=== PATIENT | female | born 1960 | race Caucasian/White ===

== ENCOUNTER 2017-01-16 02:31 | Inpatient (IN) | payer BC, OTHER ==
[~2017-01-16] VITALS: Ht 160 cm; Wt 76.7 kg
[2017-01-16] VITALS (9 sets, daily range): BP systolic 91–134; BP diastolic 61–79; PULSE 75–91; TEMP 36.7–37.1; O2SAT 92–97; BMI 29.7
[2017-01-16] MEDS ORDERED: LORAZEPAM 2 MG/ML 1 ML VIAL IV STA (02:43)
[2017-01-16] MEDS ORDERED: MoRPHine SULFATE 4 MG/ML 1 ML CARP\\VIAL IV ONE (03:30)
[2017-01-16 03:45] LABS: BASO % 0.3 %; BASO ABS # 0.04 K/uL (0-0.2); COMPLETE YES; EOS % 0.7 %; HEMATOCRIT 37.9 % (37-47); IG% 0.7 %; LYMPH % 26.4 %; MEAN CELL VOLUME 85.7 fL (80-100); MEAN CORPUSCULAR HGB CONC 33.8 g/dl (32-36); MEAN PLATELET VOLUME 10.8 fL (7.4-10.4); MONO % 11.4 %; NEUT % 60.5 %; PLATELET COUNT 232 K/uL (130-400); RED BLOOD COUNT 4.42 M/uL (4.2-5.4)
[2017-01-16 03:57] LABS: PROTHROMBIN TIME (PATIENT) 10.7 SECONDS (9.0-12.0)
[2017-01-16 04:03] LABS: BUN/CREATININE RATIO 15.4 (10-20); CALCIUM 8.5 mg/dl (8.5-10.1); CREATININE 1.25 mg/dl (0.60-1.20); POTASSIUM 3.5 mmol/L (3.5-5.1)
[2017-01-16 04:05] LABS: ALB/GLOB RATIO 1.1 (0.9-2)
[2017-01-16 04:13] LABS: BETA-HYDROXYBUTYRATE 1.36 mg/dL (0.2-2.81)
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
[2017-01-16] MEDS ORDERED: INSULIN GLARGINE SOLOSTAR 100 UNITS/ML 3 ML PEN SC STA (06:30)
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
[2017-01-16] MEDS ORDERED: SODIUM CHLORIDE 0.9% 1000ML 1,000 ML IV SCH ×2 (06:45→12:57)
[2017-01-16] MEDS ORDERED: CLOP1TAB15 PO (06:47)
[2017-01-16] MEDS ORDERED: PREG100C PO (06:48)
[2017-01-16] MEDS ORDERED: FURO-85 PO (06:48)
[2017-01-16] MEDS ORDERED: LISI40TA PO (06:48)
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
--- NOTE | 2017-01-16 06:49 | DIAGNOSTIC IMAGING REPORT ---
CHEST ONE VIEW PORTABLE CLINICAL HISTORY: Fall. Hypoxia trauma COMPARISON STUDY: No previous studies for comparison. FINDINGS: Prior median sternotomy. Mild cardiomegaly. Lungs are clear. Diaphragms smooth. IMPRESSION: Negative chest. The above report was generated using voice recognition software. It may contain grammatical, syntax or spelling errors. Electronically signed by: Bird Spence M.D. 01/16/2017 6:48 AM Dictated Date/Time: 01/16/2017 6:47 AM
[2017-01-16] MEDS ORDERED: METO50TA16 PO (06:50)
[2017-01-16] MEDS ORDERED: RANI300T2 PO (06:50)
[2017-01-16] MEDS ORDERED: PRLSR20 PO (06:50)
[2017-01-16] MEDS ORDERED: ZOLP10TA6 PO (06:51)
[2017-01-16] MEDS ORDERED: ATOR-26 PO (06:51)
[2017-01-16] MEDS ORDERED: SERT50TA PO (06:51)
[2017-01-16] MEDS ORDERED: LORA-741 PO (06:51)
[2017-01-16] MEDS ORDERED: MULT-1042 PO (06:51)
[2017-01-16] MEDS ORDERED: OXYC-106 PO (06:52)
[2017-01-16] MEDS ORDERED: VITATAB11 PO (06:52)
[2017-01-16] MEDS ORDERED: CYAN500T PO (06:52)
[2017-01-16] MEDS ORDERED: ASPI-435 PO (06:52)
[2017-01-16] MEDS ORDERED: NVLGI/PEN SQ (06:53)
--- NOTE | 2017-01-16 06:53 | DIAGNOSTIC IMAGING REPORT ---
R ANKLE MIN 3 VIEWS ROUTINE HISTORY: 56 years-old Female right ankle injury acute right ankle pain status post trauma COMPARISON: None available TECHNIQUE: 3 views of the right ankle FINDINGS: Bones appear mildly demineralized. There is moderate soft tissue swelling about the ankle with probable ankle joint effusion. Mildly comminuted fracture of the medial malleolus is noted with proximal medial tibial metaphysis displaced 6 mm medially. Fracture lines extend into the medial clear space. Acute comminuted angulated and mildly displaced fracture of the distal fibula is noted with fracture lines extending into the distal tibiofibular syndesmosis at the level of the talar dome. There is 3 mm lateral and 2 mm posterior displacement of the distal fracture fragment with 20 degrees apex medial and 20 degrees apex volar angulation. Posterior malleolar fracture is noted as well with mild displacement. Moderate spurring of the calcaneus. IMPRESSION: 1. Acute comminuted mildly displaced and angulated trimalleolar fracture as above with moderate soft tissue swelling. 2. Mildly demineralized appearance of the bones. The above report was generated using voice recognition software. It may contain grammatical, syntax or spelling errors. Electronically signed by: Rick Wu M.D. 01/16/2017 6:52 AM Dictated Date/Time: 01/16/2017 6:48 AM
[2017-01-16] MEDS ORDERED: INSULIN ASPART 100 UNITS/ML 3 ML PEN SC SCH ×2 (07:04→11:00)
[2017-01-16] MEDS ORDERED: GLUCOSE 10 TABS/TUBE PO PRN (07:15)
[2017-01-16] MEDS ORDERED: NITROGLYCERIN 0.4 MG SL PER TAB CHARGE SL PRN (07:15)
[2017-01-16] MEDS ORDERED: HYDROmorphone INJ 0.5 MG/0.5 ML SYR IV PRN ×2 (07:15→08:00)
[2017-01-16] MEDS ORDERED: GLUCOSE 40% GEL 15 GM TUBE PO PRN (07:15)
[2017-01-16] MEDS ORDERED: GLUCAGON FOR INJ 1 MG VIAL SQ PRN (07:15)
[2017-01-16] MEDS ORDERED: LORAZEPAM 2 MG/ML 1 ML VIAL IV PRN ×2 (07:15→08:00)
[2017-01-16] MEDS ORDERED: LEVALBUTEROL/IPRATROPIUM NEB INH PRN (07:15)
[2017-01-16] MEDS ORDERED: DEXTROSE 50% 50 ML SYR IV PRN (07:15)
[2017-01-16] MEDS ORDERED: OXYCODONE/ACETAMINOPHEN 5-325 TAB PO PRN ×2 (07:15→08:00)
[2017-01-16] MEDS ORDERED: PROCHLORPERAZINE INJ 5 MG in SYRINGE 4 ML IV PRN (07:15)
[2017-01-16] MEDS ORDERED: ACETAMINOPHEN 325 MG TAB PO PRN (07:15)
[2017-01-16] MEDS ORDERED: OPTIRAY 320 IV PRN (07:30)
[2017-01-16 07:32] LABS: ARTERIAL BLD GAS O2 SATURATION 92.3 % (90-95); ARTERIAL BLOOD GAS BASE EXCESS 3.2 mEq/L (-9-1.8); ARTERIAL BLOOD GAS HCO3 30 mmol/L (19-24); ARTERIAL BLOOD GAS PO2 77 mm/Hg (80-95); ARTERIAL BLOOD GAS pH 7.35 (7.35-7.45)
[2017-01-16 07:33] LABS: ALLEN TEST POS (POS); O2 ADMINISTRATION 2L
[2017-01-16] MEDS ORDERED: LEVALBUTEROL/IPRATROPIUM NEB INH STA (07:55)
[2017-01-16] MEDS ORDERED: LEVALBUTEROL 1.25MG/0.5ML NEB INH PRN (08:00)
[2017-01-16] MEDS ORDERED: IPRATROPIUM BROMIDE NEB SOLN 0.02% 2.5 ML VIAL INH PRN (08:00)
[2017-01-16 08:01] LABS: MAGNESIUM 1.9 mg/dl (1.8-2.4); THYROID STIMULATING HORMONE 1.48 uIu/ml (0.300-4.500)
[2017-01-16] MEDS ORDERED: LEVALBUTEROL 1.25MG/0.5ML NEB INH SCH (08:15)
[2017-01-16] MEDS ORDERED: IPRATROPIUM BROMIDE NEB SOLN 0.02% 2.5 ML VIAL INH SCH (08:15)
[2017-01-16] MEDS ORDERED: METOPROLOL TARTRATE 25 MG TAB PO SCH ×2 (09:00→21:00)
--- NOTE | 2017-01-16 09:29 | DIAGNOSTIC IMAGING REPORT ---
(CHEST FOR PE) ANGIO WITH CT DOSE: 298.08 mGy.cm HISTORY: Chest pain hypoxia TECHNIQUE: Multiaxial CT images of the chest were performed following the intravenous administration of contrast to evaluate the pulmonary arteries. Maximal intensity projection images were also obtained. A dose lowering technique was utilized adhering to the principles of ALARA. COMPARISON STUDY: None FINDINGS: Prior median sternotomy. Mild atherosclerotic change thoracic aorta. No evidence for aneurysm or dissection. Pulmonary arterial vasculature enhances appropriately. No significant filling defects. Mild bibasilar atelectatic and pleural reactive change. No well-defined focal infiltrate. IMPRESSION: 1. Study is negative for pulmonary embolus. 2. Mild bibasilar atelectatic and pleural reactive change. 3. No well-defined focal infiltrate. The above report was generated using voice recognition software. It may contain grammatical, syntax or spelling errors. Electronically signed by: Bird Spence M.D. 01/16/2017 9:28 AM Dictated Date/Time: 01/16/2017 9:24 AM
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
[2017-01-16] MEDS: NSS + 20MEQ KCL 1000ML 1,000 ML IV SCH (09:50)
[2017-01-16] MEDS: PANTOprazole SOD 40 MG TAB PO SCH (09:51)
[2017-01-16] MEDS: CEROVITE ADV FORMULA TAB PO SCH (09:51)
[2017-01-16] MEDS: ATORVASTATIN 40 MG TAB PO SCH (09:52)
[2017-01-16] MEDS: RANITIDINE HCL 150 MG TAB PO SCH (09:52)
[2017-01-16] MEDS ORDERED: INSULIN ASPART 100 UNITS/ML 3 ML PEN SC ONE (09:58)
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
[2017-01-16 10:52] LABS: URINE APPEARANCE CLEAR (CLEAR); URINE BILIRUBIN NEG (NEG); URINE COLOR YELLOW; URINE NITRITE NEG (NEG); URINE PH 5.5 (4.5-7.5); URINE SPECIFIC GRAVITY 1.039 (1.000-1.030); UROBILINOGEN NEG (NEG); ZZUR CULT IF INDIC CLEAN CATCH NO
[2017-01-16 11:01] LABS: MANUAL MICROSCOPIC REQUIRED? NO; REVIEW REQ? NO
[2017-01-16] MEDS ORDERED: PERFLUTREN LIPID MICROSPHERE (DEFINITY) IV ONE (11:08)
[2017-01-16 11:31] LABS: BENZODIAZEPINE, URINE NEG (NEG); COCAINE,URINE NEG (NEG); PHENCYCLIDINE, URINE NEG (NEG)
[2017-01-16 11:33] LABS: CKMB/CK RATIO 1.2 (0-3.0)
--- NOTE | 2017-01-16 12:12 | ECHOCARDIOGRAM REPORT ---
*NOTICE TO RECEIVING REPUBLICAN AGENCY This information is strictly Confidential and protected under [place] law. [place] law prohibits you from making any further disclosure of this information unless further disclosure is expressly permitted by the written consent of the person to whom it pertains or is authorized by law. A general authorization for the release of medical or other information is not sufficient for this purpose. Hospital accepts no responsibility if the information is made available to any other person, INCLUDING THE PATIENT. Interpretation Summary * Name: MARSHA WILDE Study Date: 01/16/2017 10:38 AM BP: 134/79 mmHg * Patient Location: C.2T\S\E217\S\1 HR: 79 * : 1960 (M/d/yyyy) Gender: Female Height: 63 in * Age: 56 yrs Ethnicity: CA Weight: 167 lb * Ordering Physician: Madison Borden * Referring Physician: Self, Referred * Performed By: Dorothea Mccarthy RCS * * Reason For Study: PRE-OP / ABNORMAL EKG / H/O CABG * BSA: 1.8 m2 * The study was technically adequate. * There is no comparison study available. * -- Conclusions -- * Left ventricular systolic function is normal. * Ejection Fraction = 55-60%. * Septal motion is consistent with post-operative state. * The base and mid posterior wall is hypokinetic. * There is mild mitral regurgitation. Procedure Details * A complete two-dimensional transthoracic echocardiogram was performed (2D, M-mode, Doppler and color flow Doppler). * A contrast injection of Definity was performed to improve assessment of LV function. * Contrast was injected into an intravenous site in the right arm. * One vial of Definity ultrasound contrast was diluted in normal saline to a total volume of 10 ml. A total of '2' ml of solution was administered during imaging. * Lot # [id number] of Definity utilized for procedure. * Expiration date 1 APR 03. * The attending nurse who injected the contrast agent was ECHO POND, RN. Left Ventricle * The left ventricle is normal in size. * There is moderate concentric left ventricular hypertrophy. * Left ventricular systolic function is normal. * Ejection Fraction = 55-60%. * Septal motion is consistent with post-operative state. * The base and mid posterior wall is hypokinetic. Right Ventricle * The right ventricle is normal size. * The right ventricular systolic function is normal as assessed by tricuspid annular plane systolic excursion (TAPSE) (normal >1.5 cm). Atria * The left atrium is mildly dilated. * Right atrial size is normal. * There is no evidence of atrial septal defect, but resolution does not allow assessment for a patent foramen ovale. Mitral Valve * The mitral valve is normal. * There is no mitral valve stenosis. * There is mild mitral regurgitation. Tricuspid Valve * The tricuspid valve is normal. * There is no tricuspid stenosis. * There is trace tricuspid regurgitation. Aortic Valve * The aortic valve is not well visualized. * Aortic stenosis is absent. * There is no significant aortic regurgitation. Pulmonic Valve * The pulmonary valve is not well seen, but the Doppler examination is normal without significant regurgitation or stenosis. Great Vessels * The aortic root is normal size. Pericardium/Pleural * There is no pericardial effusion. Great Vessels * Normal inferior vena cava diameter and respiratory variation suggests normal central venous pressure. Left Ventricular Diastolic Function * Diastolic dysfunction, Grade II (pseudonormalization pattern). MMode 2D Measurements and Calculations IVSd 1.4 cm IVSs 1.8 cm LVIDd 4.2 cm LVIDs 3.1 cm LVPWd 1.5 cm LVPWs 1.3 cm IVS/LVPW 0.91 FS 27.1 % EDV(Teich) 78.2 ml ESV(Teich) 36.6 ml EF(Teich) 53.3 % EDV(cubed) 73.7 ml ESV(cubed) 28.5 ml EF(cubed) 61.3 % % IVS thick 31.5 % % LVPW thick -11.47 % LV mass(C)d 230.5 grams LV mass(C)dI 128.7 grams/m\S\2 LV mass(C)s 171.9 grams LV mass(C)sI 96.0 grams/m\S\2 SV(Teich) 41.7 ml SI(Teich) 23.3 ml/m\S\2 SV(cubed) 45.2 ml SI(cubed) 25.2 ml/m\S\2 Ao root diam 2.5 cm Ao root area 5.0 cm\S\2 ACS 1.6 cm LA dimension 3.2 cm LA/Ao 1.3 LVOT diam 1.9 cm LVOT area 2.8 cm\S\2 LVAd ap4 33.8 cm\S\2 LVLd ap4 7.2 cm EDV(MOD-sp4) 126.8 ml EDV(sp4-el) 134.7 ml LVAs ap4 21.8 cm\S\2 LVLs ap4 6.5 cm ESV(MOD-sp4) 60.7 ml ESV(sp4-el) 62.3 ml EF(MOD-sp4) 52.2 % EF(sp4-el) 53.7 % LVAd ap2 36.2 cm\S\2 LVLd ap2 7.5 cm EDV(MOD-sp2) 142.1 ml EDV(sp2-el) 147.8 ml LVAs ap2 25.8 cm\S\2 LVLs ap2 7.1 cm ESV(MOD-sp2) 78.7 ml ESV(sp2-el) 80.1 ml EF(MOD-sp2) 44.6 % EF(sp2-el) 45.8 % LVLd %diff 4.4 % EDV(MOD-bp) 136.7 ml LVLs %diff 8.7 % ESV(MOD-bp) 72.3 ml EF(MOD-bp) 47.1 % SV(MOD-sp4) 66.2 ml SI(MOD-sp4) 36.9 ml/m\S\2 SV(MOD-sp2) 63.4 ml SI(MOD-sp2) 35.4 ml/m\S\2 SV(MOD-bp) 64.4 ml SI(MOD-bp) 35.9 ml/m\S\2 SV(sp4-el) 72.4 ml SI(sp4-el) 40.4 ml/m\S\2 SV(sp2-el) 67.7 ml SI(sp2-el) 37.8 ml/m\S\2 Doppler Measurements and Calculations MV E max radha 104.6 cm/sec MV A max radha 107.8 cm/sec MV E/A 0.97 MV P1/2t max radha 119.1 cm/sec MV P1/2t 63.3 msec MVA(P1/2t) 3.5 cm\S\2 MV dec slope 551.0 cm/sec\S\2 MV dec time 0.28 sec Ao V2 max 159.2 cm/sec Ao max PG 10.1 mmHg Ao max PG (full) 6.5 mmHg MATT(V,A) 1.7 cm\S\2 MATT(V,D) 1.7 cm\S\2 LV V1 max PG 3.6 mmHg LV V1 max 95.4 cm/sec MR max radha 454.2 cm/sec MR max PG 82.5 mmHg PA V2 max 93.2 cm/sec PA max PG 3.5 mmHg
[2017-01-16] MEDS: TRAMADOL HCL 50 MG TAB PO PRN (12:43)
[2017-01-16] MEDS ORDERED: ACETAMINOPHEN IV 1,000 MG in EMPTY BAG 0 ML IV STA (12:43)
[2017-01-16] MEDS ORDERED: DiphenhydrAMINE HCL 50 MG/ML VIAL IV PRN (13:00)
[2017-01-16] MEDS ORDERED: HYDROmorphone HCL 0.5MG/ML 50 ML CASSETTE IV PRN (13:00)
[2017-01-16] MEDS ORDERED: NALOXONE HCL 0.4 MG/1 ML VIAL/CARP IV PRN (13:00)
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
[2017-01-16] MEDS: INSULIN ASPART 100 UNITS/ML 3 ML PEN SC SCH ×2 (16:52→21:17)
--- NOTE | 2017-01-16 18:17 | Progress Note ---
Progress Note Date of Service Jan 16, 2017. Progress Note Patient was evaluated at [facility] initially for Acute comminuted mildly displaced and angulated trimalleolar fracture of right ankle Patient's orthopedic surgery with orthopedics Dr. Rogel needed to be re- scheduled for 01/17/17 because patient was very drowsy with pulmonary service evaluating the patient for hypoxia. In addition patient's troponin hortensia from 0.03 to 0.33. Discussed with cardiology service in regards for hypoxia, and gis analyst suggests that troponin likely due to hypoxia. Cardiac echo on 01/16/17 * Left ventricular systolic function is normal. * Ejection Fraction = 55-60%. * Septal motion is consistent with post-operative state. * The base and mid posterior wall is hypokinetic. * There is mild mitral regurgitation. Assessment & Plan 1. Preoperative cardiology evaluation and risk assessment prior to surgical fixation of right ankle. 2. History of CABG (details unknown) - presumably at [facility]. Unknown if she follows with cardiology routinely 3. Severe MR per echo 11/2016 4. Hypertension - controlled 5. History of acute hypoxia respiratory failure - hypoxic on admission. No signs of CHF exacerbation. 6. Abnormal EKG with inferior infarct and lateral T wave inversions - new compared to prior EKG from Oct 2016. Update echo. Trend troponin. She is unable to provide review of systems for concerns of chest pain. Subsequent third troponin downtrending to 0.248. Patient persistently has denied chest pain. When re-assessed this evening, patient's mental status improved despite being intermittently being on narcotic pain medication for ankle pain and mental status improved without use of BIPAP. Continues to deny chest pain Patient also reports that she was following at [facility] with a Dr. Christiano Simon (primary care doctor) and Dr. Sheth (cardiology) and was recently told that she should get cardiac cath. Patient denies known history of heart attack but was told of cardiac cath because of complaints of chest pain. Discussed this with cardiology tension machine operator Dr. Cota. As per Dr. Cota, keep patient NPO At this time it is unclear whether patient should proceed to ankle surgery by orthopedics tomorrow
[2017-01-16] MEDS: ACETAMINOPHEN IV 1,000 MG in EMPTY BAG 0 ML IV SCH (19:31)
[2017-01-16] MEDS ORDERED: NICOTINE 21 MG/24 HR TDSY TD ONE (22:18)
[2017-01-17] VITALS (8 sets, daily range): BP systolic 126–164; BP diastolic 80–86; PULSE 81–96; TEMP 36.8–37.2; O2SAT 96–98; BMI 29.1
[2017-01-17] MEDS: NSS + 20MEQ KCL 1000ML 1,000 ML IV SCH
[2017-01-17] MEDS ORDERED: NALOXONE HCL 0.4 MG/1 ML VIAL/CARP IV STA (00:19)
[2017-01-17] MEDS ORDERED: SODIUM CHLORIDE 0.9% 250ML 250 ML IV ONE ×2 (00:30→01:00)
[2017-01-17] MEDS: TRAMADOL HCL 50 MG TAB PO PRN ×4 (00:55→22:42)
--- NOTE | 2017-01-17 01:02 | Progress Note ---
Internal Med Progress Note Date of Service: Jan 17, 2017. Provider Documentation: Made aware by RN of px decreasing responsiveness, hypotension, oxygenation in early a.m. Patient improvement after Narcan administration as per RN. Appropriate to hold Dilaudid STRAP STITCHER pump for now. Vital Signs: Date Time Temp Pulse Resp B/P (MAP) Pulse Ox O2 Delivery O2 Flow Rate FiO2 01/17/17 08:00 36.8 88 16 152/84 (106) 98 Nasal Cannula 2.0 01/17/17 08:00 98 Nasal Cannula 2.0 01/17/17 04:16 36.9 92 22 126/80 (95) 98 Nasal Cannula 2.0 01/17/17 04:00 Nasal Cannula 2.0 01/17/17 01:30 87 24 136/80 (98) 96 Nasal Cannula 2.0 01/16/17 23:59 Nasal Cannula 2.0 01/16/17 23:58 36.9 83 16 91/61 (71) 97 BiPAP 40 01/16/17 22:32 88 92/64 (73) 94 BiPAP 40 01/16/17 21:45 85 94 40 01/16/17 20:00 Nasal Cannula 2.0 01/16/17 19:28 37.1 91 18 98/63 (75) 96 Nasal Cannula 2.0 01/16/17 16:15 36.7 85 20 110/71 (84) 92 BiPAP 01/16/17 16:00 Nasal Cannula 2.0 01/16/17 14:10 101/69 (80) 01/16/17 13:10 87 93 40 01/16/17 12:00 BiPAP 40 01/16/17 11:46 36.8 75 20 99/67 (78) 96 Lab Results: Results Past 24 Hours Test 01/16/17 10:25 01/16/17 10:40 01/16/17 11:07 01/16/17 16:06 Range/Units Urine Color YELLOW Urine Appearance CLEAR CLEAR Urine pH 5.5 4.5-7.5 Urine Specific Brandt 1.039 1.000-1.030 Urine Protein NEG NEG Urine Glucose (UA) TRACE NEG Urine Ketones NEG NEG Urine Occult Blood NEG NEG Urine Nitrite NEG NEG Urine Bilirubin NEG NEG Urine Urobilinogen NEG NEG Urine Leukocyte Esterase NEG NEG Urine Opiates Screen POS NEG Urine Methadone, Qualitative NEG NEG Urine Barbiturates NEG NEG Urine Phencyclidine (PCP) Level NEG NEG Ur Amphetamine/Methamphetamine NEG NEG MDMA (Ecstasy) Screen NEG NEG Urine Benzodiazepines Screen NEG NEG Urine Cocaine Metabolite NEG NEG Urine Marijuana (THC) NEG NEG Total Creatine Kinase 199 26-192 U/L Creatine Kinase MB 2.3 0.5-3.6 ng/ml Creatine Kinase MB Ratio 1.2 0-3.0 Troponin I 0.330 0-0.045 ng/ml Bedside Glucose 215 218 70-90 mg/dl Test 01/16/17 16:57 01/16/17 19:56 01/16/17 22:52 01/17/17 00:48 Range/Units Troponin I 0.248 0.182 0-0.045 ng/ml Bedside Glucose 265 70-90 mg/dl Arterial Blood pH 7.40 7.35-7.45 Arterial Blood Partial Pressure CO2 45 35-46 mmHg Arterial Blood Partial Pressure O2 63 80-95 mm/Hg Arterial Blood HCO3 27 19-24 mmol/L Arterial Blood Oxygen Saturation 90.3 90-95 % Arterial Blood Base Excess 2.1 -9-1.8 mEq/L Arterial Blood Gas Delivery ROOM AIR Christopher Test POS POS Lactic Acid Level 0.9 0.4-2.0 mmol/L Ammonia 27.0 11-32 umol/L Test 01/17/17 01:22 01/17/17 05:35 01/17/17 09:11 Range/Units Bedside Glucose 141 203 70-90 mg/dl
[2017-01-17] MEDS ORDERED: INSULIN ASPART 100 UNITS/ML 3 ML PEN SC ONE (01:03)
[2017-01-17] MEDS ORDERED: INSULIN GLARGINE SOLOSTAR 100 UNITS/ML 3 ML PEN SC ONE (01:04)
[2017-01-17 01:14] LABS: ARTERIAL BLD GAS O2 SATURATION 90.3 % (90-95); ARTERIAL BLOOD GAS BASE EXCESS 2.1 mEq/L (-9-1.8); ARTERIAL BLOOD GAS HCO3 27 mmol/L (19-24); ARTERIAL BLOOD GAS PO2 63 mm/Hg (80-95)
[2017-01-17 01:15] LABS: ALLEN TEST POS (POS); O2 ADMINISTRATION ROOM AIR
[2017-01-17] MEDS: LORAZEPAM 2 MG/ML 1 ML VIAL IV PRN ×3 (01:39→10:13)
[2017-01-17] MEDS: HYDROmorphone INJ 0.5 MG/0.5 ML SYR IV PRN ×3 (02:28→12:32)
[2017-01-17] MEDS: ACETAMINOPHEN IV 1,000 MG in EMPTY BAG 0 ML IV SCH (04:23)
[2017-01-17] MEDS: INSULIN ASPART 100 UNITS/ML 3 ML PEN SC SCH ×3 (05:38→18:00)
--- NOTE | 2017-01-17 07:16 | DIAGNOSTIC IMAGING REPORT ---
CHEST ONE VIEW PORTABLE CLINICAL HISTORY: Hypoxia. COMPARISON STUDY: Chest radiograph and chest CT January 16, 2017. FINDINGS: Note is made of median sternotomy wires and clips from bypass grafting. Cardiomediastinal silhouette is stable. There is no evidence of pulmonary edema. No pneumothorax or pleural effusion is present. Linear left basilar opacity favors atelectasis. There is no consolidation to suggest pneumonia. IMPRESSION: 1. Linear left lower lung opacity suggestive of atelectasis. 2. No consolidation to suggest pneumonia. No evidence of pulmonary edema. Electronically signed by: Grover Delacruz M.D. 01/17/2017 7:14 AM Dictated Date/Time: 01/17/2017 7:12 AM
--- NOTE | 2017-01-17 07:35 | PROGRESS NOTE ---
DATE: 01/17/2017 CHIEF COMPLAINT: Right unstable trimalleolar ankle fracture. PROGRESS: Rizwana was seen and examined at bedside today. She is very sedated. She keeps falling asleep during our conversation. She was not sure who I was and I kept repeating myself, but she kept forgetting. She does say that she has a lot of pain in her ankle and she was concerned she was not getting enough pain medications. Pulmonology, psychiatry and cardiology have all been consulted as well. PHYSICAL EXAMINATION OF RIGHT ANKLE: Her right ankle is elevated above the heart as it should be. The trauma splint in place. I am unable to get her to cooperate with a neurologic examination. IMPRESSION: Unstable right trimalleolar ankle fracture. PLAN: This is an unstable ankle fracture that will likely require surgical fixation with plate and screws. The case takes about an hour and can be done under a spinal anesthetic if needed. This is also not an emergent case. This can be fixed within the next 2 weeks with similar outcomes. However, she is already in the hospital, we would like to fix her while she is here to speed up her recovery. We are awaiting cardiology, pulmonary and medicine clearance before I can proceed. She is currently n.p.o. and on the schedule for later this afternoon. This is all pending medical clearance.
[2017-01-17] MEDS: ATORVASTATIN 40 MG TAB PO SCH (07:55)
[2017-01-17] MEDS: NICOTINE 21 MG/24 HR TDSY TD SCH (07:56)
[2017-01-17] MEDS: CEROVITE ADV FORMULA TAB PO SCH (07:56)
[2017-01-17] MEDS: RANITIDINE HCL 150 MG TAB PO SCH (07:56)
[2017-01-17] MEDS: PANTOprazole SOD 40 MG TAB PO SCH (07:56)
[2017-01-17] MEDS: INSULIN GLARGINE SOLOSTAR 100 UNITS/ML 3 ML PEN SC SCH ×2 (07:58→19:56)
[2017-01-17] MEDS ORDERED: INSULIN GLARGINE SOLOSTAR 100 UNITS/ML 3 ML PEN SC SCH (09:00)
[2017-01-17] MEDS ORDERED: METOPROLOL TARTRATE 25 MG TAB PO SCH ×2 (09:00→21:00)
[2017-01-17 09:29] LABS: BASO % 0.2 %; BASO ABS # 0.03 K/uL (0-0.2); COMPLETE YES; EOS % 0.5 %; HEMATOCRIT 34.6 % (37-47); IG% 0.6 %; LYMPH % 15.8 %; LYMPH ABS # 2.23 K/uL (1.2-3.4); MEAN CELL VOLUME 87.4 fL (80-100); MEAN CORPUSCULAR HEMOGLOBIN 28.5 pg (25-34); MEAN CORPUSCULAR HGB CONC 32.7 g/dl (32-36); MEAN PLATELET VOLUME 10.4 fL (7.4-10.4); MONO % 17.5 %; NEUT % 65.4 %; PLATELET COUNT 209 K/uL (130-400); RED BLOOD COUNT 3.96 M/uL (4.2-5.4); WHITE BLOOD COUNT 14.11 K/uL (4.8-10.8)
[2017-01-17] MEDS ORDERED: METOPROLOL TARTRATE 25 MG TAB PO ONE (10:00)
[2017-01-17 10:05] LABS: BUN/CREATININE RATIO 24.5 (10-20); CALCIUM 8.5 mg/dl (8.5-10.1); CREATININE 0.87 mg/dl (0.60-1.20)
[2017-01-17 10:10] LABS: ESTIMATED AVERAGE GLUCOSE 217 mg/dl; HA1C FLAG Normal (Normal)
--- NOTE | 2017-01-17 10:50 | CARDIOLOGY PROGRESS NOTE ---
DATE: 01/17/2017 SUBJECTIVE: The patient was seen and examined at the bedside. She is more alert today. She discussed her cardiac history with the hospitalist overnight. She was seen by Dr. Sheth in [place]. The patient was evaluated in his office with a stress test, which was found to be abnormal. The nuclear stress demonstrated posterior and lateral infarct with brandon-infarct ischemia. There was also a focal area of basal septal ischemia. The patient described atypical chest discomfort intermittently, not associated with exertion as well as chronic dyspnea on exertion. There was consideration for cardiac catheterization. Today, the patient reports significant right ankle discomfort. She denies chest pain or shortness of breath. When questioning her regarding her daily activities, she is able to climb stairs and perform her housework without restriction, shortness of breath, or chest discomfort (greater than 4 mets per history). Denies orthopnea, PND or lower extremity edema. Her cardiac enzymes have trended downward. Her resting 2D transthoracic echo demonstrates no new regional wall motion abnormalities, mitral regurgitation is mild. REVIEW OF SYSTEMS: The pertinent positives noted above. A 5-system review including cardiovascular, pulmonary, gastroenterologic, neurologic, and endocrinologic systems was otherwise negative. MEDICATIONS: Reviewed via EMR: Metoprolol reduced to 12.5 mg twice daily. LABORATORY DATA: Repeat troponin this morning was 0.182. White blood cell count is 14.11, hemoglobin is 11.3, and platelet count is 209. Telemetry demonstrates sinus rhythm without dysrhythmia. PHYSICAL EXAMINATION: VITAL SIGNS: Temperature is 36.2 degrees centigrade, pulse 88 beats per minute and regular, respiratory rate 16 breaths per minute, and blood pressure is currently 152/84. SaO2 is 98% on 2 liters. GENERAL: NAD. Right ankle discomfort noted. HEENT: Mucous membranes are moist. No scleral icterus. Conjunctivae pink. NECK: Supple without JVD or HJR. No carotid bruit. HEART: Regular with a normal S1 and S2. There is a 2/6 holosystolic murmur heard at the left ventricular apex. ABDOMEN: Soft and nontender. No rebound or guarding. EXTREMITIES: Warm and dry without clubbing, cyanosis, or edema. The right lower ankle is immobilized with Deonte bandage. LUNGS: Clear without rales, rhonchi or wheeze. NEUROLOGIC: Demonstrates no focal motor deficit. FINAL IMPRESSION: 1. A 56-year-old female with acute ankle fracture, considered high perioperative cardiac risk due to chronic underlying coronary artery disease and an abnormal nuclear stress testing demonstrating posterior lateral infarct with mild brandon-infarct ischemia as well as a focal point of basal septal ischemia. The patient's perioperative cardiovascular risk was discussed with her at the bedside. 2. Mild mitral regurgitation. 3. History of moderate right-sided carotid vascular disease. 4. Dyslipidemia. 5. History of prior posterior infarct with preserved left ventricular systolic function - the patient appears compensated and euvolemic. 6. History of prior coronary artery bypass grafting -- details unknown. 7. Acute hypoxic respiratory failure on admission secondary to narcotics. 8. Mildly elevated troponins secondary to suspected type 2 event (hypoxia). PLAN AND RECOMMENDATIONS: I had a long discussion with the patient at bedside. I have contacted her cook cold meat in [place] by phone and discussed the results of her recent cardiac testing as well as medications. It appears she was treated with dual antiplatelet therapy up until admission. Recommend aspirin be restarted at this time if bleeding risk is acceptable to the surgeon. Beta raymond will be increased to 25 mg twice daily as previously recommended. This medication should be continued uninterrupted perioperatively. The patient requires surgery for pain control and correction of acute fracture. She understands her elevated cardiovascular risks perioperatively. She states she is willing to proceed at this time. Other medications will be continued as previously ordered. Case discussed with anesthesia service. VERA
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
--- NOTE | 2017-01-17 12:50 | Pulmonology Progress Note ---
Pulmonary Progress Note Date of Service Jan 17, 2017. Attending Dr. Brewer Subjective Patient seen and examined this morning. Her main complaint is right lower extremity pain. She states that she has occasional cough with productive whitish phlegm. She denies any chest pain, shortness of breath or dyspnea on exertion. Overnight patient was on HEEL SHAVER pump but was noted to be oversedated with hypoventilation. She was placed on BiPAP and given Narcan. She is requesting to see daughter, who entered the room after examination. Objective Vital signs reviewed. MAXIMUM TEMPERATURE 37, blood pressure 126/80 to 152/84 , pulse 81-92, respiratory rate 16-24, pulse oximetry 96-98% on 2 L nasal cannula. Gen.: Awake alert oriented 3, appears to be in pain, holding onto her right leg and tearful. CVS: S1-S2, regular rate and rhythm Lungs: Clear to auscultation bilaterally Abdomen: Soft, nontender, nondistended bowel sounds positive Extremities: Right lower extremity in splint Labs reviewed Blood cell count 14 stable from yesterday. Hemoglobin 11. BUN 21, creatinine 0.87. Troponin trending down. It was 0.330, now 0.10 this morning. ABG this morning 7.4/45/63/27/90.3% on room air Blood cultures from 01/16/2017-pending Imaging reviewed Medications reviewed Assessment & Plan Tobacco use disorder Hypoxemic hypercapnic respiratory failure Right ankle fracture Mrs. Welch is a 56-year-old female with current tobacco use disorder who presented with right ankle pain status post fall. Found to have right ankle fracture. Also noted to be hypoxic after she received fentanyl en route to the hospital. Patient received Dilaudid more obtunded. This was later discontinued and she was placed on BiPAP. Patient is obviously in more pain today but more alert. Of note patient also had elevated troponins, likely secondary to hypoxemia. Patient likely has a component of obstructive sleep apnea exacerbated by anxiolytics and narcotic pain medications. Recommendations I will continue his supplemental oxygen to maintain a SaO2 above 92%. At this point, I would be judicious with narcotics and anxiolytics as this can precipitate and worsening ISAURA. Use pain medications when necessary. She should have a nocturnal oximetry done to evaluate for nocturnal desaturations. A formal polysomnography examination should be done as an outpatient. Encourage incentive spirometry postoperatively. She may benefit from BiPAP in the perioperative period. Optimization of cardiac meds for adequate BP control, per primary team and cardiology. I will signoff case today. Please contact if you've any further questions or concerns. Data Medications: Current Inpatient Medications Medications (Trade) Dose Ordered Sig/Moises Route Start Time Stop Time Status Last Admin Dose Admin Potassium Chloride/Sodium Chloride 1,000 ml @ 40 mls/hr Q24H IV 01/16/17 08:30 02/15/17 08:29 01/17/17 00:00 40 MLS/HR Nitroglycerin (Nitrostat Tab) 0.4 mg UD PRN SL 01/16/17 07:15 02/15/17 07:14 Glucose (Glucose 40% Gel) 15-30 GRAMS 15 GRAMS... UD PRN PO 01/16/17 07:15 02/15/17 07:14 Glucose (Glucose Chew Tab) 4-8 Tablets 4 Tabl... UD PRN PO 01/16/17 07:15 02/15/17 07:14 Dextrose (Dextrose 50% 50ML Syringe) 25-50ML OF 50% DW IV FOR... UD PRN IV 01/16/17 07:15 02/15/17 07:14 Glucagon (Glucagon Inj) 1 mg UD PRN SQ 01/16/17 07:15 02/15/17 07:14 Atorvastatin Calcium (Lipitor Tab) 80 mg DAILY PO 01/16/17 09:00 02/15/17 08:59 01/17/17 07:55 80 MG Multivitamins/ Minerals (Multivitamin W/ Minerals Tab) 1 tab DAILY PO 01/16/17 09:00 02/15/17 08:59 01/17/17 07:56 1 TAB Ranitidine HCl (zANTac TAB) 300 mg DAILY PO 01/16/17 09:00 02/15/17 08:59 01/17/17 07:56 300 MG Pantoprazole Sodium (Protonix Tab) 40 mg DAILY PO 01/16/17 09:00 02/15/17 08:59 01/17/17 07:56 40 MG Prochlorperazine Edisylate 5 mg/ Syringe 5 ml @ 5 mls/min Q6H PRN IV 01/16/17 07:15 02/15/17 07:14 Ioversol (Optiray 320) 125 ml UD PRN IV 01/16/17 07:30 01/20/17 07:29 Ipratropium Falls (Atrovent 0.02% 0.5MG/2.5ML Neb) 0.5 mg Q4H PRN INH 01/16/17 08:00 02/15/17 07:59 Levalbuterol (Xopenex 1.25MG/ 0.5ML Neb) 1.25 mg Q4H PRN INH 01/16/17 08:00 02/15/17 07:59 Hydromorphone HCl (Dilaudid Inj) 0.5 mg Q4H PRN IV 01/16/17 08:00 01/30/17 07:14 Future Hold 01/16/17 08:13 0.5 MG Naloxone HCl (Narcan Inj) 0.1 mg Q5M PRN IV 01/16/17 13:00 02/15/17 12:59 Hydromorphone HCl (Dilaudid Files Supervisor) 25 mg PRN PRN IV 01/16/17 13:00 01/30/17 12:59 Future Hold 01/16/17 15:18 25 MG Sodium Chloride 1,000 ml @ 15 mls/hr Q24H IV 01/16/17 12:57 02/15/17 12:56 Future Hold 01/16/17 12:57 15 MLS/HR Diphenhydramine HCl (Benadryl Inj) 12.5 mg Q6 PRN IV 01/16/17 13:00 02/15/17 12:59 Nicotine (Nicoderm Cq 21MG Patch) 1 patch QAM TD 01/17/17 09:00 02/16/17 08:59 01/17/17 07:56 1 PATCH Miscellaneous (Remove Nicoderm Patch) 1 ea HS N/A 01/17/17 21:00 02/16/17 20:59 Hydromorphone HCl (Dilaudid Inj) 0.5 mg Q4H PRN IV 01/17/17 01:00 01/31/17 00:59 01/17/17 12:32 0.5 MG Insulin Aspart (novoLOG ASPART) SLIDING SCALE If C... Q6 SC 01/17/17 06:00 02/16/17 05:59 01/17/17 05:38 1 UNITS Insulin Glargine (Lantus Solostar Pen) 10 units BID SC 01/17/17 09:00 02/16/17 08:59 01/17/17 07:58 10 UNITS Lorazepam (Ativan Inj) 0.25 mg Q4H PRN IV 01/17/17 01:30 18 07:14 01/17/17 10:13 0.25 MG Tramadol HCl (Ultram Tab) not relieved by tylenol @ Q4H PRN PO 01/17/17 05:15 02/15/17 08:14 01/17/17 09:22 50 MG Acetaminophen (Tylenol Tab) 650 mg Q6H PRN PO 01/17/17 05:15 02/16/17 05:14 Metoprolol Tartrate (Lopressor Tab) 25 mg BID PO 01/17/17 21:00 02/16/17 20:59 I & O: 24-Hour Column 01/18/17 07:59 Intake Total 0 ml Balance 0 ml Vital Signs: Date Time Temp Pulse Resp B/P (MAP) Pulse Ox O2 Delivery O2 Flow Rate FiO2 01/17/17 12:00 98 Nasal Cannula 2.0 01/17/17 12:00 81 01/17/17 10:52 37.0 89 20 147/83 (104) 97 Nasal Cannula 2.0 01/17/17 08:00 36.8 88 16 152/84 (106) 98 Nasal Cannula 2.0 01/17/17 08:00 98 Nasal Cannula 2.0 01/17/17 04:16 36.9 92 22 126/80 (95) 98 Nasal Cannula 2.0 01/17/17 04:00 Nasal Cannula 2.0 01/17/17 01:30 87 24 136/80 (98) 96 Nasal Cannula 2.0 01/16/17 23:59 Nasal Cannula 2.0 01/16/17 23:58 36.9 83 16 91/61 (71) 97 BiPAP 40 01/16/17 22:32 88 92/64 (73) 94 BiPAP 40 01/16/17 21:45 85 94 40 01/16/17 20:00 Nasal Cannula 2.0 01/16/17 19:28 37.1 91 18 98/63 (75) 96 Nasal Cannula 2.0 01/16/17 16:15 36.7 85 20 110/71 (84) 92 BiPAP 01/16/17 16:00 Nasal Cannula 2.0 01/16/17 14:10 101/69 (80) 01/16/17 13:10 87 93 40 Laboratory Results: Last 24 Hours Test 01/16/17 16:06 01/16/17 16:57 01/16/17 19:56 01/16/17 22:52 Bedside Glucose 218 mg/dl 265 mg/dl Troponin I 0.248 ng/ml 0.182 ng/ml Test 01/17/17 00:48 01/17/17 01:22 01/17/17 05:35 01/17/17 09:11 Arterial Blood pH 7.40 Arterial Blood Partial Pressure CO2 45 mmHg Arterial Blood Partial Pressure O2 63 mm/Hg Arterial Blood HCO3 27 mmol/L Arterial Blood Oxygen Saturation 90.3 % Arterial Blood Base Excess 2.1 mEq/L Arterial Blood Gas Delivery ROOM AIR Christopher Test POS Lactic Acid Level 0.9 mmol/L Ammonia 27.0 umol/L Bedside Glucose 141 mg/dl 203 mg/dl White Blood Count 14.11 K/uL Red Blood Count 3.96 M/uL Hemoglobin 11.3 g/dL Hematocrit 34.6 % Mean Corpuscular Volume 87.4 fL Mean Corpuscular Hemoglobin 28.5 pg Mean Corpuscular Hemoglobin Concent 32.7 g/dl Platelet Count 209 K/uL Mean Platelet Volume 10.4 fL Neutrophils (%) (Auto) 65.4 % Lymphocytes (%) (Auto) 15.8 % Monocytes (%) (Auto) 17.5 % Eosinophils (%) (Auto) 0.5 % Basophils (%) (Auto) 0.2 % Neutrophils # (Auto) 9.23 K/uL Lymphocytes # (Auto) 2.23 K/uL Monocytes # (Auto) 2.47 K/uL Eosinophils # (Auto) 0.07 K/uL Basophils # (Auto) 0.03 K/uL RDW Standard Deviation 42.0 fL RDW Coefficient of Variation 13.0 % Immature Granulocyte % (Auto) 0.6 % Immature Granulocyte # (Auto) 0.08 K/uL Sodium Level 138 mmol/L Potassium Level 4.0 mmol/L Chloride Level 104 mmol/L Carbon Dioxide Level 30 mmol/L Anion Gap 4.0 mmol/L Blood Urea Nitrogen 21 mg/dl Creatinine 0.87 mg/dl Est Creatinine Clear Calc Drug Dose 68.1 ml/min Estimated GFR () 85.1 Estimated GFR (Non- 73.4 BUN/Creatinine Ratio 24.5 Random Glucose 204 mg/dl Estimated Average Glucose 217 mg/dl Hemoglobin A1c 9.2 % Calcium Level 8.5 mg/dl Total Bilirubin 0.6 mg/dl Aspartate Amino Transf (AST/SGOT) 212 U/L Alanine Aminotransferase (ALT/SGPT) 213 U/L Alkaline Phosphatase 130 U/L Troponin I 0.100 ng/ml Total Protein 6.4 gm/dl Albumin 3.2 gm/dl Globulin 3.2 gm/dl Albumin/Globulin Ratio 1.0 Test 01/17/17 10:58 Bedside Glucose 203 mg/dl
--- NOTE | 2017-01-17 13:44 | PROGRESS NOTE ---
DATE: 01/17/2017 SUBJECTIVE: A 56-year-old white female admitted with a right trimalleolar ankle fracture subluxation. The patient has multiple comorbidities. She was initially seen by my partner Dr. Rogel and he is asking me to assume her operative care as he is unavailable today. She has got multiple comorbidities. She is a very poor historian. She cannot seem to really recall a history of ankle problems, but she does say she injured her ankle before and states that she broke it before but does not recall whether she had surgery. She has no other complaints other than ankle pain today. She seems pretty groggy and drowsy and seems to fall asleep in between questions. SHE ALSO HAS REPORTED A METAL ALLERGY. Upon asking her this, it is very difficult to get any consistent story from her. She does wear metal necklace without any problems. OBJECTIVE: VITAL SIGNS: Temperature 37.0. Vital signs stable. GENERAL: Reveals a middle-aged female who looks older than her stated age. She is lying in bed. She dozes off in between questions. LOWER EXTREMITY: Her right leg was elevated in a splint. There is some slight deformity. She can flex and extend her toes on command slightly. Sensory exam is grossly intact to light touch. She has got brisk refill. LABORATORY DATA: Hemoglobin 11.3. Hematocrit 34.6. White cell count 14.11. Electrolytes are pretty stable. ASSESSMENT: A 56-year-old white female with multiple comorbidities including poorly controlled diabetes and underlying psychiatric issues with a right displaced fracture subluxation/trimalleolar ankle fracture. It is unclear whether she has had a previous injury to this before. She also reports there is a question of a metal allergy, but does wear some jewelry. She is really very difficult to characterize this. PLAN: She has been admitted by the medicine service. I believe she has been medically optimized and if so, will proceed with surgical fixation as this is a very unstable fracture. It is in a subluxated position and we should not leave it there. We discussed treatment options and surgical fixation was discussed and she would like to proceed along that course. The risks and benefits including but not limited to DVT, PE, , infection, neurological injury, vascular injury, bleeding problem, pain, limited range of motion, stiffness, failure to was symptoms, nonunion, malunion, progressive ankle arthritis and even the loss of her leg due to her diabetes and poor response from surgical trauma in cases like this. She understands and desires to proceed. Informed consent was obtained. As far as her metal allergy, we will try and use titanium hardware as much as possible. We may need to use some stainless steel due to availability. VERA
[2017-01-17] MEDS ORDERED: PROPOFOL IV EMULSION 10 MG/ML 20 ML VIAL IV ONE (14:22)
[2017-01-17] MEDS ORDERED: ONDANSETRON INJ 2 MG/ML 2 ML VIAL ONE (14:22)
[2017-01-17] MEDS ORDERED: DEXAMETHASONE SOD INJ 4 MG/ML VIAL ONE (14:22)
[2017-01-17] MEDS ORDERED: LIDOCAINE HCL 2% 2 ML VIAL (20MG/ML) ONE (14:22)
[2017-01-17] MEDS ORDERED: MIDAZOLAM HCL 1 MG/ML 2ML VIAL ONE (14:22)
[2017-01-17] MEDS ORDERED: FENTANYL CITRATE INJ 50 MCG/1 ML 2 ML VIAL ONE ×2 (14:23→15:56)
[2017-01-17] MEDS ORDERED: ROPIVACAINE 0.5% 5 MG/ML 30 ML VIAL ONE (14:43)
[2017-01-17] MEDS ORDERED: BUPIVACAINE/EPINEPHRINE 0.5% MPF 1:200,000 30 ML VIAL ONE (14:46)
[2017-01-17] MEDS ORDERED: BACITRACIN 50000 UNIT VIAL ONE (14:46)
[2017-01-17] MEDS ORDERED: BUPIVACAINE 0.5 % 5 MG/1 ML PF 10ML VIAL ONE (14:50)
[2017-01-17] MEDS ORDERED: CEFAZOLIN SOD 2000MG/10 ML IV PUSH IV ONE (15:26)
[2017-01-17] MEDS ORDERED: NURSING VERBAL MED ORDER ONE (15:30)
--- NOTE | 2017-01-17 17:05 | DIAGNOSTIC IMAGING REPORT ---
R ANKLE MIN 3 VIEWS ROUTINE CLINICAL HISTORY: RT ORIF ANKLE FX fracture TECHNIQUE: Image intensifier COMPARISON STUDY: 01/16/2017 FINDINGS: Anatomic alignment trimalleolar fracture right ankle status post open reduction internal fixation IMPRESSION: Anatomic alignment trimalleolar fracture status post open reduction internal fixation The above report was generated using voice recognition software. It may contain grammatical, syntax or spelling errors. Electronically signed by: Bird Spence M.D. 01/17/2017 5:04 PM Dictated Date/Time: 01/17/2017 5:03 PM
--- NOTE | 2017-01-17 17:18 | [facility] Post Operative Brief Note ---
Immediate Operative Summary Operative Date Jan 17, 2017. Pre-Operative Diagnosis Right Bimalleolar Ankle Fracture Subluxation Post-Operative Diagnosis Same as Preoperative Procedure(s) Performed Right Open Reduction Internal Fixation Bimalleolar Ankle Fracture Surgeon Dr. Yo Home Health Aide Surgeon(s) Ceferino Chinchilla PA-C Estimated Blood Loss 20ML Findings Displaced ANkle Fracture Fluids (cc crystalloids) 1000 cc Specimens None, Per Surgeon Drains None Anesthesia General Complication(s) None Disposition Recovery Room / PACU
[2017-01-17] MEDS ORDERED: PROMETHAZINE HCL INJ 12.5 MG in SODIUM CHLORIDE 0.9% 50ML 50 ML IV PRN (17:30)
[2017-01-17] MEDS ORDERED: NALOXONE HCL 0.4 MG/1 ML VIAL/CARP IV PRN (17:30)
[2017-01-17] MEDS ORDERED: EpHEDrine SULFATE INJ 50 MG/ML AMP IV PRN (17:30)
[2017-01-17] MEDS ORDERED: ATROPINE SULFATE 0.1 MG/ML 5ML SYR IV PRN (17:30)
[2017-01-17] MEDS ORDERED: LABETALOL HCL IV 5 MG/ML 20ML IV PRN (17:30)
[2017-01-17] MEDS ORDERED: ONDANSETRON INJ 2 MG/ML 2 ML VIAL IV PRN (17:30)
--- NOTE | 2017-01-17 17:59 | Anesthesiology Progress Note ---
Anesthesia Post Op Note Date & Time Jan 17, 2017 at 17:59 Vital Signs Pain Intensity: 0 Vital Signs Past 12 Hours Date Time Temp Pulse Resp B/P (MAP) Pulse Ox O2 Delivery O2 Flow Rate FiO2 01/17/17 17:55 92 24 158/79 97 Nasal Cannula 2 01/17/17 17:45 95 24 165/82 100 Oxymask 10 01/17/17 17:35 97 24 159/77 100 Oxymask 10 01/17/17 17:28 36.3 100 20 180/76 99 Oxymask 10 01/17/17 12:00 98 Nasal Cannula 2.0 01/17/17 12:00 81 01/17/17 10:52 37.0 89 20 147/83 (104) 97 Nasal Cannula 2.0 01/17/17 08:00 36.8 88 16 152/84 (106) 98 Nasal Cannula 2.0 01/17/17 08:00 98 Nasal Cannula 2.0 Notes Mental Status: alert / awake / arousable, participated in evaluation Pt Amnestic to Procedure: Yes Nausea / Vomiting: adequately controlled Pain: adequately controlled Airway Patency, RR, SpO2: stable & adequate BP & HR: stable & adequate Hydration State: stable & adequate Anesthetic Complications: no major complications apparent
--- NOTE | 2017-01-17 21:46 | Progress Note ---
Progress Note Date of Service Jan 17, 2017. Progress Note Attempted to see patient earlier this evening and she was not available. Tried to assess again around 21:20 and she was sleeping soundly. Nursing reports that she is doing well postoperatively. Will re-assess in a.m. .
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
[2017-01-18] VITALS (14 sets, daily range): BP systolic 118–172; BP diastolic 71–92; PULSE 85–97; TEMP 36.2–37.9; O2SAT 91–99; Ht 160 cm; Wt 76.7 kg
[2017-01-18] MEDS: CEFAZOLIN IV 1,000 MG in SYRINGE 0 ML IV SCH ×2 (00:09→08:13)
[2017-01-18] MEDS: HYDROmorphone INJ 0.5 MG/0.5 ML SYR IV PRN ×5 (00:10→23:50)
[2017-01-18] MEDS: ACETAMINOPHEN 325 MG TAB PO PRN ×2 (03:46→08:12)
[2017-01-18] MEDS: TRAMADOL HCL 50 MG TAB PO PRN ×4 (04:42→21:17)
[2017-01-18] MEDS: INSULIN ASPART 100 UNITS/ML 3 ML PEN SC SCH ×4 (06:00→21:07)
[2017-01-18 06:31] LABS: HEMATOCRIT 30.5 % (37-47)
[2017-01-18 07:22] LABS: BUN/CREATININE RATIO 15.7 (10-20); CALCIUM 8.2 mg/dl (8.5-10.1); CREATININE 0.61 mg/dl (0.60-1.20); POTASSIUM 3.5 mmol/L (3.5-5.1)
[2017-01-18] MEDS: CEROVITE ADV FORMULA TAB PO SCH (08:07)
[2017-01-18] MEDS: RANITIDINE HCL 150 MG TAB PO SCH (08:07)
[2017-01-18] MEDS: PANTOprazole SOD 40 MG TAB PO SCH (08:07)
[2017-01-18] MEDS: NICOTINE 21 MG/24 HR TDSY TD SCH (08:08)
[2017-01-18] MEDS: ATORVASTATIN 40 MG TAB PO SCH (08:08)
[2017-01-18] MEDS: ASPIRIN 81 MG ECTAB PO SCH (08:08)
[2017-01-18] MEDS: CLOPIDOGREL BISULFATE 75 MG TAB PO SCH (08:08)
[2017-01-18] MEDS: NSS + 20MEQ KCL 1000ML 1,000 ML IV SCH (08:13)
[2017-01-18] MEDS: INSULIN GLARGINE SOLOSTAR 100 UNITS/ML 3 ML PEN SC SCH ×2 (08:16→21:08)
[2017-01-18] MEDS: METOPROLOL TARTRATE 50 MG TAB PO SCH ×2 (09:12→21:06)
[2017-01-18 09:28] LABS: COD UR NEGATIVE NG/ML (CUTOFF=50); HYDROCOD UR NEGATIVE NG/ML (CUTOFF=50); HYDROMOR UR 266 NG/ML (CUTOFF=50); MORPHINE UR NEGATIVE NG/ML (CUTOFF=50); NORHYDROCODONE CONF UR NEGATIVE NG/ML (CUTOFF=50); OXYMORPH UR 398 NG/ML (CUTOFF=50)
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
--- NOTE | 2017-01-18 13:34 | PROGRESS NOTE ---
DATE: 01/18/2017 SUBJECTIVE: A 56-year-old white female postop day #1 from ORIF of bimalleolar ankle fracture subluxation. She is doing okay. Having some ankle pain. No other complaints. OBJECTIVE: VITAL SIGNS: Temperature 37.6. Vital signs stable. GENERAL: Physical examination reveals a pleasant, middle-aged female. She is sitting up at her bedside chair. She is much more awake and alert than she was yesterday. EXTREMITIES: Examination of the right ankle reveals the splint to be in place. Her toes are pink with brisk refill. She can flex and extend her toes appropriately. She is neurologically intact. LABORATORY DATA: Hemoglobin 10.1 and hematocrit 30.5. Electrolytes are stable. ASSESSMENT: A 56-year-old white female with multiple medical comorbidities postop day #1 from ORIF of bimalleolar ankle fracture subluxation. Her ankle looks to be doing well. She has got multiple comorbidities and certainly high risk for problems, but everything looks to be going well at this point. PLAN: 1. DVT prophylaxis including thigh-high TEDs, SCDs, and back on Plavix. I recommend sticking with the Plavix and low dose aspirin. 2. PT/OT. She is strictly nonweightbearing for the next 2 weeks. We would like to just leave this bandage on until I see her back. 3. Ankle fracture management. She is nonweightbearing for 2 weeks. She is to just leave this bandage on and I will see her back in clinic in 2 weeks. She should have heel precautions to avoid pressure on the heel to prevent heel sores. 4. Medical management as per the medicine service. 5. Disposition: She is orthopedically stable and acceptable for discharge at any time. I need to see her back 2 weeks out from surgery. Any orthopedic questions can be directed to me at [phone]. [facility]
--- NOTE | 2017-01-18 14:15 | Anesthesiology Progress Note ---
Anesthesia Post Op Note Date & Time Jan 18, 2017 at 14:14 Vital Signs Vital Signs Past 12 Hours Date Time Temp Pulse Resp B/P (MAP) Pulse Ox O2 Delivery O2 Flow Rate FiO2 01/18/17 12:00 94 Room Air 01/18/17 11:35 37.6 92 18 143/71 (95) 91 2.0 01/18/17 08:00 94 Room Air 01/18/17 07:56 37.6 95 18 118/76 (90) 96 2.0 01/18/17 04:00 Nasal Cannula 2.0 01/18/17 03:47 37.9 92 18 156/82 (106) 96 Nasal Cannula 2.0 Notes Mental Status: alert / awake / arousable, participated in evaluation Pt Amnestic to Procedure: Yes Nausea / Vomiting: adequately controlled Pain: adequately controlled Airway Patency, RR, SpO2: stable & adequate BP & HR: stable & adequate Hydration State: stable & adequate Anesthetic Complications: no major complications apparent
--- NOTE | 2017-01-18 15:47 | Cardiology Follow-Up ---
Subjective General Date of Service: Jan 18, 2017. Pt evaluation today including: conversation w/ patient, physical exam, chart review, lab review, review of studies, conversation w/ office [facility] consultant History of Present Illness The patient is a 56 year old female seen in follow-up. Patient denies chest pain or shortness of breath. Ankle pain is controlled. No dysrhythmias on telemetry. Offers no complaints at this time. Allergies Coded Allergies: Aspirin (Verified Allergy, Unknown, UNKNOWN, 01/16/17) Oxycodone (Verified Allergy, Unknown, 0, 01/16/17) as per [facility]px records Social History Smoking Status: Current Every Day Smoker Hx Tobacco Use In Past Year?: Yes Hx Alcohol Use - Type And Amou: No Hx Substance Use - Type And Am: No Problem List Medical Problems: (1) Closed right ankle fracture Status: Acute (2) Hypoxia Status: Acute Review of Systems Respiratory: No cough, No sputum, No wheezing, No shortness of breath, No dyspnea on exertion, No dyspnea at rest Cardiac: No chest pain, No orthopnea, No PND, No edema, No palpitations Physical Exam Vital Signs Last Vital Signs Documentation Date Time Temp Pulse Resp B/P (MAP) Pulse Ox O2 Delivery O2 Flow Rate FiO2 01/18/17 12:00 94 Room Air 01/18/17 11:35 37.6 92 18 143/71 (95) 2.0 01/17/17 22:27 40 Physical Exam Constitutional: General Apperance: well-nourished Level of Distress: NAD Head: normocephalic, atraumatic ENMT: normal ENT inspection Neck: supple, trachea midline Lungs: Auscultation: breath sounds normal, no wheezing, no rales/crackles, no rhonchi Cardiovascular: Heart Auscultation: RRR, normal S1, normal S2, II/ WSM Abdomen: Bowel Sounds: normal Inspection & Palpation: soft, non-distended, no tenderness, guarding & rebound Musculoskeletal: normal Extremities: no cyanosis, no edema, no clubbing, no ulcers Neurologic: Gait & Station: pertinent finding (no focal motor deficit.) Cranial Nerves: grossly intact Assessment and Plan Assessment and Plan FINAL IMPRESSION: 1. POD #1 orthopedic ankle surgery 2. Chronic coronary artery disease with history of prior coronary artery bypass grafting and evidence of posterior infarction on resting 2-D transthoracic echo. -Mild troponin elevation during hospitalization likely secondary to acute hypoxemic respiratory failure on admission attributed to narcotic medication 3. History of moderate to severe mitral regurgitation as well as flash pulmonary edema. -Repeat echocardiogram demonstrates mild mitral regurgitation 4. Moderate asymptomatic right-sided carotid vascular disease. PLAN AND RECOMMENDATIONS: Patient appears compensated from a cardiovascular perspective. Continue current medications including aspirin, Plavix, beta raymond, and statin therapy as previously ordered. Monitor telemetry during hospitalization. No further testing at this time. Will continue to follow. Laboratory Results Last 24 Hours Test 01/17/17 17:37 01/17/17 19:53 01/18/17 00:05 01/18/17 06:00 Bedside Glucose 153 mg/dl 160 mg/dl 117 mg/dl 94 mg/dl Test 01/18/17 06:16 01/18/17 11:27 Hemoglobin 10.1 g/dL Hematocrit 30.5 % Sodium Level 137 mmol/L Potassium Level 3.5 mmol/L Chloride Level 104 mmol/L Carbon Dioxide Level 29 mmol/L Anion Gap 4.0 mmol/L Blood Urea Nitrogen 10 mg/dl Creatinine 0.61 mg/dl Est Creatinine Clear Calc Drug Dose 98.6 ml/min Estimated GFR () 115.8 Estimated GFR (Non- 99.9 BUN/Creatinine Ratio 15.7 Random Glucose 83 mg/dl Calcium Level 8.2 mg/dl Bedside Glucose 175 mg/dl
--- NOTE | 2017-01-18 15:58 | Progress Note ---
Medicine Progress Note Date & Time of Visit: Jan 18, 2017 at 15:50 . Subjective Doing well postoperatively. No chest pain. No cough or dyspnea. No nausea or vomiting. Postop pain fairly well-controlled. . Objective Last 8 Hrs Date Time Temp Pulse Resp B/P (MAP) Pulse Ox O2 Delivery O2 Flow Rate FiO2 01/18/17 15:56 37.8 92 20 155/78 (103) 91 Room Air 01/18/17 12:00 94 Room Air 01/18/17 11:35 37.6 92 18 143/71 (95) 91 2.0 01/18/17 08:00 94 Room Air Physical Exam: General-lying in bed, no distress Lungs- clear to auscultation Cardiovascular- RRR, no gallop appreciated; no JVD Abdomen- normal bowel sounds, soft, nontender Extremities- right lower extremity casted; capillary refill right toes less than 2 seconds; no pretibial edema or calf tenderness left lower extremity Neuro- warm and dry Neuro- alert . Laboratory Results: Last 24 Hours Test 01/17/17 17:37 01/17/17 19:53 01/18/17 00:05 01/18/17 06:00 Bedside Glucose 153 mg/dl 160 mg/dl 117 mg/dl 94 mg/dl Test 01/18/17 06:16 01/18/17 11:27 Hemoglobin 10.1 g/dL Hematocrit 30.5 % Sodium Level 137 mmol/L Potassium Level 3.5 mmol/L Chloride Level 104 mmol/L Carbon Dioxide Level 29 mmol/L Anion Gap 4.0 mmol/L Blood Urea Nitrogen 10 mg/dl Creatinine 0.61 mg/dl Est Creatinine Clear Calc Drug Dose 98.6 ml/min Estimated GFR () 115.8 Estimated GFR (Non- 99.9 BUN/Creatinine Ratio 15.7 Random Glucose 83 mg/dl Calcium Level 8.2 mg/dl Bedside Glucose 175 mg/dl Assessment & Plan BIMALLEOLAR FRACTURE RIGHT ANKLE ORIF performed by Dr. Yo on 01/17/17. POD # 1. Strictly nonweightbearing until reevaluated in Orthopedics Clinic. CORONARY ARTERY DISEASE Status post CABG. No anginal symptoms. Slightly elevated troponins may been secondary to hypoxia associated with administration of narcotics. Continue aspirin, clopidogrel, metoprolol, statin. CHRONIC LEFT VENTRICULAR DIASTOLIC HEART FAILURE Compensated. HYPERTENSION Continue metoprolol. DM TYPE 2 Not well-controlled. Hemoglobin A1c 9.2. Fasting blood sugar this morning = 94. Continue Lantus and NovoLog per protocol. PSYCHOSIS Continue psychotropic meds per Psychiatry. VTE PROPHYLAXIS Aspirin, clopidogrel, TEDS, SCDs per Orthopedic Surgery. DISPOSITION To be determined. May need skilled care or inpatient rehabilitation. May need inpatient psychiatric care. Primary care follow-up with Christiano Simon PA-C in [place]. Cardiology follow-up with Dr. Sheth in [place]. . Current Inpatient Medications: Current Inpatient Medications Medications (Trade) Dose Ordered Sig/Moises Route Start Time Stop Time Status Last Admin Dose Admin Potassium Chloride/Sodium Chloride 1,000 ml @ 40 mls/hr Q24H IV 01/16/17 08:30 02/15/17 08:29 01/18/17 08:13 40 MLS/HR Nitroglycerin (Nitrostat Tab) 0.4 mg UD PRN SL 01/16/17 07:15 02/15/17 07:14 Glucose (Glucose 40% Gel) 15-30 GRAMS 15 GRAMS... UD PRN PO 01/16/17 07:15 02/15/17 07:14 Glucose (Glucose Chew Tab) 4-8 Tablets 4 Tabl... UD PRN PO 01/16/17 07:15 02/15/17 07:14 Dextrose (Dextrose 50% 50ML Syringe) 25-50ML OF 50% DW IV FOR... UD PRN IV 01/16/17 07:15 02/15/17 07:14 Glucagon (Glucagon Inj) 1 mg UD PRN SQ 01/16/17 07:15 02/15/17 07:14 Atorvastatin Calcium (Lipitor Tab) 80 mg DAILY PO 01/16/17 09:00 02/15/17 08:59 01/18/17 08:08 80 MG Multivitamins/ Minerals (Multivitamin W/ Minerals Tab) 1 tab DAILY PO 01/16/17 09:00 02/15/17 08:59 01/18/17 08:07 1 TAB Ranitidine HCl (zANTac TAB) 300 mg DAILY PO 01/16/17 09:00 02/15/17 08:59 01/18/17 08:07 300 MG Pantoprazole Sodium (Protonix Tab) 40 mg DAILY PO 01/16/17 09:00 02/15/17 08:59 12/6/17 08:07 40 MG Prochlorperazine Edisylate 5 mg/ Syringe 5 ml @ 5 mls/min Q6H PRN IV 01/16/17 07:15 02/15/17 07:14 Ioversol (Optiray 320) 125 ml UD PRN IV 01/16/17 07:30 01/20/17 07:29 Ipratropium [place] (Atrovent 0.02% 0.5MG/2.5ML Neb) 0.5 mg Q4H PRN INH 01/16/17 08:00 02/15/17 07:59 Levalbuterol (Xopenex 1.25MG/ 0.5ML Neb) 1.25 mg Q4H PRN INH 01/16/17 08:00 02/15/17 07:59 Hydromorphone HCl (Dilaudid Inj) 0.5 mg Q4H PRN IV 01/16/17 08:00 01/30/17 07:14 Future Hold 01/16/17 08:13 0.5 MG Naloxone HCl (Narcan Inj) 0.1 mg Q5M PRN IV 01/16/17 13:00 02/15/17 12:59 Hydromorphone HCl (Dilaudid Topology Teacher) 25 mg PRN PRN IV 01/16/17 13:00 01/30/17 12:59 Future Hold 01/16/17 15:18 25 MG Sodium Chloride 1,000 ml @ 15 mls/hr Q24H IV 01/16/17 12:57 02/15/17 12:56 Future Hold 01/16/17 12:57 15 MLS/HR Diphenhydramine HCl (Benadryl Inj) 12.5 mg Q6 PRN IV 01/16/17 13:00 02/15/17 12:59 Nicotine (Nicoderm Cq 21MG Patch) 1 patch QAM TD 01/17/17 09:00 02/16/17 08:59 01/18/17 08:08 1 PATCH Miscellaneous (Remove Nicoderm Patch) 1 ea HS N/A 01/17/17 21:00 02/16/17 20:59 Hydromorphone HCl (Dilaudid Inj) 0.5 mg Q4H PRN IV 01/17/17 01:00 01/31/17 00:59 01/18/17 10:17 0.5 MG Insulin Aspart (novoLOG ASPART) SLIDING SCALE If C... Q6 SC 01/17/17 06:00 02/16/17 05:59 01/18/17 12:40 2 UNITS Insulin Glargine (Lantus Solostar Pen) 10 units BID SC 01/17/17 09:00 02/16/17 08:59 01/18/17 08:16 10 UNITS Lorazepam (Ativan Inj) 0.25 mg Q4H PRN IV 01/17/17 01:30 02/15/17 07:14 01/17/17 10:13 0.25 MG Tramadol HCl (Ultram Tab) not relieved by tylenol @ Q4H PRN PO 01/17/17 05:15 02/15/17 08:14 01/18/17 12:42 50 MG Acetaminophen (Tylenol Tab) 650 mg Q6H PRN PO 01/17/17 05:15 02/16/17 05:14 01/18/17 08:12 650 MG Aspirin (Ecotrin Tab) 81 mg DAILY PO 01/18/17 09:00 02/17/17 08:59 01/18/17 08:08 81 MG Clopidogrel Bisulfate (plAVix TAB) 75 mg DAILY PO 01/18/17 09:00 02/17/17 08:59 01/18/17 08:08 75 MG Metoprolol Tartrate (Lopressor Tab) 50 mg BID PO 01/18/17 09:00 02/17/17 08:59 01/18/17 09:12 50 MG
--- NOTE | 2017-01-18 21:57 | Discharge Instructions ---
Discharge Instructions Date of Service Jan 18, 2017. Admission Reason for Admission: Acute Hypoxemic Respiratory Failure Discharge Discharge Diagnosis / Problem: ORIF Right Ankle Fracture Discharge Goals Goal(s): Decrease discomfort, Improve function, Improve disease control, Therapeutic intervention Activity Recommendations Activity Limitations: per Instructions/Follow-up section (Non-weight bearing right leg) Weightbearing Status: Right non-weightbearing . Instructions / Follow-Up Instructions / Follow-Up Keep splint and dressing clean, dry, and in place until return to clinic appointment. Keep all pressure off heel. Schedule return to clinic appointment with Orthopedics 2-3 weeks from surgery date. Current Hospital Diet Patient's current hospital diet: AHA Diet (Heart Healthy), Diabetes Type 2 Diet Discharge Diet Recommended Diet: AHA Diet (Heart Healthy), Diabetes Type 2 Diet Procedures Procedures Performed: Right Open Reduction Internal Fixation Bimalleolar Ankle Fracture Pending Studies Studies pending at discharge: no Laboratory Results Hemoglobin A1c Test 01/17/17 09:11 Range/Units Estimated Average Glucose 217 mg/dl Hemoglobin A1c 9.2 H 4.5-5.6 % Medical Emergencies . Who to Call and When: Medical Emergencies: If at any time you feel your situation is an emergency, please call 911 immediately. . Non-Emergent Contact Non-Emergency issues call your: Surgeon . "Provider Documentation" section prepared by [facility]. . VTE Core Measure Inpt VTE Proph given/why not?: Other Anticoagulation, T.E.D. Stockings, SCD's
[2017-01-19] MEDS: TRAMADOL HCL 50 MG TAB PO PRN ×5 (02:11→23:49)
[2017-01-19] MEDS: HYDROmorphone INJ 0.5 MG/0.5 ML SYR IV PRN ×4 (03:59→20:34)
[2017-01-19] MEDS: ACETAMINOPHEN 325 MG TAB PO PRN ×2 (04:52→11:52)
[2017-01-19 07:04] VITALS: BP 149/73; PULSE 75; TEMP 36.6; O2SAT 96
[2017-01-19] MEDS: ATORVASTATIN 40 MG TAB PO SCH (07:56)
[2017-01-19] MEDS: ASPIRIN 81 MG ECTAB PO SCH (07:56)
[2017-01-19] MEDS: CEROVITE ADV FORMULA TAB PO SCH (07:56)
[2017-01-19] MEDS: PANTOprazole SOD 40 MG TAB PO SCH (07:56)
[2017-01-19] MEDS: CLOPIDOGREL BISULFATE 75 MG TAB PO SCH (07:56)
[2017-01-19] MEDS: METOPROLOL TARTRATE 50 MG TAB PO SCH ×2 (07:57→21:27)
[2017-01-19] MEDS: NICOTINE 21 MG/24 HR TDSY TD SCH (07:57)
[2017-01-19] MEDS: RANITIDINE HCL 150 MG TAB PO SCH (07:57)
[2017-01-19] MEDS: INSULIN ASPART 100 UNITS/ML 3 ML PEN SC SCH ×4 (08:00→21:31)
--- NOTE | 2017-01-19 08:17 | PROGRESS NOTE ---
DATE: 01/19/2017 DATE: 01/19/2017 SUBJECTIVE: A 56-year-old white female postop day 2 from ORIF of a right bimalleolar ankle fracture subluxation. She is doing okay. Still having some ankle pain which is not unexpected. No new complaints. OBJECTIVE: VITAL SIGNS: Temperature 36.6. Vital signs stable. GENERAL: Reveals a pleasant 56-year-old female. She seems much more awake, alert and oriented than she has prior to this. Examination of the right ankle reveals the splint to be in place. She can flex or extend her toes appropriately. She is neurologically intact. LABORATORY DATA: No new labs. ASSESSMENT: A 56-year-old white female with multiple comorbidities postop day 2 from ORIF of right bimalleolar ankle fracture subluxation. Some pain, but not unexpected. She seems to be more awake and alert than she has been prior to this. PLAN: 1. DVT prophylaxis including thigh high TEDs, SCDs, and back on her Plavix and her aspirin. 2. PT, OT. She is strict nonweightbearing for the next 2 weeks. 3. Medical management as per the medicine service. 4. Disposition. She is orthopedically acceptable for discharge at any time medically stable. I need to see her back 2-3 weeks from her surgery date. Any orthopedic questions can be directed to me at [phone].
[2017-01-19] MEDS: INSULIN GLARGINE SOLOSTAR 100 UNITS/ML 3 ML PEN SC SCH ×2 (10:13→21:30)
--- NOTE | 2017-01-19 10:21 | Cardiology Follow-Up ---
Subjective General Date of Service: Jan 19, 2017. Pt evaluation today including: conversation w/ patient, physical exam, chart review, lab review, review of studies, review of inpatient medication list History of Present Illness The patient is a 56 year old female seen in follow-up. Complains of right ankle pain. Denies chest pain or shortness of breath. Currently on one-to-one observation. Denies orthopnea, PND, or edema. No palpitations, lightheadedness, or dizziness. Offers no other complaints this time. Allergies Coded Allergies: Aspirin (Verified Allergy, Unknown, UNKNOWN, 01/16/17) Oxycodone (Verified Allergy, Unknown, 0, 01/16/17) as per [facility] records Social History Smoking Status: Current Every Day Smoker Hx Tobacco Use In Past Year?: Yes Hx Alcohol Use - Type And Amou: No Hx Substance Use - Type And Am: No Problem List Medical Problems: (1) Closed right ankle fracture Status: Acute (2) Hypoxia Status: Acute Review of Systems Respiratory: No cough, No sputum, No wheezing, No shortness of breath, No dyspnea on exertion, No dyspnea at rest, No hemoptysis Cardiac: No chest pain, No orthopnea, No PND, No edema, No claudication, No palpitations Physical Exam Vital Signs Last Vital Signs Documentation Date Time Temp Pulse Resp B/P (MAP) Pulse Ox O2 Delivery O2 Flow Rate FiO2 01/19/17 09:42 Room Air 01/19/17 07:04 36.6 75 16 149/73 (98) 96 2.0 01/18/17 22:33 40 Physical Exam Constitutional: General Apperance: well-nourished Level of Distress: NAD Head: normocephalic, atraumatic ENMT: normal ENT inspection Neck: supple, trachea midline Lungs: Auscultation: breath sounds normal, no wheezing, no rales/crackles, no rhonchi Cardiovascular: Heart Auscultation: RRR, normal S1, normal S2, II/ WSM Abdomen: Bowel Sounds: normal Inspection & Palpation: soft, non-distended, no tenderness, guarding & rebound Musculoskeletal: normal Extremities: no cyanosis, no edema, no clubbing, no ulcers Neurologic: Gait & Station: pertinent finding Cranial Nerves: grossly intact Assessment and Plan Assessment and Plan FINAL IMPRESSION: 1. POD #2 orthopedic ankle surgery -No cardiovascular complications 2. Chronic coronary artery disease with history of prior coronary artery bypass grafting and evidence of posterior infarction on resting 2-D transthoracic echo. -Mild troponin elevation during hospitalization likely secondary to acute hypoxemic respiratory failure on admission attributed to narcotic medication 3. History of moderate to severe mitral regurgitation as well as flash pulmonary edema. -Repeat echocardiogram demonstrates mild mitral regurgitation 4. Moderate asymptomatic right-sided carotid vascular disease. 5. HTN - uncontrolled PLAN AND RECOMMENDATIONS: Patient appears compensated from a cardiovascular perspective. Add losartan 25 mg daily. Repeat basic metabolic panel in the a.m. Continue other cardiovascular medications including aspirin, Plavix, beta raymond, and statin therapy as previously ordered. No further testing at this time. Recommend patient follow-up with her outpatient clinical faculty, Dr. Sheth in [place], within 2 weeks of discharge. I will sign off at this time. Please call with questions. Laboratory Results Last 24 Hours Test 01/18/17 11:27 01/18/17 16:28 01/18/17 20:35 Bedside Glucose 175 mg/dl 204 mg/dl 189 mg/dl
[2017-01-19] MEDS ORDERED: LOSARTAN POTASSIUM 25 MG TAB PO ONE (10:30)
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
[2017-01-19] MEDS: LORAZEPAM INJ 0.25 MG in SYRINGE 0.125 ML IV PRN ×2 (12:28→18:17)
[2017-01-19 14:58] VITALS: BP 127/64; PULSE 88; TEMP 36.5; O2SAT 90
--- NOTE | 2017-01-19 20:25 | Progress Note ---
Medicine Progress Note Date & Time of Visit: Jan 19, 2017 at 11:30 . Subjective Doing well postoperatively except for postop pain. No chest pain. No cough or dyspnea. No nausea or vomiting. No diarrhea or constipation. . Objective Last 8 Hrs Date Time Temp Pulse Resp B/P (MAP) Pulse Ox O2 Delivery O2 Flow Rate FiO2 01/19/17 16:39 Room Air 01/19/17 14:58 36.5 88 18 127/64 (85) 90 Room Air Physical Exam: General-no distress Lungs- clear to auscultation Cardiovascular- RRR, no gallop appreciated; no JVD Abdomen- normal bowel sounds, soft, nontender Extremities- right lower extremity casted; capillary refill right toes less than 2 seconds; no pretibial edema or calf tenderness left lower extremity Neuro- warm and dry Neuro- alert . Laboratory Results: Last 24 Hours Test 01/18/17 20:35 Bedside Glucose 189 mg/dl Assessment & Plan BIMALLEOLAR FRACTURE RIGHT ANKLE ORIF performed by Dr. Yo on 01/17/17. POD # 2. Strictly nonweightbearing until reevaluated in Orthopedics Clinic. CORONARY ARTERY DISEASE Status post CABG. No anginal symptoms. Slightly elevated troponins may been secondary to hypoxia associated with administration of narcotics. Continue aspirin, clopidogrel, metoprolol, statin. CHRONIC LEFT VENTRICULAR DIASTOLIC HEART FAILURE Compensated. HYPERTENSION Continue metoprolol. DM TYPE 2 Not well-controlled. Hemoglobin A1c 9.2. Fasting blood sugar this morning = 114. Continue Lantus and NovoLog per protocol. PSYCHOSIS Continue psychotropic meds per Psychiatry. VTE PROPHYLAXIS Aspirin, clopidogrel, TEDS, SCDs per Orthopedic Surgery. DISPOSITION Inpatient psychiatric care recommended. Primary care follow-up with Christiano Simon PA-C in [place]. Cardiology follow-up with Dr. Sheth in [place]. . Current Inpatient Medications: Current Inpatient Medications Medications (Trade) Dose Ordered Sig/Moises Route Start Time Stop Time Status Last Admin Dose Admin Nitroglycerin (Nitrostat Tab) 0.4 mg UD PRN SL 01/16/17 07:15 02/15/17 07:14 Glucose (Glucose 40% Gel) 15-30 GRAMS 15 GRAMS... UD PRN PO 01/16/17 07:15 02/15/17 07:14 Glucose (Glucose Chew Tab) 4-8 Tablets 4 Tabl... UD PRN PO 01/16/17 07:15 02/15/17 07:14 Dextrose (Dextrose 50% 50ML Syringe) 25-50ML OF 50% DW IV FOR... UD PRN IV 01/16/17 07:15 02/15/17 07:14 Glucagon (Glucagon Inj) 1 mg UD PRN SQ 01/16/17 07:15 02/15/17 07:14 Atorvastatin Calcium (Lipitor Tab) 80 mg DAILY PO 01/16/17 09:00 02/15/17 08:59 01/19/17 07:56 80 MG Multivitamins/ Minerals (Multivitamin W/ Minerals Tab) 1 tab DAILY PO 01/16/17 09:00 02/15/17 08:59 01/19/17 07:56 1 TAB Ranitidine HCl (zANTac TAB) 300 mg DAILY PO 01/16/17 09:00 02/15/17 08:59 01/19/17 07:57 300 MG Pantoprazole Sodium (Protonix Tab) 40 mg DAILY PO 01/16/17 09:00 02/15/17 08:59 01/19/17 07:56 40 MG Prochlorperazine Edisylate 5 mg/ Syringe 5 ml @ 5 mls/min Q6H PRN IV 01/16/17 07:15 02/15/17 07:14 Ioversol (Optiray 320) 125 ml UD PRN IV 01/16/17 07:30 01/20/17 07:29 Ipratropium [place] (Atrovent 0.02% 0.5MG/2.5ML Neb) 0.5 mg Q4H PRN INH 01/16/17 08:00 02/15/17 07:59 Levalbuterol (Xopenex 1.25MG/ 0.5ML Neb) 1.25 mg Q4H PRN INH 01/16/17 08:00 02/15/17 07:59 Hydromorphone HCl (Dilaudid Inj) 0.5 mg Q4H PRN IV 01/16/17 08:00 01/30/17 07:14 Future Hold 01/16/17 08:13 0.5 MG Naloxone HCl (Narcan Inj) 0.1 mg Q5M PRN IV 01/16/17 13:00 02/15/17 12:59 Hydromorphone HCl (Dilaudid [employer] Stocker) 25 mg PRN PRN IV 01/16/17 13:00 01/30/17 12:59 Future Hold 01/16/17 15:18 25 MG Sodium Chloride 1,000 ml @ 15 mls/hr Q24H IV 01/16/17 12:57 02/15/17 12:56 Future Hold 01/16/17 12:57 15 MLS/HR Diphenhydramine HCl (Benadryl Inj) 12.5 mg Q6 PRN IV 01/16/17 13:00 02/15/17 12:59 Nicotine (Nicoderm Cq 21MG Patch) 1 patch QAM TD 01/17/17 09:00 02/16/17 08:59 01/19/17 07:57 1 PATCH Miscellaneous (Remove Nicoderm Patch) 1 ea HS N/A 01/17/17 21:00 02/16/17 20:59 01/18/17 21:10 1 EA Hydromorphone HCl (Dilaudid Inj) 0.5 mg Q4H PRN IV 01/17/17 01:00 01/31/17 00:59 01/19/17 14:54 0.5 MG Insulin Glargine (Lantus Solostar Pen) 10 units BID SC 01/17/17 09:00 02/16/17 08:59 01/19/17 10:13 10 UNITS Lorazepam (Ativan Inj) 0.25 mg Q4H PRN IV 01/17/17 01:30 02/15/17 07:14 01/17/17 10:13 0.25 MG Tramadol HCl (Ultram Tab) not relieved by tylenol @ Q4H PRN PO 01/17/17 05:15 02/15/17 08:14 01/19/17 19:29 50 MG Acetaminophen (Tylenol Tab) 650 mg Q6H PRN PO 01/17/17 05:15 02/16/17 05:14 01/19/17 11:52 650 MG Aspirin (Ecotrin Tab) 81 mg DAILY PO 01/18/17 09:00 02/17/17 08:59 01/19/17 07:56 81 MG Clopidogrel Bisulfate (plAVix TAB) 75 mg DAILY PO 01/18/17 09:00 02/17/17 08:59 12/7/17 07:56 75 MG Metoprolol Tartrate (Lopressor Tab) 50 mg BID PO 01/18/17 09:00 02/17/17 08:59 01/19/17 07:57 50 MG Insulin Aspart (novoLOG ASPART) SLIDING SCALE If C... ACHS SC 01/18/17 21:00 02/17/17 20:59 01/19/17 19:31 2 UNITS Losartan Potassium (coZAAR TAB) 25 mg QAM PO 01/20/17 09:00 02/19/17 08:59 Lorazepam 0.25 mg/ Syringe 0.25 ml @ 1 mls/min Q4H PRN IV 01/19/17 12:00 02/18/17 11:59 01/19/17 18:17 1 MLS/MIN
[2017-01-19 21:26] VITALS: BP 152/78; PULSE 105
[2017-01-19 23:14] VITALS: BP 123/72; PULSE 93; TEMP 37.4; O2SAT 94
[2017-01-20 07:02] LABS: BASO % 0.1 %; BASO ABS # 0.02 K/uL (0-0.2); COMPLETE YES; EOS % 0.5 %; HEMATOCRIT 29.6 % (37-47); IG% 0.6 %; LYMPH % 18.8 %; LYMPH ABS # 2.82 K/uL (1.2-3.4); MEAN CELL VOLUME 86.3 fL (80-100); MEAN CORPUSCULAR HGB CONC 32.4 g/dl (32-36); MONO % 19.1 %; NEUT % 60.9 %; PLATELET COUNT 241 K/uL (130-400); RED BLOOD COUNT 3.43 M/uL (4.2-5.4); WHITE BLOOD COUNT 15.01 K/uL (4.8-10.8)
[2017-01-20] MEDS: TRAMADOL HCL 50 MG TAB PO PRN ×3 (07:06→17:32)
[2017-01-20 07:34] VITALS: BP 157/77; PULSE 85; TEMP 37.2; O2SAT 94
[2017-01-20] MEDS: ASPIRIN 81 MG ECTAB PO SCH (08:48)
[2017-01-20] MEDS: CLOPIDOGREL BISULFATE 75 MG TAB PO SCH (08:48)
[2017-01-20] MEDS: ATORVASTATIN 40 MG TAB PO SCH (08:48)
[2017-01-20] MEDS: PANTOprazole SOD 40 MG TAB PO SCH (08:49)
[2017-01-20] MEDS: METOPROLOL TARTRATE 50 MG TAB PO SCH (08:49)
[2017-01-20] MEDS: CEROVITE ADV FORMULA TAB PO SCH (08:49)
[2017-01-20] MEDS: RANITIDINE HCL 150 MG TAB PO SCH (08:49)
[2017-01-20] MEDS: NICOTINE 21 MG/24 HR TDSY TD SCH (08:50)
[2017-01-20] MEDS: INSULIN ASPART 100 UNITS/ML 3 ML PEN SC SCH ×3 (08:53→18:10)
[2017-01-20] MEDS: INSULIN GLARGINE SOLOSTAR 100 UNITS/ML 3 ML PEN SC SCH (08:54)
[2017-01-20] MEDS ORDERED: LOSARTAN POTASSIUM 25 MG TAB PO SCH (09:00)
--- NOTE | 2017-01-20 09:09 | PROGRESS NOTE ---
DATE: 01/20/2017 DATE: 01/20/2017 SUBJECTIVE: A 56-year-old white female postop day 3 from ORIF of bimalleolar ankle fracture subluxation. She continues to have significant ankle pain. No other complaints. OBJECTIVE: VITAL SIGNS: Temperature 37.2. Vital signs stable. PHYSICAL EXAMINATION: GENERAL: Reveals the patient is a pleasant 56-year-old female. She seems to be a much more awake, alert and responsive each day. EXTREMITIES: Examination of the right ankle reveals the splint to be in place. There is no drainage. She can flex and extend her toes appropriately. Sensation is intact. ASSESSMENT: A 56-year-old white female with multiple comorbidities including diabetes, postop day 2 from ORIF of bimalleolar ankle fracture subluxation. She is doing pretty well. PLAN: From the orthopedic standpoint we will just keep her nonweightbearing right leg for the next 2-3 weeks. We are going to leave the splint on. I need to see her back in my clinic in 2-3 weeks. Any orthopedic questions can be directed to me at [phone]. She is acceptable for discharge any time medically stable.
--- NOTE | 2017-01-20 11:56 | Psychiatric Progress Notes ---
Psychiatric Progress Note Date of Service Jan 20, 2017. Notes patient seen, MS assessed, daughter met with liaison to formalize her 302 petition, KRYSTIAN approved warrant and are reading rights. Patient focussed on going home, doesn't want inpatient MH care. doesn't make eye contact or want to discuss delusions. Patient shut down. 302 examining portion completed. Patient likely clearing a bit as meds held, will offer Risperdal M tab at hs once transferred to psych. Patient will require MNPR due to need for 02 on floor.
[2017-01-20] MEDS ORDERED: NITROGLYCERIN 0.4 MG SL PER TAB CHARGE SL STA (12:03)
[2017-01-20] MEDS ORDERED: LORAZEPAM 0.5 MG TAB PO ONE (12:15)
--- NOTE | 2017-01-20 13:10 | Progress Note ---
Medicine Progress Note Date & Time of Visit: Jan 20, 2017 at 13:05 . Subjective Mild chest pressure today after receiving the news that involuntary psych admission was necessary. No EKG changes. CP relieved by NTG + lorazepam. Postop pain less severe. . Objective Last 8 Hrs Date Time Temp Pulse Resp B/P (MAP) Pulse Ox O2 Delivery O2 Flow Rate FiO2 01/20/17 07:45 Room Air 01/20/17 07:34 37.2 85 16 157/77 (103) 94 Room Air Physical Exam: General-no distress Lungs- clear to auscultation Cardiovascular- RRR, no gallop; no JVD Abdomen- normal bowel sounds, soft, nontender Extremities- right lower extremity casted; capillary refill right toes less than 2 seconds; no pretibial edema or calf tenderness left lower extremity Neuro- warm and dry Neuro- alert . Laboratory Results: Last 24 Hours Test 01/19/17 17:00 01/19/17 20:46 01/20/17 06:23 01/20/17 08:03 Bedside Glucose 173 mg/dl 234 mg/dl 143 mg/dl White Blood Count 15.01 K/uL Red Blood Count 3.43 M/uL Hemoglobin 9.6 g/dL Hematocrit 29.6 % Mean Corpuscular Volume 86.3 fL Mean Corpuscular Hemoglobin 28.0 pg Mean Corpuscular Hemoglobin Concent 32.4 g/dl Platelet Count 241 K/uL Mean Platelet Volume 11.0 fL Neutrophils (%) (Auto) 60.9 % Lymphocytes (%) (Auto) 18.8 % Monocytes (%) (Auto) 19.1 % Eosinophils (%) (Auto) 0.5 % Basophils (%) (Auto) 0.1 % Neutrophils # (Auto) 9.15 K/uL Lymphocytes # (Auto) 2.82 K/uL Monocytes # (Auto) 2.86 K/uL Eosinophils # (Auto) 0.07 K/uL Basophils # (Auto) 0.02 K/uL RDW Standard Deviation 42.4 fL RDW Coefficient of Variation 13.3 % Immature Granulocyte % (Auto) 0.6 % Immature Granulocyte # (Auto) 0.09 K/uL Other Studies: EKG performed at 12:14 reviewed and demonstrated NSR at 75 / minute, old inferior infarct, slight ST elevation III, aVF, inverted T-waves aVL. No change compared to recent tracings. . Assessment & Plan BIMALLEOLAR FRACTURE RIGHT ANKLE ORIF performed by Dr. Yo on 01/17/17. POD # 3. Strictly nonweightbearing until reevaluated in Orthopedics Clinic. CORONARY ARTERY DISEASE Mild chest pressure this morning associated with emotional stress. No acute EKG changes. CP relieved by NTG and lorazepam. Slightly elevated troponins may been secondary to hypoxia associated with administration of narcotics. Continue aspirin, clopidogrel, metoprolol, statin. CHRONIC LEFT VENTRICULAR DIASTOLIC HEART FAILURE Compensated. HYPERTENSION Continue metoprolol. DM TYPE 2 Not well-controlled. Hemoglobin A1c 9.2. Fasting blood sugar this morning = 143. Continue Lantus and NovoLog per protocol. PSYCHOSIS Continue psychotropic meds per Psychiatry. VTE PROPHYLAXIS Aspirin, clopidogrel, TEDS, SCDs per Orthopedic Surgery. DISPOSITION Inpatient psychiatric care recommended with involuntary admission to [facility]. Primary care follow-up with Christiano Simon PA-C in [place]. Cardiology follow-up with Dr. Sheth in [place]. . Current Inpatient Medications: Current Inpatient Medications Medications (Trade) Dose Ordered Sig/Moises Route Start Time Stop Time Status Last Admin Dose Admin Nitroglycerin (Nitrostat Tab) 0.4 mg UD PRN SL 01/16/17 07:15 02/15/17 07:14 Glucose (Glucose 40% Gel) 15-30 GRAMS 15 GRAMS... UD PRN PO 01/16/17 07:15 02/15/17 07:14 Glucose (Glucose Chew Tab) 4-8 Tablets 4 Tabl... UD PRN PO 01/16/17 07:15 02/15/17 07:14 Dextrose (Dextrose 50% 50ML Syringe) 25-50ML OF 50% DW IV FOR... UD PRN IV 01/16/17 07:15 02/15/17 07:14 Glucagon (Glucagon Inj) 1 mg UD PRN SQ 01/16/17 07:15 02/15/17 07:14 Atorvastatin Calcium (Lipitor Tab) 80 mg DAILY PO 01/16/17 09:00 02/15/17 08:59 01/20/17 08:48 80 MG Multivitamins/ Minerals (Multivitamin W/ Minerals Tab) 1 tab DAILY PO 01/16/17 09:00 02/15/17 08:59 01/20/17 08:49 1 TAB Ranitidine HCl (zANTac TAB) 300 mg DAILY PO 01/16/17 09:00 02/15/17 08:59 01/20/17 08:49 300 MG Pantoprazole Sodium (Protonix Tab) 40 mg DAILY PO 01/16/17 09:00 02/15/17 08:59 01/20/17 08:49 40 MG Prochlorperazine Edisylate 5 mg/ Syringe 5 ml @ 5 mls/min Q6H PRN IV 01/16/17 07:15 02/15/17 07:14 Ipratropium [place] (Atrovent 0.02% 0.5MG/2.5ML Neb) 0.5 mg Q4H PRN INH 01/16/17 08:00 02/15/17 07:59 Levalbuterol (Xopenex 1.25MG/ 0.5ML Neb) 1.25 mg Q4H PRN INH 01/16/17 08:00 02/15/17 07:59 Hydromorphone HCl (Dilaudid Inj) 0.5 mg Q4H PRN IV 01/16/17 08:00 01/30/17 07:14 Future Hold 01/16/17 08:13 0.5 MG Naloxone HCl (Narcan Inj) 0.1 mg Q5M PRN IV 01/16/17 13:00 02/15/17 12:59 Hydromorphone HCl (Dilaudid [place]) 25 mg PRN PRN IV 01/16/17 13:00 01/30/17 12:59 Future Hold 01/16/17 15:18 25 MG Sodium Chloride 1,000 ml @ 15 mls/hr Q24H IV 01/16/17 12:57 02/15/17 12:56 Future Hold 01/16/17 12:57 15 MLS/HR Diphenhydramine HCl (Benadryl Inj) 12.5 mg Q6 PRN IV 01/16/17 13:00 02/15/17 12:59 Nicotine (Nicoderm Cq 21MG Patch) 1 patch QAM TD 01/17/17 09:00 02/16/17 08:59 01/20/17 08:50 1 PATCH Miscellaneous (Remove Nicoderm Patch) 1 ea HS N/A 01/17/17 21:00 02/16/17 20:59 01/19/17 21:27 1 EA Hydromorphone HCl (Dilaudid Inj) 0.5 mg Q4H PRN IV 01/17/17 01:00 01/31/17 00:59 01/19/17 20:34 0.5 MG Insulin Glargine (Lantus Solostar Pen) 10 units BID SC 01/17/17 09:00 02/16/17 08:59 01/20/17 08:54 10 UNITS Tramadol HCl (Ultram Tab) not relieved by tylenol @ Q4H PRN PO 01/17/17 05:15 02/15/17 08:14 01/20/17 11:07 50 MG Acetaminophen (Tylenol Tab) 650 mg Q6H PRN PO 01/17/17 05:15 02/16/17 05:14 01/19/17 11:52 650 MG Aspirin (Ecotrin Tab) 81 mg DAILY PO 01/18/17 09:00 02/17/17 08:59 01/20/17 08:48 81 MG Clopidogrel Bisulfate (plAVix TAB) 75 mg DAILY PO 01/18/17 09:00 02/17/17 08:59 01/20/17 08:48 75 MG Metoprolol Tartrate (Lopressor Tab) 50 mg BID PO 01/18/17 09:00 02/17/17 08:59 01/20/17 08:49 50 MG Insulin Aspart (novoLOG ASPART) SLIDING SCALE If C... ACHS SC 01/18/17 21:00 02/17/17 20:59 01/20/17 08:53 3 UNITS Losartan Potassium (coZAAR TAB) 25 mg QAM PO 01/20/17 09:00 02/19/17 08:59 01/20/17 08:49 25 MG
[2017-01-20] MEDS ORDERED: ULT50X PO (13:20)
[2017-01-20] MEDS ORDERED: CZR25 PO (13:20)
[2017-01-20] MEDS ORDERED: ACET-1257 PO (13:20)
[2017-01-20] MEDS ORDERED: NTRSLP4 SL (13:20)
[2017-01-20] MEDS ORDERED: NICO14DI31 TD (13:22)
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
[2017-01-20 14:25] VITALS: BP 157/77; PULSE 85; TEMP 37.2; O2SAT 94
[2017-01-20 16:27] VITALS: BP 163/83; PULSE 85; TEMP 36.9; O2SAT 94
[2017-01-20] MEDS ORDERED: SERT50TA PO (19:01)
[2017-01-20] MEDS ORDERED: INSDGI SC (19:01)
== END 2017-01-20 18:34 | DRG 492 ==
LOC: EDBD 02:31 → C.EDB 02:32 → C.2T 06:30 → ENRESERV 06:42 → CANRESERV 01-18 16:42 → ENRESERV 01-18 16:42 → C.MSN 01-18 17:45
PROVIDERS: ADMIT Internal Medicine; ATTEND Hospitalist
PROC: 0QSJ04Z Reposition Right Fibula with Internal Fixation Device, Open Approach (ICD-10-PCS; principal; 2017-01-17 09:00)
DX: S82.851A Displaced trimalleolar fracture of right lower leg, initial encounter for closed fracture (principal); J96.01 Acute respiratory failure with hypoxia; J96.02 Acute respiratory failure with hypercapnia; N17.9 Acute kidney failure, unspecified; I50.32 Chronic diastolic (congestive) heart failure; W03.XXXA Other fall on same level due to collision with another person, initial encounter; T40.4X5A Adverse effect of other synthetic narcotics, initial encounter; I11.0 Hypertensive heart disease with heart failure; G47.33 Obstructive sleep apnea (adult) (pediatric); F29 Unspecified psychosis not due to a substance or known physiological condition; F39 Unspecified mood [affective] disorder; F41.9 Anxiety disorder, unspecified; F22 Delusional disorders; R44.1 Visual hallucinations; G89.29 Other chronic pain; M54.9 Dorsalgia, unspecified; R07.81 Pleurodynia; I25.10 Atherosclerotic heart disease of native coronary artery without angina pectoris; I34.0 Nonrheumatic mitral (valve) insufficiency; E11.40 Type 2 diabetes mellitus with diabetic neuropathy, unspecified; E78.5 Hyperlipidemia, unspecified; K21.9 Gastro-esophageal reflux disease without esophagitis; F17.200 Nicotine dependence, unspecified, uncomplicated; Z91.14 Patient's other noncompliance with medication regimen; Z95.1 Presence of aortocoronary bypass graft; Z79.02 Long term (current) use of antithrombotics/antiplatelets; Z79.4 Long term (current) use of insulin; Z79.82 Long term (current) use of aspirin; Z79.891 Long term (current) use of opiate analgesic; Z79.899 Other long term (current) drug therapy

== ENCOUNTER 2017-01-20 18:28 | Inpatient (IN) | payer BC, OTHER ==
[~2017-01-20] VITALS: Ht 160 cm; Wt 76.7 kg
[~2017-01-20 18:28] MED LIST: ACET-1257 PO; ASPI-435 PO; ATOR-26 PO; CLOP1TAB15 PO; CYAN500T PO; CZR25 PO; FURO-85 PO; LISI40TA PO; LORA-741 PO; METO50TA16 PO; MULT-1042 PO; NICO14DI31 TD; NTRSLP4 SL; NVLGI/PEN SQ; OXYC-106 PO; PREG100C PO; PRLSR20 PO; RANI300T2 PO; SERT50TA PO; ULT50X PO; VITATAB11 PO; ZOLP10TA6 PO
[2017-01-20] MEDS ORDERED: NICOTINE POLACRILEX 2 MG GUM MT PRN (19:00)
[2017-01-20] MEDS ORDERED: BISMUTH SUBSALICYLATE PER ML OMNICELL CHARGE PO PRN (19:00)
[2017-01-20] MEDS ORDERED: MAGNESIUM HYDROXIDE SUSP 30 ML UDC PO PRN (19:00)
[2017-01-20] MEDS ORDERED: hydrOXYzine HCL 25 MG TAB PO PRN (19:00)
[2017-01-20] MEDS ORDERED: LORAZEPAM 0.5 MG TAB PO PRN (19:00)
[2017-01-20] MEDS ORDERED: SODIUM CHLORIDE 0.65% NA SOLN 45 ML (OCEAN) PRN (19:00)
[2017-01-20] MEDS ORDERED: ALUMINUM/MAGNESIUM SUSP 30 ML UDC PO PRN (19:00)
[2017-01-20] MEDS ORDERED: RISPERIDONE ODT 0.5MG PO PRN (19:00)
[2017-01-20] MEDS ORDERED: NITROGLYCERIN 0.4 MG SL PER TAB CHARGE SL PRN (19:00)
[2017-01-20] MEDS ORDERED: SERT50TA PO (19:01)
[2017-01-20] MEDS ORDERED: INSDGI SC (19:01)
[2017-01-20 19:12] VITALS: BP 163/83; PULSE 85; TEMP 36.9; BMI 30.0
--- NOTE | 2017-01-20 19:17 | Psych Management Progress Note ---
Psychiatry Miscellaneous Date of Service: Jan 20, 2017. Called back into the hospital to evaluate patient after she had been placed in a hold for 6 minutes from 1628 till 1634. Staff had been attempting to transfer patient from medical floor to behavioral health unit while patient became severely agitated and physically attempted to block herself from admission onto unit. Staff were able to calm patient and hold was released. I met with patient together with her daughter and son-in-law and patient continues to resist being on unit. Reviewed with her that she is on a 302 involuntary commitment.She requested to smoke and reviewed options with her and she agrees to nicoderm patch and nicotine gum.
[2017-01-20] MEDS ORDERED: PHARMACY GLYCEMIC MGMT CONSULT PRN (19:20)
[2017-01-20] MEDS: TRAMADOL HCL 50 MG TAB PO PRN (20:35)
[2017-01-20] MEDS: RISPERIDONE ODT 0.5MG PO SCH (21:21)
[2017-01-20] MEDS: METOPROLOL TARTRATE 50 MG TAB PO SCH (21:21)
[2017-01-20] MEDS: INSULIN GLARGINE SOLOSTAR 100 UNITS/ML 3 ML PEN SC SCH (21:26)
[2017-01-20] MEDS: INSULIN ASPART 100 UNITS/ML 3 ML PEN SQ SCH (21:27)
[2017-01-20] MEDS: NICOTINE POLACRILEX 2 MG GUM MT PRN (21:42)
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
[2017-01-20] MEDS ORDERED: PREGABALIN 100 MG CAP PO SCH (22:00)
[2017-01-20] MEDS: ACETAMINOPHEN 325 MG TAB PO PRN (22:07)
[2017-01-20] MEDS: hydrOXYzine HCL 25 MG TAB PO PRN (22:10)
[2017-01-20 23:01] VITALS: O2SAT 97
[2017-01-20] MEDS ORDERED: NURSING VERBAL MED ORDER ONE (23:15)
[2017-01-21] MEDS: IBUPROFEN 800 MG TAB PO PRN ×2 (00:09→16:56)
[2017-01-21 07:00] VITALS: BP_SYST 168; BP_SYST 173; BP_DIAS 83; BP_DIAS 87; PULSE 80; TEMP 36.5
[2017-01-21 07:04] LABS: BASO % 0.3 %; BASO ABS # 0.03 K/uL (0-0.2); COMPLETE YES; EOS % 0.9 %; HEMATOCRIT 31.8 % (37-47); IG% 0.3 %; LYMPH % 27.3 %; LYMPH ABS # 2.94 K/uL (1.2-3.4); MEAN CELL VOLUME 85.7 fL (80-100); MEAN CORPUSCULAR HEMOGLOBIN 28.3 pg (25-34); MEAN PLATELET VOLUME 10.7 fL (7.4-10.4); MONO % 15.2 %; PLATELET COUNT 292 K/uL (130-400); RED BLOOD COUNT 3.71 M/uL (4.2-5.4); WHITE BLOOD COUNT 10.78 K/uL (4.8-10.8)
[2017-01-21 07:11] VITALS: Ht 160 cm; Wt 76.7 kg
[2017-01-21 07:33] LABS: CHOLESTEROL/HDL RATIO 4.1
[2017-01-21] MEDS ORDERED: NICOTINE 21 MG/24 HR TDSY TD SCH (09:00)
[2017-01-21] MEDS ORDERED: NON-FORMULARY MEDICATION (Vitamins W/ Lipotropics (Lipoflavonoid) 1 TAB) PO SCH (09:00)
[2017-01-21] MEDS ORDERED: NICOTINE 14 MG/24 HR TDSY TD SCH (09:00)
[2017-01-21] MEDS: CLOPIDOGREL BISULFATE 75 MG TAB PO SCH (09:14)
[2017-01-21] MEDS: ASPIRIN 81 MG ECTAB PO SCH (09:14)
[2017-01-21] MEDS: ATORVASTATIN 40 MG TAB PO SCH (09:14)
[2017-01-21] MEDS: LOSARTAN POTASSIUM 25 MG TAB PO SCH (09:14)
[2017-01-21] MEDS: CEROVITE ADV FORMULA TAB PO SCH (09:14)
[2017-01-21] MEDS: FUROSEMIDE 20 MG TAB PO SCH (09:14)
[2017-01-21] MEDS: METOPROLOL TARTRATE 50 MG TAB PO SCH ×2 (09:14→21:39)
[2017-01-21] MEDS: CYANOCOBALAMIN 500 MCG TAB (VIT B-12) PO SCH (09:15)
[2017-01-21] MEDS: RANITIDINE HCL 150 MG TAB PO SCH (09:15)
[2017-01-21] MEDS: PANTOprazole SOD 40 MG TAB PO SCH (09:15)
[2017-01-21] MEDS: SERTRALINE HCL 50 MG TAB PO SCH (09:15)
[2017-01-21] MEDS: PREGABALIN 50 MG CAP PO SCH ×3 (09:16→21:49)
[2017-01-21] MEDS: INSULIN ASPART 100 UNITS/ML 3 ML PEN SQ SCH ×4 (09:52→21:41)
[2017-01-21] MEDS: INSULIN GLARGINE SOLOSTAR 100 UNITS/ML 3 ML PEN SC SCH ×2 (09:53→21:40)
[2017-01-21] MEDS: NICOTINE 21 MG/24 HR TDSY TD SCH (09:56)
[2017-01-21] MEDS: TRAMADOL HCL 50 MG TAB PO PRN (13:06)
--- NOTE | 2017-01-21 15:36 | Pharmacy Progress Note ---
Pharmacy Glycemic Short Note 2 Date of Service Jan 21, 2017. OUTPATIENT ANTIDIABETIC REGIMEN: * Lantus 10 units SQ BID + Novolog per sliding scale * A1c 9.2 % on 01/17/17 ASSESSMENT: * 56 yr old T2DM female admitted to mental health unit. * Patient received 35 units of insulin yesterday with BSGs ranging from 143 - 219 mg/dL * Basal insulin was increased on 01/20 pm * no changes will be made today * fasting decreased from 143 to 128 and I anticipate it will decrease further on 01/22) * Prandial were elevated on 01/20, therefore carb ration was tightened * no changes today PLAN FOR INPATIENT GLYCEMIC CONTROL: * Basal insulin * Lantus 12 units SQ BID * Bolus insulin * NovoLog per scale ACHS or Q6hrs while NPO * Goal Range: Low 110 mg/dL - High 140 mg/dL * Correction Factor: 25 mg/dL/unit * Nutritional / Prandial insulin per carb ratio of 1 unit per 8 grams CHO consumed Thank you.
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
[2017-01-21] MEDS: NICOTINE POLACRILEX 2 MG GUM MT PRN (20:31)
[2017-01-21] MEDS: RISPERIDONE ODT 0.5MG PO SCH (21:39)
[2017-01-21 22:21] VITALS: BP 144/81; PULSE 83
[2017-01-22 07:12] VITALS: BP_SYST 160; BP_SYST 172; BP_DIAS 84; BP_DIAS 85; PULSE 89; PULSE 90; TEMP 37.1
[2017-01-22] MEDS: LOSARTAN POTASSIUM 25 MG TAB PO SCH (08:47)
[2017-01-22] MEDS: METOPROLOL TARTRATE 50 MG TAB PO SCH ×2 (08:48→21:03)
[2017-01-22] MEDS: FUROSEMIDE 20 MG TAB PO SCH (08:48)
[2017-01-22] MEDS: ATORVASTATIN 40 MG TAB PO SCH (08:48)
[2017-01-22] MEDS: ASPIRIN 81 MG ECTAB PO SCH (08:48)
[2017-01-22] MEDS: CEROVITE ADV FORMULA TAB PO SCH (08:49)
[2017-01-22] MEDS: RANITIDINE HCL 150 MG TAB PO SCH (08:49)
[2017-01-22] MEDS: PANTOprazole SOD 40 MG TAB PO SCH (08:49)
[2017-01-22] MEDS: CYANOCOBALAMIN 500 MCG TAB (VIT B-12) PO SCH (08:49)
[2017-01-22] MEDS: SERTRALINE HCL 50 MG TAB PO SCH (08:49)
[2017-01-22] MEDS: PREGABALIN 50 MG CAP PO SCH ×3 (08:49→21:04)
[2017-01-22] MEDS: CLOPIDOGREL BISULFATE 75 MG TAB PO SCH (08:49)
[2017-01-22] MEDS: TRAMADOL HCL 50 MG TAB PO PRN (08:50)
[2017-01-22] MEDS: NICOTINE 21 MG/24 HR TDSY TD SCH (08:50)
[2017-01-22] MEDS: INSULIN ASPART 100 UNITS/ML 3 ML PEN SQ SCH ×4 (09:55→21:06)
[2017-01-22] MEDS: INSULIN GLARGINE SOLOSTAR 100 UNITS/ML 3 ML PEN SC SCH ×2 (09:56→21:05)
[2017-01-22 10:01] VITALS: BP 129/76; PULSE 82; TEMP 37.1
[2017-01-22 10:02] VITALS: O2SAT 96
[2017-01-22] MEDS: IBUPROFEN 800 MG TAB PO PRN (10:12)
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
[2017-01-22] MEDS: RISPERIDONE ODT 0.5MG PO SCH (21:04)
[2017-01-22] MEDS: hydrOXYzine HCL 25 MG TAB PO PRN (23:23)
[2017-01-23] MEDS: IBUPROFEN 800 MG TAB PO PRN ×2 (00:42→15:40)
[2017-01-23] MEDS: hydrOXYzine HCL 25 MG TAB PO PRN ×2 (01:16→22:34)
[2017-01-23] MEDS: TRAMADOL HCL 50 MG TAB PO PRN ×2 (03:03→16:42)
[2017-01-23 07:00] VITALS: BP_SYST 88; BP_SYST 96; BP_DIAS 60; BP_DIAS 65; PULSE 85; TEMP 37.2
[2017-01-23] MEDS: ASPIRIN 81 MG ECTAB PO SCH (10:01)
[2017-01-23] MEDS: LOSARTAN POTASSIUM 25 MG TAB PO SCH (10:01)
[2017-01-23] MEDS: ATORVASTATIN 40 MG TAB PO SCH (10:02)
[2017-01-23] MEDS: METOPROLOL TARTRATE 50 MG TAB PO SCH ×2 (10:03→21:04)
[2017-01-23] MEDS: FUROSEMIDE 20 MG TAB PO SCH (10:03)
[2017-01-23] MEDS: CLOPIDOGREL BISULFATE 75 MG TAB PO SCH (10:03)
[2017-01-23] MEDS: RANITIDINE HCL 150 MG TAB PO SCH (10:04)
[2017-01-23] MEDS: CYANOCOBALAMIN 500 MCG TAB (VIT B-12) PO SCH (10:04)
[2017-01-23] MEDS: PANTOprazole SOD 40 MG TAB PO SCH (10:04)
[2017-01-23] MEDS: CEROVITE ADV FORMULA TAB PO SCH (10:05)
[2017-01-23] MEDS: SERTRALINE HCL 50 MG TAB PO SCH (10:05)
[2017-01-23] MEDS: PREGABALIN 50 MG CAP PO SCH ×3 (10:08→21:04)
[2017-01-23] MEDS: INSULIN ASPART 100 UNITS/ML 3 ML PEN SQ SCH ×4 (10:09→21:08)
[2017-01-23] MEDS ORDERED: INSULIN GLARGINE SOLOSTAR 100 UNITS/ML 3 ML PEN SC SCH (10:15)
[2017-01-23] MEDS ORDERED: LORAZEPAM 0.5 MG TAB PO PRN (10:15)
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
[2017-01-23] MEDS: NICOTINE 21 MG/24 HR TDSY TD SCH (10:22)
[2017-01-23 11:38] VITALS: BP 132/82; PULSE 99
--- NOTE | 2017-01-23 14:35 | Pharmacy Progress Note ---
Pharmacy Glycemic Short Note 2 Date of Service Jan 23, 2017. OUTPATIENT ANTIDIABETIC REGIMEN: * Lantus 10 units SQ BID + Novolog per sliding scale * A1c 9.2 % on 01/17/17 ASSESSMENT: * Patient has been receiving ~ 45 units of insulin per day with adequate control * BSGs 01/22: 113, 191, 82, 200 * BSGs 01/23: 82, 108 * Basal insulin was increased on 01/20 pm * AM fasting BSG is slightly below goal range for inpatient targets. Will reduce basal insulin back to outpatient dosing. * Prandial were elevated on 01/20, therefore carb ration was tightened * no changes today PLAN FOR INPATIENT GLYCEMIC CONTROL: * Basal insulin * Lantus 8 units SQ x 1 dose this AM for "below goal" AM fasting BSG then, resume Lantus 10 units SQ BID * Bolus insulin * NovoLog per scale ACHS or Q6hrs while NPO * Goal Range: Low 110 mg/dL - High 140 mg/dL * Correction Factor: 25 mg/dL/unit * Nutritional / Prandial insulin per carb ratio of 1 unit per 7 grams CHO consumed Thank you.
[2017-01-23 15:05] VITALS: PULSE 87; O2SAT 93
[2017-01-23] MEDS: RISPERIDONE 1 MG TAB PO SCH (21:04)
[2017-01-23 21:05] VITALS: BP 142/82; PULSE 93
[2017-01-23] MEDS: INSULIN GLARGINE SOLOSTAR 100 UNITS/ML 3 ML PEN SC SCH (21:06)
[2017-01-23] MEDS: NYSTATIN POWDER 15GM BTL EXT PRN (21:17)
[2017-01-23] MEDS: ACETAMINOPHEN 325 MG TAB PO PRN (22:34)
[2017-01-24] MEDS: TRAMADOL HCL 50 MG TAB PO PRN ×2 (00:07→23:46)
[2017-01-24] MEDS: hydrOXYzine HCL 25 MG TAB PO PRN ×2 (00:08→23:46)
[2017-01-24] MEDS: IBUPROFEN 800 MG TAB PO PRN ×2 (01:20→16:05)
[2017-01-24 07:01] VITALS: BP_SYST 100; BP_SYST 101; BP_DIAS 61; BP_DIAS 62; PULSE 76; PULSE 77; TEMP 36.7
[2017-01-24 07:02] VITALS: O2SAT 91
[2017-01-24] MEDS: ASPIRIN 81 MG ECTAB PO SCH (09:19)
[2017-01-24] MEDS: FUROSEMIDE 20 MG TAB PO SCH (09:19)
[2017-01-24] MEDS: ATORVASTATIN 40 MG TAB PO SCH (09:19)
[2017-01-24] MEDS: LOSARTAN POTASSIUM 25 MG TAB PO SCH (09:19)
[2017-01-24] MEDS: CYANOCOBALAMIN 500 MCG TAB (VIT B-12) PO SCH (09:20)
[2017-01-24] MEDS: CEROVITE ADV FORMULA TAB PO SCH (09:20)
[2017-01-24] MEDS: RANITIDINE HCL 150 MG TAB PO SCH (09:20)
[2017-01-24] MEDS: PREGABALIN 50 MG CAP PO SCH ×3 (09:20→21:01)
[2017-01-24] MEDS: PANTOprazole SOD 40 MG TAB PO SCH (09:20)
[2017-01-24] MEDS: CLOPIDOGREL BISULFATE 75 MG TAB PO SCH (09:20)
[2017-01-24] MEDS: METOPROLOL TARTRATE 50 MG TAB PO SCH ×2 (09:20→21:02)
[2017-01-24] MEDS: SERTRALINE HCL 50 MG TAB PO SCH (09:21)
[2017-01-24] MEDS: NICOTINE 21 MG/24 HR TDSY TD SCH (09:22)
[2017-01-24 09:23] VITALS: BP 131/80; PULSE 84
[2017-01-24] MEDS: INSULIN ASPART 100 UNITS/ML 3 ML PEN SQ SCH ×4 (09:49→21:54)
[2017-01-24] MEDS: INSULIN GLARGINE SOLOSTAR 100 UNITS/ML 3 ML PEN SC SCH ×3 (09:50→22:00)
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
[2017-01-24] MEDS: NYSTATIN POWDER 15GM BTL EXT PRN (11:00)
[2017-01-24] MEDS: NICOTINE POLACRILEX 2 MG GUM MT PRN (18:40)
[2017-01-24] MEDS: RISPERIDONE 1 MG TAB PO SCH (21:01)
[2017-01-24 21:05] VITALS: BP 134/78; PULSE 80
[2017-01-24] MEDS: ACETAMINOPHEN 325 MG TAB PO PRN (21:18)
[2017-01-25 06:51] VITALS: BP_SYST 143; BP_SYST 145; BP_DIAS 76; BP_DIAS 77; PULSE 66; PULSE 79; TEMP 36.9
[2017-01-25 07:07] VITALS: O2SAT 93
[2017-01-25] MEDS: METOPROLOL TARTRATE 50 MG TAB PO SCH ×2 (08:07→21:26)
[2017-01-25] MEDS: FUROSEMIDE 20 MG TAB PO SCH (08:07)
[2017-01-25] MEDS: ASPIRIN 81 MG ECTAB PO SCH (08:07)
[2017-01-25] MEDS: LOSARTAN POTASSIUM 25 MG TAB PO SCH (08:07)
[2017-01-25] MEDS: ATORVASTATIN 40 MG TAB PO SCH (08:07)
[2017-01-25] MEDS: CEROVITE ADV FORMULA TAB PO SCH (08:08)
[2017-01-25] MEDS: PREGABALIN 50 MG CAP PO SCH ×3 (08:08→21:27)
[2017-01-25] MEDS: CLOPIDOGREL BISULFATE 75 MG TAB PO SCH (08:08)
[2017-01-25] MEDS: PANTOprazole SOD 40 MG TAB PO SCH (08:08)
[2017-01-25] MEDS: SERTRALINE HCL 50 MG TAB PO SCH (08:09)
[2017-01-25] MEDS: CYANOCOBALAMIN 500 MCG TAB (VIT B-12) PO SCH (08:09)
[2017-01-25] MEDS: RANITIDINE HCL 150 MG TAB PO SCH (08:09)
[2017-01-25] MEDS: NICOTINE 21 MG/24 HR TDSY TD SCH (08:14)
[2017-01-25] MEDS: INSULIN GLARGINE SOLOSTAR 100 UNITS/ML 3 ML PEN SC SCH ×2 (08:49→21:18)
[2017-01-25] MEDS: INSULIN ASPART 100 UNITS/ML 3 ML PEN SQ SCH ×4 (08:50→21:13)
[2017-01-25 09:17] LABS: BASO % 0.2 %; BASO ABS # 0.03 K/uL (0-0.2); COMPLETE YES; HEMATOCRIT 31.8 % (37-47); IG% 0.7 %; LYMPH % 19.3 %; LYMPH ABS # 2.34 K/uL (1.2-3.4); MEAN CELL VOLUME 86.9 fL (80-100); MEAN CORPUSCULAR HEMOGLOBIN 28.7 pg (25-34); MEAN PLATELET VOLUME 10.2 fL (7.4-10.4); MONO % 16.5 %; NEUT % 62.3 %; PLATELET COUNT 478 K/uL (130-400); RED BLOOD COUNT 3.66 M/uL (4.2-5.4); WHITE BLOOD COUNT 12.11 K/uL (4.8-10.8)
--- NOTE | 2017-01-25 10:17 | Pharmacy Progress Note ---
Pharmacy Glycemic Short Note 2 Date of Service Jan 25, 2017. OUTPATIENT ANTIDIABETIC REGIMEN: * Lantus 10 units SQ BID + Novolog ASSESSMENT: * Ms Welch is a 56 y/o F currently admitted to the unit. She has a PMH of CAD, CHF, and HTN. Yesterday, her blood sugars ranged from 87-135 mg/dL... she received Lantus 20 units plus 14 units of bolus insulin. Her regimen is slightly basal heavy currently. * Her fasting blood sugar this morning was 150 mg/dL which was against typical patterns for her (higher night blood sugar, lower morning blood sugar). She did refuse correctional insulin (2 units) yesterday. Reasonable to decrease Lantus by 10% to reach a more 50/50 goal ratio. Loosened carbohydrate ratio after lunch since lunch blood sugar trended downwards. PLAN FOR INPATIENT GLYCEMIC CONTROL: * Basal insulin * Lantus 9 units SQ BID * Bolus insulin * NovoLog per scale ACHS or Q6hrs while NPO * Goal Range: Low 110 mg/dL - High 140 mg/dL * Correction Factor: 25 mg/dL/unit * Nutritional / Prandial insulin per carb ratio of 1 unit per 8 grams CHO consumed PLAN FOR DISCHARGE: * According to Elements of Diabetes Care Scoring Scale, goal HbA1C is between 7.6-8.0%... currently her HbA1C is out of goal. Recommend titrating as an outpatient her Lantus and Novolog to goal regimen. She currently requires around 35 units so reasonable to continue that as an outpatient.
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
[2017-01-25] MEDS: IBUPROFEN 800 MG TAB PO PRN ×2 (12:40→22:51)
[2017-01-25] MEDS: NICOTINE POLACRILEX 2 MG GUM MT PRN (16:09)
--- NOTE | 2017-01-25 16:21 | Orthopedic Consultation ---
Orthopedic Consultation Date of Consultation: Jan 25, 2017. Attending Physician: Rosa Ortega M.D. Reason for Consultation: s/p ORIF right ankle fx History of Present Illness Rizwana is a 56 y/o F, 8 days s/p orif of right ankle fx. We were asked to see her regarding her ankle and splint. She states that it feels bloody inside her splint and that there are soft spots on the splint. Past Medical/Surgical History Medical Problems: (1) Closed right ankle fracture Status: Acute (2) Hypoxia Status: Acute Social History Smoking Status: Current Every Day Smoker Marital Status: Housing Status: lives with family Allergies Coded Allergies: Aspirin (Verified Allergy, Unknown, UNKNOWN, 01/16/17) Oxycodone (Verified Allergy, Unknown, 0, 01/16/17) as per [facility] outpx records Home Medications Scheduled Aspirin (Aspirin 81), 81 MG PO DAILY Atorvastatin (Lipitor), 80 MG PO DAILY Clopidogrel (Plavix), 75 MG PO DAILY Cyanocobalamin (Vitamin B-12), 500 MCG PO DAILY Furosemide (Lasix), 20 MG PO DAILY Insulin Aspart (Novolog Flexpen), UNITS SQ UD Insulin Glargine (Lantus), 10 UNITS SC BID Losartan Potassium (Losartan Potassium), 25 MG PO QAM Metoprolol Tartrate (Lopressor) (Lopressor), 50 MG PO BID Multiple Vitamins W/ Minerals (Multi Vitamin and Mineral), 1 TAB PO DAILY Nicotine (Nicoderm Cq 14MG Patch), 1 PATCH TD DAILY Omeprazole (Prilosec), 20 MG PO DAILY Pregabalin (Lyrica), 100 MG PO TID Ranitidine Hcl (Zantac), 300 MG PO DAILY Sertraline (Zoloft), 50 MG PO DAILY Vitamins W/ Lipotropics (Lipoflavonoid), 1 TAB PO DAILY Scheduled PRN Acetaminophen (Tylenol Extra Strength), 1,000 MG PO Q8 PRN for Pain Lorazepam (Ativan), 0.5 MG PO Q8 PRN for Anxiety Nitroglycerin (Nitrostat), 0.4 MG SL UD PRN for Chest Pain Tramadol HCl (Tramadol HCl), 50 MG PO Q6 PRN for severe pain Current Inpatient Medications Current Inpatient Medications Medications (Trade) Dose Ordered Sig/Moises Route Start Time Stop Time Status Last Admin Dose Admin Risperidone (Risperdal M Tab) 0.5 mg Q6 PRN PO 01/20/17 19:00 02/19/17 18:59 01/24/17 01:19 0.5 MG Acetaminophen (Tylenol Tab) 650 mg Q4H PRN PO 01/20/17 19:00 02/19/17 18:59 01/24/17 21:18 650 MG Bismuth Subsalicylate (Kaopectate Liqd) 15 ml PRN PRN PO 01/20/17 19:00 02/19/17 18:59 Al Hydroxide/Mg Hydroxide (Maalox Susp) 30 ml Q4H PRN PO 01/20/17 19:00 02/19/17 18:59 Magnesium Hydroxide (Milk Of Magnesia Susp) 30 ml DAILY PRN PO 01/20/17 19:00 02/19/17 18:59 Sodium Chloride ([place] Nasal [place]) PRN PRN NA 01/20/17 19:00 02/19/17 18:59 Hydroxyzine HCl (Vistaril Tab) 50 mg HSZ PRN PO 01/20/17 19:00 02/19/17 18:59 01/24/17 23:46 50 MG Hydroxyzine HCl (Vistaril Tab) 25 mg Q4H PRN PO 01/20/17 19:00 02/19/17 18:59 Miscellaneous (Remove Nicoderm Patch) 1 ea HS N/A 01/20/17 22:00 02/19/17 21:59 01/24/17 00:21 1 EA Aspirin (Ecotrin Tab) 81 mg DAILY PO 01/21/17 09:00 02/20/17 08:59 01/25/17 08:07 81 MG Atorvastatin Calcium (Lipitor Tab) 80 mg DAILY PO 01/21/17 09:00 02/20/17 08:59 01/25/17 08:07 80 MG Clopidogrel Bisulfate (plAVix TAB) 75 mg DAILY PO 01/21/17 09:00 02/20/17 08:59 01/25/17 08:08 75 MG Cyanocobalamin (Vitamin B-12 Tab) 500 mcg DAILY PO 01/21/17 09:00 02/20/17 08:59 01/25/17 08:09 500 MCG Furosemide (Lasix Tab) 20 mg DAILY PO 01/21/17 09:00 02/20/17 08:59 01/25/17 08:07 20 MG Insulin Aspart (novoLOG ASPART) SLIDING SCALE ACHS SQ 01/20/17 22:00 02/19/17 21:59 01/25/17 08:50 7 UNITS Losartan Potassium (coZAAR TAB) 25 mg QAM PO 01/21/17 09:00 02/20/17 08:59 01/25/17 08:07 25 MG Metoprolol Tartrate (Lopressor Tab) 50 mg BID PO 01/20/17 22:00 02/19/17 21:59 01/25/17 08:07 50 MG Multivitamins/ Minerals (Multivitamin W/ Minerals Tab) 1 tab DAILY PO 01/21/17 09:00 02/20/17 08:59 01/25/17 08:08 1 TAB Nitroglycerin (Nitrostat Tab) 0.4 mg UD PRN SL 01/20/17 19:00 02/19/17 18:59 Ranitidine HCl (zANTac TAB) 300 mg DAILY PO 01/21/17 09:00 02/20/17 08:59 01/25/17 08:09 300 MG Tramadol HCl (Ultram Tab) 50 mg Q6 PRN PO 01/20/17 19:00 02/19/17 18:59 01/24/17 23:46 50 MG Pantoprazole Sodium (Protonix Tab) 40 mg QAM PO 01/21/17 09:00 02/20/17 08:59 01/25/17 08:08 40 MG Miscellaneous Information (Consult Glycemic Management Pharmacy) 1 ea UD PRN N/A 01/20/17 19:20 02/19/17 19:19 Nicotine (Nicoderm Cq 21MG Patch) 1 patch QAM TD 01/21/17 09:00 02/20/17 08:59 01/25/17 08:14 1 PATCH Nicotine Polacrilex (Nicorette 2MG Gum) 1 piece Q2HWA PRN MT 01/20/17 19:30 02/19/17 19:29 01/25/17 16:09 1 PIECE Nystatin (Mycostatin Powder) 1 appln BID PRN EXT 01/20/17 19:45 1/7/18 19:44 01/24/17 11:00 1 APPLN Pregabalin (Lyrica Cap) 50 mg TID PO 01/21/17 09:00 02/20/17 08:59 01/25/17 14:14 50 MG Ibuprofen (Motrin Tab) 800 mg Q8H PRN PO 01/20/17 23:30 02/19/17 23:29 01/25/17 12:40 800 MG Risperidone (Risperdal Tab) 1 mg HS PO 01/23/17 22:00 02/22/17 21:59 01/24/17 21:01 1 MG Sertraline HCl (Zoloft Tab) 75 mg QAM PO 01/24/17 09:00 02/20/17 08:59 01/25/17 08:09 75 MG Lorazepam (Ativan Tab) 0.5 mg DAILY PRN PO 01/23/17 10:15 02/19/17 18:59 Insulin Glargine (Lantus Solostar Pen) 9 units BID SC 01/25/17 09:00 02/24/17 08:59 01/25/17 08:49 9 UNITS Physical Exam Date Time Temp Pulse Resp B/P (MAP) Pulse Ox O2 Delivery O2 Flow Rate FiO2 01/25/17 07:07 93 Room Air 01/25/17 06:51 36.9 66 16 145/77 79 143/76 01/24/17 21:05 80 134/78 She is alert, NAD. Splint is fitting appropriately. It is clean, dry, and intact. She is able to move her toes. Sensation is intact to touch. There is no blood on the splint and no signs of problems with the splint today. Laboratory Results Last 24 Hours Test 01/24/17 17:20 01/24/17 21:12 01/24/17 21:40 01/25/17 08:19 Bedside Glucose 87 mg/dl 123 mg/dl 150 mg/dl Stool Occult Blood NEGATIVE Test 01/25/17 08:53 01/25/17 12:30 White Blood Count 12.11 K/uL Red Blood Count 3.66 M/uL Hemoglobin 10.5 g/dL Hematocrit 31.8 % Mean Corpuscular Volume 86.9 fL Mean Corpuscular Hemoglobin 28.7 pg Mean Corpuscular Hemoglobin Concent 33.0 g/dl Platelet Count 478 K/uL Mean Platelet Volume 10.2 fL Neutrophils (%) (Auto) 62.3 % Lymphocytes (%) (Auto) 19.3 % Monocytes (%) (Auto) 16.5 % Eosinophils (%) (Auto) 1.0 % Basophils (%) (Auto) 0.2 % Neutrophils # (Auto) 7.54 K/uL Lymphocytes # (Auto) 2.34 K/uL Monocytes # (Auto) 2.00 K/uL Eosinophils # (Auto) 0.12 K/uL Basophils # (Auto) 0.03 K/uL RDW Standard Deviation 42.4 fL RDW Coefficient of Variation 13.3 % Immature Granulocyte % (Auto) 0.7 % Immature Granulocyte # (Auto) 0.08 K/uL Bedside Glucose 106 mg/dl Assessment & Plan POD #8 from ORIF right ankle fx Plan: She was seen and examined by Dr. Yo today. The splint is fitting appropriately and is dry at this time. We reassured that it really looks fine and that it would be good to leave the splint on. We'd prefer not to remove the post op dressing and splint yet at this time. We also reassured that softness of certain areas on the splint are okay and that is by design to allow for swelling. She should continue to elevate the RLE, keep pressure off the heel, continue NWB RLE. We should see her in approximately 1 more week for her post op visit.
[2017-01-25] MEDS: TRAMADOL HCL 50 MG TAB PO PRN (18:37)
[2017-01-25] MEDS: ACETAMINOPHEN 325 MG TAB PO PRN (19:43)
[2017-01-25] MEDS: RISPERIDONE 1 MG TAB PO SCH (21:28)
[2017-01-25 21:36] VITALS: BP 164/83; PULSE 88
[2017-01-25] MEDS: NYSTATIN POWDER 15GM BTL EXT PRN (23:15)
[2017-01-26] MEDS: hydrOXYzine HCL 25 MG TAB PO PRN ×2 (00:03→01:20)
[2017-01-26] MEDS: TRAMADOL HCL 50 MG TAB PO PRN ×3 (00:47→20:34)
[2017-01-26] MEDS: ACETAMINOPHEN 325 MG TAB PO PRN ×3 (01:22→21:58)
[2017-01-26] MEDS: INSULIN ASPART 100 UNITS/ML 3 ML PEN SQ SCH ×3 (08:00→21:56)
[2017-01-26 08:53] VITALS: BP 113/76; PULSE 89; TEMP 36.9
[2017-01-26] MEDS: ASPIRIN 81 MG ECTAB PO SCH (08:55)
[2017-01-26] MEDS: LOSARTAN POTASSIUM 25 MG TAB PO SCH (08:55)
[2017-01-26] MEDS: CEROVITE ADV FORMULA TAB PO SCH (08:56)
[2017-01-26] MEDS: CLOPIDOGREL BISULFATE 75 MG TAB PO SCH (08:56)
[2017-01-26] MEDS: PREGABALIN 50 MG CAP PO SCH ×3 (08:56→21:50)
[2017-01-26] MEDS: METOPROLOL TARTRATE 50 MG TAB PO SCH ×2 (08:56→21:50)
[2017-01-26] MEDS: ATORVASTATIN 40 MG TAB PO SCH (08:56)
[2017-01-26] MEDS: PANTOprazole SOD 40 MG TAB PO SCH (08:56)
[2017-01-26] MEDS: FUROSEMIDE 20 MG TAB PO SCH (08:56)
[2017-01-26] MEDS: RANITIDINE HCL 150 MG TAB PO SCH (08:57)
[2017-01-26] MEDS: CYANOCOBALAMIN 500 MCG TAB (VIT B-12) PO SCH (08:57)
[2017-01-26] MEDS: SERTRALINE HCL 50 MG TAB PO SCH (08:57)
[2017-01-26] MEDS: NICOTINE 21 MG/24 HR TDSY TD SCH (08:57)
[2017-01-26] MEDS: INSULIN GLARGINE SOLOSTAR 100 UNITS/ML 3 ML PEN SC SCH ×2 (09:13→21:52)
[2017-01-26] MEDS: IBUPROFEN 800 MG TAB PO PRN ×2 (09:58→19:23)
--- NOTE | 2017-01-26 10:23 | Pharmacy Progress Note ---
Pharmacy Glycemic Short Note 2 Date of Service Jan 26, 2017. OUTPATIENT ANTIDIABETIC REGIMEN: * Lantus 10 units twice daily + Novolog ASSESSMENT: * Ms Welch is a 56 y/o F admitted to the [facility]. She has been receiving around 35-40 units of insulin per day. Her basal rate is set a 18 units/day. Her fasting this morning is 106 mg/dL which is reasonable for her goal range. Continue current Lantus. * Her post-prandial blood sugars appear well controlled expect for her bedtime reading. These tend to be elevated... the next morning the patient's blood sugar is well controlled. Suspect that the dinner carbohydrate ratio is not tight enough to control blood sugar spikes at that time. Tighten the carbohydrate ratio just at dinner. PLAN FOR INPATIENT GLYCEMIC CONTROL: * Basal insulin * Lantus 9 units SQ BID * Bolus insulin * NovoLog per scale ACHS or Q6hrs while NPO * Goal Range: Low 110 mg/dL - High 140 mg/dL * Correction Factor: 25 mg/dL/unit * Nutritional / Prandial insulin per carb ratio of 1 unit per 8 grams CHO consumed except at dinner use carbohydrate ratio of 1:6 PLAN FOR DISCHARGE: * see note from 01-25-17
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
[2017-01-26] MEDS: NICOTINE POLACRILEX 2 MG GUM MT PRN (15:57)
[2017-01-26] MEDS ORDERED: INSULIN ASPART 100 UNITS/ML 3 ML PEN SQ SCH (17:15)
[2017-01-26 21:49] VITALS: BP 166/87; PULSE 79
[2017-01-26] MEDS: RISPERIDONE 1 MG TAB PO SCH (21:50)
[2017-01-27] MEDS: hydrOXYzine HCL 25 MG TAB PO PRN ×2 (00:07→01:27)
[2017-01-27] MEDS: NYSTATIN POWDER 15GM BTL EXT PRN (00:10)
[2017-01-27 07:49] VITALS: BP 144/78; PULSE 90; TEMP 36.5
[2017-01-27] MEDS: INSULIN ASPART 100 UNITS/ML 3 ML PEN SQ SCH (08:00)
[2017-01-27] MEDS: ATORVASTATIN 40 MG TAB PO SCH (08:02)
[2017-01-27] MEDS: ASPIRIN 81 MG ECTAB PO SCH (08:02)
[2017-01-27] MEDS: LOSARTAN POTASSIUM 25 MG TAB PO SCH (08:02)
[2017-01-27] MEDS: NICOTINE 21 MG/24 HR TDSY TD SCH (08:02)
[2017-01-27] MEDS: CLOPIDOGREL BISULFATE 75 MG TAB PO SCH (08:03)
[2017-01-27] MEDS: RANITIDINE HCL 150 MG TAB PO SCH (08:03)
[2017-01-27] MEDS: CYANOCOBALAMIN 500 MCG TAB (VIT B-12) PO SCH (08:03)
[2017-01-27] MEDS: METOPROLOL TARTRATE 50 MG TAB PO SCH (08:03)
[2017-01-27] MEDS: PANTOprazole SOD 40 MG TAB PO SCH (08:03)
[2017-01-27] MEDS: CEROVITE ADV FORMULA TAB PO SCH (08:03)
[2017-01-27] MEDS: SERTRALINE HCL 50 MG TAB PO SCH (08:03)
[2017-01-27] MEDS: FUROSEMIDE 20 MG TAB PO SCH (08:03)
[2017-01-27] MEDS: PREGABALIN 50 MG CAP PO SCH (08:07)
[2017-01-27] MEDS ORDERED: INSULIN GLARGINE SOLOSTAR 100 UNITS/ML 3 ML PEN SC SCH (09:00)
[2017-01-27] MEDS ORDERED: INSDGI SC (09:53)
[2017-01-27] MEDS ORDERED: RSP1 PO (09:53)
[2017-01-27] MEDS ORDERED: SERT50TA PO (09:53)
[2017-01-27] MEDS ORDERED: NYSP EXT (09:53)
[2017-01-27] MEDS ORDERED: LYR/50 PO (09:53)
[2017-01-27] MEDS ORDERED: DESTROY THIS MEDICATION ONE (11:00)
[2017-01-27] MEDS ORDERED: NCR2 MT (11:00)
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
== END 2017-01-27 11:47 | disposition home or self-care (01) | DRG 885 ==
LOC: C.MHU 18:28
PROVIDERS: ADMIT Psychiatry & Neurology Child & Adolescent Psychiatry; ATTEND Psychiatry & Neurology Psychiatry
DX: F29 Unspecified psychosis not due to a substance or known physiological condition (principal); J96.01 Acute respiratory failure with hypoxia; D64.9 Anemia, unspecified; S82.841A Displaced bimalleolar fracture of right lower leg, initial encounter for closed fracture; E11.9 Type 2 diabetes mellitus without complications; E78.5 Hyperlipidemia, unspecified; K21.9 Gastro-esophageal reflux disease without esophagitis; J44.9 Chronic obstructive pulmonary disease, unspecified; F17.200 Nicotine dependence, unspecified, uncomplicated; M54.9 Dorsalgia, unspecified; G89.29 Other chronic pain; Z79.4 Long term (current) use of insulin; Z79.82 Long term (current) use of aspirin; Z79.899 Other long term (current) drug therapy; Z81.8 Family history of other mental and behavioral disorders; Z88.6 Allergy status to analgesic agent; W19.XXXA Unspecified fall, initial encounter; Z98.890 Other specified postprocedural states

== ENCOUNTER 2021-03-16 13:26 | Inpatient (IN) ==
[2021-03-16] MEDS ORDERED: MoRPHine SULFATE 4 MG/ML 1 ML CARP\\VIAL IV STA (14:01)
[2021-03-16] MEDS ORDERED: SODIUM CHLORIDE 0.9% 1000ML 1,000 ML IV SCH (14:03)
[2021-03-16 14:28] LABS: Hemoglobin 7.9 g/dL (12.0-16.0); Mean Corpuscular Hgb Conc 29.3 g/dL (32-36); Mean Corpuscular Volume 88.8 fL (80-100); Mean Platelet Volume 11.2 fL (7.4-10.4); Platelet Count 288 K/uL (130-400); RDW Coefficient of Variation 15.9 % (11.5-14.5); RDW Standard Deviation 51.1 fL (36.4-46.3); Red Blood Count 3.04 M/uL (4.2-5.4); White Blood Count 17.32 K/uL (4.8-10.8)
--- NOTE | 2021-03-16 14:45 | Emergency Department Note ---
Impression & Plan Anemia, Fall, Bimalleolar fracture of left ankle, Weakness, Lisfranc fracture ED Provider Note CHIEF COMPLAINT: Fall HISTORY OF PRESENT ILLNESS: Rizwana Welch is a 60 year old female with history of CAD s/p bypass on bASA and Plavix, CHF, mitral valve regurgitation, DM2, HTN, DLD, GERD, neuropathy, among others listed below who presents to the Emergency Department via EMS for evaluation of pain to her left lower extremity which has been worsening since she suffered a fall about 10 hours prior to arrival. At the time of onset, the patient states that she was walking back from the bath room when her legs gave out on her and she fell onto the hard floor. She denies prodromal symptoms. She is unsure if she hit her head during the episode but denies losing consciousness. She had significant pain to her entire left lower extremity, especially over her foot and ankle and states that she was not able to get up secondary to her discomfort. She was eventually able to crawl back to the couch where she laid for the rest of the morning. Due to her ongoing pain and inability to get up this morning, EMS was called and brought her to the emergency department for further evaluation. Currently, she rates her discomfort as a 10/10 which worsens with attempts of movement. She has not a ttempted to take any medications for her discomfort. She does state that she has a headache but otherwise denies pain to her neck, chest, abdomen, right hip, back, BUE or RLE. No numbness/tingling above baseline history of neuropathy. The patient denies recent fever/chills, chest pain, shortness of breath, abdominal pain, nausea/vomiting, diarrhea or urinary symptoms. No hematochezia or melena. No other acute complaints. Of note, the patient states that she did take her morning pills but did not take any medications. She has also not had anything to eat or drink. REVIEW OF SYSTEMS: 10 systems were reviewed and were negative unless otherwise stated in HPI as above PHYSICAL EXAM: VITALS: Vitals are noted on the nurse's note and reviewed by myself. Vital signs stable. General: Resting in bed, appears ill, crying out in pain HEENT: Normocephalic, atraumatic, pupils 2mm and reactive to light with EOMI bilaterally, TMs clear without hemotympanum, mucous membranes dry, oropharynx c lear without lesions Neck: No mid-line cervical tenderness, ROM intact without pain Resp: Good inspiratory effort on room air, lung sounds clear bilaterally, no tenderness to palpation of the chest wall CV: Regular rate and rhythm, peripheral pulses palpated Back: No midline tenderness to the thoracic spine, no midline tenderness to the lumbar spine, no obvious step-offs or deformities Abd: Soft, non-distended, non-tender to palpation Rectal: Normal tone, stool in vault, no gross blood, guaiac test negative. MSK/Integumentary: With attention to the LLE, edema and ecchymosis over the left foot, ankle and distal tib/fib with tenderness to palpation. Also tender to palpation over the left knee, thigh and hip. ROM of the LLE limited secondary to pain. Able to move toes, sensation and d/p pulse intact. No tenderness to palpation over the BUE or RLE, moving these extremities without apparent pain or difficulty Integumentary: Overall pale in appearance, skin otherwise warm and dry Neuro: Awake, alert and oriented x 3, interacting and answering questions appropriately Differential diagnosis includes intracranial injury, cervical spine injury, intrathoracic injury, intraabdominal injury, GI bleed, infectious etiology, fracture, subluxation, dislocation, contusion, ligamentous injury, ne urovascular, compartment syndrome, rhabdomyolysis, as well as other pathologies were considered. EMERGENCY DEPARTMENT COURSE: Physical exam and history were performed. Nursing triage notes, EMR, and medication list were personally reviewed. Patient is a 60 year old female with history of CAD s/p bypass on bASA and Plavix, CHF, mitral valve regurgitation, DM2, HTN, DLD, GERD, neuropathy, among others listed below who presents to the Emergency Department via EMS for evaluation of pain to her left lower extremity which has been worsening since she suffered a fall about 10 hours prior to arrival. Additional history as described above. On exam, she was overall pale in appearance and looks generally unwell. She was crying out in pain. She was noted to have edema and ecchymosis over the left foot, ankle and distal tib-fib with tenderness to palpation. Also tender to palpation over the left knee, thigh and hip. Range of motion of the LLE limited secondary to pain. Able to move toes, sensation and DP pulse intact. No other outward signs of trauma and moving all other extremities without apparent pain or difficulty. She denied having pain to her head, neck, chest, abdomen or right hip. Her abdomen was soft, nondistended and nontender to palpation. On rectal exam, she did have normal tone, stool in vault, no gross blood. Guaiac test negative. The patient was offered pain medication. IV access was established and she was given morphine 4 mg. EKG was obtained and reviewed by myself. This did show normal sinus rhythm at 79 bpm with a left bundle branch block. No concern for acute ischemic change. When compared to study from 01/20/2017, left bundle branch block now present. Labs were obtained and reviewed by myself as below. Of note, she did have a leukocytosis with a WBC of 17.32. Concern for acute anemia with hemoglobin 7.9 which is down from 10.5 on previous labs in 2017. Coagulation studies WNL. Electrolytes WNL. Renal indices stable. LFTs nondiagnostic. Troponin not elevated at less than 0.03. Her blood glucose was noted to be elevated at 343 she had noted that she did not take any insulin this morning. She was given given 7 units of NovoLog for coverage. CT of the head and neck without contrast were obtained and reviewed by radiologist and myself as below. Images were negative for acute traumatic injuries. CT of the chest, abdomen and pelvis with contrast were also obtained. Images did show cardiomegaly with advanced coronary artery calcification, small right pleural effusion, mildly thickened and hyperemic gastric mucosa, right breast nodule, and enlarged mediastinal and hilar lymph nodes. Otherwise, negative for acute traumatic injuries. X-rays of the left lower extremity were obtained and reviewed by radiologist and myself as below. Images did show a left bimalleolar ankle fracture, oblique fracture at the base of the first metatarsal extending into the first tarsometatarsal joint and irregularity of the articulation between the base of the first and second metatarsals concerning for Lisfranc injury. Upon reevaluation, the patient was experiencing additional discomfort after returning back from the CAT scan/x-ray. She stated that morphine does not usually work for her. She was given Dilaudid 1 mg. I discussed the results of the above imaging with her and her daughter at bedside as well as my attending, Dr. Florez, who was involved throughout the patient's course of care. As she was found to be anemic and weak which led to a fall today, we feel that she would benefit from continued management in the hospital. Demetria Yo PA-C of the [facility] hospitalist group was contacted and agreed to evaluate the patient for further management. I did also contact Dr. Mcclain of orthopedics who advised placing the patient's ankle/foot in a splint. An Ortho-Glass splint was applied as follows: Splint placement: Splint: Left ankle posterior and stirrup Indication: Bimalleolar and lisfranc fractures Ortho-Glass splint was applied by the ED phlebotomy services technician under my supervision. Neurovascular status reassessed by myself status post splint placement and was intact. I updated the patient and her daughter about my discussions with the hospitalist and orthopedist they verbalized their understanding and agreement with the treatment plan as above. The chart was completed utilizing [employer] Speech Voice Recognition Software. Grammatical errors, random word insertions, pronoun errors, and incomplete sentences are an occasional consequence of this system due to software limitations, ambient noise, and hardware issues. Any formal questions or concerns about the content, text, or information contained within the body of this dictation should be directly addressed to the provider for clarification. Past Med/Surg History Medical History Anxiety Carpal tunnel syndrome, left Chronic congestive heart failure with left ventricular diastolic dysfunction Coronary artery disease Diabetes mellitus, type 2 Psychotic disorder Tobacco use disorder Ulnar neuropathy at elbow of left upper extremity Surgical History Status post cholecystectomy Status post coronary artery bypass grafting Status post hysterectomy Status post ORIF of fracture of ankle [id number] Family History Other Diabetes Heart disease Social History Smoking Status: Current every day smoker Tobacco Type: Cigarettes packs per day: 1; Years Smoked: 35; Hx Alcohol Use: No Hx Substance Use: No Feels Safe at Home: Yes Allergies Allergies Allergy/AdvReac Type Severity Reaction Status Date / Time latex Allergy Mild Rash Verified 03/16/21 17:36 aspirin Allergy Unknown UNKNOWN Verified 03/16/21 17:36 oxycodone AdvReac Intermediate HALLUCINATI Verified 03/16/21 17:36 ONS Home Meds Home Medications Medication Instructions Recorded Confirmed aspirin 81 mg tablet 81 mg PO DAILY 03/16/21 03/16/21 atorvastatin 80 mg tablet 80 mg PO HS 03/16/21 03/16/21 clopidogrel 75 mg tablet 75 mg PO DAILY 03/16/21 03/16/21 donepezil 5 mg tablet 5 mg PO HS 03/16/21 03/16/21 duloxetine 30 mg capsule,delayed 30 mg PO QA 03/16/21 03/16/21 release duloxetine 60 mg capsule,delayed 60 mg PO QA 03/16/21 03/16/21 release furosemide 20 mg tablet 60 mg PO DAILY 03/16/21 03/16/21 gabapentin 300 mg capsule See Rx Instructions .ROUTE .COMPLEX 03/16/21 03/16/21 insulin glargine 100 unit/mL (3 46 unit SUBCUT [facility] 03/16/21 03/16/21 mL) subcutaneous pen (Casual StepsYahir U-100 Insulin) lisinopril 10 mg tablet 10 mg PO DAILY 03/16/21 03/16/21 metoprolol succinate 50 mg 50 mg PO DAILY 03/16/21 03/16/21 tablet,extended release 24 hr omeprazole 20 mg capsule,delayed 20 mg PO DAILY 03/16/21 03/16/21 release quetiapine 200 mg tablet 200 mg PO HS 03/16/21 03/16/21 topiramate 50 mg tablet 50 mg PO BID 03/16/21 03/16/21 tramadol 50 mg tablet 50 mg PO Q6H PRN 03/16/21 03/16/21 Results & Data (ED) Vital Signs Vital Signs - 24 hr 03/16/21 13:18 03/16/21 13:23 03/16/21 15:42 Temperature 36.9 C 36.9 C Temperature Source Oral Oral Pulse Rate 80 84 Pulse Rate [Left Finger] 80 Pulse Rate from SpO2 Sensor 83 Pulse Rhythm Regular Pulse Rhythm [Left Finger] Regular Pulse Strength Normal Pulse Strength [Left Finger] Normal Respiratory Rate 20 20 14 Respiratory Effort / Characteristics Non-Labored Non-Labored Respiratory Depth Normal Normal Respiratory Pattern Regular Regular Blood Pressure 131/61 Blood Pressure [Right Arm] 131/61 Blood Pressure Mean 84 Blood Pressure Mean [Right Arm] 84 Blood Pressure Position Sitting Blood Pressure Position [Right Arm] Sitting Pulse Oximetry 90 90 95 Oxygen Delivery Method Room Air Room Air Nasal Cannula Oxygen Flow Rate 2 Sepsis Recent Fever Within 48 Hours No Sepsis New/Unexplained Change in Mental Status N/A Sepsis Action Taken by Nursing No Action Required 03/16/21 16:00 03/16/21 16:01 03/16/21 17:03 Temperature Temperature Source Pulse Rate 83 82 84 Pulse Rate [Left Finger] Pulse Rate from SpO2 Sensor 83 83 84 Pulse Rhythm Pulse Rhythm [Left Finger] Pulse Strength Pulse Strength [Left Finger] Respiratory Rate 21 11 L 9 L Respiratory Effort / Characteristics Respiratory Depth Respiratory Pattern Blood Pressure 152/80 H 122/60 Blood Pressure [Right Arm] Blood Pressure Mean 104 80 Blood Pressure Mean [Right Arm] Blood Pressure Position Blood Pressure Position [Right Arm] Pulse Oximetry 94 100 100 Oxygen Delivery Method Nasal Cannula Nasal Cannula Oxygen Flow Rate 2 2 Sepsis Recent Fever Within 48 Hours Sepsis New/Unexplained Change in Mental Status Sepsis Action Taken by Nursing 03/16/21 17:30 03/16/21 18:00 03/16/21 18:30 Temperature Temperature Source Pulse Rate 82 82 81 Pulse Rate [Left Finger] Pulse Rate from SpO2 Sensor 82 82 81 Pulse Rhythm Pulse Rhythm [Left Finger] Pulse Strength Pulse Strength [Left Finger] Respiratory Rate 14 20 Respiratory Effort / Characteristics Respiratory Depth Respiratory Pattern Blood Pressure 106/53 L 123/68 113/55 L Blood Pressure [Right Arm] Blood Pressure Mean 70 86 74 Blood Pressure Mean [Right Arm] Blood Pressure Position Blood Pressure Position [Right Arm] Pulse Oximetry 100 96 96 Oxygen Delivery Method Oxygen Flow Rate Sepsis Recent Fever Within 48 Hours Sepsis New/Unexplained Change in Mental Status Sepsis Action Taken by Nursing 03/16/21 19:00 Temperature Temperature Source Pulse Rate 79 Pulse Rate [Left Finger] Pulse Rate from SpO2 Sensor Pulse Rhythm Pulse Rhythm [Left Finger] Pulse Strength Pulse Strength [Left Finger] Respiratory Rate 18 Respiratory Effort / Characteristics Respiratory Depth Respiratory Pattern Blood Pressure 126/71 Blood Pressure [Right Arm] Blood Pressure Mean 89 Blood Pressure Mean [Right Arm] Blood Pressure Position Blood Pressure Position [Right Arm] Pulse Oximetry 98 Oxygen Delivery Method Nasal Cannula Oxygen Flow Rate 2 Sepsis Recent Fever Within 48 Hours Sepsis New/Unexplained Change in Mental Status Sepsis Action Taken by Nursing Laboratory Data Result diagrams: 03/16/21 14:15 03/16/21 14:15 Lab Results 03/16/21 03/16/2103/16/22 Range/Units 14:15 14:15 14:15 WBC 17.32 H (4.8-10.8) K/uL RBC 3.04 L (4.2-5.4) M/uL Hgb 7.9 L (12.0-16.0) g/dL Hct 27.0 L (37-47) % MCV 88.8 (80-100) fL MCH 26.0 (25-34) pg MCHC 29.3 L (32-36) g/dL RDW Std Deviation 51.1 H (36.4-46.3) fL RDW Coeff of Fabio 15.9 H (11.5-14.5) % Plt Count 288 (130-400) K/uL MPV 11.2 H (7.4-10.4) fL Neutrophils % (Manual) 76.1 % Lymphocytes % (Manual) 10.6 % Monocytes % (Manual) 10.6 % Eosinophils % (Manual) 2.7 % Neutrophils # (Manual) 13.18 H (1.4-6.5) K/uL Total Absolute Neuts 13.18 H (1.4-6.5) K/uL Lymphocytes # (Manual) 1.84 (1.2-3.4) K/uL Total Abs Lymphocytes 1.84 (1.2-3.4) K/uL Monocytes # (Manual) 1.84 H (0.11-0.59) K/uL Eosinophils # (Manual) 0.47 (0-0.5) K/uL Polychromasia 1+ Hypochromasia Present PT (9.0-12.0) Seconds INR (0.9-1.1) APTT (21.0-31.0) Seconds PTT Ratio Sodium 137 (136-145) mmol/L Potassium 3.9 (3.5-5.1) mmol/L Chloride 103 (98-107) mmol/L Carbon Dioxide 29 (21-32) mmol/L Anion Gap 5 (3-11) BUN 16 (6-23) mg/dl Creatinine 0.93 (0.6-1.2) mg/dl Est Cr Clr Drug Dosing 63.1 ml/min Est GFR ( Amer) 76.3 ml/min Est GFR (Non-Af Amer) 65.9 ml/min BUN/Creatinine Ratio 17.2 (10-20) Glucose 343 H* (70-99(Fasting)) mg/dl POC Glucose (70-99) mg/dl Lactate 1.8 (0.4-2.0) mmol/L Calcium 9.1 (8.5-10.1) mg/dl Total Bilirubin 0.5 (0.2-1.0) mg/dl AST 21 (13-39) U/L ALT 22 (7-52) U/L Alkaline Phosphatase 72 (34-104) U/L Total Creatine Kinase 53 (26-192) U/L Troponin I < 0.03 (0-0.04) ng/ml Total Protein 6.4 (6.0-8.3) gm/dl Albumin 3.6 (3.4-5.0) gm/dl Globulin 2.8 (2.5-4.0) gm/dl Albumin/Globulin Ratio 1.3 (0.9-2) SARS-CoV-2, RNA, NAAT (NEGATIVE) 03/16/21 03/16/21 03/16/21 Range/Units 14:15 16:10 19:17 WBC (4.8-10.8) K/uL RBC (4.2-5.4) M/uL Hgb (12.0-16.0) g/dL Hct (37-47) % MCV (80-100) fL MCH (25-34) pg MCHC (32-36) g/dL RDW Std Deviation (36.4-46.3) fL RDW Coeff of Fabio (11.5-14.5) % Plt Count (130-400) K/uL MPV (7.4-10.4) fL Neutrophils % (Manual) % Lymphocytes % (Manual) % Monocytes % (Manual) % Eosinophils % (Manual) % Neutrophils # (Manual) (1.4-6.5) K/uL Total Absolute Neuts (1.4-6.5) K/uL Lymphocytes # (Manual) (1.2-3.4) K/uL Total Abs Lymphocytes (1.2-3.4) K/uL Monocytes # (Manual) (0.11-0.59) K/uL Eosinophils # (Manual) (0-0.5) K/uL Polychromasia Hypochromasia PT 10.3 (9.0-12.0) Seconds INR 1.0 (0.9-1.1) APTT 24.6 (21.0-31.0) Seconds PTT Ratio 0.9 Sodium (136-145) mmol/L Potassium (3.5-5.1) mmol/L Chloride (98-107) mmol/L Carbon Dioxide (21-32) mmol/L Anion Gap (3-11) BUN (6-23) mg/dl Creatinine (0.6-1.2) mg/dl Est Cr Clr Drug Dosing ml/min Est GFR ( Amer) ml/min Est GFR (Non-Af Amer) ml/min BUN/Creatinine Ratio (10-20) Glucose (70-99(Fasting)) mg/dl POC Glucose 246 H (70-99) mg/dl Lactate (0.4-2.0) mmol/L Calcium (8.5-10.1) mg/dl Total Bilirubin (0.2-1.0) mg/dl AST (13-39) U/L ALT (7-52) U/L Alkaline Phosphatase (34-104) U/L Total Creatine Kinase (26-192) U/L Troponin I (0-0.04) ng/ml Total Protein (6.0-8.3) gm/dl Albumin (3.4-5.0) gm/dl Globulin (2.5-4.0) gm/dl Albumin/Globulin Ratio (0.9-2) SARS-CoV-2, RNA, NAAT NEGATIVE (NEGATIVE) Administered Medications Discontinued Medications Hydromorphone HCl (Hydromorphone Inj 1 Mg/Ml Syringe) 1 mg IV NOW STA Stop: 03/16/21 15:45 Last Admin: 03/16/21 16:11 Dose: 1 mg Documented by: [id number] Sodium Chloride (Nss 1000ml) 1,000 mls @ 999 mls/hr IV .Q1H1M SAMANTHA Stop: 03/16/21 15:03 Last Infusion: 03/16/21 15:40 Dose: 0 mls/hr Documented by: [id number] Admin: 03/16/21 14:20 Dose: 999 mls/hr Documented by: [id number] Insulin Aspart (Insulin Aspart Per Unit) 7 units SC NOW STA Stop: 03/16/21 16:22 Last Admin: 03/16/21 16:59 Dose: 7 units Documented by: [id number] Cosigned by: [id number] Ioversol (Optiray 320 100ml) 95 ml IV ONCE ONE Stop: 03/16/21 16:43 Last Admin: 03/16/21 16:42 Dose: 95 ml Documented by: [id number] Morphine Sulfate (Morphine Sulfate 4 Mg/Ml 1 Ml Carp\Vial) 4 mg IV NOW STA Stop: 03/16/21 14:02 Last Admin: 03/16/21 14:20 Dose: 4 mg Documented by: [id number] Imaging Data Radiologist's Impression: Cervical Spine CT 03/16/21 13:55 CT SCAN OF THE CERVICAL SPINE CLINICAL HISTORY: Fall. COMPARISON STUDY: No priors. TECHNIQUE: CT scan of the cervical spine is performed from the skull base to the upper thoracic spine. Images are reviewed in the axial, sagittal, and coronal planes. IV contrast was not administered for this examination. A dose lowering technique was utilized adhering to the principles of ALARA. CT DOSE: 1136.67 mGy.cm FINDINGS: Skeletal structures: The skeletal structures are osteopenic. There is no evidence of fracture or subluxation involving the cervical spine. Vertebral body height and alignment are maintained. There is straightening of the cervical lordosis. Small anterior osteophytes are seen throughout. The odontoid process and lateral masses are intact. The atlantoaxial articulation is preserved noting mild productive degenerative change. The spinous processes appear intact. Intervertebral discs: The disc spaces are maintained. Central canal: Posterior disc osteophyte complexes at C3-C4, C4-C5, and C5-C6 may contribute to multilevel acquired compromise of the central canal. Soft tissues: The prevertebral and paraspinous soft tissues are within normal limits. There is atherosclerotic calcification of the carotid bulbs. Calvarium: The visualized calvarium at the skull base appears intact. Brain parenchyma: Partially visualized brain parenchyma at the skull base is within normal limits. Sinuses and mastoids: The visualized paranasal sinuses are clear. The mastoid air cells are well pneumatized. Lung apices: Clear as visualized. IMPRESSION: 1. There is no evidence of fracture or subluxation involving the cervical spine. 2. Osteopenia and spondylotic change as above. ACT 112: Negative or not required by law. Electronically signed by: Geovani Dumont M.D. 03/16/2021 2:53 PM Femur X-Ray 03/16/21 13:55 XR hip LT 2V w pelvis, XR femur LT 2V routine CLINICAL HISTORY: Fall, pain. COMPARISON STUDY: No previous studies for comparison. TECHNIQUE: AP pelvis and 2 left hip views along with AP and lateral left femur views FINDINGS: Bones: There is no evidence for an acute fracture or dislocation. There is no lytic or blastic lesion. Joints: The joint spaces are maintained. The bones are in anatomic alignment. Soft tissues: There is no focal soft tissue abnormality. There is no radiopaque foreign body. IMPRESSION: No acute osseous pathology. ACT 112: Negative or not required by law. Electronically signed by: Juan Francisco Serrano M.D. 03/16/2021 3:23 PM Foot X-Ray 03/16/21 13:55 XR foot LT min 3V routine CLINICAL HISTORY: fall, ecchymosis/edema. COMPARISON STUDY: No previous studies for comparison. TECHNIQUE: 3 left foot views FINDINGS: Bones: As seen on tibia and fibula films, oblique fractures of distal tibia and fibula are present. Again, left ankle films are recommended for further evaluation. There is an oblique fracture through the base of the first metatarsal, laterally. It is minimally displaced. It extends into the first tarsometatarsal joint and there is irregularity of the articulation between the bases of the first and second metatarsals. The presence of the Lisfranc injury cannot be excluded. If indicated clinically, follow-up CT would be the study of choice for further evaluation. No other definite fractures are seen of the bones the foot. There is no lytic or blastic lesion. Joints: The remaining joint spaces are maintained. The bones are in anatomic alignment. Soft tissues: There is soft tissue swelling of the foot. There is no radiopaque foreign body. IMPRESSION: 1. There are again fractures of the distal tibia and fibula. Ankle radiographs are again recommended for further evaluation. 2. There is an oblique fracture present at the base of the first metatarsal, laterally extending into the first tarsometatarsal joint. 3. There is irregularity of the articulation between the bases of the first and second metatarsals as well. The presence of a Lisfranc injury cannot be excluded. If indicated clinically, follow-up CT would be the study of choice for further evaluation. 4. Soft tissue swelling. ACT 112: Negative or not required by law. Electronically signed by: Juan Francisco Serrano M.D. 03/16/2021 3:[address] 03/16/21 13:55 CT head/brain wo con CLINICAL HISTORY: fall, on plavix . Evaluate for bleed COMPARISON STUDY: 01/16/2017 CT DOSE: TECHNIQUE: Standard CT of the Brain was performed without IV contrast. A dose lowering technique was utilized adhering to the principles of ALARA. FINDINGS: Extraaxial space: There is no evidence for subdural hematoma. There are no extra-axial fluid collections. Ventricles and cisterns: The ventricles are normal in size and configuration. There is no evidence for midline shift or mass effect. Parenchyma: There is no subarachnoid or intraparenchymal hemorrhage. There is no evidence for an acute infarct or cerebral edema. There is homogeneous attenuation of the brain parenchyma. There are no gross mass lesions. Osseous structures: There is no evidence for an acute fracture. The visualized paranasal sinuses are clear. The mastoid air cells are clear bilaterally. Soft tissues: There is no evidence for focal soft tissue swelling. IMPRESSION: No acute intracerebral pathology. ACT 112: Negative or not required by law. Electronically signed by: Juan Francisco Serrano M.D. 03/16/2021 2:48 PM Hip/Pelvis X-Ray 03/16/21 13:55 XR hip LT 2V w pelvis, XR femur LT 2V routine CLINICAL HISTORY: Fall, pain. COMPARISON STUDY: No previous studies for comparison. TECHNIQUE: AP pelvis and 2 left hip views along with AP and lateral left femur views FINDINGS: Bones: There is no evidence for an acute fracture or dislocation. There is no lytic or blastic lesion. Joints: The joint spaces are maintained. The bones are in anatomic alignment. Soft tissues: There is no focal soft tissue abnormality. There is no radiopaque foreign body. IMPRESSION: No acute osseous pathology. ACT 112: Negative or not required by law. Electronically signed by: Juan Francisco Serrano M.D. 03/16/2021 3:23 PM Tibia/Fibula X-Ray 03/16/21 13:55 XR tibia fibula LT 2V CLINICAL HISTORY: fall, pain. COMPARISON STUDY: No previous studies for comparison. TECHNIQUE: AP and lateral left lower leg views FINDINGS: Bones: There is an oblique fracture present involving the distal fibula. There is also evidence for a vertically oriented fracture through the base of the medial malleolus of the tibia. Left ankle films would be the study of choice for further evaluation. The proximal tibia and fibula are intact. There is no lytic or blastic lesion. Joints: The joint spaces are maintained. The bones are in anatomic alignment. Soft tissues: Soft tissue swelling is present. There is no radiopaque foreign body. IMPRESSION: Fractures of the distal tibia and fibula. Ankle films would be the study of choice for further evaluation. ACT 112: Negative or not required by law. Electronically signed by: Juan Francisco Serrano M.D. 03/16/2021 3:25 PM Chest X-Ray 03/16/21 13:59 XR chest 1V portable CLINICAL HISTORY: fall. Pain. COMPARISON STUDY: 01/17/2017 TECHNIQUE: 1 view of the chest FINDINGS: Single frontal view of the chest demonstrates the heart to be enlarged status post previous cardiothoracic surgery. The lungs are clear of alveolar opacities. There is no evidence for pleural effusion. There is no evidence for vascular congestion. There is no acute osseous pathology. IMPRESSION: No acute cardiopulmonary disease. Cardiomegaly. ACT 112: Negative or not required by law. Electronically signed by: Juan Francisco Serrano M.D. 03/16/2021 3:33 PM Ankle X-Ray 03/16/21 15:30 XR ankle LT min 3V routine CLINICAL HISTORY: Left distal tibia and fibular fracture. COMPARISON STUDY: Left lower leg radiograph 03/16/2021. FINDINGS: There are plantar and posterior calcaneal spurs again noted. Soft tiss ue swelling within the left ankle. There is an oblique mildly displaced fracture within the distal left fibula. This demonstrate up to 5 mm of lateral displacement and 3 mm of posterior displacement. There is also a slightly distracted fracture within the medial malleolus. This demonstrate up to 2 mm of distraction. The ankle mortise appears otherwise intact. There is diffuse soft tissue swelling. Left foot fractures are better appreciated on the same day foot radiograph. IMPRESSION: 1. Mildly displaced bimalleolar left ankle fracture. 2. Left foot fractures are better appreciated on the same day foot radiograph and are consistent with a Lisfranc fracture/dislocation. ACT 112: Negative or not required by law. Electronically signed by: Fred Blanc M.D. 03/16/2021 4:29 PM Abdomen/Pelvis CT 03/16/21 16:01 CT SCAN OF THE CHEST, ABDOMEN, AND PELVIS WITH IV CONTRAST CLINICAL HISTORY: Fall. COMPARISON STUDY: Chest CT dated 01/16/2017. Chest x-ray dated 03/16/2021. TECHNIQUE: Following the IV administration of 95 of Optiray 320, CT scan of the chest, abdomen, and pelvis was performed from the thoracic inlet to the proximal femora. Images are reviewed in the axial, sagittal, and coronal planes. IV contrast was administered without complication. A dose lowering technique was utilized adhering to the principles of ALARA. The Examinations are significantly degraded by motion artifact. CT DOSE: 827.33 mGy.cm FINDINGS: CHEST: Thyroid: Imaged portions of the thyroid gland are normal in size and attenuation. Thoracic aorta: There is atherosclerotic calcification of the thoracic aorta, which is normal in caliber and demonstrates 4-vessel variant arch anatomy. No dissection is seen. Pulmonary vasculature: The pulmonary trunk is normal in caliber. There are no filling defects identified in the central pulmonary vessels to indicate pulmonary embolus. Note that this examination was not protocoled for evaluation of the pulmonary arteries. Heart: The patient is status post midline sternotomy. The heart is enlarged and without pericardial effusion. The coronary arteries are densely calcified. Lungs and pleural spaces: Evaluation of the lung parenchyma is significantly degraded by motion artifact. There is a small right pleural effusion with associated atelectasis. No lobar consolidation is identified. The trachea and central airways appear clear. No pneumothorax is seen. Intralobular septal thickening is suggested. Mediastinum: There are mildly enlarged mediastinal lymph nodes. A right paratracheal node measures 13 mm in short axis. Prevascular nodes measure up to 10 mm in short axis. Lorie: Enlarged hilar nodes measure up to 20 mm in short axis. Axillae: There is no axillary lymphadenopathy. Bony thorax: The skeletal structures are osteopenic. The bony thorax appears intact. No lytic or blastic lesions are identified. Soft tissues: Question a 9 mm enhancing nodule in the right breast, best seen on axial image #134. ABDOMEN AND PELVIS: Liver: The contrast-enhanced liver is normal in size, contour, and attenuation. There is mild intrahepatic biliary ductal dilatation. The hepatic veins and portal veins are patent. Gallbladder: Surgically absent noting clips in the gallbladder fossa. Spleen: Normal in size and attenuation. Pancreas: Unremarkable. Adrenal glands: Bilateral adrenal adenomas measure up to 1.8 cm and are unchanged. Kidneys: The contrast enhanced kidneys demonstrate cortical atrophy and are without hydronephrosis. The kidneys enhance symmetrically. Abdominal vasculature: The abdominal aorta is normal in course and caliber noting advanced atherosclerotic calcification. Bowel: The gastric mucosa appears mildly thickened and hyperemic. There is moderate colonic fecal retention. No bowel obstruction is identified. The appendix is diminutive and grossly unremarkable. Peritoneum/retroperitoneum: There is no intraperitoneal free air or abdominal ascites. There is a small fat-containing umbilical hernia. There is no retroperitoneal hemorrhage. Lymphadenopathy: None. Pelvic viscera: The bladder is normal as visualized. The uterus is surgically absent. No adnexal lesion is seen. Skeletal structures: The skeletal structures are osteopenic. The lumbosacral spine, bony pelvis, and proximal femora appear intact. There is mild lumbosacral spondylosis. Bilateral pars defects are noted at L5. No lytic or blastic lesions are seen. IMPRESSION: 1. Motion compromised examinations. 2. Cardiomegaly with advanced coronary artery calcification. Question mild intr alobular septal thickening. This could be seen with acute versus chronic congestive change and clinical correlation will be required. 3. Small right pleural effusion. 4. There is no lobar consolidation or pneumothorax. 5. There is no evidence of solid organ injury in the abdomen or pelvis. 6. The gastric mucosa appears mildly thickened and hyperemic. Correlate clinically for evidence of gastritis. 7. Question a 9 mm enhancing nodule in the right breast. This is not well assessed by CT and nonemergent follow-up with mammography is recommended. 8. There are enlarged mediastinal and hilar lymph nodes. These are nonspecific and may be reactive. Clinical correlation will be required. This can be followed by CT if clinically warranted. 9 Additional findings as above. ACT 112: Positive. There are findings on this exam that require communication between the performing entity and the patient following Patient Test Result Information Act ([place] Act 112) guidelines. Electronically signed by: Geovani Dumont M.D. 03/16/2021 5:[address] 03/16/21 16:01 CT SCAN OF THE CHEST, ABDOMEN, AND PELVIS WITH IV CONTRAST CLINICAL HISTORY: Fall. COMPARISON STUDY: Chest CT dated 01/16/2017. Chest x-ray dated 03/16/2021. TECHNIQUE: Following the IV administration of 95 of Optiray 320, CT scan of the chest, abdomen, and pelvis was performed from the thoracic inlet to the proximal femora. Images are reviewed in the axial, sagittal, and coronal planes. IV contrast was administered without complication. A dose lowering technique was utilized adhering to the principles of ALARA. The Examinations are significantly degraded by motion artifact. CT DOSE: 827.33 mGy.cm FINDINGS: CHEST: Thyroid: Imaged portions of the thyroid gland are normal in size and attenuation. Thoracic aorta: There is atherosclerotic calcification of the thoracic aorta, which is normal in caliber and demonstrates 4-vessel variant arch anatomy. No dissection is seen. Pulmonary vasculature: The pulmonary trunk is normal in caliber. There are no filling defects identified in the central pulmonary vessels to indicate pulmonary embolus. Note that this examination was not protocoled for evaluation of the pulmonary arteries. Heart: The patient is status post midline sternotomy. The heart is enlarged and without pericardial effusion. The coronary arteries are densely calcified. Lungs and pleural spaces: Evaluation of the lung parenchyma is significantly degraded by motion artifact. There is a small right pleural effusion with associated atelectasis. No lobar consolidation is identified. The trachea and central airways appear clear. No pneumothorax is seen. Intralobular septal thickening is suggested. Mediastinum: There are mildly enlarged mediastinal lymph nodes. A right paratracheal node measures 13 mm in short axis. Prevascular nodes measure up to 10 mm in short axis. Lorie: Enlarged hilar nodes measure up to 20 mm in short axis. Axillae: There is no axillary lymphadenopathy. Bony thorax: The skeletal structures are osteopenic. The bony thorax appears intact. No lytic or blastic lesions are identified. Soft tissues: Question a 9 mm enhancing nodule in the right breast, best seen on axial image #134. ABDOMEN AND PELVIS: Liver: The contrast-enhanced liver is normal in size, contour, and attenuation. There is mild intrahepatic biliary ductal dilatation. The hepatic veins and p ortal veins are patent. Gallbladder: Surgically absent noting clips in the gallbladder fossa. Spleen: Normal in size and attenuation. Pancreas: Unremarkable. Adrenal glands: Bilateral adrenal adenomas measure up to 1.8 cm and are unchanged. Kidneys: The contrast enhanced kidneys demonstrate cortical atrophy and are without hydronephrosis. The kidneys enhance symmetrically. Abdominal vasculature: The abdominal aorta is normal in course and caliber noting advanced atherosclerotic calcification. Bowel: The gastric mucosa appears mildly thickened and hyperemic. There is moderate colonic fecal retention. No bowel obstruction is identified. The appendix is diminutive and grossly unremarkable. Peritoneum/retroperitoneum: There is no intraperitoneal free air or abdominal ascites. There is a small fat-containing umbilical hernia. There is no retroperitoneal hemorrhage. Lymphadenopathy: None. Pelvic viscera: The bladder is normal as visualized. The uterus is surgically absent. No adnexal lesion is seen. Skeletal structures: The skeletal structures are osteopenic. The lumbosacral spine, bony pelvis, and proximal femora appear intact. There is mild lumbosacral spondylosis. Bilateral pars defects are noted at L5. No lytic or blastic lesions are seen. IMPRESSION: 1. Motion compromised examinations. 2. Cardiomegaly with advanced coronary artery calcification. Question mild intralobular septal thickening. This could be seen with acute versus chronic congestive change and clinical correlation will be required. 3. Small right pleural effusion. 4. There is no lobar consolidation or pneumothorax. 5. There is no evidence of solid organ injury in the abdomen or pelvis. 6. The gastric mucosa appears mildly thickened and hyperemic. Correlate clinically for evidence of gastritis. 7. Question a 9 mm enhancing nodule in the right breast. This is not well assessed by CT and nonemergent follow-up with mammography is recommended. 8. There are enlarged mediastinal and hilar lymph nodes. These are nonspecific and may be reactive. Clinical correlation will be required. This can be followed by CT if clinically warranted. 9 Additional findings as above. ACT 112: Positive. There are findings on this exam that require communication between the performing entity and the patient following Patient Test Result Information Act ([place] Act 112) guidelines. Electronically signed by: Geovani Dumont M.D. 03/16/2021 5:04 PM Discharge Plan Visit Data Chief Complaint: Fall Stated Complaint: ANKLE PAIN ED Provider: Geovani Florez ED Midlevel Provider: Argentina Murillo Discharge Problem: Anemia, Fall, Bimalleolar fracture of left ankle, Weakness, Lisfranc fracture Patient Disposition: Admitted As Inpatient Discharge Instructions Interventions: ED Discharge Assessment Last Done: 03/16/21 20:09
[2021-03-16 14:46] LABS: Partial Thromboplastin Ratio 0.9; Partial Thromboplastin Time 24.6 Seconds (21.0-31.0); Prothrombin Time 10.3 Seconds (9.0-12.0)
--- NOTE | 2021-03-16 14:49 | CT Scan Report ---
CT head/brain wo con CLINICAL HISTORY: fall, on plavix . Evaluate for bleed COMPARISON STUDY: 01/16/2017 CT DOSE: TECHNIQUE: Standard CT of the Brain was performed without IV contrast. A dose lowering technique was utilized adhering to the principles of ALARA. FINDINGS: Extraaxial space: There is no evidence for subdural hematoma. There are no extra-axial fluid collecti ons. Ventricles and cisterns: The ventricles are normal in size and configuration. There is no evidence f or midline shift or mass effect. Parenchyma: There is no subarachnoid or intraparenchymal hemorrhage. There is no evidence for an acu te infarct or cerebral edema. There is homogeneous attenuation of the brain parenchyma. There are no gross mass lesions. Osseous structures: There is no evidence for an acute fracture. The visualized paranasal sinuses are clear. The mastoid air cells are clear bilaterally. Soft tissues: There is no evidence for focal soft tissue swelling. IMPRESSION: No acute intracerebral pathology. ACT 112: Negative or not required by law. Electronically signed by: Juan Francisco Serrano M.D. 03/16/2021 2:48 PM
[2021-03-16 14:50] LABS: ALC (manual) 1.84 K/uL (1.2-3.4); ANC (manual) 13.18 K/uL (1.4-6.5); Eosinophils # (manual) 0.47 K/uL (0-0.5); Eosinophils % (manual) 2.7 %; Hypochromasia Present; Lymphocytes # (manual) 1.84 K/uL (1.2-3.4); Lymphocytes % (manual) 10.6 %; Monocytes # (manual) 1.84 K/uL (0.11-0.59); Monocytes % (manual) 10.6 %; Neutrophils # (manual) 13.18 K/uL (1.4-6.5); Neutrophils % (manual) 76.1 %; Polychromasia 1+
--- NOTE | 2021-03-16 14:55 | CT Scan Report ---
CT SCAN OF THE CERVICAL SPINE CLINICAL HISTORY: Fall. COMPARISON STUDY: No priors. TECHNIQUE: CT scan of the cervical spine is performed from the skull base to the upper thoracic spine . Images are reviewed in the axial, sagittal, and coronal planes. IV contrast was not administered fo r this examination. A dose lowering technique was utilized adhering to the principles of ALARA. CT DOSE: 1136.67 mGy.cm FINDINGS: Skeletal structures: The skeletal structures are osteopenic. There is no evidence of fracture or subl uxation involving the cervical spine. Vertebral body height and alignment are maintained. There is st raightening of the cervical lordosis. Small anterior osteophytes are seen throughout. The odontoid pr ocess and lateral masses are intact. The atlantoaxial articulation is preserved noting mild productiv e degenerative change. The spinous processes appear intact. Intervertebral discs: The disc spaces are maintained. Central canal: Posterior disc osteophyte complexes at C3-C4, C4-C5, and C5-C6 may contribute to multi level acquired compromise of the central canal. Soft tissues: The prevertebral and paraspinous soft tissues are within normal limits. There is athero sclerotic calcification of the carotid bulbs. Calvarium: The visualized calvarium at the skull base appears intact. Brain parenchyma: Partially visualized brain parenchyma at the skull base is within normal limits. Sinuses and mastoids: The visualized paranasal sinuses are clear. The mastoid air cells are well pneu matized. Lung apices: Clear as visualized. IMPRESSION: 1. There is no evidence of fracture or subluxation involving the cervical spine. 2. Osteopenia and spondylotic change as above. ACT 112: Negative or not required by law. Electronically signed by: Geovani Dumont M.D. 03/16/2021 2:53 PM
--- NOTE | 2021-03-16 15:24 | XRay Report ---
XR hip LT 2V w pelvis, XR femur LT 2V routine CLINICAL HISTORY: Fall, pain. COMPARISON STUDY: No previous studies for comparison. TECHNIQUE: AP pelvis and 2 left hip views along with AP and lateral left femur views FINDINGS: Bones: There is no evidence for an acute fracture or dislocation. There is no lytic or blastic lesion . Joints: The joint spaces are maintained. The bones are in anatomic alignment. Soft tissues: There is no focal soft tissue abnormality. There is no radiopaque foreign body. IMPRESSION: No acute osseous pathology. ACT 112: Negative or not required by law. Electronically signed by: Juan Francisco Serrano M.D. 03/16/2021 3:23 PM
--- NOTE | 2021-03-16 15:27 | XRay Report ---
XR tibia fibula LT 2V CLINICAL HISTORY: fall, pain. COMPARISON STUDY: No previous studies for comparison. TECHNIQUE: AP and lateral left lower leg views FINDINGS: Bones: There is an oblique fracture present involving the distal fibula. There is also evidence for a vertically oriented fracture through the base of the medial malleolus of the tibia. Left ankle films would be the study of choice for further evaluation. The proximal tibia and fibula are intact. There is no lytic or blastic lesion. Joints: The joint spaces are maintained. The bones are in anatomic alignment. Soft tissues: Soft tissue swelling is present. There is no radiopaque foreign body. IMPRESSION: Fractures of the distal tibia and fibula. Ankle films would be the study of choice for fu rther evaluation. ACT 112: Negative or not required by law. Electronically signed by: Juan Francisco Serrano M.D. 03/16/2021 3:25 PM
[2021-03-16 15:33] LABS: Alanine Aminotransferase 22 U/L (7-52); Albumin Globulin Ratio 1.3 (0.9-2); Albumin Level 3.6 gm/dl (3.4-5.0); Alkaline Phosphatase 72 U/L (34-104); Anion Gap 5 (3-11); Aspartate Aminotransferase 21 U/L (13-39); BUN Creatinine Ratio 17.2 (10-20); Bilirubin,Total 0.5 mg/dl (0.2-1.0); Blood Urea Nitrogen 16 mg/dl (6-23); Calcium 9.1 mg/dl (8.5-10.1); Carbon Dioxide 29 mmol/L (21-32); Chloride 103 mmol/L (98-107); Creatine Kinase 53 U/L (26-192); Creatinine Clr Calc Pharmacy 63.1 ml/min; Est GFR (African American) 76.3 ml/min; Est GFR (Non-African American) 65.9 ml/min; Globulin 2.8 gm/dl (2.5-4.0); Potassium 3.9 mmol/L (3.5-5.1); Sodium 137 mmol/L (136-145); Total Protein 6.4 gm/dl (6.0-8.3); Troponin I < 0.03 ng/ml (0-0.04)
--- NOTE | 2021-03-16 15:33 | XRay Report ---
XR foot LT min 3V routine CLINICAL HISTORY: fall, ecchymosis/edema. COMPARISON STUDY: No previous studies for comparison. TECHNIQUE: 3 left foot views FINDINGS: Bones: As seen on tibia and fibula films, oblique fractures of distal tibia and fibula are present. A gain, left ankle films are recommended for further evaluation. There is an oblique fracture through the base of the first metatarsal, laterally. It is minimally dis placed. It extends into the first tarsometatarsal joint and there is irregularity of the articulation between the bases of the first and second metatarsals. The presence of the Lisfranc injury cannot be excluded. If indicated clinically, follow-up CT would be the study of choice for further evaluation. No other definite fractures are seen of the bones the foot. There is no lytic or blastic lesion. Joints: The remaining joint spaces are maintained. The bones are in anatomic alignment. Soft tissues: There is soft tissue swelling of the foot. There is no radiopaque foreign body. IMPRESSION: 1. There are again fractures of the distal tibia and fibula. Ankle radiographs are again recommended for further evaluation. 2. There is an oblique fracture present at the base of the first metatarsal, laterally extending into the first tarsometatarsal joint. 3. There is irregularity of the articulation between the bases of the first and second metatarsals as well. The presence of a Lisfranc injury cannot be excluded. If indicated clinically, follow-up CT wo uld be the study of choice for further evaluation. 4. Soft tissue swelling. ACT 112: Negative or not required by law. Electronically signed by: Juan Francisco Serrano M.D. 03/16/2021 3:32 PM
--- NOTE | 2021-03-16 15:34 | XRay Report ---
XR chest 1V portable CLINICAL HISTORY: fall. Pain. COMPARISON STUDY: 01/17/2017 TECHNIQUE: 1 view of the chest FINDINGS: Single frontal view of the chest demonstrates the heart to be enlarged status post previous cardiotho racic surgery. The lungs are clear of alveolar opacities. There is no evidence for pleural effusion. There is no evidence for vascular congestion. There is no acute osseous pathology. IMPRESSION: No acute cardiopulmonary disease. Cardiomegaly. ACT 112: Negative or not required by law. Electronically signed by: Juan Francisco Serrano M.D. 03/16/2021 3:33 PM
[2021-03-16] MEDS ORDERED: HYDROmorphone INJ 1 MG/ML SYRINGE IV STA (15:44)
[2021-03-16] MEDS ORDERED: INSULIN ASPART PER UNIT SC STA (16:21)
--- NOTE | 2021-03-16 16:30 | XRay Report ---
XR ankle LT min 3V routine CLINICAL HISTORY: Left distal tibia and fibular fracture. COMPARISON STUDY: Left lower leg radiograph 03/16/2021. FINDINGS: There are plantar and posterior calcaneal spurs again noted. Soft tissue swelling within th e left ankle. There is an oblique mildly displaced fracture within the distal left fibula. This demon strate up to 5 mm of lateral displacement and 3 mm of posterior displacement. There is also a slightl y distracted fracture within the medial malleolus. This demonstrate up to 2 mm of distraction. The an kle mortise appears otherwise intact. There is diffuse soft tissue swelling. Left foot fractures are better appreciated on the same day foot radiograph. IMPRESSION: 1. Mildly displaced bimalleolar left ankle fracture. 2. Left foot fractures are better appreciated on the same day foot radiograph and are consistent with a Lisfranc fracture/dislocation. ACT 112: Negative or not required by law. Electronically signed by: Fred Blanc M.D. 03/16/2021 4:29 PM
[2021-03-16] MEDS ORDERED: OPTIRAY 320 100ml IV ONE (16:42)
--- NOTE | 2021-03-16 17:05 | CT Scan Report ---
CT SCAN OF THE CHEST, ABDOMEN, AND PELVIS WITH IV CONTRAST CLINICAL HISTORY: Fall. COMPARISON STUDY: Chest CT dated 01/16/2017. Chest x-ray dated 03/16/2021. TECHNIQUE: Following the IV administration of 95 of Optiray 320, CT scan of the chest, abdomen, and p leann was performed from the thoracic inlet to the proximal femora. Images are reviewed in the axial, sagittal, and coronal planes. IV contrast was administered without complication. A dose lowering te [place]nique was utilized adhering to the principles of ALARA. The Examinations are significantly degraded by motion artifact. CT DOSE: 827.33 mGy.cm FINDINGS: CHEST: Thyroid: Imaged portions of the thyroid gland are normal in size and attenuation. Thoracic aorta: There is atherosclerotic calcification of the thoracic aorta, which is normal in maria fernanda daniel and demonstrates 4-vessel variant arch anatomy. No dissection is seen. Pulmonary vasculature: The pulmonary trunk is normal in caliber. There are no filling defects identif ied in the central pulmonary vessels to indicate pulmonary embolus. Note that this examination was no t protocoled for evaluation of the pulmonary arteries. Heart: The patient is status post midline sternotomy. The heart is enlarged and without pericardial e ffusion. The coronary arteries are densely calcified. Lungs and pleural spaces: Evaluation of the lung parenchyma is significantly degraded by motion artif act. There is a small right pleural effusion with associated atelectasis. No lobar consolidation is i dentified. The trachea and central airways appear clear. No pneumothorax is seen. Intralobular septal thickening is suggested. Mediastinum: There are mildly enlarged mediastinal lymph nodes. A right paratracheal node measures 13 mm in short axis. Prevascular nodes measure up to 10 mm in short axis. Lorie: Enlarged hilar nodes measure up to 20 mm in short axis. Axillae: There is no axillary lymphadenopathy. Bony thorax: The skeletal structures are osteopenic. The bony thorax appears intact. No lytic or rosa tic lesions are identified. Soft tissues: Question a 9 mm enhancing nodule in the right breast, best seen on axial image #134. ABDOMEN AND PELVIS: Liver: The contrast-enhanced liver is normal in size, contour, and attenuation. There is mild intrahe patic biliary ductal dilatation. The hepatic veins and portal veins are patent. Gallbladder: Surgically absent noting clips in the gallbladder fossa. Spleen: Normal in size and attenuation. Pancreas: Unremarkable. Adrenal glands: Bilateral adrenal adenomas measure up to 1.8 cm and are unchanged. Kidneys: The contrast enhanced kidneys demonstrate cortical atrophy and are without hydronephrosis. T he kidneys enhance symmetrically. Abdominal vasculature: The abdominal aorta is normal in course and caliber noting advanced atheroscle rotic calcification. Bowel: The gastric mucosa appears mildly thickened and hyperemic. There is moderate colonic fecal ret ention. No bowel obstruction is identified. The appendix is diminutive and grossly unremarkable. Peritoneum/retroperitoneum: There is no intraperitoneal free air or abdominal ascites. There is a sma ll fat-containing umbilical hernia. There is no retroperitoneal hemorrhage. Lymphadenopathy: None. Pelvic viscera: The bladder is normal as visualized. The uterus is surgically absent. No adnexal lesi on is seen. Skeletal structures: The skeletal structures are osteopenic. The lumbosacral spine, bony pelvis, and proximal femora appear intact. There is mild lumbosacral spondylosis. Bilateral pars defects are note d at L5. No lytic or blastic lesions are seen. IMPRESSION: 1. Motion compromised examinations. 2. Cardiomegaly with advanced coronary artery calcification. Question mild intralobular septal thicke chi. This could be seen with acute versus chronic congestive change and clinical correlation will be required. 3. Small right pleural effusion. 4. There is no lobar consolidation or pneumothorax. 5. There is no evidence of solid organ injury in the abdomen or pelvis. 6. The gastric mucosa appears mildly thickened and hyperemic. Correlate clinically for evidence of ga stritis. 7. Question a 9 mm enhancing nodule in the right breast. This is not well assessed by CT and nonemerg ent follow-up with mammography is recommended. 8. There are enlarged mediastinal and hilar lymph nodes. These are nonspecific and may be reactive. C linical correlation will be required. This can be followed by CT if clinically warranted. 9 Additional findings as above. ACT 112: Positive. There are findings on this exam that require communication between the performing entity and the patient following Patient Test Result Information Act ([place] Act 112) guidelines. Electronically signed by: Geovani Dumont M.D. 03/16/2021 5:04 PM
[2021-03-16] MEDS ORDERED: PHARMACY GLYCEMIC MGMT CONSULT PRN (19:12)
[2021-03-16] MEDS ORDERED: GLUCAGON FOR INJ 1 MG VIAL SQ PRN (19:12)
[2021-03-16] MEDS ORDERED: CARBOHYDRATES FOR HYPOGLYCEMIA PO PRN (19:12)
[2021-03-16] MEDS ORDERED: DEXTROSE 50% 50 ML SYRINGE IV PRN (19:12)
[2021-03-16] MEDS ORDERED: GLUCOSE 10 TABS/TUBE PO PRN (19:12)
[2021-03-16] MEDS ORDERED: GLUCOSE 40% GEL 15 GM TUBE PO PRN (19:12)
--- NOTE | 2021-03-16 19:28 | History & Physical Report ---
Date of Service March 16, 2021 Assessment & Plan (1) Fall: (2) Bimalleolar fracture of left ankle: Plan: This is a 60-year-old female with PMH of type 2 diabetes with diabetic neuropathy, chronic diastolic heart failure, hypertension, CAD (with h/o CABG 10 years ago), tobacco use, history of mood disorder with psychosis and other medical problems listed below who presents after fall at home earlier today and was found to have left bimalleolar ankle fracture . L Ankle XR with mildly displaced bimalleolar left ankle fracture. Left foot fractures are better appreciated on the same day foot radiograph and are consistent with a Lisfranc fracture/dislocation ED discussed with Dr. Snow. LLE immobilized, neurovascular checks on LLE Q2H, pain control CXR without acute CP abnormality, ECG with NSR, LBBB, no acute ST changes NPO @ midnight (3) Diabetes mellitus, type 2: Plan: Initial BSG elevated at 343, received 7u SQ insulin in ED Basal/bolus insulin per protocol, is NPO due to lethargic state, will be NPO @ [place] Glycemic consult placed BSG AC HS (4) Anemia: Plan: Hgb 7.9 (recent baseline hgb unknown) No evidence of bleeding on imaging, rectal exam normal, hemodynamically stable No need to transfuse now, per Dr. Snow. Repeat CBC in AM (5) Leukocytosis: Plan: WBC of 17 - no clear source of infection on extensive imaging of chest, lungs, abd and pelvis. Covid screen negative, urine pending. Blood cultures ordered. CK normal Likely reactive component following fall Monitor with daily CBC (6) Coronary artery disease: Plan: H/o CABG 10 years ago No chest pain or acute ECG changes Continue aspirin, statin, Toprol Hold plavix in AM in case of procedure (7) Hypertension: Plan: Normotensive. Continue lisinopril, Toprol (8) Chronic congestive heart failure with left ventricular diastolic dysfunction: Plan: Appears euvolemic on exam. CXR with no acute cardiopulmonary disease Received 1L NSS in ED. Will hold on additional fluids for now Continue Toprol, hold lasix until surgical plans clear/volume status evaluated in AM (9) Psychotic disorder: Plan: Required admission to [facility] previously, ongoing issues with hallucinations per daughter Continue duloxetine, quetiapine HS (10) Anxiety: Plan: Continue duloxetine (11) Tobacco use disorder: Plan: Smoking cessation education ordered Offer nicotine patch once more alert DVT Ppx: SCD on RLE Code status: FULL PCP: MARY Simon Dispo: Admitted to [facility] tele Patient seen in collaboration with Dr. Kiser. Please see addendum. (12) Toxic encephalopathy: History of Present Illness Chief Complaint: Fall, left ankle pain Primary Care Provider: Christiano Simon PA-C This is a 60-year-old female with PMH of type 2 diabetes with diabetic neuropathy, chronic diastolic heart failure, hypertension, CAD (with h/o CABG 10 years ago), tobacco use, history of mood disorder with psychosis and other medical problems listed below who presents after fall at home earlier today. Patient has been living alone but roommate just moved in. Was walking from kitchen to the living room when her "legs collapsed from under her" and she fell onto her left side. Had significant ankle pain from that point forward. Was able to crawl over and rest on the sofa until daughter called EMS and patient brought to ED for further evaluation. History primarily obtained from chart and daughter at bedside due to patient's lethargic state after narcotic medication. Does have history of right bimalleolar ankle fracture after a fall requiring admission and operative repair by Dr. Srinath lomeli in 2017. Was then admitted to the behavioral unit for involuntary admission where she underwent multiple medication adjustments. Continues to struggle with intermittent hallucinations, per daughter. Has recently been fixated on the idea that she has scabies and bugs crawling on her. Was evaluated by dermatology recently and she does not have scabies. Unable to obtain ROS due to patient's lethargic state. Follows with Christiano Simon PA-C at [facility] in [place]. Allergies Allergy/AdvReac Type Severity Reaction Status Date / Time latex Allergy Mild Rash Verified 03/16/21 17:36 aspirin Allergy Unknown UNKNOWN Verified 03/16/21 17:36 oxycodone AdvReac Intermediate HALLUCINATI Verified 03/16/21 17:36 ONS Home Medications Medication Instructions Recorded Confirmed Type aspirin 81 mg tablet 81 mg PO DAILY 03/16/21 03/16/21 History atorvastatin 80 mg tablet 80 mg PO HS 03/16/21 03/16/21 History clopidogrel 75 mg tablet 75 mg PO DAILY 03/16/21 03/16/21 History donepezil 5 mg tablet 5 mg PO HS 03/16/21 03/16/21 History duloxetine 30 mg capsule,delayed 30 mg PO QAM 03/16/21 03/16/21 History release duloxetine 60 mg capsule,delayed 60 mg PO QAM 03/16/21 03/16/21 History release furosemide 20 mg tablet 60 mg PO DAILY 03/16/21 03/16/21 History gabapentin 300 mg capsule See Rx Instructions .ROUTE .COMPLEX 03/16/21 03/16/21 History insulin glargine 100 unit/mL (3 46 unit SUBCUT QAM 03/16/21 03/16/21 History mL) subcutaneous pen (Basaglar KwikPen U-100 Insulin) lisinopril 10 mg tablet 10 mg PO DAILY 03/16/21 03/16/21 History metoprolol succinate 50 mg 50 mg PO DAILY 03/16/21 03/16/21 History tablet,extended release 24 hr omeprazole 20 mg capsule,delayed 20 mg PO DAILY 03/16/21 03/16/21 History release quetiapine 200 mg tablet 200 mg PO HS 03/16/21 03/16/21 History topiramate 50 mg tablet 50 mg PO BID 03/16/21 03/16/21 History tramadol 50 mg tablet 50 mg PO Q6H PRN 03/16/21 03/16/21 History Past Med/Surg History Medical History Anxiety Carpal tunnel syndrome, left Chronic congestive heart failure with left ventricular diastolic dysfunction Coronary artery disease Diabetes mellitus, type 2 Psychotic disorder Tobacco use disorder Ulnar neuropathy at elbow of left upper extremity Surgical History Status post cholecystectomy Status post coronary artery bypass grafting Status post hysterectomy Status post ORIF of fracture of ankle R, 2017 Family History Other Diabetes Heart disease Social History Smoking Status: Current every day smoker Tobacco Type: Cigarettes packs per day: 1; Years Smoked: 35; Second Hand Exposure: Yes; Do You Dip or Chew Tobacco: No; Tobacco Cessation Education Requested by Patient: No Hx Alcohol Use: No Hx Substance Use: No Preferred Language: Sinhala Communication Ability: Effective Medical Investigator Required: No Beliefs That Will Affect Care: [employer] Current Living Situation: Alone Current Living Situation Comment: roommate just moved in recently Other Information That Helps Us Care for You: No Feels Safe at Home: Yes Safety Concerns: Feels Safe At This Time Assistive Devices: Oxygen - Continuous Review of Systems Review of Systems: Unobtainable due to reduced consciousness Physical Exam Physical Exam: General Appearance: WD/WN, vitals as above, NAD, lying in bed, lethargic but arousable Head: normocephalic, atraumatic Eyes: normal inspection, PERRL, conjunctivae normal, anicteric sclerae ENT: external ear and nose normal, oropharynx normal Neck: normal visual inspection, trachea midline, no thyromegaly Respiratory: normal respiratory effort, lungs clear to auscultation, no wheeze, rales, rhonchi. No accessory muscle use Cardiovascular: regular rate, rhythm, no murmur, normal peripheral pulses, no BLE edema. Vessels: no JVD Chest: normal inspection of chest Abdomen/GI: normal bowel sounds, soft, nontender, no hepatosplenomegaly Extremities/Musculoskeletal: LLE in immobilizer, NVI. No cyanosis or clubbing, extremities motor strength 5/5 Neurologic: PERRL, EOMI, able to follow basic commands on exam but limited due to lethargy. Moves all extremities Skin: no rashes, normal color, warm/dry Results & Data Results & Data ([facility]) Vital Signs (Past 12 Hours) Vital Signs Temp Pulse Pulse Resp BP BP Pulse Ox 03/16/21 18:30 81 113/55 L 96 03/16/21 18:00 82 20 123/68 96 03/16/21 17:30 82 14 106/53 L 100 03/16/21 17:03 84 9 L 122/60 100 03/16/21 16:01 82 11 L 152/80 H 100 03/16/21 16:00 83 21 94 03/16/21 15:42 84 14 95 03/16/21 13:23 36.9 C 80 20 131/61 90 03/16/21 13:18 36.9 C 80 20 131/61 90 Laboratory Results Short CBC 03/16/21 Range/Units 14:15 WBC 17.32 H (4.8-10.8) K/uL Hgb 7.9 L (12.0-16.0) g/dL Hct 27.0 L (37-47) % Plt Count 288 (130-400) K/uL BMP 03/16/21 14:15 Sodium 137 Potassium 3.9 Chloride 103 Carbon Dioxide 29 BUN 16 Creatinine 0.93 Glucose 343 H* Calcium 9.1 Cardiac Enzymes 03/16/21 Range/Units 14:15 Total Creatine Kinase 53 (26-192) U/L Troponin I < 0.03 (0-0.04) ng/ml Liver Function 03/16/21 Range/Units 14:15 Total Bilirubin 0.5 (0.2-1.0) mg/dl AST 21 (13-39) U/L ALT 22 (7-52) U/L Alkaline Phosphatase 72 (34-104) U/L Albumin 3.6 (3.4-5.0) gm/dl Diagnostic Findings Cervical Spine CT 03/16/21 13:55 CT SCAN OF THE CERVICAL SPINE CLINICAL HISTORY: Fall. COMPARISON STUDY: No priors. TECHNIQUE: CT scan of the cervical spine is performed from the skull base to the upper thoracic spine. Images are reviewed in the axial, sagittal, and coronal planes. IV contrast was not administered for this examination. A dose lowering technique was utilized adhering to the principles of ALARA. CT DOSE: 1136.67 mGy.cm FINDINGS: Skeletal structures: The skeletal structures are osteopenic. There is no evidence of fracture or subluxation involving the cervical spine. Vertebral body height and alignment are maintained. There is straightening of the cervical lordosis. Small anterior osteophytes are seen throughout. The odontoid process and lateral masses are intact. The atlantoaxial articulation is preserved noting mild productive degenerative change. The spinous processes appear intact. Intervertebral discs: The disc spaces are maintained. Central canal: Posterior disc osteophyte complexes at C3-C4, C4-C5, and C5-C6 may contribute to multilevel acquired compromise of the central canal. Soft tissues: The prevertebral and paraspinous soft tissues are within normal limits. There is atherosclerotic calcification of the carotid bulbs. Calvarium: The visualized calvarium at the skull base appears intact. Brain parenchyma: Partially visualized brain parenchyma at the skull base is within normal limits. Sinuses and mastoids: The visualized paranasal sinuses are clear. The mastoid air cells are well pneumatized. Lung apices: Clear as visualized. IMPRESSION: 1. There is no evidence of fracture or subluxation involving the cervical spine. 2. Osteopenia and spondylotic change as above. ACT 112: Negative or not required by law. Electronically signed by: Geovani Dumont M.D. 03/16/2021 2:53 PM Femur X-Ray 03/16/21 13:55 XR hip LT 2V w pelvis, XR femur LT 2V routine CLINICAL HISTORY: Fall, pain. COMPARISON STUDY: No previous studies for comparison. TECHNIQUE: AP pelvis and 2 left hip views along with AP and lateral left femur views FINDINGS: Bones: There is no evidence for an acute fracture or dislocation. There is no lytic or blastic lesion. Joints: The joint spaces are maintained. The bones are in anatomic alignment. Soft tissues: There is no focal soft tissue abnormality. There is no radiopaque foreign body. IMPRESSION: No acute osseous pathology. ACT 112: Negative or not required by law. Electronically signed by: Juan Francisco Serrano M.D. 03/16/2021 3:23 PM Foot X-Ray 03/16/21 13:55 XR foot LT min 3V routine CLINICAL HISTORY: fall, ecchymosis/edema. COMPARISON STUDY: No previous studies for comparison. TECHNIQUE: 3 left foot views FINDINGS: Bones: As seen on tibia and fibula films, oblique fractures of distal tibia and fibula are present. Again, left ankle films are recommended for further evaluation. There is an oblique fracture through the base of the first metatarsal, laterally. It is minimally displaced. It extends into the first tarsometatarsal joint and there is irregularity of the articulation between the bases of the first and second metatarsals. The presence of the Lisfranc injury cannot be excluded. If indicated clinically, follow-up CT would be the study of choice for further evaluation. No other definite fractures are seen of the bones the foot. There is no lytic or blastic lesion. Joints: The remaining joint spaces are maintained. The bones are in anatomic alignment. Soft tissues: There is soft tissue swelling of the foot. There is no radiopaque foreign body. IMPRESSION: 1. There are again fractures of the distal tibia and fibula. Ankle radiographs are again recommended for further evaluation. 2. There is an oblique fracture present at the base of the first metatarsal, laterally extending into the first tarsometatarsal joint. 3. There is irregularity of the articulation between the bases of the first and second metatarsals as well. The presence of a Lisfranc injury cannot be excluded. If indicated clinically, follow-up CT would be the study of choice for further evaluation. 4. Soft tissue swelling. ACT 112: Negative or not required by law. Electronically signed by: Juan Francisco Serrano M.D. 03/16/2021 3:[address] 03/16/21 13:55 CT head/brain wo con CLINICAL HISTORY: fall, on plavix . Evaluate for bleed COMPARISON STUDY: 01/16/2017 CT DOSE: TECHNIQUE: Standard CT of the Brain was performed without IV contrast. A dose lowering technique was utilized adhering to the principles of ALARA. FINDINGS: Extraaxial space: There is no evidence for subdural hematoma. There are no extra-axial fluid collections. Ventricles and cisterns: The ventricles are normal in size and configuration. There is no evidence for midline shift or mass effect. Parenchyma: There is no subarachnoid or intraparenchymal hemorrhage. There is no evidence for an acute infarct or cerebral edema. There is homogeneous attenuation of the brain parenchyma. There are no gross mass lesions. Osseous structures: There is no evidence for an acute fracture. The visualized paranasal sinuses are clear. The mastoid air cells are clear bilaterally. Soft tissues: There is no evidence for focal soft tissue swelling. IMPRESSION: No acute intracerebral pathology. ACT 112: Negative or not required by law. Electronically signed by: Juan Francisco Serrano M.D. 03/16/2021 2:48 PM Hip/Pelvis X-Ray 03/16/21 13:55 XR hip LT 2V w pelvis, XR femur LT 2V routine CLINICAL HISTORY: Fall, pain. COMPARISON STUDY: No previous studies for comparison. TECHNIQUE: AP pelvis and 2 left hip views along with AP and lateral left femur views FINDINGS: Bones: There is no evidence for an acute fracture or dislocation. There is no lytic or blastic lesion. Joints: The joint spaces are maintained. The bones are in anatomic alignment. Soft tissues: There is no focal soft tissue abnormality. There is no radiopaque foreign body. IMPRESSION: No acute osseous pathology. ACT 112: Negative or not required by law. Electronically signed by: Juan Francisco Serrano M.D. 03/16/2021 3:23 PM Tibia/Fibula X-Ray 03/16/21 13:55 XR tibia fibula LT 2V CLINICAL HISTORY: fall, pain. COMPARISON STUDY: No previous studies for comparison. TECHNIQUE: AP and lateral left lower leg views FINDINGS: Bones: There is an oblique fracture present involving the distal fibula. There is also evidence for a vertically oriented fracture through the base of the medial malleolus of the tibia. Left ankle films would be the study of choice for further evaluation. The proximal tibia and fibula are intact. There is no lytic or blastic lesion. Joints: The joint spaces are maintained. The bones are in anatomic alignment. Soft tissues: Soft tissue swelling is present. There is no radiopaque foreign body. IMPRESSION: Fractures of the distal tibia and fibula. Ankle films would be the study of choice for further evaluation. ACT 112: Negative or not required by law. Electronically signed by: Juan Francisco Serrano M.D. 03/16/2021 3:25 PM Chest X-Ray 03/16/21 13:59 XR chest 1V portable CLINICAL HISTORY: fall. Pain. COMPARISON STUDY: 01/17/2017 TECHNIQUE: 1 view of the chest FINDINGS: Single frontal view of the chest demonstrates the heart to be enlarged status post previous cardiothoracic surgery. The lungs are clear of alveolar opacities. There is no evidence for pleural effusion. There is no evidence for vascular congestion. There is no acute osseous pathology. IMPRESSION: No acute cardiopulmonary disease. Cardiomegaly. ACT 112: Negative or not required by law. Electronically signed by: Juan Francisco Serrano M.D. 03/16/2021 3:33 PM Ankle X-Ray 03/16/21 15:30 XR ankle LT min 3V routine CLINICAL HISTORY: Left distal tibia and fibular fracture. COMPARISON STUDY: Left lower leg radiograph 03/16/2021. FINDINGS: There are plantar and posterior calcaneal spurs again noted. Soft tissue swelling within the left ankle. There is an oblique mildly displaced fracture within the distal left fibula. This demonstrate up to 5 mm of lateral displacement and 3 mm of posterior displacement. There is also a slightly distracted fracture within the medial malleolus. This demonstrate up to 2 mm of distraction. The ankle mortise appears otherwise intact. There is diffuse soft tissue swelling. Left foot fractures are better appreciated on the same day foot radiograph. IMPRESSION: 1. Mildly displaced bimalleolar left ankle fracture. 2. Left foot fractures are better appreciated on the same day foot radiograph and are consistent with a Lisfranc fracture/dislocation. ACT 112: Negative or not required by law. Electronically signed by: Fred Blanc M.D. 03/16/2021 4:29 PM Abdomen/Pelvis CT 03/16/21 16:01 CT SCAN OF THE CHEST, ABDOMEN, AND PELVIS WITH IV CONTRAST CLINICAL HISTORY: Fall. COMPARISON STUDY: Chest CT dated 01/16/2017. Chest x-ray dated 03/16/2021. TECHNIQUE: Following the IV administration of 95 of Optiray 320, CT scan of the chest, abdomen, and pelvis was performed from the thoracic inlet to the proximal femora. Images are reviewed in the axial, sagittal, and coronal planes. IV contrast was administered without complication. A dose lowering technique was utilized adhering to the principles of ALARA. The Examinations are significantly degraded by motion artifact. CT DOSE: 827.33 mGy.cm FINDINGS: CHEST: Thyroid: Imaged portions of the thyroid gland are normal in size and attenuation. Thoracic aorta: There is atherosclerotic calcification of the thoracic aorta, which is normal in caliber and demonstrates 4-vessel variant arch anatomy. No dissection is seen. Pulmonary vasculature: The pulmonary trunk is normal in caliber. There are no filling defects identified in the central pulmonary vessels to indicate pulmonary embolus. Note that this examination was not protocoled for evaluation of the pulmonary arteries. Heart: The patient is status post midline sternotomy. The heart is enlarged and without pericardial effusion. The coronary arteries are densely calcified. Lungs and pleural spaces: Evaluation of the lung parenchyma is significantly degraded by motion artifact. There is a small right pleural effusion with associated atelectasis. No lobar consolidation is identified. The trachea and central airways appear clear. No pneumothorax is seen. Intralobular septal thickening is suggested. Mediastinum: There are mildly enlarged mediastinal lymph nodes. A right paratracheal node measures 13 mm in short axis. Prevascular nodes measure up to 10 mm in short axis. Lorie: Enlarged hilar nodes measure up to 20 mm in short axis. Axillae: There is no axillary lymphadenopathy. Bony thorax: The skeletal structures are osteopenic. The bony thorax appears intact. No lytic or blastic lesions are identified. Soft tissues: Question a 9 mm enhancing nodule in the right breast, best seen on axial image #134. ABDOMEN AND PELVIS: Liver: The contrast-enhanced liver is normal in size, contour, and attenuation. There is mild intrahepatic biliary ductal dilatation. The hepatic veins and portal veins are patent. Gallbladder: Surgically absent noting clips in the gallbladder fossa. Spleen: Normal in size and attenuation. Pancreas: Unremarkable. Adrenal glands: Bilateral adrenal adenomas measure up to 1.8 cm and are unchanged. Kidneys: The contrast enhanced kidneys demonstrate cortical atrophy and are without hydronephrosis. The kidneys enhance symmetrically. Abdominal vasculature: The abdominal aorta is normal in course and caliber noting advanced atherosclerotic calcification. Bowel: The gastric mucosa appears mildly thickened and hyperemic. There is moderate colonic fecal retention. No bowel obstruction is identified. The appendix is diminutive and grossly unremarkable. Peritoneum/retroperitoneum: There is no intraperitoneal free air or abdominal ascites. There is a small fat-containing umbilical hernia. There is no retroperitoneal hemorrhage. Lymphadenopathy: None. Pelvic viscera: The bladder is normal as visualized. The uterus is surgically absent. No adnexal lesion is seen. Skeletal structures: The skeletal structures are osteopenic. The lumbosacral spine, bony pelvis, and proximal femora appear intact. There is mild lumbosacral spondylosis. Bilateral pars defects are noted at L5. No lytic or blastic lesions are seen. IMPRESSION: 1. Motion compromised examinations. 2. Cardiomegaly with advanced coronary artery calcification. Question mild intralobular septal thickening. This could be seen with acute versus chronic congestive change and clinical correlation will be required. 3. Small right pleural effusion. 4. There is no lobar consolidation or pneumothorax. 5. There is no evidence of solid organ injury in the abdomen or pelvis. 6. The gastric mucosa appears mildly thickened and hyperemic. Correlate clinically for evidence of gastritis. 7. Question a 9 mm enhancing nodule in the right breast. This is not well assessed by CT and nonemergent follow-up with mammography is recommended. 8. There are enlarged mediastinal and hilar lymph nodes. These are nonspecific and may be reactive. Clinical correlation will be required. This can be followed by CT if clinically warranted. 9 Additional findings as above. ACT 112: Positive. There are findings on this exam that require communication between the performing entity and the patient following Patient Test Result Information Act ([place] Act 112) guidelines. Electronically signed by: Geovani Dumont M.D. 03/16/2021 5:[address] 03/16/21 16:01 CT SCAN OF THE CHEST, ABDOMEN, AND PELVIS WITH IV CONTRAST CLINICAL HISTORY: Fall. COMPARISON STUDY: Chest CT dated 01/16/2017. Chest x-ray dated 03/16/2021. TECHNIQUE: Following the IV administration of 95 of Optiray 320, CT scan of the chest, abdomen, and pelvis was performed from the thoracic inlet to the proximal femora. Images are reviewed in the axial, sagittal, and coronal planes. IV contrast was administered without complication. A dose lowering technique was utilized adhering to the principles of ALARA. The Examinations are significantly degraded by motion artifact. CT DOSE: 827.33 mGy.cm FINDINGS: CHEST: Thyroid: Imaged portions of the thyroid gland are normal in size and attenuation. Thoracic aorta: There is atherosclerotic calcification of the thoracic aorta, which is normal in caliber and demonstrates 4-vessel variant arch anatomy. No dissection is seen. Pulmonary vasculature: The pulmonary trunk is normal in caliber. There are no filling defects identified in the central pulmonary vessels to indicate pulmonary embolus. Note that this examination was not protocoled for evaluation of the pulmonary arteries. Heart: The patient is status post midline sternotomy. The heart is enlarged and without pericardial effusion. The coronary arteries are densely calcified. Lungs and pleural spaces: Evaluation of the lung parenchyma is significantly degraded by motion artifact. There is a small right pleural effusion with associated atelectasis. No lobar consolidation is identified. The trachea and central airways appear clear. No pneumothorax is seen. Intralobular septal thickening is suggested. Mediastinum: There are mildly enlarged mediastinal lymph nodes. A right paratracheal node measures 13 mm in short axis. Prevascular nodes measure up to 10 mm in short axis. Lorie: Enlarged hilar nodes measure up to 20 mm in short axis. Axillae: There is no axillary lymphadenopathy. Bony thorax: The skeletal structures are osteopenic. The bony thorax appears intact. No lytic or blastic lesions are identified. Soft tissues: Question a 9 mm enhancing nodule in the right breast, best seen on axial image #134. ABDOMEN AND PELVIS: Liver: The contrast-enhanced liver is normal in size, contour, and attenuation. There is mild intrahepatic biliary ductal dilatation. The hepatic veins and portal veins are patent. Gallbladder: Surgically absent noting clips in the gallbladder fossa. Spleen: Normal in size and attenuation. Pancreas: Unremarkable. Adrenal glands: Bilateral adrenal adenomas measure up to 1.8 cm and are unchanged. Kidneys: The contrast enhanced kidneys demonstrate cortical atrophy and are without hydronephrosis. The kidneys enhance symmetrically. Abdominal vasculature: The abdominal aorta is normal in course and caliber noting advanced atherosclerotic calcification. Bowel: The gastric mucosa appears mildly thickened and hyperemic. There is moderate colonic fecal retention. No bowel obstruction is identified. The appendix is diminutive and grossly unremarkable. Peritoneum/retroperitoneum: There is no intraperitoneal free air or abdominal ascites. There is a small fat-containing umbilical hernia. There is no retroperitoneal hemorrhage. Lymphadenopathy: None. Pelvic viscera: The bladder is normal as visualized. The uterus is surgically absent. No adnexal lesion is seen. Skeletal structures: The skeletal structures are osteopenic. The lumbosacral spine, bony pelvis, and proximal femora appear intact. There is mild lumbosacral spondylosis. Bilateral pars defects are noted at L5. No lytic or blastic lesions are seen. IMPRESSION: 1. Motion compromised examinations. 2. Cardiomegaly with advanced coronary artery calcification. Question mild intralobular septal thickening. This could be seen with acute versus chronic congestive change and clinical correlation will be required. 3. Small right pleural effusion. 4. There is no lobar consolidation or pneumothorax. 5. There is no evidence of solid organ injury in the abdomen or pelvis. 6. The gastric mucosa appears mildly thickened and hyperemic. Correlate clinically for evidence of gastritis. 7. Question a 9 mm enhancing nodule in the right breast. This is not well assessed by CT and nonemergent follow-up with mammography is recommended. 8. There are enlarged mediastinal and hilar lymph nodes. These are nonspecific and may be reactive. Clinical correlation will be required. This can be followed by CT if clinically warranted. 9 Additional findings as above. ACT 112: Positive. There are findings on this exam that require communication between the performing entity and the patient following Patient Test Result Information Act ([place] Act 112) guidelines. Electronically signed by: Geovani Dumont M.D. 03/16/2021 5:04 PM Code Status & VTE Plan VTE Prophylaxis Plan VTE Prophylaxis will be ordered: Yes Supervising Physician Co-Signing Physician Notes I have seen and examined the patient and have discussed the case with the provider above. I agree with the assessment and plan as stated. 60 yo F with a h/o mood disorder on seroquel which was recently increased a couple of weeks ago from 100mg to 200mg presents with a bimalleolar fracture on the left after a fall at home. She is currently encephalopathic after having pain medications in the ER and cannot give a history. Daughter is at the bedside, however, she cannot relay details of the incident because this was unwitnessed. Per record review she did the same thing to the R ankle s/p ORIF in 2017. Per daughter she had broken both ankles "three or four times." She has also had 302 petitions in past for her mood. The patient is in NAD and is arousable to voice but delirious. Cannot provide a reliable ROS, My physical exam is consistent with that above. Multiple imaging studies performed in the ER. Agree with plan above; ortho for definitive plan. Hold seroquel, topamax and tramadol until she is more alert and awake. Keep NPO until that time. Agree with scheduled Tylenol to keep the pain under control. Hold narcotics at this time. Rashel, DO
[2021-03-16] MEDS ORDERED: INSULIN ASPART PER UNIT SC SCH (21:00)
[2021-03-16] MEDS ORDERED: ONDANSETRON INJ 2 MG/ML 2 ML VIAL IV PRN (21:14)
[2021-03-16] MEDS ORDERED: POLYETHYLENE (MIRALAX) 17 GM PACK PO PRN (21:14)
[2021-03-16] MEDS: INSULIN GLARGINE SOLOSTAR 100 UNITS/ML 3 ML PEN SC SCH (21:30)
[2021-03-16] MEDS: ACETAMINOPHEN 500 MG TAB PO SCH (21:33)
[2021-03-16 21:59] LABS: Glucose 343 mg/dl (70-99(Fasting))
[2021-03-16] MEDS ORDERED: MoRPHine SULFATE 4 MG/ML 1 ML CARP\\VIAL ONE (23:50)
[2021-03-17] MEDS: traMADol HCL 50 MG TABLET PO PRN ×3 (01:01→12:08)
[2021-03-17] MEDS: INSULIN ASPART PER UNIT SC SCH ×5 (01:40→20:39)
[2021-03-17 05:33] LABS: Appearance Urine Clear (Clear); Bilirubin Urine Negative (Negative); Blood Urine Negative (Negative); Color Urine Yellow; Glucose Urine UA Negative (Negative); Ketones Urine Negative (Negative); Leukocyte Esterase Urine Negative (Negative); Nitrite Urine Negative (Negative); Protein Urine Negative (Negative); Specific Gravity Urine > 1.045 (1.000-1.030); Urobilinogen Urine Negative (Negative); pH Urine 6.5 (4.5-7.5)
[2021-03-17] MEDS: ACETAMINOPHEN 500 MG TAB PO SCH ×3 (05:35→21:02)
[2021-03-17 07:19] LABS: BUN Creatinine Ratio 16.3 (10-20); Calcium 8.4 mg/dl (8.5-10.1); Creatinine Clr Calc Pharmacy 66.9 ml/min; Est GFR (African American) 83.9 ml/min; Est GFR (Non-African American) 72.4 ml/min; Potassium 3.8 mmol/L (3.5-5.1)
[2021-03-17 07:46] LABS: Hematocrit (blood only) 25.2 % (37-47); Hemoglobin 7.3 g/dL (12.0-16.0); Mean Corpuscular Hemoglobin 25.7 pg (25-34); Mean Corpuscular Volume 88.7 fL (80-100); Mean Platelet Volume 11.4 fL (7.4-10.4); Platelet Count 240 K/uL (130-400); RDW Coefficient of Variation 15.8 % (11.5-14.5); RDW Standard Deviation 51.3 fL (36.4-46.3); Red Blood Count 2.84 M/uL (4.2-5.4); White Blood Count 15.01 K/uL (4.8-10.8)
--- NOTE | 2021-03-17 07:57 | Anesthesiology Consultation ---
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 History Surgery Operation Date: 03/17/21 14:45 Proposed Procedures p Left Open Reduction Internal Fixation Ankle Bimalleolar Fracture - Casa Yo MD Height/Weight Height: 5 ft 3 in Weight: 77.7 kg Allergies Allergy/AdvReac Type Severity Reaction Status Date / Time latex Allergy Mild Rash Verified 03/16/21 17:36 aspirin Allergy Unknown UNKNOWN Verified 03/16/21 17:36 oxycodone AdvReac Intermediate HALLUCINATI Verified 03/16/21 17:36 ONS Medications Home Medications Medication Instructions Recorded Confirmed Last Taken aspirin 81 mg tablet 81 mg PO DAILY 03/16/21 03/16/21 Unknown atorvastatin 80 mg tablet 80 mg PO HS 03/16/21 03/16/21 Unknown clopidogrel 75 mg tablet 75 mg PO DAILY 03/16/21 03/16/21 Unknown donepezil 5 mg tablet 5 mg PO HS 03/16/21 03/16/21 Unknown duloxetine 30 mg capsule,delayed 30 mg PO [facility] 03/16/21 03/16/21 Unknown release duloxetine 60 mg capsule,delayed 60 mg PO QA 03/16/21 03/16/21 Unknown release furosemide 20 mg tablet 60 mg PO DAILY 03/16/21 03/16/21 Unknown gabapentin 300 mg capsule See Rx Instructions .ROUTE .COMPLEX 03/16/21 03/16/21 Unknown insulin glargine 100 unit/mL (3 46 unit SUBCUT [facility] 03/16/21 03/16/21 Unknown mL) subcutaneous pen (Marichuy Diaz U-100 Insulin) lisinopril 10 mg tablet 10 mg PO DAILY 03/16/21 03/16/21 Unknown metoprolol succinate 50 mg 50 mg PO DAILY 03/16/21 03/16/21 Unknown tablet,extended release 24 hr omeprazole 20 mg capsule,delayed 20 mg PO DAILY 03/16/21 03/16/21 Unknown release quetiapine 200 mg tablet 200 mg PO HS 03/16/21 03/16/21 Unknown topiramate 50 mg tablet 50 mg PO BID 03/16/21 03/16/21 Unknown tramadol 50 mg tablet 50 mg PO Q6H PRN 03/16/21 03/16/21 Unknown Active Medications Generic Name Dose Route Start Last Admin Trade Name Kelley PRN Reason Stop Dose Admin Acetaminophen 1,000 mg 03/16/21 22:00 03/17/21 05:35 Acetaminophen 500 Mg Tab PO 04/15/21 21:59 1,000 mg Q8H SAMANTHA Administration Insulin Aspart 0 units 03/17/21 01:30 03/17/21 05:54 Insulin Aspart Per Unit SC 04/16/21 01:29 Not Given Q6 SAMANTHA Insulin Glargine 14 units 03/16/21 21:00 03/16/21 21:30 Insulin Glargine Solostar 100 Units/Ml 3 Ml Pen SC 04/15/21 20:59 14 units BID SAMANTHA Administration Ondansetron HCl 4 mg 03/16/21 21:14 03/16/21 23:53 Ondansetron Inj 2 Mg/Ml 2 Ml Vial IV 04/15/21 21:13 4 mg Q6H PRN Administration Nausea Tramadol HCl 25 - 50 mg 03/16/21 23:39 03/17/21 05:35 Tramadol Hcl 50 Mg Tablet PO 04/15/21 23:38 50 mg Q4H PRN Administration Pain NPO Date Last Intake of Fluids: 03/17/21 Time Last Intake of Fluids: 06:00 Last Intake of Fluids Comment: sips w/ Tylenol routinely ordered Date Last Intake of Solids: 03/16/21 Time Last Intake of Solids: 16:30 Past Medical History Medical History Anxiety Carpal tunnel syndrome, left Chronic congestive heart failure with left ventricular diastolic dysfunction Coronary artery disease Diabetes mellitus, type 2 Psychotic disorder Tobacco use disorder Ulnar neuropathy at elbow of left upper extremity Past Family History Family History Other Diabetes Heart disease Past Surgical History Surgical History Status post cholecystectomy Status post coronary artery bypass grafting Status post hysterectomy Status post ORIF of fracture of ankle R, 2017 Social History Smoking Status: Current every day smoker tobacco type: cigarettes Do You Dip or Chew Tobacco: No Hx Alcohol Use: No Hx Substance Use: No substance use type: does not use Physical Exam Vital Signs Last Vital Signs Temp 98.2 F 03/17/21 03:15 Pulse 77 03/17/21 03:15 Resp 20 03/17/21 03:15 BP 112/71 03/17/21 03:15 Pulse Ox 99 03/17/21 03:15 Testing Laboratory Results 03/17/21 05:51 03/17/21 05:51 PT 10.3 Seconds (9.0-12.0) 03/16/21 14:15 INR 1.0 (0.9-1.1) 03/16/21 14:15 APTT 24.6 Seconds (21.0-31.0) 03/16/21 14:15 Urine Color Yellow 03/17/21 04:24 Urine Appearance Clear (Clear) 03/17/21 04:24 Urine pH 6.5 (4.5-7.5) 03/17/21 04:24 Ur Specific Pony > 1.045 (1.000-1.030) H 03/17/21 04:24 Urine Protein Negative (Negative) 03/17/21 04:24 Urine Glucose (UA) Negative (Negative) 03/17/21 04:24 Urine Ketones Negative (Negative) 03/17/21 04:24 Urine Nitrite Negative (Negative) 03/17/21 04:24 Ur Leukocyte Esterase Negative (Negative) 03/17/21 04:24 Blood Type A Positive 03/16/21 21:00 Antibody Screen NEGATIVE 03/16/21 21:00 03/17/21 03/17/21 03/16/21 05:52 01:31 20:16 POC Glucose 134 H 140 H 211 H Laboratory Tests 03/16/21 16:10 SARS-CoV-2, RNA, NAAT NEGATIVE Electrocardiogram Date: 03/16/21 Normal sinus rhythm, rate 79 bpm Left bundle branch block Abnormal ECG When compared with ECG of 20-JAN-2017 12:14, Left bundle branch block is now Present Chest X-Ray Date: 03/16/21 Findings: + NAD
[2021-03-17] MEDS: DULoxetine HCL 30 MG CAP PO SCH (08:31)
[2021-03-17] MEDS: MoRPHine SULFATE 4 MG/ML 1 ML CARP\\VIAL IV PRN (08:31)
[2021-03-17] MEDS: DULoxetine HCL 60 MG CAP PO SCH (08:31)
[2021-03-17] MEDS: METOPROLOL SUCC 50MG EXT REL TAB PO SCH (08:32)
[2021-03-17] MEDS: PANTOprazole 40 MG TAB PO SCH (08:32)
[2021-03-17] MEDS: ASPIRIN 81 MG ECTAB PO SCH (08:32)
[2021-03-17] MEDS: GABAPENTIN 300 MG CAP PO SCH (08:32)
[2021-03-17] MEDS ORDERED: FUROSEMIDE INJ 20 MG/2 ML VIAL IV ONE (09:06)
[2021-03-17] MEDS ORDERED: SODIUM CHLORIDE 0.9% 250 ML IV PRN (09:21)
--- NOTE | 2021-03-17 09:23 | Cardiology Consultation ---
Date of Consultation March 17, 2021 Assessment & Plan (1) Preop cardiovascular exam: (2) (HFpEF) heart failure with preserved ejection fraction: (3) Bimalleolar fracture of left ankle: (4) Fall: (5) Psychotic disorder: (6) Diabetes mellitus, type 2: (7) Tobacco use disorder: (8) Mitral regurgitation: (9) Coronary artery disease: coronary bypass surgery in 2014 with ALVARADO to LAD SVG to RCA SVG to obtuse marginal SVG to diagonal (10) Hypertension: (11) Carotid stenosis: (12) LBBB (left bundle branch block): The patient was unable to provide any history. I attempted to call her listed contact, a daughter, Perla Webb at the phone n denny provided in the chart. No answer and no voicemail available. Medically complex 60-year-old woman who is unknown to our practice, cardiac history obtained through review of outpatient cardiology note from [facility] from 2018, no further information available from a cardiac standpoint. She does have a history of coronary artery disease status post CABG, intermittent left bundle branch block, diastolic dysfunction with normal LV systolic function, moderate mitral regurgitation and carotid stenosis for which carotid endarterectomy was recommended 3 years ago but the patient declined Given the above history I would place the patient is a high risk for any adverse perioperative cardiovascular event with the risk being greater than 5%. No further cardiac testing intervention would further lower this risk at this time. Again, I attempted to contact her emergency contact but was unsuccessful so I have not been able to review this risk with her daughter Will attempt again. Recommend other providers also attempt to contact to discuss the above risk and review with her POA to determine whether or not this risk is acceptable for proceeding with surgery History of Present Illness Reason for Consultation: preop cardiovascular risk assessment Requesting Physician: Dr. Garcia Attending Physician: Barbara Garcia MD History of Present Illness The patient is a 60-year-old woman who presented to [facility] on 03/16/2021 with reports of a mechanical fall and subsequent left ankle pain. The patient is currently confused after receiving pain medications this morning and is not able to aid in her history. History obtained through review of medical records. The patient has never been seen by our cardiology practice but I was able to find a note from [facility] cardiology from 2018 providing her cardiac history. Currently the patient acknowledges that she is in pain at her left ankle but does not respond appropriately to any further questioning. Past Medical History: Diagnosis Date Anxiety Anxiety state Back, neck problems CAD (coronary artery disease) Depression Diabetes mellitus, type 2 (HCC) Headaches Heart disease Hypertension Kidney stones history of stones, on stuck at present time Psychosis (HCC) Sleep disorder Intermittent left bundle branch block Carotid stenosis patient declining carotid endarterectomy per past reports Variable mitral regurgitation Past Surgical History: Procedure Laterality Date CABG in 2013 with ALVARADO to LAD SVG to RCA SVG to obtuse marginal SVG to diagonal Quadruple bypass CARDIAC CATH showed severe 3 vessels Allergies Allergy/AdvReac Type Severity Reaction Status Date / Time latex Allergy Mild Rash Verified 03/16/21 17:36 aspirin Allergy Unknown UNKNOWN Verified 03/16/21 17:36 oxycodone AdvReac Intermediate HALLUCINATI Verified 03/16/21 17:36 ONS Home Medications Medication Instructions Recorded Confirmed Type aspirin 81 mg tablet 81 mg PO DAILY 03/16/21 03/16/21 History atorvastatin 80 mg tablet 80 mg PO HS 03/16/21 03/16/21 History clopidogrel 75 mg tablet 75 mg PO DAILY 03/16/21 03/16/21 History donepezil 5 mg tablet 5 mg PO HS 03/16/21 03/16/21 History duloxetine 30 mg capsule,delayed 30 mg PO [facility] 03/16/21 03/16/21 History release duloxetine 60 mg capsule,delayed 60 mg PO [facility] 03/16/21 03/16/21 History release furosemide 20 mg tablet 60 mg PO DAILY 03/16/21 03/16/21 History gabapentin 300 mg capsule See Rx Instructions .ROUTE .COMPLEX 03/16/21 03/16/21 History insulin glargine 100 unit/mL (3 46 unit SUBCUT [facility] 03/16/21 03/16/21 History mL) subcutaneous pen (Marichuy Diaz U-100 Insulin) lisinopril 10 mg tablet 10 mg PO DAILY 03/16/21 03/16/21 History metoprolol succinate 50 mg 50 mg PO DAILY 03/16/21 03/16/21 History tablet,extended release 24 hr omeprazole 20 mg capsule,delayed 20 mg PO DAILY 03/16/21 03/16/21 History release quetiapine 200 mg tablet 200 mg PO HS 03/16/21 03/16/21 History topiramate 50 mg tablet 50 mg PO BID 03/16/21 03/16/21 History tramadol 50 mg tablet 50 mg PO Q6H PRN 03/16/21 03/16/21 History Patient History Medical History Anxiety Carpal tunnel syndrome, left Chronic congestive heart failure with left ventricular diastolic dysfunction Coronary artery disease Diabetes mellitus, type 2 Psychotic disorder Tobacco use disorder Ulnar neuropathy at elbow of left upper extremity Surgical History Status post cholecystectomy Status post coronary artery bypass grafting Status post hysterectomy Status post ORIF of fracture of ankle R, 2017 Family History Other Diabetes Heart disease Social History Smoking Status: Current every day smoker Tobacco Type: Cigarettes packs per day: 1; Years Smoked: 35; Second Hand Exposure: Yes; Do You Dip or Chew Tobacco: No; Tobacco Cessation Education Requested by Patient: No Hx Alcohol Use: No Hx Substance Use: No Preferred Language: Maltese Communication Ability: Effective Dope And [employer] Worker Required: No Beliefs That Will Affect Care: Judaism Current Living Situation: Alone Current Living Situation Comment: roommate just moved in recently Other Information That Helps Us Care for You: No Feels Safe at Home: Yes Safety Concerns: Feels Safe At This Time Assistive Devices: Brace/Splint/Immobilizer Review of Systems Review of Systems: Unobtainable due to cognitive status Physical Exam Physical Exam: General: Awake, alert and oriented x 3. No acute distress. HEENT: Normocephalic, atraumatic. Pupils equal, round and reactive to light and accommodation. Extraocular muscles are intact. Anicteric sclera. Moist mucous membranes. Neck: No JVD. No bruit. Cardiovascular: Regular. Positive S-4. Normal S-1 and S-2. No S-3. 3/6 holosystolic ejection murmur, left sternal border, mid-clavicular line with radiation to the axilla. No rubs. Pulmonary: Clear to auscultation bilaterally. No rales, rhonchi, or wheezing. Abdomen: Bowel sounds x 4, soft. No rebound, guarding or tenderness. No organomegaly. Extremities: No clubbing, cyanosis or edema. +2 pedal pulses bilaterally. Skin: Warm and dry. Results & Data ([facility]) Vital Signs (Past 12 Hours) Vital Signs Temp Pulse Pulse Resp BP BP Pulse Ox 03/17/21 07:57 37.3 C 74 18 136/78 99 03/17/21 03:15 36.8 C 77 20 112/71 99 03/16/21 23:41 37.1 C 79 18 126/55 L 94 03/16/21 22:18 80 Diagnostic Findings Interpretation Summary. 11/14/16 There is no prior examination for comparison There is a small sized posterior wall motion abnormality with hypokinesis to akinesis of the segments.The qualitative LV ejection fraction is 55-59% (normal). Severe secondary mitral regurgitation is present related to the focal mid LV posterior wall akinesis with associated significant reduction in posterior MV leaflet motion. Currently at a systolic BP of 130 there is moderate secondary MR. The MR severity was very likely severe on presentation when she has severe HTN as secondary MR fluctuates significant depending on afterload. The left atrium is moderately enlarged (4248 ml/m^2). The left ventricular diastolic function is moderately abnormal (grade II). Normal IVC size and collapsability with inspiration indicates a normal right atrial pressure of 3 mmHg.
--- NOTE | 2021-03-17 09:40 | Hospitalist Progress Note ---
Date of Service March 17, 2021 Assessment & Plan Plan: 1. Left ankle fracture Surgical Management per Orthopedic Surgery, plan for OR later today Cardiology consulted for clearance, risk stratification and optimization 2. Acute on chronic diastolic CHF Appears mildly volume overloaded. CT chest with small right pleural effusion will give lasix 40mg IV once now will give another lasix 40mg IV in between packed RBC 3. Acute on chronic Anemia Most likely from acute blood loss with significant epistaxis recently (at least 5 times per day x 2 weeks) H&P noted, rectal exam in ER normal Hb 10 from 2011. Hb 7.9 on admission and 7.2 today. With her underlying Ca rdiac disease and plan for OR today, will order 2 units packed RBC 3. IDDM -agree with basal bolus regimen as currently ordered 4. CAD with prior CABG -hold plavix, continue metoprolol 50mg daily 5. Mood disorder continue Duloxetine, topiramate 50mg BID, reduce seroquel to 100mg QHS Admission and Anticipated Discharge Date Admission Date: March 16, 2021 Subjective Patient admitted yesterday for a fall after taking Seroquel Patient is a poor historian and unable to give much history other than "I took Seroquel" Spoke with her daughter, Perla, and it appears since she was started on Seroquel, she has been more unsteady on her feet. Perla also reports mom has been experiencing frequent nose bleeds "almost every time she wipes her nose" for at least the past 2 weeks Perla consented for mom to receive blood transfusion Review of Systems Review of Systems: Unable to obtain. Patient very poor historian Physical Exam Physical Exam: No acute distress. Pleasant and comfortable, poor historian Constitutional: Pale Respiratory: diminished at bases. Rales right lower base Cardiovascular: Regular rate and rhythm, no murmurs/rubs/gallops Gastrointestinal (Abdomen): soft, non tender, non distended Musculoskeletal: left ankle in splint. left toes are warm and perfused. right ankle with trace edema Neurologic: awake, knows she is in the hospital and it is 2021, follows commands slowly Psychiatric: flat affect, requires frequent questioning to answer simple questions Results & Data Results & Data ([facility]) Vital Signs (Past 12 Hours) Vital Signs Temp Pulse Pulse Resp BP BP Pulse Ox 03/17/21 07:57 37.3 C 74 18 136/78 99 03/17/21 03:15 36.8 C 77 20 112/71 99 03/16/21 23:41 37.1 C 79 18 126/55 L 94 03/16/21 22:18 80 Critical Care Time A total of 35 minutes critical care time was spent on patient encounter. 50% of time was spent on direct patient care. 50% of time was spent on coordination of care
[2021-03-17] MEDS ORDERED: FUROSEMIDE 40 MG/4 ML VIAL IV SCH (10:00)
--- NOTE | 2021-03-17 10:48 | Pharmacy Report ---
Pharmacy Glycemic Short Note 2 - Date of Service March 17, 2021 - Glycemic Short BSG Results (Last 24 hours): 03/16/21 03/16/21 03/16/21 14:15 19:17 20:16 Glucose 343 H* POC Glucose 246 H 211 H 03/17/21 03/17/21 03/17/21 01:31 05:51 05:52 Glucose 124 H POC Glucose 140 H 134 H OUTPATIENT ANTIDIABETIC REGIMEN: * Basaglar 46 units SC AM * Novolog SSI (prescription last filled 09/2020) * HbA1c pending ASSESSMENT: * 60 yo F admitted yesterday secondary to mechanical fall with ankle fracture. Pharmacy has been consulted to assist with inpatient glycemic management. Patient is NPO for the OR later this afternoon. * BSGs last evening were elevated at 246-211 mg/dL. Patient received 14 units of Lantus at bedtime and 10 units of Novolog between dinner and bedtime. * Fasting BSG was 134 mg/dL this AM. Given NPO status decided to hold Lantus this morning. Will monitor perioperative steroid use and give NPH if necessary. Will give Lantus postoperatively once a diet is order. * Update: Lantus 14 units given prior to OR given elevated BSG around noon. * Novolog was initiated based on weight stress of 2-3. Continue for now. Targeting goal range of 110 - 140 mg/dL to promote wound healing and prevent postoperative infections. PLAN FOR INPATIENT GLYCEMIC CONTROL: * Basal insulin * Lantus 14 units SC BID * Bolus insulin * NovoLog per scale ACHS or Q6hrs while NPO * Goal Range: Low 110 mg/dL - High 140 mg/dL * Correction Factor: 25 mg/dL/unit * Nutritional / Prandial insulin per carb ratio of 1 unit per 8 grams CHO consumed PLAN FOR DISCHARGE: * Called [facility] inpatient lab and HbA1c was unreadable. It will be a send out.
--- NOTE | 2021-03-17 11:13 | Electrocardiogram Report ---
Test Reason : Blood Pressure : / mmHG Vent. Rate : 079 BPM Atrial Rate : 079 BPM P-R Int : 150 ms QRS Dur : 148 ms QT Int : 444 ms P-R-T Axes : 052 -09 102 degrees QTc Int : 509 ms Normal sinus rhythm Left bundle branch block Abnormal ECG When compared with ECG of 20-JAN-2017 12:14, Left bundle branch block is now Present Confirmed by Macario Candelaria ([id number]) on 03/17/2021 11:13:02 AM Referred By: Confirmed By:Macario Candelaria
[2021-03-17] MEDS ORDERED: ROPIVACAINE 0.5% 5 MG/ML 30 ML VIAL ONE (12:06)
[2021-03-17] MEDS ORDERED: INSULIN GLARGINE SOLOSTAR 100 UNITS/ML 3 ML PEN SC STA (12:06)
--- NOTE | 2021-03-17 13:14 | Orthopedic Consultation ---
Date of Service March 17, 2021 Assessment & Plan (1) Bimalleolar fracture of left ankle: Operative treatment of the left ankle fracture is planned. To be discussed this with her power of circle shear operator/daughter. We will proceed with internal fixation. The risks and benefits were explained. She is significantly rest of her medical comorbidities and they are aware. (2) Lisfranc fracture: We will treat her Lisfranc injury conservatively. Is nondisplaced. She will be nonweightbearing for 6 weeks and probably weightbearing in a boot for 6 weeks. History of Present Illness Reason for Consultation: .Left ankle injury. Requesting Physician: . Attending Physician: Barbara Garcia MD . Patient is a 60-year-old female who sustained an injury to her left ankle last evening. She apparently was just walking in her house and her leg gave out. Winifred recinos was brought to emergency room had an extensive work-up which revealed a left ankle fracture as well as a foot fracture. We are consulted for evaluation. The patient's been admitted the hospital medically optimized. Allergies Allergy/AdvReac Type Severity Reaction Status Date / Time latex Allergy Mild Rash Verified 03/16/21 17:36 aspirin Allergy Unknown UNKNOWN Verified 03/16/21 17:36 oxycodone AdvReac Intermediate HALLUCINATI Verified 03/16/21 17:36 ONS Home Medications Medication Instructions Recorded Confirmed Type aspirin 81 mg tablet 81 mg PO DAILY 03/16/21 03/16/21 History atorvastatin 80 mg tablet 80 mg PO HS 03/16/21 03/16/21 History clopidogrel 75 mg tablet 75 mg PO DAILY 03/16/21 03/16/21 History donepezil 5 mg tablet 5 mg PO HS 03/16/21 03/16/21 History duloxetine 30 mg capsule,delayed 30 mg PO QAM 03/16/21 03/16/21 History release duloxetine 60 mg capsule,delayed 60 mg PO QAM 03/16/21 03/16/21 History release furosemide 20 mg tablet 60 mg PO DAILY 03/16/21 03/16/21 History gabapentin 300 mg capsule See Rx Instructions .ROUTE .COMPLEX 03/16/21 03/16/21 History insulin glargine 100 unit/mL (3 46 unit SUBCUT QAM 03/16/21 03/16/21 History mL) subcutaneous pen (Basaglar KwikPen U-100 Insulin) lisinopril 10 mg tablet 10 mg PO DAILY 03/16/21 03/16/21 History metoprolol succinate 50 mg 50 mg PO DAILY 03/16/21 03/16/21 History tablet,extended release 24 hr omeprazole 20 mg capsule,delayed 20 mg PO DAILY 03/16/21 03/16/21 History release quetiapine 200 mg tablet 200 mg PO HS 03/16/21 03/16/21 History topiramate 50 mg tablet 50 mg PO BID 03/16/21 03/16/21 History tramadol 50 mg tablet 50 mg PO Q6H PRN 03/16/21 03/16/21 History Past Med/Surg History Medical History Anxiety Carpal tunnel syndrome, left Chronic congestive heart failure with left ventricular diastolic dysfunction Coronary artery disease Diabetes mellitus, type 2 Psychotic disorder Tobacco use disorder Ulnar neuropathy at elbow of left upper extremity Surgical History Status post cholecystectomy Status post coronary artery bypass grafting Status post hysterectomy Status post ORIF of fracture of ankle R, 2017 Family History Other Diabetes Heart disease Social History Smoking Status: Current every day smoker Tobacco Type: Cigarettes packs per day: 1; Years Smoked: 35; Second Hand Exposure: Yes; Do You Dip or Chew Tobacco: No; Tobacco Cessation Education Requested by Patient: No Hx Alcohol Use: No Hx Substance Use: No Preferred Language: Mongolian Communication Ability: Effective Process Laboratory Specialist Required: No Beliefs That Will Affect Care: Episcopal Current Living Situation: Alone Current Living Situation Comment: roommate just moved in recently Other Information That Helps Us Care for You: No Feels Safe at Home: Yes Safety Concerns: Feels Safe At This Time Assistive Devices: Brace/Splint/Immobilizer Review of Systems All systems reviewed & are unremarkable except as noted in HPI & below. Physical Exam . Physical examination reveals a pleasant W female. She looks older than her stated age. She is lying on the bed. She is a bit confused. Examination of the left ankle reveals a splint to be in place. There is no gross abnormality. Her toes are pink. She does have spontaneously flex extend her toes and on command. Results & Data Results & Data Laboratory Results . Diagnostic Findings . X-rays of the left ankle reveal Biomet ankle fracture. She also has a fracture of the left foot involving the second and first metatarsals. No significant displacement. PG Care Time/CCT Total # of Minutes Spent Total Time Spent with Patient: Total time spent is greater than 50% in coordination of care (as documented) at patient's floor/unit and/or counseling patient: Coding Level of Care Code 61318 Inpt Consult Level 5 Diagnoses Bimalleolar fracture of left ankle S82.842A Lisfranc fracture
[2021-03-17] MEDS ORDERED: PROPOFOL IV EMULSION 10 MG/ML 20 ML VIAL IV ONE (13:17)
[2021-03-17] MEDS ORDERED: fentaNYL citrate 100 MCG/2 ML VIAL ONE (13:17)
[2021-03-17] MEDS ORDERED: DEXAMETHASONE SOD INJ 4 MG/ML VIAL ONE (13:17)
[2021-03-17] MEDS ORDERED: LIDOCAINE 2% 2 ML VIAL/AMP(20MG/ML) INFIL ONE (13:17)
[2021-03-17] MEDS ORDERED: ONDANSETRON INJ 2 MG/ML 2 ML VIAL ONE ×2 (13:17→14:30)
[2021-03-17] MEDS ORDERED: MIDAZOLAM HCL 1 MG/ML 2ML VIAL ONE (13:17)
[2021-03-17] MEDS ORDERED: EPINEPHrine INJ 1 MG/ML AMP ONE (13:23)
[2021-03-17] MEDS ORDERED: BUPIVACAINE 0.5 % 5 MG/1 ML MPF 30ML VIAL ONE (13:24)
[2021-03-17] MEDS ORDERED: ceFAZolin 1000MG 1,000 MG/7.5 ML SYR IV ONE (13:29)
[2021-03-17] MEDS ORDERED: FUROSEMIDE 40 MG/4 ML VIAL IV ONE ×2 (13:45→14:38)
[2021-03-17] MEDS ORDERED: PHENYLEPHRINE 100MCG/ML 5ML SYR ONE (14:31)
[2021-03-17 14:50] LABS: Estimated Average Glucose 192 mg/dl; Hemoglobin A1C 8.3 % (4.5-5.6)
--- NOTE | 2021-03-17 15:40 | Fluoroscopy Report ---
FL ankle LT min 3V RTN CLINICAL HISTORY: LT ORIF COMPARISON STUDY: 03/16/2021 FLUOROSCOPY TIME: 23 seconds. FLUOROSCOPIC IMAGES: 4 FINDINGS: Plate and screw fixation is seen transfixing fractures of the distal tibia and fibula. IMPRESSION: Status post internal fixation of the left ankle. ACT 112: Negative or not required by law. Electronically signed by: Juan Francisco Serrano M.D. 03/17/2021 3:38 PM
--- NOTE | 2021-03-17 15:59 | Anesthesiology Progress Note ---
Date of Service March 17, 2021 Anesthesia Post Procedure Vital Signs Vital Signs: Temp Pulse Pulse Pulse Resp BP BP 03/17/21 15:50 36.4 C L 78 20 152/75 H 03/17/21 15:40 78 16 117/82 03/17/21 15:30 79 18 148/75 H 03/17/21 15:20 36.1 C L 79 14 155/74 H 03/17/21 12:52 37.1 C 78 20 119/67 03/17/21 12:50 37.1 C 79 18 119/67 03/17/21 12:20 37.1 C 79 18 119/67 03/17/21 12:10 37.0 C 80 18 134/63 03/17/21 11:55 37.4 C 75 18 130/77 03/17/21 11:34 36.8 C 78 18 125/54 L 03/17/21 11:21 37.2 C 79 16 112/71 03/17/21 09:32 74 03/17/21 07:57 37.3 C 74 18 03/17/21 03:15 36.8 C 77 20 112/71 03/16/21 23:41 37.1 C 79 18 03/16/21 22:18 80 03/16/21 20:16 81 03/16/21 20:15 36.8 C 79 18 03/16/21 20:00 79 18 100/68 03/16/21 19:30 78 18 125/64 03/16/21 19:00 79 18 126/71 03/16/21 18:30 81 113/55 L 03/16/21 18:00 82 20 123/68 03/16/21 17:30 82 14 106/53 L 03/16/21 17:03 84 9 L 122/60 03/16/21 16:01 82 11 L 152/80 H 03/16/21 16:00 83 21 BP Pulse Ox 03/17/21 15:50 98 03/17/21 15:40 98 03/17/21 15:30 99 03/17/21 15:20 100 03/17/21 12:52 91 03/17/21 12:50 100 03/17/21 12:20 100 03/17/21 12:10 96 03/17/21 11:55 95 03/17/21 11:34 97 03/17/21 11:21 85 L 03/17/21 09:32 03/17/21 07:57 136/78 99 03/17/21 03:15 99 03/16/21 23:41 126/55 L 94 03/16/21 22:18 03/16/21 20:16 03/16/21 20:15 100/68 97 03/16/21 20:00 97 03/16/21 19:30 98 03/16/21 19:00 98 03/16/21 18:30 96 03/16/21 18:00 96 03/16/21 17:30 100 03/16/21 17:03 100 03/16/21 16:01 100 03/16/21 16:00 94 Pain Intensity Left Lower Leg: Pain Intensity: 10 Transfer of Care Handoff Completed per policy Notes Mental Status: alert / awake / arousable Patient Amnestic to Procedure: Yes Nausea / Vomiting: adequately controlled Pain: adequately controlled Airway Patency, RR, SpO2: stable & adequate BP & HR: stable & adequate Hydration State: stable & adequate Anesthetic Complications: no major complications apparent
[2021-03-17] MEDS ORDERED: bisacodyL 10 MG SUPP PR PRN (16:25)
[2021-03-17] MEDS ORDERED: NALOXONE HCL 0.4 MG/1 ML VIAL/CARP IV PRN (16:25)
[2021-03-17] MEDS ORDERED: METOCLOPRAMIDE HCL INJ 5 MG/ML 2 ML VIAL IV PRN (16:25)
[2021-03-17] MEDS ORDERED: SODIUM CHLORIDE 0.9% 1000ML 1,000 ML IV SCH (16:25)
[2021-03-17] MEDS ORDERED: ALUMINUM/MAGNESIUM SUSP 30 ML UDC PO PRN (16:25)
[2021-03-17] MEDS ORDERED: ONDANSETRON INJ 2 MG/ML 2 ML VIAL IV PRN (16:25)
--- NOTE | 2021-03-17 18:12 | Operative Report ---
Post Operative Report Pre & Post Diagnosis Operation Date: 03/17/21 14:45 Pre-Op Diagnosis: Bimalleolar fracture of left ankle Post-Op Diagnosis: Bimalleolar fracture of left ankle I identified the patient and participated in the time-out.: Yes Procedure Operation Date: 03/17/21 14:45 Actual Procedures p Left Open Reduction Internal Fixation Ankle Bimalleolar Fracture(Left) - Casa Yo MD Surgeon Casa Yo MD Box Feeder 8 MARY Chinchilla Estimated Blood Loss 20 Findings Consistent with Post-Op Diagnosis Findings revealed left bimalleolar ankle fracture. Her bone was fairly osteopenic. Specimens None Anesthesia Type General Complications none Disposition Accompanied Patient To Recovery: No Indications Patient is a 60-year-old female with multiple medical comorbidities sustained a fall yesterday. She was at home when she sustained this fall. She was brought to emergency room where x-rays were ankle fracture. She also has a list franc/foot fracture. She was admitted by the hospitalist service. She had extensive work-up. She was medically optimized by the medicine people as well as her lab tech. She is indicated for surgical repair of her ankle. The decision was made to treat her a foot injury conservatively. Description of Procedure Operative implants consist of: 1. Medial sided implants consisted of a 5 hole one third semitubular plate with two 3.5 cortical screws, one 4.0 partially-threaded cancellous screw, and one fully threaded cancellous screw. 2. Lateral side implants consisted of an 8 hole one third semitubular plate, 3.5 fully threaded cortical screws x3, 4.0 fully threaded cancellous screw x2, 1 partially-threaded 4.0 cancellous screw. The patient was taken to the operating, identified, placed on the operating table supine position protectors were properly padded. IV antibiotics tried by anesthesia team. A general anesthetic was implemented. A left thigh turn was then placed. The left lower extremity splint was removed. The left lower extremity was then scrubbed with Hibiclens, prepped with ChloraPrep and draped in usual sterile fashion. The left leg was elevated exsanguinated with use of an Esmarch in terms playset 300 mmHg. At 10 she was first drawn on the medial side. A curvilinear incision was made over the medial side of the ankle over the medial malleolus. Sharp dissection was carried out directly down through the soft tissues to the fracture site. The fracture was visualized. I anatomically reduced this and held it with 2 K wires. This was verified fluoroscopically. I then contoured a 5 hole one third semitubular plate to the medial side of the ankle to serve in an antiglide fashion. Was then fixed with a single partially-threaded cancellous screw just above the joint line and then 2 additional 3.5 fully threaded cortical screws. Described anatomic fixation. Attention turned to the lateral malleolus. Direct lateral approach to the fibula was then performed through longitudinal incision over the posterior lateral border the fibula. Sharp dissection was carried through the subcutaneous tissue directly down the fibula. The fibula was reduced and held anatomically. Placed a single 4.0 partially-threaded cancellous screw across the fracture site from anterior to posterior. I was able to line up the lateral cortex and the anterior posterior cortex very nicely but there still seem to be a little bit gap medially which I did not feel like I could make any better. I then contoured an 8 hole one third semitubular plate to the lateral aspect of fibula. It was fixed proximally with three 3.5 fully threaded cortical screws and distally with 2 full the threaded 4.0 cancellous screws. X-rays brought in. All hardware was appropriately positioned. I stressed the ankle and there was no gapping in the clear space or the syndesmosis. I then irrigated the wound and injected locally with 30 cc of half percent Marcaine with epinephrine. The tourniquet was then let down for turn time 53 minutes. Hemostasis assured use electrocautery. The periosteum of both incisions were then closed with 2-0 Vicryl suture in a [id number] fashion. The subcutaneous tissues of both wounds were closed with 2-0 Vicryl suture in buried knot fashion skin was then closed with 3-0 nylon suture in simple fashion. Leg was then cleaned and dried and sterile dressing was Xeroform, 4 x 4's, sterile cast padding, and a well-padded posterior and stirrup type splint were applied. The patient then brought out of general incision transferred to the recovery room in stable condition. The patient tolerated procedure well and no complications. Ze Chinchilla, my physician photographer's assistant, was present for the entire procedure. His assistance was required for proper patient positioning, prepping and draping, surgical exposure, retraction, perform the technical details the operation, placement of hardware, closure of the wound, placement of sterile bandage and sp lint. I attest to the content of the Intraoperative Record and any orders documented therein. Any exceptions are noted below.
[2021-03-17] MEDS: DOCUSATE SODIUM 100 MG CAP PO SCH (19:31)
[2021-03-17] MEDS: GABAPENTIN 600 MG TAB PO SCH (19:31)
[2021-03-17] MEDS: SENNA 8.6 MG TAB PO SCH (19:32)
[2021-03-17] MEDS: DONEPEZIL HCL 5 MG TAB PO SCH (19:32)
[2021-03-17] MEDS: QUEtiapine FUMARATE 100 MG TABLET PO SCH (19:32)
[2021-03-17] MEDS: TOPIRAMATE 50 MG TAB PO SCH (19:32)
[2021-03-17] MEDS: ATORVASTATIN 40 MG TAB PO SCH (19:32)
[2021-03-17] MEDS: INSULIN GLARGINE SOLOSTAR 100 UNITS/ML 3 ML PEN SC SCH (20:38)
[2021-03-17] MEDS: ceFAZolin 1000MG 1,000 MG/7.5 ML SYR IV SCH (21:01)
[2021-03-18] MEDS: traMADol HCL 50 MG TABLET PO PRN ×3 (00:30→20:35)
[2021-03-18] MEDS: ceFAZolin 1000MG 1,000 MG/7.5 ML SYR IV SCH (05:09)
[2021-03-18] MEDS: ACETAMINOPHEN 500 MG TAB PO SCH ×3 (05:10→22:24)
[2021-03-18 07:09] LABS: Hematocrit (blood only) 32.4 % (37-47); Hemoglobin 10.2 g/dL (12.0-16.0); Mean Corpuscular Hemoglobin 27.4 pg (25-34); Mean Corpuscular Hgb Conc 31.5 g/dL (32-36); Mean Corpuscular Volume 87.1 fL (80-100); Mean Platelet Volume 11.3 fL (7.4-10.4); Platelet Count 217 K/uL (130-400); RDW Coefficient of Variation 15.3 % (11.5-14.5); RDW Standard Deviation 48.6 fL (36.4-46.3); Red Blood Count 3.72 M/uL (4.2-5.4); White Blood Count 23.37 K/uL (4.8-10.8)
[2021-03-18 07:45] LABS: BUN Creatinine Ratio 16.7 (10-20); Calcium 8.2 mg/dl (8.5-10.1); Creatinine Clr Calc Pharmacy 64.5 ml/min; Est GFR (African American) 79.4 ml/min; Est GFR (Non-African American) 68.5 ml/min; Magnesium 1.6 mg/dl (1.7-2.4); Potassium 3.3 mmol/L (3.5-5.1)
[2021-03-18] MEDS ORDERED: FUROSEMIDE 40 MG/4 ML VIAL IV ONE (08:45)
[2021-03-18] MEDS ORDERED: FUROSEMIDE 20 MG TAB PO SCH (09:00)
[2021-03-18] MEDS: TOPIRAMATE 50 MG TAB PO SCH ×2 (09:05→20:08)
[2021-03-18] MEDS: GABAPENTIN 300 MG CAP PO SCH (09:05)
[2021-03-18] MEDS: DULoxetine HCL 30 MG CAP PO SCH (09:05)
[2021-03-18] MEDS: PANTOprazole 40 MG TAB PO SCH (09:05)
[2021-03-18] MEDS: MULTIVITAMIN TAB PO SCH (09:05)
[2021-03-18] MEDS: DULoxetine HCL 60 MG CAP PO SCH (09:05)
[2021-03-18] MEDS: ASPIRIN 81 MG ECTAB PO SCH (09:05)
[2021-03-18] MEDS: DOCUSATE SODIUM 100 MG CAP PO SCH ×2 (09:06→20:15)
[2021-03-18] MEDS: INSULIN ASPART PER UNIT SC SCH ×4 (09:06→20:03)
[2021-03-18] MEDS: INSULIN GLARGINE SOLOSTAR 100 UNITS/ML 3 ML PEN SC SCH (09:06)
[2021-03-18] MEDS: lisinopril 10 MG TAB PO SCH (09:13)
[2021-03-18] MEDS: METOPROLOL SUCC 50MG EXT REL TAB PO SCH (09:13)
[2021-03-18] MEDS: MoRPHine SULFATE 4 MG/ML 1 ML CARP\\VIAL IV PRN (10:58)
--- NOTE | 2021-03-18 12:18 | Hospitalist Progress Note ---
Date of Service March 18, 2021 Assessment & Plan Plan: 1. Left ankle fracture Management per Ortho. S/p ORIF yesterday Cardiology consulted for clearance, risk stratification and optimization. Appreciate input 2. Acute on chronic diastolic CHF -s/p total 60mg IV lasix yesterday -will give another 40mg IV lasix today and resume lasix 60mg PO tomorrow -still appears mildly volume overloaded 3. Acute on chronic Anemia Most likely from acute blood loss with significant epistaxis recently (at least 5 times per day x 2 weeks) H&P noted, rectal exam in ER normal Hb 10 from 2011. Hb 7.9--> 7.2. Received 2 units packed RBC yesterday with appropriate response 4. Acute hypoxic respiratory failure -wean oxygen as tolerated -start saline nasal spray, petroleum jelly into nares to help with comfort and prevent epistaxis 5. IDDM -agree with basal bolus regimen as currently ordered 6. CAD with prior CABG -hold plavix, continue metoprolol 50mg daily 7. Mood disorder continue Duloxetine, topiramate 50mg BID, seroquel reduced to 100mg QHS 8. DVT ppx -with no evidence of bleed. start SQ heparin 9. Disposition -Pending PT evaluation Admission and Anticipated Discharge Date Admission Date: March 16, 2021 Subjective Poor historian. Kept saying "something is in here" (pointing to her nasal canula). Went to OR yesterday, still requiring oxygen, reports pain in her left ankle Physical Exam Physical Exam: no acute distress, poor historian, sitting in bed with breakfast Neck: supple Respiratory: diminished with crackles at bases, poor respiratory effort, no wheezing Cardiovascular: regular rate and rhythm, no murmurs/rubs/gallops Gastrointestinal (Abdomen): soft, non tender, non distended Musculoskeletal: left ankle dressed--clean/dry/intact Right ankle with trace edema Psychiatric: anxious, speech is repetitive and tangential Results & Data Results & Data ([facility]) Vital Signs (Past 12 Hours) Vital Signs Temp Pulse Pulse Resp BP BP Pulse Ox 03/18/21 11:24 37.7 C H 89 20 135/79 92 03/18/21 08:00 37.8 C H 87 20 151/78 H 94 03/18/21 07:08 88 03/18/21 03:15 37.3 C 83 20 153/82 H 93
--- NOTE | 2021-03-18 12:23 | Pharmacy Report ---
Pharmacy Glycemic Short Note 2 - Date of Service March 18, 2021 - Glycemic Short BSG Results (Last 24 hours): 03/17/21 03/17/21 03/17/21 13:02 15:24 16:55 Glucose POC Glucose 197 H 142 H 179 H 03/17/21 03/18/21 03/18/21 20:07 06:37 07:56 Glucose 112 H POC Glucose 202 H 108 H 03/18/21 12:05 Glucose POC Glucose 181 H OUTPATIENT ANTIDIABETIC REGIMEN: * Basaglar 46 units SC AM * Novolog SSI (prescription last filled 09/2020) * HbA1c: 8.3% (03/17/21) ASSESSMENT: 03/18/21: * Ms Welch was hyperglycemic post-op yesterday. BSGs have been reasonable thus far today. * Lantus transitioned back to QAM dosing this morning, for ease of discharge planning. * Novolog parameters were tightened last evening and appear to be appropriate. No further changes at this time. 03/17 * 60 yo F admitted yesterday secondary to mechanical fall with ankle fracture. Pharmacy has been consulted to assist with inpatient glycemic management. Patient is NPO for the OR later this afternoon. * BSGs last evening were elevated at 246-211 mg/dL. Patient received 14 units of Lantus at bedtime and 10 units of Novolog between dinner and bedtime. * Fasting BSG was 134 mg/dL this AM. Given NPO status decided to hold Lantus this morning. Will monitor perioperative steroid use and give NPH if necessary. Will give Lantus postoperatively once a diet is order. * Update: Lantus 14 units given prior to OR given elevated BSG around noon. * Novolog was initiated based on weight stress of 2-3. Continue for now. Targeting goal range of 110 - 140 mg/dL to promote wound healing and prevent postoperative infections. PLAN FOR INPATIENT GLYCEMIC CONTROL: * Basal insulin * Lantus 30 units SC qAM * Bolus insulin * NovoLog per scale ACHS or Q6hrs while NPO * Goal Range: Low 110 mg/dL - High 140 mg/dL * Correction Factor: 20 mg/dL/unit * Nutritional / Prandial insulin per carb ratio of 1 unit per 6 grams CHO consumed PLAN FOR DISCHARGE: * A1c: 8.3% * This indicates suboptimal glycemic control in a 60yo patient. Goal A1c likely closer to 7.0%. * Suspect that pt may resume home regimen on discharge, as long as no contraindications are present. * Recommend prompt f/u with outpt provider after discharge to work toward optimizing A1c.
[2021-03-18] MEDS ORDERED: POTASSIUM CHLORIDE CRTAB 20 MEQ TABCR PO STA (12:58)
[2021-03-18] MEDS: HYDROmorphone INJ 0.5 MG/0.5 ML SYR IV PRN ×2 (13:32→19:15)
[2021-03-18] MEDS: MAGNESIUM SULFATE / D5W 1 GM/100 ML BAG IV SCH ×2 (13:33→15:38)
--- NOTE | 2021-03-18 14:21 | XRay Report ---
XR chest 2V PA/lateral HISTORY: Hypoxia, CHF. Evaluate for pneumonia COMPARISON: Chest 03/16/2021. FINDINGS: There are low lung volumes. No pneumothorax. The heart remains enlarged. There is mild cent ral pulmonary vascular congestion without overt edema. Suspect trace bilateral pleural effusions. Pos tsternotomy changes. IMPRESSION: Cardiomegaly, trace bilateral pleural effusions, and mild congestive change. This is similar to the p rior study. ACT 112: Negative or not required by law. Electronically signed by: Fred Blanc M.D. 03/18/2021 2:19 PM
--- NOTE | 2021-03-18 16:13 | Cardiology Progress Note ---
Date of Service March 18, 2021 Assessment & Plan (1) Preop cardiovascular exam: (2) (HFpEF) heart failure with preserved ejection fraction: (3) Bimalleolar fracture of left ankle: (4) Fall: (5) Psychotic disorder: (6) Diabetes mellitus, type 2: (7) Tobacco use disorder: (8) Mitral regurgitation: (9) Coronary artery disease: Plan: coronary bypass surgery in 2013 with ALVARADO to LAD SVG to RCA SVG to obtuse marginal SVG to diagonal (10) Hypertension: (11) Carotid stenosis: (12) LBBB (left bundle branch block): Plan: The patient was unable to provide any history. I attempted to call her listed contact, a daughter, Perla Webb at the phone number provided in the chart. No answer and no voicemail available. Medically complex 60-year-old woman who is unknown to our practice, cardiac history obtained through review of outpatient cardiology note from [facility] from 2019, no further information available from a cardiac standpoint. She does have a history of coronary artery disease status post CABG, intermittent left bundle branch block, diastolic dysfunction with normal LV systolic function, moderate mitral regurgitation and carotid stenosis for which carotid endarterectomy was recommended 3 years ago but the patient declined Patient underwent surgery without complication. We will obtain carotid Dopplers to follow history of carotid stenosis Blood pressure currently well controlled Continue current cardiac medications. Given complex peripheral vascular disease history recommend restarting Plavix once bleeding risk is acceptable postoperatively. Admission and Anticipated Discharge Date Admission Date: March 16, 2021 Subjective Patient seen and examined, chart reviewed. Patient remains significantly confused. Review of Systems Review of Systems: Unobtainable due to mental health condition Physical Exam Physical Exam: General: Awake, alert but confused. No acute distress. HEENT: Normocephalic, atraumatic. Pupils equal, round and reactive to light and accommodation. Extraocular muscles are intact. Anicteric sclera. Moist mucous membranes. Neck: No JVD. No bruit. Cardiovascular: Regular. Positive S-4. Normal S-1 and S-2. No S-3. 3/6 holosystolic ejection murmur, left sternal border, mid-clavicular line with radiation to the axilla. No rubs. Pulmonary: Clear to auscultation bilaterally. No rales, rhonchi, or wheezing. Abdomen: Bowel sounds x 4, soft. No rebound, guarding or tenderness. No organomegaly. Extremities: No clubbing, cyanosis or edema. +2 pedal pulses bilaterally. Skin: Warm and dry. Results & Data ([facility]) Vital Signs (Past 12 Hours) Vital Signs Temp Pulse Pulse Resp BP BP Pulse Ox 03/18/21 16:00 37.2 C 84 18 125/71 95 03/18/21 15:11 85 03/18/21 11:24 37.7 C H 89 20 135/79 92 03/18/21 08:00 37.8 C H 87 20 151/78 H 94 03/18/21 07:08 88
[2021-03-18] MEDS: GABAPENTIN 600 MG TAB PO SCH (20:05)
[2021-03-18] MEDS: ATORVASTATIN 40 MG TAB PO SCH (20:05)
[2021-03-18] MEDS: SENNA 8.6 MG TAB PO SCH (20:05)
[2021-03-18] MEDS: QUEtiapine FUMARATE 100 MG TABLET PO SCH (20:07)
[2021-03-18] MEDS: HEPARIN SOD 5,000 UNIT/0.5 ML VIAL SQ SCH (20:07)
[2021-03-18] MEDS: DONEPEZIL HCL 5 MG TAB PO SCH (20:08)
[2021-03-19] MEDS: ACETAMINOPHEN 500 MG TAB PO SCH ×3 (06:09→21:15)
[2021-03-19 06:32] LABS: Hematocrit (blood only) 31.4 % (37-47); Hemoglobin 9.8 g/dL (12.0-16.0); Mean Corpuscular Hemoglobin 27.7 pg (25-34); Mean Corpuscular Hgb Conc 31.2 g/dL (32-36); Mean Corpuscular Volume 88.7 fL (80-100); Mean Platelet Volume 11.2 fL (7.4-10.4); Platelet Count 199 K/uL (130-400); RDW Coefficient of Variation 15.7 % (11.5-14.5); RDW Standard Deviation 51.1 fL (36.4-46.3); Red Blood Count 3.54 M/uL (4.2-5.4); White Blood Count 20.88 K/uL (4.8-10.8)
[2021-03-19 06:57] LABS: BUN Creatinine Ratio 19.1 (10-20); Calcium 8.2 mg/dl (8.5-10.1); Creatinine Clr Calc Pharmacy 65.2 ml/min; Est GFR (African American) 80.5 ml/min; Est GFR (Non-African American) 69.5 ml/min; Magnesium 2.2 mg/dl (1.7-2.4); Potassium 3.7 mmol/L (3.5-5.1)
[2021-03-19] MEDS: METOPROLOL SUCC 50MG EXT REL TAB PO SCH (07:31)
[2021-03-19] MEDS: TOPIRAMATE 50 MG TAB PO SCH ×2 (07:31→21:16)
[2021-03-19] MEDS: MULTIVITAMIN TAB PO SCH (07:31)
[2021-03-19] MEDS: PANTOprazole 40 MG TAB PO SCH (07:31)
[2021-03-19] MEDS: DOCUSATE SODIUM 100 MG CAP PO SCH ×2 (07:31→21:19)
[2021-03-19] MEDS: POTASSIUM CHLORIDE CRTAB 20 MEQ TABCR PO SCH (07:31)
[2021-03-19] MEDS: ASPIRIN 81 MG ECTAB PO SCH (07:32)
[2021-03-19] MEDS: GABAPENTIN 300 MG CAP PO SCH (07:32)
[2021-03-19] MEDS: DULoxetine HCL 60 MG CAP PO SCH (07:32)
[2021-03-19] MEDS: HEPARIN SOD 5,000 UNIT/0.5 ML VIAL SQ SCH ×2 (07:32→21:20)
[2021-03-19] MEDS: lisinopril 10 MG TAB PO SCH (07:32)
[2021-03-19] MEDS: DULoxetine HCL 30 MG CAP PO SCH (07:32)
--- NOTE | 2021-03-19 07:50 | Ultrasound Report ---
ULTRASOUND OF THE CAROTID ARTERIES CLINICAL HISTORY: Carotid stenosis. COMPARISON STUDY: No priors. TECHNIQUE: Real-time, grayscale, and color Doppler sonography of the carotid arteries is performed. I mages are reviewed in the transverse and longitudinal planes. FINDINGS: Blood pressure in the right arm measures 130/75 and blood pressure in the left arm measures 135/80. The carotid arteries are patent bilaterally and demonstrate antegrade flow. There is mild to moderate echogenic shadowing atherosclerotic plaque seen in the carotid bulbs bilaterally. Normal doppler art erial waveforms are seen throughout. Velocity measurements are listed below. Common carotid peak systolic velocity (cm/sec): RIGHT: 80 LEFT: 61 ICA proximal peak systolic velocity (cm/sec): RIGHT: 143 LEFT: 88 ICA mid peak systolic velocity (cm/sec): RIGHT: 162 LEFT: 88 ICA distal peak systolic velocity (cm/sec): RIGHT: 77 LEFT: 97 ICA/CC peak systolic ratio: RIGHT: 2.0 LEFT: 1.6 Antegrade flow was shown in the vertebral arteries. The external carotid arteries are patent. IMPRESSION: 1. There is evidence of 50-69% stenosis of the proximal right internal carotid artery. 2. There is no sonographic evidence of hemodynamically significant stenosis in the left carotid arter ial system. 3. Antegrade flow is shown in the vertebral arteries. ACT 112: Negative or not required by law. Electronically signed by: Geovani Dumont M.D. 03/19/2021 7:49 AM
[2021-03-19] MEDS ORDERED: FUROSEMIDE 40 MG/4 ML VIAL IV SCH (09:00)
[2021-03-19] MEDS ORDERED: FUROSEMIDE 20 MG TAB PO SCH (09:00)
[2021-03-19] MEDS: INSULIN GLARGINE SOLOSTAR 100 UNITS/ML 3 ML PEN SC SCH (09:09)
[2021-03-19] MEDS: INSULIN ASPART PER UNIT SC SCH ×4 (09:10→21:15)
[2021-03-19] MEDS: traMADol HCL 50 MG TABLET PO PRN (10:41)
--- NOTE | 2021-03-19 11:18 | Cardiology Progress Note ---
Date of Service March 19, 2021 Assessment & Plan (1) Preop cardiovascular exam: (2) (HFpEF) heart failure with preserved ejection fraction: (3) Bimalleolar fracture of left ankle: (4) Fall: (5) Psychotic disorder: (6) Diabetes mellitus, type 2: (7) Tobacco use disorder: (8) Mitral regurgitation: (9) Coronary artery disease: Plan: coronary bypass surgery in 2013 with ALVARADO to LAD SVG to RCA SVG to obtuse marginal SVG to diagonal (10) Hypertension: (11) Carotid stenosis: (12) LBBB (left bundle branch block): Plan: The patient was unable to provide any history. I attempted to call her listed contact, a daughter, Perla Webb at the phone number provided in the chart. No answer and no voicemail available. Medically complex 60-year-old woman who is unknown to our practice, cardiac history obtained through review of outpatient cardiology note from [place] from 2019, no further information available from a cardiac standpoint. She does have a history of coronary artery disease status post CABG, intermittent left bundle branch block, diastolic dysfunction with normal LV systolic function, moderate mitral regurgitation and carotid stenosis for which carotid endarterectomy was recommended 3 years ago but the patient declined Patient underwent surgery without complication. Carotid Dopplers revealed 50 to 69% stenosis unilaterally, continue statin and aspirin Blood pressure currently well controlled Continue current cardiac medications. Given complex peripheral vascular disease history recommend restarting Plavix once bleeding risk is acceptable postoperatively. Admission and Anticipated Discharge Date Admission Date: March 16, 2021 Subjective Patient seen and examined, chart reviewed. Patient remains significantly confused. Physical Exam Physical Exam: General: Awake, alert but confused. No acute distress. HEENT: Normocephalic, atraumatic. Pupils equal, round and reactive to light and accommodation. Extraocular muscles are intact. Anicteric sclera. Moist mucous membranes. Neck: No JVD. No bruit. Cardiovascular: Regular. Positive S-4. Normal S-1 and S-2. No S-3. 3/6 holosystolic ejection murmur, left sternal border, mid-clavicular line with radiation to the axilla. No rubs. Pulmonary: Clear to auscultation bilaterally. No rales, rhonchi, or wheezing. Abdomen: Bowel sounds x 4, soft. No rebound, guarding or tenderness. No organomegaly. Extremities: No clubbing, cyanosis or edema. +2 pedal pulses bilaterally. Skin: Warm and dry. Results & Data ([facility]) Vital Signs (Past 12 Hours) Vital Signs Temp Pulse Pulse Resp BP Pulse Ox 03/19/21 11:05 37.1 C 82 20 99/64 L 90 03/19/21 08:15 37.2 C 78 20 109/73 90 03/19/21 00:19 82 03/18/21 23:24 37.3 C 71 20 112/73 93
--- NOTE | 2021-03-19 13:19 | Progress Notes ---
DATE OF SERVICE: 03/19/2021. SUBJECTIVE: A 60-year-old white female now postop day 2 from ORIF of a left bimalleolar ankle fractu re. She is doing okay. Having a moderate amount of ankle and leg pain. A little bit of buttock shay n as well. No other complaints. No chest pain or shortness of breath. OBJECTIVE: VITAL SIGNS: Temperature 37.1. Vital signs are stable. PHYSICAL EXAMINATION: GENERAL: Shows a pleasant middle-aged female. She is lying in bed. She looks reasonably comfortabl e. EXTREMITIES: Examination of the left leg reveals the splint to be in place. Dressing is clean, dry and intact. She can flex and extend her toes appropriately. She is neurologically intact. LABORATORY DATA: Hemoglobin 9.8. Hematocrit 31.4. Electrolytes are stable. ASSESSMENT AND PLAN: A 60-year-old female with multiple medical comorbidities, postoperative day 2 f rom open reduction and internal fixation of a left bimalleolar ankle fracture. She is doing okay. S he has got a lot of other medical issues that need to be managed. We need to make sure we keep all t he pressure off her heal to prevent heel ulcers. The splint just needs to be in place for 2 weeks an d I will see her back and take her stitches out. She is nonweightbearing on this leg for 6 weeks due to the Lisfranc injury. She is okay for discharge any time medically stable. Any orthopedic questi ons can be directed to me at [phone]. Once again, her status is nonweightbearing on this left leg for the next 6 weeks. Heel precautions a re important. Job ID: [id number]
--- NOTE | 2021-03-19 15:07 | Hospitalist Progress Note ---
Date of Service March 19, 2021 Assessment & Plan (1) Fall: (2) Bimalleolar fracture of left ankle: (3) Diabetes mellitus, type 2: (4) Anemia: (5) Leukocytosis: (6) Coronary artery disease: (7) Hypertension: (8) Chronic congestive heart failure with left ventricular diastolic dysfunction: (9) Psychotic disorder: (10) Anxiety: (11) Tobacco use disorder: (12) Toxic encephalopathy: Plan: 1. Left ankle fracture Management per Ortho. S/p ORIF 2/2 Cardiology consulted for clearance, risk stratification and optimization. Appreciate input 2. Acute on chronic diastolic CHF -continue 40mg IV lasix today and resume lasix 60mg PO tomorrow -appears euvolemic 3. Acute on chronic Anemia Most likely from acute blood loss with significant epistaxis recently (at least 5 times per day x 2 weeks) H&P noted, rectal exam in ER normal Hb 10 from 2011. Hb 7.9--> 7.2. Received 2 units packed RBC 2/2 with appropriate response -H/H remains stable 4. Acute hypoxic respiratory failure -wean oxygen as tolerated -continue saline nasal spray, petroleum jelly into nares to help with comfort and prevent epistaxis -ongoing hypoxia despite diuresis, likely atelectasis. Encourage OOB to chair, incentive spirometry 5. IDDM -agree with basal bolus regimen as currently ordered 6. CAD with prior CABG -continue metoprolol 50mg daily, aspirin, statin. Plavix was held on admission for surgery--> uncertain if she still needs to remain on DAPT--> will speak with daughter 7. Mood disorder continue Duloxetine, topiramate 50mg BID, seroquel reduced to 100mg QHS 8. DVT ppx -SQ heparin 9. Disposition -Evaluated by PT, recommending rehab Admission and Anticipated Discharge Date Admission Date: March 16, 2021 Subjective no events overnight. poor historian but does report that breathing feels improved Physical Exam Physical Exam: No acute distress. pleasant and comfortable. poor historian Neck: thick, supple Respiratory: diminished at bases, breathing comfortably on 2L NC, no wheezing/rhonchi Cardiovascular: regular rate and rhythm, no murmurs/rubs/gallops Gastrointestinal (Abdomen): soft, non tender Musculoskeletal: no edema Neurologic: awake, spontaneously moving extremities Psychiatric: affect normal, speech tangential, says same phrase repeatedly, poor historian Results & Data Results & Data ([facility]) Vital Signs (Past 12 Hours) Vital Signs Temp Pulse Resp BP Pulse Ox 03/19/21 11:05 37.1 C 82 20 99/64 L 90 03/19/21 08:15 37.2 C 78 20 109/73 90
[2021-03-19] MEDS: SENNA 8.6 MG TAB PO SCH (21:17)
[2021-03-19] MEDS: QUEtiapine FUMARATE 100 MG TABLET PO SCH (21:17)
[2021-03-19] MEDS: DONEPEZIL HCL 5 MG TAB PO SCH (21:18)
[2021-03-19] MEDS: GABAPENTIN 600 MG TAB PO SCH (21:18)
[2021-03-19] MEDS: ATORVASTATIN 40 MG TAB PO SCH (21:19)
[2021-03-20] MEDS: ACETAMINOPHEN 500 MG TAB PO SCH ×3 (06:08→21:45)
[2021-03-20] MEDS: DULoxetine HCL 30 MG CAP PO SCH (09:05)
[2021-03-20] MEDS: DULoxetine HCL 60 MG CAP PO SCH (09:05)
[2021-03-20] MEDS: DOCUSATE SODIUM 100 MG CAP PO SCH ×2 (09:05→20:37)
[2021-03-20] MEDS: ASPIRIN 81 MG ECTAB PO SCH (09:05)
[2021-03-20] MEDS: FUROSEMIDE 20 MG TAB PO SCH (09:08)
[2021-03-20] MEDS: GABAPENTIN 300 MG CAP PO SCH (09:09)
[2021-03-20] MEDS: HEPARIN SOD 5,000 UNIT/0.5 ML VIAL SQ SCH ×2 (09:10→20:42)
[2021-03-20] MEDS: INSULIN GLARGINE SOLOSTAR 100 UNITS/ML 3 ML PEN SC SCH (09:11)
[2021-03-20] MEDS: PANTOprazole 40 MG TAB PO SCH (09:12)
[2021-03-20] MEDS: lisinopril 10 MG TAB PO SCH (09:12)
[2021-03-20] MEDS: MULTIVITAMIN TAB PO SCH (09:12)
[2021-03-20] MEDS: POTASSIUM CHLORIDE CRTAB 20 MEQ TABCR PO SCH (09:12)
[2021-03-20] MEDS: METOPROLOL SUCC 50MG EXT REL TAB PO SCH (09:12)
[2021-03-20 09:13] LABS: Hemoglobin 10.1 g/dL (12.0-16.0); Mean Corpuscular Hemoglobin 27.5 pg (25-34); Mean Corpuscular Hgb Conc 30.6 g/dL (32-36); Mean Corpuscular Volume 89.9 fL (80-100); Mean Platelet Volume 11.4 fL (7.4-10.4); Platelet Count 251 K/uL (130-400); Red Blood Count 3.67 M/uL (4.2-5.4); White Blood Count 16.75 K/uL (4.8-10.8)
[2021-03-20] MEDS: INSULIN ASPART PER UNIT SC SCH ×4 (09:13→21:15)
[2021-03-20] MEDS: TOPIRAMATE 50 MG TAB PO SCH ×2 (09:13→20:41)
--- NOTE | 2021-03-20 09:20 | Hospitalist Progress Note ---
Date of Service March 20, 2021 Assessment & Plan (1) Fall: (2) Bimalleolar fracture of left ankle: (3) Diabetes mellitus, type 2: (4) Anemia: (5) Leukocytosis: (6) Coronary artery disease: (7) Hypertension: (8) Chronic congestive heart failure with left ventricular diastolic dysfunction: (9) Psychotic disorder: (10) Anxiety: (11) Tobacco use disorder: (12) Toxic encephalopathy: Plan: 1. Left ankle fracture Management per Ortho. S/p ORIF 2/ Cardiology consulted for clearance, risk stratification and optimization. Appreciate input continue with pain control: Scheduled tylenol 1000mg Q 8, Gabapentin. PRN: Tramadol, Morphine 4mg IV and Dilaudid 0.5mg IV. Pain well controlled currently 2. Acute on chronic diastolic CHF -s/p 40mg IV lasix today -resume lasix 60mg PO today -appears euvolemic 3. Acute on chronic Anemia Most likely from acute blood loss with significant epistaxis recently (at least 5 times per day x 2 weeks) H&P noted, rectal exam in ER normal Hb 10 from 2011. Hb 7.9--> 7.2. Received 2 units packed RBC 2/2 with appropriate response -H/H remains stable 4. Acute hypoxic respiratory failure -wean oxygen as tolerated -continue saline nasal spray, petroleum jelly into nares to help with comfort and prevent epistaxis -ongoing hypoxia despite diuresis, likely atelectasis. Encourage OOB to chair, incentive spirometry 5. Leukocytosis -Improved, not on antibiotics -Procalcitonin neg x 2, continue to monitor off antibiotics 6. IDDM -agree with basal bolus regimen as currently ordered 7. CAD with prior CABG -continue metoprolol 50mg daily, aspirin, statin. Plavix was held on admission for surgery--> uncertain if she still needs to remain on DAPT--> will speak with daughter 8. Mood disorder continue Duloxetine, topiramate 50mg BID, seroquel reduced to 100mg QHS 9. DVT ppx -SQ heparin 10. Disposition -Evaluated by PT, recommending rehab Admission and Anticipated Discharge Date Admission Date: March 16, 2021 Subjective I feel much better today than yesterday Left foot still sore but pain controlled with medications Ate most of breakfast Overnight mildly confused Remains afebrile Physical Exam Physical Exam: Sitting in bed, just finished breakfast, appears comfortable, answering questions more appropriately Respiratory: breathing comfortably, no wheezing/rhonchi/rales Cardiovascular: regular rate and rhythm, no murmurs/rubs/gallops Gastrointestinal (Abdomen): soft, non tender Musculoskeletal: Left foot in dressing, left toes are warm and perfused. Right leg with no edema Psychiatric: affect normal, appears less confused and less sedated, answering questions appropriately this morning Results & Data Results & Data ([facility]) Vital Signs (Past 12 Hours) Vital Signs Temp Pulse Pulse Resp BP BP Pulse Ox 03/20/21 08:08 36.6 C 78 18 103/65 95 03/20/21 07:50 83 03/20/21 04:00 36.9 C 89 18 120/76 92 03/20/21 03:12 100 H 03/19/21 23:04 37.4 C 100 H 20 126/78 92 Laboratory Results Short CBC 03/20/21 Range/Units 08:20 WBC 16.75 H (4.8-10.8) K/uL Hgb 10.1 L (12.0-16.0) g/dL Hct 33.0 L (37-47) % Plt Count 251 (130-400) K/uL BMP pending
--- NOTE | 2021-03-20 09:20 | Progress Notes ---
DATE OF SERVICE: 03/20/2021. SUBJECTIVE: A 60-year-old female with multiple medical comorbidities, now postop day 3 from ORIF of a left bimalleolar ankle fracture with underlying Lisfranc injury as well, treated conservatively. S he seems to be doing okay. Pain seems to be a little bit better today. She is describing just entir e left leg pain. PHYSICAL EXAMINATION: GENERAL: Shows a pleasant middle-aged female. She is sitting up and eating her breakfast this morni ng. EXTREMITIES: Examination of the left leg reveals the splint to be clean, dry and intact. Her leg is well aligned. She can dorsiflex and plantarflex her toes appropriately. She is neurologically inta ct. ASSESSMENT: A 60-year-old female with multiple medical comorbidities, now postop day 3 from ORIF of left bimalleolar ankle fracture, Lisfranc injury all related to a fall. Orthopedically, she appears pretty stable. She has got a lot of aches and pains, but no other underlying obvious problems. PLAN: At this point, she can progress with PT and OT. She is going to be strictly nonweightbearing on this left leg for 6 weeks due to the ankle fracture and this associated Lisfranc injury. I need t o see her back 2-3 weeks out from the surgery date for followup. She is orthopedically okay for disc harge any time medically stable. As far as anticoagulation, I will leave that up to the medicine ser vice. Any orthopedic questions can be directed to me at [phone]. Job ID: [id number]
[2021-03-20] MEDS: traMADol HCL 50 MG TABLET PO PRN ×3 (09:22→21:45)
[2021-03-20 09:54] LABS: BUN Creatinine Ratio 23.5 (10-20); Calcium 8.7 mg/dl (8.5-10.1); Creatinine Clr Calc Pharmacy 58.2 ml/min; Est GFR (African American) 71.7 ml/min; Est GFR (Non-African American) 61.8 ml/min; Magnesium 2.3 mg/dl (1.7-2.4); Potassium 3.6 mmol/L (3.5-5.1)
[2021-03-20] MEDS: HYDROmorphone INJ 0.5 MG/0.5 ML SYR IV PRN ×3 (15:12→23:50)
[2021-03-20] MEDS: ATORVASTATIN 40 MG TAB PO SCH (20:36)
[2021-03-20] MEDS: GABAPENTIN 600 MG TAB PO SCH (20:37)
[2021-03-20] MEDS: QUEtiapine FUMARATE 100 MG TABLET PO SCH (20:41)
[2021-03-20] MEDS: SENNA 8.6 MG TAB PO SCH (20:41)
[2021-03-20] MEDS: DONEPEZIL HCL 5 MG TAB PO SCH (20:41)
[2021-03-21] MEDS: MoRPHine SULFATE 4 MG/ML 1 ML CARP\\VIAL IV PRN (01:27)
[2021-03-21] MEDS: ACETAMINOPHEN 500 MG TAB PO SCH ×3 (05:39→21:15)
[2021-03-21] MEDS: FUROSEMIDE 20 MG TAB PO SCH (07:48)
[2021-03-21] MEDS: MAGNESIUM OXIDE 400 MG TAB PO SCH (07:49)
[2021-03-21] MEDS: POTASSIUM CHLORIDE CRTAB 20 MEQ TABCR PO SCH (07:49)
[2021-03-21] MEDS: TOPIRAMATE 50 MG TAB PO SCH ×2 (07:49→20:16)
[2021-03-21] MEDS: DOCUSATE SODIUM 100 MG CAP PO SCH ×2 (07:49→20:14)
[2021-03-21] MEDS: HEPARIN SOD 5,000 UNIT/0.5 ML VIAL SQ SCH ×3 (07:49→21:15)
[2021-03-21] MEDS: DULoxetine HCL 30 MG CAP PO SCH (07:50)
[2021-03-21] MEDS: METOPROLOL SUCC 50MG EXT REL TAB PO SCH (07:50)
[2021-03-21] MEDS: lisinopril 10 MG TAB PO SCH (07:50)
[2021-03-21] MEDS: GABAPENTIN 300 MG CAP PO SCH (07:50)
[2021-03-21] MEDS: MULTIVITAMIN TAB PO SCH (07:50)
[2021-03-21] MEDS: PANTOprazole 40 MG TAB PO SCH (07:50)
[2021-03-21] MEDS: DULoxetine HCL 60 MG CAP PO SCH (07:50)
[2021-03-21] MEDS: ASPIRIN 81 MG ECTAB PO SCH (07:51)
[2021-03-21] MEDS: INSULIN GLARGINE SOLOSTAR 100 UNITS/ML 3 ML PEN SC SCH (07:54)
[2021-03-21] MEDS: INSULIN ASPART PER UNIT SC SCH ×4 (07:58→21:09)
[2021-03-21] MEDS ORDERED: INSULIN GLARGINE SOLOSTAR 100 UNITS/ML 3 ML PEN SC SCH (09:00)
[2021-03-21] MEDS ORDERED: INSULIN GLARGINE SOLOSTAR 100 UNITS/ML 3 ML PEN SC ONE (09:00)
[2021-03-21] MEDS ORDERED: HYDROmorphone INJ 0.5 MG/0.5 ML SYR IV PRN (09:32)
[2021-03-21] MEDS ORDERED: oxyCODONE HCL IR 5 MG TAB (IMMEDIATE RELEASE) PO PRN (09:32)
--- NOTE | 2021-03-21 09:41 | Hospitalist Progress Note ---
Date of Service March 21, 2021 Assessment & Plan (1) Fall: (2) Bimalleolar fracture of left ankle: (3) Diabetes mellitus, type 2: (4) Anemia: (5) Leukocytosis: (6) Coronary artery disease: (7) Hypertension: (8) Chronic congestive heart failure with left ventricular diastolic dysfunction: (9) Psychotic disorder: (10) Anxiety: (11) Tobacco use disorder: (12) Toxic encephalopathy: Plan: 1. Left ankle fracture Management per Ortho. S/p ORIF 2/2 Cardiology consulted for clearance, risk stratification and optimization. Appreciate input Reports Inadequate pain control currently. Will continue scheduled tylenol 1000mg Q 8, increase Gabapentin to 800mg TID. PRN:discontinue tramadol, IV morphine. Start Oxycodone 5mg Q 4PRN for moderate pain, 10mg Q4PRN for severe pain. Keep dilaudid 0.5mg IV Q 8 PRN for pain not relieved with oxycodone 2. Acute on chronic diastolic CHF -Euvolemic -continue lasix 60mg PO 3. Acute on chronic Anemia Most likely from acute blood loss with significant epistaxis recently (at least 5 times per day x 2 weeks) H&P noted, rectal exam in ER normal Received 2 units packed RBC 2/2 with appropriate response -H/H remains stable 4. Acute hypoxic respiratory failure -continue saline nasal spray, petroleum jelly into nares to help with comfort and prevent epistaxis -ongoing hypoxia despite diuresis, likely atelectasis. Encourage OOB to chair, incentive spirometry. Patient is 98% on 3L NC--> She does not appear to need oxygen any longer. Nursing instructed to wean oxygen. Incentive spirometry 5. Leukocytosis -Improved, not on antibiotics -Procalcitonin neg x 2, continue to monitor off antibiotics 6. IDDM -agree with basal bolus regimen as currently ordered 7. CAD with prior CABG -continue metoprolol 50mg daily, aspirin, statin. Plavix was held on admission for surgery--> uncertain if she still needs to remain on DAPT--> will speak with daughter 8. Mood disorder continue Duloxetine, topiramate 50mg BID, seroquel reduced to 100mg QHS 9. DVT ppx -SQ heparin 10. Disposition -Evaluated by PT, recommending rehab Admission and Anticipated Discharge Date Admission Date: March 16, 2021 Subjective Tolerating diet. Reports stools are hard. Reports uncontrolled pain- 10/10 left leg currently Physical Exam Physical Exam: Appears comfortable. Eating breakfast. Respiratory: Clear bilaterally no wheezing/rhonchi/rales Cardiovascular: Tachycardic but regular, no murmurs/rubs/gallops Gastrointestinal (Abdomen): soft, non tender Musculoskeletal: No edema. Left ankle dressing is clean/dry/intact, left toes are warm and perfused Neurologic: awake, spontaneously moving extremities Psychiatric: affect normal Results & Data Results & Data ([facility]) Vital Signs (Past 12 Hours) Vital Signs Temp Pulse Pulse Resp BP BP Pulse Ox 03/21/21 07:15 37.0 C 100 H 134/84 98 03/21/21 03:02 36.7 C 93 H 18 146/83 H 97 03/20/21 23:14 101 H 03/20/21 22:34 36.7 C 104 H 20 153/78 H 99
--- NOTE | 2021-03-21 10:16 | Cardiology Progress Note ---
Date of Service March 21, 2021 Assessment & Plan (1) Preop cardiovascular exam: (2) (HFpEF) heart failure with preserved ejection fraction: (3) Bimalleolar fracture of left ankle: (4) Fall: (5) Psychotic disorder: (6) Diabetes mellitus, type 2: (7) Tobacco use disorder: (8) Mitral regurgitation: (9) Coronary artery disease: Plan: coronary bypass surgery in 2013 with ALVARADO to LAD SVG to RCA SVG to obtuse marginal SVG to diagonal (10) Hypertension: (11) Carotid stenosis: (12) LBBB (left bundle branch block): Plan: The patient did well through surgery. She is hemodynamically stable. I believe she can be discharged home per the orthopedic and medicine services. The patient can follow-up with cardiology in [place]. Admission and Anticipated Discharge Date Admission Date: March 16, 2021 Subjective The patient did well with her surgery. She has no complaints today. Review of Systems Review of Systems: Review of Systems: See HPI for pertinent positives. All other 10 point review of systems are negative. Physical Exam Physical Exam: General: no acute distress and stated age Head: normocephalic, no masses, lesions, tenderness or abnormalities Eyes: conjunctiva are pink and non-injected, sclera clear Neck: supple, no adenopathy, no bruits, normal jugular venous pulse, no hepatojugular reflux Chest: normal shape and normal respiratory effort Lungs: clear to auscultation and percussion Cardiac Exam: - regular rate & rhythm, no murmurs gallops or rubs - normal S1, normal S2 Pulses: 2(+) throughout Abdomen: abdomen soft, non-tender, no abnormal masses and no hepatosplenomegaly Musculoskeletal: no gait disturbance, no joint inflammation, no deforming arthritis Extremities: no edema and no cyanosis Neuro: grossly normal exam Results & Data ([facility]) Vital Signs (Past 12 Hours) Vital Signs Temp Pulse Pulse Resp BP BP Pulse Ox 03/21/21 07:15 37.0 C 100 H 134/84 98 03/21/21 03:02 36.7 C 93 H 18 146/83 H 97 03/20/21 23:14 101 H 03/20/21 22:34 36.7 C 104 H 20 153/78 H 99 Laboratory Results Laboratory Results - last 24 hr 03/20/21 03/20/21 03/20/21 11:25 16:28 19:56 POC Glucose 227 H 182 H 117 H 03/21/21 07:39 POC Glucose 181 H Medications Administered Current Inpatient Medications Acetaminophen (Acetaminophen 500 Mg Tab) 1,000 mg PO Q8H SAMANTHA Stop: 04/15/21 21:59 Last Admin: 03/21/21 05:39 Dose: 1,000 mg Documented by: Al Hydrox/Mg Hydrox/Simethicone (Aluminum/Magnesium Susp 30 Ml Udc) 15 ml PO Q4H PRN PRN Reason: Heartburn Stop: 04/16/21 16:24 Aspirin (Aspirin 81 Mg Ectab) 81 mg PO DAILY SAMANTHA Stop: 04/16/21 08:59 Last Admin: 03/21/21 07:51 Dose: 81 mg Documented by: Atorvastatin Calcium (Atorvastatin 40 Mg Tab) 80 mg PO HS SAMANTHA Stop: 04/16/21 20:59 Last Admin: 03/20/21 20:36 Dose: 80 mg Documented by: Bisacodyl (Bisacodyl 10 Mg Supp) 10 mg MI DAILY PRN PRN Reason: Constipation Stop: 04/16/21 16:24 Dextrose (Dextrose 50% 50 Ml Syringe) 25 - 50 ml IV UD PRN; Protocol PRN Reason: Hypoglycemia Protocol Stop: 04/15/21 19:11 Docusate Sodium (Docusate Sodium 100 Mg Cap) 100 mg PO BID SAMANTHA Stop: 04/16/21 20:59 Last Admin: 03/21/21 07:49 Dose: 100 mg Documented by: Donepezil HCl (Donepezil Hcl 5 Mg Tab) 5 mg PO HS SAMANTHA Stop: 04/16/21 20:59 Last Admin: 03/20/21 20:41 Dose: 5 mg Documented by: Duloxetine HCl (Duloxetine Hcl 30 Mg Cap) 30 mg PO QAM SAMANTHA Stop: 04/16/21 08:59 Last Admin: 03/21/21 07:50 Dose: 30 mg Documented by: Duloxetine HCl (Duloxetine Hcl 60 Mg Cap) 60 mg PO QAM SAMANTHA Stop: 04/16/21 08:59 Last Admin: 03/21/21 07:50 Dose: 60 mg Documented by: Furosemide (Furosemide 20 Mg Tab) 60 mg PO QAM SAMANTHA Stop: 04/19/21 08:59 Last Admin: 03/21/21 07:48 Dose: 60 mg Documented by: Gabapentin (Gabapentin 600 Mg Tab) 600 mg PO TID [facility] Stop: 04/20/21 13:59 Glucagon (Glucagon For Inj 1 Mg Vial) 1 mg SQ UD PRN; Protocol PRN Reason: Hypoglycemia Protocol Stop: 04/15/21 19:11 Glucose (Glucose 10 Tabs/Tube) 4 - 8 tabs PO UD PRN; Protocol PRN Reason: Hypoglycemia Protocol Stop: 04/15/21 19:11 Glucose (Glucose 40% Gel 15 Gm Tube) 15 - 30 gm PO UD PRN; Protocol PRN Reason: Hypoglycemia Protocol Stop: 04/15/21 19:11 Heparin Sodium (Porcine) (Heparin Sod 5,000 Unit/0.5 Ml Vial) 5,000 units SQ Q8 [facility] Stop: 04/20/21 13:59 Hydromorphone HCl (Hydromorphone Inj 0.5 Mg/0.5 Ml Syr) 0.5 mg IV Q8 PRN PRN Reason: Pain or Pre PT Stop: 03/31/21 16:24 Insulin Aspart (Insulin Aspart Per Unit) 0 units SC [facility]; Protocol Stop: 04/16/21 20:59 Last Admin: 03/21/21 07:58 Dose: 12 units Documented by: Lisinopril (Lisinopril 10 Mg Tab) 10 mg PO DAILY [facility] Stop: 04/17/21 08:59 Last Admin: 03/21/21 07:50 Dose: 10 mg Documented by: Magnesium Hydroxide (Magnesium Hydroxide Susp 30 Ml Udc) 30 ml PO Q6H PRN PRN Reason: Constipation Stop: 04/16/21 16:24 Magnesium Oxide (Magnesium Oxide 400 Mg Tab) 400 mg PO QAM [facility] Stop: 04/20/21 08:59 Last Admin: 03/21/21 07:49 Dose: 400 mg Documented by: Metoclopramide HCl (Metoclopramide Hcl Inj 5 Mg/Ml 2 Ml Vial) 10 mg IV Q6H PRN PRN Reason: Nausea And Vomiting Stop: 04/16/21 16:24 Metoprolol Succinate (Metoprolol Succ 50mg Ext Rel Tab) 50 mg PO DAILY [facility] Stop: 04/16/21 08:59 Last Admin: 03/21/21 07:50 Dose: 50 mg Documented by: Miscellaneous (Carbohydrates For Hypoglycemia ) 15 - 30 gm PO UD PRN PRN Reason: Hypoglycemia Protocol Stop: 04/15/21 19:11 Miscellaneous Information (Pharmacy Glycemic Mgmt Consult) 1 ea N/A UD PRN; Protocol PRN Reason: Consult Stop: 04/15/21 19:11 Multivitamins (Multivitamin Tab) 1 tab PO QAM [facility] Stop: 04/17/21 08:59 Last Admin: 03/21/21 07:50 Dose: 1 tab Documented by: Naloxone HCl (Naloxone Hcl 0.4 Mg/1 Ml Vial/Carp) 0.1 mg IV Q5M PRN PRN Reason: Oversedation/Resp Depression Stop: 04/16/21 16:24 Ondansetron HCl (Ondansetron Inj 2 Mg/Ml 2 Ml Vial) 4 mg IV Q6H PRN PRN Reason: Nausea And Vomiting Stop: 04/16/21 16:24 Oxycodone HCl (Oxycodone Hcl Ir 5 Mg Tab (Immediate Release)) 5 mg PO Q4 PRN PRN Reason: Moderate Pain Stop: 04/04/21 09:31 Oxycodone HCl (Oxycodone Hcl Ir 5 Mg Tab (Immediate Release)) 10 mg PO Q4 PRN PRN Reason: Severe Pain Stop: 04/04/21 09:31 Pantoprazole Sodium (Pantoprazole 40 Mg Tab) 40 mg PO DAILY [facility]; Protocol Stop: 04/16/21 08:59 Last Admin: 03/21/21 07:50 Dose: 40 mg Documented by: Polyethylene Glycol (Polyethylene (Miralax) 17 Gm Pack) 17 gm PO DAILY [facility] Stop: 04/21/21 08:59 Potassium Chloride (Potassium Chloride Crtab 20 Meq Tabcr) 40 meq PO QAM [facility] Stop: 04/18/21 08:59 Last Admin: 03/21/21 07:49 Dose: 40 meq Documented by: Quetiapine Fumarate (Quetiapine Fumarate 100 Mg Tablet) 100 mg PO HS [facility] Stop: 04/16/21 20:59 Last Admin: 03/20/21 20:41 Dose: 100 mg Documented by: Sennosides (Senna 8.6 Mg Tab) 17.2 mg PO HS [facility] Stop: 04/16/21 20:59 Last Admin: 03/20/21 20:41 Dose: 17.2 mg Documented by: Topiramate (Topiramate 50 Mg Tab) 50 mg PO BID [facility] Stop: 04/16/21 20:59 Last Admin: 03/21/21 07:49 Dose: 50 mg Documented by:
--- NOTE | 2021-03-21 10:35 | Progress Notes ---
DATE OF SERVICE: 03/21/2021. SUBJECTIVE: A 60-year-old female now postoperative day 4 from ORIF of left bimalleolar ankle fractur e with underlying Lisfranc injury. She continues to have some moderate amount of ankle and foot pain . Pain seems to be a little bit better today. Still having just kind of diffuse leg pain. No other complaints. OBJECTIVE: VITAL SIGNS: Temperature 37.0. Vital signs are stable. EXTREMITIES: Examination of the left leg reveals the splint to be in place. She can flex and extend her toes appropriately. Some moderate swelling. She is neurologically intact. ASSESSMENT: A 60-year-old female with multiple medical comorbidities, now postop day 4 from ORIF of left bimalleolar ankle fracture with underlying Lisfranc injury. She seems to be doing okay. Pain s eems to be a little bit better. PLAN: At this point, she is strictly nonweightbearing for 6 weeks on this left leg. We will leave t he dressing in place for 2 weeks. I need to see her back two to three weeks out from surgery date. She is orthopedically okay for discharge. Any orthopedic questions can be directed to me at [phone]. Job ID: [id number]
[2021-03-21] MEDS: MAGNESIUM HYDROXIDE SUSP 30 ML UDC PO PRN (10:58)
[2021-03-21] MEDS: GABAPENTIN 600 MG TAB PO SCH ×2 (12:09→20:15)
--- NOTE | 2021-03-21 13:17 | Pharmacy Report ---
Pharmacy Glycemic Short Note 2 - Date of Service March 21, 2021 - Glycemic Short BSG Results (Last 24 hours): 03/20/21 03/20/21 03/21/21 16:28 19:56 07:39 POC Glucose 182 H 117 H 181 H 03/21/21 11:25 POC Glucose 138 H OUTPATIENT ANTIDIABETIC REGIMEN: * Basaglar 46 units SC AM * Novolog SSI (prescription last filled 09/2020) * HbA1c: 8.3% (03/17/21) ASSESSMENT: 03/21 * BSGs yesterday of 136, 227, 182, and 117 mg/dL, fasting BSG of 181 mg/dL this morning * Received 62 units of insulin (35 units of Lantus and 27 units of prandial/correctional bolus) * Will increase Lantus this morning and continue tightened Novolog parameters from yesterday 03/18 * Ms Welch was hyperglycemic post-op yesterday. BSGs have been reasonable thus far today. * Lantus transitioned back to QAM dosing this morning, for ease of discharge planning. * Novolog parameters were tightened last evening and appear to be appropriate. No further changes at this time. 03/17 * 60 yo F admitted yesterday secondary to mechanical fall with ankle fracture. Pharmacy has been consulted to assist with inpatient glycemic management. Patient is NPO for the OR later this afternoon. * BSGs last evening were elevated at 246-211 mg/dL. Patient received 14 units of Lantus at bedtime and 10 units of Novolog between dinner and bedtime. * Fasting BSG was 134 mg/dL this AM. Given NPO status decided to hold Lantus this morning. Will monitor perioperative steroid use and give NPH if necessary. Will give Lantus postoperatively once a diet is order. * Update: Lantus 14 units given prior to OR given elevated BSG around noon. * Novolog was initiated based on weight stress of 2-3. Continue for now. Targeting goal range of 110 - 140 mg/dL to promote wound healing and prevent postoperative infections. PLAN FOR INPATIENT GLYCEMIC CONTROL: * Basal insulin * Lantus 40 units SC daily * Bolus insulin * NovoLog per scale ACHS or Q6hrs while NPO * Goal Range: Low 110 mg/dL - High 140 mg/dL * Correction Factor: 20 mg/dL/unit * Nutritional / Prandial insulin per carb ratio of 1 unit per 5 grams CHO consumed PLAN FOR DISCHARGE: * A1c: 8.3% * This indicates suboptimal glycemic control in a 60yo patient. Goal A1c likely closer to 7.0%. * Suspect that pt may resume home regimen on discharge, as long as no contraindications are present. * Recommend prompt f/u with outpt provider after discharge to work toward optimizing A1c.
[2021-03-21] MEDS: ATORVASTATIN 40 MG TAB PO SCH (20:14)
[2021-03-21] MEDS: DONEPEZIL HCL 5 MG TAB PO SCH (20:15)
[2021-03-21] MEDS: QUEtiapine FUMARATE 100 MG TABLET PO SCH (20:16)
[2021-03-21] MEDS: SENNA 8.6 MG TAB PO SCH (20:16)
[2021-03-21] MEDS: oxyCODONE HCL IR 5 MG TAB (IMMEDIATE RELEASE) PO PRN (20:23)
[2021-03-22] MEDS: oxyCODONE HCL IR 5 MG TAB (IMMEDIATE RELEASE) PO PRN ×5 (01:01→19:12)
[2021-03-22] MEDS: ACETAMINOPHEN 500 MG TAB PO SCH ×3 (05:14→22:04)
[2021-03-22] MEDS: HEPARIN SOD 5,000 UNIT/0.5 ML VIAL SQ SCH ×3 (05:15→22:04)
[2021-03-22 07:39] LABS: Hematocrit (blood only) 30.6 % (37-47); Hemoglobin 9.5 g/dL (12.0-16.0); Mean Corpuscular Hemoglobin 27.6 pg (25-34); Mean Platelet Volume 10.6 fL (7.4-10.4); Platelet Count 298 K/uL (130-400); RDW Coefficient of Variation 16.2 % (11.5-14.5); RDW Standard Deviation 52.4 fL (36.4-46.3); Red Blood Count 3.44 M/uL (4.2-5.4); White Blood Count 10.94 K/uL (4.8-10.8)
[2021-03-22 08:04] LABS: ALC (manual) 1.91 K/uL (1.2-3.4); ANC (manual) 6.73 K/uL (1.4-6.5); Eosinophils # (manual) 0.38 K/uL (0-0.5); Eosinophils % (manual) 3.5 %; Lymphocytes # (manual) 1.91 K/uL (1.2-3.4); Lymphocytes % (manual) 17.5 %; Monocytes # (manual) 1.91 K/uL (0.11-0.59); Monocytes % (manual) 17.5 %; Neutrophils # (manual) 6.73 K/uL (1.4-6.5); Neutrophils % (manual) 61.5 %; Rouleaux 1+
[2021-03-22 08:05] LABS: BUN Creatinine Ratio 23.2 (10-20); Calcium 8.9 mg/dl (8.5-10.1); Creatinine Clr Calc Pharmacy 69.5 ml/min; Est GFR (African American) 88.9 ml/min; Est GFR (Non-African American) 76.7 ml/min; Magnesium 1.9 mg/dl (1.7-2.4); Potassium 3.7 mmol/L (3.5-5.1)
[2021-03-22] MEDS: POLYETHYLENE (MIRALAX) 17 GM PACK PO SCH (09:02)
[2021-03-22] MEDS: INSULIN GLARGINE SOLOSTAR 100 UNITS/ML 3 ML PEN SC SCH (09:03)
[2021-03-22] MEDS: INSULIN ASPART PER UNIT SC SCH ×4 (09:04→22:03)
[2021-03-22] MEDS: DULoxetine HCL 60 MG CAP PO SCH (09:05)
[2021-03-22] MEDS: DULoxetine HCL 30 MG CAP PO SCH (09:05)
[2021-03-22] MEDS: FUROSEMIDE 20 MG TAB PO SCH (09:05)
[2021-03-22] MEDS: MULTIVITAMIN TAB PO SCH (09:05)
[2021-03-22] MEDS: ASPIRIN 81 MG ECTAB PO SCH (09:05)
[2021-03-22] MEDS: PANTOprazole 40 MG TAB PO SCH (09:06)
[2021-03-22] MEDS: lisinopril 10 MG TAB PO SCH (09:06)
[2021-03-22] MEDS: METOPROLOL SUCC 50MG EXT REL TAB PO SCH (09:06)
[2021-03-22] MEDS: TOPIRAMATE 50 MG TAB PO SCH ×2 (09:06→20:23)
[2021-03-22] MEDS: POTASSIUM CHLORIDE CRTAB 20 MEQ TABCR PO SCH (09:06)
[2021-03-22] MEDS: GABAPENTIN 600 MG TAB PO SCH ×3 (09:06→20:22)
[2021-03-22] MEDS: MAGNESIUM OXIDE 400 MG TAB PO SCH (09:07)
[2021-03-22] MEDS: DOCUSATE SODIUM 100 MG CAP PO SCH ×2 (09:07→20:26)
--- NOTE | 2021-03-22 10:04 | Cardiology Progress Note ---
Date of Service March 22, 2021 Assessment & Plan (1) Preop cardiovascular exam: (2) (HFpEF) heart failure with preserved ejection fraction: (3) Bimalleolar fracture of left ankle: (4) Fall: (5) Psychotic disorder: (6) Diabetes mellitus, type 2: (7) Tobacco use disorder: (8) Mitral regurgitation: (9) Coronary artery disease: (10) Hypertension: (11) Carotid stenosis: (12) LBBB (left bundle branch block): Plan: The patient from a cardiac standpoint is stable. I think she can be discharged per the hospitalist service. 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 Cardiology signed off the case. Admission and Anticipated Discharge Date Admission Date: March 16, 2021 Subjective The patient just got some pain meds and is resting comfortably. Review of Systems Review of Systems: Review of Systems: See HPI for pertinent positives. All other 10 point review of systems are negative. Physical Exam Physical Exam: General: no acute distress and stated age Head: normocephalic, no masses, lesions, tenderness or abnormalities Eyes: conjunctiva are pink and non-injected, sclera clear Neck: supple, no adenopathy, no bruits, normal jugular venous pulse, no hepatojugular reflux Chest: normal shape and normal respiratory effort Lungs: clear to auscultation and percussion Cardiac Exam: - regular rate & rhythm, no murmurs gallops or rubs - normal S1, normal S2 Pulses: 2(+) throughout Abdomen: abdomen soft, non-tender, no abnormal masses and no hepatosplenomegaly Musculoskeletal: no gait disturbance, no joint inflammation, no deforming arthritis Extremities: Left ankle is in a cast. Neuro: grossly normal exam Results & Data ([facility]) Vital Signs (Past 12 Hours) Vital Signs Temp Pulse Pulse Resp BP Pulse Ox Pulse Ox 03/22/21 08:26 36.5 C 75 12 128/74 90 03/22/21 05:48 96 03/21/21 22:19 37.2 C 106 H 18 153/82 H 96 Laboratory Results Laboratory Results - last 24 hr 03/21/21 03/21/21 03/21/21 11:25 16:51 20:32 WBC RBC Hgb Hct MCV MCH MCHC RDW Std Deviation RDW Coeff of Fabio Plt Count MPV Neutrophils % (Manual) Lymphocytes % (Manual) Monocytes % (Manual) Eosinophils % (Manual) Neutrophils # (Manual) Total Absolute Neuts Lymphocytes # (Manual) Total Abs Lymphocytes Monocytes # (Manual) Eosinophils # (Manual) Rouleaux Sodium Potassium Chloride Carbon Dioxide Anion Gap BUN Creatinine Est Cr Clr Drug Dosing Est GFR ( Amer) Est GFR (Non-Af Amer) BUN/Creatinine Ratio Glucose POC Glucose 138 H 91 128 H Calcium Magnesium 03/22/21 03/22/21 03/22/21 06:53 06:53 07:58 WBC 10.94 H RBC 3.44 L Hgb 9.5 L Hct 30.6 L MCV 89.0 MCH 27.6 MCHC 31.0 L RDW Std Deviation 52.4 H RDW Coeff of Fabio 16.2 H Plt Count 298 MPV 10.6 H Neutrophils % (Manual) 61.5 Lymphocytes % (Manual) 17.5 Monocytes % (Manual) 17.5 Eosinophils % (Manual) 3.5 Neutrophils # (Manual) 6.73 H Total Absolute Neuts 6.73 H Lymphocytes # (Manual) 1.91 Total Abs Lymphocytes 1.91 Monocytes # (Manual) 1.91 H Eosinophils # (Manual) 0.38 Rouleaux 1+ Sodium 140 Potassium 3.7 Chloride 107 Carbon Dioxide 25 Anion Gap 8 BUN 19 Creatinine 0.82 Est Cr Clr Drug Dosing 69.5 Est GFR ( Amer) 88.9 Est GFR (Non-Af Amer) 76.7 BUN/Creatinine Ratio 23.2 H Glucose 105 H POC Glucose 115 H Calcium 8.9 Magnesium 1.9 Medications Administered Current Inpatient Medications Acetaminophen (Acetaminophen 500 Mg Tab) 1,000 mg PO Q8H SAMANTHA Stop: 04/15/21 21:59 Last Admin: 03/22/21 05:14 Dose: 1,000 mg Documented by: Al Hydrox/Mg Hydrox/Simethicone (Aluminum/Magnesium Susp 30 Ml Udc) 15 ml PO Q4H PRN PRN Reason: Heartburn Stop: 04/16/21 16:24 Aspirin (Aspirin 81 Mg Ectab) 81 mg PO DAILY SAMANTHA Stop: 04/16/21 08:59 Last Admin: 03/22/21 09:05 Dose: 81 mg Documented by: Atorvastatin Calcium (Atorvastatin 40 Mg Tab) 80 mg PO HS [facility] Stop: 04/16/21 20:59 Last Admin: 03/21/21 20:14 Dose: 80 mg Documented by: Bisacodyl (Bisacodyl 10 Mg Supp) 10 mg [place] DAILY PRN PRN Reason: Constipation Stop: 04/16/21 16:24 Dextrose (Dextrose 50% 50 Ml Syringe) 25 - 50 ml IV UD PRN; Protocol PRN Reason: Hypoglycemia Protocol Stop: 04/15/21 19:11 Docusate Sodium (Docusate Sodium 100 Mg Cap) 100 mg PO BID [facility]ANTHA Stop: 04/16/21 20:59 Last Admin: 03/22/21 09:07 Dose: 100 mg Documented by: Donepezil HCl (Donepezil Hcl 5 Mg Tab) 5 mg PO HS [facility] Stop: 04/16/21 20:59 Last Admin: 03/21/21 20:15 Dose: 5 mg Documented by: Duloxetine HCl (Duloxetine Hcl 30 Mg Cap) 30 mg PO QAM [facility] Stop: 04/16/21 08:59 Last Admin: 03/22/21 09:05 Dose: 30 mg Documented by: Duloxetine HCl (Duloxetine Hcl 60 Mg Cap) 60 mg PO QAM [facility] Stop: 04/16/21 08:59 Last Admin: 03/22/21 09:05 Dose: 60 mg Documented by: Furosemide (Furosemide 20 Mg Tab) 60 mg PO QAM [facility] Stop: 04/19/21 08:59 Last Admin: 03/22/21 09:05 Dose: 60 mg Documented by: Gabapentin (Gabapentin 600 Mg Tab) 600 mg PO TID [facility] Stop: 04/20/21 13:59 Last Admin: 03/22/21 09:06 Dose: 600 mg Documented by: Glucagon (Glucagon For Inj 1 Mg Vial) 1 mg SQ UD PRN; Protocol PRN Reason: Hypoglycemia Protocol Stop: 04/15/21 19:11 Glucose (Glucose 10 Tabs/Tube) 4 - 8 tabs PO UD PRN; Protocol PRN Reason: Hypoglycemia Protocol Stop: 04/15/21 19:11 Glucose (Glucose 40% Gel 15 Gm Tube) 15 - 30 gm PO UD PRN; Protocol PRN Reason: Hypoglycemia Protocol Stop: 04/15/21 19:11 Heparin Sodium (Porcine) (Heparin Sod 5,000 Unit/0.5 Ml Vial) 5,000 units SQ Q8 [facility] Stop: 04/20/21 13:59 Last Admin: 03/22/21 05:15 Dose: 5,000 units Documented by: Hydromorphone HCl (Hydromorphone Inj 0.5 Mg/0.5 Ml Syr) 0.5 mg IV Q8 PRN PRN Reason: Pain or Pre PT Stop: 03/31/21 16:24 Insulin Aspart (Insulin Aspart Per Unit) 0 units SC ACHS [facility]; Protocol Stop: 04/16/21 20:59 Last Admin: 03/22/21 09:04 Dose: 13 units Documented by: Insulin Glargine (Insulin Glargine Solostar 100 Units/Ml 3 Ml Pen) 35 units SC [facility]; Protocol Stop: 04/21/21 08:59 Last Admin: 03/22/21 09:03 Dose: 35 units Documented by: Lisinopril (Lisinopril 10 Mg Tab) 10 mg PO DAILY [facility] Stop: 04/17/21 08:59 Last Admin: 03/22/21 09:06 Dose: 10 mg Documented by: Magnesium Hydroxide (Magnesium Hydroxide Susp 30 Ml Udc) 30 ml PO Q6H PRN PRN Reason: Constipation Stop: 04/16/21 16:24 Last Admin: 03/21/21 10:58 Dose: 30 ml Documented by: Magnesium Oxide (Magnesium Oxide 400 Mg Tab) 400 mg PO [facility] Stop: 04/20/21 08:59 Last Admin: 03/22/21 09:07 Dose: 400 mg Documented by: Metoclopramide HCl (Metoclopramide Hcl Inj 5 Mg/Ml 2 Ml Vial) 10 mg IV Q6H PRN PRN Reason: Nausea And Vomiting Stop: 04/16/21 16:24 Metoprolol Succinate (Metoprolol Succ 50mg Ext Rel Tab) 50 mg PO DAILY [facility] Stop: 04/16/21 08:59 Last Admin: 03/22/21 09:06 Dose: 50 mg Documented by: Miscellaneous (Carbohydrates For Hypoglycemia ) 15 - 30 gm PO UD PRN PRN Reason: Hypoglycemia Protocol Stop: 04/15/21 19:11 Miscellaneous Information (Pharmacy Glycemic Mgmt Consult) 1 ea N/A UD PRN; Protocol PRN Reason: Consult Stop: 04/15/21 19:11 Multivitamins (Multivitamin Tab) 1 tab PO [facility] Stop: 04/17/21 08:59 Last Admin: 03/22/21 09:05 Dose: 1 tab Documented by: Naloxone HCl (Naloxone Hcl 0.4 Mg/1 Ml Vial/Carp) 0.1 mg IV Q5M PRN PRN Reason: Oversedation/Resp Depression Stop: 04/16/21 16:24 Ondansetron HCl (Ondansetron Inj 2 Mg/Ml 2 Ml Vial) 4 mg IV Q6H PRN PRN Reason: Nausea And Vomiting Stop: 04/16/21 16:24 Oxycodone HCl (Oxycodone Hcl Ir 5 Mg Tab (Immediate Release)) 5 mg PO Q4 PRN PRN Reason: Moderate Pain Stop: 04/04/21 09:31 Last Admin: 03/21/21 10:42 Dose: 5 mg Documented by: Oxycodone HCl (Oxycodone Hcl Ir 5 Mg Tab (Immediate Release)) 10 mg PO Q4 PRN PRN Reason: Severe Pain Stop: 04/04/21 09:31 Last Admin: 03/22/21 09:12 Dose: 10 mg Documented by: Pantoprazole Sodium (Pantoprazole 40 Mg Tab) 40 mg PO DAILY [facility]; Protocol Stop: 04/16/21 08:59 Last Admin: 03/22/21 09:06 Dose: 40 mg Documented by: Polyethylene Glycol (Polyethylene (Miralax) 17 Gm Pack) 17 gm PO DAILY [facility] Stop: 04/21/21 08:59 Last Admin: 03/22/21 09:02 Dose: 17 gm Documented by: Potassium Chloride (Potassium Chloride Crtab 20 Meq Tabcr) 40 meq PO QAM [facility] Stop: 04/18/21 08:59 Last Admin: 03/22/21 09:06 Dose: 40 meq Documented by: Quetiapine Fumarate (Quetiapine Fumarate 100 Mg Tablet) 100 mg PO [facility] Stop: 04/16/21 20:59 Last Admin: 03/21/21 20:16 Dose: 100 mg Documented by: Sennosides (Senna 8.6 Mg Tab) 17.2 mg PO [facility] Stop: 04/16/21 20:59 Last Admin: 03/21/21 20:16 Dose: 17.2 mg Documented by: Topiramate (Topiramate 50 Mg Tab) 50 mg PO BID [facility] Stop: 04/16/21 20:59 Last Admin: 03/22/21 09:06 Dose: 50 mg Documented by:
--- NOTE | 2021-03-22 17:02 | Hospitalist Progress Note ---
Date of Service March 22, 2021 Assessment & Plan (1) Fall: (2) Bimalleolar fracture of left ankle: (3) Diabetes mellitus, type 2: (4) Anemia: (5) Leukocytosis: (6) Coronary artery disease: (7) Hypertension: (8) Chronic congestive heart failure with left ventricular diastolic dysfunction: (9) Psychotic disorder: (10) Anxiety: (11) Tobacco use disorder: (12) Toxic encephalopathy: Plan: 1. Left ankle fracture Management per Ortho. S/p ORIF 2/2 Cardiology consulted for clearance, risk stratification and optimization. Appreciate input Unreliable historian in terms of pain. To avoid oversedation, will discontinue IV dilaudid and reduce oxycodone frequency. Will continue scheduled tylenol 1000mg Q 8, Gabapentin to 800mg TID. PRN: Oxycodone 5mg - 10mg Change to Q 6PRN for mod-severe pain. Discontinue Dilaudid. 2. Acute on chronic diastolic CHF -Euvolemic -continue lasix 60mg PO 3. Acute on chronic Anemia Most likely from acute blood loss with significant epistaxis recently (at least 5 times per day x 2 weeks) H&P noted, rectal exam in ER normal Received 2 units packed RBC 2/2 with appropriate response -H/H remains stable 4. Acute hypoxic respiratory failure -continue saline nasal spray, petroleum jelly into nares to help with comfort and prevent epistaxis -ongoing hypoxia despite diuresis, likely atelectasis. Encourage OOB to chair, incentive spirometry. Patient is 98% on 3L NC--> She does not appear to need oxygen any longer. Nursing instructed to wean oxygen. Incentive spirometry 5. Leukocytosis -Improved, not on antibiotics -Procalcitonin neg x 2, continue to monitor off antibiotics 6. IDDM -agree with basal bolus regimen as currently ordered 7. CAD with prior CABG -continue metoprolol 50mg daily, aspirin, statin. Plavix was held on admission for surgery--> uncertain if she still needs to remain on DAPT--> will speak with daughter 8. Mood disorder continue Duloxetine, topiramate 50mg BID, seroquel reduced to 100mg QHS 9. DVT ppx -SQ heparin 10. Disposition -Evaluated by PT, recommending rehab Patient is medically stable for discharge to SNF/Rehab. Pending placement Admission and Anticipated Discharge Date Admission Date: March 16, 2021 Subjective Patient continues to complain of 10/10 pain (despite appearing drowsy and very comfortable). She has been receiving oxycodone Q 4 hours due to complaint of pain and has subsequently become drowsy and falling asleep during meals, etc Physical Exam Physical Exam: Poor historian, appears comfortable, does not appear in pain (despite complaint of 10/10 pain) Respiratory: breathing comfortably on room air, no wheezing/rhonchi/rales Cardiovascular: regular rate and rhythm, no murmurs/rubs/gallops Gastrointestinal (Abdomen): soft, non tender Musculoskeletal: no edema, left foot dressing is clean/dry/intact Neurologic: drowsy but arousable, spontaneously moving extremities Psychiatric: affect normal Results & Data Results & Data ([facility]) Vital Signs (Past 12 Hours) Vital Signs Temp Pulse Pulse Resp BP BP Pulse Ox 03/22/21 13:57 36.6 C 109 H 16 122/68 90 03/22/21 08:26 36.5 C 75 12 128/74 90 03/22/21 05:48 Pulse Ox 03/22/21 13:57 03/22/21 08:26 03/22/21 05:48 96 Laboratory Results Short CBC 03/22/21 Range/Units 06:53 WBC 10.94 H (4.8-10.8) K/uL Hgb 9.5 L (12.0-16.0) g/dL Hct 30.6 L (37-47) % Plt Count 298 (130-400) K/uL BMP 03/22/21 06:53 Sodium 140 Potassium 3.7 Chloride 107 Carbon Dioxide 25 BUN 19 Creatinine 0.82 Glucose 105 H Calcium 8.9 Medications Administered Current Inpatient Medications Acetaminophen (Acetaminophen 500 Mg Tab) 1,000 mg PO Q8H [facility] Stop: 04/15/21 21:59 Last Admin: 03/22/21 13:00 Dose: 1,000 mg Documented by: Al Hydrox/Mg Hydrox/Simethicone (Aluminum/Magnesium Susp 30 Ml Udc) 15 ml PO Q4H PRN PRN Reason: Heartburn Stop: 04/16/21 16:24 Aspirin (Aspirin 81 Mg Ectab) 81 mg PO DAILY [facility] Stop: 04/16/21 08:59 Last Admin: 03/22/21 09:05 Dose: 81 mg Documented by: Atorvastatin Calcium (Atorvastatin 40 Mg Tab) 80 mg PO HS [facility] Stop: 04/16/21 20:59 Last Admin: 03/21/21 20:14 Dose: 80 mg Documented by: Bisacodyl (Bisacodyl 10 Mg Supp) 10 mg [place] DAILY PRN PRN Reason: Constipation Stop: 04/16/21 16:24 Dextrose (Dextrose 50% 50 Ml Syringe) 25 - 50 ml IV UD PRN; Protocol PRN Reason: Hypoglycemia Protocol Stop: 04/15/21 19:11 Docusate Sodium (Docusate Sodium 100 Mg Cap) 100 mg PO BID [facility] Stop: 04/16/21 20:59 Last Admin: 03/22/21 09:07 Dose: 100 mg Documented by: Donepezil HCl (Donepezil Hcl 5 Mg Tab) 5 mg PO [facility] Stop: 04/16/21 20:59 Last Admin: 03/21/21 20:15 Dose: 5 mg Documented by: Duloxetine HCl (Duloxetine Hcl 30 Mg Cap) 30 mg PO QAM [facility] Stop: 04/16/21 08:59 Last Admin: 03/22/21 09:05 Dose: 30 mg Documented by: Duloxetine HCl (Duloxetine Hcl 60 Mg Cap) 60 mg PO QAM [facility] Stop: 04/16/21 08:59 Last Admin: 03/22/21 09:05 Dose: 60 mg Documented by: Furosemide (Furosemide 20 Mg Tab) 60 mg PO QAM [facility] Stop: 04/19/21 08:59 Last Admin: 03/22/21 09:05 Dose: 60 mg Documented by: Gabapentin (Gabapentin 600 Mg Tab) 600 mg PO TID [facility] Stop: 04/20/21 13:59 Last Admin: 03/22/21 13:00 Dose: 600 mg Documented by: Glucagon (Glucagon For Inj 1 Mg Vial) 1 mg SQ UD PRN; Protocol PRN Reason: Hypoglycemia Protocol Stop: 04/15/21 19:11 Glucose (Glucose 10 Tabs/Tube) 4 - 8 tabs PO UD PRN; Protocol PRN Reason: Hypoglycemia Protocol Stop: 04/15/21 19:11 Glucose (Glucose 40% Gel 15 Gm Tube) 15 - 30 gm PO UD PRN; Protocol PRN Reason: Hypoglycemia Protocol Stop: 04/15/21 19:11 Heparin Sodium (Porcine) (Heparin Sod 5,000 Unit/0.5 Ml Vial) 5,000 units SQ Q8 [facility] Stop: 04/20/21 13:59 Last Admin: 03/22/21 13:01 Dose: 5,000 units Documented by: Hydromorphone HCl (Hydromorphone Inj 0.5 Mg/0.5 Ml Syr) 0.5 mg IV Q8 PRN PRN Reason: Pain or Pre PT Stop: 03/31/21 16:24 Insulin Aspart (Insulin Aspart Per Unit) 0 units SC [facility]; Protocol Stop: 04/16/21 20:59 Last Admin: 03/22/21 12:43 Dose: 7 units Documented by: Insulin Glargine (Insulin Glargine Solostar 100 Units/Ml 3 Ml Pen) 35 units SC [facility]; Protocol Stop: 04/21/21 08:59 Last Admin: 03/22/21 09:03 Dose: 35 units Documented by: Lisinopril (Lisinopril 10 Mg Tab) 10 mg PO DAILY [facility] Stop: 04/17/21 08:59 Last Admin: 03/22/21 09:06 Dose: 10 mg Documented by: Magnesium Hydroxide (Magnesium Hydroxide Susp 30 Ml Udc) 30 ml PO Q6H PRN PRN Reason: Constipation Stop: 04/16/21 16:24 Last Admin: 03/21/21 10:58 Dose: 30 ml Documented by: Magnesium Oxide (Magnesium Oxide 400 Mg Tab) 400 mg PO [facility] Stop: 04/20/21 08:59 Last Admin: 03/22/21 09:07 Dose: 400 mg Documented by: Metoclopramide HCl (Metoclopramide Hcl Inj 5 Mg/Ml 2 Ml Vial) 10 mg IV Q6H PRN PRN Reason: Nausea And Vomiting Stop: 04/16/21 16:24 Metoprolol Succinate (Metoprolol Succ 50mg Ext Rel Tab) 50 mg PO DAILY [facility] Stop: 04/16/21 08:59 Last Admin: 03/22/21 09:06 Dose: 50 mg Documented by: Miscellaneous (Carbohydrates For Hypoglycemia ) 15 - 30 gm PO UD PRN PRN Reason: Hypoglycemia Protocol Stop: 04/15/21 19:11 Miscellaneous Information (Pharmacy Glycemic Mgmt Consult) 1 ea N/A UD PRN; Protocol PRN Reason: Consult Stop: 04/15/21 19:11 Multivitamins (Multivitamin Tab) 1 tab PO [facility] Stop: 04/17/21 08:59 Last Admin: 03/22/21 09:05 Dose: 1 tab Documented by: Naloxone HCl (Naloxone Hcl 0.4 Mg/1 Ml Vial/Carp) 0.1 mg IV Q5M PRN PRN Reason: Oversedation/Resp Depression Stop: 04/16/21 16:24 Ondansetron HCl (Ondansetron Inj 2 Mg/Ml 2 Ml Vial) 4 mg IV Q6H PRN PRN Reason: Nausea And Vomiting Stop: 04/16/21 16:24 Oxycodone HCl (Oxycodone Hcl Ir 5 Mg Tab (Immediate Release)) 5 mg PO Q4 PRN PRN Reason: Moderate Pain Stop: 04/04/21 09:31 Last Admin: 03/21/21 10:42 Dose: 5 mg Documented by: Oxycodone HCl (Oxycodone Hcl Ir 5 Mg Tab (Immediate Release)) 10 mg PO Q4 PRN PRN Reason: Severe Pain Stop: 04/04/21 09:31 Last Admin: 03/22/21 13:08 Dose: 10 mg Documented by: Pantoprazole Sodium (Pantoprazole 40 Mg Tab) 40 mg PO DAILY [facility]; Protocol Stop: 04/16/21 08:59 Last Admin: 03/22/21 09:06 Dose: 40 mg Documented by: Polyethylene Glycol (Polyethylene (Miralax) 17 Gm Pack) 17 gm PO DAILY [facility] Stop: 04/21/21 08:59 Last Admin: 03/22/21 09:02 Dose: 17 gm Documented by: Potassium Chloride (Potassium Chloride Crtab 20 Meq Tabcr) 40 meq PO QAM [facility] Stop: 04/18/21 08:59 Last Admin: 03/22/21 09:06 Dose: 40 meq Documented by: Quetiapine Fumarate (Quetiapine Fumarate 100 Mg Tablet) 100 mg PO [facility] Stop: 04/16/21 20:59 Last Admin: 03/21/21 20:16 Dose: 100 mg Documented by: Sennosides (Senna 8.6 Mg Tab) 17.2 mg PO HS [facility] Stop: 04/16/21 20:59 Last Admin: 03/21/21 20:16 Dose: 17.2 mg Documented by: Topiramate (Topiramate 50 Mg Tab) 50 mg PO BID [facility] Stop: 04/16/21 20:59 Last Admin: 03/22/21 09:06 Dose: 50 mg Documented by:
[2021-03-22] MEDS ORDERED: oxyCODONE HCL IR 5 MG TAB (IMMEDIATE RELEASE) PO PRN (17:08)
[2021-03-22] MEDS: ATORVASTATIN 40 MG TAB PO SCH (20:21)
[2021-03-22] MEDS: DONEPEZIL HCL 5 MG TAB PO SCH (20:22)
[2021-03-22] MEDS: SENNA 8.6 MG TAB PO SCH (20:23)
[2021-03-22] MEDS: QUEtiapine FUMARATE 100 MG TABLET PO SCH (20:23)
[2021-03-22] MEDS: MAGNESIUM HYDROXIDE SUSP 30 ML UDC PO PRN (20:26)
[2021-03-23] MEDS: oxyCODONE HCL IR 5 MG TAB (IMMEDIATE RELEASE) PO PRN ×4 (01:22→23:10)
[2021-03-23] MEDS: HEPARIN SOD 5,000 UNIT/0.5 ML VIAL SQ SCH ×3 (05:57→20:30)
[2021-03-23] MEDS: ACETAMINOPHEN 500 MG TAB PO SCH ×3 (05:57→20:33)
[2021-03-23] MEDS: POLYETHYLENE (MIRALAX) 17 GM PACK PO SCH (08:34)
[2021-03-23] MEDS: TOPIRAMATE 50 MG TAB PO SCH ×2 (08:35→20:27)
[2021-03-23] MEDS: GABAPENTIN 600 MG TAB PO SCH ×3 (08:35→20:27)
[2021-03-23] MEDS: MULTIVITAMIN TAB PO SCH (08:35)
[2021-03-23] MEDS: PANTOprazole 40 MG TAB PO SCH (08:35)
[2021-03-23] MEDS: METOPROLOL SUCC 50MG EXT REL TAB PO SCH (08:36)
[2021-03-23] MEDS: lisinopril 10 MG TAB PO SCH (08:36)
[2021-03-23] MEDS: FUROSEMIDE 20 MG TAB PO SCH (08:36)
[2021-03-23] MEDS: ASPIRIN 81 MG ECTAB PO SCH (08:36)
[2021-03-23] MEDS: DULoxetine HCL 30 MG CAP PO SCH (08:36)
[2021-03-23] MEDS: DULoxetine HCL 60 MG CAP PO SCH (08:37)
[2021-03-23] MEDS: MAGNESIUM OXIDE 400 MG TAB PO SCH (08:37)
[2021-03-23] MEDS: POTASSIUM CHLORIDE CRTAB 20 MEQ TABCR PO SCH (08:44)
[2021-03-23] MEDS: DOCUSATE SODIUM 100 MG CAP PO SCH ×2 (08:44→20:36)
[2021-03-23] MEDS: INSULIN ASPART PER UNIT SC SCH ×4 (08:45→22:49)
[2021-03-23] MEDS: INSULIN GLARGINE SOLOSTAR 100 UNITS/ML 3 ML PEN SC SCH (08:45)
--- NOTE | 2021-03-23 17:37 | Hospitalist Progress Note ---
Date of Service March 23, 2021 Assessment & Plan (1) Fall: (2) Bimalleolar fracture of left ankle: (3) Diabetes mellitus, type 2: (4) Anemia: (5) Leukocytosis: (6) Coronary artery disease: (7) Hypertension: (8) Chronic congestive heart failure with left ventricular diastolic dysfunction: (9) Psychotic disorder: (10) Anxiety: (11) Tobacco use disorder: (12) Toxic encephalopathy: Plan: 1. Left ankle fracture Management per Ortho. S/p ORIF 2/2 Cardiology consulted for clearance, risk stratification and optimization. Appreciate input Unreliable historian in terms of pain. To avoid oversedation, IV dilaudid discontinued and oxycodone frequency reduced yesterday. I spoke with patient's daughter, she does have a history of pain medication abuse/overuse. Will continue scheduled tylenol 1000mg Q 8, Gabapentin to 800mg TID. PRN: Oxycodone 5mg - 10mg Q 6PRN for mod-severe pain. Will ask for Ortho re-evaluation tomorrow given her reported uncontrolled pain 2. Acute on chronic diastolic CHF -Euvolemic -continue lasix 60mg PO 3. Acute on chronic Anemia Most likely from acute blood loss with significant epistaxis recently (at least 5 times per day x 2 weeks) H&P noted, rectal exam in ER normal Received 2 units packed RBC 2/2 with appropriate response -H/H remains stable 4. Acute hypoxic respiratory failure -continue saline nasal spray, petroleum jelly into nares to help with comfort and prevent epistaxis - Encourage OOB to chair, incentive spirometry. Patient is 98% on 3L NC--> Now 92% on RA 5. Leukocytosis -Improved, not on antibiotics -Procalcitonin neg x 2, continue to monitor off antibiotics -repeat CBC, procalcitonin tomorrow 6. IDDM -agree with basal bolus regimen as currently ordered 7. CAD with prior CABG -continue metoprolol 50mg daily, aspirin, statin. Plavix was held on admission for surgery--> uncertain if she still needs to remain on DAPT-->Spoke with Perla Webb (patient's daughter), patient has not had any cardiac stents within past 1 year. While she is in the hospital and on SQ heparin, will continue to hold plavix. At discharge, she can be discharged back on aspirin and plavix and she will need to follow up with her OP street cleaner to discuss whether plavix should be discontinued. 8. Mood disorder continue Duloxetine, topiramate 50mg BID, seroquel reduced to 100mg QHS due to oversedation. Patient's mood is well controlled currently 9. DVT ppx -SQ heparin 10. Disposition -Evaluated by PT, recommending rehab Patient is medically stable for discharge to SNF/Rehab. Pending placement Care plan was discussed with daughter, Perla Webb, all questions were answered Admission and Anticipated Discharge Date Admission Date: March 16, 2021 Subjective Patient yesterday was very drowsy with her medications so IV dilaudid was discontinued and oxycodone frequency reduced to Q6 PRN currently patient complaining of 20/10 pain especially at the top of her left foot "It feels like my skin is peeling off!" Physical Exam Physical Exam: sitting in chair, awake, appears comfortable Respiratory: breathing comfortably on room air Cardiovascular: regular rate and rhythm Musculoskeletal: no edema noted, left foot in dressing--clean/dry/intact Neurologic: awake, alert, spontaneously moving extremities Psychiatric: affect normal, speech linear, non pressured Results & Data Results & Data ([facility]) Vital Signs (Past 12 Hours) Vital Signs Temp Pulse Resp BP Pulse Ox 03/23/21 15:24 36.8 C 88 18 134/85 92 03/23/21 07:46 36.7 C 110 H 16 125/75 97 Medications Administered Current Inpatient Medications Acetaminophen (Acetaminophen 500 Mg Tab) 1,000 mg PO Q8H SAMANTHA Stop: 04/15/21 21:59 Last Admin: 03/23/21 13:05 Dose: 1,000 mg Documented by: Al Hydrox/Mg Hydrox/Simethicone (Aluminum/Magnesium Susp 30 Ml Udc) 15 ml PO Q4H PRN PRN Reason: Heartburn Stop: 04/16/21 16:24 Aspirin (Aspirin 81 Mg Ectab) 81 mg PO DAILY SAMANTHA Stop: 04/16/21 08:59 Last Admin: 03/23/21 08:36 Dose: 81 mg Documented by: Atorvastatin Calcium (Atorvastatin 40 Mg Tab) 80 mg PO HS SAMANTHA Stop: 04/16/21 20:59 Last Admin: 03/22/21 20:21 Dose: 80 mg Documented by: Bisacodyl (Bisacodyl 10 Mg Supp) 10 mg [place] DAILY PRN PRN Reason: Constipation Stop: 04/16/21 16:24 Dextrose (Dextrose 50% 50 Ml Syringe) 25 - 50 ml IV UD PRN; Protocol PRN Reason: Hypoglycemia Protocol Stop: 04/15/21 19:11 Docusate Sodium (Docusate Sodium 100 Mg Cap) 100 mg PO BID [facility] Stop: 04/16/21 20:59 Last Admin: 03/23/21 08:44 Dose: 100 mg Documented by: Donepezil HCl (Donepezil Hcl 5 Mg Tab) 5 mg PO HS [facility] Stop: 04/16/21 20:59 Last Admin: 03/22/21 20:22 Dose: 5 mg Documented by: Duloxetine HCl (Duloxetine Hcl 30 Mg Cap) [facility] Stop: 04/16/21 08:59 Last Admin: 03/23/21 08:36 Dose: 30 mg Documented by: Duloxetine HCl (Duloxetine Hcl 60 Mg Cap) 60 mg PO [facility] Stop: 04/16/21 08:59 Last Admin: 03/23/21 08:37 Dose: 60 mg Documented by: Furosemide (Furosemide 20 Mg Tab) 60 mg PO [facility] Stop: 04/19/21 08:59 Last Admin: 03/23/21 08:36 Dose: 60 mg Documented by: Gabapentin (Gabapentin 600 Mg Tab) 600 mg PO TID [facility] Stop: 04/20/21 13:59 Last Admin: 03/23/21 13:02 Dose: 600 mg Documented by: Glucagon (Glucagon For Inj 1 Mg Vial) 1 mg SQ UD PRN; Protocol PRN Reason: Hypoglycemia Protocol Stop: 04/15/21 19:11 Glucose (Glucose 10 Tabs/Tube) 4 - 8 tabs PO UD PRN; Protocol PRN Reason: Hypoglycemia Protocol Stop: 04/15/21 19:11 Glucose (Glucose 40% Gel 15 Gm Tube) 15 - 30 gm PO UD PRN; Protocol PRN Reason: Hypoglycemia Protocol Stop: 04/15/21 19:11 Heparin Sodium (Porcine) (Heparin Sod 5,000 Unit/0.5 Ml Vial) 5,000 units SQ Q8 [facility] Stop: 04/20/21 13:59 Last Admin: 03/23/21 13:02 Dose: 5,000 units Documented by: Insulin Aspart (Insulin Aspart Per Unit) 0 units [facility]; Protocol Stop: 04/16/21 20:59 Last Admin: 03/23/21 13:02 Dose: 7 units Documented by: Insulin Glargine (Insulin Glargine Solostar 100 Units/Ml 3 Ml Pen) [facility]; Protocol Stop: 04/21/21 08:59 Last Admin: 03/23/21 08:45 Dose: 35 units Documented by: Lisinopril (Lisinopril 10 Mg Tab) 10 mg PO DAILY [facility] Stop: 04/17/21 08:59 Last Admin: 03/23/21 08:36 Dose: 10 mg Documented by: Magnesium Hydroxide (Magnesium Hydroxide Susp 30 Ml Udc) 30 ml PO Q6H PRN PRN Reason: Constipation Stop: 04/16/21 16:24 Last Admin: 03/22/21 20:26 Dose: 30 ml Documented by: Magnesium Oxide (Magnesium Oxide 400 Mg Tab) 400 mg PO [facility] Stop: 04/20/21 08:59 Last Admin: 03/23/21 08:37 Dose: 400 mg Documented by: Metoclopramide HCl (Metoclopramide Hcl Inj 5 Mg/Ml 2 Ml Vial) 10 mg IV Q6H PRN PRN Reason: Nausea And Vomiting Stop: 04/16/21 16:24 Metoprolol Succinate (Metoprolol Succ 50mg Ext Rel Tab) 50 mg PO DAILY [facility] Stop: 04/16/21 08:59 Last Admin: 03/23/21 08:36 Dose: 50 mg Documented by: Miscellaneous (Carbohydrates For Hypoglycemia ) 15 - 30 gm PO UD PRN PRN Reason: Hypoglycemia Protocol Stop: 04/15/21 19:11 Miscellaneous Information (Pharmacy Glycemic Mgmt Consult) 1 ea N/A UD PRN; Protocol PRN Reason: Consult Stop: 04/15/21 19:11 Multivitamins (Multivitamin Tab) 1 tab PO [facility] Stop: 04/17/21 08:59 Last Admin: 03/23/21 08:35 Dose: 1 tab Documented by: Naloxone HCl (Naloxone Hcl 0.4 Mg/1 Ml Vial/Carp) 0.1 mg IV Q5M PRN PRN Reason: Oversedation/Resp Depression Stop: 04/16/21 16:24 Ondansetron HCl (Ondansetron Inj 2 Mg/Ml 2 Ml Vial) 4 mg IV Q6H PRN PRN Reason: Nausea And Vomiting Stop: 04/16/21 16:24 Oxycodone HCl (Oxycodone Hcl Ir 5 Mg Tab (Immediate Release)) 5 mg PO Q6 PRN PRN Reason: Moderate Pain Stop: 04/04/21 09:31 Oxycodone HCl (Oxycodone Hcl Ir 5 Mg Tab (Immediate Release)) 10 mg PO Q6 PRN PRN Reason: Severe Pain Stop: 04/04/21 09:31 Last Admin: 03/23/21 15:34 Dose: 10 mg Documented by: Pantoprazole Sodium (Pantoprazole 40 Mg Tab) 40 mg PO DAILY [facility]; Protocol Stop: 04/16/21 08:59 Last Admin: 03/23/21 08:35 Dose: 40 mg Documented by: Polyethylene Glycol (Polyethylene (Miralax) 17 Gm Pack) 17 gm PO DAILY [facility] Stop: 04/21/21 08:59 Last Admin: 03/23/21 08:34 Dose: 17 gm Documented by: Potassium Chloride (Potassium Chloride Crtab 20 Meq Tabcr) 40 meq [facility] Stop: 04/18/21 08:59 Last Admin: 03/23/21 08:44 Dose: 40 meq Documented by: Quetiapine Fumarate (Quetiapine Fumarate 100 Mg Tablet) 100 mg PO [facility] Stop: 04/16/21 20:59 Last Admin: 03/22/21 20:23 Dose: 100 mg Documented by: Sennosides (Senna 8.6 Mg Tab) 17.2 mg PO [facility] Stop: 04/16/21 20:59 Last Admin: 03/22/21 20:23 Dose: 17.2 mg Documented by: Topiramate (Topiramate 50 Mg Tab) 50 mg PO BID [facility] Stop: 04/16/21 20:59 Last Admin: 03/23/21 08:35 Dose: 50 mg Documented by:
[2021-03-23] MEDS: SENNA 8.6 MG TAB PO SCH (20:25)
[2021-03-23] MEDS: ATORVASTATIN 40 MG TAB PO SCH (20:26)
[2021-03-23] MEDS: DONEPEZIL HCL 5 MG TAB PO SCH (20:27)
[2021-03-23] MEDS: QUEtiapine FUMARATE 100 MG TABLET PO SCH (20:27)
[2021-03-24] MEDS: ACETAMINOPHEN 500 MG TAB PO SCH ×3 (06:01→21:23)
[2021-03-24] MEDS: HEPARIN SOD 5,000 UNIT/0.5 ML VIAL SQ SCH ×3 (06:01→21:18)
[2021-03-24 06:17] LABS: Basophils # (auto) 0.03 K/uL (0-0.2); Basophils % (auto) 0.3 %; Eosinophils # (auto) 0.12 K/uL (0-0.5); Eosinophils % (auto) 1.1 %; Hematocrit (blood only) 32.3 % (37-47); Hemoglobin 9.8 g/dL (12.0-16.0); Immature Granulocytes # (auto) 0.28 K/uL (0.00-0.02); Immature Granulocytes % (auto) 2.5 %; Lymphocytes # (auto) 2.14 K/uL (1.2-3.4); Lymphocytes % (auto) 19.1 %; Mean Corpuscular Hgb Conc 30.3 g/dL (32-36); Mean Platelet Volume 10.2 fL (7.4-10.4); Monocytes # (auto) 2.19 K/uL (0.11-0.59); Monocytes % (auto) 19.6 %; Neutrophils # (auto) 6.42 K/uL (1.4-6.5); Neutrophils % (auto) 57.4 %; Platelet Count 339 K/uL (130-400); RDW Coefficient of Variation 16.5 % (11.5-14.5); RDW Standard Deviation 54.4 fL (36.4-46.3); Red Blood Count 3.63 M/uL (4.2-5.4); White Blood Count 11.18 K/uL (4.8-10.8)
[2021-03-24] MEDS: oxyCODONE HCL IR 5 MG TAB (IMMEDIATE RELEASE) PO PRN ×3 (06:19→20:24)
[2021-03-24 06:48] LABS: BUN Creatinine Ratio 21.3 (10-20); Creatinine Clr Calc Pharmacy 60.7 ml/min; Est GFR (African American) 75.4 ml/min; Potassium 4.6 mmol/L (3.5-5.1)
[2021-03-24] MEDS: GABAPENTIN 600 MG TAB PO SCH ×3 (08:30→21:19)
[2021-03-24] MEDS: METOPROLOL SUCC 50MG EXT REL TAB PO SCH (08:30)
[2021-03-24] MEDS: MAGNESIUM OXIDE 400 MG TAB PO SCH (08:30)
[2021-03-24] MEDS: lisinopril 10 MG TAB PO SCH (08:30)
[2021-03-24] MEDS: ASPIRIN 81 MG ECTAB PO SCH (08:30)
[2021-03-24] MEDS: MULTIVITAMIN TAB PO SCH (08:30)
[2021-03-24] MEDS: PANTOprazole 40 MG TAB PO SCH (08:30)
[2021-03-24] MEDS: TOPIRAMATE 50 MG TAB PO SCH ×2 (08:30→21:17)
[2021-03-24] MEDS: FUROSEMIDE 20 MG TAB PO SCH (08:30)
[2021-03-24] MEDS: DULoxetine HCL 30 MG CAP PO SCH (08:30)
[2021-03-24] MEDS: POLYETHYLENE (MIRALAX) 17 GM PACK PO SCH (08:33)
[2021-03-24] MEDS: DOCUSATE SODIUM 100 MG CAP PO SCH ×2 (08:33→21:23)
[2021-03-24] MEDS: POTASSIUM CHLORIDE CRTAB 20 MEQ TABCR PO SCH (08:33)
[2021-03-24] MEDS ORDERED: INSULIN GLARGINE SOLOSTAR 100 UNITS/ML 3 ML PEN SC SCH (09:00)
[2021-03-24] MEDS: INSULIN ASPART PER UNIT SC SCH ×4 (09:38→21:18)
[2021-03-24] MEDS: DULoxetine HCL 60 MG CAP PO SCH (09:38)
[2021-03-24] MEDS: INSULIN GLARGINE SOLOSTAR 100 UNITS/ML 3 ML PEN SC SCH (09:41)
--- NOTE | 2021-03-24 11:13 | Hospitalist Progress Note ---
Date of Service March 24, 2021 Assessment & Plan (1) Fall: (2) Bimalleolar fracture of left ankle: (3) Diabetes mellitus, type 2: (4) Anemia: (5) Leukocytosis: (6) Coronary artery disease: (7) Hypertension: (8) Chronic congestive heart failure with left ventricular diastolic dysfunction: (9) Psychotic disorder: (10) Anxiety: (11) Tobacco use disorder: (12) Toxic encephalopathy: Plan: 1. Left ankle fracture Management per Ortho. S/p ORIF 2/2 Cardiology consulted for clearance, risk stratification and optimization. Appreciate input Unreliable historian in terms of pain. To avoid oversedation, IV dilaudid discontinued and oxycodone frequency reduced. Dr Garcia spoke with patient's daughter, she does have a history of pain medication abuse/overuse. Will continue scheduled tylenol 1000mg Q 8, Gabapentin to 800mg TID. PRN: Oxycodone 5mg - 10mg Q 6PRN for mod-severe pain. Ortho re-evaluation today given her reported uncontrolled pain 2. Acute on chronic diastolic CHF -Euvolemic -continue lasix 60mg PO 3. Acute on chronic Anemia Most likely from acute blood loss with significant epistaxis recently (at least 5 times per day x 2 weeks) H&P noted, rectal exam in ER normal Received 2 units packed RBC 2/2 with appropriate response -H/H remains stable 4. Acute hypoxic respiratory failure -continue saline nasal spray, petroleum jelly into nares to help with comfort and prevent epistaxis - Encourage OOB to chair, incentive spirometry. Patient is 98% on 3L NC--> Now 92% on RA 5. Leukocytosis -Improved, not on antibiotics -Procalcitonin neg x 2, continue to monitor off antibiotics -repeat CBC, procalcitonin tomorrow 6. IDDM -agree with basal bolus regimen as currently ordered 7. CAD with prior CABG -continue metoprolol 50mg daily, aspirin, statin. Plavix was held on admission for surgery--> uncertain if she still needs to remain on DAPT-->Spoke with Perla Webb (patient's daughter), patient has not had any cardiac stents within past 1 year. While she is in the hospital and on SQ heparin, will continue to hold plavix. At discharge, she can be discharged back on aspirin and plavix and she will need to follow up with her OP rn training to discuss whether plavix should be discontinued. 8. Mood disorder continue Duloxetine, topiramate 50mg BID, seroquel reduced to 100mg QHS due to oversedation. Patient's mood is well controlled currently 9. DVT ppx -SQ heparin 10. Disposition -Evaluated by PT, recommending rehab Labs Checked Patient is medically stable for discharge to SNF/Rehab. Pending placement ROS-No Headache, No Visual Changes, No Nausea, No Vomiting, No Fever, No Chills, No Neck Pain or Stiffness, No Chest Pain, No Palpitations, No SOB, No COLLINS, No Cough, No Sputum, No Wheezing, No Abdominal Pain, No Diarrhea, No Hematemesis, No Hemoptysis, No Unexpected Weight Loss, No Flank pain, No Melena, No Hematochezia, No Frequency, No Urgency, No Burning, No Hematuria, No Rashes, No Diaphoresis. Appetite is Normal, c/o leg pain Physical Exam Gen-AAO x 3, NAD, Afebrile Head-NCAT, EOMI, PERRLA, Anicteric Sclera, No Posterior Pharyngeal Erythema Neck-Supple, No JVD, No Thyromegaly, No Masses, No LAD, No Bruits Lungs-Clear to Auscultation Bilaterally, No Rales, No Rhonchi, No Wheezing, No Crepitus Chest-No S4, +S1, +S2, No S3, No Murmurs, No Rubs, No Gallops, No Ectopy Abdomen-Soft, Bowel Sounds Present, Non Tender, Non Distended, No Hepatomegaly, No Splenomegaly, No Palpable Masses, No Rebound, No Rigidity, No Guarding Musculoskeletal-Full Range of Motion Bilaterally, No CVAT Extremities-No Cyanosis, No Clubbing, No Edema, LLE casted Nuero-Cranial Nerves II-XII grossly intact, Motor WNL, DTRs WNL, Strength WNL, Non Focal Psych-Normal Mood Admission and Anticipated Discharge Date Admission Date: March 16, 2021 Subjective Patient seen today in her room she was sitting up in bed with her legs dangling over the side. She had a minor episode of nosebleed this morning. Denies any headache fevers or chills Results & Data Results & Data ([facility]) Vital Signs (Past 12 Hours) Vital Signs Temp Pulse Resp BP Pulse Ox 02/09/22 07:57 37 C 95 H 16 125/78 91
--- NOTE | 2021-03-24 13:50 | Pharmacy Report ---
Pharmacy Glycemic Short Note 2 - Date of Service March 24, 2021 - Glycemic Short BSG Results (Last 24 hours): 03/23/21 03/23/21 03/24/21 17:18 20:59 05:58 Glucose 71 POC Glucose 82 106 H 03/24/21 03/24/21 03/24/21 08:15 08:36 11:58 Glucose POC Glucose 69 L* 79 133 H OUTPATIENT ANTIDIABETIC REGIMEN: * Basaglar 46 units SC AM * Novolog SSI (prescription last filled 09/2020) * HbA1c: 8.3% (03/17/21) ASSESSMENT: 03/24/21: * Ms Welch has been requiring ~60 units of insulin per day for the past several days. * Fasting BSG trending down (was 69 mg/dL this morning). Lantus dose reduced this morning. * Novolog parameters appear to be appropriate at this time. 03/21 * BSGs yesterday of 136, 227, 182, and 117 mg/dL, fasting BSG of 181 mg/dL this morning * Received 62 units of insulin (35 units of Lantus and 27 units of prandial/correctional bolus) * Will increase Lantus this morning and continue tightened Novolog parameters from yesterday 03/18 * Ms Welch was hyperglycemic post-op yesterday. BSGs have been reasonable thus far today. * Lantus transitioned back to QAM dosing this morning, for ease of discharge planning. * Novolog parameters were tightened last evening and appear to be appropriate. No further changes at this time. 03/17 * 60 yo F admitted yesterday secondary to mechanical fall with ankle fracture. Pharmacy has been consulted to assist with inpatient glycemic management. Patient is NPO for the OR later this afternoon. * BSGs last evening were elevated at 246-211 mg/dL. Patient received 14 units of Lantus at bedtime and 10 units of Novolog between dinner and bedtime. * Fasting BSG was 134 mg/dL this AM. Given NPO status decided to hold Lantus this morning. Will monitor perioperative steroid use and give NPH if necessary. Will give Lantus postoperatively once a diet is order. * Update: Lantus 14 units given prior to OR given elevated BSG around noon. * Novolog was initiated based on weight stress of 2-3. Continue for now. Targeting goal range of 110 - 140 mg/dL to promote wound healing and prevent postoperative infections. PLAN FOR INPATIENT GLYCEMIC CONTROL: * Basal insulin * Lantus 25 units SC daily * Bolus insulin * NovoLog per scale ACHS or Q6hrs while NPO * Goal Range: Low 110 mg/dL - High 140 mg/dL * Correction Factor: 20 mg/dL/unit * Nutritional / Prandial insulin per carb ratio of 1 unit per 7 grams CHO consumed PLAN FOR DISCHARGE: * A1c: 8.3% * This indicates suboptimal glycemic control in a 60yo patient. Goal A1c likely closer to 7.0%. * Suspect that pt may resume home regimen on discharge, as long as no contraindications are present. * Recommend prompt f/u with outpt provider after discharge to work toward optimi zing A1c.
[2021-03-24] MEDS: QUEtiapine FUMARATE 100 MG TABLET PO SCH (21:17)
[2021-03-24] MEDS: SENNA 8.6 MG TAB PO SCH (21:17)
[2021-03-24] MEDS: ATORVASTATIN 40 MG TAB PO SCH (21:18)
[2021-03-24] MEDS: DONEPEZIL HCL 5 MG TAB PO SCH (21:18)
[2021-03-24] MEDS ORDERED: KETOROLAC TROMETHAMINE 15 MG/ML VIAL IV ONE (22:06)
--- NOTE | 2021-03-24 22:36 | Progress Notes ---
DATE OF SERVICE: 03/24/2021. SUBJECTIVE: A 60-year-old female now 1 week out from ORIF of her left bimalleolar ankle fracture and conservative care of a Lisfranc injury. She has been complaining of a lot of leg pain. She describ es hip pain and left mid jones pain. She has got a splint in place. No other complaints really, she says she just hurts all over. OBJECTIVE: VITAL SIGNS: Temperature is 36.8. Vital signs are stable. PHYSICAL EXAMINATION: EXTREMITIES: Physical examination of the left leg with the splint removed reveals both incisions to be well approximated. Minimal drainage laterally and no drainage medially. Ankle is well aligned. There is some moderate bruising. No signs of problems. She has got moderate mid foot swelling as we ll. ASSESSMENT: A 60-year-old female with multiple medical comorbidities, now 1 week out from open reduc tion and internal fixation of a left bimalleolar ankle fracture and conservative care for a Lisfranc injury. She is complaining of a lot of jones pain and we removed the splint and everything looks okay . PLAN: We are going to leave the splint off for now and get her a high tide walking boot. She is goi ng to be strictly nonweightbearing for 6 weeks. I once again need to see her back somewhere between 2 and 3 weeks out from her surgery date. Any orthopedic questions can be directed to me at . Job ID: [id number]
[2021-03-25] MEDS: HEPARIN SOD 5,000 UNIT/0.5 ML VIAL SQ SCH ×3 (05:47→21:55)
[2021-03-25] MEDS: ACETAMINOPHEN 500 MG TAB PO SCH ×3 (05:47→21:55)
[2021-03-25] MEDS: METOPROLOL SUCC 50MG EXT REL TAB PO SCH (07:35)
[2021-03-25] MEDS: TOPIRAMATE 50 MG TAB PO SCH ×2 (07:35→20:17)
[2021-03-25] MEDS: FUROSEMIDE 20 MG TAB PO SCH (07:35)
[2021-03-25] MEDS: MAGNESIUM OXIDE 400 MG TAB PO SCH (07:35)
[2021-03-25] MEDS: GABAPENTIN 600 MG TAB PO SCH ×3 (07:36→20:15)
[2021-03-25] MEDS: oxyCODONE HCL IR 5 MG TAB (IMMEDIATE RELEASE) PO PRN ×3 (07:36→20:14)
[2021-03-25] MEDS: ASPIRIN 81 MG ECTAB PO SCH (07:36)
[2021-03-25] MEDS: DULoxetine HCL 60 MG CAP PO SCH (07:36)
[2021-03-25] MEDS: POTASSIUM CHLORIDE CRTAB 20 MEQ TABCR PO SCH (07:36)
[2021-03-25] MEDS: MULTIVITAMIN TAB PO SCH (07:36)
[2021-03-25] MEDS: DOCUSATE SODIUM 100 MG CAP PO SCH ×2 (07:36→20:14)
[2021-03-25] MEDS: PANTOprazole 40 MG TAB PO SCH (07:36)
[2021-03-25] MEDS: DULoxetine HCL 30 MG CAP PO SCH (07:36)
[2021-03-25] MEDS: lisinopril 10 MG TAB PO SCH (07:36)
[2021-03-25] MEDS: POLYETHYLENE (MIRALAX) 17 GM PACK PO SCH (07:37)
[2021-03-25] MEDS: INSULIN GLARGINE SOLOSTAR 100 UNITS/ML 3 ML PEN SC SCH (09:21)
[2021-03-25] MEDS: INSULIN ASPART PER UNIT SC SCH ×4 (09:21→21:09)
--- NOTE | 2021-03-25 11:35 | Hospitalist Progress Note ---
Date of Service March 25, 2021 Assessment & Plan (1) Fall: (2) Bimalleolar fracture of left ankle: (3) Diabetes mellitus, type 2: (4) Anemia: (5) Leukocytosis: (6) Coronary artery disease: (7) Hypertension: (8) Chronic congestive heart failure with left ventricular diastolic dysfunction: (9) Psychotic disorder: (10) Anxiety: (11) Tobacco use disorder: (12) Toxic encephalopathy: Plan: 1. Left ankle fracture Management per Ortho. S/p ORIF 2/2 Cardiology consulted for clearance, risk stratification and optimization. Appreciate input Unreliable historian in terms of pain. To avoid oversedation, IV dilaudid discontinued and oxycodone frequency reduced. Dr Garcia spoke with patient's daughter, she does have a history of pain medication abuse/overuse. Will continue scheduled tylenol 1000mg Q 8, Gabapentin to 800mg TID. PRN: Oxycodone 5mg - 10mg Q 6PRN for mod-severe pain. Ortho re-evaluation removed splint/Cast, NWB 6 weeks 2. Acute on chronic diastolic CHF -Euvolemic -continue lasix 60mg PO 3. Acute on chronic Anemia Most likely from acute blood loss with significant epistaxis recently (at least 5 times per day x 2 weeks) H&P noted, rectal exam in ER normal Received 2 units packed RBC 2/2 with appropriate response -H/H remains stable 4. Acute hypoxic respiratory failure -continue saline nasal spray, petroleum jelly into nares to help with comfort and prevent epistaxis - Encourage OOB to chair, incentive spirometry. Patient is 98% on 3L NC--> Now 92% on RA 5. Leukocytosis -Improved, not on antibiotics -Procalcitonin neg x 2, continue to monitor off antibiotics -repeat CBC, procalcitonin tomorrow 6. IDDM -agree with basal bolus regimen as currently ordered 7. CAD with prior CABG -continue metoprolol 50mg daily, aspirin, statin. Plavix was held on admission for surgery--> uncertain if she still needs to remain on DAPT-->Spoke with Perla Webb (patient's daughter), patient has not had any cardiac stents within past 1 year. While she is in the hospital and on SQ heparin, will continue to hold plavix. At discharge, she can be discharged back on aspirin and plavix and she will need to follow up with her OP supervisor leaf [employer] to discuss whether plavix should be discontinued. 8. Mood disorder continue Duloxetine, topiramate 50mg BID, seroquel reduced to 100mg QHS due to oversedation. Patient's mood is well controlled currently 9. DVT ppx -SQ heparin 10. Disposition -Evaluated by PT, recommending rehab Labs Checked Patient is medically stable for discharge to SNF/Rehab. Pending placement ROS-No Headache, No Visual Changes, No Nausea, No Vomiting, No Fever, No Chills, No Neck Pain or Stiffness, No Chest Pain, No Palpitations, No SOB, No COLLINS, No Cough, No Sputum, No Wheezing, No Abdominal Pain, No Diarrhea, No Hematemesis, No Hemoptysis, No Unexpected Weight Loss, No Flank pain, No Melena, No Hematochezia, No Frequency, No Urgency, No Burning, No Hematuria, No Rashes, No Diaphoresis. Appetite is Normal, Less leg pain Physical Exam Gen-AAO x 3, NAD, Afebrile Head-NCAT, EOMI, PERRLA, Anicteric Sclera, No Posterior Pharyngeal Erythema Neck-Supple, No JVD, No Thyromegaly, No Masses, No LAD, No Bruits Lungs-Clear to Auscultation Bilaterally, No Rales, No Rhonchi, No Wheezing, No Crepitus Chest-No S4, +S1, +S2, No S3, No Murmurs, No Rubs, No Gallops, No Ectopy Abdomen-Soft, Bowel Sounds Present, Non Tender, Non Distended, No Hepatomegaly, No Splenomegaly, No Palpable Masses, No Rebound, No Rigidity, No Guarding Musculoskeletal-Full Range of Motion Bilaterally, No CVAT Extremities-No Cyanosis, No Clubbing, No Edema, LLE casted Nuero-Cranial Nerves II-XII grossly intact, Motor WNL, DTRs WNL, Strength WNL, Non Focal Psych-Normal Mood Admission and Anticipated Discharge Date Admission Date: March 16, 2021 Subjective Patient seen today in her room she was sitting up in a chair eating breakfast. Denies any headache fevers or chills, Cast/splint off, walking boot soon, NWB 6 weeks Results & Data Results & Data ([facility]) Vital Signs (Past 12 Hours) Vital Signs Temp Pulse Resp BP Pulse Ox 02/10/22 07:39 36.4 C L 95 H 18 123/81 91
[2021-03-25] MEDS: SENNA 8.6 MG TAB PO SCH (20:15)
[2021-03-25] MEDS: QUEtiapine FUMARATE 100 MG TABLET PO SCH (20:16)
[2021-03-25] MEDS: ATORVASTATIN 40 MG TAB PO SCH (20:16)
[2021-03-25] MEDS: DONEPEZIL HCL 5 MG TAB PO SCH (20:16)
[2021-03-26] MEDS: oxyCODONE HCL IR 5 MG TAB (IMMEDIATE RELEASE) PO PRN ×4 (02:16→20:36)
[2021-03-26] MEDS: HEPARIN SOD 5,000 UNIT/0.5 ML VIAL SQ SCH ×3 (05:54→22:05)
[2021-03-26] MEDS: ACETAMINOPHEN 500 MG TAB PO SCH ×3 (05:54→22:04)
--- NOTE | 2021-03-26 08:04 | Progress Notes ---
DATE OF SERVICE: 03/26/2021. SUBJECTIVE: A 60-year-old white female, now 9 days out from ORIF of left bimalleolar ankle fracture along with conservative care of her Lisfranc injury. No new complaints. She is resting comfortably this morning. OBJECTIVE: VITAL SIGNS: Temperature 37.1. Vital signs are stable. PHYSICAL EXAMINATION: EXTREMITIES: Physical examination of the left leg reveals the dressing to be clean, dry and intact. Foot swelling seems to be a little bit better. No obvious pain. She is neurologically stable. ASSESSMENT: A 60-year-old female 9 days out from open reduction and internal fixation of a left bima lleolar ankle fracture with an underlying Lisfranc injury. Her foot and leg seemed to be a little bi t better after the splint has been removed. PLAN: From the orthopedic standpoint, we can leave this bandage in place. I need to see her back 2- 3 weeks out from surgery date. She should have a high-tide walking boot to wear whenever walking. S he should be nonweightbearing for now on the left leg for a total of 6 weeks. She is okay for discha rge any time medically stable. Any orthopedic questions can be directed to me at [phone]. Job ID: [id number]
[2021-03-26] MEDS: INSULIN GLARGINE SOLOSTAR 100 UNITS/ML 3 ML PEN SC SCH ×2 (08:20→08:44)
[2021-03-26] MEDS: MULTIVITAMIN TAB PO SCH (08:21)
[2021-03-26] MEDS: METOPROLOL SUCC 50MG EXT REL TAB PO SCH (08:21)
[2021-03-26] MEDS: DULoxetine HCL 60 MG CAP PO SCH (08:21)
[2021-03-26] MEDS: lisinopril 10 MG TAB PO SCH (08:21)
[2021-03-26] MEDS: ASPIRIN 81 MG ECTAB PO SCH (08:21)
[2021-03-26] MEDS: MAGNESIUM OXIDE 400 MG TAB PO SCH (08:21)
[2021-03-26] MEDS: GABAPENTIN 600 MG TAB PO SCH ×3 (08:21→20:36)
[2021-03-26] MEDS: FUROSEMIDE 20 MG TAB PO SCH (08:21)
[2021-03-26] MEDS: DULoxetine HCL 30 MG CAP PO SCH (08:21)
[2021-03-26] MEDS: PANTOprazole 40 MG TAB PO SCH (08:22)
[2021-03-26] MEDS: TOPIRAMATE 50 MG TAB PO SCH ×2 (08:22→20:36)
[2021-03-26] MEDS: INSULIN ASPART PER UNIT SC SCH ×4 (08:29→22:05)
[2021-03-26] MEDS: POLYETHYLENE (MIRALAX) 17 GM PACK PO SCH (08:30)
[2021-03-26] MEDS: DOCUSATE SODIUM 100 MG CAP PO SCH ×2 (08:30→20:39)
[2021-03-26] MEDS: POTASSIUM CHLORIDE CRTAB 20 MEQ TABCR PO SCH (08:30)
[2021-03-26] MEDS ORDERED: INSULIN GLARGINE SOLOSTAR 100 UNITS/ML 3 ML PEN SC ONE (12:30)
--- NOTE | 2021-03-26 14:49 | Hospitalist Progress Note ---
Date of Service March 26, 2021 Assessment & Plan (1) Fall: (2) Bimalleolar fracture of left ankle: (3) Diabetes mellitus, type 2: (4) Anemia: (5) Leukocytosis: (6) Coronary artery disease: (7) Hypertension: (8) Chronic congestive heart failure with left ventricular diastolic dysfunction: (9) Psychotic disorder: (10) Anxiety: (11) Tobacco use disorder: (12) Toxic encephalopathy: Plan: 1. Left ankle fracture Management per Ortho. S/p ORIF 2/2 Cardiology consulted for clearance, risk stratification and optimization. Appreciate input Unreliable historian in terms of pain. To avoid oversedation, IV dilaudid discontinued and oxycodone frequency reduced. Dr Garcia spoke with patient's daughter, she does have a history of pain medication abuse/overuse. Will continue scheduled tylenol 1000mg Q 8, Gabapentin to 800mg TID. PRN: Oxycodone 5mg - 10mg Q 6PRN for mod-severe pain. Ortho re-evaluation removed splint/Cast, NWB 6 weeks 2. Acute on chronic diastolic CHF -Euvolemic -continue lasix 60mg PO 3. Acute on chronic Anemia Most likely from acute blood loss with significant epistaxis recently (at least 5 times per day x 2 weeks) H&P noted, rectal exam in ER normal Received 2 units packed RBC 2/2 with appropriate response -H/H remains stable 4. Acute hypoxic respiratory failure -continue saline nasal spray, petroleum jelly into nares to help with comfort and prevent epistaxis - Encourage OOB to chair, incentive spirometry. Patient is 98% on 3L NC--> Now 92% on RA 5. Leukocytosis -Improved, not on antibiotics -Procalcitonin neg x 2, continue to monitor off antibiotics -repeat CBC, procalcitonin tomorrow 6. IDDM -agree with basal bolus regimen as currently ordered 7. CAD with prior CABG -continue metoprolol 50mg daily, aspirin, statin. Plavix was held on admission for surgery--> uncertain if she still needs to remain on DAPT-->Spoke with Perla Webb (patient's daughter), patient has not had any cardiac stents within past 1 year. While she is in the hospital and on SQ heparin, will continue to hold plavix. At discharge, she can be discharged back on aspirin and plavix and she will need to follow up with her OP statement services representative to discuss whether plavix should be discontinued. 8. Mood disorder continue Duloxetine, topiramate 50mg BID, seroquel reduced to 100mg QHS due to oversedation. Patient's mood is well controlled currently 9. DVT ppx -SQ heparin 10. Disposition -Evaluated by PT, recommending rehab Labs Checked Patient is medically stable for discharge to SNF/Rehab. Pending placement ROS-No Headache, No Visual Changes, No Nausea, No Vomiting, No Fever, No Chills, No Neck Pain or Stiffness, No Chest Pain, No Palpitations, No SOB, No COLLINS, No Cough, No Sputum, No Wheezing, No Abdominal Pain, No Diarrhea, No Hematemesis, No Hemoptysis, No Unexpected Weight Loss, No Flank pain, No Melena, No Hematochezia, No Frequency, No Urgency, No Burning, No Hematuria, No Rashes, No Diaphoresis. Appetite is Normal, Less leg pain Physical Exam Gen-AAO x 3, NAD, Afebrile Head-NCAT, EOMI, PERRLA, Anicteric Sclera, No Posterior Pharyngeal Erythema Neck-Supple, No JVD, No Thyromegaly, No Masses, No LAD, No Bruits Lungs-Clear to Auscultation Bilaterally, No Rales, No Rhonchi, No Wheezing, No Crepitus Chest-No S4, +S1, +S2, No S3, No Murmurs, No Rubs, No Gallops, No Ectopy Abdomen-Soft, Bowel Sounds Present, Non Tender, Non Distended, No Hepatomegaly, No Splenomegaly, No Palpable Masses, No Rebound, No Rigidity, No Guarding Musculoskeletal-Full Range of Motion Bilaterally, No CVAT Extremities-No Cyanosis, No Clubbing, No Edema, LLE casted Nuero-Cranial Nerves II-XII grossly intact, Motor WNL, DTRs WNL, Strength WNL, Non Focal Psych-Normal Mood Admission and Anticipated Discharge Date Admission Date: March 16, 2021 Subjective Patient seen today in her room she was sitting up in a chair eating breakfast. Denies any headache fevers or chills, Cast/splint off, walking boot soon, NWB 6 weeks Results & Data Results & Data ([facility]) Vital Signs (Past 12 Hours) Vital Signs Temp Pulse Resp BP Pulse Ox 02/11/22 08:34 36.8 C 98 H 17 118/77 96
[2021-03-26] MEDS: DONEPEZIL HCL 5 MG TAB PO SCH (20:34)
[2021-03-26] MEDS: QUEtiapine FUMARATE 100 MG TABLET PO SCH (20:34)
[2021-03-26] MEDS: SENNA 8.6 MG TAB PO SCH (20:34)
[2021-03-26] MEDS: ATORVASTATIN 40 MG TAB PO SCH (20:35)
[2021-03-27] MEDS: ACETAMINOPHEN 500 MG TAB PO SCH ×3 (06:16→21:23)
[2021-03-27] MEDS: HEPARIN SOD 5,000 UNIT/0.5 ML VIAL SQ SCH ×3 (06:18→21:26)
[2021-03-27] MEDS: INSULIN GLARGINE SOLOSTAR 100 UNITS/ML 3 ML PEN SC SCH (09:26)
[2021-03-27] MEDS: INSULIN ASPART PER UNIT SC SCH ×4 (09:31→22:19)
[2021-03-27] MEDS: TOPIRAMATE 50 MG TAB PO SCH ×2 (09:33→21:25)
[2021-03-27] MEDS: GABAPENTIN 600 MG TAB PO SCH ×3 (09:33→21:26)
[2021-03-27] MEDS: PANTOprazole 40 MG TAB PO SCH (09:34)
[2021-03-27] MEDS: MAGNESIUM OXIDE 400 MG TAB PO SCH (09:34)
[2021-03-27] MEDS: lisinopril 10 MG TAB PO SCH (09:35)
[2021-03-27] MEDS: DULoxetine HCL 30 MG CAP PO SCH (09:35)
[2021-03-27] MEDS: ASPIRIN 81 MG ECTAB PO SCH (09:35)
[2021-03-27] MEDS: DULoxetine HCL 60 MG CAP PO SCH (09:35)
[2021-03-27] MEDS: METOPROLOL SUCC 50MG EXT REL TAB PO SCH (09:36)
[2021-03-27] MEDS: MULTIVITAMIN TAB PO SCH (09:36)
[2021-03-27] MEDS: FUROSEMIDE 20 MG TAB PO SCH (09:37)
[2021-03-27] MEDS: POTASSIUM CHLORIDE CRTAB 20 MEQ TABCR PO SCH (09:42)
[2021-03-27] MEDS: POLYETHYLENE (MIRALAX) 17 GM PACK PO SCH (09:42)
[2021-03-27] MEDS: DOCUSATE SODIUM 100 MG CAP PO SCH ×2 (09:42→21:23)
[2021-03-27] MEDS: oxyCODONE HCL IR 5 MG TAB (IMMEDIATE RELEASE) PO PRN ×4 (09:55→23:09)
--- NOTE | 2021-03-27 11:28 | Hospitalist Progress Note ---
Date of Service March 27, 2021 Assessment & Plan (1) Fall: (2) Bimalleolar fracture of left ankle: (3) Diabetes mellitus, type 2: (4) Anemia: (5) Leukocytosis: (6) Coronary artery disease: (7) Hypertension: (8) Chronic congestive heart failure with left ventricular diastolic dysfunction: (9) Psychotic disorder: (10) Anxiety: (11) Tobacco use disorder: (12) Toxic encephalopathy: Plan: 1. Left ankle fracture Management per Ortho. s/p ORIF Cardiology consulted for clearance, risk stratification and optimization. Appreciate input Unreliable historian in terms of pain. To avoid oversedation, IV dilaudid discontinued and oxycodone frequency reduced. Dr Garcia spoke with patient's daughter, she does have a history of pain medication abuse/overuse. Will continue scheduled tylenol 1000mg Q 8, Gabapentin to 800mg TID. PRN: Oxycodone 5mg - 10mg Q 6PRN for mod-severe pain. Ortho re-evaluation removed splint/Cast, NWB 6 weeks 2. Acute on chronic diastolic CHF -Euvolemic -continue lasix 60mg PO 3. Acute on chronic Anemia Most likely from acute blood loss with significant epistaxis recently (at least 5 times per day x 2 weeks) H&P noted, rectal exam in ER normal Received 2 units packed RBC 2/2 with appropriate response -H/H remains stable 4. Acute hypoxic respiratory failure -continue saline nasal spray, petroleum jelly into nares to help with comfort and prevent epistaxis - Encourage OOB to chair, incentive spirometry. Patient is 98% on 3L NC--> Now 92% on RA 5. Leukocytosis -Improved, not on antibiotics -Procalcitonin neg x 2, continue to monitor off antibiotics -repeat CBC, procalcitonin tomorrow 6. IDDM -agree with basal bolus regimen as currently ordered 7. CAD with prior CABG -continue metoprolol 50mg daily, aspirin, statin. Plavix was held on admission for surgery--> uncertain if she still needs to remain on DAPT-->Spoke with Perla Webb (patient's daughter), patient has not had any cardiac stents within past 1 year. While she is in the hospital and on SQ heparin, will continue to hold plavix. At discharge, she can be discharged back on aspirin and plavix and she will need to follow up with her OP motor racer to discuss whether plavix should be discontinued. 8. Mood disorder continue Duloxetine, topiramate 50mg BID, seroquel reduced to 100mg QHS due to oversedation. Patient's mood is well controlled currently 9. DVT ppx -SQ heparin 10. Disposition -Evaluated by PT, recommending rehab Labs Checked Patient is medically stable for discharge to SNF/Rehab. Pending placement ROS-No Headache, No Visual Changes, No Nausea, No Vomiting, No Fever, No Chills, No Neck Pain or Stiffness, No Chest Pain, No Palpitations, No SOB, No COLLINS, No Cough, No Sputum, No Wheezing, No Abdominal Pain, No Diarrhea, No Hematemesis, No Hemoptysis, No Unexpected Weight Loss, No Flank pain, No Melena, No Hematochezia, No Frequency, No Urgency, No Burning, No Hematuria, No Rashes, No Diaphoresis. Appetite is Normal, +leg pain Physical Exam Gen-AAO x 3, NAD, Afebrile Head-NCAT, EOMI, PERRLA, Anicteric Sclera, No Posterior Pharyngeal Erythema Neck-Supple, No JVD, No Thyromegaly, No Masses, No LAD, No Bruits Lungs-Clear to Auscultation Bilaterally, No Rales, No Rhonchi, No Wheezing, No Crepitus Chest-No S4, +S1, +S2, No S3, No Murmurs, No Rubs, No Gallops, No Ectopy Abdomen-Soft, Bowel Sounds Present, Non Tender, Non Distended, No Hepatomegaly, No Splenomegaly, No Palpable Masses, No Rebound, No Rigidity, No Guarding Musculoskeletal-Full Range of Motion Bilaterally, No CVAT Extremities-No Cyanosis, No Clubbing, No Edema, LLE casted Nuero-Cranial Nerves II-XII grossly intact, Motor WNL, DTRs WNL, Strength WNL, Non Focal Psych-Normal Mood Admission and Anticipated Discharge Date Admission Date: March 16, 2021 Subjective Patient seen today in her room she was lying down in her bed with her head at the foost of the bed. Denies any headache fevers or chills, Cast/splint off, c/o LLE pain, NWB 6 weeks Results & Data Results & Data ([facility]) Vital Signs (Past 12 Hours) Vital Signs Temp Pulse Resp BP Pulse Ox 03/27/21 08:00 36.7 C 88 18 123/64 94
[2021-03-27] MEDS ORDERED: INSULIN GLARGINE SOLOSTAR 100 UNITS/ML 3 ML PEN SC ONE (12:30)
[2021-03-27] MEDS ORDERED: oxyCODONE HCL IR 5 MG TAB (IMMEDIATE RELEASE) PO STA (21:16)
[2021-03-27] MEDS: QUEtiapine FUMARATE 100 MG TABLET PO SCH (21:24)
[2021-03-27] MEDS: SENNA 8.6 MG TAB PO SCH (21:25)
[2021-03-27] MEDS: DONEPEZIL HCL 5 MG TAB PO SCH (21:26)
[2021-03-27] MEDS: ATORVASTATIN 40 MG TAB PO SCH (21:26)
[2021-03-28] MEDS: INSULIN ASPART PER UNIT SC SCH ×6 (01:34→21:15)
[2021-03-28] MEDS: ACETAMINOPHEN 500 MG TAB PO SCH ×3 (05:11→20:49)
[2021-03-28] MEDS: HEPARIN SOD 5,000 UNIT/0.5 ML VIAL SQ SCH ×3 (05:12→21:01)
[2021-03-28] MEDS: POLYETHYLENE (MIRALAX) 17 GM PACK PO SCH (08:46)
[2021-03-28] MEDS: oxyCODONE HCL IR 5 MG TAB (IMMEDIATE RELEASE) PO PRN ×3 (08:47→23:04)
[2021-03-28] MEDS: DOCUSATE SODIUM 100 MG CAP PO SCH ×2 (08:47→20:59)
[2021-03-28] MEDS: POTASSIUM CHLORIDE CRTAB 20 MEQ TABCR PO SCH (08:47)
[2021-03-28] MEDS: PANTOprazole 40 MG TAB PO SCH (08:50)
[2021-03-28] MEDS: GABAPENTIN 600 MG TAB PO SCH ×3 (08:50→21:01)
[2021-03-28] MEDS: lisinopril 10 MG TAB PO SCH (08:51)
[2021-03-28] MEDS: DULoxetine HCL 30 MG CAP PO SCH (08:51)
[2021-03-28] MEDS: METOPROLOL SUCC 50MG EXT REL TAB PO SCH (08:51)
[2021-03-28] MEDS: TOPIRAMATE 50 MG TAB PO SCH ×2 (08:51→21:00)
[2021-03-28] MEDS: MAGNESIUM OXIDE 400 MG TAB PO SCH (08:52)
[2021-03-28] MEDS: ASPIRIN 81 MG ECTAB PO SCH (08:52)
[2021-03-28] MEDS: FUROSEMIDE 20 MG TAB PO SCH (08:52)
[2021-03-28] MEDS: DULoxetine HCL 60 MG CAP PO SCH (08:52)
[2021-03-28] MEDS: MULTIVITAMIN TAB PO SCH (08:52)
[2021-03-28] MEDS ORDERED: INSULIN GLARGINE SOLOSTAR 100 UNITS/ML 3 ML PEN SC SCH (09:00)
--- NOTE | 2021-03-28 11:23 | Pharmacy Report ---
Pharmacy Glycemic Short Note 2 - Date of Service March 28, 2021 - Glycemic Short BSG Results (Last 24 hours): 03/27/21 03/27/21 03/27/21 12:11 12:13 13:52 POC Glucose 407 H* 382 H* 373 H* 03/27/21 03/27/21 03/28/21 17:37 20:35 01:21 POC Glucose 174 H 124 H 173 H 03/28/21 03/28/21 05:05 08:09 POC Glucose 154 H 192 H OUTPATIENT ANTIDIABETIC REGIMEN: * Basaglar 46 units SC AM * Novolog SSI (prescription last filled 09/2020) * HbA1c: 8.3% (03/17/21) ASSESSMENT: 03/28/21 * Patient's BSGs yesterday were [id number] and overnight were 173-154 mg/dL. Fasting today is 192 mg/dL. * Patient received 76 units of insulin yesterday (35 units of basal and 41 units of bolus). Patient received an extra 3 units of bolus overnight. * Start with Lantus 38 units today (total from yesterday plus 3 extra overnight). * Continue bolus as BSGs trended well yesterday. 03/24/21: * Ms Welch has been requiring ~60 units of insulin per day for the past several days. * Fasting BSG trending down (was 69 mg/dL this morning). Lantus dose reduced this morning. * Novolog parameters appear to be appropriate at this time. 03/21 * BSGs yesterday of 136, 227, 182, and 117 mg/dL, fasting BSG of 181 mg/dL this morning * Received 62 units of insulin (35 units of Lantus and 27 units of prandial/correctional bolus) * Will increase Lantus this morning and continue tightened Novolog parameters from yesterday 03/18 * Ms Welch was hyperglycemic post-op yesterday. BSGs have been reasonable thus far today. * Lantus transitioned back to QAM dosing this morning, for ease of discharge planning. * Novolog parameters were tightened last evening and appear to be appropriate. No further changes at this time. 03/17 * 60 yo F admitted yesterday secondary to mechanical fall with ankle fracture. Pharmacy has been consulted to assist with inpatient glycemic management. Patient is NPO for the OR later this afternoon. * BSGs last evening were elevated at 246-211 mg/dL. Patient received 14 units of Lantus at bedtime and 10 units of Novolog between dinner and bedtime. * Fasting BSG was 134 mg/dL this AM. Given NPO status decided to hold Lantus this morning. Will monitor perioperative steroid use and give NPH if necessary. Will give Lantus postoperatively once a diet is order. * Update: Lantus 14 units given prior to OR given elevated BSG around noon. * Novolog was initiated based on weight stress of 2-3. Continue for now. Targeting goal range of 110 - 140 mg/dL to promote wound healing and prevent postoperative infections. PLAN FOR INPATIENT GLYCEMIC CONTROL: * Basal insulin * Lantus 38 units SC daily * Bolus insulin * NovoLog per scale ACHS or Q6hrs while NPO * Goal Range: Low 110 mg/dL - High 140 mg/dL * Correction Factor: 25 mg/dL/unit * Nutritional / Prandial insulin per carb ratio of 1 unit per 7 grams CHO consumed PLAN FOR DISCHARGE: * A1c: 8.3% * This indicates suboptimal glycemic control in a 60yo patient. Goal A1c likely closer to 7.0%. * Suspect that pt may resume home regimen on discharge, as long as no contraindications are present. * Recommend prompt f/u with outpt provider after discharge to work toward optimizing A1c.
--- NOTE | 2021-03-28 11:31 | Hospitalist Progress Note ---
Date of Service March 28, 2021 Assessment & Plan (1) Fall: (2) Bimalleolar fracture of left ankle: (3) Diabetes mellitus, type 2: (4) Anemia: (5) Leukocytosis: (6) Coronary artery disease: (7) Hypertension: (8) Chronic congestive heart failure with left ventricular diastolic dysfunction: (9) Psychotic disorder: (10) Anxiety: (11) Tobacco use disorder: (12) Toxic encephalopathy: Plan: 1. Left ankle fracture Management per Ortho. s/p ORIF Cardiology consulted for clearance, risk stratification and optimization. Appreciate input Unreliable historian in terms of pain. To avoid oversedation, IV dilaudid discontinued and oxycodone frequency reduced. Dr Garcia spoke with patient's daughter, she does have a history of pain medication abuse/overuse. Will continue scheduled tylenol 1000mg Q 8, Gabapentin to 800mg TID. PRN: Oxycodone 5mg - 10mg Q 6PRN for mod-severe pain. Ortho re-evaluation removed splint/Cast, NWB 6 weeks 2. Acute on chronic diastolic CHF -Euvolemic -continue lasix 60mg PO 3. Acute on chronic Anemia Most likely from acute blood loss with significant epistaxis recently (at least 5 times per day x 2 weeks) H&P noted, rectal exam in ER normal Received 2 units packed RBC 2/2 with appropriate response -H/H remains stable 4. Acute hypoxic respiratory failure -continue saline nasal spray, petroleum jelly into nares to help with comfort and prevent epistaxis - Encourage OOB to chair, incentive spirometry. Patient is 98% on 3L NC--> Now 92% on RA 5. Leukocytosis -Improved, not on antibiotics -Procalcitonin neg x 2, continue to monitor off antibiotics -repeat CBC, procalcitonin tomorrow 6. IDDM -agree with basal bolus regimen as currently ordered 7. CAD with prior CABG -continue metoprolol 50mg daily, aspirin, statin. Plavix was held on admission for surgery--> uncertain if she still needs to remain on DAPT-->Spoke with Perla Webb (patient's daughter), patient has not had any cardiac stents within past 1 year. While she is in the hospital and on SQ heparin, will continue to hold plavix. At discharge, she can be discharged back on aspirin and plavix and she will need to follow up with her OP airline operations agent to discuss whether plavix should be discontinued. 8. Mood disorder continue Duloxetine, topiramate 50mg BID, seroquel reduced to 100mg QHS due to oversedation. Patient's mood is well controlled currently 9. DVT ppx -SQ heparin 10. Disposition -Evaluated by PT, recommending rehab Labs Checked Patient is medically stable for discharge to SNF/Rehab. Pending placement ROS-No Headache, No Visual Changes, No Nausea, No Vomiting, No Fever, No Chills, No Neck Pain or Stiffness, No Chest Pain, No Palpitations, No SOB, No COLLINS, No Cough, No Sputum, No Wheezing, No Abdominal Pain, No Diarrhea, No Hematemesis, No Hemoptysis, No Unexpected Weight Loss, No Flank pain, No Melena, No Hematochezia, No Frequency, No Urgency, No Burning, No Hematuria, No Rashes, No Diaphoresis. Appetite is Normal, +leg pain Physical Exam Gen-AAO x 3, NAD, Afebrile Head-NCAT, EOMI, PERRLA, Anicteric Sclera, No Posterior Pharyngeal Erythema Neck-Supple, No JVD, No Thyromegaly, No Masses, No LAD, No Bruits Lungs-Clear to Auscultation Bilaterally, No Rales, No Rhonchi, No Wheezing, No Crepitus Chest-No S4, +S1, +S2, No S3, No Murmurs, No Rubs, No Gallops, No Ectopy Abdomen-Soft, Bowel Sounds Present, Non Tender, Non Distended, No Hepatomegaly, No Splenomegaly, No Palpable Masses, No Rebound, No Rigidity, No Guarding Musculoskeletal-Full Range of Motion Bilaterally, No CVAT Extremities-No Cyanosis, No Clubbing, No Edema, LLE casted Nuero-Cranial Nerves II-XII grossly intact, Motor WNL, DTRs WNL, Strength WNL, Non Focal Psych-Normal Mood Admission and Anticipated Discharge Date Admission Date: March 16, 2021 Subjective Patient seen today in her room. Denies any headache fevers or chills, Cast/splint off, c/o LLE pain, NWB 6 weeks Results & Data Results & Data ([facility]) Vital Signs (Past 12 Hours) Vital Signs Temp Pulse Resp BP Pulse Ox 03/28/21 07:30 36.8 C 79 18 144/79 H 97
[2021-03-28] MEDS: SENNA 8.6 MG TAB PO SCH (20:59)
[2021-03-28] MEDS: ATORVASTATIN 40 MG TAB PO SCH (21:00)
[2021-03-28] MEDS: QUEtiapine FUMARATE 100 MG TABLET PO SCH (21:00)
[2021-03-28] MEDS: DONEPEZIL HCL 5 MG TAB PO SCH (21:00)
[2021-03-29] MEDS: ACETAMINOPHEN 500 MG TAB PO SCH ×2 (05:08→14:17)
[2021-03-29] MEDS: HEPARIN SOD 5,000 UNIT/0.5 ML VIAL SQ SCH ×2 (05:08→14:18)
[2021-03-29] MEDS ORDERED: INSULIN GLARGINE SOLOSTAR 100 UNITS/ML 3 ML PEN SC SCH (09:00)
[2021-03-29] MEDS: oxyCODONE HCL IR 5 MG TAB (IMMEDIATE RELEASE) PO PRN ×2 (09:30→16:11)
[2021-03-29] MEDS: MULTIVITAMIN TAB PO SCH (09:32)
[2021-03-29] MEDS: MAGNESIUM OXIDE 400 MG TAB PO SCH (09:32)
[2021-03-29] MEDS: METOPROLOL SUCC 50MG EXT REL TAB PO SCH (09:32)
[2021-03-29] MEDS: ASPIRIN 81 MG ECTAB PO SCH (09:33)
[2021-03-29] MEDS: DULoxetine HCL 30 MG CAP PO SCH (09:33)
[2021-03-29] MEDS: lisinopril 10 MG TAB PO SCH (09:33)
[2021-03-29] MEDS: DULoxetine HCL 60 MG CAP PO SCH (09:33)
[2021-03-29] MEDS: PANTOprazole 40 MG TAB PO SCH (09:33)
[2021-03-29] MEDS: GABAPENTIN 600 MG TAB PO SCH ×2 (09:33→14:17)
[2021-03-29] MEDS: FUROSEMIDE 20 MG TAB PO SCH (09:33)
[2021-03-29] MEDS: DOCUSATE SODIUM 100 MG CAP PO SCH (09:36)
[2021-03-29] MEDS: TOPIRAMATE 50 MG TAB PO SCH (09:36)
[2021-03-29] MEDS: POLYETHYLENE (MIRALAX) 17 GM PACK PO SCH (09:36)
[2021-03-29] MEDS: INSULIN ASPART PER UNIT SC SCH ×2 (09:39→12:48)
[2021-03-29] MEDS: POTASSIUM CHLORIDE CRTAB 20 MEQ TABCR PO SCH (09:41)
--- NOTE | 2021-03-29 12:28 | Discharge Summary ---
Date of Service March 29, 2021 Admission HPI Per Admitting Provider This is a 60-year-old female with PMH of type 2 diabetes with diabetic neuropathy, chronic diastolic heart failure, hypertension, CAD (with h/o CABG 10 years ago), tobacco use, history of mood disorder with psychosis and other medical problems listed below who presents after fall at home earlier today. Patient has been living alone but roommate just moved in. Was walking from kitchen to the living room when her "legs collapsed from under her" and she fell onto her left side. Had significant ankle pain from that point forward. Was able to crawl over and rest on the sofa until daughter called EMS and patient brought to ED for further evaluation. History primarily obtained from chart and daughter at bedside due to patient's lethargic state after narcotic medication. Does have history of right bimalleolar ankle fracture after a fall requiring admission and operative repair by Dr. Srinath lomeli in 2017. Was then admitted to the behavioral unit for involuntary admission where she underwent multiple med ication adjustments. Continues to struggle with intermittent hallucinations, per daughter. Has recently been fixated on the idea that she has scabies and bugs crawling on her. Was evaluated by dermatology recently and she does not have scabies. Unable to obtain ROS due to patient's lethargic state. Follows with Christiano Simon PA-C at [facility] in [place]. Admission Exam Per Admitting Provider General Appearance:WD/WN, vitals as above, NAD, lying in bed, lethargic but arousable Head: normocephalic, atraumatic Eyes:normal inspection, PERRL, conjunctivae normal, anicteric sclerae ENT: external ear and nose normal, oropharynx normal Neck: normal visual inspection, trachea midline, no thyromegaly Respiratory:normal respiratory effort, lungs clear to auscultation, no wheeze, rales, rhonchi. No accessory muscle use Cardiovascular: regular rate, rhythm, no murmur, normal peripheral pulses, no BLE edema. Vessels: no JVD Chest: normal inspection of chest Abdomen/GI: normal bowel sounds, soft, nontender, no hepatosplenomegaly Extremities/Musculoskeletal:LLE in immobilizer, NVI. No cyanosis or clubbing, extremities motor strength 5/5 Neurologic: PERRL, EOMI, able to follow basic commands on exam but limited due to lethargy. Moves all extremities Skin: no rashes, normal color, warm/dry Principal Diagnosis (1) Fall: (2) Bimalleolar fracture of left ankle: (3) Diabetes mellitus, type 2: (4) Anemia: (5) Leukocytosis: (6) Coronary artery disease: (7) Hypertension: (8) Chronic congestive heart failure with left ventricular diastolic dysfunction: (9) Psychotic disorder: (10) Anxiety: (11) Tobacco use disorder: (12) Toxic encephalopathy: Discharge Exam See below Discharge Data Allergies Allergy/AdvReac Type Severity Reaction Status Date / Time latex Allergy Mild Rash Verified 03/16/21 17:36 aspirin Allergy Unknown UNKNOWN Verified 03/16/21 17:36 oxycodone AdvReac Intermediate HALLUCINATI Verified 03/16/21 17:36 ONS Consultations 03/16/21 17:39 ED Decision to Admit Stat 03/16/21 19:11 Consult Orthopedic Surgery Routine 03/17/21 09:06 Consult Cardiology Routine Procedures Performed Operation Date: 03/17/21 14:45 Actual Procedures p Left Open Reduction Internal Fixation Ankle Bimalleolar Fracture(Left) - Casa Yo MD Current Diagnoses Anemia, unspecified (03/16/21) Elevated white blood cell count, unspecified (03/16/21) Type 2 diabetes mellitus without complications (03/16/21) Nicotine dependence, unspecified, uncomplicated (03/16/21) Unspecified psychosis not due to a substance or known physiological condition (03/16/21) Anxiety disorder, unspecified (03/16/21) Unspecified toxic encephalopathy (03/16/21) Essential (primary) hypertension (03/16/21) Atherosclerotic heart disease of [place] coronary artery without angina pectoris (03/16/21) Nonrheumatic mitral (valve) insufficiency (03/16/21) Left bundle-branch block, unspecified (03/16/21) Unspecified diastolic (congestive) heart failure (03/16/21) Chronic diastolic (congestive) heart failure (03/16/21) Occlusion and stenosis of unspecified carotid artery (03/16/21) Displaced bimalleolar fracture of left lower leg, initial encounter for closed fracture (03/16/21) Unspecified fall, initial encounter (03/16/21) Encounter for preprocedural cardiovascular examination (03/16/21) Encounter for other preprocedural examination (03/16/21) Allergies latex Allergy (Mild, Verified 03/16/21 17:36) Rash aspirin Allergy (Unknown, Verified 03/16/21 17:36) UNKNOWN oxycodone Adverse Reaction (Intermediate, Verified 03/16/21 17:36) HALLUCINATIONS Height/Weight/Isolation Height 5 ft 3 in Weight 76.2 kg Ordered Studies 03/16/21 13:55 CT cervical spine wo con Stat CT head/brain wo con Stat 03/16/21 16:01 CT abd pelvis IV con only Stat CT chest diagnostic w con Stat 03/17/21 12:30 FL ankle LT min 3V RTN Routine 03/17/21 12:59 US - OR guided needle placemen Routine 03/18/21 16:11 US carotid doppler BI Routine Hospital Course (1) Fall: (2) Bimalleolar fracture of left ankle: (3) Diabetes mellitus, type 2: (4) Anemia: (5) Leukocytosis: (6) Coronary artery disease: (7) Hypertension: (8) Chronic congestive heart failure with left ventricular diastolic dysfunction: (9) Psychotic disorder: (10) Anxiety: (11) Tobacco use disorder: (12) Toxic encephalopathy: 1. Left ankle fracture Management per Ortho. s/p ORIF Cardiology consulted for clearance, risk stratification and optimization. Appreciate input Unreliable historian in terms of pain. To avoid oversedation, IV dilaudid discontinued and oxycodone frequency reduced. Dr Garcia spoke with patient's daughter, she does have a history of pain medication abuse/overuse. Will continue scheduled tylenol 1000mg Q 8, Gabapentin to 800mg TID. PRN: Oxycodone 5mg - 10mg Q 6PRN for mod-severe pain. Ortho re-evaluation removed splint/Cast, NWB 6 weeks 2. Acute on chronic diastolic CHF -Euvolemic -continue lasix 60mg PO 3. Acute on chronic Anemia Most likely from acute blood loss with significant epistaxis recently (at least 5 times per day x 2 weeks) H&P noted, rectal exam in ER normal Received 2 units packed RBC 2/2 with appropriate response -H/H remains stable 4. Acute hypoxic respiratory failure -continue saline nasal spray, petroleum jelly into nares to help with comfort and prevent epistaxis - Encourage OOB to chair, incentive spirometry. Patient is 98% on 3L NC--> Now 92% on RA 5. Leukocytosis -Improved, not on antibiotics -Procalcitonin neg x 2, continue to monitor off antibiotics -repeat CBC, procalcitonin tomorrow 6. IDDM -agree with basal bolus regimen as currently ordered 7. CAD with prior CABG -continue metoprolol 50mg daily, aspirin, statin. Plavix was held on admission for surgery--> uncertain if she still needs to remain on DAPT-->Spoke with Perla Webb (patient's daughter), patient has not had any cardiac stents within past 1 year. While she is in the hospital and on SQ heparin, will continu e to hold plavix. At discharge, she can be discharged back on aspirin and plavix and she will need to follow up with her OP card player to discuss whether plavix should be discontinued. 8. Mood disorder continue Duloxetine, topiramate 50mg BID, seroquel reduced to 100mg QHS due to oversedation. Patient's mood is well controlled currently 9. DVT ppx -SQ heparin 10. Disposition -Evaluated by PT, recommending rehab Patient is medically stable for discharge to Home c HHC/HPT/HOT ROS-No Headache, No Visual Changes, No Nausea, No Vomiting, No Fever, No Chills, No Neck Pain or Stiffness, No Chest Pain, No Palpitations, No SOB, No COLLINS, No Cough, No Sputum, No Wheezing, No Abdominal Pain, No Diarrhea, No Hematemesis, No Hemoptysis, No Unexpected Weight Loss, No Flank pain, No Melena, No Hematochezia, No Frequency, No Urgency, No Burning, No Hematuria, No Rashes, No Diaphoresis. Appetite is Normal, +leg pain Physical Exam Gen-AAO x 3, NAD, Afebrile Head-NCAT, EOMI, PERRLA, Anicteric Sclera, No Posterior Pharyngeal Erythema Neck-Supple, No JVD, No Thyromegaly, No Masses, No LAD, No Bruits Lungs-Clear to Auscultation Bilaterally, No Rales, No Rhonchi, No Wheezing, No Crepitus Chest-No S4, +S1, +S2, No S3, No Murmurs, No Rubs, No Gallops, No Ectopy Abdomen-Soft, Bowel Sounds Present, Non Tender, Non Distended, No Hepatomegaly, No Splenomegaly, No Palpable Masses, No Rebound, No Rigidity, No Guarding Musculoskeletal-Full Range of Motion Bilaterally, No CVAT Extremities-No Cyanosis, No Clubbing, No Edema, LLE casted Nuero-Cranial Nerves II-XII grossly intact, Motor WNL, DTRs WNL, Strength WNL, Non Focal Psych-Normal Mood Total Time Total Time Spent Total Time Spent (In Minutes): 45 mins Total Time Includes: Examination of the Patient, Discharge Planning, Medication Reconciliation and Communication With Other Providers Discharge Plan Discharge Items Patient Disposition: Home - Home Health Services Reason For Visit: FALL, L ANKLE FRACTURE, HYPERGLYCEMIA, Discharge Diagnosis: ORIF Left Ankle Fracture Left Lis Franc Fracture - foot Condition on Discharge: Good Health Concerns: Non weight Bearing Left Leg for 6 weeks Activity: Per Instructions section Lifting: None Bathing: No limitations Bathing Comment: Keep Left Leg dry Exercise/Sports: None Driving/Machine Use: None Weightbearing: Left non-weightbearing Weightbearing Comment: Non Weightbearing left foot/leg for 6 weeks Non-emergency contact: Primary Care Provider and Specialist Call non-emergency contact if: you have any medication questions Follow-up/Referrals: Christiano Simon PA-C [Primary Care Provider] - 04/01/21 10:00 am Casa Yo MD [Physician] - (2-3 wewks from surgery date.) Diet: Carb Consistent or DM2 and Heart Healthy Addtl Attending Provider Instructions: Keep dressing and splint clean, dry, and in place until return to clinic appointment Non-weightbearing on leftl leg for 6 weeks DC with Home Manish, Home PT/OT eval and Treat Pending Studies at Discharge: No Stand-Alone Forms: My [facility] [employer], Opioid Pain Management, Smoking Cessation Medications and DC Order Prescriptions: New acetaminophen [Tylenol Extra Strength] 500 mg Tablet 500 mg PO Q4 Qty: 100 RF: 0 oxycodone 5 mg Tablet 5 mg PO QID PRN (Reason: pain) Qty: 60 RF: 0 bisacodyl 10 mg Suppository 10 mg PA DAILY PRN (Reason: constipation) Qty: 50 RF: 0 polyethylene glycol 3350 [Miralax] 17 gram Powder In Packet 17 g PO DAILY Qty: 30 RF: 0 potassium chloride 20 mEq Tablet,Er Particles/Crystals 40 meq PO QAM Qty: 30 RF: 0 magnesium oxide 400 mg (241.3 mg magnesium) Tablet 400 mg PO QAM Qty: 30 RF: 0 magnesium hydroxide [Milk of Magnesia] 400 mg/5 mL Suspension 30 ml PO Q6H PRN (Reason: stomach upset) Qty: 300 RF: 0 docusate sodium 100 mg Capsule 100 mg PO BID PRN (Reason: Constipation) Qty: 60 RF: 0 sennosides [Senokot] 8.6 mg Tablet 17.2 mg PO HS Qty: 60 RF: 0 multivitamin with folic acid [Daily-Hardik (with folic acid)] 400 mcg Tablet 1 tab PO QAM Qty: 30 RF: 0 Continued atorvastatin 80 mg tablet 80 mg PO HS RF: 0 donepezil 5 mg tablet 5 mg PO HS RF: 0 metoprolol succinate 50 mg tablet extended release 24 hr 50 mg PO DAILY RF: 0 quetiapine 200 mg tablet 200 mg PO HS RF: 0 clopidogrel 75 mg tablet 75 mg PO DAILY RF: 0 lisinopril 10 mg tablet 10 mg PO DAILY RF: 0 gabapentin 300 mg capsule See Rx Instructions .ROUTE .COMPLEX RF: 0 omeprazole 20 mg capsule,delayed release(DR/EC) 20 mg PO DAILY RF: 0 furosemide 20 mg tablet 60 mg PO DAILY RF: 0 topiramate 50 mg tablet 50 mg PO BID RF: 0 duloxetine 30 mg capsule,delayed release(DR/EC) 30 mg PO QAM RF: 0 duloxetine 60 mg capsule,delayed release(DR/EC) 60 mg PO QAM RF: 0 Basaglar KwikPen U-100 Insulin 100 unit/mL (3 mL) insulin pen 46 unit SUBCUT QAM RF: 0 aspirin 81 mg Tablet 81 mg PO DAILY RF: 0 Discontinued tramadol 50 mg tablet 50 mg PO Q6H PRN (Reason: Pain) RF: 0 Discharge Orders: Discharge Order (Routine); Ordered 03/29/21 Ordered By: Keon Aragon/Other Patient Handouts: High Blood Sugar (Hyperglycemia), Managing Type 2 Diabetes, Special Foot Care for Diabetes Admission Data Admit Date/Time: 03/16/21 19:19 Attending Provider: Keon Thomson Admit Provider: Marci Kiser Primary Care Provider: Christiano Simon Other Providers: Marci Kiser ; Ananda Snow ; Gómez Nichole ; Casa Fuller ; Zafar Cota ; Tyree Combs ; Frantz Villasenor ; Bird Guzman ; Madison Borden ; Meagan Carrasquillo ; Mary Ellen Ortiz ; Isma Santos ; Barbara Garcia ; [facility] ; [facility]
== END 2021-03-29 16:54 | disposition home health service (06) | DRG 492 ==
LOC: ED 13:26 → SUATTDRO 19:19 → 2N 19:19 → 3W 03-21 16:04

== ENCOUNTER 2021-05-14 17:58 | Inpatient (IN) ==
--- NOTE | 2021-05-14 18:15 | Emergency Department Note ---
History of Present Illness General Chief complaint: Altered Mental Status Time Seen by Provider: 05/14/21 18:04 Source: EMS and RN notes reviewed History of Present Illness Provider complaint: Altered mental status Onset (ago): unknown Associated symptoms: + confusion; no chest pain, no cough, no fever/chills, no headaches, no nausea/vomiting or no shortness of breath 60-year-old female with history of diabetes and psychotic disorder presents emergency department for altered mental status. EMS reports that the patient was altered today and her home health aide that she is more confused than normal so called EMS. EMS reports when they arrived the blood sugar was critical high. Patient's oxygen saturation was 90% on room air. Patient is stating that she fell 2 days ago. Home Medications Medication Instructions Recorded Confirmed Type aspirin 81 mg tablet 81 mg PO DAILY 03/16/21 05/13/21 History atorvastatin 80 mg tablet 80 mg PO HS 03/16/21 05/13/21 History clopidogrel 75 mg tablet 75 mg PO DAILY 03/16/21 05/13/21 History donepezil 5 mg tablet 5 mg PO HS 03/16/21 05/13/21 History duloxetine 30 mg capsule,delayed 30 mg PO QAM 03/16/21 05/13/21 History release duloxetine 60 mg capsule,delayed 60 mg PO QAM 03/16/21 05/13/21 History release furosemide 20 mg tablet 60 mg PO DAILY 03/16/21 05/13/21 History gabapentin 300 mg capsule See Rx Instructions .ROUTE .COMPLEX 03/16/21 05/13/21 History insulin glargine 100 unit/mL (3 46 unit SUBCUT QAM 03/16/21 05/13/21 History mL) subcutaneous pen (Karsonaglmarta Diaz U-100 Insulin) lisinopril 10 mg tablet 10 mg PO DAILY 03/16/21 05/13/21 History metoprolol succinate 50 mg 50 mg PO DAILY 03/16/21 05/13/21 History tablet,extended release 24 hr omeprazole 20 mg capsule,delayed 20 mg PO DAILY 03/16/21 05/13/21 History release quetiapine 200 mg tablet 200 mg PO HS 03/16/21 05/13/21 History topiramate 50 mg tablet 50 mg PO BID 03/16/21 05/13/21 History acetaminophen 500 mg tablet 500 mg PO Q4 #100 tab 03/29/21 05/13/21 Rx (Tylenol Extra Strength) bisacodyl 10 mg rectal suppository 10 mg RI DAILY PRN #50 ea 03/29/21 05/13/21 Rx docusate sodium 100 mg capsule 100 mg PO BID PRN #60 cap 03/29/21 05/13/21 Rx magnesium hydroxide 400 mg/5 mL 30 ml PO Q6H PRN #300 ml 03/29/21 05/13/21 Rx oral suspension (Milk of Magnesia) magnesium oxide 400 mg (241.3 mg 400 mg PO QAM #30 tab 03/29/21 05/13/21 Rx magnesium) tablet multivitamin with folic acid 400 1 tab PO QAM #30 tab 03/29/21 05/13/21 Rx mcg tablet (Daily-Hardik (with folic acid)) oxycodone 5 mg tablet 5 mg PO QID PRN #60 tab 03/29/21 05/13/21 Rx polyethylene glycol 3350 17 gram 17 g PO DAILY #30 ea 03/29/21 05/13/21 Rx oral powder packet (Miralax) potassium chloride 20 mEq 40 meq PO QAM #30 tab 03/29/21 05/13/21 Rx tablet,extended release(part/cryst) sennosides 8.6 mg tablet (Senokot) 17.2 mg PO HS #60 tab 03/29/21 05/13/21 Rx cephalexin 500 mg capsule 500 mg PO Q6 30 Days #120 cap 05/13/21 05/13/21 Rx Allergies Allergy/AdvReac Type Severity Reaction Status Date / Time latex Allergy Mild Rash Verified 03/16/21 17:36 aspirin Allergy Unknown UNKNOWN Verified 03/16/21 17:36 oxycodone AdvReac Intermediate HALLUCINATI Verified 03/16/21 17:36 ONS Past Med/Surg History Medical History Anxiety Carpal tunnel syndrome, left Chronic congestive heart failure with left ventricular diastolic dysfunction Coronary artery disease Diabetes mellitus, type 2 Psychotic disorder Tobacco use disorder Ulnar neuropathy at elbow of left upper extremity Surgical History Status post cholecystectomy Status post coronary artery bypass grafting Status post hysterectomy Status post ORIF of fracture of ankle R, 2017 Family History Other Diabetes Heart disease Social History Smoking Status: Current every day smoker Tobacco Type: Cigarettes packs per day: 1; Years Smoked: 35; Second Hand Exposure: Yes; Hx Alcohol Use: No Hx Substance Use: No Preferred Language: Estonian Communication Ability: Effective Buggy Loader Required: No Beliefs That Will Affect Care: Yarsanism marital status: Current Living Situation: Alone Current Living Situation Comment: roommate just moved in recently Feels Safe at Home: Yes Assistive Devices: Brace/Splint/Immobilizer Review of Systems A total of 10 systems reviewed and were otherwise negative Physical Exam Vital Signs Vital Signs - 24 hr 05/14/21 18:07 05/14/21 18:09 05/14/21 18:26 Temperature 37.1 C Temperature Source Oral Pulse Rate 85 86 Pulse Rate from SpO2 Sensor Pulse Rhythm Regular Pulse Strength Normal Respiratory Rate 18 23 Respiratory Effort / Characteristics Non-Labored Spontaneous Respiratory Depth Normal Respiratory Pattern Regular Blood Pressure 131/68 Blood Pressure Mean 89 Blood Pressure Position Lying Pulse Oximetry 92 94 Oxygen Delivery Method Room Air Room Air Sepsis Recent Fever Within 48 Hours No Sepsis New/Unexplained Change in Mental Status N/A Sepsis Action Taken by Nursing No Action Required 05/14/21 18:30 05/14/21 19:00 05/14/21 19:30 Temperature Temperature Source Pulse Rate 88 92 H Pulse Rate from SpO2 Sensor 92 H Pulse Rhythm Pulse Strength Respiratory Rate 29 H 23 Respiratory Effort / Characteristics Respiratory Depth Respiratory Pattern Blood Pressure Blood Pressure Mean Blood Pressure Position Pulse Oximetry 88 L Oxygen Delivery Method Sepsis Recent Fever Within 48 Hours Sepsis New/Unexplained Change in Mental Status Sepsis Action Taken by Nursing 05/14/21 19:33 Temperature Temperature Source Pulse Rate 90 Pulse Rate from SpO2 Sensor 90 Pulse Rhythm Pulse Strength Respiratory Rate 32 H Respiratory Effort / Characteristics Respiratory Depth Respiratory Pattern Blood Pressure 147/76 H Blood Pressure Mean 99 Blood Pressure Position Pulse Oximetry 91 Oxygen Delivery Method Sepsis Recent Fever Within 48 Hours Sepsis New/Unexplained Change in Mental Status Sepsis Action Taken by Nursing Physical Exam GENERAL: Disheveled. HENT: Exam performed. -Head: Normocephalic and atraumatic. -Right Ear: External ear normal. No mastoid tenderness. -Left Ear: External ear normal. No mastoid tenderness. -Mouth/Throat: The oropharynx is clear and moist. No trismus in the jaw. No dental abscesses or uvula swelling. No oropharyngeal exudate or tonsillar abscesses. EYES: Conjunctivae and EOM are normal. Pupils are equal, round, and reactive to light. Right eye exhibits no discharge. Left eye exhibits no discharge. No scleral icterus. NECK: Normal range of motion. Neck supple. No JVD present. No spinous process tenderness present. No carotid bruit present. No rigidity. No tracheal deviation and normal range of motion present. No Brudzinski's sign and no Kernig's sign noted. CV: Normal rate, regular rhythm, normal heart sounds and intact distal pulses. There is no peripheral edema. Palpable radial pulses bue. PULM/CHEST: Rhonchi bilaterally ABD: The abdomen is soft. Bowel sounds are normal. She has no distension. No mass is present. There is no tenderness. There is no rebound, no guarding, no Grewal's sign and no tenderness at McBurney's point. Rovsig negative MUSC/SKEL: Brace on the left ankle. LYMPH: No cervical adenopathy. NEURO: She is alert and oriented to person, place, not to time. She has normal strength. No cranial nerve deficit or sensory deficit. Course Course 1803: The patient was evaluated in room A11. A complete history and physical exam was performed Cardiac monitoring: An order was placed for continuous cardiac monitoring. The monitor shows a rate of 80 with sinus rhythm 1817: EMR reviewed. Patient had an echo done on March 17, 2021 and showed an ejection fraction of 65%. 2038: Vital signs stable. Labs show white blood cell count of 24.7. Hemoglobin 7.7. Patient's hemoglobin usually runs around 10. Rectal exam was performed with female nursing auto carrier driver Karina at bedside. Hemoccult negative. Blood gas appears to be venous. Sodium 128. Potassium 2.7. Potassium will be replaced in the emergency department. Patient's glucose 544. No anion gap elevation or osmolar gap. Troponin 0 0.06. Urinalysis negative. Chest x-ray and pelvis x- ray negative. CT of the head within normal limits. Patient will be admitted to the [facility] team. Empiric antibiotics given. Discussed case with Dr. Gudino. We will hold off on insulin drip at this point as patient does not have HHS or DKA. Administered Medications Sodium Chloride (Nss 1000ml) 1,000 mls @ 125 mls/hr IV .Q8H SAMANTHA Stop: 06/13/21 18:29 Last Admin: 05/14/21 18:35 Dose: 125 mls/hr Documented by: [id number] Vancomycin HCl 1,500 mg/ (Sodium Chloride) 530 mls @ 200 mls/hr IV NOW ONE Stop: 05/14/21 22:35 Last Admin: 05/14/21 20:43 Dose: 200 mls/hr Documented by: [id number] Discontinued Medications Cefepime HCl (Maxipime) 2,000 mg in 20 mls @ 5 mls/min IV NOW STA; Protocol Stop: 05/14/21 20:00 Last Admin: 05/14/21 20:19 Dose: 5 mls/min Documented by: [id number] Medical Decision Making Laboratory Data Result diagrams: 05/14/21 18:10 05/14/21 18:10 Lab Results 05/14/21 05/14/21 05/14/21 Range/Units 18:10 18:10 18:10 WBC 24.76 H (4.8-10.8) K/uL RBC 3.01 L (4.2-5.4) M/uL Hgb 7.7 L (12.0-16.0) g/dL Hct 25.8 L (37-47) % MCV 85.7 (80-100) fL MCH 25.6 (25-34) pg MCHC 29.8 L (32-36) g/dL RDW Std Deviation 59.8 H (36.4-46.3) fL RDW Coeff of Fabio 19.4 H (11.5-14.5) % Plt Count 304 (130-400) K/uL MPV 10.6 H (7.4-10.4) fL Immature Gran % (Auto) 1.2 % Neut % (Auto) 85.2 % Lymph % (Auto) 6.9 % Sampson % (Auto) 6.6 % Eos % (Auto) 0.0 % Baso % (Auto) 0.1 % Neut # (Auto) 21.09 H (1.4-6.5) K/uL Lymph # (Auto) 1.70 (1.2-3.4) K/uL Sampson # (Auto) 1.64 H (0.11-0.59) K/uL Eos # (Auto) 0.01 (0-0.5) K/uL Baso # (Auto) 0.03 (0-0.2) K/uL Immature Gran # (Auto) 0.29 H (0.00-0.02) K/uL Absolute Nucleated RBC 0.07 H (0-0) K/uL Nucleated RBC % (auto) 0.3 % Hypochromasia Present Anisocytosis Present PT 12.9 H (9.0-12.0) Seconds INR 1.2 H (0.9-1.1) APTT 33.0 H (21.0-31.0) Seconds PTT Ratio 1.2 ABG pH (7.35-7.45) ABG pCO2 (35-46) mmHg ABG pO2 (80-95) mmHg ABG HCO3 (19-24) mmol/L ABG O2 Saturation (90-95) % ABG Base Excess (-9-1.8) mEq/L Christopher Test (Pos) Barometric Pressure mm/Hg Oxygen Given Sodium 128 L (136-145) mmol/L Potassium 2.7 L (3.5-5.1) mmol/L Chloride 96 L (98-107) mmol/L Carbon Dioxide 25 (21-32) mmol/L Anion Gap 7 (3-11) BUN 14 (6-23) mg/dl Creatinine 0.99 (0.6-1.2) mg/dl Est Cr Clr Drug Dosing 59.8 ml/min Est GFR ( Amer) 70.8 ml/min Est GFR (Non-Af Amer) 61.1 ml/min BUN/Creatinine Ratio 14.1 (10-20) Glucose 544 H* (70-99(Fasting)) mg/dl POC Glucose (70-99) mg/dl Osmolality (280-300) mOsm/kg Lactate (0.4-2.0) mmol/L Calcium 7.6 L (8.5-10.1) mg/dl Magnesium 1.7 (1.7-2.4) mg/dl Total Bilirubin 0.8 (0.2-1.0) mg/dl Direct Bilirubin 0.2 (0-0.2) mg/dl AST 44 H (13-39) U/L ALT 41 (7-52) U/L Alkaline Phosphatase 112 H (34-104) U/L Ammonia (18-72) umol/L Troponin I 0.06 H* (0-0.04) ng/ml Total Protein 6.5 (6.0-8.3) gm/dl Albumin 2.7 L (3.4-5.0) gm/dl Lipase 10 L (11-82) U/L Urine Color Urine Appearance (Clear) Urine pH (4.5-7.5) Ur Specific [place] (1.000-1.030) Urine Protein (Negative) Urine Glucose (UA) (Negative) Urine Ketones (Negative) Urine Blood (Negative) Urine Nitrite (Negative) Urine Bilirubin (Negative) Urine Urobilinogen (Negative) Ur Leukocyte Esterase (Negative) Urine WBC (Auto) (0-5) /hpf Urine RBC (Auto) (0-4) /hpf U Hyaline Cast (Auto) (0-5) /lpf U Epithel Cells (Auto) (0-5) /lpf Urine Bacteria (Auto) (Negative) Salicylates (3.0-30) mg/dl Acetaminophen (10-30) ug/ml Influ A Molecular Assay (Negative) Influ B Molecular Assay (Negative) SARS-CoV-2, RNA, NAAT (NEGATIVE) 05/14/21 05/14/21 05/14/21 Range/Units 18:10 18:10 18:14 WBC (4.8-10.8) K/uL RBC (4.2-5.4) M/uL Hgb (12.0-16.0) g/dL Hct (37-47) % MCV (80-100) fL MCH (25-34) pg MCHC (32-36) g/dL RDW Std Deviation (36.4-46.3) fL RDW Coeff of Fabio (11.5-14.5) % Plt Count (130-400) K/uL MPV (7.4-10.4) fL Immature Gran % (Auto) % Neut % (Auto) % Lymph % (Auto) % Sampson % (Auto) % Eos % (Auto) % Baso % (Auto) % Neut # (Auto) (1.4-6.5) K/uL Lymph # (Auto) (1.2-3.4) K/uL Sampson # (Auto) (0.11-0.59) K/uL Eos # (Auto) (0-0.5) K/uL Baso # (Auto) (0-0.2) K/uL Immature Gran # (Auto) (0.00-0.02) K/uL Absolute Nucleated RBC (0-0) K/uL Nucleated RBC % (auto) % Hypochromasia Anisocytosis PT (9.0-12.0) Seconds INR (0.9-1.1) APTT (21.0-31.0) Seconds PTT Ratio ABG pH (7.35-7.45) ABG pCO2 (35-46) mmHg ABG pO2 (80-95) mmHg ABG HCO3 (19-24) mmol/L ABG O2 Saturation (90-95) % ABG Base Excess (-9-1.8) mEq/L Christopher Test (Pos) Barometric Pressure mm/Hg Oxygen Given Sodium (136-145) mmol/L Potassium (3.5-5.1) mmol/L Chloride (98-107) mmol/L Carbon Dioxide (21-32) mmol/L Anion Gap (3-11) BUN (6-23) mg/dl Creatinine (0.6-1.2) mg/dl Est Cr Clr Drug Dosing ml/min Est GFR ( Amer) ml/min Est GFR (Non-Af Amer) ml/min BUN/Creatinine Ratio (10-20) Glucose (70-99(Fasting)) mg/dl POC Glucose 598 H* (70-99) mg/dl Osmolality 295 (280-300) mOsm/kg Lactate (0.4-2.0) mmol/L Calcium (8.5-10.1) mg/dl Magnesium (1.7-2.4) mg/dl Total Bilirubin (0.2-1.0) mg/dl Direct Bilirubin (0-0.2) mg/dl AST (13-39) U/L ALT (7-52) U/L Alkaline Phosphatase (34-104) U/L Ammonia (18-72) umol/L Troponin I (0-0.04) ng/ml Total Protein (6.0-8.3) gm/dl Albumin (3.4-5.0) gm/dl Lipase (11-82) U/L Urine Color Urine Appearance (Clear) Urine pH (4.5-7.5) Ur Specific [place] (1.000-1.030) Urine Protein (Negative) Urine Glucose (UA) (Negative) Urine Ketones (Negative) Urine Blood (Negative) Urine Nitrite (Negative) Urine Bilirubin (Negative) Urine Urobilinogen (Negative) Ur Leukocyte Esterase (Negative) Urine WBC (Auto) (0-5) /hpf Urine RBC (Auto) (0-4) /hpf U Hyaline Cast (Auto) (0-5) /lpf U Epithel Cells (Auto) (0-5) /lpf Urine Bacteria (Auto) (Negative) Salicylates < 3.0 L (3.0-30) mg/dl Acetaminophen < 3 L (10-30) ug/ml Influ A Molecular Assay (Negative) Influ B Molecular Assay (Negative) SARS-CoV-2, RNA, NAAT (NEGATIVE) 05/14/21 05/14/21 05/14/21 Range/Units 18:28 18:28 18:31 WBC (4.8-10.8) K/uL RBC (4.2-5.4) M/uL Hgb (12.0-16.0) g/dL Hct (37-47) % MCV (80-100) fL MCH (25-34) pg MCHC (32-36) g/dL RDW Std Deviation (36.4-46.3) fL RDW Coeff of Fabio (11.5-14.5) % Plt Count (130-400) K/uL MPV (7.4-10.4) fL Immature Gran % (Auto) % Neut % (Auto) % Lymph % (Auto) % Sampson % (Auto) % Eos % (Auto) % Baso % (Auto) % Neut # (Auto) (1.4-6.5) K/uL Lymph # (Auto) (1.2-3.4) K/uL Sampson # (Auto) (0.11-0.59) K/uL Eos # (Auto) (0-0.5) K/uL Baso # (Auto) (0-0.2) K/uL Immature Gran # (Auto) (0.00-0.02) K/uL Absolute Nucleated RBC (0-0) K/uL Nucleated RBC % (auto) % Hypochromasia Anisocytosis PT (9.0-12.0) Seconds INR (0.9-1.1) APTT (21.0-31.0) Seconds PTT Ratio ABG pH 7.48 H (7.35-7.45) ABG pCO2 32 L (35-46) mmHg ABG pO2 59 L (80-95) mmHg ABG HCO3 23 (19-24) mmol/L ABG O2 Saturation 89.9 L (90-95) % ABG Base Excess 0.1 (-9-1.8) mEq/L Christopher Test Pos (Pos) Barometric Pressure 728.9 mm/Hg Oxygen Given ROOM AIR Sodium (136-145) mmol/L Potassium (3.5-5.1) mmol/L Chloride (98-107) mmol/L Carbon Dioxide (21-32) mmol/L Anion Gap (3-11) BUN (6-23) mg/dl Creatinine (0.6-1.2) mg/dl Est Cr Clr Drug Dosing ml/min Est GFR ( Amer) ml/min Est GFR (Non-Af Amer) ml/min BUN/Creatinine Ratio (10-20) Glucose (70-99(Fasting)) mg/dl POC Glucose (70-99) mg/dl Osmolality (280-300) mOsm/kg Lactate 1.2 (0.4-2.0) mmol/L Calcium (8.5-10.1) mg/dl Magnesium (1.7-2.4) mg/dl Total Bilirubin (0.2-1.0) mg/dl Direct Bilirubin (0-0.2) mg/dl AST (13-39) U/L ALT (7-52) U/L Alkaline Phosphatase (34-104) U/L Ammonia 45.0 (18-72) umol/L Troponin I (0-0.04) ng/ml Total Protein (6.0-8.3) gm/dl Albumin (3.4-5.0) gm/dl Lipase (11-82) U/L Urine Color Urine Appearance (Clear) Urine pH (4.5-7.5) Ur Specific [place] (1.000-1.030) Urine Protein (Negative) Urine Glucose (UA) (Negative) Urine Ketones (Negative) Urine Blood (Negative) Urine Nitrite (Negative) Urine Bilirubin (Negative) Urine Urobilinogen (Negative) Ur Leukocyte Esterase (Negative) Urine WBC (Auto) (0-5) /hpf Urine RBC (Auto) (0-4) /hpf U Hyaline Cast (Auto) (0-5) /lpf U Epithel Cells (Auto) (0-5) /lpf Urine Bacteria (Auto) (Negative) Salicylates (3.0-30) mg/dl Acetaminophen (10-30) ug/ml Influ A Molecular Assay (Negative) Influ B Molecular Assay (Negative) SARS-CoV-2, RNA, NAAT (NEGATIVE) 05/14/21 05/14/21 05/14/21 Range/Units 18:39 18:39 19:33 WBC (4.8-10.8) K/uL RBC (4.2-5.4) M/uL Hgb (12.0-16.0) g/dL Hct (37-47) % MCV (80-100) fL MCH (25-34) pg MCHC (32-36) g/dL RDW Std Deviation (36.4-46.3) fL RDW Coeff of Fabio (11.5-14.5) % Plt Count (130-400) K/uL MPV (7.4-10.4) fL Immature Gran % (Auto) % Neut % (Auto) % Lymph % (Auto) % Sampson % (Auto) % Eos % (Auto) % Baso % (Auto) % Neut # (Auto) (1.4-6.5) K/uL Lymph # (Auto) (1.2-3.4) K/uL Sampson # (Auto) (0.11-0.59) K/uL Eos # (Auto) (0-0.5) K/uL Baso # (Auto) (0-0.2) K/uL Immature Gran # (Auto) (0.00-0.02) K/uL Absolute Nucleated RBC (0-0) K/uL Nucleated RBC % (auto) % Hypochromasia Anisocytosis PT (9.0-12.0) Seconds INR (0.9-1.1) APTT (21.0-31.0) Seconds PTT Ratio ABG pH (7.35-7.45) ABG pCO2 (35-46) mmHg ABG pO2 (80-95) mmHg ABG HCO3 (19-24) mmol/L ABG O2 Saturation (90-95) % ABG Base Excess (-9-1.8) mEq/L Christopher Test (Pos) Barometric Pressure mm/Hg Oxygen Given Sodium (136-145) mmol/L Potassium (3.5-5.1) mmol/L Chloride (98-107) mmol/L Carbon Dioxide (21-32) mmol/L Anion Gap (3-11) BUN (6-23) mg/dl Creatinine (0.6-1.2) mg/dl Est Cr Clr Drug Dosing ml/min Est GFR ( Amer) ml/min Est GFR (Non-Af Amer) ml/min BUN/Creatinine Ratio (10-20) Glucose (70-99(Fasting)) mg/dl POC Glucose (70-99) mg/dl Osmolality (280-300) mOsm/kg Lactate (0.4-2.0) mmol/L Calcium (8.5-10.1) mg/dl Magnesium (1.7-2.4) mg/dl Total Bilirubin (0.2-1.0) mg/dl Direct Bilirubin (0-0.2) mg/dl AST (13-39) U/L ALT (7-52) U/L Alkaline Phosphatase (34-104) U/L Ammonia (18-72) umol/L Troponin I (0-0.04) ng/ml Total Protein (6.0-8.3) gm/dl Albumin (3.4-5.0) gm/dl Lipase (11-82) U/L Urine Color Yellow Urine Appearance Clear (Clear) Urine pH 5.0 (4.5-7.5) Ur Specific [place] 1.022 (1.000-1.030) Urine Protein Negative (Negative) Urine Glucose (UA) 3+ H (Negative) Urine Ketones Negative (Negative) Urine Blood 2+ H (Negative) Urine Nitrite Negative (Negative) Urine Bilirubin Negative (Negative) Urine Urobilinogen Negative (Negative) Ur Leukocyte Esterase Negative (Negative) Urine WBC (Auto) 1-5 (0-5) /hpf Urine RBC (Auto) 5-10 H (0-4) /hpf U Hyaline Cast (Auto) 1-5 (0-5) /lpf U Epithel Cells (Auto) >30 H (0-5) /lpf Urine Bacteria (Auto) Negative (Negative) Salicylates (3.0-30) mg/dl Acetaminophen (10-30) ug/ml Influ A Molecular Assay Negative (Negative) Influ B Molecular Assay Negative (Negative) SARS-CoV-2, RNA, NAAT NEGATIVE (NEGATIVE) Imaging Data Radiologist's Impression: Head CT 05/14/21 18:12 CT OF THE HEAD WITHOUT CONTRAST CLINICAL HISTORY: Altered mental status. COMPARISON STUDY: Head CT March 16, 2021. CT DOSE: 3438.74 mGy.cm TECHNIQUE: Helical axial images of the head were obtained without IV contrast. Automated exposure control was utilized for the study. A dose lowering technique was utilized adhering to the principles of ALARA. FINDINGS: This study is mildly compromised by motion artifact. No acute intracranial hemorrhage, midline shift or mass effect is present. The ventricular system is unremarkable. The basal cisterns are patent. No extra- axial collections are present. There are no findings to suggest acute dural sinus thrombosis or acute territorial infarct. No significant calvarial ab normalities are present. Visualized portions of the sinuses and mastoid air cells are clear. IMPRESSION: No acute intracranial findings. Exam mildly compromised by motion artifact. ACT 112: Negative or not required by law. Electronically signed by: Grover Delacruz M.D. 05/14/2021 7:20 PM Chest X-Ray 05/14/21 18:13 XR chest 1V portable CLINICAL HISTORY: Shortness of breath. Fall. COMPARISON STUDY: Chest CT March 16, 2021. Chest radiograph March 18, 2021. FINDINGS: No pneumothorax or pleural effusion is present. Median sternotomy wires are present as well as mediastinal surgical clips. Cardiomegaly is unchanged. There is no evidence for pulmonary edema. IMPRESSION: No acute cardiopulmonary findings. ACT 112: Negative or not required by law. Electronically signed by: Grover Delacruz M.D. 05/14/2021 6:28 PM Pelvis X-Ray 05/14/21 18:13 XR pelvis 1-2V routine CLINICAL HISTORY: fall COMPARISON: Pelvis radiograph and CT of the abdomen and pelvis March 16, 2021. FINDINGS: Pelvic calcifications likely reflect phleboliths and vascular calcifications. Sacroiliac joints and symphysis pubis are intact. No acute fracture within the pelvis or hips is identified. Degenerative changes of the symphysis pubis are noted. IMPRESSION: No acute fracture within the pelvis or hips. ACT 112: Negative or not required by law. Electronically signed by: Grover Delacruz M.D. 05/14/2021 6:27 PM ECG Data Additional Comments: Sinus rhythm with a rate of 87. RI 140 QRS 160 QTC 543. Left bundle branch block present. sgarbosa negative. No significant change from the EKG done in March 2021. [facility] Narrative 180: The patient was evaluated in room A11. A complete history and physical exam was performed Cardiac monitoring: An order was placed for continuous cardiac monitoring. The monitor shows a rate of 80 with sinus rhythm 1817: EMR reviewed. Patient had an echo done on March 17, 2021 and showed an ejection fraction of 65%. 2038: Vital signs stable. Labs show white blood cell count of 24.7. Hemoglobin 7.7. Patient's hemoglobin usually runs around 10. Rectal exam was performed with female nursing auto carrier driver Karina at bedside. Hemoccult negative. Blood gas appears to be venous. Sodium 128. Potassium 2.7. Potassium will be replaced in the emergency department. Patient's glucose 544. No anion gap elevation or osmolar gap. Troponin 0 0.06. Urinalysis negative. Chest x-ray and pelvis x- ray negative. CT of the head within normal limits. [facility] Empiric antibiotics given. Discussed case with Dr. Gudino. We will hold off on insulin drip at this point as patient does not have HHS or DKA. Impression & Plan Hyperglycemia due to diabetes mellitus, Altered mental status, Hypokalemia, Elevated troponin, Leukocytosis Discharge Plan Visit Data Chief Complaint: Altered Mental Status ED Provider: Papito Conner Discharge Problem: Hyperglycemia due to diabetes mellitus, Altered mental status, Hypokalemia, Elevated troponin, Leukocytosis Patient Disposition: Admitted As Inpatient Forms Stand Alone Forms: My [facility] Prescriptions Prescriptions: No Action cephalexin 500 mg capsule 500 mg PO Q6 30 Days Qty: 120 RF: 1 atorvastatin 80 mg tablet 80 mg PO HS RF: 0 donepezil 5 mg tablet 5 mg PO HS RF: 0 metoprolol succinate 50 mg tablet extended release 24 hr 50 mg PO DAILY RF: 0 quetiapine 200 mg tablet 200 mg PO HS RF: 0 clopidogrel 75 mg tablet 75 mg PO DAILY RF: 0 lisinopril 10 mg tablet 10 mg PO DAILY RF: 0 gabapentin 300 mg capsule See Rx Instructions .ROUTE .COMPLEX RF: 0 omeprazole 20 mg capsule,delayed release(DR/EC) 20 mg PO DAILY RF: 0 furosemide 20 mg tablet 60 mg PO DAILY RF: 0 topiramate 50 mg tablet 50 mg PO BID RF: 0 duloxetine 30 mg capsule,delayed release(DR/EC) 30 mg PO QAM RF: 0 duloxetine 60 mg capsule,delayed release(DR/EC) 60 mg PO QAM RF: 0 Basaglar KwikPen U-100 Insulin 100 unit/mL (3 mL) insulin pen 46 unit SUBCUT QAM RF: 0 aspirin 81 mg Tablet 81 mg PO DAILY RF: 0 acetaminophen [Tylenol Extra Strength] 500 mg Tablet 500 mg PO Q4 Qty: 100 RF: 0 oxycodone 5 mg Tablet 5 mg PO QID PRN (Reason: pain) Qty: 60 RF: 0 bisacodyl 10 mg Suppository 10 mg RI DAILY PRN (Reason: constipation) Qty: 50 RF: 0 polyethylene glycol 3350 [Miralax] 17 gram Powder In Packet 17 g PO DAILY Qty: 30 RF: 0 potassium chloride 20 mEq Tablet,Er Particles/Crystals 40 meq PO QAM Qty: 30 RF: 0 magnesium oxide 400 mg (241.3 mg magnesium) Tablet 400 mg PO QAM Qty: 30 RF: 0 magnesium hydroxide [Milk of Magnesia] 400 mg/5 mL Suspension 30 ml PO Q6H PRN (Reason: stomach upset) Qty: 300 RF: 0 docusate sodium 100 mg Capsule 100 mg PO BID PRN (Reason: Constipation) Qty: 60 RF: 0 sennosides [Senokot] 8.6 mg Tablet 17.2 mg PO HS Qty: 60 RF: 0 multivitamin with folic acid [Daily-Hardik (with folic acid)] 400 mcg Tablet 1 tab PO QAM Qty: 30 RF: 0 Referrals Referrals: Christiano Simon PA-C [Primary Care Provider] -
[2021-05-14 18:21] LABS: Hematocrit (blood only) 25.8 % (37-47); Hemoglobin 7.7 g/dL (12.0-16.0); Mean Corpuscular Hemoglobin 25.6 pg (25-34); Mean Corpuscular Hgb Conc 29.8 g/dL (32-36); Mean Corpuscular Volume 85.7 fL (80-100); Mean Platelet Volume 10.6 fL (7.4-10.4); Nucleated RBC # (auto) 0.07 K/uL (0-0); Nucleated RBC % (auto) 0.3 %; Platelet Count 304 K/uL (130-400); RDW Coefficient of Variation 19.4 % (11.5-14.5); RDW Standard Deviation 59.8 fL (36.4-46.3); Red Blood Count 3.01 M/uL (4.2-5.4); White Blood Count 24.76 K/uL (4.8-10.8)
--- NOTE | 2021-05-14 18:29 | XRay Report ---
XR pelvis 1-2V routine CLINICAL HISTORY: fall COMPARISON: Pelvis radiograph and CT of the abdomen and pelvis March 16, 2021. FINDINGS: Pelvic calcifications likely reflect phleboliths and vascular calcifications. Sacroiliac j oints and symphysis pubis are intact. No acute fracture within the pelvis or hips is identified. Dege nerative changes of the symphysis pubis are noted. IMPRESSION: No acute fracture within the pelvis or hips. ACT 112: Negative or not required by law. Electronically signed by: Grover Delacruz M.D. 05/14/2021 6:27 PM
[2021-05-14] MEDS ORDERED: SODIUM CHLORIDE 0.9% 1000ML 1,000 ML IV SCH (18:30)
--- NOTE | 2021-05-14 18:30 | XRay Report ---
XR chest 1V portable CLINICAL HISTORY: Shortness of breath. Fall. COMPARISON STUDY: Chest CT March 16, 2021. Chest radiograph March 18, 2021. FINDINGS: No pneumothorax or pleural effusion is present. Median sternotomy wires are present as well as mediastinal surgical clips. Cardiomegaly is unchanged. There is no evidence for pulmonary edema. IMPRESSION: No acute cardiopulmonary findings. ACT 112: Negative or not required by law. Electronically signed by: Grover Delacruz M.D. 05/14/2021 6:28 PM
[2021-05-14 18:33] LABS: INR 1.2 (0.9-1.1); Partial Thromboplastin Ratio 1.2; Prothrombin Time 12.9 Seconds (9.0-12.0)
[2021-05-14 18:44] LABS: Acetaminophen < 3 ug/ml (10-30); Salicylate < 3.0 mg/dl (3.0-30)
[2021-05-14 18:50] LABS: Anisocytosis Present; Basophils # (auto) 0.03 K/uL (0-0.2); Basophils % (auto) 0.1 %; Eosinophils # (auto) 0.01 K/uL (0-0.5); Hypochromasia Present; Immature Granulocytes # (auto) 0.29 K/uL (0.00-0.02); Immature Granulocytes % (auto) 1.2 %; Lymphocytes % (auto) 6.9 %; Monocytes # (auto) 1.64 K/uL (0.11-0.59); Monocytes % (auto) 6.6 %; Neutrophils # (auto) 21.09 K/uL (1.4-6.5); Neutrophils % (auto) 85.2 %
[2021-05-14 18:50] LABS: Allen Test Pos (Pos); Base Excess ABG 0.1 mEq/L (-9-1.8); HCO3 ABG 23 mmol/L (19-24); Oxygen Saturation ABG 89.9 % (90-95); PCO2 ABG 32 mmHg (35-46); PO2 ABG 59 mmHg (80-95); pH ABG 7.48 (7.35-7.45)
[2021-05-14 18:52] LABS: Albumin Level 2.7 gm/dl (3.4-5.0); BUN Creatinine Ratio 14.1 (10-20); Bilirubin Direct 0.2 mg/dl (0-0.2); Bilirubin,Total 0.8 mg/dl (0.2-1.0); Calcium 7.6 mg/dl (8.5-10.1); Creatinine Clr Calc Pharmacy 59.8 ml/min; Est GFR (African American) 70.8 ml/min; Est GFR (Non-African American) 61.1 ml/min; Magnesium 1.7 mg/dl (1.7-2.4); Potassium 2.7 mmol/L (3.5-5.1); Total Protein 6.5 gm/dl (6.0-8.3)
[2021-05-14 18:53] LABS: Troponin I 0.06 ng/ml (0-0.04)
[2021-05-14 19:14] LABS: Influenza A virus by PCR Negative (Negative); Influenza B virus by PCR Negative (Negative)
--- NOTE | 2021-05-14 19:22 | CT Scan Report ---
CT OF THE HEAD WITHOUT CONTRAST CLINICAL HISTORY: Altered mental status. COMPARISON STUDY: Head CT March 16, 2021. CT DOSE: 3438.74 mGy.cm TECHNIQUE: Helical axial images of the head were obtained without IV contrast. Automated exposure con trol was utilized for the study. A dose lowering technique was utilized adhering to the principles o f ALARA. FINDINGS: This study is mildly compromised by motion artifact. No acute intracranial hemorrhage, midl ine shift or mass effect is present. The ventricular system is unremarkable. The basal cisterns are p atent. No extra-axial collections are present. There are no findings to suggest acute dural sinus thr ombosis or acute territorial infarct. No significant calvarial abnormalities are present. Visualized portions of the sinuses and mastoid air cells are clear. IMPRESSION: No acute intracranial findings. Exam mildly compromised by motion artifact. ACT 112: Negative or not required by law. Electronically signed by: Grover Delacruz M.D. 05/14/2021 7:20 PM
[2021-05-14 19:52] LABS: Appearance Urine Clear (Clear); Bacteria Urine Automated Negative (Negative); Bilirubin Urine Negative (Negative); Blood Urine 2+ (Negative); Color Urine Yellow; Epithelial Cell Urine Auto >30 /lpf (0-5); Glucose Urine UA 3+ (Negative); Ketones Urine Negative (Negative); Leukocyte Esterase Urine Negative (Negative); Nitrite Urine Negative (Negative); Protein Urine Negative (Negative); Specific Gravity Urine 1.022 (1.000-1.030); Urobilinogen Urine Negative (Negative)
[2021-05-14] MEDS ORDERED: VANCOMYCIN HCL 1,500 MG in SODIUM CHLORIDE 0.9% 500 ML IV ONE (19:57)
[2021-05-14] MEDS ORDERED: CEFEPIME 2,000 MG/20 ML VIAL IV STA (19:57)
[2021-05-14] MEDS ORDERED: VANCOMYCIN CONSULT ACTIVE PRN (19:57)
[2021-05-14] MEDS ORDERED: POTASSIUM CHLORIDE 10 MEQ TABCR PO STA (20:43)
[2021-05-14] MEDS: POTASSIUM CHLORIDE / WTR 10 MEQ/100 ML PLCT IV SCH ×2 (21:02→22:37)
[2021-05-14] MEDS ORDERED: MoRPHine SULFATE 2 MG/ML CARP ONE (21:26)
[2021-05-14] MEDS ORDERED: NovoLIN-R INSULIN PER UNIT CHARGE IV STA (21:46)
[2021-05-14] MEDS ORDERED: bisacodyL 10 MG SUPP PR PRN (23:08)
[2021-05-14] MEDS ORDERED: NITROGLYCERIN SL 0.4 MG/TAB TAB SL PRN (23:08)
[2021-05-14] MEDS ORDERED: PIPERACILL/TAZOBAC CONSULT ACTIVE PRN (23:08)
[2021-05-14] MEDS ORDERED: INSULIN GLARGINE SOLOSTAR 100 UNITS/ML 3 ML PEN SC SCH (23:08)
[2021-05-14] MEDS ORDERED: traMADol HCL 50 MG TABLET PO PRN (23:08)
[2021-05-14] MEDS ORDERED: PIPERACILLIN/TAZOBACTAM 4.5 GM in DEXTROSE 5% 100 ML IV SCH (23:08)
[2021-05-14] MEDS ORDERED: ACETAMINOPHEN 325 MG TAB PO PRN (23:08)
[2021-05-14] MEDS ORDERED: PHARMACY GLYCEMIC MGMT CONSULT PRN (23:08)
[2021-05-14] MEDS ORDERED: POLYETHYLENE (MIRALAX) 17 GM PACK PO PRN (23:08)
[2021-05-14] MEDS ORDERED: INSULIN ASPART PER UNIT SC STA (23:33)
[2021-05-15] MEDS ORDERED: PIPERACILLIN/TAZOBACTAM 4.5 GM in DEXTROSE 5% 100 ML IV ONE
[2021-05-15] MEDS ORDERED: NITROGLYCERIN SL 0.4 MG/TAB TAB SL PRN (00:07)
[2021-05-15] MEDS ORDERED: DOCUSATE SODIUM 100 MG CAP PO PRN (00:07)
[2021-05-15] MEDS ORDERED: SENNA 8.6 MG TAB PO PRN (00:07)
[2021-05-15] MEDS ORDERED: METOPROLOL TARTRATE 1 MG/ML VIAL IV PRN (00:09)
[2021-05-15] MEDS ORDERED: POTASSIUM CHLORIDE 20 MEQ/15 ML UDC PO STA (00:13)
[2021-05-15] MEDS ORDERED: NSS + 20MEQ KCL 20 MEQ/1,000 ML BAG IV SCH (01:00)
[2021-05-15] MEDS: POTASSIUM CHLORIDE / WTR 10 MEQ/100 ML PLCT IV SCH ×2 (01:18→02:27)
[2021-05-15] MEDS: INSULIN ASPART PER UNIT SC SCH ×2 (02:50→08:15)
--- NOTE | 2021-05-15 03:01 | Pharmacy Report ---
Pharmacy Abx Initial Consult - Date of Service May 15, 2021 - Pharmacy Dosing Scope Date of Consult: 05/14/21 Consultation requested by: Dr. Gudino Pharmacy is consulted to initiate Vancomycin/Zosyn IV dosing therapy, order appropriate labs and adjust drug dose/frequency. - Subjective The patient is a 60 year old F admitted on 05/14/21 21:46. - Objective Height: 5 ft 6 in Weight: 70.1 kg Vital Signs (Past 12hrs): Vital Signs Temp Pulse Pulse Resp BP BP Pulse Ox 05/14/21 23:09 39.2 C H 100 H 20 142/79 H 98 05/14/21 23:00 100 H 05/14/21 21:30 101 H 38 H 128/66 92 05/14/21 21:01 97 H 34 H 155/78 H 100 05/14/21 21:00 96 H 38 H 99 05/14/21 20:53 95 H 40 H 159/85 H 95 05/14/21 20:30 93 H 31 H 144/95 H 96 05/14/21 20:00 92 H 29 H 157/85 H 91 05/14/21 19:33 90 32 H 147/76 H 91 05/14/21 19:30 92 H 23 05/14/21 19:00 88 L 05/14/21 18:30 88 29 H 05/14/21 18:26 94 05/14/21 18:09 86 23 05/14/21 18:07 37.1 C 85 18 131/68 92 Lab Results (24hrs): Laboratory Tests (24 Hours) 05/14/21 05/14/21 18:10 18:10 WBC 24.76 H Neut # (Auto) 21.09 H Creatinine 0.99 Est Cr Clr Drug Dosing 59.8 Micro Results: 05/14/21 18:41 Aerobic Blood Culture - Pending Blood Anaerobic Blood Culture - Pending 05/14/21 18:31 Aerobic Blood Culture - Pending Blood Anaerobic Blood Culture - Pending - Assessment & Plan Assessment 60 year old F admitted with sepsis due to infected hardware in her ankle. Plan Vancomycin IV * Loading dose: 1500 mg (21 mg/kg) * Maintenance dose: 750 mg IV (11 mg/kg) every 12 hours * AUC/ELI is the preferred PK/PD target for vancomycin * AUC guided dosing is effective and associated with decreased risk of nephrotoxicity compared to traditional trough targets * This dose is predicted to achieve target AUC/ELI of 400-600 mg/L.hr and may be associated with a 14 % risk of nephrotoxicity * Will check a level in a few days if Vancomycin is continued. Piperacillin/tazobactam * 4.5 g bolus administered over 30 minutes, then 3.375 g IV extended infusion every 8 hours for CrCl greater than 20 mL/min. Pharmacy will continue to follow and will adjust dose/frequency as necessary. Thank you.
--- NOTE | 2021-05-15 03:05 | History and Physical Report ---
DATE OF ADMISSION: 05/14/2021. CHIEF COMPLAINT: Altered mental status. HISTORY OF PRESENT ILLNESS: A 60-year-old female with past medical history significant for diabetes, diabetic neuropathy, CAD status post CABG, history of hypertension, history of non-rheumatic mitral regurgitation, history of community-acquired pneumonia, history of GERD, history of back pain, history of paranoid, anxiety, tobacco abuse disorder, who was brought in because of altered mental status. As per daughter, the patient was okay on Saturdays and Monday she was getting a little more drowsy, sleeping a lot. Seemed somewhat confused. It got progressively worse through the week, not eating or drinking much. The patient had a fall and left ankle fracture in March and is status post open reduction and internal fixation. She saw orthopedics yesterday, they thought she had an infection, and was started on Keflex. As she was not getting better and health aide thought she was more more confused than normal, EMS was called .Sugars were running high and she was saturating okay at 90%. Seems she also fell 2 days ago. The patient is oriented to name and place. She is very drowsy, opens eyes on calling, but not answering many questions. Denies any pain currently. Her daughter says that her left ankle is infected and when her left ankle wrap is removed, we can see the hardware exposed and erythematous and some drainage fseen possible sepsis. Could not get any history from the patient currently. ALLERGIES: LATEX, ASPIRIN, OXYCODONE. PAST MEDICAL HISTORY: As mentioned above. PAST SURGICAL HISTORY: CABG, hysterectomy, cholecystectomy, left ankle open reduction and internal fixation. MEDICATIONS: The patient seems to be on Tylenol 500 mg p.o. 4 hours p.r.n., aspirin 81 mg p.o. daily, atorvastatin 80 mg p.o. at bedtime, bisacodyl 10 mg p.o. daily p.r.n., Keflex 500 mg p.o. q. 6 hours, Plavix 75 mg p.o. daily, Colace 100 mg p.o. b.i.d. p.r.n., donepezil 5 mg p.o. at bedtime, duloxetine 90 mg p.o. daily, Lasix 60 mg p.o. daily, gabapentin 600 mg p.o. at bedtime and 300 mg p.o. a.m., insulin glargine 46 units subcutaneous a.m., NovoLog subcutaneous t.i.d., lisinopril 10 mg p.o. daily, magnesium oxide 400 mg daily, metoprolol succinate 100 mg in the a.m. and 50 mg in the p.m., multivitamins 1 tablet daily, omeprazole 20 mg p.o. daily, MiraLax 17 g daily, topiramate 250 mg p.o. b.i.d., tramadol 50 mg p.o. q. 6 hours p.r.n. FAMILY HISTORY: Significant for father has diabetes, hyperlipidemia, stroke; mother has diabetes, hyperlipidemia; brother has stroke; maternal grandmother has diabetes, hyperlipidemia; paternal grandfather has hyperlipidemia; paternal grandmother has hyperlipidemia. SOCIAL HISTORY: Quit smoking in 2017, smoked 1 pack a day for 30 years. Alcohol, rarely. No drug use. REVIEW OF SYSTEMS: Unobtainable at this time as the patient is confused. PHYSICAL EXAMINATION: GENERAL: The patient is drowsy, but arousable, alert to name and place. VITAL SIGNS: T-max 39.2, pulse 100, respiratory rate 20, blood pressure 142/79, oxygen 98% on room air. HEENT: Pupils equal, round and reactive to light. Oral mucosa dry. NECK: No JVD, no neck mass. CARDIOVASCULAR: S1 and S2 heard. Tachycardia. No murmurs. RESPIRATORY SYSTEM: Normal AP diameter. No accessory muscle use. No wheezing, no crackles. ABDOMEN: Soft, bowel sounds present, nontender, no distention. CENTRAL NERVOUS SYSTEM: Somewhat drowsy, but oriented to name and place. Sometimes obeys simple commands. Could not get much for [employer] exam. The patient is somewhat lethargic. EXTREMITIES: Left ankle recent open reduction and internal fixation site is open with exposed hardware, some mild drainage seen and there are surrounding erythematous changes. LABORATORY DATA: WBC 24, hemoglobin 7.7, hematocrit 25.8, platelets 304. PT 12.9, INR 1.2, APTT 33. ABG, pH of 7.4, pCO2 of 32, pO2 of 59, bicarbonate 23. Sodium 128, potassium 2.7, chloride 96, bicarbonate 25, BUN 14, creatinine 0.9, serum glucose 544. Urine osmolarity 295, lactate 1.2, calcium 7.6, magnesium 1.7, total bilirubin 0.8, direct bilirubin 0.2, AST 44, ALT 41, alkaline phosphatase 112. Ammonia 45. Troponin I of 0.06, lipase 10. Urinalysis, +3 glucose, +2 blood. Salicylate less than 3, acetaminophen less than 3. Influenza A and B negative. COVID rapid test negative. IMAGING DATA: Pelvic x-ray, no acute fracture Chest x-ray, no acute cardiopulmonary findings. CT of the head, no acute findings. EKG: Normal sinus rhythm, possible left atrial enlargement at a rate of 87. Left bundle branch block. Left axis deviation. ASSESSMENT AND PLAN: This is a 60-year-old female who presents with altered mental status. 1. Altered mental status: Possibly from sepsis, possibly from the left ankle surgical site infection, hardware is exposed. Empirically started on Zosyn and vancomycin. Follow the cultures. Orthopedics consulted in a.m. Will keep her n.p.o. Meets criteria for sepsis with temperature spike, elevated white count, altered mental status, and possible infection of left ankle. We will also order left ankle CT scan. Will closely monitor in the tele floor. 2. Diabetes, hyperglycemia: Not in diabetic ketoacidosis. Will give one dose of IV insulin. The pateint is currently n.p.o. Will place on Lantus 12 units b.i.d. and insulin sliding scale. glycemic pharmacy consult. Closely monitor blood sugars. 3. Hypokalemia: Will replace.Also ordered kcl supplement in maintenance fluids. Follow repeat labs for over correction. 4. Hyponatremia, possibly from elevated sugars: Will follow the repeat labs. 5. Mild elevation of troponin: Mostly demand ischemia. Follow serial enzymes and echocardiogram. 6. History of anemia: The patient seems to be having chronic anemia. Her hemoglobin is 7.4, possibly from ongoing infection. Will follow the labs. Hemoccult is negative in the ER, we will check the stool samples. Will monitor. 7. History of coronary artery disease, status post coronary artery bypass grafting and continue her aspirin, statin and Plavix. She is on metoprolol succinate 50 mg in p.m. and 100 mg in a.m. But seems in recent admission, she was only taking 50 mg daily, need to verify the metoprolol dose. Will continue with metoprolol 50 mg at bedtime currently withholding parameters as the patient is in sepsis. 8. History of mood disorder: Continue duloxetine and topiramate. Question of being on Seroquel, need to verify. 9. Chronic diastolic chf. Holding lasix. On iv fluids. Monitor for volume overload. 10. Deep venous thrombosis prophylaxis: On Lovenox. DISPOSITION: Closely monitor in the tele floor. Level 1 full code. PT/OT prior to discharge. Social service to help with discharge planning. Job ID: [id number] [employer]
[2021-05-15] MEDS ORDERED: ACETAMINOPHEN 1000 MG/100 ML IV IV PRN (04:53)
[2021-05-15 05:06] LABS: Hematocrit (blood only) 27.8 % (37-47); Hemoglobin 8.3 g/dL (12.0-16.0); Mean Corpuscular Hemoglobin 25.8 pg (25-34); Mean Corpuscular Hgb Conc 29.9 g/dL (32-36); Mean Corpuscular Volume 86.3 fL (80-100); Mean Platelet Volume 10.7 fL (7.4-10.4); Nucleated RBC # (auto) 0.17 K/uL (0-0); Nucleated RBC % (auto) 0.7 %; Platelet Count 303 K/uL (130-400); RDW Coefficient of Variation 19.5 % (11.5-14.5); RDW Standard Deviation 61.4 fL (36.4-46.3); Red Blood Count 3.22 M/uL (4.2-5.4); White Blood Count 23.85 K/uL (4.8-10.8)
[2021-05-15 05:21] LABS: Base Excess ABG -3.6 mEq/L (-9-1.8); HCO3 ABG 19 mmol/L (19-24); Oxygen Saturation ABG 91.5 % (90-95); PCO2 ABG 28 mmHg (35-46); PO2 ABG 64 mmHg (80-95); pH ABG 7.45 (7.35-7.45)
[2021-05-15 05:27] LABS: Allen Test Pos (Pos)
[2021-05-15 05:35] LABS: ALC (manual) 1.03 K/uL (1.2-3.4); ANC (manual) 22.18 K/uL (1.4-6.5); Basophils # (manual) 0.21 K/uL (0-0.2); Basophils % (manual) 0.9 %; Eosinophils # (manual) 0.21 K/uL (0-0.5); Eosinophils % (manual) 0.9 %; Lymphocytes # (manual) 1.03 K/uL (1.2-3.4); Lymphocytes % (manual) 4.3 %; Monocytes # (manual) 0.21 K/uL (0.11-0.59); Monocytes % (manual) 0.9 %; Neutrophils # (manual) 22.18 K/uL (1.4-6.5); Polychromasia 1+; Toxic Vacuolation 1+
[2021-05-15 05:39] LABS: BUN Creatinine Ratio 14.9 (10-20); Calcium 7.8 mg/dl (8.5-10.1); Creatinine Clr Calc Pharmacy 58.1 ml/min; Est GFR (African American) 75.4 ml/min; Magnesium 1.7 mg/dl (1.7-2.4); Potassium 4.1 mmol/L (3.5-5.1); Troponin I 0.09 ng/ml (0-0.04)
[2021-05-15] MEDS ORDERED: SODIUM BICARBONATE 8.4% INJ 50 MEQ/50 ML VIAL IV STA (05:46)
[2021-05-15] MEDS ORDERED: MoRPHine SULFATE 2 MG/ML CARP IV STA (05:59)
[2021-05-15 06:45] LABS: Estimated Average Glucose 249 mg/dl; Hemoglobin A1C 10.3 % (4.5-5.6)
[2021-05-15] MEDS: PIPERACILLIN/TAZOBACTAM 3.375 GM in DEXTROSE 5% 100 ML IV SCH ×3 (06:51→23:04)
[2021-05-15] MEDS ORDERED: RAPID SEQUENCE INDUCTION BAG ONE (07:54)
[2021-05-15] MEDS ORDERED: PROPOFOL IV EMULSION 10 MG/ML 100 ML VIAL IV ONE (07:55)
[2021-05-15] MEDS: VANCOMYCIN HCL 750 MG in SODIUM CHLORIDE 0.9% 250 ML IV SCH ×2 (08:08→20:05)
[2021-05-15] MEDS ORDERED: STAT IV Infusion **Titration per Protocol STA (08:20)
[2021-05-15] MEDS: PROPOFOL BOLUS FROM BAG IV PRN (08:26)
[2021-05-15] MEDS: propofoL 1,000 MG/100 ML VIAL IV SCH ×2 (08:26→19:23)
--- NOTE | 2021-05-15 08:27 | Hospitalist Progress Note ---
Date of Service May 15, 2021 Assessment & Plan Admission and Anticipated Discharge Date Admission Date: May 14, 2021 Subjective During night patient became more lethargic and tachyapneic. Also spiking temp.Re peated labs. seems hyperventilating as per abg and labs. Lactic acid came back at 3.4 which was normal yesterday evening. oxygen requirements went up. Patient has hx of diastolic chf and getting fluids for sepsis. Ordered cxr. Her change in condition most likely from severe sepsis from left ankle wound with exposed hardware.May consider LP and further imaging studies.Notified Critical care and transferring to ICU. Notified daughter about change in patient's condition. Notified orthopedics and ortho going to see patient and thinks she may need amputation if she needs surgery. Notified Am doc . Results & Data Results & Data ([facility]) Vital Signs (Past 12 Hours) Vital Signs Temp Pulse Pulse Resp BP BP Pulse Ox 05/15/21 06:45 38.3 C H 130 H 40 H 160/88 H 92 05/15/21 03:55 38.3 C H 106 H 24 141/66 H 93 05/14/21 23:09 39.2 C H 100 H 20 142/79 H 98 05/14/21 23:00 100 H 05/14/21 21:30 101 H 38 H 128/66 92 05/14/21 21:01 97 H 34 H 155/78 H 100 05/14/21 21:00 96 H 38 H 99 05/14/21 20:53 95 H 40 H 159/85 H 95 05/14/21 20:30 93 H 31 H 144/95 H 96
[2021-05-15] MEDS ORDERED: LACTATED RINGER'S 1,000 ML IV ONE ×2 (08:29→09:05)
--- NOTE | 2021-05-15 08:29 | XRay Report ---
XR chest 1V portable HISTORY: 60 years-old Female congestion acute shortness of breath with congestion COMPARISON: Chest radiograph 05/14/2021 TECHNIQUE: Semierect AP view of the chest FINDINGS: Endotracheal tube overlies the midline, 1.8 cm superior to the ava. Left subclavian central venous catheter distal tip projects of the right atrium. Enteric tube distal tip projects over the mid stom ach. Cholecystectomy. No pneumothorax or large pleural effusion. Pulmonary vascular congestion with m ild interstitial coarsening. The bones appear grossly intact. IMPRESSION: 1. Lines and tubes as above. 2. Cardiomegaly with suggestion of mild pulmonary edema. 3. No pneumothorax. ACT 112: Negative or not required by law. The above report was generated using voice recognition software. It may contain grammatical, syntax o r spelling errors. Electronically signed by: Alexi Wu M.D. 05/15/2021 8:28 AM
[2021-05-15] MEDS ORDERED: PHENYLEPHRINE HCL 20 MG in DEXTROSE 5% 500 ML IV SCH (08:30)
--- NOTE | 2021-05-15 08:39 | Procedure Note ---
Procedure Note Date of Service May 15, 2021 Note INTUBATION PROCEDURE NOTE: Provider: Loy Bauer MD A time-out was completed verifying correct patient, procedure, site, positioning. Patient was evaluated and required intubation for hypoxemic respiratory failure, altered mental status, and severe septic shock Sedative agent used: Etomidate Versed and propofol Paralysis agent used: None Emergent consent was implied given patients rapidly declining clinical status and need for airway protection. The patient was prepared in the appropriate fashion. Sedation was achieved utilizing Versed, etomidate, and propofol. The patient was easily ventilated using [id number] to achieve adequate oxygenation. A 7.5 endotracheal tube was placed under video laryngoscopy to 24cm at the lip. The stylette was removed and balloon was inflated with 10mL of air. Appropriate Colorimetric change was appreciated. Bilateral breath sounds were heard without air sounds in the abdomen. Post Intubation Chest X-ray confirms placement without pneumothorax. Patient tolerated the procedure well and there were no immediate complications. Coding CPT Codes Resuscitation - Resuscitation: 24795 Endotracheal Intubation, emergency ([id number]) [facility] [place] Codes (Charges) Resuscitation Resuscitation: 23144 Endotracheal Intubation, emergency
--- NOTE | 2021-05-15 08:41 | Procedure Note ---
Procedure Note Date of Service May 15, 2021 Note CENTRAL LINE PROCEDURE NOTE: Procedure: Central Line Placement Provider: Loy Bauer MD Indication: Central Drug Administration, Poor Venous Access, Multiple Lab Draws Necessary, etc. Anesthesia: 5ml Lidocaine 1% Site: Left subclavian Procedure was emergent. Patient unable to provide verbal or written consent. No family immediately available A time-out was completed verifying correct patient, procedure, site, positioning, and implants(s) or special equipment if applicable. Patients left clavicular area was cleansed and draped in the typical sterile fashion using Chloraprep. T landmarks were identified. The superficial tissue was anesthetized using 5mL of 1% lidocaine without epinephrine. After adequate anesthetization was achieved, the left subclavian vein was cannulated using an introducer needle on a syringe. Good venous blood return was maintained prior to removal of syringe from introducer needle. Using Seldinger Technique, a guide wire was advanced through the introducer needle without resistance. The in troducer needle was removed . A small incision was made in penetrating fashion at the guide wire insertion site utilizing an 11 blade scalpel. The dilator was advanced to the vessel without resistance. The dilator was exchanged for the triple lumen catheter which was advanced into the vessel without resistance. The guide wire was removed intact from the catheter without issue. Claves were placed on each catheter tip with confirmation of good blood flow from each lumen. Each port was easily flushed with sterile saline. The catheter was placed at the hub and sutured in place. BioPatch was applied to the catheter and a sterile Tegaderm dressing was applied over the catheter with careful attention to sterility. Patient tolerated procedure well. No immediate complications were met. Post procedure x-ray was completed, placement was appropriate and no pneumothorax was noted. EBL 5 ml Coding CPT Codes Tubes, Drains, and Vasc Access - Tubes, Drains, and Vasc Access: [id number] Place catheter in vein superior or inferior vena cava ([id number]) [facility] [place] Procedure Codes (Charges) Tubes, Drains, and Vasc Access Procedure 1: Tubes, Drains, and Vasc Access: [id number] Place catheter in vein superior or inferior vena cava
--- NOTE | 2021-05-15 08:42 | Procedure Note ---
Procedure Note Date of Service May 15, 2021 Note ARTERIAL LINE PROCEDURE NOTE: Procedure: Arterial Line Placement Provider: Loy Bauer MD Indication: Monitoring on Pressors Anesthesia: None Procedure was emergent. Patient unable to provide verbal or written consent. No family immediately available A time-out was completed verifying correct patient, procedure, site, positioning, and implant(s) or special equipment if applicable. Allens test was performed to ensure adequate perfusion. Patients leftwrist was prepped and draped in the usual sterile fashion. A 20g Arrow arterial line was introduced into the left radialartery. Catheter was threaded, and the needle was removed with appropriate blood return. Good waveform was observed. The patient tolerated the procedure well. Blood Loss: Minimal Complications: None Coding CPT Codes Tubes, Drains, and Vasc Access - Tubes, Drains, and Vasc Access: [id number] Insertion Catheter, Artery ([id number]) [facility] [place] (Charges) Tubes, Drains, and Vasc Access Procedure 1: Tubes, Drains, and Vasc Access: [id number] Insertion Catheter, Artery
[2021-05-15] MEDS ORDERED: ICU PROTOCOL FOR HYPERGLYCEMIA PRN (08:44)
--- NOTE | 2021-05-15 08:45 | Critical Care Consultation ---
Date of Consultation May 15, 2021 Assessment & Plan (1) Severe sepsis with septic shock: (2) Poorly controlled diabetes mellitus: (3) Osteomyelitis: (4) Lactic acidosis: (5) Anemia: (6) Hyponatremia: Impression: 60-year-old female with poorly controlled diabetes (hemoglobin A1c above 10) admitted with osteomyelitis and infected hardware of the ankle and severe sepsis with septic shock resulting encephalopathy. Recommendations: 1. Neurologic: Patient's altered mental status is likely result of metabolic disarray and underlying sepsis. She is now intubated. We will continue sedation with propofol and use fentanyl as needed for analgesia. 2. Cardiovascular: Severe sepsis with septic shock: I think the patient is likely under volume resuscitated. Additional crystalloid will be administered. Will trend the patient's lactate, urine output, and blood pressure parameters. Given her tachycardia, will use [place]-Synephrine for blood pressure support. An echocardiogram has been ordered by the primary admitting service. I do not see much utility in continuing to trend cardiac enzymes at this point time as this does not appear to be an acute coronary syndrome. Check random cortisol 3. Pulmonary: Respiratory alkalosis secondary to sepsis. Continue mechanical ventilation. Her follow-up blood gas appears better. Continue to adjust ventilator to optimize acid-base status. 4. 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 Discussed with orthopedics. Plan to proceed with below the knee amputation once the patient is optimized to undergo anesthesia. Will need to get source control as soon as possible. If the patient's clinical condition worsens and were unable to improve her sepsis, may need orthopedics to intervene sooner. Anticipate we should be able to go to the OR within the next 24 hours. Currently on Zosyn and vancomycin which should be adequate. Pharmacy to dose. Await blood cultures 5. GI: N.p.o. for now. Prophylaxis will be initiated. 6. Renal: Hyponatremia likely secondary to hypovolemia. We will continue to follow with correction of volume status. ICU electrolyte replacement protocol. At risk for development of renal insufficiency. 7. Heme-onc: Mild anemia. Suspect related to chronic disease. No evidence of acute blood loss. No indication for transfusion currently. Continue to follow. DVT prophylaxis. 8. Endocrine: Poorly controlled diabetes. Think it is highly likely the patient will need to go on an insulin drip but will defer to pharmacy. Wound healing is likely impaired by the patient's poor glycemic control. Patient is severely critically ill at this point time with significant probabil ity of clinical deterioration and . A total of 78 minutes in critical care time was spent in evaluation management and stabilization of this patient including discussion with consultants. This time is exclusive of procedures. History of Present Illness Attending Physician: Vivian Faulkner MD History of Present Illness Asked by hospitalist to evaluate this patient with altered mental status and septic shock presumably from infected left ankle hardware. History is obtained from review electronic medical record and discussion with the hospitalist. Patient is obtunded and unable to provide any history. Patient is a 60-year-old female who was admitted early this morning. The patient has a history of poorly controlled diabetes as well as coronary disease and mitral regurgitation. She had a fall with associated ankle fracture in March and underwent open reduction internal fixation. She been placed on antibiotics in the form of Keflex in the outpatient setting due to concern about potential foot infection. She became increasingly lethargic at home and was brought to the emergency room. She was found to have sepsis and placed on antibiotics and admitted to the floor. Her mental continued to deteriorate on the floor. She developed a lactic acidosis as well as tachypnea and had a respiratory alkalosis on blood gas. She was transferred to the ICU. I assessed the patient on arrival to the ICU. She was obtunded. She had a fever up to 40 C. Decision was made to proceed immediately with intubation and resuscitation. Central lines and arterial line were placed. Additional IV fluids were administered and she was initiated on phenylephrine for vasopressor support. I discussed with orthopedics at bedside. Plan is to proceed with below the knee amputation once she is medically stable. Allergies Allergy/AdvReac Type Severity Reaction Status Date / Time latex Allergy Mild Rash Verified 05/14/21 21:26 aspirin Allergy Unknown UNKNOWN Verified 05/14/21 21:26 oxycodone AdvReac Intermediate HALLUCINATI Verified 05/14/21 21:26 ONS Home Medications Medication Instructions Recorded Confirmed Type atorvastatin 80 mg tablet 80 mg PO HS 03/16/21 05/14/21 History clopidogrel 75 mg tablet 75 mg PO DAILY 03/16/21 05/14/21 History donepezil 5 mg tablet 5 mg PO HS 03/16/21 05/14/21 History duloxetine 30 mg capsule,delayed 30 mg PO QAM 03/16/21 05/14/21 History release duloxetine 60 mg capsule,delayed 60 mg PO QAM 03/16/21 05/14/21 History release furosemide 20 mg tablet 60 mg PO DAILY 03/16/21 05/14/21 History lisinopril 10 mg tablet 10 mg PO DAILY 03/16/21 05/14/21 History metoprolol succinate 50 mg 100 mg PO QAM 03/16/21 05/14/21 History tablet,extended release 24 hr topiramate 50 mg tablet 50 mg PO BID 03/16/21 05/14/21 History acetaminophen 500 mg tablet 500 mg PO Q4 #100 tab 03/29/21 05/14/21 Rx (Tylenol Extra Strength) bisacodyl 10 mg rectal suppository 10 mg WI DAILY PRN #50 ea 03/29/21 05/14/21 Rx docusate sodium 100 mg capsule 100 mg PO BID PRN #60 cap 03/29/21 05/14/21 Rx magnesium hydroxide 400 mg/5 mL 30 ml PO Q6H PRN #300 ml 03/29/21 05/14/21 Rx oral suspension (Milk of Magnesia) magnesium oxide 400 mg (241.3 mg 400 mg PO QAM #30 tab 03/29/21 05/14/21 Rx magnesium) tablet multivitamin with folic acid 400 1 tab PO QAM #30 tab 03/29/21 05/14/21 Rx mcg tablet (Daily-Hardik (with folic acid)) cephalexin 500 mg capsule 500 mg PO Q6 30 Days #120 cap 05/13/21 05/14/21 Rx aspirin 81 mg tablet,delayed 81 mg PO DAILY 05/14/21 05/14/21 History release gabapentin 300 mg capsule 300 mg PO QAM 05/14/21 05/14/21 History gabapentin 300 mg capsule 600 mg PO HS 05/14/21 05/14/21 History insulin aspart U-100 100 unit/mL 0 unit SUBCUT TID 05/14/21 05/14/21 History (3 mL) subcutaneous pen (Novolog Flexpen U-100 Insulin aspart) insulin glargine 100 unit/mL (3 46 unit SUBCUT QAM 05/14/21 05/14/21 History mL) subcutaneous pen (Basaglar KwikPen U-100 Insulin) metoprolol succinate 50 mg 50 mg PO QPM 05/14/21 05/14/21 History tablet,extended release 24 hr nitroglycerin 0.4 mg sublingual 0.4 mg SUBLINGUAL .PRN/UD PRN 05/14/21 05/14/21 History tablet omeprazole 20 mg capsule,delayed 20 mg PO DAILY 05/14/21 05/14/21 History release polyethylene glycol 3350 17 gram 17 g PO DAILY 05/14/21 05/14/21 History oral powder packet (Miralax) sennosides 8.6 mg tablet (Senokot) 17.2 mg PO HS PRN 05/14/21 05/14/21 History tramadol 50 mg tablet 50 mg PO Q6H PRN 05/14/21 05/14/21 History Patient History Medical History Anxiety Carpal tunnel syndrome, left Chronic congestive heart failure with left ventricular diastolic dysfunction Coronary artery disease Diabetes mellitus, type 2 Psychotic disorder Tobacco use disorder Ulnar neuropathy at elbow of left upper extremity Surgical History Status post cholecystectomy Status post coronary artery bypass grafting Status post hysterectomy Status post ORIF of fracture of ankle R, 2017 Family History Other Diabetes Heart disease Social History Smoking Status: Former smoker Tobacco Type: Cigarettes packs per day: 1; Years Smoked: 35; Smoking End Date: 04/06; Second Hand Exposure: Yes; Hx Alcohol Use: No Hx Substance Use: No Preferred Language: Pakistani Communication Ability: Effective Ice Rink Attendant Required: No Beliefs That Will Affect Care: Adventism marital status: Current Living Situation: Alone Other Information That Helps Us Care for You: No Feels Safe at Home: Yes Safety Concerns: Feels Safe At This Time Assistive Devices: Brace/Splint/Immobilizer and Walker Review of Systems Review of Systems: Unobtainable due to reduced consciousness Physical Exam Constitutional: + in distress, + diaphoretic and + lethargic Neck: trachea midline, no thyromegaly Respiratory: normal respiratory effort, lungs clear to auscultation Cardiovascular: RRR, no murmur, no edema Gastrointestinal (Abdomen): normal bowel sounds, soft, nontender, no hepatosplenomegaly Musculoskeletal: The right ankle hardware is visible. The right foot is erythematous and swollen. Skin: no rashes, warm and dry Neurologic: Obtunded Lymphatic: no cervical lymphadenopathy Results & Data Results & Data ([facility] [place]) Vital Signs (Past 12 Hours) Vital Signs Temp Pulse Pulse Resp BP BP Pulse Ox 05/15/21 06:45 38.3 C H 130 H 40 H 160/88 H 92 05/15/21 03:55 38.3 C H 106 H 24 141/66 H 93 05/14/21 23:09 39.2 C H 100 H 20 142/79 H 98 05/14/21 23:00 100 H 05/14/21 21:30 101 H 38 H 128/66 92 05/14/21 21:01 97 H 34 H 155/78 H 100 05/14/21 21:00 96 H 38 H 99 05/14/21 20:53 95 H 40 H 159/85 H 95 Critical Care Results & Data Vital Signs (Past 12 Hours) Vital Signs Temp Pulse Pulse Resp BP BP Pulse Ox 05/15/21 06:45 38.3 C H 130 H 40 H 160/88 H 92 05/15/21 03:55 38.3 C H 106 H 24 141/66 H 93 05/14/21 23:09 39.2 C H 100 H 20 142/79 H 98 05/14/21 23:00 100 H 05/14/21 21:30 101 H 38 H 128/66 92 05/14/21 21:01 97 H 34 H 155/78 H 100 05/14/21 21:00 96 H 38 H 99 05/14/21 20:53 95 H 40 H 159/85 H 95 Lab & Micro Results (Past 24 Hours) RBC 3.22 M/uL (4.2-5.4) L 05/15/21 WBC 23.85 K/uL (4.8-10.8) H 05/15/21 Hgb 8.3 g/dL (12.0-16.0) L 05/15/21 Hct 27.8 % (37-47) L 05/15/21 MCV 86.3 fL (80-100) 05/15/21 MCH 25.8 pg (25-34) 05/15/21 MCHC 29.9 g/dL (32-36) L 05/15/21 RDW Standard Deviation 61.4 fL (36.4-46.3) H 05/15/21 RDW Coefficient of Variation 19.5 % (11.5-14.5) H 05/15/21 Plt Count 303 K/uL (130-400) 05/15/21 MPV 10.7 fL (7.4-10.4) H 05/15/21 Nucleated Red Blood Cells % (auto) 0.7 % 05/15/21 Nucleated RBC Absolute Count (auto) 0.17 K/uL (0-0) H 05/15/21 Neutrophils (%) (Auto) 85.2 % 05/14/21 Lymphocytes (%) (Auto) 6.9 % 05/14/21 Monocytes # (Auto) 1.64 K/uL (0.11-0.59) H 05/14/21 Eosinophils # (Auto) 0.01 K/uL (0-0.5) 05/14/21 Immature Granulocyte % (Auto) 1.2 % 05/14/21 Neutrophils # (Auto) 21.09 K/uL (1.4-6.5) H 05/14/21 Lymphocytes # (Auto) 1.70 K/uL (1.2-3.4) 05/14/21 Monocytes # (Auto) 1.64 K/uL (0.11-0.59) H 05/14/21 Eosinophils # (Auto) 0.01 K/uL (0-0.5) 05/14/21 Basophils # (Auto) 0.03 K/uL (0-0.2) 05/14/21 Immature Granulocyte # (Auto) 0.29 K/uL (0.00-0.02) H 05/14/21 ANC 22.18 K/uL (1.4-6.5) H 05/15/21 ALC 1.03 K/uL (1.2-3.4) L 05/15/21 Neutrophils % (Manual) 93.0 % 05/15/21 Lymphocytes % (Manual) 4.3 % 05/15/21 Monocytes % (Manual) 0.9 % 05/15/21 Eosinophils % (Manual) 0.9 % 05/15/21 Basophils % (Manual) 0.9 % 05/15/21 Neutrophils # (Manual) 22.18 K/uL (1.4-6.5) H 05/15/21 Lymphocytes # (Manual) 1.03 K/uL (1.2-3.4) L 05/15/21 Monocytes # (Manual) 0.21 K/uL (0.11-0.59) 05/15/21 Eosinophils # (Manual) 0.21 K/uL (0-0.5) 05/15/21 Basophils # (Manual) 0.21 K/uL (0-0.2) H 05/15/21 Polychromasia 1+ 05/15/21 Hypochromasia Present 05/14/21 Anisocytosis Present 05/14/21 Toxic Vacuolation 1+ 05/15/21 Na 131 mmol/L (136-145) L 05/15/21 K 4.1 mmol/L (3.5-5.1) 05/15/21 Cl 104 mmol/L (98-107) 05/15/21 CO2 18 mmol/L (21-32) L 05/15/21 Anion Gap 9 (3-11) 05/15/21 BUN 14 mg/dl (6-23) 05/15/21 Creatinine 0.94 mg/dl (0.6-1.2) 05/15/21 Estimated GFR ( Amer) 75.4 ml/min 05/15/21 Estimated GFR (Non-Af Amer) 65.0 ml/min 05/15/21 BUN/Creatinine Ratio 14.9 (10-20) 05/15/21 Glu 280 mg/dl (70-99(Fasting)) H 05/15/21 Ca 7.8 mg/dl (8.5-10.1) L 05/15/21 Total Bilirubin 0.8 mg/dl (0.2-1.0) 05/14/21 Direct Bilirubin 0.2 mg/dl (0-0.2) 05/14/21 AST 44 U/L (13-39) H 05/14/21 ALT 41 U/L (7-52) 05/14/21 Alkaline Phosphatase 112 U/L (34-104) H 05/14/21 TP 6.5 gm/dl (6.0-8.3) 05/14/21 Albumin 2.7 gm/dl (3.4-5.0) L 05/14/21 Mg 1.7 mg/dl (1.7-2.4) 05/15/21 04:55 05/15/21 Calcium Level 7.8 mg/dl (8.5-10.1) L 05/15/21 04:55 05/15/21 Prothromb Time International Ratio 1.2 (0.9-1.1) H 05/14/21 18:10 05/14/21 Blood Gas Barometric Pressure 734.4 mm/Hg 05/15/21 04:55 05/15/21 Arterial Blood pH 7.45 (7.35-7.45) 05/15/21 04:55 05/15/21 Arterial Blood Partial Pressure CO2 28 mmHg (35-46) L 05/15/21 04:55 05/15/21 Arterial Blood Partial Pressure O2 64 mmHg (80-95) L 05/15/21 04:55 05/15/21 Arterial Blood HCO3 19 mmol/L (19-24) 05/15/21 04:55 05/15/21 Arterial Blood Base Excess -3.6 mEq/L (-9-1.8) 05/15/21 04:55 05/15/21 Arterial Blood Oxygen Saturation 91.5 % (90-95) 05/15/21 04:55 05/15/21 Blood Gas Oxygen Given 3L 05/15/21 04:55 05/15/21 Christopher Test Pos (Pos) 05/15/21 04:55 05/15/21 Blood Gas Barometric Pressure 734.4 mm/Hg 05/15/21 04:55 05/15/21 Diagnostic Findings (Past 24 Hours) Head CT 05/14/21 18:12 CT OF THE HEAD WITHOUT CONTRAST CLINICAL HISTORY: Altered mental status. COMPARISON STUDY: Head CT March 16, 2021. CT DOSE: 3438.74 mGy.cm TECHNIQUE: Helical axial images of the head were obtained without IV contrast. Automated exposure control was utilized for the study. A dose lowering technique was utilized adhering to the principles of ALARA. FINDINGS: This study is mildly compromised by motion artifact. No acute intracr anial hemorrhage, midline shift or mass effect is present. The ventricular system is unremarkable. The basal cisterns are patent. No extra-axial collections are present. There are no findings to suggest acute dural sinus thrombosis or acute territorial infarct. No significant calvarial abnormalities are present. Visualized portions of the sinuses and mastoid air cells are clear. IMPRESSION: No acute intracranial findings. Exam mildly compromised by motion artifact. ACT 112: Negative or not required by law. Electronically signed by: Grover Delacruz M.D. 05/14/2021 7:20 PM Chest X-Ray 05/14/21 18:13 XR chest 1V portable CLINICAL HISTORY: Shortness of breath. Fall. COMPARISON STUDY: Chest CT March 16, 2021. Chest radiograph March 18, 2021. FINDINGS: No pneumothorax or pleural effusion is present. Median sternotomy wires are present as well as mediastinal surgical clips. Cardiomegaly is unchanged. There is no evidence for pulmonary edema. IMPRESSION: No acute cardiopulmonary findings. ACT 112: Negative or not required by law. Electronically signed by: Grover Delacruz M.D. 05/14/2021 6:28 PM Pelvis X-Ray 05/14/21 18:13 XR pelvis 1-2V routine CLINICAL HISTORY: fall COMPARISON: Pelvis radiograph and CT of the abdomen and pelvis March 16, 2021. FINDINGS: Pelvic calcifications likely reflect phleboliths and vascular calcifications. Sacroiliac joints and symphysis pubis are intact. No acute fracture within the pelvis or hips is identified. Degenerative changes of the symphysis pubis are noted. IMPRESSION: No acute fracture within the pelvis or hips. ACT 112: Negative or not required by law. Electronically signed by: Grover Delacruz M.D. 05/14/2021 6:27 PM Chest X-Ray 05/15/21 07:23 XR chest 1V portable HISTORY: 60 years-old Female congestion acute shortness of breath with congestion COMPARISON: Chest radiograph 05/14/2021 TECHNIQUE: Semierect AP view of the chest FINDINGS: Endotracheal tube overlies the midline, 1.8 cm superior to the ava. Left subclavian central venous catheter distal tip projects of the right atrium. Enteric tube distal tip projects over the mid stomach. Cholecystectomy. No pneumothorax or large pleural effusion. Pulmonary vascular congestion with mild interstitial coarsening. The bones appear grossly intact. IMPRESSION: 1. Lines and tubes as above. 2. Cardiomegaly with suggestion of mild pulmonary edema. 3. No pneumothorax. ACT 112: Negative or not required by law. The above report was generated using voice recognition software. It may contain grammatical, syntax or spelling errors. Electronically signed by: Alexi Wu M.D. 05/15/2021 8:28 AM I & O Totals 24 Hours 05/14/21 05/15/21 05/16/21 06:59 06:59 06:59 Intake Total 2049 855.52 / 855.52 Balance 2049 855.52 / 855.52 Cumulative 05/14/21 17:44 thru 05/15/21 08:35 Intake Total 2905.52 Balance 2905.52 RT Ventilator Mngmt (Last Documented) Ventilator Ordered Settings Respiratory Rate 40 05/15/21 06:45 Ventilator - PT Measurements Respiratory Rate 40 Coding Level of Care Code Critical Care 1st 30-74 mins Diagnoses Severe sepsis with septic shock A41.9; R65.21 Poorly controlled diabetes mellitus E11.65 Osteomyelitis M86.9 Lactic acidosis E87.2 Anemia D64.9 Hyponatremia E87.1 Time Spent (min) 78 Comment [id number] and [id number]
[2021-05-15] MEDS ORDERED: CALCIUM CHLORIDE 10% 1,000 MG in DEXTROSE 5% 50 ML IV ONE (09:00)
[2021-05-15] MEDS ORDERED: CLOPIDOGREL BISULFATE 75 MG TAB PO SCH (09:00)
[2021-05-15] MEDS ORDERED: ASPIRIN 81 MG ECTAB PO SCH (09:00)
[2021-05-15] MEDS ORDERED: INSULIN GLARGINE SOLOSTAR 100 UNITS/ML 3 ML PEN SC ONE (09:00)
[2021-05-15] MEDS ORDERED: GABAPENTIN 300 MG CAP PO SCH ×2 (09:00→21:00)
[2021-05-15] MEDS ORDERED: MULTIVITAMIN TAB PO SCH (09:00)
[2021-05-15] MEDS ORDERED: PANTOprazole 40 MG TAB PO SCH (09:00)
[2021-05-15] MEDS ORDERED: MAGNESIUM OXIDE 400 MG TAB PO SCH (09:00)
[2021-05-15] MEDS ORDERED: DULoxetine HCL 30 MG CAP PO SCH (09:00)
[2021-05-15] MEDS ORDERED: DULoxetine HCL 60 MG CAP PO SCH (09:00)
[2021-05-15] MEDS ORDERED: ENOXAPARIN INJ 40 MG/0.4 ML SYR SQ SCH (09:00)
[2021-05-15] MEDS: NORMOSOL-R 1,000 ML IV SCH ×2 (09:14→17:02)
--- NOTE | 2021-05-15 09:15 | Orthopedic Consultation ---
Date of Service May 15, 2021 Assessment & Plan (1) Bone infection of left ankle: Patient has an obvious wound dehiscence and left ankle infectionstatus post ORIF. She got exposed hardware. Unfortunate with her met multiple medical comorbidities there is no way she is can heal this as short of amputation. Is very possible and likely that this ankle infection could be the source of sepsis. Does not look real bad in her ankle but obviously she appears septic. Treatment in my opinion is below-knee amputation. I think short of this is unlikely to heal her problem. Even below-knee amputation and may not heal. I discussed this with her daughter who is her power of collections attorney and she would like to I discussed this with her sister. They can get back to me. In the meantime we will continue antibiotics as per the ICU and medical staff. Routine wound care. Were hoping to do this tomorrow. (2) Bimalleolar fracture of left ankle: (3) Lisfranc fracture: History of Present Illness Reason for Consultation: . Left ankle wound and infection Requesting Physician: . Attending Physician: Vivian Faulkner MD . Patient is a 60-year-old female with multiple medical comorbidities who is now 2 months out from ORIF of her left bimalleolar ankle fracture and conservative care of her Lisfranc injury. I just seen her in clinic just couple days ago. Had a 2-week visit that things are looking reasonably well. Has had several falls since then and is had some opening of the wounds on both sides. We saw her in clinic couple days ago and she had some wound dehiscence but nothing too bad. A little bit of drainage but no real major cellulitis but we put her on some Keflex. Over the past day or 2 she is become more confused brought to emergency room by her daughter. She has been admitted now intubated. We are consulted for her left ankle wound and problem. Allergies Allergy/AdvReac Type Severity Reaction Status Date / Time latex Allergy Mild Rash Verified 05/14/21 21:26 aspirin Allergy Unknown UNKNOWN Verified 05/14/21 21:26 oxycodone AdvReac Intermediate HALLUCINATI Verified 05/14/21 21:26 ONS Home Medications Medication Instructions Recorded Confirmed Type atorvastatin 80 mg tablet 80 mg PO HS 03/16/21 05/14/21 History clopidogrel 75 mg tablet 75 mg PO DAILY 03/16/21 05/14/21 History donepezil 5 mg tablet 5 mg PO HS 03/16/21 05/14/21 History duloxetine 30 mg capsule,delayed 30 mg PO QAM 03/16/21 05/14/21 History release duloxetine 60 mg capsule,delayed 60 mg PO QAM 03/16/21 05/14/21 History release furosemide 20 mg tablet 60 mg PO DAILY 03/16/21 05/14/21 History lisinopril 10 mg tablet 10 mg PO DAILY 03/16/21 05/14/21 History metoprolol succinate 50 mg 100 mg PO QAM 03/16/21 05/14/21 History tablet,extended release 24 hr topiramate 50 mg tablet 50 mg PO BID 03/16/21 05/14/21 History acetaminophen 500 mg tablet 500 mg PO Q4 #100 tab 03/29/21 05/14/21 Rx (Tylenol Extra Strength) bisacodyl 10 mg rectal suppository 10 mg SD DAILY PRN #50 ea 03/29/21 05/14/21 Rx docusate sodium 100 mg capsule 100 mg PO BID PRN #60 cap 03/29/21 05/14/21 Rx magnesium hydroxide 400 mg/5 mL 30 ml PO Q6H PRN #300 ml 03/29/21 05/14/21 Rx oral suspension (Milk of Magnesia) magnesium oxide 400 mg (241.3 mg 400 mg PO QAM #30 tab 03/29/21 05/14/21 Rx magnesium) tablet multivitamin with folic acid 400 1 tab PO QAM #30 tab 03/29/21 05/14/21 Rx mcg tablet (Daily-Hardik (with folic acid)) cephalexin 500 mg capsule 500 mg PO Q6 30 Days #120 cap 05/13/21 05/14/21 Rx aspirin 81 mg tablet,delayed 81 mg PO DAILY 05/14/21 05/14/21 History release gabapentin 300 mg capsule 300 mg PO QAM 05/14/21 05/14/21 History gabapentin 300 mg capsule 600 mg PO HS 05/14/21 05/14/21 History insulin aspart U-100 100 unit/mL 0 unit SUBCUT TID 05/14/21 05/14/21 History (3 mL) subcutaneous pen (Novolog Flexpen U-100 Insulin aspart) insulin glargine 100 unit/mL (3 46 unit SUBCUT QAM 05/14/21 05/14/21 History mL) subcutaneous pen (Basaglar KwikPen U-100 Insulin) metoprolol succinate 50 mg 50 mg PO QPM 05/14/21 05/14/21 History tablet,extended release 24 hr nitroglycerin 0.4 mg sublingual 0.4 mg SUBLINGUAL .PRN/UD PRN 05/14/21 05/14/21 History tablet omeprazole 20 mg capsule,delayed 20 mg PO DAILY 05/14/21 05/14/21 History release polyethylene glycol 3350 17 gram 17 g PO DAILY 05/14/21 05/14/21 History oral powder packet (Miralax) sennosides 8.6 mg tablet (Senokot) 17.2 mg PO HS PRN 05/14/21 05/14/21 History tramadol 50 mg tablet 50 mg PO Q6H PRN 05/14/21 05/14/21 History Past Med/Surg History Medical History (Updated 05/15/21 @ 09:13 by Casa Yo MD) Anxiety Bone infection of left ankle Carpal tunnel syndrome, left Chronic congestive heart failure with left ventricular diastolic dysfunction Coronary artery disease Diabetes mellitus, type 2 Psychotic disorder Tobacco use disorder Ulnar neuropathy at elbow of left upper extremity Surgical History Status post cholecystectomy Status post coronary artery bypass grafting Status post hysterectomy Status post ORIF of fracture of ankle R, 2017 Family History Other Diabetes Heart disease Social History Smoking Status: Former smoker Tobacco Type: Cigarettes packs per day: 1; Years Smoked: 35; Smoking End Date: 04/06; Second Hand Exposure: Yes; Hx Alcohol Use: No Hx Substance Use: No Preferred Language: Citizen Of [place] Communication Ability: Effective Web Methods Developer Required: No Beliefs That Will Affect Care: Muslim marital status: Current Living Situation: Alone Other Information That Helps Us Care for You: No Feels Safe at Home: Yes Safety Concerns: Feels Safe At This Time Assistive Devices: Brace/Splint/Immobilizer and Walker Review of Systems All systems reviewed & are unremarkable except as noted in HPI & below. Physical Exam . Physical examination of left ankle reveals some fairly mild swelling. She does have wound dehiscence on both sides of the ankle with hardware exposed on the medial side. There are some small amounts of purulence. Fairly minimal cellulitis. Some slight drainage. She is intubated and cannot really follow commands to assess motor function. Some moderate midfoot swelling. Results & Data Results & Data Laboratory Results . Diagnostic Findings . PG Care Time/CCT Total # of Minutes Spent Total Time Spent with Patient: Total time spent is greater than 50% in coordination of care (as documented) at patient's floor/unit and/or counseling patient: Coding Level of Care Code 51892 Inpt Consult Level 5 Diagnoses Bone infection of left ankle M86.9 Bimalleolar fracture of left ankle S82.842A Lisfranc fracture
[2021-05-15 09:17] LABS: iSTAT Arterial Blood Gas HCO3 15 meg/L (19-24); iSTAT Arterial Blood Gas pCO2 27 mmHg (35-46); iSTAT Arterial Blood Gas pH 7.35 (7.35-7.45); iSTAT Arterial Blood Gas pO2 133 mmHg (80-95); iSTAT Carbon Dioxide 16 mmol/L (24-31); iSTAT FiO2 60 %; iSTAT Site Art Line
[2021-05-15] MEDS ORDERED: Nursing to Pharmacy Communication SCH (09:30)
[2021-05-15] MEDS ORDERED: ACETAMINOPHEN SUSP 325 MG/10.15 ML UDC OG PRN (09:34)
[2021-05-15] MEDS ORDERED: DOCUSATE SODIUM SYRUP 100 MG/10 ML UDC PO PRN (09:36)
[2021-05-15] MEDS ORDERED: SENNOSIDES 8.8 MG/5 ML UDC PO PRN (09:42)
[2021-05-15] MEDS ORDERED: DOCUSATE SODIUM SYRUP 100 MG/10 ML UDC NG PRN (09:45)
[2021-05-15] MEDS ORDERED: POLYETHYLENE (MIRALAX) 17 GM PACK NG PRN (09:45)
--- NOTE | 2021-05-15 09:58 | Electrocardiogram Report ---
Test Reason : Blood Pressure : / mmHG Vent. Rate : 087 BPM Atrial Rate : 087 BPM P-R Int : 140 ms QRS Dur : 160 ms QT Int : 452 ms P-R-T Axes : 056 -51 062 degrees QTc Int : 543 ms Normal sinus rhythm Possible Left atrial enlargement Left axis deviation Left bundle branch block Abnormal ECG When compared with ECG of 16-MAR-2021 14:14, QRS axis Shifted left Confirmed by Abraham De Leon ([id number]) on 05/15/2021 9:57:51 AM Referred By: REFERRED SELF Confirmed By:Abraham De Leon
[2021-05-15] MEDS ORDERED: ASPIRIN 81 MG CHEW NG ONE (10:00)
[2021-05-15] MEDS ORDERED: TOPIRAMATE 50 MG TAB PO ONE (10:00)
[2021-05-15] MEDS ORDERED: LANSOPRAZOLE 30 MG SOLTAB NG ONE (10:00)
[2021-05-15] MEDS ORDERED: MULTI VIT W/MINERALS LIQUID 15 ML UDP NG ONE (10:00)
[2021-05-15] MEDS ORDERED: MAGNESIUM OXIDE 400 MG TAB NG ONE (10:00)
[2021-05-15] MEDS: TOPIRAMATE 50 MG TAB PO SCH ×2 (10:08→20:09)
[2021-05-15 11:24] LABS: BUN Creatinine Ratio 14.8 (10-20); Calcium 8.1 mg/dl (8.5-10.1); Creatinine Clr Calc Pharmacy 50.6 ml/min; Est GFR (African American) 63.7 ml/min; Potassium 4.2 mmol/L (3.5-5.1)
[2021-05-15 11:29] LABS: Troponin I 0.1 ng/ml (0-0.04)
[2021-05-15 11:31] LABS: Phosphorus 1.2 mg/dl (2.5-4.9)
[2021-05-15] MEDS ORDERED: INSULIN ASPART PER UNIT SC SCH (12:00)
[2021-05-15] MEDS: ICU ELECTROLYTE REPLACEMENT PROTOCOL SCH ×2 (12:05→17:02)
[2021-05-15] MEDS ORDERED: SODIUM PHOSPHATE 3 MMOL/1 ML INFUSION IV STA (12:06)
[2021-05-15] MEDS ORDERED: SODIUM PHOSPHATE 30 MMOL in SODIUM CHLORIDE 0.9% 500 ML IV ONE (12:30)
[2021-05-15] MEDS ORDERED: INSULIN REGULAR 250 UNITS in SODIUM CHLORIDE 0.9% 247.5 ML IV SCH (12:45)
[2021-05-15] MEDS ORDERED: NovoLIN-R BOLUS FROM BAG IV ONE (12:45)
[2021-05-15] MEDS: MAGNESIUM SULFATE / D5W 1 GM/100 ML BAG IV SCH ×4 (12:55→19:22)
[2021-05-15] MEDS: HEPARIN SOD 5,000 UNIT/0.5 ML VIAL SQ SCH ×2 (12:58→20:07)
--- NOTE | 2021-05-15 13:18 | Pharmacy Report ---
Pharmacy Glycemic Short Note 2 - Date of Service May 15, 2021 - Glycemic Short BSG Results (Last 24 hours): 05/14/21 05/14/21 05/14/21 18:10 18:14 21:58 Glucose 544 H* POC Glucose 598 H* 514 H* 05/14/21 05/15/21 05/15/21 22:42 02:34 04:32 Glucose POC Glucose 493 H* 373 H* 333 H* 05/15/21 05/15/21 05/15/21 04:55 06:21 09:03 Glucose 280 H POC Glucose 263 H 298 H 05/15/21 10:47 Glucose 234 H POC Glucose OUTPATIENT ANTIDIABETIC REGIMEN: * Basaglar 46 units SQ qAM * Novolog sliding scale * HbA1C = 10.3% (05/15/21) ASSESSMENT: * Ms Welch is a 60 y/o F with a PMH of T2DM on insulin who presents with infection and MRSA bacteremia. Patient was intubated this morning. Currently not on pressors. * Initially, patient's BSGs on admission were [phone] mg/dL. Patient received 7 units of IV insulin @2209 and 12 units of Lantus @ 0041. * BSGs remained elevated through the night. BSG at 0200 was 373 mg/dL and patient received additional 10 units of Novolog. * BSG in the morning was 263 mg/dL. This was corrected with Novolog and 15 units of Lantus. Lantus initially given prior to intubation. Patient typically requires around 30-40 units of Lantus per day per previous hospitalization. * After patient was intubated, BSGs remained greater than 200 mg/dL despite correctional insulin. * Initiated insulin infusion at 0.1 units/kg/hr and will follow. PLAN FOR INPATIENT GLYCEMIC CONTROL: * Insulin infusion per calculator
--- NOTE | 2021-05-15 16:23 | Hospitalist Progress Note ---
Date of Service May 15, 2021 Assessment & Plan (1) Severe sepsis: Plan: Secondary to infected wound/osteomyelitis of the left ankle Gram-positive bacteremia Her blood pressure dropped while in the hospital and almost in septic shock She was transferred to ICU and was intubated Has been on intravenous Zosyn and vancomycin Blood culture is growing gram-positive cocci in clusters in 2 x 2 bottles Will need ID consultation and will continue current antibiotics Await sensitivity (2) Bone infection of left ankle: Plan: History of bimalleolar fracture of the ankle in March, Status post repair with hardware placement Has infection in the open wound and likely has osteomyelitis which is the source of sepsis Appreciate Ortho input and recommendation for possible below-knee amputation planned for tomorrow, on 05/16/2021 (3) Bimalleolar fracture of left ankle: Plan: As above (4) (HFpEF) heart failure with preserved ejection fraction: Plan: History of CHF as above Limiting use of IV fluid for sepsis (5) Diabetes mellitus, type 2: Plan: Diabetes seems to be uncontrolled Diabetic neuropathy Hemoglobin A1c noted to be high at 10.3 Glycemic pharmacist has been consulted Has been on intravenous insulin (6) Electrolyte imbalance: Plan: Has significant electrolyte imbalance including Hypophosphatemia and hyponatremia We will replace and monitor Mild anemia Likely secondary to sepsis We will monitor. CAD status post CABG Mild elevation of troponin Likely secondary to sepsis and a stress induced Doubt any ACS Plan: DVT prophylaxis Subcu heparin CODE STATUS Full Discussed with the daughter and granddaughter Admission and Anticipated Discharge Date Admission Date: May 14, 2021 Subjective 05/15/2021 The patient was seen and examined in ICU in presence of the daughter She remains intubated and stable Has not been requiring any pressor resents to maintain blood pressure Review of Systems Review of Systems: Unobtainable due to endotracheal tube Physical Exam Physical Exam: Remains sedated and intubated Constitutional: well developed, well nourished, + ill appearing and average body habitus Eyes: Closed ENMT: external ear and nose normal, oropharynx normal Neck: trachea midline, no thyromegaly Respiratory: Diminished breath sounds at the dependent area Cardiovascular: Rate/Rhythm: regular rate and regular rhythm; not tachycardic Heart Sounds: normal S1 and normal S2; no murmur Extremities: no edema Gastrointestinal (Abdomen): Inspection/Auscultation: normal bowel sounds; abdomen not distended Percussion/Palpation: abdomen soft; abdomen nontender Musculoskeletal: Ankle: + ankle abnormal to inspection (Left ankle is bandaged) Neurologic: Sedated and intubated Results & Data Results & Data ([facility]) Vital Signs (Past 12 Hours) Vital Signs Temp Pulse Pulse Resp BP BP Pulse Ox 05/15/21 13:00 37.2 C 77 21 120/66 100 05/15/21 12:52 37.3 C 78 20 114/64 100 05/15/21 12:22 37.4 C 05/15/21 12:00 37.5 C 81 21 100 05/15/21 11:32 83 20 100 05/15/21 11:00 37.9 C H 84 22 99 05/15/21 10:00 38.5 C H 94 H 27 H 97 05/15/21 09:32 20 05/15/21 09:25 96 H 30 H 100 05/15/21 09:00 39.3 C H 93 H 26 H 100 05/15/21 08:45 122 H 05/15/21 08:22 40.6 C H 89 35 H 109/94 79 L 05/15/21 08:20 40.7 C H 101 H 28 H 93/44 L 89 L 05/15/21 08:19 40.7 C H 103 H 21 98/48 L 95 05/15/21 08:16 40.7 C H 106 H 30 H 99/55 L 97 05/15/21 08:14 40.8 C H 107 H 29 H 100/49 L 05/15/21 08:12 40.8 C H 106 H 25 H 104/60 96 05/15/21 08:10 40.8 C H 106 H 26 H 115/48 L 99 05/15/21 08:08 40.8 C H 107 H 31 H 110/58 L 95 05/15/21 08:06 40.8 C H 109 H 30 H 114/69 99 05/15/21 08:05 40.8 C H 108 H 31 H 106/54 L 99 05/15/21 08:03 40.8 C H 98 05/15/21 08:00 40.9 C H 105/67 100 05/15/21 07:46 112 H 39 H 147/96 H 100 05/15/21 06:45 38.3 C H 130 H 40 H 160/88 H 92 05/15/21 03:55 38.3 C H 106 H 24 141/66 H 93 Laboratory Results Short CBC 05/14/21 05/15/21 Range/Units 18:10 04:55 WBC 24.76 H 23.85 H (4.8-10.8) K/uL Hgb 7.7 L 8.3 L (12.0-16.0) g/dL Hct 25.8 L 27.8 L (37-47) % Plt Count 304 303 (130-400) K/uL BMP 05/14/21 05/15/21 05/15/21 18:10 04:55 10:47 Sodium 128 L 131 L 133 L Potassium 2.7 L 4.1 D 4.2 Chloride 96 L 104 109 H Carbon Dioxide 25 18 L 20 L BUN 14 14 16 Creatinine 0.99 0.94 1.08 Glucose 544 H* 280 H 234 H Calcium 7.6 L 7.8 L 8.1 L Cardiac Enzymes 05/14/21 05/15/21 05/15/21 Range/Units 18:10 04:55 10:47 Troponin I 0.06 H* 0.09 H* 0.10 H* (0-0.04) ng/ml Liver Function 05/14/21 Range/Units 18:10 Total Bilirubin 0.8 (0.2-1.0) mg/dl Direct Bilirubin 0.2 (0-0.2) mg/dl AST 44 H (13-39) U/L ALT 41 (7-52) U/L Alkaline Phosphatase 112 H (34-104) U/L Albumin 2.7 L (3.4-5.0) gm/dl Urine 05/14/21 Range/Units 19:33 Urine Color Yellow Urine Appearance Clear (Clear) Urine pH 5.0 (4.5-7.5) Ur Specific [place] 1.022 (1.000-1.030) Urine Protein Negative (Negative) Urine Glucose (UA) 3+ H (Negative) Medications Administered Current Inpatient Medications Acetaminophen (Acetaminophen Susp 325 Mg/10.15 Ml Udc) 650 mg OG Q4H PRN PRN Reason: Pain or Fever Stop: 06/14/21 09:33 Aspirin (Aspirin 81 Mg Chew) 81 mg NG DAILY SAMANTHA Stop: 06/15/21 08:59 Atorvastatin Calcium (Atorvastatin 40 Mg Tab) 80 mg NG HS SAMANTHA Stop: 06/14/21 20:59 Bisacodyl (Bisacodyl 10 Mg Supp) [address] DAILY PRN PRN Reason: constipation Stop: 06/13/21 23:07 Docusate Sodium (Docusate Sodium Syrup 100 Mg/10 Ml Udc) 100 mg NG BID PRN PRN Reason: Constipation Stop: 06/14/21 09:35 Donepezil HCl (Donepezil Hcl 5 Mg Tab) 5 mg PO HS SAMANTHA Stop: 06/14/21 20:59 Fentanyl Citrate (Fentanyl Citrate 100 Mcg/2 Ml Vial) 50 mcg IV Q2H PRN PRN Reason: Moderate Pain (4,5,6) on NRS Stop: 05/29/21 08:43 Gabapentin (Gabapentin 250 Mg/5 Ml 470 Ml Btl) 300 mg NG QAM SAMANTHA Stop: 06/15/21 08:59 Gabapentin (Gabapentin 250 Mg/5 Ml 470 Ml Btl) 600 mg NG HS [facility] Stop: 06/14/21 20:59 Heparin Sodium (Porcine) (Heparin Sod 5,000 Unit/0.5 Ml Vial) 5,000 units SQ Q8 SAMANTHA Stop: 06/14/21 13:59 Last Admin: 05/15/21 12:58 Dose: 5,000 units Documented by: Piperacillin Sod/Tazobactam (Sod 3.375 gm/ Dextrose) 115 mls @ 28.75 mls/hr IV Q8H [facility]; Protocol Stop: 05/22/21 05:59 Last Admin: 05/15/21 15:32 Dose: 28.8 mls/hr Documented by: Vancomycin HCl 750 mg/ Sodium (Chloride) 265 mls @ 200 mls/hr IV Q12H SAMANTHA Stop: 05/22/21 07:59 Last Infusion: 05/15/21 09:47 Dose: Infused Documented by: Propofol (Diprivan) 1,000 mg in 100 mls @ 6.309 mls/hr IV .[id number] [facility]; Protocol Stop: 05/18/21 08:29 Last Titration: 05/15/21 09:40 Dose: 15 mcg/kg/min, 6.3 mls/hr Documented by: Phenylephrine HCl 20 mg/ (Dextrose) 502 mls @ 0 mls/hr IV .Q0M [facility]; Protocol Stop: 06/14/21 08:29 Last Titration: 05/15/21 08:35 Dose: 0 mcg/kg/min, 0 mls/hr Documented by: Parenteral Electrolytes (Plasma-Lyte A) 1,000 mls @ 150 mls/hr IV .Q6H40M [facility] Stop: 06/14/21 08:44 Last Admin: 05/15/21 09:14 Dose: 150 mls/hr Documented by: Magnesium Sulfate/Dextrose (Magnesium Sulfate / D5w) 1 gm in 100 mls @ 50 mls/hr IV Q2H [facility] Stop: 05/15/21 20:14 Last Admin: 05/15/21 14:42 Dose: 50 mls/hr Documented by: Sodium Phosphate 30 mmol/ (Sodium Chloride) 510 mls @ 88 mls/hr IV ONE ONE Stop: 05/15/21 18:17 Last Admin: 05/15/21 12:43 Dose: 88 mls/hr Documented by: Insulin Human Regular 250 (units/ Sodium Chloride) 250 mls @ 3.2 mls/hr IV .Q24H [facility]; Protocol Stop: 06/14/21 12:44 Last Titration: 05/15/21 15:24 Dose: 3.2 units/hr, 3.2 mls/hr Documented by: Insulin Aspart (Insulin Aspart 100 Units/Ml 3 Ml Pen) 0 units SC ACHS [facility] Stop: 06/14/21 16:29 Lansoprazole (Lansoprazole 30 Mg Soltab) 30 mg NG DAILY [facility] Stop: 06/15/21 08:59 Magnesium Oxide (Magnesium Oxide 400 Mg Tab) 400 mg NG QAM [facility] Stop: 06/14/21 08:59 Miscellaneous (Icu Electrolyte Replacement Protocol) 1 ea N/A BID@06,18 [facility]; Protocol Stop: 05/22/21 17:59 Last Admin: 05/15/21 12:05 Dose: 1 ea Documented by: Miscellaneous (Icu Protocol For Hyperglycemia) 1 ea N/A PRN PRN; Protocol PRN Reason: Hyperglycemia Protocol Stop: 05/17/21 08:43 Miscellaneous Information (Vancomycin Consult Active) 1 ea N/A UD PRN PRN Reason: Consult Stop: 06/13/21 19:56 Miscellaneous Information (Piperacill/Tazobac Consult Active) 1 ea N/A UD PRN PRN Reason: Consult Stop: 06/13/21 23:07 Miscellaneous Information (Pharmacy Glycemic Mgmt Consult) 1 ea N/A UD PRN PRN Reason: Consult Stop: 06/13/21 23:07 Multivitamins/Minerals (Multi Vit W/Minerals Liquid 15 Ml Udp) 15 ml NG QAM SAMANTHA Stop: 06/15/21 08:59 Polyethylene Glycol (Polyethylene (Miralax) 17 Gm Pack) 17 gm NG DAILY PRN PRN Reason: Constipation Stop: 06/13/21 23:07 Propofol (Propofol Bolus From Bag) 20 mg IV Q5M PRN PRN Reason: Sedation Stop: 05/18/21 08:19 Last Admin: 05/15/21 08:26 Dose: 20 mg Documented by: Sennosides (Sennosides 8.8 Mg/5 Ml Udc) 17.2 mg PO HS PRN PRN Reason: Constipation Stop: 06/14/21 09:41 Topiramate (Topiramate 50 Mg Tab) 50 mg PO BID SAMANTHA Stop: 06/14/21 08:59 Last Admin: 05/15/21 10:08 Dose: Not Given Documented by:
[2021-05-15] MEDS: INSULIN ASPART 100 UNITS/ML 3 ML PEN SC SCH ×2 (16:54→20:08)
[2021-05-15] MEDS: GABAPENTIN 250 MG/5 ML 470 ML BTL NG SCH (20:08)
[2021-05-15] MEDS: ATORVASTATIN 40 MG TAB NG SCH (20:08)
[2021-05-15] MEDS: DONEPEZIL HCL 5 MG TAB PO SCH (20:08)
[2021-05-15] MEDS ORDERED: ETOMIDATE 2 MG/ML 20 ML VIAL IV ONE (20:25)
[2021-05-15] MEDS ORDERED: MIDAZOLAM HCL 5 MG/ML 1 ML VIAL IV ONE (20:25)
[2021-05-15] MEDS ORDERED: METOPROLOL SUCC 50MG EXT REL TAB PO SCH (21:00)
[2021-05-15] MEDS ORDERED: ATORVASTATIN 40 MG TAB PO SCH (21:00)
[2021-05-16] MEDS: NORMOSOL-R 1,000 ML IV SCH ×3 (01:04→17:53)
[2021-05-16] MEDS: INSULIN ASPART PER UNIT SC SCH ×6 (04:27→23:57)
[2021-05-16 05:04] LABS: Base Excess ABG 0.3 mEq/L (-9-1.8); HCO3 ABG 24 mmol/L (19-24); Oxygen Saturation ABG 95.5 % (90-95); PCO2 ABG 34 mmHg (35-46); PO2 ABG 78 mmHg (80-95); pH ABG 7.47 (7.35-7.45)
[2021-05-16 05:17] LABS: Hematocrit (blood only) 21.9 % (37-47); Hemoglobin 6.7 g/dL (12.0-16.0); Mean Corpuscular Hemoglobin 25.7 pg (25-34); Mean Corpuscular Hgb Conc 30.6 g/dL (32-36); Mean Corpuscular Volume 83.9 fL (80-100); Mean Platelet Volume 10.9 fL (7.4-10.4); Nucleated RBC # (auto) 0.07 K/uL (0-0); Nucleated RBC % (auto) 0.3 %; Platelet Count 213 K/uL (130-400); RDW Coefficient of Variation 19.7 % (11.5-14.5); RDW Standard Deviation 59.9 fL (36.4-46.3); Red Blood Count 2.61 M/uL (4.2-5.4)
[2021-05-16 05:17] LABS: Allen Test POS (Pos)
[2021-05-16 05:19] LABS: Eosinophils # (manual) 0.34 K/uL (0-0.5); Eosinophils % (manual) 1.7 %; Hypochromasia Present; Lymphocytes % (manual) 3.5 %; Monocytes # (manual) 0.86 K/uL (0.11-0.59); Monocytes % (manual) 4.3 %; Neutrophils % (manual) 90.5 %; Polychromasia 1+
[2021-05-16] MEDS: PIPERACILLIN/TAZOBACTAM 3.375 GM in DEXTROSE 5% 100 ML IV SCH ×3 (05:22→21:46)
[2021-05-16 05:43] LABS: Albumin Globulin Ratio 0.7 (0.9-2); Albumin Level 2.1 gm/dl (3.4-5.0); BUN Creatinine Ratio 15.7 (10-20); Bilirubin Direct 0.6 mg/dl (0-0.2); Bilirubin,Total 1.1 mg/dl (0.2-1.0); Calcium 7.2 mg/dl (8.5-10.1); Creatinine Clr Calc Pharmacy 63.3 ml/min; Est GFR (African American) 87.6 ml/min; Est GFR (Non-African American) 75.6 ml/min; Globulin 3.2 gm/dl (2.5-4.0); Magnesium 2.6 mg/dl (1.7-2.4); Phosphorus 2.7 mg/dl (2.5-4.9); Potassium 3.1 mmol/L (3.5-5.1); Total Protein 5.3 gm/dl (6.0-8.3)
[2021-05-16] MEDS: ICU ELECTROLYTE REPLACEMENT PROTOCOL SCH ×2 (06:02→17:27)
[2021-05-16] MEDS: HEPARIN SOD 5,000 UNIT/0.5 ML VIAL SQ SCH (06:11)
[2021-05-16] MEDS: POTASSIUM CHLORIDE / WTR 20 MEQ/100 ML PLCT IV SCH ×4 (06:20→14:34)
--- NOTE | 2021-05-16 06:41 | Anesthesiology Consultation ---
Date of Service May 16, 2021 Assessment & Plan Chart Review Chart Review: Patient NOT seen in Pre Admission Testing ASA ASA4 Proposed Anesthesia Anesthesia Type: General History Surgery Operation Date: 05/16/21 07:30 Proposed Procedures p Left Below Knee Amputation(Left) - [facility] MD Height/Weight Height: 5 ft 6 in Weight: 57.1 kg Allergies Allergy/AdvReac Type Severity Reaction Status Date / Time latex Allergy Mild Rash Verified 05/14/21 21:26 aspirin Allergy Unknown UNKNOWN Verified 05/14/21 21:26 oxycodone AdvReac Intermediate HALLUCINATI Verified 05/14/21 21:26 ONS Medications Home Medications Medication Instructions Recorded Confirmed Last Taken atorvastatin 80 mg tablet 80 mg PO HS 03/16/21 05/14/21 Unknown clopidogrel 75 mg tablet 75 mg PO DAILY 03/16/21 05/14/21 Unknown donepezil 5 mg tablet 5 mg PO HS 03/16/21 05/14/21 Unknown duloxetine 30 mg capsule,delayed 30 mg PO QAM 03/16/21 05/14/21 Unknown release duloxetine 60 mg capsule,delayed 60 mg PO QAM 03/16/21 05/14/21 Unknown release furosemide 20 mg tablet 60 mg PO DAILY 03/16/21 05/14/21 Unknown lisinopril 10 mg tablet 10 mg PO DAILY 03/16/21 05/14/21 Unknown metoprolol succinate 50 mg 100 mg PO QAM 03/16/21 05/14/21 Unknown tablet,extended release 24 hr topiramate 50 mg tablet 50 mg PO BID 03/16/21 05/14/21 Unknown acetaminophen 500 mg tablet 500 mg PO Q4 #100 tab 03/29/21 05/14/21 Unknown (Tylenol Extra Strength) bisacodyl 10 mg rectal suppository 10 mg TN DAILY PRN #50 ea 03/29/21 05/14/21 Unknown docusate sodium 100 mg capsule 100 mg PO BID PRN #60 cap 03/29/21 05/14/21 Unknown magnesium hydroxide 400 mg/5 mL 30 ml PO Q6H PRN #300 ml 03/29/21 05/14/21 Unknown oral suspension (Milk of Magnesia) magnesium oxide 400 mg (241.3 mg 400 mg PO QAM #30 tab 03/29/21 05/14/21 Unknown magnesium) tablet multivitamin with folic acid 400 1 tab PO QAM #30 tab 03/29/21 05/14/21 Unknown mcg tablet (Daily-Hardik (with folic acid)) cephalexin 500 mg capsule 500 mg PO Q6 30 Days #120 cap 05/13/21 05/14/21 Unknown aspirin 81 mg tablet,delayed 81 mg PO DAILY 05/14/21 05/14/21 Unknown release gabapentin 300 mg capsule 300 mg PO QAM 05/14/21 05/14/21 Unknown gabapentin 300 mg capsule 600 mg PO HS 05/14/21 05/14/21 Unknown insulin aspart U-100 100 unit/mL 0 unit SUBCUT TID 05/14/21 05/14/21 Unknown (3 mL) subcutaneous pen (Novolog Flexpen U-100 Insulin aspart) insulin glargine 100 unit/mL (3 46 unit SUBCUT QAM 05/14/21 05/14/21 Unknown mL) subcutaneous pen (Basaglar KwikPen U-100 Insulin) metoprolol succinate 50 mg 50 mg PO QPM 05/14/21 05/14/21 Unknown tablet,extended release 24 hr nitroglycerin 0.4 mg sublingual 0.4 mg SUBLINGUAL .PRN/UD PRN 05/14/21 05/14/21 Unknown tablet omeprazole 20 mg capsule,delayed 20 mg PO DAILY 05/14/21 05/14/21 Unknown release polyethylene glycol 3350 17 gram 17 g PO DAILY 05/14/21 05/14/21 Unknown oral powder packet (Miralax) sennosides 8.6 mg tablet (Senokot) 17.2 mg PO HS PRN 05/14/21 05/14/21 Unknown tramadol 50 mg tablet 50 mg PO Q6H PRN 05/14/21 05/14/21 Unknown Active Medications Generic Name Dose Route Start Last Admin Trade Name Freq PRN Reason Stop Dose Admin Atorvastatin Calcium 80 mg 05/15/21 21:00 05/15/21 20:08 Atorvastatin 40 Mg Tab NG 06/14/21 20:59 80 mg HS SAMANTHA Administration Donepezil HCl 5 mg 05/15/21 21:00 05/15/21 20:08 Donepezil Hcl 5 Mg Tab PO 06/14/21 20:59 5 mg HS SAMANTHA Administration Gabapentin 600 mg 05/15/21 21:00 05/15/21 20:08 Gabapentin 250 Mg/5 Ml 470 Ml Btl NG 06/14/21 20:59 600 mg HS SAMANTHA Administration Heparin Sodium (Porcine) 5,000 units 05/15/21 14:00 05/16/21 06:11 Heparin Sod 5,000 Unit/0.5 Ml Vial SQ 06/14/21 13:59 5,000 units Q8 SAMANTHA Administration Piperacillin Sod/Tazobactam 115 mls @ 28.75 mls/hr 05/15/21 06:00 05/16/21 05:22 Sod 3.375 gm/ Dextrose IV 05/22/21 05:59 28.8 mls/hr Q8H SAMANTHA Administration Protocol Vancomycin HCl 750 mg/ Sodium 265 mls @ 200 mls/hr 05/15/21 08:00 05/15/21 21:30 Chloride IV 05/22/21 07:59 Infused Q12H SAMANTHA Infusion Propofol 1,000 mg in 100 mls @ 6.309 mls/hr 05/15/21 08:30 05/15/21 19:23 Diprivan IV 05/18/21 08:29 15 mcg/kg/min .[id number] SAMANTHA 6.3 mls/hr Administration Protocol 15 MCG/KG/MIN Phenylephrine HCl 20 mg/ 502 mls @ 0 mls/hr 05/15/21 08:30 05/15/21 08:35 Dextrose IV 06/14/21 08:29 0 mcg/kg/min .Q0M SAMANTHA 0 mls/hr Titration Protocol 0 MCG/KG/MIN Parenteral Electrolytes 1,000 mls @ 100 mls/hr 05/15/21 08:45 05/16/21 05:27 Plasma-Lyte A IV 06/14/21 08:44 100 mls/hr .Q10H SAMANTHA Infusion Insulin Human Regular 250 250 mls @ 0 mls/hr 05/15/21 12:45 05/15/21 19:48 units/ Sodium Chloride IV 06/14/21 12:44 0 units/hr .Q0M SAMANTHA 0 mls/hr Titration Protocol 0 UNITS/HR Potassium Chloride 20 meq in 100 mls @ 50 mls/hr 05/16/21 06:30 05/16/21 06:20 K Jerry / Wtr IV 05/16/21 14:29 50 mls/hr Q2H SAMANTHA Administration Insulin Aspart 0 units 05/16/21 04:00 05/16/21 04:27 Insulin Aspart Per Unit SC 06/15/21 03:59 Not Given Q4 SAMANTHA Miscellaneous 1 ea 05/15/21 18:00 05/16/21 06:02 Icu Electrolyte Replacement Protocol N/A 05/22/21 17:59 1 ea BID@06,18 SAMANTHA Administration Protocol Propofol 20 mg 05/15/21 08:20 05/15/21 08:26 Propofol Bolus From Bag IV 05/18/21 08:19 20 mg Q5M PRN Administration Sedation Topiramate 50 mg 05/15/21 09:00 05/15/21 20:09 Topiramate 50 Mg Tab PO 06/14/21 08:59 50 mg BID SAMANTHA Administration Past Medical History Medical History Anxiety Bone infection of left ankle Carpal tunnel syndrome, left Chronic congestive heart failure with left ventricular diastolic dysfunction Coronary artery disease Diabetes mellitus, type 2 Psychotic disorder Tobacco use disorder Ulnar neuropathy at elbow of left upper extremity Exercise / Class Metabolic Activity IV < 2 Limit ADL/Bedbound Past Family History Family History Other Diabetes Heart disease Past Surgical History Surgical History Status post cholecystectomy Status post coronary artery bypass grafting Status post hysterectomy Status post ORIF of fracture of ankle R, 2016 Past Anesthesia History No Hx of Anesthesia Complications and No Family Hx of Anesthesia Complications History of PONV No Hx of PONV and No Hx of Motion Sickness Social History Smoking Status: Former smoker tobacco type: cigarettes Smoking End Date: 04/06 Hx Alcohol Use: No Hx Substance Use: No substance use type: does not use Physical Exam Vital Signs Last Vital Signs Temp 36.6 C 05/16/21 04:01 Pulse 69 05/16/21 04:01 Resp 20 05/16/21 04:01 BP 135/87 05/16/21 04:01 Pulse Ox 98 05/16/21 04:01 Testing Laboratory Results 05/16/21 04:14 05/16/21 04:14 PT 12.9 Seconds (9.0-12.0) H 05/14/21 18:10 INR 1.2 (0.9-1.1) H 05/14/21 18:10 APTT 33.0 Seconds (21.0-31.0) H 05/14/21 18:10 Hemoglobin A1c 10.3 % (4.5-5.6) H 05/15/21 04:55 Urine Color Yellow 05/14/21 19:33 Urine Appearance Clear (Clear) 05/14/21 19:33 Urine pH 5.0 (4.5-7.5) 05/14/21 19:33 Ur Specific [place] 1.022 (1.000-1.030) 05/14/21 19:33 Urine Protein Negative (Negative) 05/14/21 19:33 Urine Glucose (UA) 3+ (Negative) H 05/14/21 19:33 Urine Ketones Negative (Negative) 05/14/21 19:33 Urine Nitrite Negative (Negative) 05/14/21 19:33 Ur Leukocyte Esterase Negative (Negative) 05/14/21 19:33 Urine WBC (Auto) 1-5 /hpf (0-5) 05/14/21 19:33 Urine RBC (Auto) 5-10 /hpf (0-4) H 05/14/21 19:33 U Hyaline Cast (Auto) 1-5 /lpf (0-5) 05/14/21 19:33 U Epithel Cells (Auto) >30 /lpf (0-5) H 05/14/21 19:33 Urine Bacteria (Auto) Negative (Negative) 05/14/21 19:33 Blood Type A Positive 05/15/21 10:47 Antibody Screen NEGATIVE 05/15/21 10:47 05/14/21 18:31 Aerobic Blood Culture - Preliminary Blood Gram positive cocci clusters Anaerobic Blood Culture - Final 05/14/21 18:41 Aerobic Blood Culture - Preliminary Blood Gram positive cocci clusters Anaerobic Blood Culture - Preliminary Gram positive cocci clusters 05/16/21 05/16/21 05/16/21 05:40 04:19 01:32 POC Glucose 102 H 134 H 108 H 05/15/21 05/15/21 05/15/21 23:32 21:50 20:39 POC Glucose 126 H 117 H 106 H 05/15/21 05/15/21 19:40 18:35 POC Glucose 109 H 127 H Electrocardiogram Date: 05/15/21 Findings: + LBBB and + ST @ (at 119) Chest X-Ray Date: 05/15/21 Findings: + pulmonary vascular congestion (w/ mild interstitial coarsening) and + other (ETT in place;Left subclavian CV cath w/distal tip in RA) Echocardiogram Date: 03/17/21 EF: 60% LV Function: normal RWMA: + none Other Findings: + LVH (Moderate) and + diastolic dysfunction (grade 2) Valvular Disease: + MR (moderate ) Reduced RV function Abnormal septal WM Pulm. HTN RVSP 40-50Torr
[2021-05-16] MEDS ORDERED: SODIUM CHLORIDE 0.9% 250 ML IV PRN (07:00)
[2021-05-16] MEDS ORDERED: VANCOMYCIN TROUGH ONE (07:30)
[2021-05-16 07:35] LABS: Hematocrit (blood only) 21.6 % (37-47); Hemoglobin 6.7 g/dL (12.0-16.0)
--- NOTE | 2021-05-16 07:47 | History & Physical Bridge Note ---
Date of Service May 16, 2021 History & Physical Bridge Note I have examined the patient, reviewed the History & Physical and in the interval since the performance of the History & Physical I have noted the following changes of clinical significance: no changes noted
[2021-05-16] MEDS: PROPOFOL BOLUS FROM BAG IV PRN (08:20)
[2021-05-16] MEDS: VANCOMYCIN HCL 750 MG in SODIUM CHLORIDE 0.9% 250 ML IV SCH ×2 (08:29→19:45)
[2021-05-16] MEDS: ASPIRIN 81 MG CHEW NG SCH (08:31)
[2021-05-16] MEDS: GABAPENTIN 250 MG/5 ML 470 ML BTL NG SCH ×2 (08:32→20:12)
[2021-05-16] MEDS: LANSOPRAZOLE 30 MG SOLTAB NG SCH (08:33)
[2021-05-16] MEDS: TOPIRAMATE 50 MG TAB PO SCH ×2 (08:34→20:10)
[2021-05-16] MEDS: MULTI VIT W/MINERALS LIQUID 15 ML UDP NG SCH (08:34)
[2021-05-16] MEDS ORDERED: MULTIVITAMINS W/MINERALS LIQUID PO SCH (09:00)
[2021-05-16] MEDS ORDERED: MAGNESIUM OXIDE 400 MG TAB NG SCH (09:00)
[2021-05-16] MEDS ORDERED: GABAPENTIN 250 MG/5 ML 470 ML BTL PO SCH (09:00)
[2021-05-16] MEDS ORDERED: ASPIRIN 81 MG CHEW PO SCH (09:00)
--- NOTE | 2021-05-16 09:00 | Pharmacy Report ---
Pharmacy Glycemic Short Note 2 - Date of Service May 16, 2021 - Glycemic Short BSG Results (Last 24 hours): 05/15/21 05/15/21 05/15/21 09:03 10:47 14:10 Glucose 234 H POC Glucose 298 H 191 H 05/15/21 05/15/21 05/15/21 15:20 16:29 17:31 Glucose POC Glucose 158 H 141 H 122 H 05/15/21 05/15/21 05/15/21 18:35 19:40 20:39 Glucose POC Glucose 127 H 109 H 106 H 05/15/21 05/15/21 05/16/21 21:50 23:32 01:32 Glucose POC Glucose 117 H 126 H 108 H 05/16/21 05/16/21 05/16/21 04:14 04:19 05:40 Glucose 119 H POC Glucose 134 H 102 H 05/16/21 07:08 Glucose POC Glucose 109 H OUTPATIENT ANTIDIABETIC REGIMEN: * Basaglar 46 units SQ qAM * Novolog sliding scale * HbA1C = 10.3% (05/15/21) ASSESSMENT: 05/16/21 * Patient was initiated on insulin infusion yesterday around noon due to two consecutive BSGs > 200 mg/dL. Insulin infusion was discontinued yesterday evening due to BSGs < 140 mg/dL. * q4 checks started after this and overnight BSGs remained < 140 mg/dL. * Will currently continue with q4 checks of BSGs with weight-based stress of 3 CF. * Patient remains NPO and intubated (sedated with propofol). * Reorder Lantus when BSGs trend above 160 mg/dL. Plan for 10 units. BACKGROUND * Ms Welch is a 60 y/o F with a PMH of T2DM on insulin who presents with infection and MRSA bacteremia. Patient was intubated this morning. Currently not on pressors. * Initially, patient's BSGs on admission were [phone] mg/dL. Patient received 7 units of IV insulin @2209 and 12 units of Lantus @ 0041. * BSGs remained elevated through the night. BSG at 0200 was 373 mg/dL and patient received additional 10 units of Novolog. * BSG in the morning was 263 mg/dL. This was corrected with Novolog and 15 units of Lantus. Lantus initially given prior to intubation. Patient typically requires around 30-40 units of Lantus per day per previous hospitalization. * After patient was intubated, BSGs remained greater than 200 mg/dL despite correctional insulin. * Initiated insulin infusion at 0.1 units/kg/hr and will follow. PLAN FOR INPATIENT GLYCEMIC CONTROL: * Hold outpatient oral diabetes medications * Basal insulin * HOLD UNTIL BSG > 160 MG/DL * Bolus insulin * NovoLog per scale AC * Goal Range: Low 110 mg/dL - High 140 mg/dL * Correction Factor: 20 mg/dL/unit * Nutritional / Prandial insulin per carb ratio of 1 unit per -- grams CHO consumed
--- NOTE | 2021-05-16 09:01 | Progress Notes ---
DATE OF SERVICE: 05/16/2021. SUBJECTIVE: A 60-year-old female with multiple medical comorbidities, 2 months out from ORIF of a le ft ankle fracture with a wound breakdown, dehiscence, infection and now sepsis. She was recently adm itted to the hospital. She is scheduled to go to the OR this morning for amputation. She is intubat ed. OBJECTIVE: VITAL SIGNS: Temperature is 37.0. Vital signs are stable. Respiratory rate is down to 21. GENERAL: Intubated middle-aged female. She is lying in bed. No apparent distress. EXTREMITIES: Examination of the left leg reveals the medial and lateral wounds. There is obvious br eakdown. Minimal purulence. No real cellulitis. LABORATORY DATA: Hemoglobin 6.7. Hematocrit 21.6. Electrolytes have been stable. ASSESSMENT: A 60-year-old female with multiple medical comorbidities, 2 months out from ankle fractu re ORIF with multiple falls afterwards with wound dehiscence and now sepsis. PLAN: We discussed treatment options with the family members this morning and yesterday. With these nonhealing wounds, open wounds, obvious infection, source of sepsis, I believe below-knee amputation is the most appropriate treatment. These wounds are never going to heal in this patient and its dilip rce of sepsis. Her hemoglobin was low this morning. We are going to give her some blood and then he r to the operating room and do a below-knee amputation. The risks and benefits of this procedure wer e explained to the daughters and they both understand and informed consent was obtained. She is vikram g to start getting the blood and we will take her to the operating room once this is underway. Her s ituation is extremely guarded at this point. The multiple medical comorbidities and I think this is her best chance for survival. Continue antibiotics. Job ID: [id number]
[2021-05-16] MEDS: propofoL 1,000 MG/100 ML VIAL IV SCH ×2 (09:36→22:40)
--- NOTE | 2021-05-16 09:50 | Electrocardiogram Report ---
Test Reason : Blood Pressure : / mmHG Vent. Rate : 119 BPM Atrial Rate : 119 BPM P-R Int : 130 ms QRS Dur : 138 ms QT Int : 354 ms P-R-T Axes : 069 -01 092 degrees QTc Int : 497 ms Poor data quality, interpretation may be adversely affected Sinus tachycardia Left bundle branch block Abnormal ECG When compared with ECG of 14-MAY-2021 18:44, QRS duration has decreased Leftward axis is no longer Present Confirmed by Abraham De Leon ([id number]) on 05/16/2021 9:50:31 AM Referred By: REFERRED SELF Confirmed By:Abraham De Leon
--- NOTE | 2021-05-16 10:12 | Critical Care Progress Note ---
Date of Service May 16, 2021 Assessment & Plan (1) Severe sepsis with septic shock: (2) Poorly controlled diabetes mellitus: (3) Osteomyelitis: (4) Lactic acidosis: (5) Anemia: (6) Hyponatremia: Plan: Impression: 60-year-old female with poorly controlled diabetes (hemoglobin A1c above 10) admitted with osteomyelitis and infected hardware of the ankle and severe sepsis with septic shock resulting encephalopathy. 24-hour events: Patient was transferred to the ICU. She was intubated on arrival and central lines were placed. She was aggressively fluid resuscitated. Ortho consultation was completed. The plan to take her to the OR today for amputation. She is remained on antibiotics. Blood cultures were positive. Cortisol was appropriate. She has not required pressor agents. Recommendations: 1. Neurologic: Continue sedation with propofol and fentanyl for analgesia. Anticipate continued sedation as the patient recovers from general surgery with possible extubation in the next 24 hours holding her gabapentin, donepezil, and duloxetine for now as well as her Topamax and tramadol, but will need to restart at some point 2. Cardiovascular: Severe sepsis with septic shock: Adequately volume resuscitated now. Lactate back to normal. Cortisol appropriately elevated. Echo pending. She is now trending towards hypertension. Restart her metoprolol at half dose and lisinopril at half dose. After surgery will need to restart her Plavix. 3. Pulmonary: Oxygenating ventilating better. Mild respiratory alkalosis today. Will decrease respiratory rate on the ventilator. 4. 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 Blood cultures positive for staph species, pending MRSA analysis. Continue vancomycin and Rocephin. To the OR today for amputation. We will check surveillance cultures when she returns from the OR. Follow-up on echocardiogram. May need JUAN DAVID if persistently bacteremic. ID consultation if persistently bacteremic. Fever curve and white blood cell count improving 5. GI: N.p.o. for now. Prophylaxis will be initiated. If not extubated in the next 24 hours may consider initiation of enteric feeding. Mild elevation in transaminases. Continue to trend. May be secondary to sepsis. 6. Renal: Hyponatremia likely secondary to hypovolemia, now resolved. Hypokalemia on replacement. Replace calcium as well. ICU electrolyte re placement protocol. Acid-base status acceptable. 7. Heme-onc: Progressive anemia. Suspect related to chronic disease. No evidence of acute blood loss. Currently being transfused prior to going to the OR. We will continue to monitor counts. White blood cell count better today 8. Endocrine: Poorly controlled diabetes. Glycemic control per pharmacy Patient is severely critically ill at this point time with significant probability of clinical deterioration and . A total of 45 minutes in critical care time was spent in evaluation management and stabilization of this patient including discussion with consultants. This time is exclusive of procedures. Admission and Anticipated Discharge Date Admission Date: May 14, 2021 Subjective Patient seen and examined. Discussed with critical care SONJA overnight. She is intubated and sedated Review of Systems Review of Systems: Unobtainable due to endotracheal tube Physical Exam Constitutional: Intubated and sedated on the ventilator Neck: trachea midline, no thyromegaly Respiratory: normal respiratory effort, lungs clear to auscultation Cardiovascular: RRR, no murmur, no edema Gastrointestinal (Abdomen): normal bowel sounds, soft, nontender, no hepatosplenomegaly Musculoskeletal: Lower extremity wound is dressed Skin: no rashes, warm and dry Lymphatic: no cervical lymphadenopathy Results & Data Results & Data ([facility]) Vital Signs (Past 12 Hours) Vital Signs Temp Pulse Resp BP Pulse Ox 05/16/21 09:11 37.3 C 86 24 168/103 H 99 05/16/21 09:10 37.3 C 85 24 145/75 H 99 05/16/21 08:56 37.3 C 87 24 170/70 H 100 05/16/21 08:41 37.3 C 84 24 167/66 H 99 05/16/21 08:40 37.3 C 83 24 161/66 H 99 05/16/21 08:35 37.3 C 86 24 175/69 H 99 05/16/21 08:12 37.3 C 85 24 166/67 H 99 05/16/21 07:57 37.3 C 85 24 167/65 H 99 05/16/21 07:51 37.3 C 83 24 164/61 H 100 05/16/21 07:37 37.3 C 83 22 155/59 H 98 05/16/21 06:30 37.0 C 81 21 99 05/16/21 06:01 36.9 C 78 22 150/79 H 100 05/16/21 06:00 36.9 C 76 24 99 05/16/21 05:30 36.8 C 77 24 97 05/16/21 05:01 36.7 C 76 29 H 137/74 97 05/16/21 05:00 36.7 C 74 18 96 05/16/21 04:30 36.6 C 74 17 99 05/16/21 04:01 36.6 C 69 20 135/87 98 05/16/21 04:00 36.6 C 68 18 135/87 98 05/16/21 03:30 36.5 C 69 18 98 05/16/21 03:15 68 20 98 05/16/21 03:00 36.4 C L 67 18 140/87 100 05/16/21 02:30 36.4 C L 70 20 100 05/16/21 02:00 36.4 C L 75 20 129/77 96 05/16/21 01:30 36.4 C L 73 20 99 05/16/21 01:00 36.3 C L 66 20 136/78 100 05/16/21 00:30 36.3 C L 67 20 100 05/16/21 00:00 36.2 C L 68 20 135/73 100 05/15/21 23:30 36.2 C L 64 20 100 05/15/21 23:00 36.2 C L 68 20 128/67 100 05/15/21 22:50 67 21 99 05/15/21 22:32 68 05/15/21 22:30 36.2 C L 68 21 100 Critical Care Results & Data Vital Signs (Past 12 Hours) Vital Signs Temp Pulse Resp BP Pulse Ox 05/16/21 09:50 37.4 C 90 24 168/84 H 99 05/16/21 09:11 37.3 C 86 24 168/103 H 99 05/16/21 09:10 37.3 C 85 24 145/75 H 99 05/16/21 08:56 37.3 C 87 24 170/70 H 100 05/16/21 08:41 37.3 C 84 24 167/66 H 99 05/16/21 08:40 37.3 C 83 24 161/66 H 99 05/16/21 08:35 37.3 C 86 24 175/69 H 99 05/16/21 08:12 37.3 C 85 24 166/67 H 99 05/16/21 07:57 37.3 C 85 24 167/65 H 99 05/16/21 07:51 37.3 C 83 24 164/61 H 100 05/16/21 07:37 37.3 C 83 22 155/59 H 98 05/16/21 06:30 37.0 C 81 21 99 05/16/21 06:01 36.9 C 78 22 150/79 H 100 05/16/21 06:00 36.9 C 76 24 99 05/16/21 05:30 36.8 C 77 24 97 05/16/21 05:01 36.7 C 76 29 H 137/74 97 05/16/21 05:00 36.7 C 74 18 96 05/16/21 04:30 36.6 C 74 17 99 05/16/21 04:01 36.6 C 69 20 135/87 98 05/16/21 04:00 36.6 C 68 18 135/87 98 05/16/21 03:30 36.5 C 69 18 98 05/16/21 03:15 68 20 98 05/16/21 03:00 36.4 C L 67 18 140/87 100 05/16/21 02:30 36.4 C L 70 20 100 05/16/21 02:00 36.4 C L 75 20 129/77 96 05/16/21 01:30 36.4 C L 73 20 99 05/16/21 01:00 36.3 C L 66 20 136/78 100 05/16/21 00:30 36.3 C L 67 20 100 05/16/21 00:00 36.2 C L 68 20 135/73 100 05/15/21 23:30 36.2 C L 64 20 100 05/15/21 23:00 36.2 C L 68 20 128/67 100 05/15/21 22:50 67 21 99 05/15/21 22:32 68 05/15/21 22:30 36.2 C L 68 21 100 Lab & Micro Results (Past 24 Hours) RBC 2.61 M/uL (4.2-5.4) L 05/16/21 WBC 20.00 K/uL (4.8-10.8) H 05/16/21 Hgb 6.7 g/dL (12.0-16.0) L* 05/16/21 Hct 21.6 % (37-47) L 05/16/21 MCV 83.9 fL (80-100) 05/16/21 MCH 25.7 pg (25-34) 05/16/21 MCHC 30.6 g/dL (32-36) L 05/16/21 RDW Standard Deviation 59.9 fL (36.4-46.3) H 05/16/21 RDW Coefficient of Variation 19.7 % (11.5-14.5) H 05/16/21 Plt Count 213 K/uL (130-400) 05/16/21 MPV 10.9 fL (7.4-10.4) H 05/16/21 Nucleated Red Blood Cells % (auto) 0.3 % 05/16/21 Nucleated RBC Absolute Count (auto) 0.07 K/uL (0-0) H 05/16/21 ANC 18.10 K/uL (1.4-6.5) H 05/16/21 ALC 0.70 K/uL (1.2-3.4) L 05/16/21 Neutrophils % (Manual) 90.5 % 05/16/21 Lymphocytes % (Manual) 3.5 % 05/16/21 Monocytes % (Manual) 4.3 % 05/16/21 Eosinophils % (Manual) 1.7 % 05/16/21 Neutrophils # (Manual) 18.10 K/uL (1.4-6.5) H 05/16/21 Lymphocytes # (Manual) 0.70 K/uL (1.2-3.4) L 05/16/21 Monocytes # (Manual) 0.86 K/uL (0.11-0.59) H 05/16/21 Eosinophils # (Manual) 0.34 K/uL (0-0.5) 05/16/21 Polychromasia 1+ 05/16/21 Hypochromasia Present 05/16/21 Na 140 mmol/L (136-145) 05/16/21 K 3.1 mmol/L (3.5-5.1) L 05/16/21 Cl 111 mmol/L (98-107) H 05/16/21 CO2 21 mmol/L (21-32) 05/16/21 Anion Gap 8 (3-11) 05/16/21 BUN 13 mg/dl (6-23) 05/16/21 Creatinine 0.83 mg/dl (0.6-1.2) 05/16/21 Estimated GFR ( Amer) 87.6 ml/min 05/16/21 Estimated GFR (Non-Af Amer) 75.6 ml/min 05/16/21 BUN/Creatinine Ratio 15.7 (10-20) 05/16/21 Glu 119 mg/dl (70-99(Fasting)) H 05/16/21 Ca 7.2 mg/dl (8.5-10.1) L 05/16/21 Phosphorus Level 2.7 mg/dl (2.5-4.9) 05/16/21 Total Bilirubin 1.1 mg/dl (0.2-1.0) H 05/16/21 Direct Bilirubin 0.6 mg/dl (0-0.2) H 05/16/21 AST 104 U/L (13-39) H 05/16/21 ALT 59 U/L (7-52) H 05/16/21 Alkaline Phosphatase 103 U/L (34-104) 05/16/21 TP 5.3 gm/dl (6.0-8.3) L 05/16/21 Albumin 2.1 gm/dl (3.4-5.0) L 05/16/21 Globulin 3.2 gm/dl (2.5-4.0) 05/16/21 Albumin/Globulin Ratio 0.7 (0.9-2) L 05/16/21 Mg 2.6 mg/dl (1.7-2.4) H 05/16/21 04:14 05/16/21 Calcium Level 7.2 mg/dl (8.5-10.1) L 05/16/21 04:14 05/16/21 Blood Gas Barometric Pressure 725.9 mm/Hg 05/16/21 04:18 05/16/21 Arterial Blood pH 7.47 (7.35-7.45) H 05/16/21 04:18 05/16/21 Arterial Blood Partial Pressure CO2 34 mmHg (35-46) L 05/16/21 04:18 05/16/21 Arterial Blood Partial Pressure O2 78 mmHg (80-95) L 05/16/21 04:18 05/16/21 Arterial Blood HCO3 24 mmol/L (19-24) 05/16/21 04:18 05/16/21 Arterial Blood Base Excess 0.3 mEq/L (-9-1.8) 05/16/21 04:18 05/16/21 Arterial Blood Oxygen Saturation 95.5 % (90-95) H 05/16/21 04:18 05/16/21 Blood Gas Oxygen Given 6 L 05/16/21 04:18 05/16/21 Christopher Test POS (Pos) 05/16/21 04:18 05/16/21 Blood Gas Barometric Pressure 725.9 mm/Hg 05/16/21 04:18 05/16/21 Microbiology 05/14/21 18:41 Aerobic Blood Culture - Preliminary Blood Staphylococcus species Anaerobic Blood Culture - Preliminary Staphylococcus species 05/14/21 18:31 Aerobic Blood Culture - Preliminary Blood Staphylococcus species Anaerobic Blood Culture - Final I & O Totals 24 Hours 05/15/21 05/16/21 05/17/21 06:59 06:59 06:59 Intake Total 2049 7587.355 / 7587.355 894.401 / 894.401 Output Total 2198 / 2198 275 / 275 Balance 2049 5389.355 / 5389.355 619.401 / 619.401 Cumulative 05/14/21 17:44 thru 05/16/21 09:55 Intake Total 27889.756 Output Total 2473 Balance 8058.756 RT Ventilator Mngmt (Last Documented) Ventilator Ordered Settings Ventilator Support Mode Assist Control 05/16/21 05:56 Respiratory Rate 24 05/16/21 09:50 Ventilator Tidal Volume 350 05/16/21 05:56 Setting Minute Ventilation 7.4 05/16/21 03:15 Positive End Expiratory 5 05/16/21 05:56 Pressure Fraction of Inspired Oxygen 40 05/16/21 05:56 Machine Comment CHANGES PER DR ZAPATA 05/15/21 09:32 Ventilator - PT Measurements Respiratory Rate 24 Exhaled Tidal Volume 350 Minute Ventilation 7.4 Peak Inspiratory Airway 19 Pressure Mean Airway Pressure 24 Plateau Pressure 16 Respiratory Cycle Inspiratory: 1:3 Expiratory Ratio Inspiratory Phase Time 0.75 End-Tidal CO2 25 Static Lung Compliance 31.82 Dynamic Lung Compliance 25.00 Normal Static Lung Compliance 46.00 Patient Measurements Comment Pt ETT found at 24cm at the lip. Tube repositioned back to 22cm at the lip where ETT was at beginning of shift. Pt pulling set volumes, not peak pressuring, and has bilateral breath sounds. Coding Level of Care Code Critical Care 1st 30-74 mins Diagnoses Severe sepsis with septic shock A41.9; R65.21 Poorly controlled diabetes mellitus E11.65 Osteomyelitis M86.9 Lactic acidosis E87.2 Anemia D64.9 Hyponatremia E87.1 Time Spent (min) 45
[2021-05-16] MEDS ORDERED: BUPIVACAINE 0.5 % 5 MG/1 ML MPF 30ML VIAL ONE (10:22)
[2021-05-16] MEDS ORDERED: EPINEPHrine INJ 1 MG/ML AMP ONE (10:22)
[2021-05-16] MEDS ORDERED: PROPOFOL IV EMULSION 10 MG/ML 20 ML VIAL IV ONE (10:24)
[2021-05-16] MEDS ORDERED: MIDAZOLAM HCL 1 MG/ML 2ML VIAL ONE (10:24)
[2021-05-16] MEDS ORDERED: fentaNYL citrate 100 MCG/2 ML VIAL ONE ×2 (10:24→11:10)
--- NOTE | 2021-05-16 11:06 | Pharmacy Report ---
Pharmacy Vanc AUC Short Note - Date of Service May 16, 2021 - Assessment & Plan Assessment 60 year old F receiving IV vancomycin for treatment of MRSA bacteremia. Pertinent microbiologic data includes: nasal swab and blood cultures are positive for MRSA; blood culture PCR is positive for MRSA. Day # 3 of antimicrobial therapy. Plan Vancomycin * Trough is 17.8 mcg/mL * This trough is predicated to result in a AUC of approximately 546 mg/L.hr * AUC/ELI is the preferred PK/PD target for vancomycin * AUC guided dosing is effective and associated with decreased risk of nephrotoxicity compared to traditional trough targets * Continue dose of 750 mg IV every 12 hours * Trough would be obtained prior to the 4th dose at steady state or sooner if renal function changes significantly Pharmacy will continue to follow and will adjust dose/frequency as necessary. Thank you.
[2021-05-16] MEDS ORDERED: HYDROmorphone INJ 2 MG/ML SYR/VIAL ONE (11:29)
[2021-05-16 11:42] LABS: BUN Creatinine Ratio 14.5 (10-20); Creatinine Clr Calc Pharmacy 69.2 ml/min; Est GFR (African American) 97.4 ml/min; Est GFR (Non-African American) 84.1 ml/min; Potassium 3.9 mmol/L (3.5-5.1)
[2021-05-16] MEDS ORDERED: LABETALOL HCL IV 5 MG/ML 20ML IV ONE (11:44)
[2021-05-16] MEDS ORDERED: ESMOLOL HCL INJ 10 MG/ML 10ML VIAL IV ONE (11:45)
[2021-05-16] MEDS ORDERED: ONDANSETRON INJ 2 MG/ML 2 ML VIAL IV PRN ×2 (12:28→13:33)
[2021-05-16] MEDS ORDERED: PROMETHAZINE HCL 12.5 MG in SODIUM CHLORIDE 0.9% 50 ML IV PRN (12:28)
[2021-05-16] MEDS ORDERED: fentaNYL citrate 100 MCG/2 ML VIAL IV PRN (12:28)
[2021-05-16] MEDS ORDERED: LABETALOL HCL IV 5 MG/ML 20ML IV PRN (12:28)
[2021-05-16] MEDS ORDERED: ATROPINE SULFATE 0.1 MG/ML 10ML SYR IV PRN (12:28)
[2021-05-16] MEDS ORDERED: ePHEDrine sulfate 50 MG/ML AMP IV PRN (12:28)
[2021-05-16] MEDS ORDERED: FLUMAZENIL 0.1 MG/1 ML 10 ML VIAL IV PRN (12:28)
[2021-05-16] MEDS ORDERED: NALOXONE HCL 0.4 MG/1 ML VIAL/CARP IV PRN ×2 (12:28→13:33)
--- NOTE | 2021-05-16 12:31 | Operative Report ---
PG Post Operative Report Pre & Post Diagnosis Operation Date: 05/16/21 07:30 Pre-Op Diagnosis: Left Ankle infection with Osteomyelitis, Sepsis Post-Op Diagnosis: Left Ankle infection with Osteomyelitis, Sepsis I identified the patient and participated in the time-out.: Yes Procedure Operation Date: 05/16/21 07:30 Actual Procedures p Left Below Knee Amputation(Left) - Casa Yo MD Surgeon Casa Yo MD Physician Assistant Primary Care None Estimated Blood Loss 100 Findings Consistent with Post-Op Diagnosis Fluids 500 cc Specimens Left leg sent for pathology Anesthesia Type General Complications none Disposition Accompanied Patient To Recovery: No Indications Patient is a 60-year-old female with multiple medical comorbidities who sustained a left ankle fracture along with Lisfranc injury 2 months ago. She was treated with ORIF. She did pretty well initially but over the past several weeks has had multiple falls. She was recently seen in the clinic and diagnosed with wound dehiscence and apparent infection. Not a lot of cellulitis mostly just wound dehiscence. She was placed on antibiotics and over the next 48 hours deteriorated significantly. She admitted the hospital with sepsis. The patient has significant wound dehiscence with exposed hardware. She was indicated for below-knee amputation to control her sepsis as well as to get her wound to heal up. I did not take there is any chance of her healing this wound without aggressive surgical management. Description of Procedure The patient was taken to the operating, identified and placed on the operating table supine position. All contractors were properly padded. She was already intubated from the ICU. A left thigh turn was then placed. The left leg was then scrubbed with Hibiclens and prepped with ChloraPrep and draped in usual sterile fashion. The left leg was elevated but not exsanguinated. The tourniquet was placed at 300 mmHg. A modified fishmouth type incision was made about the 12 cm distal to the knee joint. Anterior and posterior flaps were created which were full- thickness down to the fascia. The anterior fascia was elevated off the tibia for about a 5 cm. The anterior compartment musculature was then transected and allowed to retract. The anterior tibial artery and deep peroneal nerve were identified. The artery and vein were suture-ligated and then the nerve was cut and allowed to retract. The superficial peroneal was identified, traction was applied, it was cut sharply and allowed to retract. I then made the saw cut on the tibia and then a saw cut on the fibula about a centimeter and a half proximal to the tibial cut. I did double the anterior aspect of the tibia. The posterior musculature was then divided and allowed to retract. The posterior tibial artery and vein were identified, suture ligated and allowed to retract. The tibial nerve was identified, sharply cut and allowed to retract as well. The superficial posterior compartment was kept intact and cut and the leg was removed. I then tailored the posterior muscles to allow for closure. I irrigated the wound extensively. Injected with 30 cc of half percent Marcaine with epinephrine. The tourniquet was then let down for final turn time 26 minutes. Hemostasis assured use electrocautery. The deep fascia posterior was closed to the anterior compartment fascia with 0 Vicryl suture in a [id number] fashion. The skin was then closed with 3-0 nylon suture in a simple fashion. Leg was then cleaned and dried a sterile dressing with Xeroform , 4 x 4's, ABD pad, Kerlix wrap, Deonte bandage were applied. The patient was then transferred to the recovery room/ICU in a similar guarded status. Patient tolerated procedure well and there were no complications. I attest to the content of the Intraoperative Record and any orders documented therein. Any exceptions are noted below.
--- NOTE | 2021-05-16 12:46 | Hospitalist Progress Note ---
Date of Service May 16, 2021 Assessment & Plan (1) Severe sepsis: Plan: Secondary to infected wound/osteomyelitis of the left ankle Gram-positive bacteremia Her blood pressure dropped while in the hospital and almost in septic shock She was transferred to ICU and was intubated Has been on intravenous Zosyn and vancomycin Blood culture is growing gram-positive cocci in clusters in 2 x 2 bottles Will need ID consultation and will continue current antibiotics Await sensitivity Severe anemia Secondary to sepsis Hemoglobin dropped to 6.7 Received 2 units of blood transfusion We will monitor CBC and hemoglobin (2) Bone infection of left ankle: Plan: History of bimalleolar fracture of the ankle in March, Status post repair with hardware placement Has infection in the open wound and likely has osteomyelitis which is the source of sepsis Appreciate Ortho input and recommendation for possible below-knee amputation planned for tomorrow, on 05/16/2021 Status post left below-knee amputation-management will be as per Ortho (3) Bimalleolar fracture of left ankle: Plan: As above (4) (HFpEF) heart failure with preserved ejection fraction: Plan: History of CHF as above Limiting use of IV fluid for sepsis (5) Diabetes mellitus, type 2: Plan: Diabetes seems to be uncontrolled Diabetic neuropathy Hemoglobin A1c noted to be high at 10.3 Glycemic pharmacist has been consulted Has been on intravenous insulin (6) Electrolyte imbalance: Plan: Has significant electrolyte imbalance including Hypophosphatemia and hyponatremia We will replace and monitor-seems stable Mild anemia Likely secondary to sepsis We will monitor. CAD status post CABG Mild elevation of troponin Likely secondary to sepsis and a stress induced Doubt any ACS Plan: DVT prophylaxis Subcu heparin CODE STATUS Full Discussed with the daughter and granddaughter Admission and Anticipated Discharge Date Admission Date: May 14, 2021 Subjective 05/15/2021 The patient was seen and examined in ICU in presence of the daughter She remains intubated and stable Has not been requiring any pressor resents to maintain blood pressure 05/16/2021 The patient was seen and examined in ICU in presence of the daughter She remains intubated and sedated She will have a left below-knee amputation today Review of Systems Review of Systems: Unobtainable due to endotracheal tube Physical Exam Physical Exam: Remains sedated and intubated Constitutional: well developed, well nourished, + ill appearing and average body habitus ENMT: external ear and nose normal, oropharynx normal Neck: trachea midline, no thyromegaly Respiratory: Remains intubated and sedated Cardiovascular: Rate/Rhythm: regular rate and regular rhythm; not tachycardic Heart Sounds: normal S1 and normal S2; no murmur Extremities: no edema Gastrointestinal (Abdomen): Inspection/Auscultation: normal bowel sounds; abdomen not distended Percussion/Palpation: abdomen soft; abdomen nontender Musculoskeletal: Ankle: + ankle abnormal to inspection (Left ankle is bandaged) Neurologic: Sedated Results & Data Results & Data ([facility]) Vital Signs (Past 12 Hours) Vital Signs Temp Pulse Resp BP Pulse Ox 05/16/21 10:15 37.5 C 88 19 98 05/16/21 10:10 37.5 C 88 25 H 165/96 H 98 05/16/21 10:00 37.4 C 91 H 21 187/104 H 99 05/16/21 09:50 37.4 C 90 24 168/84 H 99 05/16/21 09:45 37.4 C 90 21 99 05/16/21 09:30 37.3 C 84 24 99 05/16/21 09:25 37.3 C 85 24 168/103 H 99 05/16/21 09:15 37.3 C 88 25 H 99 05/16/21 09:11 37.3 C 86 24 168/103 H 99 05/16/21 09:10 37.3 C 85 24 145/75 H 99 05/16/21 09:00 37.3 C 86 24 169/116 H 99 05/16/21 08:56 37.3 C 87 24 170/70 H 100 05/16/21 08:45 37.3 C 84 22 99 05/16/21 08:41 37.3 C 84 24 167/66 H 99 05/16/21 08:40 37.3 C 83 24 161/66 H 99 05/16/21 08:35 37.3 C 86 24 175/69 H 99 05/16/21 08:30 37.3 C 87 21 98 05/16/21 08:15 37.3 C 85 25 H 99 05/16/21 08:12 37.3 C 85 24 166/67 H 99 05/16/21 08:00 37.3 C 83 21 176/96 H 100 05/16/21 07:57 37.3 C 85 24 167/65 H 99 05/16/21 07:51 37.3 C 83 24 164/61 H 100 05/16/21 07:45 37.3 C 82 22 99 05/16/21 07:37 37.3 C 83 22 155/59 H 98 05/16/21 07:30 37.2 C 81 21 100 05/16/21 07:26 80 20 100 05/16/21 07:15 37.2 C 79 24 98 05/16/21 07:00 37.1 C 80 21 148/87 H 100 05/16/21 06:45 37.1 C 79 22 99 05/16/21 06:30 37.0 C 81 21 99 05/16/21 06:01 36.9 C 78 22 150/79 H 100 05/16/21 06:00 36.9 C 76 24 99 05/16/21 05:30 36.8 C 77 24 97 05/16/21 05:01 36.7 C 76 29 H 137/74 97 05/16/21 05:00 36.7 C 74 18 96 05/16/21 04:30 36.6 C 74 17 99 05/16/21 04:01 36.6 C 69 20 135/87 98 05/16/21 04:00 36.6 C 68 18 135/87 98 05/16/21 03:30 36.5 C 69 18 98 05/16/21 03:15 68 20 98 05/16/21 03:00 36.4 C L 67 18 140/87 100 05/16/21 02:30 36.4 C L 70 20 100 05/16/21 02:00 36.4 C L 75 20 129/77 96 05/16/21 01:30 36.4 C L 73 20 99 05/16/21 01:00 36.3 C L 66 20 136/78 100 Laboratory Results Short CBC 05/16/21 05/16/21 Range/Units 04:14 07:17 WBC 20.00 H (4.8-10.8) K/uL Hgb 6.7 L* 6.7 L* (12.0-16.0) g/dL Hct 21.9 L 21.6 L (37-47) % Plt Count 213 (130-400) K/uL BMP 05/16/21 05/16/21 04:14 10:55 Sodium 140 138 Potassium 3.1 L D 3.9 D Chloride 111 H 109 H Carbon Dioxide 21 21 BUN 13 11 Creatinine 0.83 0.76 Glucose 119 H 147 H Calcium 7.2 L 7.0 L Liver Function 05/16/21 Range/Units 04:14 Total Bilirubin 1.1 H (0.2-1.0) mg/dl Direct Bilirubin 0.6 H (0-0.2) mg/dl AST 104 H (13-39) U/L ALT 59 H (7-52) U/L Alkaline Phosphatase 103 (34-104) U/L Albumin 2.1 L (3.4-5.0) gm/dl Medications Administered Current Inpatient Medications Acetaminophen (Acetaminophen Susp 325 Mg/10.15 Ml Udc) 650 mg OG Q4H PRN PRN Reason: Pain or Fever Stop: 06/14/21 09:33 Aspirin (Aspirin 81 Mg Chew) 81 mg NG DAILY SAMANTHA Stop: 06/15/21 08:59 Last Admin: 05/16/21 08:31 Dose: 81 mg Documented by: Atorvastatin Calcium (Atorvastatin 40 Mg Tab) 80 mg NG HS SAMANTHA Stop: 06/14/21 20:59 Last Admin: 05/15/21 20:08 Dose: 80 mg Documented by: Atropine Sulfate (Atropine Sulfate 0.1 Mg/Ml 10ml Syr) 0.5 mg IV Q1M PRN PRN Reason: PACU Use-HR<40 &/or Bradycardi Stop: 05/16/21 20:28 Bisacodyl (Bisacodyl 10 Mg Supp) 10 mg ND DAILY PRN PRN Reason: constipation Stop: 06/13/21 23:07 Docusate Sodium (Docusate Sodium Syrup 100 Mg/10 Ml Udc) 100 mg NG BID PRN PRN Reason: Constipation Stop: 06/14/21 09:35 Donepezil HCl (Donepezil Hcl 5 Mg Tab) 5 mg PO HS SAMANTHA Stop: 06/14/21 20:59 Last Admin: 05/15/21 20:08 Dose: 5 mg Documented by: Ephedrine Sulfate (Ephedrine Sulfate 50 Mg/Ml Amp) 5 mg IV Q5M PRN PRN Reason: PACU Use Only-SBP<90 mmHg Stop: 05/16/21 20:28 Fentanyl Citrate (Fentanyl Citrate 100 Mcg/2 Ml Vial) 50 mcg IV Q2H PRN PRN Reason: Moderate Pain (4,5,6) on NRS Stop: 05/29/21 08:43 Fentanyl Citrate (Fentanyl Citrate 100 Mcg/2 Ml Vial) 25 mcg IV Q5M PRN PRN Reason: PACU Use Only-Pain Stop: 05/16/21 20:29 Flumazenil (Flumazenil 0.1 Mg/1 Ml 10 Ml Vial) 0.2 mg IV Q2M PRN PRN Reason: PACU Use Only-Benzo Reversal Stop: 05/16/21 20:29 Gabapentin (Gabapentin 250 Mg/5 Ml 470 Ml Btl) 300 mg NG QAM SAMANTHA Stop: 06/15/21 08:59 Last Admin: 05/16/21 08:32 Dose: 300 mg Documented by: Gabapentin (Gabapentin 250 Mg/5 Ml 470 Ml Btl) 600 mg NG HS SAMANTHA Stop: 06/14/21 20:59 Last Admin: 05/15/21 20:08 Dose: 600 mg Documented by: Heparin Sodium (Porcine) (Heparin Sod 5,000 Unit/0.5 Ml Vial) 5,000 units SQ Q8 SAMANTHA Stop: 06/14/21 13:59 Last Admin: 05/16/21 06:11 Dose: 5,000 units Documented by: Piperacillin Sod/Tazobactam (Sod 3.375 gm/ Dextrose) 115 mls @ 28.75 mls/hr IV Q8H SAMANTHA; Protocol Stop: 05/22/21 05:59 Last Infusion: 05/16/21 09:20 Dose: Infused Documented by: Propofol (Diprivan) 1,000 mg in 100 mls @ 0 mls/hr IV .Q0M SAMANTHA; Protocol Stop: 05/18/21 08:29 Last Titration: 05/16/21 10:25 Dose: 0 mcg/kg/min, 0 mls/hr Documented by: Phenylephrine HCl 20 mg/ (Dextrose) 502 mls @ 0 mls/hr IV .Q0M SAMANTHA; Protocol Stop: 06/14/21 08:29 Last Titration: 05/15/21 08:35 Dose: 0 mcg/kg/min, 0 mls/hr Documented by: Parenteral Electrolytes (Plasma-Lyte A) 1,000 mls @ 100 mls/hr IV .Q10H SAMANTHA Stop: 06/14/21 08:44 Last Infusion: 05/16/21 10:25 Dose: 0 mls/hr Documented by: Potassium Chloride (K Jerry / Wtr) 20 meq in 100 mls @ 50 mls/hr IV Q2H [facility] Stop: 05/16/21 14:29 Last Infusion: 05/16/21 10:25 Dose: 0 mls/hr Documented by: Sodium Chloride (Nss) 250 mls @ 15 mls/hr IV .[id number] PRN PRN Reason: For Transfusion Stop: 05/16/21 17:01 Vancomycin HCl 750 mg/ Sodium (Chloride) 265 mls @ 200 mls/hr IV Q12H [facility] Stop: 05/30/21 07:49 Last Infusion: 05/16/21 09:50 Dose: Infused Documented by: Promethazine HCl 12.5 mg/ (Sodium Chloride) 50.5 mls @ 204 mls/hr IV ONCE PRN PRN Reason: PACU Use Only-Nausea/Vomiting Stop: 05/16/21 20:29 Insulin Aspart (Insulin Aspart Per Unit) 0 units SC Q4 [facility] Stop: 06/15/21 03:59 Last Admin: 05/16/21 07:40 Dose: Not Given Documented by: Insulin Glargine (Insulin Glargine Solostar 100 Units/Ml 3 Ml Pen) 0 units SC [facility]; Protocol Stop: 06/15/21 20:59 Labetalol HCl (Labetalol Hcl Iv 5 Mg/Ml 20ml) 5 mg IV Q5M PRN PRN Reason: PACU Use-SBP>160 or DBP>100 Stop: 05/16/21 20:29 Lansoprazole (Lansoprazole 30 Mg Soltab) 30 mg NG DAILY [facility] Stop: 06/15/21 08:59 Last Admin: 05/16/21 08:33 Dose: 30 mg Documented by: Lisinopril (Lisinopril 5 Mg Tab) 5 mg PO QAM [facility] Stop: 06/15/21 10:29 Magnesium Oxide (Magnesium Oxide 400 Mg Tab) 400 mg NG QAM [facility] Stop: 06/14/21 08:59 Last Admin: 05/16/21 08:33 Dose: 400 mg Documented by: Metoprolol Tartrate (Metoprolol Tartrate 25 Mg Tab) 12.5 mg PO Q8H [facility] Stop: 06/15/21 10:29 Miscellaneous (Icu Electrolyte Replacement Protocol) 1 ea N/A BID@06,18 SAMANTHA; Protocol Stop: 05/22/21 17:59 Last Admin: 05/16/21 06:02 Dose: 1 ea Documented by: Miscellaneous (Icu Protocol For Hyperglycemia) 1 ea N/A PRN PRN; Protocol PRN Reason: Hyperglycemia Protocol Stop: 05/17/21 08:43 Miscellaneous Information (Vancomycin Consult Active) 1 ea N/A UD PRN PRN Reason: Consult Stop: 06/13/21 19:56 Miscellaneous Information (Piperacill/Tazobac Consult Active) 1 ea N/A UD PRN PRN Reason: Consult Stop: 06/13/21 23:07 Miscellaneous Information (Pharmacy Glycemic Mgmt Consult) 1 ea N/A UD PRN PRN Reason: Consult Stop: 06/13/21 23:07 Multivitamins/Minerals (Multi Vit W/Minerals Liquid 15 Ml Udp) 15 ml NG QAM [facility] Stop: 06/15/21 08:59 Last Admin: 05/16/21 08:34 Dose: 15 ml Documented by: Naloxone HCl (Naloxone Hcl 0.4 Mg/1 Ml Vial/Carp) 0.2 mg IV Q2M PRN PRN Reason: PACU Use Only-Opiate Reversal Stop: 05/16/21 20:29 Ondansetron HCl (Ondansetron Inj 2 Mg/Ml 2 Ml Vial) 4 mg IV ONCE PRN PRN Reason: PACU Use Only-Nausea/Vomiting Stop: 05/16/21 20:29 Polyethylene Glycol (Polyethylene (Miralax) 17 Gm Pack) 17 gm NG DAILY PRN PRN Reason: Constipation Stop: 06/13/21 23:07 Propofol (Propofol Bolus From Bag) 20 mg IV Q5M PRN PRN Reason: Sedation Stop: 05/18/21 08:19 Last Admin: 05/16/21 08:20 Dose: 20 mg Documented by: Sennosides (Sennosides 8.8 Mg/5 Ml Udc) 17.2 mg PO HS PRN PRN Reason: Constipation Stop: 06/14/21 09:41 Topiramate (Topiramate 50 Mg Tab) 50 mg PO BID [facility] Stop: 06/14/21 08:59 Last Admin: 04/03/22 08:34 Dose: 50 mg Documented by:
[2021-05-16 12:53] LABS: Hemoglobin 9.8 g/dL (12.0-16.0)
[2021-05-16] MEDS: lisinopril 5 MG TAB PO SCH (12:57)
[2021-05-16] MEDS: METOPROLOL TARTRATE 25 MG TAB PO SCH ×2 (12:57→18:35)
[2021-05-16] MEDS ORDERED: MAGNESIUM HYDROXIDE SUSP 30 ML UDC PO PRN ×2 (13:33)
[2021-05-16] MEDS ORDERED: METOCLOPRAMIDE HCL INJ 5 MG/ML 2 ML VIAL IV PRN (13:33)
[2021-05-16] MEDS ORDERED: HYDROmorphone INJ 0.5 MG/0.5 ML SYR IV PRN (13:33)
[2021-05-16] MEDS ORDERED: bisacodyL 10 MG SUPP PR PRN (13:33)
--- NOTE | 2021-05-16 13:46 | Anesthesiology Progress Note ---
Date of Service May 16, 2021 Anesthesia Post Procedure Vital Signs Vital Signs: Temp Pulse Pulse Resp BP BP BP 05/16/21 13:30 36.8 C 91 H 21 145/72 H 05/16/21 13:20 36.8 C 91 H 20 130/71 05/16/21 13:15 36.8 C 92 H 20 05/16/21 13:10 36.9 C 94 H 20 134/67 05/16/21 13:00 36.9 C 94 H 17 128/87 05/16/21 12:53 0 L 05/16/21 12:40 37 C 97 H 20 155/52 H 138/71 05/16/21 12:30 37 C 95 H 12 136/47 L 117/63 05/16/21 10:15 37.5 C 88 19 05/16/21 10:10 37.5 C 88 25 H 165/96 H 05/16/21 10:00 37.4 C 91 H 21 187/104 H 05/16/21 09:50 37.4 C 90 24 168/84 H 05/16/21 09:45 37.4 C 90 21 05/16/21 09:30 37.3 C 84 24 05/16/21 09:25 37.3 C 85 24 168/103 H 05/16/21 09:15 37.3 C 88 25 H 05/16/21 09:11 37.3 C 86 24 168/103 H 05/16/21 09:10 37.3 C 85 24 145/75 H 05/16/21 09:00 37.3 C 86 24 169/116 H 05/16/21 08:56 37.3 C 87 24 170/70 H 05/16/21 08:45 37.3 C 84 22 05/16/21 08:41 37.3 C 84 24 167/66 H 05/16/21 08:40 37.3 C 83 24 161/66 H 05/16/21 08:35 37.3 C 86 24 175/69 H 05/16/21 08:30 37.3 C 87 21 05/16/21 08:15 37.3 C 85 25 H 05/16/21 08:12 37.3 C 85 24 166/67 H 05/16/21 08:00 37.3 C 83 21 176/96 H 05/16/21 07:57 37.3 C 85 24 167/65 H 05/16/21 07:51 37.3 C 83 24 164/61 H 05/16/21 07:45 37.3 C 82 22 05/16/21 07:37 37.3 C 83 22 155/59 H 05/16/21 07:30 37.2 C 81 21 05/16/21 07:26 80 20 05/16/21 07:15 37.2 C 79 24 05/16/21 07:00 37.1 C 80 21 148/87 H 05/16/21 06:45 37.1 C 79 22 05/16/21 06:30 37.0 C 81 21 05/16/21 06:01 36.9 C 78 22 150/79 H 05/16/21 06:00 36.9 C 76 24 05/16/21 05:30 36.8 C 77 24 05/16/21 05:01 36.7 C 76 29 H 137/74 05/16/21 05:00 36.7 C 74 18 05/16/21 04:30 36.6 C 74 17 05/16/21 04:01 36.6 C 69 20 135/87 05/16/21 04:00 36.6 C 68 18 135/87 05/16/21 03:30 36.5 C 69 18 05/16/21 03:15 68 20 05/16/21 03:00 36.4 C L 67 18 140/87 05/16/21 02:30 36.4 C L 70 20 05/16/21 02:00 36.4 C L 75 20 129/77 05/16/21 01:30 36.4 C L 73 20 05/16/21 01:00 36.3 C L 66 20 136/78 05/16/21 00:30 36.3 C L 67 20 05/16/21 00:00 36.2 C L 68 20 135/73 05/15/21 23:30 36.2 C L 64 20 05/15/21 23:00 36.2 C L 68 20 128/67 05/15/21 22:50 67 21 05/15/21 22:32 68 05/15/21 22:30 36.2 C L 68 21 05/15/21 22:00 36.2 C L 68 17 117/68 05/15/21 21:30 36.2 C L 67 21 05/15/21 21:01 36.2 C L 73 22 120/67 05/15/21 21:00 36.2 C L 72 22 05/15/21 20:30 36.1 C L 70 20 05/15/21 20:00 36.1 C L 67 20 133/71 05/15/21 19:30 36.1 C L 68 20 05/15/21 19:17 68 22 05/15/21 19:00 36.2 C L 68 17 05/15/21 18:30 36.3 C L 70 20 05/15/21 18:00 36.3 C L 67 27 H 05/15/21 17:00 36.4 C L 68 20 113/61 05/15/21 16:00 36.6 C 72 20 113/62 05/15/21 15:19 77 20 05/15/21 15:00 36.8 C 74 20 111/63 05/15/21 14:00 37.0 C 76 20 111/61 Pulse Ox 05/16/21 13:30 95 05/16/21 13:20 95 05/16/21 13:15 95 05/16/21 13:10 95 05/16/21 13:00 93 05/16/21 12:53 93 05/16/21 12:40 93 05/16/21 12:30 93 05/16/21 10:15 98 05/16/21 10:10 98 05/16/21 10:00 99 05/16/21 09:50 99 05/16/21 09:45 99 05/16/21 09:30 99 05/16/21 09:25 99 05/16/21 09:15 99 05/16/21 09:11 99 05/16/21 09:10 99 05/16/21 09:00 99 05/16/21 08:56 100 05/16/21 08:45 99 05/16/21 08:41 99 05/16/21 08:40 99 05/16/21 08:35 99 05/16/21 08:30 98 05/16/21 08:15 99 05/16/21 08:12 99 05/16/21 08:00 100 05/16/21 07:57 99 05/16/21 07:51 100 05/16/21 07:45 99 05/16/21 07:37 98 05/16/21 07:30 100 05/16/21 07:26 100 05/16/21 07:15 98 05/16/21 07:00 100 05/16/21 06:45 99 05/16/21 06:30 99 05/16/21 06:01 100 05/16/21 06:00 99 05/16/21 05:30 97 05/16/21 05:01 97 05/16/21 05:00 96 05/16/21 04:30 99 05/16/21 04:01 98 05/16/21 04:00 98 05/16/21 03:30 98 05/16/21 03:15 98 05/16/21 03:00 100 05/16/21 02:30 100 05/16/21 02:00 96 05/16/21 01:30 99 05/16/21 01:00 100 05/16/21 00:30 100 05/16/21 00:00 100 05/15/21 23:30 100 05/15/21 23:00 100 05/15/21 22:50 99 05/15/21 22:32 05/15/21 22:30 100 05/15/21 22:00 100 05/15/21 21:30 100 05/15/21 21:01 98 05/15/21 21:00 100 05/15/21 20:30 100 05/15/21 20:00 100 05/15/21 19:30 100 05/15/21 19:17 99 05/15/21 19:00 98 05/15/21 18:30 92 05/15/21 18:00 100 05/15/21 17:00 100 05/15/21 16:00 100 05/15/21 15:19 99 05/15/21 15:00 100 05/15/21 14:00 100 Transfer of Care Handoff Completed per policy Notes Mental Status: see notes below Patient Amnestic to Procedure: Yes Nausea / Vomiting: adequately controlled Pain: adequately controlled Airway Patency, RR, SpO2: stable & adequate BP & HR: stable & adequate Hydration State: stable & adequate Anesthetic Complications: no major complications apparent Notes: patient was brought to ICU from OR intubated being manually ventilated w/ 1.0 FIO2 and monitors on. Pt was attached to mechanical ventilator w/ settings as per ICU physician. Report was given.Pt remains in critical but stable condition at this time.
[2021-05-16] MEDS ORDERED: INSULIN ASPART U SQ SCH (14:00)
[2021-05-16] MEDS ORDERED: INSULIN SQ SCH (14:00)
[2021-05-16] MEDS ORDERED: INSULIN GLARGINE SOLOSTAR 100 UNITS/ML 3 ML PEN SQ ONE (14:00)
[2021-05-16] MEDS: ACETAMINOPHEN 500 MG TAB PO SCH ×2 (16:16→20:10)
[2021-05-16] MEDS: DONEPEZIL HCL 5 MG TAB PO SCH (20:10)
[2021-05-16] MEDS: DOCUSATE SODIUM SYRUP 100 MG/10 ML UDC GT SCH (20:10)
[2021-05-16] MEDS: ATORVASTATIN 40 MG TAB NG SCH (20:11)
[2021-05-16 20:59] LABS: Hematocrit (blood only) 28.9 % (37-47); Hemoglobin 9.4 g/dL (12.0-16.0)
[2021-05-16] MEDS ORDERED: INSULIN GLARGINE SOLOSTAR 100 UNITS/ML 3 ML PEN SC SCH (21:00)
[2021-05-16] MEDS ORDERED: DOCUSATE SODIUM 100 MG CAP PO SCH (21:00)
[2021-05-16] MEDS ORDERED: SENNA 8.6 MG TAB PO SCH (21:00)
[2021-05-16 21:17] LABS: BUN Creatinine Ratio 12.8 (10-20); Calcium 6.9 mg/dl (8.5-10.1); Creatinine Clr Calc Pharmacy 67.4 ml/min; Est GFR (African American) 94.4 ml/min; Est GFR (Non-African American) 81.5 ml/min; Magnesium 2.4 mg/dl (1.7-2.4); Phosphorus 2.4 mg/dl (2.5-4.9); Potassium 3.7 mmol/L (3.5-5.1)
[2021-05-16] MEDS ORDERED: POTASSIUM PHOS 3 MMOL/1 ML INFUSION IV STA (21:29)
[2021-05-16] MEDS ORDERED: POTASSIUM PHOSPHATE 15 MMOL in DEXTROSE 5% 250 ML IV ONE (22:00)
[2021-05-17] MEDS: fentaNYL citrate 100 MCG/2 ML VIAL IV PRN ×4 (00:32→08:19)
[2021-05-17] MEDS: ACETAMINOPHEN 500 MG TAB PO SCH ×6 (00:42→21:15)
[2021-05-17] MEDS: PROPOFOL BOLUS FROM BAG IV PRN ×6 (01:57→06:41)
[2021-05-17] MEDS: METOPROLOL TARTRATE 25 MG TAB PO SCH ×2 (03:11→11:44)
[2021-05-17] MEDS: NORMOSOL-R 1,000 ML IV SCH ×3 (03:12→23:15)
[2021-05-17] MEDS: INSULIN ASPART PER UNIT SC SCH ×5 (04:10→20:14)
[2021-05-17] MEDS: propofoL 1,000 MG/100 ML VIAL IV SCH ×2 (04:10→06:20)
[2021-05-17 05:21] LABS: Hematocrit (blood only) 29.9 % (37-47); Hemoglobin 9.7 g/dL (12.0-16.0); Mean Corpuscular Hemoglobin 27.3 pg (25-34); Mean Corpuscular Hgb Conc 32.4 g/dL (32-36); Mean Corpuscular Volume 84.2 fL (80-100); Mean Platelet Volume 10.7 fL (7.4-10.4); Platelet Count 224 K/uL (130-400); RDW Coefficient of Variation 18.5 % (11.5-14.5); RDW Standard Deviation 56.4 fL (36.4-46.3); Red Blood Count 3.55 M/uL (4.2-5.4); White Blood Count 18.49 K/uL (4.8-10.8)
[2021-05-17 05:28] LABS: Base Excess ABG -0.4 mEq/L (-9-1.8); HCO3 ABG 23 mmol/L (19-24); Oxygen Saturation ABG 94.4 % (90-95); PCO2 ABG 32 mmHg (35-46); PO2 ABG 68 mmHg (80-95); pH ABG 7.46 (7.35-7.45)
[2021-05-17] MEDS: PIPERACILLIN/TAZOBACTAM 3.375 GM in DEXTROSE 5% 100 ML IV SCH ×3 (05:30→22:19)
[2021-05-17 05:34] LABS: Allen Test Pos (Pos)
[2021-05-17 05:36] LABS: ALC (manual) 0.98 K/uL (1.2-3.4); ANC (manual) 15.72 K/uL (1.4-6.5); Basophils # (manual) 0.17 K/uL (0-0.2); Basophils % (manual) 0.9 %; Eosinophils # (manual) 0.17 K/uL (0-0.5); Eosinophils % (manual) 0.9 %; Lymphocytes # (manual) 0.98 K/uL (1.2-3.4); Lymphocytes % (manual) 5.3 %; Monocytes # (manual) 1.29 K/uL (0.11-0.59); Myelocytes # (manual) 0.17 K/uL (0-0); Myelocytes % (manual) 0.9 %; Neutrophils # (manual) 15.72 K/uL (1.4-6.5); Polychromasia 1+; Toxic Vacuolation Occasional
[2021-05-17 05:45] LABS: Albumin Globulin Ratio 0.6 (0.9-2); Albumin Level 2.2 gm/dl (3.4-5.0); BUN Creatinine Ratio 12.9 (10-20); Bilirubin,Total 1.7 mg/dl (0.2-1.0); Creatinine Clr Calc Pharmacy 75.1 ml/min; Est GFR (African American) 107.6 ml/min; Est GFR (Non-African American) 92.9 ml/min; Globulin 3.7 gm/dl (2.5-4.0); Magnesium 2.4 mg/dl (1.7-2.4); Phosphorus 2.5 mg/dl (2.5-4.9); Total Protein 5.9 gm/dl (6.0-8.3)
[2021-05-17] MEDS: ICU ELECTROLYTE REPLACEMENT PROTOCOL SCH ×2 (05:52→18:21)
[2021-05-17] MEDS ORDERED: SODIUM PHOSPHATE 3 MMOL/1 ML INFUSION IV STA (05:54)
[2021-05-17] MEDS ORDERED: SODIUM PHOSPHATE 15 MMOL in SODIUM CHLORIDE 0.9% 250 ML IV ONE (06:30)
[2021-05-17] MEDS: VANCOMYCIN HCL 750 MG in SODIUM CHLORIDE 0.9% 250 ML IV SCH ×2 (07:51→19:38)
[2021-05-17] MEDS: GABAPENTIN 250 MG/5 ML 470 ML BTL NG SCH ×2 (07:53→21:11)
[2021-05-17] MEDS: DOCUSATE SODIUM SYRUP 100 MG/10 ML UDC GT SCH ×2 (07:54→21:11)
[2021-05-17] MEDS: TOPIRAMATE 50 MG TAB PO SCH ×2 (07:54→21:12)
[2021-05-17] MEDS: FUROSEMIDE 20 MG TAB PO SCH (07:54)
[2021-05-17] MEDS: ASPIRIN 81 MG CHEW NG SCH (07:55)
[2021-05-17] MEDS: LANSOPRAZOLE 30 MG SOLTAB NG SCH (07:56)
[2021-05-17] MEDS: lisinopril 5 MG TAB PO SCH (07:56)
[2021-05-17] MEDS: MULTI VIT W/MINERALS LIQUID 15 ML UDP NG SCH (07:56)
[2021-05-17] MEDS: POLYETHYLENE (MIRALAX) 17 GM PACK GT SCH (07:57)
[2021-05-17] MEDS ORDERED: INSULIN GLARGINE SOLOSTAR 100 UNITS/ML 3 ML PEN SQ SCH ×2 (09:00→21:00)
[2021-05-17] MEDS ORDERED: POLYETHYLENE (MIRALAX) 17 GM PACK PO SCH (09:00)
[2021-05-17] MEDS ORDERED: METOPROLOL SUCC 50MG EXT REL TAB PO SCH (09:00)
[2021-05-17] MEDS ORDERED: lisinopril 10 MG TAB PO SCH (09:00)
[2021-05-17] MEDS ORDERED: MULTIVITAMIN TAB PO SCH (09:00)
[2021-05-17] MEDS ORDERED: INSULIN GLARGINE SOLOSTAR 100 UNITS/ML 3 ML PEN SQ ONE (09:00)
--- NOTE | 2021-05-17 09:08 | Progress Notes ---
DATE OF SERVICE: 05/17/2021. SUBJECTIVE: A 60-year-old female with multiple medical comorbidities, now postoperative day 1 from a left below-knee amputation for a left ankle wound, infection, osteomyelitis. She continues to be on the ventilator. She looks to be resting pretty comfortably. OBJECTIVE: VITAL SIGNS: Temperature is 37.2. Vital signs fairly stable. A little hypertensive and borderline tachycardic. GENERAL: Sedated middle-aged female. She is intubated. EXTREMITIES: Examination of the left leg reveals the dressing to be clean, dry and intact. LABORATORY DATA: Hemoglobin is 9.7. Hematocrit is 29.9. White cell count 18.49. Electrolytes are stable. ASSESSMENT: A 60-year-old female with multiple medical comorbidities, now postoperative day 1 from a left below-knee amputation for chronic foot and ankle infection and wound breakdown after a previous ORIF. She was admitted with sepsis. Currently, medically appears fairly stable. Still intubated. PLAN: 1. DVT prophylaxis including thigh-high TEDs, SCDs, and she can resume her Plavix and her baby aspir in 24 hours postop. 2. PT/OT. Deferred for now while intubated. She will likely require PT and OT once extubated. 3. IV antibiotics. I would recommend 24 hours of IV antibiotics post-amputation. Other than that, she will require antibiotics as per sepsis protocol and management. Does not need further antibiotic s for her left leg. 4. Routine wound care. 5. Medical management per the medicine service. Job ID: [id number]
--- NOTE | 2021-05-17 09:28 | Critical Care Progress Note ---
Date of Service May 17, 2021 Assessment & Plan (1) Severe sepsis with septic shock: (2) Poorly controlled diabetes mellitus: (3) Osteomyelitis: (4) Lactic acidosis: (5) Anemia: (6) Hyponatremia: Plan: Impression: 60-year-old female with poorly controlled diabetes (hemoglobin A1c above 10) admitted with osteomyelitis and infected hardware of the ankle and severe sepsis with septic shock resulting encephalopathy. 24-hour events: Extubated this morning Recommendations: 1. Neurologic: Discontinue sedation with propofol. Transition to dilaudid/oxycodonel for analgesia. Holding her gabapentin, donepezil, and duloxetine for now as well as her Topamax and tramadol secondary to not passing bedside swallow 2. Cardiovascular: Severe sepsis with septic shock: Lactate. Cortisol appropriately elevated. Echo pending. - Restart her metoprolol at home dose and lisinopril at home dose. Restart her Plavix. 3. Pulmonary: Liberated from ventilator this morning 4. 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 Blood cultures positive for staph species, pending MRSA analysis. Continue vancomycin and Rocephin. To the OR today for amputation. We will check surveillance cultures when she returns from the OR. Follow-up on echocardiogram. May need JUAN DAVID if persistently bacteremic. ID consultation if persistently bacteremic. - Repeat culture tomoorw AM, - Zosyn today, likely d/c tomorrow 5. GI: N.p.o. for now. Prophylaxis will be initiated. Mild elevation in transaminases. Continue to trend. May be secondary to sepsis. 6. Renal: Hyponatremia likely secondary to hypovolemia, now resolved. Hypokalemia on replacement. Replace calcium as well. ICU electrolyte replacement protocol. Acid-base status acceptable. 7. Heme-onc: Progressive anemia. Suspect related to chronic disease. No evidence of acute blood loss. S/P 2U PRBC We will continue to monitor counts. 8. Endocrine: Poorly controlled diabetes. Glycemic control per pharmacy Patient was discussed on multi-disciplinary rounds Patient is severely critically ill at this point time with significant probability of clinical deterioration and . A total of 50 minutes in critical care time was spent in evaluation management and stabilization of this patient including discussion with consultants. This time is exclusive of procedures. Admission and Anticipated Discharge Date Admission Date: May 14, 2021 Results & Data Results & Data ([facility]) Vital Signs (Past 12 Hours) Vital Signs Temp Pulse Pulse Resp BP BP Pulse Ox 05/17/21 07:31 37.2 C 102 H 28 H 176/102 H 96 05/17/21 07:24 98 H 26 H 96 05/17/21 07:20 101 H 26 H 96 05/17/21 06:00 37.2 C 93 H 19 154/84 H 97 05/17/21 05:50 18 05/17/21 05:00 37.0 C 95 H 19 163/101 H 94 05/17/21 04:00 37.0 C 90 21 162/93 H 95 05/17/21 03:22 37.0 C 92 H 17 177/99 H 96 05/17/21 03:16 92 H 21 97 05/17/21 03:00 37.0 C 95 H 24 96 05/17/21 02:00 37.0 C 90 22 167/106 H 97 05/17/21 01:01 37.0 C 88 24 148/106 H 97 05/17/21 01:00 37.0 C 89 20 96 05/17/21 00:00 37.1 C 91 H 23 165/91 H 96 05/16/21 23:21 87 05/16/21 23:00 37.0 C 87 20 98 05/16/21 22:00 37.0 C 83 20 152/99 H 99 Coding Level of Care Code Critical Care 1st 30-74 mins Diagnoses Severe sepsis with septic shock A41.9; R65.21 Poorly controlled diabetes mellitus E11.65 Osteomyelitis M86.9 Lactic acidosis E87.2 Anemia D64.9 Hyponatremia E87.1
--- NOTE | 2021-05-17 09:43 | XRay Report ---
XR chest 1V portable CLINICAL HISTORY: Dyspnea TECHNIQUE: Single frontal radiograph of the chest was obtained. Comparison: Comparison is made to chest one view 05/15/2021 FINDINGS: Lines and tubes are stable. The cardiomediastinal silhouette is obscured. Multifocal airspace opaciti es are seen. No pneumothorax is seen, pleural effusions cannot be excluded. IMPRESSION: Interval stability of lines and tubes. Multifocal airspace opacities may represent atelectasis, pneum onia, and/or aspiration. Small bilateral pleural effusions are likely. ACT 112: Negative or not required by law. Electronically signed by: Johny Ferrer M.D. 05/17/2021 9:42 AM
[2021-05-17] MEDS ORDERED: HYDROmorphone INJ 0.5 MG/0.5 ML SYR IV PRN (09:53)
[2021-05-17] MEDS: HYDROmorphone INJ 1 MG/ML SYRINGE IV PRN ×4 (10:26→19:13)
[2021-05-17] MEDS: METOPROLOL SUCC 50MG EXT REL TAB PO SCH ×2 (11:43→21:11)
--- NOTE | 2021-05-17 13:06 | Pharmacy Report ---
Pharmacy Glycemic Short Note 2 - Date of Service May 17, 2021 - Glycemic Short BSG Results (Last 24 hours): 05/16/21 05/16/21 05/16/21 16:18 19:37 20:36 Glucose 118 H POC Glucose 166 H 135 H 05/16/21 05/17/21 05/17/21 23:50 04:04 05:05 Glucose 115 H POC Glucose 148 H 126 H 05/17/21 05/17/21 05/17/21 07:11 11:14 12:02 Glucose POC Glucose 137 H 150 H 149 H OUTPATIENT ANTIDIABETIC REGIMEN: * Basaglar 46 units SQ qAM * Novolog sliding scale * HbA1C = 10.3% (05/15/21) ASSESSMENT: 05/17 * BSGs well controlled over last 24 hrs * Patient was extubated thus AM, however will likely remain NPO today. No need for pressor support. * Fasting BSGs in 120-150's with 10 units basal on board from yesterday, and only requiring occasional correctional insulin for BSGs > 140 * Will continue similar basal insulin dose for now. Once diet is advanced, basal needs may increase (outpt basal insulin dose much greater than what is currently ordered) * Will continue with Novolog Q 4 hrs using "severe" stress doses (pt has demonstrated need for high rapid acting insulin doses on prior admissions) 05/16 * Patient was initiated on insulin infusion yesterday around noon due to two consecutive BSGs > 200 mg/dL. Insulin infusion was discontinued yesterday evening due to BSGs < 140 mg/dL. * q4 checks started after this and overnight BSGs remained < 140 mg/dL. * Will currently continue with q4 checks of BSGs with weight-based stress of 3 CF. * Patient remains NPO and intubated (sedated with propofol). * Reorder Lantus when BSGs trend above 160 mg/dL. Plan for 10 units. PLAN FOR INPATIENT GLYCEMIC CONTROL: * Hold outpatient oral diabetes medications * Basal insulin * Lantus 10 units Q AM, will give additional 5 units thus PM if BSG > 160 * Bolus insulin * NovoLog per scale AC * Goal Range: Low 110 mg/dL - High 140 mg/dL * Correction Factor: 20 mg/dL/unit * Nutritional / Prandial insulin per carb ratio of 1 unit per 8 grams CHO c onsumed
[2021-05-17] MEDS ORDERED: METOPROLOL TARTRATE 1 MG/ML VIAL IV STA ×2 (14:17→20:42)
[2021-05-17] MEDS ORDERED: METOPROLOL TARTRATE 1 MG/ML VIAL IV ONE (14:20)
--- NOTE | 2021-05-17 20:09 | Hospitalist Progress Note ---
Date of Service May 17, 2021 Assessment & Plan (1) Severe sepsis: Plan: Secondary to infected wound/osteomyelitis of the left ankle Gram-positive bacteremia Her blood pressure dropped while in the hospital and almost in septic shock She was transferred to ICU and was intubated Has been on intravenous Zosyn and vancomycin Blood culture is growing gram-positive cocci in clusters in 2 x 2 bottles Currently on IV Zosyn and Vanco ID consulted- pending Severe anemia Secondary to sepsis Hemoglobin dropped to 6.7 Received 2 units of blood transfusion Hgb 9.7 today Continue monitor CBC (2) Bone infection of left ankle: Plan: History of bimalleolar fracture of the ankle in March, Status post repair with hardware placement Has infection in the open wound and likely has osteomyelitis which is the source of sepsis S/P Left Below Knee Amputation(Left) performed by Dr Yo No Post op complication Continue monitor H/H (3) Bimalleolar fracture of left ankle: Plan: As above (4) (HFpEF) heart failure with preserved ejection fraction: Plan: History of CHF as above Limiting use of IV fluid for sepsis (5) Diabetes mellitus, type 2: Plan: Diabetes seems to be uncontrolled Diabetic neuropathy Hemoglobin A1c noted to be high at 10.3 Glycemic pharmacist has been consulted Has been on intravenous insulin (6) Electrolyte imbalance: Plan: Has significant electrolyte imbalance including Stable CAD status post CABG Mild elevation of troponin Likely secondary to sepsis and a stress induced Doubt any ACS Plan: DVT prophylaxis Subcu heparin CODE STATUS Full Admission and Anticipated Discharge Date Admission Date: May 14, 2021 Subjective Pt was seen and examined for follow up of sepsis Lying in bed in distress and weak Pt was extubated this morning Review of Systems Review of Systems: All systems reviewed & are unremarkable except as noted in Subjective Physical Exam Physical Exam: General- No acute distress Head- atraumatic Eyes- PERRL, EOMI, ENT- oropharynx clear Neck- supple, no JVD Lungs- +Coarse BS Heart- regular rhythm; no murmur Abdomen- normal bowel sounds, soft, nontender Extremities- no calf tenderness Neuro- alert, oriented x 3; PERRL, EOMI; no facial palsy; no dysarthria Skin- warm & dry Results & Data Results & Data ([facility]) Vital Signs (Past 12 Hours) Vital Signs Temp Pulse Resp BP Pulse Ox 05/17/21 18:00 37.7 C H 116 H 27 H 180/127 H 97 05/17/21 17:00 37.8 C H 115 H 38 H 200/111 H 98 05/17/21 16:00 37.8 C H 110 H 31 H 193/104 H 98 05/17/21 15:00 37.6 C H 108 H 18 165/108 H 97 05/17/21 14:20 120 H 05/17/21 14:02 37.5 C 122 H 17 210/118 H 97 05/17/21 14:00 37.5 C 121 H 12 202/136 H 97 05/17/21 13:00 37.4 C 122 H 28 H 151/109 H 96 05/17/21 12:00 37.2 C 120 H 20 154/100 H 98 05/17/21 11:00 37.4 C 116 H 20 143/105 H 97 05/17/21 10:00 37.3 C 106 H 16 180/105 H 90 05/17/21 09:00 37.3 C 107 H 14 166/104 H 90
[2021-05-17] MEDS: ACETAMINOPHEN 1,000 MG/100 ML VIAL IV PRN (20:56)
[2021-05-17] MEDS: ATORVASTATIN 40 MG TAB NG SCH (21:11)
[2021-05-17] MEDS: DONEPEZIL HCL 5 MG TAB PO SCH (21:11)
[2021-05-18] MEDS: INSULIN ASPART PER UNIT SC SCH ×6 (00:02→21:24)
[2021-05-18] MEDS: HYDROmorphone INJ 1 MG/ML SYRINGE IV PRN ×2 (04:16→08:19)
[2021-05-18] MEDS: ACETAMINOPHEN 1,000 MG/100 ML VIAL IV PRN ×2 (05:00→19:37)
[2021-05-18 06:03] LABS: Hematocrit (blood only) 30.8 % (37-47); Hemoglobin 9.4 g/dL (12.0-16.0); Mean Corpuscular Hemoglobin 26.9 pg (25-34); Mean Corpuscular Hgb Conc 30.5 g/dL (32-36); Mean Corpuscular Volume 88.3 fL (80-100); Mean Platelet Volume 10.4 fL (7.4-10.4); Nucleated RBC # (auto) 0.02 K/uL (0-0); Nucleated RBC % (auto) 0.1 %; Platelet Count 252 K/uL (130-400); RDW Coefficient of Variation 18.9 % (11.5-14.5); RDW Standard Deviation 60.5 fL (36.4-46.3); Red Blood Count 3.49 M/uL (4.2-5.4); White Blood Count 18.24 K/uL (4.8-10.8)
[2021-05-18] MEDS: PIPERACILLIN/TAZOBACTAM 3.375 GM in DEXTROSE 5% 100 ML IV SCH (06:20)
[2021-05-18 06:25] LABS: ALC (manual) 1.59 K/uL (1.2-3.4); ANC (manual) 15.05 K/uL (1.4-6.5); Eosinophils # (manual) 0.16 K/uL (0-0.5); Eosinophils % (manual) 0.9 %; Hypochromasia Present; Lymphocytes # (manual) 1.59 K/uL (1.2-3.4); Lymphocytes % (manual) 8.7 %; Monocytes # (manual) 1.28 K/uL (0.11-0.59); Myelocytes # (manual) 0.16 K/uL (0-0); Myelocytes % (manual) 0.9 %; Neutrophils # (manual) 15.05 K/uL (1.4-6.5); Neutrophils % (manual) 82.5 %; Polychromasia 1+
[2021-05-18 06:33] LABS: Bilirubin,Total 3.8 mg/dl (0.2-1.0)
[2021-05-18 06:34] LABS: Albumin Level 2.3 gm/dl (3.4-5.0); BUN Creatinine Ratio 10.4 (10-20); Bilirubin Direct 2.9 mg/dl (0-0.2); Calcium 6.9 mg/dl (8.5-10.1); Creatinine Clr Calc Pharmacy 78.6 ml/min; Est GFR (African American) 109.2 ml/min; Est GFR (Non-African American) 94.2 ml/min; Magnesium 2.1 mg/dl (1.7-2.4); Phosphorus 2.3 mg/dl (2.5-4.9); Potassium 3.8 mmol/L (3.5-5.1)
[2021-05-18] MEDS: ICU ELECTROLYTE REPLACEMENT PROTOCOL SCH ×2 (06:40→17:13)
[2021-05-18] MEDS ORDERED: SODIUM PHOSPHATE 3 MMOL/1 ML INFUSION IV STA (06:41)
[2021-05-18] MEDS ORDERED: SODIUM PHOSPHATE 15 MMOL in SODIUM CHLORIDE 0.9% 250 ML IV ONE (07:00)
[2021-05-18] MEDS: POTASSIUM CHLORIDE / WTR 20 MEQ/100 ML PLCT IV SCH ×2 (07:15→08:20)
[2021-05-18] MEDS ORDERED: VANCOMYCIN TROUGH ONE (07:30)
[2021-05-18] MEDS: VANCOMYCIN HCL 750 MG in SODIUM CHLORIDE 0.9% 250 ML IV SCH ×2 (08:23→21:15)
[2021-05-18] MEDS ORDERED: INSULIN GLARGINE SOLOSTAR 100 UNITS/ML 3 ML PEN SQ SCH (09:00)
[2021-05-18] MEDS: NORMOSOL-R 1,000 ML IV SCH (09:25)
--- NOTE | 2021-05-18 09:34 | Critical Care Progress Note ---
Date of Service May 18, 2021 Assessment & Plan (1) Severe sepsis with septic shock: (2) Poorly controlled diabetes mellitus: (3) Osteomyelitis: (4) Lactic acidosis: (5) Anemia: (6) Hyponatremia: Plan: Impression: 60-year-old female with poorly controlled diabetes (hemoglobin A1c above 10) admitted with osteomyelitis and infected hardware of the ankle and severe sepsis with septic shock resulting encephalopathy. 24-hour events: Extubated this morning Recommendations: 1. Neurologic: Acute encephalopathy: Improving Transition to oxycodone for analgesia. Resume her gabapentin, donepezil, and duloxetine, Topamax and tramadol. 2. Cardiovascular: Severe sepsis with septic shock: Lactate normal Cortisol appropriately elevated. Echo reviewed - Restart her metoprolol at home dose and lisinopril at home dose. Restart her Plavix. 3. Pulmonary: Liberated from ventilator > 24 hours ago 4. 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 Blood cultures positive for MRSA. Continue vancomycin. - Reviewed ID recommendations - Zosyn discontinued 5. GI: Full liquids, advance diet as tolerated. Prophylaxis will be initiated. Mild elevation in transaminases likely related to recent sepsis. 6. Renal: Hyponatremia resolved. Hypokalemia on replacement. Replace calcium as well. ICU electrolyte replacement protocol. Acid-base status acceptable. 7. Heme-onc: Progressive anemia. Suspect related to chronic disease. No evidence of acute blood loss. S/P 2U PRBC prior to OR 8. Endocrine: Poorly controlled diabetes. Glycemic control per pharmacy Patient was discussed on multi-disciplinary rounds Patient is stable for downgrade from ICU. Admission and Anticipated Discharge Date Admission Date: May 14, 2021 Subjective Improved mental status, would like to try breakfast this morning Physical Exam Physical Exam: General: Alert. nontoxic. Skin: Warm, dry, Head: Atraumatic Ears, nose, mouth and throat: airway patent Cardiovascular: Normal peripheral perfusion, tachycardia Respiratory: no respiratory distress Gastrointestinal: Non distended Musculoskeletal: No shadowing on left lower BKA dressing Results & Data Results & Data ([facility]) Vital Signs (Past 12 Hours) Vital Signs Temp Pulse Resp BP Pulse Ox 05/18/21 05:17 149/93 H 05/18/21 05:00 37.3 C 112 H 14 143/99 H 90 05/18/21 04:37 159/98 H 05/18/21 04:01 163/104 H 05/18/21 04:00 37.2 C 106 H 14 98 05/18/21 03:00 37.2 C 103 H 12 155/109 H 98 05/18/21 02:28 37.2 C 103 H 14 150/89 H 98 05/18/21 02:15 37.3 C 104 H 15 150/89 H 97 05/18/21 02:00 37.3 C 108 H 14 168/103 H 93 05/18/21 01:00 37.3 C 108 H 12 151/99 H 98 05/18/21 00:00 37.3 C 105 H 12 157/93 H 98 05/17/21 23:45 37.3 C 107 H 14 144/93 H 97 05/17/21 23:00 37.4 C 105 H 12 166/98 H 98 05/17/21 22:00 37.6 C H 104 H 12 169/100 H 97 Critical Care Results & Data Vital Signs (Past 12 Hours) Vital Signs Temp Pulse Resp BP Pulse Ox 05/18/21 05:17 149/93 H 05/18/21 05:00 37.3 C 112 H 14 143/99 H 90 05/18/21 04:37 159/98 H 05/18/21 04:01 163/104 H 05/18/21 04:00 37.2 C 106 H 14 98 05/18/21 03:00 37.2 C 103 H 12 155/109 H 98 05/18/21 02:28 37.2 C 103 H 14 150/89 H 98 05/18/21 02:15 37.3 C 104 H 15 150/89 H 97 05/18/21 02:00 37.3 C 108 H 14 168/103 H 93 05/18/21 01:00 37.3 C 108 H 12 151/99 H 98 05/18/21 00:00 37.3 C 105 H 12 157/93 H 98 05/17/21 23:45 37.3 C 107 H 14 144/93 H 97 05/17/21 23:00 37.4 C 105 H 12 166/98 H 98 05/17/21 22:00 37.6 C H 104 H 12 169/100 H 97 Lab & Micro Results (Past 24 Hours) RBC 3.49 M/uL (4.2-5.4) L 05/18/21 WBC 18.24 K/uL (4.8-10.8) H 05/18/21 Hgb 9.4 g/dL (12.0-16.0) L 05/18/21 Hct 30.8 % (37-47) L 05/18/21 MCV 88.3 fL (80-100) 05/18/21 MCH 26.9 pg (25-34) 05/18/21 MCHC 30.5 g/dL (32-36) L 05/18/21 RDW Standard Deviation 60.5 fL (36.4-46.3) H 05/18/21 RDW Coefficient of Variation 18.9 % (11.5-14.5) H 05/18/21 Plt Count 252 K/uL (130-400) 05/18/21 MPV 10.4 fL (7.4-10.4) 05/18/21 Nucleated Red Blood Cells % (auto) 0.1 % 05/18/21 Nucleated RBC Absolute Count (auto) 0.02 K/uL (0-0) H 05/18/21 ANC 15.05 K/uL (1.4-6.5) H 05/18/21 ALC 1.59 K/uL (1.2-3.4) 05/18/21 Neutrophils % (Manual) 82.5 % 05/18/21 Lymphocytes % (Manual) 8.7 % 05/18/21 Monocytes % (Manual) 7.0 % 05/18/21 Eosinophils % (Manual) 0.9 % 05/18/21 Myelocytes % (Manual) 0.9 % 05/18/21 Neutrophils # (Manual) 15.05 K/uL (1.4-6.5) H 05/18/21 Lymphocytes # (Manual) 1.59 K/uL (1.2-3.4) 05/18/21 Monocytes # (Manual) 1.28 K/uL (0.11-0.59) H 05/18/21 Eosinophils # (Manual) 0.16 K/uL (0-0.5) 05/18/21 Myelocytes # (Manual) 0.16 K/uL (0-0) H 05/18/21 Polychromasia 1+ 05/18/21 Hypochromasia Present 05/18/21 Na 138 mmol/L (136-145) 05/18/21 K 3.8 mmol/L (3.5-5.1) 05/18/21 Cl 108 mmol/L (98-107) H 05/18/21 CO2 24 mmol/L (21-32) 05/18/21 Anion Gap 6 (3-11) 05/18/21 BUN 7 mg/dl (6-23) 05/18/21 Creatinine 0.67 mg/dl (0.6-1.2) 05/18/21 Estimated GFR ( Amer) 109.2 ml/min 05/18/21 Estimated GFR (Non-Af Amer) 94.2 ml/min 05/18/21 BUN/Creatinine Ratio 10.4 (10-20) 05/18/21 Glu 71 mg/dl (70-99(Fasting)) 05/18/21 Ca 6.9 mg/dl (8.5-10.1) L 05/18/21 Phosphorus Level 2.3 mg/dl (2.5-4.9) L 05/18/21 Total Bilirubin 3.8 mg/dl (0.2-1.0) H 05/18/21 Direct Bilirubin 2.9 mg/dl (0-0.2) H 05/18/21 AST 52 U/L (13-39) H 05/18/21 ALT 46 U/L (7-52) 05/18/21 Alkaline Phosphatase 219 U/L (34-104) H 05/18/21 TP 6.0 gm/dl (6.0-8.3) 05/18/21 Albumin 2.3 gm/dl (3.4-5.0) L 05/18/21 Mg 2.1 mg/dl (1.7-2.4) 05/18/21 05:13 05/18/21 Calcium Level 6.9 mg/dl (8.5-10.1) L 05/18/21 05:13 05/18/21 Microbiology 05/14/21 18:41 Aerobic Blood Culture - Final Blood Staph aureus MRSA Anaerobic Blood Culture - Final Staph aureus MRSA 05/14/21 18:31 Aerobic Blood Culture - Preliminary Blood Staph aureus MRSA Anaerobic Blood Culture - Final Diagnostic Findings (Past 24 Hours) Chest X-Ray 05/17/21 07:00 XR chest 1V portable CLINICAL HISTORY: Dyspnea TECHNIQUE: Single frontal radiograph of the chest was obtained. Comparison: Comparison is made to chest one view 05/15/2021 FINDINGS: Lines and tubes are stable. The cardiomediastinal silhouette is obscured. Multifocal airspace opacities are seen. No pneumothorax is seen, pleural effusions cannot be excluded. IMPRESSION: Interval stability of lines and tubes. Multifocal airspace opacities may represent atelectasis, pneumonia, and/or aspiration. Small bilateral pleural effusions are likely. ACT 112: Negative or not required by law. Electronically signed by: Johny Ferrer M.D. 05/17/2021 9:42 AM I & O Totals 24 Hours 05/17/21 05/18/21 05/19/21 06:59 06:59 06:59 Intake Total 4786.733 / 4786.733 3352.213 / 3352.213 1054.167 / 1054.167 Output Total 3350 / 3350 2770 / 2770 Balance 1436.733 / 1436.733 582.213 / 683.659 1592.167 / 1054.167 Cumulative 05/14/21 17:44 thru 05/18/21 09:15 Intake Total 53763.468 Output Total 8318 Balance 29097.468 RT Ventilator Mngmt (Last Documented) Ventilator Ordered Settings Ventilator Support Mode CPAP 05/17/21 07:24 Respiratory Rate 14 05/18/21 05:00 Ventilator Tidal Volume 350 05/17/21 07:20 Setting Minute Ventilation 8.7 05/17/21 07:24 Ventilator Positive Pressure 10 05/17/21 07:24 Support Setting Positive End Expiratory 5 05/17/21 07:24 Pressure Fraction of Inspired Oxygen 40 05/17/21 08:00 Machine Comment weaned to 35% 05/17/21 07:20 Ventilator - PT Measurements Respiratory Rate 14 Exhaled Tidal Volume 380 Minute Ventilation 8.7 Peak Inspiratory Airway 16 Pressure Mean Airway Pressure 24 Plateau Pressure 15 Respiratory Cycle Inspiratory: 1:2 Expiratory Ratio Inspiratory Phase Time 0.65 End-Tidal CO2 24 Static Lung Compliance 35.00 Dynamic Lung Compliance 34.55 Normal Static Lung Compliance 48.00 Patient Measurements Comment changes post ABG. SRaimundo KOWALSKI approved Coding Level of Care Code 61488 Subseq [facility] 3 Diagnoses Severe sepsis with septic shock A41.9; R65.21 Poorly controlled diabetes mellitus E11.65 Osteomyelitis M86.9 Lactic acidosis E87.2 Anemia D64.9 Hyponatremia E87.1
[2021-05-18] MEDS ORDERED: KETAMINE HCL 10 MG in SODIUM CHLORIDE 0.9% 50 ML IV ONE (10:15)
[2021-05-18] MEDS ORDERED: POLYETHYLENE (MIRALAX) 17 GM PACK PO PRN (10:30)
[2021-05-18] MEDS: ASPIRIN 81 MG CHEW NG SCH (10:31)
[2021-05-18] MEDS: MULTI VIT W/MINERALS LIQUID 15 ML UDP NG SCH (10:31)
[2021-05-18] MEDS: GABAPENTIN 250 MG/5 ML 470 ML BTL NG SCH (10:31)
[2021-05-18] MEDS: LANSOPRAZOLE 30 MG SOLTAB NG SCH (10:31)
[2021-05-18] MEDS: DOCUSATE SODIUM SYRUP 100 MG/10 ML UDC GT SCH (10:31)
[2021-05-18] MEDS: POLYETHYLENE (MIRALAX) 17 GM PACK GT SCH (10:32)
--- NOTE | 2021-05-18 11:08 | Pharmacy Report ---
Pharmacy Glycemic Short Note 2 - Date of Service May 18, 2021 - Glycemic Short BSG Results (Last 24 hours): 05/17/21 05/17/21 05/17/21 11:14 12:02 15:50 Glucose POC Glucose 150 H 149 H 125 H 05/17/21 05/17/21 05/18/21 19:35 23:55 04:12 Glucose POC Glucose 111 H 90 89 05/18/21 05/18/21 05:13 07:34 Glucose 71 POC Glucose 77 OUTPATIENT ANTIDIABETIC REGIMEN: * Basaglar 46 units SQ qAM * Novolog sliding scale * HbA1C = 10.3% (05/15/21) ASSESSMENT: 05/18 * BSGs well controlled over last 24 hrs * Fasting BSG in 70s this AM w/ 10 units basal on board. Will hold basal dose this AM. Diet is being advanced from NPO to full liquids today. Will add scaled dose of basal for this evening should pt tolerate diet and BSGs begin to climb. * Continue Novolog doses as ordered and follow post-prandial trends today 05/17 * BSGs well controlled over last 24 hrs * Patient was extubated thus AM, however will likely remain NPO today. No need for pressor support. * Fasting BSGs in 120-150's with 10 units basal on board from yesterday, and only requiring occasional correctional insulin for BSGs > 140 * Will continue similar basal insulin dose for now. Once diet is advanced, basa l needs may increase (outpt basal insulin dose much greater than what is currently ordered) * Will continue with Novolog Q 4 hrs using "severe" stress doses (pt has demonstrated need for high rapid acting insulin doses on prior admissions) 05/16 * Patient was initiated on insulin infusion yesterday around noon due to two consecutive BSGs > 200 mg/dL. Insulin infusion was discontinued yesterday evening due to BSGs < 140 mg/dL. * q4 checks started after this and overnight BSGs remained < 140 mg/dL. * Will currently continue with q4 checks of BSGs with weight-based stress of 3 CF. * Patient remains NPO and intubated (sedated with propofol). * Reorder Lantus when BSGs trend above 160 mg/dL. Plan for 10 units. PLAN FOR INPATIENT GLYCEMIC CONTROL: * Hold outpatient oral diabetes medications * Basal insulin * Lantus 0 units this AM, will give 5 units this PM is BSG > 160 * Bolus insulin * NovoLog per scale ACHS and at 0200 * Goal Range: Low 110 mg/dL - High 140 mg/dL * Correction Factor: 20 mg/dL/unit * Nutritional / Prandial insulin per carb ratio of 1 unit per 8 grams CHO consumed
[2021-05-18] MEDS: ENOXAPARIN INJ 40 MG/0.4 ML SYR SQ SCH (12:26)
[2021-05-18] MEDS: METOPROLOL SUCC 50MG EXT REL TAB PO SCH ×2 (13:25→21:50)
[2021-05-18] MEDS: lisinopril 5 MG TAB PO SCH (13:27)
[2021-05-18] MEDS: FUROSEMIDE 20 MG TAB PO SCH (13:27)
[2021-05-18] MEDS: TOPIRAMATE 50 MG TAB PO SCH ×2 (13:28→21:48)
--- NOTE | 2021-05-18 14:16 | Pharmacy Report ---
Pharmacy Vanc AUC Short Note - Date of Service May 18, 2021 - Assessment & Plan Assessment * 60 year old F receiving VANCOMYCIN for treatment of MRSA bacteremia in the setting of sepsis secondary to L ankle osteomyelitis, ortho hardware. Patient is s/p L BKA performed 05/16. * Today is Day # 5 vancomycin therapy * Pertinent microbiologic data includes: BLCXs 2 of 2 growing MRSA from 05/14. No growth yet noted in BLCXs drawn 05/18. * ID has been consulted, recommended continue vancomycin IV for now. Suggested JUAN DAVID to r/o endocarditis. Human Resources Services Specialist recommended 2wks vancomycin from 1st set of neg blcx's if no vegetations on JUAN DAVID. However 4-6wk of therapy was recommended if vegetations present. * Renal fxn stable Plan Vancomycin * AUC/ELI is the preferred PK/PD target for vancomycin * AUC guided dosing is effective and associated with decreased risk of nephrotoxicity compared to traditional trough targets * Trough level of 16.7 mcg/mL is predicted to achieve target AUC/ELI of 400-600 mg/L.hr and may be associated with a 10 % risk of nephrotoxicity * Continue dose of 750 mg IV every 12 hours * Will repeat level in 2-3 days if therapy to continue. Pharmacy will continue to follow and will adjust dose/frequency as necessary. Thank you.
[2021-05-18] MEDS ORDERED: METOPROLOL TARTRATE 1 MG/ML VIAL IV STA (14:24)
[2021-05-18] MEDS: oxyCODONE HCL IR 5 MG TAB (IMMEDIATE RELEASE) PO PRN ×2 (14:36→22:11)
--- NOTE | 2021-05-18 16:00 | Hospitalist Progress Note ---
Date of Service May 18, 2021 Assessment & Plan (1) Severe sepsis: Plan: Secondary to infected wound/osteomyelitis of the left ankle Gram-positive bacteremia- MRSA Her blood pressure dropped while in the hospital and almost in septic shock She was transferred to ICU and was intubated Has been on intravenous Zosyn and vancomycin Blood culture is growing gram-positive cocci in clusters in 2 x 2 bottles- MRSAA ID on board Recommended JUAN DAVID to r/o any vegetation If JUAN DAVID normal, she will need 2 weeks of IV abx; but if positive, she will need 4-6 weeks pf IV Vanco Repeat blood cx pending Will place a Picc line once repeat cx showed no growth cardiology consult to eval for JUAN DAVID to r/o vegetation Continue monitor Severe anemia Secondary to sepsis Hemoglobin dropped to 6.7 Received 2 units of blood transfusion during hospital course Hgb 9.4 today Continue monitor CBC (2) Bone infection of left ankle: Plan: History of bimalleolar fracture of the ankle in March, Status post repair with hardware placement Has infection in the open wound and likely has osteomyelitis which is the source of sepsis S/P Left Below Knee Amputation(Left) performed by Dr Yo on 05/16/21 No Post op complication Continue PT/OT (3) Bimalleolar fracture of left ankle: Plan: As above (4) (HFpEF) heart failure with preserved ejection fraction: Plan: History of CHF as above Limiting use of IV fluid for sepsis PO lasix resumed (5) Diabetes mellitus, type 2: Plan: Diabetes seems to be uncontrolled Diabetic neuropathy Hemoglobin A1c noted to be high at 10.3 on 05/15/21 Pharmacy on board for glycemic management Continue Insulin Glargine and novolog sliding scale (6) Electrolyte imbalance: Plan: Has significant electrolyte imbalance including Stable CAD status post CABG Mild elevation of troponin Likely secondary to sepsis and a stress induced Doubt any ACS Plan: DVT prophylaxis on Lovenox subq CODE STATUS Full Admission and Anticipated Discharge Date Admission Date: May 14, 2021 Subjective Pt was seen and examined for for left postop BKA Lying in bed with no acute distress Pt was having phantom pain in her left lower extremity When patient realized that she had a BKA, she screamed and started to cried She is more awake and mental status improved Denies any chest pain, palpitation, dizziness and fever Review of Systems Review of Systems: All systems reviewed & are unremarkable except as noted in Subjective Physical Exam Physical Exam: General- No acute distress Head- atraumatic Eyes- PERRL, EOMI, ENT- oropharynx clear Neck- supple, no JVD Lungs- +Coarse BS Heart- regular rhythm; no murmur Abdomen- normal bowel sounds, soft, nontender Extremities- no calf tenderness, LBKA Neuro- alert, oriented x 3; PERRL, EOMI; no facial palsy; no dysarthria Skin- warm & dry Results & Data Results & Data ([facility]) Vital Signs (Past 12 Hours) Vital Signs Temp Pulse Resp BP Pulse Ox 05/18/21 14:36 110 H 05/18/21 12:00 37.3 C 120 H 13 163/100 H 97 05/18/21 11:00 37.1 C 116 H 11 L 168/95 H 96 05/18/21 10:00 37.0 C 105 H 21 161/93 H 97 05/18/21 09:00 37.1 C 113 H 15 146/89 H 96 05/18/21 08:00 37.3 C 120 H 30 H 161/101 H 96 05/18/21 07:00 37.2 C 114 H 17 156/98 H 97 05/18/21 05:17 149/93 H 05/18/21 05:00 37.3 C 112 H 14 143/99 H 90 05/18/21 04:37 159/98 H 05/18/21 04:01 163/104 H 05/18/21 04:00 37.2 C 106 H 14 98
[2021-05-18] MEDS ORDERED: ALTEPLASE, RECOMBINANT 1 MG/ML 2ML VIAL INSTIL ONE (16:30)
--- NOTE | 2021-05-18 16:37 | Cardiology Consultation ---
Date of Consultation May 18, 2021 Assessment & Plan (1) Severe sepsis: (2) Osteomyelitis: (3) Leukocytosis: (4) Coronary artery disease: (5) Hypertension: Patient is a 60-year-old female currently recovering from acute septic shock secondary to osteomyelitis. JUAN DAVID recommended as part of ongoing management of antibiotic therapy by infectious disease Currently hemodynamically fragile and on antibiotic therapy. Echocardiogram without gross vegetation on 05/16/2021 Once heart rate and blood pressure and clinical status stabilized will refer for transesophageal echocardiogram. We will keep n.p.o. after midnight tonight in case of prompt response to oral medical therapies today Emergent procedure not indicated History of Present Illness Reason for Consultation: Evaluate for transesophageal echocardiogram Requesting Physician: Dr Herrera Attending Physician: Ezekiel Herrera MD History of Present Illness Patient is a 61-year-old female admitted with septic shock and wound dehiscence of surgical site of recent ankle fracture repair. Blood cultures growing MRSA. Patient underwent BKA and is currently recovering from surgical procedure in the intensive care unit. Underlying medical issues include 1. Coronary artery disease status post coronary bypass grafting for multivessel disease disease 2013, with left internal mammary artery graft to LAD, saphenous vein graft to the RCA, saphenous vein graft obtuse marginal, saphenous vein graft to diagonal 2. Hypertension with diastolic heart failure 3. Intermittent left bundle branch block 4. Atherosclerotic carotid artery disease 5. Diabetes mellitus type 2 poorly controlled 6. Chronic tobacco use 7. Psycho affective disorder Patient referred to consider transesophageal echocardiogram to aid in management of antibiotic therapy Patient today answering questions but just now beginning oral medications and becoming cognizant of recent events. Heart rate and blood pressure elevated Currently afebrile Denies any dysphagia issues no recent bleeding difficulties Allergies Allergy/AdvReac Type Severity Reaction Status Date / Time latex Allergy Mild Rash Verified 05/14/21 21:26 aspirin Allergy Unknown UNKNOWN Verified 05/14/21 21:26 oxycodone AdvReac Intermediate HALLUCINATI Verified 05/14/21 21:26 ONS Home Medications Medication Instructions Recorded Confirmed Type atorvastatin 80 mg tablet 80 mg PO HS 03/16/21 05/14/21 History clopidogrel 75 mg tablet 75 mg PO DAILY 03/16/21 05/14/21 History donepezil 5 mg tablet 5 mg PO HS 03/16/21 05/14/21 History duloxetine 30 mg capsule,delayed 30 mg PO QAM 03/16/21 05/14/21 History release duloxetine 60 mg capsule,delayed 60 mg PO QAM 03/16/21 05/14/21 History release furosemide 20 mg tablet 60 mg PO DAILY 03/16/21 05/14/21 History lisinopril 10 mg tablet 10 mg PO DAILY 03/16/21 05/14/21 History metoprolol succinate 50 mg 100 mg PO QAM 03/16/21 05/14/21 History tablet,extended release 24 hr topiramate 50 mg tablet 50 mg PO BID 03/16/21 05/14/21 History acetaminophen 500 mg tablet 500 mg PO Q4 #100 tab 03/29/21 05/14/21 Rx (Tylenol Extra Strength) bisacodyl 10 mg rectal suppository 10 mg TN DAILY PRN #50 ea 03/29/21 05/14/21 Rx docusate sodium 100 mg capsule 100 mg PO BID PRN #60 cap 03/29/21 05/14/21 Rx magnesium hydroxide 400 mg/5 mL 30 ml PO Q6H PRN #300 ml 03/29/21 05/14/21 Rx oral suspension (Milk of Magnesia) magnesium oxide 400 mg (241.3 mg 400 mg PO QAM #30 tab 03/29/21 05/14/21 Rx magnesium) tablet multivitamin with folic acid 400 1 tab PO QAM #30 tab 03/29/21 05/14/21 Rx mcg tablet (Daily-Hardik (with folic acid)) cephalexin 500 mg capsule 500 mg PO Q6 30 Days #120 cap 05/13/21 05/14/21 Rx aspirin 81 mg tablet,delayed 81 mg PO DAILY 05/14/21 05/14/21 History release gabapentin 300 mg capsule 300 mg PO QAM 05/14/21 05/14/21 History gabapentin 300 mg capsule 600 mg PO HS 05/14/21 05/14/21 History insulin aspart U-100 100 unit/mL 0 unit SUBCUT TID 05/14/21 05/14/21 History (3 mL) subcutaneous pen (Novolog Flexpen U-100 Insulin aspart) insulin glargine 100 unit/mL (3 46 unit SUBCUT QAM 05/14/21 05/14/21 History mL) subcutaneous pen (Basaglar KwikPen U-100 Insulin) metoprolol succinate 50 mg 50 mg PO QPM 05/14/21 05/14/21 History tablet,extended release 24 hr nitroglycerin 0.4 mg sublingual 0.4 mg SUBLINGUAL .PRN/UD PRN 05/14/21 05/14/21 History tablet omeprazole 20 mg capsule,delayed 20 mg PO DAILY 05/14/21 05/14/21 History release polyethylene glycol 3350 17 gram 17 g PO DAILY 05/14/21 05/14/21 History oral powder packet (Miralax) sennosides 8.6 mg tablet (Senokot) 17.2 mg PO HS PRN 05/14/21 05/14/21 History tramadol 50 mg tablet 50 mg PO Q6H PRN 05/14/21 05/14/21 History Patient History Medical History Anxiety Bone infection of left ankle Carpal tunnel syndrome, left Chronic congestive heart failure with left ventricular diastolic dysfunction Coronary artery disease Diabetes mellitus, type 2 Psychotic disorder Tobacco use disorder Ulnar neuropathy at elbow of left upper extremity Surgical History Status post cholecystectomy Status post coronary artery bypass grafting Status post hysterectomy Status post ORIF of fracture of ankle R, 2017 Family History Other Diabetes Heart disease Social History Smoking Status: Former smoker Tobacco Type: Cigarettes packs per day: 1; Years Smoked: 35; Smoking End Date: 04/06; Second Hand Exposure: Yes; Hx Alcohol Use: No Hx Substance Use: No Preferred Language: Kinyarwanda Communication Ability: Unable Drafter Commercial Required: No Beliefs That Will Affect Care: Religion marital status: Current Living Situation: Alone Other Information That Helps Us Care for You: No Feels Safe at Home: Yes Safety Concerns: Feels Safe At This Time Assistive Devices: Denture - Upper and Oxygen - Continuous Review of Systems Review of Systems: All systems reviewed & are unremarkable except as noted in HPI & below Physical Exam Constitutional: + ill appearing Eyes: PERRL, conjunctivae normal, anicteric sclerae ENMT: external ear and nose normal, oropharynx normal Neck: trachea midline, no thyromegaly Respiratory: Auscultation: + diminished lung sounds Cardiovascular: Rate/Rhythm: regular rhythm and + tachycardic Gastrointestinal (Abdomen): normal bowel sounds, soft, nontender, no hepatosplenomegaly Results & Data ([facility]) Vital Signs (Past 12 Hours) Vital Signs Temp Pulse Resp BP Pulse Ox 05/18/21 14:36 110 H 05/18/21 12:00 37.3 C 120 H 13 163/100 H 97 05/18/21 11:00 37.1 C 116 H 11 L 168/95 H 96 05/18/21 10:00 37.0 C 105 H 21 161/93 H 97 05/18/21 09:00 37.1 C 113 H 15 146/89 H 96 05/18/21 08:00 37.3 C 120 H 30 H 161/101 H 96 05/18/21 07:00 37.2 C 114 H 17 156/98 H 97 05/18/21 05:17 149/93 H 05/18/21 05:00 37.3 C 112 H 14 143/99 H 90 05/18/21 04:37 159/98 H Laboratory Results Laboratory Results - last 24 hr 05/15/21 05/17/21 05/17/21 10:47 19:35 23:55 WBC RBC Hgb Hct MCV MCH MCHC RDW Std Deviation RDW Coeff of Fabio Plt Count MPV Absolute Nucleated RBC Nucleated RBC % (auto) Neutrophils % (Manual) Lymphocytes % (Manual) Monocytes % (Manual) Eosinophils % (Manual) Myelocytes % (Man) Neutrophils # (Manual) Total Absolute Neuts Lymphocytes # (Manual) Total Abs Lymphocytes Monocytes # (Manual) Eosinophils # (Manual) Myelocytes # (Manual) Polychromasia Hypochromasia Sodium Potassium Chloride Carbon Dioxide Anion Gap BUN Creatinine Est Cr Clr Drug Dosing Est GFR ( Amer) Est GFR (Non-Af Amer) BUN/Creatinine Ratio Glucose POC Glucose 111 H 90 Calcium Phosphorus Magnesium Total Bilirubin Direct Bilirubin AST ALT Alkaline Phosphatase Total Protein Albumin Vancomycin Trough Crossmatch See Detail 05/18/21 05/18/21 05/18/21 04:12 05:13 05:13 WBC 18.24 H RBC 3.49 L Hgb 9.4 L Hct 30.8 L MCV 88.3 MCH 26.9 MCHC 30.5 L RDW Std Deviation 60.5 H RDW Coeff of Fabio 18.9 H Plt Count 252 MPV 10.4 Absolute Nucleated RBC 0.02 H Nucleated RBC % (auto) 0.1 Neutrophils % (Manual) 82.5 Lymphocytes % (Manual) 8.7 Monocytes % (Manual) 7.0 Eosinophils % (Manual) 0.9 Myelocytes % (Man) 0.9 Neutrophils # (Manual) 15.05 H Total Absolute Neuts 15.05 H Lymphocytes # (Manual) 1.59 Total Abs Lymphocytes 1.59 Monocytes # (Manual) 1.28 H Eosinophils # (Manual) 0.16 Myelocytes # (Manual) 0.16 H Polychromasia 1+ Hypochromasia Present Sodium 138 Potassium 3.8 Chloride 108 H Carbon Dioxide 24 Anion Gap 6 BUN 7 Creatinine 0.67 Est Cr Clr Drug Dosing 78.6 Est GFR ( Amer) 109.2 Est GFR (Non-Af Amer) 94.2 BUN/Creatinine Ratio 10.4 Glucose 71 POC Glucose 89 Calcium 6.9 L Phosphorus 2.3 L Magnesium 2.1 Total Bilirubin 3.8 H D Direct Bilirubin 2.9 H AST 52 H ALT 46 Alkaline Phosphatase 219 H Total Protein 6.0 Albumin 2.3 L Vancomycin Trough Crossmatch 05/18/21 05/18/21 05/18/21 07:25 07:34 11:45 WBC RBC Hgb Hct MCV MCH MCHC RDW Std Deviation RDW Coeff of Fabio Plt Count MPV Absolute Nucleated RBC Nucleated RBC % (auto) Neutrophils % (Manual) Lymphocytes % (Manual) Monocytes % (Manual) Eosinophils % (Manual) Myelocytes % (Man) Neutrophils # (Manual) Total Absolute Neuts Lymphocytes # (Manual) Total Abs Lymphocytes Monocytes # (Manual) Eosinophils # (Manual) Myelocytes # (Manual) Polychromasia Hypochromasia Sodium Potassium Chloride Carbon Dioxide Anion Gap BUN Creatinine Est Cr Clr Drug Dosing Est GFR ( Amer) Est GFR (Non-Af Amer) BUN/Creatinine Ratio Glucose POC Glucose 77 86 Calcium Phosphorus Magnesium Total Bilirubin Direct Bilirubin AST ALT Alkaline Phosphatase Total Protein Albumin Vancomycin Trough 16.7 Crossmatch 05/18/21 16:46 WBC RBC Hgb Hct MCV MCH MCHC RDW Std Deviation RDW Coeff of Fabio Plt Count MPV Absolute Nucleated RBC Nucleated RBC % (auto) Neutrophils % (Manual) Lymphocytes % (Manual) Monocytes % (Manual) Eosinophils % (Manual) Myelocytes % (Man) Neutrophils # (Manual) Total Absolute Neuts Lymphocytes # (Manual) Total Abs Lymphocytes Monocytes # (Manual) Eosinophils # (Manual) Myelocytes # (Manual) Polychromasia Hypochromasia Sodium Potassium Chloride Carbon Dioxide Anion Gap BUN Creatinine Est Cr Clr Drug Dosing Est GFR ( Amer) Est GFR (Non-Af Amer) BUN/Creatinine Ratio Glucose POC Glucose Pending Calcium Phosphorus Magnesium Total Bilirubin Direct Bilirubin AST ALT Alkaline Phosphatase Total Protein Albumin Vancomycin Trough Crossmatch Diagnostic Findings Echocardiogram 05/16/2021, technically limited Left ventricle is mildly dilated left ventricular systolic function is mildly reduced EF 40-45% There is moderate to severe mitral insufficiency and trace tricuspid insufficiency (1) Leukocytosis Leukocytosis type: unspecified Qualified Code(s): D72.829 - Elevated white blood cell count, unspecified
[2021-05-18] MEDS: INSULIN GLARGINE SOLOSTAR 100 UNITS/ML 3 ML PEN SQ SCH (21:25)
[2021-05-18] MEDS: GABAPENTIN 600 MG TAB PO SCH (21:48)
[2021-05-18] MEDS: ATORVASTATIN 40 MG TAB PO SCH (21:48)
[2021-05-18] MEDS: DOCUSATE SODIUM 100 MG CAP PO SCH (21:49)
[2021-05-18] MEDS: DONEPEZIL HCL 5 MG TAB PO SCH (22:20)
[2021-05-19] MEDS ORDERED: INSULIN ASPART PER UNIT SC ONE (02:00)
[2021-05-19] MEDS: oxyCODONE HCL IR 5 MG TAB (IMMEDIATE RELEASE) PO PRN ×2 (03:43→13:58)
[2021-05-19 05:08] LABS: Hematocrit (blood only) 27.9 % (37-47); Hemoglobin 8.9 g/dL (12.0-16.0); Mean Corpuscular Hemoglobin 27.9 pg (25-34); Mean Corpuscular Hgb Conc 31.9 g/dL (32-36); Mean Corpuscular Volume 87.5 fL (80-100); Mean Platelet Volume 9.8 fL (7.4-10.4); Platelet Count 276 K/uL (130-400); RDW Coefficient of Variation 18.9 % (11.5-14.5); RDW Standard Deviation 60.2 fL (36.4-46.3); Red Blood Count 3.19 M/uL (4.2-5.4); White Blood Count 16.62 K/uL (4.8-10.8)
[2021-05-19 05:40] LABS: BUN Creatinine Ratio 12.3 (10-20); Calcium 7.4 mg/dl (8.5-10.1); Est GFR (African American) 110.3 ml/min; Est GFR (Non-African American) 95.2 ml/min; Magnesium 1.9 mg/dl (1.7-2.4); Phosphorus 2.3 mg/dl (2.5-4.9); Potassium 4.1 mmol/L (3.5-5.1)
[2021-05-19] MEDS: ICU ELECTROLYTE REPLACEMENT PROTOCOL SCH (05:44)
[2021-05-19] MEDS ORDERED: SODIUM PHOSPHATE 3 MMOL/1 ML INFUSION IV STA (05:46)
[2021-05-19] MEDS ORDERED: INSULIN ASPART PER UNIT SC SCH (06:00)
[2021-05-19] MEDS ORDERED: SODIUM PHOSPHATE 15 MMOL in SODIUM CHLORIDE 0.9% 250 ML IV ONE (06:15)
[2021-05-19] MEDS ORDERED: ASPIRIN 81 MG CHEW PO SCH (09:00)
[2021-05-19] MEDS: ACETAMINOPHEN 1,000 MG/100 ML VIAL IV PRN (09:18)
[2021-05-19] MEDS: VANCOMYCIN HCL 750 MG in SODIUM CHLORIDE 0.9% 250 ML IV SCH ×2 (09:20→20:02)
[2021-05-19] MEDS: MAGNESIUM SULFATE / D5W 1 GM/100 ML BAG IV SCH ×2 (09:21→10:45)
[2021-05-19] MEDS: ENOXAPARIN INJ 40 MG/0.4 ML SYR SQ SCH ×2 (09:27→09:57)
[2021-05-19] MEDS: CLOPIDOGREL BISULFATE 75 MG TAB PO SCH (09:28)
[2021-05-19] MEDS: DOCUSATE SODIUM 100 MG CAP PO SCH ×2 (09:29→20:04)
[2021-05-19] MEDS: LANSOPRAZOLE 30 MG SOLTAB PO SCH ×2 (09:29→09:58)
[2021-05-19] MEDS: DULoxetine HCL 30 MG CAP PO SCH (09:29)
[2021-05-19] MEDS: MAGNESIUM OXIDE 400 MG TAB PO SCH (09:29)
[2021-05-19] MEDS: GABAPENTIN 300 MG CAP PO SCH (09:30)
[2021-05-19] MEDS: METOPROLOL SUCC 50MG EXT REL TAB PO SCH ×2 (09:32→20:07)
[2021-05-19] MEDS: MULTIVITAMIN TAB PO SCH (09:32)
[2021-05-19] MEDS: POLYETHYLENE (MIRALAX) 17 GM PACK PO SCH (09:38)
--- NOTE | 2021-05-19 10:10 | Cardiology Progress Note ---
Date of Service May 19, 2021 Assessment & Plan (1) Severe sepsis: (2) Osteomyelitis: (3) Leukocytosis: (4) Coronary artery disease: (5) Hypertension: Plan: Patient is a 60-year-old female currently recovering from acute septic shock secondary to osteomyelitis. JUAN DAVID recommended as part of ongoing management of antibiotic therapy by infectious disease Repeat transthoracic echocardiogram today reveals: A 1.3 x 0.6 cm lesion present on the atrial asperct of the anterior mitral valve leaflet. 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 Moderate mitral regurgitation with a posteriorly directed jet. Recommend 6 weeks of abx as per ID. No further need for JUAN DAVID now that lesion has been visualized. Admission and Anticipated Discharge Date Admission Date: May 14, 2021 Subjective Pt seen and examined, chart reviewed and case discussed with ICU team. States that she's in a lot of LE pain today. Denies cp, sob, palpitations. tele reviewed: sinus rhythm/tachycardia without arrhythmia Review of Systems Review of Systems: All systems reviewed & are unremarkable except as noted in HPI & below Physical Exam Physical Exam: General: Awake, alert and oriented x 3. No acute distress. HEENT: Normocephalic, atraumatic. Pupils equal, round and reactive to light and accommodation. Extraocular muscles are intact. Anicteric sclera. Moist mucous membranes. Neck: No JVD. No bruit. Cardiovascular: Regular. Positive S-4. Normal S-1 and S-2. No S-3. 3/6 mid to late systolic ejection murmur, greatest at the right sternal border, second intercostal space with radiation to the bilateral carotids. No rubs. Pulmonary: Clear to auscultation bilaterally. No rales, rhonchi, or wheezing. Abdomen: Bowel sounds x 4, soft. No rebound, guarding or tenderness. No organomegaly. Extremities: L BKA bandaged Skin: Warm and dry. Results & Data ([facility]) Vital Signs (Past 12 Hours) Vital Signs Temp Pulse Resp BP Pulse Ox 05/19/21 08:00 37.7 C H 89 18 98 05/19/21 07:00 37.7 C H 88 19 97 05/19/21 06:00 37.6 C H 90 16 159/93 H 98 05/19/21 05:00 37.7 C H 90 19 159/86 H 97 05/19/21 04:00 37.8 C H 94 H 18 164/100 H 97 05/19/21 03:39 37.8 C H 94 H 18 167/95 H 97 05/19/21 03:00 37.7 C H 95 H 15 97 05/19/21 02:05 37.7 C H 92 H 19 176/92 H 97 05/19/21 02:00 37.7 C H 92 H 15 96 05/19/21 01:00 37.8 C H 94 H 19 166/91 H 98 05/19/21 00:02 37.9 C H 102 H 12 158/115 H 98 05/19/21 00:00 37.9 C H 104 H 24 168/121 H 99 05/18/21 23:23 38.0 C H 101 H 20 161/98 H 98 05/18/21 23:00 38.1 C H 101 H 16 94 (1) Leukocytosis Leukocytosis type: unspecified Qualified Code(s): D72.829 - Elevated white blood cell count, unspecified
--- NOTE | 2021-05-19 10:20 | Progress Notes ---
DATE OF SERVICE: 05/19/2021. SUBJECTIVE: A 60-year-old female with multiple medical comorbidities, now 3 days out from the left l eg below-knee amputation for infection, status post ankle fracture. She is coming along quite well f rom a medical standpoint. She is extubated and looks pretty comfortable from that standpoint. She do es report quite a bit of leg pain. No other real complaints. OBJECTIVE: VITAL SIGNS: Temperature 37.7. Vital signs are stable. GENERAL: Shows a pleasant, elderly female. She is lying in bed. She is complaining of leg pain. EXTREMITIES: Examination of the left leg reveals the dressing to be clean, dry and intact. There is no drainage. LABORATORY DATA: Hemoglobin 8.9. Hematocrit 27.9. White cell count improved at 16.62. Electrolyte s are stable. ASSESSMENT: A 60-year-old white female with multiple medical comorbidities, admitted with sepsis wit hin an infected left leg, now 3 days out from below-knee amputation. She has made significant improv ements. She is off the ventilator and looks to be breathing comfortably. She is having some left le g pain, which is not too unexpected. Dressing is clean, dry and in place. PLAN: From the orthopedic standpoint, we are going to leave this bandage on for 2 weeks and let the wound heal. We will likely take this off in 2-3 weeks unless it gets soiled. We will begin PT and O T just for mobilization purposes. Elevate her leg as much as possible. The pain control as per the primary care service. She is back on her Plavix. I need to see her back somewhere between 2 and 3 w eeks out from surgery date. Any orthopedic questions can be directed to me at [phone]. There i s really not much to do from her leg standpoint, just leave the bandage on. If it becomes soiled, pl ease let me know and we will manage that. Job ID: [id number]
[2021-05-19] MEDS: FUROSEMIDE 20 MG TAB PO SCH (10:30)
[2021-05-19] MEDS: TOPIRAMATE 50 MG TAB PO SCH ×2 (10:30→20:10)
[2021-05-19] MEDS: lisinopril 5 MG TAB PO SCH (10:31)
--- NOTE | 2021-05-19 11:01 | Hospitalist Progress Note ---
Date of Service May 19, 2021 Assessment & Plan (1) Severe sepsis: Plan: Secondary to infected wound/osteomyelitis of the left ankle Gram-positive bacteremia- MRSA Her blood pressure dropped while in the hospital and almost in septic shock She was transferred to ICU and was intubated Has been on intravenous Zosyn and vancomycin Blood culture is growing gram-positive cocci in clusters in 2 x 2 bottles- MRSA WBC trending down ID on board Recommended JUAN DAVID to r/o any vegetation If JUAN DAVID normal, she will need 2 weeks of IV abx; but if positive, she will need 4-6 weeks pf IV Vanco Repeat blood cx no growth Case discussed with cardiology about JUAN DAVID Repeat echo this morning showed 1.3 x 0.6 cm lesion present on the atrial aspect of the anterior mitral valve leaflet. 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 Patient will need 6 weeks course of IV antibiotic as per ID Will place a Picc line once repeat cx showed no growth Continue monitor Severe anemia Secondary to sepsis Hemoglobin dropped to 6.7 Received 2 units of blood transfusion during hospital course Hgb 8.9 today Continue monitor CBC (2) Bone infection of left ankle: Plan: History of bimalleolar fracture of the ankle in March, Status post repair with hardware placement Has infection in the open wound and likely has osteomyelitis which is the source of sepsis S/P Left Below Knee Amputation(Left) performed by Dr Yo on 05/16/21 No Post op complication Continue PT/OT (3) Bimalleolar fracture of left ankle: Plan: As above (4) (HFpEF) heart failure with preserved ejection fraction: Plan: History of CHF as above Limiting use of IV fluid for sepsis PO lasix resumed (5) Diabetes mellitus, type 2: Plan: Diabetes seems to be uncontrolled Diabetic neuropathy Hemoglobin A1c noted to be high at 10.3 on 05/15/21 Pharmacy on board for glycemic management Continue Insulin Glargine and novolog sliding scale (6) Electrolyte imbalance: Plan: Has significant electrolyte imbalance including Electrolytes replaced CAD status post CABG Mild elevation of troponin Likely secondary to sepsis and a stress induced Doubt any ACS Stable Plan: DVT prophylaxis on Lovenox subq CODE STATUS Full Admission and Anticipated Discharge Date Admission Date: May 14, 2021 Subjective Pt was seen and examined for postop follow up and bacteremia Lying in bed with no acute distress Pt is more awake and smiling today Nurse said that she is having alot of pain from the L lower extremity Nurse said that last night after getting the Oxycodone, she seems to be confused denies any chest pain, palpitation, dizziness and fever Review of Systems Review of Systems: All systems reviewed & are unremarkable except as noted in Subjective Physical Exam Physical Exam: General- No acute distress Head- atraumatic Eyes- PERRL, EOMI, ENT- oropharynx clear Neck- supple, no JVD Lungs- +Coarse BS Heart- regular rhythm; no murmur Abdomen- normal bowel sounds, soft, nontender Extremities- no calf tenderness, LBKA Neuro- alert, oriented x 3; PERRL, EOMI; no facial palsy; no dysarthria Skin- warm & dry Results & Data Results & Data ([facility]) Vital Signs (Past 12 Hours) Vital Signs Temp Pulse Resp BP Pulse Ox 05/19/21 08:00 37.7 C H 89 18 98 05/19/21 07:00 37.7 C H 88 19 97 05/19/21 06:00 37.6 C H 90 16 159/93 H 98 05/19/21 05:00 37.7 C H 90 19 159/86 H 97 05/19/21 04:00 37.8 C H 94 H 18 164/100 H 97 05/19/21 03:39 37.8 C H 94 H 18 167/95 H 97 05/19/21 03:00 37.7 C H 95 H 15 97 05/19/21 02:05 37.7 C H 92 H 19 176/92 H 97 05/19/21 02:00 37.7 C H 92 H 15 96 05/19/21 01:00 37.8 C H 94 H 19 166/91 H 98 05/19/21 00:02 37.9 C H 102 H 12 158/115 H 98 05/19/21 00:00 37.9 C H 104 H 24 168/121 H 99 05/18/21 23:23 38.0 C H 101 H 20 161/98 H 98
[2021-05-19] MEDS ORDERED: INSULIN GLARGINE SOLOSTAR 100 UNITS/ML 3 ML PEN SQ SCH (11:30)
--- NOTE | 2021-05-19 11:57 | Pharmacy Report ---
Pharmacy Glycemic Short Note 2 - Date of Service May 19, 2021 - Glycemic Short BSG Results (Last 24 hours): 05/18/21 05/18/21 05/18/21 16:46 16:52 21:21 Glucose POC Glucose 181 H 174 H 174 H 05/19/21 05/19/21 05/19/21 01:29 04:54 06:14 Glucose 131 H POC Glucose 182 H 130 H 05/19/21 08:33 Glucose POC Glucose 127 H OUTPATIENT ANTIDIABETIC REGIMEN: * Basaglar 46 units SQ qAM * Novolog sliding scale * HbA1C = 10.3% (05/15/21) ASSESSMENT: 05/19 * BSGs well controlled over last 24 hrs * BSGs did trend up following resumption of diet yesterday. Likely due in part to holding basal insulin dose in the AM for BSGs in the 70s. * Patient was initially NPO this AM for JUAN DAVID but this has been cancelled and diet ordered to resume w/ lunch. Will give Lantus at that time. * Fasting BSG 130 this AM with 5 units basal on board and following receipt of 5 units correctional insulin from HS and 0200 BSG checks. 05/18 * BSGs well controlled over last 24 hrs * Fasting BSG in 70s this AM w/ 10 units basal on board. Will hold basal dose this AM. Diet is being advanced from NPO to full liquids today. Will add scaled dose of basal for this evening should pt tolerate diet and BSGs begin to climb. * Continue Novolog doses as ordered and follow post-prandial trends today 05/17 * BSGs well controlled over last 24 hrs * Patient was extubated thus AM, however will likely remain NPO today. No need for pressor support. * Fasting BSGs in 120-150's with 10 units basal on board from yesterday, and only requiring occasional correctional insulin for BSGs > 140 * Will continue similar basal insulin dose for now. Once diet is advanced, basal needs may increase (outpt basal insulin dose much greater than what is currently ordered) * Will continue with Novolog Q 4 hrs using "severe" stress doses (pt has demonstrated need for high rapid acting insulin doses on prior admissions) 05/16 * Patient was initiated on insulin infusion yesterday around noon due to two consecutive BSGs > 200 mg/dL. Insulin infusion was discontinued yesterday evening due to BSGs < 140 mg/dL. * q4 checks started after this and overnight BSGs remained < 140 mg/dL. * Will currently continue with q4 checks of BSGs with weight-based stress of 3 CF. * Patient remains NPO and intubated (sedated with propofol). * Reorder Lantus when BSGs trend above 160 mg/dL. Plan for 10 units. PLAN FOR INPATIENT GLYCEMIC CONTROL: * Hold outpatient oral diabetes medications * Basal insulin * Lantus 10 units this AM, will give 5 units this PM is BSG > 160 * Bolus insulin * NovoLog per scale ACHS * Goal Range: Low 110 mg/dL - High 140 mg/dL * Correction Factor: 20 mg/dL/unit * Nutritional / Prandial insulin per carb ratio of 1 unit per 8 grams CHO consumed
[2021-05-19] MEDS: traMADol HCL 50 MG TABLET PO PRN ×2 (12:19→20:02)
[2021-05-19] MEDS: INSULIN ASPART PER UNIT SC SCH ×3 (12:40→20:07)
[2021-05-19] MEDS ORDERED: lisinopril 5 MG TAB PO ONE (17:32)
[2021-05-19] MEDS: ATORVASTATIN 40 MG TAB PO SCH (20:03)
[2021-05-19] MEDS: GABAPENTIN 600 MG TAB PO SCH (20:05)
[2021-05-19] MEDS: DONEPEZIL HCL 5 MG TAB PO SCH (20:05)
[2021-05-19] MEDS: INSULIN GLARGINE SOLOSTAR 100 UNITS/ML 3 ML PEN SQ SCH (20:08)
[2021-05-19] MEDS: ACETAMINOPHEN 500 MG TAB PO PRN (21:48)
[2021-05-20] MEDS ORDERED: Nursing to Pharmacy Communication SCH (02:15)
[2021-05-20] MEDS: traMADol HCL 50 MG TABLET PO PRN ×3 (04:05→17:36)
[2021-05-20 06:39] LABS: BUN Creatinine Ratio 11.6 (10-20); Calcium 7.9 mg/dl (8.5-10.1); Creatinine Clr Calc Pharmacy 76.3 ml/min; Est GFR (African American) 108.1 ml/min; Est GFR (Non-African American) 93.3 ml/min; Magnesium 2.3 mg/dl (1.7-2.4); Potassium 3.7 mmol/L (3.5-5.1)
[2021-05-20] MEDS: INSULIN ASPART PER UNIT SC SCH ×4 (08:09→21:58)
[2021-05-20] MEDS: ASPIRIN 81 MG ECTAB PO SCH (08:21)
[2021-05-20] MEDS: TOPIRAMATE 50 MG TAB PO SCH ×2 (08:22→22:34)
[2021-05-20] MEDS: MULTIVITAMIN TAB PO SCH (08:22)
[2021-05-20] MEDS: DOCUSATE SODIUM 100 MG CAP PO SCH ×2 (08:22→22:36)
[2021-05-20] MEDS: FUROSEMIDE 20 MG TAB PO SCH (08:22)
[2021-05-20] MEDS: ENOXAPARIN INJ 40 MG/0.4 ML SYR SQ SCH (08:23)
[2021-05-20] MEDS: METOPROLOL SUCC 50MG EXT REL TAB PO SCH ×2 (08:23→22:32)
[2021-05-20] MEDS: MAGNESIUM OXIDE 400 MG TAB PO SCH (08:23)
[2021-05-20] MEDS: LANSOPRAZOLE 30 MG SOLTAB PO SCH (08:23)
[2021-05-20] MEDS: DULoxetine HCL 30 MG CAP PO SCH (08:23)
[2021-05-20] MEDS: CLOPIDOGREL BISULFATE 75 MG TAB PO SCH (08:23)
[2021-05-20] MEDS: GABAPENTIN 300 MG CAP PO SCH (08:24)
[2021-05-20] MEDS: lisinopril 10 MG TAB PO SCH (08:24)
[2021-05-20] MEDS: VANCOMYCIN HCL 750 MG in SODIUM CHLORIDE 0.9% 250 ML IV SCH ×2 (08:26→21:11)
[2021-05-20] MEDS: oxyCODONE HCL IR 5 MG TAB (IMMEDIATE RELEASE) PO PRN ×3 (08:34→21:59)
[2021-05-20] MEDS: POLYETHYLENE (MIRALAX) 17 GM PACK PO SCH (08:35)
--- NOTE | 2021-05-20 20:22 | Hospitalist Progress Note ---
Date of Service May 20, 2021 Assessment & Plan (1) Severe sepsis: Plan: Secondary to infected wound/osteomyelitis of the left ankle Gram-positive bacteremia- MRSA Her blood pressure dropped while in the hospital and almost in septic shock She was transferred to ICU and was intubated Has been on intravenous Zosyn and vancomycin Blood culture is growing gram-positive cocci in clusters in 2 x 2 bottles- MRSA WBC continue trending down ID on board Recommended JUAN DAVID to r/o any vegetation If JUAN DAVID normal, she will need 2 weeks of IV abx; but if positive, she will need 4-6 weeks pf IV Vanco Repeat blood cx no growth Case discussed with cardiology about JUAN DAVID Repeat echo this morning showed 1.3 x 0.6 cm lesion present on the atrial aspect of the anterior mitral valve leaflet. 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 Patient will need 6 weeks course of IV antibiotic as per ID Will place a Picc line once repeat cx showed no growth Continue monitor Severe anemia Secondary to sepsis Hemoglobin dropped to 6.7 Received 2 units of blood transfusion during hospital course Hgb 9.4 today Continue monitor CBC (2) Bone infection of left ankle: Plan: History of bimalleolar fracture of the ankle in March, Status post repair with hardware placement Has infection in the open wound and likely has osteomyelitis which is the source of sepsis S/P Left Below Knee Amputation(Left) performed by Dr Yo on 05/16/21 No Post op complication Continue PT/OT (3) Bimalleolar fracture of left ankle: Plan: As above (4) (HFpEF) heart failure with preserved ejection fraction: Plan: History of CHF as above Limiting use of IV fluid for sepsis PO lasix resumed (5) Diabetes mellitus, type 2: Plan: Diabetes seems to be uncontrolled Diabetic neuropathy Hemoglobin A1c noted to be high at 10.3 on 05/15/21 Pharmacy on board for glycemic management Continue Insulin Glargine and novolog sliding scale (6) Electrolyte imbalance: Plan: Has significant electrolyte imbalance including Electrolytes replaced CAD status post CABG Mild elevation of troponin Likely secondary to sepsis and a stress induced Doubt any ACS Stable Plan: DVT prophylaxis on Lovenox subq CODE STATUS Full Admission and Anticipated Discharge Date Admission Date: May 14, 2021 Subjective Pt was seen and examined for postop follow up and bacteremia Lying in bed with no acute distress She was smilling today denies any chest pain, palpitation, dizziness and fever Review of Systems Review of Systems: All systems reviewed & are unremarkable except as noted in Subjective Physical Exam Physical Exam: General- No acute distress Head- atraumatic Eyes- PERRL, EOMI, ENT- oropharynx clear Neck- supple, no JVD Lungs- +Coarse BS Heart- regular rhythm; no murmur Abdomen- normal bowel sounds, soft, nontender Extremities- no calf tenderness, LBKA Neuro- alert, oriented x 3; PERRL, EOMI; no facial palsy; no dysarthria Skin- warm & dry Results & Data Results & Data ([facility]) Vital Signs (Past 12 Hours) Vital Signs Temp Pulse Pulse Resp BP Pulse Ox 05/20/21 15:38 89 05/20/21 15:37 36.7 C 87 19 168/91 H 98 05/20/21 11:00 36.6 C 82 16 170/91 H 97
[2021-05-20] MEDS ORDERED: NITROGLYCERIN SL 0.4 MG/TAB TAB SL STA (21:09)
[2021-05-20] MEDS: ATORVASTATIN 40 MG TAB PO SCH (21:23)
[2021-05-20 21:48] LABS: Partial Thromboplastin Ratio 1.1; Partial Thromboplastin Time 30.8 Seconds (21.0-31.0)
[2021-05-20] MEDS: INSULIN GLARGINE SOLOSTAR 100 UNITS/ML 3 ML PEN SQ SCH (21:59)
[2021-05-20] MEDS: GABAPENTIN 600 MG TAB PO SCH (22:33)
[2021-05-20] MEDS: DONEPEZIL HCL 5 MG TAB PO SCH (22:34)
[2021-05-20 22:38] LABS: Basophils # (auto) 0.04 K/uL (0-0.2); Basophils % (auto) 0.3 %; Eosinophils # (auto) 0.08 K/uL (0-0.5); Eosinophils % (auto) 0.5 %; Hematocrit (blood only) 30.9 % (37-47); Hemoglobin 9.4 g/dL (12.0-16.0); Immature Granulocytes # (auto) 0.23 K/uL (0.00-0.02); Immature Granulocytes % (auto) 1.5 %; Lymphocytes # (auto) 2.22 K/uL (1.2-3.4); Lymphocytes % (auto) 14.1 %; Mean Corpuscular Hemoglobin 27.6 pg (25-34); Mean Corpuscular Hgb Conc 30.4 g/dL (32-36); Mean Corpuscular Volume 90.9 fL (80-100); Mean Platelet Volume 9.7 fL (7.4-10.4); Monocytes # (auto) 1.81 K/uL (0.11-0.59); Monocytes % (auto) 11.5 %; Neutrophils # (auto) 11.31 K/uL (1.4-6.5); Neutrophils % (auto) 72.1 %; Platelet Count 418 K/uL (130-400); RDW Coefficient of Variation 19.9 % (11.5-14.5); RDW Standard Deviation 64.5 fL (36.4-46.3); White Blood Count 15.69 K/uL (4.8-10.8)
[2021-05-21] MEDS: traMADol HCL 50 MG TABLET PO PRN ×3 (01:10→17:07)
[2021-05-21] MEDS: oxyCODONE HCL IR 5 MG TAB (IMMEDIATE RELEASE) PO PRN ×5 (02:53→22:35)
[2021-05-21 06:51] LABS: Hematocrit (blood only) 29.9 % (37-47); Hemoglobin 9.1 g/dL (12.0-16.0); Mean Corpuscular Hemoglobin 27.6 pg (25-34); Mean Corpuscular Hgb Conc 30.4 g/dL (32-36); Mean Corpuscular Volume 90.6 fL (80-100); Platelet Count 481 K/uL (130-400); RDW Standard Deviation 65.1 fL (36.4-46.3); White Blood Count 14.02 K/uL (4.8-10.8)
[2021-05-21 06:59] LABS: Partial Thromboplastin Ratio 1.2; Partial Thromboplastin Time 33.1 Seconds (21.0-31.0)
[2021-05-21 07:18] LABS: ALC (manual) 2.93 K/uL (1.2-3.4); ANC (manual) 10.23 K/uL (1.4-6.5); Anisocytosis Present; Lymphocytes # (manual) 2.93 K/uL (1.2-3.4); Lymphocytes % (manual) 20.9 %; Monocytes # (manual) 0.86 K/uL (0.11-0.59); Monocytes % (manual) 6.1 %; Neutrophils # (manual) 10.23 K/uL (1.4-6.5); Polychromasia 1+
[2021-05-21 07:19] LABS: BUN Creatinine Ratio 15.4 (10-20); Calcium 8.3 mg/dl (8.5-10.1); Est GFR (African American) 110.3 ml/min; Est GFR (Non-African American) 95.2 ml/min; Phosphorus 4.2 mg/dl (2.5-4.9); Potassium 3.6 mmol/L (3.5-5.1)
[2021-05-21] MEDS ORDERED: VANCOMYCIN TROUGH ONE (07:30)
[2021-05-21 08:03] LABS: Troponin I 0.07 ng/ml (0-0.04)
[2021-05-21] MEDS: MAGNESIUM OXIDE 400 MG TAB PO SCH (08:10)
[2021-05-21] MEDS: lisinopril 10 MG TAB PO SCH (08:10)
[2021-05-21] MEDS: ASPIRIN 81 MG ECTAB PO SCH (08:10)
[2021-05-21] MEDS: METOPROLOL SUCC 50MG EXT REL TAB PO SCH ×2 (08:11→21:41)
[2021-05-21] MEDS: MULTIVITAMIN TAB PO SCH (08:11)
[2021-05-21] MEDS: GABAPENTIN 300 MG CAP PO SCH (08:11)
[2021-05-21] MEDS: CLOPIDOGREL BISULFATE 75 MG TAB PO SCH (08:11)
[2021-05-21] MEDS: FUROSEMIDE 20 MG TAB PO SCH (08:11)
[2021-05-21] MEDS: TOPIRAMATE 50 MG TAB PO SCH ×2 (08:11→21:42)
[2021-05-21] MEDS: DULoxetine HCL 30 MG CAP PO SCH (08:11)
[2021-05-21] MEDS: LANSOPRAZOLE 30 MG SOLTAB PO SCH (08:12)
[2021-05-21] MEDS: ENOXAPARIN INJ 40 MG/0.4 ML SYR SQ SCH (08:12)
[2021-05-21] MEDS: INSULIN GLARGINE SOLOSTAR 100 UNITS/ML 3 ML PEN SQ SCH (08:12)
[2021-05-21] MEDS: INSULIN ASPART PER UNIT SC SCH ×4 (08:13→21:38)
[2021-05-21] MEDS: POLYETHYLENE (MIRALAX) 17 GM PACK PO SCH (08:16)
[2021-05-21] MEDS: DOCUSATE SODIUM 100 MG CAP PO SCH ×2 (08:16→21:42)
--- NOTE | 2021-05-21 08:45 | Progress Notes ---
DATE OF SERVICE: 05/21/2021. SUBJECTIVE: A 60-year-old female now postop day 5 from a left below-knee amputation for chronic leg infection and wound dehiscence. She is doing much better. She is extubated, awake, alert, and orien reena. She has got some moderate leg pain and that is about it. OBJECTIVE: VITAL SIGNS: Temperature 36.8. Vital signs are stable. GENERAL: Shows a pleasant middle-aged female. She is sitting up in bed and looks quite comfortable. EXTREMITIES: Examination of the left leg reveals the dressing to be clean, dry and intact. LABORATORY DATA: Hemoglobin 9.1. Hematocrit 29.9. ASSESSMENT: A 60-year-old white female, now 5 days out from a left below-knee amputation for a progr essive infected left leg and likely source of sepsis. She is doing much better. PLAN: From the orthopedic standpoint, we are going to leave this bandage on for 2 weeks. Antibiotic management as per ID. She does not need further antibiotics for her left leg wound. I need to see her back two to three weeks out from surgery date. Any orthopedic questions can be directed to me at [phone]. Job ID: [id number]
[2021-05-21] MEDS: VANCOMYCIN HCL 750 MG in SODIUM CHLORIDE 0.9% 250 ML IV SCH ×2 (09:00→20:32)
[2021-05-21] MEDS ORDERED: INSULIN GLARGINE SOLOSTAR 100 UNITS/ML 3 ML PEN SQ SCH (09:00)
--- NOTE | 2021-05-21 09:31 | Pharmacy Report ---
Pharmacy Vanc AUC Short Note - Date of Service May 21, 2021 - Assessment & Plan Assessment 60 year old F receiving VANCOMYCIN for treatment of MRSA bacteremia in the setting of sepsis secondary to L ankle osteomyelitis, ortho hardware. Patient is s/p L BKA performed 05/16. Echo with mitral valvue endocarditis, planning for 6 weeks of IV therapy. Blood cultures negative 05/17 Day # 8 of antimicrobial therapy. Plan Vancomycin * AUC/ELI is the preferred PK/PD target for vancomycin * AUC guided dosing is effective and associated with decreased risk of nephrotoxicity compared to traditional trough targets * Trough level came back at ~18.8 mcg/ml - this vancomycin dosing is predicted to achieve a target AUC/ELI of 400-600 mg/L.hr and may be associated with a 11 % risk of nephrotoxicity * Plan to continue current vancomycin regimen. Would recommend checking trough every 4-5 days if renal function is stable. Would recommend targeting trough ~16-20 mcg/ml outpatient as this correlates to AUC/ELI of 400-600 Pharmacy will continue to follow and will adjust dose/frequency as necessary. Thank you.
--- NOTE | 2021-05-21 20:23 | Hospitalist Progress Note ---
Date of Service May 21, 2021 Assessment & Plan (1) Severe sepsis: Plan: Secondary to infected wound/osteomyelitis of the left ankle Gram-positive bacteremia- MRSA Her blood pressure dropped while in the hospital and almost in septic shock She was transferred to ICU and was intubated Has been on intravenous Zosyn and vancomycin Blood culture is growing gram-positive cocci in clusters in 2 x 2 bottles- MRSA WBC continue trending down ID on board Recommended JUAN DAVID to r/o any vegetation If JUAN DAVID normal, she will need 2 weeks of IV abx; but if positive, she will need 6 weeks pf IV Vanco Repeat blood cx no growth Case discussed with cardiology about JUAN DAVID Repeat echo this morning showed 1.3 x 0.6 cm lesion present on the atrial aspect of the anterior mitral valve leaflet. 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 Case discussed with ID Dr. Cardona that recommended 6 weeks course of IV Vancomycin as per ID Will place a Picc line once repeat cx showed no growth Continue monitor Severe anemia Secondary to sepsis Hemoglobin dropped to 6.7 Received 2 units of blood transfusion during hospital course Hgb 9.1 today Continue monitor CBC (2) Bone infection of left ankle: Plan: History of bimalleolar fracture of the ankle in March, Status post repair with hardware placement Has infection in the open wound and likely has osteomyelitis which is the source of sepsis S/P Left Below Knee Amputation(Left) performed by Dr Yo on 05/16/21 Ortho recommended to leave this bandage on for 2 weeks. No Post op complication Continue PT/OT Follow up with ortho in 2-3 weeks from the day of surgery Fall precaution (3) Bimalleolar fracture of left ankle: Plan: As above (4) (HFpEF) heart failure with preserved ejection fraction: Plan: History of CHF as above Limiting use of IV fluid for sepsis PO lasix resumed (5) Diabetes mellitus, type 2: Plan: Diabetes seems to be uncontrolled Diabetic neuropathy Hemoglobin A1c noted to be high at 10.3 on 05/15/21 Pharmacy on board for glycemic management Continue Insulin Glargine and novolog sliding scale (6) Electrolyte imbalance: Plan: Has significant electrolyte imbalance including Electrolytes replaced CAD status post CABG Mild elevation of troponin Likely secondary to sepsis and a stress induced Doubt any ACS Stable Plan: DVT prophylaxis on Lovenox subq CODE STATUS Full Admission and Anticipated Discharge Date Admission Date: May 14, 2021 Subjective Pt was seen and examined for postop follow up and bacteremia Lying in bed with no acute distress She said that she participated in therapy today denies any chest pain, palpitation, dizziness and fever Review of Systems Review of Systems: All systems reviewed & are unremarkable except as noted in Subjective Physical Exam Physical Exam: General- No acute distress Head- atraumatic Eyes- PERRL, EOMI, ENT- oropharynx clear Neck- supple, no JVD Lungs- +diminished BS Heart- regular rhythm; no murmur Abdomen- normal bowel sounds, soft, nontender Extremities- no calf tenderness, LBKA Neuro- alert, oriented x 3; PERRL, EOMI; no facial palsy; no dysarthria Skin- warm & dry Results & Data Results & Data ([facility]) Vital Signs (Past 12 Hours) Vital Signs Temp Pulse Pulse Resp BP BP Pulse Ox 05/21/21 19:00 36.6 C 83 18 163/91 H 98 05/21/21 16:10 77 05/21/21 15:31 36.4 C L 80 20 151/84 H 97 05/21/21 10:55 36.8 C 90 20 148/77 H 95 05/21/21 09:06 83
[2021-05-21] MEDS: INSULIN GLARGINE SOLOSTAR 100 UNITS/ML 3 ML PEN SC SCH (21:37)
[2021-05-21] MEDS: ATORVASTATIN 40 MG TAB PO SCH (21:41)
[2021-05-21] MEDS: DONEPEZIL HCL 5 MG TAB PO SCH (21:41)
[2021-05-21] MEDS: GABAPENTIN 600 MG TAB PO SCH (21:42)
[2021-05-22] MEDS: oxyCODONE HCL IR 5 MG TAB (IMMEDIATE RELEASE) PO PRN ×5 (02:29→18:42)
[2021-05-22] MEDS: lisinopril 20 MG TAB PO SCH (03:42)
[2021-05-22 03:55] LABS: Hematocrit (blood only) 30.3 % (37-47); Hemoglobin 9.2 g/dL (12.0-16.0); Mean Corpuscular Hemoglobin 27.8 pg (25-34); Mean Corpuscular Hgb Conc 30.4 g/dL (32-36); Mean Corpuscular Volume 91.5 fL (80-100); Mean Platelet Volume 9.9 fL (7.4-10.4); Platelet Count 480 K/uL (130-400); RDW Coefficient of Variation 19.8 % (11.5-14.5); RDW Standard Deviation 65.3 fL (36.4-46.3); Red Blood Count 3.31 M/uL (4.2-5.4)
[2021-05-22 04:06] LABS: Partial Thromboplastin Ratio 1.1; Partial Thromboplastin Time 31.5 Seconds (21.0-31.0)
[2021-05-22 04:17] LABS: Calcium 8.6 mg/dl (8.5-10.1); Creatinine Clr Calc Pharmacy 76.3 ml/min; Est GFR (African American) 108.1 ml/min; Est GFR (Non-African American) 93.3 ml/min; Magnesium 1.8 mg/dl (1.7-2.4); Phosphorus 4.4 mg/dl (2.5-4.9); Potassium 3.9 mmol/L (3.5-5.1); Troponin I 0.03 ng/ml (0-0.04)
[2021-05-22 04:38] LABS: Anisocytosis Present; Basophils # (auto) 0.02 K/uL (0-0.2); Basophils % (auto) 0.2 %; Eosinophils # (auto) 0.17 K/uL (0-0.5); Eosinophils % (auto) 1.4 %; Hypochromasia Present; Immature Granulocytes # (auto) 0.17 K/uL (0.00-0.02); Immature Granulocytes % (auto) 1.4 %; Lymphocytes # (auto) 1.81 K/uL (1.2-3.4); Lymphocytes % (auto) 15.3 %; Monocytes # (auto) 1.87 K/uL (0.11-0.59); Monocytes % (auto) 15.8 %; Neutrophils # (auto) 7.76 K/uL (1.4-6.5); Neutrophils % (auto) 65.9 %; Rouleaux 1+; Stomatocytes 1+
[2021-05-22] MEDS: FUROSEMIDE 20 MG TAB PO SCH (08:02)
[2021-05-22] MEDS: CLOPIDOGREL BISULFATE 75 MG TAB PO SCH (08:02)
[2021-05-22] MEDS: TOPIRAMATE 50 MG TAB PO SCH ×2 (08:03→21:15)
[2021-05-22] MEDS: GABAPENTIN 300 MG CAP PO SCH (08:03)
[2021-05-22] MEDS: ASPIRIN 81 MG ECTAB PO SCH (08:03)
[2021-05-22] MEDS: MAGNESIUM OXIDE 400 MG TAB PO SCH (08:03)
[2021-05-22] MEDS: DULoxetine HCL 30 MG CAP PO SCH (08:03)
[2021-05-22] MEDS: MULTIVITAMIN TAB PO SCH (08:03)
[2021-05-22] MEDS: METOPROLOL SUCC 50MG EXT REL TAB PO SCH ×2 (08:03→21:14)
[2021-05-22] MEDS: ENOXAPARIN INJ 40 MG/0.4 ML SYR SQ SCH (08:04)
[2021-05-22] MEDS: LANSOPRAZOLE 30 MG SOLTAB PO SCH (08:07)
[2021-05-22] MEDS: POLYETHYLENE (MIRALAX) 17 GM PACK PO SCH (08:07)
[2021-05-22] MEDS: DOCUSATE SODIUM 100 MG CAP PO SCH ×2 (08:07→21:18)
[2021-05-22 08:14] LABS: BUN Creatinine Ratio 11.8 (10-20); Calcium 8.3 mg/dl (8.5-10.1); Creatinine Clr Calc Pharmacy 78.7 ml/min; Est GFR (African American) 108.7 ml/min; Est GFR (Non-African American) 93.7 ml/min; Magnesium 1.8 mg/dl (1.7-2.4); Phosphorus 4.3 mg/dl (2.5-4.9); Potassium 4.2 mmol/L (3.5-5.1)
[2021-05-22] MEDS ORDERED: MoRPHine SULFATE 2 MG/ML CARP IV STA (08:20)
[2021-05-22] MEDS: INSULIN ASPART PER UNIT SC SCH ×4 (08:32→21:05)
[2021-05-22] MEDS: VANCOMYCIN HCL 750 MG in SODIUM CHLORIDE 0.9% 250 ML IV SCH ×2 (09:02→21:08)
[2021-05-22] MEDS: INSULIN GLARGINE SOLOSTAR 100 UNITS/ML 3 ML PEN SQ SCH (09:16)
--- NOTE | 2021-05-22 12:27 | Electrocardiogram Report ---
Test Reason : Blood Pressure : / mmHG Vent. Rate : 092 BPM Atrial Rate : 092 BPM P-R Int : 146 ms QRS Dur : 150 ms QT Int : 428 ms P-R-T Axes : 052 004 070 degrees QTc Int : 529 ms Normal sinus rhythm Left bundle branch block Abnormal ECG When compared with ECG of 15-MAY-2021 06:04, No significant change was found Confirmed by Tacho Cervantes ([id number]) on 05/22/2021 12:27:22 PM Referred By: REFERRED SELF Confirmed By:Tacho Cervantes
[2021-05-22] MEDS: traMADol HCL 50 MG TABLET PO PRN (12:38)
[2021-05-22] MEDS ORDERED: MoRPHine SULFATE 2 MG/ML CARP IV PRN (17:40)
[2021-05-22] MEDS: INSULIN GLARGINE SOLOSTAR 100 UNITS/ML 3 ML PEN SC SCH (21:05)
[2021-05-22] MEDS: DONEPEZIL HCL 5 MG TAB PO SCH (21:13)
[2021-05-22] MEDS: ATORVASTATIN 40 MG TAB PO SCH (21:13)
[2021-05-22] MEDS: GABAPENTIN 600 MG TAB PO SCH (21:15)
--- NOTE | 2021-05-22 23:57 | Hospitalist Progress Note ---
Date of Service May 22, 2021 Assessment & Plan (1) Severe sepsis: Plan: Secondary to infected wound/osteomyelitis of the left ankle Gram-positive bacteremia- MRSA Her blood pressure dropped while in the hospital and almost in septic shock She was transferred to ICU and was intubated Has been on intravenous Zosyn and vancomycin Blood culture is growing gram-positive cocci in clusters in 2 x 2 bottles- MRSA WBC continue trending down 11.8K ID on board Recommended JUAN DAVID to r/o any vegetation If JUAN DAVID normal, she will need 2 weeks of IV abx; but if positive, she will need 6 weeks pf IV Vanco Repeat blood cx no growth Case discussed with cardiology about JUAN DAVID Repeat echo this morning showed 1.3 x 0.6 cm lesion present on the atrial aspect of the anterior mitral valve leaflet. 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 Case discussed with ID Dr. Cardona that recommended 6 weeks course of IV Vancomycin as per ID Will place a Picc line once repeat cx showed no growth tomorrow Continue monitor Severe anemia Secondary to sepsis Hemoglobin dropped to 6.7 Received 2 units of blood transfusion during hospital course Hgb 9.2 today Continue monitor CBC (2) Bone infection of left ankle: Plan: History of bimalleolar fracture of the ankle in March, Status post repair with hardware placement Has infection in the open wound and likely has osteomyelitis which is the source of sepsis S/P Left Below Knee Amputation(Left) performed by Dr Yo on 05/16/21 Ortho recommended to leave this bandage on for 2 weeks. No Post op complication Continue PT/OT Follow up with ortho in 2-3 weeks from the day of surgery Fall precaution (3) Bimalleolar fracture of left ankle: Plan: As above (4) (HFpEF) heart failure with preserved ejection fraction: Plan: History of CHF as above Limiting use of IV fluid for sepsis PO lasix resumed (5) Diabetes mellitus, type 2: Plan: Diabetes seems to be uncontrolled Diabetic neuropathy Hemoglobin A1c noted to be high at 10.3 on 05/15/21 Pharmacy on board for glycemic management Continue Insulin Glargine and novolog sliding scale (6) Electrolyte imbalance: Plan: Has significant electrolyte imbalance including Electrolytes replaced CAD status post CABG Mild elevation of troponin Likely secondary to sepsis and a stress induced Doubt any ACS Stable Plan: DVT prophylaxis on Lovenox subq CODE STATUS Full Admission and Anticipated Discharge Date Admission Date: May 14, 2021 Subjective Pt was seen and examined for postop follow up and bacteremia Sitting at the edge bed with no acute distress eating dinner denies any chest pain, palpitation, dizziness and fever Review of Systems Review of Systems: All systems reviewed & are unremarkable except as noted in Subjective Physical Exam Physical Exam: General- No acute distress Head- atraumatic Eyes- PERRL, EOMI, ENT- oropharynx clear Neck- supple, no JVD Lungs- +diminished BS Heart- regular rhythm; no murmur Abdomen- normal bowel sounds, soft, nontender Extremities- no calf tenderness, LBKA Neuro- alert, oriented x 3; PERRL, EOMI; no facial palsy; no dysarthria Skin- warm & dry Results & Data Results & Data ([facility]) Vital Signs (Past 12 Hours) Vital Signs Temp Pulse Resp BP BP Pulse Ox 05/22/21 23:30 36.6 C 81 16 145/82 H 97 05/22/21 19:48 36.7 C 87 20 151/81 H 92 05/22/21 15:09 37.1 C 88 19 164/79 H 95
[2021-05-23] MEDS: traMADol HCL 50 MG TABLET PO PRN ×4 (03:32→23:54)
[2021-05-23] MEDS: oxyCODONE HCL IR 5 MG TAB (IMMEDIATE RELEASE) PO PRN ×4 (05:12→20:57)
[2021-05-23] MEDS: METOPROLOL SUCC 50MG EXT REL TAB PO SCH ×2 (08:11→20:58)
[2021-05-23] MEDS: VANCOMYCIN HCL 750 MG in SODIUM CHLORIDE 0.9% 250 ML IV SCH ×2 (08:11→20:57)
[2021-05-23] MEDS: lisinopril 20 MG TAB PO SCH (08:11)
[2021-05-23] MEDS: DULoxetine HCL 30 MG CAP PO SCH (08:11)
[2021-05-23] MEDS: CLOPIDOGREL BISULFATE 75 MG TAB PO SCH (08:11)
[2021-05-23] MEDS: ENOXAPARIN INJ 40 MG/0.4 ML SYR SQ SCH (08:12)
[2021-05-23] MEDS: MAGNESIUM OXIDE 400 MG TAB PO SCH (08:12)
[2021-05-23] MEDS: FUROSEMIDE 20 MG TAB PO SCH (08:12)
[2021-05-23] MEDS: TOPIRAMATE 50 MG TAB PO SCH ×2 (08:12→20:59)
[2021-05-23] MEDS: ASPIRIN 81 MG ECTAB PO SCH (08:12)
[2021-05-23] MEDS: MULTIVITAMIN TAB PO SCH (08:12)
[2021-05-23] MEDS: GABAPENTIN 300 MG CAP PO SCH (08:12)
[2021-05-23] MEDS: INSULIN GLARGINE SOLOSTAR 100 UNITS/ML 3 ML PEN SQ SCH (08:13)
[2021-05-23] MEDS: INSULIN GLARGINE SOLOSTAR 100 UNITS/ML 3 ML PEN SC SCH (08:13)
[2021-05-23] MEDS: INSULIN ASPART PER UNIT SC SCH ×4 (08:14→22:00)
[2021-05-23] MEDS: DOCUSATE SODIUM 100 MG CAP PO SCH ×2 (09:52→21:05)
[2021-05-23] MEDS: LANSOPRAZOLE 30 MG SOLTAB PO SCH (09:52)
[2021-05-23] MEDS: POLYETHYLENE (MIRALAX) 17 GM PACK PO SCH (09:53)
--- NOTE | 2021-05-23 10:35 | Electrocardiogram Report ---
Test Reason : Blood Pressure : / mmHG Vent. Rate : 082 BPM Atrial Rate : 082 BPM P-R Int : 140 ms QRS Dur : 148 ms QT Int : 442 ms P-R-T Axes : 048 007 096 degrees QTc Int : 516 ms Normal sinus rhythm Left bundle branch block Abnormal ECG When compared with ECG of 20-MAY-2021 20:58, No significant change was found Confirmed by Tacho Cervantes ([id number]) on 05/23/2021 10:34:40 AM Referred By: REFERRED SELF Confirmed By:Tacho Cervantes
[2021-05-23] MEDS: ATORVASTATIN 40 MG TAB PO SCH (20:58)
[2021-05-23] MEDS: DONEPEZIL HCL 5 MG TAB PO SCH (20:58)
[2021-05-23] MEDS: GABAPENTIN 600 MG TAB PO SCH (20:59)
--- NOTE | 2021-05-23 21:45 | Hospitalist Progress Note ---
Date of Service May 23, 2021 Assessment & Plan (1) Severe sepsis: Plan: Secondary to infected wound/osteomyelitis of the left ankle Gram-positive bacteremia- MRSA Her blood pressure dropped while in the hospital and almost in septic shock She was transferred to ICU and was intubated Has been on intravenous Zosyn and vancomycin Blood culture is growing gram-positive cocci in clusters in 2 x 2 bottles- MRSA WBC continue trending down 11.8K ID on board Recommended JUAN DAVID to r/o any vegetation If JUAN DAVID normal, she will need 2 weeks of IV abx; but if positive, she will need 6 weeks pf IV Vanco Repeat blood cx no growth Case discussed with cardiology about JUAN DAVID Repeat echo this morning showed 1.3 x 0.6 cm lesion present on the atrial aspect of the anterior mitral valve leaflet. 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 Case discussed with ID Dr. Cardona that recommended 6 weeks course of IV Vancomycin as per ID Will place a Picc line tomorrow for outpatient abx infusion Continue monitor Severe anemia Secondary to sepsis Hemoglobin dropped to 6.7 Received 2 units of blood transfusion during hospital course Hgb 9.2 Continue monitor CBC (2) Bone infection of left ankle: Plan: History of bimalleolar fracture of the ankle in March, Status post repair with hardware placement Has infection in the open wound and likely has osteomyelitis which is the source of sepsis S/P Left Below Knee Amputation(Left) performed by Dr Yo on 05/16/21 Ortho recommended to leave this bandage on for 2 weeks. No Post op complication Continue PT/OT Follow up with ortho in 2-3 weeks from the day of surgery Fall precaution (3) Bimalleolar fracture of left ankle: Plan: As above (4) (HFpEF) heart failure with preserved ejection fraction: Plan: History of CHF as above Continue require oxygen supplement Will get a CXR in am Continue PO lasix (5) Diabetes mellitus, type 2: Plan: Diabetes seems to be uncontrolled Diabetic neuropathy Hemoglobin A1c noted to be high at 10.3 on 05/15/21 Pharmacy on board for glycemic management Continue Insulin Glargine and novolog sliding scale (6) Electrolyte imbalance: Plan: Has significant electrolyte imbalance including Stable CAD status post CABG Mild elevation of troponin Likely secondary to sepsis and a stress induced Doubt any ACS Stable Plan: DVT prophylaxis on Lovenox subq CODE STATUS Full Admission and Anticipated Discharge Date Admission Date: May 14, 2021 Subjective Pt was seen and examined for postop follow up and bacteremia Lying in bed with with no acute distress watching TV with family at bedside denies any chest pain, palpitation, dizziness and fever Review of Systems Review of Systems: All systems reviewed & are unremarkable except as noted in Subjective Physical Exam Physical Exam: General- No acute distress Head- atraumatic Eyes- PERRL, EOMI, ENT- oropharynx clear Neck- supple, no JVD Lungs- +diminished BS Heart- regular rhythm; no murmur Abdomen- normal bowel sounds, soft, nontender Extremities- no calf tenderness, LBKA Neuro- alert, oriented x 3; PERRL, EOMI; no facial palsy; no dysarthria Skin- warm & dry Results & Data Results & Data ([facility]) Vital Signs (Past 12 Hours) Vital Signs Temp Pulse Pulse Resp BP Pulse Ox 05/23/21 19:50 36.8 C 89 18 146/67 H 99 05/23/21 15:14 37.1 C 88 19 163/85 H 95 05/23/21 14:52 81 05/23/21 11:09 36.8 C 85 19 164/84 H 95
[2021-05-24] MEDS: oxyCODONE HCL IR 5 MG TAB (IMMEDIATE RELEASE) PO PRN ×5 (02:36→20:00)
[2021-05-24] MEDS: MULTIVITAMIN TAB PO SCH (07:21)
[2021-05-24] MEDS: DULoxetine HCL 30 MG CAP PO SCH (07:21)
[2021-05-24] MEDS: lisinopril 20 MG TAB PO SCH (07:21)
[2021-05-24] MEDS: TOPIRAMATE 50 MG TAB PO SCH ×2 (07:21→20:07)
[2021-05-24] MEDS: CLOPIDOGREL BISULFATE 75 MG TAB PO SCH (07:21)
[2021-05-24] MEDS: MAGNESIUM OXIDE 400 MG TAB PO SCH (07:21)
[2021-05-24] MEDS: GABAPENTIN 300 MG CAP PO SCH (07:22)
[2021-05-24] MEDS: ENOXAPARIN INJ 40 MG/0.4 ML SYR SQ SCH (07:22)
[2021-05-24] MEDS: METOPROLOL SUCC 50MG EXT REL TAB PO SCH ×2 (07:22→20:06)
[2021-05-24] MEDS: FUROSEMIDE 20 MG TAB PO SCH (07:22)
[2021-05-24] MEDS: ASPIRIN 81 MG ECTAB PO SCH (07:22)
[2021-05-24] MEDS: DOCUSATE SODIUM 100 MG CAP PO SCH ×2 (07:23→20:04)
[2021-05-24] MEDS: LANSOPRAZOLE 30 MG SOLTAB PO SCH (07:24)
[2021-05-24] MEDS: POLYETHYLENE (MIRALAX) 17 GM PACK PO SCH (07:28)
[2021-05-24] MEDS: VANCOMYCIN HCL 750 MG in SODIUM CHLORIDE 0.9% 250 ML IV SCH ×2 (07:32→20:02)
--- NOTE | 2021-05-24 07:47 | XRay Report ---
XR chest 1V portable CLINICAL HISTORY: Follow-up airspace opacities and pleural effusion. COMPARISON STUDY: 05/17/2021 TECHNIQUE: 1 view of the chest FINDINGS: Single frontal view of the chest demonstrates the heart to again be enlarged status post previous car diothoracic surgery. Compared to previous examination, there is again haziness at both lung bases william racteristic of pleural fluid layering posteriorly. The lungs are otherwise clear of alveolar opacitie s. There is no evidence for vascular congestion. There is no acute osseous pathology. IMPRESSION: 1. Compared to previous examination, there are small to moderate size residual bilateral pleural effu sions. 2. No confluent alveolar opacities. ACT 112: Negative or not required by law. Electronically signed by: Juan Francisco Serrano M.D. 05/24/2021 7:45 AM
[2021-05-24] MEDS: INSULIN ASPART PER UNIT SC SCH ×4 (08:59→20:38)
[2021-05-24] MEDS ORDERED: INSULIN GLARGINE SOLOSTAR 100 UNITS/ML 3 ML PEN SQ SCH (09:00)
--- NOTE | 2021-05-24 12:24 | Pharmacy Report ---
Pharmacy Glycemic Short Note 2 - Date of Service May 24, 2021 - Glycemic Short BSG Results (Last 24 hours): 05/23/21 05/23/21 05/24/21 16:13 21:00 08:09 POC Glucose 172 H 203 H 165 H 05/24/21 12:02 POC Glucose 158 H OUTPATIENT ANTIDIABETIC REGIMEN: * Basaglar 46 units SQ qAM * Novolog sliding scale * HbA1C = 10.3% (05/15/21) ASSESSMENT: 05/24/21 * BSGs yesterday were [phone] mg/dL. * Patient received 28 units of insulin (8 units of basal and 20 units of bolus). * Patient did not receive scheduled Lantus yesterday due to charting error. * Increase Lantus to 10 units daily. * Continue Novolog / * BSGs well controlled over last 24 hrs * BSGs did trend up following resumption of diet yesterday. Likely due in part to holding basal insulin dose in the AM for BSGs in the 70s. * Patient was initially NPO this AM for JUAN DAVID but this has been cancelled and diet ordered to resume w/ lunch. Will give Lantus at that time. * Fasting BSG 130 this AM with 5 units basal on board and following receipt of 5 units correctional insulin from HS and 0200 BSG checks. 05/18 * BSGs well controlled over last 24 hrs * Fasting BSG in 70s this AM w/ 10 units basal on board. Will hold basal dose this AM. Diet is being advanced from NPO to full liquids today. Will add scaled dose of basal for this evening should pt tolerate diet and BSGs begin to climb. * Continue Novolog doses as ordered and follow post-prandial trends today 05/17 * BSGs well controlled over last 24 hrs * Patient was extubated thus AM, however will likely remain NPO today. No need for pressor support. * Fasting BSGs in 120-150's with 10 units basal on board from yesterday, and only requiring occasional correctional insulin for BSGs > 140 * Will continue similar basal insulin dose for now. Once diet is advanced, basal needs may increase (outpt basal insulin dose much greater than what is currently ordered) * Will continue with Novolog Q 4 hrs using "severe" stress doses (pt has demonstrated need for high rapid acting insulin doses on prior admissions) 4/3 * Patient was initiated on insulin infusion yesterday around noon due to two consecutive BSGs > 200 mg/dL. Insulin infusion was discontinued yesterday evening due to BSGs < 140 mg/dL. * q4 checks started after this and overnight BSGs remained < 140 mg/dL. * Will currently continue with q4 checks of BSGs with weight-based stress of 3 CF. * Patient remains NPO and intubated (sedated with propofol). * Reorder Lantus when BSGs trend above 160 mg/dL. Plan for 10 units. PLAN FOR INPATIENT GLYCEMIC CONTROL: * Hold outpatient oral diabetes medications * Basal insulin * Lantus 10 units SQ qAM * Bolus insulin * NovoLog per scale ACHS * Goal Range: Low 110 mg/dL - High 140 mg/dL * Correction Factor: 20 mg/dL/unit * Nutritional / Prandial insulin per carb ratio of 1 unit per 9 grams CHO consumed
[2021-05-24] MEDS: DONEPEZIL HCL 5 MG TAB PO SCH (20:06)
[2021-05-24] MEDS: GABAPENTIN 600 MG TAB PO SCH (20:06)
[2021-05-24] MEDS: ATORVASTATIN 40 MG TAB PO SCH (20:06)
[2021-05-24] MEDS: traMADol HCL 50 MG TABLET PO PRN (21:09)
[2021-05-24] MEDS: MELATONIN 3 MG TAB PO PRN (21:33)
--- NOTE | 2021-05-24 21:49 | Hospitalist Progress Note ---
Date of Service May 24, 2021 Assessment & Plan (1) Severe sepsis: Plan: Secondary to infected wound/osteomyelitis of the left ankle Gram-positive bacteremia- MRSA Her blood pressure dropped while in the hospital and almost in septic shock She was transferred to ICU and was intubated Has been on intravenous Zosyn and vancomycin Blood culture is growing gram-positive cocci in clusters in 2 x 2 bottles- MRSA WBC continue trending down 11.8K ID on board Recommended JUAN DAVID to r/o any vegetation If JUAN DAVID normal, she will need 2 weeks of IV abx; but if positive, she will need 6 weeks pf IV Vanco Repeat blood cx no growth Case discussed with cardiology about JUAN DAVID Repeat echo this morning showed 1.3 x 0.6 cm lesion present on the atrial aspect of the anterior mitral valve leaflet. 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 Case discussed with ID Dr. Cardona that recommended 6 weeks course of IV Vancomycin as per ID Will place a Picc line for outpatient abx infusion today Continue monitor Acute infective endocarditis Echo this morning showed 1.3 x 0.6 cm lesion present on the atrial aspect of the anterior mitral valve leaflet. ID recommended to complete 6 weeks course of IV Vanco Severe anemia Secondary to sepsis Hemoglobin dropped to 6.7 Received 2 units of blood transfusion during hospital course Hgb 9.2 Continue monitor CBC (2) Bone infection of left ankle: Plan: History of bimalleolar fracture of the ankle in March, Status post repair with hardware placement Has infection in the open wound and likely has osteomyelitis which is the source of sepsis S/P Left Below Knee Amputation(Left) performed by Dr Yo on 05/16/21 Ortho recommended to leave this bandage on for 2 weeks. No Post op complication Continue PT/OT Follow up with ortho in 2-3 weeks from the day of surgery Fall precaution (3) Bimalleolar fracture of left ankle: Plan: As above (4) (HFpEF) heart failure with preserved ejection fraction: Plan: History of CHF as above Continue require oxygen supplement Will get a CXR in am Continue PO lasix (5) Diabetes mellitus, type 2: Plan: Diabetes seems to be uncontrolled Diabetic neuropathy Hemoglobin A1c noted to be high at 10.3 on 05/15/21 Pharmacy on board for glycemic management Continue Insulin Glargine and novolog sliding scale (6) Electrolyte imbalance: Plan: Has significant electrolyte imbalance including Stable CAD status post CABG Mild elevation of troponin Likely secondary to sepsis and a stress induced Doubt any ACS Stable Plan: DVT prophylaxis on Lovenox subq CODE STATUS Full Admission and Anticipated Discharge Date Admission Date: May 14, 2021 Subjective Pt was seen and examined for postop follow up and bacteremia Sitting on the wheelchair with no acute distress watching TV denies any chest pain, palpitation, dizziness and fever Review of Systems Review of Systems: All systems reviewed & are unremarkable except as noted in Subjective Physical Exam Physical Exam: General- No acute distress Head- atraumatic Eyes- PERRL, EOMI, ENT- oropharynx clear Neck- supple, no JVD Lungs- +diminished BS Heart- regular rhythm; no murmur Abdomen- normal bowel sounds, soft, nontender Extremities- no calf tenderness, LBKA Neuro- alert, oriented x 3; PERRL, EOMI; no facial palsy; no dysarthria Skin- warm & dry Results & Data Results & Data ([facility]) Vital Signs (Past 12 Hours) Vital Signs Temp Pulse Resp BP Pulse Ox 05/24/21 14:52 36.6 C 76 16 154/76 H 96
[2021-05-24] MEDS ORDERED: oxyCODONE HCL IR 5 MG TAB (IMMEDIATE RELEASE) PO STA (23:00)
[2021-05-25] MEDS: oxyCODONE HCL IR 5 MG TAB (IMMEDIATE RELEASE) PO PRN ×4 (00:01→18:30)
[2021-05-25] MEDS ORDERED: VANCOMYCIN TROUGH ONE (07:30)
--- NOTE | 2021-05-25 09:11 | Pharmacy Report ---
Pharmacy Abx Dose Short Note - Date of Service May 25, 2021 - Assessment & Plan Assessment 60 year old F receiving vancomycin for treatment of MRSA bacteremia Day # of antimicrobial therapy. Plan Vancomycin * Trough level of 16 mcg/mL is therapeutic. * Continue dose of 750 mg IV every 12 hours * Goal trough level for bacteremia : 15 to 20 mcg/mL * Trough to be ordered based upon clinical picture Pharmacy will continue to follow and will adjust dose/frequency as necessary. Thank you.
[2021-05-25] MEDS: INSULIN GLARGINE SOLOSTAR 100 UNITS/ML 3 ML PEN SQ SCH (09:18)
[2021-05-25] MEDS: INSULIN ASPART PER UNIT SC SCH ×4 (09:19→20:54)
[2021-05-25] MEDS: VANCOMYCIN HCL 750 MG in SODIUM CHLORIDE 0.9% 250 ML IV SCH ×2 (09:26→20:43)
[2021-05-25] MEDS: MULTIVITAMIN TAB PO SCH (09:32)
[2021-05-25] MEDS: METOPROLOL SUCC 50MG EXT REL TAB PO SCH ×2 (09:32→20:55)
[2021-05-25] MEDS: lisinopril 20 MG TAB PO SCH (09:32)
[2021-05-25] MEDS: MAGNESIUM OXIDE 400 MG TAB PO SCH (09:32)
[2021-05-25] MEDS: LANSOPRAZOLE 30 MG SOLTAB PO SCH (09:33)
[2021-05-25] MEDS: GABAPENTIN 300 MG CAP PO SCH (09:34)
[2021-05-25] MEDS: DULoxetine HCL 30 MG CAP PO SCH (09:34)
[2021-05-25] MEDS: FUROSEMIDE 20 MG TAB PO SCH (09:34)
[2021-05-25] MEDS: ASPIRIN 81 MG ECTAB PO SCH (09:35)
[2021-05-25] MEDS: TOPIRAMATE 50 MG TAB PO SCH ×2 (09:35→20:55)
[2021-05-25] MEDS: POLYETHYLENE (MIRALAX) 17 GM PACK PO SCH (09:35)
[2021-05-25] MEDS: DOCUSATE SODIUM 100 MG CAP PO SCH ×2 (09:35→20:59)
[2021-05-25] MEDS: ENOXAPARIN INJ 40 MG/0.4 ML SYR SQ SCH (09:36)
[2021-05-25 10:11] LABS: Creatinine Clr Calc Pharmacy 95.6 ml/min; Est GFR (Non-African American) 96.6 ml/min
[2021-05-25] MEDS: CLOPIDOGREL BISULFATE 75 MG TAB PO SCH (10:28)
--- NOTE | 2021-05-25 11:52 | Progress Notes ---
DATE OF SERVICE: 05/25/2021. SUBJECTIVE: A 60-year-old female, now 9 days out from a left below-knee amputation for a chronic inf ected wound, status post ankle ORIF. She is doing much better. She clinically looks to be back to b aseline. She continues to complain of some pain, but looks pretty comfortable. OBJECTIVE: VITAL SIGNS: Temperature 36.8. Vital signs are stable. GENERAL: Shows a pleasant 60-year-old female. She is sitting up in bed and looks pretty comfortable . EXTREMITIES: Examination of the left leg reveals the dressing to be clean, dry and intact. No drain age. ASSESSMENT: A 60-year-old female with multiple medical comorbidities, now 9 days out from a left bel ow-knee amputation for a chronically infected dehisced ankle wound after ORIF. She is doing much bet ter. She was septic and it does appear she has had some degree of endocarditis and on 6 weeks of IV antibiotics. PLAN: From the orthopedic standpoint, we are going to leave this bandage on for somewhere between 2 and 3 weeks out from surgery and then remove it and hopefully remove her mauro. Remainder of her m anagement as per the medicine service. She is apparently on 6 weeks of vancomycin. She does not nee d to be on any antibiotics for her left leg BKA. She can mobilize as tolerated. We are just going t o leave this dressing on. Any orthopedic questions can be directed to me at [phone]. Job ID: [id number]
[2021-05-25] MEDS: ACETAMINOPHEN 500 MG TAB PO PRN (14:02)
--- NOTE | 2021-05-25 17:17 | Hospitalist Progress Note ---
Date of Service May 25, 2021 Assessment & Plan (1) Severe sepsis: Plan: Secondary to infected wound/osteomyelitis of the left ankle Gram-positive bacteremia- MRSA Her blood pressure dropped while in the hospital and almost in septic shock She was transferred to ICU and was intubated Has been on intravenous Zosyn and vancomycin Blood culture is growing gram-positive cocci in clusters in 2 x 2 bottles- MRSA WBC continue trending down 11.8K ID on board Recommended JUAN DAVID to r/o any vegetation If JUAN DAVID normal, she will need 2 weeks of IV abx; but if positive, she will need 6 weeks pf IV Vanco Repeat blood cx no growth Case discussed with cardiology about JUNA DAVID Repeat echo this morning showed 1.3 x 0.6 cm lesion present on the atrial aspect of the anterior mitral valve leaflet. 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 Case discussed with ID Dr. Cardona that recommended 6 weeks course of IV Vancomycin as per ID Picc line placed for outpatient abx infusion Continue monitor Acute infective endocarditis Echo this morning showed 1.3 x 0.6 cm lesion present on the atrial aspect of the anterior mitral valve leaflet. ID recommended to complete 6 weeks course of IV Vanco Severe anemia Secondary to sepsis Hemoglobin dropped to 6.7 Received 2 units of blood transfusion during hospital course Hgb 9.2 Continue monitor CBC (2) Bone infection of left ankle: Plan: History of bimalleolar fracture of the ankle in March, Status post repair with hardware placement Has infection in the open wound and likely has osteomyelitis which is the source of sepsis S/P Left Below Knee Amputation(Left) performed by Dr Yo on 05/16/21 Ortho recommended to leave this bandage on for 2 weeks. No Post op complication Continue PT/OT Follow up with ortho in 2-3 weeks from the day of surgery Fall precaution (3) Bimalleolar fracture of left ankle: Plan: As above (4) (HFpEF) heart failure with preserved ejection fraction: Plan: History of CHF as above Continue require oxygen supplement CXR showed small to moderate size residual bilateral pleural effusions. Continue PO lasix Will consider to give additional lasix 40mg x1 tonight (5) Diabetes mellitus, type 2: Plan: Diabetes seems to be uncontrolled Diabetic neuropathy Hemoglobin A1c noted to be high at 10.3 on 05/15/21 Pharmacy on board for glycemic management Continue Insulin Glargine and novolog sliding scale (6) Electrolyte imbalance: Plan: Has significant electrolyte imbalance including Stable CAD status post CABG Mild elevation of troponin Likely secondary to sepsis and a stress induced Doubt any ACS Stable Plan: DVT prophylaxis on Lovenox subq CODE STATUS Full Admission and Anticipated Discharge Date Admission Date: May 14, 2021 Subjective Pt was seen and examined for postop follow up and bacteremia Lying in bed with no acute distress watching TV denies any chest pain, palpitation, dizziness and fever Review of Systems Review of Systems: All systems reviewed & are unremarkable except as noted in Subjective Physical Exam Physical Exam: General- No acute distress Head- atraumatic Eyes- PERRL, EOMI, ENT- oropharynx clear Neck- supple, no JVD Lungs- +diminished BS Heart- regular rhythm; no murmur Abdomen- normal bowel sounds, soft, nontender Extremities- no calf tenderness, LBKA Neuro- alert, oriented x 3; PERRL, EOMI; no facial palsy; no dysarthria Skin- warm & dry Results & Data Results & Data ([facility]) Vital Signs (Past 12 Hours) Vital Signs Temp Pulse Resp BP Pulse Ox 05/25/21 16:13 82 20 142/85 H 100 05/25/21 15:45 37.3 C 81 18 144/80 H 99 05/25/21 07:42 36.8 C 75 16 168/85 H 97
[2021-05-25] MEDS ORDERED: LEVALBUTEROL HCL 1.25 MG/3 ML NEB NEB STA (19:37)
[2021-05-25] MEDS ORDERED: FUROSEMIDE 40 MG/4 ML VIAL IV ONE (20:18)
--- NOTE | 2021-05-25 20:21 | XRay Report ---
XR chest 1V portable CLINICAL HISTORY: sob TECHNIQUE: Single frontal radiograph of the chest was obtained. Comparison: Comparison is made to chest radiograph 05/24/2021 FINDINGS: Median sternotomy wires are unchanged. Interval placement of a right PICC. The tip terminates to the left of the aorta. The cardiomediastinal silhouette is obscured. Bilateral lower lung predominant air space opacities are seen. Prominence and cephalization of the vasculature are seen along with Jil B lines. Small bilateral pleural effusions are seen. IMPRESSION: 1. Moderate pulmonary edema. Bilateral small airspace opacities are seen which may represent atelect asis, pneumonia, and/or aspiration, increased from prior exam. Bilateral pleural effusions are seen. 2. Interval placement of a right PICC. The tip terminates in the left of the aorta, this may represe nt a left-sided SVC. Two-view chest radiograph or cross-sectional imaging can be performed for evalua tion. ACT 112: Negative or not required by law. Electronically signed by: Johny Ferrer M.D. 05/25/2021 8:19 PM
[2021-05-25] MEDS: GABAPENTIN 600 MG TAB PO SCH (20:55)
[2021-05-25] MEDS: ATORVASTATIN 40 MG TAB PO SCH (20:55)
[2021-05-25] MEDS: DONEPEZIL HCL 5 MG TAB PO SCH (20:56)
[2021-05-26] MEDS: oxyCODONE HCL IR 5 MG TAB (IMMEDIATE RELEASE) PO PRN ×4 (00:20→22:41)
[2021-05-26] MEDS: ACETAMINOPHEN 500 MG TAB PO PRN ×2 (05:15→14:44)
[2021-05-26 06:06] LABS: Hematocrit (blood only) 26.1 % (37-47); Hemoglobin 7.8 g/dL (12.0-16.0); Mean Corpuscular Hemoglobin 27.9 pg (25-34); Mean Corpuscular Hgb Conc 29.9 g/dL (32-36); Mean Corpuscular Volume 93.2 fL (80-100); Mean Platelet Volume 9.5 fL (7.4-10.4); Platelet Count 388 K/uL (130-400); RDW Coefficient of Variation 20.6 % (11.5-14.5); RDW Standard Deviation 70.2 fL (36.4-46.3); White Blood Count 10.12 K/uL (4.8-10.8)
[2021-05-26 06:23] LABS: BUN Creatinine Ratio 14.3 (10-20); Calcium 8.7 mg/dl (8.5-10.1); Est GFR (African American) 111.4 ml/min; Est GFR (Non-African American) 96.1 ml/min; Magnesium 1.7 mg/dl (1.7-2.4); Phosphorus 3.9 mg/dl (2.5-4.9); Potassium 3.6 mmol/L (3.5-5.1)
[2021-05-26 06:44] LABS: ALC (manual) 1.86 K/uL (1.2-3.4); ANC (manual) 7.81 K/uL (1.4-6.5); Anisocytosis Present; Basophils # (manual) 0.09 K/uL (0-0.2); Basophils % (manual) 0.9 %; Lymphocytes # (manual) 1.86 K/uL (1.2-3.4); Lymphocytes % (manual) 18.4 %; Monocytes # (manual) 0.35 K/uL (0.11-0.59); Monocytes % (manual) 3.5 %; Neutrophils # (manual) 7.81 K/uL (1.4-6.5); Neutrophils % (manual) 77.2 %
[2021-05-26] MEDS: VANCOMYCIN HCL 750 MG in SODIUM CHLORIDE 0.9% 250 ML IV SCH ×2 (07:51→20:23)
[2021-05-26] MEDS: INSULIN ASPART PER UNIT SC SCH ×4 (08:59→20:32)
[2021-05-26] MEDS: INSULIN GLARGINE SOLOSTAR 100 UNITS/ML 3 ML PEN SQ SCH (09:01)
[2021-05-26] MEDS: CLOPIDOGREL BISULFATE 75 MG TAB PO SCH (09:05)
[2021-05-26] MEDS: ASPIRIN 81 MG ECTAB PO SCH (09:05)
[2021-05-26] MEDS: DULoxetine HCL 30 MG CAP PO SCH (09:06)
[2021-05-26] MEDS: FUROSEMIDE 20 MG TAB PO SCH (09:07)
[2021-05-26] MEDS: GABAPENTIN 300 MG CAP PO SCH (09:08)
[2021-05-26] MEDS: lisinopril 20 MG TAB PO SCH (09:08)
[2021-05-26] MEDS: LANSOPRAZOLE 30 MG SOLTAB PO SCH (09:09)
[2021-05-26] MEDS: MAGNESIUM OXIDE 400 MG TAB PO SCH (09:09)
[2021-05-26] MEDS: MULTIVITAMIN TAB PO SCH (09:10)
[2021-05-26] MEDS: METOPROLOL SUCC 50MG EXT REL TAB PO SCH ×2 (09:10→20:26)
[2021-05-26] MEDS: ENOXAPARIN INJ 40 MG/0.4 ML SYR SQ SCH (09:11)
[2021-05-26] MEDS: TOPIRAMATE 50 MG TAB PO SCH ×2 (09:11→20:25)
[2021-05-26] MEDS: POLYETHYLENE (MIRALAX) 17 GM PACK PO SCH (09:11)
[2021-05-26] MEDS: DOCUSATE SODIUM 100 MG CAP PO SCH ×2 (09:11→20:33)
--- NOTE | 2021-05-26 12:01 | Hospitalist Progress Note ---
Date of Service May 26, 2021 Assessment & Plan (1) MRSA bacteremia: (2) Infective endocarditis: Plan: Blood clx 05/14 with MRSA in 2/2 bottles, Repeat Blood clx 05/17 negative. On Vanc for 6 weeks per ID due to infective endocarditis as seen in TTE- 1.3 x 0.6 cm lesion present on the atrial aspect of the anterior mitral valve leaflet consistent with mitral valve endocarditis PICC line placed (3) Severe sepsis: Plan: Secondary to infected wound/osteomyelitis of the left ankle with MRSA bacteremia Sepsis resolved. Plan as above (4) Bone infection of left ankle: Plan: History of bimalleolar fracture of the ankle in March, Status post repair with hardware placement Has infection in the open wound and likely has osteomyelitis which is the source of sepsis S/P Left Below Knee Amputation(Left) performed by Dr Yo on 05/16/21 Ortho recommended to leave this bandage on for 2 weeks. No Post op complication Continue PT/OT Follow up with ortho in 2-3 weeks from the day of surgery Fall precaution (5) Bimalleolar fracture of left ankle: Plan: As above (6) (HFpEF) heart failure with preserved ejection fraction: Plan: Exam with crackles, CXR with pulmonary vasc congestion, on NC Received home dose of lasix this morning Will give a dose of IV lasix later this afternoon Continue daily weight, I and Os, reassess tomorrow (7) Diabetes mellitus, type 2: Plan: Uncontrolled DM, A1c 10.3 and with diabetic neuropathy Pharmacy on board for glycemic management Continue Insulin Glargine and novolog sliding scale (8) Anemia: Plan: likely secondary to sepsis and some blood loss with surgery Hemoglobin dropped to 6.7 and s/p 2 units of blood transfusion during hospital course Currently Hb 7.8. No active bleed, Recheck in am (9) Essential hypertension: Plan: on lisinopril, toprol, lasix Plan: DVT prophylaxis on Lovenox subq CODE STATUS Full Dispo- Anticipate will be medically stable for discharge tomorrow. Needs IV vanc at discharge for 5 weeks, needs rehab. CM following Admission and Anticipated Discharge Date Admission Date: May 14, 2021 Subjective Patient was seen and examined at bedside. States she feels she is not ready to go to the rehab because of breathing and weakness. She states pain is controlled with po oxycodone. Breathing is better this morning. Appetite is okay. No chest pain, fever or chills. No nausea or vomiting. Physical Exam Physical Exam: General:Sitting comfortably in bed, not in distress, on room air HEENT: EOMI, NETTE, MMM Chest: Fair breath sounds with bibasilar crackles CVS: Regular rate and rhythm, normal heart sounds, no murmur Abdomen: Soft, non tender, not distended, normal bowel sounds Neuro: Awake, alert, oriented, conversing well, non focal Extremities: No cyanosis, clubbing or edema. Left BKA covered with dressing Results & Data Results & Data ([facility]) Vital Signs (Past 12 Hours) Vital Signs Temp Pulse Resp BP Pulse Ox 05/26/21 09:04 77 156/78 H 05/26/21 07:11 36.8 C 74 16 152/83 H 98 Laboratory Results Short CBC 05/26/21 Range/Units 05:45 WBC 10.12 (4.8-10.8) K/uL Hgb 7.8 L (12.0-16.0) g/dL Hct 26.1 L (37-47) % Plt Count 388 (130-400) K/uL BMP 05/26/21 05:45 Sodium 138 Potassium 3.6 Chloride 104 Carbon Dioxide 30 BUN 9 Creatinine 0.63 Glucose 131 H Calcium 8.7
[2021-05-26] MEDS: POTASSIUM CHLORIDE CRTAB 20 MEQ TABCR PO SCH (13:22)
--- NOTE | 2021-05-26 13:43 | Pharmacy Report ---
Pharmacy Glycemic Short Note 2 - Date of Service May 26, 2021 - Glycemic Short BSG Results (Last 24 hours): 05/25/21 05/25/21 05/26/21 17:06 20:45 05:45 Glucose 131 H POC Glucose 187 H 194 H 05/26/21 05/26/21 08:09 11:58 Glucose POC Glucose 181 H 203 H OUTPATIENT ANTIDIABETIC REGIMEN: * Basaglar 46 units SQ qAM * Novolog sliding scale * HbA1C = 10.3% (05/15/21) ASSESSMENT: 05/26/21 * BSGs yesterday were 844-132-232-194 mg/dL. Fasting today was 181 mg/dL. * Patient received 30 units of insulin yesterday (12 units of Lantus and 18 units of bolus). * Continue to titrate Lantus by 10% increments for BSG > 160 mg/dL * Continue Novolog as BSGs stable 05/24/21 * BSGs yesterday were [phone] mg/dL. * Patient received 28 units of insulin (8 units of basal and 20 units of bolus). * Patient did not receive scheduled Lantus yesterday due to charting error. * Increase Lantus to 10 units daily. * Continue Novolog 05/19 * BSGs well controlled over last 24 hrs * BSGs did trend up following resumption of diet yesterday. Likely due in part to holding basal insulin dose in the AM for BSGs in the 70s. * Patient was initially NPO this AM for JUAN DAVID but this has been cancelled and diet ordered to resume w/ lunch. Will give Lantus at that time. * Fasting BSG 130 this AM with 5 units basal on board and following receipt of 5 units correctional insulin from HS and 0200 BSG checks. PLAN FOR INPATIENT GLYCEMIC CONTROL: * Hold outpatient oral diabetes medications * Basal insulin * Lantus 12 units SQ qAM (14 units if BSG > 160 mg/dL) * Bolus insulin * NovoLog per scale ACHS * Goal Range: Low 110 mg/dL - High 140 mg/dL * Correction Factor: 20 mg/dL/unit * Nutritional / Prandial insulin per carb ratio of 1 unit per 9 grams CHO consumed
[2021-05-26] MEDS: LEVALBUTEROL HCL 1.25 MG/3 ML NEB NEB PRN (13:45)
[2021-05-26] MEDS ORDERED: FUROSEMIDE 40 MG/4 ML VIAL IV ONE (16:00)
[2021-05-26] MEDS: ATORVASTATIN 40 MG TAB PO SCH (20:25)
[2021-05-26] MEDS: DONEPEZIL HCL 5 MG TAB PO SCH (20:25)
[2021-05-26] MEDS: GABAPENTIN 600 MG TAB PO SCH (20:25)
[2021-05-26] MEDS: MELATONIN 3 MG TAB PO PRN (23:28)
[2021-05-27] MEDS: ACETAMINOPHEN 500 MG TAB PO PRN (02:11)
[2021-05-27 06:04] LABS: Hematocrit (blood only) 26.7 % (37-47)
[2021-05-27 06:26] LABS: BUN Creatinine Ratio 17.7 (10-20); Calcium 8.8 mg/dl (8.5-10.1); Creatinine Clr Calc Pharmacy 95.6 ml/min; Est GFR (Non-African American) 96.6 ml/min; Magnesium 1.8 mg/dl (1.7-2.4); Phosphorus 4.2 mg/dl (2.5-4.9); Potassium 3.9 mmol/L (3.5-5.1)
[2021-05-27 06:29] LABS: Troponin I High Sensitivity 15.4 pg/ml (0-14)
--- NOTE | 2021-05-27 06:35 | Electrocardiogram Report ---
Test Reason : Blood Pressure : / mmHG Vent. Rate : 079 BPM Atrial Rate : 079 BPM P-R Int : 146 ms QRS Dur : 112 ms QT Int : 400 ms P-R-T Axes : 049 016 080 degrees QTc Int : 458 ms Normal sinus rhythm Minimal voltage criteria for LVH, may be normal variant Poor R wave progression, consider anterior [place] vs. lead placement vs. LVH Nonspecific T wave abnormality Abnormal ECG When compared with ECG of 22-MAY-2021 03:01, Left bundle branch block is no longer Present Confirmed by Jayme Joyner ([id number]) on 05/27/2021 6:35:28 AM Referred By: REFERRED SELF Confirmed By:Jayme Joyner
[2021-05-27] MEDS: VANCOMYCIN HCL 750 MG in SODIUM CHLORIDE 0.9% 250 ML IV SCH ×2 (08:35→19:40)
[2021-05-27] MEDS: INSULIN GLARGINE SOLOSTAR 100 UNITS/ML 3 ML PEN SQ SCH (09:21)
[2021-05-27] MEDS: INSULIN ASPART PER UNIT SC SCH ×4 (09:21→21:35)
[2021-05-27] MEDS: TOPIRAMATE 50 MG TAB PO SCH ×2 (09:26→21:26)
[2021-05-27] MEDS: ASPIRIN 81 MG ECTAB PO SCH (09:27)
[2021-05-27] MEDS: lisinopril 20 MG TAB PO SCH (09:27)
[2021-05-27] MEDS: DULoxetine HCL 30 MG CAP PO SCH (09:27)
[2021-05-27] MEDS: MULTIVITAMIN TAB PO SCH (09:27)
[2021-05-27] MEDS: LANSOPRAZOLE 30 MG SOLTAB PO SCH (09:28)
[2021-05-27] MEDS: POLYETHYLENE (MIRALAX) 17 GM PACK PO SCH (09:29)
[2021-05-27] MEDS: CLOPIDOGREL BISULFATE 75 MG TAB PO SCH (09:29)
[2021-05-27] MEDS: GABAPENTIN 300 MG CAP PO SCH (09:30)
[2021-05-27] MEDS: DOCUSATE SODIUM 100 MG CAP PO SCH ×2 (09:30→21:27)
[2021-05-27] MEDS: METOPROLOL SUCC 50MG EXT REL TAB PO SCH ×2 (09:31→21:27)
[2021-05-27] MEDS: MAGNESIUM OXIDE 400 MG TAB PO SCH (09:31)
[2021-05-27] MEDS: POTASSIUM CHLORIDE CRTAB 20 MEQ TABCR PO SCH (10:09)
[2021-05-27] MEDS: FUROSEMIDE 40 MG/4 ML VIAL IV SCH ×2 (10:12→17:12)
[2021-05-27] MEDS: oxyCODONE HCL IR 5 MG TAB (IMMEDIATE RELEASE) PO PRN ×2 (13:29→19:39)
--- NOTE | 2021-05-27 14:12 | Pharmacy Report ---
Pharmacy Glycemic Short Note 2 - Date of Service May 27, 2021 - Glycemic Short BSG Results (Last 24 hours): 05/26/21 05/26/21 05/27/21 16:55 20:22 05:47 Glucose 144 H POC Glucose 228 H 241 H 05/27/21 05/27/21 08:14 12:11 Glucose POC Glucose 193 H 262 H OUTPATIENT ANTIDIABETIC REGIMEN: * Basaglar 46 units SQ qAM * Novolog sliding scale * HbA1C = 10.3% (05/15/21) ASSESSMENT: 05/27/21 * BSGs yesterday were [phone] mg/dL and fasting today is 193 mg/dL. * Per nursing report, patient snacks. * Patient received 44 units of insulin yesterday (12 units of basal and 32 units of bolus insulin). * Continue with titration of basal as glucose in PRP is still slightly elevated at 144 mg/dL. * Tighten Novolog CR slightly. 05/26/21 * BSGs yesterday were [phone] mg/dL. Fasting today was 181 mg/dL. * Patient received 30 units of insulin yesterday (12 units of Lantus and 18 units of bolus). * Continue to titrate Lantus by 10% increments for BSG > 160 mg/dL * Continue Novolog as BSGs stable 05/24/21 * BSGs yesterday were [phone] mg/dL. * Patient received 28 units of insulin (8 units of basal and 20 units of bolus). * Patient did not receive scheduled Lantus yesterday due to charting error. * Increase Lantus to 10 units daily. * Continue Novolog 05/19 * BSGs well controlled over last 24 hrs * BSGs did trend up following resumption of diet yesterday. Likely due in part to holding basal insulin dose in the AM for BSGs in the 70s. * Patient was initially NPO this AM for JUAN DAVID but this has been cancelled and diet ordered to resume w/ lunch. Will give Lantus at that time. * Fasting BSG 130 this AM with 5 units basal on board and following receipt of 5 units correctional insulin from HS and 0200 BSG checks. PLAN FOR INPATIENT GLYCEMIC CONTROL: * Hold outpatient oral diabetes medications * Basal insulin * Lantus 14 units SQ qAM (16 units if BSG > 160 mg/dL) * Bolus insulin * NovoLog per scale ACHS * Goal Range: Low 110 mg/dL - High 140 mg/dL * Correction Factor: 20 mg/dL/unit * Nutritional / Prandial insulin per carb ratio of 1 unit per 8 grams CHO consumed
--- NOTE | 2021-05-27 14:17 | Hospitalist Progress Note ---
Date of Service May 27, 2021 Assessment & Plan (1) MRSA bacteremia: (2) Infective endocarditis: Plan: Blood clx 05/14 with MRSA in 2/2 bottles, Repeat Blood clx 05/17 negative. Discussed with ID today and reviewed last cardiology note- Continue Vanc D1 from negative blood culture 05/17 for infective endocarditis as seen in TTE- 1.3 x 0.6 cm lesion present on the atrial aspect of the anterior mitral valve leaflet consistent with mitral valve endocarditis. Per ID and cardio, reasonable to complete the antibiotic course and repeat echo at the completion for evaluation. We don't have cardiothoracic surgery in house and no need as such at this point per my discussion. Monitor for embolic complications Weekly labs PICC line placed (3) Severe sepsis: Plan: Secondary to infected wound/osteomyelitis of the left ankle with MRSA bacteremia Sepsis resolved. Plan as above (4) Bone infection of left ankle: Plan: History of bimalleolar fracture of the ankle in March, Status post repair with hardware placement Has infection in the open wound and likely has osteomyelitis which is the source of sepsis S/P Left Below Knee Amputation(Left) performed by Dr Yo on 05/16/21 Ortho recommended to leave this bandage on for 2 weeks. No Post op complication Continue PT/OT Follow up with ortho in 2-3 weeks from the day of surgery Fall precaution (5) Bimalleolar fracture of left ankle: Plan: As above (6) (HFpEF) heart failure with preserved ejection fraction: Plan: Exam improved but still with crackles, CXR with pulmonary vasc congestion, on NC Will continue IV lasix for today and reassess tomorrow Continue daily weight, I and Os (7) Diabetes mellitus, type 2: Plan: Uncontrolled DM, A1c 10.3 and with diabetic neuropathy Pharmacy on board for glycemic management Continue Insulin Glargine and novolog sliding scale (8) Anemia: Plan: likely secondary to sepsis and some blood loss with surgery Hemoglobin dropped to 6.7 and s/p 2 units of blood transfusion during hospital course Currently Hb 8. No active bleed, Recheck in am (9) Essential hypertension: Plan: on lisinopril, toprol, lasix Plan: DVT prophylaxis on Lovenox subq Dispo- Anticipate will be medically stable in 1-2 days. Needs IV vanc at discharge for D1, needs rehab. CM following Admission and Anticipated Discharge Date Admission Date: May 14, 2021 Subjective Patient was seen and examined at bedside. No new issues. Breathing is slightly better. Diuresing well. Pain is controlled. No other issues. Physical Exam Physical Exam: General: Lying comfortably in bed, not in distress, on room air HEENT: EOMI, NETTE, MMM Chest: Fair breath sounds with bibasilar crackles CVS: Regular rate and rhythm, normal heart sounds, no murmur Abdomen: Soft, non tender, not distended, normal bowel sounds Neuro: Awake, alert, oriented, conversing well, non focal Extremities: No cyanosis, clubbing or edema. Left BKA covered with dressing Results & Data Results & Data ([facility]) Vital Signs (Past 12 Hours) Vital Signs Temp Pulse Resp BP Pulse Ox 05/27/21 09:26 78 130/75 05/27/21 07:22 36.8 C 79 18 171/92 H 93 Laboratory Results Short CBC 05/27/21 Range/Units 05:47 Hgb 8.0 L (12.0-16.0) g/dL Hct 26.7 L (37-47) % BMP 05/27/21 05:47 Sodium 138 Potassium 3.9 Chloride 105 Carbon Dioxide 29 BUN 11 Creatinine 0.62 Glucose 144 H Calcium 8.8 Medications Administered Current Inpatient Medications Acetaminophen (Acetaminophen 500 Mg Tab) 1,000 mg PO Q8H PRN PRN Reason: mild pain (1,2,3) or Fever Stop: 06/18/21 10:04 Last Admin: 05/27/21 02:11 Dose: 1,000 mg Documented by: Aspirin (Aspirin 81 Mg Ectab) 81 mg PO DAILY [facility]ANTHA Stop: 06/19/21 08:59 Last Admin: 05/27/21 09:27 Dose: 81 mg Documented by: Atorvastatin Calcium (Atorvastatin 40 Mg Tab) 80 mg PO HS SAMANTHA Stop: 06/14/21 20:59 Last Admin: 05/26/21 20:25 Dose: 80 mg Documented by: Clopidogrel Bisulfate (Clopidogrel Bisulfate 75 Mg Tab) 75 mg PO QAM [facility]ANTHA Stop: 06/18/21 08:59 Last Admin: 05/27/21 09:29 Dose: 75 mg Documented by: Docusate Sodium (Docusate Sodium 100 Mg Cap) 100 mg PO BID [facility]ANTHA Stop: 06/17/21 20:59 Last Admin: 05/27/21 09:30 Dose: Not Given Documented by: Donepezil HCl (Donepezil Hcl 5 Mg Tab) 5 mg PO HS [facility] Stop: 06/14/21 20:59 Last Admin: 05/26/21 20:25 Dose: 5 mg Documented by: Duloxetine HCl (Duloxetine Hcl 30 Mg Cap) 90 mg PO QAM [facility] Stop: 06/18/21 08:59 Last Admin: 05/27/21 09:27 Dose: 90 mg Documented by: Enoxaparin Sodium (Enoxaparin Inj 40 Mg/0.4 Ml Syr) [facility] Stop: 06/17/21 11:59 Last Admin: 05/26/21 09:11 Dose: 40 mg Documented by: Furosemide (Furosemide 20 Mg Tab) 60 mg PO DAILY [facility] Stop: 06/16/21 08:59 Last Admin: 05/26/21 09:07 Dose: 60 mg Documented by: Furosemide (Furosemide 40 Mg/4 Ml Vial) 60 mg IV BID17 [facility] Stop: 06/26/21 08:59 Last Admin: 05/27/21 10:12 Dose: 60 mg Documented by: Gabapentin (Gabapentin 300 Mg Cap) 300 mg [facility] Stop: 06/18/21 08:59 Last Admin: 05/27/21 09:30 Dose: 300 mg Documented by: Gabapentin (Gabapentin 600 Mg Tab) 600 mg PO HS [facility] Stop: 06/17/21 20:59 Last Admin: 05/26/21 20:25 Dose: 600 mg Documented by: Heparin Sodium (Beef Lung) (Heparin 10 Unit/Ml 5 Ml Flush) 5 ml FLUSH PRN PRN PRN Reason: Flush Stop: 06/23/21 16:58 Last Admin: 05/27/21 10:13 Dose: 5 ml Documented by: Vancomycin HCl 750 mg/ Sodium (Chloride) 265 mls @ 200 mls/hr IV Q12H [facility] Stop: 06/25/21 07:49 Last Infusion: 05/27/21 10:11 Dose: Infused Documented by: Insulin Aspart (Insulin Aspart Per Unit) 0 units SC ACHS [facility] Stop: 06/18/21 11:59 Last Admin: 05/27/21 13:04 Dose: 11 units Documented by: Insulin Glargine (Insulin Glargine Solostar 100 Units/Ml 3 Ml Pen) 0 units SQ [facility]; Protocol Stop: 06/26/21 08:59 Last Admin: 05/27/21 09:21 Dose: 14 units Documented by: Lansoprazole (Lansoprazole 30 Mg Soltab) 30 mg PO DAILY [facility] Stop: 06/15/21 08:59 Last Admin: 05/27/21 09:28 Dose: 30 mg Documented by: Levalbuterol HCl (Levalbuterol Hcl 1.25 Mg/3 Ml Neb) 1.25 mg NEB Q4H PRN; Protocol PRN Reason: Shortness Of Breath Or Wheezing Stop: 06/24/21 20:29 Last Admin: 05/26/21 13:45 Dose: 1.25 mg Documented by: Lisinopril (Lisinopril 20 Mg Tab) 20 mg PO [facility] Stop: 06/21/21 03:14 Last Admin: 05/27/21 09:27 Dose: 20 mg Documented by: Magnesium Oxide (Magnesium Oxide 400 Mg Tab) 400 mg PO [facility] Stop: 06/18/21 08:59 Last Admin: 05/27/21 09:31 Dose: 400 mg Documented by: Melatonin (Melatonin 3 Mg Tab) 3 mg PO HS PRN PRN Reason: Sleep Stop: 06/23/21 21:18 Last Admin: 05/26/21 23:28 Dose: 3 mg Documented by: Metoclopramide HCl (Metoclopramide Hcl Inj 5 Mg/Ml 2 Ml Vial) 10 mg IV Q6H PRN PRN Reason: Nausea And Vomiting Stop: 06/15/21 13:32 Metoprolol Succinate (Metoprolol Succ 50mg Ext Rel Tab) 100 mg PO [facility] Stop: 06/16/21 10:59 Last Admin: 05/27/21 09:31 Dose: 100 mg Documented by: Metoprolol Succinate (Metoprolol Succ 50mg Ext Rel Tab) 50 mg PO [facility] Stop: 06/16/21 20:59 Last Admin: 05/26/21 20:26 Dose: 50 mg Documented by: Miscellaneous Information (Vancomycin Consult Active) 1 ea N/A UD PRN PRN Reason: Consult Stop: 06/13/21 19:56 Miscellaneous Information (Pharmacy Glycemic Mgmt Consult) 1 ea N/A UD PRN PRN Reason: Consult Stop: 06/13/21 23:07 Multivitamins (Multivitamin Tab) 1 tab PO QAM [facility] Stop: 06/18/21 08:59 Last Admin: 05/27/21 09:27 Dose: 1 tab Documented by: Naloxone HCl (Naloxone Hcl 0.4 Mg/1 Ml Vial/Carp) 0.1 mg IV Q5M PRN PRN Reason: Oversedation/Resp Depression Stop: 06/15/21 13:32 Ondansetron HCl (Ondansetron Inj 2 Mg/Ml 2 Ml Vial) 4 mg IV Q6H PRN PRN Reason: Nausea And Vomiting Stop: 06/15/21 13:32 Oxycodone HCl (Oxycodone Hcl Ir 5 Mg Tab (Immediate Release)) 5 - 10 mg PO QID PRN PRN Reason: Pain Stop: 06/07/21 22:59 Last Admin: 05/27/21 13:29 Dose: 10 mg Documented by: Polyethylene Glycol (Polyethylene (Miralax) 17 Gm Pack) 17 gm PO DAILY [facility] Stop: 06/16/21 08:59 Last Admin: 05/27/21 09:29 Dose: Not Given Documented by: Potassium Chloride (Potassium Chloride Crtab 20 Meq Tabcr) 40 meq PO DAILY [facility] Stop: 06/25/21 12:29 Last Admin: 05/27/21 10:09 Dose: 40 meq Documented by: Sennosides (Sennosides 8.8 Mg/5 Ml Udc) 17.2 mg PO HS PRN PRN Reason: Constipation Stop: 06/14/21 09:41 Topiramate (Topiramate 50 Mg Tab) 50 mg PO BID [facility] Stop: 06/14/21 08:59 Last Admin: 05/27/21 09:26 Dose: 50 mg Documented by:
[2021-05-27] MEDS: MELATONIN 3 MG TAB PO SCH (21:19)
[2021-05-27] MEDS: DONEPEZIL HCL 5 MG TAB PO SCH (21:26)
[2021-05-27] MEDS: ATORVASTATIN 40 MG TAB PO SCH (21:26)
[2021-05-27] MEDS: GABAPENTIN 600 MG TAB PO SCH (21:27)
[2021-05-27] MEDS ORDERED: HYDROmorphone INJ 0.5 MG/0.5 ML SYR IV STA (23:02)
[2021-05-28] MEDS: oxyCODONE HCL IR 5 MG TAB (IMMEDIATE RELEASE) PO PRN ×4 (03:29→22:34)
[2021-05-28] MEDS: VANCOMYCIN HCL 750 MG in SODIUM CHLORIDE 0.9% 250 ML IV SCH ×2 (07:45→20:53)
[2021-05-28] MEDS: ASPIRIN 81 MG ECTAB PO SCH (09:17)
[2021-05-28] MEDS: DULoxetine HCL 30 MG CAP PO SCH (09:17)
[2021-05-28] MEDS: TOPIRAMATE 50 MG TAB PO SCH ×2 (09:17→20:58)
[2021-05-28] MEDS: lisinopril 20 MG TAB PO SCH (09:18)
[2021-05-28] MEDS: MULTIVITAMIN TAB PO SCH (09:18)
[2021-05-28] MEDS: MAGNESIUM OXIDE 400 MG TAB PO SCH (09:18)
[2021-05-28] MEDS: CLOPIDOGREL BISULFATE 75 MG TAB PO SCH (09:19)
[2021-05-28] MEDS: GABAPENTIN 300 MG CAP PO SCH (09:19)
[2021-05-28] MEDS: METOPROLOL SUCC 50MG EXT REL TAB PO SCH ×2 (09:19→20:58)
[2021-05-28] MEDS: FUROSEMIDE 40 MG/4 ML VIAL IV SCH ×2 (09:20→16:21)
[2021-05-28] MEDS: ENOXAPARIN INJ 40 MG/0.4 ML SYR SQ SCH (09:22)
[2021-05-28] MEDS: INSULIN GLARGINE SOLOSTAR 100 UNITS/ML 3 ML PEN SQ SCH (09:23)
[2021-05-28] MEDS: DOCUSATE SODIUM 100 MG CAP PO SCH ×2 (09:24→20:59)
[2021-05-28] MEDS: LANSOPRAZOLE 30 MG SOLTAB PO SCH (09:24)
[2021-05-28] MEDS: POLYETHYLENE (MIRALAX) 17 GM PACK PO SCH (09:24)
[2021-05-28] MEDS: INSULIN ASPART PER UNIT SC SCH ×4 (09:29→20:57)
[2021-05-28] MEDS: POTASSIUM CHLORIDE CRTAB 20 MEQ TABCR PO SCH (09:31)
[2021-05-28 11:29] LABS: Hematocrit (blood only) 26.1 % (37-47); Hemoglobin 7.8 g/dL (12.0-16.0)
[2021-05-28 11:56] LABS: BUN Creatinine Ratio 20.3 (10-20); Calcium 8.8 mg/dl (8.5-10.1); Creatinine Clr Calc Pharmacy 79.1 ml/min; Est GFR (African American) 108.1 ml/min; Est GFR (Non-African American) 93.3 ml/min; Potassium 3.6 mmol/L (3.5-5.1)
[2021-05-28] MEDS ORDERED: INSULIN GLARGINE SOLOSTAR 100 UNITS/ML 3 ML PEN SQ ONE (12:15)
--- NOTE | 2021-05-28 12:23 | Hospitalist Progress Note ---
Date of Service May 28, 2021 Assessment & Plan (1) MRSA bacteremia: (2) Infective endocarditis: Plan: Blood clx 05/14 with MRSA in 2/2 bottles, Repeat Blood clx 05/17 negative. Discussed with ID today and reviewed last cardiology note- Continue Vanc D1 from negative blood culture 05/17 for infective endocarditis as seen in TTE- 1.3 x 0.6 cm lesion present on the atrial aspect of the anterior mitral valve leaflet consistent with mitral valve endocarditis. Per ID and cardio, reasonable to complete the antibiotic course and repeat echo at the completion for evaluation. We don't have cardiothoracic surgery in house and no need as such at this point per my discussion. Monitor for embolic complications Weekly labs PICC line placed (3) Severe sepsis: Plan: Secondary to infected wound/osteomyelitis of the left ankle with MRSA bacteremia Sepsis resolved. Plan as above (4) Bone infection of left ankle: Plan: History of bimalleolar fracture of the ankle in March, Status post repair with hardware placement Has infection in the open wound and likely has osteomyelitis which is the source of sepsis S/P Left Below Knee Amputation(Left) performed by Dr Yo on 05/16/21 Ortho recommended to leave this bandage on for 2 weeks. No Post op complication Continue PT/OT Follow up with ortho in 2-3 weeks from the day of surgery Fall precaution (5) Bimalleolar fracture of left ankle: Plan: As above (6) (HFpEF) heart failure with preserved ejection fraction: Plan: Exam improved but still with crackles, CXR with pulmonary vasc congestion, on NC Will continue IV lasix and reassess daily clinically and labwise Continue daily weight, I and Os (7) Diabetes mellitus, type 2: Plan: Uncontrolled DM, A1c 10.3 and with diabetic neuropathy Pharmacy on board for glycemic management Continue Insulin Glargine and novolog sliding scale (8) Anemia: Plan: likely secondary to sepsis and some blood loss with surgery Hemoglobin dropped to 6.7 and s/p 2 units of blood transfusion during hospital course Currently Hb 8. No active bleed, Recheck intermittently (9) Essential hypertension: Plan: on lisinopril, toprol, lasix Plan: DVT prophylaxis on Lovenox subq Dispo- Patient needs rehab and will have a bed available on Monday per CM. Needs IV vanc at discharge for D1 Admission and Anticipated Discharge Date Admission Date: May 14, 2021 Subjective Patient was seen and examined at bedside. No acute overnight events. Continues with pain at the BKA site- phantom pain but already on neurontin. Feels tired. Sleep still an issue. Denies any chest pain, shortness of breath, nausea, vomiting. Discussed that she will have a bed at the rehab for Monday. Physical Exam Physical Exam: General: Sitting comfortably in bed, not in distress, on room air HEENT: EOMI, NETTE, MMM Chest: Fair breath sounds with bibasilar crackles CVS: Regular rate and rhythm, normal heart sounds, no murmur Abdomen: Soft, non tender, not distended, normal bowel sounds Neuro: Awake, alert, oriented, conversing well, non focal Extremities: No cyanosis, clubbing or edema. Left BKA covered with dressing Results & Data Results & Data ([facility]) Vital Signs (Past 12 Hours) Vital Signs Temp Pulse Resp BP Pulse Ox 05/28/21 08:28 36.8 C 75 16 131/72 94 Laboratory Results Short CBC 05/14/21 05/15/21 05/15/21 Range/Units 18:10 04:55 10:47 Hgb (12.0-16.0) g/dL Hct (37-47) % Carbon Dioxide 25 18 L 20 L (21-32) mmol/L 05/16/21 05/16/21 05/16/21 Range/Units 04:14 10:55 20:36 Hgb (12.0-16.0) g/dL Hct (37-47) % Carbon Dioxide 21 21 21 (21-32) mmol/L 05/17/21 05/18/21 05/19/21 Range/Units 05:05 05:13 04:54 Hgb (12.0-16.0) g/dL Hct (37-47) % Carbon Dioxide 21 24 23 (21-32) mmol/L 05/20/21 05/21/21 05/22/21 Range/Units 05:31 05:37 03:32 Hgb (12.0-16.0) g/dL Hct (37-47) % Carbon Dioxide 25 24 25 (21-32) mmol/L 05/22/21 05/26/21 05/27/21 Range/Units 07:16 05:45 05:47 Hgb (12.0-16.0) g/dL Hct (37-47) % Carbon Dioxide 25 30 29 (21-32) mmol/L 05/28/21 05/28/21 Range/Units 11:07 11:07 Hgb 7.8 L (12.0-16.0) g/dL Hct 26.1 L (37-47) % Carbon Dioxide 31 (21-32) mmol/L [facility] 05/28/21 11:07 Sodium 135 L Potassium 3.6 Chloride 99 Carbon Dioxide 31 BUN 14 Creatinine 0.69 Glucose 229 H Calcium 8.8 Medications Administered Current Inpatient Medications Acetaminophen (Acetaminophen 500 Mg Tab) 1,000 mg PO Q8H PRN PRN Reason: mild pain (1,2,3) or Fever Stop: 06/18/21 10:04 Last Admin: 05/27/21 02:11 Dose: 1,000 mg Documented by: Aspirin (Aspirin 81 Mg Ectab) 81 mg PO DAILY [facility] Stop: 06/19/21 08:59 Last Admin: 05/28/21 09:17 Dose: 81 mg Documented by: Atorvastatin Calcium (Atorvastatin 40 Mg Tab) 80 mg PO [facility] Stop: 06/14/21 20:59 Last Admin: 05/27/21 21:26 Dose: 80 mg Documented by: Clopidogrel Bisulfate (Clopidogrel Bisulfate 75 Mg Tab) [facility] Stop: 06/18/21 08:59 Last Admin: 05/28/21 09:19 Dose: 75 mg Documented by: Docusate Sodium (Docusate Sodium 100 Mg Cap) 100 mg PO BID [facility] Stop: 06/17/21 20:59 Last Admin: 05/28/21 09:24 Dose: Not Given Documented by: Donepezil HCl (Donepezil Hcl 5 Mg Tab) 5 mg PO [facility] Stop: 06/14/21 20:59 Last Admin: 05/27/21 21:26 Dose: 5 mg Documented by: Duloxetine HCl (Duloxetine Hcl 30 Mg Cap) 90 [facility] Stop: 06/18/21 08:59 Last Admin: 05/28/21 09:17 Dose: 90 mg Documented by: Enoxaparin Sodium (Enoxaparin Inj 40 Mg/0.4 Ml Syr) 40 mg SQ QAM [facility] Stop: 06/17/21 11:59 Last Admin: 05/28/21 09:22 Dose: 40 mg Documented by: Furosemide (Furosemide 20 Mg Tab) 60 mg PO DAILY [facility] Stop: 06/16/21 08:59 Last Admin: 05/26/21 09:07 Dose: 60 mg Documented by: Furosemide (Furosemide 40 Mg/4 Ml Vial) 60 mg IV BID17 [facility] Stop: 06/26/21 08:59 Last Admin: 05/28/21 09:20 Dose: 60 mg Documented by: Gabapentin (Gabapentin 300 Mg Cap) 300 mg PO QAM [facility] Stop: 06/18/21 08:59 Last Admin: 05/28/21 09:19 Dose: 300 mg Documented by: Gabapentin (Gabapentin 600 Mg Tab) 600 mg PO HS [facility] Stop: 06/17/21 20:59 Last Admin: 05/27/21 21:27 Dose: 600 mg Documented by: Heparin Sodium (Beef Lung) (Heparin 10 Unit/Ml 5 Ml Flush) 5 ml FLUSH PRN PRN PRN Reason: Flush Stop: 06/23/21 16:58 Last Admin: 05/27/21 23:11 Dose: 5 ml Documented by: Vancomycin HCl 750 mg/ Sodium (Chloride) 265 mls @ 200 mls/hr IV Q12H [facility] Stop: 06/25/21 07:49 Last Infusion: 05/28/21 09:15 Dose: Infused Documented by: Insulin Aspart (Insulin Aspart Per Unit) 0 units SC ACHS [facility] Stop: 06/18/21 11:59 Last Admin: 05/28/21 09:29 Dose: 6 units Documented by: Insulin Glargine (Insulin Glargine Solostar 100 Units/Ml 3 Ml Pen) [facility]; Protocol Stop: 06/26/21 08:59 Last Admin: 05/28/21 09:23 Dose: 16 units Documented by: Lansoprazole (Lansoprazole 30 Mg Soltab) 30 mg PO DAILY [facility] Stop: 06/15/21 08:59 Last Admin: 05/28/21 09:24 Dose: 30 mg Documented by: Levalbuterol HCl (Levalbuterol Hcl 1.25 Mg/3 Ml Neb) 1.25 mg NEB Q4H PRN; Protocol PRN Reason: Shortness Of Breath Or Wheezing Stop: 06/24/21 20:29 Last Admin: 05/26/21 13:45 Dose: 1.25 mg Documented by: Lisinopril (Lisinopril 20 Mg Tab) 20 mg PO [facility] Stop: 06/21/21 03:14 Last Admin: 05/28/21 09:18 Dose: 20 mg Documented by: Magnesium Oxide (Magnesium Oxide 400 Mg Tab) 400 mg PO [facility] Stop: 06/18/21 08:59 Last Admin: 05/28/21 09:18 Dose: 400 mg Documented by: Melatonin (Melatonin 3 Mg Tab) 6 mg PO [facility] Stop: 06/26/21 20:59 Last Admin: 05/27/21 21:19 Dose: 6 mg Documented by: Metoclopramide HCl (Metoclopramide Hcl Inj 5 Mg/Ml 2 Ml Vial) 10 mg IV Q6H PRN PRN Reason: Nausea And Vomiting Stop: 06/15/21 13:32 Metoprolol Succinate (Metoprolol Succ 50mg Ext Rel Tab) 100 mg PO [facility] Stop: 06/16/21 10:59 Last Admin: 05/28/21 09:19 Dose: 100 mg Documented by: Metoprolol Succinate (Metoprolol Succ 50mg Ext Rel Tab) 50 mg PO [facility] Stop: 06/16/21 20:59 Last Admin: 05/27/21 21:27 Dose: 50 mg Documented by: Miscellaneous Information (Vancomycin Consult Active) 1 ea N/A UD PRN PRN Reason: Consult Stop: 06/13/21 19:56 Miscellaneous Information (Pharmacy Glycemic Mgmt Consult) 1 ea N/A UD PRN PRN Reason: Consult Stop: 06/13/21 23:07 Multivitamins (Multivitamin Tab) 1 tab PO [facility] Stop: 06/18/21 08:59 Last Admin: 05/28/21 09:18 Dose: 1 tab Documented by: Naloxone HCl (Naloxone Hcl 0.4 Mg/1 Ml Vial/Carp) 0.1 mg IV Q5M PRN PRN Reason: Oversedation/Resp Depression Stop: 06/15/21 13:32 Ondansetron HCl (Ondansetron Inj 2 Mg/Ml 2 Ml Vial) 4 mg IV Q6H PRN PRN Reason: Nausea And Vomiting Stop: 06/15/21 13:32 Oxycodone HCl (Oxycodone Hcl Ir 5 Mg Tab (Immediate Release)) 5 - 10 mg PO QID PRN PRN Reason: Pain Stop: 06/07/21 22:59 Last Admin: 05/28/21 10:27 Dose: 10 mg Documented by: Polyethylene Glycol (Polyethylene (Miralax) 17 Gm Pack) 17 gm PO DAILY [facility] Stop: 06/16/21 08:59 Last Admin: 05/28/21 09:24 Dose: Not Given Documented by: Potassium Chloride (Potassium Chloride Crtab 20 Meq Tabcr) 40 meq PO DAILY [facility] Stop: 06/25/21 12:29 Last Admin: 05/28/21 09:31 Dose: 40 meq Documented by: Sennosides (Sennosides 8.8 Mg/5 Ml Udc) 17.2 mg PO HS PRN PRN Reason: Constipation Stop: 06/14/21 09:41 Topiramate (Topiramate 50 Mg Tab) 50 mg PO BID [facility] Stop: 06/14/21 08:59 Last Admin: 05/28/21 09:17 Dose: 50 mg Documented by:
--- NOTE | 2021-05-28 14:13 | Pharmacy Report ---
Pharmacy Glycemic Short Note 2 - Date of Service May 28, 2021 - Glycemic Short BSG Results (Last 24 hours): 05/27/21 05/27/21 05/28/21 17:21 20:39 08:02 Glucose POC Glucose 142 H 173 H 246 H 05/28/21 05/28/21 11:07 11:51 Glucose 229 H POC Glucose 241 H OUTPATIENT ANTIDIABETIC REGIMEN: * Basaglar 46 units SQ qAM * Novolog sliding scale * HbA1C = 10.3% (05/15/21) ASSESSMENT: 05/28/21: * Rizwana received 40 units of insulin yesterday with majority of BSGs above goal: 193, 262, 142, 173 mg/dL * Fasting BSG of 246 mg/dL is above goal. Insulin regimen is bolus heavy - will continue to titrate basal insulin. * Tighten CF and CR - no improvement in BSG from AM to lunch despite patient not eating carbohydrates. 05/27/21 * BSGs yesterday were [phone] mg/dL and fasting today is 193 mg/dL. * Per nursing report, patient snacks. * Patient received 44 units of insulin yesterday (12 units of basal and 32 units of bolus insulin). * Continue with titration of basal as glucose in PRP is still slightly elevated at 144 mg/dL. * Tighten Novolog CR slightly. 05/26/21 * BSGs yesterday were [phone] mg/dL. Fasting today was 181 mg/dL. * Patient received 30 units of insulin yesterday (12 units of Lantus and 18 units of bolus). * Continue to titrate Lantus by 10% increments for BSG > 160 mg/dL * Continue Novolog as BSGs stable 05/24/21 * BSGs yesterday were [phone] mg/dL. * Patient received 28 units of insulin (8 units of basal and 20 units of bolus). * Patient did not receive scheduled Lantus yesterday due to charting error. * Increase Lantus to 10 units daily. * Continue Novolog 05/19 * BSGs well controlled over last 24 hrs * BSGs did trend up following resumption of diet yesterday. Likely due in part to holding basal insulin dose in the AM for BSGs in the 70s. * Patient was initially NPO this AM for JUAN DAVID but this has been cancelled and diet ordered to resume w/ lunch. Will give Lantus at that time. * Fasting BSG 130 this AM with 5 units basal on board and following receipt of 5 units correctional insulin from HS and 0200 BSG checks. PLAN FOR INPATIENT GLYCEMIC CONTROL: * Hold outpatient oral diabetes medications * Basal insulin * Lantus 14 -16 units SQ qAM (16 units if BSG > 160 mg/dL) * Additional 5 units given with lunch * Bolus insulin * NovoLog per scale ACHS * Goal Range: Low 110 mg/dL - High 140 mg/dL * Correction Factor: 15 mg/dL/unit * Nutritional / Prandial insulin per carb ratio of 1 unit per 7 grams CHO consumed
--- NOTE | 2021-05-28 19:24 | XRay Report ---
XR foot RT min 3V routine HISTORY: 60 years-old Female right ankle and foot pain with erythema acute pain and swelling of the right foot and ankle COMPARISON: None TECHNIQUE: 3 views of the right foot FINDINGS: ORIF hardware of the distal tibia and fibula. The mineralized appearance the bones. Spurring of the c alcaneus. Mild to moderate multifocal osteoarthritis. Limited AP view secondary to positioning. No ac benjamin fracture, dislocation, osseous erosion or opaque foreign body. Diffuse soft tissue swelling, nota irena within the dorsal forefoot. IMPRESSION: Soft tissue swelling without acute fracture or dislocation. ACT 112: Negative or not required by law. The above report was generated using voice recognition software. It may contain grammatical, syntax o r spelling errors. Electronically signed by: Alexi Wu M.D. 05/28/2021 7:23 PM
[2021-05-28] MEDS: DONEPEZIL HCL 5 MG TAB PO SCH (20:55)
[2021-05-28] MEDS: ATORVASTATIN 40 MG TAB PO SCH (20:55)
[2021-05-28] MEDS: GABAPENTIN 600 MG TAB PO SCH (20:56)
[2021-05-28] MEDS: MELATONIN 3 MG TAB PO SCH (20:57)
[2021-05-28] MEDS: DICLOFENAC SOD 1% GEL 100 GM TUBE EXT SCH (21:04)
[2021-05-28] MEDS: ACETAMINOPHEN 500 MG TAB PO PRN (21:04)
[2021-05-29] MEDS: ACETAMINOPHEN 500 MG TAB PO PRN ×2 (04:35→20:40)
[2021-05-29] MEDS: oxyCODONE HCL IR 5 MG TAB (IMMEDIATE RELEASE) PO PRN ×2 (04:35→17:54)
[2021-05-29 06:42] LABS: BUN Creatinine Ratio 22.1 (10-20); C Reactive Protein 2.75 mg/dl (0-0.5); Calcium 8.9 mg/dl (8.5-10.1); Creatinine Clr Calc Pharmacy 70.9 ml/min; Est GFR (African American) 95.9 ml/min; Est GFR (Non-African American) 82.8 ml/min; Potassium 3.6 mmol/L (3.5-5.1); Uric Acid 4.1 mg/dl (2.6-7.2)
[2021-05-29] MEDS: VANCOMYCIN HCL 750 MG in SODIUM CHLORIDE 0.9% 250 ML IV SCH ×2 (07:40→20:37)
[2021-05-29] MEDS: TOPIRAMATE 50 MG TAB PO SCH ×2 (07:44→20:50)
[2021-05-29] MEDS: MAGNESIUM OXIDE 400 MG TAB PO SCH (07:44)
[2021-05-29] MEDS: CLOPIDOGREL BISULFATE 75 MG TAB PO SCH (07:45)
[2021-05-29] MEDS: DULoxetine HCL 30 MG CAP PO SCH (07:45)
[2021-05-29] MEDS: MULTIVITAMIN TAB PO SCH (07:45)
[2021-05-29] MEDS: LANSOPRAZOLE 30 MG SOLTAB PO SCH (07:45)
[2021-05-29] MEDS: ASPIRIN 81 MG ECTAB PO SCH (07:46)
[2021-05-29] MEDS: DICLOFENAC SOD 1% GEL 100 GM TUBE EXT SCH ×3 (07:47→20:50)
[2021-05-29] MEDS: ENOXAPARIN INJ 40 MG/0.4 ML SYR SQ SCH (07:49)
[2021-05-29] MEDS: FUROSEMIDE 40 MG/4 ML VIAL IV SCH ×2 (07:51→17:47)
[2021-05-29] MEDS: lisinopril 20 MG TAB PO SCH (07:52)
[2021-05-29] MEDS: METOPROLOL SUCC 50MG EXT REL TAB PO SCH ×2 (07:52→20:52)
[2021-05-29] MEDS: POLYETHYLENE (MIRALAX) 17 GM PACK PO SCH (07:52)
[2021-05-29] MEDS: DOCUSATE SODIUM 100 MG CAP PO SCH ×2 (07:52→20:49)
[2021-05-29] MEDS ORDERED: INSULIN GLARGINE SOLOSTAR 100 UNITS/ML 3 ML PEN SQ SCH (09:00)
[2021-05-29] MEDS: POTASSIUM CHLORIDE CRTAB 20 MEQ TABCR PO SCH (09:20)
[2021-05-29] MEDS: GABAPENTIN 300 MG CAP PO SCH (09:20)
[2021-05-29] MEDS: INSULIN GLARGINE SOLOSTAR 100 UNITS/ML 3 ML PEN SQ SCH (09:20)
--- NOTE | 2021-05-29 09:28 | Progress Notes ---
DATE OF SERVICE: 05/29/2021. SUBJECTIVE: A 60-year-old female, now 13 days out from a left below-knee amputation for infection of her ankle. She seems to be doing much better. Still complaining of some pain. No other real compl aints. OBJECTIVE: VITAL SIGNS: Temperature 36.8. Vital signs are stable. EXTREMITIES: Physical examination of left leg reveals the dressing to be clean, dry and intact. No significant drainage. LABORATORY DATA: No new labs. ASSESSMENT: A 60-year-old female, 13 days out from a left below-knee amputation for a chronic ankle infection with sepsis. Sepsis seems to be resolved. PLAN: We are going to continue just routine wound care of the left leg. I will remove this dressing likely in the next couple of days before she is discharged. She apparently need 6 weeks of IV antib iotics for her sepsis and apparent endocarditis. No need for further antibiotics from her wound on h er leg from our standpoint. Just routine wound care. Any orthopedic questions can be directed to me at [phone]. Job ID: [id number]
[2021-05-29] MEDS: INSULIN ASPART PER UNIT SC SCH ×4 (09:30→21:00)
[2021-05-29] MEDS ORDERED: INSULIN GLARGINE SOLOSTAR 100 UNITS/ML 3 ML PEN SQ ONE (13:00)
--- NOTE | 2021-05-29 13:06 | Pharmacy Report ---
Pharmacy Glycemic Short Note 2 - Date of Service May 29, 2021 - Glycemic Short BSG Results (Last 24 hours): 05/28/21 05/28/21 05/29/21 16:56 20:28 05:19 Glucose 202 H POC Glucose 185 H 146 H 05/29/21 05/29/21 08:23 12:21 Glucose POC Glucose 256 H 285 H OUTPATIENT ANTIDIABETIC REGIMEN: * Basaglar 46 units SQ qAM * Novolog sliding scale * HbA1C = 10.3% (05/15/21) ASSESSMENT: 05/29/21: * BSGs remain elevated, ranging 146-246 mg/dL yesterday * Received 52 units of insulin yesterday (21 units of basal and 31 units of prandial/correctional bolus) * Fasting BSG of 256 mg/dL this morning * Based on prior admission data, patient has had increased insulin requirements at times * Will increase basal and tighten carb ratio today 05/28/21: * Rizwana received 40 units of insulin yesterday with majority of BSGs above goal: 193, 262, 142, 173 mg/dL * Fasting BSG of 246 mg/dL is above goal. Insulin regimen is bolus heavy - will continue to titrate basal insulin. * Tighten CF and CR - no improvement in BSG from AM to lunch despite patient not eating carbohydrates. 05/27/21 * BSGs yesterday were [phone] mg/dL and fasting today is 193 mg/dL. * Per nursing report, patient snacks. * Patient received 44 units of insulin yesterday (12 units of basal and 32 units of bolus insulin). * Continue with titration of basal as glucose in PRP is still slightly elevated at 144 mg/dL. * Tighten Novolog CR slightly. 05/19 * BSGs well controlled over last 24 hrs * BSGs did trend up following resumption of diet yesterday. Likely due in part to holding basal insulin dose in the AM for BSGs in the 70s. * Patient was initially NPO this AM for JUAN DAVID but this has been cancelled and diet ordered to resume w/ lunch. Will give Lantus at that time. * Fasting BSG 130 this AM with 5 units basal on board and following receipt of 5 units correctional insulin from HS and 0200 BSG checks. PLAN FOR INPATIENT GLYCEMIC CONTROL: * Hold outpatient oral diabetes medications * Basal insulin * Lantus 25 units SC x 1 this morning, additional 5 units of Lantus given with lunch * Bolus insulin * NovoLog per scale ACHS * Goal Range: Low 110 mg/dL - High 140 mg/dL * Correction Factor: 20 mg/dL/unit * Nutritional / Prandial insulin per carb ratio of 1 unit per 6 grams CHO consumed
--- NOTE | 2021-05-29 17:06 | Hospitalist Progress Note ---
Date of Service May 29, 2021 Assessment & Plan (1) MRSA bacteremia: (2) Infective endocarditis: Plan: Blood clx 05/14 with MRSA in 2/2 bottles, Repeat Blood clx 05/17 negative. Seen by ID and cardiology Continue Vanc for 6 weeks from negative blood culture 05/17 for infective endocarditis as seen in TTE- 1.3 x 0.6 cm lesion present on the atrial aspect of the anterior mitral valve leaflet consistent with mitral valve endocarditis along with moderate MR Plan to repeat echo at the completion for evaluation. Monitor for embolic complications Weekly labs while on antibiotics PICC line placed (3) Severe sepsis: Plan: Secondary to infected wound/osteomyelitis of the left ankle with MRSA bacteremia Sepsis resolved. Plan as above (4) Bone infection of left ankle: Plan: History of bimalleolar fracture of the ankle in March, Status post repair with hardware placement Has infection in the open wound and likely has osteomyelitis which is the source of sepsis S/P Left BKA performed by Dr Yo on 05/16/21 Seen by ortho- dressing removal prior to discharge, only local wound care (5) Bimalleolar fracture of left ankle: Plan: As above (6) (HFpEF) heart failure with preserved ejection fraction: Plan: Exam improved but still with crackles, CXR with pulmonary vasc congestion, on NC Will continue IV lasix and reassess daily clinically and labwise Continue daily weight, I and Os (7) Diabetes mellitus, type 2: Plan: Uncontrolled DM, A1c 10.3 and with diabetic neuropathy Pharmacy on board for glycemic management Continue Insulin Glargine and novolog sliding scale (8) Anemia: Plan: likely secondary to sepsis and some blood loss with surgery Hemoglobin dropped to 6.7 and s/p 2 units of blood transfusion during hospital course Currently Hb 8. No active bleed, Recheck intermittently (9) Essential hypertension: Plan: on lisinopril, toprol, lasix Plan: DVT prophylaxis on Lovenox subq Dispo- Patient needs rehab and will have a bed available on Monday per CM. Needs IV vanc at discharge for Admission and Anticipated Discharge Date Admission Date: May 14, 2021 Subjective Seen and examined at bedside. Sleeping. Denies any new issues. No fever, chills, nausea, vomiting. Physical Exam Physical Exam: General: Sleeping in bed, not in distress, on NC HEENT: EOMI, NETTE, MMM Chest: Fair breath sounds bilaterally CVS: Regular rate and rhythm, normal heart sounds, no murmur Abdomen: Soft, non tender, not distended, normal bowel sounds Neuro: Awake, alert, oriented, conversing well, non focal Extremities: No cyanosis, clubbing. Rt pedal edema, erythema of toes improved. Left BKA covered with dressing Results & Data Results & Data ([facility]) Vital Signs (Past 12 Hours) Vital Signs Temp Pulse Resp BP Pulse Ox 05/29/21 07:54 36.8 C 81 16 150/70 H 91 Laboratory Results BMP 05/29/21 05:19 Sodium 138 Potassium 3.6 Chloride 102 Carbon Dioxide 30 BUN 17 Creatinine 0.77 Glucose 202 H Calcium 8.9 Medications Administered Current Inpatient Medications Acetaminophen (Acetaminophen 500 Mg Tab) 1,000 mg PO Q8H PRN PRN Reason: mild pain (1,2,3) or Fever Stop: 06/18/21 10:04 Last Admin: 05/29/21 04:35 Dose: 1,000 mg Documented by: Aspirin (Aspirin 81 Mg Ectab) 81 mg PO DAILY SAMANTHA Stop: 06/19/21 08:59 Last Admin: 05/29/21 07:46 Dose: 81 mg Documented by: Atorvastatin Calcium (Atorvastatin 40 Mg Tab) 80 mg PO HS SAMANTHA Stop: 06/14/21 20:59 Last Admin: 05/28/21 20:55 Dose: 80 mg Documented by: Clopidogrel Bisulfate (Clopidogrel Bisulfate 75 Mg Tab) 75 mg PO QAM SAMANTHA Stop: 06/18/21 08:59 Last Admin: 05/29/21 07:45 Dose: 75 mg Documented by: Diclofenac Sodium (Diclofenac Sod 1% Gel 100 Gm Tube) 2 gm EXT TID SAMANTHA Stop: 06/27/21 20:59 Last Admin: 05/29/21 14:16 Dose: 2 gm Documented by: Docusate Sodium (Docusate Sodium 100 Mg Cap) 100 mg PO BID SAMANTHA Stop: 06/17/21 20:59 Last Admin: 05/29/21 07:52 Dose: Not Given Documented by: Donepezil HCl (Donepezil Hcl 5 Mg Tab) 5 mg PO HS SAMANTHA Stop: 06/14/21 20:59 Last Admin: 05/28/21 20:55 Dose: 5 mg Documented by: Duloxetine HCl (Duloxetine Hcl 30 Mg Cap) 90 mg PO QAM [facility] Stop: 06/18/21 08:59 Last Admin: 05/29/21 07:45 Dose: 90 mg Documented by: Enoxaparin Sodium (Enoxaparin Inj 40 Mg/0.4 Ml Syr) 40 mg SQ QAM [facility] Stop: 06/17/21 11:59 Last Admin: 05/29/21 07:49 Dose: 40 mg Documented by: Furosemide (Furosemide 20 Mg Tab) 60 mg PO DAILY SAMANTHA Stop: 06/16/21 08:59 Last Admin: 05/26/21 09:07 Dose: 60 mg Documented by: Furosemide (Furosemide 40 Mg/4 Ml Vial) 60 mg IV BID17 SAMANTHA Stop: 06/26/21 08:59 Last Admin: 05/29/21 07:51 Dose: 60 mg Documented by: Gabapentin (Gabapentin 600 Mg Tab) 600 mg PO HS [facility] Stop: 06/17/21 20:59 Last Admin: 05/28/21 20:56 Dose: 600 mg Documented by: Gabapentin (Gabapentin 300 Mg Cap) 600 mg PO QAM SAMANTHA Stop: 06/28/21 08:59 Last Admin: 05/29/21 09:20 Dose: 600 mg Documented by: Heparin Sodium (Beef Lung) (Heparin 10 Unit/Ml 5 Ml Flush) 5 ml FLUSH PRN PRN PRN Reason: Flush Stop: 06/23/21 16:58 Last Admin: 05/29/21 09:20 Dose: 5 ml Documented by: Vancomycin HCl 750 mg/ Sodium (Chloride) 265 mls @ 200 mls/hr IV Q12H SAMANTHA Stop: 06/25/21 07:49 Last Infusion: 05/29/21 09:30 Dose: Infused Documented by: Insulin Aspart (Insulin Aspart Per Unit) 0 units SC ACHS [facility] Stop: 06/18/21 11:59 Last Admin: 05/29/21 14:15 Dose: 17 units Documented by: Insulin Aspart (Insulin Aspart Per Unit) 0 units SC 0200 [facility] Stop: 05/30/21 02:01 Lansoprazole (Lansoprazole 30 Mg Soltab) 30 mg PO DAILY [facility] Stop: 06/15/21 08:59 Last Admin: 05/29/21 07:45 Dose: 30 mg Documented by: Levalbuterol HCl (Levalbuterol Hcl 1.25 Mg/3 Ml Neb) 1.25 mg NEB Q4H PRN; Protocol PRN Reason: Shortness Of Breath Or Wheezing Stop: 06/24/21 20:29 Last Admin: 05/26/21 13:45 Dose: 1.25 mg Documented by: Lisinopril (Lisinopril 20 Mg Tab) 20 mg PO [facility] Stop: 06/21/21 03:14 Last Admin: 05/29/21 07:52 Dose: 20 mg Documented by: Magnesium Oxide (Magnesium Oxide 400 Mg Tab) 400 mg PO [facility] Stop: 06/18/21 08:59 Last Admin: 05/29/21 07:44 Dose: 400 mg Documented by: Melatonin (Melatonin 3 Mg Tab) 6 mg PO [facility] Stop: 06/26/21 20:59 Last Admin: 05/28/21 20:57 Dose: 6 mg Documented by: Metoclopramide HCl (Metoclopramide Hcl Inj 5 Mg/Ml 2 Ml Vial) 10 mg IV Q6H PRN PRN Reason: Nausea And Vomiting Stop: 06/15/21 13:32 Metoprolol Succinate (Metoprolol Succ 50mg Ext Rel Tab) 100 mg PO [facility] Stop: 06/16/21 10:59 Last Admin: 05/29/21 07:52 Dose: 100 mg Documented by: Metoprolol Succinate (Metoprolol Succ 50mg Ext Rel Tab) 50 mg PO [facility] Stop: 06/16/21 20:59 Last Admin: 05/28/21 20:58 Dose: 50 mg Documented by: Miscellaneous Information (Vancomycin Consult Active) 1 ea N/A UD PRN PRN Reason: Consult Stop: 06/13/21 19:56 Miscellaneous Information (Pharmacy Glycemic Mgmt Consult) 1 ea N/A UD PRN PRN Reason: Consult Stop: 06/13/21 23:07 Multivitamins (Multivitamin Tab) 1 tab PO [facility] Stop: 06/18/21 08:59 Last Admin: 05/29/21 07:45 Dose: 1 tab Documented by: Naloxone HCl (Naloxone Hcl 0.4 Mg/1 Ml Vial/Carp) 0.1 mg IV Q5M PRN PRN Reason: Oversedation/Resp Depression Stop: 06/15/21 13:32 Ondansetron HCl (Ondansetron Inj 2 Mg/Ml 2 Ml Vial) 4 mg IV Q6H PRN PRN Reason: Nausea And Vomiting Stop: 06/15/21 13:32 Oxycodone HCl (Oxycodone Hcl Ir 5 Mg Tab (Immediate Release)) 5 - 10 mg PO QID PRN PRN Reason: Pain Stop: 06/07/21 22:59 Last Admin: 05/29/21 04:35 Dose: 10 mg Documented by: Polyethylene Glycol (Polyethylene (Miralax) 17 Gm Pack) 17 gm PO DAILY SAMANTHA Stop: 06/16/21 08:59 Last Admin: 05/29/21 07:52 Dose: Not Given Documented by: Potassium Chloride (Potassium Chloride Crtab 20 Meq Tabcr) 40 meq PO DAILY SAMANTHA Stop: 06/25/21 12:29 Last Admin: 05/29/21 09:20 Dose: 40 meq Documented by: Sennosides (Sennosides 8.8 Mg/5 Ml Udc) 17.2 mg PO HS PRN PRN Reason: Constipation Stop: 06/14/21 09:41 Topiramate (Topiramate 50 Mg Tab) 50 mg PO BID SAMANTHA Stop: 06/14/21 08:59 Last Admin: 05/29/21 07:44 Dose: 50 mg Documented by:
[2021-05-29] MEDS: DONEPEZIL HCL 5 MG TAB PO SCH (20:49)
[2021-05-29] MEDS: ATORVASTATIN 40 MG TAB PO SCH (20:49)
[2021-05-29] MEDS: MELATONIN 3 MG TAB PO SCH (20:49)
[2021-05-29] MEDS: GABAPENTIN 600 MG TAB PO SCH (20:50)
[2021-05-30] MEDS ORDERED: INSULIN ASPART PER UNIT SC SCH (02:00)
--- NOTE | 2021-05-30 06:33 | XRay Report ---
XR chest 1V portable CLINICAL HISTORY: sob. COMPARISON STUDY: 05/25/2021 TECHNIQUE: 1 view of the chest FINDINGS: Single frontal view of the chest demonstrates the heart size to be enlarged status post previous card iothoracic surgery. Mild prominence of the interstitial markings again seen bilaterally with no alveo lar opacities identified. PICC line remains in place. There is no evidence for pleural effusion. Ther e is no evidence for vascular congestion. There is no acute osseous pathology. IMPRESSION: 1. Mild persistent prominence of the interstitial markings with no focal alveolar opacities. ACT 112: Negative or not required by law. Electronically signed by: Juan Francisco Serrano M.D. 05/30/2021 6:31 AM
[2021-05-30] MEDS ORDERED: VANCOMYCIN TROUGH ONE (07:30)
--- NOTE | 2021-05-30 07:34 | Electrocardiogram Report ---
Test Reason : Blood Pressure : / mmHG Vent. Rate : 076 BPM Atrial Rate : 076 BPM P-R Int : 144 ms QRS Dur : 142 ms QT Int : 460 ms P-R-T Axes : 063 060 096 degrees QTc Int : 517 ms Normal sinus rhythm Left bundle branch block Abnormal ECG When compared with ECG of 26-MAY-2021 13:32, Left bundle branch block is now Present Borderline criteria for Anterior infarct are no longer Present Confirmed by Allen Dey [id number]) on 05/30/2021 7:33:54 AM Referred By: REFERRED SELF Confirmed By:Paolo Dey
[2021-05-30] MEDS: POLYETHYLENE (MIRALAX) 17 GM PACK PO SCH (07:54)
[2021-05-30 08:16] LABS: Troponin I High Sensitivity 13.5 pg/ml (0-14)
[2021-05-30 08:26] LABS: BUN Creatinine Ratio 28.8 (10-20); C Reactive Protein 2.1 mg/dl (0-0.5); Creatinine Clr Calc Pharmacy 92.6 ml/min; Est GFR (African American) 113.9 ml/min; Est GFR (Non-African American) 98.2 ml/min; Magnesium 1.9 mg/dl (1.7-2.4)
[2021-05-30] MEDS: FUROSEMIDE 40 MG/4 ML VIAL IV SCH ×2 (08:51→17:41)
[2021-05-30] MEDS ORDERED: INSULIN GLARGINE SOLOSTAR 100 UNITS/ML 3 ML PEN SQ SCH (09:00)
[2021-05-30] MEDS: LEVALBUTEROL HCL 1.25 MG/3 ML NEB NEB PRN ×2 (09:02→15:18)
--- NOTE | 2021-05-30 09:04 | Pharmacy Report ---
Pharmacy Vanc AUC Short Note - Date of Service May 30, 2021 - Assessment & Plan Assessment 60 year old F receiving IV Vancomycin for treatment of MRSA bacteremia. Day # of antimicrobial therapy. Plan Vancomycin * AUC/ELI is the preferred PK/PD target for vancomycin * AUC guided dosing is effective and associated with decreased risk of nephrotoxicity compared to traditional trough targets * Trough level of 19 mcg/mL is predicted to achieve target AUC/ELI of 400-600 mg/L.hr and may be associated with a 9 % risk of nephrotoxicity * Continue dose of 750 mg IV every 12 hours; patient has been on this regimen for >2 weeks. * Consider rechecking trough in 5-7 days; renal function appears stable Pharmacy will continue to follow and will adjust dose/frequency as necessary. Thank you.
[2021-05-30 09:06] LABS: Hematocrit (blood only) 27.8 % (37-47); Hemoglobin 8.2 g/dL (12.0-16.0); Mean Corpuscular Hemoglobin 28.3 pg (25-34); Mean Corpuscular Hgb Conc 29.5 g/dL (32-36); Mean Corpuscular Volume 95.9 fL (80-100); Mean Platelet Volume 10.1 fL (7.4-10.4); Platelet Count 400 K/uL (130-400); RDW Coefficient of Variation 21.8 % (11.5-14.5); RDW Standard Deviation 74.8 fL (36.4-46.3)
[2021-05-30] MEDS: VANCOMYCIN HCL 750 MG in SODIUM CHLORIDE 0.9% 250 ML IV SCH ×2 (09:17→20:55)
[2021-05-30] MEDS: LANSOPRAZOLE 30 MG SOLTAB PO SCH (09:21)
[2021-05-30] MEDS: MAGNESIUM OXIDE 400 MG TAB PO SCH (09:21)
[2021-05-30] MEDS: ASPIRIN 81 MG ECTAB PO SCH (09:21)
[2021-05-30] MEDS: ENOXAPARIN INJ 40 MG/0.4 ML SYR SQ SCH (09:21)
[2021-05-30] MEDS: DULoxetine HCL 30 MG CAP PO SCH (09:22)
[2021-05-30] MEDS: MULTIVITAMIN TAB PO SCH (09:22)
[2021-05-30] MEDS: METOPROLOL SUCC 50MG EXT REL TAB PO SCH ×2 (09:22→21:30)
[2021-05-30] MEDS: GABAPENTIN 300 MG CAP PO SCH (09:22)
[2021-05-30] MEDS: TOPIRAMATE 50 MG TAB PO SCH ×2 (09:22→21:15)
[2021-05-30] MEDS: DICLOFENAC SOD 1% GEL 100 GM TUBE EXT SCH ×3 (09:22→21:13)
[2021-05-30] MEDS: CLOPIDOGREL BISULFATE 75 MG TAB PO SCH (09:22)
[2021-05-30] MEDS: lisinopril 20 MG TAB PO SCH (09:22)
[2021-05-30] MEDS: DOCUSATE SODIUM 100 MG CAP PO SCH ×2 (09:23→21:30)
[2021-05-30] MEDS: INSULIN ASPART PER UNIT SC SCH ×4 (09:32→21:30)
[2021-05-30] MEDS: POTASSIUM CHLORIDE CRTAB 20 MEQ TABCR PO SCH (09:47)
--- NOTE | 2021-05-30 11:13 | Progress Notes ---
DATE OF SERVICE: 05/30/2021. SUBJECTIVE: A 60-year-old female now 2 weeks out from right below-knee amputation for chronic ankle infection. She is doing reasonably well. Having some pain, but none out of the ordinary. No other complaints. OBJECTIVE: VITAL SIGNS: Temperature 36.6. Vital signs are stable. GENERAL: Shows a pleasant middle-aged female. She is sitting up in bed, eating breakfast. She look s pretty comfortable. EXTREMITIES: Examination of the left leg with the dressing removed reveals the wound to be well appr oximated. Some mild swelling. No drainage. No signs of cellulitis or infection. LABORATORY DATA: Hemoglobin 8.2. Hematocrit 27.8. Electrolytes are stable. ASSESSMENT: A 60-year-old female now 2 weeks out from a left below-knee amputation for chronic ankle infection with underlying sepsis, endocarditis. Her leg is doing well. Wound looks to be healing. There are no signs of infection. PLAN: Routine wound care of the left leg. We will do dressing changes daily. Does not need much mo re than that at this point, need to just have the swelling go down. We will remove the stitches prob ably in about a week. I do not need to see her for about a week. Any orthopedic questions can be di rected to me at [phone]. Job ID: [id number]
--- NOTE | 2021-05-30 14:19 | Pharmacy Report ---
Pharmacy Glycemic Short Note 2 - Date of Service May 30, 2021 - Glycemic Short BSG Results (Last 24 hours): 05/29/21 05/29/21 05/30/21 17:22 20:36 01:53 Glucose POC Glucose 175 H 139 H 104 H 05/30/21 05/30/21 05/30/21 07:32 08:12 12:10 Glucose 153 H POC Glucose 173 H 290 H OUTPATIENT ANTIDIABETIC REGIMEN: * Basaglar 46 units SQ qAM * Novolog sliding scale * HbA1C = 10.3% (05/15/21) ASSESSMENT: 05/30/21: * Patient received total of 69 units of insulin yesterday, of which 30 units were basal * BSGs trending down throughout the day yesterday and overnight, but back up to 173 mg/dL this AM, plan to continue with Lantus 30 units today as we have been rapidly titrating up basal insulin and BSG is trending down since yesterday AM 05/29/21: * BSGs remain elevated, ranging 146-246 mg/dL yesterday * Received 52 units of insulin yesterday (21 units of basal and 31 units of prandial/correctional bolus) * Fasting BSG of 256 mg/dL this morning * Based on prior admission data, patient has had increased insulin requirements at times * Will increase basal and tighten carb ratio today 05/28/21: * Rizwana received 40 units of insulin yesterday with majority of BSGs above goal: 193, 262, 142, 173 mg/dL * Fasting BSG of 246 mg/dL is above goal. Insulin regimen is bolus heavy - will continue to titrate basal insulin. * Tighten CF and CR - no improvement in BSG from AM to lunch despite patient not eating carbohydrates. 05/27/21 * BSGs yesterday were [phone] mg/dL and fasting today is 193 mg/dL. * Per nursing report, patient snacks. * Patient received 44 units of insulin yesterday (12 units of basal and 32 units of bolus insulin). * Continue with titration of basal as glucose in PRP is still slightly elevated at 144 mg/dL. * Tighten Novolog CR slightly. 05/19 * BSGs well controlled over last 24 hrs * BSGs did trend up following resumption of diet yesterday. Likely due in part to holding basal insulin dose in the AM for BSGs in the 70s. * Patient was initially NPO this AM for JUAN DAVID but this has been cancelled and diet ordered to resume w/ lunch. Will give Lantus at that time. * Fasting BSG 130 this AM with 5 units basal on board and following receipt of 5 units correctional insulin from HS and 0200 BSG checks. PLAN FOR INPATIENT GLYCEMIC CONTROL: * Hold outpatient oral diabetes medications * Basal insulin * Lantus 30 units Qam * Bolus insulin * NovoLog per scale ACHS * Goal Range: Low 110 mg/dL - High 140 mg/dL * Correction Factor: 20 mg/dL/unit * Nutritional / Prandial insulin per carb ratio of 1 unit per 6 grams CHO c onsumed
--- NOTE | 2021-05-30 14:52 | Hospitalist Progress Note ---
Date of Service May 30, 2021 Assessment & Plan (1) MRSA bacteremia: (2) Infective endocarditis: Plan: Blood clx 05/14 with MRSA in 2/2 bottles, Repeat Blood clx 05/17 negative. Seen by ID and cardiology Continue Vanc for 6 weeks from negative blood culture 05/17 for infective endocarditis as seen in TTE- 1.3 x 0.6 cm lesion present on the atrial aspect of the anterior mitral valve leaflet consistent with mitral valve endocarditis along with moderate MR Plan to repeat echo at the completion for evaluation. Monitor for embolic complications- currently none. Inflammatory markers stable to improving. Weekly labs while on antibiotics PICC line placed (3) Severe sepsis: Plan: Secondary to infected wound/osteomyelitis of the left ankle with MRSA bacteremia Sepsis resolved. Plan as above (4) Bone infection of left ankle: Plan: History of bimalleolar fracture of the ankle in March, Status post repair with hardware placement Has infection in the open wound and likely has osteomyelitis which is the source of sepsis S/P Left BKA performed by Dr Yo on 05/16/21 Seen by ortho- dressing removal prior to discharge, only local wound care (5) Bimalleolar fracture of left ankle: Plan: As above (6) (HFpEF) heart failure with preserved ejection fraction: Plan: Exam improved but still with crackles, CXR with pulmonary vasc congestion, on NC Will continue IV lasix and reassess daily clinically and labwise Continue daily weight, I and Os (7) Diabetes mellitus, type 2: Plan: Uncontrolled DM, A1c 10.3 and with diabetic neuropathy Pharmacy on board for glycemic management Continue Insulin Glargine and novolog sliding scale (8) Anemia: Plan: likely secondary to sepsis and some blood loss with surgery Hemoglobin dropped to 6.7 and s/p 2 units of blood transfusion during hospital course Currently Hb 8. No active bleed, Recheck intermittently (9) Essential hypertension: Plan: on lisinopril, toprol, lasix Plan: DVT prophylaxis on Lovenox subq Dispo- Patient needs rehab and will have a bed available on Monday per CM. Needs IV vanc at discharge for D1 Admission and Anticipated Discharge Date Admission Date: May 14, 2021 Subjective No new issues. Had some chest tightness this morning which resolved with nebs. Now none. No fever, chills, chest pain. Physical Exam Physical Exam: General: Sitting in wheelchair, not in distress, on NC HEENT: EOMI, NETTE, MMM Chest: Fair breath sounds bilaterally with basilar rales CVS: Regular rate and rhythm, normal heart sounds, no murmur Abdomen: Soft, non tender, not distended, normal bowel sounds Neuro: Awake, alert, oriented, conversing well, non focal Extremities: No cyanosis, clubbing. Rt pedal edema and erythema of toes seems dependent. Left BKA covered with dressing Results & Data Results & Data ([facility]) Vital Signs (Past 12 Hours) Vital Signs Temp Pulse Resp BP Pulse Ox 05/30/21 09:20 129/79 05/30/21 09:02 76 18 93 05/30/21 07:50 36.6 C 84 16 161/84 H 94 Laboratory Results Short CBC 05/30/21 Range/Units 08:05 WBC 9.70 (4.8-10.8) K/uL Hgb 8.2 L (12.0-16.0) g/dL Hct 27.8 L (37-47) % Plt Count 400 (130-400) K/uL BMP 05/30/21 07:32 Sodium 140 Potassium 4.0 Chloride 105 Carbon Dioxide 30 BUN 17 Creatinine 0.59 L Glucose 153 H Calcium 9.0 Medications Administered Current Inpatient Medications Acetaminophen (Acetaminophen 500 Mg Tab) 1,000 mg PO Q8H PRN PRN Reason: mild pain (1,2,3) or Fever Stop: 06/18/21 10:04 Last Admin: 05/29/21 20:40 Dose: 1,000 mg Documented by: Aspirin (Aspirin 81 Mg Ectab) 81 mg PO DAILY [facility] Stop: 06/19/21 08:59 Last Admin: 05/30/21 09:21 Dose: 81 mg Documented by: Atorvastatin Calcium (Atorvastatin 40 Mg Tab) 80 mg PO HS [facility] Stop: 06/14/21 20:59 Last Admin: 05/29/21 20:49 Dose: 80 mg Documented by: Clopidogrel Bisulfate (Clopidogrel Bisulfate 75 Mg Tab) 75 mg PO QAM [facility] Stop: 06/18/21 08:59 Last Admin: 05/30/21 09:22 Dose: 75 mg Documented by: Diclofenac Sodium (Diclofenac Sod 1% Gel 100 Gm Tube) 2 gm EXT TID [facility] Stop: 06/27/21 20:59 Last Admin: 05/30/21 13:35 Dose: 2 gm Documented by: Docusate Sodium (Docusate Sodium 100 Mg Cap) 100 mg PO BID [facility] Stop: 06/17/21 20:59 Last Admin: 05/30/21 09:23 Dose: Not Given Documented by: Donepezil HCl (Donepezil Hcl 5 Mg Tab) 5 mg PO HS [facility] Stop: 06/14/21 20:59 Last Admin: 05/29/21 20:49 Dose: 5 mg Documented by: Duloxetine HCl (Duloxetine Hcl 30 Mg Cap) 90 mg PO QAM [facility] Stop: 06/18/21 08:59 Last Admin: 05/30/21 09:22 Dose: 90 mg Documented by: Enoxaparin Sodium (Enoxaparin Inj 40 Mg/0.4 Ml Syr) [facility] [place]: 06/17/21 11:59 Last Admin: 05/30/21 09:21 Dose: 40 mg Documented by: Furosemide (Furosemide 20 Mg Tab) 60 mg PO DAILY [facility] Stop: 06/16/21 08:59 Last Admin: 05/26/21 09:07 Dose: 60 mg Documented by: Furosemide (Furosemide 40 Mg/4 Ml Vial) 60 mg IV BID17 [facility] Stop: 06/26/21 08:59 Last Admin: 05/30/21 08:51 Dose: 60 mg Documented by: Gabapentin (Gabapentin 600 Mg Tab) 600 mg PO HS [facility] Stop: 06/17/21 20:59 Last Admin: 05/29/21 20:50 Dose: 600 mg Documented by: Gabapentin (Gabapentin 300 Mg Cap) 600 mg PO QAM [facility] Stop: 06/28/21 08:59 Last Admin: 05/30/21 09:22 Dose: 600 mg Documented by: Heparin Sodium (Beef Lung) (Heparin 10 Unit/Ml 5 Ml Flush) 5 ml FLUSH PRN PRN PRN Reason: Flush Stop: 06/23/21 16:58 Last Admin: 05/29/21 22:16 Dose: 5 ml Documented by: Vancomycin HCl 750 mg/ Sodium (Chloride) 265 mls @ 200 mls/hr IV Q12H [facility] Stop: 06/25/21 07:49 Last Infusion: 05/30/21 10:37 Dose: Infused Documented by: Insulin Aspart (Insulin Aspart Per Unit) 0 units SC ACHS [facility] Stop: 06/18/21 11:59 Last Admin: 05/30/21 13:28 Dose: 13 units Documented by: Insulin Glargine (Insulin Glargine Solostar 100 Units/Ml 3 Ml Pen) 30 units SQ [facility]; Protocol Stop: 06/29/21 08:59 Last Admin: 05/30/21 09:32 Dose: 30 units Documented by: Lansoprazole (Lansoprazole 30 Mg Soltab) 30 mg PO DAILY [facility] Stop: 06/15/21 08:59 Last Admin: 05/30/21 09:21 Dose: 30 mg Documented by: Levalbuterol HCl (Levalbuterol Hcl 1.25 Mg/3 Ml Neb) 1.25 mg NEB Q4H PRN; Protocol PRN Reason: Shortness Of Breath Or Wheezing Stop: 06/24/21 20:29 Last Admin: 05/30/21 09:02 Dose: 1.25 mg Documented by: Lisinopril (Lisinopril 20 Mg Tab) 20 mg PO [facility] Stop: 06/21/21 03:14 Last Admin: 05/30/21 09:22 Dose: 20 mg Documented by: Magnesium Oxide (Magnesium Oxide 400 Mg Tab) 400 mg PO [facility] Stop: 06/18/21 08:59 Last Admin: 05/30/21 09:21 Dose: 400 mg Documented by: Melatonin (Melatonin 3 Mg Tab) 6 mg PO [facility] Stop: 06/26/21 20:59 Last Admin: 05/29/21 20:49 Dose: 6 mg Documented by: Metoclopramide HCl (Metoclopramide Hcl Inj 5 Mg/Ml 2 Ml Vial) 10 mg IV Q6H PRN PRN Reason: Nausea And Vomiting Stop: 06/15/21 13:32 Metoprolol Succinate (Metoprolol Succ 50mg Ext Rel Tab) 100 mg PO [facility] Stop: 06/16/21 10:59 Last Admin: 05/30/21 09:22 Dose: 100 mg Documented by: Metoprolol Succinate (Metoprolol Succ 50mg Ext Rel Tab) 50 mg PO [facility] Stop: 06/16/21 20:59 Last Admin: 05/29/21 20:52 Dose: 50 mg Documented by: Miscellaneous Information (Vancomycin Consult Active) 1 ea N/A UD PRN PRN Reason: Consult Stop: 06/13/21 19:56 Miscellaneous Information (Pharmacy Glycemic Mgmt Consult) 1 ea N/A UD PRN PRN Reason: Consult Stop: 06/13/21 23:07 Multivitamins (Multivitamin Tab) 1 tab PO QAM [facility] Stop: 06/18/21 08:59 Last Admin: 05/30/21 09:22 Dose: 1 tab Documented by: Naloxone HCl (Naloxone Hcl 0.4 Mg/1 Ml Vial/Carp) 0.1 mg IV Q5M PRN PRN Reason: Oversedation/Resp Depression Stop: 06/15/21 13:32 Ondansetron HCl (Ondansetron Inj 2 Mg/Ml 2 Ml Vial) 4 mg IV Q6H PRN PRN Reason: Nausea And Vomiting Stop: 06/15/21 13:32 Oxycodone HCl (Oxycodone Hcl Ir 5 Mg Tab (Immediate Release)) 5 - 10 mg PO QID PRN PRN Reason: Pain Stop: 06/07/21 22:59 Last Admin: 05/29/21 17:54 Dose: 10 mg Documented by: Polyethylene Glycol (Polyethylene (Miralax) 17 Gm Pack) 17 gm PO DAILY [facility] Stop: 06/16/21 08:59 Last Admin: 05/30/21 07:54 Dose: Not Given Documented by: Potassium Chloride (Potassium Chloride Crtab 20 Meq Tabcr) 40 meq PO DAILY [facility] Stop: 06/25/21 12:29 Last Admin: 05/30/21 09:47 Dose: 40 meq Documented by: Sennosides (Sennosides 8.8 Mg/5 Ml Udc) 17.2 mg PO HS PRN PRN Reason: Constipation Stop: 06/14/21 09:41 Topiramate (Topiramate 50 Mg Tab) 50 mg PO BID [facility] Stop: 06/14/21 08:59 Last Admin: 05/30/21 09:22 Dose: 50 mg Documented by:
[2021-05-30] MEDS: oxyCODONE HCL IR 5 MG TAB (IMMEDIATE RELEASE) PO PRN ×2 (14:57→21:08)
[2021-05-30] MEDS: ATORVASTATIN 40 MG TAB PO SCH (21:12)
[2021-05-30] MEDS: DONEPEZIL HCL 5 MG TAB PO SCH (21:14)
[2021-05-30] MEDS: GABAPENTIN 600 MG TAB PO SCH (21:14)
[2021-05-30] MEDS: MELATONIN 3 MG TAB PO SCH (21:15)
[2021-05-31] MEDS: oxyCODONE HCL IR 5 MG TAB (IMMEDIATE RELEASE) PO PRN ×3 (02:09→18:13)
[2021-05-31] MEDS: VANCOMYCIN HCL 750 MG in SODIUM CHLORIDE 0.9% 250 ML IV SCH ×2 (08:00→19:50)
[2021-05-31] MEDS: CLOPIDOGREL BISULFATE 75 MG TAB PO SCH (08:01)
[2021-05-31] MEDS: FUROSEMIDE 40 MG/4 ML VIAL IV SCH (08:03)
[2021-05-31] MEDS: DULoxetine HCL 30 MG CAP PO SCH (08:04)
[2021-05-31] MEDS: ASPIRIN 81 MG ECTAB PO SCH (08:04)
[2021-05-31] MEDS: lisinopril 20 MG TAB PO SCH (08:04)
[2021-05-31] MEDS: METOPROLOL SUCC 50MG EXT REL TAB PO SCH ×2 (08:04→20:11)
[2021-05-31] MEDS: MULTIVITAMIN TAB PO SCH (08:05)
[2021-05-31] MEDS: GABAPENTIN 300 MG CAP PO SCH (08:05)
[2021-05-31] MEDS: TOPIRAMATE 50 MG TAB PO SCH ×2 (08:05→20:11)
[2021-05-31] MEDS: MAGNESIUM OXIDE 400 MG TAB PO SCH (08:05)
[2021-05-31] MEDS: ENOXAPARIN INJ 40 MG/0.4 ML SYR SQ SCH (08:06)
[2021-05-31] MEDS: DICLOFENAC SOD 1% GEL 100 GM TUBE EXT SCH ×3 (08:06→20:12)
[2021-05-31] MEDS: DOCUSATE SODIUM 100 MG CAP PO SCH ×2 (08:06→20:10)
[2021-05-31] MEDS: LANSOPRAZOLE 30 MG SOLTAB PO SCH (08:08)
[2021-05-31] MEDS: POLYETHYLENE (MIRALAX) 17 GM PACK PO SCH (08:08)
[2021-05-31] MEDS: FUROSEMIDE 20 MG TAB PO SCH (08:24)
[2021-05-31] MEDS ORDERED: INSULIN GLARGINE SOLOSTAR 100 UNITS/ML 3 ML PEN SQ SCH (09:00)
[2021-05-31] MEDS: POTASSIUM CHLORIDE CRTAB 20 MEQ TABCR PO SCH (09:06)
[2021-05-31] MEDS: INSULIN ASPART PER UNIT SC SCH ×4 (09:07→21:10)
--- NOTE | 2021-05-31 11:05 | Hospitalist Progress Note ---
Date of Service May 31, 2021 Assessment & Plan (1) MRSA bacteremia: (2) Infective endocarditis: Plan: Blood clx 05/14 with MRSA in 2/2 bottles, Repeat Blood clx 05/17 negative. Seen by ID and cardiology Continue Vanc for 6 weeks from negative blood culture 05/17 for infective endocarditis as seen in TTE- 1.3 x 0.6 cm lesion present on the atrial aspect of the anterior mitral valve leaflet consistent with mitral valve endocarditis along with moderate MR Plan to repeat echo at the completion for evaluation. Monitor for embolic complications- currently none. Inflammatory markers stable to improving. Weekly labs while on antibiotics PICC line placed (3) Severe sepsis: Plan: Secondary to infected wound/osteomyelitis of the left ankle with MRSA bacteremia Sepsis resolved. Plan as above (4) Bone infection of left ankle: Plan: History of bimalleolar fracture of the ankle in March, Status post repair with hardware placement Has infection in the open wound and likely has osteomyelitis which is the source of sepsis S/P Left BKA performed by Dr Yo on 05/16/21 Seen by ortho- dressing removed, only local wound care. (5) Bimalleolar fracture of left ankle: Plan: As above (6) (HFpEF) heart failure with preserved ejection fraction: Plan: looks euvolemic at this point. Will change iv to po lasix 60 mg daily. Will wean down oxygen as SpO2 is 100% on 2 L NC. Recommended diligent IS use. (7) Diabetes mellitus, type 2: Plan: Uncontrolled DM, A1c 10.3 and with diabetic neuropathy Pharmacy on board for glycemic management Continue Insulin Glargine and novolog sliding scale (8) Anemia: Plan: likely secondary to sepsis and some blood loss with surgery Hemoglobin dropped to 6.7 and s/p 2 units of blood transfusion during hospital course Currently Hb 8. No active bleed, Recheck intermittently (9) Essential hypertension: Plan: on lisinopril, toprol, lasix Plan: DVT prophylaxis on sc Lovenox Dispo- Patient needs rehab and will have a bed available on Monday per CM. Needs IV vanc at discharge for D1 Admission and Anticipated Discharge Date Admission Date: May 14, 2021 Subjective Feels fine. No new issues. Pain is controlled at this point. She has not been diligent with her incentive spirometer. No chest pain, shortness of breath, fever or chills. Regular bowel movement. Physical Exam Physical Exam: General: Sitting in bed, not in distress, on NC HEENT: EOMI, NETTE, MMM Chest: Fair breath sounds bilaterally CVS: Regular rate and rhythm, normal heart sounds, no murmur Abdomen: Soft, non tender, not distended, normal bowel sounds Neuro: Awake, alert, oriented, conversing well, non focal Extremities: No cyanosis, clubbing. Left BKA covered with dressing Results & Data Results & Data ([facility]) Vital Signs (Past 12 Hours) Vital Signs Temp Pulse Resp BP Pulse Ox 05/31/21 10:54 36.9 C 72 16 152/87 H 100 05/31/21 07:26 36.9 C 72 16 150/80 H 100 Medications Administered Current Inpatient Medications Acetaminophen (Acetaminophen 500 Mg Tab) 1,000 mg PO Q8H PRN PRN Reason: mild pain (1,2,3) or Fever Stop: 06/18/21 10:04 Last Admin: 05/29/21 20:40 Dose: 1,000 mg Documented by: Aspirin (Aspirin 81 Mg Ectab) 81 mg PO DAILY [facility] Stop: 06/19/21 08:59 Last Admin: 05/31/21 08:04 Dose: 81 mg Documented by: Atorvastatin Calcium (Atorvastatin 40 Mg Tab) 80 mg PO HS [facility] Stop: 06/14/21 20:59 Last Admin: 05/30/21 21:12 Dose: 80 mg Documented by: Clopidogrel Bisulfate (Clopidogrel Bisulfate 75 Mg Tab) 75 mg PO QAM [facility] Stop: 06/18/21 08:59 Last Admin: 05/31/21 08:01 Dose: 75 mg Documented by: Diclofenac Sodium (Diclofenac Sod 1% Gel 100 Gm Tube) 2 gm EXT TID [facility] Stop: 06/27/21 20:59 Last Admin: 05/31/21 08:06 Dose: 2 gm Documented by: Docusate Sodium (Docusate Sodium 100 Mg Cap) 100 mg PO BID [facility] Stop: 06/17/21 20:59 Last Admin: 05/31/21 08:06 Dose: Not Given Documented by: Donepezil HCl (Donepezil Hcl 5 Mg Tab) 5 mg PO HS [facility] Stop: 06/14/21 20:59 Last Admin: 05/30/21 21:14 Dose: 5 mg Documented by: Duloxetine HCl (Duloxetine Hcl 30 Mg Cap) 90 mg PO QAM [facility] Stop: 06/18/21 08:59 Last Admin: 05/31/21 08:04 Dose: 90 mg Documented by: Enoxaparin Sodium (Enoxaparin Inj 40 Mg/0.4 Ml Syr) 40 mg SQ QAM [facility] Stop: 06/17/21 11:59 Last Admin: 05/31/21 08:06 Dose: 40 mg Documented by: Furosemide (Furosemide 20 Mg Tab) 60 mg PO DAILY [facility] Stop: 06/16/21 08:59 Last Admin: 05/31/21 08:24 Dose: Not Given Documented by: Gabapentin (Gabapentin 600 Mg Tab) 600 mg PO HS [facility] Stop: 06/17/21 20:59 Last Admin: 05/30/21 21:14 Dose: 600 mg Documented by: Gabapentin (Gabapentin 300 Mg Cap) 600 mg PO QAM [facility] Stop: 06/28/21 08:59 Last Admin: 05/31/21 08:05 Dose: 600 mg Documented by: Heparin Sodium (Beef Lung) (Heparin 10 Unit/Ml 5 Ml Flush) 5 ml FLUSH PRN PRN PRN Reason: Flush Stop: 06/23/21 16:58 Last Admin: 05/31/21 10:53 Dose: 5 ml Documented by: Vancomycin HCl 750 mg/ Sodium (Chloride) 265 mls @ 200 mls/hr IV Q12H [facility] Stop: 06/25/21 07:49 Last Infusion: 05/31/21 09:58 Dose: Infused Documented by: Insulin Aspart (Insulin Aspart Per Unit) 0 units SC ACHS [facility] Stop: 06/18/21 11:59 Last Admin: 05/31/21 09:07 Dose: 10 units Documented by: Insulin Aspart (Insulin Aspart Per Unit) 0 units SC TODAY@0200 ONE Stop: 06/01/21 02:01 Insulin Glargine (Insulin Glargine Solostar 100 Units/Ml 3 Ml Pen) [address] [facility]; Protocol Stop: 06/30/21 08:59 Last Admin: 05/31/21 09:00 Dose: 35 units Documented by: Lansoprazole (Lansoprazole 30 Mg Soltab) 30 mg PO DAILY [facility] Stop: 06/15/21 08:59 Last Admin: 05/31/21 08:08 Dose: 30 mg Documented by: Levalbuterol HCl (Levalbuterol Hcl 1.25 Mg/3 Ml Neb) 1.25 mg NEB Q4H PRN; Protocol PRN Reason: Shortness Of Breath Or Wheezing Stop: 06/24/21 20:29 Last Admin: 05/30/21 15:18 Dose: 1.25 mg Documented by: Lisinopril (Lisinopril 20 Mg Tab) [address] [facility] Stop: 06/21/21 03:14 Last Admin: 05/31/21 08:04 Dose: 20 mg Documented by: Magnesium Oxide (Magnesium Oxide 400 Mg Tab) [address] [facility] Stop: 06/18/21 08:59 Last Admin: 05/31/21 08:05 Dose: 400 mg Documented by: Melatonin (Melatonin 3 Mg Tab) 6 mg PO [facility] Stop: 06/26/21 20:59 Last Admin: 05/30/21 21:15 Dose: 6 mg Documented by: Metoclopramide HCl (Metoclopramide Hcl Inj 5 Mg/Ml 2 Ml Vial) 10 mg IV Q6H PRN PRN Reason: Nausea And Vomiting Stop: 06/15/21 13:32 Metoprolol Succinate (Metoprolol Succ 50mg Ext Rel Tab) [address] [facility] Stop: 06/16/21 10:59 Last Admin: 05/31/21 08:04 Dose: 100 mg Documented by: Metoprolol Succinate (Metoprolol Succ 50mg Ext Rel Tab) 50 mg PO [facility] Stop: 06/16/21 20:59 Last Admin: 05/30/21 21:30 Dose: 50 mg Documented by: Miscellaneous Information (Vancomycin Consult Active) 1 ea N/A UD PRN PRN Reason: Consult Stop: 06/13/21 19:56 Miscellaneous Information (Pharmacy Glycemic Mgmt Consult) 1 ea N/A UD PRN PRN Reason: Consult Stop: 06/13/21 23:07 Multivitamins (Multivitamin Tab) [address] [facility] Stop: 06/18/21 08:59 Last Admin: 05/31/21 08:05 Dose: 1 tab Documented by: Naloxone HCl (Naloxone Hcl 0.4 Mg/1 Ml Vial/Carp) 0.1 mg IV Q5M PRN PRN Reason: Oversedation/Resp Depression Stop: 06/15/21 13:32 Ondansetron HCl (Ondansetron Inj 2 Mg/Ml 2 Ml Vial) 4 mg IV Q6H PRN PRN Reason: Nausea And Vomiting Stop: 06/15/21 13:32 Oxycodone HCl (Oxycodone Hcl Ir 5 Mg Tab (Immediate Release)) 5 - 10 mg PO QID PRN PRN Reason: Pain Stop: 06/07/21 22:59 Last Admin: 05/31/21 08:01 Dose: 10 mg Documented by: Polyethylene Glycol (Polyethylene (Miralax) 17 Gm Pack) 17 gm PO DAILY [facility] Stop: 06/16/21 08:59 Last Admin: 05/31/21 08:08 Dose: Not Given Documented by: Potassium Chloride (Potassium Chloride Crtab 20 Meq Tabcr) 40 meq PO DAILY [facility] Stop: 06/25/21 12:29 Last Admin: 05/31/21 09:06 Dose: 40 meq Documented by: Sennosides (Sennosides 8.8 Mg/5 Ml Udc) 17.2 mg PO HS PRN PRN Reason: Constipation Stop: 06/14/21 09:41 Topiramate (Topiramate 50 Mg Tab) 50 mg PO BID [facility] Stop: 06/14/21 08:59 Last Admin: 05/31/21 08:05 Dose: 50 mg Documented by:
--- NOTE | 2021-05-31 11:09 | Pharmacy Report ---
Pharmacy Glycemic Short Note 2 - Date of Service May 31, 2021 - Glycemic Short BSG Results (Last 24 hours): 05/30/21 05/30/21 05/30/21 12:10 17:12 20:39 POC Glucose 290 H 225 H 252 H 05/31/21 07:52 POC Glucose 239 H OUTPATIENT ANTIDIABETIC REGIMEN: * Basaglar 46 units SQ qAM * Novolog sliding scale * HbA1C = 10.3% (05/15/21) ASSESSMENT: 05/31/21: * Stressors stable * AM fasting BSG significantly elevated - will increase Lantus, but only slightly. Although AM fasting BSG's have been persistently elevated, overnight from 05/29 to 05/30, BSG was 104 mg/dL therefore pre-breakfast BSG's may not have been fasting (or patient may have overnight lows). Will also add on an overnight check tonight to assess * Post-prandial BSG's yesterday elevated. Will tighten CHO ratio back to previous. Consideration for tighter CHO ratio with breakfast only may be considered depending on breakfast to lunch trend in BSG. 05/30/21: * Patient received total of 69 units of insulin yesterday, of which 30 units were basal * BSGs trending down throughout the day yesterday and overnight, but back up to 173 mg/dL this AM, plan to continue with Lantus 30 units today as we have been rapidly titrating up basal insulin and BSG is trending down since yesterday AM 05/29/21: * BSGs remain elevated, ranging 146-246 mg/dL yesterday * Received 52 units of insulin yesterday (21 units of basal and 31 units of prandial/correctional bolus) * Fasting BSG of 256 mg/dL this morning * Based on prior admission data, patient has had increased insulin requirements at times * Will increase basal and tighten carb ratio today 05/28/21: * Rizwana received 40 units of insulin yesterday with majority of BSGs above goal: 193, 262, 142, 173 mg/dL * Fasting BSG of 246 mg/dL is above goal. Insulin regimen is bolus heavy - will continue to titrate basal insulin. * Tighten CF and CR - no improvement in BSG from AM to lunch despite patient not eating carbohydrates. 05/27/21 * BSGs yesterday were [phone] mg/dL and fasting today is 193 mg/dL. * Per nursing report, patient snacks. * Patient received 44 units of insulin yesterday (12 units of basal and 32 units of bolus insulin). * Continue with titration of basal as glucose in PRP is still slightly elevated at 144 mg/dL. * Tighten Novolog CR slightly. 05/19 * BSGs well controlled over last 24 hrs * BSGs did trend up following resumption of diet yesterday. Likely due in part to holding basal insulin dose in the AM for BSGs in the 70s. * Patient was initially NPO this AM for JUAN DAVID but this has been cancelled and diet ordered to resume w/ lunch. Will give Lantus at that time. * Fasting BSG 130 this AM with 5 units basal on board and following receipt of 5 units correctional insulin from HS and 0200 BSG checks. PLAN FOR INPATIENT GLYCEMIC CONTROL: * Hold outpatient oral diabetes medications * Basal insulin * Lantus 30 units Qam * Bolus insulin * NovoLog per scale ACHS * Goal Range: Low 110 mg/dL - High 140 mg/dL * Correction Factor: 20 mg/dL/unit * Nutritional / Prandial insulin per carb ratio of 1 unit per 6 grams CHO consumed
[2021-05-31] MEDS: ACETAMINOPHEN 500 MG TAB PO PRN ×2 (13:08→22:29)
[2021-05-31] MEDS ORDERED: ALTEPLASE, RECOMBINANT 1 MG/ML 2ML VIAL INSTIL ONE (15:00)
[2021-05-31] MEDS: GABAPENTIN 600 MG TAB PO SCH (20:10)
[2021-05-31] MEDS: DONEPEZIL HCL 5 MG TAB PO SCH (20:10)
[2021-05-31] MEDS: ATORVASTATIN 40 MG TAB PO SCH (20:11)
[2021-05-31] MEDS: MELATONIN 3 MG TAB PO SCH (20:11)
[2021-05-31] MEDS: LEVALBUTEROL HCL 1.25 MG/3 ML NEB NEB PRN (21:47)
[2021-06-01] MEDS: oxyCODONE HCL IR 5 MG TAB (IMMEDIATE RELEASE) PO PRN ×3 (00:03→12:21)
[2021-06-01] MEDS ORDERED: INSULIN ASPART PER UNIT SC ONE (02:00)
[2021-06-01] MEDS ORDERED: INSULIN ASPART PER UNIT SC SCH (06:30)
[2021-06-01 06:39] LABS: BUN Creatinine Ratio 25.3 (10-20); Calcium 8.6 mg/dl (8.5-10.1); Creatinine Clr Calc Pharmacy 72.8 ml/min; Est GFR (Non-African American) 85.4 ml/min; Magnesium 1.8 mg/dl (1.7-2.4); Potassium 3.9 mmol/L (3.5-5.1)
[2021-06-01] MEDS ORDERED: INSULIN GLARGINE SOLOSTAR 100 UNITS/ML 3 ML PEN SQ SCH (07:45)
[2021-06-01] MEDS: DICLOFENAC SOD 1% GEL 100 GM TUBE EXT SCH ×2 (08:22→15:28)
[2021-06-01] MEDS: VANCOMYCIN HCL 750 MG in SODIUM CHLORIDE 0.9% 250 ML IV SCH (08:22)
[2021-06-01] MEDS: ASPIRIN 81 MG ECTAB PO SCH (08:26)
[2021-06-01] MEDS: CLOPIDOGREL BISULFATE 75 MG TAB PO SCH (08:26)
[2021-06-01] MEDS: ENOXAPARIN INJ 40 MG/0.4 ML SYR SQ SCH (08:28)
[2021-06-01] MEDS: FUROSEMIDE 20 MG TAB PO SCH (08:29)
[2021-06-01] MEDS: GABAPENTIN 300 MG CAP PO SCH (08:29)
[2021-06-01] MEDS: LANSOPRAZOLE 30 MG SOLTAB PO SCH (08:30)
[2021-06-01] MEDS: lisinopril 20 MG TAB PO SCH (08:30)
[2021-06-01] MEDS: MAGNESIUM OXIDE 400 MG TAB PO SCH (08:31)
[2021-06-01] MEDS: METOPROLOL SUCC 50MG EXT REL TAB PO SCH (08:31)
[2021-06-01] MEDS: DULoxetine HCL 30 MG CAP PO SCH (08:32)
[2021-06-01] MEDS: MULTIVITAMIN TAB PO SCH (08:32)
[2021-06-01] MEDS: TOPIRAMATE 50 MG TAB PO SCH (08:33)
[2021-06-01] MEDS: DOCUSATE SODIUM 100 MG CAP PO SCH (08:43)
[2021-06-01] MEDS: POTASSIUM CHLORIDE CRTAB 20 MEQ TABCR PO SCH (08:43)
[2021-06-01] MEDS: POLYETHYLENE (MIRALAX) 17 GM PACK PO SCH (08:44)
[2021-06-01] MEDS: ACETAMINOPHEN 500 MG TAB PO PRN (09:51)
[2021-06-01] MEDS: INSULIN ASPART PER UNIT SC SCH ×2 (12:37→16:36)
--- NOTE | 2021-06-01 13:05 | Pharmacy Report ---
Pharmacy Glycemic Short Note 2 - Date of Service June 01, 2021 - Glycemic Short BSG Results (Last 24 hours): 05/31/21 05/31/21 06/01/21 16:52 20:41 02:02 Glucose POC Glucose 140 H 152 H 202 H 06/01/21 06/01/21 06/01/21 05:56 06:21 08:08 Glucose 217 H POC Glucose 224 H 221 H 06/01/21 06/01/21 12:08 12:09 Glucose POC Glucose 360 H* 357 H* OUTPATIENT ANTIDIABETIC REGIMEN: * Basaglar 46 units SQ qAM * Novolog sliding scale * HbA1C = 10.3% (05/15/21) ASSESSMENT: 06/01/21: * Fasting blood sugar elevated, increase basal to home dose * Blood sugar 360mg/dl at lunch d/t pt refusal of correctional insulin at 0630, no change at this time, educated patient that correctional insulin is not for CHO coverage and OK to take to correct high blood sugars when NPO 05/31/21: * Stressors stable * AM fasting BSG significantly elevated - will increase Lantus, but only slightly. Although AM fasting BSG's have been persistently elevated, overnight from 05/29 to 05/30, BSG was 104 mg/dL therefore pre-breakfast BSG's may not have been fasting (or patient may have overnight lows). Will also add on an overnight check tonight to assess * Post-prandial BSG's yesterday elevated. Will tighten CHO ratio back to previous. Consideration for tighter CHO ratio with breakfast only may be considered depending on breakfast to lunch trend in BSG. 05/30/21: * Patient received total of 69 units of insulin yesterday, of which 30 units were basal * BSGs trending down throughout the day yesterday and overnight, but back up to 173 mg/dL this AM, plan to continue with Lantus 30 units today as we have been rapidly titrating up basal insulin and BSG is trending down since yesterday AM 05/29/21: * BSGs remain elevated, ranging 146-246 mg/dL yesterday * Received 52 units of insulin yesterday (21 units of basal and 31 units of prandial/correctional bolus) * Fasting BSG of 256 mg/dL this morning * Based on prior admission data, patient has had increased insulin requirements at times * Will increase basal and tighten carb ratio today 05/28/21: * Rizwana received 40 units of insulin yesterday with majority of BSGs above goal: 193, 262, 142, 173 mg/dL * Fasting BSG of 246 mg/dL is above goal. Insulin regimen is bolus heavy - will continue to titrate basal insulin. * Tighten CF and CR - no improvement in BSG from AM to lunch despite patient not eating carbohydrates. 05/27/21 * BSGs yesterday were [phone] mg/dL and fasting today is 193 mg/dL. * Per nursing report, patient snacks. * Patient received 44 units of insulin yesterday (12 units of basal and 32 units of bolus insulin). * Continue with titration of basal as glucose in PRP is still slightly elevated at 144 mg/dL. * Tighten Novolog CR slightly. 05/19 * BSGs well controlled over last 24 hrs * BSGs did trend up following resumption of diet yesterday. Likely due in part to holding basal insulin dose in the AM for BSGs in the 70s. * Patient was initially NPO this AM for JUAN DAVID but this has been cancelled and diet ordered to resume w/ lunch. Will give Lantus at that time. * Fasting BSG 130 this AM with 5 units basal on board and following receipt of 5 units correctional insulin from HS and 0200 BSG checks. PLAN FOR INPATIENT GLYCEMIC CONTROL: * Basal insulin - increase * Lantus 46 units Qam * Bolus insulin * NovoLog per scale ACHS * Goal Range: Low 110 mg/dL - High 140 mg/dL * Correction Factor: 20 mg/dL/unit * Nutritional / Prandial insulin per carb ratio of 1 unit per 6 grams CHO consumed at all times, except 1 unit per 5 grams at breakfast
--- NOTE | 2021-06-01 15:47 | Discharge Summary ---
Date of Service June 01, 2021 Admission HPI Per Admitting Provider A 60-year-old female with past medical history significant for diabetes, diabetic neuropathy, CAD status post CABG, history of hypertension, history of non-rheumatic mitral regurgitation, history of community-acquired pneumonia, history of GERD, history of back pain, history of paranoid, anxiety, tobacco abuse disorder, who was brought in because of altered mental status. As per daughter, the patient was okay on Saturdays and Monday she was getting a little more drowsy, sleeping a lot. Seemed somewhat confused. It got progressively worse through the week, not eating or drinking much. The patient had a fall and left ankle fracture in March and is status post open reduction and internal fixation. She saw orthopedics yesterday, they thought she had an infection, and was started on Keflex. As she was not getting better and health aide thought she was more more confused than normal, EMS was called .Sugars were running high and she was saturating okay at 90%. Seems she also fell 2 days ago. The nancy ent is oriented to name and place. She is very drowsy, opens eyes on calling, but not answering many questions. Denies any pain currently. Her daughter says that her left ankle is infected and when her left ankle wrap is removed, we can see the hardware exposed and erythematous and some drainage fseen possible sepsis. Could not get any history from the patient currently. Admission Exam Per Admitting Provider GENERAL: The patient is drowsy, but arousable, alert to name and place. VITAL SIGNS: T-max 39.2, pulse 100, respiratory rate 20, blood pressure 142/79, oxygen 98% on room air. HEENT: Pupils equal, round and reactive to light. Oral mucosa dry. NECK: No JVD, no neck mass. CARDIOVASCULAR: S1 and S2 heard. Tachycardia. No murmurs. RESPIRATORY SYSTEM: Normal AP diameter. No accessory muscle use. No wheezing, no crackles. ABDOMEN: Soft, bowel sounds present, nontender, no distention. CENTRAL NERVOUS SYSTEM: Somewhat drowsy, but oriented to name and place. Sometimes obeys simple commands. 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 The patient is somewhat lethargic. EXTREMITIES: Left ankle recent open reduction and internal fixation site is open with exposed hardware, some mild drainage seen and there are surrounding erythematous changes. Principal Diagnosis Severe sepsis from left ankle OM with encephalopathy with MRSA bacteremia with mitral valve endocarditis, S/p left BKA Discharge Exam General: Sitting in bed, not in distress, on NC HEENT: EOMI, NETTE, MMM Chest: Fair breath sounds bilaterally CVS: Regular rate and rhythm, normal heart sounds, no murmur Abdomen: Soft, non tender, not distended, normal bowel sounds Neuro: Awake, alert, oriented, conversing well, non focal Extremities: No cyanosis, clubbing. Left BKA covered with dressing Discharge Data Allergies Allergy/AdvReac Type Severity Reaction Status Date / Time latex Allergy Mild Rash Verified 05/14/21 21:26 aspirin Allergy Unknown UNKNOWN Verified 05/14/21 21:26 Consultations 05/14/21 20:08 ED Decision to Admit Stat 05/15/21 07:58 Consult Licensed Nuclear Control Room Operator Routine 05/15/21 08:00 Consult Orthopedic Surgery Routine 05/17/21 09:36 Consult Infectious Diseases Routine 05/18/21 12:58 Consult Cardiology Routine Procedures Performed Operation Date: 05/16/21 07:30 Actual Procedures p Left Below Knee Amputation(Left) - Casa Yo MD Ordered Studies 05/14/21 18:12 CT head/brain wo con Stat Hospital Course (1) MRSA bacteremia: (2) Infective endocarditis: Blood clx 4/ with MRSA in 2/2 bottles, Repeat Blood clx / negative. Seen by ID and cardiology Continue Vanc for 6 weeks from negative blood culture 05/17 (estimated end date 06/28) for infective endocarditis as seen in TTE- 1.3 x 0.6 cm lesion present on the atrial aspect of the anterior mitral valve leaflet consistent with mitral valve endocarditis along with moderate MR Plan to repeat echo at the completion for evaluation. Monitor for embolic complications- currently none. Inflammatory markers stable to improving. Weekly labs while on antibiotics PICC line placed (3) Severe sepsis: Resolved. Sepsis was secondary to infected wound/osteomyelitis of the left ankle with MRSA bacteremia (4) Bone infection of left ankle: History of bimalleolar fracture of the ankle in March, Status post repair with hardware placement Has infection in the open wound and likely has osteomyelitis which is the source of sepsis S/P Left BKA performed by Dr Yo on 05/16/21 Seen by ortho- dressing removed, only local wound care. F/u in a week for stitch removal (5) Bimalleolar fracture of left ankle: As above (6) (HFpEF) heart failure with preserved ejection fraction: Euvolemic, on po lasix 60 mg daily Wean down oxygen tolerated at rehab. Recommended diligent IS use. (7) Diabetes mellitus, type 2: Uncontrolled DM, A1c 10.3 and with diabetic neuropathy Pharmacy on board for glycemic management in house Continue lantus novolog SSI- adjust as indicated at the rehab (8) Anemia: likely secondary to sepsis and some blood loss with surgery Hemoglobin dropped to 6.7 and s/p 2 units of blood transfusion during hospital course Currently Hb 8. No active bleed, Recheck intermittently (9) Essential hypertension: on lisinopril, toprol, lasix Total Time Total Time Spent Total Time Spent (In Minutes): 36 Discharge Plan Discharge Items Patient Disposition: Transfer Assisted Fac Reason For Visit: AMS Discharge Diagnosis: Severe sepsis due to left ankle infection/OM with MRSA bacteremia and infective endocarditis of mitral valve; s/p left BKA Activity: Per Instructions section Activity Comment: Mobilize as tolerated Non-emergency contact: Primary Care Provider Call non-emergency contact if: you have any medication questions, your symptoms worsen, you have a fever, your wound has increased redness, your wound has increased drainage and your wound pain has increased Follow-up/Referrals: Christiano Simon PA-C [Primary Care Provider] - Casa Yo MD [Physician] - (Orthopedic follow-up 3 weeks from surgery date.) Diet: Carb Consistent or DM2 Fluids: 2000ml (8 cups) Addtl Attending Provider Instructions: Leave dressing in place until return to Orthopedic Clinic follow-up Keep dressing clean, dry, an in place. See the orthopedic doctor within a week for stitches removal Continue the antibiotic course with IV vancomycin for at least 6 weeks (estimated end date 06/28/21)- Vancomycin dosing based on renal function and trough. You will need repeat echocardiogram around the completion of antibiotic to monitor endocarditis. Recommend weekly blood work (CBC, BMP, CRP, ESR) while on antibiotic. Recommend watching for embolic complications due to endocarditis as stated below. If worsening symptoms or the inflammatory markers (CRP/ESR) continue to trend up, please contact your family doctor or infectious disease. You can continue oxycodone 5 mg 1-2 tabs every 4-6 hours as needed for moderate to severe pain Recommend using incentive spirometer diligently so you can be weaned off your oxygen. Your rehab doctors will further manage your insulin as per the blood sugar readings. Pending Studies at Discharge: No Stand-Alone Forms: My [facility] Skilled Items Patient informed of condition?: Yes DNR: No Discharge Level of Care: Skilled Communicable Disease: No Discharge Prognosis: Stable Lines: PICC Urinary Catheter: No Medications and DC Order Prescriptions: New vancomycin 750 mg recon soln 750 mg IV Q12H 35 Days Qty: 1 RF: 0 Continued atorvastatin 80 mg tablet 80 mg PO HS RF: 0 donepezil 5 mg tablet 5 mg PO HS RF: 0 metoprolol succinate 50 mg tablet extended release 24 hr 100 mg PO QAM RF: 0 clopidogrel 75 mg tablet 75 mg PO DAILY RF: 0 lisinopril 10 mg tablet 10 mg PO DAILY RF: 0 furosemide 20 mg tablet 60 mg PO DAILY RF: 0 topiramate 50 mg tablet 50 mg PO BID RF: 0 duloxetine 30 mg capsule,delayed release(DR/EC) 30 mg PO QAM RF: 0 duloxetine 60 mg capsule,delayed release(DR/EC) 60 mg PO QAM RF: 0 acetaminophen [Tylenol Extra Strength] 500 mg Tablet 500 mg PO Q4 Qty: 100 RF: 0 bisacodyl 10 mg Suppository 10 mg [place] DAILY PRN (Reason: constipation) Qty: 50 RF: 0 magnesium oxide 400 mg (241.3 mg magnesium) Tablet 400 mg PO QAM Qty: 30 RF: 0 magnesium hydroxide [Milk of Magnesia] 400 mg/5 mL Suspension 30 ml PO Q6H PRN (Reason: stomach upset) Qty: 300 RF: 0 docusate sodium 100 mg Capsule 100 mg PO BID PRN (Reason: Constipation) Qty: 60 RF: 0 multivitamin with folic acid [Daily-Hardik (with folic acid)] 400 mcg Tablet 1 tab PO QAM Qty: 30 RF: 0 tramadol 50 mg tablet 50 mg PO Q6H PRN (Reason: Pain) RF: 0 aspirin [Aspir-Low] 81 mg Tablet,Delayed Release (Dr/Ec) 81 mg PO DAILY RF: 0 Basaglar KwikPen U-100 Insulin 100 unit/mL (3 mL) insulin pen 46 unit SUBCUT QAM RF: 0 gabapentin 300 mg capsule 300 mg PO QAM RF: 0 gabapentin 300 mg capsule 600 mg PO HS RF: 0 omeprazole 20 mg capsule,delayed release(DR/EC) 20 mg PO DAILY RF: 0 metoprolol succinate 50 mg tablet extended release 24 hr 50 mg PO QPM RF: 0 polyethylene glycol 3350 [Miralax] 17 gram powder in packet 17 g PO DAILY RF: 0 nitroglycerin 0.4 mg tablet, sublingual 0.4 mg sublingual .PRN/UD PRN (Reason: Chest Pain) RF: 0 insulin aspart U-100 [Novolog Flexpen U-100 Insulin] 100 unit/mL (3 mL) Insulin Pen 0 unit SUBCUT TID RF: 0 sennosides [Senokot] 8.6 mg tablet 17.2 mg PO HS PRN (Reason: Constipation) RF: 0 Discontinued cephalexin 500 mg capsule 500 mg PO Q6 30 Days Qty: 120 RF: 1 Discharge Orders: Discharge Order (Routine); Ordered 06/01/21 Ordered By: Nicanor Aragon/Other Patient Handouts: Infective Endocarditis Dc Admission Data Admit Date/Time: 05/14/21 21:46 Attending Provider: Nicanor Smith Admit Provider: Evaristo Gudino Primary Care Provider: Christiano Simon Other Providers: Vivian Faulkner ; Evaristo Gudino ; Loy Bauer ; Casa Yo ; Jose Benjamin ; Jessee Vera ; Denny Yo I. ; Jovi Renteria II ; Jessenia Rivers ; Bird Meek ; Gama Kirkpatrick ; Zafar Cota ; [facility]
== END 2021-06-01 17:33 | DRG 474 ==
LOC: ED 17:58 → SUATTDRO 21:46 → 2S 21:46 → 1E 05-15 07:38 → 2S 05-19 17:16 → 3E 05-24 00:57

== ENCOUNTER 2021-07-11 10:56 | Inpatient (IN) ==
--- NOTE | 2021-07-11 11:33 | Emergency Department Note ---
History of Present Illness General Chief complaint: Weakness Stated complaint: WEAKNESS Time Seen by Provider: 07/11/21 10:58 Source: RN notes reviewed Mode of arrival: EMS Limitations: altered mental status History of Present Illness Provider complaint: weakness, confusion, hallucinations This is a 60 yo female brought in by EMS due to concern for generalized weakness, confusion, and hallucinations. Patient states she started not feeling well a few days ago, and today began to notice hallucinations. Staff at the facility where she resides state today she was unable to transfer into wheelchair which is her baseline status and she seemed more confused. Patient states she also has been having hallucinations, where she is seeing her daughters in the room which she recognizes that they are not there. Patient with recent osteomyelitis and was getting IV vancomycin infusions however the stopped several weeks ago. Patient denies headaches, dizziness, fevers or chills. She states she has been having intermittent chest and abdominal pain, denies trouble breathing. She states she does not have any current pain and has not had any more recently. She denies vomiting or change in stools. Patient has had a prior left BKA. Patient denies any prior history of GI bleed or peptic ulcer disease. Patient does take aspirin and Plavix. Pt seen during a time of high acuity and national emergency pandemic while wearing PPE. Home Medications Medication Instructions Recorded Confirmed Type atorvastatin 80 mg tablet 80 mg PO HS 03/16/21 07/11/21 History clopidogrel 75 mg tablet 75 mg PO DAILY 03/16/21 07/11/21 History donepezil 5 mg tablet 5 mg PO HS 03/16/21 07/11/21 History duloxetine 30 mg capsule,delayed 30 mg PO [facility] 03/16/21 07/11/21 History release duloxetine 60 mg capsule,delayed 60 mg PO M 03/16/21 07/11/21 History release furosemide 20 mg tablet 60 mg PO DAILY 03/16/21 07/11/21 History lisinopril 10 mg tablet 10 mg PO DAILY 03/16/21 07/11/21 History metoprolol succinate 50 mg 100 mg PO QAM 03/16/21 07/11/21 History tablet,extended release 24 hr topiramate 50 mg tablet 50 mg PO BID 03/16/21 07/11/21 History acetaminophen 500 mg tablet 500 mg PO Q4 #100 tab 03/29/21 07/11/21 Rx (Tylenol Extra Strength) bisacodyl 10 mg rectal suppository 10 mg ME DAILY PRN #50 ea 03/29/21 07/11/21 Rx docusate sodium 100 mg capsule 100 mg PO BID PRN #60 cap 03/29/21 07/11/21 Rx magnesium hydroxide 400 mg/5 mL 30 ml PO Q6H PRN #300 ml 03/29/21 07/11/21 Rx oral suspension (Milk of Magnesia) magnesium oxide 400 mg (241.3 mg 400 mg PO QAM #30 tab 03/29/21 07/11/21 Rx magnesium) tablet multivitamin with folic acid 400 1 tab PO QAM #30 tab 03/29/21 07/11/21 Rx mcg tablet (Daily-Hardik (with folic acid)) aspirin 81 mg tablet,delayed 81 mg PO DAILY 05/14/21 07/11/21 History release gabapentin 300 mg capsule 300 mg PO QAM 05/14/21 07/11/21 History gabapentin 300 mg capsule 600 mg PO HS 05/14/21 07/11/21 History insulin aspart U-100 100 unit/mL 0 unit SUBCUT TID 05/14/21 07/11/21 History (3 mL) subcutaneous pen (Novolog Flexpen U-100 Insulin aspart) insulin glargine 100 unit/mL (3 46 unit SUBCUT QAM 05/14/21 07/11/21 History mL) subcutaneous pen (Basaglar KwikPen U-100 Insulin) metoprolol succinate 50 mg 50 mg PO QPM 05/14/21 07/11/21 History tablet,extended release 24 hr nitroglycerin 0.4 mg sublingual 0.4 mg SUBLINGUAL .PRN/UD PRN 05/14/21 07/11/21 History tablet omeprazole 20 mg capsule,delayed 20 mg PO DAILY 05/14/21 07/11/21 History release polyethylene glycol 3350 17 gram 17 g PO DAILY 05/14/21 07/11/21 History oral powder packet (Miralax) sennosides 8.6 mg tablet (Senokot) 17.2 mg PO HS PRN 05/14/21 07/11/21 History tramadol 50 mg tablet 50 mg PO Q6H PRN 05/14/21 07/11/21 History bumetanide 2 mg tablet 2 mg PO BID 07/01/21 07/11/21 History cyclobenzaprine 10 mg tablet 10 mg PO TID PRN 07/01/21 07/11/21 History fluticasone propionate 50 2 spray INTRANASAL DAILY 07/01/21 07/11/21 History mcg/actuation nasal spray,suspension folic acid 400 mcg tablet 0.4 mg PO DAILY 07/01/21 07/11/21 History pantoprazole 40 mg tablet,delayed 40 mg PO DAILY 07/01/21 07/11/21 History release (Protonix) vancomycin 750 mg intravenous 750 mg IV Q12 07/01/21 07/11/21 History solution Allergies Allergy/AdvReac Type Severity Reaction Status Date / Time latex Allergy Mild Rash Verified 07/11/21 13:17 aspirin Allergy Unknown UNKNOWN Verified 07/11/21 13:17 Past Med/Surg History Medical History Anxiety Bone infection of left ankle Carpal tunnel syndrome, left Chronic congestive heart failure with left ventricular diastolic dysfunction Coronary artery disease Diabetes mellitus, type 2 History of left below knee amputation Psychotic disorder Tobacco use disorder Ulnar neuropathy at elbow of left upper extremity Surgical History Status post cholecystectomy Status post coronary artery bypass grafting Status post hysterectomy Status post ORIF of fracture of ankle R, 2017 Family History Other Diabetes Heart disease Social History Smoking Status: Former smoker Tobacco Type: Cigarettes packs per day: 1; Years Smoked: 35; Second Hand Exposure: Yes; Hx Alcohol Use: No Hx Substance Use: No Preferred Language: Luxembourger Communication Ability: Effective [employer] Required: No Beliefs That Will Affect Care: Protestant marital status: Current Living Situation: [facility] Other Information That Helps Us Care for You: No Feels Safe at Home: Yes Safety Concerns: Feels Safe At This Time Assistive Devices: Wheelchair Review of Systems A total of 10 systems reviewed and were otherwise negative All systems reviewed & are unremarkable except as noted in HPI & below Physical Exam Vital Signs Vital Signs - 24 hr 07/11/21 11:07 07/11/21 11:25 07/11/21 11:52 Temperature 37.4 C Temperature Source Oral Pulse Rate 74 Pulse Rate [Apical] 76 Respiratory Rate 22 22 20 Respiratory Effort / Characteristics Non-Labored Non-Labored Non-Labored Respiratory Depth Normal Blood Pressure 127/63 Blood Pressure [Right Arm] 127/63 Blood Pressure Mean 84 Blood Pressure Mean [Right Arm] 84 Blood Pressure Position Lying Pulse Oximetry 100 100 99 Oxygen Delivery Method Nasal Cannula Nasal Cannula Nasal Cannula Oxygen Flow Rate 3 3 3 Sepsis Recent Fever Within 48 Hours No Sepsis New/Unexplained Change in Mental Status Yes Sepsis Action Taken by Nursing No Action Required Oxygen Flow Rate - Titration 3 07/11/21 12:37 Temperature Temperature Source Pulse Rate Pulse Rate [Apical] 76 Respiratory Rate 21 Respiratory Effort / Characteristics Respiratory Depth Blood Pressure Blood Pressure [Right Arm] 127/63 Blood Pressure Mean Blood Pressure Mean [Right Arm] 84 Blood Pressure Position Pulse Oximetry 100 Oxygen Delivery Method Nasal Cannula Oxygen Flow Rate 3 Sepsis Recent Fever Within 48 Hours Sepsis New/Unexplained Change in Mental Status Sepsis Action Taken by Nursing Oxygen Flow Rate - Titration GENERAL: alert, ill appearing, well nourished, no distress, non-toxic EYE EXAM: normal conjunctiva, PERRL and EOM's grossly intact OROPHARYNX: no exudate, no erythema, lips, buccal mucosa, and tongue normal and mucous membranes are moist NECK: supple, no nuchal rigidity, no adenopathy, non-tender LUNGS: Clear to auscultation. Normal chest wall mechanics, no w/r/r HEART: no murmurs, S1 normal and S2 normal ABDOMEN: abdomen soft, non-tender, normo-active bowel sounds, no masses, no natasha ound or guarding. BACK: Back is symmetrical on inspection and there is no deformity, no midline tenderness, no CVA tenderness. SKIN: no rashes and no bruising, pallor UPPER EXTREMITIES: upper extremities are grossly normal. FROM, nml pulses b/l. LOWER EXTREMITIES: No pitting edema. FROM, nml pulses b/l. NEURO EXAM: Normal sensorium, cranial nerves II-XII grossly intact, normal speech, no gross weakness of arms, no gross weakness of legs. Gross sensation intact. Course Course 1250: Discussed with daughter, Perla. She gives verbal permission for blood transfusion. Administered Medications Acetaminophen (Acetaminophen 325 Mg Tab) 650 mg PO Q4H PRN PRN Reason: Pain or Fever Stop: 08/10/21 14:17 Last Admin: 07/12/21 09:00 Dose: 650 mg Documented by: [id number] Acetaminophen (Acetaminophen 500 Mg Tab) 500 mg PO Q4H [facility] Stop: 08/10/21 17:31 Last Admin: 07/12/21 18:32 Dose: 500 mg Documented by: [id number] Admin: 07/12/21 15:14 Dose: 500 mg Documented by: [id number] Admin: 07/12/21 10:00 Dose: Not Given Documented by: [id number] Admin: 07/12/21 05:58 Dose: Not Given Documented by: [id number] Admin: 07/12/21 04:37 Dose: Not Given Documented by: [id number] Admin: 07/11/21 21:10 Dose: Not Given Documented by: [id number] Admin: 07/11/21 18:49 Dose: 500 mg Documented by: [id number] Atorvastatin Calcium (Atorvastatin 40 Mg Tab) 80 mg PO HS [facility]ANTHA Stop: 08/10/21 20:59 Last Admin: 07/11/21 21:09 Dose: Not Given Documented by: [id number] Cyclobenzaprine HCl (Cyclobenzaprine Hcl 10 Mg Tab) 10 mg PO TID PRN PRN Reason: back spasms Stop: 08/10/21 17:31 Last Admin: 07/12/21 09:00 Dose: 10 mg Documented by: [id number] Fluticasone Propionate (Fluticasone Propionate Na Spr 16 Gm Btl) 2 sprays NA DAILY [facility]ANTHA Stop: 08/11/21 08:59 Last Admin: 07/12/21 09:02 Dose: 2 sprays Documented by: [id number] Folic Acid (Folic Acid 400 Mcg Tab) 400 mcg PO DAILY [facility]AN[facility] Stop: 08/11/21 08:59 Last Admin: 07/12/21 09:01 Dose: 400 mcg Documented by: [id number] Sodium Chloride (Nss 1000ml) 1,000 mls @ 75 mls/hr IV .[id number] SAMANTHA Stop: 08/10/21 11:29 Last Admin: 07/12/21 15:13 Dose: Not Given Documented by: [id number] Infusion: 07/12/21 14:10 Dose: 0 mls/hr Documented by: [id number] Admin: 07/12/21 05:58 Dose: 125 mls/hr Documented by: [id number] Infusion: 07/12/21 05:58 Dose: 125 mls/hr Documented by: [id number] Admin: 07/11/21 23:52 Dose: 125 mls/hr Documented by: [id number] Infusion: 07/11/21 23:14 Dose: 0 mls/hr Documented by: [id number] Infusion: 07/11/21 19:33 Dose: 0 mls/hr Documented by: [id number] Admin: 07/11/21 12:15 Dose: 125 mls/hr Documented by: [id number] Pantoprazole Sodium 40 mg/ (Dextrose) 100 mls @ 20 mls/hr IV Q5H [facility] Stop: 08/11/21 11:14 Last Admin: 07/12/21 18:32 Dose: 8 mg/hr, 20 mls/hr Documented by: [id number] Insulin Aspart (Insulin Aspart Per Unit) 0 units SC Q6 [facility] Stop: 08/10/21 17:59 Last Admin: 07/12/21 17:21 Dose: 7 units Documented by: [id number] Cosigned by: [id number] Admin: 07/12/21 15:14 Dose: 5 units Documented by: [id number] Cosigned by: [id number] Admin: 07/12/21 07:15 Dose: Not Given Documented by: [id number] Admin: 07/11/21 23:52 Dose: Not Given Documented by: [id number] Cosigned by: [id number] Admin: 07/11/21 18:46 Dose: 1 units Documented by: [id number] Cosigned by: [id number] Insulin Glargine (Insulin Glargine Solostar 100 Units/Ml 3 Ml Pen) 4 units SC BID [facility] Stop: 08/10/21 20:59 Last Admin: 07/12/21 10:49 Dose: Not Given Documented by: [id number] Admin: 07/11/21 22:58 Dose: 4 units Documented by: [id number] Cosigned by: [id number] Magnesium Oxide (Magnesium Oxide 400 Mg Tab) 400 mg PO QAM [facility] Stop: 08/11/21 08:59 Last Admin: 07/12/21 09:02 Dose: 400 mg Documented by: [id number] Metoprolol Succinate (Metoprolol Succ 50mg Ext Rel Tab) 100 mg PO QAM [facility] Stop: 08/11/21 08:59 Last Admin: 07/12/21 09:02 Dose: 100 mg Documented by: [id number] Metoprolol Succinate (Metoprolol Succ 50mg Ext Rel Tab) 50 mg PO QPM [facility] Stop: 08/10/21 20:59 Last Admin: 07/11/21 21:10 Dose: Not Given Documented by: [id number] Multivitamins (Multivitamin Tab) 1 tab PO QAM [facility] Stop: 08/11/21 08:59 Last Admin: 07/12/21 09:01 Dose: 1 tab Documented by: [id number] Topiramate (Topiramate 50 Mg Tab) 50 mg PO BID [facility] Stop: 08/10/21 20:59 Last Admin: 07/12/21 09:01 Dose: 50 mg Documented by: [id number] Admin: 07/11/21 21:10 Dose: Not Given Documented by: [id number] Discontinued Medications Pantoprazole Sodium 80 mg/ (Dextrose) 100 mls @ 400 mls/hr IV NOW ONE Stop: 07/11/21 15:14 Last Infusion: 07/11/21 19:34 Dose: 0 mls/hr Documented by: [id number] Admin: 07/11/21 16:49 Dose: 400 mls/hr Documented by: [id number] Pantoprazole Sodium 40 mg/ (Syringe) 10 mls @ 5 mls/min IV BID [facility] Stop: 08/10/21 20:59 Last Admin: 07/12/21 11:19 Dose: Not Given Documented by: [id number] Admin: 07/11/21 23:07 Dose: 5 mls/min Documented by: [id number] Ondansetron HCl (Ondansetron Inj 2 Mg/Ml 2 Ml Vial) Confirm Administered Dose 4 mg .ROUTE .STK-MED ONE Stop: 07/11/21 18:56 Last Admin: 07/11/21 20:13 Dose: Not Given Documented by: [id number] Medical Decision Making Differential Diagnosis Differential diagnoses includes but is not limited to toxic, metabolic, infectious, traumatic, cardiac, neurologic, hematologic, psychiatric and inflammatory etiologies. Medical Records Attestation: I reviewed the patient's medical records. Home Medications Current Medication List: was personally reviewed by me Laboratory Data Attestation: I reviewed the patient's lab results. Result diagrams: 07/12/21 05:12 07/12/21 05:12 Lab Results 07/11/21 07/11/21 07/11/21 Range/Units 11:09 11:09 11:09 WBC 13.36 H (4.8-10.8) K/uL RBC 2.11 L (4.2-5.4) M/uL Hgb 5.9 L* (12.0-16.0) g/dL Hct 19.7 L* (37-47) % MCV 93.4 (80-100) fL MCH 28.0 (25-34) pg MCHC 29.9 L (32-36) g/dL RDW Std Deviation 56.4 H (36.4-46.3) fL RDW Coeff of Fabio 16.4 H (11.5-14.5) % Plt Count 291 (130-400) K/uL MPV 10.2 (7.4-10.4) fL Neutrophils % (Manual) 71.0 % Lymphocytes % (Manual) 17.0 % Monocytes % (Manual) 10.0 % Eosinophils % (Manual) 1.0 % Basophils % (Manual) 1.0 % Neutrophils # (Manual) 9.49 H (1.4-6.5) K/uL Total Absolute Neuts 9.49 H (1.4-6.5) K/uL Lymphocytes # (Manual) 2.27 (1.2-3.4) K/uL Total Abs Lymphocytes 2.27 (1.2-3.4) K/uL Monocytes # (Manual) 1.34 H (0.11-0.59) K/uL Eosinophils # (Manual) 0.13 (0-0.5) K/uL Basophils # (Manual) 0.13 (0-0.2) K/uL Hypochromasia Present PT (9.0-12.0) Seconds INR (0.9-1.1) Sodium (136-145) mmol/L Potassium (3.5-5.1) mmol/L Chloride (98-107) mmol/L Carbon Dioxide (21-32) mmol/L Anion Gap (3-11) BUN (6-23) mg/dl Creatinine (0.6-1.2) mg/dl Est Cr Clr Drug Dosing ml/min Est GFR ( Amer) ml/min Est GFR (Non-Af Amer) ml/min BUN/Creatinine Ratio (10-20) Glucose (70-99(Fasting)) mg/dl POC Glucose (70-99) mg/dl Lactate (0.4-2.0) mmol/L Calcium (8.5-10.1) mg/dl Magnesium (1.7-2.4) mg/dl Total Bilirubin (0.2-1.0) mg/dl AST (13-39) U/L ALT (7-52) U/L Alkaline Phosphatase (34-104) U/L Troponin I High Sens 65.7 H* (0-14) pg/ml Total Protein (6.0-8.3) gm/dl Albumin (3.4-5.0) gm/dl Globulin (2.5-4.0) gm/dl Albumin/Globulin Ratio (0.9-2) Procalcitonin (0-0.5) ng/ml Blood Type A Positive Antibody Screen NEGATIVE Crossmatch See Detail 07/11/21 07/11/21 07/11/21 Range/Units 11:09 11:09 11:09 WBC (4.8-10.8) K/uL RBC (4.2-5.4) M/uL Hgb (12.0-16.0) g/dL Hct (37-47) % MCV (80-100) fL MCH (25-34) pg MCHC (32-36) g/dL RDW Std Deviation (36.4-46.3) fL RDW Coeff of Fabio (11.5-14.5) % Plt Count (130-400) K/uL MPV (7.4-10.4) fL Neutrophils % (Manual) % Lymphocytes % (Manual) % Monocytes % (Manual) % Eosinophils % (Manual) % Basophils % (Manual) % Neutrophils # (Manual) (1.4-6.5) K/uL Total Absolute Neuts (1.4-6.5) K/uL Lymphocytes # (Manual) (1.2-3.4) K/uL Total Abs Lymphocytes (1.2-3.4) K/uL Monocytes # (Manual) (0.11-0.59) K/uL Eosinophils # (Manual) (0-0.5) K/uL Basophils # (Manual) (0-0.2) K/uL Hypochromasia PT 10.4 (9.0-12.0) Seconds INR 1.0 (0.9-1.1) Sodium 133 L (136-145) mmol/L Potassium 4.3 (3.5-5.1) mmol/L Chloride 87 L (98-107) mmol/L Carbon Dioxide 38 H (21-32) mmol/L Anion Gap 8 (3-11) BUN 73 H (6-23) mg/dl Creatinine 1.38 H (0.6-1.2) mg/dl Est Cr Clr Drug Dosing 39.1 ml/min Est GFR ( Amer) 47.4 ml/min Est GFR (Non-Af Amer) 40.9 ml/min BUN/Creatinine Ratio 52.9 H (10-20) Glucose 279 H (70-99(Fasting)) mg/dl POC Glucose (70-99) mg/dl Lactate (0.4-2.0) mmol/L Calcium 9.3 (8.5-10.1) mg/dl Magnesium 2.4 (1.7-2.4) mg/dl Total Bilirubin 0.5 (0.2-1.0) mg/dl AST 23 (13-39) U/L ALT 16 (7-52) U/L Alkaline Phosphatase 66 (34-104) U/L Troponin I High Sens (0-14) pg/ml Total Protein 7.2 (6.0-8.3) gm/dl Albumin 3.7 (3.4-5.0) gm/dl Globulin 3.5 (2.5-4.0) gm/dl Albumin/Globulin Ratio 1.1 (0.9-2) Procalcitonin < 0.05 (0-0.5) ng/ml Blood Type Antibody Screen Crossmatch 07/11/21 07/11/21 Range/Units 11:14 11:35 WBC (4.8-10.8) K/uL RBC (4.2-5.4) M/uL Hgb (12.0-16.0) g/dL Hct (37-47) % MCV (80-100) fL MCH (25-34) pg MCHC (32-36) g/dL RDW Std Deviation (36.4-46.3) fL RDW Coeff of Fabio (11.5-14.5) % Plt Count (130-400) K/uL MPV (7.4-10.4) fL Neutrophils % (Manual) % Lymphocytes % (Manual) % Monocytes % (Manual) % Eosinophils % (Manual) % Basophils % (Manual) % Neutrophils # (Manual) (1.4-6.5) K/uL Total Absolute Neuts (1.4-6.5) K/uL Lymphocytes # (Manual) (1.2-3.4) K/uL Total Abs Lymphocytes (1.2-3.4) K/uL Monocytes # (Manual) (0.11-0.59) K/uL Eosinophils # (Manual) (0-0.5) K/uL Basophils # (Manual) (0-0.2) K/uL Hypochromasia PT (9.0-12.0) Seconds INR (0.9-1.1) Sodium (136-145) mmol/L Potassium (3.5-5.1) mmol/L Chloride (98-107) mmol/L Carbon Dioxide (21-32) mmol/L Anion Gap (3-11) BUN (6-23) mg/dl Creatinine (0.6-1.2) mg/dl Est Cr Clr Drug Dosing ml/min Est GFR ( Amer) ml/min Est GFR (Non-Af Amer) ml/min BUN/Creatinine Ratio (10-20) Glucose (70-99(Fasting)) mg/dl POC Glucose 292 H (70-99) mg/dl Lactate 2.0 (0.4-2.0) mmol/L Calcium (8.5-10.1) mg/dl Magnesium (1.7-2.4) mg/dl Total Bilirubin (0.2-1.0) mg/dl AST (13-39) U/L ALT (7-52) U/L Alkaline Phosphatase (34-104) U/L Troponin I High Sens (0-14) pg/ml Total Protein (6.0-8.3) gm/dl Albumin (3.4-5.0) gm/dl Globulin (2.5-4.0) gm/dl Albumin/Globulin Ratio (0.9-2) Procalcitonin (0-0.5) ng/ml Blood Type Antibody Screen Crossmatch Imaging Data Radiologist's Impression: Chest X-Ray 07/11/21 11:21 SINGLE VIEW CHEST CLINICAL HISTORY: Sepsis. FINDINGS: An AP, portable, upright chest radiograph is compared to study dated 05/29/2021 correlation is made with chest CT dated 03/16/2021. The patient is status post midline sternotomy. The heart is enlarged noting atherosclerotic calcification of the thoracic aorta. The pulmonary vasculature is noncongested. Atelectasis is noted at the lung bases. The lungs and pleural spaces are otherwise clear. No pneumothorax is seen. The skeletal structures are osteopenic. The bony thorax is grossly intact. IMPRESSION: Cardiomegaly with no acute cardiopulmonary abnormality. ACT 112: Negative or not required by law. Electronically signed by: Geovani Dumont M.D. 07/11/2021 12:53 PM MDM Narrative An order was placed for continuous cardiac monitoring. The monitor shows a rate of _86_ with normal sinus__ rhythm. This is a 60-year-old female presents emergency department from a local facility due to concern for increased weakness, slight confusion which she states are hallucinations, and complicated past medical history. Patient was afebrile and hemodynamically stable. Patient with several recent blood transfusions due to issues with ongoing anemia. Patient found to have a hemoglobin of 5.9. Type and screen added. Verbal consent given by daughter for blood transfusion. 2 units were ordered. Patient denied any history of GI bleed. On prior admission, no obvious GI evaluation noted. BUN does appear slightly elevated. Hemoccult of stools was ordered. Patient was seen on day of high volume and acuity. Blood was started while patient was still in the emergency room. Case discussed with the hospitalist for additional evaluation and management. Patient had a soft nontender abdomen and denied any complaints of chest pain or abdominal pain here, I feel given patient's significant comorbidities and history as well as disproportionately elevated BUN, GI bleed is possible. Impression & Plan Generalized weakness, Anemia, Hyperglycemia, Elevated troponin Discharge Plan Visit Data Chief Complaint: Weakness Stated Complaint: WEAKNESS ED Provider: Elsa Vaughan Discharge Problem: Generalized weakness, Anemia, Hyperglycemia, Elevated troponin Patient Disposition: Admitted As Inpatient Discharge Instructions Interventions: ED Discharge Assessment Last Done: 07/11/21 19:10 Discharge Problem: Anemia Qualifiers: Anemia type: unspecified type Qualified Code(s): D64.9 - Anemia, unspecified
[2021-07-11 11:35] LABS: Prothrombin Time 10.4 Seconds (9.0-12.0)
[2021-07-11 11:39] LABS: Hematocrit (blood only) 19.7 % (37-47); Hemoglobin 5.9 g/dL (12.0-16.0); Mean Corpuscular Hgb Conc 29.9 g/dL (32-36); Mean Corpuscular Volume 93.4 fL (80-100); Mean Platelet Volume 10.2 fL (7.4-10.4); Platelet Count 291 K/uL (130-400); RDW Coefficient of Variation 16.4 % (11.5-14.5); RDW Standard Deviation 56.4 fL (36.4-46.3); Red Blood Count 2.11 M/uL (4.2-5.4); White Blood Count 13.36 K/uL (4.8-10.8)
[2021-07-11 11:42] LABS: Albumin Globulin Ratio 1.1 (0.9-2); Albumin Level 3.7 gm/dl (3.4-5.0); BUN Creatinine Ratio 52.9 (10-20); Bilirubin,Total 0.5 mg/dl (0.2-1.0); Calcium 9.3 mg/dl (8.5-10.1); Creatinine Clr Calc Pharmacy 39.1 ml/min; Est GFR (African American) 47.4 ml/min; Est GFR (Non-African American) 40.9 ml/min; Globulin 3.5 gm/dl (2.5-4.0); Magnesium 2.4 mg/dl (1.7-2.4); Potassium 4.3 mmol/L (3.5-5.1); Total Protein 7.2 gm/dl (6.0-8.3)
[2021-07-11] MEDS ORDERED: SODIUM CHLORIDE 0.9% 250 ML IV PRN (11:44)
[2021-07-11 11:56] LABS: Hypochromasia Present
[2021-07-11 12:07] LABS: ALC (manual) 2.27 K/uL (1.2-3.4); ANC (manual) 9.49 K/uL (1.4-6.5); Basophils # (manual) 0.13 K/uL (0-0.2); Eosinophils # (manual) 0.13 K/uL (0-0.5); Lymphocytes # (manual) 2.27 K/uL (1.2-3.4); Monocytes # (manual) 1.34 K/uL (0.11-0.59); Neutrophils # (manual) 9.49 K/uL (1.4-6.5)
[2021-07-11] MEDS: SODIUM CHLORIDE 0.9% 1000ML 1,000 ML IV SCH ×2 (12:15→23:52)
--- NOTE | 2021-07-11 12:55 | XRay Report ---
SINGLE VIEW CHEST CLINICAL HISTORY: Sepsis. FINDINGS: An AP, portable, upright chest radiograph is compared to study dated 05/29/2021 correlation is made with chest CT dated 03/16/2021. The patient is status post midline sternotomy. The heart is enl arged noting atherosclerotic calcification of the thoracic aorta. The pulmonary vasculature is noncon gested. Atelectasis is noted at the lung bases. The lungs and pleural spaces are otherwise clear. No pneumothorax is seen. The skeletal structures are osteopenic. The bony thorax is grossly intact. IMPRESSION: Cardiomegaly with no acute cardiopulmonary abnormality. ACT 112: Negative or not required by law. Electronically signed by: Geovani Dumont M.D. 07/11/2021 12:53 PM
[2021-07-11] MEDS ORDERED: ALUMINUM/MAGNESIUM SUSP 30 ML UDC PO PRN (14:18)
[2021-07-11] MEDS ORDERED: MAGNESIUM HYDROXIDE SUSP 30 ML UDC PO PRN (14:18)
[2021-07-11] MEDS ORDERED: NITROGLYCERIN SL 0.4 MG/TAB TAB SL PRN (14:18)
[2021-07-11] MEDS ORDERED: ACETAMINOPHEN 325 MG TAB PO PRN (14:18)
[2021-07-11] MEDS ORDERED: CARBOHYDRATES FOR HYPOGLYCEMIA PO PRN (14:32)
[2021-07-11] MEDS ORDERED: GLUCAGON FOR INJ 1 MG VIAL SQ PRN (14:32)
[2021-07-11] MEDS ORDERED: DEXTROSE 50% 50 ML SYRINGE IV PRN (14:32)
[2021-07-11] MEDS ORDERED: GLUCOSE 40% GEL 15 GM TUBE PO PRN (14:32)
[2021-07-11] MEDS ORDERED: GLUCOSE 10 TABS/TUBE PO PRN (14:32)
--- NOTE | 2021-07-11 14:32 | History & Physical Report ---
Date of Service July 11, 2021 Assessment & Plan (1) Anemia: Plan: #. Likely acute metabolic encephalopathy #. Acute on chronic anemia #. Likely UGI bleed #. Weakness Patient presents with worsening confusion since last 2 to 3 days [employer]. Pt from [facility] [[phone]]. Patient noted to have hallucination on the day of arrival and also in the ED at bedside exam. Baseline hemoglobin around 7.5-8 lately. Admitting hemoglobin of 5.9 with elevated BUN, concern of blood in stool/dark stool per patient. FOBT pending, transfuse to maintain hemoglobin around 7.5, blood transfusion ordered in the ED. PPI IV twice daily, GI consult, n.p.o. except meds. Monitor H&H every 8 hours and as needed. Hold all antiplatelets and NSAIDs for now. Encephalopathy likely secondary to uremia from likely GI bleed, hold all neuropsychotropic medications as able. Patient on tramadol and Tylenol [id number] for her LLE BKA stump pain management. We will continue with Tylenol for now. PT OT when able. #. Elevated troponin Admitting troponin was 65.7 with admitting EKG without acute ST or T changes. Patient with no chest pain, trend troponin, if uptrending consider cardiology consult. Consider echo if uptrending troponin. #. Leukocytosis Could be from dehydration, procalcitonin at admission negative, patient afebrile. Admitting CXR with no acute finding. Monitor off antibiotic. Await Blood culture #. Mild hyponatremia Admitting sodium of 133, compatible with her recent sodium level. Monitor BMP daily, expect to improve with improvement in her overall conditi on/diet. #. GUY BUN elevated to 73 out of proportion to creatinine elevation, likely secondary to upper GI bleed. Admitting creatinine of 1.38, per RN at [facility] her urine looks concentrated lately. Holding nephrotoxics Continue with IV fluids, patient to get blood transfusion, monitor BMP daily. Likely prerenal from dehydration. #. Other chronic medical conditions: Mitral valve infective endocarditis, CAD status post CABG, DM with PDN, GERD Aspirin and Plavix on hold due to GI bleed concern. Tramadol and other neuro psychotropic medications on hold due to acute metabolic encephalopathy. Can use lidocaine patch for pain management, continue with Tylenol. On Sliding scal insulin. Continue other home meds as and when appropriate. #. DVT prophylaxis: SCDs, concerns for GI bleeding. #. Full code History of Present Illness Chief Complaint: Weakness, altered mental status. Primary Care Provider: [facility] 60-year-old lady with PMH of infective endocarditis status post IV vancomycin [completed recently, 1 to 2 weeks ago], bimalleolar fracture of left ankle March 2021 status post hardware placement followed by left ankle OM s/p left BKA by Dr. Yo on 05/16/2021, HFpEF, DM with PDN, CAD status post CABG, HTN, nonrheumatic mitral regurgitation, CAP, GERD, panic disorder, anxiety, tobacco abuse disorder was brought to the ED 07/11 due to worsening weakness and worsening confusion. Of note, patient was recently treated for mitral valve infective endocarditis in May 2021 with IV vancomycin for total of 6 weeks which she completed 1 to 2 weeks ago per [facility]. Patient is coming from [facility]. Patient though oriented x4 is very drowsy and frequently drifts away from conversation and history/ROS did not seem very reliable. Hence history taken from the patient was confirmed with the nurse from [facility] who is taking care of the patient. For this, telephone conversation was held with the nurse from [facility]. Patient has insight that she was hallucinating and was more confused and hence she was brought to the ED. She denied any chest pain, she does complain of blood in the stool and black stool but could not give any further specifics on it. She denies any pain or burning with passing urine. Pt denies headache, fever, dizziness. She also complains of having low back pain. ROS were limited due to her drifting away from conversation very frequently and her being very drowsy. At bedside exam, patient was hallucinating [seeing people fighting in the bathroom]. Per [facility] nurse, patient had been tired and weak since last 2 to 3 days, over the midnight prior to arrival patient was found to be confused with tremor and patient was very weak/"groggy". At baseline patient typically is conversive, AOx4. In the morning, patient was very weak when trying to transfer to wheelchair, patient looked very dehydrated, also nurse commented that her urine looks very concentrated lately. Patient does take tramadol [id number] alternating with Tylenol for her LLE stump site pain. Patient also does have low back pain which is likely chronic per nurse. She denies any recent blood or dark stool but confirms that there was blood in the stool several weeks ago. Per her knowledge, patient does not do any smoking/alcohol/recreational drug. Patient full code per [facility] nurse. Allergies Allergy/AdvReac Type Severity Reaction Status Date / Time latex Allergy Mild Rash Verified 07/11/21 13:17 aspirin Allergy Unknown UNKNOWN Verified 07/11/21 13:17 Home Medications Medication Instructions Recorded Confirmed Type atorvastatin 80 mg tablet 80 mg PO HS 03/16/21 07/11/21 History clopidogrel 75 mg tablet 75 mg PO DAILY 03/16/21 07/11/21 History donepezil 5 mg tablet 5 mg PO HS 03/16/21 07/11/21 History duloxetine 30 mg capsule,delayed 30 mg PO QAM 03/16/21 07/11/21 History release duloxetine 60 mg capsule,delayed 60 mg PO QAM 03/16/21 07/11/21 History release furosemide 20 mg tablet 60 mg PO DAILY 03/16/21 07/11/21 History lisinopril 10 mg tablet 10 mg PO DAILY 03/16/21 07/11/21 History metoprolol succinate 50 mg 100 mg PO QAM 03/16/21 07/11/21 History tablet,extended release 24 hr topiramate 50 mg tablet 50 mg PO BID 03/16/21 07/11/21 History acetaminophen 500 mg tablet 500 mg PO Q4 #100 tab 03/29/21 07/11/21 Rx (Tylenol Extra Strength) bisacodyl 10 mg rectal suppository 10 mg LA DAILY PRN #50 ea 03/29/21 07/11/21 Rx docusate sodium 100 mg capsule 100 mg PO BID PRN #60 cap 03/29/21 07/11/21 Rx magnesium hydroxide 400 mg/5 mL 30 ml PO Q6H PRN #300 ml 03/29/21 07/11/21 Rx oral suspension (Milk of Magnesia) magnesium oxide 400 mg (241.3 mg 400 mg PO QAM #30 tab 03/29/21 07/11/21 Rx magnesium) tablet multivitamin with folic acid 400 1 tab PO QAM #30 tab 03/29/21 07/11/21 Rx mcg tablet (Daily-Hardik (with folic acid)) aspirin 81 mg tablet,delayed 81 mg PO DAILY 05/14/21 07/11/21 History release gabapentin 300 mg capsule 300 mg PO QAM 05/14/21 07/11/21 History gabapentin 300 mg capsule 600 mg PO HS 05/14/21 07/11/21 History insulin aspart U-100 100 unit/mL 0 unit SUBCUT TID 05/14/21 07/11/21 History (3 mL) subcutaneous pen (Novolog Flexpen U-100 Insulin aspart) insulin glargine 100 unit/mL (3 46 unit SUBCUT QAM 05/14/21 07/11/21 History mL) subcutaneous pen (Basaglar KwikPen U-100 Insulin) metoprolol succinate 50 mg 50 mg PO QPM 05/14/21 07/11/21 History tablet,extended release 24 hr nitroglycerin 0.4 mg sublingual 0.4 mg SUBLINGUAL .PRN/UD PRN 05/14/21 07/11/21 History tablet omeprazole 20 mg capsule,delayed 20 mg PO DAILY 05/14/21 07/11/21 History release polyethylene glycol 3350 17 gram 17 g PO DAILY 05/14/21 07/11/21 History oral powder packet (Miralax) sennosides 8.6 mg tablet (Senokot) 17.2 mg PO HS PRN 05/14/21 07/11/21 History tramadol 50 mg tablet 50 mg PO Q6H PRN 05/14/21 07/11/21 History bumetanide 2 mg tablet 2 mg PO BID 07/01/21 07/11/21 History cyclobenzaprine 10 mg tablet 10 mg PO TID PRN 07/01/21 07/11/21 History fluticasone propionate 50 2 spray INTRANASAL DAILY 07/01/21 07/11/21 History mcg/actuation nasal spray,suspension folic acid 400 mcg tablet 0.4 mg PO DAILY 07/01/21 07/11/21 History pantoprazole 40 mg tablet,delayed 40 mg PO DAILY 07/01/21 07/11/21 History release (Protonix) vancomycin 750 mg intravenous 750 mg IV Q12 07/01/21 07/11/21 History solution Past Med/Surg History Medical History Anxiety Bone infection of left ankle Carpal tunnel syndrome, left Chronic congestive heart failure with left ventricular diastolic dysfunction Coronary artery disease Diabetes mellitus, type 2 History of left below knee amputation Psychotic disorder Tobacco use disorder Ulnar neuropathy at elbow of left upper extremity Surgical History Status post cholecystectomy Status post coronary artery bypass grafting Status post hysterectomy Status post ORIF of fracture of ankle R, 2017 Family History Other Diabetes Heart disease Social History Smoking Status: Former smoker Tobacco Type: Cigarettes packs per day: 1; Years Smoked: 35; Second Hand Exposure: Yes; Hx Alcohol Use: No Hx Substance Use: No Preferred Language: Citizen Of [place] Communication Ability: Unable [employer] 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 Physical Exam Physical Exam: GENERAL: very drowsy, Oriented x4, unable to cooperate fully, looks very tired and ill appearing, frail. 3L NC O2. HEENT: + pallor, no icterus. Pupils equal, round and reactive to light. Oral mucosa dry. NECK: No JVD, no neck masses. HEART: S1 and S2 heard. Regular rate and rhythm. No murmur, no gallop. RESPIRATORY SYSTEM: Normal AP diameter. No accessory muscle use. No wheezing, no crackles. ABDOMEN: Soft, bowel sounds present, nontender, no distention. CENTRAL NERVOUS SYSTEM: No facial droop. Hallucination noted during bedside exam EXTREMITIES: RLE 1-2 + edema, LLE BKA noted with clean dressing over the stump w/o soakage. Results & Data Results & Data ([facility]) Vital Signs (Past 12 Hours) Vital Signs Temp Pulse Pulse Resp BP BP Pulse Ox 07/11/21 13:49 22 100 07/11/21 13:46 78 20 113/53 L 99 07/11/21 12:37 76 21 127/63 100 07/11/21 11:52 76 20 127/63 99 07/11/21 11:25 22 100 07/11/21 11:07 37.4 C 74 22 127/63 100
[2021-07-11] MEDS ORDERED: PANTOprazole 80 MG in DEXTROSE 5% 100 ML IV ONE (15:00)
[2021-07-11] MEDS ORDERED: bisacodyL 10 MG SUPP PR PRN (17:32)
[2021-07-11] MEDS ORDERED: DOCUSATE SODIUM 100 MG CAP PO PRN (17:32)
[2021-07-11] MEDS: INSULIN ASPART PER UNIT SC SCH ×2 (18:46→23:52)
[2021-07-11] MEDS: ACETAMINOPHEN 500 MG TAB PO SCH ×2 (18:49→21:10)
[2021-07-11] MEDS ORDERED: ONDANSETRON INJ 2 MG/ML 2 ML VIAL ONE (18:55)
[2021-07-11] MEDS: ATORVASTATIN 40 MG TAB PO SCH (21:09)
[2021-07-11] MEDS: METOPROLOL SUCC 50MG EXT REL TAB PO SCH (21:10)
[2021-07-11] MEDS: TOPIRAMATE 50 MG TAB PO SCH (21:10)
[2021-07-11] MEDS: INSULIN GLARGINE SOLOSTAR 100 UNITS/ML 3 ML PEN SC SCH (22:58)
[2021-07-11] MEDS: PANTOprazole 40 MG in SYRINGE 0 ML IV SCH (23:07)
[2021-07-11 23:33] LABS: Appearance Urine Clear (Clear); Bilirubin Urine Negative (Negative); Blood Urine Negative (Negative); Color Urine Yellow; Glucose Urine UA Negative (Negative); Ketones Urine Negative (Negative); Leukocyte Esterase Urine Negative (Negative); Nitrite Urine Negative (Negative); Protein Urine Negative (Negative); Specific Gravity Urine 1.013 (1.000-1.030); Urobilinogen Urine Negative (Negative); pH Urine 7.5 (4.5-7.5)
[2021-07-11 23:52] LABS: Hematocrit (blood only) 25.8 % (37-47); Hemoglobin 8.4 g/dL (12.0-16.0)
[2021-07-12] MEDS: ACETAMINOPHEN 500 MG TAB PO SCH ×6 (04:37→22:54)
[2021-07-12] MEDS: SODIUM CHLORIDE 0.9% 1000ML 1,000 ML IV SCH ×2 (05:58→15:13)
[2021-07-12 06:06] LABS: Hematocrit (blood only) 25.5 % (37-47); Hemoglobin 8.2 g/dL (12.0-16.0); Mean Corpuscular Hemoglobin 29.5 pg (25-34); Mean Corpuscular Hgb Conc 32.2 g/dL (32-36); Mean Corpuscular Volume 91.7 fL (80-100); Platelet Count 219 K/uL (130-400); RDW Coefficient of Variation 15.4 % (11.5-14.5); RDW Standard Deviation 51.7 fL (36.4-46.3); Red Blood Count 2.78 M/uL (4.2-5.4); White Blood Count 9.49 K/uL (4.8-10.8)
--- NOTE | 2021-07-12 06:29 | Electrocardiogram Report ---
Test Reason : Blood Pressure : / mmHG Vent. Rate : 077 BPM Atrial Rate : 077 BPM P-R Int : 160 ms QRS Dur : 156 ms QT Int : 460 ms P-R-T Axes : 050 -17 093 degrees QTc Int : 520 ms Normal sinus rhythm Left bundle branch block Abnormal ECG When compared with ECG of 29-MAY-2021 21:38, QRS axis Shifted left Confirmed by Zuhair Sanford ([id number]) on 07/12/2021 6:29:04 AM Referred By: [facility] Confirmed By:Zuhair Sanford
[2021-07-12 06:38] LABS: Albumin Level 3.2 gm/dl (3.4-5.0); Bilirubin,Total 1.6 mg/dl (0.2-1.0); Creatinine Clr Calc Pharmacy 52.7 ml/min; Est GFR (African American) 69.9 ml/min; Est GFR (Non-African American) 60.3 ml/min; Globulin 3.1 gm/dl (2.5-4.0); Magnesium 2.3 mg/dl (1.7-2.4); Phosphorus 3.7 mg/dl (2.5-4.9); Potassium 4.1 mmol/L (3.5-5.1); Total Protein 6.3 gm/dl (6.0-8.3)
--- NOTE | 2021-07-12 06:54 | Electrocardiogram Report ---
Test Reason : Blood Pressure : / mmHG Vent. Rate : 076 BPM Atrial Rate : 076 BPM P-R Int : 162 ms QRS Dur : 156 ms QT Int : 466 ms P-R-T Axes : 052 -10 090 degrees QTc Int : 524 ms Normal sinus rhythm Left bundle branch block Abnormal ECG When compared with ECG of 11-JUL-2021 11:03, No significant change was found Confirmed by Zuhair Sanford ([id number]) on 07/12/2021 6:54:10 AM Referred By: [facility] Confirmed By:Zuhair Sanford
[2021-07-12] MEDS: INSULIN ASPART PER UNIT SC SCH ×4 (07:15→20:49)
[2021-07-12 08:00] LABS: Estimated Average Glucose 111 mg/dl; Hemoglobin A1C 5.5 % (4.5-5.6)
[2021-07-12] MEDS: CYCLOBENZAPRINE HCL 10 MG TAB PO PRN (09:00)
[2021-07-12] MEDS: TOPIRAMATE 50 MG TAB PO SCH ×2 (09:01→20:39)
[2021-07-12] MEDS: MULTIVITAMIN TAB PO SCH (09:01)
[2021-07-12] MEDS: FOLIC ACID 400 MCG TAB PO SCH (09:01)
[2021-07-12] MEDS: FLUTICASONE PROPIONATE NA SPR 16 GM BTL SCH (09:02)
[2021-07-12] MEDS: MAGNESIUM OXIDE 400 MG TAB PO SCH (09:02)
[2021-07-12] MEDS: METOPROLOL SUCC 50MG EXT REL TAB PO SCH ×2 (09:02→20:39)
--- NOTE | 2021-07-12 10:10 | Gastrointestinal Consultation ---
Date of Consultation July 12, 2021 Assessment & Plan (1) Anemia: Patient with a new anemia, unclear if this represents gastrointestinal bleeding based on the history and available information. The patient did appear to have an appropriate bump in her hemoglobin and hematocrit after transfusion. We will therefore make arrangements for upper endoscopy as the first step in our evaluation this can be done tomorrow. As the patient does not have a known history of liver disease I wonder if her confusion may be related to one of her medications. Recommendations Protonix Drip EGD 07/13 Avoid NSAIDS / anticoagulation please Please call with any questions or concerns History of Present Illness Reason for Consultation: Anemai Requesting Physician: Dr. Mcmanus Attending Physician: Dayanna Mcmanus MD History of Present Illness Patient is somewhat of a poor historian, much of the history is obtained by reviewing the patient's recent medical history and chart. She is a 60-year-old female with a history of endocarditis recently completed intravenous vancomycin who is status post repair of a bimalleolar fracture of her left ankle in March. She has been at [facility] for convalescence and was referred to the hospital due to altered mental status. On a review of the chart it appears that the patient has been weak for several days prior to admission and hallucinating. The patient denies having hematochezia, hematemesis, bright red blood per rectum or dark sticky stool. There is no known history of liver disease or prior history of peptic ulcer disease. The patient denies any prior intra-abdominal surgeries. Allergies Allergy/AdvReac Type Severity Reaction Status Date / Time latex Allergy Mild Rash Verified 07/11/21 13:17 aspirin Allergy Unknown UNKNOWN Verified 07/11/21 13:17 Home Medications Medication Instructions Recorded Confirmed Type atorvastatin 80 mg tablet 80 mg PO HS 03/16/21 07/11/21 History clopidogrel 75 mg tablet 75 mg PO DAILY 03/16/21 07/11/21 History donepezil 5 mg tablet 5 mg PO HS 03/16/21 07/11/21 History duloxetine 30 mg capsule,delayed 30 mg PO QAM 03/16/21 07/11/21 History release duloxetine 60 mg capsule,delayed 60 mg PO QAM 03/16/21 07/11/21 History release furosemide 20 mg tablet 60 mg PO DAILY 03/16/21 07/11/21 History lisinopril 10 mg tablet 10 mg PO DAILY 03/16/21 07/11/21 History metoprolol succinate 50 mg 100 mg PO QAM 03/16/21 07/11/21 History tablet,extended release 24 hr topiramate 50 mg tablet 50 mg PO BID 03/16/21 07/11/21 History acetaminophen 500 mg tablet 500 mg PO Q4 #100 tab 03/29/21 07/11/21 Rx (Tylenol Extra Strength) bisacodyl 10 mg rectal suppository 10 mg PA DAILY PRN #50 ea 03/29/21 07/11/21 Rx docusate sodium 100 mg capsule 100 mg PO BID PRN #60 cap 03/29/21 07/11/21 Rx magnesium hydroxide 400 mg/5 mL 30 ml PO Q6H PRN #300 ml 03/29/21 07/11/21 Rx oral suspension (Milk of Magnesia) magnesium oxide 400 mg (241.3 mg 400 mg PO QAM #30 tab 03/29/21 07/11/21 Rx magnesium) tablet multivitamin with folic acid 400 1 tab PO QAM #30 tab 03/29/21 07/11/21 Rx mcg tablet (Daily-Hardik (with folic acid)) aspirin 81 mg tablet,delayed 81 mg PO DAILY 05/14/21 07/11/21 History release gabapentin 300 mg capsule 300 mg PO QAM 05/14/21 07/11/21 History gabapentin 300 mg capsule 600 mg PO HS 05/14/21 07/11/21 History insulin aspart U-100 100 unit/mL 0 unit SUBCUT TID 05/14/21 07/11/21 History (3 mL) subcutaneous pen (Novolog Flexpen U-100 Insulin aspart) insulin glargine 100 unit/mL (3 46 unit SUBCUT QAM 05/14/21 07/11/21 History mL) subcutaneous pen (Basaglar KwikPen U-100 Insulin) metoprolol succinate 50 mg 50 mg PO QPM 05/14/21 07/11/21 History tablet,extended release 24 hr nitroglycerin 0.4 mg sublingual 0.4 mg SUBLINGUAL .PRN/UD PRN 05/14/21 07/11/21 History tablet omeprazole 20 mg capsule,delayed 20 mg PO DAILY 05/14/21 07/11/21 History release polyethylene glycol 3350 17 gram 17 g PO DAILY 05/14/21 07/11/21 History oral powder packet (Miralax) sennosides 8.6 mg tablet (Senokot) 17.2 mg PO HS PRN 05/14/21 07/11/21 History tramadol 50 mg tablet 50 mg PO Q6H PRN 05/14/21 07/11/21 History bumetanide 2 mg tablet 2 mg PO BID 07/01/21 07/11/21 History cyclobenzaprine 10 mg tablet 10 mg PO TID PRN 07/01/21 07/11/21 History fluticasone propionate 50 2 spray INTRANASAL DAILY 07/01/21 07/11/21 History mcg/actuation nasal spray,suspension folic acid 400 mcg tablet 0.4 mg PO DAILY 07/01/21 07/11/21 History pantoprazole 40 mg tablet,delayed 40 mg PO DAILY 07/01/21 07/11/21 History release (Protonix) vancomycin 750 mg intravenous 750 mg IV Q12 07/01/21 07/11/21 History solution Patient History Medical History Anxiety Bone infection of left ankle Carpal tunnel syndrome, left Chronic congestive heart failure with left ventricular diastolic dysfunction Coronary artery disease Diabetes mellitus, type 2 History of left below knee amputation Psychotic disorder Tobacco use disorder Ulnar neuropathy at elbow of left upper extremity Surgical History Status post cholecystectomy Status post coronary artery bypass grafting Status post hysterectomy Status post ORIF of fracture of ankle R, 2017 Family History Other Diabetes Heart disease Social History Smoking Status: Former smoker Tobacco Type: Cigarettes packs per day: 1; Years Smoked: 35; Second Hand Exposure: Yes; Hx Alcohol Use: No Hx Substance Use: No Preferred Language: Bolivian Communication Ability: Unable Chemical Supervisor Required: No Beliefs That Will Affect Care: Holiness marital status: Current Living Situation: Long Term Other Information That Helps Us Care for You: No Feels Safe at Home: Yes Safety Concerns: Feels Safe At This Time Assistive Devices: Wheelchair Review of Systems Constitutional: no fever and no sweats Eyes: no diplopia Ear, Nose, Mouth, Throat: no ear trauma, no foul smell and no facial pain Respiratory: no cough, no change in sputum, no dyspnea and no hemoptysis Cardiovascular: no chest pain with activity Gastrointestinal: no abdominal pain, no bloating, no nausea, no vomiting and no hematemesis Genitourinary: no urinary frequency Musculoskeletal: + back pain and + radicular pain Integumentary: no rash Neurologic: + behavioral changes Psychiatric: + behavioral changes; no hopelessness Endocrine: no polydipsia Hematologic / Lymphatic: no easy bleeding and no coagulopathy Allergy / Immunological: no lip swelling Physical Exam Constitutional: well nourished; no acute distress Eyes: PERRL, conjunctivae normal, anicteric sclerae ENMT: Mallampati Class: II Neck: trachea midline, no thyromegaly Respiratory: Auscultation: no crackles, no rales and no wheezes Cardiovascular: Heart Sounds: + murmur Neurologic: no asterixis Results & Data ([facility]) Vital Signs (Past 12 Hours) Vital Signs Temp Pulse Pulse Resp BP BP Pulse Ox 07/12/21 03:35 36.9 C 78 16 128/73 94 07/11/21 22:42 36.7 C 81 16 115/72 98 Laboratory Results Laboratory Results - last 24 hr 07/11/21 07/11/21 07/11/21 11:09 11:09 11:09 WBC 13.36 H RBC 2.11 L Hgb 5.9 L* Hct 19.7 L* MCV 93.4 MCH 28.0 MCHC 29.9 L RDW Std Deviation 56.4 H RDW Coeff of Fabio 16.4 H Plt Count 291 MPV 10.2 Neutrophils % (Manual) 71.0 Lymphocytes % (Manual) 17.0 Monocytes % (Manual) 10.0 Eosinophils % (Manual) 1.0 Basophils % (Manual) 1.0 Neutrophils # (Manual) 9.49 H Total Absolute Neuts 9.49 H Lymphocytes # (Manual) 2.27 Total Abs Lymphocytes 2.27 Monocytes # (Manual) 1.34 H Eosinophils # (Manual) 0.13 Basophils # (Manual) 0.13 Hypochromasia Present PT INR Sodium Potassium Chloride Carbon Dioxide Anion Gap BUN Creatinine Est Cr Clr Drug Dosing Est GFR ( Amer) Est GFR (Non-Af Amer) BUN/Creatinine Ratio Glucose POC Glucose Estimat Average Glucose Hemoglobin A1c Lactate Calcium Phosphorus Magnesium Total Bilirubin AST ALT Alkaline Phosphatase Troponin I High Sens 65.7 H* Total Protein Albumin Globulin Albumin/Globulin Ratio Procalcitonin Urine Color Urine Appearance Urine pH Ur Specific [place] Urine Protein Urine Glucose (UA) Urine Ketones Urine Blood Urine Nitrite Urine Bilirubin Urine Urobilinogen Ur Leukocyte Esterase SARS-CoV-2, RNA, NAAT Blood Type A Positive Antibody Screen NEGATIVE Crossmatch See Detail 07/11/21 07/11/21 07/11/21 11:09 11:09 11:09 WBC RBC Hgb Hct MCV MCH MCHC RDW Std Deviation RDW Coeff of Fabio Plt Count MPV Neutrophils % (Manual) Lymphocytes % (Manual) Monocytes % (Manual) Eosinophils % (Manual) Basophils % (Manual) Neutrophils # (Manual) Total Absolute Neuts Lymphocytes # (Manual) Total Abs Lymphocytes Monocytes # (Manual) Eosinophils # (Manual) Basophils # (Manual) Hypochromasia PT 10.4 INR 1.0 Sodium 133 L Potassium 4.3 Chloride 87 L Carbon Dioxide 38 H Anion Gap 8 BUN 73 H Creatinine 1.38 H Est Cr Clr Drug Dosing 39.1 Est GFR ( Amer) 47.4 Est GFR (Non-Af Amer) 40.9 BUN/Creatinine Ratio 52.9 H Glucose 279 H POC Glucose Estimat Average Glucose Hemoglobin A1c Lactate Calcium 9.3 Phosphorus Magnesium 2.4 Total Bilirubin 0.5 AST 23 ALT 16 Alkaline Phosphatase 66 Troponin I High Sens Total Protein 7.2 Albumin 3.7 Globulin 3.5 Albumin/Globulin Ratio 1.1 Procalcitonin < 0.05 Urine Color Urine Appearance Urine pH Ur Specific [place] Urine Protein Urine Glucose (UA) Urine Ketones Urine Blood Urine Nitrite Urine Bilirubin Urine Urobilinogen Ur Leukocyte Esterase SARS-CoV-2, RNA, NAAT Blood Type Antibody Screen Crossmatch 07/11/21 07/11/21 07/11/21 11:14 11:35 15:25 WBC RBC Hgb Hct MCV MCH MCHC RDW Std Deviation RDW Coeff of Fabio Plt Count MPV Neutrophils % (Manual) Lymphocytes % (Manual) Monocytes % (Manual) Eosinophils % (Manual) Basophils % (Manual) Neutrophils # (Manual) Total Absolute Neuts Lymphocytes # (Manual) Total Abs Lymphocytes Monocytes # (Manual) Eosinophils # (Manual) Basophils # (Manual) Hypochromasia PT INR Sodium Potassium Chloride Carbon Dioxide Anion Gap BUN Creatinine Est Cr Clr Drug Dosing Est GFR ( Amer) Est GFR (Non-Af Amer) BUN/Creatinine Ratio Glucose POC Glucose 292 H Estimat Average Glucose Hemoglobin A1c Lactate 2.0 Calcium Phosphorus Magnesium Total Bilirubin AST ALT Alkaline Phosphatase Troponin I High Sens Total Protein Albumin Globulin Albumin/Globulin Ratio Procalcitonin Urine Color Urine Appearance Urine pH Ur Specific [place] Urine Protein Urine Glucose (UA) Urine Ketones Urine Blood Urine Nitrite Urine Bilirubin Urine Urobilinogen Ur Leukocyte Esterase SARS-CoV-2, RNA, NAAT NEGATIVE Blood Type Antibody Screen Crossmatch 07/11/21 07/11/21 07/11/21 16:39 17:56 18:25 WBC RBC Hgb Hct MCV MCH MCHC RDW Std Deviation RDW Coeff of Fabio Plt Count MPV Neutrophils % (Manual) Lymphocytes % (Manual) Monocytes % (Manual) Eosinophils % (Manual) Basophils % (Manual) Neutrophils # (Manual) Total Absolute Neuts Lymphocytes # (Manual) Total Abs Lymphocytes Monocytes # (Manual) Eosinophils # (Manual) Basophils # (Manual) Hypochromasia PT INR Sodium Potassium Chloride Carbon Dioxide Anion Gap BUN Creatinine Est Cr Clr Drug Dosing Est GFR ( Amer) Est GFR (Non-Af Amer) BUN/Creatinine Ratio Glucose POC Glucose 223 H 197 H Estimat Average Glucose Hemoglobin A1c Lactate Calcium Phosphorus Magnesium Total Bilirubin AST ALT Alkaline Phosphatase Troponin I High Sens 77.4 H* D Total Protein Albumin Globulin Albumin/Globulin Ratio Procalcitonin Urine Color Urine Appearance Urine pH Ur Specific [place] Urine Protein Urine Glucose (UA) Urine Ketones Urine Blood Urine Nitrite Urine Bilirubin Urine Urobilinogen Ur Leukocyte Esterase SARS-CoV-2, RNA, NAAT Blood Type Antibody Screen Crossmatch 07/11/21 07/11/21 07/11/21 20:53 22:57 23:43 WBC RBC Hgb Hct MCV MCH MCHC RDW Std Deviation RDW Coeff of Fabio Plt Count MPV Neutrophils % (Manual) Lymphocytes % (Manual) Monocytes % (Manual) Eosinophils % (Manual) Basophils % (Manual) Neutrophils # (Manual) Total Absolute Neuts Lymphocytes # (Manual) Total Abs Lymphocytes Monocytes # (Manual) Eosinophils # (Manual) Basophils # (Manual) Hypochromasia PT INR Sodium Potassium Chloride Carbon Dioxide Anion Gap BUN Creatinine Est Cr Clr Drug Dosing Est GFR ( Amer) Est GFR (Non-Af Amer) BUN/Creatinine Ratio Glucose POC Glucose 168 H Estimat Average Glucose Hemoglobin A1c Lactate Calcium Phosphorus Magnesium Total Bilirubin AST ALT Alkaline Phosphatase Troponin I High Sens 52.0 H* D Total Protein Albumin Globulin Albumin/Globulin Ratio Procalcitonin Urine Color Yellow Urine Appearance Clear Urine pH 7.5 Ur Specific [place] 1.013 Urine Protein Negative Urine Glucose (UA) Negative Urine Ketones Negative Urine Blood Negative Urine Nitrite Negative Urine Bilirubin Negative Urine Urobilinogen Negative Ur Leukocyte Esterase Negative SARS-CoV-2, RNA, NAAT Blood Type Antibody Screen Crossmatch 07/11/21 07/11/21 07/12/21 23:46 23:48 05:12 WBC RBC Hgb 8.4 L Hct 25.8 L MCV MCH MCHC RDW Std Deviation RDW Coeff of Fabio Plt Count MPV Neutrophils % (Manual) Lymphocytes % (Manual) Monocytes % (Manual) Eosinophils % (Manual) Basophils % (Manual) Neutrophils # (Manual) Total Absolute Neuts Lymphocytes # (Manual) Total Abs Lymphocytes Monocytes # (Manual) Eosinophils # (Manual) Basophils # (Manual) Hypochromasia PT INR Sodium Potassium Chloride Carbon Dioxide Anion Gap BUN Creatinine Est Cr Clr Drug Dosing Est GFR ( Amer) Est GFR (Non-Af Amer) BUN/Creatinine Ratio Glucose POC Glucose 88 Estimat Average Glucose 111 Hemoglobin A1c 5.5 Lactate Calcium Phosphorus Magnesium Total Bilirubin AST ALT Alkaline Phosphatase Troponin I High Sens Total Protein Albumin Globulin Albumin/Globulin Ratio Procalcitonin Urine Color Urine Appearance Urine pH Ur Specific [place] Urine Protein Urine Glucose (UA) Urine Ketones Urine Blood Urine Nitrite Urine Bilirubin Urine Urobilinogen Ur Leukocyte Esterase SARS-CoV-2, RNA, NAAT Blood Type Antibody Screen Crossmatch 07/12/21 07/12/21 07/12/21 05:12 05:12 05:12 WBC 9.49 RBC 2.78 L Hgb 8.2 L Hct 25.5 L MCV 91.7 MCH 29.5 MCHC 32.2 RDW Std Deviation 51.7 H RDW Coeff of Fabio 15.4 H Plt Count 219 MPV 10.0 Neutrophils % (Manual) Lymphocytes % (Manual) Monocytes % (Manual) Eosinophils % (Manual) Basophils % (Manual) Neutrophils # (Manual) Total Absolute Neuts Lymphocytes # (Manual) Total Abs Lymphocytes Monocytes # (Manual) Eosinophils # (Manual) Basophils # (Manual) Hypochromasia PT INR Sodium 138 Potassium 4.1 Chloride 98 Carbon Dioxide 36 H Anion Gap 4 BUN 53 H D Creatinine 1.00 D Est Cr Clr Drug Dosing 52.7 Est GFR ( Amer) 69.9 Est GFR (Non-Af Amer) 60.3 BUN/Creatinine Ratio 53.0 H Glucose 123 H POC Glucose Estimat Average Glucose Hemoglobin A1c Lactate Calcium 9.0 Phosphorus 3.7 Magnesium 2.3 Total Bilirubin 1.6 H D AST 22 ALT 12 Alkaline Phosphatase 62 Troponin I High Sens Total Protein 6.3 Albumin 3.2 L Globulin 3.1 Albumin/Globulin Ratio 1.0 Procalcitonin < 0.05 Urine Color Urine Appearance Urine pH Ur Specific [place] Urine Protein Urine Glucose (UA) Urine Ketones Urine Blood Urine Nitrite Urine Bilirubin Urine Urobilinogen Ur Leukocyte Esterase SARS-CoV-2, RNA, NAAT Blood Type Antibody Screen Crossmatch 07/12/21 05:16 WBC RBC Hgb Hct MCV MCH MCHC RDW Std Deviation RDW Coeff of Fabio Plt Count MPV Neutrophils % (Manual) Lymphocytes % (Manual) Monocytes % (Manual) Eosinophils % (Manual) Basophils % (Manual) Neutrophils # (Manual) Total Absolute Neuts Lymphocytes # (Manual) Total Abs Lymphocytes Monocytes # (Manual) Eosinophils # (Manual) Basophils # (Manual) Hypochromasia PT INR Sodium Potassium Chloride Carbon Dioxide Anion Gap BUN Creatinine Est Cr Clr Drug Dosing Est GFR ( Amer) Est GFR (Non-Af Amer) BUN/Creatinine Ratio Glucose POC Glucose 144 H Estimat Average Glucose Hemoglobin A1c Lactate Calcium Phosphorus Magnesium Total Bilirubin AST ALT Alkaline Phosphatase Troponin I High Sens Total Protein Albumin Globulin Albumin/Globulin Ratio Procalcitonin Urine Color Urine Appearance Urine pH Ur Specific [place] Urine Protein Urine Glucose (UA) Urine Ketones Urine Blood Urine Nitrite Urine Bilirubin Urine Urobilinogen Ur Leukocyte Esterase SARS-CoV-2, RNA, NAAT Blood Type Antibody Screen Crossmatch
[2021-07-12] MEDS: INSULIN GLARGINE SOLOSTAR 100 UNITS/ML 3 ML PEN SC SCH ×2 (10:49→20:48)
[2021-07-12] MEDS: PANTOprazole 40 MG in SYRINGE 0 ML IV SCH (11:19)
--- NOTE | 2021-07-12 16:24 | Hospitalist Progress Note ---
Date of Service July 12, 2021 Assessment & Plan (1) Anemia: Plan: #. Likely acute metabolic encephalopathy #. Acute on chronic anemia #. Likely UGI bleed #. Weakness Patient presents with worsening confusion since last 2 to 3 days [employer]. Pt from [facility] [[phone]]. Patient noted to have hallucination on the day of arrival and also in the ED at bedside exam. Baseline hemoglobin around 7.5-8 lately. Admitting hemoglobin of 5.9 with elevated BUN, concern of blood in stool/dark stool per patient. FOBT pending, transfuse to maintain hemoglobin around 7.5, s/p 2 U PRBC so far. d/w GI: PPI drip, upper scope saul. Monitor H&H every 8 hours and as needed. Clears, NPO midnight. Hold all antiplatelets and NSAIDs for now. Encephalopathy likely secondary to uremia from likely GI bleed vs polypharmacy, hold all neuropsychotropic medications as able. Patient on tramadol and Tylenol [id number] for her LLE BKA stump pain management. We will continue with Tylenol for now. Can use lidocaine patch if needed. PT OT when able. #. Elevated troponin Admitting troponin was 65.7 with admitting EKG without acute ST or T changes. Patient with no chest pain, flat trend of troponin Continue to monitor. #. Leukocytosis - Resolved Could be from dehydration, procalcitonin at admission and following day, patient afebrile. Admitting CXR with no acute finding. Monitor off antibiotic. Await Blood culture #. Mild hyponatremia - resolved Admitting sodium of 133, compatible with her recent sodium level. Monitor BMP daily, expect to improve with improvement in her overall condition/diet. #. GUY - resolved BUN elevated to 73 out of proportion to creatinine elevation, likely secondary to upper GI bleed. Likely prerenal from dehydration. Admitting creatinine of 1.38, which resolved following day. Holding nephrotoxics BUN remains elevated though trending down. #. Other chronic medical conditions: Mitral valve infective endocarditis, CAD status post CABG, DM with PDN, GERD Aspirin and Plavix on hold due to GI bleed concern. Tramadol and other neuro psychotropic medications on hold due to acute metabolic encephalopathy. Can use lidocaine patch for pain management, continue with Tylenol. On Sliding scale insulin. Continue other home meds as and when appropriate. #. DVT prophylaxis: SCDs, concerns for GI bleeding. #. Full code 07/11 and 07/12: Pt's dtr updated over the phone, answered all her questions. Admission and Anticipated Discharge Date Admission Date: July 11, 2021 Subjective Patient seen and examined at bedside as a follow-up of likely acute metabolic encephalopathy, acute on chronic anemia secondary to likely upper GI bleed and demand ischemia. Patient was lying in bed, on 3 L nasal cannula oxygen, NAD but was drowsy, better than yesterday but not oriented today. ROS n/a due to cognition status but denied any discomfort or pain. Per RN, patient ate clear diet well. Will discontinue IV fluid. N.p.o. midnight for scope tomorrow. Physical Exam Physical Exam: GENERAL: Drowsy, Oriented x 0, unable to cooperate fully, looks very tired and ill appearing, frail. 3L NC O2. HEENT: + pallor, no icterus. Pupils equal, round and reactive to light. Oral mucosa dry. NECK: No JVD, no neck masses. HEART: S1 and S2 heard. Regular rate and rhythm. No murmur, no gallop. RESPIRATORY SYSTEM: Normal AP diameter. No accessory muscle use. No wheezing, no crackles. ABDOMEN: Soft, bowel sounds present, nontender, no distention. CENTRAL NERVOUS SYSTEM: No facial droop. Hallucination noted during bedside exam EXTREMITIES: RLE 1 + edema, LLE BKA noted with clean dressing over the stump w/o soakage. Results & Data Results & Data ([facility]) Vital Signs (Past 12 Hours) Vital Signs Temp Pulse Pulse Resp BP Pulse Ox 07/12/21 12:13 36.6 C 73 16 136/78 98 07/12/21 12:00 36.8 C 71 16 98 07/12/21 08:00 79
[2021-07-12] MEDS: PANTOprazole 40 MG in DEXTROSE 5% 100 ML IV SCH ×2 (18:32→22:54)
[2021-07-12 19:26] LABS: Hematocrit (blood only) 26.4 % (37-47); Hemoglobin 8.3 g/dL (12.0-16.0)
[2021-07-12] MEDS: ATORVASTATIN 40 MG TAB PO SCH (20:39)
[2021-07-13] MEDS: CYCLOBENZAPRINE HCL 10 MG TAB PO PRN (00:29)
[2021-07-13 02:49] LABS: Hematocrit (blood only) 24.8 % (37-47); Hemoglobin 7.9 g/dL (12.0-16.0); Mean Corpuscular Hemoglobin 29.4 pg (25-34); Mean Corpuscular Hgb Conc 31.9 g/dL (32-36); Mean Corpuscular Volume 92.2 fL (80-100); Mean Platelet Volume 9.9 fL (7.4-10.4); Platelet Count 228 K/uL (130-400); RDW Coefficient of Variation 15.1 % (11.5-14.5); RDW Standard Deviation 51.2 fL (36.4-46.3); Red Blood Count 2.69 M/uL (4.2-5.4); White Blood Count 8.73 K/uL (4.8-10.8)
[2021-07-13 03:18] LABS: Albumin Level 3.2 gm/dl (3.4-5.0); BUN Creatinine Ratio 36.7 (10-20); Calcium 8.9 mg/dl (8.5-10.1); Creatinine Clr Calc Pharmacy 58.5 ml/min; Est GFR (African American) 79.4 ml/min; Est GFR (Non-African American) 68.5 ml/min; Globulin 3.2 gm/dl (2.5-4.0); Potassium 3.7 mmol/L (3.5-5.1); Total Protein 6.4 gm/dl (6.0-8.3)
[2021-07-13] MEDS: PANTOprazole 40 MG in DEXTROSE 5% 100 ML IV SCH ×4 (04:30→15:50)
[2021-07-13] MEDS: ACETAMINOPHEN 500 MG TAB PO SCH ×5 (05:45→17:53)
[2021-07-13] MEDS: SODIUM CHLORIDE 0.9% 1000ML 1,000 ML IV SCH (05:49)
[2021-07-13] MEDS: INSULIN ASPART PER UNIT SC SCH ×4 (05:53→20:50)
--- NOTE | 2021-07-13 07:57 | Anesthesiology Consultation ---
Date of Service July 13, 2021 Assessment & Plan (1) Encounter for pre-operative examination: Chart Review Chart Review: Acceptable Risk for Surgery, Patient NOT seen in Pre Admission Testing and data entry supervisor initiated Consults Requested none ASA ASA3 Proposed Anesthesia Anesthesia Type: MAC Risk / Benefits Reviewed With: PT / POA / Parent / Guardian, Accepts Plan and Informed Consent Obtained History Surgery Operation Date: 07/13/21 16:45 Proposed Procedures p Esophagogastroduodenoscopy Dr Marin - Wilian Marin MD Height/Weight Height: 5 ft 2 in Weight: 67.9 kg Allergies Allergy/AdvReac Type Severity Reaction Status Date / Time latex Allergy Mild Rash Verified 07/11/21 13:17 aspirin Allergy Unknown UNKNOWN Verified 07/11/21 13:17 Medications Home Medications Medication Instructions Recorded Confirmed Last Taken atorvastatin 80 mg tablet 80 mg PO HS 03/16/21 07/11/21 Unknown clopidogrel 75 mg tablet 75 mg PO DAILY 03/16/21 07/11/21 Unknown donepezil 5 mg tablet 5 mg PO HS 03/16/21 07/11/21 Unknown duloxetine 30 mg capsule,delayed 30 mg PO QAM 03/16/21 07/11/21 Unknown release duloxetine 60 mg capsule,delayed 60 mg PO QAM 03/16/21 07/11/21 Unknown release furosemide 20 mg tablet 60 mg PO DAILY 03/16/21 07/11/21 Unknown lisinopril 10 mg tablet 10 mg PO DAILY 03/16/21 07/11/21 Unknown metoprolol succinate 50 mg 100 mg PO QAM 03/16/21 07/11/21 Unknown tablet,extended release 24 hr topiramate 50 mg tablet 50 mg PO BID 03/16/21 07/11/21 Unknown acetaminophen 500 mg tablet 500 mg PO Q4 #100 tab 03/29/21 07/11/21 Unknown (Tylenol Extra Strength) bisacodyl 10 mg rectal suppository 10 mg LA DAILY PRN #50 ea 03/29/21 07/11/21 Unknown docusate sodium 100 mg capsule 100 mg PO BID PRN #60 cap 03/29/21 07/11/21 Unknown magnesium hydroxide 400 mg/5 mL 30 ml PO Q6H PRN #300 ml 03/29/21 07/11/21 Unknown oral suspension (Milk of Magnesia) magnesium oxide 400 mg (241.3 mg 400 mg PO QAM #30 tab 03/29/21 07/11/21 Unknown magnesium) tablet multivitamin with folic acid 400 1 tab PO QAM #30 tab 03/29/21 07/11/21 Unknown mcg tablet (Daily-Hardik (with folic acid)) aspirin 81 mg tablet,delayed 81 mg PO DAILY 05/14/21 07/11/21 Unknown release gabapentin 300 mg capsule 300 mg PO QAM 05/14/21 07/11/21 Unknown gabapentin 300 mg capsule 600 mg PO HS 05/14/21 07/11/21 Unknown insulin aspart U-100 100 unit/mL 0 unit SUBCUT TID 05/14/21 07/11/21 Unknown (3 mL) subcutaneous pen (Novolog Flexpen U-100 Insulin aspart) insulin glargine 100 unit/mL (3 46 unit SUBCUT QAM 05/14/21 07/11/21 Unknown mL) subcutaneous pen (Basaglar KwikPen U-100 Insulin) metoprolol succinate 50 mg 50 mg PO QPM 05/14/21 07/11/21 Unknown tablet,extended release 24 hr nitroglycerin 0.4 mg sublingual 0.4 mg SUBLINGUAL .PRN/UD PRN 05/14/21 07/11/21 Unknown tablet omeprazole 20 mg capsule,delayed 20 mg PO DAILY 05/14/21 07/11/21 Unknown release polyethylene glycol 3350 17 gram 17 g PO DAILY 05/14/21 07/11/21 Unknown oral powder packet (Miralax) sennosides 8.6 mg tablet (Senokot) 17.2 mg PO HS PRN 05/14/21 07/11/21 Unknown tramadol 50 mg tablet 50 mg PO Q6H PRN 05/14/21 07/11/21 Unknown bumetanide 2 mg tablet 2 mg PO BID 07/01/21 07/11/21 Unknown cyclobenzaprine 10 mg tablet 10 mg PO TID PRN 07/01/21 07/11/21 Unknown fluticasone propionate 50 2 spray INTRANASAL DAILY 07/01/21 07/11/21 Unknown mcg/actuation nasal spray,suspension folic acid 400 mcg tablet 0.4 mg PO DAILY 07/01/21 07/11/21 Unknown pantoprazole 40 mg tablet,delayed 40 mg PO DAILY 07/01/21 07/11/21 Unknown release (Protonix) vancomycin 750 mg intravenous 750 mg IV Q12 07/01/21 07/11/21 Unknown solution Active Medications Generic Name Dose Route Start Last Admin Trade Name Marcellq PRN Reason Stop Dose Admin Acetaminophen 650 mg 07/11/21 14:18 07/12/21 09:00 Acetaminophen 325 Mg Tab PO 08/10/21 14:17 650 mg Q4H PRN Administration Pain or Fever Acetaminophen 500 mg 07/11/21 18:00 07/13/21 05:49 Acetaminophen 500 Mg Tab PO 08/10/21 17:31 500 mg Q4H SAMANTHA Administration Atorvastatin Calcium 80 mg 07/11/21 21:00 07/12/21 20:39 Atorvastatin 40 Mg Tab PO 08/10/21 20:59 80 mg HS SAMANTHA Administration Cyclobenzaprine HCl 10 mg 07/11/21 17:32 07/13/21 00:29 Cyclobenzaprine Hcl 10 Mg Tab PO 08/10/21 17:31 10 mg TID PRN Administration back spasms Fluticasone Propionate 2 sprays 07/12/21 09:00 07/12/21 09:02 Fluticasone Propionate Na Spr 16 Gm Btl NA 08/11/21 08:59 2 sprays DAILY SAMANTHA Administration Folic Acid 400 mcg 07/12/21 09:00 07/12/21 09:01 Folic Acid 400 Mcg Tab PO 08/11/21 08:59 400 mcg DAILY SAMANTHA Administration Sodium Chloride 1,000 mls @ 75 mls/hr 07/11/21 11:30 07/13/21 05:49 Nss 1000ml IV 08/10/21 11:29 125 mls/hr .[id number] SAMANTHA Administration Pantoprazole Sodium 40 mg/ 100 mls @ 20 mls/hr 07/12/21 11:15 07/13/21 04:30 Dextrose IV 08/11/21 11:14 8 mg/hr Q5H SAMANTHA 20 mls/hr Administration 8 MG/HR Insulin Aspart 0 units 07/11/21 18:00 07/13/21 05:53 Insulin Aspart Per Unit SC 08/10/21 17:59 Not Given Q6 SAMANTHA Insulin Glargine 4 units 07/11/21 21:00 07/12/21 20:48 Insulin Glargine Solostar 100 Units/Ml 3 Ml Pen SC 08/10/21 20:59 4 units BID SAMANTHA Administration Magnesium Oxide 400 mg 07/12/21 09:00 07/12/21 09:02 Magnesium Oxide 400 Mg Tab PO 08/11/21 08:59 400 mg QAM SAMANTHA Administration Metoprolol Succinate 100 mg 07/12/21 09:00 07/12/21 09:02 Metoprolol Succ 50mg Ext Rel Tab PO 08/11/21 08:59 100 mg QAM SAMANTHA Administration Metoprolol Succinate 50 mg 07/11/21 21:00 07/12/21 20:39 Metoprolol Succ 50mg Ext Rel Tab PO 08/10/21 20:59 50 mg QPM SAMANTHA Administration Multivitamins 1 tab 07/12/21 09:00 07/12/21 09:01 Multivitamin Tab PO 08/11/21 08:59 1 tab QAM SAMANTHA Administration Topiramate 50 mg 07/11/21 21:00 07/12/21 20:39 Topiramate 50 Mg Tab PO 08/10/21 20:59 50 mg BID SAMANTHA Administration Past Medical History Medical History Anxiety Bone infection of left ankle Carpal tunnel syndrome, left Chronic congestive heart failure with left ventricular diastolic dysfunction Coronary artery disease Diabetes mellitus, type 2 Encounter for pre-operative examination History of left below knee amputation Psychotic disorder Tobacco use disorder Ulnar neuropathy at elbow of left upper extremity Past Family History Family History Other Diabetes Heart disease Past Surgical History Surgical History Status post cholecystectomy Status post coronary artery bypass grafting Status post hysterectomy Status post ORIF of fracture of ankle R, 2017 Social History Smoking Status: Former smoker tobacco type: cigarettes Hx Alcohol Use: No Hx Substance Use: No substance use type: does not use Physical Exam Vital Signs Last Vital Signs Temp 36.7 C 07/13/21 07:24 Pulse 72 07/13/21 07:24 Resp 18 07/13/21 07:24 BP 115/57 L 07/13/21 07:24 Pulse Ox 96 07/13/21 07:24 Testing Laboratory Results 07/13/21 02:39 07/13/21 02:39 PT 10.4 Seconds (9.0-12.0) 07/11/21 11:09 INR 1.0 (0.9-1.1) 07/11/21 11:09 Hemoglobin A1c 5.5 % (4.5-5.6) 07/12/21 05:12 Urine Color Yellow 07/11/21 22:57 Urine Appearance Clear (Clear) 07/11/21 22:57 Urine pH 7.5 (4.5-7.5) 07/11/21 22:57 Ur Specific [place] 1.013 (1.000-1.030) 07/11/21 22:57 Urine Protein Negative (Negative) 07/11/21 22:57 Urine Glucose (UA) Negative (Negative) 07/11/21 22: Urine Ketones Negative (Negative) 07/11/21 22:57 Urine Nitrite Negative (Negative) 07/11/21 22:57 Ur Leukocyte Esterase Negative (Negative) 07/11/21 22:57 Blood Type A Positive 07/11/21 11:09 Antibody Screen NEGATIVE 07/11/21 11:09 07/11/21 12:57 Aerobic Blood Culture - Preliminary Blood No growth in Aerobic bottle after 24 hours. Anaerobic Blood Culture - Preliminary No growth in Anaerobic bottle after 24 hours. 07/11/21 11:35 Aerobic Blood Culture - Preliminary Blood No growth in Aerobic bottle after 24 hours. Anaerobic Blood Culture - Preliminary No growth in Anaerobic bottle after 24 hours. 07/13/21 07/13/21 07/12/21 07:18 05:52 20:39 POC Glucose 157 H 138 H 246 H Electrocardiogram Date: 07/12/21 Normal sinus rhythm Left bundle branch block Abnormal ECG When compared with ECG of 11-JUL-2021 11:03, No significant change was found Confirmed by Zuhair Sanford ([id number]) on 07/12/2021 6:54:10 AM Chest X-Ray Date: 07/11/21 Findings: + cardiomegaly CLINICAL HISTORY: Sepsis. FINDINGS: An AP, portable, upright chest radiograph is compared to study dated 05/29/2021 correlation is made with chest CT dated 03/16/2021. The patient is status post midline sternotomy. The heart is enlarged noting atherosclerotic calcification of the thoracic aorta. The pulmonary vasculature is noncongested. Atelectasis is noted at the lung bases. The lungs and pleural spaces are otherwise clear. No pneumothorax is seen. The skeletal structures are osteopenic. The bony thorax is grossly intact. IMPRESSION: Cardiomegaly with no acute cardiopulmonary abnormality. Echocardiogram Date: 05/19/21 Valvular Disease: + MR (moderate) mitral valve endocarditis
--- NOTE | 2021-07-13 09:10 | Gastroenterology Progress Note ---
Date of Service July 13, 2021 Assessment & Plan (1) Anemia: Plan: Plan for EGD today Admission and Anticipated Discharge Date Admission Date: July 11, 2021 Subjective No signs of bleeding since adm, hallucinations have improved. Physical Exam Constitutional: WD/WN, vitals as above Cardiovascular: RRR, no murmur, no edema Gastrointestinal (Abdomen): normal bowel sounds, soft, nontender, no hepatosplenomegaly Results & Data ([facility]) Vital Signs (Past 12 Hours) Vital Signs Temp Pulse Pulse Resp BP Pulse Ox 07/13/21 08:54 36.9 C 76 18 147/83 H 100 07/13/21 07:24 36.7 C 72 18 115/57 L 96 07/13/21 03:10 36.6 C 67 18 100/59 L 94 07/13/21 00:00 79 07/12/21 23:16 36.8 C 67 18 114/68 94 (1) Anemia Anemia type: unspecified type Qualified Code(s): D64.9 - Anemia, unspecified
--- NOTE | 2021-07-13 09:21 | GI REPORT ---
Patient Name: Rizwana Welch Procedure Date: 07/13/2021 9:02 AM Date of : 1960 Admit Type: Inpatient Age: 60 Gender: Female Attending MD: Wilian Marin MD Procedure: Upper GI endoscopy Providers: Wilian Marin MD Referring MD: Praveen Washington Indications: Anemia Medicines: Monitored Anesthesia Care Complications: No immediate complications. Estimated blood loss: None. Estimated Blood Loss: Estimated blood loss: none. Procedure: Pre-Anesthesia Assessment: - Pre-Anesthesia Assessment: - Prior to the procedure, a History and Physical was performed, and patient medications, allergies and sensitivities were reviewed. The patient's tolerance of previous anesthesia was reviewed. Please see [employer] for complete details. - The risks and benefits of the procedure and the sedation options and risks were discussed with the patient. All questions were answered and informed consent was obtained. - Patient identification and proposed procedure were verified prior to the procedure by the physician and the nurse. The procedure was verified in the pre-procedure area in the procedure room. After obtaining informed consent, the endoscope was passed carefully and meticuously under direct vision and only advanced when the lumen was clearly identified, C02 insuflation was utilized throughout the entirity of the procedure. Throughout the procedure, the patient's blood pressure, pulse, and oxygen saturations were monitored continuously. After obtaining informed consent, the endoscope was passed under direct vision. Throughout the procedure, the patient's blood pressure, pulse, and oxygen saturations were monitored continuously. The Endoscope was introduced through the mouth, and advanced to the second part of duodenum. The upper GI endoscopy was accomplished without difficulty. The patient tolerated the procedure well. Findings: The examined esophagus was normal. The entire examined stomach was normal. The examined duodenum was normal. Biopsies for histology were taken with a cold forceps for evaluation of celiac disease. No signs of GI bleeding Impression: - Normal esophagus. - Normal stomach. - Normal examined duodenum. Biopsied. Recommendation: - [facility]. - Use Prilosec (omeprazole) 20 mg PO daily. - Recommend Outpatient Colonoscopy - Advance Diet without restrictions Wilian Marin MD 07/13/2021 9:21:19 AM This report has been signed electronically. Note Initiated On: 07/13/2021 9:02 AM Number of Addenda: 0 I attest to the content of the Intraoperative Record and orders documented therein, exceptions below {[id number]}
[2021-07-13] MEDS: INSULIN GLARGINE SOLOSTAR 100 UNITS/ML 3 ML PEN SC SCH ×2 (09:24→20:46)
[2021-07-13] MEDS: METOPROLOL SUCC 50MG EXT REL TAB PO SCH ×2 (10:01→20:46)
[2021-07-13] MEDS: TOPIRAMATE 50 MG TAB PO SCH ×2 (10:01→20:46)
[2021-07-13] MEDS: MAGNESIUM OXIDE 400 MG TAB PO SCH (10:01)
[2021-07-13] MEDS: MULTIVITAMIN TAB PO SCH (10:02)
[2021-07-13] MEDS: FLUTICASONE PROPIONATE NA SPR 16 GM BTL SCH (10:02)
[2021-07-13] MEDS: FOLIC ACID 400 MCG TAB PO SCH (10:02)
[2021-07-13] MEDS ORDERED: PROPOFOL IV EMULSION 10 MG/ML 20 ML VIAL IV ONE (10:05)
[2021-07-13] MEDS ORDERED: LIDOCAINE 2% 2 ML VIAL/AMP(20MG/ML) INFIL ONE (10:05)
--- NOTE | 2021-07-13 10:39 | Anesthesiology Progress Note ---
Date of Service July 13, 2021 Anesthesia Post Procedure Vital Signs Vital Signs: Temp Pulse Pulse Resp BP Pulse Ox 07/13/21 10:00 36.8 C 72 19 129/67 99 07/13/21 09:53 72 16 122/46 L 99 07/13/21 09:38 72 16 120/46 L 99 07/13/21 09:23 73 16 97/57 L 99 07/13/21 08:54 36.9 C 76 18 147/83 H 100 07/13/21 08:00 70 07/13/21 07:24 36.7 C 72 18 115/57 L 96 07/13/21 03:10 36.6 C 67 18 100/59 L 94 07/13/21 00:00 79 07/12/21 23:16 36.8 C 67 18 114/68 94 07/12/21 19:51 36.7 C 70 18 108/65 96 07/12/21 16:00 37.0 C 79 16 125/79 96 07/12/21 12:13 36.6 C 73 16 136/78 98 07/12/21 12:00 36.8 C 71 16 98 Pain Intensity Medial Chest: Pain Intensity: 0 Transfer of Care Handoff Completed per policy Notes Mental Status: alert / awake / arousable and participated in evaluation Patient Amnestic to Procedure: Yes Nausea / Vomiting: adequately controlled Pain: adequately controlled Airway Patency, RR, SpO2: stable & adequate BP & HR: stable & adequate Hydration State: stable & adequate Anesthetic Complications: no major complications apparent and Pt Satisfied with anesthetic care
[2021-07-13] MEDS ORDERED: Nursing to Pharmacy Communication SCH (10:45)
[2021-07-13 15:03] LABS: Hematocrit (blood only) 25.1 % (37-47); Hemoglobin 7.9 g/dL (12.0-16.0)
--- NOTE | 2021-07-13 15:40 | Hospitalist Progress Note ---
Date of Service July 13, 2021 Assessment & Plan (1) Anemia: Plan: #. Likely acute metabolic encephalopathy #. Acute on chronic anemia #. Likely UGI bleed #. Weakness Patient presents with worsening confusion since last 2 to 3 days [employer]. Pt from [facility] [phone]]. Patient noted to have hallucination on the day of arrival and also in the ED at bedside exam. Baseline hemoglobin around 7.5-8 lately. Admitting hemoglobin of 5.9 with elevated BUN, concern of blood in stool/dark stool per patient. FOBT pending, transfuse to maintain hemoglobin around 7.5, s/p 2 U PRBC so far. s/p EGD scope 07/13, Normal exam, duodenum biopsied. GI evaled, advance diet, prilosec 20 mg daily, OP colonoscopy. Monitor H&H every day and as needed. Will resume antiplatelets from saul. Change Iv PPI to PO PPI. Encephalopathy likely secondary to uremia from likely GI bleed vs polypharmacy, continue to hold all neuropsychotropic medications as able. Patient on tramadol and Tylenol [id number] for her LLE BKA stump pain management. We will continue with Tylenol for now. Can use lidocaine patch if needed. PT OT when able. #. Elevated troponin Admitting troponin was 65.7 with admitting EKG without acute ST or T changes. Patient with no chest pain, flat trend of troponin Continue to monitor. #. Leukocytosis - Resolved Could be from dehydration, procalcitonin at admission and following day, patient afebrile. Admitting CXR with no acute finding. Monitor off antibiotic. Await Blood culture #. Mild hyponatremia - resolved Admitting sodium of 133, compatible with her recent sodium level. Monitor BMP daily, expect to improve with improvement in her overall condition/diet. #. GUY - resolved BUN elevated to 73 out of proportion to creatinine elevation, likely secondary to upper GI bleed. Likely prerenal from dehydration. Admitting creatinine of 1.38, which resolved following day. Holding nephrotoxics BUN trending down nicely. #. Other chronic medical conditions: Mitral valve infective endocarditis, CAD status post CABG, DM with PDN, GERD Aspirin and Plavix on hold due to GI bleed concern. Tramadol and other neuro psychotropic medications on hold due to acute metabolic encephalopathy. Can use lidocaine patch for pain management, continue with Tylenol. On Sliding scale insulin. Continue other home meds as and when appropriate. #. DVT prophylaxis: SCDs, concerns for GI bleeding. #. Full code 07/11 and 07/12: Pt's dtr updated over the phone, answered all her questions. Dispo: PT/OT, CM to assist w/ DC plan. Likely DC in next 1-2 days. Admission and Anticipated Discharge Date Admission Date: July 11, 2021 Subjective Patient seen and examined at bedside as a follow-up of likely acute metabolic encephalopathy, acute on chronic anemia secondary to likely upper GI bleed and demand ischemia. Patient was sitting up in bed ready to eat lunch, on 1 L nasal cannula oxygen, NAD, AO x 3, confusion resolved, hallucinations resolved. still looks lethargic. Denies headache/dizziness/chest pain/palpitations/other ROS. Denies BM since adm, but today is the first day she will be eating some solid food items. S/P EGD scope 07/13, no lesions found. Physical Exam Physical Exam: GENERAL: Alert and oriented x 3, looks tired and ill appearing, frail. 1L NC O2. HEENT: + pallor, no icterus. Pupils equal, round and reactive to light. Oral mucosa moist. NECK: No JVD, no neck masses. HEART: S1 and S2 heard. Regular rate and rhythm. No murmur, no gallop. RESPIRATORY SYSTEM: Normal AP diameter. No accessory muscle use. No wheezing, no crackles. ABDOMEN: Soft, bowel sounds present, nontender, no distention. CENTRAL NERVOUS SYSTEM: No facial droop. Hallucination noted during bedside exam EXTREMITIES: RLE 1 + edema, LLE BKA noted with clean dressing over the stump w/o soakage. Results & Data Results & Data ([facility]) Vital Signs (Past 12 Hours) Vital Signs Temp Pulse Pulse Resp BP Pulse Ox Pulse Ox 07/13/21 14:54 85 07/13/21 14:00 95 07/13/21 11:00 98 07/13/21 10:00 36.8 C 72 19 129/67 99 07/13/21 09:53 72 16 122/46 L 99 07/13/21 09:38 72 16 120/46 L 99 07/13/21 09:23 73 16 97/57 L 99 07/13/21 08:54 36.9 C 76 18 147/83 H 100 07/13/21 08:00 70 07/13/21 07:24 36.7 C 72 18 115/57 L 96
[2021-07-13] MEDS ORDERED: INSULIN ASPART PER UNIT SC STA ×2 (16:27→18:15)
[2021-07-13] MEDS: ATORVASTATIN 40 MG TAB PO SCH (20:46)
[2021-07-14] MEDS: ACETAMINOPHEN 500 MG TAB PO SCH ×7 (00:45→21:26)
[2021-07-14 05:57] LABS: Hematocrit (blood only) 28.2 % (37-47); Hemoglobin 8.5 g/dL (12.0-16.0); Mean Corpuscular Hemoglobin 28.3 pg (25-34); Mean Corpuscular Hgb Conc 30.1 g/dL (32-36); Mean Platelet Volume 10.1 fL (7.4-10.4); Platelet Count 246 K/uL (130-400); RDW Coefficient of Variation 15.1 % (11.5-14.5); RDW Standard Deviation 51.5 fL (36.4-46.3); White Blood Count 7.65 K/uL (4.8-10.8)
[2021-07-14 06:22] LABS: Anion Gap 7 (3-11); BUN Creatinine Ratio 23.7 (10-20); Blood Urea Nitrogen 22 mg/dl (6-23); Calcium 9.1 mg/dl (8.5-10.1); Carbon Dioxide 24 mmol/L (21-32); Chloride 107 mmol/L (98-107); Creatinine Clr Calc Pharmacy 55.9 ml/min; Est GFR (African American) 75.8 ml/min; Est GFR (Non-African American) 65.4 ml/min; Glucose 161 mg/dl (70-99(Fasting)); Magnesium 1.9 mg/dl (1.7-2.4); Phosphorus 3.5 mg/dl (2.5-4.9); Sodium 138 mmol/L (136-145)
[2021-07-14] MEDS: MULTIVITAMIN TAB PO SCH (08:08)
[2021-07-14] MEDS: PANTOprazole 40 MG TAB PO SCH (08:08)
[2021-07-14] MEDS: METOPROLOL SUCC 50MG EXT REL TAB PO SCH ×2 (08:08→21:05)
[2021-07-14] MEDS: FOLIC ACID 400 MCG TAB PO SCH (08:09)
[2021-07-14] MEDS: TOPIRAMATE 50 MG TAB PO SCH ×2 (08:09→21:05)
[2021-07-14] MEDS: MAGNESIUM OXIDE 400 MG TAB PO SCH (08:09)
[2021-07-14] MEDS: FLUTICASONE PROPIONATE NA SPR 16 GM BTL SCH (08:10)
[2021-07-14] MEDS: INSULIN GLARGINE SOLOSTAR 100 UNITS/ML 3 ML PEN SC SCH ×2 (08:10→21:05)
[2021-07-14] MEDS: INSULIN ASPART PER UNIT SC SCH ×4 (08:13→21:04)
[2021-07-14] MEDS ORDERED: CLOPIDOGREL BISULFATE 75 MG TAB PO SCH (09:00)
[2021-07-14] MEDS ORDERED: ASPIRIN 81 MG ECTAB PO SCH (09:00)
--- NOTE | 2021-07-14 19:10 | Hospitalist Progress Note ---
Date of Service July 14, 2021 Assessment & Plan (1) Anemia: Plan: #. Likely acute metabolic encephalopathy - resolved #. Acute on chronic anemia #. Likely UGI bleed #. Weakness Patient presents with worsening confusion since last 2 to 3 days [employer]. Pt from [facility] [[phone]]. Patient noted to have hallucination on the day of arrival and also in the ED at bedside exam. Baseline hemoglobin around 7.5-8 lately. Admitting hemoglobin of 5.9 with elevated BUN, concern of blood in stool/dark stool per patient. FOBT pending, transfuse to maintain hemoglobin around 7.5, s/p 2 U PRBC so far. s/p EGD scope 07/13, Normal exam, duodenum biopsied. GI evaled, advance diet, prilosec 20 mg daily, OP colonoscopy. Monitor H&H every day and as needed. will hold antiplatelets for 5 days,pt made aware. On PO PPI. Encephalopathy likely secondary to uremia from likely GI bleed vs polypharmacy, continue to hold all neuropsychotropic medications as able. Patient on tramadol and Tylenol [id number] for her LLE BKA stump pain management. We will continue with Tylenol for now. Can use lidocaine patch if needed. PT OT when able. #. Elevated troponin Admitting troponin was 65.7 with admitting EKG without acute ST or T changes. Patient with no chest pain, flat trend of troponin Continue to monitor. #. Leukocytosis - Resolved Could be from dehydration, procalcitonin at admission and following day, patient afebrile. Admitting CXR with no acute finding. Monitor off antibiotic. Await Blood culture #. Mild hyponatremia - resolved Admitting sodium of 133, compatible with her recent sodium level. Monitor BMP daily, expect to improve with improvement in her overall condition/diet. #. GUY - resolved BUN elevated to 73 out of proportion to creatinine elevation, likely secondary to upper GI bleed. Likely prerenal from dehydration. Admitting creatinine of 1.38, which resolved following day. Holding nephrotoxics BUN resolved #. Other chronic medical conditions: Mitral valve infective endocarditis, CAD status post CABG, DM with PDN, GERD Aspirin and Plavix on hold due to GI bleed concern. Tramadol and other neuro psychotropic medications on hold due to acute metabolic encephalopathy. Can use lidocaine patch for pain management, continue with Tylenol. On Sliding scale insulin. Pt takes 46 units long acting insulin at home along w/ sliding scale. Continue other home meds as and when appropriate. #. DVT prophylaxis: SCDs, concerns for GI bleeding. #. Full code 07/11 and 07/12: Pt's dtr updated over the phone, answered all her questions. 07/13: Pt's dtr updated at bedside. Dispo: PT/OT, CM to assist w/ DC plan. stable for DC. GI f/u for colonosocopy. Admission and Anticipated Discharge Date Admission Date: July 11, 2021 Subjective Patient seen and examined at bedside as a follow-up of likely acute metabolic encephalopathy, acute on chronic anemia secondary to likely upper GI bleed and demand ischemia. Patient was lying in bed, on 1 L nasal cannula oxygen, NAD, AO x 3, confusion resolved, hallucinations resolved. Denies headache/dizziness/chest pain /palpitations/other ROS. Has multiple BM yesterday, fobt positive. S/P EGD scope 07/13, no lesions found. Physical Exam Physical Exam: GENERAL: Alert and oriented x 3, looks tired and ill appearing, frail. 1L NC O2. HEENT: + pallor, no icterus. Pupils equal, round and reactive to light. Oral mucosa moist. NECK: No JVD, no neck masses. HEART: S1 and S2 heard. Regular rate and rhythm. No murmur, no gallop. RESPIRATORY SYSTEM: Normal AP diameter. No accessory muscle use. No wheezing, no crackles. ABDOMEN: Soft, bowel sounds present, nontender, no distention. CENTRAL NERVOUS SYSTEM: No facial droop. Hallucination noted during bedside exam EXTREMITIES: RLE 1 + edema, LLE BKA noted with clean dressing over the stump w/o soakage. Results & Data Results & Data ([facility]) Vital Signs (Past 12 Hours) Vital Signs Temp Pulse Pulse Resp BP Pulse Ox Pulse Ox 07/14/21 18:00 36.8 C 72 17 113/68 94 07/14/21 15:44 86 07/14/21 14:00 93 07/14/21 11:00 92 07/14/21 10:42 36.8 C 82 18 148/71 H 92 07/14/21 07:08 79
[2021-07-14] MEDS: ATORVASTATIN 40 MG TAB PO SCH (21:26)
[2021-07-14] MEDS: MELATONIN 3 MG TAB PO PRN (23:17)
[2021-07-15] MEDS: ACETAMINOPHEN 500 MG TAB PO SCH ×6 (02:26→20:35)
[2021-07-15 05:57] LABS: Hematocrit (blood only) 28.1 % (37-47); Mean Corpuscular Volume 93.7 fL (80-100); Mean Platelet Volume 9.9 fL (7.4-10.4); Platelet Count 295 K/uL (130-400); RDW Standard Deviation 49.8 fL (36.4-46.3); White Blood Count 11.15 K/uL (4.8-10.8)
[2021-07-15 06:23] LABS: BUN Creatinine Ratio 17.3 (10-20); Calcium 9.2 mg/dl (8.5-10.1); Creatinine Clr Calc Pharmacy 64.2 ml/min; Est GFR (African American) 89.6 ml/min; Est GFR (Non-African American) 77.3 ml/min; Potassium 3.7 mmol/L (3.5-5.1)
[2021-07-15] MEDS: INSULIN ASPART PER UNIT SC SCH ×4 (08:00→20:25)
[2021-07-15] MEDS: METOPROLOL SUCC 50MG EXT REL TAB PO SCH ×2 (08:07→20:32)
[2021-07-15] MEDS: PANTOprazole 40 MG TAB PO SCH (08:07)
[2021-07-15] MEDS: MULTIVITAMIN TAB PO SCH (08:07)
[2021-07-15] MEDS: MAGNESIUM OXIDE 400 MG TAB PO SCH (08:07)
[2021-07-15] MEDS: TOPIRAMATE 50 MG TAB PO SCH ×2 (08:08→20:31)
[2021-07-15] MEDS: FOLIC ACID 400 MCG TAB PO SCH (08:08)
[2021-07-15] MEDS: FLUTICASONE PROPIONATE NA SPR 16 GM BTL SCH (08:09)
[2021-07-15] MEDS: INSULIN GLARGINE SOLOSTAR 100 UNITS/ML 3 ML PEN SC SCH ×2 (09:16→20:37)
--- NOTE | 2021-07-15 14:35 | Electrocardiogram Report ---
Test Reason : Blood Pressure : / mmHG Vent. Rate : 079 BPM Atrial Rate : 079 BPM P-R Int : 150 ms QRS Dur : 154 ms QT Int : 454 ms P-R-T Axes : 054 000 066 degrees QTc Int : 520 ms Normal sinus rhythm Left bundle branch block Abnormal ECG When compared with ECG of 12-JUL-2021 05:22, Nonspecific T wave abnormality no longer evident in Lateral leads Confirmed by Zuhair Sanford ([id number] on 07/15/2021 2:34:38 PM Referred By: [facility] Confirmed By:Zuhair Sanford
--- NOTE | 2021-07-15 18:36 | Hospitalist Progress Note ---
Date of Service July 15, 2021 Assessment & Plan (1) Anemia: Plan: #. Likely acute metabolic encephalopathy - resolved #. Acute on chronic anemia #. Likely UGI bleed #. 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 Pt from [facility] [[phone]]. Patient noted to have hallucination on the day of arrival and also in the ED at bedside exam. Baseline hemoglobin around 7.5-8 lately. Admitting hemoglobin of 5.9 with elevated BUN, concern of blood in stool/dark stool per patient. FOBT positive, transfuse to maintain hemoglobin around 7.5, s/p 2 U PRBC so far. s/p EGD scope 07/13, Normal exam, duodenum biopsied. GI evaled, advance diet, prilosec 20 mg daily, OP colonoscopy. Monitor H&H every day and as needed. will hold antiplatelets for 5 days,pt made aware. On PO PPI. Encephalopathy likely secondary to uremia from likely GI bleed vs polypharmacy, continue to hold all neuropsychotropic medications as able. Patient on tramadol and Tylenol [id number] for her LLE BKA stump pain management. We will continue with Tylenol for now. Can use lidocaine patch if needed. PT OT when able. #. Elevated troponin Admitting troponin was 65.7 with admitting EKG without acute ST or T changes. Patient with no chest pain, flat trend of troponin Continue to monitor. #. Leukocytosis - Resolved Could be from dehydration, procalcitonin at admission and following day, patient afebrile. Admitting CXR with no acute finding. Monitor off antibiotic. Await Blood culture #. Mild hyponatremia - resolved Admitting sodium of 133, compatible with her recent sodium level. Monitor BMP daily, expect to improve with improvement in her overall condition/diet. #. GUY - resolved BUN elevated to 73 out of proportion to creatinine elevation, likely secondary to upper GI bleed. Likely prerenal from dehydration. Admitting creatinine of 1.38, which resolved following day. Holding nephrotoxics BUN resolved #. Other chronic medical conditions: Mitral valve infective endocarditis, CAD status post CABG, DM with PDN, GERD Aspirin and Plavix on hold due to GI bleed concern. Tramadol and other neuro psychotropic medications on hold due to acute metabolic encephalopathy. Can use lidocaine patch for pain management, continue with Tylenol. On Sliding scale insulin. Pt takes 46 units long acting insulin at home along w/ sliding scale. Continue other home meds as and when appropriate. #. DVT prophylaxis: SCDs, concerns for GI bleeding. #. Full code 07/11 and 07/12: Pt's dtr updated over the phone, answered all her questions. 07/13: Pt's dtr updated at bedside. Dispo: PT/OT, CM to assist w/ DC plan. stable for DC. GI f/u for colonosocopy. Admission and Anticipated Discharge Date Admission Date: July 11, 2021 Subjective Patient seen and examined at bedside as a follow-up of likely acute metabolic encephalopathy, acute on chronic anemia secondary to likely upper GI bleed and demand ischemia. Patient was lying in bed, on 2 L nasal cannula oxygen, NAD, AO x 3, patient complained of transient chest pain in a.m., EKG and troponin ordered, reviewed, WNL. Denies headache/dizziness/further chest pain/palpitations/other ROS. Moving bowels okay. FOBT positive this admission, S/P EGD scope 07/13, no lesions found. Physical Exam Physical Exam: GENERAL: Alert and oriented x 3, looks tired and ill appearing, frail. 2L NC O2. HEENT: + pallor, no icterus. Pupils equal, round and reactive to light. Oral mucosa moist. NECK: No JVD, no neck masses. HEART: S1 and S2 heard. Regular rate and rhythm. No murmur, no gallop. RESPIRATORY SYSTEM: Normal AP diameter. No accessory muscle use. No wheezing, no crackles. ABDOMEN: Soft, bowel sounds present, nontender, no distention. CENTRAL NERVOUS SYSTEM: No facial droop. Hallucination noted during bedside exam EXTREMITIES: RLE no edema, LLE BKA noted with clean dressing over the stump w/o soakage. Results & Data Results & Data ([facility]) Vital Signs (Past 12 Hours) Vital Signs Temp Pulse Pulse Resp BP Pulse Ox 07/15/21 15:24 36.9 C 73 19 152/71 H 95 07/15/21 14:45 72 07/15/21 11:37 37.0 C 83 19 152/82 H 98 07/15/21 09:58 74 07/15/21 07:13 36.8 C 78 19 164/84 H 97
[2021-07-15] MEDS: ATORVASTATIN 40 MG TAB PO SCH (20:29)
[2021-07-16] MEDS: ACETAMINOPHEN 500 MG TAB PO SCH ×6 (02:01→21:03)
[2021-07-16 07:42] LABS: Hematocrit (blood only) 31.4 % (37-47); Hemoglobin 9.8 g/dL (12.0-16.0); Mean Corpuscular Hemoglobin 28.7 pg (25-34); Mean Corpuscular Hgb Conc 31.2 g/dL (32-36); Mean Corpuscular Volume 92.1 fL (80-100); Mean Platelet Volume 10.1 fL (7.4-10.4); Platelet Count 355 K/uL (130-400); RDW Coefficient of Variation 15.8 % (11.5-14.5); RDW Standard Deviation 50.7 fL (36.4-46.3); Red Blood Count 3.41 M/uL (4.2-5.4); White Blood Count 10.71 K/uL (4.8-10.8)
[2021-07-16] MEDS: METOPROLOL SUCC 50MG EXT REL TAB PO SCH ×2 (08:07→21:03)
[2021-07-16] MEDS: PANTOprazole 40 MG TAB PO SCH (08:07)
[2021-07-16] MEDS: MAGNESIUM OXIDE 400 MG TAB PO SCH (08:07)
[2021-07-16] MEDS: TOPIRAMATE 50 MG TAB PO SCH ×2 (08:07→21:02)
[2021-07-16] MEDS: FOLIC ACID 400 MCG TAB PO SCH (08:07)
[2021-07-16] MEDS: MULTIVITAMIN TAB PO SCH (08:08)
[2021-07-16] MEDS: FLUTICASONE PROPIONATE NA SPR 16 GM BTL SCH (08:11)
[2021-07-16] MEDS: INSULIN ASPART PER UNIT SC SCH ×4 (09:25→21:04)
[2021-07-16] MEDS: INSULIN GLARGINE SOLOSTAR 100 UNITS/ML 3 ML PEN SC SCH ×2 (09:26→21:03)
--- NOTE | 2021-07-16 16:18 | Hospitalist Progress Note ---
Date of Service July 16, 2021 Assessment & Plan (1) Anemia: Plan: #. Likely acute metabolic encephalopathy - resolved #. Acute on chronic anemia #. Likely UGI bleed #. 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 Pt from [facility] [[phone]]. Patient noted to have hallucination on the day of arrival and also in the ED at bedside exam. Baseline hemoglobin around 7.5-8 lately. Admitting hemoglobin of 5.9 with elevated BUN, concern of blood in stool/dark stool per patient. FOBT positive, transfuse to maintain hemoglobin around 7.5, s/p 2 U PRBC so far. s/p EGD scope 07/13, Normal exam, duodenum biopsied. GI evaled, advance diet, prilosec 20 mg daily, OP colonoscopy. Monitor H&H every day and as needed. will hold antiplatelets for 5 days,pt made aware. On PO PPI. Encephalopathy likely secondary to uremia from likely GI bleed vs polypharmacy, continue to hold all neuropsychotropic medications as able. Patient on tramadol and Tylenol [id number] for her LLE BKA stump pain management. We will continue with Tylenol for now. Can use lidocaine patch if needed. PT OT when able. #. Elevated troponin Admitting troponin was 65.7 with admitting EKG without acute ST or T changes. Patient with no chest pain, flat trend of troponin Continue to monitor. #. Leukocytosis - Resolved Could be from dehydration, procalcitonin at admission and following day, patient afebrile. LLE BKA stump without s/s of infection. Admitting CXR with no acute finding. Monitor off antibiotic. Await Blood culture #. Mild hyponatremia - resolved Admitting sodium of 133, compatible with her recent sodium level. Monitor BMP daily, expect to improve with improvement in her overall condition/diet. #. GUY - resolved BUN elevated to 73 out of proportion to creatinine elevation, likely secondary to upper GI bleed. Likely prerenal from dehydration. Admitting creatinine of 1.38, which resolved following day. Holding nephrotoxics BUN resolved #. Other chronic medical conditions: Mitral valve infective endocarditis, CAD status post CABG, DM with PDN, GERD Aspirin and Plavix on hold due to GI bleed concern. Tramadol and other neuro psychotropic medications on hold due to acute metabolic encephalopathy. Can use lidocaine patch for pain management, continue with Tylenol. On Sliding scale insulin. Pt takes 46 units long acting insulin at home along w/ sliding scale. Continue other home meds as and when appropriate. #. DVT prophylaxis: SCDs, concerns for GI bleeding. #. Full code 07/11 and 07/12: Pt's dtr updated over the phone, answered all her questions. 07/13: Pt's dtr updated at bedside. Dispo: PT/OT, CM to assist w/ DC plan. stable for DC. GI f/u for colonosocopy. Admission and Anticipated Discharge Date Admission Date: July 11, 2021 Subjective Patient seen and examined at bedside as a follow-up of likely acute metabolic encephalopathy, acute on chronic anemia secondary to likely upper GI bleed and demand ischemia. Patient was lying in bed, on RA, NAD, AO x 3, denies any chest pain or acute events overnight. Denies headache/dizziness/chest pain/palpitations/other ROS. Moving bowels okay. FOBT positive this admission, S/P EGD scope 07/13, no lesions found. Physical Exam Physical Exam: GENERAL: Alert and oriented x 3, looks tired and ill appearing, frail. On RA. HEENT: + pallor, no icterus. Pupils equal, round and reactive to light. Oral mucosa moist. NECK: No JVD, no neck masses. HEART: S1 and S2 heard. Regular rate and rhythm. No murmur, no gallop. RESPIRATORY SYSTEM: Normal AP diameter. No accessory muscle use. No wheezing, no crackles. ABDOMEN: Soft, bowel sounds present, nontender, no distention. CENTRAL NERVOUS SYSTEM: No facial droop. Hallucination noted during bedside exam EXTREMITIES: RLE no edema, LLE BKA noted with clean dressing over the stump w/o soakage. Results & Data Results & Data ([facility]) Vital Signs (Past 12 Hours) Vital Signs Temp Pulse Pulse Resp BP Pulse Ox 07/16/21 15:31 73 07/16/21 11:24 36.7 C 74 18 111/66 99 07/16/21 09:31 77 07/16/21 07:26 36.8 C 70 16 109/68 97
[2021-07-16] MEDS: ATORVASTATIN 40 MG TAB PO SCH (21:02)
[2021-07-16] MEDS: CYCLOBENZAPRINE HCL 10 MG TAB PO PRN (23:01)
[2021-07-17] MEDS: MELATONIN 3 MG TAB PO PRN ×2 (00:39→21:19)
[2021-07-17] MEDS: ACETAMINOPHEN 500 MG TAB PO SCH ×6 (02:16→21:18)
[2021-07-17 06:57] LABS: Hemoglobin 9.3 g/dL (12.0-16.0)
[2021-07-17] MEDS: INSULIN ASPART PER UNIT SC SCH ×4 (08:20→20:25)
[2021-07-17] MEDS: INSULIN GLARGINE SOLOSTAR 100 UNITS/ML 3 ML PEN SC SCH ×2 (08:31→20:27)
[2021-07-17] MEDS: FOLIC ACID 400 MCG TAB PO SCH (09:15)
[2021-07-17] MEDS: MULTIVITAMIN TAB PO SCH (09:15)
[2021-07-17] MEDS: PANTOprazole 40 MG TAB PO SCH (09:15)
[2021-07-17] MEDS: FLUTICASONE PROPIONATE NA SPR 16 GM BTL SCH (09:15)
[2021-07-17] MEDS: MAGNESIUM OXIDE 400 MG TAB PO SCH (09:16)
[2021-07-17] MEDS: TOPIRAMATE 50 MG TAB PO SCH ×2 (09:16→20:25)
[2021-07-17] MEDS: METOPROLOL SUCC 50MG EXT REL TAB PO SCH ×2 (09:18→20:25)
--- NOTE | 2021-07-17 12:23 | Hospitalist Progress Note ---
Date of Service July 17, 2021 Assessment & Plan (1) Anemia: Plan: #. Likely acute metabolic encephalopathy - resolved #. Acute on chronic blood loss anemia #. 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 Pt from [facility] [[phone]]. Patient noted to have hallucination on the day of arrival and also in the ED at bedside exam. Baseline hemoglobin around 7.5-8 lately. Admitting hemoglobin of 5.9 with elevated BUN, concern of blood in stool/dark stool per patient. FOBT positive, s/p 2 U PRBC with improvement in Hb Seen by GI - s/p EGD scope 07/13, Normal exam, duodenum biopsied- pathology negative for spure, parasites or dysplasia/malignancy - Recommended OP colonoscopy by GI - Hold antiplatelets for 5 days, pt aware. - Hb stable, continue PPI - Monitor H&H, transfuse as indicated Encephalopathy likely secondary to uremia from likely GI bleed vs polypharmacy, continue to hold all neuropsychotropic medications as able. Patient on tramadol and Tylenol [id number] for her LLE BKA stump pain management. We will continue with Tylenol for now. Can use lidocaine patch if needed. #. Elevated troponin- likely demand ischemia. Admitting troponin was 65.7 with admitting EKG without acute ST or T changes. - Patient with no chest pain, flat trend of troponin #. Leukocytosis - Resolved Could be from dehydration, procalcitonin at admission and following day, patient afebrile. LLE BKA stump without s/s of infection. Admitting CXR with no acute finding. Monitor off antibiotic. Await Blood culture #. Mild hyponatremia - resolved Admitting sodium of 133, compatible with her recent sodium level. Monitor BMP daily, expect to improve with improvement in her overall condition/diet. #. GUY - resolved BUN elevated to 73 out of proportion to creatinine elevation, likely secondary to upper GI bleed. Likely prerenal from dehydration. Admitting creatinine of 1.38, which resolved following day. Holding nephrotoxics BUN resolved #DM2 with hyperglycemia- Will adjust lantus and novolog for optimal blood sugar control. Home dose is 46 U lantus hs along with SSI #. Other chronic medical conditions: Mitral valve infective endocarditis, CAD status post CABG, GERD Aspirin and Plavix on hold due to GI bleed concern. Tramadol and other neuro psychotropic medications on hold due to acute metabolic encephalopathy. Can use lidocaine patch for pain management, continue with Tylenol. Continue other home meds as and when appropriate. DVT prophylaxis: SCDs. will start sc heparin if H&H remains stable Dispo: PT recommended SNF. Per CM note, insurance denied SNF authorization- will reach out to and get PTP if needed. GI f/u for colonosocopy. Admission and Anticipated Discharge Date Admission Date: July 11, 2021 Subjective She feels fine and ready to get discharged. She remembers me from her last admission. States her hallucinations have resolved. She has vacation planned with her family on 07/30 and hopes to get discharged from the rehab by 07/27 so she can go on vacation. Denies any chest pain, shortness of breath, nausea, vomiting. Physical Exam Physical Exam: General: Sitting comfortably in bed, not in distress, on NC HEENT: EOMI, NETTE, MMM Chest: Clear breath sounds bilaterally with basilar rales CVS: Regular rate and rhythm, normal heart sounds, no murmur Abdomen: Soft, non tender, not distended, normal bowel sounds Neuro: Awake, alert, oriented, conversing well, non focal Extremities: No cyanosis, clubbing. Left BKA covered Results & Data Results & Data ([facility]) Vital Signs (Past 12 Hours) Vital Signs Temp Pulse Pulse Resp BP Pulse Ox 07/17/21 12:13 36.8 C 81 20 153/75 H 97 07/17/21 09:18 37.0 C 76 18 140/65 98 07/17/21 07:16 80 Laboratory Results Short CBC 07/17/21 Range/Units 06:35 Hgb 9.3 L (12.0-16.0) g/dL Hct 29.0 L (37-47) % BMP 07/17/21 06:35 Potassium Cancelled Medications Administered Current Inpatient Medications Acetaminophen (Acetaminophen 325 Mg Tab) 650 mg PO Q4H PRN PRN Reason: Pain or Fever Stop: 08/10/21 14:17 Last Admin: 07/12/21 09:00 Dose: 650 mg Documented by: Acetaminophen (Acetaminophen 500 Mg Tab) 500 mg PO Q4H SAMANTHA Stop: 08/10/21 17:31 Last Admin: 07/17/21 09:14 Dose: 500 mg Documented by: Al Hydrox/Mg Hydrox/Simethicone (Aluminum/Magnesium Susp 30 Ml Udc) 15 ml PO Q4H PRN PRN Reason: Dyspepsia Stop: 08/10/21 14:17 Aspirin (Aspirin 81 Mg Ectab) 81 mg PO DAILY [facility] Stop: 08/13/21 08:59 Last Admin: 07/14/21 08:09 Dose: 81 mg Documented by: Atorvastatin Calcium (Atorvastatin 40 Mg Tab) 80 mg PO HS [facility] Stop: 08/10/21 20:59 Last Admin: 07/16/21 21:02 Dose: 80 mg Documented by: Bisacodyl (Bisacodyl 10 Mg Supp) 10 mg MO DAILY PRN PRN Reason: constipation Stop: 08/10/21 17:31 Clopidogrel Bisulfate (Clopidogrel Bisulfate 75 Mg Tab) 75 mg PO DAILY [facility] Stop: 08/13/21 08:59 Last Admin: 07/14/21 08:09 Dose: 75 mg Documented by: Cyclobenzaprine HCl (Cyclobenzaprine Hcl 10 Mg Tab) 10 mg PO TID PRN PRN Reason: back spasms Stop: 08/10/21 17:31 Last Admin: 07/16/21 23:01 Dose: 10 mg Documented by: Dextrose (Dextrose 50% 50 Ml Syringe) 25 - 50 ml IV UD PRN; Protocol PRN Reason: Hypoglycemia Protocol Stop: 08/10/21 14:31 Last Admin: 07/13/21 22:27 Dose: 25 ml Documented by: Docusate Sodium (Docusate Sodium 100 Mg Cap) 100 mg PO BID PRN PRN Reason: Constipation Stop: 08/10/21 17:31 Fluticasone Propionate (Fluticasone Propionate Na Spr 16 Gm Btl) 2 sprays NA DAILY SAMANTHA Stop: 08/11/21 08:59 Last Admin: 07/17/21 09:15 Dose: Not Given Documented by: Folic Acid (Folic Acid 400 Mcg Tab) 400 mcg PO DAILY SAMANTHA Stop: 08/11/21 08:59 Last Admin: 07/17/21 09:15 Dose: 400 mcg Documented by: Glucagon (Glucagon For Inj 1 Mg Vial) 1 mg SQ UD PRN; Protocol PRN Reason: Hypoglycemia Protocol Stop: 08/10/21 14:31 Glucose (Glucose 10 Tabs/Tube) 4 - 8 tabs PO UD PRN; Protocol PRN Reason: Hypoglycemia Protocol Stop: 08/10/21 14:31 Glucose (Glucose 40% Gel 15 Gm Tube) 15 - 30 gm PO UD PRN; Protocol PRN Reason: Hypoglycemia Protocol Stop: 08/10/21 14:31 Insulin Aspart (Insulin Aspart Per Unit) 0 units SC ACHS [facility] Stop: 08/12/21 11:29 Last Admin: 07/17/21 08:20 Dose: 9 units Documented by: Insulin Glargine (Insulin Glargine Solostar 100 Units/Ml 3 Ml Pen) 26 units SC BID [facility] Stop: 08/16/21 20:59 Magnesium Hydroxide (Magnesium Hydroxide Susp 30 Ml Udc) 30 ml PO Q12H PRN PRN Reason: Constipation Stop: 08/10/21 14:17 Magnesium Oxide (Magnesium Oxide 400 Mg Tab) [facility] [place] [facility] Stop: 08/11/21 08:59 Last Admin: 07/17/21 09:16 Dose: 400 mg Documented by: Melatonin (Melatonin 3 Mg Tab) 3 mg PO HS PRN PRN Reason: Sleep Stop: 08/13/21 23:01 Last Admin: 07/17/21 00:39 Dose: 3 mg Documented by: Metoprolol Succinate (Metoprolol Succ 50mg Ext Rel Tab) 100 mg PO QAM [facility] Stop: 08/11/21 08:59 Last Admin: 07/17/21 09:18 Dose: 100 mg Documented by: Metoprolol Succinate (Metoprolol Succ 50mg Ext Rel Tab) 50 mg PO QPM [facility] Stop: 08/10/21 20:59 Last Admin: 07/16/21 21:03 Dose: 50 mg Documented by: Miscellaneous (Carbohydrates For Hypoglycemia ) 15 - 30 gm PO UD PRN PRN Reason: Hypoglycemia Protocol Stop: 08/10/21 14:31 Multivitamins (Multivitamin Tab) [facility] [place] Stop: 08/11/21 08:59 Last Admin: 07/17/21 09:15 Dose: 1 tab Documented by: Nitroglycerin (Nitroglycerin Sl 0.4 Mg/Tab Tab) 0.4 mg SL UD PRN PRN Reason: Chest Pain Stop: 08/10/21 14:17 Pantoprazole Sodium (Pantoprazole 40 Mg Tab) [facility] [place] Stop: 08/13/21 08:59 Last Admin: 07/17/21 09:15 Dose: 40 mg Documented by: Topiramate (Topiramate 50 Mg Tab) 50 mg PO BID ASMANTHA Stop: 08/10/21 20:59 Last Admin: 07/17/21 09:16 Dose: 50 mg Documented by:
[2021-07-17] MEDS ORDERED: SIMETHICONE 80 MG CHEW PO ONE (16:19)
[2021-07-17] MEDS: ATORVASTATIN 40 MG TAB PO SCH (20:25)
[2021-07-17] MEDS: CYCLOBENZAPRINE HCL 10 MG TAB PO PRN (21:18)
[2021-07-18] MEDS: ACETAMINOPHEN 500 MG TAB PO SCH ×6 (01:07→22:27)
[2021-07-18 06:29] LABS: Hemoglobin 9.2 g/dL (12.0-16.0)
[2021-07-18 06:59] LABS: Calcium 9.3 mg/dl (8.5-10.1); Creatinine Clr Calc Pharmacy 63.1 ml/min; Est GFR (African American) 90.9 ml/min; Est GFR (Non-African American) 78.5 ml/min; Magnesium 1.8 mg/dl (1.7-2.4)
[2021-07-18] MEDS: INSULIN ASPART PER UNIT SC SCH ×4 (08:16→20:54)
[2021-07-18] MEDS: PANTOprazole 40 MG TAB PO SCH (09:09)
[2021-07-18] MEDS: TOPIRAMATE 50 MG TAB PO SCH ×2 (09:09→22:24)
[2021-07-18] MEDS: MULTIVITAMIN TAB PO SCH (09:09)
[2021-07-18] MEDS: FOLIC ACID 400 MCG TAB PO SCH (09:09)
[2021-07-18] MEDS: METOPROLOL SUCC 50MG EXT REL TAB PO SCH ×2 (09:09→22:25)
[2021-07-18] MEDS: MAGNESIUM OXIDE 400 MG TAB PO SCH (09:09)
[2021-07-18] MEDS: FLUTICASONE PROPIONATE NA SPR 16 GM BTL SCH (09:10)
[2021-07-18] MEDS: INSULIN GLARGINE SOLOSTAR 100 UNITS/ML 3 ML PEN SC SCH ×2 (09:23→20:54)
--- NOTE | 2021-07-18 15:51 | Hospitalist Progress Note ---
Date of Service July 18, 2021 Assessment & Plan (1) Anemia: Plan: #. Likely acute metabolic encephalopathy - resolved #. Acute on chronic blood loss anemia- s/p 2 U PRBC transfusion and Hb remains stable at >9 with no evidence of bleeding #. Weakness- PT recommends rehab Patient presented with worsening confusion since last 2 to 3 days [employer] DATA [employer]. Pt from [facility] [[phone]]. Patient noted to have hallucination on the day of arrival and also in the ED at bedside exam. Baseline hemoglobin around 7.5-8 lately but admitting hemoglobin of 5.9 with elevated BUN, concern of blood in stool/dark stool per patient. FOBT positive, s/p 2 U PRBC with improvement in Hb Seen by GI - s/p EGD scope 07/13, Normal exam, duodenum biopsied- pathology negative for spure, parasites or dysplasia/malignancy - Recommended OP colonoscopy by GI - Hold antiplatelets for 5 days, pt aware. Can resume at discharge. - Hb stable, continue PPI Encephalopathy likely secondary to uremia from likely GI bleed vs polypharmacy, continue to hold all neuropsychotropic medications as able. Patient on tramadol and Tylenol [id number] for her LLE BKA stump pain ma nagement. We will continue with Tylenol for now. Can use lidocaine patch if needed. #. Elevated troponin- likely demand ischemia. Admitting troponin was 65.7 with admitting EKG without acute ST or T changes. - Patient with no chest pain, flat trend of troponin #. Leukocytosis - Resolved Could be from dehydration, procalcitonin at admission and following day, patient afebrile. LLE BKA stump without s/s of infection. Admitting CXR with no acute finding. Monitor off antibiotic. Await Blood culture #. Mild hyponatremia - resolved Admitting sodium of 133, compatible with her recent sodium level. Monitor BMP daily, expect to improve with improvement in her overall condition/diet. #. GUY - resolved BUN elevated to 73 out of proportion to creatinine elevation, likely secondary to upper GI bleed. Likely prerenal from dehydration. Admitting creatinine of 1.38, which resolved following day. Holding nephrotoxics BUN resolved #DM2 with hyperglycemia- BG reasonable- continue current regimen of lantus and novolog for optimal blood sugar control- adjust as indicated. Home dose is 46 U lantus hs along with SSI #. Other chronic medical conditions: Mitral valve infective endocarditis, CAD status post CABG, GERD Aspirin and Plavix on hold due to GI bleed concern. Tramadol and other neuro psychotropic medications on hold due to acute metabolic encephalopathy. Can use lidocaine patch for pain management, continue with Tylenol. Continue other home meds as and when appropriate. DVT prophylaxis: SCDs. sc heparin Dispo: PT recommended SNF but declined by insurance- will try to do PTP tomorrow if needed. Admission and Anticipated Discharge Date Admission Date: July 11, 2021 Subjective She feels fine. Denies any new issues. Denies any chest pain or shortness of breath. Discussed about the insurance denial- states she can probably go home from here then. Physical Exam Physical Exam: General: Sitting comfortably in bed, not in distress, on NC HEENT: EOMI, NETTE, MMM Chest: Clear breath sounds bilaterally CVS: Regular rate and rhythm, normal heart sounds, no murmur Abdomen: Soft, non tender, not distended, normal bowel sounds Neuro: Awake, alert, oriented, conversing well, non focal Extremities: No cyanosis, clubbing. Left BKA covered Results & Data Results & Data ([facility]) Vital Signs (Past 12 Hours) Vital Signs Temp Pulse Pulse Resp BP Pulse Ox 07/18/21 10:20 75 07/18/21 08:00 36.5 C 76 18 158/67 H 97 Laboratory Results Short CBC 07/11/21 07/11/21 07/11/21 Range/Units 11:09 11:14 16:39 Hgb (12.0-16.0) g/dL Hct (37-47) % Glucose 279 H (70-99(Fasting)) mg/dl POC Glucose 292 H 223 H (70-99) mg/dl 07/11/21 07/11/21 07/11/21 Range/Units 18:25 20:53 23:46 Hgb (12.0-16.0) g/dL Hct (37-47) % Glucose (70-99(Fasting)) mg/dl POC Glucose 197 H 168 H 88 (70-99) mg/dl 07/12/21 07/12/21 07/12/21 Range/Units 05:12 05:16 12:34 Hgb (12.0-16.0) g/dL Hct (37-47) % Glucose 123 H (70-99(Fasting)) mg/dl POC Glucose 144 H 257 H (70-99) mg/dl 07/12/21 07/12/21 07/12/21 Range/Units 14:08 16:01 20:39 Hgb (12.0-16.0) g/dL Hct (37-47) % Glucose (70-99(Fasting)) mg/dl POC Glucose 277 H 229 H 246 H (70-99) mg/dl 07/13/21 07/13/21 07/13/21 Range/Units 02:39 05:52 07:18 Hgb (12.0-16.0) g/dL Hct (37-47) % Glucose 114 H (70-99(Fasting)) mg/dl POC Glucose 138 H 157 H (70-99) mg/dl 07/13/21 07/13/21 07/13/21 Range/Units 11:21 16:10 16:11 Hgb (12.0-16.0) g/dL Hct (37-47) % Glucose (70-99(Fasting)) mg/dl POC Glucose 222 H 351 H* 358 H* (70-99) mg/dl 07/13/21 07/13/21 07/13/21 Range/Units 18:09 19:35 22:21 Hgb (12.0-16.0) g/dL Hct (37-47) % Glucose (70-99(Fasting)) mg/dl POC Glucose 357 H* 242 H 62 L* (70-99) mg/dl 07/13/21 07/13/21 07/14/21 Range/Units 22:42 23:55 01:00 Hgb (12.0-16.0) g/dL Hct (37-47) % Glucose (70-99(Fasting)) mg/dl POC Glucose 211 H 117 H 97 (70-99) mg/dl 07/14/21 07/14/21 07/14/21 Range/Units 04:18 05:34 07:29 Hgb (12.0-16.0) g/dL Hct (37-47) % Glucose 161 H (70-99(Fasting)) mg/dl POC Glucose 158 H 198 H (70-99) mg/dl 07/14/21 07/14/21 07/14/21 Range/Units 11:26 16:30 20:19 Hgb (12.0-16.0) g/dL Hct (37-47) % Glucose (70-99(Fasting)) mg/dl POC Glucose 258 H 261 H 217 H (70-99) mg/dl 07/15/21 07/15/21 07/15/21 Range/Units 05:23 07:23 11:34 Hgb (12.0-16.0) g/dL Hct (37-47) % Glucose 167 H (70-99(Fasting)) mg/dl POC Glucose 210 H 376 H* (70-99) mg/dl 07/15/21 07/15/21 07/16/21 Range/Units 16:16 20:07 07:19 Hgb (12.0-16.0) g/dL Hct (37-47) % Glucose (70-99(Fasting)) mg/dl POC Glucose 164 H 136 H 171 H (70-99) mg/dl 07/16/21 07/16/21 07/16/21 Range/Units 11:19 11:20 16:28 Hgb (12.0-16.0) g/dL Hct (37-47) % Glucose (70-99(Fasting)) mg/dl POC Glucose 362 H* 324 H* 241 H (70-99) mg/dl 07/16/21 07/17/21 07/17/21 Range/Units 20:43 07:28 11:18 Hgb (12.0-16.0) g/dL Hct (37-47) % Glucose (70-99(Fasting)) mg/dl POC Glucose 224 H 229 H 373 H* (70-99) mg/dl 07/17/21 07/17/21 07/17/21 Range/Units 11:19 16:47 20:04 Hgb (12.0-16.0) g/dL Hct (37-47) % Glucose (70-99(Fasting)) mg/dl POC Glucose 389 H* 113 H 82 (70-99) mg/dl 07/18/21 07/18/21 07/18/21 Range/Units 06:16 06:16 07:33 Hgb 9.2 L (12.0-16.0) g/dL Hct 29.0 L (37-47) % Glucose 215 H (70-99(Fasting)) mg/dl POC Glucose 90 (70-99) mg/dl 07/18/21 Range/Units 11:41 Hgb (12.0-16.0) g/dL Hct (37-47) % Glucose (70-99(Fasting)) mg/dl POC Glucose 120 H (70-99) mg/dl BMP 07/18/21 06:16 Sodium 140 Potassium 4.0 Chloride 111 H Carbon Dioxide 21 BUN 16 Creatinine 0.80 Glucose 215 H Calcium 9.3 Medications Administered Current Inpatient Medications Acetaminophen (Acetaminophen 325 Mg Tab) 650 mg PO Q4H PRN PRN Reason: Pain or Fever Stop: 08/10/21 14:17 Last Admin: 07/12/21 09:00 Dose: 650 mg Documented by: Acetaminophen (Acetaminophen 500 Mg Tab) 500 mg PO Q4H SAMANTHA Stop: 08/10/21 17:31 Last Admin: 07/18/21 14:35 Dose: 500 mg Documented by: Al Hydrox/Mg Hydrox/Simethicone (Aluminum/Magnesium Susp 30 Ml Udc) 15 ml PO Q4H PRN PRN Reason: Dyspepsia Stop: 08/10/21 14:17 Aspirin (Aspirin 81 Mg Ectab) 81 mg PO DAILY [facility] Stop: 08/13/21 08:59 Last Admin: 07/14/21 08:09 Dose: 81 mg Documented by: Atorvastatin Calcium (Atorvastatin 40 Mg Tab) 80 mg PO HS [facility] Stop: 08/10/21 20:59 Last Admin: 07/17/21 20:25 Dose: 80 mg Documented by: Bisacodyl (Bisacodyl 10 Mg Supp) 10 mg MO DAILY PRN PRN Reason: constipation Stop: 08/10/21 17:31 Clopidogrel Bisulfate (Clopidogrel Bisulfate 75 Mg Tab) 75 mg PO DAILY [facility] Stop: 08/13/21 08:59 Last Admin: 07/14/21 08:09 Dose: 75 mg Documented by: Cyclobenzaprine HCl (Cyclobenzaprine Hcl 10 Mg Tab) 10 mg PO TID PRN PRN Reason: back spasms Stop: 08/10/21 17:31 Last Admin: 07/17/21 21:18 Dose: 10 mg Documented by: Dextrose (Dextrose 50% 50 Ml Syringe) 25 - 50 ml IV UD PRN; Protocol PRN Reason: Hypoglycemia Protocol Stop: 08/10/21 14:31 Last Admin: 07/13/21 22:27 Dose: 25 ml Documented by: Docusate Sodium (Docusate Sodium 100 Mg Cap) 100 mg PO BID PRN PRN Reason: Constipation Stop: 08/10/21 17:31 Fluticasone Propionate (Fluticasone Propionate Na Spr 16 Gm Btl) 2 sprays NA DAILY [facility] Stop: 08/11/21 08:59 Last Admin: 07/18/21 09:10 Dose: Not Given Documented by: Folic Acid (Folic Acid 400 Mcg Tab) 400 mcg PO DAILY SAMANTHA Stop: 08/11/21 08:59 Last Admin: 07/18/21 09:09 Dose: 400 mcg Documented by: Glucagon (Glucagon For Inj 1 Mg Vial) 1 mg SQ UD PRN; Protocol PRN Reason: Hypoglycemia Protocol Stop: 08/10/21 14:31 Glucose (Glucose 10 Tabs/Tube) 4 - 8 tabs PO UD PRN; Protocol PRN Reason: Hypoglycemia Protocol Stop: 08/10/21 14:31 Glucose (Glucose 40% Gel 15 Gm Tube) 15 - 30 gm PO UD PRN; Protocol PRN Reason: Hypoglycemia Protocol Stop: 08/10/21 14:31 Insulin Aspart (Insulin Aspart Per Unit) 0 units SC ACHS [facility] Stop: 08/12/21 11:29 Last Admin: 07/18/21 11:45 Dose: Not Given Documented by: Insulin Glargine (Insulin Glargine Solostar 100 Units/Ml 3 Ml Pen) 26 units SC BID SAMANTHA Stop: 08/16/21 20:59 Last Admin: 07/18/21 09:23 Dose: 26 units Documented by: Magnesium Hydroxide (Magnesium Hydroxide Susp 30 Ml Udc) 30 ml PO Q12H PRN PRN Reason: Constipation Stop: 08/10/21 14:17 Magnesium Oxide (Magnesium Oxide 400 Mg Tab) 400 mg PO QAM SAMANTHA Stop: 08/11/21 08:59 Last Admin: 07/18/21 09:09 Dose: 400 mg Documented by: Melatonin (Melatonin 3 Mg Tab) 3 mg PO HS PRN PRN Reason: Sleep Stop: 08/13/21 23:01 Last Admin: 07/17/21 21:19 Dose: 3 mg Documented by: Metoprolol Succinate (Metoprolol Succ 50mg Ext Rel Tab) 100 mg PO QAM [facility] Stop: 08/11/21 08:59 Last Admin: 07/18/21 09:09 Dose: 100 mg Documented by: Metoprolol Succinate (Metoprolol Succ 50mg Ext Rel Tab) 50 mg PO QPM [facility] Stop: 08/10/21 20:59 Last Admin: 07/17/21 20:25 Dose: 50 mg Documented by: Miscellaneous (Carbohydrates For Hypoglycemia ) 15 - 30 gm PO UD PRN PRN Reason: Hypoglycemia Protocol Stop: 08/10/21 14:31 Multivitamins (Multivitamin Tab) 1 tab PO QAM [facility] Stop: 08/11/21 08:59 Last Admin: 07/18/21 09:09 Dose: 1 tab Documented by: Nitroglycerin (Nitroglycerin Sl 0.4 Mg/Tab Tab) 0.4 mg SL UD PRN PRN Reason: Chest Pain Stop: 08/10/21 14:17 Pantoprazole Sodium (Pantoprazole 40 Mg Tab) 40 mg PO QAM [facility] Stop: 08/13/21 08:59 Last Admin: 07/18/21 09:09 Dose: 40 mg Documented by: Topiramate (Topiramate 50 Mg Tab) 50 mg PO BID [facility] Stop: 08/10/21 20:59 Last Admin: 07/18/21 09:09 Dose: 50 mg Documented by:
[2021-07-18] MEDS: HEPARIN SOD 5,000 UNIT/0.5 ML VIAL SQ SCH (20:57)
[2021-07-18] MEDS: ATORVASTATIN 40 MG TAB PO SCH (22:24)
[2021-07-19] MEDS: ACETAMINOPHEN 500 MG TAB PO SCH ×4 (03:00→13:48)
[2021-07-19 06:30] LABS: Hematocrit (blood only) 30.3 % (37-47); Hemoglobin 9.7 g/dL (12.0-16.0)
[2021-07-19] MEDS: FLUTICASONE PROPIONATE NA SPR 16 GM BTL SCH (08:36)
[2021-07-19] MEDS: FOLIC ACID 400 MCG TAB PO SCH (08:39)
[2021-07-19] MEDS: TOPIRAMATE 50 MG TAB PO SCH (08:39)
[2021-07-19] MEDS: INSULIN GLARGINE SOLOSTAR 100 UNITS/ML 3 ML PEN SC SCH (08:40)
[2021-07-19] MEDS: HEPARIN SOD 5,000 UNIT/0.5 ML VIAL SQ SCH (08:40)
[2021-07-19] MEDS: INSULIN ASPART PER UNIT SC SCH ×2 (08:46→12:39)
[2021-07-19] MEDS: MULTIVITAMIN TAB PO SCH (09:47)
[2021-07-19] MEDS: PANTOprazole 40 MG TAB PO SCH (09:48)
[2021-07-19] MEDS: METOPROLOL SUCC 50MG EXT REL TAB PO SCH (09:48)
[2021-07-19] MEDS: MAGNESIUM OXIDE 400 MG TAB PO SCH (09:48)
--- NOTE | 2021-07-19 14:36 | Discharge Summary ---
Date of Service July 19, 2021 Admission HPI Per Admitting Provider 60-year-old lady with PMH of infective endocarditis status post IV vancomycin [completed recently, 1 to 2 weeks ago], bimalleolar fracture of left ankle March 2021 status post hardware placement followed by left ankle OM s/p left BKA by Dr. Yo on 05/16/2021, HFpEF, DM with PDN, CAD status post CABG, HTN, nonrheumatic mitral regurgitation, CAP, GERD, panic disorder, anxiety, tobacco abuse disorder was brought to the ED 07/11 due to worsening weakness and worsening confusion. Of note, patient was recently treated for mitral valve infective endocarditis in May 2021 with IV vancomycin for total of 6 weeks which she completed 1 to 2 weeks ago per [facility]. Patient is coming from [facility]. Patient though oriented x4 is very drowsy and frequently drifts away from conversation and history/ROS did not seem very reliable. Hence history taken from the patient was confirmed with the nurse from [facility] who is taking care of the patient. For this, telephone conversation was held with the nurse from [facility]. Patient has insight that she was hallucinating and was more confused and hence she was brought to the ED. She denied any chest pain, she does complain of blood in the stool and black stool but could not give any further specifics on it. She denies any pain or burning with passing urine. Pt denies headache, fever, dizziness. She also complains of having low back pain. ROS were limited due to her drifting away from conversation very frequently and her being very drowsy. At bedside exam, patient was hallucinating [seeing people fighting in the bathroom]. Per [facility] nurse, patient had been tired and weak since last 2 to 3 days, over the midnight prior to arrival patient was found to be confused with tremor and patient was very weak/"groggy". At baseline patient typically is conversive, AOx4. In the morning, patient was very weak when trying to transfer to wheelchair, patient looked very dehydrated, also nurse commented that her urine looks very concentrated lately. Patient does take tramadol [id number] alternating with Tylenol for her LLE stump site pain. Patient also does have low back pain which is likely chronic per nurse. She denies any recent blood or dark stool but confirms that there was blood in the stool several weeks ago. Per her knowledge, patient does not do any smoking/alcohol/recreational drug. Patient full code per [facility] nurse. Admission Exam Per Admitting Provider GENERAL: very drowsy, Oriented x4, unable to cooperate fully, looks very tired and ill appearing, frail. 3L NC O2. HEENT: + pallor, no icterus. Pupils equal, round and reactive to light. Oral mucosa dry. NECK: No JVD, no neck masses. HEART: S1 and S2 heard. Regular rate and rhythm. No murmur, no gallop. RESPIRATORY SYSTEM: Normal AP diameter. No accessory muscle use. No wheezing, no crackles. ABDOMEN: Soft, bowel sounds present, nontender, no distention. CENTRAL NERVOUS SYSTEM: No facial droop. Hallucination noted during bedside exam EXTREMITIES: RLE 1-2 + edema, LLE BKA noted with clean dressing over the stump w/o soakage. Principal Diagnosis Confusion/hallucination, weakness, acute on chronic blood loss anemia Discharge Exam General: Sitting comfortably in bed, not in distress, on NC HEENT: EOMI, NETTE, MMM Chest: Clear breath sounds bilaterally CVS: Regular rate and rhythm, normal heart sounds, no murmur Abdomen: Soft, non tender, not distended, normal bowel sounds Neuro: Awake, alert, oriented, conversing well, non focal Extremities: No cyanosis, clubbing, no edema. Left BKA stump healed without any infection or drainage Discharge Data Allergies Allergy/AdvReac Type Severity Reaction Status Date / Time latex Allergy Mild Rash Verified 07/11/21 13:17 aspirin Allergy Unknown UNKNOWN Verified 07/11/21 13:17 Consultations 07/11/21 13:41 ED Decision to Admit Stat 07/11/21 14:17 Consult Gastroenterology Routine Procedures Performed Operation Date: 07/13/21 16:45 Actual Procedures p EGD Biopsy Cytology - Wilian Marin MD Ordered Studies Laboratory Results WBC 10.71 K/uL (4.8-10.8) 07/16/21 07:01 RBC 3.41 M/uL (4.2-5.4) L 07/16/21 07:01 Hgb 9.7 g/dL (12.0-16.0) L 07/19/21 05:40 Hct 30.3 % (37-47) L 07/19/21 05:40 MCV 92.1 fL (80-100) 07/16/21 07:01 MCH 28.7 pg (25-34) 07/16/21 07:01 MCHC 31.2 g/dL (32-36) L 07/16/21 07:01 RDW Std Deviation 50.7 fL (36.4-46.3) H 07/16/21 07:01 RDW Coeff of Fabio 15.8 % (11.5-14.5) H 07/16/21 07:01 Plt Count 355 K/uL (130-400) 07/16/21 07:01 MPV 10.1 fL (7.4-10.4) 07/16/21 07:01 Neutrophils % (Manual) 71.0 % 07/11/21 11:09 Lymphocytes % (Manual) 17.0 % 07/11/21 11:09 Monocytes % (Manual) 10.0 % 07/11/21 11:09 Eosinophils % (Manual) 1.0 % 07/11/21 11:09 Basophils % (Manual) 1.0 % 07/11/21 11:09 Neutrophils # (Manual) 9.49 K/uL (1.4-6.5) H 07/11/21 11:09 Total Absolute Neuts 9.49 K/uL (1.4-6.5) H 07/11/21 11:09 Lymphocytes # (Manual) 2.27 K/uL (1.2-3.4) 07/11/21 11:09 Total Abs Lymphocytes 2.27 K/uL (1.2-3.4) 07/11/21 11:09 Monocytes # (Manual) 1.34 K/uL (0.11-0.59) H 07/11/21 11:09 Eosinophils # (Manual) 0.13 K/uL (0-0.5) 07/11/21 11:09 Basophils # (Manual) 0.13 K/uL (0-0.2) 07/11/21 11:09 Hypochromasia Present 07/11/21 11:09 PT 10.4 Seconds (9.0-12.0) 07/11/21 11:09 INR 1.0 (0.9-1.1) 07/11/21 11:09 Sodium 140 mmol/L (136-145) 07/18/21 06:16 Potassium 4.0 mmol/L (3.5-5.1) 07/18/21 06:16 Chloride 111 mmol/L (98-107) H 07/18/21 06:16 Carbon Dioxide 21 mmol/L (21-32) 07/18/21 06:16 Anion Gap 8 (3-11) 07/18/21 06:16 BUN 16 mg/dl (6-23) 07/18/21 06:16 Creatinine 0.80 mg/dl (0.6-1.2) 07/18/21 06:16 Est Cr Clr Drug Dosing 63.1 ml/min 07/18/21 06:16 Est GFR ( Amer) 90.9 ml/min 07/18/21 06:16 Est GFR (Non-Af Amer) 78.5 ml/min 07/18/21 06:16 BUN/Creatinine Ratio 20.0 (10-20) 07/18/21 06:16 Glucose 215 mg/dl (70-99(Fasting)) H 07/18/21 06:16 POC Glucose 240 mg/dl (70-99) H 07/19/21 11:49 Estimat Average Glucose 111 mg/dl 07/12/21 05:12 Hemoglobin A1c 5.5 % (4.5-5.6) 07/12/21 05:12 Lactate 2.0 mmol/L (0.4-2.0) 07/11/21 11:35 Calcium 9.3 mg/dl (8.5-10.1) 07/18/21 06:16 Phosphorus 3.5 mg/dl (2.5-4.9) 07/14/21 05:34 Magnesium 1.8 mg/dl (1.7-2.4) 07/18/21 06:16 Total Bilirubin 1.0 mg/dl (0.2-1.0) D 07/13/21 02:39 AST 22 U/L (13-39) 07/13/21 02:39 ALT 13 U/L (7-52) 07/13/21 02:39 Alkaline Phosphatase 65 U/L (34-104) 07/13/21 02:39 Troponin I High Sens 13.7 pg/ml (0-14) D 07/15/21 08:26 Total Protein 6.4 gm/dl (6.0-8.3) 07/13/21 02:39 Albumin 3.2 gm/dl (3.4-5.0) L 07/13/21 02:39 Globulin 3.2 gm/dl (2.5-4.0) 07/13/21 02:39 Albumin/Globulin Ratio 1.0 (0.9-2) 07/13/21 02:39 Procalcitonin < 0.05 ng/ml (0-0.5) 07/12/21 05:12 Urine Color Yellow 07/11/21 22:57 Urine Appearance Clear (Clear) 07/11/21 22:57 Urine pH 7.5 (4.5-7.5) 07/11/21 22:57 Ur Specific [place] 1.013 (1.000-1.030) 07/11/21 22:57 Urine Protein Negative (Negative) 07/11/21 22:57 Urine Glucose (UA) Negative (Negative) 07/11/21 22:57 Urine Ketones Negative (Negative) 07/11/21 22:57 Urine Blood Negative (Negative) 07/11/21 22:57 Urine Nitrite Negative (Negative) 07/11/21 22:57 Urine Bilirubin Negative (Negative) 07/11/21 22:57 Urine Urobilinogen Negative (Negative) 07/11/21 22:57 Ur Leukocyte Esterase Negative (Negative) 07/11/21 22:57 Stool Occult Bld Scrn Positive (Negative) A 07/13/21 17:48 SARS-CoV-2, RNA, NAAT NEGATIVE (NEGATIVE) 07/19/21 12:35 Blood Type A Positive 07/11/21 11:09 Antibody Screen NEGATIVE 07/11/21 11:09 Crossmatch See Detail 07/11/21 11:09 Impressions Chest X-Ray 07/11/21 11:21 SINGLE VIEW CHEST CLINICAL HISTORY: Sepsis. FINDINGS: An AP, portable, upright chest radiograph is compared to study dated correlation is made with chest CT dated 03/16/2021. The patient is status post midline sternotomy. The heart is enlarged noting atherosclerotic calcification of the thoracic aorta. The pulmonary vasculature is noncongested. Atelectasis is noted at the lung bases. The lungs and pleural spaces are otherwise clear. No pneumothorax is seen. The skeletal structures are osteopenic. The bony thorax is grossly intact. IMPRESSION: Cardiomegaly with no acute cardiopulmonary abnormality. ACT 112: Negative or not required by law. Electronically signed by: Geovani Dumont M.D. 07/11/2021 12:53 PM Hospital Course (1) Anemia: # Suspected acute metabolic encephalopathy - resolved Patient presented with worsening confusion since last 2 to 3 days [employer]. Pt from [facility] [[phone]]. Patient noted to have hallucination on the day of arrival and also in the ED at bedside exam. Encephalopathy likely secondary to uremia from likely GI bleed vs polypharmacy, patient improved after holding all neuropsychotropic medications. Pain is controlled only with tylenol. So will discontinue tramadol, gabapentin. Can use tylenol, liodcaine patch, heat pad as needed for pain rather than narcotics. # Acute on chronic blood loss anemia - s/p 2 U PRBC transfusion and Hb remains stable at >9 with no evidence of bl eeding Baseline hemoglobin around 7.5-8 lately but admitting hemoglobin of 5.9 with elevated BUN, concern of blood in stool/dark stool per patient. FOBT positive, s/p 2 U PRBC with improvement in Hb and has remained stable since Seen by GI - s/p EGD scope 07/13, Normal exam, duodenum biopsied- pathology negative for sprue, parasites or dysplasia/malignancy - Recommended OP colonoscopy by GI- GI will schedule OP appointment- Patient aware - Antiplatelets were held for 5 days as recommended- can resume from tomorrow- recommended patient to follow up with cardio or PCP if one of the antiplatelet can be dropped off- patient aware - Continue PPI - Recommend repeat labs in 4-5 days #. Recent MRSA bacteremia with mitral valve infective endocarditis- s/p 6 weeks of iv vancomycin. Patient was seen by cardio as OP and planned for repeat echo on 07/27. Patient was informed. # DM2 with hyperglycemia- Continue lantus humalog- further management per rehab physician. Home dose is 46 U lantus hs along with SSI # Volume status- looks euvolemic, has not required any lasix since admission and continues to be euvolemic with no edema and stable respiratory status. Hence will make her lasix prn at this point. Can change to daily if starts to swell up or gets dyspneic. #. Elevated troponin- likely demand ischemia.EKG without acute ST or T changes. Patient with no chest pain, flat trend of high sensitivity troponin 65->77->52->13 #. Leukocytosis - likely reactive. Resolved. No evidence of infection. No antibiotics required. #. Mild hyponatremia - resolved, Na 140 #. GUY - resolved. Cr back to 0.8 from peak of 1.4 # H/o CAD status post CABG- recommend following up with cardio if one of the antiplatelet can be dropped off. continue beta raymond, statin #. Debility, s/p BKA- Patient presented from [facility] where she went after BKA for rehab. Seen by PT and recommended SNF but was declined by insurance. I had PTP today with the medical library assistant- denial was overturned and she was approved to go back to SNF for 7 days. Discharging back to [facility]. Total Time Total Time Spent Total Time Spent (In Minutes): 50 Discharge Plan Discharge Items Patient Disposition: Transfer [facility] Reason For Visit: WEAKNESS Discharge Diagnosis: weakness, confusion, acute on chronic anemia due to suspected GI bleed Activity: Resume your previous activity Non-emergency contact: Primary Care Provider Call non-emergency contact if: you have any medication questions, your symptoms worsen, your pain is not controlled and you have a fever Follow-up/Referrals: [facility] [Primary Care Provider] - Diet: Carb Consistent or DM2 Fluids: 1500ml (6 cups) Addtl Attending Provider Instructions: You can resume your aspirin and plavix from tomorrow. I would recommend following up with your heart doctor if you can come off of one of those medications. Watch out for any bleeding. Recommend repeat blood work (CBC, BMP) in a week Follow up with the GI doctors for outpatient colonoscopy to look for the source of bleeding Avoid pain medications like motrin, advil, naproxen, tramadol, percocet. You can take tylenol for pain. your echocardiogram is scheduled for 07/27/21 8:15 am Pending Studies at Discharge: No Stand-Alone Forms: [facility] Skilled Items Patient informed of condition?: Yes DNR: No Discharge Level of Care: Skilled Communicable Disease: No Discharge Prognosis: Stable Lines: None Urinary Catheter: No Medications and DC Order Prescriptions: New lidocaine [Lidoderm] 5 % adhesive patch,medicated 1 patch topical DAILY Qty: 30 RF: 0 Continued atorvastatin 80 mg tablet 80 mg PO HS RF: 0 donepezil 5 mg tablet 5 mg PO HS RF: 0 metoprolol succinate 50 mg tablet extended release 24 hr 100 mg PO QAM RF: 0 clopidogrel 75 mg tablet 75 mg PO DAILY RF: 0 lisinopril 10 mg tablet 10 mg PO DAILY RF: 0 topiramate 50 mg tablet 50 mg PO BID RF: 0 duloxetine 30 mg capsule,delayed release(DR/EC) 30 mg PO QAM RF: 0 duloxetine 60 mg capsule,delayed release(DR/EC) 60 mg PO QAM RF: 0 acetaminophen [Tylenol Extra Strength] 500 mg Tablet 500 mg PO Q4 Qty: 100 RF: 0 bisacodyl 10 mg Suppository 10 mg ND DAILY PRN (Reason: constipation) Qty: 50 RF: 0 magnesium oxide 400 mg (241.3 mg magnesium) Tablet 400 mg PO QAM Qty: 30 RF: 0 magnesium hydroxide [Milk of Magnesia] 400 mg/5 mL Suspension 30 ml PO Q6H PRN (Reason: stomach upset) Qty: 300 RF: 0 docusate sodium 100 mg Capsule 100 mg PO BID PRN (Reason: Constipation) Qty: 60 RF: 0 multivitamin with folic acid [Daily-Hardik (with folic acid)] 400 mcg Tablet 1 tab PO QAM Qty: 30 RF: 0 aspirin 81 mg Tablet,Delayed Release (Dr/Ec) 81 mg PO DAILY RF: 0 insulin glargine [Basaglar KwikPen U-100 Insulin] 100 unit/mL (3 mL) insulin pen 46 unit SUBCUT QAM RF: 0 omeprazole 20 mg capsule,delayed release(DR/EC) 20 mg PO DAILY RF: 0 metoprolol succinate 50 mg tablet extended release 24 hr 50 mg PO QPM RF: 0 polyethylene glycol 3350 [Miralax] 17 gram powder in packet 17 g PO DAILY RF: 0 nitroglycerin 0.4 mg tablet, sublingual 0.4 mg sublingual .PRN/UD PRN (Reason: Chest Pain) RF: 0 insulin aspart U-100 [Novolog Flexpen U-100 Insulin] 100 unit/mL (3 mL) Insulin Pen 0 unit SUBCUT TID RF: 0 sennosides [Senokot] 8.6 mg tablet 17.2 mg PO HS PRN (Reason: Constipation) RF: 0 cyclobenzaprine 10 mg Tablet 10 mg PO TID PRN (Reason: back spasms) RF: 0 folic acid 400 mcg Tablet 0.4 mg PO DAILY RF: 0 pantoprazole [Protonix] 40 mg Tablet,Delayed Release (Dr/Ec) 40 mg PO DAILY RF: 0 fluticasone propionate 50 mcg/actuation [place],Suspension 2 spray INTRANASAL DAILY RF: 0 Changed furosemide 20 mg tablet 60 mg PO DAILY PRN (Reason: prn) Qty: 0 RF: 0 Discontinued tramadol 50 mg tablet 50 mg PO Q6H PRN (Reason: Pain) RF: 0 gabapentin 300 mg capsule 300 mg PO QAM RF: 0 gabapentin 300 mg capsule 600 mg PO HS RF: 0 bumetanide [Bumex] 2 mg Tablet 2 mg PO BID RF: 0 vancomycin 750 mg Recon Soln 750 mg IV Q12 RF: 0 Discharge Orders: Discharge Order (Routine); Ordered 07/19/21 Ordered By: Nicanor Aragon/Other Patient Handouts: DVT Post Op Prevention, Preventing Deep Vein Thrombosis Admission Data Admit Date/Time: 07/11/21 14:18 Attending Provider: Nicanor Smith Admit Provider: Dayanna Mcmanus Primary Care Provider: Mike Washington Other Providers: Mike Washington ; Dayanna Mcmanus ; Justino Baca Other Interventions: Discharge Summary Assessment (RN) Last Done: 07/19/21 13:23
== END 2021-07-19 14:04 | DRG 377 ==
LOC: ED 10:56 → SUATTDRO 14:18 → EDINP 14:18 → 2S 19:01 → 3E 07-18 11:27

== ENCOUNTER 2021-07-28 12:25 | Inpatient (IN) ==
[2021-07-28 13:19] LABS: Hematocrit (blood only) 24.8 % (37-47); Hemoglobin 7.8 g/dL (12.0-16.0); Mean Corpuscular Hemoglobin 27.6 pg (25-34); Mean Corpuscular Hgb Conc 31.5 g/dL (32-36); Mean Corpuscular Volume 87.6 fL (80-100); Mean Platelet Volume 10.9 fL (7.4-10.4); Platelet Count 340 K/uL (130-400); RDW Coefficient of Variation 15.2 % (11.5-14.5); RDW Standard Deviation 49.4 fL (36.4-46.3); Red Blood Count 2.83 M/uL (4.2-5.4); White Blood Count 22.61 K/uL (4.8-10.8)
[2021-07-28 13:27] LABS: INR 1.1 (0.9-1.1); Partial Thromboplastin Ratio 1.1
[2021-07-28] MEDS ORDERED: SODIUM CHLORIDE 0.9% 1000ML 2,000 ML IV ONE (13:51)
[2021-07-28 13:52] LABS: Alanine Aminotransferase 21 U/L (7-52); Albumin Globulin Ratio 0.9 (0.9-2); Albumin Level 3.7 gm/dl (3.4-5.0); Alkaline Phosphatase 87 U/L (34-104); Anion Gap 8 (3-11); Aspartate Aminotransferase 28 U/L (13-39); BUN Creatinine Ratio 29.1 (10-20); Bilirubin,Total 0.9 mg/dl (0.2-1.0); Blood Urea Nitrogen 34 mg/dl (6-23); Calcium 9.2 mg/dl (8.5-10.1); Carbon Dioxide 25 mmol/L (21-32); Chloride 98 mmol/L (98-107); Est GFR (African American) 57.4 ml/min; Est GFR (Non-African American) 49.6 ml/min; Globulin 4.1 gm/dl (2.5-4.0); Glucose 145 mg/dl (70-99(Fasting)); Magnesium 1.9 mg/dl (1.7-2.4); Potassium 3.6 mmol/L (3.5-5.1); Sodium 131 mmol/L (136-145); Total Protein 7.8 gm/dl (6.0-8.3)
[2021-07-28 13:56] LABS: ALC (manual) 1.18 K/uL (1.2-3.4); ANC (manual) 20.46 K/uL (1.4-6.5); Lymphocytes # (manual) 1.18 K/uL (1.2-3.4); Lymphocytes % (manual) 5.2 %; Monocytes # (manual) 0.97 K/uL (0.11-0.59); Monocytes % (manual) 4.3 %; Neutrophils # (manual) 20.46 K/uL (1.4-6.5); Neutrophils % (manual) 90.5 %; Polychromasia 1+
--- NOTE | 2021-07-28 13:56 | Emergency Department Note ---
Impression & Plan Bacteremia, Chills, Leukocytosis, Anemia ED Provider Note NAME: MARSHA WILDE AGE: 61 SEX: F : 1960 ARRIVES VIA: Ambulance INFORMANT: Patient ED PROVIDER(S): Roni Hanks DO CHIEF COMPLAINT: chills and sweats +BC HPI: Patient is a 61-year-old female who presents to the ER referred in from [place] [facility]. She is a resident there currently. History of endocarditis. She has been feeling hot and cold for the past week. They obtained blood cultures and they are positive for gram-positive cocci. She denies any recorded fevers but admits to feeling hot and cold for the past 7 days. No headache or change in vision. No chest pain or shortness of breath. She had a previous amputation below the knee of the left lower extremity secondary to diabetes and ulcer per patient. Denies any belly pain but has had some nausea. No dysuria, urgency, or frequency. No other exacerbating or remitting factors. ROS: See above HPI for pertinent positives & negatives. A total of 10 systems reviewed and were otherwise negative. PAST MEDICAL HISTORY:See Below PAST SURGICAL HISTORY:See Below FAMILY HISTORY:See Below SOCIAL HISTORY:See Below HOME MEDICATIONS:See Below ALLERGIES:See Below VITALS:See Below PHYSICAL EXAMINATION: GENERAL: Sitting up in bed, alert, chronically ill-appearing, disheveled EYE EXAM: normal conjunctiva. PERRL and EOM's grossly intact. OROPHARYNX: no exudate, no erythema, lips, buccal mucosa, and tongue normal and mucous membranes are moist NECK: supple, no nuchal rigidity, no adenopathy, non-tender LUNGS: Clear to auscultation. Normal chest wall mechanics HEART: no murmurs, S1 normal and S2 normal ABDOMEN: abdomen soft, non-tender, normo-active bowel sounds, no masses, no rebound or guarding. UPPER EXTREMITIES: upper extremities are grossly normal. LOWER EXTREMITIES: Left lower extremity below-knee amputation. Small amount of dried blood over the right fifth, fourth and third toe NEURO EXAM: Normal sensorium, cranial nerves II-XII intact, normal speech, no gross weakness of arms, no gross weakness of legs. MEDICAL DECISION MAKING: Patient is a 61-year-old female who presents ER for above-stated complaint. IV was established blood was obtained. Labs show leukocytosis 22,000. Mild anemia at 7.8 which is fairly consistent with previous. INR was unremarkable. BMP with mild hyponatremia 131. LFTs bilirubin was unremarkable. Pro-Jesus was elevated at 1. COVID was negative. Lactate was normal. Additional blood cultures were obtained. She was given IV antibiotics/vancomycin. She is given 2 L normal saline. She is updated bedside. Discussed with hospitalist admitted for further work-up. Previous blood cultures were reviewed which were MRSA positive. Triage Nursing notes reviewed. Limited review of prior medical records performed Vital Signs: reviewed and remarkable for hypertensive Differential diagnosis: Differential diagnosis includes etiologies such as sepsis, UTI, pneumonia, metabolic, electrolyte abnormalities, cardiac sources, intracerebral event, toxicologic, neurological, as well as others were entertained. ER treatment provided: See below Diagnostics interpreted by me: ECG: Sinus rhythm rate 88 Left axis No PVCs Left bundle branch block QTc 522 Cardiac Monitoring: An order was placed for continuous cardiac monitoring. The monitor shows a rate of 82 with sinus rhythm. Laboratory studies: As stated above and show below. Imaging studies: Portable AP upright 1 view of the chest was unremarkable Consultation(s): Discussed with hospitalist for further evaluation Procedures: none Critical Care: None Past Med/Surg History Medical History (Updated 07/28/21 @ 18:23 by Roni Hanks DO) Anxiety Bone infection of left ankle Carpal tunnel syndrome, left Chronic congestive heart failure with left ventricular diastolic dysfunction Coronary artery disease Diabetes mellitus, type 2 Encounter for pre-operative examination History of left below knee amputation HTN (hypertension) Psychotic disorder Tobacco use disorder Ulnar neuropathy at elbow of left upper extremity Surgical History (Updated 07/28/21 @ 17:30 by Zafar Cota MD) Status post cholecystectomy Status post coronary artery bypass grafting Status post hysterectomy Status post ORIF of fracture of ankle R, 2017 Family History Other Diabetes Heart disease Social History Smoking Status: Former smoker Tobacco Type: Cigarettes packs per day: 1; Years Smoked: 35; Second Hand Exposure: No; Do You Dip or Chew Tobacco: No; Tobacco Cessation Education Requested by Patient: No Hx Alcohol Use: No Hx Substance Use: No Preferred Language: Swedish Communication Ability: Effective 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 Beliefs That Will Affect Care: None marital status: Current Living Situation: Rehab Other Information That Helps Us Care for You: No Feels Safe at Home: Yes Safety Concerns: Feels Safe At This Time Assistive Devices: Denture - Upper, Walker and Wheelchair Allergies Allergies Allergy/AdvReac Type Severity Reaction Status Date / Time latex Allergy Mild Rash Verified 07/11/21 13:17 aspirin Allergy Unknown UNKNOWN Verified 07/11/21 13:17 Home Meds Home Medications Medication Instructions Recorded Confirmed atorvastatin 80 mg tablet 80 mg PO HS 03/16/21 07/28/21 clopidogrel 75 mg tablet 75 mg PO DAILY 03/16/21 07/28/21 duloxetine 30 mg capsule,delayed 30 mg PO QAM 03/16/21 07/28/21 release duloxetine 60 mg capsule,delayed 60 mg PO QAM 03/16/21 07/28/21 release lisinopril 10 mg tablet 10 mg PO DAILY 03/16/21 07/28/21 metoprolol succinate 50 mg 100 mg PO QAM 03/16/21 07/28/21 tablet,extended release 24 hr topiramate 50 mg tablet 50 mg PO BID 03/16/21 07/28/21 aspirin 81 mg tablet,delayed 81 mg PO DAILY 05/14/21 07/28/21 release insulin aspart U-100 100 unit/mL 0 unit SUBCUT TID 05/14/21 07/28/21 (3 mL) subcutaneous pen (Novolog Flexpen U-100 Insulin aspart) insulin glargine 100 unit/mL (3 46 unit SUBCUT QAM 05/14/21 07/28/21 mL) subcutaneous pen (Basaglar KwikPen U-100 Insulin) metoprolol succinate 50 mg 50 mg PO QPM 05/14/21 07/28/21 tablet,extended release 24 hr nitroglycerin 0.4 mg sublingual 0.4 mg SUBLINGUAL .PRN/UD PRN 05/14/21 07/28/21 tablet polyethylene glycol 3350 17 gram 17 g PO DAILY 05/14/21 07/28/21 oral powder packet (Miralax) cyclobenzaprine 10 mg tablet 10 mg PO TID PRN 07/01/21 07/28/21 fluticasone propionate 50 2 spray INTRANASAL QAM 07/01/21 07/28/21 mcg/actuation nasal spray,suspension folic acid 400 mcg tablet 0.4 mg PO DAILY 07/01/21 07/28/21 pantoprazole 40 mg tablet,delayed 40 mg PO DAILY 07/01/21 07/28/21 release (Protonix) acetaminophen 325 mg tablet 650 mg PO QID PRN MDD 3g 07/28/21 07/28/21 levofloxacin 750 mg tablet 750 mg PO DAILY 07/28/21 07/28/21 magnesium hydroxide 400 mg/5 mL 30 ml PO DAILY PRN 07/28/21 07/28/21 oral suspension (Milk of Magnesia) promethazine 25 mg/mL injection 25 mg IM Q6H PRN 07/28/21 07/28/21 solution tramadol 50 mg tablet 50 mg PO Q6H PRN 07/28/21 07/28/21 Previous Rx's Medication Instructions Recorded magnesium oxide 400 mg (241.3 mg 400 mg PO QAM #30 tab 03/29/21 magnesium) tablet multivitamin with folic acid 400 1 tab PO QAM #30 tab 03/29/21 mcg tablet (Daily-Hardik (with folic acid)) lidocaine 5 % topical patch 1 patch TOPICAL DAILY #30 ea 07/19/21 (Lidoderm) Results & Data (ED) Vital Signs Vital Signs - 24 hr 07/28/21 12:28 07/28/21 14:01 Temperature 36.1 C L Temperature Source Temporal Artery Scan Pulse Rate 88 Pulse Rate [Finger] 91 H Respiratory Rate 19 14 Respiratory Effort / Characteristics Non-Labored Blood Pressure 143/83 H Blood Pressure [Left Arm] 183/92 H Blood Pressure Mean 103 Blood Pressure Mean [Left Arm] 122 Pulse Oximetry 92 100 Oxygen Delivery Method Nasal Cannula Room Air Oxygen Flow Rate 2 Sepsis Recent Fever Within 48 Hours No Sepsis New/Unexplained Change in Mental Status N/A Sepsis Action Taken by Nursing No Action Required Laboratory Data Result diagrams: 07/28/21 12:58 07/28/21 12:58 Lab Results 07/28/21 07/28/21 07/28/21 Range/Units 12:58 12:58 12:58 WBC 22.61 H (4.8-10.8) K/uL RBC 2.83 L (4.2-5.4) M/uL Hgb 7.8 L (12.0-16.0) g/dL Hct 24.8 L (37-47) % MCV 87.6 (80-100) fL MCH 27.6 (25-34) pg MCHC 31.5 L (32-36) g/dL RDW Std Deviation 49.4 H (36.4-46.3) fL RDW Coeff of Fabio 15.2 H (11.5-14.5) % Plt Count 340 (130-400) K/uL MPV 10.9 H (7.4-10.4) fL Neutrophils % (Manual) 90.5 % Lymphocytes % (Manual) 5.2 % Monocytes % (Manual) 4.3 % Neutrophils # (Manual) 20.46 H (1.4-6.5) K/uL Total Absolute Neuts 20.46 H (1.4-6.5) K/uL Lymphocytes # (Manual) 1.18 L (1.2-3.4) K/uL Total Abs Lymphocytes 1.18 L (1.2-3.4) K/uL Monocytes # (Manual) 0.97 H (0.11-0.59) K/uL Polychromasia 1+ PT 12.0 (9.0-12.0) Seconds INR 1.1 (0.9-1.1) APTT 31.0 (21.0-31.0) Seconds PTT Ratio 1.1 Sodium 131 L (136-145) mmol/L Potassium 3.6 (3.5-5.1) mmol/L Chloride 98 (98-107) mmol/L Carbon Dioxide 25 (21-32) mmol/L Anion Gap 8 (3-11) BUN 34 H (6-23) mg/dl Creatinine 1.17 (0.6-1.2) mg/dl Est Cr Clr Drug Dosing Not Reportable Est GFR ( Amer) 57.4 ml/min Est GFR (Non-Af Amer) 49.6 ml/min BUN/Creatinine Ratio 29.1 H (10-20) Glucose 145 H (70-99(Fasting)) mg/dl Calcium 9.2 (8.5-10.1) mg/dl Magnesium 1.9 (1.7-2.4) mg/dl Total Bilirubin 0.9 D (0.2-1.0) mg/dl AST 28 (13-39) U/L ALT 21 (7-52) U/L Alkaline Phosphatase 87 (34-104) U/L Total Protein 7.8 (6.0-8.3) gm/dl Albumin 3.7 (3.4-5.0) gm/dl Globulin 4.1 H (2.5-4.0) gm/dl Albumin/Globulin Ratio 0.9 (0.9-2) Procalcitonin (0-0.5) ng/ml 07/28/21 Range/Units 12:58 WBC (4.8-10.8) K/uL RBC (4.2-5.4) M/uL Hgb (12.0-16.0) g/dL Hct (37-47) % MCV (80-100) fL MCH (25-34) pg MCHC (32-36) g/dL RDW Std Deviation (36.4-46.3) fL RDW Coeff of Fabio (11.5-14.5) % Plt Count (130-400) K/uL MPV (7.4-10.4) fL Neutrophils % (Manual) % Lymphocytes % (Manual) % Monocytes % (Manual) % Neutrophils # (Manual) (1.4-6.5) K/uL Total Absolute Neuts (1.4-6.5) K/uL Lymphocytes # (Manual) (1.2-3.4) K/uL Total Abs Lymphocytes (1.2-3.4) K/uL Monocytes # (Manual) (0.11-0.59) K/uL Polychromasia PT (9.0-12.0) Seconds INR (0.9-1.1) APTT (21.0-31.0) Seconds PTT Ratio Sodium (136-145) mmol/L Potassium (3.5-5.1) mmol/L Chloride (98-107) mmol/L Carbon Dioxide (21-32) mmol/L Anion Gap (3-11) BUN (6-23) mg/dl Creatinine (0.6-1.2) mg/dl Est Cr Clr Drug Dosing Est GFR ( Amer) ml/min Est GFR (Non-Af Amer) ml/min BUN/Creatinine Ratio (10-20) Glucose (70-99(Fasting)) mg/dl Calcium (8.5-10.1) mg/dl Magnesium (1.7-2.4) mg/dl Total Bilirubin (0.2-1.0) mg/dl AST (13-39) U/L ALT (7-52) U/L Alkaline Phosphatase (34-104) U/L Total Protein (6.0-8.3) gm/dl Albumin (3.4-5.0) gm/dl Globulin (2.5-4.0) gm/dl Albumin/Globulin Ratio (0.9-2) Procalcitonin 1.08 H (0-0.5) ng/ml Administered Medications Discontinued Medications Sodium Chloride (Nss 1000ml) 2,000 mls @ 999 mls/hr IV .Q2H1M ONE Stop: 07/28/21 15:51 Last Infusion: 07/28/21 14:09 Dose: 0 mls/hr Documented by: [id number] Admin: 07/28/21 14:03 Dose: 999 mls/hr Documented by: [id number] Vancomycin HCl 1,500 mg/ (Sodium Chloride) 530 mls @ 200 mls/hr IV NOW STA Stop: 07/28/21 16:46 Last Admin: 07/28/21 15:22 Dose: 200 mls/hr Documented by: [id number] Ioversol (Optiray 320 100ml) 95 ml IV ONCE ONE Stop: 07/28/21 16:10 Last Admin: 07/28/21 16:10 Dose: 95 ml Documented by: [id number] Imaging Data Radiologist's Impression: Chest X-Ray 07/28/21 13:53 XR chest 1V portable CLINICAL HISTORY: sepsis COMPARISON STUDY: Chest radiograph July 11, 2021. FINDINGS: Lung volumes are normal. Lungs are clear. There is no pneumothorax or pleural effusion. Mild cardiomegaly is unchanged. There are mediastinal wires and mediastinal surgical clips. Mediastinal contours are normal. There is no evidence for pulmonary edema. IMPRESSION: No acute cardiopulmonary findings. Cardiomegaly. ACT 112: Negative or not required by law. Electronically signed by: Grover Delacruz M.D. 07/28/2021 2:20 PM Discharge Plan Visit Data Chief Complaint: Referred by Doctor Stated Complaint: GO TO TRIAGE ED Provider: Roni Hanks Discharge Problem: Bacteremia, Chills, Leukocytosis, Anemia Discharge Instructions Interventions: ED Discharge Assessment Last Done: 07/28/21 17:58 Discharge Problem: Leukocytosis Qualifiers: Leukocytosis type: unspecified Qualified Code(s): D72.829 - Elevated white blood cell count, unspecified Anemia Qualifiers: Anemia type: unspecified type Qualified Code(s): D64.9 - Anemia, unspecified
[2021-07-28] MEDS ORDERED: VANCOMYCIN HCL 1,500 MG in SODIUM CHLORIDE 0.9% 500 ML IV STA (14:08)
--- NOTE | 2021-07-28 14:15 | History & Physical Report ---
Date of Service July 28, 2021 Assessment & Plan (1) Bacteremia: (2) Endocarditis: Plan: History severe sepsis, MRSA bacteremia, osteomyelitis, endocarditis in 05/19/21. Echo 05/19/2021 with 1.3 x 0.6 cm mitral valve leaflet lesion. Was treated with vancomycin for 6 weeks. Negative blood cultures 07/11/21 3 days ago fever of 102.6F, chills, malaise, nausea. +leukocytosis. Gram positive cocci on blood cultures 07/27/21 Outpatient echo on 07/27/2021: EF: 45%, grade 1 diastolic dysfunction, increased focal thickness of the anterior mitral valve leaflet, moderate mitral regurgitation, pulmonary hypertension, mild left atrial enlargement In ER patient afebrile, vitals stable. WBC: 22, Lactate: 1.0. Procalcitonin: 1.08 Repeat blood cultures obtained in ER are pending In ER given 2L NSS ?Possible incomplete treatment of Endocarditis vs new infection UA pending CXR: no acute infiltrate Vancomycin ID consult Cardiology consult CBC, CMP in am (3) Back pain: Plan: c/o mid/low back pain increased from her baseline Obtain CT thoracic and lumbar spine to r/o discitis Lidocaine patch, heat to area Continue tramadol prn (4) Constipation: Plan: +constipation, lower abdominal discomfort suspect lower abdominal discomfort secondary to constipation. if no improvement with bowel regimen consider abdominal imaging (5) Hypoxia: Plan: 2L Oxygen dependent since hospitalization in 05/2021 Does not currently appear volume overloaded Continue supplemental oxygen (6) Diabetes mellitus, type 2: Plan: A1c: 5.5 on 07/12/21, 10.3 on 05/15/21 Continue basal bolus insulin (7) Anemia: Plan: Acute on chronic anemia Hgb: 7.8. Was 8.4 on 07/27/21 No active bleeding noted Monitor H&H (8) Chronic congestive heart failure with left ventricular diastolic dysfunction: Plan: echo on 07/27/2021: EF: 45%, grade 1 diastolic dysfunction, increased focal thickness of the anterior mitral valve leaflet, moderate mitral regurgitation, pulmonary hypertension, mild left atrial enlargement Appears on dry side currently Monitor I's &O's (9) Coronary artery disease: Plan: S/P CABG Continue aspirin, Plavix, metoprolol succinate (10) HTN (hypertension): Plan: Continue lisinopril, metoprolol succinate DVT Prophylaxis SCDs Full Code as per discussion with pt Pt was seen and care coordinated with Dr Smith. See addendum History of Present Illness Primary Care Provider: [facility] Patient is 61 y/o F with PMH DM II, CAD s/p CABG, HTN, h/o mitral regurgitation, GERD, anxiety, anemia presented to ER for positive blood cultures. 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 Was treated with vancomycin for 6 weeks. Hospitalization 07/11/2021-07/19 for encephalopathy, acute on chronic anemia likely secondary to UGI bleed and had negative blood cultures on 07/11/2021. At [facility] developed chills, fever 102.6F on 07/25/2021, nausea, malaise, decreased appetite. She had outpatient labs on 07/26/2021 with WBC of 14.6 trended up to 21.8 on 07/27/2021. Outpatient blood cultures from 07/27/2021 gram-positive cocci. Had echo on 07/27/2021: EF: 45%, grade 1 diastolic dysfunction, increased focal thickness of the anterior mitral valve leaflet, moderate mitral regurgitation, pulmonary hypertension, mild left atrial enlargement. Patient reports mid and lower back pain. Also complains of lower abdominal discomfort. She reports no BM for days. Feels a little dizzy with attempted ambulation. Has been requiring oxygen supplementation at 2L via nasal cannula since hospitalization in 05/2021. Reports SOB with exertion. Denies chest pain or cough. Feels throat is dry and sore. Denies vomiting, GILL, dizziness, syncope, vision changes, neck pain, orthopnea, palpitations, cough, choking, otalgia, rhinorrhea, paresthesias, extremity weakness, extremity edema, rashes, urinary symptoms. Allergies Allergy/AdvReac Type Severity Reaction Status Date / Time latex Allergy Mild Rash Verified 07/11/21 13:17 aspirin Allergy Unknown UNKNOWN Verified 07/11/21 13:17 Home Medications Medication Instructions Recorded Confirmed Type atorvastatin 80 mg tablet 80 mg PO HS 03/16/21 07/28/21 History clopidogrel 75 mg tablet 75 mg PO DAILY 03/16/21 07/28/21 History duloxetine 30 mg capsule,delayed 30 mg PO QAM 03/16/21 07/28/21 History release duloxetine 60 mg capsule,delayed 60 mg PO QAM 03/16/21 07/28/21 History release lisinopril 10 mg tablet 10 mg PO DAILY 03/16/21 07/28/21 History metoprolol succinate 50 mg 100 mg PO QAM 03/16/21 07/28/21 History tablet,extended release 24 hr topiramate 50 mg tablet 50 mg PO BID 03/16/21 07/28/21 History magnesium oxide 400 mg (241.3 mg 400 mg PO QAM #30 tab 03/29/21 07/28/21 Rx magnesium) tablet multivitamin with folic acid 400 1 tab PO QAM #30 tab 03/29/21 07/28/21 Rx mcg tablet (Daily-Hardik (with folic acid)) aspirin 81 mg tablet,delayed 81 mg PO DAILY 05/14/21 07/28/21 History release insulin aspart U-100 100 unit/mL 0 unit SUBCUT TID 05/14/21 07/28/21 History (3 mL) subcutaneous pen (Novolog Flexpen U-100 Insulin aspart) insulin glargine 100 unit/mL (3 46 unit SUBCUT QAM 05/14/21 07/28/21 History mL) subcutaneous pen (Basaglar KwikPen U-100 Insulin) metoprolol succinate 50 mg 50 mg PO QPM 05/14/21 07/28/21 History tablet,extended release 24 hr nitroglycerin 0.4 mg sublingual 0.4 mg SUBLINGUAL .PRN/UD PRN 05/14/21 07/28/21 History tablet polyethylene glycol 3350 17 gram 17 g PO DAILY 05/14/21 07/28/21 History oral powder packet (Miralax) cyclobenzaprine 10 mg tablet 10 mg PO TID PRN 07/01/21 07/28/21 History fluticasone propionate 50 2 spray INTRANASAL QAM 07/01/21 07/28/21 History mcg/actuation nasal spray,suspension folic acid 400 mcg tablet 0.4 mg PO DAILY 07/01/21 07/28/21 History pantoprazole 40 mg tablet,delayed 40 mg PO DAILY 07/01/21 07/28/21 History release (Protonix) lidocaine 5 % topical patch 1 patch TOPICAL DAILY #30 ea 07/19/21 07/28/21 Rx (Lidoderm) acetaminophen 325 mg tablet 650 mg PO QID PRN MDD 3g 07/28/21 07/28/21 History levofloxacin 750 mg tablet 750 mg PO DAILY 07/28/21 07/28/21 History magnesium hydroxide 400 mg/5 mL 30 ml PO DAILY PRN 07/28/21 07/28/21 History oral suspension (Milk of Magnesia) promethazine 25 mg/mL injection 25 mg IM Q6H PRN 07/28/21 07/28/21 History solution tramadol 50 mg tablet 50 mg PO Q6H PRN 07/28/21 07/28/21 History Past Med/Surg History Medical History Anxiety Bone infection of left ankle Carpal tunnel syndrome, left Chronic congestive heart failure with left ventricular diastolic dysfunction Coronary artery disease Diabetes mellitus, type 2 Encounter for pre-operative examination History of left below knee amputation HTN (hypertension) Psychotic disorder Tobacco use disorder Ulnar neuropathy at elbow of left upper extremity Surgical History Status post cholecystectomy Status post coronary artery bypass grafting Status post hysterectomy Status post ORIF of fracture of ankle R, 2017 Family History Other Diabetes Heart disease Social History Smoking Status: Former smoker Tobacco Type: Cigarettes packs per day: 1; Years Smoked: 35; Second Hand Exposure: No; Do You Dip or Chew Tobacco: No; Tobacco Cessation Education Requested by Patient: No Hx Alcohol Use: No Hx Substance Use: No Preferred Language: Romansh Communication Ability: Effective Nut Former Required: No Beliefs That Will Affect Care: None marital status: Current Living Situation: Rehab Other Information That Helps Us Care for You: No Feels Safe at Home: Yes Safety Concerns: Feels Safe At This Time Assistive Devices: Denture - Upper, Walker and Wheelchair Review of Systems Review of Systems: All systems reviewed & are unremarkable except as noted in HPI & below Physical Exam Physical Exam: General: appears fatigued, no acute distress, WDWN Head: normocephalic, atraumatic Eyes: PERRL, EOM's intact, conjunctiva non-injected, anicteric ENT: normal inspection external ears, nose, mucous membranes dry Neck: supple, trachea midline, non-tender Lungs: clear, no respiratory distress, no wheezing/rhonchi/rales CV: RRR, + murmur, no pretibial edema Abd: normal BS, soft, + mild tenderness to LLQ, RLQ without rebound or guarding Ext: no cyanosis, no erythema, +left BKA without erythema or tenderness Neuro: A&O x 3, no focal deficits noted, normal affect Skin: warm, dry Results & Data Results & Data ([facility]) Vital Signs (Past 12 Hours) Vital Signs Temp Pulse Pulse Resp BP BP Pulse Ox 07/28/21 14:01 91 H 14 183/92 H 100 07/28/21 12:28 36.1 C L 88 19 143/83 H 92 Laboratory Results Short CBC 07/28/21 Range/Units 12:58 WBC 22.61 H (4.8-10.8) K/uL Hgb 7.8 L (12.0-16.0) g/dL Hct 24.8 L (37-47) % Plt Count 340 (130-400) K/uL BMP 07/28/21 12:58 Sodium 131 L Potassium 3.6 Chloride 98 Carbon Dioxide 25 BUN 34 H Creatinine 1.17 Glucose 145 H Calcium 9.2 Liver Function 07/28/21 Range/Units 12:58 Total Bilirubin 0.9 D (0.2-1.0) mg/dl AST 28 (13-39) U/L ALT 21 (7-52) U/L Alkaline Phosphatase 87 (34-104) U/L Albumin 3.7 (3.4-5.0) gm/dl Diagnostic Findings Chest X-Ray 07/28/21 13:53 XR chest 1V portable CLINICAL HISTORY: sepsis COMPARISON STUDY: Chest radiograph July 11, 2021. FINDINGS: Lung volumes are normal. Lungs are clear. There is no pneumothorax or pleural effusion. Mild cardiomegaly is unchanged. There are mediastinal wires and mediastinal surgical clips. Mediastinal contours are normal. There is no evidence for pulmonary edema. IMPRESSION: No acute cardiopulmonary findings. Cardiomegaly. ACT 112: Negative or not required by law. Electronically signed by: Grover Delacruz M.D. 07/28/2021 2:20 PM Supervising Physician Co-Signing Physician Notes Patient was seen and examined independently at bedside. Chart reviewed. Case discussed with Claudia HERNANDEZ and agree with the documentation above. In summary, this is a 61 year old female with h/o recent admissions 05/14-06/01 (LLE OM s/p BKA 05/16/21, MRSA bacteremia and MV IE s/p 6 weeks of IV vancomycin completed 06/28), recently readmitted 07/11-07/19 for AMS (blood clx that admission was negative and she remained stable for the whole week without any fever or leucocytosis) and [facility] presented today with positive blood culture and concern for recurrent MV IE (echo 07/27 with increased focal thickness of anterior MV leaflet with mod MR). Patient was doing fine until 3 days back when she started having fever with N/V, decreased appetite and abdominal pain with constipation. Had labs drawn which showed worsening leucocytosis and blood cult ure yesterday was positive- hence sent to ED. In the ED she is afebrile, hemodynamically stable. Also complains of back pain which has not improved (states it is worse than her abdominal pain). She is asking for something to drink. Denies any chest pain, shortness of breath. Labs- WBC 22.6, Hb 7.8, Na 131, Cr 1.17, procal pending. CRP 15, ESR 54 from yesterday. Blood clx with GPC in clusters in 4/4 bottles from yesterday, blood clx from today pending. Given iv vancomycin in ED, which we will continue pending blood culture results. Given persistent back pain with bacteremia, will get CT thoracolumbar spine to r/o diskitis. Consult ID and cardiology. Treat constipation with laxative. Continue lantus, SSI for diabetes mellitus. Other chronic medical conditions stable. Rest as per the note above.
--- NOTE | 2021-07-28 14:22 | XRay Report ---
XR chest 1V portable CLINICAL HISTORY: sepsis COMPARISON STUDY: Chest radiograph July 11, 2021. FINDINGS: Lung volumes are normal. Lungs are clear. There is no pneumothorax or pleural effusion. Mil d cardiomegaly is unchanged. There are mediastinal wires and mediastinal surgical clips. Mediastinal contours are normal. There is no evidence for pulmonary edema. IMPRESSION: No acute cardiopulmonary findings. Cardiomegaly. ACT 112: Negative or not required by law. Electronically signed by: Grover Delacruz M.D. 07/28/2021 2:20 PM
--- NOTE | 2021-07-28 15:32 | Communication Note ---
Date of Service: July 28, 2021 Patient was seen and examined independently at bedside. Chart reviewed. Case discussed with Claudia HERNANDEZ and agree with the documentation above. In summary, toyin ortiz is a 61 year old female with h/o recent admissions 05/14-06/01 (LLE OM s/p BKA 05/16/21, MRSA bacteremia and MV IE s/p 6 weeks of IV vancomycin completed 06/28), recently readmitted 07/11-07/19 for AMS (blood clx that admission was negative and she remained stable for the whole week without any fever or leucocytosis) and [facility] back to [facility] presented today with positive blood culture and concern for recurrent MV IE (echo 07/27 with increased focal thickness of anterior MV leaflet with mod MR). Patient was doing fine until 3 days back when she started having fever with N/V, decreased appetite and abdominal pain with constipation. Had labs drawn which showed worsening leucocytosis and blood culture yesterday was positive- hence sent to ED. In the ED she is afebrile, hemodynamically stable. Also complains of back pain which has not improved (states it is worse than her abdominal pain). She is asking for something to drink. Denies any chest pain, shortness of breath. Labs- WBC 22.6, Hb 7.8, Na 131, Cr 1.17, procal pending. CRP 15, ESR 54 from yesterday. Blood clx with GPC in clusters in 4/4 bottles from yesterday, blood clx from today pending. Given iv vancomycin in ED, which we will continue pending blood culture results. Given persistent back pain with bacteremia, will get CT thoracolumbar spine to r/o diskitis. Consult ID and cardiology. Treat constipation with laxative. Continue lantus, SSI for diabetes mellitus. Other chronic medical conditions stable. Rest as per the note above.
[2021-07-28] MEDS ORDERED: OPTIRAY 320 100ml IV ONE (16:09)
--- NOTE | 2021-07-28 16:31 | CT Scan Report ---
CT SCAN OF THE LUMBAR SPINE WITH IV CONTRAST CLINICAL HISTORY: Infection. Clinical concern for discitis. COMPARISON STUDY: Abdominal CT dated 03/16/2021. TECHNIQUE: Following the IV administration of 95 cc of Optiray 320, CT scan of the lumbar spine is pe rformed from the lower thoracic spine to the sacrum. Images are reviewed in the axial, sagittal, and coronal planes. IV contrast was administered without complication. A dose lowering technique was util ized adhering to the principles of ALARA. FINDINGS: The skeletal structures are osteopenic. There is no evidence of fracture or malalignment in volving the lumbar spine. Vertebral body height and alignment are maintained. Small anterior and late ral marginal osteophytes are seen throughout. The transverse and spinous processes appear intact. No lytic or blastic lesion is seen. There are bilateral pars defects at L5. The disc spaces are preserve d. No endplate destruction or erosion is identified to suggest discitis/osteomyelitis as clinically q ueried. There is no CT evidence of large disc herniation or central canal stenosis. The visualized sa ulysses and bony pelvis appear intact. The paraspinous soft tissues are within normal limits. There is a dvanced atherosclerotic calcification and irregularity throughout the abdominal aorta. The abdominal aorta is normal in caliber and patent. There is a thick-walled and peripherally enhancing fluid colle ction centered around the aortic bifurcation seen on axial image #211. This measures 3.2 x 2.5 x 1.8 cm with surrounding inflammation. This approximates the anterior aspect of the L3-L4 disc. Prominent retroperitoneal lymph nodes are likely reactive. Bilateral adrenal nodules are unchanged from 2. There are trace pleural effusions. IMPRESSION: 1. There is a 3.2 x 2.5 x 1.8 cm low-attenuation fluid collection centered around the aortic bifurcat ion with surrounding inflammation. The appearance is typical for abscess. This is of indeterminant et iology, and new from 03/16/2021. 2. The abdominal aorta and iliac vessels are patent. Note that this may place the patient at risk for mycotic aneurysm. An aneurysm was not clearly seen at this time. 3. The fluid collection approximates the anterior aspect of the L3-L4 disc. There is no CT evidence o f discitis/osteomyelitis at this time. 4. No acute bony abnormality is seen involving the lumbar spine. 5. Trace pleural effusions. ACT 112: Negative or not required by law. Electronically signed by: Geovani Dumont M.D. 07/28/2021 4:30 PM
--- NOTE | 2021-07-28 16:38 | CT Scan Report ---
THORACIC SPINE CT WITH CONTRAST CLINICAL HISTORY: Bacteremia. r/o discitis. COMPARISON STUDY: Chest CT March 16, 2021. TECHNIQUE: Helical axial images of the thoracic spine were obtained following intravenous injection o f 95 cc of of Optiray 320 IV. Sagittal and coronal reconstructions were viewed. Automated exposure co ntrol was utilized for the study. A dose lowering technique was utilized adhering to the principles of ALARA. FINDINGS: Vertebral body heights within the thoracic spine are maintained. Disc spaces are preserved. There is no adjacent infiltration. Central canal and neural foramen are suboptimally assessed by CT but no definite abnormalities are identified. Although sensitivity is diminished given CT technique, there is no evidence for discitis/osteomyelitis within the thoracic spine. There are trace bilateral pleural effusions. Cardiomegaly is partially imaged. There are multiple mildly enlarged mediastinal l ymph nodes. These have slightly increased in size since CT of March 16, 2021. Interlobular septal t hickening is noted within the lungs. There are mild ground glass opacities. Lumbar spine CT will be r eported separately. Bilateral adrenal nodules are unchanged from earlier exams. These are benign give n stability. There is moderate plaque within the thoracic aorta. IMPRESSION: 1. No evidence for discitis/osteomyelitis within the thoracic spine although sensitivity diminished g iven CT technique. 2. Mild interstitial pulmonary edema with trace bilateral pleural effusions. 3. Mildly enlarged mediastinal lymph nodes, slightly increased in size since prior exam. These are pr obably reactive. ACT 112: Negative or not required by law. Electronically signed by: Grover Delacruz M.D. 07/28/2021 4:37 PM
--- NOTE | 2021-07-28 17:10 | Cardiology Consultation ---
Date of Consultation July 28, 2021 Assessment & Plan (1) Bacteremia: (2) Infective endocarditis: (3) HTN (hypertension): (4) LBBB (left bundle branch block): Patient is a 61-year-old female with complex history as outlined with recent treatment for mitral valve endocarditis, osteomyelitis with 6 weeks of IV antibiotics for MRSA bacteremia. Patient has had clinical decline in functional capacity for 7 to 10 days and repeat blood cultures now positive once again for gram-positive cocci. Exam reflects grade 3/6 murmur. Transthoracic echocardiogram yesterday without distinct vegetation or mass. EKG with left bundle branch block but consistent with prior studies Recommendations: Treat bacteremia as doing IV antibiotics initiated Patient will require transesophageal echocardiogram and have tentatively scheduled for morning of 07/29/2021 patient to be n.p.o. after midnight. Cardiology will follow History of Present Illness Reason for Consultation: Bacteremia, history of endocarditis Requesting Physician: Dr. Hanks Attending Physician: Dr. Kuo History of Present Illness Patient is a 61-year-old female with complex history which includes 1. Coronary artery disease status post coronary bypass grafting for multivessel disease disease 2013, with left internal mammary artery graft to LAD, saphenous vein graft to the RCA, saphenous vein graft obtuse marginal, saphenous vein graft to diagonal 2. Hypertension with diastolic heart failure 3. Intermittent left bundle branch block 4. Atherosclerotic carotid artery disease 5. Diabetes mellitus type 2 poorly controlled 6. Chronic tobacco use 7. Psycho affective disorder 8. Complex course following ankle fracture March 2021 requiring surgical repair, rehospitalization with sepsis, MRSA bacteremia, osteomyelitis and mitral valve endocarditis. Treated with left BKA, 6 weeks IV antibiotics with vancomycin Patient presents now noting recent hospitalization 1 week ago with generalized weakness and malaise now 3 presenting with confusion and encephalopathy, blood cultures testing positive for gram-positive cocci. Patient notes no distinct fevers or chills but feels cool. Denies headache or visual changes. Does complain of back discomfort. No bleeding difficulties melena medic easier. No dysuria hematuria. Left leg surgical wound has healed. Echocardiogram done outpatient yesterday demonstrates thickening of the anterior mitral valve leaflet though without visualized vegetation and moderate mitral insufficiency observed Allergies Allergy/AdvReac Type Severity Reaction Status Date / Time latex Allergy Mild Rash Verified 07/11/21 13:17 aspirin Allergy Unknown UNKNOWN Verified 07/11/21 13:17 Home Medications Medication Instructions Recorded Confirmed Type atorvastatin 80 mg tablet 80 mg PO HS 03/16/21 07/28/21 History clopidogrel 75 mg tablet 75 mg PO DAILY 03/16/21 07/28/21 History duloxetine 30 mg capsule,delayed 30 mg PO QAM 03/16/21 07/28/21 History release duloxetine 60 mg capsule,delayed 60 mg PO QAM 03/16/21 07/28/21 History release lisinopril 10 mg tablet 10 mg PO DAILY 03/16/21 07/28/21 History metoprolol succinate 50 mg 100 mg PO QAM 03/16/21 07/28/21 History tablet,extended release 24 hr topiramate 50 mg tablet 50 mg PO BID 03/16/21 07/28/21 History magnesium oxide 400 mg (241.3 mg 400 mg PO QAM #30 tab 03/29/21 07/28/21 Rx magnesium) tablet multivitamin with folic acid 400 1 tab PO QAM #30 tab 03/29/21 07/28/21 Rx mcg tablet (Daily-Hardik (with folic acid)) aspirin 81 mg tablet,delayed 81 mg PO DAILY 05/14/21 07/28/21 History release insulin aspart U-100 100 unit/mL 0 unit SUBCUT TID 05/14/21 07/28/21 History (3 mL) subcutaneous pen (Novolog Flexpen U-100 Insulin aspart) insulin glargine 100 unit/mL (3 46 unit SUBCUT QAM 05/14/21 07/28/21 History mL) subcutaneous pen (Basaglar KwikPen U-100 Insulin) metoprolol succinate 50 mg 50 mg PO QPM 05/14/21 07/28/21 History tablet,extended release 24 hr nitroglycerin 0.4 mg sublingual 0.4 mg SUBLINGUAL .PRN/UD PRN 05/14/21 07/28/21 History tablet polyethylene glycol 3350 17 gram 17 g PO DAILY 05/14/21 07/28/21 History oral powder packet (Miralax) cyclobenzaprine 10 mg tablet 10 mg PO TID PRN 07/01/21 07/28/21 History fluticasone propionate 50 2 spray INTRANASAL QAM 07/01/21 07/28/21 History mcg/actuation nasal spray,suspension folic acid 400 mcg tablet 0.4 mg PO DAILY 07/01/21 07/28/21 History pantoprazole 40 mg tablet,delayed 40 mg PO DAILY 07/01/21 07/28/21 History release (Protonix) lidocaine 5 % topical patch 1 patch TOPICAL DAILY #30 ea 07/19/21 07/28/21 Rx (Lidoderm) acetaminophen 325 mg tablet 650 mg PO QID PRN MDD 3g 07/28/21 07/28/21 History levofloxacin 750 mg tablet 750 mg PO DAILY 07/28/21 07/28/21 History magnesium hydroxide 400 mg/5 mL 30 ml PO DAILY PRN 07/28/21 07/28/21 History oral suspension (Milk of Magnesia) promethazine 25 mg/mL injection 25 mg IM Q6H PRN 07/28/21 07/28/21 History solution tramadol 50 mg tablet 50 mg PO Q6H PRN 07/28/21 07/28/21 History Patient History Medical History Anxiety Bone infection of left ankle Carpal tunnel syndrome, left Chronic congestive heart failure with left ventricular diastolic dysfunction Coronary artery disease Diabetes mellitus, type 2 Encounter for pre-operative examination History of left below knee amputation HTN (hypertension) Psychotic disorder Tobacco use disorder Ulnar neuropathy at elbow of left upper extremity Surgical History (Updated 07/28/21 @ 17:30 by Zafar Cota MD) Status post cholecystectomy Status post coronary artery bypass grafting Status post hysterectomy Status post ORIF of fracture of ankle R, 2017 Family History Other Diabetes Heart disease Social History Smoking Status: Former smoker Tobacco Type: Cigarettes packs per day: 1; Years Smoked: 35; Second Hand Exposure: Yes; Hx Alcohol Use: No Hx Substance Use: No Preferred Language: Guyanese Communication Ability: Effective 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: No Beliefs That Will Affect Care: Adventism marital status: Current Living Situation: Jail Feels Safe at Home: Yes Assistive Devices: Wheelchair Review of Systems Review of Systems: All systems reviewed & are unremarkable except as noted in HPI & below Physical Exam Constitutional: + ill appearing (Pale in complexion ) Eyes: PERRL, conjunctivae normal, anicteric sclerae ENMT: external ear and nose normal, oropharynx normal Neck: trachea midline, no thyromegaly Respiratory: Auscultation: lungs clear to auscultation bilaterally and + diminished lung sounds Cardiovascular: Rate/Rhythm: regular rate and regular rhythm Heart Sounds: + murmur (Grade 3/6 systolic murmur loudest anterior apex) Palpation: normal PMI Vessels: no JVD Extremities: no edema Gastrointestinal (Abdomen): Percussion/Palpation: + abdomen tender and abdomen soft Musculoskeletal: Left BKA surgical incision healed well no erythema or drainage Results & Data ([facility]) Vital Signs (Past 12 Hours) Vital Signs Temp Pulse Pulse Resp BP BP Pulse Ox 07/28/21 16:22 95 07/28/21 16:21 135/66 07/28/21 15:48 95 H 17 96 07/28/21 15:30 93 H 17 152/82 H 100 07/28/21 15:00 91 H 17 160/75 H 93 07/28/21 14:01 91 H 14 183/92 H 100 07/28/21 12:28 36.1 C L 88 19 143/83 H 92 Laboratory Results Laboratory Results - last 24 hr 07/28/21 07/28/21 07/28/21 12:58 12:58 12:58 WBC 22.61 H RBC 2.83 L Hgb 7.8 L Hct 24.8 L MCV 87.6 MCH 27.6 MCHC 31.5 L RDW Std Deviation 49.4 H RDW Coeff of Fabio 15.2 H Plt Count 340 MPV 10.9 H Neutrophils % (Manual) 90.5 Lymphocytes % (Manual) 5.2 Monocytes % (Manual) 4.3 Neutrophils # (Manual) 20.46 H Total Absolute Neuts 20.46 H Lymphocytes # (Manual) 1.18 L Total Abs Lymphocytes 1.18 L Monocytes # (Manual) 0.97 H Polychromasia 1+ PT 12.0 INR 1.1 APTT 31.0 PTT Ratio 1.1 Sodium 131 L Potassium 3.6 Chloride 98 Carbon Dioxide 25 Anion Gap 8 BUN 34 H Creatinine 1.17 Est Cr Clr Drug Dosing Not Reportable Est GFR ( Amer) 57.4 Est GFR (Non-Af Amer) 49.6 BUN/Creatinine Ratio 29.1 H Glucose 145 H Lactate Calcium 9.2 Magnesium 1.9 Total Bilirubin 0.9 D AST 28 ALT 21 Alkaline Phosphatase 87 Total Protein 7.8 Albumin 3.7 Globulin 4.1 H Albumin/Globulin Ratio 0.9 Procalcitonin SARS-CoV-2, RNA, NAAT 07/28/21 07/28/21 07/28/21 12:58 14:40 15:40 WBC RBC Hgb Hct MCV MCH MCHC RDW Std Deviation RDW Coeff of Fabio Plt Count MPV Neutrophils % (Manual) Lymphocytes % (Manual) Monocytes % (Manual) Neutrophils # (Manual) Total Absolute Neuts Lymphocytes # (Manual) Total Abs Lymphocytes Monocytes # (Manual) Polychromasia PT INR APTT PTT Ratio Sodium Potassium Chloride Carbon Dioxide Anion Gap BUN Creatinine Est Cr Clr Drug Dosing Est GFR ( Amer) Est GFR (Non-Af Amer) BUN/Creatinine Ratio Glucose Lactate 1.0 Calcium Magnesium Total Bilirubin AST ALT Alkaline Phosphatase Total Protein Albumin Globulin Albumin/Globulin Ratio Procalcitonin 1.08 H SARS-CoV-2, RNA, NAAT NEGATIVE Diagnostic Findings Echocardiogram 07/27/2021 Normal LV chamber size with mild concentric LVH. Mildly reduced LV systolic function. The septal motion is abnormal consistent with intrventricular conduction delay. Akinesis of the inferior lateral wall, otherwise, normal wall motion. Calculated LV ejection Fraction = 45% (bi-plane method of discs). Grade 1 diastolic dysfunction. Increased focal thickness of the anterior mitral valve leaflet. Moderate mitral regurgitation with a posteriorly directed jet. Unchanged in appearance compared to 2D echocardiogram from May 2021. Pulmonary hypertension is present. The PA systolic pressure is > 39 mmHG. Normal IVC size and collapsability with sniff indicates a normal right atrial pressure of 3 mmHg. The estimated pulmonary artery systolic pressure is 50mm Hg. Mild left atrial enlargement.
--- NOTE | 2021-07-28 17:41 | Electrocardiogram Report ---
Test Reason : Blood Pressure : / mmHG Vent. Rate : 088 BPM Atrial Rate : 088 BPM P-R Int : 136 ms QRS Dur : 148 ms QT Int : 432 ms P-R-T Axes : 064 009 102 degrees QTc Int : 522 ms Normal sinus rhythm Possible Left atrial enlargement Left bundle branch block Abnormal ECG When compared with ECG of 15-JUL-2021 09:16, T wave inversion now evident in Lateral leads Confirmed by Allen Dey ([id number]) on 07/28/2021 5:41:38 PM Referred By: Confirmed By:Paolo Dey
[2021-07-28] MEDS ORDERED: NITROGLYCERIN SL 0.4 MG/TAB TAB SL PRN (18:03)
[2021-07-28] MEDS ORDERED: GLUCAGON FOR INJ 1 MG VIAL SQ PRN (18:03)
[2021-07-28] MEDS ORDERED: ALUMINUM/MAGNESIUM SUSP 30 ML UDC PO PRN (18:03)
[2021-07-28] MEDS ORDERED: DEXTROSE 50% 50 ML SYRINGE IV PRN (18:03)
[2021-07-28] MEDS ORDERED: VANCOMYCIN CONSULT ACTIVE PRN ×2 (18:03)
[2021-07-28] MEDS ORDERED: MAGNESIUM HYDROXIDE SUSP 30 ML UDC PO PRN (18:03)
[2021-07-28] MEDS ORDERED: VANCOMYCIN HCL 1,000 MG in SODIUM CHLORIDE 0.9% 500 ML IV SCH (18:03)
[2021-07-28] MEDS ORDERED: GLUCOSE 10 TABS/TUBE PO PRN (18:03)
[2021-07-28] MEDS ORDERED: SODIUM CHLORIDE 0.9% 1000ML 1,000 ML IV SCH (18:03)
[2021-07-28] MEDS ORDERED: CARBOHYDRATES FOR HYPOGLYCEMIA PO PRN (18:03)
[2021-07-28] MEDS ORDERED: GLUCOSE 40% GEL 15 GM TUBE PO PRN (18:03)
[2021-07-28] MEDS: DOCUSATE SODIUM/SENNA 50/8.6MG TAB PO SCH (19:03)
[2021-07-28] MEDS: LIDOCAINE 5% 1 PATCH TD SCH (19:05)
--- NOTE | 2021-07-28 20:18 | Pharmacy Report ---
Pharmacy Vanc AUC Short Note - Date of Service July 28, 2021 - Assessment & Plan Assessment 61 year old with recent treatment for mitral valve endocarditis, osteomyelitis, MRSA bacteremia, had left BKA - treated with 6 weeks of IV vancomycin. Per notes, transthoracic echocardiogram yesterday without distinct vegetation or mass. Cardiology recommends transesophageal echocardiogram in the AM. 07/27 blood cultures with MRSA Plan Vancomycin * AUC/ELI is the preferred PK/PD target for vancomycin * AUC guided dosing is effective and associated with decreased risk of nephrotoxicity compared to traditional trough targets * Patient received loading dose of vancomycin 1500 mg x 1 (22 mg/kg/dose), will start vancomycin 1 gm iv q 18 hrs * This dosing is estimated to achieve a trough of ~18 mcg/ml and target AUC/ELI of ~550 mg/L.hr and may be associated with a 14% risk of nephrotoxicity * Will plan to monitor closely and follow levels as necessary Pharmacy will continue to follow and will adjust dose/frequency as necessary. Thank you.
[2021-07-28] MEDS: ONDANSETRON INJ 2 MG/ML 2 ML VIAL IV PRN (21:12)
[2021-07-28] MEDS: METOPROLOL SUCC 50MG EXT REL TAB PO SCH (21:30)
[2021-07-28] MEDS: TOPIRAMATE 50 MG TAB PO SCH (21:31)
[2021-07-28] MEDS: INSULIN ASPART PER UNIT SC SCH ×2 (21:31→21:35)
[2021-07-28] MEDS: ATORVASTATIN 40 MG TAB PO SCH (21:32)
[2021-07-28] MEDS: INSULIN GLARGINE SOLOSTAR 100 UNITS/ML 3 ML PEN SC SCH (21:36)
[2021-07-29] MEDS ORDERED: VANCOMYCIN HCL 1,000 MG in SODIUM CHLORIDE 0.9% 250 ML IV SCH
--- NOTE | 2021-07-29 00:14 | Anesthesiology Consultation ---
Date of Service July 29, 2021 Assessment & Plan (1) Encounter for pre-operative examination: Chart Review Chart Review: Acceptable Risk for Surgery and Patient NOT seen in Pre Admission Testing Consults Requested none History Height/Weight Height: 5 ft 2 in Weight: 67 kg Allergies Allergy/AdvReac Type Severity Reaction Status Date / Time latex Allergy Mild Rash Verified 07/11/21 13:17 aspirin Allergy Unknown UNKNOWN Verified 07/11/21 13:17 Medications Home Medications Medication Instructions Recorded Confirmed Last Taken atorvastatin 80 mg tablet 80 mg PO HS 03/16/21 07/28/21 Unknown clopidogrel 75 mg tablet 75 mg PO DAILY 03/16/21 07/28/21 07/28/21 08:30 duloxetine 30 mg capsule,delayed 30 mg PO QAM 03/16/21 07/28/21 07/28/21 08:30 release duloxetine 60 mg capsule,delayed 60 mg PO QAM 03/16/21 07/28/21 07/28/21 08:30 release lisinopril 10 mg tablet 10 mg PO DAILY 03/16/21 07/28/21 07/28/21 08:30 metoprolol succinate 50 mg 100 mg PO QAM 03/16/21 07/28/21 07/28/21 08:30 tablet,extended release 24 hr topiramate 50 mg tablet 50 mg PO BID 03/16/21 07/28/21 07/28/21 08:30 magnesium oxide 400 mg (241.3 mg 400 mg PO QAM #30 tab 03/29/21 07/28/21 07/28/21 08:30 magnesium) tablet multivitamin with folic acid 400 1 tab PO QAM #30 tab 03/29/21 07/28/21 Unknown mcg tablet (Daily-Hardik (with folic acid)) aspirin 81 mg tablet,delayed 81 mg PO DAILY 05/14/21 07/28/21 Unknown release insulin aspart U-100 100 unit/mL 0 unit SUBCUT TID 05/14/21 07/28/21 07/28/21 08:30 (3 mL) subcutaneous pen (Novolog Flexpen U-100 Insulin aspart) insulin glargine 100 unit/mL (3 46 unit SUBCUT QAM 05/14/21 07/28/21 07/28/21 08:30 mL) subcutaneous pen (Basaglar KwikPen U-100 Insulin) metoprolol succinate 50 mg 50 mg PO QPM 05/14/21 07/28/21 07/27/21 20:30 tablet,extended release 24 hr nitroglycerin 0.4 mg sublingual 0.4 mg SUBLINGUAL .PRN/UD PRN 05/14/21 07/28/21 Unknown tablet polyethylene glycol 3350 17 gram 17 g PO DAILY 05/14/21 07/28/21 Unknown oral powder packet (Miralax) cyclobenzaprine 10 mg tablet 10 mg PO TID PRN 07/01/21 07/28/21 07/28/21 01:35 fluticasone propionate 50 2 spray INTRANASAL QAM 07/01/21 07/28/21 Unknown mcg/actuation nasal spray,suspension folic acid 400 mcg tablet 0.4 mg PO DAILY 07/01/21 07/28/21 Unknown pantoprazole 40 mg tablet,delayed 40 mg PO DAILY 07/01/21 07/28/21 Unknown release (Protonix) lidocaine 5 % topical patch 1 patch TOPICAL DAILY #30 ea 07/19/21 07/28/21 08:30 (Lidoderm) acetaminophen 325 mg tablet 650 mg PO QID PRN MDD 3g 07/28/21 07/28/21 Unknown levofloxacin 750 mg tablet 750 mg PO DAILY 07/28/21 07/28/21 07/28/21 08:30 magnesium hydroxide 400 mg/5 mL 30 ml PO DAILY PRN 07/28/21 07/28/21 Unknown oral suspension (Milk of Magnesia) promethazine 25 mg/mL injection 25 mg IM Q6H PRN 07/28/21 07/28/21 Unknown solution tramadol 50 mg tablet 50 mg PO Q6H PRN 07/28/21 07/28/21 07/28/21 01:25 Active Medications Generic Name Dose Route Start Last Admin Trade Name Freq PRN Reason Stop Dose Admin Atorvastatin Calcium 80 mg 07/28/21 21:00 07/28/21 21:32 Atorvastatin 40 Mg Tab PO 08/27/21 20:59 80 mg HS SAMANTHA Administration Sodium Chloride 1,000 mls @ 80 mls/hr 07/28/21 18:03 07/28/21 19:07 Nss 1000ml IV 07/29/21 06:32 80 mls/hr .[id number] SAMANTHA Administration Vancomycin HCl 1,000 mg/ 270 mls @ 200 mls/hr 07/29/21 00:00 07/28/21 23:26 Sodium Chloride IV 08/12/21 00:00 200 mls/hr Q18H SAMANTHA Administration Insulin Aspart 0 units 07/28/21 18:03 07/28/21 21:35 Insulin Aspart Per Unit SC 08/27/21 18:02 Not Given ACHS SAMANTHA Insulin Glargine 0 - 22 units 07/28/21 21:00 07/28/21 21:36 Insulin Glargine Solostar 100 Units/Ml 3 Ml Pen SC 08/27/21 20:59 11 units BID SAMANTHA Administration Lidocaine 1 patch 07/28/21 18:03 07/28/21 19:05 Lidocaine 5% 1 Patch TD 08/27/21 18:02 1 patch QAM SAMANTHA Administration Metoprolol Succinate 50 mg 07/28/21 21:00 07/28/21 21:30 Metoprolol Succ 50mg Ext Rel Tab PO 08/27/21 20:59 50 mg QPM SAMANTHA Administration Miscellaneous 1 ea 07/28/21 23:00 07/28/21 23:15 Remove Lidoderm Patch N/A 08/27/21 22:59 1 ea DAILY@2100 SAMANTHA Administration Ondansetron HCl 4 mg 07/28/21 18:03 07/28/21 21:12 Ondansetron Inj 2 Mg/Ml 2 Ml Vial IV 08/27/21 18:02 4 mg Q6H PRN Administration Nausea Senna/Docusate Sodium 1 tab 07/28/21 18:03 07/28/21 19:03 Docusate Sodium/Senna 50/8.6mg Tab PO 08/27/21 18:02 1 tab QAM SAMANTHA Administration Topiramate 50 mg 07/28/21 21:00 07/28/21 21:31 Topiramate 50 Mg Tab PO 08/27/21 20:59 50 mg BID SAMANTHA Administration Past Medical History Medical History Anxiety Bone infection of left ankle Carpal tunnel syndrome, left Chronic congestive heart failure with left ventricular diastolic dysfunction Coronary artery disease Diabetes mellitus, type 2 Encounter for pre-operative examination History of left below knee amputation HTN (hypertension) Psychotic disorder Tobacco use disorder Ulnar neuropathy at elbow of left upper extremity Past Family History Family History Other Diabetes Heart disease Past Surgical History Surgical History Status post cholecystectomy Status post coronary artery bypass grafting Status post hysterectomy Status post ORIF of fracture of ankle R, 2017 Social History Smoking Status: Former smoker tobacco type: cigarettes Do You Dip or Chew Tobacco: No Hx Alcohol Use: No Hx Substance Use: No substance use type: does not use Physical Exam Vital Signs Last Vital Signs Temp 99.3 F 07/29/21 00:00 Pulse 104 H 07/29/21 00:00 Resp 18 07/29/21 00:00 BP 143/76 H 07/29/21 00:00 Pulse Ox 91 07/29/21 00:00 Testing Laboratory Results 07/28/21 12:58 07/28/21 12:58 PT 12.0 Seconds (9.0-12.0) 07/28/21 12:58 INR 1.1 (0.9-1.1) 07/28/21 12:58 APTT 31.0 Seconds (21.0-31.0) 07/28/21 12:58 07/28/21 07/28/21 21:10 18:35 POC Glucose 112 H 133 H Electrocardiogram Date: 07/28/21 Findings: + NSR @ and + LBBB Chest X-Ray Date: 07/28/21 Findings: + NAD
[2021-07-29] MEDS: ACETAMINOPHEN 325 MG TAB PO PRN ×2 (00:55→17:04)
[2021-07-29 05:07] LABS: Appearance Urine Clear (Clear); Bacteria Urine Automated Negative (Negative); Bilirubin Urine Negative (Negative); Blood Urine 2+ (Negative); Color Urine Yellow; Epithelial Cell Urine Auto >30 /lpf (0-5); Glucose Urine UA Negative (Negative); Ketones Urine Negative (Negative); Leukocyte Esterase Urine Negative (Negative); Nitrite Urine Negative (Negative); Protein Urine Negative (Negative); Specific Gravity Urine 1.028 (1.000-1.030); Urobilinogen Urine Negative (Negative); pH Urine 5.5 (4.5-7.5)
[2021-07-29 06:41] LABS: Albumin Globulin Ratio 0.9 (0.9-2); BUN Creatinine Ratio 28.8 (10-20); Calcium 7.9 mg/dl (8.5-10.1); Creatinine Clr Calc Pharmacy 70.5 ml/min; Est GFR (African American) 101.6 ml/min; Est GFR (Non-African American) 87.7 ml/min; Globulin 3.2 gm/dl (2.5-4.0); Total Protein 6.2 gm/dl (6.0-8.3)
[2021-07-29 06:45] LABS: Hematocrit (blood only) 20.9 % (37-47); Hemoglobin 6.5 g/dL (12.0-16.0); Mean Corpuscular Hemoglobin 27.9 pg (25-34); Mean Corpuscular Hgb Conc 31.1 g/dL (32-36); Mean Corpuscular Volume 89.7 fL (80-100); Mean Platelet Volume 10.6 fL (7.4-10.4); Platelet Count 291 K/uL (130-400); RDW Coefficient of Variation 15.4 % (11.5-14.5); RDW Standard Deviation 50.2 fL (36.4-46.3); Red Blood Count 2.33 M/uL (4.2-5.4); White Blood Count 17.33 K/uL (4.8-10.8)
[2021-07-29 06:47] LABS: ALC (manual) 1.06 K/uL (1.2-3.4); ANC (manual) 15.06 K/uL (1.4-6.5); Lymphocytes # (manual) 1.06 K/uL (1.2-3.4); Lymphocytes % (manual) 6.1 %; Monocytes # (manual) 1.21 K/uL (0.11-0.59); Neutrophils # (manual) 15.06 K/uL (1.4-6.5); Neutrophils % (manual) 86.9 %; Polychromasia 1+
[2021-07-29] MEDS ORDERED: POTASSIUM CHLORIDE CRTAB 20 MEQ TABCR PO STA (07:24)
[2021-07-29] MEDS ORDERED: SODIUM CHLORIDE 0.9% 250 ML IV PRN (07:25)
[2021-07-29] MEDS ORDERED: bisacodyL 10 MG SUPP PR ONE (08:40)
[2021-07-29] MEDS ORDERED: CLOPIDOGREL BISULFATE 75 MG TAB PO SCH (09:00)
[2021-07-29] MEDS ORDERED: ASPIRIN 81 MG ECTAB PO SCH (09:00)
--- NOTE | 2021-07-29 09:00 | Discharge Summary ---
Date of Service July 29, 2021 Admission HPI Per Admitting Provider Patient is 61 y/o F with PMH DM II, CAD s/p CABG, HTN, h/o mitral regurgitation, GERD, anxiety, anemia presented to ER for positive blood cultures. 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 Was treated with vancomycin for 6 weeks. Hospitalization 07/11/2021-07/19/2021 for encephalopathy, acute on chronic anemia likely secondary to UGI bleed and had negative blood cultures on 07/11/2021. At [facility] developed chills, fever 102.6F on 07/14, nausea, malaise, decreased appetite. She had outpatient labs on 07/26/2021 with WBC of 14.6 trended up to 21.8 on 07/27/2021. Outpatient blood cultures from 07/27/2021 gram-positive cocci. Had echo on 07/27/2021: EF: 45%, grade 1 diastolic dysfunction, increased focal thickness of the anterior mitral valve leaflet, moderate mitral regurgitation, pulmonary hypertension, mild left atrial enlargement. Patient reports mid and lower back pain. Also complains of lower abdominal discomfort. She reports no BM for days. Feels a little dizzy with attempted ambulation. Has been requiring oxygen supplementation at 2L via nasal cannula since hospitalization in 05/2021. Reports SOB with exertion. Denies chest pain or cough. Feels throat is dry and sore. Denies vomiting, GILL, dizziness, syncope, vision changes, neck pain, orthopnea, palpitations, cough, choking, otalgia, rhinorrhea, paresthesias, extremity weakness, extremity edema, rashes, urinary symptoms. Admission Exam Per Admitting Provider General: appears fatigued, no acute distress, WDWN Head: normocephalic, atraumatic Eyes: PERRL, EOM's intact, conjunctiva non-injected, anicteric ENT: normal inspection external ears, nose, mucous membranes dry Neck: supple, trachea midline, non-tender Lungs: clear, no respiratory distress, no wheezing/rhonchi/rales CV: RRR, + murmur, no pretibial edema Abd: normal BS, soft, + mild tenderness to LLQ, RLQ without rebound or guarding Ext: no cyanosis, no erythema, +left BKA without erythema or tenderness Neuro: A&O x 3, no focal deficits noted, normal affect Skin: warm, dry Principal Diagnosis GPC bacteremia with MV IE with aortic abscess, acute on chronic anemia Discharge Exam General: Lying comfortably in bed, not in acute distress, on NC HEENT: EOMI, NETTE, MMM Chest: Clear breath sounds anteriorly CVS: Regular rate and rhythm, normal heart sounds, no murmur Abdomen: Soft, mild tenderness in lower abdomen, not distended, normal bowel sounds Neuro: Awake, alert, oriented, conversing well, non focal Extremities: No cyanosis, clubbing, no edema. Left BKA stump healed without any infection or drainage Discharge Data Allergies Allergy/AdvReac Type Severity Reaction Status Date / Time latex Allergy Mild Rash Verified 07/11/21 13:17 aspirin Allergy Unknown UNKNOWN Verified 07/11/21 13:17 Consultations 07/28/21 14:13 ED Decision to Admit Stat 07/28/21 15:38 Consult Cardiology Routine 07/28/21 17:33 Consult Anesthesiology Routine 07/28/21 18:03 Consult Infectious Diseases Routine Ordered Studies 07/28/21 15:22 CT lumbar spine w con Routine CT thoracic spine w con Routine Laboratory Results WBC 17.33 K/uL (4.8-10.8) H 07/29/21 05:31 RBC 2.33 M/uL (4.2-5.4) L 07/29/21 05:31 Hgb 6.5 g/dL (12.0-16.0) L* 07/29/21 05:31 Hct 20.9 % (37-47) L* 07/29/21 05:31 MCV 89.7 fL (80-100) 07/29/21 05:31 MCH 27.9 pg (25-34) 07/29/21 05:31 MCHC 31.1 g/dL (32-36) L 07/29/21 05:31 RDW Std Deviation 50.2 fL (36.4-46.3) H 07/29/21 05:31 RDW Coeff of Fabio 15.4 % (11.5-14.5) H 07/29/21 05:31 Plt Count 291 K/uL (130-400) 07/29/21 05:31 MPV 10.6 fL (7.4-10.4) H 07/29/21 05:31 Neutrophils % (Manual) 86.9 % 07/29/21 05:31 Lymphocytes % (Manual) 6.1 % 07/29/21 05:31 Monocytes % (Manual) 7.0 % 07/29/21 05:31 Neutrophils # (Manual) 15.06 K/uL (1.4-6.5) H 07/29/21 05:31 Total Absolute Neuts 15.06 K/uL (1.4-6.5) H 07/29/21 05:31 Lymphocytes # (Manual) 1.06 K/uL (1.2-3.4) L 07/29/21 05:31 Total Abs Lymphocytes 1.06 K/uL (1.2-3.4) L 07/29/21 05:31 Monocytes # (Manual) 1.21 K/uL (0.11-0.59) H 07/29/21 05:31 Polychromasia 1+ 07/29/21 05:31 PT 12.0 Seconds (9.0-12.0) 07/28/21 12:58 INR 1.1 (0.9-1.1) 07/28/21 12:58 APTT 31.0 Seconds (21.0-31.0) 07/28/21 12:58 PTT Ratio 1.1 07/28/21 12:58 Sodium 134 mmol/L (136-145) L 07/29/21 05:31 Potassium 3.0 mmol/L (3.5-5.1) L 07/29/21 05:31 Chloride 106 mmol/L (98-107) 07/29/21 05:31 Carbon Dioxide 21 mmol/L (21-32) 07/29/21 05:31 Anion Gap 7 (3-11) 07/29/21 05:31 BUN 21 mg/dl (6-23) 07/29/21 05:31 Creatinine 0.73 mg/dl (0.6-1.2) D 07/29/21 05:31 Est Cr Clr Drug Dosing 70.5 ml/min 07/29/21 05:31 Est GFR ( Amer) 101.6 ml/min 07/29/21 05:31 Est GFR (Non-Af Amer) 87.7 ml/min 07/29/21 05:31 BUN/Creatinine Ratio 28.8 (10-20) H 07/29/21 05:31 Glucose 111 mg/dl (70-99(Fasting)) H 07/29/21 05:31 POC Glucose 155 mg/dl (70-99) H 07/29/21 04:06 Lactate 1.0 mmol/L (0.4-2.0) 07/28/21 14:40 Calcium 7.9 mg/dl (8.5-10.1) L 07/29/21 05:31 Magnesium 1.9 mg/dl (1.7-2.4) 07/28/21 12:58 Total Bilirubin 1.0 mg/dl (0.2-1.0) 07/29/21 05:31 AST 24 U/L (13-39) 07/29/21 05:31 ALT 18 U/L (7-52) 07/29/21 05:31 Alkaline Phosphatase 79 U/L (34-104) 07/29/21 05:31 Total Protein 6.2 gm/dl (6.0-8.3) D 07/29/21 05:31 Albumin 3.0 gm/dl (3.4-5.0) L 07/29/21 05:31 Globulin 3.2 gm/dl (2.5-4.0) 07/29/21 05:31 Albumin/Globulin Ratio 0.9 (0.9-2) 07/29/21 05:31 Procalcitonin 1.08 ng/ml (0-0.5) H 07/28/21 12:58 Urine Color Yellow 07/29/21 04:30 Urine Appearance Clear (Clear) 07/29/21 04:30 Urine pH 5.5 (4.5-7.5) 07/29/21 04:30 Ur Specific [place] 1.028 (1.000-1.030) 07/29/21 04:30 Urine Protein Negative (Negative) 07/29/21 04:30 Urine Glucose (UA) Negative (Negative) 07/29/21 04:30 Urine Ketones Negative (Negative) 07/29/21 04:30 Urine Blood 2+ (Negative) H 07/29/21 04:30 Urine Nitrite Negative (Negative) 07/29/21 04:30 Urine Bilirubin Negative (Negative) 07/29/21 04:30 Urine Urobilinogen Negative (Negative) 07/29/21 04:30 Ur Leukocyte Esterase Negative (Negative) 07/29/21 04:30 Urine WBC (Auto) 1-5 /hpf (0-5) 07/29/21 04:30 Urine RBC (Auto) 5-10 /hpf (0-4) H 07/29/21 04:30 U Hyaline Cast (Auto) 1-5 /lpf (0-5) 07/29/21 04:30 U Epithel Cells (Auto) >30 /lpf (0-5) H 07/29/21 04:30 Urine Bacteria (Auto) Negative (Negative) 07/29/21 04:30 SARS-CoV-2, RNA, NAAT NEGATIVE (NEGATIVE) 07/28/21 15:40 Blood Type A Positive 07/29/21 07:44 Antibody Screen NEGATIVE 07/29/21 07:44 Crossmatch See Detail 07/29/21 07:44 Impressions Chest X-Ray 07/28/21 13:53 XR chest 1V portable CLINICAL HISTORY: sepsis COMPARISON STUDY: Chest radiograph July 11, 2021. FINDINGS: Lung volumes are normal. Lungs are clear. There is no pneumothorax or pleural effusion. Mild cardiomegaly is unchanged. There are mediastinal wires and mediastinal surgical clips. Mediastinal contours are normal. There is no evidence for pulmonary edema. IMPRESSION: No acute cardiopulmonary findings. Cardiomegaly. ACT 112: Negative or not required by law. Electronically signed by: Grover Delacruz M.D. 07/28/2021 2:[address] 07/28/21 15:22 CT SCAN OF THE LUMBAR SPINE WITH IV CONTRAST CLINICAL HISTORY: Infection. Clinical concern for discitis. COMPARISON STUDY: Abdominal CT dated 03/16/2021. TECHNIQUE: Following the IV administration of 95 cc of Optiray 320, CT scan of the lumbar spine is performed from the lower thoracic spine to the sacrum. Images are reviewed in the axial, sagittal, and coronal planes. IV contrast was administered without complication. A dose lowering technique was utilized adhering to the principles of ALARA. FINDINGS: The skeletal structures are osteopenic. There is no evidence of fracture or malalignment involving the lumbar spine. Vertebral body height and alignment are maintained. Small anterior and lateral marginal osteophytes are seen throughout. The transverse and spinous processes appear intact. No lytic or blastic lesion is seen. There are bilateral pars defects at L5. The disc spaces are preserved. No endplate destruction or erosion is identified to suggest discitis/osteomyelitis as clinically queried. There is no CT evidence of large disc herniation or central canal stenosis. The visualized sacrum and bony pelvis appear intact. The paraspinous soft tissues are within normal limits. There is advanced atherosclerotic calcification and irregularity throughout the abdominal aorta. The abdominal aorta is normal in caliber and patent. There is a thick- walled and peripherally enhancing fluid collection centered around the aortic bifurcation seen on axial image #211. This measures 3.2 x 2.5 x 1.8 cm with surrounding inflammation. This approximates the anterior aspect of the L3-L4 disc. Prominent retroperitoneal lymph nodes are likely reactive. Bilateral adrenal nodules are unchanged from 03/16/2021. There are trace pleural effusions. IMPRESSION: 1. There is a 3.2 x 2.5 x 1.8 cm low-attenuation fluid collection centered around the aortic bifurcation with surrounding inflammation. The appearance is typical for abscess. This is of indeterminant etiology, and new from 03/16/2021. 2. The abdominal aorta and iliac vessels are patent. Note that this may place the patient at risk for mycotic aneurysm. An aneurysm was not clearly seen at this time. 3. The fluid collection approximates the anterior aspect of the L3-L4 disc. There is no CT evidence of discitis/osteomyelitis at this time. 4. No acute bony abnormality is seen involving the lumbar spine. 5. Trace pleural effusions. ACT 112: Negative or not required by law. Electronically signed by: Geovani Dumont M.D. 07/28/2021 4:[address] 07/28/21 15:[address] WITH CONTRAST CLINICAL HISTORY: Bacteremia. r/o discitis. COMPARISON STUDY: Chest CT March 16, 2021. TECHNIQUE: Helical axial images of the thoracic spine were obtained following intravenous injection of 95 cc of of Optiray 320 IV. Sagittal and coronal reconstructions were viewed. Automated exposure control was utilized for the luis dy. A dose lowering technique was utilized adhering to the principles of ALARA. FINDINGS: Vertebral body heights within the thoracic spine are maintained. Disc spaces are preserved. There is no adjacent infiltration. Central canal and neural foramen are suboptimally assessed by CT but no definite abnormalities are identified. Although sensitivity is diminished given CT technique, there is no evidence for discitis/osteomyelitis within the thoracic spine. There are trace bilateral pleural effusions. Cardiomegaly is partially imaged. There are multiple mildly enlarged mediastinal lymph nodes. These have slightly increased in size since CT of March 16, 2021. Interlobular septal thickening is noted within the lungs. There are mild ground glass opacities. Lumbar spine CT will be reported separately. Bilateral adrenal nodules are unchanged from earlier exams. These are benign given stability. There is moderate plaque within the thoracic aorta. IMPRESSION: 1. No evidence for discitis/osteomyelitis within the thoracic spine although sensitivity diminished given CT technique. 2. Mild interstitial pulmonary edema with trace bilateral pleural effusions. 3. Mildly enlarged mediastinal lymph nodes, slightly increased in size since prior exam. These are probably reactive. ACT 112: Negative or not required by law. Electronically signed by: Grover Delacruz M.D. 07/28/2021 4:37 PM Hospital Course (1) Bacteremia: (2) Abscess of aorta: (3) Endocarditis: History severe sepsis, MRSA bacteremia, osteomyelitis, endocarditis in 05/19/21. Echo 05/19/2021 with 1.3 x 0.6 cm mitral valve leaflet lesion. Was treated with vancomycin for 6 weeks. Negative blood cultures 07/11/21 3 days ago fever of 102.6F, chills, malaise, nausea. +leukocytosis. Gram positive cocci on blood cultures 07/27/21 Outpatient echo on 07/27/2021: EF: 45%, grade 1 diastolic dysfunction, increased focal thickness of the anterior mitral valve leaflet, moderate mitral regurgitation, pulmonary hypertension, mild left atrial enlargement In ER patient afebrile, vitals stable. WBC: 22, Lactate: 1.0. Procalcitonin: 1.08 Repeat blood cultures 07/28 with GPC in clusters, MRSA positive Repeat blood clx 07/29 pending Started on iv vancomycin given recent MRSA bacteremia CT thoracic/lumbar spine done to rule out diskitis showed aortic abscess as below 1. There is a 3.2 x 2.5 x 1.8 cm low-attenuation fluid collection centered around the aortic bifurcation with surrounding inflammation. The appearance is typical for abscess. This is of indeterminant etiology, and new from 03/16/2021. 2. The abdominal aorta and iliac vessels are patent. Note that this may place the patient at risk for mycotic aneurysm. An aneurysm was not clearly seen at this time. 3. The fluid collection approximates the anterior aspect of the L3-L4 disc. There is no CT evidence of discitis/osteomyelitis at this time. 4. No acute bony abnormality is seen involving the lumbar spine. 5. Trace pleural effusions. Spoke with IR Dr Barrios and Dr Daily vascular surgery from [facility]. IR recommended [address] scan (CT chest, CT abd/pelvis with and without contrast with arterial and venous phase) however unable to do at our facility. IR would be happy to see the patient once the [address] is done. Spoke with Dr Underwood from medicine service who accepted the patient for transfer and they will do do the scan over there and have IR see her. (4) Back pain: c/o mid/low back pain increased from her baseline CT with no diskitis Continue lidocaine patch, heat pad, tylenol prn but would avoid naroctics as much as possible given recent AMS suspected due to her psychotropics (5) Constipation: no BM yet, she states she will feel better if she has a BM. Will give a suppository. (6) Hypoxia: 2L Oxygen dependent since hospitalization in 05/2021 Will give a dose of lasix given her interstitial edema in imaging as well as her receiving IVF and PRBC transfusion. (7) Diabetes mellitus, type 2: A1c: 5.5 on 07/12/21, 10.3 on 05/15/21 Continue basal bolus insulin (8) Anemia: Acute on chronic anemia Hgb: 7.8->6.5. No active bleeding Recently had EGD and had 2 U PRBC during recent admission. will transfuse 1 U PRBC and hold DAPT for now- give iv lasix x1 with PRBC transfusion She is agreeable to transfusion- consent signed (9) Chronic congestive heart failure with left ventricular diastolic dysfunction: echo on 07/27/2021: EF: 45%, grade 1 diastolic dysfunction, increased focal thickness of the anterior mitral valve leaflet, moderate mitral regurgitation, pulmonary hypertension, mild left atrial enlargement Will give 1 dose of iv lasix today. Lasix prn depending on volume status (10) Coronary artery disease: S/P CABG Continue, metoprolol succinate. Holding DAPT with anemia. During recent admission, patient had EGD done and GI recommended holding DAPT for 5 days and was resumed on 07/20. Recommend follow up cardio to see if one of the DAPT can be dropped. (11) HTN (hypertension): Continue lisinopril, metoprolol succinate (12) Hypokalemia: Repleted. Current Inpatient Medications Acetaminophen (Acetaminophen 325 Mg Tab) 650 mg PO Q4H PRN PRN Reason: Pain or Fever Stop: 08/27/21 18:02 Last Admin: 07/29/21 00:55 Dose: 650 mg Documented by: Al Hydrox/Mg Hydrox/Simethicone (Aluminum/Magnesium Susp 30 Ml Udc) 15 ml PO Q4H PRN PRN Reason: Dyspepsia Stop: 08/27/21 18:02 Aspirin (Aspirin 81 Mg Ectab) 81 mg PO DAILY SAMANTHA Stop: 08/28/21 08:59 Atorvastatin Calcium (Atorvastatin 40 Mg Tab) 80 mg PO HS SAMANTHA Stop: 08/27/21 20:59 Last Admin: 07/28/21 21:32 Dose: 80 mg Documented by: Clopidogrel Bisulfate (Clopidogrel Bisulfate 75 Mg Tab) 75 mg PO DAILY SAMANTHA Stop: 08/28/21 08:59 Dextrose (Dextrose 50% 50 Ml Syringe) 25 - 50 ml IV UD PRN; Protocol PRN Reason: Hypoglycemia Protocol Stop: 08/27/21 18:02 Last Admin: 07/29/21 03:51 Dose: 25 ml Documented by: Duloxetine HCl (Duloxetine Hcl 30 Mg Cap) 30 mg PO QAM SAMANTHA Stop: 08/28/21 08:59 Duloxetine HCl (Duloxetine Hcl 60 Mg Cap) 60 mg PO QAM [facility] Stop: 08/28/21 08:59 Fluticasone Propionate (Fluticasone Propionate Na Spr 16 Gm Btl) 2 sprays IGOR QAM [facility] Stop: 08/28/21 08:59 Folic Acid (Folic Acid 400 Mcg Tab) 400 mcg PO DAILY SAMANTHA Stop: 08/28/21 08:59 Glucagon (Glucagon For Inj 1 Mg Vial) 1 mg SQ UD PRN; Protocol PRN Reason: Hypoglycemia Protocol Stop: 08/27/21 18:02 Glucose (Glucose 10 Tabs/Tube) 4 - 8 tabs PO UD PRN; Protocol PRN Reason: Hypoglycemia Protocol Stop: 08/27/21 18:02 Glucose (Glucose 40% Gel 15 Gm Tube) 15 - 30 gm PO UD PRN; Protocol PRN Reason: Hypoglycemia Protocol Stop: 08/27/21 18:02 Sodium Chloride (Nss) 250 mls @ 15 mls/hr IV .[id number] PRN PRN Reason: For Transfusion Stop: 07/29/21 17:25 Vancomycin HCl 1,000 mg/ (Sodium Chloride) 270 mls @ 200 mls/hr IV Q12H [facility]ANTHA Stop: 08/12/21 11:59 Insulin Aspart (Insulin Aspart Per Unit) 0 units SC ACHS [facility]ANTHA Stop: 08/27/21 18:02 Last Admin: 07/28/21 21:35 Dose: Not Given Documented by: Insulin Glargine (Insulin Glargine Solostar 100 Units/Ml 3 Ml Pen) 0 - 22 units SC BID SAMANTHA Stop: 08/27/21 20:59 Last Admin: 07/28/21 21:36 Dose: 11 units Documented by: Lidocaine (Lidocaine 5% 1 Patch) 1 patch TD QAM [facility] Stop: 08/27/21 18:02 Last Admin: 07/28/21 19:05 Dose: 1 patch Documented by: Lisinopril (Lisinopril 10 Mg Tab) 10 mg PO DAILY [facility] Stop: 08/28/21 08:59 Magnesium Hydroxide (Magnesium Hydroxide Susp 30 Ml Udc) 30 ml PO Q12H PRN PRN Reason: Constipation Stop: 08/27/21 18:02 Magnesium Oxide (Magnesium Oxide 400 Mg Tab) 400 mg PO QAM [facility] Stop: 08/28/21 08:59 Metoprolol Succinate (Metoprolol Succ 50mg Ext Rel Tab) 100 mg PO QAM [facility] Stop: 08/28/21 08:59 Metoprolol Succinate (Metoprolol Succ 50mg Ext Rel Tab) 50 mg PO QPM [facility] Stop: 08/27/21 20:59 Last Admin: 07/28/21 21:30 Dose: 50 mg Documented by: Miscellaneous (Remove Lidoderm Patch) 1 ea N/A DAILY@2100 [facility] Stop: 08/27/21 22:59 Last Admin: 07/28/21 23:15 Dose: 1 ea Documented by: Miscellaneous (Carbohydrates For Hypoglycemia ) 15 - 30 gm PO UD PRN PRN Reason: Hypoglycemia Protocol Stop: 08/27/21 18:02 Last Admin: 07/29/21 03:33 Dose: 15 gm Documented by: Miscellaneous Information (Vancomycin Consult Active) 1 ea N/A UD PRN PRN Reason: Consult Stop: 08/27/21 18:02 Multivitamins (Multivitamin Tab) 1 tab PO QAM [facility] Stop: 08/28/21 08:59 Nitroglycerin (Nitroglycerin Sl 0.4 Mg/Tab Tab) 0.4 mg SL UD PRN PRN Reason: Chest Pain Stop: 08/27/21 18:02 Ondansetron HCl (Ondansetron Inj 2 Mg/Ml 2 Ml Vial) 4 mg IV Q6H PRN PRN Reason: Nausea Stop: 08/27/21 18:02 Last Admin: 07/28/21 21:12 Dose: 4 mg Documented by: Pantoprazole Sodium (Pantoprazole 40 Mg Tab) 40 mg PO DAILY [facility] Stop: 08/28/21 08:59 Polyethylene Glycol (Polyethylene (Miralax) 17 Gm Pack) 17 gm PO DAILY [facility] Stop: 08/28/21 08:59 Senna/Docusate Sodium (Docusate Sodium/Senna 50/8.6mg Tab) 1 tab PO QAM [facility] Stop: 08/27/21 18:02 Last Admin: 07/28/21 19:03 Dose: 1 tab Documented by: Topiramate (Topiramate 50 Mg Tab) 50 mg PO BID [facility] Stop: 08/27/21 20:59 Last Admin: 07/28/21 21:31 Dose: 50 mg Documented by: Tramadol HCl (Tramadol Hcl 50 Mg Tablet) 50 mg PO Q6H PRN PRN Reason: Moderate Pain Stop: 08/27/21 18:02 Total Time Total Time Spent Total Time Spent (In Minutes): 50 Discharge Plan Discharge Items Patient Disposition: Transfer Acute [facility] Reason For Visit: BACTERIMIA Discharge Diagnosis: GPC bacteremia, MV IE, aortic abscess, acute on chronic anemia Activity: Per Instructions section Non-emergency contact: Primary Care Provider Call non-emergency contact if: you have any medication questions, your symptoms worsen, your pain is not controlled and you have a fever Follow-up/Referrals: [facility] [Primary Care Provider] - Diet: Heart Healthy Addtl Attending Provider Instructions: You are being transferred to [place] for further work up of your aortic abscess Continue iv vancomycin for the MRSA bacteremia. Recommend holding aspirin and plavix given the hemoglobin drop. Your medications here inhouse are as below and recommend continuing the same at the new hospital upon admission Current Inpatient Medications Acetaminophen (Acetaminophen 325 Mg Tab) 650 mg PO Q4H PRN PRN Reason: Pain or Fever Stop: 08/27/21 18:02 Last Admin: 07/29/21 00:55 Dose: 650 mg Documented by: Al Hydrox/Mg Hydrox/Simethicone (Aluminum/Magnesium Susp 30 Ml Udc) 15 ml PO Q4H PRN PRN Reason: Dyspepsia Stop: 08/27/21 18:02 Aspirin (Aspirin 81 Mg Ectab) 81 mg PO DAILY [facility]ANTHA Stop: 08/28/21 08:59 Atorvastatin Calcium (Atorvastatin 40 Mg Tab) 80 mg PO HS [facility] Stop: 08/27/21 20:59 Last Admin: 07/28/21 21:32 Dose: 80 mg Documented by: Clopidogrel Bisulfate (Clopidogrel Bisulfate 75 Mg Tab) 75 mg PO DAILY [facility] Stop: 08/28/21 08:59 Dextrose (Dextrose 50% 50 Ml Syringe) 25 - 50 ml IV UD PRN; Protocol PRN Reason: Hypoglycemia Protocol Stop: 08/27/21 18:02 Last Admin: 07/29/21 03:51 Dose: 25 ml Documented by: Duloxetine HCl (Duloxetine Hcl 30 Mg Cap) 30 mg PO QAM [facility] Stop: 08/28/21 08:59 Duloxetine HCl (Duloxetine Hcl 60 Mg Cap) 60 mg PO QAM [facility] Stop: 08/28/21 08:59 Fluticasone Propionate (Fluticasone Propionate Na Spr 16 Gm Btl) 2 sprays IGOR QAM [facility] Stop: 08/28/21 08:59 Folic Acid (Folic Acid 400 Mcg Tab) 400 mcg PO DAILY [facility] Stop: 08/28/21 08:59 Glucagon (Glucagon For Inj 1 Mg Vial) 1 mg SQ UD PRN; Protocol PRN Reason: Hypoglycemia Protocol Stop: 08/27/21 18:02 Glucose (Glucose 10 Tabs/Tube) 4 - 8 tabs PO UD PRN; Protocol PRN Reason: Hypoglycemia Protocol Stop: 08/27/21 18:02 Glucose (Glucose 40% Gel 15 Gm Tube) 15 - 30 gm PO UD PRN; Protocol PRN Reason: Hypoglycemia Protocol Stop: 08/27/21 18:02 Sodium Chloride (Nss) 250 mls @ 15 mls/hr IV .[id number] PRN PRN Reason: For Transfusion Stop: 07/29/21 17:25 Vancomycin HCl 1,000 mg/ (Sodium Chloride) 270 mls @ 200 mls/hr IV Q12H [facility] Stop: 08/12/21 11:59 Insulin Aspart (Insulin Aspart Per Unit) 0 units SC ACHS [facility] Stop: 08/27/21 18:02 Last Admin: 07/28/21 21:35 Dose: Not Given Documented by: Insulin Glargine (Insulin Glargine Solostar 100 Units/Ml 3 Ml Pen) 0 - 22 units SC BID [facility] Stop: 08/27/21 20:59 Last Admin: 07/28/21 21:36 Dose: 11 units Documented by: Lidocaine ([facility]oc[facility]% 1 Patch) [facility] [place] Stop: 08/27/21 18:02 Last Admin: 07/28/21 19:05 Dose: 1 patch Documented by: Lisinopril (Lisinopril 10 Mg Tab) 10 mg PO DAILY [facility] Stop: 08/28/21 08:59 Magnesium Hydroxide (Magnesium Hydroxide Susp 30 Ml Udc) 30 ml PO Q12H PRN PRN Reason: Constipation Stop: 08/27/21 18:02 Magnesium Oxide (Magnesium Oxide 400 Mg Tab) [facility] [place] Stop: 08/28/21 08:59 Metoprolol Succinate (Metoprolol Succ 50mg Ext Rel Tab) [facility] [place] Stop: 08/28/21 08:59 Metoprolol Succinate (Metoprolol Succ 50mg Ext Rel Tab) 50 mg PO QPM [facility] Stop: 08/27/21 20:59 Last Admin: 07/28/21 21:30 Dose: 50 mg Documented by: Miscellaneous (Remove Lidoderm Patch) 1 ea N/A DAILY@2100 [facility] Stop: 08/27/21 22:59 Last Admin: 07/28/21 23:15 Dose: 1 ea Documented by: Miscellaneous (Carbohydrates For Hypoglycemia ) 15 - 30 gm PO UD PRN PRN Reason: Hypoglycemia Protocol Stop: 08/27/21 18:02 Last Admin: 07/29/21 03:33 Dose: 15 gm Documented by: Miscellaneous Information (Vancomycin Consult Active) 1 ea N/A UD PRN PRN Reason: Consult Stop: 08/27/21 18:02 Multivitamins (Multivitamin Tab) [facility] [place] Stop: 08/28/21 08:59 Nitroglycerin (Nitroglycerin Sl 0.4 Mg/Tab Tab) 0.4 mg SL UD PRN PRN Reason: Chest Pain Stop: 08/27/21 18:02 Ondansetron HCl (Ondansetron Inj 2 Mg/Ml 2 Ml Vial) 4 mg IV Q6H PRN PRN Reason: Nausea Stop: 08/27/21 18:02 Last Admin: 07/28/21 21:12 Dose: 4 mg Documented by: Pantoprazole Sodium (Pantoprazole 40 Mg Tab) 40 mg PO DAILY [facility] Stop: 08/28/21 08:59 Polyethylene Glycol (Polyethylene (Miralax) 17 Gm Pack) 17 gm PO DAILY [facility] Stop: 08/28/21 08:59 Senna/Docusate Sodium (Docusate Sodium/Senna 50/8.6mg Tab) 1 tab PO QAM [facility] Stop: 08/27/21 18:02 Last Admin: 07/28/21 19:03 Dose: 1 tab Documented by: Topiramate (Topiramate 50 Mg Tab) 50 mg PO BID [facility] Stop: 08/27/21 20:59 Last Admin: 07/28/21 21:31 Dose: 50 mg Documented by: Tramadol HCl (Tramadol Hcl 50 Mg Tablet) 50 mg PO Q6H PRN PRN Reason: Moderate Pain Stop: 08/27/21 18:02 Pending Studies at Discharge: Yes Studies:: final blood culture results Stand-Alone Forms: On License Of [facility] Skilled Items Patient informed of condition?: Yes DNR: No Discharge Level of Care: Other Communicable Disease: No Discharge Prognosis: Stable Lines: Peripheral IV Urinary Catheter: No Medications and DC Order Prescriptions: Continued atorvastatin 80 mg tablet 80 mg PO HS RF: 0 metoprolol succinate 50 mg tablet extended release 24 hr 100 mg PO QAM RF: 0 clopidogrel 75 mg tablet 75 mg PO DAILY RF: 0 lisinopril 10 mg tablet 10 mg PO DAILY RF: 0 topiramate 50 mg tablet 50 mg PO BID RF: 0 duloxetine 30 mg capsule,delayed release(DR/EC) 30 mg PO QAM RF: 0 duloxetine 60 mg capsule,delayed release(DR/EC) 60 mg PO QAM RF: 0 magnesium oxide 400 mg (241.3 mg magnesium) Tablet 400 mg PO QAM Qty: 30 RF: 0 multivitamin with folic acid [Daily-Hardik (with folic acid)] 400 mcg Tablet 1 tab PO QAM Qty: 30 RF: 0 aspirin 81 mg Tablet,Delayed Release (Dr/Ec) 81 mg PO DAILY RF: 0 insulin glargine [Basaglar KwikPen U-100 Insulin] 100 unit/mL (3 mL) insulin pen 46 unit SUBCUT QAM RF: 0 metoprolol succinate 50 mg tablet extended release 24 hr 50 mg PO QPM RF: 0 polyethylene glycol 3350 [Miralax] 17 gram powder in packet 17 g PO DAILY RF: 0 nitroglycerin 0.4 mg tablet, sublingual 0.4 mg sublingual .PRN/UD PRN (Reason: Chest Pain) RF: 0 insulin aspart U-100 [Novolog Flexpen U-100 Insulin] 100 unit/mL (3 mL) Insulin Pen 0 unit SUBCUT TID RF: 0 magnesium hydroxide [Milk of Magnesia] 400 mg/5 mL suspension 30 ml PO DAILY PRN (Reason: Constipation) RF: 0 promethazine 25 mg/mL Solution 25 mg IM Q6H PRN (Reason: Nausea) RF: 0 tramadol 50 mg Tablet 50 mg PO Q6H PRN (Reason: Pain) RF: 0 acetaminophen 325 mg Tablet 650 mg PO QID MDD 3g PRN (Reason: Fever) RF: 0 cyclobenzaprine 10 mg Tablet 10 mg PO TID PRN (Reason: back spasms) RF: 0 folic acid 400 mcg Tablet 0.4 mg PO DAILY RF: 0 pantoprazole [Protonix] 40 mg Tablet,Delayed Release (Dr/Ec) 40 mg PO DAILY RF: 0 fluticasone propionate 50 mcg/actuation [place],Suspension 2 spray INTRANASAL QAM RF: 0 lidocaine [Lidoderm] 5 % adhesive patch,medicated 1 patch topical DAILY Qty: 30 RF: 0 Discontinued levofloxacin 750 mg Tablet 750 mg PO DAILY RF: 0 Discharge Orders: Discharge Order (Routine); Ordered 07/29/21 Ordered By: Nicanor Smith Admission Data Admit Date/Time: 07/28/21 14:35 Attending Provider: Nicanor Smith Admit Provider: Nicanor Smith Primary Care Provider: [place] Other Providers: Zafar Cota ; Nicanor Smith ; Marie Dudley ; Rosaline Ahn ; Amy High ; Kelly Anderson ; Haile Rodriguez ; Gabriel Ashraf ; Frantz Lund ; Fred Dominguez ; Mimi Dominguez ; Rolando Eubanks ; Татьяна Moore ; Arnoldo Castillo ; Keon Still ; Bhupinder Boyd ; Krzysztof Elizabeth ; Sandra Howard ; Bird Cam ; Anu Mace ; Kinga Cam ; Germán Salvador ; Mary Ellen Reina ; Sebastián Tena. ; Madison Yepez ; Felecia Celestin ; Mary Ellen Rodriguez. ; Gissel Clements ; Gómez Price ; Nicole Pabon ; Zoraida Pruett A ; Melanie Cavazos ; Renetta Brown ; Douglas Brown V ; Anthony Myles ; Rosaline Harper ; Arnold Echavarria ; Milagro Briggs ; Erma Rojas ; Douglas Piedra ; Minor Howard ; Johny Clements ; Prema Yancey ; Claribel Fox ; Douglas Vargas ; Melanie Goode ; Casa Jasmine ; Christiano Elizabeth ; Ana Chavez A. ; Mark Chapa ; Cristina Matthews ; Ricci Stearns ; Jaquan Wood ; Mark Ruvalcaba ; Haile Cosme Jr ; Rosetta Shaw ; Belem Knight. ; Marielle Padilla ; Gómez Pagan ; Kelly Leigh ; Fred Dinh. ; Malik Quinones I. ; Josseline Prakash S. ; Jose Benjamin ; Jessee Vera ; Denny Yo I. ; Jovi Renteria II ; TitaJessenia painting ; Bird Meek ; Gama Kirkpatrick
[2021-07-29] MEDS: lisinopril 10 MG TAB PO SCH (09:14)
[2021-07-29] MEDS: MAGNESIUM OXIDE 400 MG TAB PO SCH (09:14)
[2021-07-29] MEDS: MULTIVITAMIN TAB PO SCH (09:15)
[2021-07-29] MEDS: TOPIRAMATE 50 MG TAB PO SCH ×2 (09:15→19:41)
[2021-07-29] MEDS: POLYETHYLENE (MIRALAX) 17 GM PACK PO SCH (09:15)
[2021-07-29] MEDS: PANTOprazole 40 MG TAB PO SCH (09:15)
[2021-07-29] MEDS: DULoxetine HCL 30 MG CAP PO SCH (09:15)
[2021-07-29] MEDS: METOPROLOL SUCC 50MG EXT REL TAB PO SCH ×2 (09:16→19:42)
[2021-07-29] MEDS: LIDOCAINE 5% 1 PATCH TD SCH (09:16)
[2021-07-29] MEDS: FOLIC ACID 400 MCG TAB PO SCH (09:17)
[2021-07-29] MEDS: DULoxetine HCL 60 MG CAP PO SCH (09:17)
[2021-07-29] MEDS: FLUTICASONE PROPIONATE NA SPR 16 GM BTL NAE SCH (09:17)
[2021-07-29] MEDS: DOCUSATE SODIUM/SENNA 50/8.6MG TAB PO SCH (09:17)
[2021-07-29] MEDS ORDERED: FUROSEMIDE 40 MG/4 ML VIAL IV ONE (09:35)
[2021-07-29] MEDS: POTASSIUM CHLORIDE / WTR 10 MEQ/100 ML PLCT IV SCH ×2 (09:50→10:59)
[2021-07-29] MEDS: INSULIN ASPART PER UNIT SC SCH ×4 (09:55→19:45)
[2021-07-29] MEDS: INSULIN GLARGINE SOLOSTAR 100 UNITS/ML 3 ML PEN SC SCH ×2 (09:56→19:44)
[2021-07-29] MEDS: ONDANSETRON INJ 2 MG/ML 2 ML VIAL IV PRN (11:56)
[2021-07-29] MEDS: VANCOMYCIN HCL 1,000 MG in SODIUM CHLORIDE 0.9% 250 ML IV SCH (11:58)
[2021-07-29] MEDS: traMADol HCL 50 MG TABLET PO PRN (13:26)
[2021-07-29 14:17] LABS: Hematocrit (blood only) 26.6 % (37-47); Hemoglobin 8.7 g/dL (12.0-16.0)
[2021-07-29] MEDS ORDERED: PROMETHAZINE HCL 25 MG/20 ML UDP PO PRN (15:28)
--- NOTE | 2021-07-29 15:48 | Communication Note ---
Date of Service: July 29, 2021 Note procedure transesophageal echocardiogram was canceled by primary service this morning due to anticipated transfer to tertiary facility
[2021-07-29] MEDS: PROMETHAZINE HCL 25 MG TAB PO PRN ×2 (15:57→21:37)
[2021-07-29] MEDS: ATORVASTATIN 40 MG TAB PO SCH (19:42)
[2021-07-30] MEDS: VANCOMYCIN HCL 1,000 MG in SODIUM CHLORIDE 0.9% 250 ML IV SCH ×2 (00:10→11:48)
[2021-07-30] MEDS: traMADol HCL 50 MG TABLET PO PRN ×2 (00:12→10:12)
[2021-07-30] MEDS ORDERED: ZOLPIDEM TARTRATE 5 MG TAB PO STA (01:30)
[2021-07-30] MEDS: ACETAMINOPHEN 325 MG TAB PO PRN ×2 (01:43→12:31)
[2021-07-30 06:45] LABS: Creatinine Clr Calc Pharmacy 66.8 ml/min; Est GFR (African American) 95.2 ml/min; Est GFR (Non-African American) 82.2 ml/min
[2021-07-30] MEDS: LIDOCAINE 5% 1 PATCH TD SCH (08:59)
[2021-07-30] MEDS: POLYETHYLENE (MIRALAX) 17 GM PACK PO SCH (09:00)
[2021-07-30] MEDS: DULoxetine HCL 60 MG CAP PO SCH (09:10)
[2021-07-30] MEDS: DOCUSATE SODIUM/SENNA 50/8.6MG TAB PO SCH (09:10)
[2021-07-30] MEDS: MULTIVITAMIN TAB PO SCH (09:10)
[2021-07-30] MEDS: METOPROLOL SUCC 50MG EXT REL TAB PO SCH (09:10)
[2021-07-30] MEDS: DULoxetine HCL 30 MG CAP PO SCH (09:10)
[2021-07-30] MEDS: FOLIC ACID 400 MCG TAB PO SCH (09:10)
[2021-07-30] MEDS: PANTOprazole 40 MG TAB PO SCH (09:11)
[2021-07-30] MEDS: MAGNESIUM OXIDE 400 MG TAB PO SCH (09:11)
[2021-07-30] MEDS: lisinopril 10 MG TAB PO SCH (09:12)
[2021-07-30] MEDS: TOPIRAMATE 50 MG TAB PO SCH (09:12)
[2021-07-30] MEDS: FLUTICASONE PROPIONATE NA SPR 16 GM BTL NAE SCH (09:58)
[2021-07-30] MEDS: INSULIN GLARGINE SOLOSTAR 100 UNITS/ML 3 ML PEN SC SCH (10:07)
[2021-07-30] MEDS: INSULIN ASPART PER UNIT SC SCH ×2 (10:11→11:45)
[2021-07-30] MEDS: ONDANSETRON INJ 2 MG/ML 2 ML VIAL IV PRN (10:13)
[2021-07-30] MEDS ORDERED: VANCOMYCIN TROUGH ONE (11:30)
--- NOTE | 2021-07-30 12:42 | Pharmacy Report ---
Pharmacy Vanc AUC Short Note - Date of Service July 30, 2021 - Assessment & Plan Assessment 61 year old with recent treatment for mitral valve endocarditis, osteomyelitis, MRSA bacteremia, had left BKA - treated with 6 weeks of IV vancomycin. Now with aortic abscess requiring possible IR intervention. Patient pending transfer to [facility]. 07/27 blood cultures with MRSA, Repeat blood cultures (+) MRSA (07/28, 07/29). Renal function back to baseline. Day #3 of antimicrobial therapy. Plan Vancomycin * AUC/ELI is the preferred PK/PD target for vancomycin. AUC guided dosing is effective and associated with decreased risk of nephrotoxicity compared to traditional trough targets * Trough level today, 18.7mcg/mL (~11hr level), therapeutic. However, correlates with an AUC/ELI >600mg/L.hr and increased risk of toxicity upon further accumulation. * Change to 1500 mg IV every 24 hours tomorrow AM - regimen predicted to achieve a target AUC/ELI 400-600mg/L.hr. * Will order a repeat level ~48hr or sooner if clinically indicated. Pharmacy will continue to follow and will adjust dose/frequency as necessary. Thank you.
[2021-07-31] MEDS ORDERED: VANCOMYCIN HCL 1,500 MG in SODIUM CHLORIDE 0.9% 500 ML IV SCH (04:00)
== END 2021-07-30 13:56 | disposition short-term general hospital (02) | DRG 289 ==
LOC: ED 12:25 → 1E 14:35

== ENCOUNTER 2021-08-23 15:06 | Inpatient (IN) ==
[2021-08-23] MEDS ORDERED: SODIUM CHLORIDE 0.9% 250 ML IV PRN (15:36)
--- NOTE | 2021-08-23 16:03 | XRay Report ---
XR chest 1V portable HISTORY: Shortness of breath. COMPARISON: Chest 07/28/2021. FINDINGS: No pneumothorax. The cardiac silhouette is mildly enlarged. There are poststernotomy change s. There is perihilar interstitial/vascular thickening consistent with mild pulmonary edema. There ar e small bilateral pleural effusions. Hazy bibasilar densities represent atelectasis or pleural effusi ons. The right PICC terminates in the distal SVC. IMPRESSION: 1. Cardiomegaly with mild interstitial pulmonary edema and small bilateral pleural effusions. 2. The right PICC terminates in the distal SVC. ACT 112: Negative or not required by law. Electronically signed by: Fred Blanc M.D. 08/23/2021 4:01 PM
[2021-08-23 16:21] LABS: INR 1.2 (0.9-1.1); Partial Thromboplastin Ratio 1.1; Partial Thromboplastin Time 29.1 Seconds (21.0-31.0)
[2021-08-23 16:28] LABS: Hematocrit (blood only) 23.3 % (34.1-44.9); Hemoglobin 6.7 g/dl (12.0-16.0); Mean Corpuscular Hemoglobin 27.7 pg (25.0-34.0); Mean Corpuscular Hgb Conc 28.8 g/dL (32.0-36.0); Mean Corpuscular Volume 96.3 fL (80.0-100.0); Nucleated RBC # (auto) 0.09 K/uL (0-0); Platelet Count 331 K/uL (130-400); RDW Coefficient of Variation 17.2 % (11.5-14.5); RDW Standard Deviation 59.7 fL (36.4-46.3); Red Blood Count 2.42 M/uL (3.93-5.22); White Blood Count 9.15 K/ul (4.8-10.8)
--- NOTE | 2021-08-23 16:35 | Emergency Department Note ---
Impression & Plan Anemia, Hypoxia ED Provider Note NAME: MARSHA WILDE AGE: 61 SEX: F : 1960 ARRIVES VIA: Walk-In INFORMANT: [Patient] ED PROVIDER(S): [Geovani Florez MD] CHIEF COMPLAINT: Shortness of breath HISTORY OF PRESENT ILLNESS: The patient is a 61-year-old female presents the ER with some shortness of breath. She was told by her doctors office to report here for a blood transfusion. Her hemoglobin was 6.5. Her last transfusion was less than a month ago. The patient states that last evening, she awoke and was short of breath. Her O2 saturation was in the 60s to 70s. It improved with some deeper breathing. She developed some chest pressure that seem to dissipate after 2 sublingual nitroglycerin. The patient is currently on IV antibiotics. She is receiving antibiotics through a PICC line in the right arm. She has another month or so left. The patient states that they are not sure why she continues to need transfusions. They have never found a bleeding source in the GI tract. She currently denies any fever. She does not currently have any chest pain or shortness of breath although, she is now on 2 L of oxygen as per our nursing staff. The patient states that when she was in the hospital a month, she was requiring oxygen. When she was discharged though, she was not given oxygen to use at home. REVIEW OF SYSTEMS: See HPI for pertinent positives and negatives. A total of ten systems were reviewed and were otherwise negative. PMHx/PSHx: See Below SOCIAL HISTORY: See Below. PHYSICAL EXAM: GENERAL: Patient is in no acute distress. HEENT: No acute trauma, normocephalic atraumatic, mucous membranes moist, no nasal congestion, no scleral icterus. NECK: No stridor, no adenopathy, no meningismus, trachea is midline. LUNGS: Clear to auscultation bilaterally, no wheeze, no rhonchi, breath sounds equal. HEART: 2/6 systolic murmur, regular rate and rhythm. ABDOMEN: Soft, nontender, bowel sounds positive, no peritonitis. EXTREMITIES: No cyanosis or edema. There is a left below the knee amputation. PICC line in the right bicep. NEUROLOGIC: Oriented x 3, no acute motor or sensory deficits, no focal weakness. SKIN: No rash, no jaundice, no diaphoresis. Pale. DIFFERENTIAL DIAGNOSIS: Reactive airway disease, pneumonia, COVID-19, anemia, pneumothorax, COPD, CHF, infection, cardiac ischemia, pulmonary embolism, bronchitis, musculoskeletal, gastrointestinal, as well as other pathologies. EMERGENCY DEPARTMENT COURSE/PROCEDURES: ECG: Indication was shortness of breath and chest pressure. The ECG shows a normal sinus rhythm with a rate of 67. There is a left bundle branch block present. There is no ST elevation, no PVCs. The QTc is 524. Compared to an ECG from 28 July 2021, the rate has decreased. Continuous Cardiac Monitoring: An order was placed for continuous cardiac monitoring. The monitor shows a rate of 66 with normal sinus rhythm. Critical Care Note: I have personally spent 41 minutes of critical care time in the direct management of this patient. This includes bedside care, interpret ation of diagnostic studies, and testing, discussion with consultants, patient, and family members, and other required patient management activities. This 41 minutes is in excess of all separately billable procedures. MEDICAL DECISION MAKING: There is no leukocytosis. The patient is anemic with a hemoglobin of 6.7. There is a normal platelet count. INR slightly elevated at 1.2. No renal failure or significant electrolyte abnormality in need of emergent correction. Some very subtle liver enzyme elevations were seen. ECG shows a normal sinus rhythm, no obvious ischemia. Cardiac enzyme testing x1 is not consistent with acute cardiac injury. COVID test returned negative. Chest x-ray did not show pneumonia, some pulmonary congestion was seen. On exam, the patient appeared pale. She was hypoxic without O2 supplementation. The patient did consent to receiving blood. The consent for a blood transfusion was signed. 2 units of packed red blood cells were ordered to be transfused. Blood was to be started in the ED. Given the need for more than 1 unit of blood, given the hypoxia, I do think the patient requires a hospital stay. She has been through a lot lately and I do not think will do well if left to go home. I spoke with the patient and case management. The on-call hospitalist was consulted. Past Med/Surg History Medical History Abscess of aorta Anxiety Carotid stenosis according to records from 2019 CEA was recommended but patient declined. no objective quantification available Carpal tunnel syndrome, left Chronic congestive heart failure with left ventricular diastolic dysfunction Coronary artery disease Diabetes mellitus, type 2 Encounter for pre-operative examination Endocarditis History of left below knee amputation HTN (hypertension) LBBB (left bundle branch block) MRSA bacteremia Osteomyelitis Psychotic disorder Tobacco use disorder Ulnar neuropathy at elbow of left upper extremity Surgical History Status post cholecystectomy Status post coronary artery bypass grafting Status post hysterectomy Status post ORIF of fracture of ankle R, 2017 Family History Other Diabetes Heart disease Social History Smoking Status: Current every day smoker Tobacco Type: Cigarettes packs per day: 1; Years Smoked: 35; Cigarettes Per Day: 10; Second Hand Exposure: No; Tobacco Cessation Education Requested by Patient: No Hx Alcohol Use: No Hx Substance Use: No Preferred Language: Frisian Communication Ability: Effective Market Development Manager Required: No Beliefs That Will Affect Care: None marital status: Current Living Situation: Other Current Living Situation Comment: Friend Other Information That Helps Us Care for You: No Feels Safe at Home: Yes Safety Concerns: Feels Safe At This Time Assistive Devices: Denture - Upper and Glasses Allergies Allergies Allergy/AdvReac Type Severity Reaction Status Date / Time latex Allergy Intermediate Rash Verified 08/23/21 16:31 aspirin Allergy Unknown UNKNOWN Verified 08/23/21 16:31 Home Meds Home Medications Medication Instructions Recorded Confirmed atorvastatin 80 mg tablet 80 mg PO HS 03/16/21 08/23/21 clopidogrel 75 mg tablet 75 mg PO DAILY 03/16/21 08/23/21 duloxetine 30 mg capsule,delayed 30 mg PO QAM 03/16/21 08/23/21 release duloxetine 60 mg capsule,delayed 60 mg PO QAM 03/16/21 08/23/21 release lisinopril 10 mg tablet 10 mg PO DAILY 03/16/21 08/23/21 metoprolol succinate 50 mg See Rx Instructions .ROUTE .COMPLEX 03/16/21 08/23/21 tablet,extended release 24 hr topiramate 50 mg tablet 50 mg PO BID 03/16/21 08/23/21 aspirin 81 mg tablet,delayed 81 mg PO DAILY 05/14/21 08/23/21 release insulin aspart U-100 100 unit/mL 0 unit SUBCUT TID MDD 72 UNITS/DAY. 05/14/21 08/23/21 (3 mL) subcutaneous pen (Novolog Flexpen U-100 Insulin aspart) nitroglycerin 0.4 mg sublingual 0.4 mg SUBLINGUAL .PRN/UD PRN 05/14/21 08/23/21 tablet tramadol 50 mg tablet 50 mg PO Q6H PRN 07/28/21 08/23/21 acetaminophen 500 mg tablet 500 mg PO Q6H PRN 08/23/21 08/23/21 (Tylenol Extra Strength) conjugated estrogens 0.625 mg/gram 0.625 mg VAGINAL HS 08/23/21 08/23/21 vaginal cream daptomycin 500 mg intravenous 500 mg IV DAILY 08/23/21 08/23/21 solution donepezil 5 mg tablet 5 mg PO HS 08/23/21 08/23/21 furosemide 20 mg tablet (Lasix) 60 mg PO DAILY 08/23/21 08/23/21 gabapentin 300 mg capsule See Rx Instructions .ROUTE .COMPLEX 08/23/21 08/23/21 insulin glargine 100 unit/mL (3 35 unit SUBCUT QAM 08/23/21 08/23/21 mL) subcutaneous pen (Basaglar KwikPen U-100 Insulin) lorazepam 0.5 mg tablet 0.5 mg PO Q8H PRN MDD 3 TABS/DAILY 08/23/21 08/23/21 omeprazole 20 mg capsule,delayed 20 mg PO DAILY 08/23/21 08/23/21 release quetiapine 100 mg tablet (Seroquel) 100 mg PO HS 08/23/21 08/23/21 Previous Rx's Medication Instructions Recorded multivitamin with folic acid 400 1 tab PO QAM #30 tab 03/29/21 mcg tablet (Daily-Hardik (with folic acid)) Results & Data (ED) Vital Signs Vital Signs - 24 hr 08/23/21 15:09 08/23/21 15:13 08/23/21 15:30 Temperature 36.4 C L Temperature Source Temporal Artery Scan Pulse Rate 69 67 Pulse Rate [Right Finger] 67 Pulse Rhythm Regular Pulse Rhythm [Right Finger] Regular Pulse Strength [Right Finger] Normal Respiratory Rate 16 20 Respiratory Effort / Characteristics Non-Labored Spontaneous Non-Labored Respiratory Depth Normal Normal Respiratory Pattern Regular Blood Pressure 122/52 L Blood Pressure Mean 75 Blood Pressure Position Sitting Pulse Oximetry 94 90 85 L Oxygen Delivery Method Room Air Nasal Cannula Room Air Oxygen Flow Rate 3 Sepsis Recent Fever Within 48 Hours No Sepsis New/Unexplained Change in Mental Status No Sepsis Action Taken by Nursing No Action Required 08/23/21 15:36 08/23/21 15:43 08/23/21 15:49 Temperature Temperature Source Pulse Rate Pulse Rate [Right Finger] 66 Pulse Rhythm Pulse Rhythm [Right Finger] Regular Pulse Strength [Right Finger] Normal Respiratory Rate 21 21 Respiratory Effort / Characteristics Non-Labored Spontaneous Non-Labored Spontaneous Respiratory Depth Normal Respiratory Pattern Regular Blood Pressure Blood Pressure Mean Blood Pressure Position Pulse Oximetry 96 95 Oxygen Delivery Method Nasal Cannula Nasal Cannula Nasal Cannula Oxygen Flow Rate 3 3 3 Sepsis Recent Fever Within 48 Hours Sepsis New/Unexplained Change in Mental Status Sepsis Action Taken by [facility] Medications Current Medication List: was personally reviewed by me Laboratory Data Attestation: I reviewed the patient's lab results. Result diagrams: 08/23/21 15:31 08/23/21 15:31 Lab Results 08/23/21 08/23/21 08/23/21 Range/Units 15:31 15:31 15:31 WBC 9.15 (4.8-10.8) K/ul RBC 2.42 L (3.93-5.22) M/uL Hgb 6.7 L* (12.0-16.0) g/dl Hct 23.3 L (34.1-44.9) % MCV 96.3 (80.0-100.0) fL MCH 27.7 (25.0-34.0) pg MCHC 28.8 L (32.0-36.0) g/dL RDW Std Deviation 59.7 H (36.4-46.3) fL RDW Coeff of Fabio 17.2 H (11.5-14.5) % Plt Count 331 (130-400) K/uL MPV 11.0 (9.4-12.3) fL Immature Gran % (Auto) 1.5 % Neut % (Auto) 57.3 % Lymph % (Auto) 21.4 % [place] % (Auto) 17.6 % Eos % (Auto) 1.9 % Baso % (Auto) 0.3 % Neut # (Auto) 5.24 (1.4-6.5) K/uL Lymph # (Auto) 1.96 (1.2-3.4) K/uL [place] # (Auto) 1.61 H (0.24-0.82) K/uL Eos # (Auto) 0.17 (0-0.50) K/uL Baso # (Auto) 0.03 (0-0.2) K/uL Immature Gran # (Auto) 0.14 H (0.00-0.02) K/uL Absolute Nucleated RBC 0.09 H (0-0) K/uL Nucleated RBC % (auto) 1.0 % Polychromasia 1+ Hypochromasia Present PT 13.0 H (9.0-12.0) Seconds INR 1.2 H (0.9-1.1) APTT 29.1 (21.0-31.0) Seconds PTT Ratio 1.1 Sodium 136 (136-145) mmol/L Potassium 4.2 (3.5-5.1) mmol/L Chloride 104 (98-107) mmol/L Carbon Dioxide 23 (21-32) mmol/L Anion Gap 9 (3-11) BUN 28 H (6-23) mg/dl Creatinine 1.09 (0.6-1.2) mg/dl Est Cr Clr Drug Dosing 50.0 ml/min Est GFR ( Amer) 62.6 ml/min Est GFR (Non-Af Amer) 54.0 ml/min BUN/Creatinine Ratio 25.7 H (10-20) Glucose 215 H (70-99(Fasting)) mg/dl Calcium 8.7 (8.5-10.1) mg/dl Magnesium 1.9 (1.7-2.4) mg/dl Total Bilirubin 0.8 (0.2-1.0) mg/dl AST 50 H (13-39) U/L ALT 48 (7-52) U/L Alkaline Phosphatase 109 H (34-104) U/L Troponin I High Sens 12.3 (0-14) pg/ml Total Protein 7.5 (6.0-8.3) gm/dl Albumin 3.3 L (3.4-5.0) gm/dl Globulin 4.2 H (2.5-4.0) gm/dl Albumin/Globulin Ratio 0.8 L (0.9-2) SARS-CoV-2, RNA, NAAT (NEGATIVE) Blood Type Antibody Screen Crossmatch 08/23/21 08/23/21 Range/Units 15:31 16:01 WBC (4.8-10.8) K/ul RBC (3.93-5.22) M/uL Hgb (12.0-16.0) g/dl Hct (34.1-44.9) % MCV (80.0-100.0) fL MCH (25.0-34.0) pg MCHC (32.0-36.0) g/dL RDW Std Deviation (36.4-46.3) fL RDW Coeff of Fabio (11.5-14.5) % Plt Count (130-400) K/uL MPV (9.4-12.3) fL Immature Gran % (Auto) % Neut % (Auto) % Lymph % (Auto) % [place] % (Auto) % Eos % (Auto) % Baso % (Auto) % Neut # (Auto) (1.4-6.5) K/uL Lymph # (Auto) (1.2-3.4) K/uL [place] # (Auto) (0.24-0.82) K/uL Eos # (Auto) (0-0.50) K/uL Baso # (Auto) (0-0.2) K/uL Immature Gran # (Auto) (0.00-0.02) K/uL Absolute Nucleated RBC (0-0) K/uL Nucleated RBC % (auto) % Polychromasia Hypochromasia PT (9.0-12.0) Seconds INR (0.9-1.1) APTT (21.0-31.0) Seconds PTT Ratio Sodium (136-145) mmol/L Potassium (3.5-5.1) mmol/L Chloride (98-107) mmol/L Carbon Dioxide (21-32) mmol/L Anion Gap (3-11) BUN (6-23) mg/dl Creatinine (0.6-1.2) mg/dl Est Cr Clr Drug Dosing ml/min Est GFR ( Amer) ml/min Est GFR (Non-Af Amer) ml/min BUN/Creatinine Ratio (10-20) Glucose (70-99(Fasting)) mg/dl Calcium (8.5-10.1) mg/dl Magnesium (1.7-2.4) mg/dl Total Bilirubin (0.2-1.0) mg/dl AST (13-39) U/L ALT (7-52) U/L Alkaline Phosphatase (34-104) U/L Troponin I High Sens (0-14) pg/ml Total Protein (6.0-8.3) gm/dl Albumin (3.4-5.0) gm/dl Globulin (2.5-4.0) gm/dl Albumin/Globulin Ratio (0.9-2) SARS-CoV-2, RNA, NAAT NEGATIVE (NEGATIVE) Blood Type A Positive Antibody Screen NEGATIVE Crossmatch See Detail Administered Medications Discontinued Medications Furosemide (Furosemide Inj 20 Mg/2 Ml Vial) 20 mg IV ONE ONE Stop: 08/23/21 16:53 Last Admin: 08/23/21 17:07 Dose: 20 mg Documented by: [id number] Heparin Sodium (Beef Lung) (Heparin 10 Unit/Ml 5 Ml Flush) Confirm Administered Dose 5 ml FLUSH .STK-MED ONE Stop: 08/23/21 16:01 Last Admin: 08/23/21 16:02 Dose: 5 ml Documented by: [id number] Ioversol (Optiray 320 125ml) 120 ml IV ONCE ONE Stop: 08/23/21 17:50 Last Admin: 08/23/21 17:49 Dose: 120 ml Documented by: [id number] Imaging Data Radiologist's Impression: Chest X-Ray 08/23/21 15:13 XR chest 1V portable HISTORY: Shortness of breath. COMPARISON: Chest 07/28/2021. FINDINGS: No pneumothorax. The cardiac silhouette is mildly enlarged. There are poststernotomy changes. There is perihilar interstitial/vascular thickening consistent with mild pulmonary edema. There are small bilateral pleural effusions. Hazy bibasilar densities represent atelectasis or pleural effusions. The right PICC terminates in the distal SVC. IMPRESSION: 1. Cardiomegaly with mild interstitial pulmonary edema and small bilateral pleural effusions. 2. The right PICC terminates in the distal SVC. ACT 112: Negative or not required by law. Electronically signed by: Fred Blanc M.D. 08/23/2021 4:01 PM Discharge Plan Visit Data Chief Complaint: Shortness of Breath/Dyspnea Stated Complaint: HERE FOR BLOOD TRANFUSION,SOB ED Provider: Geovani Florez Discharge Problem: Anemia, Hypoxia Patient Disposition: Admitted As Inpatient Condition: Fair Discharge Instructions Interventions: ED Discharge Assessment Last Done: 08/23/21 17:26
[2021-08-23 16:40] LABS: Albumin Globulin Ratio 0.8 (0.9-2); Albumin Level 3.3 gm/dl (3.4-5.0); BUN Creatinine Ratio 25.7 (10-20); Bilirubin,Total 0.8 mg/dl (0.2-1.0); Calcium 8.7 mg/dl (8.5-10.1); Est GFR (African American) 62.6 ml/min; Globulin 4.2 gm/dl (2.5-4.0); Magnesium 1.9 mg/dl (1.7-2.4); Potassium 4.2 mmol/L (3.5-5.1); Total Protein 7.5 gm/dl (6.0-8.3)
[2021-08-23] MEDS ORDERED: FUROSEMIDE INJ 20 MG/2 ML VIAL IV ONE ×3 (16:52→22:08)
[2021-08-23 17:11] LABS: Basophils # (auto) 0.03 K/uL (0-0.2); Basophils % (auto) 0.3 %; Eosinophils # (auto) 0.17 K/uL (0-0.50); Eosinophils % (auto) 1.9 %; Hypochromasia Present; Immature Granulocytes # (auto) 0.14 K/uL (0.00-0.02); Immature Granulocytes % (auto) 1.5 %; Lymphocytes # (auto) 1.96 K/uL (1.2-3.4); Lymphocytes % (auto) 21.4 %; Monocytes # (auto) 1.61 K/uL (0.24-0.82); Monocytes % (auto) 17.6 %; Neutrophils # (auto) 5.24 K/uL (1.4-6.5); Neutrophils % (auto) 57.3 %; Polychromasia 1+
[2021-08-23 17:14] LABS: Troponin I High Sensitivity 12.3 pg/ml (0-14)
[2021-08-23] MEDS ORDERED: OPTIRAY 320 125ml IV ONE (17:49)
[2021-08-23] MEDS ORDERED: GLUCOSE 40% GEL 15 GM TUBE PO PRN (18:05)
[2021-08-23] MEDS ORDERED: LORazepam 0.5 MG TAB PO PRN (18:05)
[2021-08-23] MEDS ORDERED: GLUCOSE 10 TAB/TUBE PO PRN (18:05)
[2021-08-23] MEDS ORDERED: DEXTROSE 50% 50 ML SYRINGE IV PRN (18:05)
[2021-08-23] MEDS ORDERED: CARBOHYDRATES FOR HYPOGLYCEMIA PO PRN (18:05)
[2021-08-23] MEDS ORDERED: GLUCAGON FOR INJ 1 MG VIAL SQ PRN (18:05)
--- NOTE | 2021-08-23 18:10 | CT Scan Report ---
CT ANGIOGRAM OF THE CHEST CLINICAL HISTORY: Dyspnea. COMPARISON STUDY: Chest CT dated 03/16/2021. Chest x-ray dated 08/23/2021. TECHNIQUE: Following the IV administration of 100 and cc of Optiray 320, CT angiogram of the chest wa s performed from the upper abdomen to the thoracic inlet utilizing the pulmonary embolus protocol. Im ages are reviewed in the axial, sagittal, and coronal planes. 3-D MIPS images are created and assesse d. IV contrast was administered without complication. A dose lowering technique was utilized adherin g to the principles of ALARA. CT DOSE: 527.76 mGycm FINDINGS: Thyroid: Imaged portions of the thyroid gland are normal in size and attenuation. Thoracic aorta: There is atherosclerotic calcification of the thoracic aorta, which is normal in maria fernanda daniel and demonstrates 4-vessel variant arch anatomy. No dissection is seen. Pulmonary vasculature: The pulmonary trunk is normal in caliber. There are no filling defects identif ied in main, lobar, or segmental pulmonary branches to suggest pulmonary embolus. Heart: The patient is status post midline sternotomy. The heart is enlarged and without pericardial e ffusion. The coronary arteries are densely calcified. Reflux of contrast into the IVC and hepatic vei ns suggests cardiac dysfunction. Lungs and pleural spaces: Intralobular septal thickening is seen throughout both lungs with mild asso ciated groundglass change. There are small pleural effusions with dependent consolidation. The trache a and central airways are patent. Mediastinum: There is mediastinal lymphadenopathy. A right paratracheal node measures 17 mm in short axis. Prevascular nodes measure up to 14 mm in short axis. Lorie: There is bilateral hilar adenopathy. Hilar lymph nodes measure up to 18 mm in short axis. Axillae: There is no axillary lymphadenopathy. Upper abdomen: Bilateral adrenal nodules are unchanged. Partially visualized upper abdominal viscera is otherwise grossly unremarkable. Skeletal structures: The skeletal structures are osteopenic. No lytic or blastic bony lesions are see n. IMPRESSION: 1. There is no evidence of pulmonary embolus in the main, lobar, or segmental pulmonary arteries. 2. Cardiomegaly with evidence of congestive failure and pulmonary edema. 3. Small pleural effusions with dependent consolidation. 4. Mediastinal and hilar adenopathy is nonspecific and may be reactive. This has modestly increased a s compared to 03/16/2021. 5. Additional findings as above. ACT 112: Negative or not required by law. Electronically signed by: Geovani Dumont M.D. 08/23/2021 6:08 PM
--- NOTE | 2021-08-23 18:52 | History & Physical Report ---
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 Recent baseline Hgb ~ 8-9 Admitted in June 2021 for acute on chronic anemia due to suspected upper GI bleeding. EGD 07/13/2021 showed normal esophagus, normal stomach, normal duodenum. Outpatient colonoscopy was recommended however has not been completed at this time. Likely anemia of chronic disease due to recurrent endocarditis Update iron studies Transfuse 2 unit PRBC w/ Lasix in between units Recommend outpatient colonoscopy (2) Acute on chronic HFrEF (heart failure with reduced ejection fraction): Plan: EF 45% Hypoxic on presentation however suspect some component of chronicity due to suspected underlying COPD from ongoing tobacco use CTA chest shows bilateral pleural effusions and evidence of pulmonary edema IV Lasix in between PRBC units Hold home dose of p.o. Lasix while giving IV Lasix in between PRBC units Diurese with caution due to IV contrast received today (3) Hypoxia: Plan: Hypoxic on room air at 85%, currently requiring 3L O2 via NC Patient states that she has required oxygen since May 2019 hospitalization, when she was recently discharged from [facility] she was not sent home with oxygen CTA negative for pulmonary embolism, show BL pleural effusions and evidence of pulmonary edema Likely multifactorial due to acute on chronic systolic CHF and suspected underlying COPD due to ongoing tobacco abuse Continue oxygen to maintain sat > 90% Likely will need outpatient PFTs Two-step O2 eval prior to discharge (4) MRSA bacteremia: (5) Endocarditis: (6) Abscess of aorta: Plan: 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 Recently discharged from [facility] on IV daptomycin with stop date of 09/23/2021 Currently afebrile, no leukocytosis Last negative blood cultures on 08/03/2021 Needs to follow-up with vascular surgery with CT angiogram of the abdomen in 4 weeks (7) Coronary artery disease: Plan: Episode of chest pain overnight requiring 2 SL nitro Initial troponin negative, EKG shows an unchanged LBBB Chest pain likely due to anemia and hypoxia Continue to trend troponin Continue ASA, Plavix, beta-raymond Hold statin while on daptomycin (8) Diabetes mellitus, type 2: Plan: Hgb A1c 6.1 07/2021 Lantus and NovoLog per protocol while hospitalized (9) HTN (hypertension): Plan: BP controlled Hold lisinopril for today due to receiving IV contrast Continue metoprolol (10) DVT prophylaxis: Plan: SCDs due to anemia Admission and Anticipated Discharge Date Admission Date: August 23, 2021 History of Present Illness Chief Complaint: Referred by PCP for anemia Primary Care Provider: Christiano Simon PA-C 61-year-old medically complex female with PMH DM type II, CAD s/p CABG, HTN, chronic systolic CHF EF 45%, left BKA due to wound dehiscence and left ankle infection s/p previous ORIF due to fracture, 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 Noted patient has had several hospitalizations over the past several months. Recently discharged from [facility] on 08/12/2021 where she was admitted for recurrent MRSA bacteremia, periaortic abscess, suspected endocarditis. Patient previously on IV vancomycin for treatment of MRSA bacteremia however given recurrence, patient was placed on IV daptomycin. PICC [place] [facility] and patient is to continue IV daptomycin until 09/23/2021. Patient notes being on oxygen during her hospitalizations since May. When she was discharged [place] [facility], home oxygen was not arranged for her. Patient reports that overnight, she woke up out of sleep and felt suddenly short of breath and had a substernal chest pain. Patient rates the pain #8/10 and describes it as sharp. She reports both of her arms were aching as well. Patient reports taking 2 sublingual nitroglycerin with improvement in chest discomfort. She reports taking some slow deep breaths which help with her shortness of breath. Patient saw her PCP today and was sent for labs that showed Hgb 6.5. Patient was then referred to the ED for further evaluation. Patient denies fevers and chills. No lightheadedness, dizziness, diaphoresis, syncopal events. She denies abdominal pain, nausea, vomiting, diarrhea, bright red bleeding per rectum, dark tarry stools. No urinary symptoms. The ED, labs show Hgb 6.7. HR and BP stable. Patient was found to be 85% on room air and is currently saturating well on 3 L of oxygen via nasal cannula. Patient was typed and crossed for 2 unit PRBC. Allergies Allergy/AdvReac Type Severity Reaction Status Date / Time latex Allergy Intermediate Rash Verified 08/23/21 16:31 aspirin Allergy Unknown UNKNOWN Verified 08/23/21 16:31 Home Medications Medication Instructions Recorded Confirmed Type atorvastatin 80 mg tablet 80 mg PO HS 03/16/21 08/23/21 History clopidogrel 75 mg tablet 75 mg PO DAILY 03/16/21 08/23/21 History duloxetine 30 mg capsule,delayed 30 mg PO QAM 03/16/21 08/23/21 History release duloxetine 60 mg capsule,delayed 60 mg PO QAM 03/16/21 08/23/21 History release lisinopril 10 mg tablet 10 mg PO DAILY 03/16/21 08/23/21 History metoprolol succinate 50 mg See Rx Instructions .ROUTE .COMPLEX 03/16/21 08/23/21 History tablet,extended release 24 hr topiramate 50 mg tablet 50 mg PO BID 03/16/21 08/23/21 History multivitamin with folic acid 400 1 tab PO QAM #30 tab 03/29/21 08/23/21 Rx mcg tablet (Daily-Hardik (with folic acid)) aspirin 81 mg tablet,delayed 81 mg PO DAILY 05/14/21 08/23/21 History release insulin aspart U-100 100 unit/mL 0 unit SUBCUT TID MDD 72 UNITS/DAY. 05/14/21 08/23/21 History (3 mL) subcutaneous pen (Novolog Flexpen U-100 Insulin aspart) nitroglycerin 0.4 mg sublingual 0.4 mg SUBLINGUAL .PRN/UD PRN 05/14/21 08/23/21 History tablet tramadol 50 mg tablet 50 mg PO Q6H PRN 07/28/21 08/23/21 History acetaminophen 500 mg tablet 500 mg PO Q6H PRN 08/23/21 08/23/21 History (Tylenol Extra Strength) conjugated estrogens 0.625 mg/gram 0.625 mg VAGINAL HS 08/23/21 08/23/21 History vaginal cream daptomycin 500 mg intravenous 500 mg IV DAILY 08/23/21 08/23/21 History solution donepezil 5 mg tablet 5 mg PO HS 08/23/21 08/23/21 History furosemide 20 mg tablet (Lasix) 60 mg PO DAILY 08/23/21 08/23/21 History gabapentin 300 mg capsule See Rx Instructions .ROUTE .COMPLEX 08/23/21 08/23/21 History insulin glargine 100 unit/mL (3 35 unit SUBCUT QAM 08/23/21 08/23/21 History mL) subcutaneous pen (Basaglar KwikPen U-100 Insulin) lorazepam 0.5 mg tablet 0.5 mg PO Q8H PRN MDD 3 TABS/DAILY 08/23/21 08/23/21 History omeprazole 20 mg capsule,delayed 20 mg PO DAILY 08/23/21 08/23/21 History release quetiapine 100 mg tablet (Seroquel) 100 mg PO HS 08/23/21 08/23/21 History Past Med/Surg History Medical History (Updated 08/24/21 @ 14:59 by Vivian Faulkner MD) Abscess of aorta Anxiety Carotid stenosis according to records from 2019 CEA was recommended but patient declined. no objective quantification available Carpal tunnel syndrome, left Chronic congestive heart failure with left ventricular diastolic dysfunction Coronary artery disease Diabetes mellitus, type 2 Encounter for pre-operative examination HFrEF (heart failure with reduced ejection fraction) History of left below knee amputation HTN (hypertension) LBBB (left bundle branch block) MRSA bacteremia Osteomyelitis Psychotic disorder Tobacco use disorder Ulnar neuropathy at elbow of left upper extremity Surgical History Status post cholecystectomy Status post coronary artery bypass grafting Status post hysterectomy Status post ORIF of fracture of ankle R, 2017 Family History Other Diabetes Heart disease Social History Smoking Status: Current every day smoker Tobacco Type: Cigarettes packs per day: 1; Years Smoked: 35; Cigarettes Per Day: 10; Second Hand Exposure: No; Tobacco Cessation Education Requested by Patient: No Hx Alcohol Use: No Hx Substance Use: No Preferred Language: Swedish Communication Ability: Effective Copy Worker Required: No Beliefs That Will Affect Care: None marital status: Current Living Situation: Other Current Living Situation Comment: Friend Other Information That Helps Us Care for You: No Feels Safe at Home: Yes Safety Concerns: Feels Safe At This Time Assistive Devices: Cane, Walker and Wheelchair Review of Systems Review of Systems: ROS per HPI, all other systems reviewed and negative Physical Exam Constitutional: WD/WN, vitals as above Eyes: PERRL, conjunctivae normal, anicteric sclerae ENMT: external ear and nose normal, oropharynx normal Respiratory: normal respiratory effort; no respiratory distress Auscultation: + diminished lung sounds and + crackles (mid/lower BL) Cardiovascular: Rate/Rhythm: regular rate and regular rhythm Vessels: normal peripheral pulses Extremities: + edema (+1 edema RLE) Gastrointestinal (Abdomen): normal bowel sounds, soft, nontender, no hepatosplenomegaly Musculoskeletal: no cyanosis or clubbing, extremities motor strength 5/5 S/p left BKA Skin: no rashes, warm and dry Neurologic: PERRL, EOMI, accommodation nl, no face palsy, no dysarthria Psychiatric: A+Ox3, euthymic affect Results & Data Results & Data ([facility]) Vital Signs (Past 12 Hours) Vital Signs Temp Pulse Pulse Resp BP BP Pulse Ox 08/23/21 18:39 36.7 C 67 18 128/71 97 08/23/21 18:10 68 08/23/21 17:59 36.8 C 64 18 131/73 95 08/23/21 17:18 67 20 132/73 95 08/23/21 15:49 21 95 08/23/21 15:36 66 21 96 08/23/21 15:30 67 67 20 85 L 08/23/21 15:13 90 08/23/21 15:09 36.4 C L 69 16 122/52 L 94 Laboratory Results Short CBC 08/23/21 Range/Units 15:31 WBC 9.15 (4.8-10.8) K/ul Hgb 6.7 L* (12.0-16.0) g/dl Hct 23.3 L (34.1-44.9) % Plt Count 331 (130-400) K/uL BMP 08/23/21 15:31 Sodium 136 Potassium 4.2 Chloride 104 Carbon Dioxide 23 BUN 28 H Creatinine 1.09 Glucose 215 H Calcium 8.7 Liver Function 08/23/21 Range/Units 15:31 Total Bilirubin 0.8 (0.2-1.0) mg/dl AST 50 H (13-39) U/L ALT 48 (7-52) U/L Alkaline Phosphatase 109 H (34-104) U/L Albumin 3.3 L (3.4-5.0) gm/dl Diagnostic Findings Chest X-Ray 08/23/21 15:13 XR chest 1V portable HISTORY: Shortness of breath. COMPARISON: Chest 07/28/2021. FINDINGS: No pneumothorax. The cardiac silhouette is mildly enlarged. There are poststernotomy changes. There is perihilar interstitial/vascular thickening consistent with mild pulmonary edema. There are small bilateral pleural effusions. Hazy bibasilar densities represent atelectasis or pleural effusions. The right PICC terminates in the distal SVC. IMPRESSION: 1. Cardiomegaly with mild interstitial pulmonary edema and small bilateral pleural effusions. 2. The right PICC terminates in the distal SVC. ACT 112: Negative or not required by law. Electronically signed by: Fred Blanc M.D. 08/23/2021 4:01 PM Chest CTA 08/23/21 16:50 CT ANGIOGRAM OF THE CHEST CLINICAL HISTORY: Dyspnea. COMPARISON STUDY: Chest CT dated 03/16/2021. Chest x-ray dated 08/23/2021. TECHNIQUE: Following the IV administration of 100 and cc of Optiray 320, CT angiogram of the chest was performed from the upper abdomen to the thoracic inlet utilizing the pulmonary embolus protocol. Images are reviewed in the axial, sagittal, and coronal planes. 3-D MIPS images are created and assessed. IV contrast was administered without complication. A dose lowering technique was utilized adhering to the principles of ALARA. CT DOSE: 527.76 mGycm FINDINGS: Thyroid: Imaged portions of the thyroid gland are normal in size and attenuation. Thoracic aorta: There is atherosclerotic calcification of the thoracic aorta, which is normal in caliber and demonstrates 4-vessel variant arch anatomy. No dissection is seen. Pulmonary vasculature: The pulmonary trunk is normal in caliber. There are no filling defects identified in main, lobar, or segmental pulmonary branches to suggest pulmonary embolus. Heart: The patient is status post midline sternotomy. The heart is enlarged and without pericardial effusion. The coronary arteries are densely calcified. Reflux of contrast into the IVC and hepatic veins suggests cardiac dysfunction. Lungs and pleural spaces: Intralobular septal thickening is seen throughout both lungs with mild associated groundglass change. There are small pleural effusions with dependent consolidation. The trachea and central airways are patent. Mediastinum: There is mediastinal lymphadenopathy. A right paratracheal node measures 17 mm in short axis. Prevascular nodes measure up to 14 mm in short axis. Lorie: There is bilateral hilar adenopathy. Hilar lymph nodes measure up to 18 mm in short axis. Axillae: There is no axillary lymphadenopathy. Upper abdomen: Bilateral adrenal nodules are unchanged. Partially visualized upper abdominal viscera is otherwise grossly unremarkable. Skeletal structures: The skeletal structures are osteopenic. No lytic or blastic bony lesions are seen. IMPRESSION: 1. There is no evidence of pulmonary embolus in the main, lobar, or segmental pulmonary arteries. 2. Cardiomegaly with evidence of congestive failure and pulmonary edema. 3. Small pleural effusions with dependent consolidation. 4. Mediastinal and hilar adenopathy is nonspecific and may be reactive. This has modestly increased as compared to 03/16/2021. 5. Additional findings as above. ACT 112: Negative or not required by law. Electronically signed by: Geovani Dumont M.D. 08/23/2021 6:08 PM Code Status & VTE Plan Code Status Patient is a full code as per my discussion with her. Patient states that her daughter would be her decision-maker in the event she were to be unable to. VTE Prophylaxis Plan VTE Prophylaxis will be ordered: Yes Supervising Physician Co-Signing Physician Notes Pt was seen and examined. Agreed with Kinga JACKSON exam, assessment and plan. 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 Pt has been in the hospital and rehab since May. She was recently discharge home on 08/12. She said last night she woke up with SOB and substernal chest pain that radiating to both arm. She saw her PCP today that order lab. Outpatient lab showed Hgb 6.5. Pt was advised to come to the ED. In the ER Pt was desaturated with oxygen level 85% on room air. She was placed on 3L NC. Denies any lightheadedness, dizziness, diaphoresis, syncopal events. She denies abdominal pain, nausea, vomiting, diarrhea, bright red bleeding per rectum, dark tarry stools. Type and crossed for 2 units PRBC. Will get a CTA chest to r/o PE. Will monitor closely for volume overload and diuretic gently after the blood transfusion. Will continue IV abx with daptomycin foe the bacteremia/endocarditis. Will monitor H/H. Continue monitor closely. MD Javier (1) Anemia Anemia type: unspecified type Qualified Code(s): D64.9 - Anemia, unspecified
[2021-08-23] MEDS: METOPROLOL SUCC 50MG EXT REL TAB PO SCH (20:15)
[2021-08-23] MEDS: GABAPENTIN 600 MG TAB PO SCH (20:16)
[2021-08-23] MEDS: TOPIRAMATE 50 MG TAB PO SCH (20:16)
[2021-08-23] MEDS: QUEtiapine FUMARATE 100 MG TABLET PO SCH (20:16)
[2021-08-23] MEDS: DONEPEZIL HCL 5 MG TAB PO SCH (20:16)
[2021-08-23] MEDS ORDERED: ATORVASTATIN 40 MG TAB PO SCH (21:00)
[2021-08-23 21:15] LABS: Folate (Folic Acid) > 22.30 ng/ml (>5.38)
[2021-08-23 21:16] LABS: Vitamin B12 494 pg/ml (180-914)
[2021-08-23] MEDS: INSULIN ASPART PER UNIT SC SCH (21:34)
[2021-08-23 22:17] LABS: Reticulocyte % 7.5 % (0.5-2.0); Reticulocytes # 0.18 10^6/uL (0.02-0.10)
[2021-08-24] MEDS: traMADol HCL 50 MG TABLET PO PRN ×4 (01:24→22:30)
[2021-08-24 06:16] LABS: Hematocrit (blood only) 28.8 % (34.1-44.9); Hemoglobin 8.8 g/dl (12.0-16.0); Mean Corpuscular Hemoglobin 26.9 pg (25.0-34.0); Mean Corpuscular Hgb Conc 30.6 g/dL (32.0-36.0); Mean Corpuscular Volume 88.1 fL (80.0-100.0); Mean Platelet Volume 10.5 fL (9.4-12.3); Nucleated RBC # (auto) 0.06 K/uL (0-0); Nucleated RBC % (auto) 0.5 %; Platelet Count 285 K/uL (130-400); RDW Coefficient of Variation 19.1 % (11.5-14.5); RDW Standard Deviation 60.1 fL (36.4-46.3); Red Blood Count 3.27 M/uL (3.93-5.22); White Blood Count 11.66 K/ul (4.8-10.8)
[2021-08-24 06:27] LABS: BUN Creatinine Ratio 22.8 (10-20); Calcium 8.5 mg/dl (8.5-10.1); Creatinine Clr Calc Pharmacy 51.2 ml/min; Est GFR (African American) 68.6 ml/min; Est GFR (Non-African American) 59.2 ml/min; Potassium 3.7 mmol/L (3.5-5.1)
[2021-08-24] MEDS: GABAPENTIN 300 MG CAP PO SCH (08:50)
[2021-08-24] MEDS: DULoxetine HCL 30 MG CAP PO SCH (08:50)
[2021-08-24] MEDS: DULoxetine HCL 60 MG CAP PO SCH (08:50)
[2021-08-24] MEDS: TOPIRAMATE 50 MG TAB PO SCH ×2 (08:50→20:44)
[2021-08-24] MEDS: CLOPIDOGREL BISULFATE 75 MG TAB PO SCH (08:50)
[2021-08-24] MEDS: METOPROLOL SUCC 50MG EXT REL TAB PO SCH ×2 (08:50→20:44)
[2021-08-24] MEDS: PANTOprazole 40 MG TAB PO SCH (08:50)
[2021-08-24] MEDS: ASPIRIN 81 MG ECTAB PO SCH (08:50)
[2021-08-24] MEDS ORDERED: DAPTOmycin 500 MG VIAL IV SCH (09:00)
[2021-08-24] MEDS: INSULIN ASPART PER UNIT SC SCH ×4 (09:06→20:43)
[2021-08-24] MEDS: LANTUS PER UNIT CHARGE SQ SCH (09:08)
[2021-08-24] MEDS ORDERED: FUROSEMIDE 40 MG/4 ML VIAL IV ONE (10:30)
--- NOTE | 2021-08-24 12:01 | Electrocardiogram Report ---
Test Reason : Blood Pressure : / mmHG Vent. Rate : 067 BPM Atrial Rate : 067 BPM P-R Int : 146 ms QRS Dur : 146 ms QT Int : 496 ms P-R-T Axes : 049 007 080 degrees QTc Int : 524 ms Normal sinus rhythm Left bundle branch block Abnormal ECG When compared with ECG of 28-JUL-2021 12:51, T wave inversion no longer evident in Lateral leads Confirmed by Allen Dey ([id number]) on 08/24/2021 12:00:47 PM Referred By: ED Confirmed By:Paolo Dey
[2021-08-24] MEDS: ACETAMINOPHEN 325 MG TAB PO PRN ×2 (12:31→20:43)
--- NOTE | 2021-08-24 15:05 | Hospitalist Progress Note ---
Date of Service August 24, 2021 Assessment & Plan (1) Anemia: Plan: Seems to be anemia of subacute infection Patient presenting by referral of PCPs office for evaluation of anemia Hgb 6.7 today, no obvious signs of bleeding at this time, BP stable. Recent baseline Hgb ~ 8-9 Admitted in June 2021 for acute on chronic anemia due to suspected upper GI bleeding. EGD 07/13/2021 showed normal esophagus, normal stomach, normal duodenum. Outpatient colonoscopy was recommended however has not been completed at this time. Likely anemia of chronic disease due to recurrent endocarditis Update iron studies-iron level is minimally low Transfuse 2 unit PRBC w/ Lasix in between units Hemoglobin went up to 8.8 and the patient has been feeling a little better Will start iron tablet Monitor CBC (2) Subacute bacterial endocarditis (SBE): Plan: Recent past medical history: Initial diagnosis of MRSA bacteremia, osteomyelitis and endocarditis on 05/19/2021 and received I/V antibiotic until 06/28/2021 Readmission with aortic abscess and endocarditis on and was sent to [facility] [place] for further management She was discharged from [facility] on 12 August and was advised to continue IV daptomycin until 09/23/2021 Has subacute bacterial endocarditis Clinically stable and will continue intravenous antibiotic as planned (3) Abscess of aorta: Plan: 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 Recently discharged from [facility] on IV daptomycin with stop date of 09/23/2021 Currently afebrile, no leukocytosis Last negative blood cultures on 08/03/2021 Needs to follow-up with vascular surgery with CT angiogram of the abdomen in 4 weeks We will continue current intravenous antibiotic (4) Acute on chronic HFrEF (heart failure with reduced ejection fraction): Plan: EF 45% Hypoxic on presentation however suspect some component of chronicity due to suspected underlying COPD from ongoing tobacco use CTA chest shows bilateral pleural effusions and evidence of pulmonary edema IV Lasix in between PRBC units Hold home dose of p.o. Lasix while giving IV Lasix in between PRBC units Diurese with caution due to IV contrast received today Still requiring 4 L of nasal cannula oxygen and there is not much urine output Will give 40 of intravenous Lasix and will need to continue for next few days (5) Hypoxia: Plan: Hypoxic on room air at 85%, currently requiring 3L O2 via NC Patient states that she has required oxygen since May 2019 hospitalization, when she was recently discharged from [facility] she was not sent home with oxygen CTA negative for pulmonary embolism, show BL pleural effusions and evidence of pulmonary edema Likely multifactorial due to acute on chronic systolic CHF and suspected underlying COPD due to ongoing tobacco abuse Continue oxygen to maintain sat > 90% Lasix 40 mg IV x1 given today and will need to continue depending on PRP (6) MRSA bacteremia: Plan: Last negative blood cultures on 08/03/2021 Await repeat blood culture (7) Coronary artery disease: Plan: Episode of chest pain overnight requiring 2 SL nitro Initial troponin negative, EKG shows an unchanged LBBB Chest pain likely due to anemia and hypoxia Continue to trend troponin Continue ASA, Plavix, beta-raymond Hold statin while on daptomycin (8) Diabetes mellitus, type 2: Plan: Hgb A1c 6.1 07/2021 Lantus and NovoLog per protocol while hospitalized (9) HTN (hypertension): Plan: BP controlled Hold lisinopril for today due to receiving IV contrast Continue metoprolol (10) DVT prophylaxis: Plan: SCDs due to anemia CODE STATUS Full Admission and Anticipated Discharge Date Admission Date: August 23, 2021 Subjective 08/24/2021 The patient was seen and examined in telemetry unit She has been feeling much better since admission Remains generally weak but denies any chest pain, palpitation or increasing shortness of breath Review of Systems Review of Systems: All systems reviewed and are unremarkable except as noted below Respiratory: Minimal shortness of breath at rest Neurologic: Generally weak and lethargic Physical Exam Physical Exam: Lying in bed with minimal shortness of breath Constitutional: + ill appearing and average body habitus Eyes: PERRL, conjunctivae normal, anicteric sclerae ENMT: external ear and nose normal, oropharynx normal Neck: trachea midline, no thyromegaly Respiratory: + respiratory distress (Minimal distress at rest) Auscul tation: + diminished lung sounds and + crackles (Bibasilar crackles) Cardiovascular: Rate/Rhythm: regular rate and regular rhythm; not tachycardic Heart Sounds: normal S1, normal S2 and + murmur (2/6 ESM over precordium) Gastrointestinal (Abdomen): Inspection/Auscultation: normal bowel sounds; abdomen not distended Percussion/Palpation: abdomen soft; abdomen nontender Musculoskeletal: No acute arthritis in any joint Neurologic: Alert, awake and oriented x3. No focal sensory or no motor deficit appreciated Lymphatic: no cervical or axillary lymphadenopathy Results & Data Results & Data ([facility]) Vital Signs (Past 12 Hours) Vital Signs Temp Pulse Pulse Resp BP Pulse Ox 08/24/21 12:09 36.8 C 68 18 128/69 90 08/24/21 08:03 36.7 C 63 20 137/78 91 08/24/21 07:25 66 08/24/21 03:40 36.7 C 63 18 129/78 94 Laboratory Results Short CBC 08/23/21 08/24/21 Range/Units 15:31 05:31 WBC 9.15 11.66 H (4.8-10.8) K/ul Hgb 6.7 L* 8.8 L (12.0-16.0) g/dl Hct 23.3 L 28.8 L (34.1-44.9) % Plt Count 331 285 (130-400) K/uL BMP 08/23/21 08/24/21 15:31 05:31 Sodium 136 138 Potassium 4.2 3.7 Chloride 104 106 Carbon Dioxide 23 27 BUN 28 H 23 Creatinine 1.09 1.01 Glucose 215 H 102 H Calcium 8.7 8.5 Liver Function 08/23/21 Range/Units 15:31 Total Bilirubin 0.8 (0.2-1.0) mg/dl AST 50 H (13-39) U/L ALT 48 (7-52) U/L Alkaline Phosphatase 109 H (34-104) U/L Albumin 3.3 L (3.4-5.0) gm/dl Medications Administered Current Inpatient Medications Acetaminophen (Acetaminophen 325 Mg Tab) 650 mg PO Q4H PRN PRN Reason: Pain or Fever Stop: 09/22/21 18:04 Last Admin: 08/24/21 12:31 Dose: 650 mg Documented by: Aspirin (Aspirin 81 Mg Ectab) 81 mg PO DAILY SAMANTHA Stop: 09/23/21 08:59 Last Admin: 08/24/21 08:50 Dose: 81 mg Documented by: Atorvastatin Calcium (Atorvastatin 40 Mg Tab) 80 mg PO HS SAMANTHA Stop: 09/22/21 20:59 Clopidogrel Bisulfate (Clopidogrel Bisulfate 75 Mg Tab) 75 mg PO DAILY SAMANTHA Stop: 09/23/21 08:59 Last Admin: 08/24/21 08:50 Dose: 75 mg Documented by: Dextrose (Dextrose 50% 50 Ml Syringe) 25 - 50 ml IV UD PRN; Protocol PRN Reason: Hypoglycemia Protocol Stop: 09/22/21 18:04 Donepezil HCl (Donepezil Hcl 5 Mg Tab) 5 mg PO HS SAMANTHA Stop: 09/22/21 20:59 Last Admin: 08/23/21 20:16 Dose: 5 mg Documented by: Duloxetine HCl (Duloxetine Hcl 30 Mg Cap) 30 mg PO QAM SAMANTHA Stop: 09/23/21 08:59 Last Admin: 08/24/21 08:50 Dose: 30 mg Documented by: Duloxetine HCl (Duloxetine Hcl 60 Mg Cap) 60 mg PO QAM SAMANTHA Stop: 09/23/21 08:59 Last Admin: 08/24/21 08:50 Dose: 60 mg Documented by: Gabapentin (Gabapentin 300 Mg Cap) 300 mg PO QAM SAMANTHA Stop: 09/23/21 08:59 Last Admin: 08/24/21 08:50 Dose: 300 mg Documented by: Gabapentin (Gabapentin 600 Mg Tab) 600 mg PO QPM SAMANTHA Stop: 09/22/21 20:59 Last Admin: 08/23/21 20:16 Dose: 600 mg Documented by: Glucagon (Glucagon For Inj 1 Mg Vial) 1 mg SQ UD PRN; Protocol PRN Reason: Hypoglycemia Protocol Stop: 09/22/21 18:04 Glucose (Glucose 40% Gel 15 Gm Tube) 15 - 30 gm PO UD PRN; Protocol PRN Reason: Hypoglycemia Protocol Stop: 09/22/21 18:04 Glucose (Glucose 10 Tab/Tube) 4 - 8 tab PO UD PRN; Protocol PRN Reason: Hypoglycemia Treatment Stop: 09/22/21 18:04 Heparin Sodium (Beef Lung) (Heparin 10 Unit/Ml 5 Ml Flush) 5 ml FLUSH PRN PRN PRN Reason: Flush Stop: 09/23/21 00:43 Last Admin: 08/24/21 11:15 Dose: 5 ml Documented by: Daptomycin 500 mg/ Syringe 10 mls @ 5 mls/min IV DAILY@1500 SAMANTHA; Protocol Stop: 09/23/21 14:59 Insulin Aspart (Insulin Aspart Per Unit) 0 units SC ACHS SAMANTHA Stop: 09/22/21 20:59 Last Admin: 08/24/21 12:10 Dose: 4 units Documented by: Insulin Glargine (Lantus Per Unit Charge) 35 units SQ QAM SAMANTHA Stop: 09/23/21 08:59 Last Admin: 08/24/21 09:08 Dose: 35 units Documented by: Lorazepam (Lorazepam 0.5 Mg Tab) 0.5 mg PO Q8H PRN PRN Reason: Anxiety Stop: 09/22/21 18:04 Metoprolol Succinate (Metoprolol Succ 50mg Ext Rel Tab) 100 mg PO QAM [facility] Stop: 09/23/21 08:59 Last Admin: 08/24/21 08:50 Dose: 100 mg Documented by: Metoprolol Succinate (Metoprolol Succ 50mg Ext Rel Tab) 50 mg PO QPM [facility] Stop: 09/22/21 20:59 Last Admin: 08/23/21 20:15 Dose: 50 mg Documented by: Miscellaneous (Carbohydrates For Hypoglycemia ) 15 - 30 gm PO UD PRN PRN Reason: Hypoglycemia Protocol Stop: 09/22/21 18:04 Pantoprazole Sodium (Pantoprazole 40 Mg Tab) 40 mg PO DAILY [facility] Stop: 09/23/21 08:59 Last Admin: 08/24/21 08:50 Dose: 40 mg Documented by: Quetiapine Fumarate (Quetiapine Fumarate 100 Mg Tablet) 100 mg PO HS [facility] Stop: 09/22/21 20:59 Last Admin: 08/23/21 20:16 Dose: Not Given Documented by: Topiramate (Topiramate 50 Mg Tab) 50 mg PO BID SAMANTHA Stop: 09/22/21 20:59 Last Admin: 08/24/21 08:50 Dose: 50 mg Documented by: Tramadol HCl (Tramadol Hcl 50 Mg Tablet) 50 mg PO Q6H PRN PRN Reason: Pain Stop: 09/22/21 18:04 Last Admin: 08/24/21 09:11 Dose: 50 mg Documented by: (1) Anemia Anemia type: unspecified type Qualified Code(s): D64.9 - Anemia, unspecified
[2021-08-24] MEDS: DAPTOmycin 500 MG in SYRINGE 0 ML IV SCH (15:43)
[2021-08-24] MEDS: DONEPEZIL HCL 5 MG TAB PO SCH (20:44)
[2021-08-24] MEDS: QUEtiapine FUMARATE 100 MG TABLET PO SCH (20:44)
[2021-08-24] MEDS: GABAPENTIN 600 MG TAB PO SCH (20:46)
[2021-08-25 05:52] LABS: Basophils # (auto) 0.03 K/uL (0-0.2); Basophils % (auto) 0.4 %; Eosinophils # (auto) 0.26 K/uL (0-0.50); Eosinophils % (auto) 3.5 %; Hematocrit (blood only) 27.6 % (34.1-44.9); Hemoglobin 8.2 g/dl (12.0-16.0); Immature Granulocytes # (auto) 0.06 K/uL (0.00-0.02); Immature Granulocytes % (auto) 0.8 %; Lymphocytes # (auto) 1.58 K/uL (1.2-3.4); Lymphocytes % (auto) 21.5 %; Mean Corpuscular Hemoglobin 26.7 pg (25.0-34.0); Mean Corpuscular Hgb Conc 29.7 g/dL (32.0-36.0); Mean Corpuscular Volume 89.9 fL (80.0-100.0); Mean Platelet Volume 10.8 fL (9.4-12.3); Monocytes # (auto) 1.51 K/uL (0.24-0.82); Monocytes % (auto) 20.5 %; Neutrophils # (auto) 3.91 K/uL (1.4-6.5); Neutrophils % (auto) 53.3 %; Nucleated RBC # (auto) 0.02 K/uL (0-0); Nucleated RBC % (auto) 0.3 %; Platelet Count 244 K/uL (130-400); RDW Coefficient of Variation 19.3 % (11.5-14.5); Red Blood Count 3.07 M/uL (3.93-5.22); White Blood Count 7.35 K/ul (4.8-10.8)
[2021-08-25 06:24] LABS: BUN Creatinine Ratio 17.8 (10-20); Calcium 8.2 mg/dl (8.5-10.1); Creatinine Clr Calc Pharmacy 48.3 ml/min; Est GFR (Non-African American) 55.2 ml/min; Magnesium 1.8 mg/dl (1.7-2.4); Phosphorus 3.8 mg/dl (2.5-4.9); Potassium 3.3 mmol/L (3.5-5.1)
[2021-08-25] MEDS: traMADol HCL 50 MG TABLET PO PRN ×2 (07:27→17:56)
[2021-08-25] MEDS: TOPIRAMATE 50 MG TAB PO SCH ×2 (08:30→20:18)
[2021-08-25] MEDS: METOPROLOL SUCC 50MG EXT REL TAB PO SCH ×2 (08:30→20:19)
[2021-08-25] MEDS: PANTOprazole 40 MG TAB PO SCH (08:34)
[2021-08-25] MEDS: ASPIRIN 81 MG ECTAB PO SCH (08:34)
[2021-08-25] MEDS: GABAPENTIN 300 MG CAP PO SCH (08:34)
[2021-08-25] MEDS: DULoxetine HCL 60 MG CAP PO SCH (08:34)
[2021-08-25] MEDS: CLOPIDOGREL BISULFATE 75 MG TAB PO SCH (08:34)
[2021-08-25] MEDS: LANTUS PER UNIT CHARGE SQ SCH (08:34)
[2021-08-25] MEDS: DULoxetine HCL 30 MG CAP PO SCH (08:34)
[2021-08-25] MEDS: INSULIN ASPART PER UNIT SC SCH ×4 (08:35→20:14)
--- NOTE | 2021-08-25 11:26 | Electrocardiogram Report ---
Test Reason : Blood Pressure : / mmHG Vent. Rate : 059 BPM Atrial Rate : 059 BPM P-R Int : 144 ms QRS Dur : 150 ms QT Int : 518 ms P-R-T Axes : 041 007 012 degrees QTc Int : 512 ms Sinus bradycardia Left bundle branch block Abnormal ECG When compared with ECG of 23-AUG-2021 15:24, Nonspecific T wave abnormality now evident in Inferior leads Confirmed by Allen Dey ([id number]) on 08/25/2021 11:25:51 AM Referred By: REFERRED SELF Confirmed By:Paolo Dey
[2021-08-25] MEDS: DAPTOmycin 500 MG in SYRINGE 0 ML IV SCH (15:07)
[2021-08-25] MEDS ORDERED: POTASSIUM CHLORIDE CRTAB 20 MEQ TABCR PO STA (16:31)
[2021-08-25] MEDS ORDERED: MAGNESIUM SULFATE / D5W 1 GM/100 ML BAG IV ONE (16:31)
--- NOTE | 2021-08-25 16:34 | Hospitalist Progress Note ---
Date of Service August 25, 2021 Assessment & Plan (1) Anemia: Plan: Hgb 6.7 on admission. No active bleed. Baseline 8-9 Admitted in June 2021 for acute on chronic anemia due to suspected upper GI bleeding. EGD 07/13/2021 showed normal esophagus, normal stomach, normal duodenum. Outpatient colonoscopy was recommended however has not been completed at this time. Likely anemia of chronic disease due to recurrent endocarditis -s/p 2 unit PRBC with appropriate response -iron deficiency, start PO iron (2) Acute on chronic HFrEF (heart failure with reduced ejection fraction): Plan: EF 45%e CTA chest shows bilateral pleural effusions and evidence of pulmonary edema Still volume overloaded--start lasix 40mg IV BID (3) Hypoxia: Plan: Acute hypoxic respiratory failure -not on home oxygen -likely due to CHF and/or underlying COPD with her long smoking history -wean oxygen as tolerated, may need 2 step on day of discharge to determine if home oxygen is needed (4) MRSA bacteremia: (5) Endocarditis: (6) Abscess of aorta: Plan: 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 Recently discharged from [facility] on IV daptomycin with stop date of 09/23/2021 Needs to follow-up with vascular surgery with CT angiogram of the abdomen in 4 weeks (7) Coronary artery disease: Plan: Continue ASA, Plavix, beta-raymond Hold statin while on daptomycin (8) Diabetes mellitus, type 2: Plan: Hgb A1c 6.1 07/2021 Lantus and NovoLog per protocol while hospitalized (9) HTN (hypertension): Plan: BP controlled Hold lisinopril for now, BP normotensive Continue metoprolol (10) DVT prophylaxis: Plan: start SQ heparin, patient at increased risk for VTE with her bedbound status Plan Disposition -return home when oxygen weaned down/off Admission and Anticipated Discharge Date Admission Date: August 23, 2021 Subjective Patient feels well Overnight oxygen requirements increased, currently down to 5L NC. Patient reports smoking 10 cigarettes a day but is wiling to quite if she needs home oxygen Denies chest pain, shortness of breath Feels comfortable to return home when she is medically stable Physical Exam Physical Exam: appears chronically ill, no acute distress, older than stated age Respiratory: +crackles at bases, no wheezing/rhonchi/rales Cardiovascular: regular rate and rhythm, no murmurs/rubs/gallops Gastrointestinal (Abdomen): soft, non tender Musculoskeletal: trace pedal edema Neurologic: awake, alert, spontaneously moving extremities Results & Data Results & Data ([facility]) Vital Signs (Past 12 Hours) Vital Signs Temp Pulse Pulse Resp BP Pulse Ox O2 Del Method 08/25/21 15:54 36.9 C 65 19 122/68 93 Nasal Cannula 08/25/21 15:15 65 08/25/21 11:43 36.7 C 61 19 124/70 94 Nasal Cannula 08/25/21 09:30 Nasal Cannula 08/25/21 08:55 57 L 08/25/21 07:12 36.3 C L 57 L 19 110/70 98 Oxymask 08/25/21 05:23 36.6 C 57 L 15 104/66 98 O2 Flow Rate 08/25/21 15:54 5 08/25/21 15:15 08/25/21 11:43 6 08/25/21 09:30 6 08/25/21 08:55 08/25/21 07:12 12 08/25/21 05:23 Laboratory Results Short CBC 08/25/21 Range/Units 05:30 WBC 7.35 (4.8-10.8) K/ul Hgb 8.2 L (12.0-16.0) g/dl Hct 27.6 L (34.1-44.9) % Plt Count 244 (130-400) K/uL BMP 08/25/21 05:30 Sodium 138 Potassium 3.3 L Chloride 107 Carbon Dioxide 26 BUN 19 Creatinine 1.07 Glucose 132 H Calcium 8.2 L Medications Administered Current Inpatient Medications Acetaminophen (Acetaminophen 325 Mg Tab) 650 mg PO Q4H PRN PRN Reason: Pain or Fever Stop: 09/22/21 18:04 Last Admin: 08/24/21 20:43 Dose: 650 mg Aspirin (Aspirin 81 Mg Ectab) 81 mg PO DAILY SAMANTHA Stop: 09/23/21 08:59 Last Admin: 08/25/21 08:34 Dose: 81 mg Atorvastatin Calcium (Atorvastatin 40 Mg Tab) 80 mg PO HS SAMANTHA Stop: 09/22/21 20:59 Clopidogrel Bisulfate (Clopidogrel Bisulfate 75 Mg Tab) 75 mg PO DAILY SAMANTHA Stop: 09/23/21 08:59 Last Admin: 08/25/21 08:34 Dose: 75 mg Dextrose (Dextrose 50% 50 Ml Syringe) 25 - 50 ml IV UD PRN; Protocol PRN Reason: Hypoglycemia Protocol Stop: 09/22/21 18:04 Donepezil HCl (Donepezil Hcl 5 Mg Tab) 5 mg PO HS SAMANTHA Stop: 09/22/21 20:59 Last Admin: 08/24/21 20:44 Dose: 5 mg Duloxetine HCl (Duloxetine Hcl 30 Mg Cap) 30 mg PO QAM SAMANTHA Stop: 09/23/21 08:59 Last Admin: 08/25/21 08:34 Dose: 30 mg Duloxetine HCl (Duloxetine Hcl 60 Mg Cap) 60 mg PO QAM SAMANTHA Stop: 09/23/21 08:59 Last Admin: 08/25/21 08:34 Dose: 60 mg Ferrous Sulfate (Ferrous Sulfate 325 Mg Tab) 325 mg PO BIDM SAMANTHA Stop: 09/24/21 16:59 Furosemide (Furosemide 40 Mg/4 Ml Vial) 40 mg IV BID SAMANTHA Stop: 08/28/21 20:59 Gabapentin (Gabapentin 300 Mg Cap) 300 mg PO QAM SAMANTHA Stop: 09/23/21 08:59 Last Admin: 08/25/21 08:34 Dose: 300 mg Gabapentin (Gabapentin 600 Mg Tab) 600 mg PO QPM SAMANTHA Stop: 09/22/21 20:59 Last Admin: 08/24/21 20:46 Dose: 600 mg Glucagon (Glucagon For Inj 1 Mg Vial) 1 mg SQ UD PRN; Protocol PRN Reason: Hypoglycemia Protocol Stop: 09/22/21 18:04 Glucose (Glucose 40% Gel 15 Gm Tube) 15 - 30 gm PO UD PRN; Protocol PRN Reason: Hypoglycemia Protocol Stop: 09/22/21 18:04 Glucose (Glucose 10 Tab/Tube) 4 - 8 tab PO UD PRN; Protocol PRN Reason: Hypoglycemia Treatment Stop: 09/22/21 18:04 Heparin Sodium (Beef Lung) (Heparin 10 Unit/Ml 5 Ml Flush) 5 ml FLUSH PRN PRN PRN Reason: Flush Stop: 09/23/21 00:43 Last Admin: 08/25/21 15:07 Dose: 5 ml Daptomycin 500 mg/ Syringe 10 mls @ 5 mls/min IV DAILY@1500 SAMANTHA; Protocol Stop: 09/23/21 14:59 Last Admin: 08/25/21 15:07 Dose: 5 mls/min Magnesium Sulfate/Dextrose (Magnesium Sulfate / D5w) 1 gm in 100 mls @ 50 mls/hr IV ONE ONE Stop: 08/25/21 18:30 Insulin Aspart (Insulin Aspart Per Unit) 0 units SC ACHS SAMANTHA Stop: 09/22/21 20:59 Last Admin: 08/25/21 12:23 Dose: 8 units Insulin Glargine (Lantus Per Unit Charge) 35 units SQ QAM SAMANTHA Stop: 09/23/21 08:59 Last Admin: 08/25/21 08:34 Dose: 35 units Lorazepam (Lorazepam 0.5 Mg Tab) 0.5 mg PO Q8H PRN PRN Reason: Anxiety Stop: 09/22/21 18:04 Magnesium Oxide (Magnesium Oxide 400 Mg Tab) 400 mg PO BID SAMANTHA Stop: 08/29/21 08:59 Metoprolol Succinate (Metoprolol Succ 50mg Ext Rel Tab) 100 mg PO QAM SAMANTHA Stop: 09/23/21 08:59 Last Admin: 08/25/21 08:30 Dose: 100 mg Metoprolol Succinate (Metoprolol Succ 50mg Ext Rel Tab) 50 mg PO QPM SAMANTHA Stop: 09/22/21 20:59 Last Admin: 08/24/21 20:44 Dose: 50 mg Miscellaneous (Carbohydrates For Hypoglycemia ) 15 - 30 gm PO UD PRN PRN Reason: Hypoglycemia Protocol Stop: 09/22/21 18:04 Pantoprazole Sodium (Pantoprazole 40 Mg Tab) 40 mg PO DAILY SAMANTHA Stop: 09/23/21 08:59 Last Admin: 08/25/21 08:34 Dose: 40 mg Potassium Chloride (Potassium Chloride Crtab 20 Meq Tabcr) 40 meq PO NOW STA Stop: 08/25/21 16:32 Potassium Chloride (Potassium Chloride Crtab 20 Meq Tabcr) 40 meq PO BID SAMANTHA Stop: 08/29/21 08:59 Potassium Chloride (Potassium Chloride Crtab 20 Meq Tabcr) 40 meq PO ONCE ONE Stop: 08/25/21 21:01 Quetiapine Fumarate (Quetiapine Fumarate 100 Mg Tablet) 100 mg PO HS SAMANTHA Stop: 09/22/21 20:59 Last Admin: 08/24/21 20:44 Dose: 100 mg Topiramate (Topiramate 50 Mg Tab) 50 mg PO BID SAMANTHA Stop: 09/22/21 20:59 Last Admin: 08/25/21 08:30 Dose: 50 mg Tramadol HCl (Tramadol Hcl 50 Mg Tablet) 50 mg PO Q6H PRN PRN Reason: Pain Stop: 09/22/21 18:04 Last Admin: 08/25/21 07:27 Dose: 50 mg (1) Anemia Anemia type: unspecified type Qualified Code(s): D64.9 - Anemia, unspecified
[2021-08-25] MEDS: FERROUS SULFATE 325 MG TAB PO SCH (17:34)
[2021-08-25] MEDS: FUROSEMIDE 40 MG/4 ML VIAL IV SCH (20:15)
[2021-08-25] MEDS: HEPARIN SOD 5,000 UNIT/0.5 ML VIAL SQ SCH (20:16)
[2021-08-25] MEDS: QUEtiapine FUMARATE 100 MG TABLET PO SCH (20:18)
[2021-08-25] MEDS: DONEPEZIL HCL 5 MG TAB PO SCH (20:18)
[2021-08-25] MEDS: GABAPENTIN 600 MG TAB PO SCH (20:19)
[2021-08-25] MEDS ORDERED: POTASSIUM CHLORIDE CRTAB 20 MEQ TABCR PO ONE (21:00)
[2021-08-26] MEDS: traMADol HCL 50 MG TABLET PO PRN (04:40)
[2021-08-26] MEDS: HEPARIN SOD 5,000 UNIT/0.5 ML VIAL SQ SCH ×3 (05:38→19:28)
[2021-08-26 06:12] LABS: Hematocrit (blood only) 29.1 % (34.1-44.9); Hemoglobin 8.6 g/dl (12.0-16.0); Mean Corpuscular Hemoglobin 27.1 pg (25.0-34.0); Mean Corpuscular Hgb Conc 29.6 g/dL (32.0-36.0); Mean Corpuscular Volume 91.8 fL (80.0-100.0); Mean Platelet Volume 10.7 fL (9.4-12.3); Platelet Count 279 K/uL (130-400); RDW Coefficient of Variation 18.9 % (11.5-14.5); RDW Standard Deviation 61.5 fL (36.4-46.3); Red Blood Count 3.17 M/uL (3.93-5.22); White Blood Count 9.38 K/ul (4.8-10.8)
[2021-08-26 06:40] LABS: Calcium 8.7 mg/dl (8.5-10.1); Creatinine Clr Calc Pharmacy 49.3 ml/min; Est GFR (African American) 65.5 ml/min; Est GFR (Non-African American) 56.5 ml/min; Magnesium 2.2 mg/dl (1.7-2.4); Potassium 4.5 mmol/L (3.5-5.1)
[2021-08-26] MEDS: METOPROLOL SUCC 50MG EXT REL TAB PO SCH ×2 (08:23→19:30)
[2021-08-26] MEDS: DULoxetine HCL 60 MG CAP PO SCH (08:23)
[2021-08-26] MEDS: PANTOprazole 40 MG TAB PO SCH (08:23)
[2021-08-26] MEDS: TOPIRAMATE 50 MG TAB PO SCH ×2 (08:23→19:31)
[2021-08-26] MEDS: ASPIRIN 81 MG ECTAB PO SCH (08:23)
[2021-08-26] MEDS: DULoxetine HCL 30 MG CAP PO SCH (08:23)
[2021-08-26] MEDS: MAGNESIUM OXIDE 400 MG TAB PO SCH ×2 (08:23→19:30)
[2021-08-26] MEDS: CLOPIDOGREL BISULFATE 75 MG TAB PO SCH (08:23)
[2021-08-26] MEDS: GABAPENTIN 300 MG CAP PO SCH (08:23)
[2021-08-26] MEDS: INSULIN ASPART PER UNIT SC SCH ×4 (08:27→19:27)
[2021-08-26] MEDS: FERROUS SULFATE 325 MG TAB PO SCH ×2 (08:29→17:39)
[2021-08-26] MEDS: FUROSEMIDE 40 MG/4 ML VIAL IV SCH ×2 (08:29→19:31)
[2021-08-26] MEDS: POTASSIUM CHLORIDE CRTAB 20 MEQ TABCR PO SCH (08:42)
[2021-08-26] MEDS: LANTUS PER UNIT CHARGE SQ SCH (08:42)
[2021-08-26] MEDS ORDERED: POTASSIUM CHLORIDE CRTAB 20 MEQ TABCR PO SCH (09:00)
--- NOTE | 2021-08-26 12:33 | Hospitalist Progress Note ---
Date of Service August 26, 2021 Assessment & Plan (1) Anemia: Plan: Hgb 6.7 on admission. No active bleed. Baseline 8-9 Admitted in June 2021 for acute on chronic anemia due to suspected upper GI bleeding. EGD 07/13/2021 showed normal esophagus, normal stomach, normal duodenum. Outpatient colonoscopy was recommended however has not been completed at this time. Likely anemia of chronic disease due to recurrent endocarditis -s/p 2 unit PRBC with appropriate response -iron deficiency, start PO iron (2) Acute on chronic HFrEF (heart failure with reduced ejection fraction): Plan: EF 45%e CTA chest shows bilateral pleural effusions and evidence of pulmonary edema Still volume overloaded--start lasix 40mg IV BID 08/25 (3) Hypoxia: Plan: Acute hypoxic respiratory failure -not on home oxygen -likely due to CHF and/or underlying COPD with her long smoking history -wean oxygen as tolerated, may need 2 step on day of discharge to determine if home oxygen is needed (4) MRSA bacteremia: (5) Endocarditis: (6) Abscess of aorta: Plan: 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 Recently discharged from [facility] on IV daptomycin with stop date of 09/23/2021 Needs to follow-up with vascular surgery with CT angiogram of the abdomen in 4 weeks (7) Coronary artery disease: Plan: Continue ASA, Plavix, beta-raymond Hold statin while on daptomycin (8) Diabetes mellitus, type 2: Plan: Hgb A1c 6.1 07/2021 Lantus and NovoLog per protocol while hospitalized (9) HTN (hypertension): Plan: BP controlled Hold lisinopril for now, BP normotensive Continue metoprolol (10) DVT prophylaxis: Plan: SQ heparin Plan Disposition -return home when oxygen weaned down/off Admission and Anticipated Discharge Date Admission Date: August 23, 2021 Subjective Feels well Oxygen weaned down to 4L NC Physical Exam Physical Exam: Pleasant, comfortable, no acute distress Respiratory: +crackles at bases, no wheezing/rhonchi/rales Cardiovascular: regular rate and rhythm, no murmurs/rubs/gallops Gastrointestinal (Abdomen): soft, non tender, non distended Musculoskeletal: left AKA, no lower extremity edema Neurologic: awake, alert, spontaneously moving extremities Results & Data Results & Data ([facility]) Vital Signs (Past 12 Hours) Vital Signs Temp Pulse Resp BP Pulse Ox O2 Del Method O2 Flow Rate 08/26/21 11:47 36.4 C L 64 115/61 90 Nasal Cannula 4 08/26/21 08:00 Nasal Cannula 4 08/26/21 08:07 36.6 C 64 20 105/60 94 Nasal Cannula 4 08/26/21 02:44 36.7 C 60 18 118/72 93 Nasal Cannula 5 Laboratory Results Short CBC 08/26/21 Range/Units 05:48 WBC 9.38 (4.8-10.8) K/ul Hgb 8.6 L (12.0-16.0) g/dl Hct 29.1 L (34.1-44.9) % Plt Count 279 (130-400) K/uL BMP 08/26/21 05:48 Sodium 137 Potassium 4.5 D Chloride 107 Carbon Dioxide 26 BUN 22 Creatinine 1.05 Glucose 110 H Calcium 8.7 Medications Administered Current Inpatient Medications Acetaminophen (Acetaminophen 325 Mg Tab) 650 mg PO Q4H PRN PRN Reason: Pain or Fever Stop: 09/22/21 18:04 Last Admin: 08/24/21 20:43 Dose: 650 mg Aspirin (Aspirin 81 Mg Ectab) 81 mg PO DAILY SAMANTHA Stop: 09/23/21 08:59 Last Admin: 08/26/21 08:23 Dose: 81 mg Atorvastatin Calcium (Atorvastatin 40 Mg Tab) 80 mg PO HS SAMANTHA Stop: 09/22/21 20:59 Clopidogrel Bisulfate (Clopidogrel Bisulfate 75 Mg Tab) 75 mg PO DAILY SAMANTHA Stop: 09/23/21 08:59 Last Admin: 08/26/21 08:23 Dose: 75 mg Dextrose (Dextrose 50% 50 Ml Syringe) 25 - 50 ml IV UD PRN; Protocol PRN Reason: Hypoglycemia Protocol Stop: 09/22/21 18:04 Donepezil HCl (Donepezil Hcl 5 Mg Tab) 5 mg PO HS SAMANTHA Stop: 09/22/21 20:59 Last Admin: 08/25/21 20:18 Dose: 5 mg Duloxetine HCl (Duloxetine Hcl 30 Mg Cap) 30 mg PO QAM SAMANTHA Stop: 09/23/21 08:59 Last Admin: 08/26/21 08:23 Dose: 30 mg Duloxetine HCl (Duloxetine Hcl 60 Mg Cap) 60 mg PO QAM SAMANTHA Stop: 09/23/21 08:59 Last Admin: 08/26/21 08:23 Dose: 60 mg Ferrous Sulfate (Ferrous Sulfate 325 Mg Tab) 325 mg PO BIDM [facility] Stop: 09/24/21 16:59 Last Admin: 08/26/21 08:29 Dose: 325 mg Furosemide (Furosemide 40 Mg/4 Ml Vial) 40 mg IV BID SAMANTHA Stop: 08/28/21 20:59 Last Admin: 08/26/21 08:29 Dose: 40 mg Gabapentin (Gabapentin 300 Mg Cap) 300 mg PO QAM SAMANTHA Stop: 09/23/21 08:59 Last Admin: 08/26/21 08:23 Dose: 300 mg Gabapentin (Gabapentin 600 Mg Tab) 600 mg PO QPM SAMANTHA Stop: 09/22/21 20:59 Last Admin: 08/25/21 20:19 Dose: 600 mg Glucagon (Glucagon For Inj 1 Mg Vial) 1 mg SQ UD PRN; Protocol PRN Reason: Hypoglycemia Protocol Stop: 09/22/21 18:04 Glucose (Glucose 40% Gel 15 Gm Tube) 15 - 30 gm PO UD PRN; Protocol PRN Reason: Hypoglycemia Protocol Stop: 09/22/21 18:04 Glucose (Glucose 10 Tab/Tube) 4 - 8 tab PO UD PRN; Protocol PRN Reason: Hypoglycemia Treatment Stop: 09/22/21 18:04 Heparin Sodium (Beef Lung) (Heparin 10 Unit/Ml 5 Ml Flush) 5 ml FLUSH PRN PRN PRN Reason: Flush Stop: 09/23/21 00:43 Last Admin: 08/25/21 15:07 Dose: 5 ml Heparin Sodium (Porcine) (Heparin Sod 5,000 Unit/0.5 Ml Vial) 5,000 units SQ Q8 SAMANTHA Stop: 09/24/21 21:59 Last Admin: 08/26/21 05:38 Dose: 5,000 units Daptomycin 500 mg/ Syringe 10 mls @ 5 mls/min IV DAILY@1500 SAMANTHA; Protocol Stop: 09/23/21 14:59 Last Admin: 08/25/21 15:07 Dose: 5 mls/min Insulin Aspart (Insulin Aspart Per Unit) 0 units SC ACHS [facility] Stop: 09/22/21 20:59 Last Admin: 08/26/21 12:14 Dose: 6 units Insulin Glargine (Lantus Per Unit Charge) 35 units SQ QAM SAMANTHA Stop: 09/23/21 08:59 Last Admin: 08/26/21 08:42 Dose: 35 units Lorazepam (Lorazepam 0.5 Mg Tab) 0.5 mg PO Q8H PRN PRN Reason: Anxiety Stop: 09/22/21 18:04 Magnesium Oxide (Magnesium Oxide 400 Mg Tab) 400 mg PO BID SAMANTHA Stop: 08/29/21 08:59 Last Admin: 08/26/21 08:23 Dose: 400 mg Metoprolol Succinate (Metoprolol Succ 50mg Ext Rel Tab) 100 mg PO QAM SAMANTHA Stop: 09/23/21 08:59 Last Admin: 08/26/21 08:23 Dose: 100 mg Metoprolol Succinate (Metoprolol Succ 50mg Ext Rel Tab) 50 mg PO QPM SAMANTHA Stop: 09/22/21 20:59 Last Admin: 08/25/21 20:19 Dose: 50 mg Miscellaneous (Carbohydrates For Hypoglycemia ) 15 - 30 gm PO UD PRN PRN Reason: Hypoglycemia Protocol Stop: 09/22/21 18:04 Pantoprazole Sodium (Pantoprazole 40 Mg Tab) 40 mg PO DAILY SAMANTHA Stop: 09/23/21 08:59 Last Admin: 08/26/21 08:23 Dose: 40 mg Potassium Chloride (Potassium Chloride Crtab 20 Meq Tabcr) 40 meq PO DAILY SAMANTHA Stop: 08/29/21 08:59 Last Admin: 08/26/21 08:42 Dose: 40 meq Quetiapine Fumarate (Quetiapine Fumarate 100 Mg Tablet) 100 mg PO HS SAMANTHA Stop: 09/22/21 20:59 Last Admin: 08/25/21 20:18 Dose: 100 mg Topiramate (Topiramate 50 Mg Tab) 50 mg PO BID SAMANTHA Stop: 09/22/21 20:59 Last Admin: 08/26/21 08:23 Dose: 50 mg Tramadol HCl (Tramadol Hcl 50 Mg Tablet) 50 mg PO Q6H PRN PRN Reason: Pain Stop: 09/22/21 18:04 Last Admin: 08/26/21 04:40 Dose: 50 mg (1) Anemia Anemia type: unspecified type Qualified Code(s): D64.9 - Anemia, unspecified
[2021-08-26] MEDS: DAPTOmycin 500 MG in SYRINGE 0 ML IV SCH (14:47)
[2021-08-26] MEDS: QUEtiapine FUMARATE 100 MG TABLET PO SCH (19:30)
[2021-08-26] MEDS: GABAPENTIN 600 MG TAB PO SCH (19:30)
[2021-08-26] MEDS: DONEPEZIL HCL 5 MG TAB PO SCH (19:31)
[2021-08-27] MEDS: traMADol HCL 50 MG TABLET PO PRN (02:57)
[2021-08-27] MEDS: HEPARIN SOD 5,000 UNIT/0.5 ML VIAL SQ SCH ×2 (05:49→13:26)
[2021-08-27 06:46] LABS: Calcium 8.7 mg/dl (8.5-10.1); Creatinine Clr Calc Pharmacy 43.3 ml/min; Est GFR (African American) 56.3 ml/min; Est GFR (Non-African American) 48.5 ml/min; Magnesium 2.1 mg/dl (1.7-2.4); Potassium 4.1 mmol/L (3.5-5.1)
[2021-08-27] MEDS: MAGNESIUM OXIDE 400 MG TAB PO SCH (08:19)
[2021-08-27] MEDS: DULoxetine HCL 60 MG CAP PO SCH (08:19)
[2021-08-27] MEDS: CLOPIDOGREL BISULFATE 75 MG TAB PO SCH (08:19)
[2021-08-27] MEDS: TOPIRAMATE 50 MG TAB PO SCH (08:19)
[2021-08-27] MEDS: FUROSEMIDE 40 MG/4 ML VIAL IV SCH (08:19)
[2021-08-27] MEDS: ASPIRIN 81 MG ECTAB PO SCH (08:19)
[2021-08-27] MEDS: FERROUS SULFATE 325 MG TAB PO SCH ×2 (08:19→17:01)
[2021-08-27] MEDS: PANTOprazole 40 MG TAB PO SCH (08:19)
[2021-08-27] MEDS: DULoxetine HCL 30 MG CAP PO SCH (08:20)
[2021-08-27] MEDS: METOPROLOL SUCC 50MG EXT REL TAB PO SCH (08:20)
[2021-08-27] MEDS: GABAPENTIN 300 MG CAP PO SCH (08:20)
[2021-08-27] MEDS: INSULIN ASPART PER UNIT SC SCH ×3 (08:21→17:01)
[2021-08-27] MEDS: POTASSIUM CHLORIDE CRTAB 20 MEQ TABCR PO SCH (08:25)
[2021-08-27] MEDS: LANTUS PER UNIT CHARGE SQ SCH (08:25)
--- NOTE | 2021-08-27 10:25 | XRay Report ---
XR chest 1V portable CLINICAL HISTORY: follow up pleural effusion, CHF TECHNIQUE: Single frontal radiograph of the chest was obtained. Comparison: Comparison is made to chest radiograph 08/23/2021 FINDINGS: Median sternotomy wires are unchanged. Right PICC is unchanged in position. Cardiomegaly is noted. Th e lungs are clear. Small bilateral pleural effusions are seen. IMPRESSION: Stable small bilateral pleural effusion. ACT 112: Negative or not required by law. Electronically signed by: Johny Ferrer M.D. 08/27/2021 10:24 AM
--- NOTE | 2021-08-27 14:06 | Discharge Summary ---
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 Noted patient has had several hospitalizations over the past several months. Recently discharged from [facility] on 08/12/2021 where she was admitted for recurrent MRSA bacteremia, periaortic abscess, suspected endocarditis. Patient previously on IV vancomycin for treatment of MRSA bacteremia however given recurrence, patient was placed on IV daptomycin. PICC line was placed at [facility] and patient is to continue IV daptomycin until 09/23/2021. Patient notes being on oxygen during her hospitalizations since May. When she was discharged from [facility], home oxygen was not arranged for her. Patient reports that overnight, she woke up out of sleep and felt suddenly short of breath and had a substernal chest pain. Patient rates the pain #8/10 and describes it as sharp. She reports both of her arms were aching as well. Patient reports taking 2 sublingual nitroglycerin with improvement in chest discomfort. She reports taking some slow deep breaths which help with her shortness of breath. Patient saw her PCP today and was sent for labs that showed Hgb 6.5. Patient was then referred to the ED for further evaluation. Patient denies fevers and chills. No lightheadedness, dizziness, diaphoresis, syncopal events. She denies abdominal pain, nausea, vomiting, diarrhea, bright red bleeding per rectum, dark tarry stools. No urinary symptoms. The ED, labs show Hgb 6.7. HR and BP stable. Patient was found to be 85% on room air and is currently saturating well on 3 L of oxygen via nasal cannula. Patient was typed and crossed for 2 unit PRBC. Principal Diagnosis Acute on chronic anemia Acute hypoxic respiratory failure Acute on chronic systolic CHF Discharge Exam Patient felt well. Denies chest pain, shortness of breath. Looking forward to going home. On exam, appears in no acute distress. CV- regular rate and rhythm, no murmurs/rubs/gallops. Pulm- breathing comfortably on nasal canula, no wheezing/rhonchi, diminished at bases. No leg swelling Discharge Data Allergies Allergy/AdvReac Type Severity Reaction Status Date / Time latex Allergy Intermediate Rash Verified 08/23/21 16:31 aspirin Allergy Unknown UNKNOWN Verified 08/23/21 16:31 Consultations 08/23/21 15:51 ED Decision to Admit Stat Ordered Studies 08/23/21 16:50 CT angio chest PE protocol Routine Hospital Course (1) Anemia: (2) Acute on chronic HFrEF (heart failure with reduced ejection fraction): (3) Hypoxia: (4) MRSA bacteremia: (5) Endocarditis: (6) Abscess of aorta: (7) Coronary artery disease: (8) Diabetes mellitus, type 2: (9) HTN (hypertension): (10) DVT prophylaxis: SQ heparin Plan Ms Rizwana Welch is a 61 year old female with history of chronic systolic CHF (EF 40-45%), chronic anemia (baseline Hb 8-9), current smoker who was recently discharged from [facility] for MRSA endocarditis and periaortic abscess who is currently on IV daptomycin until 09/23/2021. She was sent to [facility] ER 08/23 for outpatient labwork which revealed worsening anemia. Upon arrival, hemoglobin was 6.7 for which she received 2 units packed RBC with appropriate response. She did not have evidence of bleed and her worsening anemia is likely due to her active infection and recent hospitalization. She was noted to have iron deficiency and started on oral supplement. She should follow up with her PCP to evaluate for chronic anemia (colonoscopy) if not already done. Upon arrival, she was noted to be hypoxic with O2 sat 85% on RA. CXR shows bilateral pleural effusion and increased interstitial edema suggestive of CHF. While here, she required up to 12L oxymask. She received parenteral diuresis and was weaned down to 2L NC at time of discharge. Prior to discharge, she had a 2 step and qualifies for 2L NC. Patient has a long history of smoking and likely has underlying COPD. She has reduced her smoking significantly in recent years and is ready to quite smoking altogether. She was warned about the danger of smoking or having open flame near her oxygen and she expresses understanding and plans to quit smoking after discharge. She was discharged home in stable condition, resumed on her home medications. Home health was also resumed to continue her Daptomycin infusions. Home Health Attestation I certify that this patient is under my care and that I, or a physicians hotel assistant manager working with me, had a face to-face encounter that meets the home health [id number] encounter requirements with this patient. The encounter with the patient was in whole, or in part, for the following medical condition, which is the primary reason for home health care (list medical condition): I certify that, based on my findings, the following services are medically necessary home health services: My clinical findings support the need for the above services because: Further, I certify that my clinical findings support that this patient is homebound (i.e. absences from home require considerable and taxing effort and are for medical reasons or mandaeism services or infrequently or of short duration when for other reasons) because: Certification for Home Health Services: Based on the above findings, I certify that this patient is confined to the home and needs intermittent residential care, physical therapy and/or speech therapy or continues to need occupational therapy. The patient is under my care, and I have initiated the establishment of the plan of care. This patient will be followed by a physician who will periodically review the plan of care. Total Time Total Time Spent Total Time Spent (In Minutes): 45 Discharge Plan Discharge Items Patient Disposition: Home - Home Health Services Reason For Visit: ANEMIA, HYPOXIA Discharge Diagnosis: Acute on chronic anemia Acute hypoxic respiratory failure Acute on chronic systolic CHF Condition on Discharge: Fair Activity: Resume your previous activity Non-emergency contact: Primary Care Provider and [employer] Call non-emergency contact if: you have any medication questions Follow-up/Referrals: Christiano Simon PA-C [Primary Care Provider] - 09/02/21 11:30 am Diet: Heart Healthy Fluids: 1800ml (7 cups) Addtl Attending Provider Instructions: You were admitted for anemia. You received 2 units of blood here. Your anemia is likely related to your current infection. You did not have evidence of bleed While here, you were noted to require oxygen and imaging of your lungs shows congestive heart failure (fluid) for which you received lasix intravenous. At the time of discharge, you will continue lasix 60mg daily. You were also set up for home oxygen. It is important you do not smoke with oxygen and you avoid open flames near your oxygen since this may cause fire and/or explosion Please follow up with your PCP and [employer] within 1-2 weeks. Pending Studies at Discharge: No Stand-Alone Forms: My [facility], Smoking Cessation Medications and DC Order Prescriptions: New ferrous sulfate 325 mg (65 mg iron) Tablet,Delayed Release (Dr/Ec) 325 mg PO BIDM 30 Days Qty: 60 0RF Continued atorvastatin 80 mg tablet 80 mg PO HS metoprolol succinate 50 mg tablet extended release 24 hr See Rx Instructions .ROUTE .COMPLEX Rx Instructions: 50 mg orally; TAKES 100 MG QAM, THEN 50 MG QPM. clopidogrel 75 mg tablet 75 mg PO DAILY lisinopril 10 mg tablet 10 mg PO DAILY topiramate 50 mg tablet 50 mg PO BID duloxetine 30 mg capsule,delayed release(DR/EC) 30 mg PO QAM Rx Instructions: TOTAL DOSE 90 MG--TAKE WITH 60 MG CAP. duloxetine 60 mg capsule,delayed release(DR/EC) 60 mg PO QAM Rx Instructions: TOTAL DOSE 90 MG--TAKE WITH 30 MG CAP. multivitamin with folic acid [Daily-Hardik (with folic acid)] 400 mcg Tablet 1 tab PO QAM Qty: 30 0RF aspirin 81 mg Tablet,Delayed Release (Dr/Ec) 81 mg PO DAILY nitroglycerin 0.4 mg tablet, sublingual 0.4 mg sublingual .PRN/UD PRN (Reason: Chest Pain) Rx Instructions: NEEDED FOR CHEST PAIN : ONE TABLET UNDER THE TONGUE EVERY 5 MINUTES UP TO THREE DOSES. insulin aspart U-100 [Novolog Flexpen U-100 Insulin] 100 unit/mL (3 mL) Insulin Pen 0 unit SUBCUT TID MDD 72 UNITS/DAY. Rx Instructions: PER SLIDING SCALE tramadol 50 mg Tablet 50 mg PO Q6H PRN (Reason: Pain) donepezil 5 mg tablet 5 mg PO HS quetiapine [Seroquel] 100 mg Tablet 100 mg PO HS acetaminophen [Tylenol Extra Strength] 500 mg Tablet 500 mg PO Q6H PRN (Reason: Pain) lorazepam 0.5 mg Tablet 0.5 mg PO Q8H MDD 3 TABS/DAILY PRN (Reason: Anxiety) conjugated estrogens 0.625 mg/gram Cream 0.625 mg VAGINAL HS gabapentin 300 mg capsule See Rx Instructions .ROUTE .COMPLEX Rx Instructions: 300 mg; TAKES 300 MG QAM, THEN 600 MG QHS. omeprazole 20 mg Capsule,Delayed Release(Dr/Ec) 20 mg PO DAILY furosemide [Lasix] 20 mg Tablet 60 mg PO DAILY daptomycin 500 mg Recon Soln 500 mg IV DAILY insulin glargine [Basaglar KwikPen U-100 Insulin] 100 unit/mL (3 mL) Insulin Pen 35 unit SUBCUT QAM Discharge Orders: Discharge Order (Routine); Ordered 08/27/21 Ordered By: Barbara Aragon/Other Patient Handouts: Staying Smoke-Free, Heart Failure Dc Admission Data Admit Date/Time: 08/23/21 16:23 Attending Provider: Barbara Garcia Admit Provider: Ezekiel Herrera Primary Care Provider: Christiano Simon Other Providers: Ezekiel Herrera ; Vivian Faulkner ; Heladio,Home Health Other Interventions: Discharge Summary Assessment (RN) Last Done: 08/27/21 14:44
[2021-08-27] MEDS: DAPTOmycin 500 MG in SYRINGE 0 ML IV SCH (14:59)
== END 2021-08-27 17:59 | disposition home health service (06) | DRG 871 ==
LOC: ED 15:06 → 2S 16:23 → SUATTDRO 16:23 → 2S 17:26
DX: Z86.14 Personal history of Methicillin resistant Staphylococcus aureus infection; Z86.19 Personal history of other infectious and parasitic diseases; J96.01 Acute respiratory failure with hypoxia; I50.23 Acute on chronic systolic (congestive) heart failure; Z91.040 Latex allergy status; I25.10 Atherosclerotic heart disease of native coronary artery without angina pectoris; Z95.1 Presence of aortocoronary bypass graft; I33.0 Acute and subacute infective endocarditis; F17.210 Nicotine dependence, cigarettes, uncomplicated; J44.9 Chronic obstructive pulmonary disease, unspecified; Z79.890 Hormone replacement therapy; E11.9 Type 2 diabetes mellitus without complications; A41.02 Sepsis due to Methicillin resistant Staphylococcus aureus; Z89.512 Acquired absence of left leg below knee; Z79.02 Long term (current) use of antithrombotics/antiplatelets; Z79.2 Long term (current) use of antibiotics; R07.2 Precordial pain; D63.8 Anemia in other chronic diseases classified elsewhere; Z79.4 Long term (current) use of insulin; I77.89 Other specified disorders of arteries and arterioles; Z79.899 Other long term (current) drug therapy; Z86.79 Personal history of other diseases of the circulatory system; Z88.6 Allergy status to analgesic agent; E61.1 Iron deficiency; Z79.82 Long term (current) use of aspirin; I11.0 Hypertensive heart disease with heart failure

== ENCOUNTER 2022-08-02 10:15 | Inpatient (IN) ==
[2022-08-02] MEDS ORDERED: ONDANSETRON INJ 2 MG/ML 2 ML VIAL ONE (10:29)
[2022-08-02] MEDS ORDERED: SODIUM CHLORIDE 0.9% 1000ML 2,000 ML IV ONE (10:39)
[2022-08-02] MEDS ORDERED: cefTRIAXone SODIUM 2,000 MG/70 ML BAG IV STA (10:46)
--- NOTE | 2022-08-02 11:02 | XRay Report ---
SINGLE VIEW CHEST CLINICAL HISTORY: Sepsis. FINDINGS: An AP, portable, upright chest radiograph is compared to study dated 08/27/2021 and correlat ed with chest CT dated 08/23/2021. The patient is status post midline sternotomy. The heart is enlarge d noting atherosclerotic calcification of the thoracic aorta. The pulmonary vasculature is noncongest ed. Chronic interstitial thickening is similar to previous. There is mild bibasilar scarring/atelecta sis. No airspace consolidation or large pleural effusion is identified. No pneumothorax is seen. The skeletal structures are osteopenic. The bony thorax is grossly intact. Cholecystectomy clips are seen in the right upper quadrant. IMPRESSION: Cardiomegaly with no active disease in the chest. ACT 112: Negative or not required by law. Electronically signed by: Geovani Dumont M.D. 08/02/2022 11:00 AM
--- NOTE | 2022-08-02 11:04 | Emergency Department Note ---
Impression & Plan SIRS (systemic inflammatory response syndrome), Cough, Leukocytosis, Hypokalemia, Elevated lactic acid level, Elevated troponin ED Provider Note NAME: MARSHA WILDE AGE: 62 SEX: F : 1960 ARRIVES VIA: Ambulance INFORMANT: Patient ED PROVIDER(S): Roni Hanks DO CHIEF COMPLAINT: weak HPI: Patient is a 62-year-old female with a past medical history heart failure w ith preserved ejection fraction, endocarditis, hypoxia, GERD with an EF of 40% who presents to the ER for not feeling well for the past 3 to 4 days. She notes that she has been nausea but no vomiting. She normally just wears 3 L at night. She admits to a more productive cough than typical and does have shortness of breath. No headache or change in vision. No chest pain. No dysuria, urgency, or frequency. No other exacerbating or remitting factors. PAST MEDICAL HISTORY:See Below PAST SURGICAL HISTORY:See Below FAMILY HISTORY:See Below SOCIAL HISTORY:See Below HOME MEDICATIONS:See Below ALLERGIES:See Below VITALS:See Below PHYSICAL EXAMINATION: GENERAL: Sitting up in bed, alert, chronically ill-appearing, disheveled, intermittent cough EYE EXAM: normal conjunctiva. OROPHARYNX: mucous membranes are moist NECK: non-tender LUNGS: Clear to auscultation. Normal chest wall mechanics HEART: no murmurs, S1 normal and S2 normal ABDOMEN: abdomen soft, non-tender, normo-active bowel sounds, no masses, no rebound or guarding. BACK: Back is symmetrical on inspection and there is no deformity, no midline tenderness, no CVA tenderness. UPPER EXTREMITIES: upper extremities are grossly normal. LOWER EXTREMITIES: No pitting edema. NEURO EXAM: Normal sensorium, cranial nerves II-XII grossly intact, normal speech, no gross weakness of arms, no gross weakness of legs. MEDICAL DECISION MAKING: Patient is a 62-year-old female who presents ER for above-stated complaint. IV was established blood work was obtained. External records were reviewed. Labs show mild leukocytosis of 11,000. No significant anemia. INR unremarkable. BMP with mild hyponatremia at 131. Mild hypokalemia 3.4. Lactate was elevated at 2.6. Troponin mildly elevated at 86. Pro-Jesus negative. UA was cont aminated. Doubt infection. COVID-negative. CT abdomen pelvis showed no acute pathology. Patient was given 2 L of IV fluids but with the history of heart failure was not given anything more. Lactate did trend down. Was given IV antibiotics. She was updated bedside. Discussed with the hospitalist admitted for further work-up of her SIRS with unclear origin although I do favor that this likely viral with the worsening productive cough. Triage Nursing notes reviewed. Limited review of prior medical records performed Vital Signs: reviewed and remarkable for HTN, tachy and febrile Differential diagnosis: Differential diagnosis includes etiologies such as sepsis, UTI, pneumonia, metabolic, electrolyte abnormalities, cardiac sources, intracerebral event, toxicologic, neurological, as well as others were entertained. ER treatment provided: See below Diagnostics interpreted by me include EKG and cardiac monitoring as listed below: -Cardiac Monitoring: An order was placed for continuous cardiac monitoring. The monitor shows a rate of 110 with sinus rhythm. -ECG: Sinus tachycardia rate of 112 Left axis No PVCs QTc 532 Right bundle branch block -Laboratory studies:Interpreted by me as stated above in MDM and shown below. Imaging studies: Xrays: As interpreted by me: Portable AP upright 1 view of the chest shows no focal infiltrate CTs show: CT abdomen pelvis shows no obvious obstruction Consultation(s): As described in MDM Procedures:none Critical Care: None Past Med/Surg History Medical History (Updated 08/02/22 @ 14:05 by Roni Hanks DO) Abscess of aorta Acute on chronic HFrEF (heart failure with reduced ejection fraction) Anxiety Carotid stenosis according to records from 2019 CEA was recommended but patient declined. no objective quantification available Carpal tunnel syndrome, left Chronic congestive heart failure with left ventricular diastolic dysfunction Coronary artery disease Diabetes mellitus, type 2 DVT prophylaxis Encounter for pre-operative examination Fracture of left tibial plateau HFrEF (heart failure with reduced ejection fraction) History of left below knee amputation HTN (hypertension) LBBB (left bundle branch block) MRSA bacteremia Osteomyelitis Psychotic disorder Right foot pain Tobacco use disorder Ulnar neuropathy at elbow of left upper extremity Surgical History Status post cholecystectomy Status post coronary artery bypass grafting Status post hysterectomy Status post ORIF of fracture of ankle R, 2017 Family History Other Diabetes Heart disease Social History Smoking Status: Current every day smoker Tobacco Type: Cigarettes packs per day: 1; Cigarettes Per Day: 10; Second Hand Exposure: No; Do You Dip or Chew Tobacco: No; Hx Alcohol Use: No Hx Substance Use: No Preferred Language: Icelandic Communication Ability: Effective Communications Engineer Required: No Beliefs That Will Affect Care: None marital status: Current Living Situation: Other Current Living Situation Comment: Friend Feels Safe at Home: Yes Assistive Devices: Cane, Walker and Wheelchair Allergies Allergies Allergy/AdvReac Type Severity Reaction Status Date / Time latex Allergy Intermediate Rash Verified 04/28/22 13:20 aspirin Allergy Unknown UNKNOWN Verified 04/28/22 13:20 Home Meds Home Medications Medication Instructions Recorded Confirmed atorvastatin 80 mg tablet 80 mg PO HS 03/16/21 08/23/21 clopidogrel 75 mg tablet 75 mg PO DAILY 03/16/21 08/02/22 duloxetine 30 mg capsule,delayed 30 mg PO QAM 03/16/21 08/23/21 release duloxetine 60 mg capsule,delayed 60 mg PO QAM 03/16/21 08/02/22 release lisinopril 10 mg tablet 10 mg PO DAILY 03/16/21 08/02/22 metoprolol succinate 50 mg See Rx Instructions .Route .COMPLEX 03/16/21 08/02/22 tablet,extended release 24 hr topiramate 50 mg tablet 50 mg PO BID 03/16/21 08/02/22 aspirin 81 mg tablet,delayed 81 mg PO DAILY 05/14/21 08/23/21 release insulin aspart U-100 100 unit/mL 0 unit subcut TID 05/14/21 08/23/21 (3 mL) subcutaneous pen (Novolog FlexPen U-100 Insulin aspart) nitroglycerin 0.4 mg sublingual 0.4 mg sublingual .PRN/UD PRN 05/14/21 08/23/21 tablet Chest Pain tramadol 50 mg tablet 50 mg PO Q6H PRN Pain 07/28/21 08/23/21 acetaminophen 500 mg tablet 500 mg PO Q6H PRN Pain 08/23/21 08/23/21 (Tylenol Extra Strength) conjugated estrogens 0.625 mg/gram 0.625 mg vaginal HS 08/23/21 08/23/21 vaginal cream daptomycin 500 mg intravenous 500 mg IV DAILY 08/23/21 08/23/21 solution donepezil 5 mg tablet 5 mg PO HS 08/23/21 08/02/22 furosemide 20 mg tablet (Lasix) 60 mg PO DAILY 08/23/21 08/23/21 gabapentin 300 mg capsule See Rx Instructions .Route .COMPLEX 08/23/21 08/02/22 insulin glargine 100 unit/mL (3 35 unit subcut QAM 08/23/21 08/23/21 mL) subcutaneous pen (Basaglar KwikPen U-100 Insulin) lorazepam 0.5 mg tablet 0.5 mg PO Q8H PRN Anxiety 08/23/21 08/23/21 omeprazole 20 mg capsule,delayed 20 mg PO DAILY 08/23/21 08/23/21 release quetiapine 100 mg tablet (Seroquel) 100 mg PO HS 08/23/21 08/23/21 cetirizine 10 mg tablet (Zyrtec) 10 mg PO DAILY 08/02/22 08/02/22 ergocalciferol (vitamin D2) 1,250 1,250 mcg PO WK 08/02/22 08/02/22 mcg (50,000 unit) capsule (Vitamin D2) olanzapine 7.5 mg tablet 7.5 mg PO HS 08/02/22 08/02/22 Previous Rx's Medication Instructions Recorded multivitamin with folic acid 400 1 tab PO QAM #30 tabs 03/29/21 mcg tablet (Daily-Hardik (with folic acid)) oxycodone-acetaminophen 5 mg-325 1 tab PO Q6H PRN pain #20 tabs 02/04/22 mg tablet (Percocet) diclofenac sodium 1 % topical gel 1 g topical QID #100 grams 02/10/22 Results & Data (ED) Vital Signs Vital Signs - 24 hr 08/02/22 10:19 08/02/22 10:20 08/02/22 10:44 Temperature 37.8 C H Temperature Source Axillary Pulse Rate 113 H 113 H Pulse Rate [Apical] 112 H Pulse Rate from SpO2 Sensor Pulse Rhythm [Apical] Regular Respiratory Rate 20 19 Respiratory Effort / Characteristics Short of Breath Blood Pressure 131/101 H Blood Pressure [Left Arm] 140/110 H Blood Pressure Mean 111 Blood Pressure Mean [Left Arm] 120 Pulse Oximetry 100 95 Oxygen Delivery Method Nasal Cannula Nasal Cannula Oxygen Flow Rate 3 3 Sepsis Recent Fever Within 48 Hours Yes Sepsis New/Unexplained Change in Mental Status No Sepsis Action Taken by Nursing No Action Required 08/02/22 10:18 08/02/22 10:20 08/02/22 10:30 Temperature Temperature Source Pulse Rate 114 H 118 H 104 H Pulse Rate [Apical] Pulse Rate from SpO2 Sensor 114 H 116 H 105 H Pulse Rhythm [Apical] Respiratory Rate 22 20 14 Respiratory Effort / Characteristics Blood Pressure Blood Pressure [Left Arm] Blood Pressure Mean Blood Pressure Mean [Left Arm] Pulse Oximetry 100 100 100 Oxygen Delivery Method Oxygen Flow Rate Sepsis Recent Fever Within 48 Hours Sepsis New/Unexplained Change in Mental Status Sepsis Action Taken by Nursing 08/02/22 10:40 08/02/22 10:50 08/02/22 11:00 Temperature Temperature Source Pulse Rate 110 H 108 H Pulse Rate [Apical] Pulse Rate from SpO2 Sensor 108 H 109 H 125 H Pulse Rhythm [Apical] Respiratory Rate 23 13 Respiratory Effort / Characteristics Blood Pressure Blood Pressure [Left Arm] Blood Pressure Mean Blood Pressure Mean [Left Arm] Pulse Oximetry 99 100 100 Oxygen Delivery Method Oxygen Flow Rate Sepsis Recent Fever Within 48 Hours Sepsis New/Unexplained Change in Mental Status Sepsis Action Taken by Nursing 08/02/22 11:10 08/02/22 11:12 08/02/22 11:12 Temperature Temperature Source Pulse Rate 114 H 106 H Pulse Rate [Apical] Pulse Rate from SpO2 Sensor 114 H 107 H Pulse Rhythm [Apical] Respiratory Rate 15 23 Respiratory Effort / Characteristics Blood Pressure 162/88 H Blood Pressure [Left Arm] Blood Pressure Mean 118 Blood Pressure Mean [Left Arm] Pulse Oximetry 99 99 Oxygen Delivery Method Oxygen Flow Rate Sepsis Recent Fever Within 48 Hours Sepsis New/Unexplained Change in Mental Status Sepsis Action Taken by Nursing 08/02/22 11:20 08/02/22 11:52 08/02/22 12:00 Temperature Temperature Source Pulse Rate 108 H 135 H 110 H Pulse Rate [Apical] Pulse Rate from SpO2 Sensor 111 H Pulse Rhythm [Apical] Respiratory Rate 18 15 13 Respiratory Effort / Characteristics Blood Pressure Blood Pressure [Left Arm] Blood Pressure Mean Blood Pressure Mean [Left Arm] Pulse Oximetry 99 Oxygen Delivery Method Oxygen Flow Rate Sepsis Recent Fever Within 48 Hours Sepsis New/Unexplained Change in Mental Status Sepsis Action Taken by Nursing 08/02/22 12:10 08/02/22 12:20 08/02/22 12:30 Temperature Temperature Source Pulse Rate 108 H 118 H Pulse Rate [Apical] Pulse Rate from SpO2 Sensor 110 H 119 H Pulse Rhythm [Apical] Respiratory Rate 15 17 Respiratory Effort / Characteristics Blood Pressure 194/105 H Blood Pressure [Left Arm] Blood Pressure Mean 124 Blood Pressure Mean [Left Arm] Pulse Oximetry 95 95 Oxygen Delivery Method Oxygen Flow Rate Sepsis Recent Fever Within 48 Hours Sepsis New/Unexplained Change in Mental Status Sepsis Action Taken by Nursing 08/02/22 12:30 08/02/22 12:40 08/02/22 12:50 Temperature Temperature Source Pulse Rate 121 H 102 H 114 H Pulse Rate [Apical] Pulse Rate from SpO2 Sensor 121 H Pulse Rhythm [Apical] Respiratory Rate 20 17 15 Respiratory Effort / Characteristics Blood Pressure Blood Pressure [Left Arm] Blood Pressure Mean Blood Pressure Mean [Left Arm] Pulse Oximetry 98 Oxygen Delivery Method Oxygen Flow Rate Sepsis Recent Fever Within 48 Hours Sepsis New/Unexplained Change in Mental Status Sepsis Action Taken by Nursing 08/02/22 13:21 08/02/22 13:30 08/02/22 13:40 Temperature Temperature Source Pulse Rate 105 H 111 H 112 H Pulse Rate [Apical] Pulse Rate from SpO2 Sensor 113 H 112 H Pulse Rhythm [Apical] Respiratory Rate 15 15 15 Respiratory Effort / Characteristics Blood Pressure Blood Pressure [Left Arm] Blood Pressure Mean Blood Pressure Mean [Left Arm] Pulse Oximetry 97 94 Oxygen Delivery Method Oxygen Flow Rate Sepsis Recent Fever Within 48 Hours Sepsis New/Unexplained Change in Mental Status Sepsis Action Taken by Nursing 08/02/22 13:43 08/02/22 13:43 08/02/22 13:50 Temperature Temperature Source Pulse Rate 111 H 110 H Pulse Rate [Apical] Pulse Rate from SpO2 Sensor 111 H 111 H Pulse Rhythm [Apical] Respiratory Rate 15 14 Respiratory Effort / Characteristics Blood Pressure 161/75 H Blood Pressure [Left Arm] Blood Pressure Mean 94 Blood Pressure Mean [Left Arm] Pulse Oximetry 95 90 Oxygen Delivery Method Oxygen Flow Rate Sepsis Recent Fever Within 48 Hours Sepsis New/Unexplained Change in Mental Status Sepsis Action Taken by Nursing Laboratory Data 08/02/22 10:36 08/02/22 10:36 Lab Results 08/02/22 08/02/22 08/02/22 Range/Units 10:36 10:36 10:36 WBC 11.19 H (4.8-10.8) K/ul RBC 4.52 (4.20-5.40) M/uL Hgb 13.9 (12.0-16.0) g/dl Hct 40.6 (37.0-47.0) % MCV 89.8 (80.0-100.0) fL MCH 30.8 (25.0-34.0) pg MCHC 34.2 (32.0-36.0) g/dL RDW Std Deviation 42.5 (36.4-46.3) fL RDW Coeff of Fabio 13.0 (11.5-14.5) % Plt Count 264 (130-400) K/uL MPV 11.3 (9.4-12.4) fL Immature Gran % (Auto) 1.3 % Neut % (Auto) 64.1 % Lymph % (Auto) 18.5 % [place] % (Auto) 15.9 % Eos % (Auto) 0.0 % Baso % (Auto) 0.2 % Neut # (Auto) 7.18 H (1.40-6.50) K/uL Lymph # (Auto) 2.07 (1.2-3.4) K/uL [place] # (Auto) 1.78 H (0.11-0.59) K/uL Eos # (Auto) 0.00 (0-0.50) K/uL Baso # (Auto) 0.02 (0-0.2) K/uL Immature Gran # (Auto) 0.14 (0.01-0.20) K/uL PT 10.9 (9.0-12.0) Seconds INR 1.0 (0.9-1.1) Sodium 131 L (136-145) mmol/L Potassium 3.4 L (3.5-5.1) mmol/L Chloride 96 L (98-107) mmol/L Carbon Dioxide 21 (21-32) mmol/L Anion Gap 14 H (3-11) BUN 27 H (6-23) mg/dl Creatinine 0.99 (0.6-1.2) mg/dl Est Cr Clr Drug Dosing 53.7 ml/min Est GFR ( Amer) 69.8 ml/min Est GFR (Non-Af Amer) 60.2 ml/min BUN/Creatinine Ratio 27.3 H (10-20) Glucose 297 H (70-99(Fasting)) mg/dl Lactate (0.4-2.0) mmol/L Calcium 8.8 (8.6-10.3) mg/dl Magnesium 2.1 (1.7-2.4) mg/dl Total Bilirubin 0.8 (0.2-1.0) mg/dl Direct Bilirubin 0.1 (0-0.2) mg/dl AST 25 (13-39) U/L ALT 30 (7-52) U/L Alkaline Phosphatase 86 (34-104) U/L Troponin I High Sens 86.6 H* (0-14) pg/ml Total Protein 7.3 (6.0-8.3) gm/dl Albumin 3.7 (3.4-5.0) gm/dl Procalcitonin (0-0.5) ng/ml Urine Color Urine Appearance (Clear) Urine pH (4.5-7.5) Ur Specific [place] (1.000-1.030) Urine Protein (Negative) Urine Glucose (UA) (Negative) Urine Ketones (Negative) Urine Blood (Negative) Urine Nitrite (Negative) Urine Bilirubin (Negative) Urine Urobilinogen (Negative) Ur Leukocyte Esterase (Negative) Urine WBC (Auto) (0-5) /hpf Urine RBC (Auto) (0-4) /hpf U Hyaline Cast (Auto) (0-5) /lpf U Epithel Cells (Auto) (0-5) /lpf Urine Bacteria (Auto) (Negative) Ur Renal Epithelial Cell Urine Yeast 08/02/22 08/02/22 08/02/22 Range/Units 10:36 10:36 11:55 WBC (4.8-10.8) K/ul RBC (4.20-5.40) M/uL Hgb (12.0-16.0) g/dl Hct (37.0-47.0) % MCV (80.0-100.0) fL MCH (25.0-34.0) pg MCHC (32.0-36.0) g/dL RDW Std Deviation (36.4-46.3) fL RDW Coeff of Fabio (11.5-14.5) % Plt Count (130-400) K/uL MPV (9.4-12.4) fL Immature Gran % (Auto) % Neut % (Auto) % Lymph % (Auto) % [place] % (Auto) % Eos % (Auto) % Baso % (Auto) % Neut # (Auto) (1.40-6.50) K/uL Lymph # (Auto) (1.2-3.4) K/uL [place] # (Auto) (0.11-0.59) K/uL Eos # (Auto) (0-0.50) K/uL Baso # (Auto) (0-0.2) K/uL Immature Gran # (Auto) (0.01-0.20) K/uL PT (9.0-12.0) Seconds INR (0.9-1.1) Sodium (136-145) mmol/L Potassium (3.5-5.1) mmol/L Chloride (98-107) mmol/L Carbon Dioxide (21-32) mmol/L Anion Gap (3-11) BUN (6-23) mg/dl Creatinine (0.6-1.2) mg/dl Est Cr Clr Drug Dosing ml/min Est GFR ( Amer) ml/min Est GFR (Non-Af Amer) ml/min BUN/Creatinine Ratio (10-20) Glucose (70-99(Fasting)) mg/dl Lactate 2.6 H* (0.4-2.0) mmol/L Calcium (8.6-10.3) mg/dl Magnesium (1.7-2.4) mg/dl Total Bilirubin (0.2-1.0) mg/dl Direct Bilirubin (0-0.2) mg/dl AST (13-39) U/L ALT (7-52) U/L Alkaline Phosphatase (34-104) U/L Troponin I High Sens (0-14) pg/ml Total Protein (6.0-8.3) gm/dl Albumin (3.4-5.0) gm/dl Procalcitonin < 0.05 (0-0.5) ng/ml Urine Color Dark Yellow Urine Appearance Cloudy A (Clear) Urine pH 5.5 (4.5-7.5) Ur Specific [place] 1.035 H (1.000-1.030) Urine Protein 4+ H (Negative) Urine Glucose (UA) 3+ H (Negative) Urine Ketones 1+ H (Negative) Urine Blood 1+ H (Negative) Urine Nitrite Negative (Negative) Urine Bilirubin Negative (Negative) Urine Urobilinogen Negative (Negative) Ur Leukocyte Esterase Trace H (Negative) Urine WBC (Auto) 5-10 H (0-5) /hpf Urine RBC (Auto) 0-4 (0-4) /hpf U Hyaline Cast (Auto) 5-10 H (0-5) /lpf U Epithel Cells (Auto) >30 H (0-5) /lpf Urine Bacteria (Auto) 1+ H (Negative) Ur Renal Epithelial Cell Not Reportable Urine Yeast Not Reportable 08/02/22 Range/Units 12:48 WBC (4.8-10.8) K/ul RBC (4.20-5.40) M/uL Hgb (12.0-16.0) g/dl Hct (37.0-47.0) % MCV (80.0-100.0) fL MCH (25.0-34.0) pg MCHC (32.0-36.0) g/dL RDW Std Deviation (36.4-46.3) fL RDW Coeff of Fabio (11.5-14.5) % Plt Count (130-400) K/uL MPV (9.4-12.4) fL Immature Gran % (Auto) % Neut % (Auto) % Lymph % (Auto) % [place] % (Auto) % Eos % (Auto) % Baso % (Auto) % Neut # (Auto) (1.40-6.50) K/uL Lymph # (Auto) (1.2-3.4) K/uL [place] # (Auto) (0.11-0.59) K/uL Eos # (Auto) (0-0.50) K/uL Baso # (Auto) (0-0.2) K/uL Immature Gran # (Auto) (0.01-0.20) K/uL PT (9.0-12.0) Seconds INR (0.9-1.1) Sodium (136-145) mmol/L Potassium (3.5-5.1) mmol/L Chloride (98-107) mmol/L Carbon Dioxide (21-32) mmol/L Anion Gap (3-11) BUN (6-23) mg/dl Creatinine (0.6-1.2) mg/dl Est Cr Clr Drug Dosing ml/min Est GFR ( Amer) ml/min Est GFR (Non-Af Amer) ml/min BUN/Creatinine Ratio (10-20) Glucose (70-99(Fasting)) mg/dl Lactate 2.2 H* (0.4-2.0) mmol/L Calcium (8.6-10.3) mg/dl Magnesium (1.7-2.4) mg/dl Total Bilirubin (0.2-1.0) mg/dl Direct Bilirubin (0-0.2) mg/dl AST (13-39) U/L ALT (7-52) U/L Alkaline Phosphatase (34-104) U/L Troponin I High Sens (0-14) pg/ml Total Protein (6.0-8.3) gm/dl Albumin (3.4-5.0) gm/dl Procalcitonin (0-0.5) ng/ml Urine Color Urine Appearance (Clear) Urine pH (4.5-7.5) Ur Specific [place] (1.000-1.030) Urine Protein (Negative) Urine Glucose (UA) (Negative) Urine Ketones (Negative) Urine Blood (Negative) Urine Nitrite (Negative) Urine Bilirubin (Negative) Urine Urobilinogen (Negative) Ur Leukocyte Esterase (Negative) Urine WBC (Auto) (0-5) /hpf Urine RBC (Auto) (0-4) /hpf U Hyaline Cast (Auto) (0-5) /lpf U Epithel Cells (Auto) (0-5) /lpf Urine Bacteria (Auto) (Negative) Ur Renal Epithelial Cell Urine Yeast Administered Medications Discontinued Medications Sodium Chloride (Nss 1000ml) 2,000 mls @ 999 mls/hr IV .Q2H1M ONE Stop: 08/02/22 12:39 Last Admin: 08/02/22 10:58 Dose: 999 mls/hr Documented By: CRISS Ceftriaxone Sodium (Rocephin) 2,000 mg in 70 mls @ 140 mls/hr IV NOW STA Stop: 08/02/22 11:15 Last Infusion: 08/02/22 11:42 Dose: 0 mls/hr Documented By: Admin: 08/02/22 11:10 Dose: 140 mls/hr Documented By: LESLIE Ioversol (Optiray 320 100ml) 95 ml IV ONCE ONE Stop: 08/02/22 13:02 Last Admin: 08/02/22 13:02 Dose: 95 ml Documented By: JMP Ondansetron HCl (Ondansetron Inj 2 Mg/Ml 2 Ml Vial) Confirm Administered Dose 4 mg .ROUTE .[employer] ONE Stop: 08/02/22 10:30 Last Admin: 08/02/22 10:33 Dose: 4 mg Documented By: KV Imaging Data Radiologist's Impression: Chest X-Ray 08/02/22 10:39 SINGLE VIEW CHEST CLINICAL HISTORY: Sepsis. FINDINGS: An AP, portable, upright chest radiograph is compared to study dated 08/27/2021 and correlated with chest CT dated 08/23/2021. The patient is status post midline sternotomy. The heart is enlarged noting atherosclerotic calcification of the thoracic aorta. The pulmonary vasculature is noncongested. Chronic interstitial thickening is similar to previous. There is mild bibasilar scarring/atelectasis. No airspace consolidation or large pleural effusion is identified. No pneumothorax is seen. The skeletal structures are osteopenic. The bony thorax is grossly intact. Cholecystectomy clips are seen in the right upper quadrant. IMPRESSION: Cardiomegaly with no active disease in the chest. ACT 112: Negative or not required by law. Electronically signed by: Geovani Dumont M.D. 08/02/2022 11:00 AM Abdomen/Pelvis CT 08/02/22 11:52 CT OF THE ABDOMEN AND PELVIS WITH CONTRAST CLINICAL HISTORY: Abdominal pain. Sepsis. COMPARISON STUDY: CT of the abdomen and pelvis March 16, 2021 TECHNIQUE: Following IV administration of 95 mL of Optiray, axial images of the abdomen and pelvis were obtained from the lung bases to the proximal femurs. Images were reviewed in the axial, sagittal, and coronal planes. IV contrast was administered without complication. Automated exposure control was utilized for the study. A dose lowering technique was utilized adhering to the principles of ALARA. CT DOSE: 1081.59 mGy.cm FINDINGS: No pneumatosis, free air or portal venous gas is present. There are no hepatic lesions. Mild biliary ductal dilatation is unchanged since prior CT and likely related to cholecystectomy. Spleen and pancreas are normal. Bilateral adrenal nodules are unchanged since CT of March 16, 2021. These are likely benign. There is no hydronephrosis. There are no ureteral calculi. There is no evidence for a bowel obstruction. The appendix is not visualized. There is minimal perirectal stranding. There is mild wall thickening of portions of the colon, including the ascending and descending colon. This could be due to underdistention. No abscess is present. The uterus is surgically absent. There is extensive aortoiliac atherosclerotic plaque with suspected severe stenosis of the proximal right common iliac artery. IMPRESSION: 1. No definite acute findings within the abdomen or pelvis. 2. Apparent wall thickening of portions of the colon and rectum. This is likely due to underdistention however a mild nonspecific proctocolitis could appear similar. 3. No bowel obstruction. 4. Extensive aortoiliac atherosclerotic plaque. Suspected severe stenosis of the proximal right common iliac artery. ACT 112: Negative or not required by law. Electronically signed by: Grover Delacruz M.D. 08/02/2022 1:17 PM Discharge Plan Visit Data Chief Complaint: Illness Stated Complaint: WEAKNESS, FLU LIKE SX ED Provider: Roni Hanks Discharge Problem: SIRS (systemic inflammatory response syndrome), Cough, Leukocytosis, Hypokalemia, Elevated lactic acid level, Elevated troponin Forms Stand Alone Forms: My [facility] [employer] Prescriptions Prescriptions: No Action oxycodone-acetaminophen [Percocet] 5-325 mg tablet 1 tab PO Q6H PRN (Reason: pain) Qty: 20 0RF diclofenac sodium 1 % gel 1 g topical QID Qty: 100 3RF Rx Instructions: Apply to affected areas four times daily as directed atorvastatin 80 mg tablet 80 mg PO HS metoprolol succinate 50 mg tablet extended release 24 hr See Rx Instructions .ROUTE .COMPLEX Rx Instructions: 50 mg orally; TAKES 100 MG QAM, THEN 50 MG QPM. clopidogrel 75 mg tablet 75 mg PO DAILY lisinopril 10 mg tablet 10 mg PO DAILY topiramate 50 mg tablet 50 mg PO BID duloxetine 30 mg capsule,delayed release(DR/EC) 30 mg PO QAM Rx Instructions: TOTAL DOSE 90 MG--TAKE WITH 60 MG CAP. duloxetine 60 mg capsule,delayed release(DR/EC) 60 mg PO QAM Rx Instructions: Last filled 03/21/22 x90 day supply multivitamin with folic acid [Daily-Hardik (with folic acid)] 400 mcg Tablet 1 tab PO QAM Qty: 30 0RF aspirin 81 mg Tablet,Delayed Release (Dr/Ec) 81 mg PO DAILY nitroglycerin 0.4 mg tablet, sublingual 0.4 mg sublingual .PRN/UD PRN (Reason: Chest Pain) Rx Instructions: NEEDED FOR CHEST PAIN : ONE TABLET UNDER THE TONGUE EVERY 5 MINUTES UP TO THREE DOSES. insulin aspart U-100 [Novolog FlexPen U-100 Insulin] 100 unit/mL (3 mL) Insulin Pen 0 unit SUBCUT TID MDD 72 UNITS/DAY. Rx Instructions: PER SLIDING SCALE tramadol 50 mg Tablet 50 mg PO Q6H PRN (Reason: Pain) donepezil 5 mg tablet 5 mg PO HS Rx Instructions: Last filled 06/01/22 x30 day supply quetiapine [Seroquel] 100 mg Tablet 100 mg PO HS acetaminophen [Tylenol Extra Strength] 500 mg Tablet 500 mg PO Q6H PRN (Reason: Pain) lorazepam 0.5 mg Tablet 0.5 mg PO Q8H MDD 3 TABS/DAILY PRN (Reason: Anxiety) conjugated estrogens 0.625 mg/gram Cream 0.625 mg VAGINAL HS gabapentin 300 mg capsule See Rx Instructions .ROUTE .COMPLEX Rx Instructions: 300 mg; TAKES 300 MG QAM, THEN 600 MG QHS. omeprazole 20 mg Capsule,Delayed Release(Dr/Ec) 20 mg PO DAILY furosemide [Lasix] 20 mg Tablet 60 mg PO DAILY daptomycin 500 mg Recon Soln 500 mg IV DAILY insulin glargine [Basaglar KwikPen U-100 Insulin] 100 unit/mL (3 mL) Insulin Pen 35 unit SUBCUT QAM cetirizine [Zyrtec] 10 mg Tablet 10 mg PO DAILY olanzapine 7.5 mg Tablet 7.5 mg PO HS ergocalciferol (vitamin D2) [Vitamin D2] 1,250 mcg (50,000 unit) Capsule 1,250 mcg PO WK Referrals Referrals: Christiano Simon PA-C [Primary Care Provider] -
[2022-08-02 11:29] LABS: Basophils # (auto) 0.02 K/uL (0-0.2); Basophils % (auto) 0.2 %; Hematocrit (blood only) 40.6 % (37.0-47.0); Hemoglobin 13.9 g/dl (12.0-16.0); Immature Granulocytes # (auto) 0.14 K/uL (0.01-0.20); Immature Granulocytes % (auto) 1.3 %; Lymphocytes # (auto) 2.07 K/uL (1.2-3.4); Lymphocytes % (auto) 18.5 %; Mean Corpuscular Hemoglobin 30.8 pg (25.0-34.0); Mean Corpuscular Hgb Conc 34.2 g/dL (32.0-36.0); Mean Corpuscular Volume 89.8 fL (80.0-100.0); Mean Platelet Volume 11.3 fL (9.4-12.4); Monocytes # (auto) 1.78 K/uL (0.11-0.59); Monocytes % (auto) 15.9 %; Neutrophils # (auto) 7.18 K/uL (1.40-6.50); Neutrophils % (auto) 64.1 %; Platelet Count 264 K/uL (130-400); RDW Standard Deviation 42.5 fL (36.4-46.3); Red Blood Count 4.52 M/uL (4.20-5.40); White Blood Count 11.19 K/ul (4.8-10.8)
[2022-08-02 11:43] LABS: Albumin Level 3.7 gm/dl (3.4-5.0); BUN Creatinine Ratio 27.3 (10-20); Bilirubin Direct 0.1 mg/dl (0-0.2); Bilirubin,Total 0.8 mg/dl (0.2-1.0); Calcium 8.8 mg/dl (8.6-10.3); Creatinine Clr Calc Pharmacy 53.7 ml/min; Est GFR (African American) 69.8 ml/min; Est GFR (Non-African American) 60.2 ml/min; Magnesium 2.1 mg/dl (1.7-2.4); Potassium 3.4 mmol/L (3.5-5.1); Total Protein 7.3 gm/dl (6.0-8.3)
[2022-08-02 11:54] LABS: Prothrombin Time 10.9 Seconds (9.0-12.0)
[2022-08-02 12:00] LABS: Troponin I High Sensitivity 86.6 pg/ml (0-14)
--- NOTE | 2022-08-02 12:32 | Electrocardiogram Report ---
Test Reason : Blood Pressure : / mmHG Vent. Rate : 112 BPM Atrial Rate : 112 BPM P-R Int : 126 ms QRS Dur : 140 ms QT Int : 390 ms P-R-T Axes : 071 -43 098 degrees QTc Int : 532 ms Sinus tachycardia Possible Left atrial enlargement Left axis deviation Left bundle branch block Abnormal ECG When compared with ECG of 24-AUG-2021 21:15, Vent. rate has increased BY 53 BPM QRS axis Shifted left Nonspecific T wave abnormality no longer evident in Inferior leads T wave inversion more evident in Lateral leads Confirmed by Macario Candelaria ([id number]) on 08/02/2022 12:31:55 PM Referred By: Confirmed By:Macario Candelaria
[2022-08-02 12:36] LABS: Appearance Urine Cloudy (Clear); Bilirubin Urine Negative (Negative); Blood Urine 1+ (Negative); Color Urine Dark Yellow; Glucose Urine UA 3+ (Negative); Ketones Urine 1+ (Negative); Leukocyte Esterase Urine Trace (Negative); Nitrite Urine Negative (Negative); Protein Urine 4+ (Negative); Specific Gravity Urine 1.035 (1.000-1.030); Urobilinogen Urine Negative (Negative); pH Urine 5.5 (4.5-7.5)
[2022-08-02] MEDS ORDERED: OPTIRAY 320 100ml IV ONE (13:01)
[2022-08-02 13:02] LABS: Epithelial Cell Urine Auto >30 /lpf (0-5)
[2022-08-02 13:04] LABS: Bacteria Urine Automated 1+ (Negative); RBC Urine Automated 0-4 /hpf (0-4)
--- NOTE | 2022-08-02 13:20 | CT Scan Report ---
CT OF THE ABDOMEN AND PELVIS WITH CONTRAST CLINICAL HISTORY: Abdominal pain. Sepsis. COMPARISON STUDY: CT of the abdomen and pelvis March 16, 2021 TECHNIQUE: Following IV administration of 95 mL of Optiray, axial images of the abdomen and pelvis we re obtained from the lung bases to the proximal femurs. Images were reviewed in the axial, sagittal, and coronal planes. IV contrast was administered without complication. Automated exposure control wa s utilized for the study. A dose lowering technique was utilized adhering to the principles of ALARA . CT DOSE: 1081.59 mGy.cm FINDINGS: No pneumatosis, free air or portal venous gas is present. There are no hepatic lesions. Mil d biliary ductal dilatation is unchanged since prior CT and likely related to cholecystectomy. Spleen and pancreas are normal. Bilateral adrenal nodules are unchanged since CT of March 16, 2021. These are likely benign. There is no hydronephrosis. There are no ureteral calculi. There is no evidence f or a bowel obstruction. The appendix is not visualized. There is minimal perirectal stranding. There is mild wall thickening of portions of the colon, including the ascending and descending colon. This could be due to underdistention. No abscess is present. The uterus is surgically absent. There is ext ensive aortoiliac atherosclerotic plaque with suspected severe stenosis of the proximal right common iliac artery. IMPRESSION: 1. No definite acute findings within the abdomen or pelvis. 2. Apparent wall thickening of portions of the colon and rectum. This is likely due to underdistentio n however a mild nonspecific proctocolitis could appear similar. 3. No bowel obstruction. 4. Extensive aortoiliac atherosclerotic plaque. Suspected severe stenosis of the proximal right commo n iliac artery. ACT 112: Negative or not required by law. Electronically signed by: Grover Delacruz M.D. 08/02/2022 1:17 PM
[2022-08-02] MEDS ORDERED: POTASSIUM CHLORIDE CRTAB 20 MEQ TABCR PO STA (14:27)
--- NOTE | 2022-08-02 14:37 | History & Physical Report ---
Date of Service August 02, 2022 Assessment & Plan (1) SIRS (systemic inflammatory response syndrome): (2) Elevated lactic acid level: (3) Elevated troponin: (4) Hypokalemia: Plan This is a 62-year-old female who has a significant past medical history of CAD status post CABG x4 with history of ischemic cardiomyopathy, moderate to severe MR, HTN, chronic HFpEF, intermittent LBBB, HTN, HLD, insulin-dependent T2DM, chronic tobacco abuse, left lower extremity BKA due to osteomyelitis, history of mitral valve endocarditis and periaortic abscess, chronic normocytic anemia who presents to ED secondary to ill feeling x 3-4 days. SIRS - possible sepsis in setting of elevated temp 37.8, tachycardia but no source yet identified Lactic Acidosis admit to PCU treat with broad spectrum vanco/zosyn possible proctocolitis on CT A/P - pt with profound nausea and abd pain on palpation give additional 500ml IVF bolus in ED due to tachycardia, dry on exam then NS + 20meq KCL 75cc/hr await blood/urine cultures obtain echocardiogram in setting of elevated trop/hx of endocarditis Lethargy possibly in setting of infection/encephalopathy vs underlying psych dx obtain drug tox, CT head pt very drowsy, occasional difficult to respond Hypokalemia replete Elevated trop hx of CABG x 4 hx of MV endocarditis/hx of periaortic abscess severe MR Chronic HFpEf continue metoprolol, atorvastatin, plavix, asa hold lasix for now in setting of resuscitative efforts IDDM 2 continue lantus/novolog per protocol a1c in a.m. continue gabapentin for neuropathy Chronic Tobacco abuse encourage cessation nicotine patch Anxiety/Paranoia on cymbalta, donepezil and seroquel pt drowsy/lethargy Hx of MRSA contact precautions DVT ppx: SQ Lovenox FULL CODE PCP: Christiano Simon PA-C Pt was seen and examined in collaboration with Dr. Nicole, please see addendum History of Present Illness Chief Complaint: Ill feeling x 3-4 days. Primary Care Provider: Christiano Simon PA-C This is a 62-year-old female who has a significant past medical history of CAD status post CABG x4 with history of ischemic cardiomyopathy, moderate to severe MR, HTN, chronic HFpEF, intermittent LBBB, HTN, HLD, insulin-dependent T2DM, chronic tobacco abuse, left lower extremity BKA due to osteomyelitis, history of mitral valve endocarditis and periaortic abscess, chronic normocytic anemia who presents to ED secondary to ill feeling x 3-4 days. She complains of being nauseated for 3-4 days, increased "phlegm," runny nose, feeling fever and fatigue. She denies chills, sweats, dizziness, lightheaded, chest pain, sob, vomiting, dysuria, increased urg/freq with urination and hematuria. She states, "I'm so sick I just can't stand it." She last moved her bowels a couple days ago. Last echocardiogram 11/26/21 revealed normal LV systolic function 55 to 59%, calcification of mitral valve chordae and mild restriction mitral valve leaflet mobility was moderate to severe MR. Epic Records viewed. Allergies Allergy/AdvReac Type Severity Reaction Status Date / Time latex Allergy Intermediate Rash Verified 04/28/22 13:20 aspirin Allergy Unknown UNKNOWN Verified 04/28/22 13:20 Home Medications Medication Instructions Recorded Confirmed Type clopidogrel 75 mg tablet 75 mg PO DAILY 03/16/21 08/02/22 History duloxetine 30 mg capsule,delayed 30 mg PO QAM 03/16/21 08/02/22 History release duloxetine 60 mg capsule,delayed 60 mg PO QAM 03/16/21 08/02/22 History release lisinopril 10 mg tablet 10 mg PO DAILY 03/16/21 08/02/22 History metoprolol succinate 50 mg See Rx Instructions .Route .COMPLEX 03/16/21 08/02/22 History tablet,extended release 24 hr topiramate 50 mg tablet 50 mg PO BID 03/16/21 08/02/22 History aspirin 81 mg tablet,delayed 81 mg PO DAILY 05/14/21 08/02/22 History release insulin aspart U-100 100 unit/mL 0 unit subcut TID 05/14/21 08/02/22 History (3 mL) subcutaneous pen (Novolog FlexPen U-100 Insulin aspart) nitroglycerin 0.4 mg sublingual 0.4 mg sublingual .PRN/UD PRN 05/14/21 08/02/22 History tablet Chest Pain acetaminophen 500 mg tablet 500 mg PO Q6H PRN Pain 08/23/21 08/02/22 History (Tylenol Extra Strength) donepezil 5 mg tablet 5 mg PO HS 08/23/21 08/02/22 History furosemide 20 mg tablet (Lasix) 60 mg PO DAILY 08/23/21 08/02/22 History gabapentin 300 mg capsule See Rx Instructions .Route .COMPLEX 08/23/21 08/02/22 History insulin glargine 100 unit/mL (3 35 unit subcut QAM 08/23/21 08/02/22 History mL) subcutaneous pen (Basaglar KwikPen U-100 Insulin) omeprazole 20 mg capsule,delayed 20 mg PO DAILY 08/23/21 08/02/22 History release cetirizine 10 mg tablet (Zyrtec) 10 mg PO DAILY 08/02/22 08/02/22 History ergocalciferol (vitamin D2) 1,250 1,250 mcg PO WK 08/02/22 08/02/22 History mcg (50,000 unit) capsule (Vitamin D2) melatonin 5 mg tablet 5 mg PO HS 08/02/22 08/02/22 History olanzapine 7.5 mg tablet 7.5 mg PO HS 08/02/22 08/02/22 History Past Med/Surg History Medical History Abscess of aorta Acute on chronic HFrEF (heart failure with reduced ejection fraction) Anxiety Carotid stenosis according to records from 2019 CEA was recommended but patient declined. no objective quantification available Carpal tunnel syndrome, left Chronic congestive heart failure with left ventricular diastolic dysfunction Coronary artery disease Diabetes mellitus, type 2 DVT prophylaxis Encounter for pre-operative examination Fracture of left tibial plateau HFrEF (heart failure with reduced ejection fraction) History of left below knee amputation HTN (hypertension) LBBB (left bundle branch block) MRSA bacteremia Osteomyelitis Psychotic disorder Right foot pain Tobacco use disorder Ulnar neuropathy at elbow of left upper extremity Surgical History Status post cholecystectomy Status post coronary artery bypass grafting Status post hysterectomy Status post ORIF of fracture of ankle R, 2016 Family History Other Diabetes Heart disease Social History Smoking Status: Current every day smoker Tobacco Type: Cigarettes packs per day: 1; Cigarettes Per Day: 10; Second Hand Exposure: No; Do You Dip or Chew Tobacco: No; Hx Alcohol Use: No Hx Substance Use: No Preferred Language: Armenian Communication Ability: Effective Stage Electrician Required: No Beliefs That Will Affect Care: None marital status: Current Living Situation: Other Current Living Situation Comment: Friend Feels Safe at Home: Yes Assistive Devices: Cane, Walker and Wheelchair Review of Systems Review of Systems: All systems reviewed & are unremarkable except as noted in HPI & below Physical Exam Physical Exam: please refer to Dr. Nicole addendum for physical exam findings Results & Data Results & Data Vital Signs (Past 12 Hours) Vital Signs Temp Pulse Pulse Resp BP BP Pulse Ox 08/02/22 14:23 118 H 08/02/22 13:50 110 H 14 90 08/02/22 13:43 161/75 H 08/02/22 13:43 111 H 15 95 08/02/22 13:40 112 H 15 94 08/02/22 13:30 111 H 15 97 08/02/22 13:21 105 H 15 08/02/22 12:50 114 H 15 08/02/22 12:40 102 H 17 08/02/22 12:30 121 H 20 98 08/02/22 12:30 194/105 H 08/02/22 12:20 118 H 17 95 08/02/22 12:10 108 H 15 95 08/02/22 12:00 110 H 13 99 08/02/22 11:52 135 H 15 08/02/22 11:20 108 H 18 08/02/22 11:12 162/88 H 08/02/22 11:12 106 H 23 99 08/02/22 11:10 114 H 15 99 08/02/22 11:00 100 08/02/22 10:50 108 H 13 100 08/02/22 10:40 110 H 23 99 08/02/22 10:30 104 H 14 100 08/02/22 10:20 118 H 20 100 08/02/22 10:18 114 H 22 100 08/02/22 10:44 112 H 19 140/110 H 95 08/02/22 10:20 113 H 08/02/22 10:19 37.8 C H 113 H 20 131/101 H 100 O2 Del Method O2 Flow Rate 08/02/22 14:23 08/02/22 13:50 08/02/22 13:43 08/02/22 13:43 08/02/22 13:40 08/02/22 13:30 08/02/22 13:21 08/02/22 12:50 08/02/22 12:40 08/02/22 12:30 08/02/22 12:30 08/02/22 12:20 08/02/22 12:10 08/02/22 12:00 08/02/22 11:52 08/02/22 11:20 08/02/22 11:12 08/02/22 11:12 08/02/22 11:10 08/02/22 11:00 08/02/22 10:50 08/02/22 10:40 08/02/22 10:30 08/02/22 10:20 08/02/22 10:18 08/02/22 10:44 Nasal Cannula 3 08/02/22 10:20 08/02/22 10:19 Nasal Cannula 3 Diagnostic Findings Chest X-Ray 08/02/22 10:39 SINGLE VIEW CHEST CLINICAL HISTORY: Sepsis. FINDINGS: An AP, portable, upright chest radiograph is compared to study dated 08/27/2021 and correlated with chest CT dated 08/23/2021. The patient is status post midline sternotomy. The heart is enlarged noting atherosclerotic calcification of the thoracic aorta. The pulmonary vasculature is noncongested. Chronic interstitial thickening is similar to previous. There is mild bibasilar scarring/atelectasis. No airspace consolidation or large pleural effusion is identified. No pneumothorax is seen. The skeletal structures are osteopenic. The bony thorax is grossly intact. Cholecystectomy clips are seen in the right upper quadrant. IMPRESSION: Cardiomegaly with no active disease in the chest. ACT 112: Negative or not required by law. Electronically signed by: Geovani Dumont M.D. 08/02/2022 11:00 AM Abdomen/Pelvis CT 08/02/22 11:52 CT OF THE ABDOMEN AND PELVIS WITH CONTRAST CLINICAL HISTORY: Abdominal pain. Sepsis. COMPARISON STUDY: CT of the abdomen and pelvis March 16, 2021 TECHNIQUE: Following IV administration of 95 mL of Optiray, axial images of the abdomen and pelvis were obtained from the lung bases to the proximal femurs. Images were reviewed in the axial, sagittal, and coronal planes. IV contrast was administered without complication. Automated exposure control was utilized for the study. A dose lowering technique was utilized adhering to the principles of ALARA. CT DOSE: 1081.59 mGy.cm FINDINGS: No pneumatosis, free air or portal venous gas is present. There are no hepatic lesions. Mild biliary ductal dilatation is unchanged since prior CT and likely related to cholecystectomy. Spleen and pancreas are normal. Bilateral adrenal nodules are unchanged since CT of March 16, 2021. These are likely benign. There is no hydronephrosis. There are no ureteral calculi. There is no evidence for a bowel obstruction. The appendix is not visualized. There is minimal perirectal stranding. There is mild wall thickening of portions of the colon, including the ascending and descending colon. This could be due to underdistention. No abscess is present. The uterus is surgically absent. There is extensive aortoiliac atherosclerotic plaque with suspected severe stenosis of the proximal right common iliac artery. IMPRESSION: 1. No definite acute findings within the abdomen or pelvis. 2. Apparent wall thickening of portions of the colon and rectum. This is likely due to underdistention however a mild nonspecific proctocolitis could appear similar. 3. No bowel obstruction. 4. Extensive aortoiliac atherosclerotic plaque. Suspected severe stenosis of the proximal right common iliac artery. ACT 112: Negative or not required by law. Electronically signed by: Grover Delacruz M.D. 08/02/2022 1:17 PM Medications Administered Medication List Discontinued Medications Sodium Chloride (Nss 1000ml) 2,000 mls @ 999 mls/hr IV .Q2H1M ONE Stop: 08/02/22 12:39 Last Infusion: 08/02/22 13:59 Dose: 0 mls/hr Documented By: Admin: 08/02/22 10:58 Dose: 999 mls/hr Documented By: CRISS Ceftriaxone Sodium (Rocephin) 2,000 mg in 70 mls @ 140 mls/hr IV NOW STA Stop: 08/02/22 11:15 Last Infusion: 08/02/22 11:42 Dose: 0 mls/hr Documented By: Admin: 08/02/22 11:10 Dose: 140 mls/hr Documented By: LESLIE Ioversol (Optiray 320 100ml) 95 ml IV ONCE ONE Stop: 08/02/22 13:02 Last Admin: 08/02/22 13:02 Dose: 95 ml Documented By: TRICIA Ondansetron HCl (Ondansetron Inj 2 Mg/Ml 2 Ml Vial) Confirm Administered Dose 4 mg .ROUTE .STK-MED ONE Stop: 08/02/22 10:30 Last Admin: 08/02/22 10:33 Dose: 4 mg Documented By: KV ECG Rate (beats per minute): 112 Rhythm: sinus tachycardia Findings: + LBBB COVID-19 Results Results COVID-19 Adm Lab Results: RBC 4.52 M/uL (4.20-5.40) 08/02/22 WBC 11.19 K/ul (4.8-10.8) H 08/02/22 Hgb 13.9 g/dl (12.0-16.0) 08/02/22 Hct 40.6 % (37.0-47.0) 08/02/22 Plt Count 264 K/uL (130-400) 08/02/22 Neutrophils (%) (Auto) 64.1 % 08/02/22 Lymphocytes (%) (Auto) 18.5 % 08/02/22 Monocytes # (Auto) 1.78 K/uL (0.11-0.59) H 08/02/22 Eosinophils # (Auto) 0.00 K/uL (0-0.50) 08/02/22 Immature Granulocyte % (Auto) 1.3 % 08/02/22 Neutrophils # (Auto) 7.18 K/uL (1.40-6.50) H 08/02/22 Lymphocytes # (Auto) 2.07 K/uL (1.2-3.4) 08/02/22 Monocytes # (Auto) 1.78 K/uL (0.11-0.59) H 08/02/22 Eosinophils # (Auto) 0.00 K/uL (0-0.50) 08/02/22 Basophils # (Auto) 0.02 K/uL (0-0.2) 08/02/22 Immature Granulocyte # (Auto) 0.14 K/uL (0.01-0.20) 3 Na 131 mmol/L (136-145) L 08/02/22 K 3.4 mmol/L (3.5-5.1) L 08/02/22 Cl 96 mmol/L (98-107) L 08/02/22 CO2 21 mmol/L (21-32) 08/02/22 Anion Gap 14 (3-11) H 08/02/22 BUN 27 mg/dl (6-23) H 08/02/22 Creatinine 0.99 mg/dl (0.6-1.2) 08/02/22 BUN/Creatinine Ratio 27.3 (10-20) H 08/02/22 Glucose Level 297 mg/dl (70-99(Fasting)) H 08/02/22 Ca 8.8 mg/dl (8.6-10.3) 08/02/22 Total Bilirubin 0.8 mg/dl (0.2-1.0) 08/02/22 Direct Bilirubin 0.1 mg/dl (0-0.2) 08/02/22 AST/SGOT 25 U/L (13-39) 08/02/22 ALT/SGPT 30 U/L (7-52) 08/02/22 Alkaline Phosphatase 86 U/L (34-104) 08/02/22 Total Protein 7.3 gm/dl (6.0-8.3) 08/02/22 Albumin 3.7 gm/dl (3.4-5.0) 08/02/22 Procalcitonin < 0.05 ng/ml (0-0.5) 08/02/22 INR 1.0 (0.9-1.1) 08/02/22 SARS-CoV-2, RNA, NAAT NEGATIVE (NEGATIVE) 08/02/22 Chest X-Ray 08/02/22 Code Status & VTE Plan Code Status FULL CODE VTE Prophylaxis Plan VTE Prophylaxis will be ordered: Yes Supervising Physician Co-Signing Physician Notes Pt is a 62 y/o F with hx of HFpEF, CAD s/p CABG, IDDM, L BKA, mitral valve endocarditis, hx of MRSA bacteremia, periaortic abscess, HTN, hx of L tibial fracture admitted for worsening nausea with fever and fatigue PE: Pt appeared lethargic, no NC in place Lungs: Good air entry b/l, no wheezing or crackle Cardiac: normal S1/S2, no murmur Abd: soft, but diffuse TTP, ND MSK: L BKA, RLE no edema Psych: AAOX3 but pt was slightly lethargic Neuro: CN II-XII intact, overall normal strength at the UE and LE A/P: Nausea, fatigue, fever and abd TTP: -pt meets the criteria for sepsis with likely abd source -CT abd: possible proctocolitis -CXR: no acute finding - Procal neg but pts LA and wbc elevated - COVID neg - will send UCX and BCx - jocelin with hx of MRSA bacteremia with abd symptoms will start pt on zosyn and vancomycin - admit to tele and repeat LA Lethargy: could be 2/2 acute infection vs excess fatigue -will get UDS and CT head --- CT head: no acute finding and UDS normal - normal Neuro exam - will get lyme titer Elevated Trop with hx of CAD and endocarditis: -EKG: LBBB with TWI on Lead I --- pt denied any CP ---- Trend trop, obtain echo and admit to tele - will obtain AM EKG other chronic conditions: plan as above Agree with A/P by Prema Dickens PA-C
[2022-08-02] MEDS ORDERED: VANCOMYCIN CONSULT ACTIVE PRN (15:10)
[2022-08-02] MEDS ORDERED: LACTATED RINGER'S 500 ML IV ONE (15:10)
[2022-08-02] MEDS ORDERED: VANCOMYCIN HCL 1,750 MG in SODIUM CHLORIDE 0.9% 500 ML IV ONE (15:15)
--- NOTE | 2022-08-02 15:58 | CT Scan Report ---
CT head/brain wo con CLINICAL HISTORY: 62 years-old Female with drowsiness. Acute dizziness TECHNIQUE: Multiple axial CT images of the head were obtained without contrast. A dose lowering tech nique was utilized adhering to the principles of ALARA. CT DOSE: 625.80 mGy.cm COMPARISON: 05/14/2021 FINDINGS: No acute intracranial hemorrhage, midline shift, intracranial mass, hydrocephalus, territorial ischem ia or abnormal extra-axial collection. Motion degraded exam. Involutional changes with chronic microv ascular ischemic disease. Ill-defined increased attenuation adjacent to the temporal horn right later al ventricle is likely artifactual. The calvarium is intact. Prior bilateral lens repair. The paranasal sinuses, mastoid air cells, and m iddle ear cavities are clear. IMPRESSION: Motion degraded exam. No acute intracranial abnormality or calvarial fracture. ACT 112: Negative or not required by law. The above report was generated using voice recognition software. It may contain grammatical, syntax o r spelling errors. Electronically signed by: Alexi Wu M.D. 08/02/2022 3:56 PM
[2022-08-02 16:25] LABS: Amphetamines+Metham, Urine Neg (Neg); Barbiturates, Urine Neg (Neg); Benzodiazepine, Urine Neg (Neg); Cocaine, Urine Neg (Neg); MDMA (Ecstacy), Urine Neg (Neg); Methadone, Urine Neg (Neg); Opiate, Urine Neg (Neg); Phencyclidine, Urine Neg (Neg)
[2022-08-02] MEDS ORDERED: PIPERACILLIN/TAZOBACTAM 4.5 GM in DEXTROSE 5% 100 ML IV SCH (16:44)
[2022-08-02] MEDS ORDERED: ONDANSETRON INJ 2 MG/ML 2 ML VIAL IV PRN (16:44)
[2022-08-02] MEDS ORDERED: LANTUS PER UNIT CHARGE SQ ONE (16:44)
[2022-08-02] MEDS ORDERED: DEXTROSE 50% 50 ML SYRINGE IV PRN (16:44)
[2022-08-02] MEDS ORDERED: ACETAMINOPHEN 325 MG TAB PO PRN (16:44)
[2022-08-02] MEDS ORDERED: MAGNESIUM HYDROXIDE SUSP 30 ML UDC PO PRN (16:44)
[2022-08-02] MEDS ORDERED: GLUCOSE 10 TAB/TUBE PO PRN (16:44)
[2022-08-02] MEDS ORDERED: CARBOHYDRATES FOR HYPOGLYCEMIA PO PRN (16:44)
[2022-08-02] MEDS ORDERED: GLUCOSE 40% GEL 15 GM TUBE PO PRN (16:44)
[2022-08-02] MEDS ORDERED: GLUCAGON FOR INJ 1 MG VIAL SQ PRN (16:44)
[2022-08-02] MEDS ORDERED: POLYETHYLENE (MIRALAX) 17 GM PACK PO PRN (16:44)
[2022-08-02] MEDS ORDERED: NSS + 20MEQ KCL 20 MEQ/1,000 ML BAG IV SCH (17:00)
[2022-08-02] MEDS ORDERED: PIPERACILLIN/TAZOBACTAM 4.5 GM in DEXTROSE 5% 100 ML IV ONE (17:30)
[2022-08-02 17:50] LABS: Lyme Ab IgG w/WB Rflx Negative (Negative)
[2022-08-02 18:05] LABS: Lyme Ab IgM w/WB Rflx Positive (Negative)
[2022-08-02] MEDS: INSULIN ASPART PER UNIT CHARGE SC SCH ×2 (18:14→23:18)
[2022-08-02] MEDS: NICOTINE 14 MG/24 HR PATCH TD SCH (18:30)
--- NOTE | 2022-08-02 18:52 | Pharmacy Report ---
Pharmacy Vanc AUC Short Note - Date of Service August 02, 2022 - Assessment & Plan Assessment 62 year old F receiving Vancomycin for empiric treatment. First day of antimicrobial therapy: 08/02/22 Plan Vancomycin * Load: Vancomycin 1,750 mg IV once on 08/02/22 at 1600 * Maintenance: Vancomycin 750 mg IV q12h starting 08/03/22 at 0000 * AUC/ELI is the preferred PK/PD target for vancomycin * AUC guided dosing is effective and associated with decreased risk of nephr otoxicity compared to traditional trough targets * Trough level of 18.3 mcg/mL is predicted to achieve target AUC/ELI of 400-600 mg/L.hr and may be associated with a 15% risk of nephrotoxicity * Trough or random level ordered for: 08/04/22 at 1130 Pharmacy will continue to follow and will adjust dose/frequency as necessary. Thank you.
[2022-08-02] MEDS ORDERED: TOPIRAMATE 50 MG TAB PO SCH (21:00)
[2022-08-02] MEDS ORDERED: OLANZAPINE 2.5 MG TAB PO SCH (21:00)
[2022-08-02] MEDS ORDERED: MELATONIN 3 MG TAB PO SCH (21:00)
[2022-08-02] MEDS ORDERED: GABAPENTIN 600 MG TAB PO SCH (21:00)
[2022-08-02] MEDS ORDERED: SODIUM CHLORIDE 0.9% 1000ML 1,000 ML IV ONE (22:15)
[2022-08-02] MEDS: ENOXAPARIN INJ 40 MG/0.4 ML SYR SQ SCH (23:19)
[2022-08-03] MEDS ORDERED: ACETAMINOPHEN 1,000 MG/100 ML VIAL IV STA (00:01)
[2022-08-03] MEDS ORDERED: METOPROLOL TARTRATE 1 MG/ML VIAL IV STA ×2 (00:01→00:56)
[2022-08-03] MEDS: POTASSIUM CHLORIDE / WTR 10 MEQ/100 ML PLCT IV SCH ×4 (00:08→03:40)
[2022-08-03] MEDS: PROMETHAZINE HCL 12.5 MG in SODIUM CHLORIDE 0.9% 50 ML IV PRN ×2 (00:09→23:03)
[2022-08-03] MEDS: PIPERACILLIN/TAZOBACTAM 4.5 GM in DEXTROSE 5% 100 ML IV SCH ×3 (00:26→15:49)
[2022-08-03] MEDS: VANCOMYCIN HCL 750 MG in SODIUM CHLORIDE 0.9% 250 ML IV SCH ×2 (00:26→12:03)
[2022-08-03] MEDS: DONEPEZIL HCL 5 MG TAB PO SCH ×2 (00:54→21:13)
[2022-08-03] MEDS: METOPROLOL SUCC 50MG EXT REL TAB PO SCH ×3 (00:54→21:13)
[2022-08-03] MEDS ORDERED: ONDANSETRON INJ 2 MG/ML 2 ML VIAL IV STA (00:58)
--- NOTE | 2022-08-03 01:50 | Communication Note ---
Date of Service: August 03, 2022 Patient lethargic and unable to swallow pills safely as per RN. Febrile AP Encephalopathy ? VEGETABLE TRIMMER Lyme IV ceftriaxone Appropriate to hold patient's multiple neuropsychotropic medications until patient more awake.
[2022-08-03 02:38] LABS: Base Excess ABG -2.2 mEq/L (-9-1.8); HCO3 ABG 22 mmol/L (19-24); Oxygen Saturation ABG 97.8 % (90-95); PCO2 ABG 37 mmHg (35-46); PO2 ABG 81 mmHg (80-95); pH ABG 7.39 (7.35-7.45)
[2022-08-03 02:44] LABS: Hematocrit (blood only) 33.9 % (37.0-47.0); Hemoglobin 11.5 g/dl (12.0-16.0); Mean Corpuscular Hgb Conc 33.9 g/dL (32.0-36.0); Mean Corpuscular Volume 91.4 fL (80.0-100.0); Mean Platelet Volume 10.9 fL (9.4-12.4); Platelet Count 244 K/uL (130-400); RDW Coefficient of Variation 13.2 % (11.5-14.5); RDW Standard Deviation 43.9 fL (36.4-46.3); Red Blood Count 3.71 M/uL (4.20-5.40); White Blood Count 14.91 K/ul (4.8-10.8)
[2022-08-03 02:46] LABS: Allen Test Pos (Pos)
[2022-08-03 02:59] LABS: Albumin Globulin Ratio 1.1 (0.9-2); Albumin Level 3.2 gm/dl (3.4-5.0); Bilirubin,Total 0.6 mg/dl (0.2-1.0); Calcium 7.5 mg/dl (8.6-10.3); Est GFR (African American) 85.1 ml/min; Est GFR (Non-African American) 73.4 ml/min; Magnesium 1.9 mg/dl (1.7-2.4); Potassium 3.8 mmol/L (3.5-5.1); Total Protein 6.2 gm/dl (6.0-8.3)
[2022-08-03 03:02] LABS: Basophils # (auto) 0.02 K/uL (0-0.2); Basophils % (auto) 0.1 %; Eosinophils # (auto) 0.03 K/uL (0-0.50); Eosinophils % (auto) 0.2 %; Immature Granulocytes # (auto) 0.21 K/uL (0.01-0.20); Immature Granulocytes % (auto) 1.4 %; Lymphocytes # (auto) 3.27 K/uL (1.2-3.4); Lymphocytes % (auto) 21.9 %; Monocytes # (auto) 3.11 K/uL (0.11-0.59); Monocytes % (auto) 20.9 %; Neutrophils # (auto) 8.27 K/uL (1.40-6.50); Neutrophils % (auto) 55.5 %; Polychromasia 1+
[2022-08-03] MEDS ORDERED: MAGNESIUM SULFATE / D5W 1 GM/100 ML BAG IV ONE (03:22)
[2022-08-03 03:58] LABS: Troponin I High Sensitivity 171.1 pg/ml (0-14)
[2022-08-03] MEDS ORDERED: LABETALOL HCL IV 5 MG/ML 20ML IV STA (06:04)
[2022-08-03] MEDS ORDERED: METOPROLOL TARTRATE 1 MG/ML VIAL IV PRN (06:22)
[2022-08-03] MEDS: INSULIN ASPART PER UNIT CHARGE SC SCH ×4 (07:52→21:20)
[2022-08-03] MEDS ORDERED: DULoxetine HCL 60 MG CAP PO SCH (09:00)
[2022-08-03] MEDS ORDERED: DULoxetine HCL 30 MG CAP PO SCH (09:00)
[2022-08-03] MEDS ORDERED: GABAPENTIN 300 MG CAP PO SCH (09:00)
[2022-08-03] MEDS: DOXYCYCLINE HYCLATE 100 MG in DEXTROSE 5% 100 ML IV SCH ×2 (09:18→20:12)
[2022-08-03] MEDS: LANTUS PER UNIT CHARGE SQ SCH (09:19)
[2022-08-03] MEDS: NICOTINE 14 MG/24 HR PATCH TD SCH (09:23)
[2022-08-03] MEDS: CLOPIDOGREL BISULFATE 75 MG TAB PO SCH (10:21)
[2022-08-03] MEDS: ASPIRIN 81 MG ECTAB PO SCH (10:21)
[2022-08-03] MEDS: lisinopril 10 MG TAB PO SCH (10:22)
[2022-08-03] MEDS: PANTOprazole 40 MG TAB PO SCH (10:22)
[2022-08-03] MEDS ORDERED: cefTRIAXone SODIUM 2,000 MG in DEXTROSE 5% 50 ML IV SCH (11:00)
--- NOTE | 2022-08-03 13:41 | Hospitalist Progress Note ---
Date of Service August 03, 2022 Assessment & Plan (1) SIRS (systemic inflammatory response syndrome): (2) Elevated lactic acid level: (3) Elevated troponin: (4) Hypokalemia: Plan Patient is a 62 yr old female who has a significant past medical history of CAD status post CABG x4 with history of ischemic cardiomyopathy, moderate to severe MR, HTN, chronic HFpEF, intermittent LBBB, HTN, HLD, insulin-dependent T2DM, chronic tobacco abuse, left lower extremity BKA due to osteomyelitis, history of mitral valve endocarditis and periaortic abscess, chronic normocytic anemia who presents to ED secondary to ill feeling x 3-4 days. Sepsis Possible Sources: Lyme's disease, proctocolitis, ? UTI Lactic acidosis Acute metabolic encephalopathy secondary to above H/O MRSA bacteremia --CXR:Cardiomegaly with no active disease in the chest. --ABD CT:No definite acute findings within the abdomen or pelvis. Apparent wall thickening of portions of the colon and rectum. This is likely due to underdistention however a mild nonspecific proctocolitis could appear similar. No bowel obstruction. Extensive aortoiliac atherosclerotic plaque. Suspected severe stenosis of the proximal right common iliac artery. --Head CT:Motion degraded exam. No acute intracranial abnormality or calvarial fracture. --Blood Cx: No growth to date --Urine Cx:pending -- Lyme serology positive for IgM antibody (Panel pending) -- Anaplasma smear showed no intracytoplasmic neutrophilic inclusions --Serological test for other tickborne illness pending Lactic acidosis resolved with IV fluids Continue Zosyn, doxycycline for now Plan to discontinue vancomycin tomorrow if no other source of infection identified Resume home neuropsychotropic medications as able Hypertensive urgency Elevated troponins--likely demand ischemia -- Patient denies any chest pain ECHO: Unchanged posterior wall hypokinesis and degree of mitral regurgitation when compared to 05/15/2021 -BP Variable Continue lisinopril, metoprolol for now Adjust antihypertensives as needed Right common iliac artery stenosis Incidental finding CT as above Continue aspirin, statin, Plavix Check lipid panel Will need vascular surgery evaluation as outpatient Hypokalemia replete as needed Monitor H/O CAD S/P CABG x 4 H/O MV endocarditis/periaortic abscess Severe MR Continue aspirin, Plavix, lisinopril, metoprolol Chronic HFpEf Home diuretics on hold Monitor volume status Resume diuretics as able DM II continue Insulin per protocol Update HbA1c Monitor BGs Chronic Tobacco abuse Encourage cessation Continue nicotine patch Anxiety/Paranoia on cymbalta, donepezil and seroquel Resume home meds as able DVT Px: SQ Lovenox Code Status FULL CODE Admission and Anticipated Discharge Date Admission Date: August 02, 2022 Subjective Patient is seen and examined at bedside States having mild abdominal discomfort associated with nausea Also reports feeling tired/generalized weakness Admits to actively smoking tobacco As chronic dyspnea on exertion which she attributes to COPD No other complaints Denies any chest pain, dizziness Review of Systems Review of Systems: All systems reviewed & are unremarkable except as noted in Subjective Physical Exam Physical Exam: Physical Exam: Vitals signs as noted above General Appearance:Moderately built and nourished, no apparent distress Head: normocephalic, Atraumatic Eyes: normal inspection, EOMI Neck: supple, Trachea midline Respiratory/Chest: Decreased breath sounds, CTA, No accessory muscle use Cardiovascular: S1, S2, No murmur Abdomen/GI:Soft, Non tender, Bowel sounds present Extremities/Musculoskeletal:normal inspection, no edema, Left BKA Neurologic/Psych:AAO, grossly no focal neurological deficits Skin: normal color, warm Results & Data Results & Data Vital Signs (Past 12 Hours) Vital Signs Temp Pulse Pulse Resp BP BP Pulse Ox 08/03/22 08:00 93 H 08/03/22 12:30 101 H 25 H 95 08/03/22 12:09 100 H 21 164/74 H 95 08/03/22 12:00 37.6 C H 08/03/22 08:00 37.0 C 100 H 21 129/79 96 08/03/22 08:00 08/03/22 06:30 90 22 97 08/03/22 06:25 94 H 22 93 08/03/22 06:25 129/79 08/03/22 06:02 209/101 H 08/03/22 06:02 121 H 25 H 98 08/03/22 06:00 108 H 25 H 97 08/03/22 06:00 187/112 H 08/03/22 05:30 105 H 24 91 08/03/22 05:00 109 H 21 94 08/03/22 05:00 178/108 H 08/03/22 04:30 109 H 13 96 08/03/22 04:00 109 H 23 96 08/03/22 04:00 176/112 H 08/03/22 03:30 109 H 7 L 100 08/03/22 03:00 112 H 14 99 08/03/22 03:00 160/104 H 08/03/22 02:47 108 H 16 98 08/03/22 02:47 161/106 H 08/03/22 02:30 108 H 22 98 08/03/22 02:01 110 H 25 H 98 08/03/22 02:00 114 H 21 99 08/03/22 02:46 37.2 C O2 Del Method O2 Flow Rate 08/03/22 08:00 08/03/22 12:30 08/03/22 12:09 Room Air 08/03/22 12:00 08/03/22 08:00 Nasal Cannula 2 08/03/22 08:00 Nasal Cannula 2 08/03/22 06:30 08/03/22 06:25 08/03/22 06:25 08/03/22 06:02 08/03/22 06:02 08/03/22 06:00 08/03/22 06:00 08/03/22 05:30 08/03/22 05:00 08/03/22 05:00 08/03/22 04:30 08/03/22 04:00 08/03/22 04:00 08/03/22 03:30 08/03/22 03:00 08/03/22 03:00 08/03/22 02:47 08/03/22 02:47 08/03/22 02:30 08/03/22 02:01 08/03/22 02:00 08/03/22 02:46 Laboratory Results Short CBC 08/03/22 Range/Units 02:25 WBC 14.91 H (4.8-10.8) K/ul Hgb 11.5 L (12.0-16.0) g/dl Hct 33.9 L (37.0-47.0) % Plt Count 244 (130-400) K/uL BMP 08/02/22 08/03/22 17:29 02:25 Sodium 135 L Potassium 3.8 Chloride 108 H Carbon Dioxide 22 BUN 16 Creatinine 0.84 Glucose 302 H* 99 Calcium 7.5 L Liver Function 08/03/22 Range/Units 02:25 Total Bilirubin 0.6 (0.2-1.0) mg/dl AST 33 (13-39) U/L ALT 24 (7-52) U/L Alkaline Phosphatase 66 (34-104) U/L Albumin 3.2 L (3.4-5.0) gm/dl
--- NOTE | 2022-08-03 15:46 | Electrocardiogram Report ---
Test Reason : Blood Pressure : / mmHG Vent. Rate : 093 BPM Atrial Rate : 093 BPM P-R Int : 138 ms QRS Dur : 144 ms QT Int : 412 ms P-R-T Axes : 054 -33 123 degrees QTc Int : 512 ms Normal sinus rhythm Possible Left atrial enlargement Left axis deviation Left bundle branch block Abnormal ECG When compared with ECG of 02-AUG-2022 10:18, No significant change was found Confirmed by Macario Candelaria ([id number]) on 08/03/2022 3:46:18 PM Referred By: REFERRED SELF Confirmed By:Macario Candelaria
[2022-08-03] MEDS ORDERED: LABETALOL HCL IV 5 MG/ML 20ML IV PRN (16:12)
[2022-08-03] MEDS: ACETAMINOPHEN 1,000 MG/100 ML VIAL IV PRN (16:28)
[2022-08-03] MEDS: LACTATED RINGER'S 1,000 ML IV SCH (16:30)
[2022-08-03] MEDS: LIDOCAINE 5% 1 PATCH TD SCH (16:35)
[2022-08-03] MEDS: ENOXAPARIN INJ 40 MG/0.4 ML SYR SQ SCH (21:13)
[2022-08-04] MEDS: PIPERACILLIN/TAZOBACTAM 4.5 GM in DEXTROSE 5% 100 ML IV SCH ×3 (00:54→15:29)
[2022-08-04] MEDS: VANCOMYCIN HCL 750 MG in SODIUM CHLORIDE 0.9% 250 ML IV SCH (00:59)
[2022-08-04 04:58] LABS: Hematocrit (blood only) 33.2 % (37.0-47.0); Hemoglobin 11.2 g/dl (12.0-16.0); Mean Corpuscular Hemoglobin 31.1 pg (25.0-34.0); Mean Corpuscular Hgb Conc 33.7 g/dL (32.0-36.0); Mean Corpuscular Volume 92.2 fL (80.0-100.0); Mean Platelet Volume 10.7 fL (9.4-12.4); Platelet Count 210 K/uL (130-400); RDW Coefficient of Variation 13.6 % (11.5-14.5); RDW Standard Deviation 45.7 fL (36.4-46.3); White Blood Count 8.46 K/ul (4.8-10.8)
[2022-08-04] MEDS: PROMETHAZINE HCL 12.5 MG in SODIUM CHLORIDE 0.9% 50 ML IV PRN (05:02)
[2022-08-04 05:14] LABS: BUN Creatinine Ratio 9.4 (10-20); Calcium 8.4 mg/dl (8.6-10.3); Chol HDL Ratio 12.3 (0-5); Creatinine Clr Calc Pharmacy 63.2 ml/min; Est GFR (African American) 83.9 ml/min; Est GFR (Non-African American) 72.4 ml/min; Potassium 3.4 mmol/L (3.5-5.1)
[2022-08-04 07:34] LABS: Estimated Average Glucose 275 mg/dl; Hemoglobin A1C 11.2 % (4.5-5.6)
[2022-08-04] MEDS ORDERED: PHARMACY GLYCEMIC MGMT CONSULT PRN (07:52)
[2022-08-04] MEDS ORDERED: POTASSIUM CHLORIDE CRTAB 20 MEQ TABCR PO ONE (07:54)
[2022-08-04] MEDS: DOXYCYCLINE HYCLATE 100 MG in DEXTROSE 5% 100 ML IV SCH ×2 (08:19→21:12)
[2022-08-04] MEDS: NICOTINE 14 MG/24 HR PATCH TD SCH (08:19)
[2022-08-04] MEDS: ASPIRIN 81 MG ECTAB PO SCH (08:20)
[2022-08-04] MEDS: CLOPIDOGREL BISULFATE 75 MG TAB PO SCH (08:20)
[2022-08-04] MEDS: INSULIN ASPART PER UNIT CHARGE SC SCH ×4 (08:20→21:35)
[2022-08-04] MEDS: METOPROLOL SUCC 50MG EXT REL TAB PO SCH ×2 (08:20→20:40)
[2022-08-04] MEDS: LIDOCAINE 5% 1 PATCH TD SCH (08:20)
[2022-08-04] MEDS: lisinopril 10 MG TAB PO SCH (08:21)
[2022-08-04] MEDS: PANTOprazole 40 MG TAB PO SCH (08:21)
[2022-08-04] MEDS: LANTUS PER UNIT CHARGE SQ SCH (08:23)
[2022-08-04] MEDS ORDERED: ATORVASTATIN 40 MG TAB PO SCH (09:00)
[2022-08-04] MEDS ORDERED: VANCOMYCIN LEVEL ONE (11:00)
--- NOTE | 2022-08-04 12:42 | Psychiatric Consultation ---
Date of Consultation August 04, 2022 Impression / Recommendations Impression 62 yo female with hx of delusional disorder, several hospitalizations over 15 year period, most recent 05/2022 in [place] (records pending). Patient has difficulty managing her multiple medical problems independently per family report to liaison. (1) Delusional disorder: Plan no indication for inpatient psychiatric admission, patient appears to be stable on current dose of Zyprexa. Blood sugars >300 on admission but well controlled here. Certainly Zyprexa not ideal from a metabolic standpoint on a longer term basis but would not change at this time. Psych meds are often decreased or held for QTc>500 and then slowly reintroduced. I'd be hesitant to decrease/hold Zyprexa given hospitalization within past 2 months. Defer to hospitalist on dosing of Cymbalta. Would typically hold or decrease by 30-60 mg until QTc <500. Psych History Identifying Data 62 yo female from [place], admit 08/02 for SIRS. consult is by Dr. Perez. Chief Complaint for hx of anxiety/paranoia and polypharmacy. History of Present Illness Patient with multiple medical co-morbidities currently in ICU. She is without psychiatric complaints at this time. 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 Apparently has 15 yr hx of similar, in past believe house was infested and/or people living in the basement. At one point was an outpatient of Dr. Pollack at [facility]. Has been hospitalized under 302s in the past. Cymbalta and Neurontin are not prescribed by psychiatric prescribers and are likely for neuropathy/pain indications. Donepezil is likely as decline in her self-care ADLs due to age related cognitive decline. No major cognitive disorder dx listed on chart. Denied visual byrne. lives alone with support from daughters. patient correctly identified her outpatient psychiatric nurse prac. Allergies Allergy/AdvReac Type Severity Reaction Status Date / Time latex Allergy Intermediate Rash Verified 04/28/22 13:20 aspirin Allergy Unknown UNKNOWN Verified 04/28/22 13:20 Home Medications Medication Instructions Recorded Confirmed Type clopidogrel 75 mg tablet 75 mg PO DAILY 03/16/21 08/02/22 History duloxetine 30 mg capsule,delayed 30 mg PO QAM 03/16/21 08/02/22 History release duloxetine 60 mg capsule,delayed 60 mg PO QAM 03/16/21 08/02/22 History release lisinopril 10 mg tablet 10 mg PO DAILY 03/16/21 08/02/22 History metoprolol succinate 50 mg See Rx Instructions .Route .COMPLEX 03/16/21 08/02/22 History tablet,extended release 24 hr topiramate 50 mg tablet 50 mg PO BID 03/16/21 08/02/22 History aspirin 81 mg tablet,delayed 81 mg PO DAILY 05/14/21 08/02/22 History release insulin aspart U-100 100 unit/mL 0 unit subcut TID 05/14/21 08/02/22 History (3 mL) subcutaneous pen (Novolog FlexPen U-100 Insulin aspart) nitroglycerin 0.4 mg sublingual 0.4 mg sublingual .PRN/UD PRN 05/14/21 08/02/22 History tablet Chest Pain acetaminophen 500 mg tablet 500 mg PO Q6H PRN Pain 08/23/21 08/02/22 History (Tylenol Extra Strength) donepezil 5 mg tablet 5 mg PO HS 08/23/21 08/02/22 History furosemide 20 mg tablet (Lasix) 60 mg PO DAILY 08/23/21 08/02/22 History gabapentin 300 mg capsule See Rx Instructions .Route .COMPLEX 08/23/21 08/02/22 History insulin glargine 100 unit/mL (3 35 unit subcut QAM 08/23/21 08/02/22 History mL) subcutaneous pen (Basaglar KwikPen U-100 Insulin) omeprazole 20 mg capsule,delayed 20 mg PO DAILY 08/23/21 08/02/22 History release cetirizine 10 mg tablet (Zyrtec) 10 mg PO DAILY 08/02/22 08/02/22 History ergocalciferol (vitamin D2) 1,250 1,250 mcg PO WK 08/02/22 08/02/22 History mcg (50,000 unit) capsule (Vitamin D2) melatonin 5 mg tablet 5 mg PO HS 08/02/22 08/02/22 History olanzapine 7.5 mg tablet 7.5 mg PO HS 08/02/22 08/02/22 History Patient History Medical History Abscess of aorta Acute on chronic HFrEF (heart failure with reduced ejection fraction) Anxiety Carotid stenosis according to records from 2019 CEA was recommended but patient declined. no objective quantification available Carpal tunnel syndrome, left Chronic congestive heart failure with left ventricular diastolic dysfunction Coronary artery disease Diabetes mellitus, type 2 DVT prophylaxis Encounter for pre-operative examination Fracture of left tibial plateau HFrEF (heart failure with reduced ejection fraction) History of left below knee amputation HTN (hypertension) LBBB (left bundle branch block) MRSA bacteremia Osteomyelitis Psychotic disorder Right foot pain Tobacco use disorder Ulnar neuropathy at elbow of left upper extremity Surgical History Status post cholecystectomy Status post coronary artery bypass grafting Status post hysterectomy Status post ORIF of fracture of ankle R, 2016 Family History Other Diabetes Heart disease Social History Smoking Status: Heavy tobacco smoker Tobacco Type: Cigarettes packs per day: 1; Cigarettes Per Day: 10; Second Hand Exposure: Yes; Do You Dip or Chew Tobacco: No; Tobacco Cessation Education Requested by Patient: No Hx Alcohol Use: No Hx Substance Use: No Preferred Language: Andorran Communication Ability: Impaired Aesthetician Required: No Beliefs That Will Affect Care: None marital status: Current Living Situation: Alone Current Living Situation Comment: house Other Information That Helps Us Care for You: No Feels Safe at Home: Yes Safety Concerns: Feels Safe At This Time Assistive Devices: Wheelchair Physical Exam Psychiatric: Orientation: alert, oriented to person, oriented to place and oriented to time (generally) Eye Contact: good eye contact Motor Behavior: no abnormal motor movements Speech: normal rate/rhythm/volume of speech Affect: euthymic affect Mood: no depressed mood Thought Process: linear/logical thought process and + concrete thought process Thought Content: not paranoid and no delusions Suicidal Thoughts: denies suicidal thoughts Homicidal Thoughts: denies homicidal thoughts Hallucinations: no auditory hallucinations and no visual hallucinations Cognition: attention grossly intact and language grossly intact Vital Signs (Past 24 Hours): Last Vital Signs Temp 36.6 C 08/04/22 07:00 Pulse 114 H 08/04/22 08:00 Resp 20 08/04/22 07:00 BP 155/82 H 06/22/23 07:00 Pulse Ox 94 08/04/22 07:00 O2 Del Method Nasal Cannula 08/04/22 08:00 O2 Flow Rate 2 08/04/22 08:00 Review of Systems All systems reviewed & are unremarkable except as noted in HPI & below Results & Data (PSY) Laboratory Results 08/04/22 08/04/22 08/04/22 Range/Units 11:10 07:10 04:41 WBC (4.8-10.8) K/ul RBC (4.20-5.40) M/uL Hgb (12.0-16.0) g/dl Hct (37.0-47.0) % MCV (80.0-100.0) fL MCH (25.0-34.0) pg MCHC (32.0-36.0) g/dL RDW Std Deviation (36.4-46.3) fL RDW Coeff of Fabio (11.5-14.5) % Plt Count (130-400) K/uL MPV (9.4-12.4) fL Sodium 141 (136-145) mmol/L Potassium 3.4 L (3.5-5.1) mmol/L Chloride 114 H (98-107) mmol/L Carbon Dioxide 22 (21-32) mmol/L Anion Gap 5 (3-11) BUN 8 (6-23) mg/dl Creatinine 0.85 (0.6-1.2) mg/dl Est Cr Clr Drug Dosing 63.2 ml/min Est GFR ( Amer) 83.9 ml/min Est GFR (Non-Af Amer) 72.4 ml/min BUN/Creatinine Ratio 9.4 L (10-20) Glucose 113 H (70-99(Fasting)) mg/dl POC Glucose 251 H 121 H (70-99) mg/dl Estimat Average Glucose mg/dl Hemoglobin A1c (4.5-5.6) % Calcium 8.4 L (8.6-10.3) mg/dl Triglycerides 325 H (0-150) mg/dl Cholesterol 271 H (0-200) mg/dl LDL Cholesterol, Calc 184 mg/dl VLDL Cholesterol, Calc 65 H (0-30) mg/dl HDL Cholesterol 22 mg/dl Cholesterol/HDL Ratio 12.3 H (0-5) Hepatitis C Ab (EIA) (NON-REACTIVE) 08/04/22 08/04/22 08/03/22 Range/Units 04:41 04:41 21:12 WBC 8.46 (4.8-10.8) K/ul RBC 3.60 L (4.20-5.40) M/uL Hgb 11.2 L (12.0-16.0) g/dl Hct 33.2 L (37.0-47.0) % MCV 92.2 (80.0-100.0) fL MCH 31.1 (25.0-34.0) pg MCHC 33.7 (32.0-36.0) g/dL RDW Std Deviation 45.7 (36.4-46.3) fL RDW Coeff of Fabio 13.6 (11.5-14.5) % Plt Count 210 (130-400) K/uL MPV 10.7 (9.4-12.4) fL Sodium (136-145) mmol/L Potassium (3.5-5.1) mmol/L Chloride (98-107) mmol/L Carbon Dioxide (21-32) mmol/L Anion Gap (3-11) BUN (6-23) mg/dl Creatinine (0.6-1.2) mg/dl Est Cr Clr Drug Dosing ml/min Est GFR ( Amer) ml/min Est GFR (Non-Af Amer) ml/min BUN/Creatinine Ratio (10-20) Glucose (70-99(Fasting)) mg/dl POC Glucose 165 H (70-99) mg/dl Estimat Average Glucose 275 mg/dl Hemoglobin A1c 11.2 H (4.5-5.6) % Calcium (8.6-10.3) mg/dl Triglycerides (0-150) mg/dl Cholesterol (0-200) mg/dl LDL Cholesterol, Calc mg/dl VLDL Cholesterol, Calc (0-30) mg/dl HDL Cholesterol mg/dl Cholesterol/HDL Ratio (0-5) Hepatitis C Ab (EIA) (NON-REACTIVE) 08/03/22 08/03/22 Range/Units 16:32 02:25 WBC (4.8-10.8) K/ul RBC (4.20-5.40) M/uL Hgb (12.0-16.0) g/dl Hct (37.0-47.0) % MCV (80.0-100.0) fL MCH (25.0-34.0) pg MCHC (32.0-36.0) g/dL RDW Std Deviation (36.4-46.3) fL RDW Coeff of Fabio (11.5-14.5) % Plt Count (130-400) K/uL MPV (9.4-12.4) fL Sodium (136-145) mmol/L Potassium (3.5-5.1) mmol/L Chloride (98-107) mmol/L Carbon Dioxide (21-32) mmol/L Anion Gap (3-11) BUN (6-23) mg/dl Creatinine (0.6-1.2) mg/dl Est Cr Clr Drug Dosing ml/min Est GFR ( Amer) ml/min Est GFR (Non-Af Amer) ml/min BUN/Creatinine Ratio (10-20) Glucose (70-99(Fasting)) mg/dl POC Glucose 127 H (70-99) mg/dl Estimat Average Glucose mg/dl Hemoglobin A1c (4.5-5.6) % Calcium (8.6-10.3) mg/dl Triglycerides (0-150) mg/dl Cholesterol (0-200) mg/dl LDL Cholesterol, Calc mg/dl VLDL Cholesterol, Calc (0-30) mg/dl HDL Cholesterol mg/dl Cholesterol/HDL Ratio (0-5) Hepatitis C Ab (EIA) NON-REACTIVE (NON-REACTIVE) Diagnostic Findings QTc most recent [id number] Medications Administered Acetaminophen (Acetaminophen 325 Mg Tab) 650 mg PO Q4H PRN PRN Reason: Pain or Fever Stop: 09/01/22 16:43 Last Admin: 08/03/22 11:58 Dose: 650 mg Documented By: ANUSHA Aspirin (Aspirin 81 Mg Ectab) 81 mg PO DAILY [facility] Stop: 09/02/22 08:59 Last Admin: 08/04/22 08:20 Dose: 81 mg Documented By: Admin: 08/03/22 10:21 Dose: Not Given Documented By: ANUSHA Atorvastatin Calcium (Atorvastatin 40 Mg Tab) 40 mg PO QAM [facility] Stop: 09/03/22 08:59 Last Admin: 08/04/22 11:20 Dose: 40 mg Documented By: GPF Clopidogrel Bisulfate (Clopidogrel Bisulfate 75 Mg Tab) 75 mg PO DAILY [facility] Stop: 09/02/22 08:59 Last Admin: 08/04/22 08:20 Dose: 75 mg Documented By: Admin: 08/03/22 10:21 Dose: Not Given Documented By: KJL Donepezil HCl (Donepezil Hcl 5 Mg Tab) 5 mg PO [facility] Stop: 09/01/22 20:59 Last Admin: 08/03/22 21:13 Dose: 5 mg Documented By: Admin: 08/03/22 00:54 Dose: Not Given Documented By: TMG Enoxaparin Sodium (Enoxaparin Inj 40 Mg/0.4 Ml Syr) 40 mg SQ [facility] Stop: 09/01/22 20:59 Last Admin: 08/03/22 21:13 Dose: 40 mg Documented By: Admin: 08/02/22 23:19 Dose: 40 mg Documented By: Gabapentin (Gabapentin 600 Mg Tab) 600 mg PO [facility] Stop: 09/01/22 20:59 Last Admin: 08/03/22 00:54 Dose: Not Given Documented By: TMG Piperacillin Sod/Tazobactam (Sod 4.5 gm/ Dextrose) 120 mls @ 30 mls/hr IV Q8H [facility]; Protocol Stop: 08/12/22 23:29 Last Admin: 08/04/22 10:01 Dose: 30 mls/hr Documented By: Infusion: 08/04/22 05:25 Dose: 0 mls/hr Documented By: Admin: 08/04/22 00:54 Dose: 30 mls/hr Documented By: Infusion: 08/03/22 20:12 Dose: 0 mls/hr Documented By: Admin: 08/03/22 15:49 Dose: 30 mls/hr Documented By: Infusion: 08/03/22 11:45 Dose: 0 mls/hr Documented By: Admin: 08/03/22 07:45 Dose: 30 mls/hr Documented By: Infusion: 08/03/22 05:03 Dose: 0 mls/hr Documented By: Admin: 08/03/22 00:26 Dose: 30 mls/hr Documented By: TMG Promethazine HCl 12.5 mg/ (Sodium Chloride) 50.5 mls @ 202 mls/hr IV Q6H PRN PRN Reason: Nausea And Vomiting Stop: 09/01/22 22:10 Last Infusion: 08/04/22 05:26 Dose: 0 mls/hr Documented By: Admin: 08/04/22 05:02 Dose: 202 mls/hr Documented By: Infusion: 08/04/22 01:01 Dose: 0 mls/hr Documented By: Admin: 08/03/22 23:03 Dose: 202 mls/hr Documented By: Infusion: 08/03/22 01:05 Dose: 0 mls/hr Documented By: Admin: 08/03/22 00:09 Dose: 202 mls/hr Documented By: NORBERTO Doxycycline Hyclate 100 mg/ (Dextrose) 110 mls @ 50 mls/hr IV Q12H [facility] Stop: 08/13/22 08:29 Last Infusion: 08/04/22 10:22 Dose: 0 mls/hr Documented By: Admin: 08/04/22 08:19 Dose: 50 mls/hr Documented By: Infusion: 08/04/22 01:01 Dose: 0 mls/hr Documented By: Admin: 08/03/22 20:12 Dose: 50 mls/hr Documented By: Infusion: 08/03/22 11:30 Dose: 0 mls/hr Documented By: Admin: 08/03/22 09:18 Dose: 50 mls/hr Documented By: ANUSHA Acetaminophen (Ofirmev) 1,000 mg in 100 mls @ 400 mls/hr IV Q8H PRN PRN Reason: Pain or Fever Stop: 08/06/22 16:11 Last Infusion: 08/03/22 16:43 Dose: 0 mls/hr Documented By: Admin: 08/03/22 16:28 Dose: 400 mls/hr Documented By: ANUSHA Lactated Ringer's (Lr) 1,000 mls @ 50 mls/hr IV .Q20H [facility] Stop: 08/05/22 08:14 Last Admin: 08/03/22 16:30 Dose: 50 mls/hr Documented By: ANUSHA Insulin Aspart (Insulin Aspart Per Unit Charge) 0 units SC ACHS [facility] Stop: 09/01/22 16:43 Last Admin: 08/04/22 11:56 Dose: 12 units Documented By: JACINDA Co-signed By: LYNDON Admin: 08/04/22 08:20 Dose: 6 units Documented By: GPDavid Co-signed By: EMMA Admin: 08/03/22 21:20 Dose: 1 units Documented By: WANDER Co-signed By: ROMMEL Admin: 08/03/22 17:15 Dose: 2 units Documented By: ANUSHA Co-signed By: ZARA Admin: 08/03/22 12:04 Dose: Not Given Documented By: Admin: 08/03/22 07:52 Dose: Not Given Documented By: Admin: 08/02/22 23:18 Dose: 2 units Documented By: TIMOTHY Co-signed By: BERTO Admin: 08/02/22 18:14 Dose: 12 units Documented By: ROSAURA Co-signed By: ANUSHA(2) Insulin Glargine (Lantus Per Unit Charge) 0 - 30 units SQ DAILY [facility]; Protocol Stop: 09/02/22 08:59 Last Admin: 08/04/22 08:23 Dose: 15 units Documented By: JACINDA Co-signed By: EMMA Admin: 08/03/22 09:19 Dose: Not Given Documented By: ANUSHA Labetalol HCl (Labetalol Hcl Iv 5 Mg/Ml 20ml) 10 mg IV Q6H PRN PRN Reason: SBP>180 or DBP>100 Stop: 09/02/22 16:11 Last Admin: 08/03/22 16:30 Dose: 10 mg Documented By: ANUSHA Co-signed By: ZARA Lidocaine (Lidocaine 5% 1 Patch) 1 patch TD QAM [facility] Stop: 09/02/22 15:44 Last Admin: 08/04/22 08:20 Dose: 1 patch Documented By: Admin: 08/03/22 16:35 Dose: 1 patch Documented By: ANUSHA Lisinopril (Lisinopril 10 Mg Tab) 10 mg PO DAILY [facility] Stop: 09/02/22 08:59 Last Admin: 08/04/22 08:21 Dose: 10 mg Documented By: Admin: 08/03/22 10:22 Dose: Not Given Documented By: ANUSHA Melatonin (Melatonin 3 Mg Tab) 6 mg PO HS [facility] Stop: 09/01/22 20:59 Last Admin: 08/03/22 00:54 Dose: Not Given Documented By: TMG Metoprolol Succinate (Metoprolol Succ 50mg Ext Rel Tab) 50 mg PO HS [facility] Stop: 09/01/22 20:59 Last Admin: 08/03/22 21:13 Dose: 50 mg Documented By: Admin: 08/03/22 00:54 Dose: Not Given Documented By: ANJALIG Metoprolol Succinate (Metoprolol Succ 50mg Ext Rel Tab) 100 mg PO DAILY [facility] Stop: 09/02/22 08:59 Last Admin: 08/04/22 08:20 Dose: 100 mg Documented By: Admin: 08/03/22 10:22 Dose: Not Given Documented By: ANUSHA Metoprolol Tartrate (Metoprolol Tartrate 1 Mg/Ml Vial) 2.5 mg IV Q4H PRN PRN Reason: Tachycardia> 100 Stop: 09/02/22 06:21 Last Admin: 08/03/22 23:03 Dose: 2.5 mg Documented By: WANDER Simonscellaneous (Remove Nicoderm Patch) 1 each N/A DAILY@0859 [facility] Stop: 09/02/22 08:58 Last Admin: 08/04/22 08:21 Dose: 1 each Documented By: Admin: 08/03/22 09:20 Dose: 1 each Documented By: ANUSHA Misclydeaneous (Remove Lidoderm Patch) 1 each N/A DAILY@2100 [facility] Stop: 09/02/22 22:59 Last Admin: 08/04/22 00:54 Dose: 1 each Documented By: WANDER Nicotine (Nicotine 14 Mg/24 Hr Patch) 14 mg TD QAM [facility] Stop: 09/01/22 16:43 Last Admin: 08/04/22 08:19 Dose: 14 mg Documented By: Admin: 08/03/22 09:23 Dose: 14 mg Documented By: Admin: 08/02/22 18:30 Dose: 14 mg Documented By: ROSAURA Olanzapine (Olanzapine 2.5 Mg Tab) 7.5 mg PO [facility] Stop: 09/01/22 20:59 Last Admin: 08/03/22 00:54 Dose: Not Given Documented By: NORBERTO Pantoprazole Sodium (Pantoprazole 40 Mg Tab) 40 mg PO DAILY [facility] Stop: 09/02/22 08:59 Last Admin: 08/04/22 08:21 Dose: 40 mg Documented By: Admin: 08/03/22 10:22 Dose: Not Given Documented By: ANUSHA Topiramate (Topiramate 50 Mg Tab) 50 mg PO BID [facility] Stop: 09/01/22 20:59 Last Admin: 08/03/22 00:55 Dose: Not Given Documented By: NORBERTO Coding Level of Care Code 70208 U Intl Hosp Care Lvl 2 Diagnoses Delusional disorder F22
--- NOTE | 2022-08-04 12:52 | Pharmacy Report ---
Pharmacy Glycemic Short Note 2 - Date of Service August 04, 2022 - Glycemic Short BSG Results (Last 24 hours): 08/03/22 08/03/22 08/04/22 16:32 21:12 04:41 Glucose 113 H POC Glucose 127 H 165 H 08/04/22 08/04/22 07:10 11:10 Glucose POC Glucose 121 H 251 H OUTPATIENT ANTIDIABETIC REGIMEN: * Insulin glargine 35 units QAM * Insulin aspart sliding scale * A1c 11.2% 08/04/22 ASSESSMENT: * Patient admitted with possible infection, currently on doxycycline/zosyn. * BSGs initially elevated and then trended downward with initiation of insulin. * Fasting this morning 121 mg/dL without basal given yesterday, received 15 units this morning per scale- continue to monitor * Lunch BSG elevated today, will tighten carb ratio * Add overnight checks PLAN FOR INPATIENT GLYCEMIC CONTROL: * Hold outpatient oral diabetes medications * Basal insulin * Lantus 0/15/24 units qAM * Bolus insulin * NovoLog per scale ACHS or Q6hrs while NPO * Goal Range: Low 110 mg/dL - High 140 mg/dL * Correction Factor: 35 mg/dL/unit * Nutritional / Prandial insulin per carb ratio of 1 unit per 9 grams CHO consumed
--- NOTE | 2022-08-04 14:52 | Hospitalist Progress Note ---
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 Sepsis Possible Sources: Lyme's disease, proctocolitis, ? UTI Lactic acidosis Acute metabolic encephalopathy secondary to above H/O MRSA bacteremia --CXR:Cardiomegaly with no active disease in the chest. --ABD CT:No definite acute findings within the abdomen or pelvis. Apparent wall thickening of portions of the colon and rectum. This is likely due to underdistention however a mild nonspecific proctocolitis could appear similar. No bowel obstruction. Extensive aortoiliac atherosclerotic plaque. Suspected severe stenosis of the proximal right common iliac artery. --Head CT:Motion degraded exam. No acute intracranial abnormality or calvarial fracture. --Blood Cx: No growth to date --Urine Cx: Probable skin win -- Lyme serology positive for IgM antibody (Panel pending) -- Anaplasma smear showed no intracytoplasmic neutrophilic inclusions --Serological test for other tickborne illness pending Lactic acidosis resolved with IV fluids Continue Zosyn, doxycycline for now Mental status back to baseline Appetite slowly improving If diarrhea persistent, Rule out c Diff Hypertensive urgency Elevated troponin--likely demand ischemia -- Patient denies any chest pain ECHO: Unchanged posterior wall hypokinesis and degree of mitral regurgitation when compared to 05/15/2021 Increase lisinopril to 20 mg daily Increase metoprolol succinate to 100 mg twice daily Adjust antihypertensives as needed Right common iliac artery stenosis --Discussed with vascular surgery Dr.James Ángel Guerrier today: Reported similar finding on CT scan last year, no acute intervention needed Continue aspirin, statin, Plavix Needs follow-up with vascular surgery as outpatient Hypokalemia replete as needed Monitor H/O CAD S/P CABG x 4 H/O MV endocarditis/periaortic abscess Severe MR Continue aspirin, Plavix, lisinopril, metoprolol Chronic HFpEf Home diuretics on hold Monitor volume status Resume diuretics as able DM II continue Insulin per protocol HbA1c:11.2 Monitor BGs life educator consulted Chronic Tobacco abuse Encourage cessation Continue nicotine patch Prolonged QTc Avoid QTc prolonging meds as able Recheck EKG tomorrow Anxiety/Paranoia on Cymbalta, donepezil and Seroquel Appreciate psychiatry input Resume Cymbalta at reduced dose given prolonged QTC Resume home meds as able DVT Px: SQ Lovenox Code Status FULL CODE Admission and Anticipated Discharge Date Admission Date: August 02, 2022 Subjective Patient is seen and examined at bedside Mental status back to baseline States feeling much better today Reports having diarrhea Appetite improved per patient Nausea, abdominal discomfort resolved Denies any chest pain, dizziness, dyspnea Afebrile today Discussed with psychiatry today Review of Systems Review of Systems: All systems reviewed & are unremarkable except as noted in Subjective Physical Exam Physical Exam: Physical Exam: Vitals signs as noted above General Appearance:Moderately built and nourished, no apparent distress Head: normocephalic, Atraumatic Eyes: normal inspection, EOMI Neck: supple, Trachea midline Respiratory/Chest: Decreased breath sounds, CTA, No accessory muscle use Cardiovascular: S1, S2, No murmur Abdomen/GI:Soft, Non tender, Bowel sounds present Extremities/Musculoskeletal:normal inspection, no edema, Left BKA Neurologic/Psych:AAOX3, grossly no focal neurological deficits Skin: normal color, warm Results & Data Results & Data Vital Signs (Past 12 Hours) Vital Signs Temp Pulse Pulse Resp BP Pulse Ox O2 Del Method 08/04/22 08:00 Nasal Cannula 08/04/22 08:00 114 H 08/04/22 07:00 36.6 C 78 20 155/82 H 94 Nasal Cannula 08/04/22 03:53 37.2 C 98 H 16 172/70 H 97 Nasal Cannula O2 Flow Rate 08/04/22 08:00 2 08/04/22 08:00 08/04/22 07:00 2 08/04/22 03:53 2 Laboratory Results Short CBC 08/04/22 Range/Units 04:41 WBC 8.46 (4.8-10.8) K/ul Hgb 11.2 L (12.0-16.0) g/dl Hct 33.2 L (37.0-47.0) % Plt Count 210 (130-400) K/uL BMP 08/04/22 04:41 Sodium 141 Potassium 3.4 L Chloride 114 H Carbon Dioxide 22 BUN 8 Creatinine 0.85 Glucose 113 H Calcium 8.4 L
[2022-08-04] MEDS: ADVANCED PROBIOTIC 1250 MG CAPSULE PO SCH (15:29)
[2022-08-04] MEDS: LACTATED RINGER'S 1,000 ML IV SCH (15:30)
[2022-08-04] MEDS: ACETAMINOPHEN 1,000 MG/100 ML VIAL IV PRN (18:46)
[2022-08-04] MEDS ORDERED: SIMETHICONE 80 MG CHEW PO ONE (20:34)
[2022-08-04] MEDS: DONEPEZIL HCL 5 MG TAB PO SCH (20:38)
[2022-08-04] MEDS: ENOXAPARIN INJ 40 MG/0.4 ML SYR SQ SCH (20:39)
[2022-08-04] MEDS: GABAPENTIN 300 MG CAP PO SCH (21:35)
[2022-08-04] MEDS ORDERED: MELATONIN 3 MG TAB PO ONE (22:40)
[2022-08-04] MEDS ORDERED: FAMOTIDINE 40 MG TABLET PO ONE (22:57)
[2022-08-05] MEDS: INSULIN ASPART PER UNIT CHARGE SC SCH ×6 (00:06→20:52)
[2022-08-05] MEDS: PIPERACILLIN/TAZOBACTAM 4.5 GM in DEXTROSE 5% 100 ML IV SCH ×3 (00:06→16:41)
[2022-08-05 05:13] LABS: Hematocrit (blood only) 31.8 % (37.0-47.0); Hemoglobin 10.3 g/dl (12.0-16.0); Mean Corpuscular Hemoglobin 30.4 pg (25.0-34.0); Mean Corpuscular Hgb Conc 32.4 g/dL (32.0-36.0); Mean Corpuscular Volume 93.8 fL (80.0-100.0); Platelet Count 173 K/uL (130-400); RDW Coefficient of Variation 13.8 % (11.5-14.5); RDW Standard Deviation 47.1 fL (36.4-46.3); Red Blood Count 3.39 M/uL (4.20-5.40); White Blood Count 9.95 K/ul (4.8-10.8)
[2022-08-05 05:24] LABS: BUN Creatinine Ratio 8.2 (10-20); Calcium 8.4 mg/dl (8.6-10.3); Creatinine Clr Calc Pharmacy 63.2 ml/min; Est GFR (African American) 83.9 ml/min; Est GFR (Non-African American) 72.4 ml/min; Magnesium 1.9 mg/dl (1.7-2.4); Potassium 3.7 mmol/L (3.5-5.1)
--- NOTE | 2022-08-05 07:41 | Hospitalist Progress Note ---
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 Sepsis Possible Sources: Lyme disease, proctocolitis, ? UTI Acute metabolic encephalopathy secondary to above H/O MRSA bacteremia --CXR:Cardiomegaly with no active disease in the chest. --ABD CT:No definite acute findings within the abdomen or pelvis. Apparent wall thickening of portions of the colon and rectum. This is likely due to underdistention however a mild nonspecific proctocolitis could appear similar. No bowel obstruction. Extensive aortoiliac atherosclerotic plaque. Suspected severe stenosis of the proximal right common iliac artery. --Head CT:Motion degraded exam. No acute intracranial abnormality or calvarial fracture. --Blood Cx: No growth to date --Urine Cx: Probable skin wni -- Lyme serology positive for IgM antibody and she has clinically improved on doxycycline. -- Anaplasma smear showed no intracytoplasmic neutrophilic inclusions Lactic acidosis resolved with IV fluids-she has been resuscitated. Given negative Ucx and blood culture, will stop all abx aside from the doxycycline at this time. Mental status back to baseline Appetite is improved. If diarrhea persistent, Rule out c Diff Hypoxia-appears to have increased oxygen needs today for comfort. Cont to wean patient as appropriate based on oxygen saturations CXR repeat now after recent resuscitation for sepsis to ensure no developing pulmonary edema Restart home Lasix in am. Hypertensive urgency Increase lisinopril to 20 mg daily Increase metoprolol succinate to 100 mg twice daily Adjust antihypertensives as needed Elevated troponin--likely demand ischemia -- Patient denies any chest pain ECHO: Unchanged posterior wall hypokinesis and degree of mitral regurgitation when compared to 05/15/2021 Right common iliac artery stenosis --Discussed with vascular surgery Dr.James Ángel Guerrier per previous hospitalist, Reported similar finding on CT scan last year, no acute intervention needed Continue aspirin, statin, Plavix Needs follow-up with vascular surgery as outpatient for monitoring. Hypokalemia replete as needed Monitor H/O CAD S/P CABG x 4 H/O MV endocarditis/periaortic abscess Severe MR Continue aspirin, Plavix, lisinopril, metoprolol Chronic HFpEf Home diuretics on hold Monitor volume status Resume daily home lasix in am DM II-uncontrolled continue Insulin per protocol HbA1c:11.2 She is at inpatient glycemic goal care manager cna consulted Chronic Tobacco abuse Encourage cessation., however, patient is not interested in quitting at this time. Continue nicotine patch Prolonged QTc, resolved Avoid QTc prolonging meds as able and cont current Cymbalta and olanzapine for now. Recheck EKG tomorrow Anxiety/Paranoia on Cymbalta, donepezil and Seroquel Appreciate psychiatry input Resume Cymbalta at 60mg PO daily. Home dose is 90mg daily, will likely cont at current dose and ask psych to adjust outpatient. DVT Px:SQ Lovenox FULL CODE Dispo-to home Marci Kiser DO [facility] Hospitalist Admission and Anticipated Discharge Date Admission Date: August 02, 2022 Subjective 62 yo F admitted with UTI and Lyme disease today she reports feeling SOB She has requested to RN to increase the supplemental oxygen and is at 4LPM to stay comfortable at rest. She reports slight productive cough No fevers Feels improved since admission Tolerating a diet. Review of Systems Review of Systems: All systems were reviewed and negative except as indicated on subjective above. Physical Exam Physical Exam: CONSTITUTIONAL: WNWD, vitals as above, generally well-appearing, NAD EYES: normal conjunctivae, no scleral icterus ENT: external ear and nose normal, MMM NECK: trachea midline RESPIRATORY: rhonchi at right base, otherwise CTA bilaterally without rales or wheezes, normal respiratory effort CARDIOVASCULAR: regular rate and rhythm, S1 and 2 heard without murmurs, gallops or rubs, no JVD, no peripheral edema CHEST: inspection of chest was normal GASTROINTESTINAL: soft, nontender, ND, no guarding MUSCULOSKELETAL: strength 5/5 throughout, head is normocephalic and atraumatic, left lower residual limb SKIN: warm and dry NEUROLOGIC: CN 2-12 grossly intact, no sensory deficit, normal cognition, normal speech, no tremor PSYCHIATRIC: alert cooperative and oriented to person, place and time. Euthymic mood, makes good eye contact, language grossly intact, recent and remote memory grossly intact. Results & Data Results & Data Vital Signs (Past 12 Hours) Vital Signs Temp Pulse Pulse Resp BP Pulse Ox O2 Del Method 08/05/22 03:12 37.0 C 70 16 132/70 98 Nasal Cannula 08/05/22 01:05 75 08/04/22 23:04 36.7 C 78 24 134/92 98 Nasal Cannula O2 Flow Rate 08/05/22 03:12 4 08/05/22 01:05 08/04/22 23:04 2 Laboratory Results Short CBC 08/05/22 Range/Units 04:40 WBC 9.95 (4.8-10.8) K/ul Hgb 10.3 L (12.0-16.0) g/dl Hct 31.8 L (37.0-47.0) % Plt Count 173 (130-400) K/uL BMP 08/05/22 04:40 Sodium 139 Potassium 3.7 Chloride 112 H Carbon Dioxide 22 BUN 7 Creatinine 0.85 Glucose 142 H Calcium 8.4 L Medications Administered Current Inpatient Medications Acetaminophen (Acetaminophen 325 Mg Tab) 650 mg PO Q4H PRN PRN Reason: Pain or Fever Stop: 09/01/22 16:43 Last Admin: 08/03/22 11:58 Dose: 650 mg Al Hydrox/Mg Hydrox/Simethicone (Aluminum/Magnesium Susp 30 Ml Udc) 15 ml PO Q4H PRN PRN Reason: Dyspepsia Stop: 09/01/22 16:43 Aspirin (Aspirin 81 Mg Ectab) 81 mg PO DAILY [facility] Stop: 09/02/22 08:59 Last Admin: 08/04/22 08:20 Dose: 81 mg Atorvastatin Calcium (Atorvastatin 40 Mg Tab) 80 mg PO QAM SAMANTHA Stop: 09/04/22 08:59 Clopidogrel Bisulfate (Clopidogrel Bisulfate 75 Mg Tab) 75 mg PO DAILY SAMANTHA Stop: 09/02/22 08:59 Last Admin: 08/04/22 08:20 Dose: 75 mg Dextrose (Dextrose 50% 50 Ml Syringe) 25 - 50 ml IV UD PRN; Protocol PRN Reason: Hypoglycemia Protocol Stop: 09/01/22 16:43 Donepezil HCl (Donepezil Hcl 5 Mg Tab) 5 mg PO HS SAMANTHA Stop: 09/01/22 20:59 Last Admin: 08/04/22 20:38 Dose: 5 mg Duloxetine HCl (Duloxetine Hcl 60 Mg Cap) 60 mg PO QAM SAMANTHA Stop: 09/02/22 08:59 Duloxetine HCl (Duloxetine Hcl 30 Mg Cap) 30 mg PO QAM SAMANTHA Stop: 09/02/22 08:59 Enoxaparin Sodium (Enoxaparin Inj 40 Mg/0.4 Ml Syr) 40 mg SQ HS SAMANTHA Stop: 09/01/22 20:59 Last Admin: 08/04/22 20:39 Dose: 40 mg Gabapentin (Gabapentin 600 Mg Tab) 600 mg PO HS SAMANTHA Stop: 09/01/22 20:59 Last Admin: 08/03/22 00:54 Dose: Not Given Gabapentin (Gabapentin 300 Mg Cap) 300 mg PO BID SAMANTHA Stop: 09/03/22 20:59 Last Admin: 08/04/22 21:35 Dose: 300 mg Glucagon (Glucagon For Inj 1 Mg Vial) 1 mg SQ UD PRN; Protocol PRN Reason: Hypoglycemia Protocol Stop: 09/01/22 16:43 Glucose (Glucose 10 Tab/Tube) 4 - 8 tab PO UD PRN; Protocol PRN Reason: Hypoglycemia Treatment Stop: 09/01/22 16:43 Glucose (Glucose 40% Gel 15 Gm Tube) 15 - 30 gm PO UD PRN; Protocol PRN Reason: Hypoglycemia Protocol Stop: 09/01/22 16:43 Piperacillin Sod/Tazobactam (Sod 4.5 gm/ Dextrose) 120 mls @ 30 mls/hr IV Q8H SAMANTHA; Protocol Stop: 08/12/22 23:29 Last Infusion: 08/05/22 04:37 Dose: Infused Promethazine HCl 12.5 mg/ (Sodium Chloride) 50.5 mls @ 202 mls/hr IV Q6H PRN PRN Reason: Nausea And Vomiting Stop: 09/01/22 22:10 Last Infusion: 08/04/22 05:26 Dose: Infused Doxycycline Hyclate 100 mg/ (Dextrose) 110 mls @ 50 mls/hr IV Q12H SAMANTHA Stop: 08/13/22 08:29 Last Infusion: 08/04/22 23:34 Dose: Infused Acetaminophen (Ofirmev) 1,000 mg in 100 mls @ 400 mls/hr IV Q8H PRN PRN Reason: Pain or Fever Stop: 08/06/22 16:11 Last Infusion: 08/04/22 20:32 Dose: Infused Lactated Ringer's (Lr) 1,000 mls @ 50 mls/hr IV .Q20H [facility] Stop: 08/05/22 08:14 Last Infusion: 08/05/22 01:05 Dose: 0 mls/hr Insulin Aspart (Insulin Aspart Per Unit Charge) 0 units SC ACHS SAMANTHA Stop: 09/01/22 16:43 Last Admin: 08/04/22 21:35 Dose: Not Given Insulin Glargine (Lantus Per Unit Charge) 0 - 30 units SQ DAILY [facility]; Protocol Stop: 09/02/22 08:59 Last Admin: 08/04/22 08:23 Dose: 15 units Labetalol HCl (Labetalol Hcl Iv 5 Mg/Ml 20ml) 10 mg IV Q6H PRN PRN Reason: SBP>180 or DBP>100 Stop: 09/02/22 16:11 Last Admin: 08/03/22 16:30 Dose: 10 mg Lactobacillus Acidophilus (Advanced Probiotic 1250 Mg Capsule) 2 cap PO DAILY [facility] Stop: 09/03/22 12:59 Last Admin: 08/04/22 15:29 Dose: 2 cap Lidocaine (Lidocaine 5% 1 Patch) 1 patch TD QAM SAMANTHA Stop: 09/02/22 15:44 Last Admin: 08/04/22 08:20 Dose: 1 patch Lisinopril (Lisinopril 20 Mg Tab) 20 mg PO DAILY [facility] Stop: 09/04/22 08:59 Magnesium Hydroxide (Magnesium Hydroxide Susp 30 Ml Udc) 30 ml PO Q12H PRN PRN Reason: Constipation Stop: 09/01/22 16:43 Melatonin (Melatonin 3 Mg Tab) 6 mg PO HS [facility] Stop: 09/01/22 20:59 Last Admin: 08/03/22 00:54 Dose: Not Given Metoprolol Succinate (Metoprolol Succ 50mg Ext Rel Tab) 100 mg PO DAILY [facility] Stop: 09/02/22 08:59 Last Admin: 08/04/22 08:20 Dose: 100 mg Metoprolol Succinate (Metoprolol Succ 50mg Ext Rel Tab) 100 mg PO HS [facility] Stop: 09/03/22 20:59 Last Admin: 08/04/22 20:40 Dose: 100 mg Metoprolol Tartrate (Metoprolol Tartrate 1 Mg/Ml Vial) 2.5 mg IV Q4H PRN PRN Reason: Tachycardia> 100 Stop: 09/02/22 06:21 Last Admin: 08/03/22 23:03 Dose: 2.5 mg Miscellaneous (Carbohydrates For Hypoglycemia ) 15 - 30 gm PO UD PRN PRN Reason: Hypoglycemia Protocol Stop: 09/01/22 16:43 Miscellaneous (Remove Nicoderm Patch) 1 each N/A DAILY@0859 [facility] Stop: 09/02/22 08:58 Last Admin: 08/04/22 08:21 Dose: 1 each Miscellaneous (Remove Lidoderm Patch) 1 each N/A DAILY@2100 [facility] Stop: 09/02/22 22:59 Last Admin: 08/04/22 20:40 Dose: 1 each Miscellaneous Information (Pharmacy Glycemic Mgmt Consult) 1 each N/A UD PRN; Protocol PRN Reason: Consult Stop: 09/03/22 07:51 Nicotine (Nicotine 14 Mg/24 Hr Patch) 14 mg TD QAM [facility] Stop: 09/01/22 16:43 Last Admin: 08/04/22 08:19 Dose: 14 mg Olanzapine (Olanzapine 2.5 Mg Tab) 7.5 mg PO HS [facility] Stop: 09/01/22 20:59 Last Admin: 08/03/22 00:54 Dose: Not Given Pantoprazole Sodium (Pantoprazole 40 Mg Tab) 40 mg PO DAILY [facility] Stop: 09/02/22 08:59 Last Admin: 08/04/22 08:21 Dose: 40 mg Polyethylene Glycol (Polyethylene (Miralax) 17 Gm Pack) 17 gm PO DAILY PRN PRN Reason: Constipation Stop: 09/01/22 16:43 Topiramate (Topiramate 50 Mg Tab) 50 mg PO BID [facility] Stop: 09/01/22 20:59 Last Admin: 08/03/22 00:55 Dose: Not Given
[2022-08-05] MEDS: DOXYCYCLINE HYCLATE 100 MG in DEXTROSE 5% 100 ML IV SCH ×2 (07:52→20:46)
[2022-08-05] MEDS: ADVANCED PROBIOTIC 1250 MG CAPSULE PO SCH (08:22)
[2022-08-05] MEDS: ASPIRIN 81 MG ECTAB PO SCH (08:22)
[2022-08-05] MEDS: lisinopril 20 MG TAB PO SCH (08:22)
[2022-08-05] MEDS: PANTOprazole 40 MG TAB PO SCH (08:22)
[2022-08-05] MEDS: ATORVASTATIN 40 MG TAB PO SCH (08:23)
[2022-08-05] MEDS: GABAPENTIN 300 MG CAP PO SCH ×2 (08:24→20:51)
[2022-08-05] MEDS: CLOPIDOGREL BISULFATE 75 MG TAB PO SCH (08:24)
[2022-08-05] MEDS: LANTUS PER UNIT CHARGE SQ SCH (08:29)
[2022-08-05] MEDS: LIDOCAINE 5% 1 PATCH TD SCH (08:29)
[2022-08-05] MEDS: NICOTINE 14 MG/24 HR PATCH TD SCH (08:30)
[2022-08-05] MEDS: METOPROLOL SUCC 50MG EXT REL TAB PO SCH ×2 (08:31→20:51)
--- NOTE | 2022-08-05 12:22 | Pharmacy Report ---
Pharmacy Glycemic Short Note 2 - Date of Service August 05, 2022 - Glycemic Short BSG Results (Last 24 hours): 08/04/22 08/04/22 08/04/22 15:57 15:58 20:10 Glucose POC Glucose 69 L* 76 140 H 08/04/22 08/05/22 08/05/22 23:31 03:57 04:40 Glucose 142 H POC Glucose 134 H 154 H 08/05/22 08/05/22 07:06 10:59 Glucose POC Glucose 127 H 162 H OUTPATIENT ANTIDIABETIC REGIMEN: * Insulin glargine 35 units QAM * Insulin aspart sliding scale * A1c 11.2% 08/04/22 ASSESSMENT: 08/05/22 * Stresors stable * AM fasting BSG in goal range. Will limit Lantus to a max of 15 units/day for now (same dose as yesterday). Hold parameters if below goal. * Mild hypoglycemia of 69 mg/dL noted at dinner yesterday after CHO ratio was tightened at lunch. Will slightly loosen CHO ratio. 08/04/22 * Patient admitted with possible infection, currently on doxycycline/zosyn. * BSGs initially elevated and then trended downward with initiation of insulin. * Fasting this morning 121 mg/dL without basal given yesterday, received 15 units this morning per scale- continue to monitor * Lunch BSG elevated today, will tighten carb ratio * Add overnight checks PLAN FOR INPATIENT GLYCEMIC CONTROL: * Hold outpatient oral diabetes medications * Basal insulin * Lantus 15 units qAM. Hold for BSG < 110 mg/dL * Bolus insulin * NovoLog per scale ACHS or Q6hrs while NPO * Goal Range: Low 110 mg/dL - High 140 mg/dL * Correction Factor: 35 mg/dL/unit * Nutritional / Prandial insulin per carb ratio of 1 unit per 10 grams CHO consumed
[2022-08-05] MEDS: ALUMINUM/MAGNESIUM SUSP 30 ML UDC PO PRN (12:26)
--- NOTE | 2022-08-05 15:25 | Electrocardiogram Report ---
Test Reason : Blood Pressure : / mmHG Vent. Rate : 066 BPM Atrial Rate : 066 BPM P-R Int : 142 ms QRS Dur : 150 ms QT Int : 460 ms P-R-T Axes : 054 -36 122 degrees QTc Int : 482 ms Normal sinus rhythm Left axis deviation Left bundle branch block Abnormal ECG When compared with ECG of 03-AUG-2022 06:50, No significant change was found Confirmed by Macario Candelaria ([id number]) on 08/05/2022 3:25:24 PM Referred By: REFERRED SELF Confirmed By:Macario Candelaria
[2022-08-05 16:27] LABS: 18KDIGG Band NON-REACTIVE; 23KDIGG Band NON-REACTIVE; 23KDIGM Band REACTIVE; 28KDIGG Band NON-REACTIVE; 30KDIGG Band NON-REACTIVE; 39KDIGG Band NON-REACTIVE; 39KDIGM Band NON-REACTIVE; 41KDIGG Band NON-REACTIVE; 41KDIGM Band REACTIVE; 45KDIGG Band NON-REACTIVE; 58KDIGG Band NON-REACTIVE; 66KDIGG Band NON-REACTIVE; 93KDIGG Band NON-REACTIVE; Lyme Antibodies, WB IgG NEGATIVE (NEGATIVE); Lyme Antibodies, WB IgM POSITIVE (NEGATIVE)
[2022-08-05] MEDS: ENOXAPARIN INJ 40 MG/0.4 ML SYR SQ SCH (20:49)
[2022-08-05] MEDS: DONEPEZIL HCL 5 MG TAB PO SCH (20:50)
--- NOTE | 2022-08-05 22:23 | XRay Report ---
SINGLE VIEW CHEST CLINICAL HISTORY: Hypoxia. FINDINGS: An AP, portable, upright chest radiograph is compared to study dated 08/02/2022 and correlat ed with chest CT dated 08/23/2021. The patient is status post midline sternotomy. The heart is enlarge d noting atherosclerotic calcification of the thoracic aorta. There is evidence of congestive failure and pulmonary edema. There are layering pleural effusions with bibasilar consolidation. No pneumotho rax is seen. The skeletal structures are osteopenic. The bony thorax is grossly intact. IMPRESSION: 1. Cardiomegaly with evidence of congestive failure and pulmonary edema. 2. Layering pleural effusions with bibasilar consolidation.. ACT 112: Negative or not required by law. Electronically signed by: Geovani Dumont M.D. 08/05/2022 10:22 PM
[2022-08-06] MEDS ORDERED: LORATADINE 10 MG TAB PO ONE (01:07)
[2022-08-06] MEDS: MELATONIN 3 MG TAB PO PRN ×2 (01:54→20:38)
[2022-08-06 06:31] LABS: Hematocrit (blood only) 29.4 % (37.0-47.0); Hemoglobin 9.5 g/dl (12.0-16.0); Mean Corpuscular Hemoglobin 30.8 pg (25.0-34.0); Mean Corpuscular Hgb Conc 32.3 g/dL (32.0-36.0); Mean Corpuscular Volume 95.5 fL (80.0-100.0); Mean Platelet Volume 11.2 fL (9.4-12.4); Platelet Count 158 K/uL (130-400); RDW Coefficient of Variation 13.8 % (11.5-14.5); RDW Standard Deviation 47.8 fL (36.4-46.3); Red Blood Count 3.08 M/uL (4.20-5.40); White Blood Count 12.28 K/ul (4.8-10.8)
[2022-08-06 06:42] LABS: BUN Creatinine Ratio 10.3 (10-20); Calcium 8.8 mg/dl (8.6-10.3); Creatinine Clr Calc Pharmacy 63.2 ml/min; Est GFR (African American) 81.6 ml/min; Est GFR (Non-African American) 70.4 ml/min; Magnesium 1.6 mg/dl (1.7-2.4); Phosphorus 4.1 mg/dl (2.5-4.9); Potassium 3.5 mmol/L (3.5-5.1)
[2022-08-06] MEDS ORDERED: FUROSEMIDE 40 MG/4 ML VIAL IV STA (07:05)
[2022-08-06] MEDS ORDERED: POTASSIUM CHLORIDE CRTAB 20 MEQ TABCR PO STA (07:06)
--- NOTE | 2022-08-06 07:12 | Hospitalist Progress Note ---
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 Sepsis Possible Sources: Lyme disease, proctocolitis, ? UTI Acute metabolic encephalopathy secondary to above H/O MRSA bacteremia --CXR:Cardiomegaly with no active disease in the chest. --ABD CT:No definite acute findings within the abdomen or pelvis. Apparent wall thickening of portions of the colon and rectum. This is likely due to underdistention however a mild nonspecific proctocolitis could appear similar. No bowel obstruction. Extensive aortoiliac atherosclerotic plaque. Suspected severe stenosis of the proximal right common iliac artery. --Head CT:Motion degraded exam. No acute intracranial abnormality or calvarial fracture. --Blood Cx: No growth to date --Urine Cx: Probable skin win -- Lyme serology positive for IgM antibody and she has clinically improved on doxycycline. -- Anaplasma smear showed no intracytoplasmic neutrophilic inclusions Lactic acidosis resolved with IV fluids-she has been resuscitated. Given negative Ucx and blood culture, antibiotics aside from doxycycline were stopped on 08/05 Mental status back to baseline Appetite is improved. Hypoxia-worsened post sepsis resuscitation efforts. Still requiring 4 LPM oxygen supplementation. CXR reveals new bilateral pleural effusions and pulmonary edema, likely related to recent sepsis resuscitation efforts. She is typically on Lasix 60 mg daily to treat chronic HF which was appropriately held on admission in setting of sepsis. I/O trend show she is net 7L positive in fluid balance during this admission Started Lasix 40 mg p.o. twice daily with strict ins and outs. Cont to wean patient as appropriate based on oxygen saturations Hypertensive urgency Blood pressure is at goal with increased lisinopril to 20 mg daily and Increase metoprolol succinate to 100 mg twice daily Adjust antihypertensives as needed Elevated troponin--likely demand ischemia -- Patient denies any chest pain ECHO: Unchanged posterior wall hypokinesis and degree of mitral regurgitation when compared to 05/15/2021 Right common iliac artery stenosis --Discuss[facility] with vascular surgery [facility] per previous hospitalist, Reported similar finding on CT scan last year, no acute intervention needed Continue aspirin, statin, Plavix Needs follow-up with vascular surgery as outpatient for monitoring. 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 Continue nicotine patch Prolonged QTc, resolved Avoid QTc prolonging meds as able and cont current Cymbalta and olanzapine for now. Recheck EKG tomorrow Anxiety/Paranoia on Cymbalta, donepezil and Seroquel Appreciate psychiatry input Resume Cymbalta at 60mg PO daily. Home dose is 90mg daily, will likely cont at current dose and ask psych to adjust outpatient. DVT Px:SQ Lovenox FULL CODE Dispo-to home Marci Kiser DO [facility] Hospitalist Admission and Anticipated Discharge Date Admission Date: August 02, 2022 Subjective 62 yo F admitted with UTI and Lyme disease today she reports feeling SOB She has requested to RN to increase the supplemental oxygen and is at 4LPM to stay comfortable at rest. She reports slight productive cough No fevers Feels improved since admission Tolerating a diet. Review of Systems Review of Systems: All systems were reviewed and negative except as indicated on subjective above. Physical Exam Physical Exam: CONSTITUTIONAL: WNWD, vitals as above, generally well-appearing, NAD EYES: normal conjunctivae, no scleral icterus ENT: external ear and nose normal, MMM NECK: trachea midline RESPIRATORY: rhonchi at right base, otherwise CTA bilaterally without rales or wheezes, normal respiratory effort CARDIOVASCULAR: regular rate and rhythm, S1 and 2 heard without murmurs, ansari ps or rubs, no JVD, no peripheral edema CHEST: inspection of chest was normal GASTROINTESTINAL: soft, nontender, ND, no guarding MUSCULOSKELETAL: strength 5/5 throughout, head is normocephalic and atraumatic, left lower residual limb SKIN: warm and dry NEUROLOGIC: CN 2-12 grossly intact, no sensory deficit, normal cognition, normal speech, no tremor PSYCHIATRIC: alert cooperative and oriented to person, place and time. Euthymic mood, makes good eye contact, language grossly intact, recent and remote memory grossly intact. Results & Data Results & Data Vital Signs (Past 12 Hours) Vital Signs Temp Pulse Pulse Resp BP Pulse Ox O2 Del Method 08/06/22 05:05 37.0 C 81 20 140/64 95 Nasal Cannula 08/05/22 23:43 37.8 C H 81 18 159/86 H 98 Oxymask 08/05/22 23:00 79 08/05/22 20:00 Nasal Cannula 08/05/22 19:30 37.0 C 77 18 160/79 H 97 Nasal Cannula O2 Flow Rate 08/06/22 05:05 4 08/05/22 23:43 4 08/05/22 23:00 08/05/22 20:00 4 08/05/22 19:30 4 Laboratory Results Short CBC 08/06/22 Range/Units 05:38 WBC 12.28 H (4.8-10.8) K/ul Hgb 9.5 L (12.0-16.0) g/dl Hct 29.4 L (37.0-47.0) % Plt Count 158 (130-400) K/uL BMP 08/06/22 05:38 Sodium 139 Potassium 3.5 Chloride 110 H Carbon Dioxide 23 BUN 9 Creatinine 0.87 Glucose 194 H Calcium 8.8 Diagnostic Findings Chest X-Ray 08/05/22 17:50 SINGLE VIEW CHEST CLINICAL HISTORY: Hypoxia. FINDINGS: An AP, portable, upright chest radiograph is compared to study dated 08/02/2022 and correlated with chest CT dated 08/23/2021. The patient is status post midline sternotomy. The heart is enlarged noting atherosclerotic calcification of the thoracic aorta. There is evidence of congestive failure and pulmonary edema. There are layering pleural effusions with bibasilar consolidation. No pneumothorax is seen. The skeletal structures are osteopenic. The bony thorax is grossly intact. IMPRESSION: 1. Cardiomegaly with evidence of congestive failure and pulmonary edema. 2. Layering pleural effusions with bibasilar consolidation.. ACT 112: Negative or not required by law. Electronically signed by: Geovani Dumont M.D. 08/05/2022 10:22 PM Medications Administered Current Inpatient Medications Acetaminophen (Acetaminophen 325 Mg Tab) 650 mg PO Q4H PRN PRN Reason: Pain or Fever Stop: 09/01/22 16:43 Last Admin: 08/03/22 11:58 Dose: 650 mg Al Hydrox/Mg Hydrox/Simethicone (Aluminum/Magnesium Susp 30 Ml Udc) 15 ml PO Q4H PRN PRN Reason: Dyspepsia Stop: 09/01/22 16:43 Last Admin: 08/05/22 12:26 Dose: 15 ml Aspirin (Aspirin 81 Mg Ectab) 81 mg PO DAILY SAMANTHA Stop: 09/02/22 08:59 Last Admin: 08/05/22 08:22 Dose: 81 mg Atorvastatin Calcium (Atorvastatin 40 Mg Tab) 80 mg PO QAM SAMANTHA Stop: 09/04/22 08:59 Last Admin: 08/05/22 08:23 Dose: 80 mg Clopidogrel Bisulfate (Clopidogrel Bisulfate 75 Mg Tab) 75 mg PO DAILY SAMANTHA Stop: 09/02/22 08:59 Last Admin: 08/05/22 08:24 Dose: 75 mg Dextrose (Dextrose 50% 50 Ml Syringe) 25 - 50 ml IV UD PRN; Protocol PRN Reason: Hypoglycemia Protocol Stop: 09/01/22 16:43 Donepezil HCl (Donepezil Hcl 5 Mg Tab) 5 mg PO HS SAMANTHA Stop: 09/01/22 20:59 Last Admin: 08/05/22 20:50 Dose: 5 mg Duloxetine HCl (Duloxetine Hcl 60 Mg Cap) 60 mg PO QAM SAMANTHA Stop: 09/02/22 08:59 Duloxetine HCl (Duloxetine Hcl 60 Mg Cap) 60 mg PO QAM SAMANTHA Stop: 09/05/22 08:59 Enoxaparin Sodium (Enoxaparin Inj 40 Mg/0.4 Ml Syr) 40 mg SQ HS SAMANTHA Stop: 09/01/22 20:59 Last Admin: 08/05/22 20:49 Dose: 40 mg Furosemide (Furosemide 40 Mg/4 Ml Vial) 40 mg IV BID17 SAMANTHA Stop: 09/05/22 16:59 Gabapentin (Gabapentin 600 Mg Tab) 600 mg PO HS SAMANTHA Stop: 09/01/22 20:59 Last Admin: 08/03/22 00:54 Dose: Not Given Gabapentin (Gabapentin 300 Mg Cap) 300 mg PO BID SAMANTHA Stop: 09/03/22 20:59 Last Admin: 08/05/22 20:51 Dose: 300 mg Glucagon (Glucagon For Inj 1 Mg Vial) 1 mg SQ UD PRN; Protocol PRN Reason: Hypoglycemia Protocol Stop: 09/01/22 16:43 Glucose (Glucose 10 Tab/Tube) 4 - 8 tab PO UD PRN; Protocol PRN Reason: Hypoglycemia Treatment Stop: 09/01/22 16:43 Glucose (Glucose 40% Gel 15 Gm Tube) 15 - 30 gm PO UD PRN; Protocol PRN Reason: Hypoglycemia Protocol Stop: 09/01/22 16:43 Promethazine HCl 12.5 mg/ (Sodium Chloride) 50.5 mls @ 202 mls/hr IV Q6H PRN PRN Reason: Nausea And Vomiting Stop: 09/01/22 22:10 Last Infusion: 08/04/22 05:26 Dose: Infused Doxycycline Hyclate 100 mg/ (Dextrose) 110 mls @ 50 mls/hr IV Q12H [facility] Stop: 08/13/22 08:29 Last Infusion: 08/05/22 23:07 Dose: Infused Acetaminophen (Ofirmev) 1,000 mg in 100 mls @ 400 mls/hr IV Q8H PRN PRN Reason: Pain or Fever Stop: 08/06/22 16:11 Last Infusion: 08/04/22 20:32 Dose: Infused Magnesium Sulfate/Dextrose (Magnesium Sulfate / D5w) 1 gm in 100 mls @ 50 mls/hr IV Q2H [facility] Stop: 08/06/22 11:14 Insulin Aspart (Insulin Aspart Per Unit Charge) 0 units SC ACHS [facility] Stop: 09/01/22 16:43 Last Admin: 08/05/22 20:52 Dose: Not Given Insulin Glargine (Lantus Per Unit Charge) 0 - 30 units SQ DAILY [facility]; Protocol Stop: 09/02/22 08:59 Last Admin: 08/05/22 08:29 Dose: 15 units Labetalol HCl (Labetalol Hcl Iv 5 Mg/Ml 20ml) 10 mg IV Q6H PRN PRN Reason: SBP>180 or DBP>100 Stop: 09/02/22 16:11 Last Admin: 08/03/22 16:30 Dose: 10 mg Lactobacillus Acidophilus (Advanced Probiotic 1250 Mg Capsule) 2 cap PO DAILY [facility] Stop: 09/03/22 12:59 Last Admin: 08/05/22 08:22 Dose: 2 cap Lidocaine (Lidocaine 5% 1 Patch) 1 patch TD QAM [facility] Stop: 09/02/22 15:44 Last Admin: 08/05/22 08:29 Dose: 1 patch Lisinopril (Lisinopril 20 Mg Tab) 20 mg PO DAILY [facility] Stop: 09/04/22 08:59 Last Admin: 08/05/22 08:22 Dose: 20 mg Magnesium Hydroxide (Magnesium Hydroxide Susp 30 Ml Udc) 30 ml PO Q12H PRN PRN Reason: Constipation Stop: 09/01/22 16:43 Melatonin (Melatonin 3 Mg Tab) 6 mg PO HS PRN PRN Reason: insomnia Stop: 09/01/22 20:59 Last Admin: 08/06/22 01:54 Dose: 6 mg Metoprolol Succinate (Metoprolol Succ 50mg Ext Rel Tab) 100 mg PO DAILY [facility] Stop: 09/02/22 08:59 Last Admin: 08/05/22 08:31 Dose: 100 mg Metoprolol Succinate (Metoprolol Succ 50mg Ext Rel Tab) 100 mg PO HS [facility] Stop: 09/03/22 20:59 Last Admin: 08/05/22 20:51 Dose: 100 mg Metoprolol Tartrate (Metoprolol Tartrate 1 Mg/Ml Vial) 2.5 mg IV Q4H PRN PRN Reason: Tachycardia> 100 Stop: 09/02/22 06:21 Last Admin: 08/03/22 23:03 Dose: 2.5 mg Miscellaneous (Carbohydrates For Hypoglycemia ) 15 - 30 gm PO UD PRN PRN Reason: Hypoglycemia Protocol Stop: 09/01/22 16:43 Miscellaneous (Remove Nicoderm Patch) 1 each N/A DAILY@0859 [facility] Stop: 09/02/22 08:58 Last Admin: 08/05/22 08:23 Dose: 1 each Miscellaneous (Remove Lidoderm Patch) 1 each N/A DAILY@2100 [facility] Stop: 09/02/22 22:59 Last Admin: 08/05/22 20:53 Dose: 1 each Miscellaneous Information (Pharmacy Glycemic Mgmt Consult) 1 each N/A UD PRN; Protocol PRN Reason: Consult Stop: 09/03/22 07:51 Nicotine (Nicotine 14 Mg/24 Hr Patch) 14 mg TD QAM SAMANTHA Stop: 09/01/22 16:43 Last Admin: 08/05/22 08:30 Dose: 14 mg Olanzapine (Olanzapine 2.5 Mg Tab) 7.5 mg PO HS SAMANTHA Stop: 09/01/22 20:59 Last Admin: 08/03/22 00:54 Dose: Not Given Pantoprazole Sodium (Pantoprazole 40 Mg Tab) 40 mg PO DAILY SAMANTHA Stop: 09/02/22 08:59 Last Admin: 08/05/22 08:22 Dose: 40 mg Polyethylene Glycol (Polyethylene (Miralax) 17 Gm Pack) 17 gm PO DAILY PRN PRN Reason: Constipation Stop: 09/01/22 16:43 Potassium Chloride (Potassium Chloride Crtab 20 Meq Tabcr) 40 meq PO NOW STA Stop: 08/06/22 07:07 Topiramate (Topiramate 50 Mg Tab) 50 mg PO BID SAMANTHA Stop: 09/01/22 20:59 Last Admin: 08/03/22 00:55 Dose: Not Given
[2022-08-06] MEDS: ASPIRIN 81 MG ECTAB PO SCH (08:38)
[2022-08-06] MEDS: METOPROLOL SUCC 50MG EXT REL TAB PO SCH ×2 (08:38→20:36)
[2022-08-06] MEDS: lisinopril 20 MG TAB PO SCH (08:38)
[2022-08-06] MEDS: CLOPIDOGREL BISULFATE 75 MG TAB PO SCH (08:39)
[2022-08-06] MEDS: GABAPENTIN 300 MG CAP PO SCH ×2 (08:39→20:37)
[2022-08-06] MEDS: ADVANCED PROBIOTIC 1250 MG CAPSULE PO SCH (08:39)
[2022-08-06] MEDS: PANTOprazole 40 MG TAB PO SCH (08:39)
[2022-08-06] MEDS: ATORVASTATIN 40 MG TAB PO SCH (08:39)
[2022-08-06] MEDS: NICOTINE 14 MG/24 HR PATCH TD SCH (08:40)
[2022-08-06] MEDS: DULoxetine HCL 60 MG CAP PO SCH (08:40)
[2022-08-06] MEDS: LANTUS PER UNIT CHARGE SQ SCH (08:42)
[2022-08-06] MEDS: INSULIN ASPART PER UNIT CHARGE SC SCH ×4 (08:43→20:38)
[2022-08-06] MEDS: MAGNESIUM SULFATE / D5W 1 GM/100 ML BAG IV SCH ×2 (08:51→10:49)
[2022-08-06] MEDS: DOXYCYCLINE HYCLATE 100 MG in DEXTROSE 5% 100 ML IV SCH ×2 (08:51→20:38)
[2022-08-06] MEDS ORDERED: FUROSEMIDE 20 MG TAB PO SCH (09:00)
[2022-08-06] MEDS: LIDOCAINE 5% 1 PATCH TD SCH (09:40)
[2022-08-06] MEDS ORDERED: traMADol HCL 50 MG TABLET PO PRN (09:55)
--- NOTE | 2022-08-06 14:55 | Pharmacy Report ---
Pharmacy Glycemic Short Note 2 - Date of Service August 06, 2022 - Glycemic Short BSG Results (Last 24 hours): 08/05/22 08/05/22 08/06/22 16:39 20:19 05:38 Glucose 194 H POC Glucose 90 136 H 08/06/22 08/06/22 08/06/22 07:36 11:38 11:43 Glucose POC Glucose 242 H 340 H* 309 H* OUTPATIENT ANTIDIABETIC REGIMEN: * Insulin glargine 35 units QAM * Insulin aspart sliding scale * A1c 11.2% 08/04/22 ASSESSMENT: 08/06/22 * Patient received total of 36 units of insulin yesterday, of which 15 units were basal insulin * Fasting BSG elevated this morning and continues to trend upward therefore inc reased to 20 units of basal insulin * Lunch BSG elevated - contacted RN and reports patient consuming sugary drinks/tea / no change to CF/CR as I don't want to overcorrect. Dinner BSGs tend to drop 08/05/22 * Stresors stable * AM fasting BSG in goal range. Will limit Lantus to a max of 15 units/day for now (same dose as yesterday). Hold parameters if below goal. * Mild hypoglycemia of 69 mg/dL noted at dinner yesterday after CHO ratio was tightened at lunch. Will slightly loosen CHO ratio. 08/04/22 * Patient admitted with possible infection, currently on doxycycline/zosyn. * BSGs initially elevated and then trended downward with initiation of insulin. * Fasting this morning 121 mg/dL without basal given yesterday, received 15 units this morning per scale- continue to monitor * Lunch BSG elevated today, will tighten carb ratio * Add overnight checks PLAN FOR INPATIENT GLYCEMIC CONTROL: * Hold outpatient oral diabetes medications * Basal insulin * Lantus 20 units daily * Bolus insulin * NovoLog per scale ACHS or Q6hrs while NPO * Goal Range: Low 110 mg/dL - High 140 mg/dL * Correction Factor: 35 mg/dL/unit * Nutritional / Prandial insulin per carb ratio of 1 unit per 10 grams CHO consumed
[2022-08-06] MEDS: FUROSEMIDE 40 MG/4 ML VIAL IV SCH (17:44)
[2022-08-06] MEDS: DONEPEZIL HCL 5 MG TAB PO SCH (20:39)
[2022-08-06] MEDS: ENOXAPARIN INJ 40 MG/0.4 ML SYR SQ SCH (20:39)
[2022-08-07] MEDS: traMADol HCL 50 MG TABLET PO PRN ×2 (04:47→17:10)
[2022-08-07 05:53] LABS: Hematocrit (blood only) 30.1 % (37.0-47.0); Hemoglobin 9.8 g/dl (12.0-16.0); Mean Corpuscular Hemoglobin 30.8 pg (25.0-34.0); Mean Corpuscular Hgb Conc 32.6 g/dL (32.0-36.0); Mean Corpuscular Volume 94.7 fL (80.0-100.0); Mean Platelet Volume 11.4 fL (9.4-12.4); Platelet Count 148 K/uL (130-400); RDW Coefficient of Variation 13.7 % (11.5-14.5); RDW Standard Deviation 47.3 fL (36.4-46.3); Red Blood Count 3.18 M/uL (4.20-5.40); White Blood Count 11.52 K/ul (4.8-10.8)
[2022-08-07 06:12] LABS: BUN Creatinine Ratio 17.2 (10-20); Calcium 8.8 mg/dl (8.6-10.3); Est GFR (African American) 81.6 ml/min; Est GFR (Non-African American) 70.4 ml/min
[2022-08-07] MEDS: NICOTINE 14 MG/24 HR PATCH TD SCH (08:48)
[2022-08-07] MEDS: LIDOCAINE 5% 1 PATCH TD SCH (08:48)
[2022-08-07] MEDS: GABAPENTIN 300 MG CAP PO SCH ×2 (08:49→21:10)
[2022-08-07] MEDS: PANTOprazole 40 MG TAB PO SCH (08:49)
[2022-08-07] MEDS: METOPROLOL SUCC 50MG EXT REL TAB PO SCH ×2 (08:50→21:14)
[2022-08-07] MEDS: DULoxetine HCL 60 MG CAP PO SCH (08:50)
[2022-08-07] MEDS: CLOPIDOGREL BISULFATE 75 MG TAB PO SCH (08:51)
[2022-08-07] MEDS: ASPIRIN 81 MG ECTAB PO SCH (08:51)
[2022-08-07] MEDS: ATORVASTATIN 40 MG TAB PO SCH (08:51)
[2022-08-07] MEDS: ADVANCED PROBIOTIC 1250 MG CAPSULE PO SCH (08:51)
[2022-08-07] MEDS: FUROSEMIDE 40 MG/4 ML VIAL IV SCH (08:52)
[2022-08-07] MEDS: lisinopril 20 MG TAB PO SCH (08:52)
[2022-08-07] MEDS: LANTUS PER UNIT CHARGE SQ SCH (08:53)
[2022-08-07] MEDS: INSULIN ASPART PER UNIT CHARGE SC SCH ×4 (08:54→21:10)
[2022-08-07] MEDS: DOXYCYCLINE HYCLATE 100 MG in DEXTROSE 5% 100 ML IV SCH ×2 (09:02→21:09)
--- NOTE | 2022-08-07 14:41 | Hospitalist Progress Note ---
Date of Service August 07, 2022 Assessment & Plan (1) Sepsis: (2) Hypertensive urgency: (3) Lyme disease: (4) Hypoxia: (5) Hypokalemia: (6) Delusional disorder: (7) Elevated troponin: (8) Tobacco use disorder: Plan Patient is a 62 yr old female who has a significant past medical history of CAD status post CABG x4 with history of ischemic cardiomyopathy, moderate to severe MR, HTN, chronic HFpEF, intermittent LBBB, HTN, HLD, insulin-dependent T2DM, chronic tobacco abuse, left lower extremity BKA due to osteomyelitis reportedly in 2021, history of mitral valve endocarditis and periaortic abscess, chronic normocytic anemia who presents to ED secondary to ill feeling x 3-4 days. Sepsis- resolved. Lyme positive. Blood culture, urine cultures negative. Head CT, abdominal CT negative for acute disease Acute metabolic encephalopathy secondary to above-resolved. Currently at baseline Lyme disease-confirmed with Western blot test. Continue doxycycline D5/10. Empiric Zosyn started on admission was discontinued on 08/05 Hypoxia-worsened post sepsis resuscitation efforts. Chest x-ray shows pulmonary edema, currently requiring supplemental oxygen 4->3L. Weight up by around 7 kg. Will increase dose of IV Lasix as not having adequate diuresis (home dose is 60 mg daily). Recheck x-ray in a.m. continue daily weight, strict intake output and continue to wean off oxygen as tolerated Hypertensive urgency-resolved. Blood pressure at goal with increased lisinopril to 20 mg daily and metoprolol succinate to 100 mg twice daily Elevated troponin--likely demand ischemia. Patient denies any chest pain. ECHO: Unchanged posterior wall hypokinesis and degree of mitral regurgitation when compared to 05/15/2021 Right common iliac artery stenosis--Discussed with vascular surgery Dr.James Ángel Guerrier per previous hospitalist, Reported similar finding on CT scan last year, no acute intervention needed; Continue aspirin, statin, Plavix Needs follow-up with vascular surgery as outpatient for monitoring. H/O CAD, S/P CABG x 4- H/O MV endocarditis/periaortic abscess; Severe MR- Continue aspirin, Plavix, lisinopril, metoprolol Chronic HFpEf-IV Lasix started due to pulm edema and hypoxia. DM II-uncontrolled- continue Insulin per protocol ; HbA1c:11.2 Chronic Tobacco abuse- Encourage cessation., however, patient is not interested in quitting at this time; Continue nicotine patch Anxiety/Paranoia- on Cymbalta, donepezil and Seroquel. Seen by psychiatry for medication adjustment-recommendations noted. DVT Px:SQ Lovenox Dispo-to home with medical stable. On IV Lasix for volume optimization Admission and Anticipated Discharge Date Admission Date: August 02, 2022 Subjective Patient was seen and examined at bedside. She is feeling better. Her shortness of breath is improving. No more diarrhea. Normal appetite. She is hoping to go home tomorrow. No fever, chills, chest pain or nausea or vomiting Review of Systems Review of Systems: All systems reviewed & are unremarkable except as noted in Subjective Physical Exam Physical Exam: General: Sitting comfortably at bedside, not in distress, on nasal cannula HEENT: EOMI, FREEMAN, MMM Chest: Clear breath sounds bilaterally with crackles CVS: Regular rate and rhythm, normal heart sounds, no murmur Abdomen: Soft, non tender, not distended, normal bowel sounds Neuro: Awake, alert, oriented, conversing well, non focal Extremities: Left BKA Results & Data Results & Data Vital Signs (Past 12 Hours) Vital Signs Temp Pulse Pulse Resp BP Pulse Ox O2 Del Method 08/07/22 12:23 36.8 C 67 18 122/72 91 Nasal Cannula 08/07/22 10:00 Nasal Cannula 08/07/22 08:14 36.7 C 66 18 114/71 95 Room Air 08/07/22 08:08 65 08/07/22 03:00 36.7 C 70 21 131/77 97 Nasal Cannula O2 Flow Rate 08/07/22 12:23 3 08/07/22 10:00 3 08/07/22 08:14 08/07/22 08:08 08/07/22 03:00 Laboratory Results Short CBC 08/07/22 Range/Units 05:30 WBC 11.52 H (4.8-10.8) K/ul Hgb 9.8 L (12.0-16.0) g/dl Hct 30.1 L (37.0-47.0) % Plt Count 148 (130-400) K/uL BMP 08/07/22 05:30 Sodium 136 Potassium 4.0 Chloride 103 Carbon Dioxide 28 BUN 15 Creatinine 0.87 Glucose 182 H Calcium 8.8 Medications Administered Current Inpatient Medications Acetaminophen (Acetaminophen 325 Mg Tab) 650 mg PO Q4H PRN PRN Reason: Pain or Fever Stop: 09/01/22 16:43 Last Admin: 08/03/22 11:58 Dose: 650 mg Al Hydrox/Mg Hydrox/Simethicone (Aluminum/Magnesium Susp 30 Ml Udc) 15 ml PO Q4H PRN PRN Reason: Dyspepsia Stop: 09/01/22 16:43 Last Admin: 08/05/22 12:26 Dose: 15 ml Aspirin (Aspirin 81 Mg Ectab) 81 mg PO DAILY [facility] Stop: 09/02/22 08:59 Last Admin: 08/07/22 08:51 Dose: 81 mg Atorvastatin Calcium (Atorvastatin 40 Mg Tab) 80 mg PO QAM [facility] Stop: 09/04/22 08:59 Last Admin: 08/07/22 08:51 Dose: 80 mg Clopidogrel Bisulfate (Clopidogrel Bisulfate 75 Mg Tab) 75 mg PO DAILY [facility] Stop: 09/02/22 08:59 Last Admin: 08/07/22 08:51 Dose: 75 mg Dextrose (Dextrose 50% 50 Ml Syringe) 25 - 50 ml IV UD PRN; Protocol PRN Reason: Hypoglycemia Protocol Stop: 09/01/22 16:43 Donepezil HCl (Donepezil Hcl 5 Mg Tab) 5 mg PO HS [facility] Stop: 09/01/22 20:59 Last Admin: 08/06/22 20:39 Dose: 5 mg Duloxetine HCl (Duloxetine Hcl 60 Mg Cap) 60 mg PO QAM [facility] Stop: 09/02/22 08:59 Duloxetine HCl (Duloxetine Hcl 60 Mg Cap) 60 mg PO QAM [facility] Stop: 09/05/22 08:59 Last Admin: 08/07/22 08:50 Dose: 60 mg Enoxaparin Sodium (Enoxaparin Inj 40 Mg/0.4 Ml Syr) 40 mg SQ HS [facility] Stop: 09/01/22 20:59 Last Admin: 08/06/22 20:39 Dose: 40 mg Furosemide (Furosemide 40 Mg/4 Ml Vial) 40 mg IV BID17 [facility] Stop: 09/05/22 16:59 Last Admin: 08/07/22 08:52 Dose: 40 mg Gabapentin (Gabapentin 600 Mg Tab) 600 mg PO HS [facility] Stop: 09/01/22 20:59 Last Admin: 08/03/22 00:54 Dose: Not Given Gabapentin (Gabapentin 300 Mg Cap) 300 mg PO BID [facility] Stop: 09/03/22 20:59 Last Admin: 08/07/22 08:49 Dose: 300 mg Glucagon (Glucagon For Inj 1 Mg Vial) 1 mg SQ UD PRN; Protocol PRN Reason: Hypoglycemia Protocol Stop: 09/01/22 16:43 Glucose (Glucose 10 Tab/Tube) 4 - 8 tab PO UD PRN; Protocol PRN Reason: Hypoglycemia Treatment Stop: 09/01/22 16:43 Glucose (Glucose 40% Gel 15 Gm Tube) 15 - 30 gm PO UD PRN; Protocol PRN Reason: Hypoglycemia Protocol Stop: 09/01/22 16:43 Promethazine HCl 12.5 mg/ (Sodium Chloride) 50.5 mls @ 202 mls/hr IV Q6H PRN PRN Reason: Nausea And Vomiting Stop: 09/01/22 22:10 Last Infusion: 08/04/22 05:26 Dose: Infused Doxycycline Hyclate 100 mg/ (Dextrose) 110 mls @ 50 mls/hr IV Q12H [facility] Stop: 08/13/22 08:29 Last Infusion: 08/07/22 11:18 Dose: Infused Insulin Aspart (Insulin Aspart Per Unit Charge) 0 units SC ACHS [facility] Stop: 09/01/22 16:43 Last Admin: 08/07/22 12:54 Dose: 8 units Insulin Glargine (Lantus Per Unit Charge) 0 units SQ DAILY [facility]; Protocol Stop: 09/02/22 08:59 Last Admin: 08/07/22 08:53 Dose: 20 units Labetalol HCl (Labetalol Hcl Iv 5 Mg/Ml 20ml) 10 mg IV Q6H PRN PRN Reason: SBP>180 or DBP>100 Stop: 09/02/22 16:11 Last Admin: 08/03/22 16:30 Dose: 10 mg Lactobacillus Acidophilus (Advanced Probiotic 1250 Mg Capsule) 2 cap PO DAILY [facility] Stop: 09/03/22 12:59 Last Admin: 08/07/22 08:51 Dose: 2 cap Lidocaine (Lidocaine 5% 1 Patch) 1 patch TD QAM [facility] Stop: 09/02/22 15:44 Last Admin: 08/07/22 08:48 Dose: 1 patch Lisinopril (Lisinopril 20 Mg Tab) 20 mg PO DAILY [facility] Stop: 09/04/22 08:59 Last Admin: 08/07/22 08:52 Dose: 20 mg Magnesium Hydroxide (Magnesium Hydroxide Susp 30 Ml Udc) 30 ml PO Q12H PRN PRN Reason: Constipation Stop: 09/01/22 16:43 Melatonin (Melatonin 3 Mg Tab) 6 mg PO HS PRN PRN Reason: insomnia Stop: 09/01/22 20:59 Last Admin: 08/06/22 20:38 Dose: 6 mg Metoprolol Succinate (Metoprolol Succ 50mg Ext Rel Tab) 100 mg PO DAILY [facility] Stop: 09/02/22 08:59 Last Admin: 08/07/22 08:50 Dose: 100 mg Metoprolol Succinate (Metoprolol Succ 50mg Ext Rel Tab) 100 mg PO HS [facility] Stop: 09/03/22 20:59 Last Admin: 08/06/22 20:36 Dose: 100 mg Metoprolol Tartrate (Metoprolol Tartrate 1 Mg/Ml Vial) 2.5 mg IV Q4H PRN PRN Reason: Tachycardia> 100 Stop: 09/02/22 06:21 Last Admin: 08/03/22 23:03 Dose: 2.5 mg Miscellaneous (Carbohydrates For Hypoglycemia ) 15 - 30 gm PO UD PRN PRN Reason: Hypoglycemia Protocol Stop: 09/01/22 16:43 Miscellaneous (Remove Nicoderm Patch) 1 each N/A DAILY@0859 [facility] Stop: 09/02/22 08:58 Last Admin: 08/07/22 08:53 Dose: 1 each Miscellaneous (Remove Lidoderm Patch) 1 each N/A DAILY@2100 [facility] Stop: 09/02/22 22:59 Last Admin: 08/06/22 20:51 Dose: 1 each Miscellaneous Information (Pharmacy Glycemic Mgmt Consult) 1 each N/A UD PRN; Protocol PRN Reason: Consult Stop: 09/03/22 07:51 Nicotine (Nicotine 14 Mg/24 Hr Patch) 14 mg TD QAM [facility] Stop: 09/01/22 16:43 Last Admin: 08/07/22 08:48 Dose: 14 mg Olanzapine (Olanzapine 2.5 Mg Tab) 7.5 mg PO HS [facility] Stop: 09/01/22 20:59 Last Admin: 08/03/22 00:54 Dose: Not Given Pantoprazole Sodium (Pantoprazole 40 Mg Tab) 40 mg PO DAILY [facility] Stop: 09/02/22 08:59 Last Admin: 08/07/22 08:49 Dose: 40 mg Polyethylene Glycol (Polyethylene (Miralax) 17 Gm Pack) 17 gm PO DAILY PRN PRN Reason: Constipation Stop: 09/01/22 16:43 Topiramate (Topiramate 50 Mg Tab) 50 mg PO BID [facility] Stop: 09/01/22 20:59 Last Admin: 08/03/22 00:55 Dose: Not Given Tramadol HCl (Tramadol Hcl 50 Mg Tablet) 25 mg PO Q8H PRN PRN Reason: Severe Pain (Scale 7, 8, 9,10) Stop: 09/05/22 09:54 Last Admin: 08/07/22 04:47 Dose: 25 mg
[2022-08-07] MEDS ORDERED: FUROSEMIDE 40 MG/4 ML VIAL IV SCH (17:00)
[2022-08-07] MEDS: MELATONIN 3 MG TAB PO PRN (21:09)
[2022-08-07] MEDS: ENOXAPARIN INJ 40 MG/0.4 ML SYR SQ SCH (21:13)
[2022-08-07] MEDS: DONEPEZIL HCL 5 MG TAB PO SCH (21:13)
[2022-08-07] MEDS ORDERED: traMADol HCL 50 MG TABLET PO STA (23:58)
[2022-08-08] MEDS: traMADol HCL 50 MG TABLET PO PRN ×2 (05:28→10:12)
[2022-08-08 06:14] LABS: Hematocrit (blood only) 33.8 % (37.0-47.0); Hemoglobin 11.1 g/dl (12.0-16.0); Mean Corpuscular Hgb Conc 32.8 g/dL (32.0-36.0); Mean Corpuscular Volume 94.4 fL (80.0-100.0); Mean Platelet Volume 11.8 fL (9.4-12.4); Platelet Count 173 K/uL (130-400); RDW Coefficient of Variation 13.5 % (11.5-14.5); RDW Standard Deviation 46.7 fL (36.4-46.3); Red Blood Count 3.58 M/uL (4.20-5.40); White Blood Count 13.32 K/ul (4.8-10.8)
[2022-08-08 06:37] LABS: BUN Creatinine Ratio 16.8 (10-20); Calcium 8.7 mg/dl (8.6-10.3); Creatinine Clr Calc Pharmacy 43.4 ml/min; Est GFR (African American) 52.6 ml/min; Est GFR (Non-African American) 45.4 ml/min; Magnesium 1.3 mg/dl (1.7-2.4); Potassium 3.8 mmol/L (3.5-5.1)
--- NOTE | 2022-08-08 07:24 | XRay Report ---
SINGLE VIEW CHEST CLINICAL HISTORY: Follow-up congestive failure. FINDINGS: An AP, portable, upright chest radiograph is compared to study dated 08/05/2022 and correlat ed with chest CT dated 08/23/2021. The patient is status post midline sternotomy. The the heart is enl arged and noting atherosclerotic calcification of the thoracic aorta. There is pulmonary vascular con gestion. Chronic interstitial thickening is similar to previous. Small pleural effusions are suspecte d with bibasilar consolidation. No pneumothorax is seen. The skeletal structures are osteopenic. The bony thorax is grossly intact. IMPRESSION: 1. Cardiomegaly with evidence of congestive failure. This has modestly improved as compared to 023. 2. Small pleural effusions with bibasilar consolidation. These have decreased in size from 08/05/2022. ACT 112: Negative or not required by law. Electronically signed by: Geovani Dumont M.D. 08/08/2022 7:23 AM
[2022-08-08] MEDS: MAGNESIUM SULFATE / D5W 1 GM/100 ML BAG IV SCH ×3 (08:28→12:38)
[2022-08-08] MEDS: DOXYCYCLINE HYCLATE 100 MG in DEXTROSE 5% 100 ML IV SCH ×2 (08:28→20:54)
[2022-08-08] MEDS: ADVANCED PROBIOTIC 1250 MG CAPSULE PO SCH (08:30)
[2022-08-08] MEDS: GABAPENTIN 300 MG CAP PO SCH ×2 (08:30→20:59)
[2022-08-08] MEDS: NICOTINE 14 MG/24 HR PATCH TD SCH (08:31)
[2022-08-08] MEDS: LIDOCAINE 5% 1 PATCH TD SCH (08:31)
[2022-08-08] MEDS: PANTOprazole 40 MG TAB PO SCH (08:34)
[2022-08-08] MEDS: METOPROLOL SUCC 50MG EXT REL TAB PO SCH ×2 (08:34→20:59)
[2022-08-08] MEDS: CLOPIDOGREL BISULFATE 75 MG TAB PO SCH (08:34)
[2022-08-08] MEDS: ATORVASTATIN 40 MG TAB PO SCH (08:34)
[2022-08-08] MEDS: ASPIRIN 81 MG ECTAB PO SCH (08:35)
[2022-08-08] MEDS: DULoxetine HCL 60 MG CAP PO SCH (08:37)
[2022-08-08] MEDS: LANTUS PER UNIT CHARGE SQ SCH (08:38)
[2022-08-08] MEDS: INSULIN ASPART PER UNIT CHARGE SC SCH ×4 (08:39→20:53)
--- NOTE | 2022-08-08 11:00 | Hospitalist Progress Note ---
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 Sepsis- resolved. Lyme positive. Blood culture, urine cultures negative. Head CT, abdominal CT negative for acute disease. On Doxy Acute metabolic encephalopathy secondary to above-resolved. Currently at baseline Lyme disease-confirmed with Western blot test. Continue doxycycline D6/10. Empiric Zosyn started on admission was discontinued on 08/05 Hypoxia-worsened post sepsis resuscitation efforts. Chest x-ray showed pulmonary edema, and was started on IV Lasix with good diuresis. Repeat chest x-ray shows significant improvement in pulmonary edema. Clinically improved. Continue supplemental oxygen, wean off as tolerated Acute kidney injury-creatinine worsened to 1.25 today from baseline after 0.9, likely due to IV diuresis. Will hold Lasix and lisinopril today and recheck creatinine in a.m. Hypomagnesia-magnesium 1.3. Repleted IV. Recheck in a.m. Hypertensive urgency-resolved. Blood pressure at goal with increased lisinopril to 20 mg daily and metoprolol succinate to 100 mg twice daily. Lisinopril held today due to GUY Elevated troponin--likely demand ischemia. Patient denies any chest pain. ECHO: Unchanged posterior wall hypokinesis and degree of mitral regurgitation when compared to 05/15/2021 Right common iliac artery stenosis--Discussed with vascular surgery Dr.James Ángel Guerrier per previous hospitalist, Reported similar finding on CT scan last year, no acute intervention needed; Continue aspirin, statin, Plavix Needs follow-up with vascular surgery as outpatient for monitoring. H/O CAD, S/P CABG x 4- H/O MV endocarditis/periaortic abscess; Severe MR- Continue aspirin, Plavix, lisinopril, metoprolol Chronic HFpEf-Lasix held due to GUY. Will likely resume tomorrow if renal functions improved DM II-uncontrolled- continue Insulin per protocol ; HbA1c:11.2 Chronic Tobacco abuse- Encourage cessation, however, patient is not interested in quitting at this time; Continue nicotine patch Anxiety/Paranoia- on Cymbalta, donepezil and Seroquel. Seen by psychiatry for medication adjustment-recommendations noted. DVT Px:SQ Lovenox Dispo-likely discharge home tomorrow if renal function stable to improved. Admission and Anticipated Discharge Date Admission Date: August 02, 2022 Subjective Patient was seen and examined at bedside. She feels better and is hoping to go home soon. Denies any new issues. Breathing is improved. No fever, chills, chest pain, nausea or vomiting Review of Systems Review of Systems: All systems reviewed & are unremarkable except as noted in Subjective Physical Exam Physical Exam: General: Sitting comfortably at bedside, not in distress, on nasal cannula HEENT: EOMI, FREEMAN, MMM Chest: Clear breath sounds bilaterally, crackles resolved CVS: Regular rate and rhythm, normal heart sounds, no murmur Abdomen: Soft, non tender, not distended, normal bowel sounds Neuro: Awake, alert, oriented, conversing well, non focal Extremities: Left BKA Results & Data Results & Data Vital Signs (Past 12 Hours) Vital Signs Temp Pulse Pulse Resp BP Pulse Ox O2 Del Method 08/08/22 09:15 Nasal Cannula 08/08/22 09:12 Nasal Cannula 08/08/22 07:59 37.1 C 69 18 144/84 H 96 Nasal Cannula 08/08/22 07:03 71 08/08/22 02:53 36.7 C 68 18 119/62 96 Nasal Cannula 08/07/22 23:06 36.8 C 70 18 119/78 94 Nasal Cannula O2 Flow Rate 08/08/22 09:15 3 08/08/22 09:12 3 08/08/22 07:59 2 08/08/22 07:03 08/08/22 02:53 3 08/07/22 23:06 3 Laboratory Results Short CBC 08/08/22 Range/Units 05:55 WBC 13.32 H (4.8-10.8) K/ul Hgb 11.1 L (12.0-16.0) g/dl Hct 33.8 L (37.0-47.0) % Plt Count 173 (130-400) K/uL BMP 08/08/22 05:54 Sodium 136 Potassium 3.8 Chloride 99 Carbon Dioxide 30 BUN 21 Creatinine 1.25 H D Glucose 173 H Calcium 8.7 Diagnostic Findings Chest X-Ray 08/08/22 06:00 SINGLE VIEW CHEST CLINICAL HISTORY: Follow-up congestive failure. FINDINGS: An AP, portable, upright chest radiograph is compared to study dated 08/05/2022 and correlated with chest CT dated 08/23/2021. The patient is status post midline sternotomy. The the heart is enlarged and noting atherosclerotic calcification of the thoracic aorta. There is pulmonary vascular congestion. Chronic interstitial thickening is similar to previous. Small pleural effusions are suspected with bibasilar consolidation. No pneumothorax is seen. The skeletal structures are osteopenic. The bony thorax is grossly intact. IMPRESSION: 1. Cardiomegaly with evidence of congestive failure. This has modestly improved as compared to 08/05/2022. 2. Small pleural effusions with bibasilar consolidation. These have decreased in size from 08/05/2022. ACT 112: Negative or not required by law. Electronically signed by: Geovani Dumont M.D. 08/08/2022 7:23 AM Medications Administered Current Inpatient Medications Acetaminophen (Acetaminophen 325 Mg Tab) 650 mg PO Q4H PRN PRN Reason: Pain or Fever Stop: 09/01/22 16:43 Last Admin: 08/03/22 11:58 Dose: 650 mg Al Hydrox/Mg Hydrox/Simethicone (Aluminum/Magnesium Susp 30 Ml Udc) 15 ml PO Q4H PRN PRN Reason: Dyspepsia Stop: 09/01/22 16:43 Last Admin: 08/05/22 12:26 Dose: 15 ml Aspirin (Aspirin 81 Mg Ectab) 81 mg PO DAILY [facility] Stop: 09/02/22 08:59 Last Admin: 08/08/22 08:35 Dose: 81 mg Atorvastatin Calcium (Atorvastatin 40 Mg Tab) 80 mg PO QAM [facility] Stop: 09/04/22 08:59 Last Admin: 08/08/22 08:34 Dose: 80 mg Clopidogrel Bisulfate (Clopidogrel Bisulfate 75 Mg Tab) 75 mg PO DAILY [facility] Stop: 09/02/22 08:59 Last Admin: 08/08/22 08:34 Dose: 75 mg Dextrose (Dextrose 50% 50 Ml Syringe) 25 - 50 ml IV UD PRN; Protocol PRN Reason: Hypoglycemia Protocol Stop: 09/01/22 16:43 Donepezil HCl (Donepezil Hcl 5 Mg Tab) 5 mg PO HS [facility] Stop: 09/01/22 20:59 Last Admin: 08/07/22 21:13 Dose: 5 mg Duloxetine HCl (Duloxetine Hcl 60 Mg Cap) 60 mg PO QAM [facility] Stop: 09/02/22 08:59 Duloxetine HCl (Duloxetine Hcl 60 Mg Cap) 60 mg PO QAM [facility] Stop: 09/05/22 08:59 Last Admin: 08/08/22 08:37 Dose: 60 mg Enoxaparin Sodium (Enoxaparin Inj 40 Mg/0.4 Ml Syr) 40 mg SQ HS [facility] Stop: 09/01/22 20:59 Last Admin: 08/07/22 21:13 Dose: 40 mg Furosemide (Furosemide 40 Mg/4 Ml Vial) 60 mg IV BID17 [facility] Stop: 09/06/22 16:59 Last Admin: 08/07/22 17:07 Dose: 60 mg Gabapentin (Gabapentin 600 Mg Tab) 600 mg PO HS [facility] Stop: 09/01/22 20:59 Last Admin: 08/03/22 00:54 Dose: Not Given Gabapentin (Gabapentin 300 Mg Cap) 300 mg PO BID [facility] Stop: 09/03/22 20:59 Last Admin: 08/08/22 08:30 Dose: 300 mg Glucagon (Glucagon For Inj 1 Mg Vial) 1 mg SQ UD PRN; Protocol PRN Reason: Hypoglycemia Protocol Stop: 09/01/22 16:43 Glucose (Glucose 10 Tab/Tube) 4 - 8 tab PO UD PRN; Protocol PRN Reason: Hypoglycemia Treatment Stop: 09/01/22 16:43 Glucose (Glucose 40% Gel 15 Gm Tube) 15 - 30 gm PO UD PRN; Protocol PRN Reason: Hypoglycemia Protocol Stop: 09/01/22 16:43 Promethazine HCl 12.5 mg/ (Sodium Chloride) 50.5 mls @ 202 mls/hr IV Q6H PRN PRN Reason: Nausea And Vomiting Stop: 09/01/22 22:10 Last Infusion: 08/04/22 05:26 Dose: Infused Doxycycline Hyclate 100 mg/ (Dextrose) 110 mls @ 50 mls/hr IV Q12H [facility] Stop: 08/13/22 08:29 Last Infusion: 08/08/22 10:41 Dose: Infused Magnesium Sulfate/Dextrose (Magnesium Sulfate / D5w) 1 gm in 100 mls @ 50 mls/hr IV Q2H [facility] Stop: 08/08/22 13:44 Last Admin: 08/08/22 10:37 Dose: 50 mls/hr Insulin Aspart (Insulin Aspart Per Unit Charge) 0 units SC ACHS [facility] Stop: 09/01/22 16:43 Last Admin: 08/08/22 08:39 Dose: 7 units Insulin Glargine (Lantus Per Unit Charge) 0 units SQ DAILY [facility]; Protocol Stop: 09/02/22 08:59 Last Admin: 08/08/22 08:38 Dose: 25 units Labetalol HCl (Labetalol Hcl Iv 5 Mg/Ml 20ml) 10 mg IV Q6H PRN PRN Reason: SBP>180 or DBP>100 Stop: 09/02/22 16:11 Last Admin: 08/03/22 16:30 Dose: 10 mg Lactobacillus Acidophilus (Advanced Probiotic 1250 Mg Capsule) 2 cap PO DAILY [facility] Stop: 09/03/22 12:59 Last Admin: 08/08/22 08:30 Dose: 2 cap Lidocaine (Lidocaine 5% 1 Patch) 1 patch TD QAM [facility] Stop: 09/02/22 15:44 Last Admin: 08/08/22 08:31 Dose: 1 patch Lisinopril (Lisinopril 20 Mg Tab) 20 mg PO DAILY [facility] Stop: 09/04/22 08:59 Last Admin: 08/07/22 08:52 Dose: 20 mg Magnesium Hydroxide (Magnesium Hydroxide Susp 30 Ml Udc) 30 ml PO Q12H PRN PRN Reason: Constipation Stop: 09/01/22 16:43 Melatonin (Melatonin 3 Mg Tab) 6 mg PO HS PRN PRN Reason: insomnia Stop: 09/01/22 20:59 Last Admin: 08/07/22 21:09 Dose: 6 mg Metoprolol Succinate (Metoprolol Succ 50mg Ext Rel Tab) 100 mg PO DAILY [facility] Stop: 09/02/22 08:59 Last Admin: 08/08/22 08:34 Dose: 100 mg Metoprolol Succinate (Metoprolol Succ 50mg Ext Rel Tab) 100 mg PO HS [facility] Stop: 09/03/22 20:59 Last Admin: 08/07/22 21:14 Dose: 100 mg Metoprolol Tartrate (Metoprolol Tartrate 1 Mg/Ml Vial) 2.5 mg IV Q4H PRN PRN Reason: Tachycardia> 100 Stop: 09/02/22 06:21 Last Admin: 08/03/22 23:03 Dose: 2.5 mg Miscellaneous (Carbohydrates For Hypoglycemia ) 15 - 30 gm PO UD PRN PRN Reason: Hypoglycemia Protocol Stop: 09/01/22 16:43 Miscellaneous (Remove Nicoderm Patch) 1 each N/A DAILY@0859 [facility] Stop: 09/02/22 08:58 Last Admin: 08/08/22 08:36 Dose: 1 each Miscellaneous (Remove Lidoderm Patch) 1 each N/A DAILY@2100 [facility] Stop: 09/02/22 22:59 Last Admin: 08/07/22 21:14 Dose: 1 each Miscellaneous Information (Pharmacy Glycemic Mgmt Consult) 1 each N/A UD PRN; Protocol PRN Reason: Consult Stop: 09/03/22 07:51 Nicotine (Nicotine 14 Mg/24 Hr Patch) 14 mg TD QAM [facility] Stop: 09/01/22 16:43 Last Admin: 08/08/22 08:31 Dose: 14 mg Olanzapine (Olanzapine 2.5 Mg Tab) 7.5 mg PO [facility] Stop: 09/01/22 20:59 Last Admin: 08/03/22 00:54 Dose: Not Given Pantoprazole Sodium (Pantoprazole 40 Mg Tab) 40 mg PO DAILY [facility] Stop: 09/02/22 08:59 Last Admin: 08/08/22 08:34 Dose: 40 mg Polyethylene Glycol (Polyethylene (Miralax) 17 Gm Pack) 17 gm PO DAILY PRN PRN Reason: Constipation Stop: 09/01/22 16:43 Topiramate (Topiramate 50 Mg Tab) 50 mg PO BID [facility] Stop: 09/01/22 20:59 Last Admin: 08/03/22 00:55 Dose: Not Given Tramadol HCl (Tramadol Hcl 50 Mg Tablet) 25 - 50 mg PO Q4H PRN PRN Reason: Pain Stop: 09/06/22 23:56 Last Admin: 08/08/22 10:12 Dose: 50 mg
--- NOTE | 2022-08-08 12:23 | Pharmacy Report ---
Pharmacy Glycemic Short Note 2 - Date of Service August 08, 2022 - Glycemic Short BSG Results (Last 24 hours): 08/07/22 08/07/22 08/08/22 16:16 20:50 05:54 Glucose 173 H POC Glucose 199 H 138 H 08/08/22 08/08/22 07:48 11:50 Glucose POC Glucose 208 H 264 H OUTPATIENT ANTIDIABETIC REGIMEN: * Insulin glargine 35 units QAM * Insulin aspart sliding scale * A1c 11.2% 08/04/22 ASSESSMENT: 08/08/22 * Patient received 49 units of insulin yesterday (20 units of Lantus and 29 units of bolus) BSGs yesterday were [phone] mg/dL. * Fasting today is 208 mg/dL. Increase basal by 20% to 25 units. Scale for tomorrow with additional 20% increase if BSGs do not decrease. * Tighten CR since BSGs spike at lunchtime. BSGs do trend downwards later in the day so appears that CF is appropriate at this time. 08/06/22 * Patient received total of 36 units of insulin yesterday, of which 15 units were basal insulin * Fasting BSG elevated this morning and continues to trend upward therefore increased to 20 units of basal insulin * Lunch BSG elevated - contacted RN and reports patient consuming sugary drinks/tea / no change to CF/CR as I don't want to overcorrect. Dinner BSGs tend to drop 08/05/22 * Stresors stable * AM fasting BSG in goal range. Will limit Lantus to a max of 15 units/day for now (same dose as yesterday). Hold parameters if below goal. * Mild hypoglycemia of 69 mg/dL noted at dinner yesterday after CHO ratio was tightened at lunch. Will slightly loosen CHO ratio. 08/04/22 * Patient admitted with possible infection, currently on doxycycline/zosyn. * BSGs initially elevated and then trended downward with initiation of insulin. * Fasting this morning 121 mg/dL without basal given yesterday, received 15 units this morning per scale- continue to monitor * Lunch BSG elevated today, will tighten carb ratio * Add overnight checks PLAN FOR INPATIENT GLYCEMIC CONTROL: * Hold outpatient oral diabetes medications * Basal insulin * Lantus 20-30 units daily (20 units if BSG < 140 mg/dL; 25 units if BSG 140- 180 mg/dL; 30 units if BSG > 180 mg/dL) * Bolus insulin * NovoLog per scale ACHS or Q6hrs while NPO * Goal Range: Low 110 mg/dL - High 140 mg/dL * Correction Factor: 30 mg/dL/unit * Nutritional / Prandial insulin per carb ratio of 1 unit per 7 grams CHO consumed
[2022-08-08] MEDS: MELATONIN 3 MG TAB PO PRN (20:54)
[2022-08-08] MEDS: ENOXAPARIN INJ 40 MG/0.4 ML SYR SQ SCH (20:58)
[2022-08-08] MEDS: DONEPEZIL HCL 5 MG TAB PO SCH (20:59)
[2022-08-09] MEDS: traMADol HCL 50 MG TABLET PO PRN (00:47)
[2022-08-09] MEDS: PROMETHAZINE HCL 12.5 MG in SODIUM CHLORIDE 0.9% 50 ML IV PRN (04:25)
[2022-08-09 06:24] LABS: Hematocrit (blood only) 30.3 % (37.0-47.0); Hemoglobin 9.6 g/dl (12.0-16.0); Mean Corpuscular Hemoglobin 30.7 pg (25.0-34.0); Mean Corpuscular Hgb Conc 31.7 g/dL (32.0-36.0); Mean Corpuscular Volume 96.8 fL (80.0-100.0); Mean Platelet Volume 12.1 fL (9.4-12.4); Platelet Count 165 K/uL (130-400); RDW Coefficient of Variation 13.6 % (11.5-14.5); Red Blood Count 3.13 M/uL (4.20-5.40)
[2022-08-09 06:40] LABS: BUN Creatinine Ratio 20.4 (10-20); Calcium 8.7 mg/dl (8.6-10.3); Creatinine Clr Calc Pharmacy 53.8 ml/min; Est GFR (African American) 66.5 ml/min; Est GFR (Non-African American) 57.4 ml/min; Potassium 4.1 mmol/L (3.5-5.1)
[2022-08-09] MEDS: INSULIN ASPART PER UNIT CHARGE SC SCH (08:21)
[2022-08-09] MEDS: METOPROLOL SUCC 50MG EXT REL TAB PO SCH (08:26)
[2022-08-09] MEDS: CLOPIDOGREL BISULFATE 75 MG TAB PO SCH (08:27)
[2022-08-09] MEDS: DULoxetine HCL 60 MG CAP PO SCH (08:27)
[2022-08-09] MEDS: PANTOprazole 40 MG TAB PO SCH (08:27)
[2022-08-09] MEDS: ADVANCED PROBIOTIC 1250 MG CAPSULE PO SCH (08:28)
[2022-08-09] MEDS: ASPIRIN 81 MG ECTAB PO SCH (08:28)
[2022-08-09] MEDS: GABAPENTIN 300 MG CAP PO SCH (08:28)
[2022-08-09] MEDS: ATORVASTATIN 40 MG TAB PO SCH (08:28)
[2022-08-09] MEDS: DOXYCYCLINE HYCLATE 100 MG in DEXTROSE 5% 100 ML IV SCH (08:29)
[2022-08-09] MEDS: NICOTINE 14 MG/24 HR PATCH TD SCH (08:29)
[2022-08-09] MEDS: LIDOCAINE 5% 1 PATCH TD SCH (08:30)
[2022-08-09] MEDS: ALUMINUM/MAGNESIUM SUSP 30 ML UDC PO PRN (08:32)
[2022-08-09] MEDS ORDERED: LANTUS PER UNIT CHARGE SQ SCH (09:00)
[2022-08-09] MEDS ORDERED: FUROSEMIDE 20 MG TAB PO SCH (09:00)
--- NOTE | 2022-08-09 11:25 | Discharge Summary ---
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 She complains of being nauseated for 3-4 days, increased "phlegm," runny nose, feeling fever and fatigue. She denies chills, sweats, dizziness, lightheaded, chest pain, sob, vomiting, dysuria, increased urg/freq with urination and hematuria. She states, "I'm so sick I just can't stand it." She last moved her bowels a couple days ago. Last echocardiogram 11/26/21 revealed normal LV systolic function 55 to 59%, calcification of mitral valve chordae and mild restriction mitral valve leaflet mobility was moderate to severe MR. Epic Records viewed. Admission Exam Per Admitting Provider Pt appeared lethargic, no NC in place Lungs: Good air entry b/l, no wheezing or crackle Cardiac: normal S1/S2, no murmur Abd: soft, but diffuse TTP, ND MSK: L BKA, RLE no edema Psych: AAOX3 but pt was slightly lethargic Neuro: CN II-XII intact, overall normal strength at the UE and LE Principal Diagnosis Sepsis due to Lyme disease, acute diastolic CHF due to fluid resuscitation, acute kidney injury Discharge Exam General: Lying on bed in bed, not in distress, on room air HEENT: EOMI, FREEMAN, MMM Chest: Clear breath sounds bilaterally, crackles resolved CVS: Regular rate and rhythm, normal heart sounds, no murmur Abdomen: Soft, non tender, not distended, normal bowel sounds Neuro: Awake, alert, oriented, conversing well, non focal Extremities: Left BKA Discharge Data Allergies Allergy/AdvReac Type Severity Reaction Status Date / Time latex Allergy Intermediate Rash Verified 04/28/22 13:20 aspirin Allergy Unknown UNKNOWN Verified 04/28/22 13:20 Consultations 08/02/22 13:26 ED Decision to Admit Stat 08/04/22 08:09 Consult Psychiatry Routine Ordered Studies 08/02/22 11:52 CT Abd and Pelvis [CT abd pelvis IV con only] Stat 08/02/22 14:56 CT head/brain wo con Stat Laboratory Results WBC 14.40 K/ul (4.8-10.8) H 08/09/22 06:08 RBC 3.13 M/uL (4.20-5.40) L 08/09/22 06:08 Hgb 9.6 g/dl (12.0-16.0) L 08/09/22 06:08 Hct 30.3 % (37.0-47.0) L 08/09/22 06:08 MCV 96.8 fL (80.0-100.0) 08/09/22 06:08 MCH 30.7 pg (25.0-34.0) 08/09/22 06:08 MCHC 31.7 g/dL (32.0-36.0) L 08/09/22 06:08 RDW Std Deviation 48.0 fL (36.4-46.3) H 08/09/22 06:08 RDW Coeff of Fabio 13.6 % (11.5-14.5) 08/09/22 06:08 Plt Count 165 K/uL (130-400) 08/09/22 06:08 MPV 12.1 fL (9.4-12.4) 08/09/22 06:08 Immature Gran % (Auto) 1.4 % 08/03/22 02:25 Neut % (Auto) 55.5 % 08/03/22 02:25 Lymph % (Auto) 21.9 % 08/03/22 02:25 Harnett % (Auto) 20.9 % 08/03/22 02:25 Eos % (Auto) 0.2 % 08/03/22 02:25 Baso % (Auto) 0.1 % 08/03/22 02:25 Neut # (Auto) 8.27 K/uL (1.40-6.50) H 08/03/22 02:25 Lymph # (Auto) 3.27 K/uL (1.2-3.4) 08/03/22 02:25 [place] # (Auto) 3.11 K/uL (0.11-0.59) H 08/03/22 02:25 Eos # (Auto) 0.03 K/uL (0-0.50) 08/03/22 02:25 Baso # (Auto) 0.02 K/uL (0-0.2) 08/03/22 02:25 Immature Gran # (Auto) 0.21 K/uL (0.01-0.20) H 08/03/22 02:25 Polychromasia 1+ 08/03/22 02:25 PT 10.9 Seconds (9.0-12.0) 08/02/22 10:36 INR 1.0 (0.9-1.1) 08/02/22 10:36 ABG pH 7.39 (7.35-7.45) 08/03/22 02:25 ABG pCO2 37 mmHg (35-46) 08/03/22 02:25 ABG pO2 81 mmHg (80-95) 08/03/22 02:25 ABG HCO3 22 mmol/L (19-24) 08/03/22 02:25 ABG O2 Saturation 97.8 % (90-95) H 08/03/22 02:25 ABG Base Excess -2.2 mEq/L (-9-1.8) 08/03/22 02:25 Christopher Test Pos (Pos) 08/03/22 02:25 Oxygen Given 2L 08/03/22 02:25 Sodium 136 mmol/L (136-145) 08/09/22 06:08 Potassium 4.1 mmol/L (3.5-5.1) 08/09/22 06:08 Chloride 100 mmol/L (98-107) 08/09/22 06:08 Carbon Dioxide 31 mmol/L (21-32) 08/09/22 06:08 Anion Gap 5 (3-11) 08/09/22 06:08 BUN 21 mg/dl (6-23) 08/09/22 06:08 Creatinine 1.03 mg/dl (0.6-1.2) 08/09/22 06:08 Est Cr Clr Drug Dosing 53.8 ml/min 08/09/22 06:08 Est GFR ( Amer) 66.5 ml/min 08/09/22 06:08 Est GFR (Non-Af Amer) 57.4 ml/min 08/09/22 06:08 BUN/Creatinine Ratio 20.4 (10-20) H 08/09/22 06:08 Glucose 139 mg/dl (70-99(Fasting)) H 08/09/22 06:08 POC Glucose 159 mg/dl (70-99) H 08/09/22 07:32 Estimat Average Glucose 275 mg/dl 08/04/22 04:41 Hemoglobin A1c 11.2 % (4.5-5.6) H 08/04/22 04:41 Lactate 1.8 mmol/L (0.4-2.0) 08/02/22 15:57 Calcium 8.7 mg/dl (8.6-10.3) 08/09/22 06:08 Phosphorus 4.1 mg/dl (2.5-4.9) 08/06/22 05:38 Magnesium 2.0 mg/dl (1.7-2.4) 08/09/22 06:08 Total Bilirubin 0.6 mg/dl (0.2-1.0) 08/03/22 02:25 Direct Bilirubin 0.1 mg/dl (0-0.2) 08/02/22 10:36 AST 33 U/L (13-39) 08/03/22 02:25 ALT 24 U/L (7-52) 08/03/22 02:25 Alkaline Phosphatase 66 U/L (34-104) 08/03/22 02:25 Ammonia 38.0 umol/L (18-72) 08/03/22 02:25 Troponin I High Sens 171.1 pg/ml (0-14) H* 08/03/22 02:25 Total Protein 6.2 gm/dl (6.0-8.3) 08/03/22 02:25 Albumin 3.2 gm/dl (3.4-5.0) L 08/03/22 02:25 Globulin 3.0 gm/dl (2.5-4.0) 08/03/22 02:25 Albumin/Globulin Ratio 1.1 (0.9-2) 08/03/22 02:25 Triglycerides 325 mg/dl (0-150) H 08/04/22 04:41 Cholesterol 271 mg/dl (0-200) H 08/04/22 04:41 LDL Cholesterol, Calc 184 mg/dl 08/04/22 04:41 VLDL Cholesterol, Calc 65 mg/dl (0-30) H 08/04/22 04:41 HDL Cholesterol 22 mg/dl 08/04/22 04:41 Cholesterol/HDL Ratio 12.3 (0-5) H 08/04/22 04:41 Procalcitonin < 0.05 ng/ml (0-0.5) 08/02/22 10:36 Urine Color Dark Yellow 08/02/22 11:55 Urine Appearance Cloudy (Clear) A 08/02/22 11:55 Urine pH 5.5 (4.5-7.5) 08/02/22 11:55 Ur Specific [place] 1.035 (1.000-1.030) H 08/02/22 11:55 Urine Protein 4+ (Negative) H 08/02/22 11:55 Urine Glucose (UA) 3+ (Negative) H 08/02/22 11:55 Urine Ketones 1+ (Negative) H 08/02/22 11:55 Urine Blood 1+ (Negative) H 08/02/22 11:55 Urine Nitrite Negative (Negative) 08/02/22 11:55 Urine Bilirubin Negative (Negative) 08/02/22 11:55 Urine Urobilinogen Negative (Negative) 08/02/22 11:55 Ur Leukocyte Esterase Trace (Negative) H 08/02/22 11:55 Urine WBC (Auto) 5-10 /hpf (0-5) H 08/02/22 11:55 Urine RBC (Auto) 0-4 /hpf (0-4) 08/02/22 11:55 U Hyaline Cast (Auto) 5-10 /lpf (0-5) H 08/02/22 11:55 U Epithel Cells (Auto) >30 /lpf (0-5) H 08/02/22 11:55 Urine Bacteria (Auto) 1+ (Negative) H 08/02/22 11:55 Ur Renal Epithelial Cell Not Reportable 08/02/22 11:55 Urine Yeast Not Reportable 08/02/22 11:55 Nasal Screen MRSA (PCR) Negative (Negative) 08/03/22 Unknown Urine Opiates Screen Neg (Neg) 08/02/22 11:55 Ur Methadone, Qual Neg (Neg) 08/02/22 11:55 Urine Barbiturates Neg (Neg) 08/02/22 11:55 Ur Phencyclidine (PCP) Neg (Neg) 08/02/22 11:55 U Amphetamin/Meth Scrn Neg (Neg) 08/02/22 11:55 MDMA (Ecstasy) Screen Neg (Neg) 08/02/22 11:55 U Benzodiazepines Scrn Neg (Neg) 08/02/22 11:55 Ur Cocaine Metabolite Neg (Neg) 08/02/22 11:55 U Marijuana (THC) Screen Neg (Neg) 08/02/22 11:55 Anaplasma Smear Cancelled 08/03/22 02:25 Anaplasma Smear See Comment 08/03/22 02:25 Lyme Disease IgG Ab Negative (Negative) 08/02/22 10:36 Lyme IgG (Western Blot) NEGATIVE (NEGATIVE) 08/02/22 10:36 Lyme IgG 18 kDa Band NON-REACTIVE 08/02/22 10:36 Lyme IgG 23 kDa Band NON-REACTIVE 08/02/22 10:36 Lyme IgG 28 kDa Band NON-REACTIVE 08/02/22 10:36 Lyme IgG 30 kDa Band NON-REACTIVE 08/02/22 10:36 Lyme IgG 39 kDa Band NON-REACTIVE 08/02/22 10:36 Lyme IgG 41 kDa Band NON-REACTIVE 08/02/22 10:36 Lyme IgG 45 kDa Band NON-REACTIVE 08/02/22 10:36 Lyme IgG 58 kDa Band NON-REACTIVE 08/02/22 10:36 Lyme IgG 66 kDa Band NON-REACTIVE 08/02/22 10:36 Lyme IgG 93 kDa Band NON-REACTIVE 08/02/22 10:36 Lyme IgM Ab (WB) POSITIVE (NEGATIVE) A 08/02/22 10:36 Lyme Disease IgM Ab Positive (Negative) A 08/02/22 10:36 Lyme IgM 23 kDa Band REACTIVE A 08/02/22 10:36 Lyme IgM 39 kDa Band NON-REACTIVE 08/02/22 10:36 Lyme IgM 41 kDa Band REACTIVE A 08/02/22 10:36 Hepatitis C Ab (EIA) NON-REACTIVE (NON-REACTIVE) 08/03/22 02:25 SARS-CoV-2, RNA, NAAT NEGATIVE (NEGATIVE) 08/02/22 13:40 Impressions Abdomen/Pelvis CT 08/02/22 11:52 CT OF THE ABDOMEN AND PELVIS WITH CONTRAST CLINICAL HISTORY: Abdominal pain. Sepsis. COMPARISON STUDY: CT of the abdomen and pelvis March 16, 2021 TECHNIQUE: Following IV administration of 95 mL of Optiray, axial images of the abdomen and pelvis were obtained from the lung bases to the proximal femurs. Images were reviewed in the axial, sagittal, and coronal planes. IV contrast was administered without complication. Automated exposure control was utilized for the study. A dose lowering technique was utilized adhering to the principles of ALARA. CT DOSE: 1081.59 mGy.cm FINDINGS: No pneumatosis, free air or portal venous gas is present. There are no hepatic lesions. Mild biliary ductal dilatation is unchanged since prior CT and likely related to cholecystectomy. Spleen and pancreas are normal. Bilateral adrenal nodules are unchanged since CT of March 16, 2021. These are likely benign. There is no hydronephrosis. There are no ureteral calculi. There is no evidence for a bowel obstruction. The appendix is not visualized. There is minimal perirectal stranding. There is mild wall thickening of portions of the colon, including the ascending and descending colon. This could be due to underdistention. No abscess is present. The uterus is surgically absent. There is extensive aortoiliac atherosclerotic plaque with suspected severe stenosis of the proximal right common iliac artery. IMPRESSION: 1. No definite acute findings within the abdomen or pelvis. 2. Apparent wall thickening of portions of the colon and rectum. This is likely due to underdistention however a mild nonspecific proctocolitis could appear similar. 3. No bowel obstruction. 4. Extensive aortoiliac atherosclerotic plaque. Suspected severe stenosis of the proximal right common iliac artery. ACT 112: Negative or not required by law. Electronically signed by: Grover Delacruz M.D. 08/02/2022 1:[address] 08/02/22 14:56 CT head/brain wo con CLINICAL HISTORY: 62 years-old Female with drowsiness. Acute dizziness TECHNIQUE: Multiple axial CT images of the head were obtained without contrast. A dose lowering technique was utilized adhering to the principles of ALARA. CT DOSE: 625.80 mGy.cm COMPARISON: 05/14/2021 FINDINGS: No acute intracranial hemorrhage, midline shift, intracranial mass, hydrocephalus, territorial ischemia or abnormal extra-axial collection. Motion degraded exam. Involutional changes with chronic microvascular ischemic disease. Ill-defined increased attenuation adjacent to the temporal horn right lateral ventricle is likely artifactual. The calvarium is intact. Prior bilateral lens repair. The paranasal sinuses, mastoid air cells, and middle ear cavities are clear. IMPRESSION: Motion degraded exam. No acute intracranial abnormality or calvarial fracture. ACT 112: Negative or not required by law. The above report was generated using voice recognition software. It may contain grammatical, syntax or spelling errors. Electronically signed by: Alexi Wu M.D. 08/02/2022 3:56 PM Chest X-Ray 08/08/22 06:00 SINGLE VIEW CHEST CLINICAL HISTORY: Follow-up congestive failure. FINDINGS: An AP, portable, upright chest radiograph is compared to study dated 08/05/2022 and correlated with chest CT dated 08/23/2021. The patient is status post midline sternotomy. The the heart is enlarged and noting atherosclerotic calcification of the thoracic aorta. There is pulmonary vascular congestion. Chronic interstitial thickening is similar to previous. Small pleural effusions are suspected with bibasilar consolidation. No pneumothorax is seen. The skeletal structures are osteopenic. The bony thorax is grossly intact. IMPRESSION: 1. Cardiomegaly with evidence of congestive failure. This has modestly improved as compared to 08/05/2022. 2. Small pleural effusions with bibasilar consolidation. These have decreased in size from 08/05/2022. ACT 112: Negative or not required by law. Electronically signed by: Geovani Dumont M.D. 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 She was found to have sepsis due to Lyme disease. Blood and urine culture remained negative. CT head, abdominal CT was negative for acute pathology. She was started on Doxy and Zosyn on admission, Zosyn was discontinued on 08/05. She also had fluid restriction for sepsis and her diuretics were held after which she developed hypoxia with chest x-ray showing pulmonary edema on 08/05. She was started on IV Lasix 40 twice daily with good diuresis and improvement in her respiratory status. However she developed GUY with creatinine worsening to 1.25 yesterday for which Lasix and lisinopril were held and her creatinine is down to 1 today. Repeat chest x-ray yesterday showed significant improvement in her pulm edema. Her shortness of breath and hypoxia have resolved and she has been on room air this morning. She feels at her baseline and is anxious to go home. She has home health set up. She is comfortable and stable for discharge home. Her lisinopril, metoprolol were uptitrated for her hypertension and her Cymbalta was decreased as per psych recommendation. Sepsis- resolved. Lyme positive. Blood culture, urine cultures negative. Head CT, abdominal CT negative for acute disease. Empiric Zosyn started on admission was discontinued on 08/05. Remains on Doxy for Lyme disease Acute metabolic encephalopathy secondary to above-resolved. Currently at baseline Lyme disease-confirmed with Western blot test. Continue doxycycline for 1 more week. Hypoxia-resolved, on room air saturating well this morning. Her hypoxia was due to pulm edema due to volume resuscitation for sepsis and resolved with IV Lasix. Acute kidney injury-resolved. Creatinine down to 1, closer to her baseline. Resumed home Lasix Hypomagnesia- resolved. Hypertensive urgency-resolved. Blood pressure at goal with increased lisinopril to 20 mg daily and metoprolol succinate to 100 mg twice daily. Discharging on same. Elevated troponin--likely demand ischemia. Patient denies any chest pain. ECHO: Unchanged posterior wall hypokinesis and degree of mitral regurgitation when compared to 05/15/2021 Right common iliac artery stenosis--Discussed with vascular surgery Dr.James Ángel Guerrier per previous hospitalist, Reported similar finding on CT scan last year, no acute intervention needed; Continue aspirin, statin, Plavix Recommended follow-up with vascular surgery as outpatient for monitoring. H/O CAD, S/P CABG x 4- H/O MV endocarditis/periaortic abscess; Severe MR- Continue aspirin, Plavix, lisinopril, metoprolol Chronic HFpEf- continue home lasix DM II-uncontrolled- continue home meds; HbA1c:11.2. OP follow up with diabetes clinic and PCP for better control Chronic Tobacco abuse- Encourage cessation, however, patient is not interested in quitting at this time Anxiety/Paranoia- on Cymbalta, zyprexa. Seen by psychiatry for medication adjustment-recommendations noted. Cymbalta decreased to 60 mg daily. F/u with psych as OP for further adjustment Total Time Total Time Spent Total Time Spent (In Minutes): 45 Discharge Plan Discharge Items Patient Disposition: Home - Self-Care Reason For Visit: POSSIBLE SEPSIS Discharge Diagnosis: Lyme disease Activity: Resume your previous activity Non-emergency contact: Primary Care Provider Call non-emergency contact if: you have any medication questions, your symptoms worsen and you have a fever Follow-up/Referrals: Christiano Simon PA-C [Primary Care Provider] - Diet: Carb Consistent or DM2 Addtl Attending Provider Instructions: Continue the antibiotic doxycycline twice daily for 1 more week for your lyme disease. Your blood pressure medicines have been increased to better control your blood pressure. Your cymbalta dose has been decreased to 60 mg daily Follow up with your family doctor in a week with repeat blood work (CBC, BMP) to monitor your white count and kidney numbers. Pending Studies at Discharge: No Stand-Alone Forms: [facility] [employer], Smoking Cessation Medications and DC Order Prescriptions: New doxycycline hyclate 100 mg tablet 100 mg PO BID 5 Days Qty: 14 0RF Continued clopidogrel 75 mg tablet 75 mg PO DAILY topiramate 50 mg tablet 50 mg PO BID duloxetine 60 mg capsule,delayed release(DR/EC) 60 mg PO QAM Rx Instructions: Last filled 03/21/22 x90 day supply. Take 60mg capsule w/ 30 mg capsule for 90mg dose once in the morning aspirin 81 mg Tablet,Delayed Release (Dr/Ec) 81 mg PO DAILY nitroglycerin 0.4 mg tablet, sublingual 0.4 mg sublingual .PRN/UD PRN (Reason: Chest Pain) Rx Instructions: NEEDED FOR CHEST PAIN : ONE TABLET UNDER THE TONGUE EVERY 5 MINUTES UP TO THREE DOSES. insulin aspart U-100 [Novolog FlexPen U-100 Insulin] 100 unit/mL (3 mL) Insulin Pen 0 unit SUBCUT TID MDD 72 UNITS/DAY. Rx Instructions: PER SLIDING SCALE donepezil 5 mg tablet 5 mg PO HS Rx Instructions: Last filled 06/01/22 x30 day supply acetaminophen [Tylenol Extra Strength] 500 mg Tablet 500 mg PO Q6H PRN (Reason: Pain) gabapentin 300 mg capsule See Rx Instructions .ROUTE .COMPLEX Rx Instructions: 300 mg; TAKES 300 MG QAM, THEN 600 MG QHS. omeprazole 20 mg Capsule,Delayed Release(Dr/Ec) 20 mg PO DAILY furosemide [Lasix] 20 mg Tablet 60 mg PO DAILY insulin glargine [Basaglar KwikPen U-100 Insulin] 100 unit/mL (3 mL) Insulin Pen 35 unit SUBCUT QAM cetirizine [Zyrtec] 10 mg Tablet 10 mg PO DAILY olanzapine 7.5 mg Tablet 7.5 mg PO HS ergocalciferol (vitamin D2) [Vitamin D2] 1,250 mcg (50,000 unit) Capsule 1,250 mcg PO WK melatonin 5 mg Tablet 5 mg PO HS atorvastatin 80 mg tablet 80 mg PO DAILY Changed metoprolol succinate 50 mg tablet extended release 24 hr 100 mg PO BID Qty: 60 0RF Rx Instructions: 50 mg orally; TAKES 100 MG QAM, THEN 50 MG QPM. lisinopril 10 mg tablet 20 mg PO DAILY Qty: 30 0RF Discontinued duloxetine 30 mg capsule,delayed release(DR/EC) 30 mg PO QAM Rx Instructions: TOTAL DOSE 90 MG--TAKE WITH 60 MG CAP. Discharge Orders: Discharge Order (Routine); Ordered 08/09/22 Ordered By: Nicanor Aragon/Other Patient Handouts: High Blood Sugar (Hyperglycemia) Admission Data Admit Date/Time: 08/02/22 14:26 Attending Provider: Nicanor Smith Admit Provider: Dominique Nicole Primary Care Provider: Christiano Simon Other Providers: Dominique Nicole ; Ronit Rhodes ; Moni Moses ; Bird Fournier Other Interventions: Discharge Summary Assessment (RN) Last Done: 08/09/22 10:35
== END 2022-08-09 12:24 | disposition home or self-care (01) | DRG 871 ==
LOC: ED 10:15 → 2W 14:26 → SUATTDRO 14:26 → 2W 16:16 → 1E 23:56 → 4W 08-05 16:40

== ENCOUNTER 2022-08-20 08:08 | Inpatient (IN) ==
[2022-08-20] MEDS ORDERED: NITROGLYCERIN 2% OINTMENT 30GM TUBE EXT STA (08:34)
[2022-08-20] MEDS ORDERED: ONDANSETRON INJ 2 MG/ML 2 ML VIAL IV STA (08:34)
[2022-08-20 08:36] LABS: Basophils # (auto) 0.04 K/uL (0-0.2); Basophils % (auto) 0.4 %; Eosinophils # (auto) 0.12 K/uL (0-0.50); Eosinophils % (auto) 1.2 %; Hematocrit (blood only) 31.7 % (37.0-47.0); Immature Granulocytes # (auto) 0.27 K/uL (0.01-0.20); Immature Granulocytes % (auto) 2.7 %; Lymphocytes # (auto) 2.25 K/uL (1.2-3.4); Lymphocytes % (auto) 22.7 %; Mean Corpuscular Hemoglobin 31.1 pg (25.0-34.0); Mean Corpuscular Hgb Conc 31.5 g/dL (32.0-36.0); Mean Corpuscular Volume 98.4 fL (80.0-100.0); Mean Platelet Volume 11.1 fL (9.4-12.4); Monocytes # (auto) 2.16 K/uL (0.11-0.59); Monocytes % (auto) 21.8 %; Neutrophils # (auto) 5.09 K/uL (1.40-6.50); Neutrophils % (auto) 51.2 %; Nucleated RBC # (auto) 0.02 K/uL (0-0.12); Nucleated RBC % (auto) 0.2 %; Platelet Count 251 K/uL (130-400); RDW Coefficient of Variation 16.5 % (11.5-14.5); RDW Standard Deviation 57.1 fL (36.4-46.3); Red Blood Count 3.22 M/uL (4.20-5.40); White Blood Count 9.93 K/ul (4.8-10.8)
--- NOTE | 2022-08-20 08:48 | XRay Report ---
XR chest 1V portable HISTORY: 62 years-old Female Chest pain, nonspecific acute chest pain COMPARISON: 08/08/2022 TECHNIQUE: AP view of the chest FINDINGS: Cardiac silhouette is enlarged. Prior median sternotomy with CABG. Pulmonary vascular congestion with interstitial coarsening. No pneumothorax. Layering pleural effusions with bibasilar consolidation. B ones appear grossly intact. IMPRESSION: 1. Cardiomegaly with pulmonary edema. 2. Layering pleural effusions with bibasilar consolidation, likely atelectatic. ACT 112: Negative or not required by law. The above report was generated using voice recognition software. It may contain grammatical, syntax o r spelling errors. Electronically signed by: Alexi Wu M.D. 08/20/2022 8:47 AM
[2022-08-20 09:03] LABS: Alanine Aminotransferase 17 U/L (7-52); Albumin Globulin Ratio 1.1 (0.9-2); Albumin Level 3.7 gm/dl (3.4-5.0); Alkaline Phosphatase 72 U/L (34-104); Anion Gap 7 (3-11); Aspartate Aminotransferase 17 U/L (13-39); BUN Creatinine Ratio 8.3 (10-20); Bilirubin,Total 0.9 mg/dl (0.2-1.0); Blood Urea Nitrogen 8 mg/dl (6-23); Calcium 8.9 mg/dl (8.6-10.3); Carbon Dioxide 28 mmol/L (21-32); Chloride 102 mmol/L (98-107); Est GFR (African American) 72.4 ml/min; Est GFR (Non-African American) 62.5 ml/min; Globulin 3.3 gm/dl (2.5-4.0); Glucose 386 mg/dl (70-99(Fasting)); Lipase 26 U/L (11-82); Sodium 137 mmol/L (136-145); Troponin I High Sensitivity 29.4 pg/ml (0-14)
[2022-08-20] MEDS ORDERED: FUROSEMIDE 40 MG/4 ML VIAL IV ONE (09:23)
[2022-08-20 09:35] LABS: Base Excess VBG 1.3 mEq/L; HCO3 VBG 28 mmol/L; Oxygen Saturation VBG < 60.0 %; PCO2 VBG 51 mmHg (38-50); PO2 VBG 24 mmHg; pH VBG 7.34 (7.36-7.41)
[2022-08-20] MEDS ORDERED: CARBOHYDRATES FOR HYPOGLYCEMIA PO PRN (10:08)
[2022-08-20] MEDS ORDERED: DEXTROSE 50% 50 ML SYRINGE IV PRN (10:08)
[2022-08-20] MEDS ORDERED: GLUCOSE 40% GEL 15 GM TUBE PO PRN (10:08)
[2022-08-20] MEDS ORDERED: GLUCAGON FOR INJ 1 MG VIAL SQ PRN (10:08)
[2022-08-20] MEDS ORDERED: GLUCOSE 10 TAB/TUBE PO PRN (10:08)
[2022-08-20] MEDS ORDERED: LANTUS PER UNIT CHARGE SQ ONE (10:10)
[2022-08-20] MEDS ORDERED: PHARMACY GLYCEMIC MGMT CONSULT PRN (10:10)
--- NOTE | 2022-08-20 10:11 | History & Physical Report ---
Date of Service August 20, 2022 Assessment & Plan (1) Acute decompensated heart failure: (2) Mitral regurgitation: (3) Hypoxia: (4) Anemia: (5) Anemia: (6) Dyslipidemia: (7) Diabetes mellitus, type 2: (8) Coronary artery disease: (9) HTN (hypertension): (10) Psychotic disorder: (11) Tobacco use disorder: Plan This is a 62yo F with a PMH of CAD s/p CABG x4, history of ischemic cardiomyopathy, moderate to severe MR, chronic HFpEF, HTN, history of LBBB, HLD, insulin-dependent T2DM, chronic tobacco abuse, left lower extremity BKA due to osteomyelitis, history of mitral valve endocarditis and periaortic abscess, chronic normocytic anemia who presents to ED with acute decompensated heart failure. Recently admitted from 08/02-08/09 for sepsis in setting of Lyme disease, decompensated HF and GUY. Diureses well on 40mg IV lasix 1-2x daily and was discharged home with 1 week of doxycycline to complete for Lyme disease. Also saw psych service during previous admission and Cymbalta dose was decreased per their recommendation. Acute decompensated CHF Hypoxia Requiring 2-3 L O2 since arrival. Previously required oxygen last admission when volume overloaded but back to room air by time of discharge after IV lasix BNP 408 today with CXR showing cardiomegaly with pulmonary edema, layering pleural effusions with bibasilar consolidation, likely atelectatic 2D echo from August 03, 2022 with mildly reduced EF of 45 to 50%, mid posterior wall hypokinetic, moderate to severe mitral regurgitation, mild tricuspid regurgitation Given 40mg IV lasix in ED, will continue with 40mg IV BID17 schedule, monitor I&Os, daily weight, continue beta raymond Lethargy Notably sleepy although wakens to answer questions appropriately. VBG with e/o mild resp acidosis. Ordered CPAP, continue monitoring and obtain ABG/ CT head if lethargy persists Elevated troponin HS troponin 29.4 -> 22.7, likely demand ischemia. Patient denies any chest pain, EKG without any acute changes. Monitor on telemetry Right common iliac artery stenosis Follows with vascular surgery Dr.James Ángel Guerrier Continue aspirin, statin, Plavix Recommended follow-up with vascular surgery as outpatient for monitoring (scheduled in Sep 2022) H/O CAD, S/P CABG x 4-H/O MV endocarditis/periaortic abscess; Severe MR- Continue aspirin, Plavix, lisinopril, metoprolol DM II-uncontrolled HbA1c:11.2 last month Given missed AM Glargine dose Basal bolus insulin per protocol while admitted Glycemic consult placed, would benefit from continued diabetic education BSG AC HS Chronic Tobacco abuse Encourage cessation, however, patient is not interested in quitting at this time Anxiety/Paranoia Continue Cymbalta, Zyprexa. Seen by psychiatry for medication adjustment on previous admission and Cymbalta decreased to 60mg daily History of prolonged qtc Avoid qtc prolonging agents as able, qtc 520 on EKG this morning DVT Ppx: SQ lovenox Code status: FULL PCP: MARY Simon Dispo: Admitted to PCU Patient seen in collaboration with Dr. Camejo. Please see addendum. I spent a total of 75 minutes coordinating, documenting, and providing care for this patient excluding time spent in the performance of separately billed services. History of Present Illness Chief Complaint: SOB Primary Care Provider: Christiano Simon PA-C This is a 62yo F with a PMH of CAD s/p CABG x4, history of ischemic cardiomyopathy, moderate to severe MR, chronic HFpEF, HTN, history of LBBB, HLD, insulin-dependent T2DM, chronic tobacco abuse, left lower extremity BKA due to osteomyelitis, history of mitral valve endocarditis and periaortic abscess, chronic normocytic anemia, ISAURA on CPAP who presents to ED with progressive SOB over the past 3 days. Was recently admitted from 08/02-08/09 for sepsis in setting of Lyme disease, decompensated HF and GUY. Diureses well on 40mg IV lasix 1-2x daily and was discharged home with 1 week of doxycycline to complete for Lyme disease. Also saw psych service during previous admission and Cymbalta dose was decreased per their recommendation. Since discharge home, patient has felt well until a few days ago when she started to feel like she was retaining fluid again. Endorsing 5-10 lb weight gain. Endorses progressive SOB. Denies missing any lasix doses and is taking medications as scheduled. Only took novolog before presenting this morning. Feels nauseated and woke up feeling this way. Denies any vomiting or abdonimal pain. No F/C, lightheadedness, CP, dysuria, diarrhea or constipation. Allergies Allergy/AdvReac Type Severity Reaction Status Date / Time latex Allergy Intermediate Rash Verified 04/28/22 13:20 aspirin Allergy Unknown UNKNOWN Verified 04/28/22 13:20 Home Medications Medication Instructions Recorded Confirmed Type clopidogrel 75 mg tablet 75 mg PO DAILY 03/16/21 08/20/22 History duloxetine 60 mg capsule,delayed 60 mg PO QAM 03/16/21 08/20/22 History release topiramate 50 mg tablet 50 mg PO BID 03/16/21 08/20/22 History aspirin 81 mg tablet,delayed 81 mg PO DAILY 05/14/21 08/20/22 History release insulin aspart U-100 100 unit/mL 0 unit subcut TID 05/14/21 08/20/22 History (3 mL) subcutaneous pen (Novolog FlexPen U-100 Insulin aspart) nitroglycerin 0.4 mg sublingual 0.4 mg sublingual .PRN/UD PRN 05/14/21 08/20/22 History tablet Chest Pain acetaminophen 500 mg tablet 500 mg PO Q6H PRN Pain 08/23/21 08/20/22 History (Tylenol Extra Strength) donepezil 5 mg tablet 5 mg PO HS 08/23/21 08/20/22 History furosemide 20 mg tablet (Lasix) 60 mg PO DAILY 08/23/21 08/20/22 History gabapentin 300 mg capsule See Rx Instructions .Route .COMPLEX 08/23/21 08/20/22 History insulin glargine 100 unit/mL (3 35 unit subcut QAM 08/23/21 08/20/22 History mL) subcutaneous pen (Basaglar KwikPen U-100 Insulin) omeprazole 20 mg capsule,delayed 20 mg PO DAILY 08/23/21 08/20/22 History release cetirizine 10 mg tablet (Zyrtec) 10 mg PO DAILY 08/02/22 08/20/22 History ergocalciferol (vitamin D2) 1,250 1,250 mcg PO WK 08/02/22 08/20/22 History mcg (50,000 unit) capsule (Vitamin D2) melatonin 5 mg tablet 5 mg PO HS 08/02/22 08/20/22 History olanzapine 7.5 mg tablet 7.5 mg PO HS 08/02/22 08/20/22 History atorvastatin 80 mg tablet 80 mg PO DAILY 08/04/22 08/20/22 History lisinopril 10 mg tablet 20 mg PO DAILY #30 tabs 08/09/22 08/20/22 Rx metoprolol succinate 50 mg 100 mg PO BID #60 tabs 08/09/22 08/20/22 Rx tablet,extended release 24 hr Past Med/Surg History Medical History Abscess of aorta Acute on chronic HFrEF (heart failure with reduced ejection fraction) Anxiety Carotid stenosis according to records from 2019 CEA was recommended but patient declined. no objective quantification available Carpal tunnel syndrome, left Chronic congestive heart failure with left ventricular diastolic dysfunction Coronary artery disease Diabetes mellitus, type 2 DVT prophylaxis Encounter for pre-operative examination Fracture of left tibial plateau HFrEF (heart failure with reduced ejection fraction) History of left below knee amputation HTN (hypertension) LBBB (left bundle branch block) MRSA bacteremia Osteomyelitis Psychotic disorder Right foot pain Tobacco use disorder Ulnar neuropathy at elbow of left upper extremity Surgical History Status post cholecystectomy Status post coronary artery bypass grafting Status post hysterectomy Status post ORIF of fracture of ankle R, 2016 Family History Other Diabetes Heart disease Social History Smoking Status: Heavy tobacco smoker Tobacco Type: Cigarettes packs per day: 1; Cigarettes Per Day: 10; Second Hand Exposure: Yes; Do You Dip or Chew Tobacco: No; Tobacco Cessation Education Requested by Patient: No Hx Alcohol Use: No Hx Substance Use: No Preferred Language: [place] Communication Ability: Effective Real Property Appraiser Required: No Beliefs That Will Affect Care: None marital status: Current Living Situation: Alone Current Living Situation Comment: house Other Information That Helps Us Care for You: No Feels Safe at Home: Yes Safety Concerns: Feels Safe At This Time Assistive Devices: Oxygen - Continuous and Wheelchair Review of Systems Review of Systems: At least ten systems reviewed and negative except as noted in the HPI. Physical Exam Physical Exam: General Appearance: WD/WN, vitals as above, NAD, sitting up in bed, lethargic but awakens to answer simple questions, follows commands Head: normocephalic, atraumatic Eyes: normal inspection, PERRL, conjunctivae normal, anicteric sclerae ENT: external ear and nose normal, oropharynx normal Neck: normal visual inspection, trachea midline, no thyromegaly Respiratory: normal respiratory effort, bibasilar rales, no wheeze or rhonchi. No accessory muscle use Cardiovascular: tachycardic rate, regular rhythm, no murmur, normal peripheral pulses Abdomen/GI: normal bowel sounds, soft but mild diffuse ttp, no h epatosplenomegaly Extremities/Musculoskeletal: + L BKA, RLE no edema no cyanosis or clubbing, extremities motor strength 5/5 Neurologic: PERRL, EOMI, accommodation nl, no face palsy, no dysarthria, CN's II-XI intact bilaterally and moves all extremities Psychiatric: A+Ox3 but slgihtly lethargic Skin: no rashes, normal color, warm/dry Results & Data Results & Data Vital Signs (Past 12 Hours) Vital Signs Temp Pulse Resp BP Pulse Ox O2 Del Method O2 Flow Rate 08/20/22 08:19 105 H 08/20/22 08:10 36.7 C 108 H 28 H 166/81 H 94 Nasal Cannula 3 Laboratory Results Short CBC 08/20/22 Range/Units 08:16 WBC 9.93 (4.8-10.8) K/ul Hgb 10.0 L (12.0-16.0) g/dl Hct 31.7 L (37.0-47.0) % Plt Count 251 (130-400) K/uL BMP 08/20/22 08:16 Sodium 137 Potassium 4.0 Chloride 102 Carbon Dioxide 28 BUN 8 Creatinine 0.96 Glucose 386 H* Calcium 8.9 Liver Function 08/20/22 Range/Units 08:16 Total Bilirubin 0.9 (0.2-1.0) mg/dl AST 17 (13-39) U/L ALT 17 (7-52) U/L Alkaline Phosphatase 72 (34-104) U/L Albumin 3.7 (3.4-5.0) gm/dl Diagnostic Findings Chest X-Ray 08/20/22 08:12 XR chest 1V portable HISTORY: 62 years-old Female Chest pain, nonspecific acute chest pain COMPARISON: 08/08/2022 TECHNIQUE: AP view of the chest FINDINGS: Cardiac silhouette is enlarged. Prior median sternotomy with CABG. Pulmonary vascular congestion with interstitial coarsening. No pneumothorax. Layering pleural effusions with bibasilar consolidation. Bones appear grossly intact. IMPRESSION: 1. Cardiomegaly with pulmonary edema. 2. Layering pleural effusions with bibasilar consolidation, likely atelectatic. ACT 112: Negative or not required by law. The above report was generated using voice recognition software. It may contain grammatical, syntax or spelling errors. Electronically signed by: Alexi Wu M.D. 08/20/2022 8:47 AM ECG Additional Comments: EKG reviewied: sinus tachycardia at 106 bpm, known LBBB, no significant changes from previous Code Status & VTE Plan VTE Prophylaxis Plan VTE Prophylaxis will be ordered: Yes Supervising Physician Co-Signing Physician Notes Patient seen and examined independently. Discussed with above provider. Patient is a 62-year-old female with complicated cardiac history presented to the ED with shortness of breath, lethargy and nausea. Chest x-ray consistent with pulmonary edema. ABG reviewed; acute on chronic hypoxic respiratory failure. Started diuresis with IV Lasix 40 mg twice daily Levemir and NovoLog for hyperglycemia PT OT eval (4) Anemia Anemia type: unspecified type Qualified Code(s): D64.9 - Anemia, unspecified
[2022-08-20] MEDS ORDERED: POLYETHYLENE (MIRALAX) 17 GM PACK PO PRN (10:53)
[2022-08-20] MEDS ORDERED: ONDANSETRON INJ 2 MG/ML 2 ML VIAL IV PRN (10:53)
[2022-08-20] MEDS ORDERED: ERGOCALCIFEROL 50,000 UNITS 1250 MCG CAP PO SCH (11:32)
[2022-08-20] MEDS: INSULIN ASPART PER UNIT CHARGE SC SCH ×3 (11:46→20:26)
[2022-08-20] MEDS: TOPIRAMATE 50 MG TAB PO SCH ×2 (11:50→20:27)
[2022-08-20] MEDS: DULoxetine HCL 60 MG CAP PO SCH (11:50)
[2022-08-20] MEDS: METOPROLOL SUCC 50MG EXT REL TAB PO SCH ×2 (11:50→20:28)
[2022-08-20] MEDS: ENOXAPARIN INJ 40 MG/0.4 ML SYR SQ SCH (11:50)
[2022-08-20] MEDS: CLOPIDOGREL BISULFATE 75 MG TAB PO SCH (11:50)
--- NOTE | 2022-08-20 13:40 | Pharmacy Report ---
Pharmacy Glycemic Short Note 2 - Date of Service August 20, 2022 - Glycemic Short BSG Results (Last 24 hours): 08/20/22 08/20/22 08/20/22 08:16 10:48 10:50 Glucose 386 H* POC Glucose 440 H* 433 H* OUTPATIENT ANTIDIABETIC REGIMEN: * ASSESSMENT: * 62 y/o F admitted for acute decompensated heart failure. She was recently admitted last month for Sepsis. Patient with history of uncontrolled diabetes managed on basal and bolus insulins at home. * On admission today, patient had elevated blood sugars above 300 mg/dl. Unclear when she took her last dose of basal insulin. * Provider ordered basal 35 units in the ED today AM which is her home dose and this was given. Plan to continue with this daily for now. * Novolog ordered based what worked for her during her past admission, this amounts to stress of 3 parameters. PLAN FOR INPATIENT GLYCEMIC CONTROL: * Basal insulin * Lantus 35 units SQ QAM * Bolus insulin * NovoLog per scale ACHS or Q6hrs while NPO * Goal Range: Low 110 mg/dL - High 140 mg/dL * Correction Factor: 20 mg/dL/unit * Nutritional / Prandial insulin per carb ratio of 1 unit per 6 grams CHO consumed
[2022-08-20] MEDS: FUROSEMIDE 40 MG/4 ML VIAL IV SCH (15:03)
--- NOTE | 2022-08-20 16:19 | Emergency Department Note ---
History of Present Illness General Chief Complaint: Cardiac Assessment Stated Complaint: chest pain, SOB History of Present Illness Provider Complaint: chest pain Onset (ago): day(s) 1 Duration: improved Onset: during rest Pain Location: substernal Current Pain Intensity: 0 Quality: + heaviness Relieved By: + nitroglycerin Exacerbated By: + nothing Context: no recent illness or no recent travel Associated symptoms: + dyspnea; no nausea, no diaphoresis, no syncope, no palpitations or no cough Treatments prior to arrival: aspirin and nitroglycerin (X3) Home Medications Medication Instructions Recorded Confirmed Type clopidogrel 75 mg tablet 75 mg PO DAILY 03/16/21 08/20/22 History duloxetine 60 mg capsule,delayed 60 mg PO QAM 03/16/21 08/20/22 History release topiramate 50 mg tablet 50 mg PO BID 03/16/21 08/20/22 History aspirin 81 mg tablet,delayed 81 mg PO DAILY 05/14/21 08/20/22 History release insulin aspart U-100 100 unit/mL 0 unit subcut TID 05/14/21 08/20/22 History (3 mL) subcutaneous pen (Novolog FlexPen U-100 Insulin aspart) nitroglycerin 0.4 mg sublingual 0.4 mg sublingual .PRN/UD PRN 05/14/21 08/20/22 History tablet Chest Pain acetaminophen 500 mg tablet 500 mg PO Q6H PRN Pain 08/23/21 08/20/22 History (Tylenol Extra Strength) donepezil 5 mg tablet 5 mg PO HS 08/23/21 08/20/22 History furosemide 20 mg tablet (Lasix) 60 mg PO DAILY 08/23/21 08/20/22 History gabapentin 300 mg capsule See Rx Instructions .Route .COMPLEX 08/23/21 08/20/22 History insulin glargine 100 unit/mL (3 35 unit subcut QAM 08/23/21 08/20/22 History mL) subcutaneous pen (Basaglar KwikPen U-100 Insulin) omeprazole 20 mg capsule,delayed 20 mg PO DAILY 08/23/21 08/20/22 History release cetirizine 10 mg tablet (Zyrtec) 10 mg PO DAILY 08/02/22 08/20/22 History ergocalciferol (vitamin D2) 1,250 1,250 mcg PO WK 08/02/22 08/20/22 History mcg (50,000 unit) capsule (Vitamin D2) melatonin 5 mg tablet 5 mg PO HS 08/02/22 08/20/22 History olanzapine 7.5 mg tablet 7.5 mg PO HS 08/02/22 08/20/22 History atorvastatin 80 mg tablet 80 mg PO DAILY 08/04/22 08/20/22 History lisinopril 10 mg tablet 20 mg PO DAILY #30 tabs 08/09/22 08/20/22 Rx metoprolol succinate 50 mg 100 mg PO BID #60 tabs 08/09/22 08/20/22 Rx tablet,extended release 24 hr Allergies Allergy/AdvReac Type Severity Reaction Status Date / Time latex Allergy Intermediate Rash Verified 04/28/22 13:20 aspirin Allergy Unknown UNKNOWN Verified 04/28/22 13:20 Past Med/Surg History Medical History Abscess of aorta Acute on chronic HFrEF (heart failure with reduced ejection fraction) Anxiety Carotid stenosis according to records from 2019 CEA was recommended but patient declined. no objective quantification available Carpal tunnel syndrome, left Chronic congestive heart failure with left ventricular diastolic dysfunction Coronary artery disease Diabetes mellitus, type 2 DVT prophylaxis Encounter for pre-operative examination Fracture of left tibial plateau HFrEF (heart failure with reduced ejection fraction) History of left below knee amputation HTN (hypertension) LBBB (left bundle branch block) MRSA bacteremia Osteomyelitis Psychotic disorder Right foot pain Tobacco use disorder Ulnar neuropathy at elbow of left upper extremity Surgical History Status post cholecystectomy Status post coronary artery bypass grafting Status post hysterectomy Status post ORIF of fracture of ankle R2016 Family History Other Diabetes Heart disease Social History Smoking Status: Heavy tobacco smoker Tobacco Type: Cigarettes packs per day: 1; Cigarettes Per Day: 10; Second Hand Exposure: Yes; Do You Dip or Chew Tobacco: No; Tobacco Cessation Education Requested by Patient: No Hx Alcohol Use: No Hx Substance Use: No Preferred Language: Maltese Communication Ability: Effective Health Physicist Required: No Beliefs That Will Affect Care: None marital status: Current Living Situation: Alone Current Living Situation Comment: house Other Information That Helps Us Care for You: No Feels Safe at Home: Yes Safety Concerns: Feels Safe At This Time Assistive Devices: Oxygen - Continuous and Wheelchair Physical Exam Vital Signs Vital Signs - 24 hr 08/20/22 08:10 08/20/22 08:10 08/20/22 08:19 Temperature 36.7 C Temperature Source Oral Pulse Rate 108 H 105 H Respiratory Rate 28 H Respiratory Effort / Characteristics Short of Breath Spontaneous Short of Breath Respiratory Pattern Regular Blood Pressure 166/81 H Blood Pressure Mean 109 Blood Pressure Position Sitting Pulse Oximetry 94 Oxygen Delivery Method Nasal Cannula Oxygen Flow Rate 3 Sepsis Recent Fever Within 48 Hours No Sepsis New/Unexplained Change in Mental Status No Sepsis Action Taken by Nursing Physician Notified Physical Exam GENERAL: Ill-appearing HENT: Exam performed. - Head: Normocephalic and atraumatic. EYES: Conjunctivae and EOM are normal. Right eye exhibits no discharge. Left eye exhibits no discharge. No scleral icterus. NECK: Normal range of motion. Neck supple. No JVD present. CV: Normal rate, regular rhythm, normal heart sounds and intact distal pulses. 2+ pitting edema of the right lower extremity palpable radial pulses bue. PULM/CHEST: Inspiratory rales bilaterally. MUSC: Left BKA.2+ pitting edema of the right lower extremity ABD: The abdomen is soft. There is no tenderness. NEURO: Motor and sensation grossly intact. Course Course 0800: Received a call from EMS. Concern for STEMI. EMS EKG shows left bundle branch block but no sgarbosa criteria. External medical records reviewed and the patient wears 2 L of oxygen all the time has an intermittent left bundle branch block history of coronary artery disease with a CABG 0810: The patient was evaluated in room A1. A complete history and physical exam was performed Cardiac monitoring: An order was placed for continuous cardiac monitoring. The monitor shows a rate of 110 with sinus rhythm interpreted by me Patient reports her symptoms of chest pain and difficulty breathing have improved with sublingual nitroglycerin. 0930: Vital signs stable. Labs show mildly elevated troponin, chronically elevated improved since previous troponins. BNP elevated. Chest x-ray shows very medically with pulmonary vascular congestion. Patient's had a 4 kg weight gain since discharge. Patient was given Lasix and admitted to the [facility] hospitalist team. Administered Medications Clopidogrel Bisulfate (Clopidogrel Bisulfate 75 Mg Tab) 75 mg PO DAILY SAMANTHA Stop: 09/19/22 11:14 Last Admin: 08/20/22 11:50 Dose: 75 mg Documented By: NATALIE Duloxetine HCl (Duloxetine Hcl 60 Mg Cap) 60 mg PO QAM SAMANTHA Stop: 09/19/22 11:14 Last Admin: 08/20/22 11:50 Dose: 60 mg Documented By: NATALIE Enoxaparin Sodium (Enoxaparin Inj 40 Mg/0.4 Ml Syr) 40 mg SQ Q24H SAMANTHA Stop: 09/19/22 11:14 Last Admin: 08/20/22 11:50 Dose: 40 mg Documented By: NATALIE Ergocalciferol (Ergocalciferol 50,000 Units 1250 Mcg Cap) 50,000 units PO Sa@1100 [facility] Stop: 09/19/22 11:31 Last Admin: 08/20/22 12:34 Dose: 50,000 units Documented By: NATALIE Furosemide (Furosemide 40 Mg/4 Ml Vial) 40 mg IV BID@1400 [facility] Stop: 09/19/22 14:29 Last Admin: 08/20/22 15:03 Dose: 40 mg Documented By: NATALIE Insulin Aspart (Insulin Aspart Per Unit Charge) 0 units SC ACHS SAMANTHA Stop: 09/19/22 11:29 Last Admin: 08/20/22 11:46 Dose: 15 units Documented By: NATALIE Co-signed By: LYNDON Metoprolol Succinate (Metoprolol Succ 50mg Ext Rel Tab) 100 mg PO BID [facility] Stop: 09/19/22 11:14 Last Admin: 08/20/22 11:50 Dose: 100 mg Documented By: NATALIE Topiramate (Topiramate 50 Mg Tab) 50 mg PO BID SAMANTHA Stop: 09/19/22 11:14 Last Admin: 08/20/22 11:50 Dose: 50 mg Documented By: NATALIE Discontinued Medications Furosemide (Furosemide 40 Mg/4 Ml Vial) 40 mg IV ONE ONE Stop: 08/20/22 09:24 Last Admin: 08/20/22 09:57 Dose: 40 mg Documented By: CHUN Insulin Glargine (Lantus Per Unit Charge) 35 units SQ NOW ONE Stop: 08/20/22 10:11 Last Admin: 08/20/22 11:26 Dose: 35 units Documented By: NATALIE Co-signed By: TIFFANY Nitroglycerin (Nitroglycerin 2% Ointment 30gm Tube) 0.5 inch EXT NOW STA Stop: 08/20/22 08:35 Last Admin: 08/20/22 08:42 Dose: 0.5 inch Documented By: AM Ondansetron HCl (Ondansetron Inj 2 Mg/Ml 2 Ml Vial) 4 mg IV NOW STA Stop: 08/20/22 08:35 Last Admin: 08/20/22 08:42 Dose: 4 mg Documented By: AM Medical Decision Making Laboratory Data Attestation: I reviewed the patient's lab results. 08/20/22 08:16 08/20/22 08:16 Labs: Lab Results 08/20/22 08/20/22 08/20/22 Range/Units 08:16 08:16 08:16 WBC 9.93 (4.8-10.8) K/ul RBC 3.22 L (4.20-5.40) M/uL Hgb 10.0 L (12.0-16.0) g/dl Hct 31.7 L (37.0-47.0) % MCV 98.4 (80.0-100.0) fL MCH 31.1 (25.0-34.0) pg MCHC 31.5 L (32.0-36.0) g/dL RDW Std Deviation 57.1 H (36.4-46.3) fL RDW Coeff of Fabio 16.5 H (11.5-14.5) % Plt Count 251 (130-400) K/uL MPV 11.1 (9.4-12.4) fL Immature Gran % (Auto) 2.7 % Neut % (Auto) 51.2 % Lymph % (Auto) 22.7 % [place] % (Auto) 21.8 % Eos % (Auto) 1.2 % Baso % (Auto) 0.4 % Neut # (Auto) 5.09 (1.40-6.50) K/uL Lymph # (Auto) 2.25 (1.2-3.4) K/uL [place] # (Auto) 2.16 H (0.11-0.59) K/uL Eos # (Auto) 0.12 (0-0.50) K/uL Baso # (Auto) 0.04 (0-0.2) K/uL Immature Gran # (Auto) 0.27 H (0.01-0.20) K/uL Absolute Nucleated RBC 0.02 (0-0.12) K/uL Nucleated RBC % (auto) 0.2 % VBG pH (7.36-7.41) VBG pCO2 (38-50) mmHg VBG pO2 mmHg VBG HCO3 mmol/L VBG O2 Saturation % VBG Base Excess mEq/L Sodium 137 (136-145) mmol/L Potassium 4.0 (3.5-5.1) mmol/L Chloride 102 (98-107) mmol/L Carbon Dioxide 28 (21-32) mmol/L Anion Gap 7 (3-11) BUN 8 (6-23) mg/dl Creatinine 0.96 (0.6-1.2) mg/dl Est Cr Clr Drug Dosing Not Reportable Est GFR ( Amer) 72.4 ml/min Est GFR (Non-Af Amer) 62.5 ml/min BUN/Creatinine Ratio 8.3 L (10-20) Glucose 386 H* (70-99(Fasting)) mg/dl Calcium 8.9 (8.6-10.3) mg/dl Total Bilirubin 0.9 (0.2-1.0) mg/dl AST 17 (13-39) U/L ALT 17 (7-52) U/L Alkaline Phosphatase 72 (34-104) U/L Troponin I High Sens 29.4 H (0-14) pg/ml B-Natriuretic Peptide 408 H (0-100) pg/ml Total Protein 7.0 (6.0-8.3) gm/dl Albumin 3.7 (3.4-5.0) gm/dl Globulin 3.3 (2.5-4.0) gm/dl Albumin/Globulin Ratio 1.1 (0.9-2) Lipase 26 (11-82) U/L SARS-CoV-2, RNA, NAAT (NEGATIVE) 08/20/22 08/20/22 Range/Units 08:17 09:29 WBC (4.8-10.8) K/ul RBC (4.20-5.40) M/uL Hgb (12.0-16.0) g/dl Hct (37.0-47.0) % MCV (80.0-100.0) fL MCH (25.0-34.0) pg MCHC (32.0-36.0) g/dL RDW Std Deviation (36.4-46.3) fL RDW Coeff of Fabio (11.5-14.5) % Plt Count (130-400) K/uL MPV (9.4-12.4) fL Immature Gran % (Auto) % Neut % (Auto) % Lymph % (Auto) % [place] % (Auto) % Eos % (Auto) % Baso % (Auto) % Neut # (Auto) (1.40-6.50) K/uL Lymph # (Auto) (1.2-3.4) K/uL [place] # (Auto) (0.11-0.59) K/uL Eos # (Auto) (0-0.50) K/uL Baso # (Auto) (0-0.2) K/uL Immature Gran # (Auto) (0.01-0.20) K/uL Absolute Nucleated RBC (0-0.12) K/uL Nucleated RBC % (auto) % VBG pH 7.34 L (7.36-7.41) VBG pCO2 51 H (38-50) mmHg VBG pO2 24 mmHg VBG HCO3 28 mmol/L VBG O2 Saturation < 60.0 % VBG Base Excess 1.3 mEq/L Sodium (136-145) mmol/L Potassium (3.5-5.1) mmol/L Chloride (98-107) mmol/L Carbon Dioxide (21-32) mmol/L Anion Gap (3-11) BUN (6-23) mg/dl Creatinine (0.6-1.2) mg/dl Est Cr Clr Drug Dosing Est GFR ( Amer) ml/min Est GFR (Non-Af Amer) ml/min BUN/Creatinine Ratio (10-20) Glucose (70-99(Fasting)) mg/dl Calcium (8.6-10.3) mg/dl Total Bilirubin (0.2-1.0) mg/dl AST (13-39) U/L ALT (7-52) U/L Alkaline Phosphatase (34-104) U/L Troponin I High Sens (0-14) pg/ml B-Natriuretic Peptide (0-100) pg/ml Total Protein (6.0-8.3) gm/dl Albumin (3.4-5.0) gm/dl Globulin (2.5-4.0) gm/dl Albumin/Globulin Ratio (0.9-2) Lipase (11-82) U/L SARS-CoV-2, RNA, NAAT NEGATIVE (NEGATIVE) ECG Data Attestation: I personally reviewed and interpreted this ECG as follows: Additional Comments: EKG #1 at 0812: Sinus tachycardia with rate of 117. ND 132 QRS 142 QTc 513. Left bundle branch block present. Sgarbossa negative. EKG #2 at 0825: Sinus tachycardia with a rate of 106. ND 140 QRS 148 QTc 520. Left bundle branch block present. Sgarbossa negative. MDM Narrative 0800: Received a call from EMS. Concern for STEMI. EMS EKG shows left bundle branch block but no sgarbosa criteria. External medical records reviewed and the patient wears 2 L of oxygen all the time has an intermittent left bundle branch block history of coronary artery disease with a CABG 0810: The patient was evaluated in room A1. A complete history and physical exam was performed Cardiac monitoring: An order was placed for continuous cardiac monitoring. The monitor shows a rate of 110 with sinus rhythm interpreted by me Patient reports her symptoms of chest pain and difficulty breathing have improved with sublingual nitroglycerin. 0930: Vital signs stable. Labs show mildly elevated troponin, chronically elevated improved since previous troponins. BNP elevated. Chest x-ray shows very medically with pulmonary vascular congestion. Patient's had a 4 kg weight gain since discharge. [facility] & Plan Acute exacerbation of congestive heart failure Discharge Plan Visit Data Chief Complaint: Cardiac Assessment Stated Complaint: chest pain, SOB ED Provider: Papito Conner Discharge Problem: Acute exacerbation of congestive heart failure Patient Disposition: Admitted As Inpatient Discharge Instructions Interventions: ED Discharge Assessment Last Done: 08/20/22 10:43
[2022-08-20] MEDS ORDERED: FUROSEMIDE 40 MG/4 ML VIAL IV SCH (17:00)
[2022-08-20] MEDS: ACETAMINOPHEN 325 MG TAB PO PRN (17:58)
[2022-08-20] MEDS: GABAPENTIN 600 MG TAB PO SCH (20:26)
[2022-08-20] MEDS: DONEPEZIL HCL 5 MG TAB PO SCH (20:28)
[2022-08-20] MEDS: MELATONIN 3 MG TAB PO SCH (20:36)
[2022-08-20] MEDS ORDERED: OLANZAPINE 2.5 MG TAB PO SCH (21:00)
[2022-08-21 06:16] LABS: Basophils # (auto) 0.04 K/uL (0-0.2); Basophils % (auto) 0.4 %; Eosinophils # (auto) 0.15 K/uL (0-0.50); Eosinophils % (auto) 1.7 %; Hematocrit (blood only) 28.9 % (37.0-47.0); Hemoglobin 9.1 g/dl (12.0-16.0); Immature Granulocytes # (auto) 0.18 K/uL (0.01-0.20); Lymphocytes # (auto) 2.48 K/uL (1.2-3.4); Lymphocytes % (auto) 27.3 %; Mean Corpuscular Hemoglobin 30.5 pg (25.0-34.0); Mean Corpuscular Hgb Conc 31.5 g/dL (32.0-36.0); Mean Platelet Volume 11.2 fL (9.4-12.4); Monocytes % (auto) 24.3 %; Neutrophils # (auto) 4.02 K/uL (1.40-6.50); Neutrophils % (auto) 44.3 %; Platelet Count 217 K/uL (130-400); RDW Coefficient of Variation 16.3 % (11.5-14.5); RDW Standard Deviation 56.5 fL (36.4-46.3); Red Blood Count 2.98 M/uL (4.20-5.40); White Blood Count 9.07 K/ul (4.8-10.8)
[2022-08-21 06:40] LABS: Albumin Globulin Ratio 1.1 (0.9-2); Albumin Level 3.1 gm/dl (3.4-5.0); BUN Creatinine Ratio 15.2 (10-20); Bilirubin,Total 0.6 mg/dl (0.2-1.0); Calcium 8.7 mg/dl (8.6-10.3); Creatinine Clr Calc Pharmacy 53.5 ml/min; Est GFR (African American) 69.8 ml/min; Est GFR (Non-African American) 60.2 ml/min; Globulin 2.8 gm/dl (2.5-4.0); Potassium 3.6 mmol/L (3.5-5.1); Total Protein 5.9 gm/dl (6.0-8.3)
--- NOTE | 2022-08-21 06:56 | Electrocardiogram Report ---
Test Reason : Blood Pressure : / mmHG Vent. Rate : 106 BPM Atrial Rate : 106 BPM P-R Int : 140 ms QRS Dur : 148 ms QT Int : 392 ms P-R-T Axes : 053 -16 107 degrees QTc Int : 520 ms Sinus tachycardia Left bundle branch block Abnormal ECG When compared with ECG of 20-AUG-2022 08:12, (unconfirmed) No significant change was found Confirmed by Allen Dey ([id number]) on 08/21/2022 6:56:08 AM Referred By: Confirmed By:Paolo Dey
--- NOTE | 2022-08-21 06:58 | Electrocardiogram Report ---
Test Reason : Blood Pressure : / mmHG Vent. Rate : 117 BPM Atrial Rate : 117 BPM P-R Int : 132 ms QRS Dur : 142 ms QT Int : 368 ms P-R-T Axes : 060 -08 101 degrees QTc Int : 513 ms Sinus tachycardia Left bundle branch block Abnormal ECG When compared with ECG of 05-AUG-2022 04:47, Vent. rate has increased BY 51 BPM Confirmed by Allen Dey ([id number]) on 08/21/2022 6:58:48 AM Referred By: Confirmed By:Paolo Dey
--- NOTE | 2022-08-21 07:09 | Electrocardiogram Report ---
Test Reason : Blood Pressure : / mmHG Vent. Rate : 075 BPM Atrial Rate : 075 BPM P-R Int : 150 ms QRS Dur : 152 ms QT Int : 452 ms P-R-T Axes : 049 -19 094 degrees QTc Int : 504 ms Normal sinus rhythm Left bundle branch block Abnormal ECG When compared with ECG of 20-AUG-2022 08:25, (unconfirmed) No significant change was found Confirmed by Allen Dey ([id number]) on 08/21/2022 7:09:19 AM Referred By: REFERRED SELF Confirmed By:Paolo Dey
[2022-08-21] MEDS: ASPIRIN 81 MG ECTAB PO SCH (08:20)
[2022-08-21] MEDS: ATORVASTATIN 40 MG TAB PO SCH (08:20)
[2022-08-21] MEDS: INSULIN ASPART PER UNIT CHARGE SC SCH ×4 (08:20→20:15)
[2022-08-21] MEDS: TOPIRAMATE 50 MG TAB PO SCH ×2 (08:21→21:10)
[2022-08-21] MEDS: CETIRIZINE HCL 10 MG TABLET PO SCH (08:21)
[2022-08-21] MEDS: METOPROLOL SUCC 50MG EXT REL TAB PO SCH ×2 (08:21→21:10)
[2022-08-21] MEDS: DULoxetine HCL 60 MG CAP PO SCH (08:21)
[2022-08-21] MEDS: lisinopril 20 MG TAB PO SCH (08:21)
[2022-08-21] MEDS: LANTUS PER UNIT CHARGE SC SCH (08:21)
[2022-08-21] MEDS: PANTOprazole 40 MG TAB PO SCH (08:21)
[2022-08-21] MEDS: CLOPIDOGREL BISULFATE 75 MG TAB PO SCH (08:21)
[2022-08-21] MEDS: GABAPENTIN 300 MG CAP PO SCH (08:21)
[2022-08-21] MEDS ORDERED: PROMETHAZINE HCL 6.25 MG in SODIUM CHLORIDE 0.9% 50 ML IV PRN (09:29)
--- NOTE | 2022-08-21 11:16 | Hospitalist Progress Note ---
Date of Service August 21, 2022 Assessment & Plan (1) Acute decompensated heart failure: (2) Mitral regurgitation: (3) Hypoxia: (4) Anemia: (5) Dyslipidemia: (6) Diabetes mellitus, type 2: (7) Coronary artery disease: (8) HTN (hypertension): (9) Psychotic disorder: (10) Tobacco use disorder: Plan This is a 62yo F with a PMH of CAD s/p CABG x4, history of ischemic cardiomyopathy, moderate to severe MR, chronic HFpEF, HTN, history of LBBB, HLD, insulin-dependent T2DM, chronic tobacco abuse, left lower extremity BKA due to osteomyelitis, history of mitral valve endocarditis and periaortic abscess, chronic normocytic anemia who presents to ED with acute decompensated heart failure. Recently admitted from 08/02-08/09 for sepsis in setting of Lyme disease, decompensated HF and GUY. Diureses well on 40mg IV lasix 1-2x daily and was discharged home with 1 week of doxycycline to complete for Lyme disease. Also saw psych service during previous admission and Cymbalta dose was decreased per their recommendation. Acute decompensated CHF Hypoxia Requiring 2-3 L O2 since arrival. Previously required oxygen last admission when volume overloaded but back to room air by time of discharge after IV lasix Chest x-ray personally reviewed; consistent with cardiomegaly with pulmonary edema with layering pleural effusion BNP 408 2D echo from August 03, 2022 with mildly reduced EF of 45 to 50%, mid posterior wall hypokinetic, moderate to severe mitral regurgitation, mild tricuspid regurgitation Continue on IV Lasix 40 mg twice daily Strict input and output Daily weights Lethargy Notably sleepy although wakens to answer questions appropriately. VBG with e/o mild resp acidosis. On CPAP; continue Elevated troponin HS troponin 29.4 -> 22.7, likely demand ischemia. EKG personally reviewed; normal sinus rhythm with LBBB Right common iliac artery stenosis Follows with vascular surgery Dr.James Ángel Guerrier Continue aspirin, statin, Plavix Recommended follow-up with vascular surgery as outpatient for monitoring (scheduled in Sep 2022) H/O CAD, S/P CABG x 4-H/O MV endocarditis/periaortic abscess; Severe MR- Continue aspirin, Plavix, lisinopril, metoprolol DM II-uncontrolled HbA1c:11.2 last month Basal bolus insulin per protocol while admitted Glycemic consult placed, would benefit from continued diabetic education BSG AC HS Chronic Tobacco abuse Encourage cessation, however, patient is not interested in quitting at this time Anxiety/Paranoia Continue Cymbalta, Zyprexa. Seen by psychiatry for medication adjustment on previous admission and Cymbalta decreased to 60mg daily History of prolonged qtc Avoid qtc prolonging agents as able, qtc 520 on EKG this morning DVT Ppx: SQ lovenox Code status: FULL PCP: MARY Simon Dispo: Admitted to PCU Time spent evaluating patient, direct bedside care, chart review, placing orders, interpretation of diagnostic studies, discussion with consultants, patient, and family members, as well as other required patient management activities is 60 minutes. Please note the above document was generated using voice recognition software. It may contain grammatical, syntax or spelling errors. Any formal questions or concerns about the content, text or information contained within the body of this dictation should be directly addressed to the provider for clarification Admission and Anticipated Discharge Date Admission Date: August 20, 2022 Subjective Patient seen and examined at bedside. She is lying on the bed comfortably; reports nausea. Able to eat her breakfast well. Vital stable; afebrile. Review of Systems Review of Systems: All systems reviewed & are unremarkable except as noted in Subjective Physical Exam Physical Exam: Constitutional: Appears slightly lethargic; not in any distress. Respiratory: Bilateral basal crackles present Cardiovascular: RRR, no murmur, no edema Vessels: no JVD or carotid bruit Chest: normal inspection of chest Abdomen: normal bowel sounds, soft, nontender, no hepatosplenomegaly Musculoskeletal: no cyanosis or clubbing, extremities motor strength 5/5. Left below-knee amputation Skin: no rashes, warm and dry normal turgor Neurologic: Grossly intact. Psychiatric: A+Ox3, euthymic affect Results & Data Results & Data Vital Signs (Past 12 Hours) Vital Signs Temp Pulse Resp BP Pulse Ox O2 Del Method O2 Flow Rate 08/21/22 10:49 Nasal Cannula 3 08/21/22 07:23 36.7 C 65 20 101/67 91 Nasal Cannula 3 08/21/22 03:40 36.6 C 72 112/71 92 Nasal Cannula 3 Laboratory Results Laboratory Results WBC 9.07 K/ul (4.8-10.8) 08/21/22 05:40 RBC 2.98 M/uL (4.20-5.40) L 08/21/22 05:40 Hgb 9.1 g/dl (12.0-16.0) L 08/21/22 05:40 Hct 28.9 % (37.0-47.0) L 08/21/22 05:40 MCV 97.0 fL (80.0-100.0) 08/21/22 05:40 MCH 30.5 pg (25.0-34.0) 08/21/22 05:40 MCHC 31.5 g/dL (32.0-36.0) L 08/21/22 05:40 RDW Std Deviation 56.5 fL (36.4-46.3) H 08/21/22 05:40 RDW Coeff of Fabio 16.3 % (11.5-14.5) H 08/21/22 05:40 Plt Count 217 K/uL (130-400) 08/21/22 05:40 MPV 11.2 fL (9.4-12.4) 08/21/22 05:40 Immature Gran % (Auto) 2.0 % 08/21/22 05:40 Neut % (Auto) 44.3 % 08/21/22 05:40 Lymph % (Auto) 27.3 % 08/21/22 05:40 [place] % (Auto) 24.3 % 08/21/22 05:40 Eos % (Auto) 1.7 % 08/21/22 05:40 Baso % (Auto) 0.4 % 08/21/22 05:40 Neut # (Auto) 4.02 K/uL (1.40-6.50) 08/21/22 05:40 Lymph # (Auto) 2.48 K/uL (1.2-3.4) 08/21/22 05:40 [place] # (Auto) 2.20 K/uL (0.11-0.59) H 08/21/22 05:40 Eos # (Auto) 0.15 K/uL (0-0.50) 08/21/22 05:40 Baso # (Auto) 0.04 K/uL (0-0.2) 08/21/22 05:40 Immature Gran # (Auto) 0.18 K/uL (0.01-0.20) 08/21/22 05:40 Absolute Nucleated RBC 0.02 K/uL (0-0.12) 08/20/22 08:16 Nucleated RBC % (auto) 0.2 % 08/20/22 08:16 VBG pH 7.34 (7.36-7.41) L 08/20/22 08:17 VBG pCO2 51 mmHg (38-50) H 08/20/22 08:17 VBG pO2 24 mmHg 08/20/22 08:17 VBG HCO3 28 mmol/L 08/20/22 08:17 VBG O2 Saturation < 60.0 % 08/20/22 08:17 VBG Base Excess 1.3 mEq/L 08/20/22 08:17 Sodium 141 mmol/L (136-145) 08/21/22 05:40 Potassium 3.6 mmol/L (3.5-5.1) 08/21/22 05:40 Chloride 106 mmol/L (98-107) 08/21/22 05:40 Carbon Dioxide 30 mmol/L (21-32) 08/21/22 05:40 Anion Gap 5 (3-11) 08/21/22 05:40 BUN 15 mg/dl (6-23) 08/21/22 05:40 Creatinine 0.99 mg/dl (0.6-1.2) 08/21/22 05:40 Est Cr Clr Drug Dosing 53.5 ml/min 08/21/22 05:40 Est GFR ( Amer) 69.8 ml/min 08/21/22 05:40 Est GFR (Non-Af Amer) 60.2 ml/min 08/21/22 05:40 BUN/Creatinine Ratio 15.2 (10-20) 08/21/22 05:40 Glucose 137 mg/dl (70-99(Fasting)) H 08/21/22 05:40 POC Glucose 280 mg/dl (70-99) H 08/21/22 10:58 Calcium 8.7 mg/dl (8.6-10.3) 08/21/22 05:40 Total Bilirubin 0.6 mg/dl (0.2-1.0) 08/21/22 05:40 AST 18 U/L (13-39) 08/21/22 05:40 ALT 14 U/L (7-52) 08/21/22 05:40 Alkaline Phosphatase 61 U/L (34-104) 08/21/22 05:40 Troponin I High Sens 22.7 pg/ml (0-14) H 08/20/22 12:38 B-Natriuretic Peptide 408 pg/ml (0-100) H 08/20/22 08:16 Total Protein 5.9 gm/dl (6.0-8.3) L 08/21/22 05:40 Albumin 3.1 gm/dl (3.4-5.0) L 08/21/22 05:40 Globulin 2.8 gm/dl (2.5-4.0) 08/21/22 05:40 Albumin/Globulin Ratio 1.1 (0.9-2) 08/21/22 05:40 Lipase 26 U/L (11-82) 08/20/22 08:16 SARS-CoV-2, RNA, NAAT NEGATIVE (NEGATIVE) 08/20/22 09:29 Impressions Chest X-Ray 08/20/22 08:12 XR chest 1V portable HISTORY: 62 years-old Female Chest pain, nonspecific acute chest pain COMPARISON: 08/08/2022 TECHNIQUE: AP view of the chest FINDINGS: Cardiac silhouette is enlarged. Prior median sternotomy with CABG. Pulmonary vascular congestion with interstitial coarsening. No pneumothorax. Layering pleural effusions with bibasilar consolidation. Bones appear grossly intact. IMPRESSION: 1. Cardiomegaly with pulmonary edema. 2. Layering pleural effusions with bibasilar consolidation, likely atelectatic. ACT 112: Negative or not required by law. The above report was generated using voice recognition software. It may contain grammatical, syntax or spelling errors. Electronically signed by: Alexi Wu M.D. 08/20/2022 8:47 AM (4) Anemia Anemia type: unspecified type Qualified Code(s): D64.9 - Anemia, unspecified
[2022-08-21] MEDS: ENOXAPARIN INJ 40 MG/0.4 ML SYR SQ SCH (11:46)
[2022-08-21] MEDS: FUROSEMIDE 40 MG/4 ML VIAL IV SCH (12:23)
[2022-08-21] MEDS: MELATONIN 3 MG TAB PO SCH (21:10)
[2022-08-21] MEDS: DONEPEZIL HCL 5 MG TAB PO SCH (21:10)
[2022-08-21] MEDS: GABAPENTIN 600 MG TAB PO SCH (21:11)
[2022-08-22 06:13] LABS: Basophils # (auto) 0.04 K/uL (0-0.2); Basophils % (auto) 0.4 %; Eosinophils # (auto) 0.16 K/uL (0-0.50); Eosinophils % (auto) 1.4 %; Hematocrit (blood only) 27.7 % (37.0-47.0); Hemoglobin 8.5 g/dl (12.0-16.0); Immature Granulocytes # (auto) 0.23 K/uL (0.01-0.20); Lymphocytes # (auto) 2.58 K/uL (1.2-3.4); Lymphocytes % (auto) 22.9 %; Mean Corpuscular Hemoglobin 30.2 pg (25.0-34.0); Mean Corpuscular Hgb Conc 30.7 g/dL (32.0-36.0); Mean Corpuscular Volume 98.6 fL (80.0-100.0); Mean Platelet Volume 11.1 fL (9.4-12.4); Monocytes # (auto) 2.97 K/uL (0.11-0.59); Monocytes % (auto) 26.4 %; Neutrophils # (auto) 5.27 K/uL (1.40-6.50); Neutrophils % (auto) 46.9 %; Platelet Count 209 K/uL (130-400); RDW Coefficient of Variation 16.3 % (11.5-14.5); RDW Standard Deviation 58.1 fL (36.4-46.3); Red Blood Count 2.81 M/uL (4.20-5.40); White Blood Count 11.25 K/ul (4.8-10.8)
[2022-08-22 06:32] LABS: BUN Creatinine Ratio 16.5 (10-20); Calcium 8.4 mg/dl (8.6-10.3); Creatinine Clr Calc Pharmacy 41.7 ml/min; Est GFR (African American) 51.6 ml/min; Est GFR (Non-African American) 44.6 ml/min; Potassium 3.9 mmol/L (3.5-5.1)
[2022-08-22] MEDS: INSULIN ASPART PER UNIT CHARGE SC SCH ×4 (08:32→20:52)
[2022-08-22] MEDS: LANTUS PER UNIT CHARGE SC SCH (08:32)
[2022-08-22] MEDS: lisinopril 20 MG TAB PO SCH (08:39)
[2022-08-22] MEDS: GABAPENTIN 300 MG CAP PO SCH (08:39)
[2022-08-22] MEDS: ASPIRIN 81 MG ECTAB PO SCH (08:39)
[2022-08-22] MEDS: METOPROLOL SUCC 50MG EXT REL TAB PO SCH ×2 (08:39→20:52)
[2022-08-22] MEDS: PANTOprazole 40 MG TAB PO SCH (08:39)
[2022-08-22] MEDS: TOPIRAMATE 50 MG TAB PO SCH ×2 (08:39→20:52)
[2022-08-22] MEDS: CETIRIZINE HCL 10 MG TABLET PO SCH (08:39)
[2022-08-22] MEDS: DULoxetine HCL 60 MG CAP PO SCH (08:39)
[2022-08-22] MEDS: ATORVASTATIN 40 MG TAB PO SCH (08:39)
[2022-08-22] MEDS: CLOPIDOGREL BISULFATE 75 MG TAB PO SCH (08:39)
--- NOTE | 2022-08-22 08:50 | Pharmacy Report ---
Pharmacy Glycemic Short Note 2 - Date of Service August 22, 2022 - Glycemic Short BSG Results (Last 24 hours): 08/21/22 08/21/22 08/21/22 10:58 16:19 19:55 Glucose POC Glucose 280 H 122 H 112 H 08/22/22 08/22/22 05:59 07:05 Glucose 132 H POC Glucose 144 H OUTPATIENT ANTIDIABETIC REGIMEN: * Basaglar 35 units SC qAM * Novolog SSI TIDM HbA1c: 11.2% (08/04/22) ASSESSMENT: 08/22/22: * BSGs well-controlled yesterday (except for elevated lunchtime BSG) * Received 52 units of insulin (35 units of basal and 17 units of prandial/correctional bolus) * Fasting BSG of 144 mg/dL this morning - will continue current basal this morning (possibly increase tomorrow) * Novolog parameters tightened yesterday, will continue for now 08/20/22: * 62 y/o F admitted for acute decompensated heart failure. She was recently admitted last month for Sepsis. Patient with history of uncontrolled diabetes managed on basal and bolus insulins at home. * On admission today, patient had elevated blood sugars above 300 mg/dl. Unclear when she took her last dose of basal insulin. * Provider ordered basal 35 units in the ED today AM which is her home dose and this was given. Plan to continue with this daily for now. * Novolog ordered based what worked for her during her past admission, this amounts to stress of 3 parameters. PLAN FOR INPATIENT GLYCEMIC CONTROL: * Basal insulin * Lantus 35 units SQ QAM * Bolus insulin * NovoLog per scale ACHS or Q6hrs while NPO * Goal Range: Low 110 mg/dL - High 140 mg/dL * Correction Factor: 30 mg/dL/unit * Nutritional / Prandial insulin per carb ratio of 1 unit per 7 grams CHO consumed
[2022-08-22] MEDS: ENOXAPARIN INJ 40 MG/0.4 ML SYR SQ SCH (11:10)
--- NOTE | 2022-08-22 12:00 | Hospitalist Progress Note ---
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 Recently admitted from 08/02-08/09 for sepsis in setting of Lyme disease, decompensated HF and GUY. Diureses well on 40mg IV lasix 1-2x daily and was discharged home with 1 week of doxycycline to complete for Lyme disease. Also saw psych service during previous admission and Cymbalta dose was decreased per their recommendation. Acute decompensated CHF Hypoxia Requiring 2-3 L O2 since arrival. Previously required oxygen last admission when volume overloaded but back to room air by time of discharge after IV lasix Chest x-ray personally reviewed; consistent with cardiomegaly with pulmonary edema with layering pleural effusion BNP 408 2D echo from August 03, 2022 with mildly reduced EF of 45 to 50%, mid posterior wall hypokinetic, moderate to severe mitral regurgitation, mild tricuspid regurgitation Continue on IV Lasix 40 mg twice daily Strict input and output Daily weights Lethargy Notably sleepy although wakens to answer questions appropriately. VBG with e/o mild resp acidosis. On CPAP at night; continue Elevated troponin HS troponin 29.4 -> 22.7, likely demand ischemia. EKG personally reviewed; normal sinus rhythm with LBBB Right common iliac artery stenosis Follows with vascular surgery Dr.James Ángel Guerrier Continue aspirin, statin, Plavix Recommended follow-up with vascular surgery as outpatient for monitoring (scheduled in Sep 2022) H/O CAD, S/P CABG x 4-H/O MV endocarditis/periaortic abscess; Severe MR- Continue aspirin, Plavix, lisinopril, metoprolol DM II-uncontrolled HbA1c:11.2 last month Basal bolus insulin per protocol while admitted Glycemic consult placed, would benefit from continued diabetic education BSG AC HS Chronic Tobacco abuse Encourage cessation, however, patient is not interested in quitting at this time Anxiety/Paranoia Continue Cymbalta, Zyprexa. Seen by psychiatry for medication adjustment on previous admission and Cymbalta decreased to 60mg daily History of prolonged qtc Avoid qtc prolonging agents as able, qtc 520 on EKG this morning DVT Ppx: SQ lovenox Code status: FULL PCP: MARY Simon Dispo: Admitted to PCU Please note the above document was generated using voice recognition software. It may contain grammatical, syntax or spelling errors. Any formal questions or concerns about the content, text or information contained within the body of this dictation should be directly addressed to the provider for clarification Admission and Anticipated Discharge Date Admission Date: August 20, 2022 Subjective Seen and examined at bedside. She is lying comfortably on the bed; not in distress. Reports that her breathing is better and reports her nausea is getting better as well. Review of Systems Review of Systems: All systems reviewed & are unremarkable except as noted in Subjective Physical Exam Physical Exam: Constitutional: Comfortable; not in distress. Respiratory: Occasional crackle at bases. Cardiovascular: RRR, no murmur, no edema Vessels: no JVD or carotid bruit Chest: normal inspection of chest Abdomen: normal bowel sounds, soft, nontender, no hepatosplenomegaly Musculoskeletal: no cyanosis or clubbing, extremities motor strength 5/5. Left below-knee amputation Skin: no rashes, warm and dry normal turgor Neurologic: Grossly intact. Psychiatric: A+Ox3, euthymic affect Results & Data Results & Data Vital Signs (Past 12 Hours) Vital Signs Temp Pulse Resp BP Pulse Ox O2 Del Method O2 Flow Rate 08/22/22 11:00 36.7 C 97 H 16 109/69 97 Nasal Cannula 2.5 08/22/22 09:55 Nasal Cannula 3 08/22/22 07:05 37.0 C 65 16 98/60 L 94 Nasal Cannula 2.5 08/22/22 02:53 36.6 C 73 18 125/73 97 Nasal Cannula Laboratory Results Laboratory Results WBC 11.25 K/ul (4.8-10.8) H 08/22/22 05:59 RBC 2.81 M/uL (4.20-5.40) L 08/22/22 05:59 Hgb 8.5 g/dl (12.0-16.0) L 08/22/22 05:59 Hct 27.7 % (37.0-47.0) L 08/22/22 05:59 MCV 98.6 fL (80.0-100.0) 08/22/22 05:59 MCH 30.2 pg (25.0-34.0) 08/22/22 05:59 MCHC 30.7 g/dL (32.0-36.0) L 08/22/22 05:59 RDW Std Deviation 58.1 fL (36.4-46.3) H 08/22/22 05:59 RDW Coeff of Fabio 16.3 % (11.5-14.5) H 08/22/22 05:59 Plt Count 209 K/uL (130-400) 08/22/22 05:59 MPV 11.1 fL (9.4-12.4) 08/22/22 05:59 Immature Gran % (Auto) 2.0 % 08/22/22 05:59 Neut % (Auto) 46.9 % 08/22/22 05:59 Lymph % (Auto) 22.9 % 08/22/22 05:59 [place] % (Auto) 26.4 % 08/22/22 05:59 Eos % (Auto) 1.4 % 08/22/22 05:59 Baso % (Auto) 0.4 % 08/22/22 05:59 Neut # (Auto) 5.27 K/uL (1.40-6.50) 08/22/22 05:59 Lymph # (Auto) 2.58 K/uL (1.2-3.4) 08/22/22 05:59 [place] # (Auto) 2.97 K/uL (0.11-0.59) H 08/22/22 05:59 Eos # (Auto) 0.16 K/uL (0-0.50) 08/22/22 05:59 Baso # (Auto) 0.04 K/uL (0-0.2) 08/22/22 05:59 Immature Gran # (Auto) 0.23 K/uL (0.01-0.20) H 08/22/22 05:59 Absolute Nucleated RBC 0.02 K/uL (0-0.12) 08/20/22 08:16 Nucleated RBC % (auto) 0.2 % 08/20/22 08:16 VBG pH 7.34 (7.36-7.41) L 08/20/22 08:17 VBG pCO2 51 mmHg (38-50) H 08/20/22 08:17 VBG pO2 24 mmHg 08/20/22 08:17 VBG HCO3 28 mmol/L 08/20/22 08:17 VBG O2 Saturation < 60.0 % 08/20/22 08:17 VBG Base Excess 1.3 mEq/L 08/20/22 08:17 Sodium 140 mmol/L (136-145) 08/22/22 05:59 Potassium 3.9 mmol/L (3.5-5.1) 08/22/22 05:59 Chloride 106 mmol/L (98-107) 08/22/22 05:59 Carbon Dioxide 29 mmol/L (21-32) 08/22/22 05:59 Anion Gap 5 (3-11) 08/22/22 05:59 BUN 21 mg/dl (6-23) 08/22/22 05:59 Creatinine 1.27 mg/dl (0.6-1.2) H 08/22/22 05:59 Est Cr Clr Drug Dosing 41.7 ml/min 08/22/22 05:59 Est GFR ( Amer) 51.6 ml/min 08/22/22 05:59 Est GFR (Non-Af Amer) 44.6 ml/min 08/22/22 05:59 BUN/Creatinine Ratio 16.5 (10-20) 08/22/22 05:59 Glucose 132 mg/dl (70-99(Fasting)) H 08/22/22 05:59 POC Glucose 162 mg/dl (70-99) H 08/22/22 11:00 Calcium 8.4 mg/dl (8.6-10.3) L 08/22/22 05:59 Total Bilirubin 0.6 mg/dl (0.2-1.0) 08/21/22 05:40 AST 18 U/L (13-39) 08/21/22 05:40 ALT 14 U/L (7-52) 08/21/22 05:40 Alkaline Phosphatase 61 U/L (34-104) 08/21/22 05:40 Troponin I High Sens 22.7 pg/ml (0-14) H 08/20/22 12:38 B-Natriuretic Peptide 408 pg/ml (0-100) H 08/20/22 08:16 Total Protein 5.9 gm/dl (6.0-8.3) L 08/21/22 05:40 Albumin 3.1 gm/dl (3.4-5.0) L 08/21/22 05:40 Globulin 2.8 gm/dl (2.5-4.0) 08/21/22 05:40 Albumin/Globulin Ratio 1.1 (0.9-2) 08/21/22 05:40 Lipase 26 U/L (11-82) 08/20/22 08:16 SARS-CoV-2, RNA, NAAT NEGATIVE (NEGATIVE) 08/20/22 09:29 Impressions Chest X-Ray 08/20/22 08:12 XR chest 1V portable HISTORY: 62 years-old Female Chest pain, nonspecific acute chest pain COMPARISON: 08/08/2022 TECHNIQUE: AP view of the chest FINDINGS: Cardiac silhouette is enlarged. Prior median sternotomy with CABG. Pulmonary vascular congestion with interstitial coarsening. No pneumothorax. Layering pleural effusions with bibasilar consolidation. Bones appear grossly intact. IMPRESSION: 1. Cardiomegaly with pulmonary edema. 2. Layering pleural effusions with bibasilar consolidation, likely atelectatic. ACT 112: Negative or not required by law. The above report was generated using voice recognition software. It may contain grammatical, syntax or spelling errors. Electronically signed by: Alexi Wu M.D. 08/20/2022 8:47 AM (4) Anemia Anemia type: unspecified type Qualified Code(s): D64.9 - Anemia, unspecified
[2022-08-22] MEDS: DONEPEZIL HCL 5 MG TAB PO SCH (20:50)
[2022-08-22] MEDS: GABAPENTIN 600 MG TAB PO SCH (20:51)
[2022-08-22] MEDS: MELATONIN 3 MG TAB PO SCH (20:53)
[2022-08-23 06:36] LABS: Basophils # (auto) 0.04 K/uL (0-0.2); Basophils % (auto) 0.4 %; Eosinophils # (auto) 0.15 K/uL (0-0.50); Eosinophils % (auto) 1.5 %; Hematocrit (blood only) 30.8 % (37.0-47.0); Hemoglobin 9.6 g/dl (12.0-16.0); Immature Granulocytes % (auto) 2.1 %; Lymphocytes # (auto) 2.16 K/uL (1.2-3.4); Lymphocytes % (auto) 22.3 %; Mean Corpuscular Hemoglobin 30.7 pg (25.0-34.0); Mean Corpuscular Hgb Conc 31.2 g/dL (32.0-36.0); Mean Corpuscular Volume 98.4 fL (80.0-100.0); Mean Platelet Volume 11.4 fL (9.4-12.4); Monocytes # (auto) 2.29 K/uL (0.11-0.59); Monocytes % (auto) 23.6 %; Neutrophils # (auto) 4.85 K/uL (1.40-6.50); Neutrophils % (auto) 50.1 %; Platelet Count 200 K/uL (130-400); RDW Coefficient of Variation 16.2 % (11.5-14.5); RDW Standard Deviation 57.6 fL (36.4-46.3); Red Blood Count 3.13 M/uL (4.20-5.40); White Blood Count 9.69 K/ul (4.8-10.8)
[2022-08-23 06:50] LABS: BUN Creatinine Ratio 20.6 (10-20); Creatinine Clr Calc Pharmacy 52.4 ml/min; Est GFR (African American) 67.3 ml/min; Est GFR (Non-African American) 58.1 ml/min; Potassium 4.1 mmol/L (3.5-5.1)
[2022-08-23] MEDS: INSULIN ASPART PER UNIT CHARGE SC SCH ×4 (08:10→20:36)
[2022-08-23] MEDS: LANTUS PER UNIT CHARGE SC SCH (08:10)
[2022-08-23] MEDS: TOPIRAMATE 50 MG TAB PO SCH ×2 (08:15→20:35)
[2022-08-23] MEDS: METOPROLOL SUCC 50MG EXT REL TAB PO SCH ×2 (08:15→20:35)
[2022-08-23] MEDS: PANTOprazole 40 MG TAB PO SCH (08:15)
[2022-08-23] MEDS: DULoxetine HCL 60 MG CAP PO SCH (08:16)
[2022-08-23] MEDS: ASPIRIN 81 MG ECTAB PO SCH (08:16)
[2022-08-23] MEDS: CLOPIDOGREL BISULFATE 75 MG TAB PO SCH (08:16)
[2022-08-23] MEDS: CETIRIZINE HCL 10 MG TABLET PO SCH (08:16)
[2022-08-23] MEDS: lisinopril 20 MG TAB PO SCH (08:16)
[2022-08-23] MEDS: ATORVASTATIN 40 MG TAB PO SCH (08:16)
[2022-08-23] MEDS: GABAPENTIN 300 MG CAP PO SCH ×2 (08:16→20:36)
--- NOTE | 2022-08-23 11:27 | XRay Report ---
XR chest 1V portable CLINICAL HISTORY: Follow up on pulmonary edema TECHNIQUE: Single frontal radiograph of the chest was obtained. Comparison: Comparison is made to chest radiograph 08/20/2022 FINDINGS: Exam is limited by underpenetration. Median sternotomy wires are unchanged. Cardiomegaly is noted. Th e lungs are clear. Small bilateral pleural effusions are seen. IMPRESSION: Small bilateral pleural effusions. Previously noted pulmonary edema has resolved. ACT 112: Negative or not required by law. Electronically signed by: Johny Ferrer M.D. 08/23/2022 11:25 AM
--- NOTE | 2022-08-23 11:38 | Hospitalist Progress Note ---
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 Recently admitted from 08/02-08/09 for sepsis in setting of Lyme disease, decompensated HF and GUY. Diureses well on 40mg IV lasix 1-2x daily and was discharged home with 1 week of doxycycline to complete for Lyme disease. Also saw psych service during previous admission and Cymbalta dose was decreased per their recommendation. Acute decompensated CHF Hypoxia Requiring 2-3 L O2 since arrival. Chest x-ray personally reviewed; consistent with cardiomegaly with pulmonary edema with layering pleural effusion Repeat chest x-ray done today; pulmonary edema resolved. Small bilateral pleural effusion present. BNP 408 2D echo from August 03, 2022 with mildly reduced EF of 45 to 50%, mid posterior wall hypokinetic, moderate to severe mitral regurgitation, mild tricuspid regurgitation Continue on IV Lasix 40 mg twice daily Strict input and output Daily weights Lethargy Appears to be lethargic. On multiple medication that can contribute to lethargy; Will decrease Zyprexa to 2.5 mg at bedtime from 7.5 mg, stop donepezil and decrease dose of gabapentin to 300 mg twice daily Continue to monitor Elevated troponin HS troponin 29.4 -> 22.7, likely demand ischemia. EKG personally reviewed; normal sinus rhythm with LBBB Right common iliac artery stenosis Follows with vascular surgery Dr.James Ángel Guerrier Continue aspirin, statin, Plavix Recommended follow-up with vascular surgery as outpatient for monitoring (scheduled in Sep 2022) H/O CAD, S/P CABG x 4-H/O MV endocarditis/periaortic abscess; Severe MR- Continue aspirin, Plavix, lisinopril, metoprolol DM II-uncontrolled HbA1c:11.2 last month Basal bolus insulin per protocol while admitted Glycemic consult placed, would benefit from continued diabetic education BSG AC HS Chronic Tobacco abuse Encourage cessation, however, patient is not interested in quitting at this time Anxiety/Paranoia Continue Cymbalta, Zyprexa. Seen by psychiatry for medication adjustment on previous admission and Cymbalta decreased to 60mg daily Zyprexa dose decreased due to lethargy. History of prolonged qtc Avoid qtc prolonging agents as able, qtc 520 on EKG this morning DVT Ppx: SQ lovenox Code status: FULL PCP: MARY Simon Dispo: Admitted to PCU Please note the above document was generated using voice recognition software. It may contain grammatical, syntax or spelling errors. Any formal questions or concerns about the content, text or information contained within the body of this dictation should be directly addressed to the provider for clarification Admission and Anticipated Discharge Date Admission Date: August 20, 2022 Subjective Patient seen and examined at bedside. She reports improvement in shortness of breath and nausea. Continues to report lethargy. Review of Systems Review of Systems: All systems reviewed & are unremarkable except as noted in Subjective Physical Exam Physical Exam: Constitutional: Comfortable; not in distress. Respiratory: Occasional crackle at bases. Cardiovascular: RRR, no murmur, no edema Vessels: no JVD or carotid bruit Chest: normal inspection of chest Abdomen: normal bowel sounds, soft, nontender, no hepatosplenomegaly Musculoskeletal: no cyanosis or clubbing, extremities motor strength 5/5. Left below-knee amputation Skin: no rashes, warm and dry normal turgor Neurologic: Grossly intact. Psychiatric: A+Ox3, euthymic affect Results & Data Results & Data Vital Signs (Past 12 Hours) Vital Signs Temp Pulse Pulse Resp BP Pulse Ox O2 Del Method 08/23/22 11:18 36.6 C 71 18 120/60 94 Nasal Cannula 08/23/22 09:00 73 08/23/22 07:27 36.5 C 70 20 144/76 H 95 Nasal Cannula 08/23/22 02:56 36.8 C 67 18 141/77 H 93 Nasal Cannula O2 Flow Rate 08/23/22 11:18 5 08/23/22 09:00 08/23/22 07:27 2.5 08/23/22 02:56 2.5 Laboratory Results Laboratory Results WBC 9.69 K/ul (4.8-10.8) 08/23/22 05:59 RBC 3.13 M/uL (4.20-5.40) L 08/23/22 05:59 Hgb 9.6 g/dl (12.0-16.0) L 08/23/22 05:59 Hct 30.8 % (37.0-47.0) L 08/23/22 05:59 MCV 98.4 fL (80.0-100.0) 08/23/22 05:59 MCH 30.7 pg (25.0-34.0) 08/23/22 05:59 MCHC 31.2 g/dL (32.0-36.0) L 08/23/22 05:59 RDW Std Deviation 57.6 fL (36.4-46.3) H 08/23/22 05:59 RDW Coeff of Fabio 16.2 % (11.5-14.5) H 08/23/22 05:59 Plt Count 200 K/uL (130-400) 08/23/22 05:59 MPV 11.4 fL (9.4-12.4) 08/23/22 05:59 Immature Gran % (Auto) 2.1 % 08/23/22 05:59 Neut % (Auto) 50.1 % 08/23/22 05:59 Lymph % (Auto) 22.3 % 08/23/22 05:59 [place] % (Auto) 23.6 % 08/23/22 05:59 Eos % (Auto) 1.5 % 08/23/22 05:59 Baso % (Auto) 0.4 % 08/23/22 05:59 Neut # (Auto) 4.85 K/uL (1.40-6.50) 08/23/22 05:59 Lymph # (Auto) 2.16 K/uL (1.2-3.4) 08/23/22 05:59 [place] # (Auto) 2.29 K/uL (0.11-0.59) H 08/23/22 05:59 Eos # (Auto) 0.15 K/uL (0-0.50) 08/23/22 05:59 Baso # (Auto) 0.04 K/uL (0-0.2) 08/23/22 05:59 Immature Gran # (Auto) 0.20 K/uL (0.01-0.20) 08/23/22 05:59 Absolute Nucleated RBC 0.02 K/uL (0-0.12) 08/20/22 08:16 Nucleated RBC % (auto) 0.2 % 08/20/22 08:16 VBG pH 7.34 (7.36-7.41) L 08/20/22 08:17 VBG pCO2 51 mmHg (38-50) H 08/20/22 08:17 VBG pO2 24 mmHg 08/20/22 08:17 VBG HCO3 28 mmol/L 08/20/22 08:17 VBG O2 Saturation < 60.0 % 08/20/22 08:17 VBG Base Excess 1.3 mEq/L 08/20/22 08:17 Sodium 140 mmol/L (136-145) 08/23/22 05:59 Potassium 4.1 mmol/L (3.5-5.1) 08/23/22 05:59 Chloride 108 mmol/L (98-107) H 08/23/22 05:59 Carbon Dioxide 27 mmol/L (21-32) 08/23/22 05:59 Anion Gap 5 (3-11) 08/23/22 05:59 BUN 21 mg/dl (6-23) 08/23/22 05:59 Creatinine 1.02 mg/dl (0.6-1.2) 08/23/22 05:59 Est Cr Clr Drug Dosing 52.4 ml/min 08/23/22 05:59 Est GFR ( Amer) 67.3 ml/min 08/23/22 05:59 Est GFR (Non-Af Amer) 58.1 ml/min 08/23/22 05:59 BUN/Creatinine Ratio 20.6 (10-20) H 08/23/22 05:59 Glucose 155 mg/dl (70-99(Fasting)) H 08/23/22 05:59 POC Glucose 205 mg/dl (70-99) H 08/23/22 11:08 Calcium 9.0 mg/dl (8.6-10.3) 08/23/22 05:59 Total Bilirubin 0.6 mg/dl (0.2-1.0) 08/21/22 05:40 AST 18 U/L (13-39) 08/21/22 05:40 ALT 14 U/L (7-52) 08/21/22 05:40 Alkaline Phosphatase 61 U/L (34-104) 08/21/22 05:40 Troponin I High Sens 22.7 pg/ml (0-14) H 08/20/22 12:38 B-Natriuretic Peptide 408 pg/ml (0-100) H 08/20/22 08:16 Total Protein 5.9 gm/dl (6.0-8.3) L 08/21/22 05:40 Albumin 3.1 gm/dl (3.4-5.0) L 08/21/22 05:40 Globulin 2.8 gm/dl (2.5-4.0) 08/21/22 05:40 Albumin/Globulin Ratio 1.1 (0.9-2) 08/21/22 05:40 Lipase 26 U/L (11-82) 08/20/22 08:16 SARS-CoV-2, RNA, NAAT NEGATIVE (NEGATIVE) 08/20/22 09:29 Impressions Chest X-Ray 08/23/22 10:49 XR chest 1V portable CLINICAL HISTORY: Follow up on pulmonary edema TECHNIQUE: Single frontal radiograph of the chest was obtained. Comparison: Comparison is made to chest radiograph 08/20/2022 FINDINGS: Exam is limited by underpenetration. Median sternotomy wires are unchanged. Cardiomegaly is noted. The lungs are clear. Small bilateral pleural effusions are seen. IMPRESSION: Small bilateral pleural effusions. Previously noted pulmonary edema has resolved. ACT 112: Negative or not required by law. Electronically signed by: Johny Ferrer M.D. 08/23/2022 11:25 AM (4) Anemia Anemia type: unspecified type Qualified Code(s): D64.9 - Anemia, unspecified
[2022-08-23] MEDS: ENOXAPARIN INJ 40 MG/0.4 ML SYR SQ SCH (11:51)
[2022-08-23] MEDS: FUROSEMIDE 40 MG/4 ML VIAL IV SCH (13:46)
[2022-08-23] MEDS: MELATONIN 3 MG TAB PO SCH (20:34)
[2022-08-23] MEDS: OLANZAPINE 2.5 MG TAB PO SCH (20:34)
[2022-08-24 07:14] LABS: Basophils # (auto) 0.03 K/uL (0-0.2); Basophils % (auto) 0.3 %; Eosinophils # (auto) 0.13 K/uL (0-0.50); Eosinophils % (auto) 1.3 %; Hematocrit (blood only) 28.3 % (37.0-47.0); Hemoglobin 8.9 g/dl (12.0-16.0); Immature Granulocytes # (auto) 0.25 K/uL (0.01-0.20); Immature Granulocytes % (auto) 2.5 %; Lymphocytes # (auto) 1.96 K/uL (1.2-3.4); Lymphocytes % (auto) 19.6 %; Mean Corpuscular Hemoglobin 30.9 pg (25.0-34.0); Mean Corpuscular Hgb Conc 31.4 g/dL (32.0-36.0); Mean Corpuscular Volume 98.3 fL (80.0-100.0); Mean Platelet Volume 11.2 fL (9.4-12.4); Monocytes # (auto) 2.52 K/uL (0.11-0.59); Monocytes % (auto) 25.2 %; Neutrophils # (auto) 5.11 K/uL (1.40-6.50); Neutrophils % (auto) 51.1 %; Platelet Count 193 K/uL (130-400); RDW Coefficient of Variation 15.7 % (11.5-14.5); RDW Standard Deviation 55.9 fL (36.4-46.3); Red Blood Count 2.88 M/uL (4.20-5.40)
[2022-08-24 07:39] LABS: Albumin Globulin Ratio 1.2 (0.9-2); Albumin Level 3.4 gm/dl (3.4-5.0); Bilirubin,Total 0.4 mg/dl (0.2-1.0); Calcium 8.9 mg/dl (8.6-10.3); Creatinine Clr Calc Pharmacy 46.7 ml/min; Est GFR (African American) 58.2 ml/min; Est GFR (Non-African American) 50.2 ml/min; Globulin 2.8 gm/dl (2.5-4.0); Potassium 3.8 mmol/L (3.5-5.1); Total Protein 6.2 gm/dl (6.0-8.3)
[2022-08-24] MEDS: GABAPENTIN 300 MG CAP PO SCH ×2 (08:14→20:54)
[2022-08-24] MEDS: CLOPIDOGREL BISULFATE 75 MG TAB PO SCH (08:14)
[2022-08-24] MEDS: PANTOprazole 40 MG TAB PO SCH (08:14)
[2022-08-24] MEDS: ASPIRIN 81 MG ECTAB PO SCH (08:14)
[2022-08-24] MEDS: METOPROLOL SUCC 50MG EXT REL TAB PO SCH ×2 (08:15→20:54)
[2022-08-24] MEDS: ATORVASTATIN 40 MG TAB PO SCH (08:15)
[2022-08-24] MEDS: DULoxetine HCL 60 MG CAP PO SCH (08:15)
[2022-08-24] MEDS: CETIRIZINE HCL 10 MG TABLET PO SCH (08:15)
[2022-08-24] MEDS: lisinopril 20 MG TAB PO SCH (08:15)
[2022-08-24] MEDS: TOPIRAMATE 50 MG TAB PO SCH ×2 (08:15→20:53)
[2022-08-24] MEDS: INSULIN ASPART PER UNIT CHARGE SC SCH ×4 (08:16→21:16)
[2022-08-24] MEDS: LANTUS PER UNIT CHARGE SC SCH (08:16)
--- NOTE | 2022-08-24 11:40 | Pharmacy Report ---
Pharmacy Glycemic Short Note 2 - Date of Service August 24, 2022 - Glycemic Short BSG Results (Last 24 hours): 08/23/22 08/23/22 08/24/22 16:22 20:22 06:40 Glucose 229 H POC Glucose 216 H 135 H 08/24/22 08/24/22 07:25 11:24 Glucose POC Glucose 236 H 300 H OUTPATIENT ANTIDIABETIC REGIMEN: * Basaglar 35 units SC qAM * Novolog SSI TIDM HbA1c: 11.2% (08/04/22) ASSESSMENT: 08/24/22: * Patient received total of 72 units of insulin yesterday, of which 40 units were basal * Fasting BSG elevated at 229 mg/dL - plan to increase to 45 units of basal today (~30% increase from home dose) * BSGs trending up at lunch time, plan to tighten CF/CR 08/22/22: * BSGs well-controlled yesterday (except for elevated lunchtime BSG) * Received 52 units of insulin (35 units of basal and 17 units of prandial/co rrectional bolus) * Fasting BSG of 144 mg/dL this morning - will continue current basal this morning (possibly increase tomorrow) * Novolog parameters tightened yesterday, will continue for now 08/20/22: * 62 y/o F admitted for acute decompensated heart failure. She was recently admitted last month for Sepsis. Patient with history of uncontrolled diabetes managed on basal and bolus insulins at home. * On admission today, patient had elevated blood sugars above 300 mg/dl. Unclear when she took her last dose of basal insulin. * Provider ordered basal 35 units in the ED today AM which is her home dose and this was given. Plan to continue with this daily for now. * Novolog ordered based what worked for her during her past admission, this amounts to stress of 3 parameters. PLAN FOR INPATIENT GLYCEMIC CONTROL: * Basal insulin * Lantus 45 units daily * Bolus insulin * NovoLog per scale ACHS or Q6hrs while NPO * Goal Range: Low 110 mg/dL - High 140 mg/dL * Correction Factor: 15 mg/dL/unit * Nutritional / Prandial insulin per carb ratio of 1 unit per 6 grams CHO consumed
[2022-08-24] MEDS: ENOXAPARIN INJ 40 MG/0.4 ML SYR SQ SCH (11:53)
[2022-08-24] MEDS ORDERED: LANTUS PER UNIT CHARGE SC ONE (12:00)
[2022-08-24] MEDS: FUROSEMIDE 40 MG/4 ML VIAL IV SCH (13:31)
--- NOTE | 2022-08-24 16:44 | Hospitalist Progress Note ---
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 Recently admitted from 08/02-08/09 for sepsis in setting of Lyme disease, decompensated HF and GUY. Diureses well on 40mg IV lasix 1-2x daily and was discharged home with 1 week of doxycycline to complete for Lyme disease. Also saw psych service during previous admission and Cymbalta dose was decreased per their recommendation. Acute decompensated CHF Chronic respiratory failure with hypoxia Patient has been not following with cardiology due to insurance issues (as per family) Requiring 2-3 L O2 to maintain saturation Chest x-ray personally reviewed; consistent with cardiomegaly with pulmonary edema with layering pleural effusion Repeat chest x-ray: pulmonary edema resolved. Small bilateral pleural effusion present. BNP 408 2D echo from August 03, 2022 with mildly reduced EF of 45 to 50%, mid posterior wall hypokinetic, moderate to severe mitral regurgitation, mild tricuspid regurgitation Continue on IV Lasix 40 mg twice daily Monitor input and output Daily weights Transition to p.o. diuretics tomorrow Needs follow-up with cardiology upon discharge Lethargy Likely due to medications Will decrease Zyprexa to 2.5 mg at bedtime from 7.5 mg, stop donepezil and de crease dose of gabapentin to 300 mg twice daily Increase melatonin to 3 mg at bedtime Continue to monitor Elevated troponin HS troponin 29.4 -> 22.7, likely demand ischemia. EKG: normal sinus rhythm with LBBB Denies any chest pain Right common iliac artery stenosis Follows with vascular surgery Dr.James Ángel Guerrier Continue aspirin, statin, Plavix Recommended follow-up with vascular surgery as outpatient for monitoring (scheduled in Sep 2022) H/O CAD, S/P CABG x 4-H/O MV endocarditis/periaortic abscess; Severe MR- Continue aspirin, Plavix, lisinopril, metoprolol DM II-uncontrolled HbA1c:11.2 last month Noncompliant with medications, food as per family Continue insulin while hospitalized Glycemic consult placed, would benefit from continued diabetic education BSG AC HS Chronic Tobacco abuse Encourage cessation, however, patient is not interested in quitting at this time Anxiety/Paranoia Continue Cymbalta, Zyprexa. Seen by psychiatry for medication adjustment on previous admission and Cymbalta decreased to 60mg daily Zyprexa, Melatonin dose decreased due to lethargy. History of prolonged qtc Monitor QTc DVT Px: SQ Lovenox Code status: FULL CODE Admission and Anticipated Discharge Date Admission Date: August 20, 2022 Subjective Patient seen and examined at bedside. Offers no new complaints Discussed with patient's daughter over the phone Patient denies chest pain, dyspnea, dizziness, nausea, vomiting, abdominal pain Sleepy/Lethargic during my encounter Review of Systems Review of Systems: All systems reviewed & are unremarkable except as noted in Subjective Physical Exam Physical Exam: Physical Exam: Vitals signs as noted above General Appearance:Moderately built and nourished, no apparent distress Head: normocephalic, Atraumatic Eyes: normal inspection, EOMI Neck: supple, Trachea midline Respiratory/Chest: Decreased breath sounds, CTA, No accessory muscle use Cardiovascular: S1, S2, No murmur Abdomen/GI:Soft, Non tender, Bowel sounds present Extremities/Musculoskeletal:normal inspection, no edema, L BKA Neurologic/Psych:AAO, grossly no focal neurological deficits, Sleepy Skin: normal color, warm Results & Data Results & Data Vital Signs (Past 12 Hours) Vital Signs Temp Pulse Pulse Pulse Resp BP Pulse Ox 08/24/22 15:30 77 08/24/22 15:24 37.0 C 72 20 127/74 99 08/24/22 11:26 36.8 C 67 18 130/71 96 08/24/22 09:02 74 08/24/22 09:02 08/24/22 08:00 36.8 C 78 74 18 108/73 97 O2 Del Method O2 Flow Rate 08/24/22 15:30 08/24/22 15:24 Nasal Cannula 2.5 08/24/22 11:26 Nasal Cannula 2 08/24/22 09:02 08/24/22 09:02 Nasal Cannula 2 08/24/22 08:00 Room Air Laboratory Results Short CBC 08/24/22 Range/Units 06:40 WBC 10.00 (4.8-10.8) K/ul Hgb 8.9 L (12.0-16.0) g/dl Hct 28.3 L (37.0-47.0) % Plt Count 193 (130-400) K/uL BMP 08/24/22 06:40 Sodium 139 Potassium 3.8 Chloride 106 Carbon Dioxide 28 BUN 23 Creatinine 1.15 Glucose 229 H Calcium 8.9 Liver Function 08/24/22 Range/Units 06:40 Total Bilirubin 0.4 (0.2-1.0) mg/dl AST 14 (13-39) U/L ALT 10 (7-52) U/L Alkaline Phosphatase 57 (34-104) U/L Albumin 3.4 (3.4-5.0) gm/dl (4) Anemia Anemia type: unspecified type Qualified Code(s): D64.9 - Anemia, unspecified
[2022-08-24] MEDS: MELATONIN 3 MG TAB PO SCH (20:54)
[2022-08-24] MEDS: OLANZAPINE 2.5 MG TAB PO SCH (20:54)
[2022-08-25 07:49] LABS: BUN Creatinine Ratio 24.5 (10-20); Calcium 8.9 mg/dl (8.6-10.3); Creatinine Clr Calc Pharmacy 54.8 ml/min; Est GFR (African American) 70.7 ml/min; Potassium 3.8 mmol/L (3.5-5.1)
[2022-08-25] MEDS: INSULIN ASPART PER UNIT CHARGE SC SCH ×4 (08:10→21:36)
[2022-08-25] MEDS: METOPROLOL SUCC 50MG EXT REL TAB PO SCH ×2 (08:12→19:47)
[2022-08-25] MEDS: ASPIRIN 81 MG ECTAB PO SCH (08:12)
[2022-08-25] MEDS: lisinopril 20 MG TAB PO SCH (08:12)
[2022-08-25] MEDS: DULoxetine HCL 60 MG CAP PO SCH (08:12)
[2022-08-25] MEDS: TOPIRAMATE 50 MG TAB PO SCH ×2 (08:12→19:47)
[2022-08-25] MEDS: GABAPENTIN 300 MG CAP PO SCH ×2 (08:12→19:46)
[2022-08-25] MEDS: CLOPIDOGREL BISULFATE 75 MG TAB PO SCH (08:12)
[2022-08-25] MEDS: CETIRIZINE HCL 10 MG TABLET PO SCH (08:13)
[2022-08-25] MEDS: PANTOprazole 40 MG TAB PO SCH (08:13)
[2022-08-25] MEDS: ATORVASTATIN 40 MG TAB PO SCH (08:14)
[2022-08-25] MEDS ORDERED: LANTUS PER UNIT CHARGE SC SCH ×2 (09:00)
[2022-08-25] MEDS: FUROSEMIDE 40 MG TAB PO SCH (10:29)
[2022-08-25] MEDS: ENOXAPARIN INJ 40 MG/0.4 ML SYR SQ SCH (11:48)
--- NOTE | 2022-08-25 12:39 | Pharmacy Report ---
Pharmacy Glycemic Short Note 2 - Date of Service August 25, 2022 - Glycemic Short BSG Results (Last 24 hours): 08/24/22 08/24/22 08/25/22 16:33 20:31 07:10 Glucose 190 H POC Glucose 225 H 170 H 08/25/22 08/25/22 08/25/22 07:15 11:24 11:25 Glucose POC Glucose 202 H 340 H* 375 H* OUTPATIENT ANTIDIABETIC REGIMEN: * Basaglar 35 units SC qAM * Novolog SSI TIDM HbA1c: 11.2% (08/04/22) ASSESSMENT: 08/25/22: * Patient received a total 88 units of insulin- 45 units of basal * Fasting elevated again today- increase to 55 units ~20% increase from yesterdays dose * Lunch BSG elevated at lunch- tightened carb ratio 08/24/22: * Patient received total of 72 units of insulin yesterday, of which 40 units were basal * Fasting BSG elevated at 229 mg/dL - plan to increase to 45 units of basal today (~30% increase from home dose) * BSGs trending up at lunch time, plan to tighten CF/CR 08/22/22: * BSGs well-controlled yesterday (except for elevated lunchtime BSG) * Received 52 units of insulin (35 units of basal and 17 units of prandial/correctional bolus) * Fasting BSG of 144 mg/dL this morning - will continue current basal this morning (possibly increase tomorrow) * Novolog parameters tightened yesterday, will continue for now 08/20/22: * 62 y/o F admitted for acute decompensated heart failure. She was recently admitted last month for Sepsis. Patient with history of uncontrolled diabetes managed on basal and bolus insulins at home. * On admission today, patient had elevated blood sugars above 300 mg/dl. Unclear when she took her last dose of basal insulin. * Provider ordered basal 35 units in the ED today AM which is her home dose and this was given. Plan to continue with this daily for now. * Novolog ordered based what worked for her during her past admission, this amounts to stress of 3 parameters. PLAN FOR INPATIENT GLYCEMIC CONTROL: * Basal insulin * Lantus 55 units daily * Bolus insulin * NovoLog per scale ACHS or Q6hrs while NPO * Goal Range: Low 110 mg/dL - High 140 mg/dL * Correction Factor: 15 mg/dL/unit * Nutritional / Prandial insulin per carb ratio of 1 unit per 5 grams CHO consumed
--- NOTE | 2022-08-25 13:53 | Hospitalist Progress Note ---
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 Recently admitted from 08/02-08/09 for sepsis in setting of Lyme disease, decompensated HF and GUY. Diureses well on 40mg IV lasix 1-2x daily and was discharged home with 1 week of doxycycline to complete for Lyme disease. Also saw psych service during previous admission and Cymbalta dose was decreased per their recommendation. Acute decompensated CHF Chronic respiratory failure with hypoxia Patient has been not following with cardiology due to insurance issues (as per family) Requiring 2-3 L O2 to maintain saturation Chest x-ray personally reviewed; consistent with cardiomegaly with pulmonary edema with layering pleural effusion Repeat chest x-ray: pulmonary edema resolved. Small bilateral pleural effusion present. BNP 408 2D echo from August 03, 2022 with mildly reduced EF of 45 to 50%, mid posterior wall hypokinetic, moderate to severe mitral regurgitation, mild tricuspid regurgitation Received IV Lasix 40 mg twice daily Monitor input and output Daily weights Transition to p.o. diuretics today Needs follow-up with cardiology upon discharge Lethargy Likely due to medications Will decrease Zyprexa to 2.5 mg at bedtime from 7.5 mg, stop donepezil and decrease dose of gabapentin to 300 mg twice daily Decrease melatonin to 3 mg at bedtime Mental status better today Reorient frequently to minimize delirium Elevated troponin HS troponin 29.4 -> 22.7, likely demand ischemia. EKG: normal sinus rhythm with LBBB Denies any chest pain Right common iliac artery stenosis Follows with vascular surgery Dr.James Ángel Guerrier Continue aspirin, statin, Plavix Recommended follow-up with vascular surgery as outpatient for monitoring (scheduled in Sep 2022) H/O CAD, S/P CABG x 4-H/O MV endocarditis/periaortic abscess; Severe MR- Continue aspirin, Plavix, lisinopril, metoprolol DM II-uncontrolled HbA1c:11.2 last month Noncompliant with medications, food as per family Continue insulin while hospitalized Appreciate glycemic pharmacist help BSG AC HS medical educator consulted Blood glucose levels high today Will need adjustment of insulin upon discharge Chronic Tobacco abuse Encourage cessation, however, patient is not interested in quitting at this time Nicotine patch Anxiety/Paranoia Continue Cymbalta, Zyprexa. Seen by psychiatry for medication adjustment on previous admission and Cymbalta decreased to 60mg daily Zyprexa, Melatonin dose decreased due to lethargy. History of prolonged qtc Monitor QTc DVT Px: SQ Lovenox Code status: FULL CODE Disposition Home with home health as able Admission and Anticipated Discharge Date Admission Date: August 20, 2022 Subjective Patient seen and examined at bedside. More alert, awake today Offers no new complaints Patient denies chest pain, dyspnea, dizziness, nausea, vomiting, abdominal pain Blood glucose levels uncontrolled today Review of Systems Review of Systems: All systems reviewed & are unremarkable except as noted in Subjective Physical Exam Physical Exam: Physical Exam: Vitals signs as noted above General Appearance:Moderately built and nourished, no apparent distress Head: normocephalic, Atraumatic Eyes: normal inspection, EOMI Neck: supple, Trachea midline Respiratory/Chest: Decreased breath sounds, CTA, No accessory muscle use Cardiovascular: S1, S2, No murmur Abdomen/GI:Soft, Non tender, Bowel sounds present Extremities/Musculoskeletal:normal inspection, no edema, L BKA Neurologic/Psych:AAO, grossly no focal neurological deficits, Sleepy Skin: normal color, warm Results & Data Results & Data Vital Signs (Past 12 Hours) Vital Signs Temp Pulse Pulse Resp BP Pulse Ox O2 Del Method 08/25/22 12:31 36.8 C 77 18 141/85 H 97 Nasal Cannula 08/25/22 09:25 70 08/25/22 08:00 37.0 C 73 18 150/95 H 95 Nasal Cannula 08/25/22 03:00 36.7 C 63 17 123/68 95 Nasal Cannula O2 Flow Rate 08/25/22 12:31 2 08/25/22 09:25 08/25/22 08:00 2 08/25/22 03:00 2.5 Laboratory Results BMP 08/25/22 07:10 Sodium 140 Potassium 3.8 Chloride 108 H Carbon Dioxide 26 BUN 24 H Creatinine 0.98 Glucose 190 H Calcium 8.9 (4) Anemia Anemia type: unspecified type Qualified Code(s): D64.9 - Anemia, unspecified
[2022-08-25] MEDS: NICOTINE 14 MG/24 HR PATCH TD SCH (14:32)
[2022-08-25] MEDS: OLANZAPINE 2.5 MG TAB PO SCH (19:46)
[2022-08-25] MEDS: MELATONIN 3 MG TAB PO SCH (19:46)
[2022-08-25] MEDS: ACETAMINOPHEN 325 MG TAB PO PRN (22:15)
[2022-08-26 06:53] LABS: Hematocrit (blood only) 26.2 % (37.0-47.0); Hemoglobin 8.3 g/dl (12.0-16.0); Mean Corpuscular Hemoglobin 30.7 pg (25.0-34.0); Mean Corpuscular Hgb Conc 31.7 g/dL (32.0-36.0); Mean Platelet Volume 11.2 fL (9.4-12.4); Platelet Count 193 K/uL (130-400); RDW Coefficient of Variation 15.5 % (11.5-14.5); RDW Standard Deviation 54.6 fL (36.4-46.3); White Blood Count 12.08 K/ul (4.8-10.8)
[2022-08-26 07:05] LABS: BUN Creatinine Ratio 26.2 (10-20); Calcium 8.3 mg/dl (8.6-10.3); Creatinine Clr Calc Pharmacy 50.1 ml/min; Est GFR (African American) 63.5 ml/min; Est GFR (Non-African American) 54.8 ml/min; Potassium 3.8 mmol/L (3.5-5.1)
[2022-08-26] MEDS: INSULIN ASPART PER UNIT CHARGE SC SCH ×2 (08:13→11:42)
[2022-08-26] MEDS: ATORVASTATIN 40 MG TAB PO SCH (08:16)
[2022-08-26] MEDS: CLOPIDOGREL BISULFATE 75 MG TAB PO SCH (08:16)
[2022-08-26] MEDS: METOPROLOL SUCC 50MG EXT REL TAB PO SCH (08:16)
[2022-08-26] MEDS: TOPIRAMATE 50 MG TAB PO SCH (08:16)
[2022-08-26] MEDS: GABAPENTIN 300 MG CAP PO SCH (08:16)
[2022-08-26] MEDS: PANTOprazole 40 MG TAB PO SCH (08:16)
[2022-08-26] MEDS: lisinopril 20 MG TAB PO SCH (08:17)
[2022-08-26] MEDS: ASPIRIN 81 MG ECTAB PO SCH (08:17)
[2022-08-26] MEDS: CETIRIZINE HCL 10 MG TABLET PO SCH (08:17)
[2022-08-26] MEDS: DULoxetine HCL 60 MG CAP PO SCH (08:18)
[2022-08-26] MEDS: FUROSEMIDE 40 MG TAB PO SCH (08:18)
[2022-08-26] MEDS: NICOTINE 14 MG/24 HR PATCH TD SCH (08:18)
[2022-08-26] MEDS ORDERED: LANTUS PER UNIT CHARGE SC SCH (09:00)
--- NOTE | 2022-08-26 09:12 | Pharmacy Report ---
Pharmacy Glycemic Short Note 2 - Date of Service August 26, 2022 - Glycemic Short BSG Results (Last 24 hours): 08/25/22 08/25/22 08/25/22 11:24 11:25 16:26 Glucose POC Glucose 340 H* 375 H* 128 H 08/25/22 08/26/22 08/26/22 19:41 06:21 07:26 Glucose 208 H POC Glucose 161 H 89 OUTPATIENT ANTIDIABETIC REGIMEN: * Basaglar 35 units SC qAM * Novolog SSI TIDM HbA1c: 11.2% (08/04/22) ASSESSMENT: 08/26/22: * Patient received total fo 107 units of insulin yesterday, of which 55 units were basal insulin * Fasting BSG 89 mg/dL much improved - plan to scale back on basal insulin, decrease to 45 units this AM * Plan to tighten CF/CR with breakfast and have looser parameters for the rest of the day 08/25/22: * Patient received a total 88 units of insulin- 45 units of basal * Fasting elevated again today- increase to 55 units ~20% increase from yesterdays dose * Lunch BSG elevated at lunch- tightened carb ratio 08/24/22: * Patient received total of 72 units of insulin yesterday, of which 40 units were basal * Fasting BSG elevated at 229 mg/dL - plan to increase to 45 units of basal today (~30% increase from home dose) * BSGs trending up at lunch time, plan to tighten CF/CR 08/22/22: * BSGs well-controlled yesterday (except for elevated lunchtime BSG) * Received 52 units of insulin (35 units of basal and 17 units of prandial/correctional bolus) * Fasting BSG of 144 mg/dL this morning - will continue current basal this morning (possibly increase tomorrow) * Novolog parameters tightened yesterday, will continue for now 08/20/22: * 62 y/o F admitted for acute decompensated heart failure. She was recently admitted last month for Sepsis. Patient with history of uncontrolled diabetes managed on basal and bolus insulins at home. * On admission today, patient had elevated blood sugars above 300 mg/dl. Unclear when she took her last dose of basal insulin. * Provider ordered basal 35 units in the ED today AM which is her home dose and this was given. Plan to continue with this daily for now. * Novolog ordered based what worked for her during her past admission, this amounts to stress of 3 parameters. PLAN FOR INPATIENT GLYCEMIC CONTROL: * Basal insulin * Lantus 45 units daily * Bolus insulin * NovoLog per scale ACHS or Q6hrs while NPO * Goal Range: Low 110 mg/dL - High 140 mg/dL * Correction Factor: 12 mg/dL/unit - with breakfast ; CF 15 rest of day * Nutritional / Prandial insulin per carb ratio of 1 unit per 4 grams CHO consumed - with breakfast ; CR of 6 rest of day
[2022-08-26] MEDS: ENOXAPARIN INJ 40 MG/0.4 ML SYR SQ SCH (11:42)
--- NOTE | 2022-08-26 13:29 | Hospitalist Progress Note ---
Date of Service August 26, 2022 Assessment & Plan (1) Acute decompensated heart failure: (2) Mitral regurgitation: (3) Hypoxia: (4) Anemia: (5) Dyslipidemia: (6) Diabetes mellitus, type 2: (7) Coronary artery disease: (8) HTN (hypertension): (9) Psychotic disorder: (10) Tobacco use disorder: Plan Patient is a 62 yr female with H/O CAD s/p CABG x4, history of ischemic cardiomyopathy, moderate to severe MR, chronic HFpEF, HTN, history of LBBB, HLD, insulin-dependent T2DM, chronic tobacco abuse, left lower extremity BKA due to osteomyelitis, history of mitral valve endocarditis and periaortic abscess, chronic normocytic anemia who presents to ED with acute decompensated heart failure. Recently admitted from 08/02-08/09 for sepsis in setting of Lyme disease, decompensated HF and GUY. Diureses well on 40mg IV lasix 1-2x daily and was discharged home with 1 week of doxycycline to complete for Lyme disease. Also saw psych service during previous admission and Cymbalta dose was decreased per their recommendation. Acute decompensated CHF Chronic respiratory failure with hypoxia Patient has been not following with cardiology due to insurance issues (as per family) Requiring 2-3 L O2 to maintain saturation Chest x-ray personally reviewed; consistent with cardiomegaly with pulmonary edema with layering pleural effusion Repeat chest x-ray: pulmonary edema resolved. Small bilateral pleural effusion present. BNP 408 2D echo from August 03, 2022 with mildly reduced EF of 45 to 50%, mid posterior wall hypokinetic, moderate to severe mitral regurgitation, mild tricuspid regurgitation Received IV Lasix 40 mg twice daily>> transition to Lasix 60 mg daily Monitor input and output Daily weights Volume status much improved Needs follow-up with cardiology upon discharge Lethargy Likely due to medications Will decrease Zyprexa to 2.5 mg at bedtime from 7.5 mg, stop donepezil and decrease dose of gabapentin to 300 mg twice daily Decrease melatonin to 3 mg at bedtime Reorient frequently to minimize delirium Mental status seem to be back to baseline Elevated troponin HS troponin 29.4 -> 22.7, likely demand ischemia. EKG: normal sinus rhythm with LBBB Denies any chest pain Right common iliac artery stenosis Follows with vascular surgery Dr.James Ángel [place] Continue aspirin, statin, Plavix Recommended follow-up with vascular surgery as outpatient for monitoring (scheduled in Sep 2022) H/O CAD, S/P CABG x 4-H/O MV endocarditis/periaortic abscess; Severe MR- Continue aspirin, Plavix, lisinopril, metoprolol DM II-uncontrolled HbA1c:11.2 last month Noncompliant with medications, food as per family Continue insulin while hospitalized Appreciate glycemic pharmacist help BSG AC HS lining stamper consulted Blood glucose levels high today Advised to follow-up with PCP for further adjustment of insulin as needed Chronic Tobacco abuse Encourage cessation, however, patient is not interested in quitting at this time Nicotine patch Anxiety/Paranoia Continue Cymbalta, Zyprexa. Seen by psychiatry for medication adjustment on previous admission and Cymbalta decreased to 60mg daily Zyprexa, Melatonin dose decreased due to lethargy. History of prolonged qtc Monitor QTc DVT Px: SQ Lovenox Code status: FULL CODE Disposition Home with home health Admission and Anticipated Discharge Date Admission Date: August 20, 2022 Subjective Patient seen and examined at bedside. States feeling well today No new complaints Patient denies chest pain, dyspnea, dizziness, nausea, vomiting, abdominal pain Plan to discharge home today Review of Systems Review of Systems: All systems reviewed & are unremarkable except as noted in Subjective Physical Exam Physical Exam: Physical Exam: Vitals signs as noted above General Appearance:Moderately built and nourished, no apparent distress Head: normocephalic, Atraumatic Eyes: normal inspection, EOMI Neck: supple, Trachea midline Respiratory/Chest: Decreased breath sounds, CTA, No accessory muscle use Cardiovascular: S1, S2, No murmur Abdomen/GI:Soft, Non tender, Bowel sounds present Extremities/Musculoskeletal:normal inspection, no edema, L BKA Neurologic/Psych:AAO, grossly no focal neurological deficits, Sleepy Skin: normal color, warm Results & Data Results & Data Vital Signs (Past 12 Hours) Vital Signs Temp Pulse Pulse Resp BP Pulse Ox O2 Del Method 08/26/22 07:59 71 08/26/22 07:59 Room Air 08/26/22 07:24 36.8 C 74 18 118/62 97 Nasal Cannula 08/26/22 03:42 36.5 C 71 18 120/69 98 Nasal Cannula O2 Flow Rate 08/26/22 07:59 08/26/22 07:59 08/26/22 07:24 3 07/14/23 03:42 3 Laboratory Results Short CBC 08/26/22 Range/Units 06:21 WBC 12.08 H (4.8-10.8) K/ul Hgb 8.3 L (12.0-16.0) g/dl Hct 26.2 L (37.0-47.0) % Plt Count 193 (130-400) K/uL BMP 08/26/22 06:21 Sodium 140 Potassium 3.8 Chloride 107 Carbon Dioxide 28 BUN 28 H Creatinine 1.07 Glucose 208 H Calcium 8.3 L (4) Anemia Anemia type: unspecified type Qualified Code(s): D64.9 - Anemia, unspecified
--- NOTE | 2022-08-26 13:40 | Discharge Summary ---
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 Was recently admitted from 08/02-08/09 for sepsis in setting of Lyme disease, decompensated HF and GUY. Diureses well on 40mg IV lasix 1-2x daily and was discharged home with 1 week of doxycycline to complete for Lyme disease. Also saw psych service during previous admission and Cymbalta dose was decreased per their recommendation. Since discharge home, patient has felt well until a few days ago when she started to feel like she was retaining fluid again. Endorsing 5-10 lb weight gain. Endorses progressive SOB. Denies missing any lasix doses and is taking medications as scheduled. Only took novolog before presenting this morning. Feels nauseated and woke up feeling this way. Denies any vomiting or abdonimal pain. No F/C, lightheadedness, CP, dysuria, diarrhea or constipation. Admission Exam Per Admitting Provider General Appearance:WD/WN, vitals as above, NAD, sitting up in bed, lethargic but awakens to answer simple questions, follows commands Head: normocephalic, atraumatic Eyes:normal inspection, PERRL, conjunctivae normal, anicteric sclerae ENT: external ear and nose normal, oropharynx normal Neck: normal visual inspection, trachea midline, no thyromegaly Respiratory:normal respiratory effort, bibasilar rales, no wheeze or rhonchi. No accessory muscle use Cardiovascular: tachycardic rate, regular rhythm, no murmur, normal peripheral pulses Abdomen/GI: normal bowel sounds, soft but mild diffuse ttp, no hepatosplenomegaly Extremities/Musculoskeletal:+ L BKA, RLE no edema no cyanosis or clubbing, extremities motor strength 5/5 Neurologic: PERRL, EOMI, accommodation nl, no face palsy, no dysarthria, CN's II-XI intact bilaterally and moves all extremities Psychiatric:A+Ox3 but slgihtly lethargic Skin: no rashes, normal color, warm/dry Principal Diagnosis Acute decompensated CHF Chronic respiratory failure with hypoxia Discharge Data Allergies Allergy/AdvReac Type Severity Reaction Status Date / Time latex Allergy Intermediate Rash Verified 04/28/22 13:20 aspirin Allergy Unknown UNKNOWN Verified 04/28/22 13:20 Consultations 08/20/22 09:26 ED Decision to Admit Stat Procedures Performed Laboratory Results WBC 12.08 K/ul (4.8-10.8) H 08/26/22 06:21 RBC 2.70 M/uL (4.20-5.40) L 08/26/22 06:21 Hgb 8.3 g/dl (12.0-16.0) L 08/26/22 06:21 Hct 26.2 % (37.0-47.0) L 08/26/22 06:21 MCV 97.0 fL (80.0-100.0) 08/26/22 06:21 MCH 30.7 pg (25.0-34.0) 08/26/22 06:21 MCHC 31.7 g/dL (32.0-36.0) L 08/26/22 06:21 RDW Std Deviation 54.6 fL (36.4-46.3) H 08/26/22 06:21 RDW Coeff of Fabio 15.5 % (11.5-14.5) H 08/26/22 06:21 Plt Count 193 K/uL (130-400) 08/26/22 06:21 MPV 11.2 fL (9.4-12.4) 08/26/22 06:21 Immature Gran % (Auto) 2.5 % 08/24/22 06:40 Neut % (Auto) 51.1 % 08/24/22 06:40 Lymph % (Auto) 19.6 % 08/24/22 06:40 [place] % (Auto) 25.2 % 08/24/22 06:40 Eos % (Auto) 1.3 % 08/24/22 06:40 Baso % (Auto) 0.3 % 08/24/22 06:40 Neut # (Auto) 5.11 K/uL (1.40-6.50) 08/24/22 06:40 Lymph # (Auto) 1.96 K/uL (1.2-3.4) 08/24/22 06:40 [place] # (Auto) 2.52 K/uL (0.11-0.59) H 08/24/22 06:40 Eos # (Auto) 0.13 K/uL (0-0.50) 08/24/22 06:40 Baso # (Auto) 0.03 K/uL (0-0.2) 08/24/22 06:40 Immature Gran # (Auto) 0.25 K/uL (0.01-0.20) H 08/24/22 06:40 Absolute Nucleated RBC 0.02 K/uL (0-0.12) 08/20/22 08:16 Nucleated RBC % (auto) 0.2 % 08/20/22 08:16 VBG pH 7.34 (7.36-7.41) L 08/20/22 08:17 VBG pCO2 51 mmHg (38-50) H 08/20/22 08:17 VBG pO2 24 mmHg 08/20/22 08:17 VBG HCO3 28 mmol/L 08/20/22 08:17 VBG O2 Saturation < 60.0 % 08/20/22 08:17 VBG Base Excess 1.3 mEq/L 08/20/22 08:17 Sodium 140 mmol/L (136-145) 08/26/22 06:21 Potassium 3.8 mmol/L (3.5-5.1) 08/26/22 06:21 Chloride 107 mmol/L (98-107) 08/26/22 06:21 Carbon Dioxide 28 mmol/L (21-32) 08/26/22 06:21 Anion Gap 5 (3-11) 08/26/22 06:21 BUN 28 mg/dl (6-23) H 08/26/22 06:21 Creatinine 1.07 mg/dl (0.6-1.2) 08/26/22 06:21 Est Cr Clr Drug Dosing 50.1 ml/min 08/26/22 06:21 Est GFR ( Amer) 63.5 ml/min 08/26/22 06:21 Est GFR (Non-Af Amer) 54.8 ml/min 08/26/22 06:21 BUN/Creatinine Ratio 26.2 (10-20) H 08/26/22 06:21 Glucose 208 mg/dl (70-99(Fasting)) H 08/26/22 06:21 POC Glucose 304 mg/dl (70-99) H* 08/26/22 11:11 Calcium 8.3 mg/dl (8.6-10.3) L 08/26/22 06:21 Total Bilirubin 0.4 mg/dl (0.2-1.0) 08/24/22 06:40 AST 14 U/L (13-39) 08/24/22 06:40 ALT 10 U/L (7-52) 08/24/22 06:40 Alkaline Phosphatase 57 U/L (34-104) 08/24/22 06:40 Troponin I High Sens 22.7 pg/ml (0-14) H 08/20/22 12:38 B-Natriuretic Peptide 408 pg/ml (0-100) H 08/20/22 08:16 Total Protein 6.2 gm/dl (6.0-8.3) 08/24/22 06:40 Albumin 3.4 gm/dl (3.4-5.0) 08/24/22 06:40 Globulin 2.8 gm/dl (2.5-4.0) 08/24/22 06:40 Albumin/Globulin Ratio 1.2 (0.9-2) 08/24/22 06:40 Lipase 26 U/L (11-82) 08/20/22 08:16 SARS-CoV-2, RNA, NAAT NEGATIVE (NEGATIVE) 08/20/22 09:29 Impressions Chest X-Ray 08/23/22 10:49 XR chest 1V portable CLINICAL HISTORY: Follow up on pulmonary edema TECHNIQUE: Single frontal radiograph of the chest was obtained. Comparison: Comparison is made to chest radiograph 08/20/2022 FINDINGS: Exam is limited by underpenetration. Median sternotomy wires are unchanged. Cardiomegaly is noted. The lungs are clear. Small bilateral pleural effusions are seen. IMPRESSION: Small bilateral pleural effusions. Previously noted pulmonary edema has resolved. ACT 112: Negative or not required by law. Electronically signed by: Johny Ferrer M.D. 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 Recently admitted from 08/02-08/09 for sepsis in setting of Lyme disease, decompensated HF and GUY. Diureses well on 40mg IV lasix 1-2x daily and was discharged home with 1 week of doxycycline to complete for Lyme disease. Also saw psych service during previous admission and Cymbalta dose was decreased per their recommendation. Acute decompensated CHF Chronic respiratory failure with hypoxia Patient has been not following with cardiology due to insurance issues (as per family) Requiring 2-3 L O2 to maintain saturation Chest x-ray personally reviewed; consistent with cardiomegaly with pulmonary edema with layering pleural effusion Repeat chest x-ray: pulmonary edema resolved. Small bilateral pleural effusion present. BNP 408 2D echo from August 03, 2022 with mildly reduced EF of 45 to 50%, mid posterior wall hypokinetic, moderate to severe mitral regurgitation, mild tricuspid regurgitation Received IV Lasix 40 mg twice daily>> transition to Lasix 60 mg daily Monitor input and output Daily weights Volume status much improved Needs follow-up with cardiology upon discharge Lethargy Likely due to medications Will decrease Zyprexa to 2.5 mg at bedtime from 7.5 mg, stop donepezil and decrease dose of gabapentin to 300 mg twice daily Decrease melatonin to 3 mg at bedtime Reorient frequently to minimize delirium Mental status seem to be back to baseline Elevated troponin HS troponin 29.4 -> 22.7, likely demand ischemia. EKG: normal sinus rhythm with LBBB Denies any chest pain Right common iliac artery stenosis Follows with vascular surgery Dr.James Ángel Guerrier Continue aspirin, statin, Plavix Recommended follow-up with vascular surgery as outpatient for monitoring (sched uled in Sep 2022) H/O CAD, S/P CABG x 4-H/O MV endocarditis/periaortic abscess; Severe MR- Continue aspirin, Plavix, lisinopril, metoprolol DM II-uncontrolled HbA1c:11.2 last month Noncompliant with medications, food as per family Continue insulin while hospitalized Appreciate glycemic pharmacist help [facility]ARI[facility] nutrition educator consulted Blood glucose levels high today Advised to follow-up with PCP for further adjustment of insulin as needed Chronic Tobacco abuse Encourage cessation, however, patient is not interested in quitting at this time Nicotine patch Anxiety/Paranoia Continue Cymbalta, Zyprexa. Seen by psychiatry for medication adjustment on previous admission and Cymbalta decreased to 60mg daily Zyprexa, Melatonin dose decreased due to lethargy. History of prolonged qtc Monitor QTc DVT Px: SQ Lovenox Code status: FULL CODE Disposition Home with home health Total Time Total Time Spent Total Time Spent (In Minutes): 56 minutes Discharge Plan Discharge Items Patient Disposition: Home - Home Health Services Reason For Visit: DECOMPENSATED HF Discharge Diagnosis: Acute decompensated CHF Chronic respiratory failure with hypoxia Activity: Per Instructions section Exercise/Sports: Gradually increase as tolerated Non-emergency contact: Primary Care Provider and [employer] Call non-emergency contact if: you have any medication questions, your symptoms worsen, your pain is concerning for you and you have a fever Follow-up/Referrals: Christiano Simon PA-C [Primary Care Provider] - 08/31/22 11:00 am Diet: Carb Consistent or DM2 and Heart Healthy Addtl Attending Provider Instructions: Follow-up with your primary care physician Christiano Simon PA-C on 08/31/2022 at 11 AM as scheduled 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 Discuss with your physician for further adjustment of insulin as advised. Seek immediate medical attention if your symptoms reoccur or worsen Please take all medications as instructed on discharge list below. Please call if you have any questions or problems. You can reach a [facility] hospitalist on duty at [facility] 24 hours a day by calling [phone] Call your Primary Care doctor if any of the following symptoms or problems start or get worse: * Shortness of breath or difficulty breathing * Wake up at night short of breath * Chest pain * Cough * Swelling of your hands, feet, or legs * More fatigued or tired with your normal activity * Palpitations - sudden fast heart beats WEIGHT * Weigh yourself every morning after using the bathroom. * Use the same scale. * Wear the same amount of clothing. * Write your weight down on a chart. * Call your Primary Care doctor if you gain more than 2-3 pounds in 1-2 days. MEDICATIONS * Use this discharge instruction sheet for medication instructions. * Take your medications at the time your doctor ordered. * Do not skip a dose of your medicines. * If you miss a dose of medicine, take it as soon as possible, but DO NOT DOUBLE A DOSE. * Read your medicine information when you get home. * Know all of the side effects of your medicine. If in doubt, ask your pharmacist * Call your Primary Care doctor's office if you have any side effects. * Be sure all of your doctors know what medicine and herbs you take (including cold, flu, and herbal medicine). Take the following with you to your follow-up doctor appointments: * Weight Chart * Medication List * List of questions Do not drink excessive alcohol, beer or wine. Pending Studies at Discharge: No Stand-Alone Forms: My [facility] [employer], Smoking Cessation Medications and DC Order Prescriptions: New olanzapine 2.5 mg Tablet 2.5 mg PO HS Qty: 30 0RF Continued clopidogrel 75 mg tablet 75 mg PO DAILY topiramate 50 mg tablet 50 mg PO BID duloxetine 60 mg capsule,delayed release(DR/EC) 60 mg PO QAM Rx Instructions: Last filled 03/21/22 x90 day supply. Take 60mg capsule w/ 30 mg capsule for 90mg dose once in the morning aspirin 81 mg Tablet,Delayed Release (Dr/Ec) 81 mg PO DAILY nitroglycerin 0.4 mg tablet, sublingual 0.4 mg sublingual .PRN/UD PRN (Reason: Chest Pain) Rx Instructions: NEEDED FOR CHEST PAIN : ONE TABLET UNDER THE TONGUE EVERY 5 MINUTES UP TO THREE DOSES. insulin aspart U-100 [Novolog FlexPen U-100 Insulin] 100 unit/mL (3 mL) Insulin Pen 0 unit SUBCUT TID MDD 72 UNITS/DAY. Rx Instructions: PER SLIDING SCALE acetaminophen [Tylenol Extra Strength] 500 mg Tablet 500 mg PO Q6H PRN (Reason: Pain) omeprazole 20 mg Capsule,Delayed Release(Dr/Ec) 20 mg PO DAILY furosemide [Lasix] 20 mg Tablet 60 mg PO DAILY cetirizine [Zyrtec] 10 mg Tablet 10 mg PO DAILY ergocalciferol (vitamin D2) [Vitamin D2] 1,250 mcg (50,000 unit) Capsule 1,250 mcg PO WK melatonin 5 mg Tablet 5 mg PO HS atorvastatin 80 mg tablet 80 mg PO DAILY metoprolol succinate 50 mg tablet extended release 24 hr 100 mg PO BID Qty: 60 0RF Rx Instructions: 50 mg orally; TAKES 100 MG QAM, THEN 50 MG QPM. lisinopril 10 mg tablet 20 mg PO DAILY Qty: 30 0RF Changed gabapentin 300 mg capsule 300 mg PO BID Qty: 60 0RF insulin glargine [Basaglar KwikPen U-100 Insulin] 100 unit/mL (3 mL) Insulin Pen 45 unit SUBCUT QAM Qty: 15 0RF Discontinued donepezil 5 mg tablet 5 mg PO HS Rx Instructions: Last filled 06/01/22 x30 day supply olanzapine 7.5 mg Tablet 7.5 mg PO HS Discharge Orders: Discharge Order (Routine); Ordered 08/26/22 Ordered By: Mann Perez Admission Data Admit Date/Time: 08/20/22 10:08 Attending Provider: Mann Perez Admit Provider: Oliver Camejo Primary Care Provider: Christiano Simon Other Providers: Oliver Camejo ; [facility]
== END 2022-08-26 15:35 | disposition home health service (06) | DRG 291 ==
LOC: ED 08:08 → SUATTDRO 10:08 → 2S 10:08

== ENCOUNTER 2022-11-16 15:16 | Inpatient (IN) ==
--- NOTE | 2022-11-16 15:40 | Emergency Department Note ---
Impression & Plan Acute on chronic respiratory failure with hypoxemia, COPD (chronic obstructive pulmonary disease), Encephalopathy ED Provider Note NAME: MARSHA WILDE AGE: 62 SEX: F : 1960 ARRIVES VIA: Ambulance INFORMANT: Patient, ED PROVIDER(S): Juan A Daily MD CHIEF COMPLAINT: Change in mentation MEDICAL DECISION MAKING: Patient did present 3 concern for altered mentation. IV was established and blood work was obtained. Patient was noted to have an elevated white count. The patient was ordered empiric antibiotics. The patient was trialed on BiPAP but the patient refused and took it off. Patient did have waxing waning periods of more alertness. Patient was given some IV Narcan. This did seem to improve some of her symptoms. After discussion with the patient's daughter she stated that she did not think that she was taking any narcotic medications and review of the PDMP does not show any significant recent fills. The patient did not receive a 30 cc/kg bolus given the patient's known history of heart failure. The patient did receive a small fluid bolus of 250 cc as the patient has a known history of heart failure. Patient's blood pressure has been well maintained and the patient does not have a significantly elevated lactate or hypotension. I did speak with the patient's daughter who related that the patient does not take medications on a regular basis. Hemoglobin is 7 which is fairly chronic and stable. Normal platelet count. Creatinine 1.5 slightly elevated. Sugar of 292. Patient's liver function testing grossly unremarkable. Ammonia Tylenol salicylate alcohol negative. The VBG does not show significant hypercarbia. Urinalysis without evidence of obvious infection CT of the head chest x-ray and CT abdomen pelvis performed. CT head does not show any obvious ICH. CT abdomen pelvis does not show any overt concerning findings. Patient's initial Pro-Jesus and lactate are not elevated. I did speak with the on-call hospitalist service and the patient was admitted by Dr. King. Discussion w/ other healthcare providers: Dr. King with inpatient medicine service Prior /Outside records reviewed: Reviewed a discharge summary that was completed yesterday from Dr. Lee. Known history of CAD status post CABG x4 ischemic cardiomyopathy moderate to severe and more chronic heart failure with preserved ejection fraction [place] branch block hyperlipidemia type 2 diabetes chronic tobacco user extremity BKA mitral valve endocarditis. Aortic abscess chronic normocytic anemia ISAURA on CPAP known history of COPD was recommended the patient's consider BiPAP. Differential diagnosis: Infection, dehydration, metabolic abnormality, hypo/hyperglycemia, electrolyte imbalance, anemia, UTI, pneumonia, thyroid dysfunction among others were considered. Diagnostics, as interpreted by me: ECG: Normal sinus rhythm, rate 97, normal intervals, normal axis no ST elevations. T wave version aVL. No significant change from comparison November 15, 2022 Cardiac monitoring: An order was placed for continuous cardiac monitoring. The monitor shows a rate of 105 with tachycardic and regular rhythm. Patient was placed on pulse oximetry Medical decision rules: None Imaging studies: I informally interpreted the patient's CT of the head which does not show obvious ICH with formal report to follow. HPI: Patient does present due to concern for change in mentation. Reportedly th e patient had presented from home after being found down by her daughter. Patient was not on her home O2 which is she is typically on. Patient is able to answer some questions but is somewhat somnolent. I did speak with the patient's daughter Perla who stated that she does not wish take her medications and does not always take care of herself. PAST MEDICAL HISTORY: See Below PAST SURGICAL HISTORY: See Below SOCIAL HISTORY: See Below HOME MEDICATIONS: See Below ALLERGIES: See Below VITALS: See Below PHYSICAL EXAMINATION: GENERAL: NAD, non-toxic. EYE EXAM: Normal conjunctiva. PERRL, no anisocoria and EOM's grossly intact w/o pain. OROPHARYNX: Moist mucus membranes, grossly normal dentition. NECK: Supple, no nuchal rigidity, no adenopathy, non-tender. No signs of meningismus. FROM of the neck with good chin to chest and neck extension. No stridor. LUNGS: Clear to auscultation. Normal chest wall mechanics. HEART: NSR, no MRG. ABDOMEN: Abdomen soft, non-tender, no masses, no rebound or guarding. BACK: No CVA TTP. SKIN: No rashes and no bruising. UPPER EXTREMITIES: Upper extremities are grossly normal. LOWER EXTREMITIES: Grossly normal, no edema. NEURO EXAM: Opens eyes to voice GCS of 14 does follow basic commands, cranial nerves II-XII grossly intact, normal speech, moves all 4 extremities. Past Med/Surg History Medical History Abscess of aorta Acute on chronic HFrEF (heart failure with reduced ejection fraction) Anxiety Carotid stenosis according to records from 2019 CEA was recommended but patient declined. no objective quantification available Carpal tunnel syndrome, left Chronic congestive heart failure with left ventricular diastolic dysfunction Coronary artery disease Diabetes mellitus, type 2 DVT prophylaxis Encounter for pre-operative examination Fracture of left tibial plateau HFrEF (heart failure with reduced ejection fraction) History of left below knee amputation HTN (hypertension) LBBB (left bundle branch block) MRSA bacteremia Osteomyelitis Psychotic disorder Right foot pain Tobacco use disorder Ulnar neuropathy at elbow of left upper extremity Surgical History Status post cholecystectomy Status post coronary artery bypass grafting Status post hysterectomy Status post ORIF of fracture of ankle R, 2016 Family History Other Diabetes Heart disease Social History Smoking Status: Current some day smoker Tobacco Type: Cigarettes packs per day: 1; Cigarettes Per Day: 10; Second Hand Exposure: Yes; Do You Dip or Chew Tobacco: No; Hx Alcohol Use: No Hx Substance Use: No Preferred Language: Greek Communication Ability: Impaired Process Control Tech Required: No Beliefs That Will Affect Care: None marital status: Current Living Situation: Alone Current Living Situation Comment: house Feels Safe at Home: Yes Assistive Devices: Oxygen - Continuous, Walker and Wheelchair Allergies Allergies Allergy/AdvReac Type Severity Reaction Status Date / Time latex Allergy Intermediate Rash Verified 04/28/22 13:20 Home Meds Home Medications Medication Instructions Recorded Confirmed clopidogrel 75 mg tablet 75 mg PO DAILY 03/16/21 11/16/22 duloxetine 60 mg capsule,delayed 90 mg PO QAM 03/16/21 11/16/22 release topiramate 50 mg tablet 50 mg PO BID 03/16/21 11/16/22 aspirin 81 mg tablet,delayed 81 mg PO DAILY 05/14/21 11/16/22 release insulin aspart U-100 100 unit/mL 0 unit subcut TID 05/14/21 11/16/22 (3 mL) subcutaneous pen (Novolog FlexPen U-100 Insulin aspart) nitroglycerin 0.4 mg sublingual 0.4 mg sublingual .PRN/UD PRN 05/14/21 11/16/22 tablet Chest Pain acetaminophen 500 mg tablet 500 mg PO Q6H PRN Pain 08/23/21 11/16/22 (Tylenol Extra Strength) furosemide 20 mg tablet (Lasix) 60 mg PO DAILY 08/23/21 11/16/22 cetirizine 10 mg tablet (Zyrtec) 10 mg PO DAILY 08/02/22 11/16/22 melatonin 5 mg tablet 5 mg PO HS 08/02/22 11/16/22 atorvastatin 80 mg tablet 80 mg PO DAILY 08/04/22 11/16/22 insulin glargine 100 unit/mL (3 35 unit subcut QAM 10/30/22 11/16/22 mL) subcutaneous pen (Karsonaglar Joe U-100 Insulin) metoprolol succinate 50 mg 50 mg PO QPM 10/30/22 11/16/22 tablet,extended release 24 hr metoprolol succinate 50 mg 100 mg PO QAM 10/30/22 11/16/22 tablet,extended release 24 hr ondansetron 4 mg disintegrating 4 mg PO Q8H PRN N/V 11/14/22 11/16/22 tablet olanzapine 5 mg tablet 5 mg PO HS 11/16/22 11/16/22 pantoprazole 40 mg tablet,delayed 40 mg PO DAILY 11/16/22 11/16/22 release ropinirole 1 mg tablet 1 mg PO QPM 11/16/22 11/16/22 Previous Rx's Medication Instructions Recorded gabapentin 300 mg capsule 300 mg PO BID #60 caps 08/26/22 cefdinir 300 mg capsule 300 mg PO BID #18 caps 11/08/22 isosorbide mononitrate 30 mg 30 mg PO QAM #30 tabs 11/15/22 tablet,extended release 24 hr lisinopril 5 mg tablet (Zestril) 5 mg PO QAM #30 tabs 11/15/22 Results & Data (ED) Vital Signs Vital Signs - 24 hr 11/16/22 15:27 11/16/22 15:23 Temperature 37.2 C Temperature Source Oral Pulse Rate 95 H 98 H Respiratory Rate 26 H Respiratory Effort / Characteristics Labored Short of Breath Blood Pressure 144/104 H Blood Pressure Mean 117 Pulse Oximetry 98 Oxygen Delivery Method Oxymask Oxygen Flow Rate 4 Sepsis Recent Fever Within 48 Hours No Sepsis New/Unexplained Change in Mental Status Yes Sepsis Action Taken by Nursing Physician Notified Home Medications Current Medication List: was personally reviewed by me Laboratory Data Attestation: I reviewed the patient's lab results. 11/21/22 03:33 11/21/22 03:18 Lab Results 11/16/22 11/16/22 11/16/22 Range/Units 15:33 15:33 15:33 WBC 22.38 H (4.8-10.8) K/ul RBC 2.65 L (4.20-5.40) M/uL Hgb 7.7 L (12.0-16.0) g/dl Hct 24.5 L (37.0-47.0) % MCV 92.5 (80.0-100.0) fL MCH 29.1 (25.0-34.0) pg MCHC 31.4 L (32.0-36.0) g/dL RDW Std Deviation 54.4 H (36.4-46.3) fL RDW Coeff of Fabio 16.6 H (11.5-14.5) % Plt Count 179 (130-400) K/uL MPV 11.2 (9.4-12.4) fL Immature Gran % (Auto) 2.5 % Neut % (Auto) 66.2 % Lymph % (Auto) 10.5 % [place] % (Auto) 20.0 % Eos % (Auto) 0.6 % Baso % (Auto) 0.2 % Neut # (Auto) 14.83 H (1.40-6.50) K/uL Lymph # (Auto) 2.34 (1.20-3.40) K/uL [place] # (Auto) 4.47 H (0.11-0.59) K/uL Eos # (Auto) 0.13 (0.00-0.50) K/uL Baso # (Auto) 0.05 (0.00-0.20) K/uL Immature Gran # (Auto) 0.56 H (0.01-0.20) K/uL Absolute Nucleated RBC 0.02 (0.00-0.12) K/uL Nucleated RBC % (auto) 0.1 % Polychromasia 1+ Spherocytes 2+ PT 11.4 (9.0-12.0) Seconds INR 1.0 (0.9-1.1) APTT 27.7 (21.0-31.0) Seconds PTT Ratio 1.0 VBG pH (7.36-7.41) VBG pCO2 (38-50) mmHg VBG pO2 mmHg VBG HCO3 mmol/L VBG O2 Saturation % VBG Base Excess mEq/L Sodium 136 (136-145) mmol/L Potassium 4.1 (3.5-5.1) mmol/L Chloride 106 (98-107) mmol/L Carbon Dioxide 21 (21-32) mmol/L Anion Gap 9 (3-11) BUN 34 H (6-23) mg/dl Creatinine 1.57 H D (0.6-1.2) mg/dl Est Cr Clr Drug Dosing Not Reportable Est GFR ( Amer) 40.0 ml/min Est GFR (Non-Af Amer) 34.5 ml/min BUN/Creatinine Ratio 21.7 H (10-20) Glucose 292 H (70-99(Fasting)) mg/dl POC Glucose (70-99) mg/dl Lactate (0.4-2.0) mmol/L Calcium 9.1 (8.6-10.3) mg/dl Magnesium 1.9 (1.7-2.4) mg/dl Total Bilirubin 0.5 (0.2-1.0) mg/dl AST 29 (13-39) U/L ALT 20 (7-52) U/L Alkaline Phosphatase 64 (34-104) U/L Ammonia (18-72) umol/L Total Creatine Kinase 76 (26-192) U/L B-Natriuretic Peptide (0-100) pg/ml Total Protein 7.5 (6.0-8.3) gm/dl Albumin 4.0 (3.4-5.0) gm/dl Globulin 3.5 (2.5-4.0) gm/dl Albumin/Globulin Ratio 1.1 (0.9-2) Procalcitonin (0-0.5) ng/ml Urine Color Urine Appearance (Clear) Urine pH (4.5-7.5) Ur Specific [place] (1.000-1.030) Urine Protein (Negative) Urine Glucose (UA) (Negative) Urine Ketones (Negative) Urine Blood (Negative) Urine Nitrite (Negative) Urine Bilirubin (Negative) Urine Urobilinogen (Negative) Ur Leukocyte Esterase (Negative) Urine WBC (Auto) (0-5) /hpf Urine RBC (Auto) (0-4) /hpf U Hyaline Cast (Auto) (0-5) /lpf U Epithel Cells (Auto) (0-5) /lpf Urine Bacteria (Auto) (Negative) Salicylates (3.0-30) mg/dl Urine Opiates Screen (Neg) Ur Methadone, Qual (Neg) Acetaminophen (10-30) ug/ml Urine Barbiturates (Neg) Ur Phencyclidine (PCP) (Neg) U Amphetamin/Meth Scrn (Neg) MDMA (Ecstasy) Screen (Neg) U Benzodiazepines Scrn (Neg) Ur Cocaine Metabolite (Neg) U Marijuana (THC) Screen (Neg) Ethyl Alcohol mg/dL (<10.0) mg/dl Adenovirus (PCR) (NotDetected) B. pertussis DNA (PCR) (NotDetected) B.parapertussis DNA PCR (NotDetected) Lyme Disease IgG Ab (Negative) Lyme Disease IgM Ab (Negative) C. pneumoniae DNA (PCR) (NotDetected) Coronavirus OC43 (PCR) (NotDetected) Coronavirus HKU1 (PCR) (NotDetected) Coronavirus 229E (PCR) (NotDetected) SARS-CoV-2 (PCR) (NotDetected) Coronavirus NL63 (PCR) (NotDetected) Human Metapneumovir PCR (NotDetected) Influenza Type A (PCR) (NotDetected) Influenza Type B (PCR) (NotDetected) M. pneumoniae (PCR) (NotDetected) Parainfluenza 1 (PCR) (NotDetected) Parainfluenza 2 (PCR) (NotDetected) Parainfluenza 3 (PCR) (NotDetected) Parainfluenza 4 (PCR) (NotDetected) RSV (PCR) (NotDetected) Entero/Rhino (PCR) (NotDetected) Blood Type Antibody Screen Crossmatch 11/16/22 11/16/22 11/16/22 Range/Units 15:33 15:33 15:33 WBC (4.8-10.8) K/ul RBC (4.20-5.40) M/uL Hgb (12.0-16.0) g/dl Hct (37.0-47.0) % MCV (80.0-100.0) fL MCH (25.0-34.0) pg MCHC (32.0-36.0) g/dL RDW Std Deviation (36.4-46.3) fL RDW Coeff of Fabio (11.5-14.5) % Plt Count (130-400) K/uL MPV (9.4-12.4) fL Immature Gran % (Auto) % Neut % (Auto) % Lymph % (Auto) % [place] % (Auto) % Eos % (Auto) % Baso % (Auto) % Neut # (Auto) (1.40-6.50) K/uL Lymph # (Auto) (1.20-3.40) K/uL [place] # (Auto) (0.11-0.59) K/uL Eos # (Auto) (0.00-0.50) K/uL Baso # (Auto) (0.00-0.20) K/uL Immature Gran # (Auto) (0.01-0.20) K/uL Absolute Nucleated RBC (0.00-0.12) K/uL Nucleated RBC % (auto) % Polychromasia Spherocytes PT (9.0-12.0) Seconds INR (0.9-1.1) APTT (21.0-31.0) Seconds PTT Ratio VBG pH 7.37 (7.36-7.41) VBG pCO2 37 L (38-50) mmHg VBG pO2 45 mmHg VBG HCO3 21 mmol/L VBG O2 Saturation 72.2 % VBG Base Excess -3.4 mEq/L Sodium (136-145) mmol/L Potassium (3.5-5.1) mmol/L Chloride (98-107) mmol/L Carbon Dioxide (21-32) mmol/L Anion Gap (3-11) BUN (6-23) mg/dl Creatinine (0.6-1.2) mg/dl Est Cr Clr Drug Dosing Est GFR ( Amer) ml/min Est GFR (Non-Af Amer) ml/min BUN/Creatinine Ratio (10-20) Glucose (70-99(Fasting)) mg/dl POC Glucose (70-99) mg/dl Lactate (0.4-2.0) mmol/L Calcium (8.6-10.3) mg/dl Magnesium (1.7-2.4) mg/dl Total Bilirubin (0.2-1.0) mg/dl AST (13-39) U/L ALT (7-52) U/L Alkaline Phosphatase (34-104) U/L Ammonia (18-72) umol/L Total Creatine Kinase (26-192) U/L B-Natriuretic Peptide 467 H (0-100) pg/ml Total Protein (6.0-8.3) gm/dl Albumin (3.4-5.0) gm/dl Globulin (2.5-4.0) gm/dl Albumin/Globulin Ratio (0.9-2) Procalcitonin (0-0.5) ng/ml Urine Color Urine Appearance (Clear) Urine pH (4.5-7.5) Ur Specific [place] (1.000-1.030) Urine Protein (Negative) Urine Glucose (UA) (Negative) Urine Ketones (Negative) Urine Blood (Negative) Urine Nitrite (Negative) Urine Bilirubin (Negative) Urine Urobilinogen (Negative) Ur Leukocyte Esterase (Negative) Urine WBC (Auto) (0-5) /hpf Urine RBC (Auto) (0-4) /hpf U Hyaline Cast (Auto) (0-5) /lpf U Epithel Cells (Auto) (0-5) /lpf Urine Bacteria (Auto) (Negative) Salicylates < 3.0 L (3.0-30) mg/dl Urine Opiates Screen (Neg) Ur Methadone, Qual (Neg) Acetaminophen < 3 L (10-30) ug/ml Urine Barbiturates (Neg) Ur Phencyclidine (PCP) (Neg) U Amphetamin/Meth Scrn (Neg) MDMA (Ecstasy) Screen (Neg) U Benzodiazepines Scrn (Neg) Ur Cocaine Metabolite (Neg) U Marijuana (THC) Screen (Neg) Ethyl Alcohol mg/dL (<10.0) mg/dl Adenovirus (PCR) (NotDetected) B. pertussis DNA (PCR) (NotDetected) B.parapertussis DNA PCR (NotDetected) Lyme Disease IgG Ab (Negative) Lyme Disease IgM Ab (Negative) C. pneumoniae DNA (PCR) (NotDetected) Coronavirus OC43 (PCR) (NotDetected) Coronavirus HKU1 (PCR) (NotDetected) Coronavirus 229E (PCR) (NotDetected) SARS-CoV-2 (PCR) (NotDetected) Coronavirus NL63 (PCR) (NotDetected) Human Metapneumovir PCR (NotDetected) Influenza Type A (PCR) (NotDetected) Influenza Type B (PCR) (NotDetected) M. pneumoniae (PCR) (NotDetected) Parainfluenza 1 (PCR) (NotDetected) Parainfluenza 2 (PCR) (NotDetected) Parainfluenza 3 (PCR) (NotDetected) Parainfluenza 4 (PCR) (NotDetected) RSV (PCR) (NotDetected) Entero/Rhino (PCR) (NotDetected) Blood Type Antibody Screen Crossmatch 11/16/22 11/16/22 11/16/22 Range/Units 15:33 15:33 15:44 WBC (4.8-10.8) K/ul RBC (4.20-5.40) M/uL Hgb (12.0-16.0) g/dl Hct (37.0-47.0) % MCV (80.0-100.0) fL MCH (25.0-34.0) pg MCHC (32.0-36.0) g/dL RDW Std Deviation (36.4-46.3) fL RDW Coeff of Fabio (11.5-14.5) % Plt Count (130-400) K/uL MPV (9.4-12.4) fL Immature Gran % (Auto) % Neut % (Auto) % Lymph % (Auto) % [place] % (Auto) % Eos % (Auto) % Baso % (Auto) % Neut # (Auto) (1.40-6.50) K/uL Lymph # (Auto) (1.20-3.40) K/uL [place] # (Auto) (0.11-0.59) K/uL Eos # (Auto) (0.00-0.50) K/uL Baso # (Auto) (0.00-0.20) K/uL Immature Gran # (Auto) (0.01-0.20) K/uL Absolute Nucleated RBC (0.00-0.12) K/uL Nucleated RBC % (auto) % Polychromasia Spherocytes PT (9.0-12.0) Seconds INR (0.9-1.1) APTT (21.0-31.0) Seconds PTT Ratio VBG pH (7.36-7.41) VBG pCO2 (38-50) mmHg VBG pO2 mmHg VBG HCO3 mmol/L VBG O2 Saturation % VBG Base Excess mEq/L Sodium (136-145) mmol/L Potassium (3.5-5.1) mmol/L Chloride (98-107) mmol/L Carbon Dioxide (21-32) mmol/L Anion Gap (3-11) BUN (6-23) mg/dl Creatinine (0.6-1.2) mg/dl Est Cr Clr Drug Dosing Est GFR ( Amer) ml/min Est GFR (Non-Af Amer) ml/min BUN/Creatinine Ratio (10-20) Glucose (70-99(Fasting)) mg/dl POC Glucose 321 H* (70-99) mg/dl Lactate (0.4-2.0) mmol/L Calcium (8.6-10.3) mg/dl Magnesium (1.7-2.4) mg/dl Total Bilirubin (0.2-1.0) mg/dl AST (13-39) U/L ALT (7-52) U/L Alkaline Phosphatase (34-104) U/L Ammonia (18-72) umol/L Total Creatine Kinase (26-192) U/L B-Natriuretic Peptide (0-100) pg/ml Total Protein (6.0-8.3) gm/dl Albumin (3.4-5.0) gm/dl Globulin (2.5-4.0) gm/dl Albumin/Globulin Ratio (0.9-2) Procalcitonin 0.34 (0-0.5) ng/ml Urine Color Urine Appearance (Clear) Urine pH (4.5-7.5) Ur Specific [place] (1.000-1.030) Urine Protein (Negative) Urine Glucose (UA) (Negative) Urine Ketones (Negative) Urine Blood (Negative) Urine Nitrite (Negative) Urine Bilirubin (Negative) Urine Urobilinogen (Negative) Ur Leukocyte Esterase (Negative) Urine WBC (Auto) (0-5) /hpf Urine RBC (Auto) (0-4) /hpf U Hyaline Cast (Auto) (0-5) /lpf U Epithel Cells (Auto) (0-5) /lpf Urine Bacteria (Auto) (Negative) Salicylates (3.0-30) mg/dl Urine Opiates Screen (Neg) Ur Methadone, Qual (Neg) Acetaminophen (10-30) ug/ml Urine Barbiturates (Neg) Ur Phencyclidine (PCP) (Neg) U Amphetamin/Meth Scrn (Neg) MDMA (Ecstasy) Screen (Neg) U Benzodiazepines Scrn (Neg) Ur Cocaine Metabolite (Neg) U Marijuana (THC) Screen (Neg) Ethyl Alcohol mg/dL (<10.0) mg/dl Adenovirus (PCR) (NotDetected) B. pertussis DNA (PCR) (NotDetected) B.parapertussis DNA PCR (NotDetected) Lyme Disease IgG Ab Negative (Negative) Lyme Disease IgM Ab Positive A (Negative) C. pneumoniae DNA (PCR) (NotDetected) Coronavirus OC43 (PCR) (NotDetected) Coronavirus HKU1 (PCR) (NotDetected) Coronavirus 229E (PCR) (NotDetected) SARS-CoV-2 (PCR) (NotDetected) Coronavirus NL63 (PCR) (NotDetected) Human Metapneumovir PCR (NotDetected) Influenza Type A (PCR) (NotDetected) Influenza Type B (PCR) (NotDetected) M. pneumoniae (PCR) (NotDetected) Parainfluenza 1 (PCR) (NotDetected) Parainfluenza 2 (PCR) (NotDetected) Parainfluenza 3 (PCR) (NotDetected) Parainfluenza 4 (PCR) (NotDetected) RSV (PCR) (NotDetected) Entero/Rhino (PCR) (NotDetected) Blood Type Antibody Screen Crossmatch 11/16/22 11/16/22 11/16/22 Range/Units 16:36 16:36 16:36 WBC (4.8-10.8) K/ul RBC (4.20-5.40) M/uL Hgb (12.0-16.0) g/dl Hct (37.0-47.0) % MCV (80.0-100.0) fL MCH (25.0-34.0) pg MCHC (32.0-36.0) g/dL RDW Std Deviation (36.4-46.3) fL RDW Coeff of Fabio (11.5-14.5) % Plt Count (130-400) K/uL MPV (9.4-12.4) fL Immature Gran % (Auto) % Neut % (Auto) % Lymph % (Auto) % [place] % (Auto) % Eos % (Auto) % Baso % (Auto) % Neut # (Auto) (1.40-6.50) K/uL Lymph # (Auto) (1.20-3.40) K/uL [place] # (Auto) (0.11-0.59) K/uL Eos # (Auto) (0.00-0.50) K/uL Baso # (Auto) (0.00-0.20) K/uL Immature Gran # (Auto) (0.01-0.20) K/uL Absolute Nucleated RBC (0.00-0.12) K/uL Nucleated RBC % (auto) % Polychromasia Spherocytes PT (9.0-12.0) Seconds INR (0.9-1.1) APTT (21.0-31.0) Seconds PTT Ratio VBG pH (7.36-7.41) VBG pCO2 (38-50) mmHg VBG pO2 mmHg VBG HCO3 mmol/L VBG O2 Saturation % VBG Base Excess mEq/L Sodium (136-145) mmol/L Potassium (3.5-5.1) mmol/L Chloride (98-107) mmol/L Carbon Dioxide (21-32) mmol/L Anion Gap (3-11) BUN (6-23) mg/dl Creatinine (0.6-1.2) mg/dl Est Cr Clr Drug Dosing Est GFR ( Amer) ml/min Est GFR (Non-Af Amer) ml/min BUN/Creatinine Ratio (10-20) Glucose (70-99(Fasting)) mg/dl POC Glucose (70-99) mg/dl Lactate 1.4 (0.4-2.0) mmol/L Calcium (8.6-10.3) mg/dl Magnesium (1.7-2.4) mg/dl Total Bilirubin (0.2-1.0) mg/dl AST (13-39) U/L ALT (7-52) U/L Alkaline Phosphatase (34-104) U/L Ammonia 36.0 (18-72) umol/L Total Creatine Kinase (26-192) U/L B-Natriuretic Peptide (0-100) pg/ml Total Protein (6.0-8.3) gm/dl Albumin (3.4-5.0) gm/dl Globulin (2.5-4.0) gm/dl Albumin/Globulin Ratio (0.9-2) Procalcitonin (0-0.5) ng/ml Urine Color Urine Appearance (Clear) Urine pH (4.5-7.5) Ur Specific [place] (1.000-1.030) Urine Protein (Negative) Urine Glucose (UA) (Negative) Urine Ketones (Negative) Urine Blood (Negative) Urine Nitrite (Negative) Urine Bilirubin (Negative) Urine Urobilinogen (Negative) Ur Leukocyte Esterase (Negative) Urine WBC (Auto) (0-5) /hpf Urine RBC (Auto) (0-4) /hpf U Hyaline Cast (Auto) (0-5) /lpf U Epithel Cells (Auto) (0-5) /lpf Urine Bacteria (Auto) (Negative) Salicylates (3.0-30) mg/dl Urine Opiates Screen (Neg) Ur Methadone, Qual (Neg) Acetaminophen (10-30) ug/ml Urine Barbiturates (Neg) Ur Phencyclidine (PCP) (Neg) U Amphetamin/Meth Scrn (Neg) MDMA (Ecstasy) Screen (Neg) U Benzodiazepines Scrn (Neg) Ur Cocaine Metabolite (Neg) U Marijuana (THC) Screen (Neg) Ethyl Alcohol mg/dL < 10.0 (<10.0) mg/dl Adenovirus (PCR) (NotDetected) B. pertussis DNA (PCR) (NotDetected) B.parapertussis DNA PCR (NotDetected) Lyme Disease IgG Ab (Negative) Lyme Disease IgM Ab (Negative) C. pneumoniae DNA (PCR) (NotDetected) Coronavirus OC43 (PCR) (NotDetected) Coronavirus HKU1 (PCR) (NotDetected) Coronavirus 229E (PCR) (NotDetected) SARS-CoV-2 (PCR) (NotDetected) Coronavirus NL63 (PCR) (NotDetected) Human Metapneumovir PCR (NotDetected) Influenza Type A (PCR) (NotDetected) Influenza Type B (PCR) (NotDetected) M. pneumoniae (PCR) (NotDetected) Parainfluenza 1 (PCR) (NotDetected) Parainfluenza 2 (PCR) (NotDetected) Parainfluenza 3 (PCR) (NotDetected) Parainfluenza 4 (PCR) (NotDetected) RSV (PCR) (NotDetected) Entero/Rhino (PCR) (NotDetected) Blood Type Antibody Screen Crossmatch 11/16/22 11/16/22 11/16/22 Range/Units 16:36 17:11 17:11 WBC (4.8-10.8) K/ul RBC (4.20-5.40) M/uL Hgb (12.0-16.0) g/dl Hct (37.0-47.0) % MCV (80.0-100.0) fL MCH (25.0-34.0) pg MCHC (32.0-36.0) g/dL RDW Std Deviation (36.4-46.3) fL RDW Coeff of Fabio (11.5-14.5) % Plt Count (130-400) K/uL MPV (9.4-12.4) fL Immature Gran % (Auto) % Neut % (Auto) % Lymph % (Auto) % [place] % (Auto) % Eos % (Auto) % Baso % (Auto) % Neut # (Auto) (1.40-6.50) K/uL Lymph # (Auto) (1.20-3.40) K/uL [place] # (Auto) (0.11-0.59) K/uL Eos # (Auto) (0.00-0.50) K/uL Baso # (Auto) (0.00-0.20) K/uL Immature Gran # (Auto) (0.01-0.20) K/uL Absolute Nucleated RBC (0.00-0.12) K/uL Nucleated RBC % (auto) % Polychromasia Spherocytes PT (9.0-12.0) Seconds INR (0.9-1.1) APTT (21.0-31.0) Seconds PTT Ratio VBG pH (7.36-7.41) VBG pCO2 (38-50) mmHg VBG pO2 mmHg VBG HCO3 mmol/L VBG O2 Saturation % VBG Base Excess mEq/L Sodium (136-145) mmol/L Potassium (3.5-5.1) mmol/L Chloride (98-107) mmol/L Carbon Dioxide (21-32) mmol/L Anion Gap (3-11) BUN (6-23) mg/dl Creatinine (0.6-1.2) mg/dl Est Cr Clr Drug Dosing Est GFR ( Amer) ml/min Est GFR (Non-Af Amer) ml/min BUN/Creatinine Ratio (10-20) Glucose (70-99(Fasting)) mg/dl POC Glucose (70-99) mg/dl Lactate (0.4-2.0) mmol/L Calcium (8.6-10.3) mg/dl Magnesium Cancelled (1.7-2.4) mg/dl Total Bilirubin (0.2-1.0) mg/dl AST (13-39) U/L ALT (7-52) U/L Alkaline Phosphatase (34-104) U/L Ammonia (18-72) umol/L Total Creatine Kinase (26-192) U/L B-Natriuretic Peptide (0-100) pg/ml Total Protein (6.0-8.3) gm/dl Albumin (3.4-5.0) gm/dl Globulin (2.5-4.0) gm/dl Albumin/Globulin Ratio (0.9-2) Procalcitonin (0-0.5) ng/ml Urine Color Dark Yellow Urine Appearance Clear (Clear) Urine pH 5.0 (4.5-7.5) Ur Specific [place] 1.025 (1.000-1.030) Urine Protein 2+ H (Negative) Urine Glucose (UA) Negative (Negative) Urine Ketones Trace H (Negative) Urine Blood Negative (Negative) Urine Nitrite Negative (Negative) Urine Bilirubin 1+ H (Negative) Urine Urobilinogen Negative (Negative) Ur Leukocyte Esterase Negative (Negative) Urine WBC (Auto) 1-5 (0-5) /hpf Urine RBC (Auto) 0-4 (0-4) /hpf U Hyaline Cast (Auto) 0 (0-5) /lpf U Epithel Cells (Auto) 10-20 H (0-5) /lpf Urine Bacteria (Auto) Negative (Negative) Salicylates (3.0-30) mg/dl Urine Opiates Screen Neg (Neg) Ur Methadone, Qual Neg (Neg) Acetaminophen (10-30) ug/ml Urine Barbiturates Neg (Neg) Ur Phencyclidine (PCP) Neg (Neg) U Amphetamin/Meth Scrn Neg (Neg) MDMA (Ecstasy) Screen Neg (Neg) U Benzodiazepines Scrn Neg (Neg) Ur Cocaine Metabolite Neg (Neg) U Marijuana (THC) Screen Neg (Neg) Ethyl Alcohol mg/dL (<10.0) mg/dl Adenovirus (PCR) (NotDetected) B. pertussis DNA (PCR) (NotDetected) B.parapertussis DNA PCR (NotDetected) Lyme Disease IgG Ab (Negative) Lyme Disease IgM Ab (Negative) C. pneumoniae DNA (PCR) (NotDetected) Coronavirus OC43 (PCR) (NotDetected) Coronavirus HKU1 (PCR) (NotDetected) Coronavirus 229E (PCR) (NotDetected) SARS-CoV-2 (PCR) (NotDetected) Coronavirus NL63 (PCR) (NotDetected) Human Metapneumovir PCR (NotDetected) Influenza Type A (PCR) (NotDetected) Influenza Type B (PCR) (NotDetected) M. pneumoniae (PCR) (NotDetected) Parainfluenza 1 (PCR) (NotDetected) Parainfluenza 2 (PCR) (NotDetected) Parainfluenza 3 (PCR) (NotDetected) Parainfluenza 4 (PCR) (NotDetected) RSV (PCR) (NotDetected) Entero/Rhino (PCR) (NotDetected) Blood Type Antibody Screen Crossmatch 11/16/22 11/16/22 11/16/22 Range/Units 19:02 21:25 21:25 WBC (4.8-10.8) K/ul RBC (4.20-5.40) M/uL Hgb 7.5 L (12.0-16.0) g/dl Hct 24.3 L (37.0-47.0) % MCV (80.0-100.0) fL MCH (25.0-34.0) pg MCHC (32.0-36.0) g/dL RDW Std Deviation (36.4-46.3) fL RDW Coeff of Fabio (11.5-14.5) % Plt Count (130-400) K/uL MPV (9.4-12.4) fL Immature Gran % (Auto) % Neut % (Auto) % Lymph % (Auto) % [place] % (Auto) % Eos % (Auto) % Baso % (Auto) % Neut # (Auto) (1.40-6.50) K/uL Lymph # (Auto) (1.20-3.40) K/uL [place] # (Auto) (0.11-0.59) K/uL Eos # (Auto) (0.00-0.50) K/uL Baso # (Auto) (0.00-0.20) K/uL Immature Gran # (Auto) (0.01-0.20) K/uL Absolute Nucleated RBC (0.00-0.12) K/uL Nucleated RBC % (auto) % Polychromasia Spherocytes PT (9.0-12.0) Seconds INR (0.9-1.1) APTT (21.0-31.0) Seconds PTT Ratio VBG pH (7.36-7.41) VBG pCO2 (38-50) mmHg VBG pO2 mmHg VBG HCO3 mmol/L VBG O2 Saturation % VBG Base Excess mEq/L Sodium (136-145) mmol/L Potassium (3.5-5.1) mmol/L Chloride (98-107) mmol/L Carbon Dioxide (21-32) mmol/L Anion Gap (3-11) BUN (6-23) mg/dl Creatinine (0.6-1.2) mg/dl Est Cr Clr Drug Dosing Est GFR ( Amer) ml/min Est GFR (Non-Af Amer) ml/min BUN/Creatinine Ratio (10-20) Glucose (70-99(Fasting)) mg/dl POC Glucose (70-99) mg/dl Lactate (0.4-2.0) mmol/L Calcium (8.6-10.3) mg/dl Magnesium (1.7-2.4) mg/dl Total Bilirubin (0.2-1.0) mg/dl AST (13-39) U/L ALT (7-52) U/L Alkaline Phosphatase (34-104) U/L Ammonia (18-72) umol/L Total Creatine Kinase (26-192) U/L B-Natriuretic Peptide (0-100) pg/ml Total Protein (6.0-8.3) gm/dl Albumin (3.4-5.0) gm/dl Globulin (2.5-4.0) gm/dl Albumin/Globulin Ratio (0.9-2) Procalcitonin (0-0.5) ng/ml Urine Color Urine Appearance (Clear) Urine pH (4.5-7.5) Ur Specific [place] (1.000-1.030) Urine Protein (Negative) Urine Glucose (UA) (Negative) Urine Ketones (Negative) Urine Blood (Negative) Urine Nitrite (Negative) Urine Bilirubin (Negative) Urine Urobilinogen (Negative) Ur Leukocyte Esterase (Negative) Urine WBC (Auto) (0-5) /hpf Urine RBC (Auto) (0-4) /hpf U Hyaline Cast (Auto) (0-5) /lpf U Epithel Cells (Auto) (0-5) /lpf Urine Bacteria (Auto) (Negative) Salicylates (3.0-30) mg/dl Urine Opiates Screen (Neg) Ur Methadone, Qual (Neg) Acetaminophen (10-30) ug/ml Urine Barbiturates (Neg) Ur Phencyclidine (PCP) (Neg) U Amphetamin/Meth Scrn (Neg) MDMA (Ecstasy) Screen (Neg) U Benzodiazepines Scrn (Neg) Ur Cocaine Metabolite (Neg) U Marijuana (THC) Screen (Neg) Ethyl Alcohol mg/dL (<10.0) mg/dl Adenovirus (PCR) Not Detected (NotDetected) B. pertussis DNA (PCR) Not Detected (NotDetected) B.parapertussis DNA PCR Not Detected (NotDetected) Lyme Disease IgG Ab (Negative) Lyme Disease IgM Ab (Negative) C. pneumoniae DNA (PCR) Not Detected (NotDetected) Coronavirus OC43 (PCR) Not Detected (NotDetected) Coronavirus HKU1 (PCR) Not Detected (NotDetected) Coronavirus 229E (PCR) Not Detected (NotDetected) SARS-CoV-2 (PCR) Not Detected (NotDetected) Coronavirus NL63 (PCR) Not Detected (NotDetected) Human Metapneumovir PCR Not Detected (NotDetected) Influenza Type A (PCR) Not Detected (NotDetected) Influenza Type B (PCR) Not Detected (NotDetected) M. pneumoniae (PCR) Not Detected (NotDetected) Parainfluenza 1 (PCR) Not Detected (NotDetected) Parainfluenza 2 (PCR) Not Detected (NotDetected) Parainfluenza 3 (PCR) Not Detected (NotDetected) Parainfluenza 4 (PCR) Not Detected (NotDetected) RSV (PCR) Not Detected (NotDetected) Entero/Rhino (PCR) Not Detected (NotDetected) Blood Type A Positive Antibody Screen NEGATIVE Crossmatch See Detail Administered Medications Aspirin (Aspirin 81 Mg Chew) 81 mg PO DAILY [facility] Stop: 12/21/22 08:59 Last Admin: 11/21/22 08:44 Dose: 81 mg Documented By: EDWIN Docusate Sodium (Docusate Sodium Syrup 100 Mg/10 Ml Ud) 100 mg NG BID [facility] Stop: 12/20/22 20:59 Last Admin: 11/21/22 20:37 Dose: Not Given Documented By: Admin: 11/21/22 08:44 Dose: 100 mg Documented By: Admin: 11/20/22 20:42 Dose: 100 mg Documented By: IJEOMA Duloxetine HCl (Duloxetine Hcl 60 Mg Cap) 60 mg GT DAILY SAMANTHA Stop: 12/21/22 11:59 Last Admin: 11/21/22 12:02 Dose: 60 mg Documented By: EDWIN Duloxetine HCl (Duloxetine Hcl 30 Mg Cap) 30 mg PO DAILY [facility] Stop: 12/21/22 11:59 Last Admin: 11/21/22 12:02 Dose: 30 mg Documented By: EDWIN Enoxaparin Sodium (Enoxaparin Inj 40 Mg/0.4 Ml Syr) 40 mg SQ HS SAMANTHA Stop: 12/20/22 20:59 Last Admin: 11/21/22 21:00 Dose: 40 mg Documented By: Admin: 11/20/22 20:41 Dose: 40 mg Documented By: IJEOMA Hydralazine HCl (Hydralazine Hcl 20 Mg/Ml Vial) 10 mg IV Q4 PRN PRN Reason: SBP>150 Stop: 12/19/22 08:20 Last Admin: 11/20/22 00:25 Dose: 10 mg Documented By: Admin: 11/19/22 16:26 Dose: 10 mg Documented By: Admin: 11/19/22 09:19 Dose: 10 mg Documented By: EDWIN Cefepime HCl 2,000 mg/ Syringe 20 mls @ 5 mls/min IV Q12H SAMANTHA Stop: 11/22/22 23:59 Last Admin: 11/21/22 17:40 Dose: 5 mls/min Documented By: Admin: 11/21/22 05:57 Dose: 5 mls/min Documented By: Admin: 11/20/22 17:41 Dose: 5 mls/min Documented By: Admin: 11/20/22 05:29 Dose: 5 mls/min Documented By: Admin: 11/19/22 20:12 Dose: 5 mls/min Documented By: Admin: 11/19/22 06:18 Dose: 5 mls/min Documented By: Admin: 11/18/22 17:31 Dose: 5 mls/min Documented By: Admin: 11/18/22 06:01 Dose: 5 mls/min Documented By: Admin: 11/17/22 18:24 Dose: 5 mls/min Documented By: JACINDA Pantoprazole Sodium 40 mg/ (Syringe) 10 mls @ 5 mls/min IV BID SAMANTHA Stop: 12/19/22 08:59 Last Admin: 11/21/22 20:33 Dose: 5 mls/min Documented By: Admin: 11/21/22 08:53 Dose: 5 mls/min Documented By: Admin: 11/20/22 20:42 Dose: 5 mls/min Documented By: Admin: 11/20/22 09:00 Dose: 5 mls/min Documented By: Admin: 11/19/22 20:12 Dose: 5 mls/min Documented By: Admin: 11/19/22 08:45 Dose: 5 mls/min Documented By: EDWIN Doxycycline Hyclate 100 mg/ (Dextrose) 100 mls @ 50 mls/hr IV Q12H SAMANTHA Stop: 12/05/22 23:59 Last Infusion: 11/21/22 14:48 Dose: 0 mls/hr Documented By: Admin: 11/21/22 11:10 Dose: 50 mls/hr Documented By: EDWIN Insulin Aspart (Insulin Aspart Per Unit Charge) 0 units SC Q4 SAMANTHA Stop: 12/19/22 11:59 Last Admin: 11/21/22 20:37 Dose: Not Given Documented By: Admin: 11/21/22 17:39 Dose: 3 units Documented By: EDWIN Co-signed By: ZARA Admin: 11/21/22 12:21 Dose: 1 units Documented By: EDWIN Co-signed By: ANUSHA Admin: 11/21/22 08:54 Dose: 1 units Documented By: EDWIN Co-signed By: ZARA Admin: 11/21/22 03:18 Dose: 1 units Documented By: IJEOMA Co-signed By: SYLWIA Admin: 11/21/22 01:34 Dose: Not Given Documented By: Admin: 11/20/22 20:38 Dose: Not Given Documented By: Admin: 11/20/22 16:37 Dose: Not Given Documented By: Admin: 11/20/22 12:25 Dose: 6 units Documented By: EDWIN Co-signed By: AM Insulin Glargine (Lantus Per Unit Charge) 0 units SC BID SAMANTHA; Protocol Stop: 12/21/22 09:14 Last Admin: 11/21/22 20:59 Dose: 10 units Documented By: IJEOMA Co-signed By: RIGO Admin: 11/21/22 11:07 Dose: 10 units Documented By: EDWIN Co-signed By: ANUSHA Ipratropium [place] (Ipratropium [place] Neb Soln 0.02% 2.5 Ml Vial) 0.5 mg INH Q6R SAMANTHA Stop: 12/19/22 06:59 Last Admin: 11/21/22 19:35 Dose: 0.5 mg Documented By: Admin: 11/21/22 13:28 Dose: 0.5 mg Documented By: Admin: 11/21/22 07:36 Dose: 0.5 mg Documented By: Admin: 11/21/22 01:34 Dose: 0.5 mg Documented By: Admin: 11/20/22 19:45 Dose: 0.5 mg Documented By: Admin: 11/20/22 11:47 Dose: 0.5 mg Documented By: Admin: 11/20/22 07:24 Dose: 0.5 mg Documented By: Admin: 11/19/22 23:53 Dose: 0.5 mg Documented By: Admin: 11/19/22 20:20 Dose: 0.5 mg Documented By: Admin: 11/19/22 14:27 Dose: Not Given Documented By: [facility] Admin: 11/19/22 07:18 Dose: 0.5 mg Documented By: [facility] Ketorolac Tromethamine (Ketorolac Tromethamine 15 Mg/Ml Vial) 15 mg IV Q6H PRN PRN Reason: Mod-Sev Pain (Scale 4-10) Stop: 11/23/22 09:32 Last Admin: 11/18/22 09:57 Dose: 15 mg Documented By: [id number] Levalbuterol HCl (Levalbuterol 1.25 Mg/3 Ml Neb) 1.25 mg NEB Q6R SAMANTHA Stop: 12/19/22 06:59 Last Admin: 11/21/22 19:35 Dose: 1.25 mg Documented By: Admin: 11/21/22 13:28 Dose: 1.25 mg Documented By: Admin: 11/21/22 07:36 Dose: 1.25 mg Documented By: Admin: 11/21/22 01:34 Dose: 1.25 mg Documented By: Admin: 11/20/22 19:45 Dose: 1.25 mg Documented By: Admin: 11/20/22 11:47 Dose: 1.25 mg Documented By: Admin: 11/20/22 07:24 Dose: 1.25 mg Documented By: Admin: 11/19/22 23:53 Dose: 1.25 mg Documented By: Admin: 11/19/22 20:20 Dose: 1.25 mg Documented By: Admin: 11/19/22 14:28 Dose: Not Given Documented By: Admin: 11/19/22 07:18 Dose: 1.25 mg Documented By: MIGUEL Metoprolol Tartrate (Metoprolol Tartrate 25 Mg Tab) 25 mg OG BID [facility] Stop: 12/20/22 20:59 Last Admin: 11/21/22 08:44 Dose: 25 mg Documented By: Admin: 11/20/22 20:40 Dose: 25 mg Documented By: IJEOMA Miscellaneous (Icu Electrolyte Replacement Protocol) 1 each N/A BID@ [facility]; Protocol Stop: 11/26/22 17:59 Last Admin: 11/21/22 18:27 Dose: 1 each Documented By: Admin: 11/21/22 05:56 Dose: 1 each Documented By: Admin: 11/20/22 18:11 Dose: 1 each Documented By: Admin: 11/20/22 05:38 Dose: 1 each Documented By: Admin: 11/19/22 18:40 Dose: 1 each Documented By: EDWIN Multivitamins/Minerals (Multi Vit W/Minerals Liquid 15 Ml Udp) 15 ml NG QAM [facility] Stop: 12/21/22 08:59 Last Admin: 11/21/22 08:43 Dose: 15 ml Documented By: EDWIN Propofol (Propofol Bolus From Bag) 20 mg IV Q5M PRN PRN Reason: Sedation Stop: 11/23/22 10:36 Last Admin: 11/21/22 05:12 Dose: 20 mg Documented By: IJEOMA Co-signed By: SYLWIA Admin: 11/21/22 02:33 Dose: 20 mg Documented By: IJEOMA Co-signed By: SYLWIA Admin: 11/20/22 20:46 Dose: 20 mg Documented By: IJEOMA Co-signed By: SYLWIA Admin: 11/20/22 10:52 Dose: 20 mg Documented By: EDWIN Co-signed By: CHUN Sennosides (Sennosides 8.8 Mg/5 Ml Udc) 8.8 mg PO QAM SAMANTHA Stop: 12/21/22 08:59 Last Admin: 11/21/22 08:43 Dose: 8.8 mg Documented By: EDWIN Topiramate (Topiramate 50 Mg Tab) 50 mg PO BID [facility] Stop: 12/21/22 10:59 Last Admin: 11/21/22 20:37 Dose: Not Given Documented By: Admin: 11/21/22 12:02 Dose: 50 mg Documented By: EDWIN Discontinued Medications Albuterol (Albut/Ipratrop 3mg/0.5mg Neb 3 Ml Vial) 3 ml INH NOW STA Stop: 11/16/22 15:45 Last Admin: 11/16/22 15:53 Dose: 3 ml Documented By: GERALDO Aspirin (Aspirin 81 Mg Ectab) 81 mg PO DAILY [facility] Stop: 12/17/22 08:59 Last Admin: 11/20/22 08:44 Dose: Not Given Documented By: Admin: 11/19/22 13:14 Dose: Not Given Documented By: Admin: 11/18/22 09:07 Dose: Not Given Documented By: [id number] Admin: 11/17/22 09:24 Dose: Not Given Documented By: GPDavid Cetirizine HCl (Cetirizine Hcl 10 Mg Tablet) 10 mg PO DAILY [facility] Stop: 12/17/22 08:59 Last Admin: 11/18/22 09:07 Dose: Not Given Documented By: [id number] Admin: 11/17/22 09:25 Dose: Not Given Documented By: GPDavid Clopidogrel Bisulfate (Clopidogrel Bisulfate 75 Mg Tab) 75 mg PO DAILY [facility] Stop: 12/17/22 08:59 Last Admin: 11/18/22 09:07 Dose: Not Given Documented By: [id number] Admin: 11/17/22 09:25 Dose: Not Given Documented By: GPF Fentanyl Citrate (Fentanyl Citrate 2,500 Mcg/250 Ml Bag) Confirm Administered Dose 2,500 mcg IV .STK-MED ONE Stop: 11/20/22 09:34 Last Admin: 11/20/22 10:08 Dose: Not Given Documented By: EDWIN Fentanyl Citrate (Fentanyl Bolus From Bag) 50 mcg IV Q60M PRN PRN Reason: Pain or Agitation Stop: 12/04/22 10:36 Last Admin: 11/21/22 05:12 Dose: 50 mcg Documented By: IJEOMA Co-signed By: SYLWIA Admin: 11/21/22 02:34 Dose: 50 mcg Documented By: IJEOMA Co-signed By: SYLWIA Admin: 11/20/22 20:45 Dose: 50 mcg Documented By: IJEOMA Co-signed By: TP Admin: 11/20/22 10:00 Dose: 50 mcg Documented By: EDWIN Co-signed By: AM Furosemide (Furosemide 40 Mg/4 Ml Vial) 40 mg IV ONE ONE Stop: 11/17/22 00:27 Last Admin: 11/17/22 01:34 Dose: 40 mg Documented By: HFS Furosemide (Furosemide Inj 20 Mg/2 Ml Vial) 20 mg IV ONE ONE Stop: 11/18/22 20:00 Last Admin: 11/18/22 21:05 Dose: 20 mg Documented By: FABIANO Furosemide (Furosemide 40 Mg/4 Ml Vial) 40 mg IV ONE ONE Stop: 11/19/22 02:31 Last Admin: 11/19/22 03:07 Dose: 40 mg Documented By: IJEOMA Furosemide (Furosemide 40 Mg/4 Ml Vial) 40 mg IV ONE ONE Stop: 11/19/22 12:56 Last Admin: 11/19/22 13:14 Dose: 40 mg Documented By: EDWIN Gadobutrol (Gadobutrol 30ml Vial) 6.4 ml IV ONCE ONE Stop: 11/20/22 13:14 Last Admin: 11/20/22 13:13 Dose: 6.4 ml Documented By: CHARBEL Haloperidol Lactate (Haloperidol Lactate 5 Mg/Ml 1 Ml Vial) 2.5 mg IV NOW STA Stop: 11/19/22 08:13 Last Admin: 11/19/22 08:39 Dose: Not Given Documented By: EDWIN Haloperidol Lactate (Haloperidol Lactate 5 Mg/Ml 1 Ml Vial) 5 mg IV NOW STA Stop: 11/19/22 08:13 Last Admin: 11/19/22 08:33 Dose: 5 mg Documented By: EDWIN Haloperidol Lactate (Haloperidol Lactate 5 Mg/Ml 1 Ml Vial) Confirm Administered Dose 5 mg .ROUTE .STK-MED ONE Stop: 11/19/22 19:51 Last Admin: 11/19/22 20:43 Dose: Not Given Documented By: IJEOMA Haloperidol Lactate (Haloperidol Lactate 5 Mg/Ml 1 Ml Vial) 5 mg IM NOW STA Stop: 11/19/22 20:10 Last Admin: 11/19/22 20:43 Dose: 5 mg Documented By: IJEOMA Heparin Sodium (Porcine) (Heparin Sod 5,000 Unit/0.5 Ml Vial) 5,000 units SQ Q8H SAMANTHA Stop: 12/17/22 00:00 Last Admin: 11/18/22 16:32 Dose: 5,000 units Documented By: Admin: 11/18/22 09:09 Dose: 5,000 units Documented By: [id number] Admin: 11/18/22 00:11 Dose: 5,000 units Documented By: Admin: 11/17/22 17:24 Dose: 5,000 units Documented By: Admin: 11/17/22 09:16 Dose: 5,000 units Documented By: Admin: 11/17/22 01:02 Dose: 5,000 units Documented By: KRT Cefepime HCl (Maxipime) 2,000 mg in 20 mls @ 5 mls/min IV NOW STA; Protocol Stop: 11/16/22 16:51 Last Admin: 11/16/22 17:22 Dose: 5 mls/min Documented By: RON Sodium Chloride (Nss) 250 mls @ 999 mls/hr IV .Q16M ONE Stop: 11/16/22 17:03 Last Infusion: 11/17/22 02:40 Dose: 0 mls/hr Documented By: Admin: 11/16/22 17:22 Dose: 999 mls/hr Documented By: DMJennifer Albumin Human (Albumin 25%) 25 gm in 100 mls @ 50 mls/hr IV ONE ONE Stop: 11/16/22 22:34 Last Infusion: 11/17/22 02:40 Dose: 0 mls/hr Documented By: Admin: 11/17/22 00:17 Dose: 50 mls/hr Documented By: KRT Acetaminophen (Ofirmev) 1,000 mg in 100 mls @ 400 mls/hr IV NOW STA Stop: 11/16/22 21:43 Last Infusion: 11/17/22 00:31 Dose: 0 mls/hr Documented By: Admin: 11/16/22 23:46 Dose: 400 mls/hr Documented By: KRT Albumin Human (Albumin 25%) 25 gm in 100 mls @ 50 mls/hr IV Q8H SAMANTHA Stop: 11/20/22 05:59 Last Infusion: 11/19/22 08:09 Dose: 0 mls/hr Documented By: Admin: 11/19/22 05:58 Dose: 50 mls/hr Documented By: Infusion: 11/19/22 00:32 Dose: 0 mls/hr Documented By: Admin: 11/18/22 22:32 Dose: 50 mls/hr Documented By: Infusion: 11/18/22 14:53 Dose: 0 mls/hr Documented By: [id number] Admin: 11/18/22 12:50 Dose: 50 mls/hr Documented By: [id number] Infusion: 11/18/22 08:03 Dose: 0 mls/hr Documented By: Admin: 11/18/22 06:02 Dose: 50 mls/hr Documented By: Infusion: 11/18/22 00:18 Dose: 0 mls/hr Documented By: Admin: 11/17/22 22:18 Dose: 50 mls/hr Documented By: Infusion: 11/17/22 16:23 Dose: 0 mls/hr Documented By: Admin: 11/17/22 14:33 Dose: 50 mls/hr Documented By: Infusion: 11/17/22 07:55 Dose: 0 mls/hr Documented By: Admin: 11/17/22 05:19 Dose: 50 mls/hr Documented By: KRT Magnesium Sulfate/Dextrose (Magnesium Sulfate / D5w) 1 gm in 100 mls @ 50 mls/hr IV ONE ONE Stop: 11/17/22 07:44 Last Infusion: 11/17/22 07:55 Dose: 0 mls/hr Documented By: Admin: 11/17/22 06:06 Dose: 50 mls/hr Documented By: KRT Vancomycin HCl 1,250 mg/ (Sodium Chloride) 525 mls @ 200 mls/hr IV NOW ONE Stop: 11/17/22 20:02 Last Admin: 11/17/22 18:23 Dose: 200 mls/hr Documented By: GPF Metronidazole (Flagyl) 500 mg in 100 mls @ 100 mls/hr IV Q8H SAMANTHA Stop: 11/19/22 17:59 Last Infusion: 11/19/22 11:02 Dose: 0 mls/hr Documented By: Admin: 11/19/22 09:29 Dose: 100 mls/hr Documented By: Infusion: 11/19/22 04:28 Dose: 0 mls/hr Documented By: Admin: 11/19/22 03:10 Dose: 100 mls/hr Documented By: Infusion: 11/18/22 18:31 Dose: 0 mls/hr Documented By: Admin: 11/18/22 17:31 Dose: 100 mls/hr Documented By: Infusion: 11/18/22 10:18 Dose: 0 mls/hr Documented By: [id number] Admin: 11/18/22 09:09 Dose: 100 mls/hr Documented By: [id number] Infusion: 11/18/22 03:03 Dose: 0 mls/hr Documented By: Admin: 11/18/22 02:03 Dose: 100 mls/hr Documented By: Infusion: 11/17/22 19:30 Dose: 0 mls/hr Documented By: Admin: 11/17/22 18:24 Dose: 100 mls/hr Documented By: JACINDA Vancomycin HCl 1,250 mg/ (Sodium Chloride) 275 mls @ 200 mls/hr IV Q24H SAMANTHA Stop: 11/20/22 09:59 Last Admin: 11/19/22 10:12 Dose: Not Given Documented By: Infusion: 11/18/22 11:48 Dose: 0 mls/hr Documented By: [id number] Admin: 11/18/22 10:03 Dose: 200 mls/hr Documented By: [id number] Doxycycline Hyclate 100 mg/ (Dextrose) 100 mls @ 50 mls/hr IV Q12H SAMANTHA Stop: 11/27/22 19:14 Last Infusion: 11/18/22 21:28 Dose: 0 mls/hr Documented By: Admin: 11/18/22 19:28 Dose: 50 mls/hr Documented By: JOSE GUADALUPE Infusion: 11/18/22 10:18 Dose: 0 mls/hr Documented By: [id number] Admin: 11/18/22 08:12 Dose: 50 mls/hr Documented By: Infusion: 11/17/22 21:59 Dose: 0 mls/hr Documented By: Admin: 11/17/22 19:49 Dose: 50 mls/hr Documented By: FABIANO Acetaminophen (Ofirmev) 1,000 mg in 100 mls @ 400 mls/hr IV NOW STA Stop: 11/17/22 19:38 Last Infusion: 11/17/22 20:30 Dose: 0 mls/hr Documented By: Admin: 11/17/22 19:48 Dose: 400 mls/hr Documented By: FABIANO Potassium Phosphate 15 mmol/ (Sodium Chloride) 255 mls @ 88 mls/hr IV ONE ONE Stop: 11/18/22 12:08 Last Infusion: 11/18/22 13:23 Dose: 0 mls/hr Documented By: [id number] Admin: 11/18/22 10:03 Dose: 88 mls/hr Documented By: [id number] Acetaminophen (Ofirmev) 1,000 mg in 100 mls @ 400 mls/hr IV Q8H PRN PRN Reason: Mild Pain (Scale 1, 2, 3) Stop: 11/21/22 09:32 Last Infusion: 11/21/22 11:22 Dose: 0 mls/hr Documented By: Admin: 11/21/22 08:53 Dose: 400 mls/hr Documented By: Infusion: 11/20/22 11:07 Dose: 0 mls/hr Documented By: Admin: 11/20/22 10:47 Dose: 400 mls/hr Documented By: Infusion: 11/20/22 05:40 Dose: 0 mls/hr Documented By: Admin: 11/20/22 05:24 Dose: 400 mls/hr Documented By: Infusion: 11/19/22 12:55 Dose: 0 mls/hr Documented By: Admin: 11/19/22 12:25 Dose: 420 mls/hr Documented By: Infusion: 11/18/22 20:32 Dose: 0 mls/hr Documented By: JOSE GUADALUPE Admin: 11/18/22 20:17 Dose: 400 mls/hr Documented By: JOSE GUADALUPE Infusion: 11/18/22 12:14 Dose: 0 mls/hr Documented By: [id number] Admin: 11/18/22 11:50 Dose: 400 mls/hr Documented By: [id number] Potassium Chloride (K Jerry / Wtr) 10 meq in 100 mls @ 100 mls/hr IV Q1H SAMANTHA Stop: 11/19/22 00:14 Last Infusion: 11/19/22 04:28 Dose: 0 mls/hr Documented By: Admin: 11/19/22 03:11 Dose: 100 mls/hr Documented By: Infusion: 11/19/22 01:34 Dose: 100 mls/hr Documented By: Admin: 11/19/22 00:34 Dose: 100 mls/hr Documented By: Infusion: 11/19/22 00:29 Dose: 0 mls/hr Documented By: Admin: 11/18/22 23:29 Dose: 100 mls/hr Documented By: Infusion: 11/18/22 22:35 Dose: 100 mls/hr Documented By: Admin: 11/18/22 21:35 Dose: 100 mls/hr Documented By: FABIANO Methylprednisolone 20 mg/ (Syringe) 0.32 mls @ 1.5 mls/min IV NOW ONE Stop: 11/19/22 00:16 Last Admin: 11/19/22 01:42 Dose: Not Given Documented By: IJEOMA Dexmedetomidine/Sodium Chloride (Precedex) 200 mcg in 50 mls @ 0 mls/hr IV .Q0M SAMANTHA; Protocol Stop: 11/23/22 01:29 Last Titration: 11/20/22 09:48 Dose: 0 mcg/kg/hr, 0 mls/hr Documented By: Titration: 11/20/22 09:00 Dose: 0 mcg/kg/hr, 0 mls/hr Documented By: Admin: 11/20/22 08:41 Dose: Not Given Documented By: Titration: 11/20/22 08:41 Dose: 0.4 mcg/kg/hr, 6.3 mls/hr Documented By: Titration: 11/20/22 08:30 Dose: 0.5 mcg/kg/hr, 7.8 mls/hr Documented By: Titration: 11/20/22 08:09 Dose: 0.6 mcg/kg/hr, 9.4 mls/hr Documented By: Titration: 11/20/22 07:13 Dose: 0.7 mcg/kg/hr, 10.9 mls/hr Documented By: IJEOMA Co-signed By: EDWIN Titration: 11/20/22 06:40 Dose: 0.8 mcg/kg/hr, 12.5 mls/hr Documented By: Titration: 11/20/22 06:25 Dose: 0.9 mcg/kg/hr, 14.1 mls/hr Documented By: Titration: 11/20/22 06:10 Dose: 1 mcg/kg/hr, 15.6 mls/hr Documented By: Admin: 11/20/22 05:54 Dose: 1.1 mcg/kg/hr, 17.2 mls/hr Documented By: SUSAN Co-signed By: IJEOMA Titration: 11/20/22 05:54 Dose: 1.2 mcg/kg/hr, 18.8 mls/hr Documented By: SUSAN Co-signed By: IJEOMA Admin: 11/20/22 05:40 Dose: Not Given Documented By: Admin: 11/20/22 05:36 Dose: Not Given Documented By: Admin: 11/20/22 05:35 Dose: Not Given Documented By: Titration: 11/20/22 05:25 Dose: 1.2 mcg/kg/hr, 18.8 mls/hr Documented By: Titration: 11/20/22 05:09 Dose: 1.3 mcg/kg/hr, 20.3 mls/hr Documented By: Titration: 11/20/22 04:54 Dose: 1.4 mcg/kg/hr, 21.9 mls/hr Documented By: Admin: 11/20/22 03:42 Dose: 1.5 mcg/kg/hr, 23.5 mls/hr Documented By: SUSAN Co-signed By: OLGA Titration: 11/20/22 03:40 Dose: 1.5 mcg/kg/hr, 23.5 mls/hr Documented By: SUSAN Co-signed By: OLGA Admin: 11/20/22 01:32 Dose: 1.5 mcg/kg/hr, 23.5 mls/hr Documented By: IJEOMA Co-signed By: SUSAN Titration: 11/20/22 01:32 Dose: 1.5 mcg/kg/hr, 23.5 mls/hr Documented By: IJEOMA Co-signed By: SUSAN Admin: 11/19/22 23:38 Dose: 1.5 mcg/kg/hr, 23.5 mls/hr Documented By: SUSAN Co-signed By: IJEOMA Titration: 11/19/22 23:38 Dose: 1.5 mcg/kg/hr, 23.5 mls/hr Documented By: SUSAN Co-signed By: IJEOMA Admin: 11/19/22 22:52 Dose: Not Given Documented By: Titration: 11/19/22 22:50 Dose: 1.4 mcg/kg/hr, 21.9 mls/hr Documented By: SUSAN Co-signed By: OLGA Admin: 11/19/22 22:50 Dose: 1.5 mcg/kg/hr, 23.5 mls/hr Documented By: SUSAN Co-signed By: OLGA Titration: 11/19/22 21:00 Dose: 1.4 mcg/kg/hr, 21.9 mls/hr Documented By: Admin: 11/19/22 20:45 Dose: 1.2 mcg/kg/hr, 18.8 mls/hr Documented By: IJEOMA Co-signed By: SUSAN Titration: 11/19/22 20:45 Dose: 1.3 mcg/kg/hr, 20.3 mls/hr Documented By: IJEOMA Co-signed By: SUSAN Titration: 11/19/22 20:30 Dose: 1.2 mcg/kg/hr, 18.8 mls/hr Documented By: Titration: 11/19/22 20:15 Dose: 1.1 mcg/kg/hr, 17.2 mls/hr Documented By: Titration: 11/19/22 20:00 Dose: 1 mcg/kg/hr, 15.6 mls/hr Documented By: Titration: 11/19/22 19:45 Dose: 0.9 mcg/kg/hr, 14.1 mls/hr Documented By: Titration: 11/19/22 19:30 Dose: 0.8 mcg/kg/hr, 12.5 mls/hr Documented By: Admin: 11/19/22 18:35 Dose: Not Given Documented By: Titration: 11/19/22 17:27 Dose: 0.7 mcg/kg/hr, 10.9 mls/hr Documented By: Admin: 11/19/22 17:25 Dose: 0.8 mcg/kg/hr, 12.5 mls/hr Documented By: EDWIN Co-signed By: ANUSHA(2) Titration: 11/19/22 17:08 Dose: 0.8 mcg/kg/hr, 12.5 mls/hr Documented By: EDWIN Co-signed By: ANUSHA(2) Admin: 11/19/22 16:19 Dose: Not Given Documented By: Titration: 11/19/22 16:18 Dose: 0.8 mcg/kg/hr, 12.5 mls/hr Documented By: Admin: 11/19/22 16:18 Dose: Not Given Documented By: Admin: 11/19/22 16:18 Dose: Not Given Documented By: Titration: 11/19/22 15:30 Dose: 0.9 mcg/kg/hr, 14.1 mls/hr Documented By: Titration: 11/19/22 15:16 Dose: 1 mcg/kg/hr, 15.6 mls/hr Documented By: Admin: 11/19/22 13:57 Dose: 1.2 mcg/kg/hr, 18.8 mls/hr Documented By: HLK Co-signed By: ISABELL(2) Titration: 11/19/22 13:40 Dose: 0 mcg/kg/hr, 0 mls/hr Documented By: Admin: 11/19/22 11:00 Dose: 1.2 mcg/kg/hr, 18.8 mls/hr Documented By: HLK Co-signed By: LUKE Titration: 11/19/22 10:55 Dose: 1.2 mcg/kg/hr, 18.8 mls/hr Documented By: HLK Co-signed By: LUKE Admin: 11/19/22 08:15 Dose: 1.2 mcg/kg/hr, 18.8 mls/hr Documented By: HLK Co-signed By: ANUSHA(2) Titration: 11/19/22 08:10 Dose: 0 mcg/kg/hr, 0 mls/hr Documented By: Titration: 11/19/22 07:15 Dose: 1.2 mcg/kg/hr, 18.8 mls/hr Documented By: ELS Co-signed By: HLK Titration: 11/19/22 06:37 Dose: 1.2 mcg/kg/hr, 18.8 mls/hr Documented By: Titration: 11/19/22 06:15 Dose: 1.1 mcg/kg/hr, 17.2 mls/hr Documented By: Titration: 11/19/22 05:30 Dose: 1 mcg/kg/hr, 15.6 mls/hr Documented By: Admin: 11/19/22 05:14 Dose: 0.9 mcg/kg/hr, 14.1 mls/hr Documented By: IJEOMA Co-signed By: TP Titration: 11/19/22 05:14 Dose: 0.9 mcg/kg/hr, 14.1 mls/hr Documented By: IJEOMA Co-signed By: TP Titration: 11/19/22 04:51 Dose: 0.9 mcg/kg/hr, 14.1 mls/hr Documented By: Titration: 11/19/22 04:39 Dose: 0.8 mcg/kg/hr, 12.5 mls/hr Documented By: Titration: 11/19/22 03:48 Dose: 0.7 mcg/kg/hr, 10.9 mls/hr Documented By: Titration: 11/19/22 03:07 Dose: 0.6 mcg/kg/hr, 9.4 mls/hr Documented By: Titration: 11/19/22 02:08 Dose: 0.5 mcg/kg/hr, 7.8 mls/hr Documented By: Admin: 11/19/22 01:44 Dose: 0.4 mcg/kg/hr, 6.3 mls/hr Documented By: IJEOMA Co-signed By: ANA Potassium Phosphate 21 mmol/ (Sodium Chloride) 507 mls @ 88 mls/hr IV ONE ONE Stop: 11/19/22 14:00 Last Infusion: 11/19/22 15:21 Dose: 0 mls/hr Documented By: Admin: 11/19/22 08:45 Dose: 88 mls/hr Documented By: EDWIN Vancomycin HCl 1,250 mg/ (Dextrose) 275 mls @ 200 mls/hr IV Q24H [facility] Stop: 11/26/22 10:29 Last Infusion: 11/20/22 12:50 Dose: 0 mls/hr Documented By: Admin: 11/20/22 10:09 Dose: 200 mls/hr Documented By: Infusion: 11/19/22 11:44 Dose: 0 mls/hr Documented By: Admin: 11/19/22 10:19 Dose: 200 mls/hr Documented By: EDWIN Magnesium Sulfate/Dextrose (Magnesium Sulfate / D5w) 1 gm in 100 mls @ 50 mls/hr IV Q2H SAMANTHA Stop: 11/20/22 09:44 Last Infusion: 11/20/22 11:08 Dose: 0 mls/hr Documented By: Admin: 11/20/22 09:01 Dose: 50 mls/hr Documented By: Infusion: 11/20/22 08:00 Dose: 0 mls/hr Documented By: Admin: 11/20/22 05:51 Dose: 50 mls/hr Documented By: SUSAN Propofol (Diprivan) 1,000 mg in 100 mls @ 0 mls/hr IV .Q0M SAMANTHA; Protocol Stop: 11/23/22 10:44 Last Titration: 11/21/22 14:42 Dose: 0 mcg/kg/min, 0 mls/hr Documented By: Admin: 11/21/22 11:21 Dose: Not Given Documented By: Admin: 11/21/22 11:21 Dose: Not Given Documented By: Titration: 11/21/22 11:05 Dose: 0 mcg/kg/min, 0 mls/hr Documented By: Admin: 11/21/22 03:11 Dose: 25 mcg/kg/min, 9.7 mls/hr Documented By: IJEOMA Co-signed By: SYLWIA Titration: 11/21/22 03:11 Dose: 25 mcg/kg/min, 9.7 mls/hr Documented By: IJEOMA Co-signed By: SYLWIA Admin: 11/21/22 01:34 Dose: Not Given Documented By: Titration: 11/20/22 20:46 Dose: 25 mcg/kg/min, 9.7 mls/hr Documented By: Admin: 11/20/22 18:14 Dose: 20 mcg/kg/min, 7.8 mls/hr Documented By: EDWIN Co-signed By: ANUSHA(2) Titration: 11/20/22 18:10 Dose: 0 mcg/kg/min, 0 mls/hr Documented By: Titration: 11/20/22 14:47 Dose: 25 mcg/kg/min, 9.7 mls/hr Documented By: Titration: 11/20/22 14:11 Dose: 30 mcg/kg/min, 11.6 mls/hr Documented By: Titration: 11/20/22 11:00 Dose: 35 mcg/kg/min, 13.6 mls/hr Documented By: Titration: 11/20/22 10:30 Dose: 30 mcg/kg/min, 11.6 mls/hr Documented By: Titration: 11/20/22 10:00 Dose: 25 mcg/kg/min, 9.7 mls/hr Documented By: Admin: 11/20/22 09:10 Dose: 20 mcg/kg/min, 7.8 mls/hr Documented By: EDWIN Co-signed By: AM Fentanyl Citrate (Fentanyl Citrate) 2,500 mcg in 250 mls @ 0 mls/hr IV .Q0M SAMANTHA; Protocol Stop: 12/04/22 10:44 Last Titration: 11/21/22 14:50 Dose: 0 mcg/hr, 0 mls/hr Documented By: EDWIN Co-signed By: CB Titration: 11/21/22 11:05 Dose: 0 mcg/hr, 0 mls/hr Documented By: EDWIN Co-signed By: ANUSHA Titration: 11/20/22 20:46 Dose: 75 mcg/hr, 7.5 mls/hr Documented By: IJEOMA Co-signed By: TP Titration: 11/20/22 11:12 Dose: 50 mcg/hr, 5 mls/hr Documented By: EDWIN Co-signed By: ANUSHA(2) Admin: 11/20/22 09:30 Dose: 25 mcg/hr, 2.5 mls/hr Documented By: EDWIN Co-signed By: AM Vancomycin HCl 1,000 mg/ (Dextrose) 270 mls @ 200 mls/hr IV NOW ONE Stop: 11/21/22 13:05 Last Infusion: 11/21/22 14:47 Dose: 0 mls/hr Documented By: Admin: 11/21/22 12:03 Dose: 200 mls/hr Documented By: EDWIN Insulin Aspart (Insulin Aspart Per Unit Charge) [facility] Stop: 12/16/22 23:34 Last Admin: 11/18/22 17:08 Dose: Not Given Documented By: Admin: 11/18/22 12:23 Dose: 7 units Documented By: [id number] Co-signed By: STEVAN Admin: 11/18/22 09:17 Dose: 5 units Documented By: [id number] Co-signed By: FACUNDO Admin: 11/17/22 20:39 Dose: 3 units Documented By: FABIANO Co-signed By: QI Admin: 11/17/22 17:49 Dose: 9 units Documented By: JACINDA Co-signed By: RAMÓN Admin: 11/17/22 12:53 Dose: 6 units Documented By: GPDavid Co-signed By: STEVAN Admin: 11/17/22 09:17 Dose: 1 units Documented By: JACINDA Co-signed By: RAMÓN Admin: 11/17/22 00:37 Dose: 4 units Documented By: JOMAR Co-signed By: ERIKA Insulin Aspart (Insulin Aspart Per Unit Charge) 0 units SC Q6 SAMANTHA Stop: 12/18/22 17:59 Last Admin: 11/19/22 05:58 Dose: 4 units Documented By: IJEOMA Co-signed By: JOSE GUADALUPE Admin: 11/19/22 00:18 Dose: 3 units Documented By: JOSE GUADALUPE Co-signed By: MAIDA Admin: 11/18/22 18:01 Dose: Not Given Documented By: ISABELL Insulin Aspart (Insulin Aspart Per Unit Charge) 0 units SC ACHS SAMANTHA Stop: 12/18/22 17:59 Last Admin: 11/20/22 12:52 Dose: Not Given Documented By: Admin: 11/20/22 08:50 Dose: 2 units Documented By: EDWIN Co-signed By: HYUN Admin: 11/19/22 20:22 Dose: 7 units Documented By: IJEOMA Co-signed By: SUSAN Admin: 11/19/22 17:46 Dose: 3 units Documented By: EDWIN Co-signed By: ANUSHA(2) Admin: 11/19/22 12:01 Dose: 9 units Documented By: EDWIN Co-signed By: ZARA Insulin Aspart (Insulin Aspart Per Unit Charge) 0 units SC 0000,0400 SAMANTHA Stop: 11/20/22 04:01 Last Admin: 11/20/22 04:22 Dose: 2 units Documented By: SUSAN Co-signed By: JOSE GUADALUPE Admin: 11/20/22 00:27 Dose: 1 units Documented By: IJEOMA Co-signed By: JOSE GUADALUPE Insulin Glargine (Lantus Per Unit Charge) 5 units SQ NOW STA Stop: 11/17/22 00:13 Last Admin: 11/17/22 00:50 Dose: 5 units Documented By: JOMAR Co-signed By: LINDA Insulin Glargine (Lantus Per Unit Charge) 5 units SQ HS [facility] Stop: 12/17/22 20:59 Last Admin: 11/17/22 20:38 Dose: 5 units Documented By: FABIANO Co-signed By: QI Insulin Glargine (Lantus Per Unit Charge) 5 units SQ BID [facility] Stop: 12/18/22 08:59 Last Admin: 11/18/22 09:18 Dose: 5 units Documented By: [id number] Co-signed By: FACUNDO Insulin Glargine (Lantus Per Unit Charge) 20 units SQ DAILY [facility] Stop: 12/18/22 12:44 Last Admin: 11/19/22 10:12 Dose: Not Given Documented By: Admin: 11/18/22 12:50 Dose: 20 units Documented By: [id number] Co-signed By: STEVAN Insulin Glargine (Lantus Per Unit Charge) 25 units SQ DAILY [facility] Stop: 12/19/22 10:14 Last Admin: 11/19/22 10:17 Dose: 25 units Documented By: EDWIN Co-signed By: ANUSHA(2) Insulin Glargine (Lantus Per Unit Charge) 0 units SQ HS [facility]; Protocol Stop: 12/19/22 20:59 Last Admin: 11/20/22 20:39 Dose: Not Given Documented By: Admin: 11/19/22 20:23 Dose: 10 units Documented By: IJEOMA Co-signed By: SUSAN Insulin Glargine (Lantus Per Unit Charge) 35 units SQ DAILY [facility] Stop: 12/19/22 10:14 Last Admin: 11/20/22 08:51 Dose: 35 units Documented By: EDWIN Co-signed By: HYUN Ioversol (Optiray 320 100ml) 92 ml IV ONCE ONE Stop: 11/16/22 19:43 Last Admin: 11/16/22 19:42 Dose: 92 ml Documented By: PLTammy Ipratropium [place] (Ipratropium [place] Neb Soln 0.02% 2.5 Ml Vial) 0.5 mg INH NOW STA Stop: 11/19/22 00:08 Last Admin: 11/19/22 01:27 Dose: Not Given Documented By: EML Isosorbide Mononitrate (Isosorbide [place] Extended Rel 30 Mg Tabcr) 30 mg PO QAM [facility] Stop: 12/17/22 08:59 Last Admin: 11/20/22 08:44 Dose: Not Given Documented By: Admin: 11/19/22 13:14 Dose: Not Given Documented By: Admin: 11/18/22 09:08 Dose: Not Given Documented By: [id number] Admin: 11/17/22 09:25 Dose: Not Given Documented By: GPF Levalbuterol HCl (Levalbuterol 1.25 Mg/3 Ml Neb) 1.25 mg NEB NOW STA Stop: 11/19/22 00:08 Last Admin: 11/19/22 01:28 Dose: Not Given Documented By: EMHarmony Lorazepam (Lorazepam 2 Mg/1 Ml Vial) 0.25 mg IV NOW STA Stop: 11/16/22 21:34 Last Admin: 11/17/22 00:16 Dose: Not Given Documented By: JOMAR Lorazepam (Lorazepam 2 Mg/1 Ml Vial) 1 mg IV NOW STA Stop: 11/19/22 20:59 Last Admin: 11/19/22 22:55 Dose: Not Given Documented By: SUSAN Lorazepam (Lorazepam 2 Mg/1 Ml Vial) Confirm Administered Dose 2 mg .ROUTE .STK- MED ONE Stop: 11/19/22 21:05 Last Admin: 11/19/22 22:53 Dose: Not Given Documented By: SUSAN Lorazepam (Lorazepam 2 Mg/1 Ml Vial) 1 mg IM NOW STA Stop: 11/19/22 22:29 Last Admin: 11/19/22 22:50 Dose: 1 mg Documented By: SUSAN Metoprolol Succinate (Metoprolol Succ 50mg Ext Rel Tab) 50 mg PO NOW STA Stop: 11/16/22 20:39 Last Admin: 11/16/22 21:02 Dose: 50 mg Documented By: ACC Metoprolol Succinate (Metoprolol Succ 50mg Ext Rel Tab) 100 [facility] [place] [place] Stop: 12/17/22 05:44 Last Admin: 11/17/22 06:36 Dose: Not Given Documented By: KRT Metoprolol Tartrate (Metoprolol Tartrate 1 Mg/Ml Vial) 2.5 mg IV Q6 [facility] Stop: 12/17/22 06:09 Last Admin: 11/19/22 05:59 Dose: 2.5 mg Documented By: Admin: 11/19/22 00:26 Dose: 2.5 mg Documented By: JOSE GUADALUPE Admin: 11/18/22 17:29 Dose: 2.5 mg Documented By: Admin: 11/18/22 11:51 Dose: 2.5 mg Documented By: [id number] Admin: 11/18/22 06:07 Dose: 2.5 mg Documented By: Admin: 11/18/22 00:10 Dose: 2.5 mg Documented By: Admin: 11/17/22 17:24 Dose: 2.5 mg Documented By: Admin: 11/17/22 12:53 Dose: 2.5 mg Documented By: Admin: 11/17/22 06:18 Dose: 2.5 mg Documented By: WANDER Metoprolol Tartrate (Metoprolol Tartrate 1 Mg/Ml Vial) 5 mg IV Q4H SAMANTHA Stop: 12/19/22 09:59 Last Admin: 11/20/22 10:52 Dose: Not Given Documented By: Admin: 11/20/22 05:24 Dose: 5 mg Documented By: Admin: 11/20/22 02:49 Dose: 5 mg Documented By: Admin: 11/19/22 20:44 Dose: 5 mg Documented By: Admin: 11/19/22 18:39 Dose: 5 mg Documented By: Admin: 11/19/22 15:16 Dose: 5 mg Documented By: Admin: 11/19/22 10:17 Dose: 5 mg Documented By: EDWIN Metoprolol Tartrate (Metoprolol Tartrate 25 Mg Tab) 75 mg OG BID SAMANTHA Stop: 12/20/22 11:29 Last Admin: 11/20/22 12:21 Dose: 75 mg Documented By: EDWIN Metoprolol Tartrate (Metoprolol Tartrate 1 Mg/Ml Vial) 5 mg IV NOW STA Stop: 11/21/22 20:42 Last Admin: 11/21/22 21:01 Dose: 5 mg Documented By: IJEOMA Miscellaneous (Rapid Sequence Induction Bag) Confirm Administered Dose 1 each N/A .STK-MED ONE Stop: 11/20/22 08:51 Last Admin: 11/20/22 10:08 Dose: 1 each Documented By: HLK Naloxone HCl (Naloxone Hcl 0.4 Mg/1 Ml Vial/Carp) 0.4 mg IV NOW STA Stop: 11/16/22 15:45 Last Admin: 11/16/22 15:53 Dose: 0.4 mg Documented By: KT Nutritional Formula (Peptamen Intense Vhp 1.0 Jesus 1,000 Ml Bag) 1,000 ml OG .See Protocol SAMANTHA; Protocol Stop: 12/20/22 11:44 Last Admin: 11/20/22 12:20 Dose: 1,000 ml Documented By: NIKK Olanzapine (Olanzapine 10 Mg/2.1 Ml Sdv) 2.5 mg IM NOW STA Stop: 11/16/22 21:22 Last Admin: 11/16/22 21:37 Dose: 2.5 mg Documented By: ACC Olanzapine (Olanzapine 10 Mg/2.1 Ml Sdv) 2.5 mg IM Q4H PRN PRN Reason: Agitation Stop: 12/16/22 21:28 Last Admin: 11/17/22 00:08 Dose: 2.5 mg Documented By: JOMAR Olanzapine (Olanzapine 10 Mg/2.1 Ml Sdv) 5 mg IM NOW STA Stop: 11/17/22 02:32 Last Admin: 11/17/22 02:43 Dose: 5 mg Documented By: JOMAR Olanzapine (Olanzapine 10 Mg/2.1 Ml Sdv) 2.5 mg IM [facility] Stop: 12/18/22 19:54 Last Admin: 11/18/22 20:56 Dose: 2.5 mg Documented By: FABIANO Olanzapine (Olanzapine 10 Mg/2.1 Ml Sdv) 2.5 mg IM NOW STA Stop: 11/18/22 21:26 Last Admin: 11/18/22 21:37 Dose: 2.5 mg Documented By: FABIANO Olanzapine (Olanzapine 10 Mg/2.1 Ml Sdv) 2.5 mg IM NOW STA Stop: 11/19/22 00:10 Last Admin: 11/19/22 01:27 Dose: 2.5 mg Documented By: IJEOMA Olanzapine (Olanzapine 10 Mg/2.1 Ml Sdv) 5 mg IM NOW STA Stop: 11/21/22 20:36 Last Admin: 11/21/22 21:00 Dose: 5 mg Documented By: IJEOMA Pantoprazole Sodium (Pantoprazole 40 Mg Tab) 40 mg PO DAILY SAMANTHA Stop: 12/17/22 08:59 Last Admin: 11/18/22 09:08 Dose: Not Given Documented By: [id number] Admin: 11/17/22 09:25 Dose: Not Given Documented By: GPF Potassium Chloride (Potassium Chloride 20 Meq/15 Ml Udc) 20 meq NG Q4H SAMANTHA Stop: 11/20/22 22:31 Last Admin: 11/20/22 20:40 Dose: 20 meq Documented By: Admin: 11/20/22 18:25 Dose: 20 meq Documented By: NIKK Propofol (Propofol Iv Emulsion 10 Mg/Ml 100 Ml Vial) Confirm Administered Dose 1,000 mg IV .STK-MED ONE Stop: 11/20/22 08:57 Last Admin: 11/20/22 10:08 Dose: Not Given Documented By: NIKK Sterile Water (Tube Feeding Water Flush) 250 ml OG Q4H SAMANTHA Stop: 12/20/22 11:44 Last Admin: 11/21/22 12:11 Dose: Not Given Documented By: Admin: 11/21/22 08:43 Dose: 250 ml Documented By: Admin: 11/21/22 03:11 Dose: 250 ml Documented By: Admin: 11/20/22 23:45 Dose: 250 ml Documented By: Admin: 11/20/22 20:31 Dose: 250 ml Documented By: Admin: 11/20/22 17:41 Dose: 250 ml Documented By: Admin: 11/20/22 12:21 Dose: 250 ml Documented By: NIKK Imaging Data Radiologist's Impression: Chest X-Ray 11/16/22 15:45 XR chest 1V portable HISTORY: 62 years-old Female Dyspnea acute shortness of breath COMPARISON: 11/14/2022 TECHNIQUE: AP view of the chest FINDINGS: Cardiac silhouette is enlarged. Prior median sternotomy with CABG. Pulmonary vascular congestion. Trace pleural effusions. No pneumothorax, or lobar airspace consolidation. The bones appear grossly intact. Cholecystectomy. IMPRESSION: Cardiomegaly with pulmonary vascular congestion. ACT 112: Negative or not required by law. The above report was generated using voice recognition software. It may contain grammatical, syntax or spelling errors. Electronically signed by: Alexi Wu M.D. 11/16/2022 4:[address] 11/16/22 15:46 CT head/brain wo con CLINICAL HISTORY: 62 years-old Female with AMS. Acutely altered mental status TECHNIQUE: Multiple axial CT images of the head were obtained without contrast. A dose lowering technique was utilized adhering to the principles of ALARA. CT DOSE: 625.8 mGy.cm COMPARISON: None. FINDINGS: No acute intracranial hemorrhage, midline shift, intracranial mass, hydrocephalus, territorial ischemia or abnormal extra-axial collection. Involutional changes with mild white matter hypodensities likely representing chronic microvascular ischemic disease. The calvarium is intact. Prior bilateral lens repair. The paranasal sinuses, mastoid air cells, and middle ear cavities are clear. IMPRESSION: No acute intracranial abnormality. ACT 112: Negative or not required by law. The above report was generated using voice recognition software. It may contain grammatical, syntax or spelling errors. Electronically signed by: Alexi Wu M.D. 11/16/2022 4:20 PM Abdomen/Pelvis CT 11/16/22 18:45 Exam(s): CT ABDOMEN + PELVIS With Contrast IV Amt: 92 ml opti 320 EXAM: CT Abdomen and Pelvis With Intravenous Contrast CLINICAL HISTORY: Reason for exam: elevated WBC, confusion. TECHNIQUE: Axial computed tomography images of the abdomen and pelvis with intravenous contrast. CTDI is 26.39 mGy and DLP is 1287.65 mGy-cm. Automated exposure control was utilized for the study. A dose lowering technique was utilized adhering to the principles of ALARA. CONTRAST: Patient received 92 ml opti 320 of IV contrast COMPARISON: No relevant prior studies available. FINDINGS: Lung bases: Unremarkable. No mass. No consolidation. Heart: Cardiomegaly. ABDOMEN: Liver: Unremarkable. No focal hepatic lesion. Gallbladder and bile ducts: Cholecystectomy. No ductal dilation. Pancreas: Unremarkable. No mass. No ductal dilation. Spleen: Unremarkable. No splenomegaly. Adrenals: Bilateral adrenal nodules, limited in evaluation due to contrast. These may represent adenomas and can be confirmed on a noncontrast CT scan. Kidneys and ureters: Unremarkable. No solid mass. No hydronephrosis. Stomach and bowel: Diverticulosis, without acute diverticulitis. No small bowel obstruction. No free air. PELVIS: Appendix: No findings to suggest acute appendicitis. Bladder: Unremarkable. No mass. Reproductive: Hysterectomy. ABDOMEN and PELVIS: Intraperitoneal space: See above. Bones/joints: Sternotomy wires. Degenerative changes of the spine. No acute fracture. No dislocation. Soft tissues: Unremarkable. Vasculature: Atherosclerotic changes of the aorta. No abdominal aortic aneurysm. Lymph nodes: Unremarkable. No enlarged lymph nodes. IMPRESSION: 1. Bilateral adrenal nodules, limited in evaluation due to contrast. These may represent adenomas and can be confirmed on a noncontrast CT scan. 2. Cholecystectomy. 3. Hysterectomy. 4. Diverticulosis, without acute diverticulitis. No small bowel obstruction. No free air. Electronically signed by: Bismark Myles MD 11/16/22 19:57 PM Discharge Plan Visit Data Chief Complaint: Altered Mental Status Stated Complaint: FOUND ON FLOOR W/O O2. CONFUSED ED Provider: Juan A Daily Discharge Problem: Acute on chronic respiratory failure with hypoxemia, COPD (chronic obstructive pulmonary disease), Encephalopathy Patient Disposition: Admitted As Inpatient Discharge Instructions Interventions: ED Discharge Assessment Last Done: 11/16/22 23:17
[2022-11-16] MEDS ORDERED: ALBUT/IPRATROP 3MG/0.5MG NEB 3 ML VIAL INH STA (15:44)
[2022-11-16] MEDS ORDERED: NALOXONE HCL 0.4 MG/1 ML VIAL/CARP IV STA (15:44)
[2022-11-16 15:58] LABS: Base Excess VBG -3.4 mEq/L; HCO3 VBG 21 mmol/L; Oxygen Saturation VBG 72.2 %; PCO2 VBG 37 mmHg (38-50); PO2 VBG 45 mmHg; pH VBG 7.37 (7.36-7.41)
--- NOTE | 2022-11-16 16:06 | XRay Report ---
XR chest 1V portable HISTORY: 62 years-old Female Dyspnea acute shortness of breath COMPARISON: 11/14/2022 TECHNIQUE: AP view of the chest FINDINGS: Cardiac silhouette is enlarged. Prior median sternotomy with CABG. Pulmonary vascular congestion. Tra ce pleural effusions. No pneumothorax, or lobar airspace consolidation. The bones appear grossly inta ct. Cholecystectomy. IMPRESSION: Cardiomegaly with pulmonary vascular congestion. ACT 112: Negative or not required by law. The above report was generated using voice recognition software. It may contain grammatical, syntax o r spelling errors. Electronically signed by: Alexi Wu M.D. 11/16/2022 4:04 PM
[2022-11-16 16:15] LABS: Hematocrit (blood only) 24.5 % (37.0-47.0); Hemoglobin 7.7 g/dl (12.0-16.0); Mean Corpuscular Hemoglobin 29.1 pg (25.0-34.0); Mean Corpuscular Hgb Conc 31.4 g/dL (32.0-36.0); Mean Corpuscular Volume 92.5 fL (80.0-100.0); Mean Platelet Volume 11.2 fL (9.4-12.4); Nucleated RBC # (auto) 0.02 K/uL (0.00-0.12); Nucleated RBC % (auto) 0.1 %; Platelet Count 179 K/uL (130-400); RDW Coefficient of Variation 16.6 % (11.5-14.5); RDW Standard Deviation 54.4 fL (36.4-46.3); Red Blood Count 2.65 M/uL (4.20-5.40); White Blood Count 22.38 K/ul (4.8-10.8)
--- NOTE | 2022-11-16 16:22 | CT Scan Report ---
CT head/brain wo con CLINICAL HISTORY: 62 years-old Female with AMS. Acutely altered mental status TECHNIQUE: Multiple axial CT images of the head were obtained without contrast. A dose lowering tech nique was utilized adhering to the principles of ALARA. CT DOSE: 625.8 mGy.cm COMPARISON: None. FINDINGS: No acute intracranial hemorrhage, midline shift, intracranial mass, hydrocephalus, territorial ischem ia or abnormal extra-axial collection. Involutional changes with mild white matter hypodensities like ly representing chronic microvascular ischemic disease. The calvarium is intact. Prior bilateral lens repair. The paranasal sinuses, mastoid air cells, and m iddle ear cavities are clear. IMPRESSION: No acute intracranial abnormality. ACT 112: Negative or not required by law. The above report was generated using voice recognition software. It may contain grammatical, syntax o r spelling errors. Electronically signed by: Alexi Wu M.D. 11/16/2022 4:20 PM
[2022-11-16 16:35] LABS: Acetaminophen < 3 ug/ml (10-30); Salicylate < 3.0 mg/dl (3.0-30)
[2022-11-16 16:37] LABS: Basophils # (auto) 0.05 K/uL (0.00-0.20); Basophils % (auto) 0.2 %; Eosinophils # (auto) 0.13 K/uL (0.00-0.50); Eosinophils % (auto) 0.6 %; Immature Granulocytes # (auto) 0.56 K/uL (0.01-0.20); Immature Granulocytes % (auto) 2.5 %; Lymphocytes # (auto) 2.34 K/uL (1.20-3.40); Lymphocytes % (auto) 10.5 %; Monocytes # (auto) 4.47 K/uL (0.11-0.59); Neutrophils # (auto) 14.83 K/uL (1.40-6.50); Neutrophils % (auto) 66.2 %; Polychromasia 1+; Spherocytes 2+
[2022-11-16 16:39] LABS: Alanine Aminotransferase 20 U/L (7-52); Albumin Globulin Ratio 1.1 (0.9-2); Alkaline Phosphatase 64 U/L (34-104); Anion Gap 9 (3-11); Aspartate Aminotransferase 29 U/L (13-39); BUN Creatinine Ratio 21.7 (10-20); Bilirubin,Total 0.5 mg/dl (0.2-1.0); Blood Urea Nitrogen 34 mg/dl (6-23); Calcium 9.1 mg/dl (8.6-10.3); Carbon Dioxide 21 mmol/L (21-32); Chloride 106 mmol/L (98-107); Est GFR (Non-African American) 34.5 ml/min; Globulin 3.5 gm/dl (2.5-4.0); Glucose 292 mg/dl (70-99(Fasting)); Potassium 4.1 mmol/L (3.5-5.1); Sodium 136 mmol/L (136-145); Total Protein 7.5 gm/dl (6.0-8.3)
[2022-11-16] MEDS ORDERED: SODIUM CHLORIDE 0.9% 250 ML IV ONE (16:48)
[2022-11-16] MEDS ORDERED: CEFEPIME 2,000 MG/20 ML VIAL IV STA (16:48)
[2022-11-16 16:49] LABS: Partial Thromboplastin Time 27.7 Seconds (21.0-31.0); Prothrombin Time 11.4 Seconds (9.0-12.0)
--- NOTE | 2022-11-16 17:56 | Electrocardiogram Report ---
Test Reason : Blood Pressure : / mmHG Vent. Rate : 097 BPM Atrial Rate : 097 BPM P-R Int : 144 ms QRS Dur : 090 ms QT Int : 362 ms P-R-T Axes : 066 071 096 degrees QTc Int : 459 ms Normal sinus rhythm Normal ECG When compared with ECG of 15-NOV-2022 06:19, No significant change was found Confirmed by Allen Dey ([id number]) on 11/16/2022 5:56:27 PM Referred By: Confirmed By:Paolo Dey
[2022-11-16 17:58] LABS: Appearance Urine Clear (Clear); Bacteria Urine Automated Negative (Negative); Blood Urine Negative (Negative); Color Urine Dark Yellow; Glucose Urine UA Negative (Negative); Ketones Urine Trace (Negative); Leukocyte Esterase Urine Negative (Negative); Nitrite Urine Negative (Negative); Protein Urine 2+ (Negative); RBC Urine Automated 0-4 /hpf (0-4); Specific Gravity Urine 1.025 (1.000-1.030); Urobilinogen Urine Negative (Negative)
[2022-11-16 18:06] LABS: Bilirubin Urine 1+ (Negative)
[2022-11-16 18:33] LABS: Amphetamines+Metham, Urine Neg (Neg); Barbiturates, Urine Neg (Neg); Benzodiazepine, Urine Neg (Neg); Cocaine, Urine Neg (Neg); MDMA (Ecstacy), Urine Neg (Neg); Methadone, Urine Neg (Neg); Opiate, Urine Neg (Neg); Phencyclidine, Urine Neg (Neg)
[2022-11-16 18:35] LABS: Cast Urine Automated 0 /lpf (0-5)
[2022-11-16] MEDS ORDERED: OPTIRAY 320 100ml IV ONE (19:42)
--- NOTE | 2022-11-16 19:58 | CT Scan Report ---
Exam(s): CT ABDOMEN + PELVIS With Contrast IV Amt: 92 ml opti 320 EXAM: CT Abdomen and Pelvis With Intravenous Contrast CLINICAL HISTORY: Reason for exam: elevated WBC, confusion. TECHNIQUE: Axial computed tomography images of the abdomen and pelvis with intravenous contrast. CTDI is 26.39 mGy and DLP is 1287.65 mGy-cm. Automated exposure control was utilized for the study. A dose lowering technique was utilized adhering to the principles of ALARA. CONTRAST: Patient received 92 ml opti 320 of IV contrast COMPARISON: No relevant prior studies available. FINDINGS: Lung bases: Unremarkable. No mass. No consolidation. Heart: Cardiomegaly. ABDOMEN: Liver: Unremarkable. No focal hepatic lesion. Gallbladder and bile ducts: Cholecystectomy. No ductal dilation. Pancreas: Unremarkable. No mass. No ductal dilation. Spleen: Unremarkable. No splenomegaly. Adrenals: Bilateral adrenal nodules, limited in evaluation due to contrast. These may represent adenomas and can be confirmed on a noncontrast CT scan. Kidneys and ureters: Unremarkable. No solid mass. No hydronephrosis. Stomach and bowel: Diverticulosis, without acute diverticulitis. No small bowel obstruction. No free air. PELVIS: Appendix: No findings to suggest acute appendicitis. Bladder: Unremarkable. No mass. Reproductive: Hysterectomy. ABDOMEN and PELVIS: Intraperitoneal space: See above. Bones/joints: Sternotomy wires. Degenerative changes of the spine. No acute fracture. No dislocation. Soft tissues: Unremarkable. Vasculature: Atherosclerotic changes of the aorta. No abdominal aortic aneurysm. Lymph nodes: Unremarkable. No enlarged lymph nodes. IMPRESSION: 1. Bilateral adrenal nodules, limited in evaluation due to contrast. These may represent adenomas and can be confirmed on a noncontrast CT scan. 2. Cholecystectomy. 3. Hysterectomy. 4. Diverticulosis, without acute diverticulitis. No small bowel obstruction. No free air. Electronically signed by: Bismark Myles MD 11/16/22 19:57 PM
[2022-11-16 20:17] LABS: Adenovirus PCR Not Detected (NotDetected); Bordetella parapertussis PCR Not Detected (NotDetected); Bordetella pertussis PCR Not Detected (NotDetected); Chlamydia pneumoniae PCR Not Detected (NotDetected); Coronavirus 229E PCR Not Detected (NotDetected); Coronavirus CoV-2 (COVID19)PCR Not Detected (NotDetected); Coronavirus HKU1 PCR Not Detected (NotDetected); Coronavirus NL63 PCR Not Detected (NotDetected); Coronavirus OC43PCR Not Detected (NotDetected); Human Metapneumovirus PCR Not Detected (NotDetected); Influenza A PCR Not Detected (NotDetected); Influenza B PCR Not Detected (NotDetected); Mycoplasma pneumoniae PCR Not Detected (NotDetected); Parainfluenza Virus 1 PCR Not Detected (NotDetected); Parainfluenza Virus 2 PCR Not Detected (NotDetected); Parainfluenza Virus 3 PCR Not Detected (NotDetected); Parainfluenza Virus 4 PCR Not Detected (NotDetected); Respiratory Syncytial VirusPCR Not Detected (NotDetected); Rhinovirus/Enterovirus PCR Not Detected (NotDetected)
[2022-11-16] MEDS ORDERED: ALBUMIN 25% 25 GM/100 ML VIAL IV ONE (20:35)
[2022-11-16] MEDS ORDERED: METOPROLOL SUCC 50MG EXT REL TAB PO STA (20:38)
[2022-11-16] MEDS ORDERED: OLANZapine 10 MG/2.1 ML SDV IM STA (21:21)
--- NOTE | 2022-11-16 21:24 | History & Physical Report ---
Date of Service November 16, 2022 Assessment & Plan (1) Encephalopathy: Plan: Multifactorial Acute on chronic hypoxemic respiratory failure secondary to pulmonary congestion, hx diastolic dysfunction, equivocal volume status given kidney dysfunction Multiple home neuropsychotropic medications contributory CAD status post CABG, PVD valvular heart disease (moderate to severe MR) history mitral valve endocarditis/periaortic abscess as per records chronic LBBB hx COPD on home O2/ISAURA on CPAP hyperlipidemia, on statin Rx DM 2 insulin requiring, suboptimal control as of recent hemoglobin A1c of 9.4 last month acute on chronic anemia, mild hemoglobin drop from baseline, overt bleeding mood disorder/paranoia as per records medical noncompliance as per records possible functional disability given recurrent admissions ongoing tobacco abuse. PCU Supplemental O2 Lasix 1 dose now Monitor creatinine response to IV albumin Nephrology consult if without improvement Hold neuropsychotropic medications until patient mentation back to baseline. Transfuse PRBC to maintain hemoglobin of at least 8 given history CAD Basal bolus insulin, ISS BG goal 1 10-1 40, carb count coverage PT OT eval Nicotine patch as needed DVT prophylaxis. Heparin subcu Full code Patient daughter requesting updates from providers. Ms. Perla Webb, contact #[phone]. Total critical care time was 40 minutes. Text document was generated using [employer] voice recognition software. It may contain grammatical or spelling errors. Kindly contact undersigned for clarification of any documentation item in question. History of Present Illness Chief Complaint: Confusion as per family Primary Care Provider: Christiano Simon PA-C History obtained from patient, family, and records. Limited history from patient secondary to disorientation. Medical history significant for chronic diastolic heart failure (EF 55 to 60%, TTE 2022), CAD status post CABG, PVD, valvular heart disease (moderate to severe MR), history mitral valve endocarditis/periaortic abscess as per records, chronic LBBB, chronic respiratory failure secondary to possible COPD as per records on home O2, ISAURA on CPAP, hypertension, hyperlipidemia, DM 2 insulin requiring, GERD, chronic anemia (baseline hemoglobin of 8), mood disorder, paranoia as per records, history of MRSA bacteremia as per records, medical noncompliance as per records, ongoing tobacco abuse. 10 30 to 11/08 Patient confined for decompensated heart failure. 11/13 to 11/14 Patient confined for chest pain. Patient evaluated by Cardiology. Patient refused PT evaluation. Patient requested to be discharged home as per documentation. Patient with lightheadedness symptoms prior to leaving hospital as per daughters. Patient noted to be confused at home by family today. Patient sleepy and able to answer questions. EMS called to patient's home. Oxygen on the lower side. Lowest O2 sats of 80s documented at the ER. Patient unable to answer questions regarding chest pain, SOB, abdominal pain, headache symptoms. Medical History as above Surgical History : CABG, hysterectomy, cholecystectomy Family History : DM, heart disease, stroke Personal/Social history : 1 pack daily, occasional EtOH intake, lives by self Allergies Allergy/AdvReac Type Severity Reaction Status Date / Time latex Allergy Intermediate Rash Verified 04/28/22 13:20 Home Medications Medication Instructions Recorded Confirmed Type clopidogrel 75 mg tablet 75 mg PO DAILY 03/16/21 11/16/22 History duloxetine 60 mg capsule,delayed 90 mg PO QAM 03/16/21 11/16/22 History release topiramate 50 mg tablet 50 mg PO BID 03/16/21 11/16/22 History aspirin 81 mg tablet,delayed 81 mg PO DAILY 05/14/21 11/16/22 History release insulin aspart U-100 100 unit/mL 0 unit subcut TID 05/14/21 11/16/22 History (3 mL) subcutaneous pen (Novolog FlexPen U-100 Insulin aspart) nitroglycerin 0.4 mg sublingual 0.4 mg sublingual .PRN/UD PRN 05/14/21 11/16/22 History tablet Chest Pain acetaminophen 500 mg tablet 500 mg PO Q6H PRN Pain 08/23/21 11/16/22 History (Tylenol Extra Strength) furosemide 20 mg tablet (Lasix) 60 mg PO DAILY 08/23/21 11/16/22 History cetirizine 10 mg tablet (Zyrtec) 10 mg PO DAILY 08/02/22 11/16/22 History melatonin 5 mg tablet 5 mg PO HS 08/02/22 11/16/22 History atorvastatin 80 mg tablet 80 mg PO DAILY 08/04/22 11/16/22 History gabapentin 300 mg capsule 300 mg PO BID #60 caps 08/26/22 11/16/22 Rx insulin glargine 100 unit/mL (3 35 unit subcut QAM 10/30/22 11/16/22 History mL) subcutaneous pen (Basaglar KwikPen U-100 Insulin) metoprolol succinate 50 mg 50 mg PO QPM 10/30/22 11/16/22 History tablet,extended release 24 hr metoprolol succinate 50 mg 100 mg PO QAM 10/30/22 11/16/22 History tablet,extended release 24 hr cefdinir 300 mg capsule 300 mg PO BID #18 caps 11/08/22 11/16/22 Rx ondansetron 4 mg disintegrating 4 mg PO Q8H PRN N/V 11/14/22 11/16/22 History tablet isosorbide mononitrate 30 mg 30 mg PO QAM #30 tabs 11/15/22 11/16/22 Rx tablet,extended release 24 hr lisinopril 5 mg tablet (Zestril) 5 mg PO QAM #30 tabs 11/15/22 11/16/22 Rx olanzapine 5 mg tablet 5 mg PO HS 11/16/22 11/16/22 History pantoprazole 40 mg tablet,delayed 40 mg PO DAILY 11/16/22 11/16/22 History release ropinirole 1 mg tablet 1 mg PO QPM 11/16/22 11/16/22 History Past Med/Surg History Medical History Abscess of aorta Acute on chronic HFrEF (heart failure with reduced ejection fraction) Anxiety Carotid stenosis according to records from 2019 CEA was recommended but patient declined. no objective quantification available Carpal tunnel syndrome, left Chronic congestive heart failure with left ventricular diastolic dysfunction Coronary artery disease Diabetes mellitus, type 2 DVT prophylaxis Encounter for pre-operative examination Fracture of left tibial plateau HFrEF (heart failure with reduced ejection fraction) History of left below knee amputation HTN (hypertension) LBBB (left bundle branch block) MRSA bacteremia Osteomyelitis Psychotic disorder Right foot pain Tobacco use disorder Ulnar neuropathy at elbow of left upper extremity Surgical History Status post cholecystectomy Status post coronary artery bypass grafting Status post hysterectomy Status post ORIF of fracture of ankle R, 2017 Family History Other Diabetes Heart disease Social History Smoking Status: Current some day smoker Tobacco Type: Cigarettes packs per day: 1; Cigarettes Per Day: 10; Second Hand Exposure: Yes; Do You Dip or Chew Tobacco: No; Hx Alcohol Use: No Hx Substance Use: No Preferred Language: Sami Communication Ability: Effective Avionics Integration Engineer Required: No Beliefs That Will Affect Care: None marital status: Current Living Situation: Alone Current Living Situation Comment: house Feels Safe at Home: Yes Assistive Devices: Oxygen - Continuous and Wheelchair Review of Systems Review of Systems: Could not be reliably obtained secondary to disorientation Physical Exam Physical Exam: GENERAL: Disoriented, restless , no respiratory distress SKIN: Pallor, warm HEENT: Pale palpebral conjunctivae, no ptosis, dry buccal mucosa, nasal cannula in place NECK : Supple, no tenderness CHEST : Decreased breath sounds, no tenderness HEART : Tachycardic, systolic murmur ABDOMEN: Some distention, nontender RECTAL : Intact sphincter, brown stool (FOBT negative) EXTREMITIES : Minimal LE swelling/tenderness, no other conspicuous deformities noted NEUROLOGIC : Disoriented, no facial asymmetry, restless, gait and stance not assessed Results & Data Results & Data Vital Signs (Past 12 Hours) Vital Signs Temp Pulse Pulse Resp BP BP Pulse Ox 11/16/22 21:08 111 H 25 H 179/103 H 94 11/16/22 19:24 105 H 11/16/22 19:10 106 H 19 98 11/16/22 19:00 103 H 27 H 100 11/16/22 18:50 112 H 19 91 11/16/22 18:40 108 H 16 90 11/16/22 18:30 110 H 11/16/22 18:20 104 H 11/16/22 18:10 109 H 11/16/22 18:00 113 H 11/16/22 17:50 104 H 11/16/22 17:30 103 H 22 96 11/16/22 17:00 98 H 16 90 11/16/22 16:40 99 H 19 145/61 H 100 11/16/22 16:30 99 H 18 100 11/16/22 16:00 95 H 24 156/82 H 100 11/16/22 15:50 100 H 16 85 L 11/16/22 16:01 94 H 25 H 100 11/16/22 15:23 98 H 11/16/22 15:27 37.2 C 95 H 26 H 144/104 H 98 O2 Del Method O2 Flow Rate FiO2 11/16/22 21:08 Nasal Cannula 3 11/16/22 19:24 11/16/22 19:10 11/16/22 19:00 11/16/22 18:50 11/16/22 18:40 11/16/22 18:30 11/16/22 18:20 11/16/22 18:10 11/16/22 18:00 11/16/22 17:50 11/16/22 17:30 Oxymask 1 11/16/22 17:00 Oxymask 1 11/16/22 16:40 Oxymask 3 11/16/22 16:30 Oxymask 5 11/16/22 16:00 Oxymask 5 11/16/22 15:50 Room Air 11/16/22 16:01 30 11/16/22 15:23 11/16/22 15:27 Oxymask 4 Laboratory Results Laboratory Results WBC 22.38 K/ul (4.8-10.8) H 11/16/22 15:33 RBC 2.65 M/uL (4.20-5.40) L 11/16/22 15:33 Hgb 7.7 g/dl (12.0-16.0) L 11/16/22 15:33 Hct 24.5 % (37.0-47.0) L 11/16/22 15:33 MCV 92.5 fL (80.0-100.0) 11/16/22 15:33 MCH 29.1 pg (25.0-34.0) 11/16/22 15:33 MCHC 31.4 g/dL (32.0-36.0) L 11/16/22 15:33 RDW Std Deviation 54.4 fL (36.4-46.3) H 11/16/22 15:33 RDW Coeff of Fabio 16.6 % (11.5-14.5) H 11/16/22 15:33 Plt Count 179 K/uL (130-400) 11/16/22 15:33 MPV 11.2 fL (9.4-12.4) 11/16/22 15:33 Immature Gran % (Auto) 2.5 % 11/16/22 15:33 Neut % (Auto) 66.2 % 11/16/22 15:33 Lymph % (Auto) 10.5 % 11/16/22 15:33 Banks % (Auto) 20.0 % 11/16/22 15:33 Eos % (Auto) 0.6 % 11/16/22 15: Baso % (Auto) 0.2 % 11/16/22 15:33 Neut # (Auto) 14.83 K/uL (1.40-6.50) H 11/16/22 15: Lymph # (Auto) 2.34 K/uL (1.20-3.40) 11/16/22 15:33 Banks # (Auto) 4.47 K/uL (0.11-0.59) H 11/16/22 15:33 Eos # (Auto) 0.13 K/uL (0.00-0.50) 11/16/22 15: Baso # (Auto) 0.05 K/uL (0.00-0.20) 11/16/22 15: Immature Gran # (Auto) 0.56 K/uL (0.01-0.20) H 11/16/22 15: Absolute Nucleated RBC 0.02 K/uL (0.00-0.12) 11/16/22 15: Nucleated RBC % (auto) 0.1 % 11/16/22 15: Polychromasia 1+ 11/16/22 15: Spherocytes 2+ 11/16/22 15: PT 11.4 Seconds (9.0-12.0) 11/16/22 15: INR 1.0 (0.9-1.1) 11/16/22 15: APTT 27.7 Seconds (21.0-31.0) 11/16/22 15: PTT Ratio 1.0 11/16/22 15: VBG pH 7.37 (7.36-7.41) 11/16/22 15: VBG pCO2 37 mmHg (38-50) L 11/16/22 15: VBG pO2 45 mmHg 11/16/22 15: VBG HCO3 21 mmol/L 11/16/22 15: VBG O2 Saturation 72.2 % 11/16/22 15: VBG Base Excess -3.4 mEq/L 11/16/22 15: Sodium 136 mmol/L (136-145) 10/04/23 15:33 Potassium 4.1 mmol/L (3.5-5.1) 11/16/22 15:33 Chloride 106 mmol/L (98-107) 11/16/22 15:33 Carbon Dioxide 21 mmol/L (21-32) 11/16/22 15:33 Anion Gap 9 (3-11) 11/16/22 15:33 BUN 34 mg/dl (6-23) H 11/16/22 15:33 Creatinine 1.57 mg/dl (0.6-1.2) H D 11/16/22 15:33 Est Cr Clr Drug Dosing Not Reportable 11/16/22 15:33 Est GFR ( Amer) 40.0 ml/min 11/16/22 15:33 Est GFR (Non-Af Amer) 34.5 ml/min 11/16/22 15:33 BUN/Creatinine Ratio 21.7 (10-20) H 11/16/22 15:33 Glucose 292 mg/dl (70-99(Fasting)) H 11/16/22 15:33 POC Glucose 321 mg/dl (70-99) H* 11/16/22 15:44 Lactate 1.4 mmol/L (0.4-2.0) 11/16/22 16:36 Calcium 9.1 mg/dl (8.6-10.3) 11/16/22 15:33 Total Bilirubin 0.5 mg/dl (0.2-1.0) 11/16/22 15:33 AST 29 U/L (13-39) 11/16/22 15:33 ALT 20 U/L (7-52) 11/16/22 15:33 Alkaline Phosphatase 64 U/L (34-104) 11/16/22 15:33 Ammonia 36.0 umol/L (18-72) 11/16/22 16:36 B-Natriuretic Peptide 467 pg/ml (0-100) H 11/16/22 15:33 Total Protein 7.5 gm/dl (6.0-8.3) 11/16/22 15:33 Albumin 4.0 gm/dl (3.4-5.0) 11/16/22 15:33 Globulin 3.5 gm/dl (2.5-4.0) 11/16/22 15:33 Albumin/Globulin Ratio 1.1 (0.9-2) 11/16/22 15:33 Urine Color Dark Yellow 11/16/22 17:11 Urine Appearance Clear (Clear) 11/16/22 17:11 Urine pH 5.0 (4.5-7.5) 11/16/22 17:11 Ur Specific [place] 1.025 (1.000-1.030) 11/16/22 17:11 Urine Protein 2+ (Negative) H 11/16/22 17:11 Urine Glucose (UA) Negative (Negative) 11/16/22 17:11 Urine Ketones Trace (Negative) H 11/16/22 17:11 Urine Blood Negative (Negative) 11/16/22 17:11 Urine Nitrite Negative (Negative) 11/16/22 17:11 Urine Bilirubin 1+ (Negative) H 11/16/22 17:11 Urine Urobilinogen Negative (Negative) 11/16/22 17:11 Ur Leukocyte Esterase Negative (Negative) 11/16/22 17:11 Urine WBC (Auto) 1-5 /hpf (0-5) 11/16/22 17:11 Urine RBC (Auto) 0-4 /hpf (0-4) 11/16/22 17:11 U Hyaline Cast (Auto) 0 /lpf (0-5) 11/16/22 17:11 U Epithel Cells (Auto) 10-20 /lpf (0-5) H 11/16/22 17:11 Urine Bacteria (Auto) Negative (Negative) 11/16/22 17:11 Salicylates < 3.0 mg/dl (3.0-30) L 11/16/22 15:33 Urine Opiates Screen Neg (Neg) 11/16/22 17:11 Ur Methadone, Qual Neg (Neg) 11/16/22 17:11 Acetaminophen < 3 ug/ml (10-30) L 11/16/22 15:33 Urine Barbiturates Neg (Neg) 11/16/22 17:11 Ur Phencyclidine (PCP) Neg (Neg) 11/16/22 17:11 U Amphetamin/Meth Scrn Neg (Neg) 11/16/22 17:11 MDMA (Ecstasy) Screen Neg (Neg) 11/16/22 17:11 U Benzodiazepines Scrn Neg (Neg) 11/16/22 17:11 Ur Cocaine Metabolite Neg (Neg) 11/16/22 17:11 U Marijuana (THC) Screen Neg (Neg) 11/16/22 17:11 Ethyl Alcohol mg/dL < 10.0 mg/dl (<10.0) 11/16/22 16:36 Adenovirus (PCR) Not Detected (NotDetected) 11/16/22 19:02 B. pertussis DNA (PCR) Not Detected (NotDetected) 11/16/22 19:02 B.parapertussis DNA PCR Not Detected (NotDetected) 11/16/22 19:02 C. pneumoniae DNA (PCR) Not Detected (NotDetected) 11/16/22 19:02 Coronavirus OC43 (PCR) Not Detected (NotDetected) 11/16/22 19:02 Coronavirus HKU1 (PCR) Not Detected (NotDetected) 11/16/22 19:02 Coronavirus 229E (PCR) Not Detected (NotDetected) 11/16/22 19:02 SARS-CoV-2 (PCR) Not Detected (NotDetected) 11/16/22 19:02 Coronavirus NL63 (PCR) Not Detected (NotDetected) 11/16/22 19:02 Human Metapneumovir PCR Not Detected (NotDetected) 11/16/22 19:02 Influenza Type A (PCR) Not Detected (NotDetected) 11/16/22 19:02 Influenza Type B (PCR) Not Detected (NotDetected) 11/16/22 19:02 M. pneumoniae (PCR) Not Detected (NotDetected) 11/16/22 19:02 Parainfluenza 1 (PCR) Not Detected (NotDetected) 11/16/22 19:02 Parainfluenza 2 (PCR) Not Detected (NotDetected) 11/16/22 19:02 Parainfluenza 3 (PCR) Not Detected (NotDetected) 11/16/22 19:02 Parainfluenza 4 (PCR) Not Detected (NotDetected) 11/16/22 19:02 RSV (PCR) Not Detected (NotDetected) 11/16/22 19:02 Entero/Rhino (PCR) Not Detected (NotDetected) 11/16/22 19:02 Impressions Chest X-Ray 11/16/22 15:45 XR chest 1V portable HISTORY: 62 years-old Female Dyspnea acute shortness of breath COMPARISON: 11/14/2022 TECHNIQUE: AP view of the chest FINDINGS: Cardiac silhouette is enlarged. Prior median sternotomy with CABG. Pulmonary vascular congestion. Trace pleural effusions. No pneumothorax, or lobar airspace consolidation. The bones appear grossly intact. Cholecystectomy. IMPRESSION: Cardiomegaly with pulmonary vascular congestion. ACT 112: Negative or not required by law. The above report was generated using voice recognition software. It may contain grammatical, syntax or spelling errors. Electronically signed by: Alexi Wu M.D. 11/16/2022 4:[address] 11/16/22 15:46 CT head/brain wo con CLINICAL HISTORY: 62 years-old Female with AMS. Acutely altered mental status TECHNIQUE: Multiple axial CT images of the head were obtained without contrast. A dose lowering technique was utilized adhering to the principles of ALARA. CT DOSE: 625.8 mGy.cm COMPARISON: None. FINDINGS: No acute intracranial hemorrhage, midline shift, intracranial mass, hydrocephalus, territorial ischemia or abnormal extra-axial collection. Involutional changes with mild white matter hypodensities likely representing chronic microvascular ischemic disease. The calvarium is intact. Prior bilateral lens repair. The paranasal sinuses, mastoid air cells, and middle ear cavities are clear. IMPRESSION: No acute intracranial abnormality. ACT 112: Negative or not required by law. The above report was generated using voice recognition software. It may contain grammatical, syntax or spelling errors. Electronically signed by: Alexi Wu M.D. 11/16/2022 4:20 PM Abdomen/Pelvis CT 11/16/22 18:45 Exam(s): CT ABDOMEN + PELVIS With Contrast IV Amt: 92 ml opti 320 EXAM: CT Abdomen and Pelvis With Intravenous Contrast CLINICAL HISTORY: Reason for exam: elevated WBC, confusion. TECHNIQUE: Axial computed tomography images of the abdomen and pelvis with intravenous contrast. CTDI is 26.39 mGy and DLP is 1287.65 mGy-cm. Automated exposure control was utilized for the study. A dose lowering technique was utilized adhering to the principles of ALARA. CONTRAST: Patient received 92 ml opti 320 of IV contrast COMPARISON: No relevant prior studies available. FINDINGS: Lung bases: Unremarkable. No mass. No consolidation. Heart: Cardiomegaly. ABDOMEN: Liver: Unremarkable. No focal hepatic lesion. Gallbladder and bile ducts: Cholecystectomy. No ductal dilation. Pancreas: Unremarkable. No mass. No ductal dilation. Spleen: Unremarkable. No splenomegaly. Adrenals: Bilateral adrenal nodules, limited in evaluation due to contrast. These may represent adenomas and can be confirmed on a noncontrast CT scan. Kidneys and ureters: Unremarkable. No solid mass. No hydronephrosis. Stomach and bowel: Diverticulosis, without acute diverticulitis. No small bowel obstruction. No free air. PELVIS: Appendix: No findings to suggest acute appendicitis. Bladder: Unremarkable. No mass. Reproductive: Hysterectomy. ABDOMEN and PELVIS: Intraperitoneal space: See above. Bones/joints: Sternotomy wires. Degenerative changes of the spine. No acute fracture. No dislocation. Soft tissues: Unremarkable. Vasculature: Atherosclerotic changes of the aorta. No abdominal aortic aneurysm. Lymph nodes: Unremarkable. No enlarged lymph nodes. IMPRESSION: 1. Bilateral adrenal nodules, limited in evaluation due to contrast. These may represent adenomas and can be confirmed on a noncontrast CT scan. 2. Cholecystectomy. 3. Hysterectomy. 4. Diverticulosis, without acute diverticulitis. No small bowel obstruction. No free air. Electronically signed by: Bismark Myles MD 11/16/22 19:57 PM Diagnostic Findings EKG as per my interpretation : Rate 95, NSR, normal axis, T wave abnormalities lateral leads
[2022-11-16] MEDS ORDERED: OLANZapine 10 MG/2.1 ML SDV IM PRN (21:29)
[2022-11-16] MEDS ORDERED: ACETAMINOPHEN 1,000 MG/100 ML VIAL IV STA (21:29)
[2022-11-16 21:33] LABS: Magnesium 1.9 mg/dl (1.7-2.4)
[2022-11-16] MEDS ORDERED: LORazepam 2 MG/1 ML VIAL IV STA (21:33)
[2022-11-16 21:41] LABS: Creatine Kinase 76 U/L (26-192)
[2022-11-16 21:57] LABS: Hematocrit (blood only) 24.3 % (37.0-47.0); Hemoglobin 7.5 g/dl (12.0-16.0)
[2022-11-16] MEDS ORDERED: ACETAMINOPHEN 500 MG TAB PO PRN (23:35)
[2022-11-16] MEDS ORDERED: GLUCOSE 40% GEL 15 GM TUBE PO PRN (23:35)
[2022-11-16] MEDS ORDERED: GLUCAGON FOR INJ 1 MG VIAL SQ PRN (23:35)
[2022-11-16] MEDS ORDERED: DEXTROSE 50% 50 ML SYRINGE IV PRN (23:35)
[2022-11-16] MEDS ORDERED: GLUCOSE 10 TAB/TUBE PO PRN (23:35)
[2022-11-16] MEDS ORDERED: CARBOHYDRATES FOR HYPOGLYCEMIA PO PRN (23:35)
[2022-11-17] MEDS ORDERED: LANTUS PER UNIT CHARGE SQ STA (00:12)
[2022-11-17] MEDS ORDERED: FUROSEMIDE 40 MG/4 ML VIAL IV ONE (00:26)
[2022-11-17] MEDS ORDERED: SODIUM CHLORIDE 0.9% 250 ML IV PRN (00:26)
[2022-11-17] MEDS: INSULIN ASPART PER UNIT CHARGE SC SCH ×5 (00:37→20:39)
[2022-11-17] MEDS: HEPARIN SOD 5,000 UNIT/0.5 ML VIAL SQ SCH ×3 (01:02→17:24)
[2022-11-17] MEDS ORDERED: OLANZapine 10 MG/2.1 ML SDV IM STA (02:31)
[2022-11-17] MEDS: ALBUMIN 25% 25 GM/100 ML VIAL IV SCH ×3 (05:19→22:18)
[2022-11-17] MEDS ORDERED: MAGNESIUM SULFATE / D5W 1 GM/100 ML BAG IV ONE (05:45)
[2022-11-17] MEDS ORDERED: METOPROLOL SUCC 50MG EXT REL TAB PO SCH ×3 (05:45→21:00)
[2022-11-17] MEDS: METOPROLOL TARTRATE 1 MG/ML VIAL IV SCH ×3 (06:18→17:24)
[2022-11-17] MEDS: ASPIRIN 81 MG ECTAB PO SCH (09:24)
[2022-11-17] MEDS: ISOSORBIDE MONO EXTENDED REL 30 MG TABCR PO SCH (09:25)
[2022-11-17] MEDS: CETIRIZINE HCL 10 MG TABLET PO SCH (09:25)
[2022-11-17] MEDS: CLOPIDOGREL BISULFATE 75 MG TAB PO SCH (09:25)
[2022-11-17] MEDS: PANTOprazole 40 MG TAB PO SCH (09:25)
[2022-11-17 10:22] LABS: Hematocrit (blood only) 28.9 % (37.0-47.0); Hemoglobin 9.1 g/dl (12.0-16.0); Mean Corpuscular Hgb Conc 31.5 g/dL (32.0-36.0); Mean Corpuscular Volume 88.9 fL (80.0-100.0); Nucleated RBC # (auto) 0.03 K/uL (0.00-0.12); Nucleated RBC % (auto) 0.1 %; Platelet Count 149 K/uL (130-400); RDW Coefficient of Variation 17.2 % (11.5-14.5); RDW Standard Deviation 54.8 fL (36.4-46.3); Red Blood Count 3.25 M/uL (4.20-5.40); White Blood Count 22.07 K/ul (4.8-10.8)
[2022-11-17 10:43] LABS: BUN Creatinine Ratio 21.4 (10-20); Calcium 9.7 mg/dl (8.6-10.3); Creatinine Clr Calc Pharmacy 43.8 ml/min; Est GFR (Non-African American) 49.2 ml/min; Potassium 3.4 mmol/L (3.5-5.1)
[2022-11-17 10:58] LABS: Anisocytosis Present; Basophils # (auto) 0.05 K/uL (0.00-0.20); Basophils % (auto) 0.2 %; Echinocytes 1+; Eosinophils % (auto) 0.5 %; Immature Granulocytes # (auto) 0.43 K/uL (0.01-0.20); Immature Granulocytes % (auto) 1.9 %; Lymphocytes # (auto) 1.35 K/uL (1.20-3.40); Lymphocytes % (auto) 6.1 %; Monocytes # (auto) 8.11 K/uL (0.11-0.59); Monocytes % (auto) 36.7 %; Neutrophils # (auto) 12.03 K/uL (1.40-6.50); Neutrophils % (auto) 54.6 %; Polychromasia 1+
[2022-11-17] MEDS ORDERED: VANCOMYCIN HCL 1,250 MG in SODIUM CHLORIDE 0.9% 500 ML IV ONE (17:25)
[2022-11-17] MEDS ORDERED: VANCOMYCIN CONSULT ACTIVE PRN ×2 (17:25→17:26)
[2022-11-17] MEDS ORDERED: VANCOMYCIN HCL 1,000 MG in SODIUM CHLORIDE 0.9% 500 ML IV SCH (17:30)
[2022-11-17] MEDS ORDERED: PIPERACILLIN/TAZOBACTAM 4.5 GM in DEXTROSE 5% MINI-B 100 ML IV SCH (17:30)
--- NOTE | 2022-11-17 17:58 | Pharmacy Report ---
Pharmacy PK ABX Note - Date of Service November 17, 2022 - Assessment and Plan Assessment * 62 year old F receiving cefepime, metronidazole, and vancomycin empirically * Pertinent microbiologic data includes: Positive MRSA Nasal Swab * PMH: hx MRSA mitral valve endocarditis/periaortic abscess 2021, COPD on home O2 * Hx MDRO: MRSA (blood), Kleb aerogenes (urine) * SCr elevated from basedline yesterday, but trending down today. May continue to trend down tomorrow; baseline SCr ~ 0.8 mg/dL Vancomycin * Will dose on the higher estimate of AUC based on anticipated improvement in renal function tomorrow. Dose may still need to be adjusted tomorrow depending on the trend in SCr. Regimen is currently predicted to achieve and AUC of 533 mg/L.hr * Target AUC/ELI of 400-600 mg/L.hr Plan Vancomycin * 1250 mg IV every 24 hours * Random level ordered for: 10/7 AM Pharmacy will continue to follow and will adjust dose/frequency as necessary. Thank you. Pharmacy has transitioned to AUC monitoring for vancomycin. AUC/ELI is the preferred PK/PD target and is associated with decreased risk of nephrotoxicity compared to traditional trough targets.
[2022-11-17] MEDS: CEFEPIME 2,000 MG in SYRINGE 0 ML IV SCH (18:24)
[2022-11-17] MEDS: metroNIDAZOLE 500 MG/100 ML BAG IV SCH (18:24)
[2022-11-17 18:47] LABS: Lyme Ab IgG w/WB Rflx Negative (Negative)
[2022-11-17 18:49] LABS: Lyme Ab IgM w/WB Rflx Positive (Negative)
[2022-11-17] MEDS ORDERED: ACETAMINOPHEN 1,000 MG/100 ML VIAL IV STA (19:24)
--- NOTE | 2022-11-17 19:27 | Hospitalist Progress Note ---
Date of Service November 17, 2022 Assessment & Plan (1) Encephalopathy: Plan Pt is a 62yoF with PMHx significant for chronic diastolic heart failure (EF 55 to 60%, TTE 2022), CAD s/p CABG, PVD, valvular heart disease (moderate to severe MR), history mitral valve endocarditis/periaortic abscess, chronic LBBB, chronic respiratory failure on home O2, ISAURA on CPAP, hypertension, hyperlipidemia, DM 2, GERD, chronic anemia, mood disorder and Hx of MRSA bacteremia presenting with AMS. AMS Encephalopathy Per daughter this is new since discharge last week Head CT with no acute changes, Brain MRI pending WBC significantly elevated but chest XRAY, CT abd/pelvis, UA all without signs of acute infection CTA chest from prior admission notes tree in bud nodularity in the right middle lobe that may represent a mild infectious/inflammatory process, consider repeat ing. Lyme testing positive with IgM antibodies - noted was previously positive in July 2022. VBG unremarkable Blood Cultures x2 with NGTD MRSA nares positive Source of infection unclear at this time but given elevation in WBC will treat empirically with Cefepime, Vancomycin and Flagyl, as well as doxycycline for the positive Lyme testing. Continue to hold home psychotropic meds- per daughter she has not been taking meds recently GUY Cr elevated to 1.57 on admission Currently within normal limits Avoid nephrotoxic meds- avoiding Zosyn/Vanc combo for empiric abx treatment CAD status post CABG, PVD valvular heart disease (moderate to severe MR) history mitral valve endocarditis/periaortic abscess as per records chronic LBBB Stable hx COPD on home O2 ISAURA on CPAP Stable hyperlipidemia Continue statin Rx DMII insulin requiring suboptimal control as of recent hemoglobin A1c of 9.4 last month basal/bolus while hospitalized, hold home meds Acute on chronic anemia hemoglobin drop from baseline Transfuse pRBCs to maintain hemoglobin of at least 8 given history CAD Hgb after transfusion from 7.5 to 9.1 Mood disorder/paranoia On olanzapine, holding in context of encephalopathy Diet: Clear Liquids DVT prophylaxis: Heparin subcu CODE STATUS: Full code Dispo: PT/OT ordered Admission and Anticipated Discharge Date Admission Date: November 16, 2022 Subjective Pt seen this AM. Lethargic. Arousable and moaning. Could not obtain history. Review of Systems Review of Systems: Unobtainable due to cognitive status Physical Exam Physical Exam: General: Somnolent. No acute distress Skin: No noted rashes or bruises Psych: could not be determined Neuro: Somnolent HEENT: NC/AT Chest: Nontender to palpation. CV: RRR Resp: Breath sounds clear bilaterally, no increased effort of breathing. Abdomen: Soft, nontender, nondistended. Extremities: No edema in lower extremities bilaterally. Results & Data Results & Data Vital Signs (Past 12 Hours) Vital Signs Temp Pulse Pulse Resp BP BP Pulse Ox 11/17/22 11:19 36.8 C 107 H 22 154/67 H 92 11/17/22 08:00 11/17/22 07:26 37.2 C 113 H 21 168/90 H 95 11/17/22 06:33 108 H 154/71 H 11/17/22 06:18 113 H 164/81 H 11/17/22 04:02 37.0 C 107 H 20 143/67 H 97 11/17/22 04:57 36.5 C 108 H 18 155/81 H 98 11/17/22 03:02 36.3 C L 104 H 18 129/57 L 95 11/17/22 03:01 36.3 C L 104 H 18 129/57 L 95 11/17/22 02:32 36.3 C L 102 H 20 133/62 100 11/17/22 02:32 94 11/17/22 02:17 37.2 C 104 H 20 136/51 L 98 11/17/22 02:01 36.3 C L 106 H 20 167/79 H 94 O2 Del Method O2 Flow Rate 11/17/22 11:19 Nasal Cannula 3 11/17/22 08:00 Room Air 11/17/22 07:26 Nasal Cannula 3 11/17/22 06:33 11/17/22 06:18 11/17/22 04:02 3 11/17/22 04:57 11/17/22 03:02 3 11/17/22 03:01 3 11/17/22 02:32 3 11/17/22 02:32 Nasal Cannula 3 11/17/22 02:17 11/17/22 02:01
[2022-11-17] MEDS: DOXYCYCLINE HYCLATE 100 MG in DEXTROSE 5% MINI-B 100 ML IV SCH (19:49)
[2022-11-17] MEDS ORDERED: LANTUS PER UNIT CHARGE SQ SCH (21:00)
[2022-11-18] MEDS ORDERED: IPRATROPIUM BROMIDE NEB SOLN 0.02% 2.5 ML VIAL INH STA (00:07)
[2022-11-18] MEDS: METOPROLOL TARTRATE 1 MG/ML VIAL IV SCH ×4 (00:10→17:29)
[2022-11-18] MEDS: HEPARIN SOD 5,000 UNIT/0.5 ML VIAL SQ SCH ×3 (00:11→16:32)
[2022-11-18] MEDS: metroNIDAZOLE 500 MG/100 ML BAG IV SCH ×3 (02:03→17:31)
[2022-11-18] MEDS: CEFEPIME 2,000 MG in SYRINGE 0 ML IV SCH ×2 (06:01→17:31)
[2022-11-18] MEDS: ALBUMIN 25% 25 GM/100 ML VIAL IV SCH ×3 (06:02→22:32)
[2022-11-18 06:23] LABS: Hematocrit (blood only) 26.4 % (37.0-47.0); Hemoglobin 8.2 g/dl (12.0-16.0); Mean Corpuscular Hemoglobin 28.4 pg (25.0-34.0); Mean Corpuscular Hgb Conc 31.1 g/dL (32.0-36.0); Mean Corpuscular Volume 91.3 fL (80.0-100.0); Mean Platelet Volume 12.3 fL (9.4-12.4); Platelet Count 131 K/uL (130-400); RDW Coefficient of Variation 17.8 % (11.5-14.5); Red Blood Count 2.89 M/uL (4.20-5.40); White Blood Count 19.79 K/ul (4.8-10.8)
[2022-11-18 07:04] LABS: Albumin Globulin Ratio 1.5 (0.9-2); Albumin Level 4.6 gm/dl (3.4-5.0); BUN Creatinine Ratio 26.7 (10-20); Bilirubin,Total 1.3 mg/dl (0.2-1.0); Calcium 9.2 mg/dl (8.6-10.3); Creatinine Clr Calc Pharmacy 44.8 ml/min; Est GFR (Non-African American) 56.1 ml/min; Globulin 3.1 gm/dl (2.5-4.0); Magnesium 2.2 mg/dl (1.7-2.4); Phosphorus 2.4 mg/dl (2.5-4.9); Potassium 3.4 mmol/L (3.5-5.1); Total Protein 7.7 gm/dl (6.0-8.3)
[2022-11-18 07:16] LABS: Basophils # (auto) 0.03 K/uL (0.00-0.20); Basophils % (auto) 0.2 %; Eosinophils # (auto) 0.09 K/uL (0.00-0.50); Eosinophils % (auto) 0.5 %; Hypochromasia Present; Immature Granulocytes # (auto) 0.36 K/uL (0.01-0.20); Immature Granulocytes % (auto) 1.8 %; Lymphocytes # (auto) 1.57 K/uL (1.20-3.40); Lymphocytes % (auto) 7.9 %; Monocytes # (auto) 8.85 K/uL (0.11-0.59); Monocytes % (auto) 44.7 %; Neutrophils # (auto) 8.89 K/uL (1.40-6.50); Neutrophils % (auto) 44.9 %
[2022-11-18] MEDS: DOXYCYCLINE HYCLATE 100 MG in DEXTROSE 5% MINI-B 100 ML IV SCH ×2 (08:12→19:28)
[2022-11-18] MEDS ORDERED: POTASSIUM PHOS 3 MMOL/1 ML INFUSION IV STA (08:50)
[2022-11-18] MEDS ORDERED: LANTUS PER UNIT CHARGE SQ SCH (09:00)
[2022-11-18] MEDS: ASPIRIN 81 MG ECTAB PO SCH (09:07)
[2022-11-18] MEDS: CETIRIZINE HCL 10 MG TABLET PO SCH (09:07)
[2022-11-18] MEDS: CLOPIDOGREL BISULFATE 75 MG TAB PO SCH (09:07)
[2022-11-18] MEDS: ISOSORBIDE MONO EXTENDED REL 30 MG TABCR PO SCH (09:08)
[2022-11-18] MEDS: PANTOprazole 40 MG TAB PO SCH (09:08)
[2022-11-18] MEDS ORDERED: POTASSIUM PHOSPHATE 15 MMOL in SODIUM CHLORIDE 0.9% 250 ML IV ONE (09:15)
[2022-11-18] MEDS: INSULIN ASPART PER UNIT CHARGE SC SCH ×4 (09:17→18:01)
[2022-11-18] MEDS ORDERED: KETOROLAC TROMETHAMINE 15 MG/ML VIAL IV PRN (09:33)
[2022-11-18] MEDS: VANCOMYCIN HCL 1,250 MG in SODIUM CHLORIDE 0.9% 250 ML IV SCH (10:03)
[2022-11-18 10:08] LABS: Appearance Urine Cloudy (Clear); Bacteria Urine Automated Negative (Negative); Bilirubin Urine Negative (Negative); Blood Urine 2+ (Negative); Color Urine Orange; Epithelial Cell Urine Auto >30 /lpf (0-5); Glucose Urine UA Trace (Negative); Ketones Urine 1+ (Negative); Leukocyte Esterase Urine Trace (Negative); Nitrite Urine Negative (Negative); Protein Urine 4+ (Negative); Specific Gravity Urine 1.039 (1.000-1.030); Urobilinogen Urine Negative (Negative)
[2022-11-18 11:00] LABS: Base Excess ABG -4.1 mEq/L (-9-1.8); HCO3 ABG 20 mmol/L (19-24); Oxygen Saturation ABG 97.2 % (90-95); PCO2 ABG 33 mmHg (35-46); PO2 ABG 74 mmHg (80-95); pH ABG 7.39 (7.35-7.45)
--- NOTE | 2022-11-18 11:44 | CT Scan Report ---
CT chest diagnostic wo con CT DOSE: 735.65 mGy.cm CLINICAL HISTORY: 62 years-old Female with sepsis, SOB. 2 sepsis with shortness of breath TECHNIQUE: Multiaxial CT images of the chest were performed without contrast. A dose lowering techni que was utilized adhering to the principles of ALARA. COMPARISON: CT chest 11/14/2022 FINDINGS: Limited exam secondary to positioning. Moderate to marked cardiomegaly. Prior median sternotomy with CABG. Extensive lower elwha coronary artery calcifications. No pericardial effusion or thoracic aortic ane urysm. Dilated pulmonary artery redemonstrated suggestive of pulmonary arterial hypertension. Mild me diastinal and hilar lymphadenopathy is again noted with nodes measuring up to approximately 12 mm. Un remarkable thyroid. Small pleural effusions. Left hemidiaphragmatic elevation. Progressive pulmonary edema with intralobu lar septal thickening, intermixed groundglass and consolidative opacities. Consolidation is most pron ounced within the left lung. Mild left lung volume loss. Dependent right lower lobe opacities suggest probable atelectasis. 4 mm solid nodule of the right upper lobe again noted. No suspicious pulmonary nodules or masses. Mild left lower lobe mucous plugging. Cholecystectomy. Asymmetric left perinephric inflammatory stranding unchanged benign-appearing adrena l gland thickening. Cholecystectomy. Unremarkable soft tissues. Degenerative changes of the shoulders and spine. IMPRESSION: 1. Cardiomegaly with progressive interstitial and alveolar pulmonary edema with small pleural effusio ns. 2. Additional dependent consolidations of the left upper and lower lobes may represent atelectasis ve rsus pneumonia. 3. Unchanged mediastinal and hilar lymphadenopathy. 4. Nonspecific asymmetric left perinephric stranding. Correlate with urinalysis to exclude infection. 5. Additional findings as above. ACT 112: Negative or not required by law. Electronically signed by: Alexi Wu M.D. 11/18/2022 11:43 AM
[2022-11-18] MEDS: ACETAMINOPHEN 1,000 MG/100 ML VIAL IV PRN ×2 (11:50→20:17)
[2022-11-18 12:45] LABS: Allen Test Pos (Pos)
[2022-11-18] MEDS: LANTUS PER UNIT CHARGE SQ SCH (12:50)
--- NOTE | 2022-11-18 13:24 | Pulmonary Consultation ---
Date of Consultation November 18, 2022 Assessment & Plan (1) Encephalopathy: (2) Pleural effusion: (3) Acute respiratory failure with hypoxia: (4) Pulmonary edema: Chronicity: acute Qualified Code(s): J81.0 - Acute pulmonary edema (5) HFrEF (heart failure with reduced ejection fraction): (6) Multifocal pneumonia: Plan CT chest 11/18/2022 personally reviewed: Interlobular thickening appreciated bilaterally especially on the left side Bilateral pleural effusion left greater than the right Questionable consolidative process on the left side Cardiomegaly Minimal significant mediastinal lymphadenopathy 2D echo 10/31/2022: EF 55-60%, moderate to severe MR, mild concentric LVH no pulmonary hypertension ABG 11/18/2022: 7.39/33/74 on 4 L --Acute hypoxic respiratory failure Multifactorial Likely secondary to diastolic CHF with bilateral pleural effusion Left-sided pneumonia Respiratory bio fire negative for everything on 11/16/2022 Procalcitonin 0.38, nasal MRSA positive BNP 467 Thoracentesis 11/03/2022 left-sided, 1300 mL serosanguineous fluid removed,31% lymphocytes,exudative as per LDH, lights criteria Pleural fluid: LDH 242, protein less than 3, glucose 127, pH 7.46 Serum: LDH 339, protein 3.6 Continue with diuretics to keep the patient negative balance BiPAP nightly and as needed shortness of breath will be beneficial --Tobacco abuse Possibility of patient having COPD is there Does not seem to be in exacerbation --Metabolic encephalopathy Likely from underlying sepsis from pneumonia TSH within normal Plan: Pleural effusions are too small to have thoracentesis. Would recommend BiPAP and aggressive diuresis Continue with antibiotics for left-sided pneumonia. Recommend incentive spirometry Pulmonary continue to follow Case was discussed with RN at bedside Please note the above document was generated using voice recognition software. It may contain grammatical, syntax or spelling errors.Any formal questions or concerns about the content, text or information contained within the body of this dictation should be directly addressed to the provider for clarification. History of Present Illness Attending Physician: Gala Napier MD History of Present Illness 62-year-old female present to the hospital with complaints of chest pain Past medical history: Coronary artery disease s/p CABG, moderate to severe MR, left bundle branch block, dyslipidemia, diabetes, tobacco use Pulmonary consulted for shortness of breath and pleural effusion At the time of examination patient was sleeping She was easily arousable. Denied any chest pain Denied any headache She was saturating well on 2 L nasal cannula As per the notes as well as sitter patient has been having bouts of restlessness and agitation on and off She did use BiPAP when the order was placed for at least an hour or so and then she removed it. She is willing to use it again. Denies any chest pain Did complain of shortness of breath but felt better after putting the BiPAP on Denies any nausea or vomiting Has been afebrile Social history: Ex-smoker Allergies Allergy/AdvReac Type Severity Reaction Status Date / Time latex Allergy Intermediate Rash Verified 04/28/22 13:20 Home Medications Medication Instructions Recorded Confirmed Type clopidogrel 75 mg tablet 75 mg PO DAILY 03/16/21 11/16/22 History duloxetine 60 mg capsule,delayed 90 mg PO QAM 03/16/21 11/16/22 History release topiramate 50 mg tablet 50 mg PO BID 03/16/21 11/16/22 History aspirin 81 mg tablet,delayed 81 mg PO DAILY 05/14/21 11/16/22 History release insulin aspart U-100 100 unit/mL 0 unit subcut TID 05/14/21 11/16/22 History (3 mL) subcutaneous pen (Novolog FlexPen U-100 Insulin aspart) nitroglycerin 0.4 mg sublingual 0.4 mg sublingual .PRN/UD PRN 05/14/21 11/16/22 History tablet Chest Pain acetaminophen 500 mg tablet 500 mg PO Q6H PRN Pain 08/23/21 11/16/22 History (Tylenol Extra Strength) furosemide 20 mg tablet (Lasix) 60 mg PO DAILY 08/23/21 11/16/22 History cetirizine 10 mg tablet (Zyrtec) 10 mg PO DAILY 08/02/22 11/16/22 History melatonin 5 mg tablet 5 mg PO HS 08/02/22 11/16/22 History atorvastatin 80 mg tablet 80 mg PO DAILY 08/04/22 11/16/22 History gabapentin 300 mg capsule 300 mg PO BID #60 caps 08/26/22 11/16/22 Rx insulin glargine 100 unit/mL (3 35 unit subcut QAM 10/30/22 11/16/22 History mL) subcutaneous pen (Basaglar KwikPen U-100 Insulin) metoprolol succinate 50 mg 50 mg PO QPM 10/30/22 11/16/22 History tablet,extended release 24 hr metoprolol succinate 50 mg 100 mg PO QAM 10/30/22 11/16/22 History tablet,extended release 24 hr cefdinir 300 mg capsule 300 mg PO BID #18 caps 11/08/22 11/16/22 Rx ondansetron 4 mg disintegrating 4 mg PO Q8H PRN N/V 11/14/22 11/16/22 History tablet isosorbide mononitrate 30 mg 30 mg PO QAM #30 tabs 11/15/22 11/16/22 Rx tablet,extended release 24 hr lisinopril 5 mg tablet (Zestril) 5 mg PO QAM #30 tabs 11/15/22 11/16/22 Rx olanzapine 5 mg tablet 5 mg PO HS 11/16/22 11/16/22 History pantoprazole 40 mg tablet,delayed 40 mg PO DAILY 11/16/22 11/16/22 History release ropinirole 1 mg tablet 1 mg PO QPM 11/16/22 11/16/22 History Patient History Medical History Abscess of aorta Acute on chronic HFrEF (heart failure with reduced ejection fraction) Anxiety Carotid stenosis according to records from 2019 CEA was recommended but patient declined. no objective quantification available Carpal tunnel syndrome, left Chronic congestive heart failure with left ventricular diastolic dysfunction Coronary artery disease Diabetes mellitus, type 2 DVT prophylaxis Encounter for pre-operative examination Fracture of left tibial plateau HFrEF (heart failure with reduced ejection fraction) History of left below knee amputation HTN (hypertension) LBBB (left bundle branch block) MRSA bacteremia Osteomyelitis Psychotic disorder Right foot pain Tobacco use disorder Ulnar neuropathy at elbow of left upper extremity Surgical History Status post cholecystectomy Status post coronary artery bypass grafting Status post hysterectomy Status post ORIF of fracture of ankle R, 2017 Family History Other Diabetes Heart disease Social History Smoking Status: Current some day smoker Tobacco Type: Cigarettes packs per day: 1; Cigarettes Per Day: 10; Second Hand Exposure: Yes; Do You Dip or Chew Tobacco: No; Hx Alcohol Use: No Hx Substance Use: No Preferred Language: Malay Communication Ability: Impaired Estimator Printing Plate Making Required: No Beliefs That Will Affect Care: None marital status: Current Living Situation: Alone Current Living Situation Comment: house Feels Safe at Home: Yes Assistive Devices: Oxygen - Continuous, Walker and Wheelchair Review of Systems Review of Systems: All systems reviewed & are unremarkable except as noted in HPI & below Physical Exam Physical Exam: Constitutional: No acute distress HEENT: EOMI, PERRLA Respiratory system: Decreased air entry bilaterally, no wheeze, rhonchi, positive crackles bilateral lower lobes CVS: S1-S2 positive, positive 3 out of 6 systolic murmur appreciated best at apex Abdomen: Soft, nontender, nondistended, positive bowel sounds x4 Extremities: +2 pulses bilaterally radialis/ dorsalis pedis, no cyanosis, left BKA, +1 pitting edema bilaterally Neuro: Somnolent but easily arousable, oriented to self and place Psych: Unable to assess G/U: Positive Brewer Skin: no rashes, warm and dry Lymphatic: no cervical or axillary lymphadenopathy Results & Data Results & Data Vital Signs (Past 12 Hours) Vital Signs Temp Pulse Pulse Resp BP BP Pulse Ox 11/18/22 12:08 83 132/60 11/18/22 11:54 36.3 C L 100 H 19 140/72 97 11/18/22 11:51 100 H 140/72 11/18/22 08:00 100 H 11/18/22 07:47 37.6 C H 101 H 18 153/73 H 92 11/18/22 06:22 96 H 11/18/22 06:07 102 H 157/78 H 11/18/22 03:25 37.1 C 90 17 133/65 92 O2 Del Method O2 Flow Rate 11/18/22 12:08 11/18/22 11:54 Nasal Cannula 4 11/18/22 11:51 11/18/22 08:00 11/18/22 07:47 Nasal Cannula 4 11/18/22 06:22 11/18/22 06:07 11/18/22 03:25 Nasal Cannula 4 Laboratory Results 11/18/22 06:02 11/18/22 06:02 PG Care Time/CCT Total # of Minutes Spent Total Time Spent with Patient: Total time spent is greater than 50% in coordination of care (as documented) at patient's floor/unit and/or counseling patient: Coding Level of Care Code 17540 INT INP/OBS CARE 3/75MIN Diagnoses Encephalopathy G93.40 Pleural effusion J90 Acute respiratory failure with hypoxia J96.01 Pulmonary edema J81.0 Chronicity: acute HFrEF (heart failure with reduced ejection fraction) I50.20 Multifocal pneumonia J18.9
--- NOTE | 2022-11-18 16:51 | Hospitalist Progress Note ---
Date of Service November 18, 2022 Assessment & Plan (1) Encephalopathy: Plan Pt is a 62yoF with PMHx significant for chronic diastolic heart failure (EF 55 to 60%, TTE 2022), CAD s/p CABG, PVD, valvular heart disease (moderate to severe MR), history mitral valve endocarditis/periaortic abscess, chronic LBBB, chronic respiratory failure on home O2, ISAURA on CPAP, hypertension, hyperlipidemia, DM 2, GERD, chronic anemia, mood disorder and Hx of MRSA bacteremia presenting with AMS. AMS Encephalopathy Per daughter this is new since discharge recently. Head CT with no acute changes, Brain MRI pending WBC significantly elevated but chest XRAY, CT abd/pelvis, UA from 11/16 all without signs of acute infection Repeat UA from 11/18 suggestive of infection, urine Cx pending CTA chest from prior admission notes tree in bud nodularity in the right middle lobe that may represent a mild infectious/inflammatory process. CT chest from 11/18 with pulmonary edema and small pleural effusions, dependent consolidations of the left upper and lower lobes may represent atelectasis versus pneumonia and left perinephric stranding. Lyme testing positive with IgM antibodies at this time, rest of panel pending - noted IgM was previously positive in July 2022. VBG from 11/16 unremarkable Blood Cultures x2 with NGTD MRSA nares positive Source of infection unclear at this time but CT chest from 11/18 suggestive of pneumonia and new UTI. Continue with Cefepime, Vancomycin and Flagyl (avoiding nephrotoxic Vanc/Zosyn combo), as well as doxycycline for the positive Lyme testing. Continue to hold home psychotropic meds- per daughter she has not been taking meds recently Chronic hypoxic respiratory failure Pleural Effusions Pulmonary edema Hx of COPD ISAURA on CPAP Noted on CT chest from 11/18 Pt with previous Hx requiring thoracentesis and Bipap use Pulmonology consult placed- appreciate recs GUY Cr elevated to 1.57 on admission Currently within normal limits Avoid nephrotoxic meds- avoiding Zosyn/Vanc combo for empiric abx treatment CAD status post CABG, PVD valvular heart disease (moderate to severe MR) history mitral valve endocarditis/periaortic abscess as per records chronic LBBB Stable hyperlipidemia Continue statin Rx DMII insulin requiring suboptimal control as of recent hemoglobin A1c of 9.4 last month basal/bolus while hospitalized, hold home meds Acute on chronic anemia hemoglobin drop from baseline Transfuse pRBCs to maintain hemoglobin of at least 8 given history CAD Hgb after transfusion from 7.5 to 9.1 on admission FOBT, iron/b12/folate and further lab studies, consider GI procedure once more stable- noted anemia normocytic Consider holding home plavix and aspirin. Mood disorder/paranoia On olanzapine, holding in context of encephalopathy Diet: Clear Liquids DVT prophylaxis: Hold with anemia requiring transfusion CODE STATUS: Full code Dispo: PT/OT ordered Admission and Anticipated Discharge Date Admission Date: November 16, 2022 Subjective Pt seen in the AM. Per nursing, was agitated and curses whenever something is done but still not back to mental baseline. Moaning. Review of Systems Review of Systems: Unobtainable due to cognitive status Physical Exam Physical Exam: General: Somnolent, moaning. Skin: Bruise on abdomen Psych: could not be determined Neuro: Somnolent HEENT: NC/AT Chest: Nontender to palpation. CV: RRR Resp: Breath sounds clear but decreased bilaterally, no increased effort of breathing. Abdomen: Soft, nontender, nondistended. Extremities: No edema in lower extremities bilaterally. Results & Data Results & Data Vital Signs (Past 12 Hours) Vital Signs Temp Pulse Pulse Resp BP BP Pulse Ox 11/18/22 16:00 88 22 96 11/18/22 15:12 84 11/18/22 13:56 86 26 H 100 11/18/22 13:44 11/18/22 13:30 92 11/18/22 12:08 83 132/60 11/18/22 11:54 36.3 C L 100 H 19 140/72 97 11/18/22 11:51 100 H 140/72 11/18/22 08:00 100 H 11/18/22 07:47 37.6 C H 101 H 18 153/73 H 92 11/18/22 06:22 96 H 11/18/22 06:07 102 H 157/78 H O2 Del Method O2 Flow Rate 11/18/22 16:00 BiPAP 11/18/22 15:12 11/18/22 13:56 2 11/18/22 13:44 Nasal Cannula 2 11/18/22 13:30 Nasal Cannula 2 11/18/22 12:08 11/18/22 11:54 Nasal Cannula 4 11/18/22 11:51 11/18/22 08:00 11/18/22 07:47 Nasal Cannula 4 11/18/22 06:22 11/18/22 06:07
[2022-11-18] MEDS ORDERED: Nursing to Pharmacy Communication SCH (17:00)
[2022-11-18] MEDS ORDERED: OLANZapine 10 MG/2.1 ML SDV IM SCH (19:55)
[2022-11-18] MEDS ORDERED: FUROSEMIDE INJ 20 MG/2 ML VIAL IV ONE (19:59)
[2022-11-18] MEDS ORDERED: OLANZapine 10 MG/2.1 ML SDV IM STA (21:25)
[2022-11-18] MEDS: POTASSIUM CHLORIDE / WTR 10 MEQ/100 ML PLCT IV SCH ×2 (21:35→23:29)
[2022-11-18] MEDS ORDERED: XOPENEX/ATROVENT 1.25mg/0.5MG NEB COMBO NEB STA (23:48)
[2022-11-19] MEDS ORDERED: IPRATROPIUM BROMIDE NEB SOLN 0.02% 2.5 ML VIAL INH STA (00:07)
[2022-11-19] MEDS ORDERED: LEVALBUTEROL 1.25 MG/3 ML NEB NEB STA (00:07)
[2022-11-19] MEDS ORDERED: OLANZapine 10 MG/2.1 ML SDV IM STA (00:09)
--- NOTE | 2022-11-19 00:11 | Communication Note ---
Date of Service: November 19, 2022 Code lolis called at 1155PM, 11/18. Patient noted to be agitated and aggressive with worsening oxygenation. O2 sats dropped down to 70s as per RN. Ap Worsening hypoxemic respiratory failure Multifactorial: CHF HCAP ongoing antibiotic Rx ? Possible COPD exacerbation ICU transfer Supplemental O2 ABG now Stat nebs, Solu-Medrol for possible COPD exacerbation causing worsening oxygenation Additional diuretic Rx
[2022-11-19] MEDS ORDERED: methylPREDNISolone 20 MG in SYRINGE 0 ML IV ONE (00:15)
[2022-11-19] MEDS: INSULIN ASPART PER UNIT CHARGE SC SCH ×5 (00:18→20:22)
[2022-11-19 00:22] LABS: iSTAT Allen Test Pass; iSTAT Art Bld Gas pCO2 Correct 27 mmHg (35-46); iSTAT Art Bld Gas pH Corrected 7.369 (7.35-7.45); iSTAT Arterial Blood Gas HCO3 16 meg/L (19-24); iSTAT Arterial Blood Gas pCO2 27 mmHg (35-46); iSTAT Arterial Blood Gas pH 7.38 (7.35-7.45); iSTAT Arterial Blood Gas pO2 53 mmHg (80-95); iSTAT Arterial Blood Gas pO2 C 55; iSTAT Carbon Dioxide 16 mmol/L (24-31); iSTAT Hematocrit 24 % (37-47); iSTAT Hemoglobin 8.2 g/dl (12.0-16.0); iSTAT Potassium 3.5 mmol/L (3.3-5.0); iSTAT Site R Radial; iSTAT Sodium 149 mmol/L (135-144)
[2022-11-19] MEDS: METOPROLOL TARTRATE 1 MG/ML VIAL IV SCH ×6 (00:26→20:44)
[2022-11-19] MEDS: POTASSIUM CHLORIDE / WTR 10 MEQ/100 ML PLCT IV SCH ×2 (00:34→03:11)
--- NOTE | 2022-11-19 01:14 | Critical Care Progress Note ---
Date of Service November 18, 2022 Assessment & Plan (1) Acute respiratory failure with hypoxia: Plan: Reason Critically Ill: [] Neuro - Encephalopathyunsure of etiology at this time. Consider delirium with underlying mood disorder -CT head 11/17 negative for acute intracranial findings. MRI is currently pending -Previously receiving Zyprexa, now escalated to Precedex drip. We will wean drip as tolerated Cardiac - Diastolic heart failure/mitral regurgEcho 11/05 with EF 55 to 60%, moderate to severe mitral regurg, mild concentric left ventricular hypertrophy -Continue diuresis to maintain negative fluid balance CADhistory of CABG x4 -No ST elevations on EKG, troponins unremarkable -Continue isosorbide mononitrate, MTP, Plavix, ASA, statin -Continuous monitor on telemetry Respiratory - Acute on chronic respiratory failure with hypoxiapatient active smoker with possible underlying COPD, ISAURA with CPAP at night, and moderate to severe MR and diastolic dysfunction all likely playing a role -Cannot rule out underlying pneumonia as well, see ID below -CT chest 11/18 with interlobular thickening bilaterally, bilateral pleural effusions (too small for thoracentesis), questionable consolidative process in the left side, cardiomegaly, minimal significant mediastinal lymphedema -Continue with IV Lasix to maintain negative fluid balance -Continue BiPAP, monitor in ICU as patient is low threshold for requiring intubation -Nebs as needed GI - N.p.o. RENAL/LYTES - Creatinine currently at baseline. Monitor routine BMPs and replete electrolytes as indicated -Hold off on IV fluid resuscitation as we are currently diuresing - Foleystrict I's and O's ENDO - DM type IIcontinue with basal bolus/sliding scale insulin. ICU hyperglycemic protocol TSH within normal limits HEME - Chronic anemia with hemoglobin baseline of 8. Monitor routine CBC and transfuse as indicated ID - Pneumoniapossible left-sided consolidation on CT chest along with leukocytosis. Pro-Jesus within normal limits and currently afebrile -Lyme panel negative, bio fire negative -Patient did have UTI with Klebsiella, completed antibiotic course -Nasal MRSA positive -Sputum culture pending -Continue broad-spectrum antibiotics with cefepime and vancomycin LINES/IV ACCESS - Peripheral IVs DVT PROPHYLAXIS - SCDs, I have personally spent 70 minutes of critical care time in the direct management of this patient. This is a life/limb threatening event. This includes time spent evaluating patient, direct bedside care, chart review, placing orders, interpretation of diagnostic studies, discussion with consultants, patient, and family members, as well as other required patient management activities. This time is exclusive of all separately billable procedures, and teaching time and separate from and in addition to any other critical care service time. Thank you for allowing us to participate in the care of this patient. Please refer to my attending physician's documentation for any further recommendations. (2) COPD (chronic obstructive pulmonary disease): (3) Pleural effusion: (4) Encephalopathy: (5) Multifocal pneumonia: (6) Acute on chronic combined systolic and diastolic CHF (congestive heart failure): (7) PAD (peripheral artery disease): (8) UTI (urinary tract infection): (9) Diabetes mellitus, type 2: (10) HTN (hypertension): (11) Coronary artery disease: Admission and Anticipated Discharge Date Admission Date: November 16, 2022 Subjective 62-year-old female with past medical history diastolic heart failure, CAD s/p CABG x4, PVD, moderate to severe MR, history of mitral valve endocarditis/periaortic abscess, chronic LBBB, COPD, ISAURA, HTN, HLD, DM type II, GERD, mood disorder, tobacco abuse. She was undergoing treatment for encephalopathy and acute respiratory failure with hypoxia with diuresis and BiPAP. She is being followed by pulmonary service. This evening patient had respiratory decompensation in which a code lolis was called. Patient had become increasingly agitated and removed her BiPAP and was significantly tachypneic. ABG revealed PO2 52 on 15 L oxy mask. Patient was transferred emergently to the ICU. Review of Systems Review of Systems: Unobtainable due to cognitive status Physical Exam Constitutional: + thin and + frail appearing Eyes: PERRL, conjunctivae normal, anicteric sclerae ENMT: external ear and nose normal, oropharynx normal Neck: trachea midline, no thyromegaly Respiratory: Coarse crackles auscultated bilateral bases, symmetrical chest wall movement, no wheezing Cardiovascular: Rate/Rhythm: regular rate and regular rhythm; not tachycardic Vessels: no JVD Extremities: no edema Gastrointestinal (Abdomen): normal bowel sounds, soft, nontender, no hepatosplenomegaly Musculoskeletal: no cyanosis or clubbing, extremities motor strength 5/5 Skin: no rashes, warm and dry Neurologic: Confused, no facial droop or dysarthria Psychiatric: Agitated, oriented to person Genitourinary: Indwelling Brewer catheter present Results & Data Results & Data Vital Signs (Past 12 Hours) Vital Signs Temp Pulse Pulse Resp BP BP BP 11/19/22 00:26 106 H 135/77 11/19/22 00:00 135 H 38 H 135/77 11/18/22 23:02 36.9 C 107 H 29 H 167/77 H 11/18/22 18:01 75 145/77 H 11/18/22 18:00 85 145/77 H 11/18/22 17:40 36.7 C 82 22 131/70 11/18/22 17:29 84 131/70 11/18/22 16:00 88 22 11/18/22 15:12 84 11/18/22 13:56 86 26 H 11/18/22 13:44 11/18/22 13:30 Pulse Ox O2 Del Method O2 Flow Rate FiO2 11/19/22 00:26 11/19/22 00:00 98 BiPAP 80 11/18/22 23:02 91 BiPAP 11/18/22 18:01 11/18/22 18:00 11/18/22 17:40 97 BiPAP 11/18/22 17:29 11/18/22 16:00 96 BiPAP 11/18/22 15:12 11/18/22 13:56 100 2 11/18/22 13:44 Nasal Cannula 2 11/18/22 13:30 92 Nasal Cannula 2 Coding Level of Care Code 17554 CRITICAL CARE 1ST 30-74M Diagnoses Acute respiratory failure with hypoxia J96.01 COPD (chronic obstructive pulmonary disease) J44.9 Pleural effusion J90 Encephalopathy G93.40 Multifocal pneumonia J18.9 Acute on chronic combined systolic and diastolic CHF (congestive heart failure) I50.43 PAD (peripheral artery disease) I73.9 UTI (urinary tract infection) N39.0 Diabetes mellitus, type 2 E11.69; Z79.4 Diabetes mellitus complication status: with other specified complication Diabetes mellitus brand manager insulin use: with half-way use HTN (hypertension) I10 Coronary artery disease I25.10 (9) Diabetes mellitus, type 2 Diabetes mellitus complication status: with other specified complication Diabetes mellitus brand manager insulin use: with brand manager use Qualified Code(s): E11.69 - Type 2 diabetes mellitus with other specified complication; Z79.4 - senior care (current) use of insulin
[2022-11-19] MEDS ORDERED: STAT IV Infusion **Titration per Protocol STA (01:30)
[2022-11-19 01:34] LABS: Albumin Globulin Ratio 1.8 (0.9-2); Albumin Level 5.1 gm/dl (3.4-5.0); BUN Creatinine Ratio 34.2 (10-20); Bilirubin,Total 2.1 mg/dl (0.2-1.0); Calcium 9.1 mg/dl (8.6-10.3); Creatinine Clr Calc Pharmacy 41.2 ml/min; Est GFR (African American) 58.9 ml/min; Est GFR (Non-African American) 50.8 ml/min; Globulin 2.9 gm/dl (2.5-4.0); Potassium 3.4 mmol/L (3.5-5.1)
[2022-11-19 01:35] LABS: Basophils # (auto) 0.02 K/uL (0.00-0.20); Basophils % (auto) 0.2 %; Eosinophils % (auto) 0.8 %; Hematocrit (blood only) 21.6 % (37.0-47.0); Hemoglobin 6.7 g/dl (12.0-16.0); Immature Granulocytes # (auto) 0.16 K/uL (0.01-0.20); Immature Granulocytes % (auto) 1.3 %; Lymphocytes # (auto) 1.29 K/uL (1.20-3.40); Lymphocytes % (auto) 10.4 %; Mean Corpuscular Hemoglobin 28.2 pg (25.0-34.0); Mean Corpuscular Volume 90.8 fL (80.0-100.0); Mean Platelet Volume 12.9 fL (9.4-12.4); Monocytes # (auto) 3.51 K/uL (0.11-0.59); Monocytes % (auto) 28.2 %; Neutrophils # (auto) 7.37 K/uL (1.40-6.50); Neutrophils % (auto) 59.1 %; Platelet Count 117 K/uL (130-400); Polychromasia 1+; RDW Standard Deviation 59.7 fL (36.4-46.3); Red Blood Count 2.38 M/uL (4.20-5.40); White Blood Count 12.45 K/ul (4.8-10.8)
[2022-11-19 01:41] LABS: Troponin I High Sensitivity 39.9 pg/ml (0-14)
[2022-11-19] MEDS: dexMEDEtomidine 200 MCG/50 ML BAG IV SCH ×13 (01:44→23:38)
[2022-11-19 02:15] LABS: iSTAT Allen Test Pass; iSTAT Art Bld Gas pCO2 Correct 27 mmHg (35-46); iSTAT Art Bld Gas pH Corrected 7.459 (7.35-7.45); iSTAT Arterial Blood Gas HCO3 19 meg/L (19-24); iSTAT Arterial Blood Gas pCO2 27 mmHg (35-46); iSTAT Arterial Blood Gas pH 7.46 (7.35-7.45); iSTAT Arterial Blood Gas pO2 204 mmHg (80-95); iSTAT Arterial Blood Gas pO2 C 205; iSTAT Carbon Dioxide 20 mmol/L (24-31); iSTAT FiO2 70 %; iSTAT Hematocrit 20 % (37-47); iSTAT Hemoglobin 6.8 g/dl (12.0-16.0); iSTAT Potassium 3.5 mmol/L (3.3-5.0); iSTAT Site L Radial; iSTAT Sodium 149 mmol/L (135-144)
[2022-11-19] MEDS ORDERED: SODIUM CHLORIDE 0.9% 250 ML IV PRN (02:23)
[2022-11-19] MEDS ORDERED: FUROSEMIDE 40 MG/4 ML VIAL IV ONE ×2 (02:30→12:55)
[2022-11-19] MEDS: metroNIDAZOLE 500 MG/100 ML BAG IV SCH ×2 (03:10→09:29)
[2022-11-19 03:44] LABS: Albumin Globulin Ratio 1.9 (0.9-2); Albumin Level 5.3 gm/dl (3.4-5.0); BUN Creatinine Ratio 36.2 (10-20); Calcium 9.9 mg/dl (8.6-10.3); Creatinine Clr Calc Pharmacy 44.8 ml/min; Est GFR (Non-African American) 56.1 ml/min; Globulin 2.8 gm/dl (2.5-4.0); Magnesium 2.1 mg/dl (1.7-2.4); Phosphorus 1.8 mg/dl (2.5-4.9); Potassium 3.6 mmol/L (3.5-5.1); Total Protein 8.1 gm/dl (6.0-8.3)
[2022-11-19 03:47] LABS: Hematocrit (blood only) 20.6 % (37.0-47.0); Hemoglobin 6.5 g/dl (12.0-16.0); Mean Corpuscular Hemoglobin 28.4 pg (25.0-34.0); Mean Corpuscular Hgb Conc 31.6 g/dL (32.0-36.0); Mean Platelet Volume 12.3 fL (9.4-12.4); Platelet Count 115 K/uL (130-400); RDW Coefficient of Variation 18.1 % (11.5-14.5); RDW Standard Deviation 58.7 fL (36.4-46.3); Red Blood Count 2.29 M/uL (4.20-5.40)
[2022-11-19 03:48] LABS: Basophils # (auto) 0.03 K/uL (0.00-0.20); Basophils % (auto) 0.2 %; Eosinophils # (auto) 0.11 K/uL (0.00-0.50); Eosinophils % (auto) 0.7 %; Immature Granulocytes # (auto) 0.17 K/uL (0.01-0.20); Immature Granulocytes % (auto) 1.1 %; Lymphocytes # (auto) 1.55 K/uL (1.20-3.40); Monocytes # (auto) 5.25 K/uL (0.11-0.59); Monocytes % (auto) 33.9 %; Neutrophils # (auto) 8.39 K/uL (1.40-6.50); Neutrophils % (auto) 54.1 %; Polychromasia 1+
[2022-11-19] MEDS: ALBUMIN 25% 25 GM/100 ML VIAL IV SCH (05:58)
[2022-11-19] MEDS: CEFEPIME 2,000 MG in SYRINGE 0 ML IV SCH ×2 (06:18→20:12)
[2022-11-19] MEDS ORDERED: XOPENEX/ATROVENT 1.25mg/0.5MG NEB COMBO NEB SCH (07:00)
[2022-11-19] MEDS: IPRATROPIUM BROMIDE NEB SOLN 0.02% 2.5 ML VIAL INH SCH ×4 (07:18→23:53)
[2022-11-19] MEDS: LEVALBUTEROL 1.25 MG/3 ML NEB NEB SCH ×4 (07:18→23:53)
[2022-11-19 07:37] LABS: Hematocrit (blood only) 26.8 % (37.0-47.0); Hemoglobin 8.3 g/dl (12.0-16.0)
--- NOTE | 2022-11-19 07:38 | XRay Report ---
SINGLE VIEW CHEST CLINICAL HISTORY: Hypoxia. FINDINGS: An AP, portable, semierect chest radiograph is compared to study dated 11/16/2022 and correl ated with chest CT dated 11/18/2022. The examination is degraded by portable technique and patient rot ation. The patient is status post midline sternotomy. The heart is enlarged noting atherosclerotic ca lcification of the thoracic aorta. There is pulmonary vascular congestion with mild interstitial jaylene a. There are trace pleural effusions with dependent atelectasis. No pneumothorax is seen. The skeleta l structures are osteopenic. The bony thorax is grossly intact. Cholecystectomy clips are noted in th e right upper quadrant. IMPRESSION: 1. Cardiomegaly with evidence of congestive failure and mild pulmonary edema. This has worsened as co mpared to 11/16/2022. 2. Small pleural effusions. ACT 112: Negative or not required by law. Electronically signed by: Geovani Dumont M.D. 11/19/2022 7:37 AM
--- NOTE | 2022-11-19 08:06 | Critical Care Progress Note ---
Date of Service November 19, 2022 Assessment & Plan (1) Acute respiratory failure with hypoxia: (2) COPD (chronic obstructive pulmonary disease): (3) Pleural effusion: (4) Encephalopathy: (5) Multifocal pneumonia: (6) Acute on chronic combined systolic and diastolic CHF (congestive heart failure): (7) PAD (peripheral artery disease): (8) UTI (urinary tract infection): (9) Diabetes mellitus, type 2: (10) HTN (hypertension): (11) Coronary artery disease: Plan Reason Critically Ill: 62-year-old female past medical history of moderate to severe MR, coronary artery disease status post CABG, left bundle branch block, dyslipidemia, tobacco use presented to the hospital with altered mental status and pulmonary edema along with left-sided pneumonia. In the ICU for hypoxia and mental changes CT chest 11/18/2022ersonally reviewed: Interlobular thickening appreciated bilaterally especially on the left side Bilateral pleural effusion left greater than the right Questionable consolidative process on the left side Cardiomegaly Minimal significant mediastinal lymphadenopathy Neuro - Encephalopathy Multifactorial -Underlying sepsis from left-sided pneumonia playing a role along with underlying mood disorders, questionable PRES syndrome -CT head 11/17/22 negative for acute intracranial findings. MRI is currently pending -Previously receiving Zyprexa, now escalated to Precedex drip. We will wean drip as tolerated U tox negative, TSH within normal limit Cardiac - --Acute on chronic diastolic heart failure/mitral regurg -Continue diuresis to maintain negative fluid balance 2D echo 10/31/2022: EF 55-60%, moderate to severe MR, mild concentric LVH no pulmonary hypertension CADhistory of CABG x4 -No ST elevations on EKG, troponins unremarkable -On isosorbide mononitrate, MTP, Plavix, ASA, statin -Continuous monitor on telemetry Respiratory - --Acute hypoxic respiratory failure Multifactorial Likely secondary to diastolic CHF with bilateral pleural effusion Left-sided pneumonia Respiratory bio fire negative for everything on 11/16/2022 Procalcitonin 0.38,nasal MRSA positive BNP 467 Thoracentesis 11/03/2022 left-sided, 1300 mL serosanguineous fluid removed,31% lymphocytes,exudative as per LDH, lights criteria Pleural fluid: LDH 242, protein less than 3, glucose 127, pH 7.46 Serum: LDH 339, protein 3.6 Continue with diuretics to keep the patient negative balance BiPAP nightly and as needed shortness of breath will be beneficial --Tobacco abuse Possibility of patient having COPD is there Does not seem to be in exacerbation GI - N.p.o. RENAL/LYTES - -- GUY --> improving Monitor BUN/creatinine Avoid nephrotoxic medications Strict ins and outs - Foleystrict I's and O's ENDO - DM type IIcontinue with basal bolus/sliding scale insulin. ICU hyperglycemic protocol TSH within normal limits HEME - -- Drop in hemoglobin No signs of melena BUN elevated, questionable upper GI bleed Continue with pantoprazole She was if hemoglobin is persistently less than 7 --New onset thrombocytopenia Continue to monitor ID - -- Pneumonia left-sided consolidation on CT chest along with leukocytosis. Pro-Jesus within normal limits and currently afebrile -Lyme panel negative, bio fire negative -Patient did have history of UTI with Klebsiella, completed antibiotic course, urinalysis 11/18/2022 negative for nitrites and bacteria -Nasal MRSA positive -Sputum culture pending -Continue broad-spectrum antibiotics with cefepime and vancomycin --Prophylaxis VTE: IPC GI: Pantoprazole Lines: Peripheral Diet: N.p.o. Plan: In/out: +1.1 L, urine output 1025, +958 since coming to the hospital QTc is 461, will give 5 mg of haloperidol We will try to titrate down Precedex if possible If there is any airway compromise, we will plan to intubate Repeat CBC today. Increase metoprolol to 5 Mg IV every 6 hours, add hydralazine 10 mg IV as needed SBP greater than 150 We will consider another dose of Lasix today. Aim is to keep the patient negative balance Potassium and phosphorus being replaced Discontinue Flagyl. Continue with Vanco and cefepime We will try to see if you are able to get MRI of the brain done. Given the patient's agitation, possibility is low I have personally spent 43 minutes of critical care time in the direct management of this patient. This is a life/limb threatening event. This includes time spent evaluating patient, direct bedside care, chart review, placing orders, interpretation of diagnostic studies, discussion with consultants, patient, and family members, as well as other required patient management activities. This time is exclusive of all separately billable procedures, and teaching time and separate from and in addition to any other critical care service time. Thank you for allowing us to participate in the care of this patient. Please refer to my attending physician's documentation for any further recommendations. Admission and Anticipated Discharge Date Admission Date: November 16, 2022 Subjective Patient seen and examined at bedside. Was on Precedex 1.2 at the time of examin ation Still with bouts of agitation. She knows her name. She moves all her extremities spontaneously but does not follow any commands Has been afebrile Uses BiPAP on and off. Usually takes it off. She was given Lasix when she came to the ICU. She was saturating 95-96% on 3 L nasal cannula. Review of Systems Review of Systems: All systems reviewed & are unremarkable except as noted in Subjective and Unobtainable due to cognitive status Physical Exam Physical Exam: Constitutional: Restless HEENT: EOMI, PERRLA Respiratory system: Decreased air entry bilaterally, no wheeze, rhonchi, positive crackles bilateral lower lobes CVS: S1-S2 positive, positive 3 out of 6 systolic murmur appreciated best at apex Abdomen: Soft, nontender, nondistended, positive bowel sounds x4 Extremities: +2 pulses bilaterally radialis/ dorsalis pedis, no cyanosis, left BKA, +1 pitting edema bilaterally Neuro: Moving all the extremities spontaneously, not following any commands Psych: Unable to assess G/U: Positive Brewer Skin: no rashes, warm and dry Lymphatic: no cervical or axillary lymphadenopathy Results & Data Results & Data Vital Signs (Past 12 Hours) Vital Signs Temp Pulse Pulse Resp BP BP Pulse Ox 11/19/22 07:53 88 20 98 11/19/22 07:00 78 28 H 123/53 L 90 11/19/22 06:45 77 25 H 162/87 H 100 11/19/22 06:14 74 135/79 11/19/22 06:04 36.6 C 75 20 135/74 100 11/19/22 06:36 36.9 C 77 24 155/111 H 99 11/19/22 05:04 76 24 157/82 H 100 11/19/22 04:34 36.5 C 80 25 H 161/93 H 100 11/19/22 04:19 36.7 C 84 31 H 143/81 H 100 11/19/22 04:15 79 19 100 11/19/22 04:15 143/81 H 11/19/22 04:05 77 19 100 11/19/22 04:05 150/69 H 11/19/22 04:00 75 16 100 11/19/22 03:58 80 23 99 11/19/22 03:58 164/94 H 11/19/22 03:00 95 H 23 100 11/19/22 02:00 91 H 26 H 11/19/22 02:00 161/90 H 11/19/22 01:30 91 H 19 11/19/22 03:58 36.8 C 80 18 164/94 H 100 11/19/22 03:01 91 H 21 94 11/19/22 01:17 75 11/19/22 02:15 11/19/22 01:35 90 29 H 94 11/19/22 00:26 106 H 135/77 11/19/22 00:00 135 H 38 H 135/77 98 11/18/22 23:02 36.9 C 107 H 29 H 167/77 H 91 O2 Del Method FiO2 11/19/22 07:53 BiPAP 35 11/19/22 07:00 BiPAP 35 11/19/22 06:45 BiPAP 35 11/19/22 06:14 11/19/22 06:04 11/19/22 06:36 11/19/22 05:04 11/19/22 04:34 11/19/22 04:19 11/19/22 04:15 11/19/22 04:15 11/19/22 04:05 11/19/22 04:05 11/19/22 04:00 11/19/22 03:58 11/19/22 03:58 11/19/22 03:00 11/19/22 02:00 11/19/22 02:00 11/19/22 01:30 11/19/22 03:58 11/19/22 03:01 35 11/19/22 01:17 11/19/22 02:15 CPAP 50 11/19/22 01:35 70 11/19/22 00:26 11/19/22 00:00 BiPAP 80 11/18/22 23:02 BiPAP Laboratory Results 11/19/22 07:17 11/19/22 03:10 Coding Level of Care Code 06192 CRITICAL CARE 1ST 30-74M Diagnoses Acute respiratory failure with hypoxia J96.01 COPD (chronic obstructive pulmonary disease) J44.9 Pleural effusion J90 Encephalopathy G93.40 Multifocal pneumonia J18.9 Acute on chronic combined systolic and diastolic CHF (congestive heart failure) I50.43 PAD (peripheral artery disease) I73.9 UTI (urinary tract infection) N39.0 Diabetes mellitus, type 2 E11.69; Z79.4 Diabetes mellitus complication status: with other specified complication Diabetes mellitus snf insulin use: with terminologist use HTN (hypertension) I10 Coronary artery disease I25.10 (9) Diabetes mellitus, type 2 Diabetes mellitus complication status: with other specified complication Diabetes mellitus snf insulin use: with terminologist use Qualified Code(s): E11.69 - Type 2 diabetes mellitus with other specified complication; Z79.4 - nursing home (current) use of insulin
[2022-11-19] MEDS ORDERED: POTASSIUM PHOS 3 MMOL/1 ML INFUSION IV STA (08:10)
[2022-11-19] MEDS ORDERED: HALOPERIDOL LACTATE 5 MG/ML 1 ML VIAL IV STA ×2 (08:12)
[2022-11-19] MEDS ORDERED: POTASSIUM PHOSPHATE 21 MMOL in SODIUM CHLORIDE 0.9% 500 ML IV ONE (08:15)
[2022-11-19] MEDS: PANTOprazole 40 MG in SYRINGE 0 ML IV SCH ×2 (08:45→20:12)
[2022-11-19] MEDS ORDERED: ENOXAPARIN INJ 40 MG/0.4 ML SYR SQ SCH (09:00)
[2022-11-19] MEDS: hydrALAZINE HCL 20 MG/ML VIAL IV PRN ×2 (09:19→16:26)
[2022-11-19] MEDS ORDERED: PHARMACY GLYCEMIC MGMT CONSULT PRN (09:37)
--- NOTE | 2022-11-19 09:47 | Hospitalist Progress Note ---
Date of Service November 19, 2022 Assessment & Plan (1) Encephalopathy: Plan Pt is a 62yoF with PMHx significant for chronic diastolic heart failure (EF 55 to 60%, TTE 2022), CAD s/p CABG, PVD, valvular heart disease (moderate to severe MR), history mitral valve endocarditis/periaortic abscess, chronic LBBB, chronic respiratory failure on home O2, ISAURA on CPAP, hypertension, hyperlipidemia, DM 2, GERD, chronic anemia, mood disorder and Hx of MRSA bacteremia presenting with AMS. AMS Encephalopathy Per daughter this is new since discharge recently. Head CT with no acute changes, Brain MRI pending WBC significantly elevated but chest XRAY, CT abd/pelvis, UA from 11/16 all without signs of acute infection Repeat UA from 11/18 suggestive of infection, urine Cx pending CTA chest from prior admission notes tree in bud nodularity in the right middle lobe that may represent a mild infectious/inflammatory process. CT chest from 11/18 with pulmonary edema and small pleural effusions, dependent consolidations of the left upper and lower lobes may represent atelectasis versus pneumonia and left perinephric stranding. Lyme testing positive with IgM antibodies at this time, rest of panel pending - noted IgM was previously positive in July 2022. VBG from 11/16 unremarkable Blood Cultures x2 with NGTD MRSA nares positive Source of infection unclear at this time but CT chest from 11/18 suggestive of pneumonia and new UTI. Previously on Cefepime, Vancomycin and Flagyl (avoiding nephrotoxic Vanc/Zosyn combo), as well as doxycycline for the positive Lyme testing. ICU continuing Cefepime and Vancomycin. Continue to hold home psychotropic meds- per daughter she has not been taking meds recently On Precedex with occasional doses of Zyprexa Chronic hypoxic respiratory failure Pleural Effusions Pulmonary edema Hx of COPD ISAURA on CPAP Noted on CT chest from 11/18 Pt with previous Hx requiring thoracentesis and Bipap use Pulmonology consult placed- appreciate recs GUY Cr elevated to 1.57 on admission Currently within normal limits Avoid nephrotoxic meds CAD status post CABG, PVD valvular heart disease (moderate to severe MR) history mitral valve endocarditis/periaortic abscess as per records chronic LBBB Stable hyperlipidemia Continue statin Rx DMII insulin requiring suboptimal control as of recent hemoglobin A1c of 9.4 last month basal/bolus while hospitalized, hold home meds Acute on chronic anemia hemoglobin drop from baseline Transfuse pRBCs to maintain hemoglobin of at least 8 given history CAD Hgb after transfusion from 7.5 to 9.1 on admission FOBT, iron/b12/folate and further lab studies, consider GI procedure once more stable- noted anemia normocytic Consider holding home plavix and aspirin. Mood disorder/paranoia On olanzapine Diet: Clear Liquids DVT prophylaxis: Hold with anemia requiring transfusion CODE STATUS: Full code Dispo: PT/OT ordered Admission and Anticipated Discharge Date Admission Date: November 16, 2022 Subjective Pt seen this AM. Was screaming and trying to bite the nurse's hand. Daughter updated this morning after transfer to the ICU. Review of Systems Review of Systems: Unobtainable due to cognitive status Physical Exam Physical Exam: General:Agitated, fighting Skin: Bruise on abdomen Psych: could not be determined Neuro: Agitated, m HEENT: NC/AT Chest: Nontender to palpation. CV: RRR Resp: Breath sounds clear but decreased bilaterally, no increased effort of breathing. Abdomen: Soft, nontender, nondistended. Extremities: L BKA, no edema in right lower extremity Results & Data Results & Data Vital Signs (Past 12 Hours) Vital Signs Temp Pulse Pulse Resp BP BP Pulse Ox 11/19/22 08:00 37.1 C 11/19/22 07:53 88 20 98 11/19/22 07:00 78 28 H 123/53 L 90 11/19/22 06:45 77 25 H 162/87 H 100 11/19/22 06:14 74 135/79 11/19/22 06:04 36.6 C 75 20 135/74 100 11/19/22 06:36 36.9 C 77 24 155/111 H 99 11/19/22 05:04 76 24 157/82 H 100 11/19/22 04:34 36.5 C 80 25 H 161/93 H 100 11/19/22 04:19 36.7 C 84 31 H 143/81 H 100 11/19/22 04:15 79 19 100 11/19/22 04:15 143/81 H 11/19/22 04:05 77 19 100 11/19/22 04:05 150/69 H 11/19/22 04:00 75 16 100 11/19/22 03:58 80 23 99 11/19/22 03:58 164/94 H 11/19/22 03:00 95 H 23 100 11/19/22 02:00 91 H 26 H 11/19/22 02:00 161/90 H 11/19/22 01:30 91 H 19 11/19/22 03:58 36.8 C 80 18 164/94 H 100 11/19/22 03:01 91 H 21 94 11/19/22 01:17 75 11/19/22 02:15 11/19/22 01:35 90 29 H 94 11/19/22 00:26 106 H 135/77 11/19/22 00:00 135 H 38 H 135/77 98 11/18/22 23:02 36.9 C 107 H 29 H 167/77 H 91 O2 Del Method FiO2 11/19/22 08:00 11/19/22 07:53 BiPAP 35 11/19/22 07:00 BiPAP 35 11/19/22 06:45 BiPAP 35 11/19/22 06:14 11/19/22 06:04 11/19/22 06:36 11/19/22 05:04 11/19/22 04:34 11/19/22 04:19 11/19/22 04:15 11/19/22 04:15 11/19/22 04:05 11/19/22 04:05 11/19/22 04:00 11/19/22 03:58 11/19/22 03:58 11/19/22 03:00 11/19/22 02:00 11/19/22 02:00 11/19/22 01:30 11/19/22 03:58 11/19/22 03:01 35 11/19/22 01:17 11/19/22 02:15 CPAP 50 11/19/22 01:35 70 11/19/22 00:26 11/19/22 00:00 BiPAP 80 11/18/22 23:02 BiPAP
[2022-11-19] MEDS: VANCOMYCIN HCL 1,250 MG in SODIUM CHLORIDE 0.9% 250 ML IV SCH (10:12)
[2022-11-19] MEDS: LANTUS PER UNIT CHARGE SQ SCH ×2 (10:12→20:23)
[2022-11-19] MEDS ORDERED: LANTUS PER UNIT CHARGE SQ SCH (10:15)
--- NOTE | 2022-11-19 10:18 | Pharmacy Report ---
Pharmacy PK ABX Note - Date of Service November 19, 2022 - Assessment and Plan Assessment * 62 year old F receiving cefepime and vancomycin for pulmonary coverage * Pertinent microbiologic data includes: Positive MRSA Nasal Swab * SCr downtrending to 1.05mg/dL. Vancomycin * Random level this AM (~17hr level, non steady state), 15mcg/mL. Predicted to achieve ssAUC 524mg/L.hr- therapeutic. Plan Vancomycin * Continue 1250 mg IV every 24 hours * Repeat level in ~48h Pharmacy will continue to follow and will adjust dose/frequency as necessary. Thank you. Pharmacy has transitioned to AUC monitoring for vancomycin. AUC/ELI is the preferred PK/PD target and is associated with decreased risk of nephrotoxicity compared to traditional trough targets.
[2022-11-19] MEDS: VANCOMYCIN HCL 1,250 MG in DEXTROSE 5% 250 ML IV SCH (10:19)
[2022-11-19 10:23] LABS: Hematocrit (blood only) 25.9 % (37.0-47.0); Hemoglobin 8.4 g/dl (12.0-16.0); Mean Corpuscular Hemoglobin 29.5 pg (25.0-34.0); Mean Corpuscular Hgb Conc 32.4 g/dL (32.0-36.0); Mean Corpuscular Volume 90.9 fL (80.0-100.0); Mean Platelet Volume 12.1 fL (9.4-12.4); Platelet Count 99 K/uL (130-400); RDW Coefficient of Variation 17.4 % (11.5-14.5); Red Blood Count 2.85 M/uL (4.20-5.40); White Blood Count 12.14 K/ul (4.8-10.8)
[2022-11-19 10:39] LABS: Basophils # (auto) 0.02 K/uL (0.00-0.20); Basophils % (auto) 0.2 %; Eosinophils # (auto) 0.03 K/uL (0.00-0.50); Eosinophils % (auto) 0.2 %; Immature Granulocytes # (auto) 0.18 K/uL (0.01-0.20); Immature Granulocytes % (auto) 1.5 %; Lymphocytes # (auto) 0.96 K/uL (1.20-3.40); Lymphocytes % (auto) 7.9 %; Monocytes # (auto) 3.33 K/uL (0.11-0.59); Monocytes % (auto) 27.4 %; Neutrophils # (auto) 7.62 K/uL (1.40-6.50); Neutrophils % (auto) 62.8 %; Polychromasia 1+
[2022-11-19] MEDS ORDERED: METOPROLOL TARTRATE 1 MG/ML VIAL IV SCH (12:00)
--- NOTE | 2022-11-19 12:17 | Electrocardiogram Report ---
Test Reason : Blood Pressure : / mmHG Vent. Rate : 085 BPM Atrial Rate : 085 BPM P-R Int : 138 ms QRS Dur : 092 ms QT Int : 388 ms P-R-T Axes : 066 083 046 degrees QTc Int : 461 ms Normal sinus rhythm Normal ECG When compared with ECG of 16-NOV-2022 15:24, Nonspecific T wave abnormality no longer evident in Lateral leads Confirmed by Macario Candelaria ([id number]) on 11/19/2022 12:16:56 PM Referred By: REFERRED SELF Confirmed By:Macario Candelaria
[2022-11-19] MEDS: ACETAMINOPHEN 1,000 MG/100 ML VIAL IV PRN (12:25)
[2022-11-19] MEDS: ASPIRIN 81 MG ECTAB PO SCH (13:14)
[2022-11-19] MEDS: ISOSORBIDE MONO EXTENDED REL 30 MG TABCR PO SCH (13:14)
--- NOTE | 2022-11-19 13:38 | Pharmacy Report ---
Pharmacy Glycemic Short Note 2 - Date of Service November 19, 2022 - Glycemic Short BSG Results (Last 24 hours): 11/18/22 11/18/22 11/19/22 17:53 23:46 00:36 Glucose 166 H POC Glucose 131 H 195 H 11/19/22 11/19/22 11/19/22 03:10 05:53 11:41 Glucose 151 H POC Glucose 222 H 324 H* 11/19/22 11:43 Glucose POC Glucose 318 H* OUTPATIENT ANTIDIABETIC REGIMEN: * Basaglar 35 units SC qAM * Novolog TID SSI HbA1c: 9.4% (10/31/22) ASSESSMENT: * JETT is a 62 year old female known to pharmacy glycemic consult service * Patient has complicated PMH w/ multiple comorbidities including CAD, hx endocarditis, valvular heart disease, COPD, anemia, T2DM, etc. * Admitted on 11/16/22 w/ encephalopathy (likely multifactorial in nature) * BSGs have been labile since admission, pharmacy consulted for glycemic management on 11/19 * Currently receiving broad spectrum antibiotics (vancomycin/cefepime) * Precedex infusing PLAN FOR INPATIENT GLYCEMIC CONTROL: * Hold outpatient oral diabetes medications * Basal insulin * Lantus 25 units SQ daily * Lantus 0-10 units SC HS * Bolus insulin * NovoLog per scale ACHS or Q6hrs while NPO * Goal Range: Low 110 mg/dL - High 140 mg/dL * Correction Factor: 25 mg/dL/unit * Nutritional / Prandial insulin per carb ratio of 1 unit per 8 grams CHO consumed
[2022-11-19 17:29] LABS: BUN Creatinine Ratio 38.7 (10-20); Calcium 9.6 mg/dl (8.6-10.3); Creatinine Clr Calc Pharmacy 46.3 ml/min; Est GFR (African American) 60.8 ml/min; Est GFR (Non-African American) 52.4 ml/min; Potassium 4.1 mmol/L (3.5-5.1)
[2022-11-19] MEDS: ICU ELECTROLYTE REPLACEMENT PROTOCOL SCH (18:40)
[2022-11-19] MEDS ORDERED: HALOPERIDOL LACTATE 5 MG/ML 1 ML VIAL ONE (19:50)
[2022-11-19] MEDS ORDERED: HALOPERIDOL LACTATE 5 MG/ML 1 ML VIAL IM STA (20:09)
[2022-11-19] MEDS ORDERED: LORazepam 2 MG/1 ML VIAL IV STA (20:58)
[2022-11-19] MEDS ORDERED: LORazepam 2 MG/1 ML VIAL ONE (21:04)
--- NOTE | 2022-11-19 22:18 | CT Scan Report ---
CT SCAN OF THE BRAIN WITHOUT IV CONTRAST CLINICAL HISTORY: Change in mental status. Unequal pupils. COMPARISON STUDY: CT of the brain dated 11/16/2022. TECHNIQUE: Unenhanced axial CT scan of the brain is performed from the vertex to the skull base. A do se lowering technique was utilized adhering to the principles of ALARA. CT DOSE: 1499.97 mGy.cm FINDINGS: Brain parenchyma: There is age-related involutional change noting minimal microangiopathic disease. T here is no hemorrhage, mass effect, or evidence of acute territorial ischemia by CT criteria. Yuen-wh ite matter differentiation is preserved. No extra-axial fluid collection is seen. Ventricles, sulci, cisterns: Prominent secondary to involutional change. Intracranial vasculature: There is atherosclerotic calcification of the cavernous carotid arteries. Calvarium: Unremarkable. Sinuses and mastoids: The paranasal sinuses are clear. The mastoid air cells are well pneumatized. Orbits: The bony orbits are grossly intact. There are bilateral ocular lens implants. IMPRESSION: There is no hemorrhage, mass effect, or evidence of acute territorial ischemia by CT issa reyes. No change from 11/16/2022. ACT 112: Negative or not required by law. Electronically signed by: Geovani Dumont M.D. 11/19/2022 10:15 PM
[2022-11-19] MEDS ORDERED: LORazepam 2 MG/1 ML VIAL IM STA (22:28)
[2022-11-20] MEDS: hydrALAZINE HCL 20 MG/ML VIAL IV PRN (00:25)
[2022-11-20] MEDS: INSULIN ASPART PER UNIT CHARGE SC SCH ×7 (00:27→20:38)
[2022-11-20] MEDS: dexMEDEtomidine 200 MCG/50 ML BAG IV SCH ×7 (01:32→08:41)
[2022-11-20] MEDS: METOPROLOL TARTRATE 1 MG/ML VIAL IV SCH ×3 (02:49→10:52)
[2022-11-20 05:18] LABS: Basophils # (auto) 0.02 K/uL (0.00-0.20); Basophils % (auto) 0.2 %; Eosinophils # (auto) 0.02 K/uL (0.00-0.50); Eosinophils % (auto) 0.2 %; Hematocrit (blood only) 25.4 % (37.0-47.0); Immature Granulocytes # (auto) 0.11 K/uL (0.01-0.20); Immature Granulocytes % (auto) 1.1 %; Lymphocytes # (auto) 1.21 K/uL (1.20-3.40); Lymphocytes % (auto) 11.9 %; Mean Corpuscular Hemoglobin 29.1 pg (25.0-34.0); Mean Corpuscular Hgb Conc 31.5 g/dL (32.0-36.0); Mean Corpuscular Volume 92.4 fL (80.0-100.0); Mean Platelet Volume 12.5 fL (9.4-12.4); Monocytes % (auto) 25.6 %; Neutrophils # (auto) 6.21 K/uL (1.40-6.50); Nucleated RBC # (auto) 0.03 K/uL (0.00-0.12); Nucleated RBC % (auto) 0.3 %; Platelet Count 122 K/uL (130-400); RDW Coefficient of Variation 17.9 % (11.5-14.5); RDW Standard Deviation 59.6 fL (36.4-46.3); Red Blood Count 2.75 M/uL (4.20-5.40); White Blood Count 10.17 K/ul (4.8-10.8)
[2022-11-20] MEDS: ACETAMINOPHEN 1,000 MG/100 ML VIAL IV PRN ×2 (05:24→10:47)
[2022-11-20] MEDS: CEFEPIME 2,000 MG in SYRINGE 0 ML IV SCH ×2 (05:29→17:41)
[2022-11-20 05:35] LABS: Albumin Globulin Ratio 1.6 (0.9-2); Albumin Level 4.7 gm/dl (3.4-5.0); BUN Creatinine Ratio 44.6 (10-20); Bilirubin,Total 2.1 mg/dl (0.2-1.0); Calcium 9.4 mg/dl (8.6-10.3); Creatinine Clr Calc Pharmacy 45.9 ml/min; Est GFR (African American) 60.1 ml/min; Est GFR (Non-African American) 51.9 ml/min; Globulin 2.9 gm/dl (2.5-4.0); Phosphorus 2.6 mg/dl (2.5-4.9); Total Protein 7.6 gm/dl (6.0-8.3)
[2022-11-20] MEDS: ICU ELECTROLYTE REPLACEMENT PROTOCOL SCH ×2 (05:38→18:11)
[2022-11-20] MEDS: MAGNESIUM SULFATE / D5W 1 GM/100 ML BAG IV SCH ×2 (05:51→09:01)
[2022-11-20] MEDS: IPRATROPIUM BROMIDE NEB SOLN 0.02% 2.5 ML VIAL INH SCH ×3 (07:24→19:45)
[2022-11-20] MEDS: LEVALBUTEROL 1.25 MG/3 ML NEB NEB SCH ×3 (07:24→19:45)
--- NOTE | 2022-11-20 08:08 | Critical Care Progress Note ---
Date of Service November 20, 2022 Assessment & Plan (1) Acute respiratory failure with hypoxia: (2) COPD (chronic obstructive pulmonary disease): (3) Pleural effusion: (4) Encephalopathy: (5) Multifocal pneumonia: (6) Acute on chronic combined systolic and diastolic CHF (congestive heart failure): (7) PAD (peripheral artery disease): (8) UTI (urinary tract infection): (9) Diabetes mellitus, type 2: (10) HTN (hypertension): (11) Coronary artery disease: Plan Reason Critically Ill: 62-year-old female past medical history of moderate to severe MR, coronary artery disease status post CABG, left bundle branch block, dyslipidemia, tobacco use presented to the hospital with altered mental status and pulmonary edema along with left-sided pneumonia. In the ICU for hypoxia and mental changes CT chest 11/18/2022ersonally reviewed: Interlobular thickening appreciated bilaterally especially on the left side Bilateral pleural effusion left greater than the right Questionable consolidative process on the left side Cardiomegaly Minimal significant mediastinal lymphadenopathy Neuro - Encephalopathy Multifactorial -Underlying sepsis from left-sided pneumonia playing a role along with underlying mood disorders, questionable PRES syndrome -CT head 11/17/22 negative for acute intracranial findings. -Previously receiving Zyprexa, now escalated to Precedex drip. We will wean drip as tolerated U tox negative, TSH within normal limit Cardiac - --Acute on chronic diastolic heart failure/mitral regurgitation -Continue diuresis to maintain negative fluid balance 2D echo 10/31/2022: EF 55-60%, moderate to severe MR, mild concentric LVH no pulmonary hypertension CADhistory of CABG x4 -No ST elevations on EKG, troponins unremarkable -On isosorbide mononitrate, MTP, Plavix, ASA, statin -Continuous monitor on telemetry Respiratory - --Acute hypoxic respiratory failure Multifactorial Likely secondary to diastolic CHF with bilateral pleural effusion Left-sided pneumonia Respiratory bio fire negative for everything on 11/16/2022 Procalcitonin 0.38,nasal MRSA positive BNP 467 Thoracentesis 11/03/2022 left-sided, 1300 mL serosanguineous fluid removed,31% lymphocytes,exudative as per LDH, lights criteria Pleural fluid: LDH 242, protein less than 3, glucose 127, pH 7.46 Serum: LDH 339, protein 3.6 Continue with diuretics to keep the patient negative balance BiPAP nightly and as needed shortness of breath will be beneficial --Tobacco abuse Possibility of patient having COPD is there Does not seem to be in exacerbation GI - N.p.o. RENAL/LYTES - -- GUY --> improving Monitor BUN/creatinine Avoid nephrotoxic medications Strict ins and outs - Foleystrict I's and O's ENDO - DM type IIcontinue with basal bolus/sliding scale insulin. ICU hyperglycemic protocol TSH within normal limits HEME - -- Drop in hemoglobin No signs of melena BUN elevated, questionable upper GI bleed Continue with pantoprazole Patient has been transfused 2 times so far, once in the ICU --New onset thrombocytopenia Continue to monitor ID - -- Pneumonialeft-sided consolidation on CT chest along with leukocytosis. Pro-Jesus within normal limits and currently afebrile -Lyme panel negative, bio fire negative -Patient did have history of UTI with Klebsiella, completed antibiotic course, urinalysis 11/18/2022 negative for nitrites and bacteria -Nasal MRSA positive -Sputum culture pending -Continue broad-spectrum antibiotics with cefepime and vancomycin --Prophylaxis VTE: IPC GI: Pantoprazole Lines: Peripheral Diet: N.p.o. Plan: In/out: +546, urine output 1120, +2.2 L since coming to the hospital Chest x-ray from today does show improvement compared to before. This is likely from the BiPAP while she was on why they took the chest x-ray QTc has improved. We will try to titrate down Precedex if possible If there is any airway compromise, we will plan to intubate Continue with Vanco and cefepime. Given the irregular pupil size which is new compared to yesterday. Plan will be to intubate her and send her to MRI Patient did have cataract surgery in the past, which might be one of the reason why the right pupil is more dilated than the left. Patient's sodium is 150. We will give 250 free water through the OGD once she is intubated. Repeat BMP later today. We will start the patient on tube feeds Patient had no bowel movement since coming to the hospital we will start the patient on Colace and senna Patient's family was updated at bedside I have personally spent 40 minutes of critical care time in the direct management of this patient. This is a life/limb threatening event. This includes time spent evaluating patient, direct bedside care, chart review, placing orders, interpretation of diagnostic studies, discussion with consultants, patient, and family members, as well as other required patient management activities. This time is exclusive of all separately billable procedures, and teaching time and separate from and in addition to any other critical care service time. Thank you for allowing us to participate in the care of this patient. Please refer to my attending physician's documentation for any further recommendations. Admission and Anticipated Discharge Date Admission Date: November 16, 2022 Subjective Patient seen and examined at bedside. No acute distress She was on Precedex 0.7 at the time of examination Saturating well on BiPAP She did have bouts of agitation overnight for which she required haloperidol as well as Ativan. Review of Systems Review of Systems: All systems reviewed & are unremarkable except as noted in Subjective Physical Exam Physical Exam: Constitutional: Comfortable HEENT: pupil 4 mm right, 2 mm left with sluggish response Respiratory system:Decreased air entry bilaterally, no wheeze, rhonchi, positive crackles bilateral lower lobes CVS: S1-S2 positive,positive 3 out of 6 systolic murmur appreciated best at apex Abdomen: Soft, nontender, nondistended, positive bowel sounds x4 Extremities: +2 pulses bilaterally radialis/ dorsalis pedis, no cyanosis,left BKA, +1 pitting edema bilaterally Neuro:Moving all the extremities spontaneously, not following any commands Psych:Unable to assess G/U:Positive Brewer Skin: no rashes, warm and dry Lymphatic: no cervical or axillary lymphadenopathy Results & Data Results & Data Vital Signs (Past 12 Hours) Vital Signs Temp Pulse Pulse Resp BP Pulse Ox O2 Del Method 11/20/22 07:24 86 20 100 11/20/22 07:24 85 20 97 BiPAP 11/20/22 06:30 157/77 H 11/20/22 06:30 74 28 H 100 11/20/22 06:00 74 28 H 100 11/20/22 06:00 149/74 H 11/20/22 05:30 76 28 H 100 11/20/22 05:30 158/83 H 11/20/22 05:00 78 29 H 100 11/20/22 05:40 75 158/83 H 11/20/22 04:30 79 28 H 100 11/20/22 04:30 151/75 H 11/20/22 04:00 79 30 H 100 11/20/22 04:00 150/72 H 11/20/22 03:30 150/75 H 11/20/22 03:30 78 28 H 99 11/20/22 03:00 78 27 H 99 11/20/22 03:00 146/81 H 11/20/22 02:30 148/72 H 11/20/22 02:30 81 28 H 99 11/20/22 02:00 82 27 H 99 11/20/22 02:00 146/77 H 11/20/22 01:30 147/69 H 11/20/22 01:30 83 28 H 100 11/20/22 01:00 84 27 H 100 11/20/22 01:00 139/85 11/20/22 00:30 84 28 H 100 11/20/22 00:30 161/87 H 11/20/22 04:00 38.1 C H 11/20/22 05:24 151/75 H 11/20/22 02:39 82 28 H 99 11/20/22 03:07 78 146/81 H 11/20/22 02:49 82 148/72 H 11/20/22 00:20 84 25 H 100 11/20/22 00:10 82 26 H 100 11/20/22 00:00 79 26 H 100 11/20/22 00:00 36.7 C 157/79 H 11/19/22 23:50 78 26 H 100 11/19/22 23:40 79 24 100 11/19/22 23:53 78 26 H 100 11/19/22 23:30 79 24 100 11/19/22 23:30 152/92 H 11/19/22 23:00 80 25 H 98 11/19/22 23:00 155/78 H 11/19/22 22:30 81 27 H 100 11/19/22 22:30 162/79 H 11/19/22 21:30 85 27 H 100 11/19/22 21:30 166/76 H 11/19/22 21:00 85 28 H 100 11/19/22 21:00 162/71 H 11/19/22 22:51 162/79 H 11/19/22 22:31 83 31 H 93 11/19/22 20:55 93 H 30 H 100 11/19/22 20:55 93 H 30 H 100 BiPAP 11/19/22 20:50 86 28 H 99 11/19/22 20:40 88 28 H 100 11/19/22 20:30 85 26 H 100 11/19/22 20:30 161/80 H 11/19/22 20:22 91 H 29 H 100 11/19/22 20:22 155/81 H 11/19/22 20:20 92 H 28 H 100 11/19/22 20:10 103 H 36 H 100 11/19/22 20:08 186/98 H 11/19/22 20:08 110 H 39 H 100 11/19/22 20:44 90 161/80 H FiO2 11/20/22 07:24 30 11/20/22 07:24 30 11/20/22 06:30 11/20/22 06:30 11/20/22 06:00 11/20/22 06:00 11/20/22 05:30 11/20/22 05:30 11/20/22 05:00 11/20/22 05:40 11/20/22 04:30 11/20/22 04:30 11/20/22 04:00 11/20/22 04:00 11/20/22 03:30 11/20/22 03:30 11/20/22 03:00 11/20/22 03:00 11/20/22 02:30 11/20/22 02:30 11/20/22 02:00 11/20/22 02:00 11/20/22 01:30 11/20/22 01:30 11/20/22 01:00 11/20/22 01:00 11/20/22 00:30 11/20/22 00:30 11/20/22 04:00 11/20/22 05:24 11/20/22 02:39 40 11/20/22 03:07 11/20/22 02:49 11/20/22 00:20 11/20/22 00:10 11/20/22 00:00 11/20/22 00:00 11/19/22 23:50 11/19/22 23:40 11/19/22 23:53 40 11/19/22 23:30 11/19/22 23:30 11/19/22 23:00 11/19/22 23:00 11/19/22 22:30 11/19/22 22:30 11/19/22 21:30 11/19/22 21:30 11/19/22 21:00 11/19/22 21:00 11/19/22 22:51 11/19/22 22:31 40 11/19/22 20:55 35 11/19/22 20:55 35 11/19/22 20:50 11/19/22 20:40 11/19/22 20:30 11/19/22 20:30 11/19/22 20:22 11/19/22 20:22 11/19/22 20:20 11/19/22 20:10 11/19/22 20:08 11/19/22 20:08 11/19/22 20:44 Laboratory Results 11/20/22 04:59 11/20/22 04:59 Coding Level of Care Code 27025 CRITICAL CARE 1ST 30-74M Diagnoses Acute respiratory failure with hypoxia J96.01 COPD (chronic obstructive pulmonary disease) J44.9 Pleural effusion J90 Encephalopathy G93.40 Multifocal pneumonia J18.9 Acute on chronic combined systolic and diastolic CHF (congestive heart failure) I50.43 PAD (peripheral artery disease) I73.9 UTI (urinary tract infection) N39.0 Diabetes mellitus, type 2 E11.69; Z79.4 Diabetes mellitus complication status: with other specified complication Diabetes mellitus fdc insulin use: with ad terminal makeup operator use HTN (hypertension) I10 Coronary artery disease I25.10 Time Spent (min) 40 (9) Diabetes mellitus, type 2 Diabetes mellitus complication status: with other specified complication Diabetes mellitus fdc insulin use: with ad terminal makeup operator use Qualified Code(s): E11.69 - Type 2 diabetes mellitus with other specified complication; Z79.4 - terminal supervisor (current) use of insulin
--- NOTE | 2022-11-20 08:15 | XRay Report ---
SINGLE VIEW CHEST CLINICAL HISTORY: Follow-up congestive failure. FINDINGS: An AP, portable, upright chest radiograph is compared to study dated 11/19/2022 and correlat ed with chest CT dated 11/18/2022. The patient is status post midline sternotomy. The heart is enlarge d noting atherosclerotic calcification of the thoracic aorta. There is persistent pulmonary vascular congestion. Airspace opacities likely represent mild pulmonary edema. There are trace pleural effusio ns with dependent atelectasis. No pneumothorax is seen. The skeletal structures are osteopenic. The b davina thorax is grossly intact. Cholecystectomy clips are noted in the right upper quadrant. IMPRESSION: 1. Cardiomegaly with evidence of congestive failure. Mild bilateral airspace opacities likely represe nt pulmonary edema. Correlate clinically for evidence of a superimposed pneumonia. Findings are simil ar to yesterday. 2. Trace pleural effusions. ACT 112: Negative or not required by law. Electronically signed by: Geovani Dumont M.D. 11/20/2022 8:14 AM
[2022-11-20] MEDS: ASPIRIN 81 MG ECTAB PO SCH (08:44)
[2022-11-20] MEDS: ISOSORBIDE MONO EXTENDED REL 30 MG TABCR PO SCH (08:44)
[2022-11-20] MEDS ORDERED: RAPID SEQUENCE INDUCTION BAG ONE (08:50)
[2022-11-20] MEDS ORDERED: PROPOFOL IV EMULSION 10 MG/ML 100 ML VIAL IV ONE (08:56)
[2022-11-20] MEDS: PANTOprazole 40 MG in SYRINGE 0 ML IV SCH ×2 (09:00→20:42)
[2022-11-20] MEDS ORDERED: LANTUS PER UNIT CHARGE SQ SCH (09:00)
--- NOTE | 2022-11-20 09:03 | Hospitalist Progress Note ---
Date of Service November 20, 2022 Assessment & Plan (1) Encephalopathy: Plan Pt is a 62yoF with PMHx significant for chronic diastolic heart failure (EF 55 to 60%, TTE 2022), CAD s/p CABG, PVD, valvular heart disease (moderate to severe MR), history mitral valve endocarditis/periaortic abscess, chronic LBBB, chronic respiratory failure on home O2, ISAURA on CPAP, hypertension, hyperlipidemia, DM 2, GERD, chronic anemia, mood disorder and Hx of MRSA bacteremia presenting with AMS. AMS Encephalopathy Per daughter this is new since discharge recently. Head CT with no acute changes, Brain MRI pending WBC significantly elevated but chest XRAY, CT abd/pelvis, UA from 11/16 all without signs of acute infection Repeat UA from 11/18 suggestive of infection, urine Cx pending CTA chest from prior admission notes tree in bud nodularity in the right middle lobe that may represent a mild infectious/inflammatory process. CT chest from 11/18 with pulmonary edema and small pleural effusions, dependent consolidations of the left upper and lower lobes may represent atelectasis versus pneumonia and left perinephric stranding. Lyme testing positive with IgM antibodies at this time, rest of panel pending - noted IgM was previously positive in July 2022. VBG from 11/16 unremarkable Blood Cultures x2 with NGTD MRSA nares positive CT chest from 11/18 suggestive of pneumonia and new UTI. Previously on Cefepime, Vancomycin and Flagyl (avoiding nephrotoxic Vanc/Zosyn combo), as well as doxycycline for the positive Lyme testing. ICU continuing Cefepime and Vancomycin. Continue to hold home psychotropic meds- per daughter she has not been taking meds recently Currently intubated in ICU Chronic hypoxic respiratory failure Pleural Effusions Pulmonary edema Hx of COPD ISAURA on CPAP Noted on CT chest from 11/18 Pt with previous Hx requiring thoracentesis and Bipap use Pulmonology consult placed- appreciate recs Currently in ICU GUY Cr elevated to 1.57 on admission Currently within normal limits Avoid nephrotoxic meds CAD status post CABG, PVD valvular heart disease (moderate to severe MR) history mitral valve endocarditis/periaortic abscess as per records chronic LBBB Stable hyperlipidemia Continue statin Rx DMII insulin requiring suboptimal control as of recent hemoglobin A1c of 9.4 last month basal/bolus while hospitalized, hold home meds Acute on chronic anemia hemoglobin drop from baseline Transfuse pRBCs to maintain hemoglobin of at least 8 given history CAD Hgb after transfusion from 7.5 to 9.1 on admission FOBT, iron/b12/folate and further lab studies, consider GI procedure once more stable- noted anemia normocytic Consider holding home plavix and aspirin. Mood disorder/paranoia On olanzapine Diet: Clear Liquids DVT prophylaxis: Hold with anemia requiring transfusion CODE STATUS: Full code Dispo: PT/OT ordered Admission and Anticipated Discharge Date Admission Date: November 16, 2022 Subjective Pt currently intubated. Review of Systems Review of Systems: Unobtainable due to endotracheal tube Physical Exam Physical Exam: General: intubated Skin: Bruise on abdomen Psych: could not be determined Neuro: sedated HEENT: NC/AT Chest: Nontender to palpation. CV: RRR Resp:intubated, no increased effort of breathing. Abdomen: Soft Extremities: L BKA, no edema in right lower extremity Results & Data Results & Data Vital Signs (Past 12 Hours) Vital Signs Temp Pulse Pulse Resp BP Pulse Ox O2 Del Method 11/20/22 08:21 37.5 C 11/20/22 07:24 86 20 100 11/20/22 07:24 85 20 97 BiPAP 11/20/22 06:30 157/77 H 11/20/22 06:30 74 28 H 100 11/20/22 06:00 74 28 H 100 11/20/22 06:00 149/74 H 11/20/22 05:30 76 28 H 100 11/20/22 05:30 158/83 H 11/20/22 05:00 78 29 H 100 11/20/22 05:40 75 158/83 H 11/20/22 04:30 79 28 H 100 11/20/22 04:30 151/75 H 11/20/22 04:00 79 30 H 100 11/20/22 04:00 150/72 H 11/20/22 03:30 150/75 H 11/20/22 03:30 78 28 H 99 11/20/22 03:00 78 27 H 99 11/20/22 03:00 146/81 H 11/20/22 02:30 148/72 H 11/20/22 02:30 81 28 H 99 11/20/22 02:00 82 27 H 99 11/20/22 02:00 146/77 H 11/20/22 01:30 147/69 H 11/20/22 01:30 83 28 H 100 11/20/22 01:00 84 27 H 100 11/20/22 01:00 139/85 11/20/22 00:30 84 28 H 100 11/20/22 00:30 161/87 H 11/20/22 04:00 38.1 C H 11/20/22 05:24 151/75 H 11/20/22 02:39 82 28 H 99 11/20/22 03:07 78 146/81 H 11/20/22 02:49 82 148/72 H 11/20/22 00:20 84 25 H 100 11/20/22 00:10 82 26 H 100 11/20/22 00:00 79 26 H 100 11/20/22 00:00 36.7 C 157/79 H 11/19/22 23:50 78 26 H 100 11/19/22 23:40 79 24 100 11/19/22 23:53 78 26 H 100 11/19/22 23:30 79 24 100 11/19/22 23:30 152/92 H 11/19/22 23:00 80 25 H 98 11/19/22 23:00 155/78 H 11/19/22 22:30 81 27 H 100 11/19/22 22:30 162/79 H 11/19/22 21:30 85 27 H 100 11/19/22 21:30 166/76 H 11/19/22 22:51 162/79 H 11/19/22 22:31 83 31 H 93 FiO2 11/20/22 08:21 11/20/22 07:24 30 11/20/22 07:24 30 11/20/22 06:30 11/20/22 06:30 11/20/22 06:00 11/20/22 06:00 11/20/22 05:30 11/20/22 05:30 11/20/22 05:00 11/20/22 05:40 11/20/22 04:30 11/20/22 04:30 11/20/22 04:00 11/20/22 04:00 11/20/22 03:30 11/20/22 03:30 11/20/22 03:00 11/20/22 03:00 11/20/22 02:30 11/20/22 02:30 11/20/22 02:00 11/20/22 02:00 11/20/22 01:30 11/20/22 01:30 11/20/22 01:00 11/20/22 01:00 11/20/22 00:30 11/20/22 00:30 11/20/22 04:00 11/20/22 05:24 11/20/22 02:39 40 11/20/22 03:07 11/20/22 02:49 11/20/22 00:20 11/20/22 00:10 11/20/22 00:00 11/20/22 00:00 11/19/22 23:50 11/19/22 23:40 11/19/22 23:53 40 11/19/22 23:30 11/19/22 23:30 11/19/22 23:00 11/19/22 23:00 11/19/22 22:30 11/19/22 22:30 11/19/22 21:30 11/19/22 21:30 11/19/22 22:51 11/19/22 22:31 40
[2022-11-20] MEDS: propofoL 1,000 MG/100 ML VIAL IV SCH ×2 (09:10→18:14)
--- NOTE | 2022-11-20 09:27 | Procedure Note ---
Procedure Note Date of Service November 20, 2022 Note INTUBATION PROCEDURE NOTE: Attending: Dr Rody Baxter MD Patient was evaluated and plan to intubate was made for altered mental status. Sedative agent used: 100 mg of lidocaine, 15 mg of etomidate Paralysis agent used: 70 mg of rocuronium Emergent consent was implied given patients rapidly declining clinical status and need for airway protection. The patient was prepared in the appropriate fashion. The patient was easily pre-oxygenated by using [id number] ventilation. With help of CMAC grade 2 vocal cords were visualized and 7.5 Indonesian ETT was introduced on first attempt to 23 cm at the lip. The stylette was removed and balloon was inflated with 10mL of air. Appropriate Colorimetric change was appreciated for at least 10 breaths. Bilateral chest rise and breath sounds were appreciated without air sounds in the epigastrium. Patient tolerated the procedure well and there were no immediate complications. Chest Xray to follow for confirming placement. Coding CPT Codes Resuscitation - Resuscitation: 72742 Endotracheal Intubation, emergency ([id number]) [facility] [place] Codes (Charges) Resuscitation Resuscitation: 02072 Endotracheal Intubation, emergency
[2022-11-20] MEDS ORDERED: fentaNYL citrate 2,500 MCG/250 ML BAG IV ONE (09:33)
--- NOTE | 2022-11-20 09:39 | XRay Report ---
SINGLE VIEW CHEST CLINICAL HISTORY: Respiratory failure. Intubation. FINDINGS: An AP, portable, upright chest radiograph is compared to performed earlier this day 11/21/19 and correlated with chest CT dated 11/18/2022. An endotracheal tube has been placed. The tip projec ts approximately 4 cm above the ava. An enteric tube has been placed. The tip projects below the d iaphragm over the stomach. The patient is status post midline sternotomy. The heart is enlarged notin g atherosclerotic calcification of the thoracic aorta. There is persistent pulmonary vascular congest ion. Airspace opacities likely represent mild pulmonary edema. There are trace pleural effusions with dependent atelectasis. No pneumothorax is seen. The skeletal structures are osteopenic. The bony tho rax is grossly intact. Cholecystectomy clips are noted in the right upper quadrant. IMPRESSION: 1. Endotracheal and enteric tubes have been placed as above. 2. Cardiomegaly with evidence of congestive failure. Mild bilateral airspace opacities likely represe nt pulmonary edema. Correlate clinically for evidence of a superimposed pneumonia. This is unchanged from today's earlier examination. 3. Trace pleural effusions. ACT 112: Negative or not required by law. Electronically signed by: Geoavni Dumont M.D. 11/20/2022 9:38 AM
[2022-11-20] MEDS: fentaNYL BOLUS from BAG IV PRN ×2 (10:00→20:45)
[2022-11-20] MEDS: VANCOMYCIN HCL 1,250 MG in DEXTROSE 5% 250 ML IV SCH (10:09)
[2022-11-20] MEDS ORDERED: STAT IV Infusion **Titration per Protocol STA (10:37)
[2022-11-20] MEDS ORDERED: fentaNYL citrate 2,500 MCG/250 ML BAG IV SCH (10:45)
[2022-11-20] MEDS: PROPOFOL BOLUS FROM BAG IV PRN ×2 (10:52→20:46)
[2022-11-20] MEDS ORDERED: ROCURONIUM BROMIDE 10 MG/ML 5 ML VIAL IV ONE (10:57)
[2022-11-20] MEDS ORDERED: ETOMIDATE 2 MG/ML 20 ML VIAL IV ONE (10:57)
[2022-11-20] MEDS ORDERED: LIDOCAINE 2% 20 MG/ML 5 ML SYR IV ONE (10:57)
--- NOTE | 2022-11-20 11:21 | Electrocardiogram Report ---
Test Reason : Blood Pressure : / mmHG Vent. Rate : 080 BPM Atrial Rate : 080 BPM P-R Int : 132 ms QRS Dur : 088 ms QT Int : 394 ms P-R-T Axes : 072 076 043 degrees QTc Int : 454 ms Normal sinus rhythm Normal ECG When compared with ECG of 19-NOV-2022 02:11, No significant change was found Confirmed by Macario Candelaria ([id number]) on 11/20/2022 11:21:00 AM Referred By: REFERRED SELF Confirmed By:Macario Candelaria
[2022-11-20] MEDS ORDERED: METOPROLOL TARTRATE 25 MG TAB OG SCH (11:30)
[2022-11-20 11:32] LABS: iSTAT Allen Test Pass; iSTAT Art Bld Gas pCO2 Correct 29 mmHg (35-46); iSTAT Art Bld Gas pH Corrected 7.337 (7.35-7.45); iSTAT Arterial Blood Gas HCO3 15 meg/L (19-24); iSTAT Arterial Blood Gas pCO2 28 mmHg (35-46); iSTAT Arterial Blood Gas pH 7.35 (7.35-7.45); iSTAT Arterial Blood Gas pO2 99 mmHg (80-95); iSTAT Arterial Blood Gas pO2 C 105; iSTAT Carbon Dioxide 16 mmol/L (24-31); iSTAT FiO2 30 %; iSTAT Hematocrit 23 % (37-47); iSTAT Hemoglobin 7.8 g/dl (12.0-16.0); iSTAT Site L Radial; iSTAT Sodium 152 mmol/L (135-144)
[2022-11-20] MEDS ORDERED: Nursing to Pharmacy Communication SCH (11:45)
[2022-11-20] MEDS ORDERED: PEPTAMEN INTENSE VHP 1.0 CAL 1,000 ML BAG OG SCH (11:45)
[2022-11-20] MEDS: TUBE FEEDING WATER FLUSH OG SCH ×4 (12:21→23:45)
[2022-11-20] MEDS ORDERED: GADOBUTROL 30ML VIAL IV ONE (13:13)
--- NOTE | 2022-11-20 13:25 | Pharmacy Report ---
Pharmacy Glycemic Short Note 2 - Date of Service November 20, 2022 - Glycemic Short BSG Results (Last 24 hours): 11/19/22 11/19/22 11/19/22 14:00 16:52 20:13 Glucose 204 H POC Glucose 272 H 304 H* 11/19/22 11/20/22 11/20/22 20:16 00:18 04:12 Glucose POC Glucose 300 H 164 H 173 H 11/20/22 11/20/22 11/20/22 04:59 08:13 11:34 Glucose 172 H POC Glucose 190 H 250 H OUTPATIENT ANTIDIABETIC REGIMEN: * Basaglar 35 units SC qAM * Novolog TID SSI HbA1c: 9.4% (10/31/22) ASSESSMENT: 11/20/22: * Patient intubated today. Precedex off, propofol and fentanyl started. * Peptamen intense VHP (78 g CHO/L) initiated at 10 mL/hr (goal rate of 45 mL/hr) * Gave large basal dose this morning - will utilize short-acting for rest of today and reassess basal need tomorrow * Remains on broad spectrum antibiotics (vanco/cefepime) 11/19/22: * JETT is a 62 year old female known to pharmacy glycemic consult service * Patient has complicated PMH w/ multiple comorbidities including CAD, hx endoca rditis, valvular heart disease, COPD, anemia, T2DM, etc. * Admitted on 11/16/22 w/ encephalopathy (likely multifactorial in nature) * BSGs have been labile since admission, pharmacy consulted for glycemic management on 11/19 * Currently receiving broad spectrum antibiotics (vancomycin/cefepime) * Precedex infusing PLAN FOR INPATIENT GLYCEMIC CONTROL: * Basal insulin * Lantus 35 units SQ daily * Bolus insulin * NovoLog per scale ACHS or Q6hrs while NPO * Goal Range: Low 110 mg/dL - High 140 mg/dL * Correction Factor: 20 mg/dL/unit * Nutritional / Prandial insulin per carb ratio of 1 unit per 8 grams CHO consumed
--- NOTE | 2022-11-20 13:43 | Magnetic Resonance Report ---
MRI OF THE BRAIN COMBO CLINICAL HISTORY: Change in mental status. COMPARISON STUDY: CT of the brain dated 11/19/2022. TECHNIQUE: MRI of the brain was performed utilizing various T1 and T2-weighted sequences in the axial , sagittal, and coronal planes. Contrast-enhanced sequences were acquired following the administratio n of 6.4 cc of Gadavist. FINDINGS: Brain parenchyma: There is mild age-related change. There is no hemorrhage or mass effect. There is n o restricted diffusion to suggest acute ischemia. No enhancing mass lesion is identified on the postc ontrast images. Yuen-white matter differentiation is preserved. No extra-axial fluid collection is se en. The cerebellar tonsils are normal in configuration. Ventricles, sulci, and cisterns: Normal in configuration. Pituitary and sella: Partially empty sella is incidentally noted. Intracranial vasculature: Normal flow voids are maintained at the skull base. Orbits: The bony orbits are grossly intact. Orbital contents are normal in appearance nothing bilater al ocular lens implant. Sinuses and mastoids: The sinuses and mastoids are clear. Secretions are noted in the pharynx. Calvarium: Unremarkable. Cervical cord: Partially visualized cervical spinal cord is normal in morphology and signal intensity . IMPRESSION: No acute intracranial abnormality. ACT 112: Negative or not required by law. Electronically signed by: Geovani Dumont M.D. 11/20/2022 1:41 PM
[2022-11-20 17:47] LABS: BUN Creatinine Ratio 42.7 (10-20); Calcium 8.9 mg/dl (8.6-10.3); Creatinine Clr Calc Pharmacy 39.2 ml/min; Est GFR (African American) 49.7 ml/min; Est GFR (Non-African American) 42.9 ml/min; Potassium 3.7 mmol/L (3.5-5.1)
[2022-11-20] MEDS: POTASSIUM CHLORIDE 20 MEQ/15 ML UDC NG SCH ×2 (18:25→20:40)
[2022-11-20] MEDS: LANTUS PER UNIT CHARGE SQ SCH (20:39)
[2022-11-20] MEDS: METOPROLOL TARTRATE 25 MG TAB OG SCH (20:40)
[2022-11-20] MEDS: ENOXAPARIN INJ 40 MG/0.4 ML SYR SQ SCH (20:41)
[2022-11-20] MEDS: DOCUSATE SODIUM SYRUP 100 MG/10 ML UDC NG SCH (20:42)
[2022-11-21] MEDS: INSULIN ASPART PER UNIT CHARGE SC SCH ×6 (01:34→20:37)
[2022-11-21] MEDS: LEVALBUTEROL 1.25 MG/3 ML NEB NEB SCH ×4 (01:34→19:35)
[2022-11-21] MEDS: propofoL 1,000 MG/100 ML VIAL IV SCH ×3 (01:34→11:21)
[2022-11-21] MEDS: IPRATROPIUM BROMIDE NEB SOLN 0.02% 2.5 ML VIAL INH SCH ×4 (01:34→19:35)
[2022-11-21] MEDS: PROPOFOL BOLUS FROM BAG IV PRN ×2 (02:33→05:12)
[2022-11-21] MEDS: fentaNYL BOLUS from BAG IV PRN ×2 (02:34→05:12)
[2022-11-21] MEDS: TUBE FEEDING WATER FLUSH OG SCH ×3 (03:11→12:11)
[2022-11-21 03:50] LABS: Hematocrit (blood only) 25.9 % (37.0-47.0); Mean Corpuscular Hemoglobin 29.2 pg (25.0-34.0); Mean Corpuscular Hgb Conc 30.9 g/dL (32.0-36.0); Mean Corpuscular Volume 94.5 fL (80.0-100.0); Nucleated RBC # (auto) 0.02 K/uL (0.00-0.12); Nucleated RBC % (auto) 0.2 %; Platelet Count 152 K/uL (130-400); RDW Coefficient of Variation 18.6 % (11.5-14.5); RDW Standard Deviation 63.8 fL (36.4-46.3); Red Blood Count 2.74 M/uL (4.20-5.40); White Blood Count 10.45 K/ul (4.8-10.8)
[2022-11-21 04:10] LABS: BUN Creatinine Ratio 39.7 (10-20); Calcium 9.3 mg/dl (8.6-10.3); Creatinine Clr Calc Pharmacy 36.4 ml/min; Est GFR (African American) 45.5 ml/min; Est GFR (Non-African American) 39.3 ml/min; Magnesium 2.5 mg/dl (1.7-2.4); Phosphorus 2.7 mg/dl (2.5-4.9); Potassium 4.3 mmol/L (3.5-5.1)
[2022-11-21 04:11] LABS: Basophils # (auto) 0.03 K/uL (0.00-0.20); Basophils % (auto) 0.3 %; Eosinophils # (auto) 0.17 K/uL (0.00-0.50); Eosinophils % (auto) 1.6 %; Immature Granulocytes # (auto) 0.13 K/uL (0.01-0.20); Immature Granulocytes % (auto) 1.2 %; Lymphocytes # (auto) 1.93 K/uL (1.20-3.40); Lymphocytes % (auto) 18.5 %; Monocytes # (auto) 3.27 K/uL (0.11-0.59); Monocytes % (auto) 31.3 %; Neutrophils # (auto) 4.92 K/uL (1.40-6.50); Neutrophils % (auto) 47.1 %
[2022-11-21] MEDS: ICU ELECTROLYTE REPLACEMENT PROTOCOL SCH ×2 (05:56→18:27)
[2022-11-21] MEDS: CEFEPIME 2,000 MG in SYRINGE 0 ML IV SCH ×2 (05:57→17:40)
--- NOTE | 2022-11-21 07:57 | XRay Report ---
XR chest 1V portable CLINICAL HISTORY: Respiratory failure. COMPARISON STUDY: Chest CT November 18, 2022. Chest radiograph November 20, 2022. FINDINGS: Tip of endotracheal tube is 2.5 cm above the ava. Tip of nasogastric tube is below the l ower aspect of this image but at least within the stomach. There are median sternotomy wires and medi astinal surgical clips. Cardiomegaly is unchanged. Interstitial thickening and airspace opacities hav e improved. Small left pleural effusion is noted. There is no pneumothorax. IMPRESSION: 1. Interval improvement in pulmonary edema. 2. Small left pleural effusion. No pneumothorax. 3. Satisfactory positioning of the endotracheal and nasogastric tubes. ACT 112: Negative or not required by law. Electronically signed by: Grover Delacruz M.D. 11/21/2022 7:56 AM
--- NOTE | 2022-11-21 07:59 | Hospitalist Progress Note ---
Date of Service November 21, 2022 Assessment & Plan (1) Encephalopathy: Plan Pt is a 62yoF with PMHx significant for chronic diastolic heart failure (EF 55 to 60%, TTE 2022), CAD s/p CABG, PVD, valvular heart disease (moderate to severe MR), history mitral valve endocarditis/periaortic abscess, chronic LBBB, chronic respiratory failure on home O2, ISAURA on CPAP, hypertension, hyperlipidemia, DM 2, GERD, chronic anemia, mood disorder and Hx of MRSA bacteremia presenting with AMS. AMS Encephalopathy Per daughter this is new since discharge recently. Head CT with no acute changes, Brain MRI 11/20- no acute abnormality. WBC significantly elevated but chest XRAY, CT abd/pelvis, UA from 11/16 all without signs of acute infection Repeat UA from 11/18 suggestive of infection, urine Cx with yeast growth. CTA chest from prior admission notes tree in bud nodularity in the right middle lobe that may represent a mild infectious/inflammatory process. CT chest from 11/18 with pulmonary edema and small pleural effusions, dependent consolidations of the left upper and lower lobes may represent atelectasis versus pneumonia and left perinephric stranding. Lyme testing positive with IgM antibodies at this time, rest of panel pending - noted IgM was previously positive in July 2022. VBG from 11/16 unremarkable Blood Cultures x2 with NGTD MRSA nares positive CT chest from 11/18 suggestive of pneumonia and new UTI. Previously on Cefepime, Vancomycin and Flagyl (avoiding nephrotoxic Vanc/Zosyn combo), as well as doxycycline for the positive Lyme testing. ICU continuing Cefepime and Vancomycin. Home psychotropic meds have since been resumed. Currently intubated in ICU Chronic hypoxic respiratory failure Pleural Effusions Pulmonary edema Hx of COPD ISAURA on CPAP Noted on CT chest from 11/18 Pt with previous Hx requiring thoracentesis and Bipap use Pulmonology previously consulted Currently in ICU GUY Cr elevated to 1.57 on admission Currently within normal limits Avoid nephrotoxic meds CAD status post CABG, PVD valvular heart disease (moderate to severe MR) history mitral valve endocarditis/periaortic abscess as per records chronic LBBB Stable hyperlipidemia Continue statin Rx DMII insulin requiring suboptimal control as of recent hemoglobin A1c of 9.4 last month basal/bolus while hospitalized, hold home meds Acute on chronic anemia hemoglobin drop from baseline Transfuse pRBCs to maintain hemoglobin of at least 8 given history CAD Hgb after transfusion from 7.5 to 9.1 on admission FOBT, iron/b12/folate and further lab studies, consider GI procedure once more stable- noted anemia normocytic Consider holding home plavix and aspirin. Mood disorder/paranoia On olanzapine Diet: NPO in ICU DVT prophylaxis: Hold with anemia requiring transfusion CODE STATUS: Full code Dispo: Currently critical in the ICU Admission and Anticipated Discharge Date Admission Date: November 16, 2022 Subjective Pt seen, intubated but restless. Review of Systems Review of Systems: Unobtainable due to endotracheal tube Physical Exam Physical Exam: General: intubated Psych: could not be determined Neuro: agitated HEENT: NC/AT Chest: Nontender to palpation. CV: RRR Resp:intubated, no increased effort of breathing. Abdomen: Soft Extremities: L BKA, no edema in right lower extremity Results & Data Results & Data Vital Signs (Past 12 Hours) Vital Signs Temp Pulse Pulse Resp BP Pulse Ox O2 Del Method 11/21/22 07:30 38.2 C H 85 20 112/60 97 Mechanical Vent 11/21/22 07:00 38.1 C H 90 20 143/66 H 11/21/22 06:00 38.0 C H 89 20 96 11/21/22 06:00 135/70 11/21/22 05:50 38.0 C H 91 H 20 97 11/21/22 05:40 38.0 C H 90 20 96 11/21/22 05:30 38.0 C H 88 20 94 11/21/22 05:30 131/69 11/21/22 05:20 38.0 C H 87 20 96 11/21/22 05:10 38.0 C H 88 20 95 11/21/22 05:00 38.1 C H 89 20 11/21/22 05:00 97/57 L 11/21/22 04:50 38.0 C H 88 20 88 L 11/21/22 04:40 38.1 C H 89 20 97 11/21/22 04:30 38.1 C H 85 20 11/21/22 04:30 128/64 11/21/22 04:20 38.1 C H 86 20 97 11/21/22 04:10 38.0 C H 88 20 97 11/21/22 04:00 38.0 C H 86 20 94 11/21/22 04:00 127/59 L 11/21/22 03:50 38.0 C H 86 20 97 11/21/22 03:40 38.0 C H 86 20 97 11/21/22 03:30 38.0 C H 84 20 11/21/22 03:30 117/63 11/21/22 03:20 38.0 C H 85 20 96 11/21/22 03:10 38.0 C H 85 20 97 11/21/22 03:00 38.0 C H 86 20 11/21/22 03:00 127/64 11/21/22 02:50 38.0 C H 86 20 96 11/21/22 02:40 38.1 C H 85 20 96 11/21/22 02:30 38.0 C H 84 18 11/21/22 02:30 124/60 11/21/22 02:20 38.0 C H 83 20 97 11/21/22 02:10 38.0 C H 84 20 97 11/21/22 02:00 38.1 C H 82 20 11/21/22 02:00 133/61 11/21/22 01:50 38.1 C H 81 20 97 11/21/22 01:40 38.1 C H 79 20 97 11/21/22 02:23 83 20 98 11/21/22 00:00 79 11/21/22 01:30 38.1 C H 77 20 11/21/22 01:30 116/59 L 11/21/22 01:20 38.2 C H 78 20 97 11/21/22 01:10 38.2 C H 79 20 97 11/21/22 01:00 38.2 C H 80 20 11/21/22 01:00 134/61 11/21/22 00:50 38.2 C H 80 20 96 11/21/22 00:40 38.2 C H 79 21 96 11/21/22 00:30 38.2 C H 80 20 96 11/21/22 00:30 139/62 11/21/22 00:20 38.2 C H 79 20 96 11/21/22 00:10 38.2 C H 80 21 96 11/21/22 00:00 38.2 C H 78 20 11/21/22 00:00 134/65 11/20/22 23:50 38.2 C H 78 20 96 11/20/22 23:40 38.2 C H 80 18 96 11/20/22 23:30 38.2 C H 81 20 11/20/22 23:30 136/61 11/20/22 23:20 38.2 C H 80 20 97 11/20/22 23:10 38.2 C H 79 18 97 11/20/22 23:00 38.2 C H 80 20 96 11/20/22 23:00 140/66 11/20/22 22:50 38.2 C H 79 20 97 11/20/22 22:40 38.2 C H 78 18 97 11/20/22 22:30 38.2 C H 77 20 96 11/20/22 22:30 125/57 L 11/20/22 22:20 38.2 C H 82 20 97 11/20/22 22:10 38.2 C H 79 17 97 11/20/22 22:00 38.2 C H 80 20 96 11/20/22 22:00 135/62 11/20/22 21:50 38.2 C H 85 20 96 11/20/22 21:40 38.2 C H 80 17 96 11/20/22 21:30 38.2 C H 80 20 96 11/20/22 21:30 143/59 H 11/21/22 01:35 77 20 96 Mechanical Vent 11/20/22 23:14 80 21 97 11/20/22 21:20 38.1 C H 80 20 97 11/20/22 21:10 38.1 C H 80 18 97 11/20/22 21:00 38.1 C H 78 20 96 11/20/22 21:00 121/53 L 11/20/22 20:50 38.1 C H 78 20 97 11/20/22 20:40 38.1 C H 76 18 96 11/20/22 20:30 38.1 C H 74 20 95 11/20/22 20:30 90/48 L 11/20/22 20:20 75 20 95 11/20/22 20:10 75 17 94 11/20/22 20:00 71 20 94 11/20/22 20:00 103/49 L 11/20/22 20:00 79 11/20/22 20:00 Mechanical Vent FiO2 11/21/22 07:30 30 11/21/22 07:00 11/21/22 06:00 11/21/22 06:00 11/21/22 05:50 11/21/22 05:40 11/21/22 05:30 11/21/22 05:30 11/21/22 05:20 11/21/22 05:10 11/21/22 05:00 11/21/22 05:00 11/21/22 04:50 11/21/22 04:40 11/21/22 04:30 11/21/22 04:30 11/21/22 04:20 11/21/22 04:10 11/21/22 04:00 11/21/22 04:00 11/21/22 03:50 11/21/22 03:40 11/21/22 03:30 11/21/22 03:30 11/21/22 03:20 11/21/22 03:10 11/21/22 03:00 11/21/22 03:00 11/21/22 02:50 11/21/22 02:40 11/21/22 02:30 11/21/22 02:30 11/21/22 02:20 11/21/22 02:10 11/21/22 02:00 11/21/22 02:00 11/21/22 01:50 11/21/22 01:40 11/21/22 02:23 30 11/21/22 00:00 11/21/22 01:30 11/21/22 01:30 11/21/22 01:20 11/21/22 01:10 11/21/22 01:00 11/21/22 01:00 11/21/22 00:50 11/21/22 00:40 11/21/22 00:30 11/21/22 00:30 11/21/22 00:20 11/21/22 00:10 11/21/22 00:00 11/21/22 00:00 11/20/22 23:50 11/20/22 23:40 11/20/22 23:30 11/20/22 23:30 11/20/22 23:20 11/20/22 23:10 11/20/22 23:00 11/20/22 23:00 11/20/22 22:50 11/20/22 22:40 11/20/22 22:30 11/20/22 22:30 11/20/22 22:20 11/20/22 22:10 11/20/22 22:00 11/20/22 22:00 11/20/22 21:50 11/20/22 21:40 11/20/22 21:30 11/20/22 21:30 11/21/22 01:35 30 11/20/22 23:14 30 11/20/22 21:20 11/20/22 21:10 11/20/22 21:00 11/20/22 21:00 11/20/22 20:50 11/20/22 20:40 11/20/22 20:30 11/20/22 20:30 11/20/22 20:20 11/20/22 20:10 11/20/22 20:00 11/20/22 20:00 11/20/22 20:00 11/20/22 20:00 30
[2022-11-21] MEDS: SENNOSIDES 8.8 MG/5 ML UDC PO SCH (08:43)
[2022-11-21] MEDS: MULTI VIT W/MINERALS LIQUID 15 ML UDP NG SCH (08:43)
[2022-11-21] MEDS: METOPROLOL TARTRATE 25 MG TAB OG SCH ×2 (08:44→20:32)
[2022-11-21] MEDS: DOCUSATE SODIUM SYRUP 100 MG/10 ML UDC NG SCH ×2 (08:44→20:37)
[2022-11-21] MEDS: ASPIRIN 81 MG CHEW PO SCH (08:44)
[2022-11-21] MEDS: PANTOprazole 40 MG in SYRINGE 0 ML IV SCH ×2 (08:53→20:33)
[2022-11-21] MEDS: ACETAMINOPHEN 1,000 MG/100 ML VIAL IV PRN (08:53)
[2022-11-21 08:58] LABS: iSTAT Allen Test Pass; iSTAT Art Bld Gas pCO2 Correct 29 mmHg (35-46); iSTAT Art Bld Gas pH Corrected 7.325 (7.35-7.45); iSTAT Arterial Blood Gas HCO3 15 meg/L (19-24); iSTAT Arterial Blood Gas pCO2 27 mmHg (35-46); iSTAT Arterial Blood Gas pH 7.34 (7.35-7.45); iSTAT Arterial Blood Gas pO2 71 mmHg (80-95); iSTAT Arterial Blood Gas pO2 C 77; iSTAT Carbon Dioxide 15 mmol/L (24-31); iSTAT FiO2 30 %; iSTAT Hematocrit 23 % (37-47); iSTAT Hemoglobin 7.8 g/dl (12.0-16.0); iSTAT Potassium 4.5 mmol/L (3.3-5.0); iSTAT Site L Radial; iSTAT Sodium 150 mmol/L (135-144)
--- NOTE | 2022-11-21 09:17 | Critical Care Progress Note ---
Date of Service November 21, 2022 Assessment & Plan (1) Acute respiratory failure with hypoxia: (2) COPD (chronic obstructive pulmonary disease): (3) Pleural effusion: (4) Encephalopathy: (5) Multifocal pneumonia: (6) Acute on chronic combined systolic and diastolic CHF (congestive heart failure): (7) PAD (peripheral artery disease): (8) UTI (urinary tract infection): (9) Diabetes mellitus, type 2: (10) HTN (hypertension): (11) Coronary artery disease: Plan Reason Critically Ill: 62-year-old female past medical history of moderate to severe MR, coronary artery disease status post CABG, left bundle branch block, dyslipidemia, tobacco use presented to the hospital with altered mental status and pulmonary edema along with left-sided pneumonia. In the ICU for hypoxia and mental changes CT chest 11/18/2022ersonally reviewed: Interlobular thickening appreciated bilaterally especially on the left side Bilateral pleural effusion left greater than the right Questionable consolidative process on the left side Cardiomegaly Minimal significant mediastinal lymphadenopathy Neuro - Encephalopathy Multifactorial -Underlying sepsis from left-sided pneumonia playing a role along with underlying mood disorder -MRI reviewed. -Prior records report psychotic episode/mood disorder - Restart home zyprexa 5mg nightly, topamax 50mg bid; cymbalata 90mg daily U tox negative, TSH within normal limit Cardiac - --Acute on chronic diastolic heart failure/mitral regurgitation -Continue diuresis to maintain negative fluid balance - reviewed sept echo 2D echo 10/31/2022: EF 55-60%, moderate to severe MR, mild concentric LVH no pulmonary hypertension CADhistory of CABG x4 -No ST elevations on EKG, troponins unremarkable -On isosorbide mononitrate, MTP, Plavix, ASA, statin -Continuous monitor on telemetry Respiratory - --Acute on chronic hypoxic respiratory failure Multifactorial -possible hxc CHF with bilateral pleural effusion, effusions no longer present Left-sided pneumonia Respiratory bio fire negative for everything on 11/16/2022 Procalcitonin 0.38,nasal MRSA positive BNP 467 Thoracentesis 11/03/2022 left-sided, 1300 mL serosanguineous fluid removed,31% lymphocytes,exudative as per LDH, lights criteria Pleural fluid: LDH 242, protein less than 3, glucose 127, pH 7.46 Serum: LDH 339, protein 3.6 Continue with diuretics to keep the patient negative balance BiPAP nightly and as needed shortness of breath will be beneficial --Tobacco abuse Possibility of patient having COPD is there - Per daughter's report patient had previously been ordered 2 L of oxygen and CPAP for obstructive sleep apnea -There is an extensive history of ongoing tobacco use/dependency when the patient was found she was not on oxygen GI - N.p.o. Constipation: Positive bowel sounds continue with current bowel regimen RENAL/LYTES - -- GUY --> slight worsening No additional diuresis at the present. Receiving free water flushes to correct hypernatremia - Foleystrict I's and O's ENDO - DM type IIcontinue with basal bolus/sliding scale insulin. ICU hyperglycemic protocol TSH within normal limits HEME - -- Drop in hemoglobin No signs of melena BUN elevated, questionable upper GI bleed Continue with pantoprazole -Sent anemia labs, there is a longstanding history of anemia this also includes a haptoglobin which had been obtained several months ago which was negative, reticulocyte count and peripheral smear Patient has been transfused 2 times so far, once in the ICU --New onset thrombocytopenia Continue to monitor ID - -- Pneumonialeft-sided consolidation on CT chest along with leukocytosis. Pro-Jesus within normal limits and currently afebrile -Lyme panel negative, bio fire negative -Patient did have history of UTI with Klebsiella, completed antibiotic course, urinalysis 11/18/2022 negative for nitrites and bacteria -Nasal MRSA positive -Sputum culture pending -Continue broad-spectrum antibiotics with Day 6 cefepime of 7 day course and Day 5 of 7 vancomycin: Sputum culture pending which was obtained 11/21: No new oxygen requirement doubtful this represents ventilator associated event - 11/17, 11/18 received doxycycline - treat with 14 day doxycycline for atypical coverage as well as possible Lyme coverage -While neuro Lyme would be in the differential and require a extended antibiotic course I feel the psychotic episode is attributable to prior episodes and critical illness. Additional Lyme titers and tickborne work-up still pending -08/03- course of doxycycline for positive lyme titer --Prophylaxis VTE: IPC GI: Pantoprazole Lines: Peripheral Diet: Tube feeds currently running. Clinical update 1700 patient has been successfully extubated. Remains e ncephalopathic. Allow additional time for sedatives to be cleared from the patient. If patient remains encephalopathic would consider EEG. I have personally spent 50 minutes of critical care time in the direct management of this patient. This is a life/limb threatening event. This includes time spent evaluating patient, direct bedside care, chart review, placing orders, interpretation of diagnostic studies, discussion with consultants, patient, and family members, as well as other required patient management activities. This time is exclusive of all separately billable procedures, and teaching time and separate from and in addition to any other critical care service time. Admission and Anticipated Discharge Date Admission Date: November 16, 2022 Subjective No significant overnight events. Patient not following commands. Arouses to verbal stimuli Review of Systems Review of Systems: Unobtainable secondary to endotracheal tube Physical Exam Physical Exam: General: Sedated. nontoxic. Skin: Warm, dry, Head: Atraumatic Ears, nose, mouth and throat: airway obscured by endotracheal tube Cardiovascular: Normal peripheral perfusion Respiratory: Ventilator settings reviewed Gastrointestinal: Non distended Results & Data Results & Data Vital Signs (Past 12 Hours) Vital Signs Temp Pulse Pulse Resp BP Pulse Ox O2 Del Method 11/21/22 07:30 38.2 C H 85 20 112/60 97 Mechanical Vent 11/21/22 07:00 38.1 C H 90 20 143/66 H 11/21/22 06:00 38.0 C H 89 20 96 11/21/22 06:00 135/70 11/21/22 05:50 38.0 C H 91 H 20 97 11/21/22 05:40 38.0 C H 90 20 96 11/21/22 05:30 38.0 C H 88 20 94 11/21/22 05:30 131/69 11/21/22 05:20 38.0 C H 87 20 96 11/21/22 05:10 38.0 C H 88 20 95 11/21/22 05:00 38.1 C H 89 20 11/21/22 05:00 97/57 L 11/21/22 04:50 38.0 C H 88 20 88 L 11/21/22 04:40 38.1 C H 89 20 97 11/21/22 04:30 38.1 C H 85 20 11/21/22 04:30 128/64 11/21/22 04:20 38.1 C H 86 20 97 11/21/22 04:10 38.0 C H 88 20 97 11/21/22 04:00 38.0 C H 86 20 94 11/21/22 04:00 127/59 L 11/21/22 03:50 38.0 C H 86 20 97 11/21/22 03:40 38.0 C H 86 20 97 11/21/22 03:30 38.0 C H 84 20 11/21/22 03:30 117/63 11/21/22 03:20 38.0 C H 85 20 96 11/21/22 03:10 38.0 C H 85 20 97 11/21/22 03:00 38.0 C H 86 20 11/21/22 03:00 127/64 11/21/22 02:50 38.0 C H 86 20 96 11/21/22 02:40 38.1 C H 85 20 96 11/21/22 02:30 38.0 C H 84 18 11/21/22 02:30 124/60 11/21/22 02:20 38.0 C H 83 20 97 11/21/22 02:10 38.0 C H 84 20 97 11/21/22 02:00 38.1 C H 82 20 11/21/22 02:00 133/61 11/21/22 01:50 38.1 C H 81 20 97 11/21/22 01:40 38.1 C H 79 20 97 11/21/22 02:23 83 20 98 11/21/22 00:00 79 11/21/22 01:30 38.1 C H 77 20 11/21/22 01:30 116/59 L 11/21/22 01:20 38.2 C H 78 20 97 11/21/22 01:10 38.2 C H 79 20 97 11/21/22 01:00 38.2 C H 80 20 11/21/22 01:00 134/61 11/21/22 00:50 38.2 C H 80 20 96 11/21/22 00:40 38.2 C H 79 21 96 11/21/22 00:30 38.2 C H 80 20 96 11/21/22 00:30 139/62 11/21/22 00:20 38.2 C H 79 20 96 11/21/22 00:10 38.2 C H 80 21 96 11/21/22 00:00 38.2 C H 78 20 11/21/22 00:00 134/65 11/20/22 23:50 38.2 C H 78 20 96 11/20/22 23:40 38.2 C H 80 18 96 11/20/22 23:30 38.2 C H 81 20 11/20/22 23:30 136/61 11/20/22 23:20 38.2 C H 80 20 97 11/20/22 23:10 38.2 C H 79 18 97 11/20/22 23:00 38.2 C H 80 20 96 11/20/22 23:00 140/66 11/20/22 22:50 38.2 C H 79 20 97 11/20/22 22:40 38.2 C H 78 18 97 11/20/22 22:30 38.2 C H 77 20 96 11/20/22 22:30 125/57 L 11/20/22 22:20 38.2 C H 82 20 97 11/20/22 22:10 38.2 C H 79 17 97 11/20/22 22:00 38.2 C H 80 20 96 11/20/22 22:00 135/62 11/20/22 21:50 38.2 C H 85 20 96 11/20/22 21:40 38.2 C H 80 17 96 11/20/22 21:30 38.2 C H 80 20 96 11/20/22 21:30 143/59 H 11/21/22 01:35 77 20 96 Mechanical Vent 11/20/22 23:14 80 21 97 11/20/22 21:20 38.1 C H 80 20 97 FiO2 11/21/22 07:30 30 11/21/22 07:00 11/21/22 06:00 11/21/22 06:00 11/21/22 05:50 11/21/22 05:40 11/21/22 05:30 11/21/22 05:30 11/21/22 05:20 11/21/22 05:10 11/21/22 05:00 11/21/22 05:00 11/21/22 04:50 11/21/22 04:40 11/21/22 04:30 11/21/22 04:30 11/21/22 04:20 11/21/22 04:10 11/21/22 04:00 11/21/22 04:00 11/21/22 03:50 11/21/22 03:40 11/21/22 03:30 11/21/22 03:30 11/21/22 03:20 11/21/22 03:10 11/21/22 03:00 11/21/22 03:00 11/21/22 02:50 11/21/22 02:40 11/21/22 02:30 11/21/22 02:30 11/21/22 02:20 11/21/22 02:10 11/21/22 02:00 11/21/22 02:00 11/21/22 01:50 11/21/22 01:40 11/21/22 02:23 30 11/21/22 00:00 11/21/22 01:30 11/21/22 01:30 11/21/22 01:20 11/21/22 01:10 11/21/22 01:00 11/21/22 01:00 11/21/22 00:50 11/21/22 00:40 11/21/22 00:30 11/21/22 00:30 11/21/22 00:20 11/21/22 00:10 11/21/22 00:00 11/21/22 00:00 11/20/22 23:50 11/20/22 23:40 11/20/22 23:30 11/20/22 23:30 11/20/22 23:20 11/20/22 23:10 11/20/22 23:00 11/20/22 23:00 11/20/22 22:50 11/20/22 22:40 11/20/22 22:30 11/20/22 22:30 11/20/22 22:20 11/20/22 22:10 11/20/22 22:00 11/20/22 22:00 11/20/22 21:50 11/20/22 21:40 11/20/22 21:30 11/20/22 21:30 11/21/22 01:35 30 11/20/22 23:14 30 11/20/22 21:20 Critical Care Results & Data Vital Signs (Past 12 Hours) Vital Signs Temp Pulse Pulse Resp BP Pulse Ox O2 Del Method 11/21/22 07:30 38.2 C H 85 20 112/60 97 Mechanical Vent 11/21/22 07:00 38.1 C H 90 20 143/66 H 11/21/22 06:00 38.0 C H 89 20 96 11/21/22 06:00 135/70 11/21/22 05:50 38.0 C H 91 H 20 97 11/21/22 05:40 38.0 C H 90 20 96 11/21/22 05:30 38.0 C H 88 20 94 11/21/22 05:30 131/69 11/21/22 05:20 38.0 C H 87 20 96 11/21/22 05:10 38.0 C H 88 20 95 11/21/22 05:00 38.1 C H 89 20 11/21/22 05:00 97/57 L 11/21/22 04:50 38.0 C H 88 20 88 L 11/21/22 04:40 38.1 C H 89 20 97 11/21/22 04:30 38.1 C H 85 20 11/21/22 04:30 128/64 11/21/22 04:20 38.1 C H 86 20 97 11/21/22 04:10 38.0 C H 88 20 97 11/21/22 04:00 38.0 C H 86 20 94 11/21/22 04:00 127/59 L 11/21/22 03:50 38.0 C H 86 20 97 11/21/22 03:40 38.0 C H 86 20 97 11/21/22 03:30 38.0 C H 84 20 11/21/22 03:30 117/63 11/21/22 03:20 38.0 C H 85 20 96 11/21/22 03:10 38.0 C H 85 20 97 11/21/22 03:00 38.0 C H 86 20 11/21/22 03:00 127/64 11/21/22 02:50 38.0 C H 86 20 96 11/21/22 02:40 38.1 C H 85 20 96 11/21/22 02:30 38.0 C H 84 18 11/21/22 02:30 124/60 11/21/22 02:20 38.0 C H 83 20 97 11/21/22 02:10 38.0 C H 84 20 97 11/21/22 02:00 38.1 C H 82 20 11/21/22 02:00 133/61 11/21/22 01:50 38.1 C H 81 20 97 11/21/22 01:40 38.1 C H 79 20 97 11/21/22 02:23 83 20 98 11/21/22 00:00 79 11/21/22 01:30 38.1 C H 77 20 11/21/22 01:30 116/59 L 11/21/22 01:20 38.2 C H 78 20 97 11/21/22 01:10 38.2 C H 79 20 97 11/21/22 01:00 38.2 C H 80 20 11/21/22 01:00 134/61 11/21/22 00:50 38.2 C H 80 20 96 11/21/22 00:40 38.2 C H 79 21 96 11/21/22 00:30 38.2 C H 80 20 96 11/21/22 00:30 139/62 11/21/22 00:20 38.2 C H 79 20 96 11/21/22 00:10 38.2 C H 80 21 96 11/21/22 00:00 38.2 C H 78 20 11/21/22 00:00 134/65 11/20/22 23:50 38.2 C H 78 20 96 11/20/22 23:40 38.2 C H 80 18 96 11/20/22 23:30 38.2 C H 81 20 11/20/22 23:30 136/61 11/20/22 23:20 38.2 C H 80 20 97 11/20/22 23:10 38.2 C H 79 18 97 11/20/22 23:00 38.2 C H 80 20 96 11/20/22 23:00 140/66 11/20/22 22:50 38.2 C H 79 20 97 11/20/22 22:40 38.2 C H 78 18 97 11/20/22 22:30 38.2 C H 77 20 96 11/20/22 22:30 125/57 L 11/20/22 22:20 38.2 C H 82 20 97 11/20/22 22:10 38.2 C H 79 17 97 11/20/22 22:00 38.2 C H 80 20 96 11/20/22 22:00 135/62 11/20/22 21:50 38.2 C H 85 20 96 11/20/22 21:40 38.2 C H 80 17 96 11/20/22 21:30 38.2 C H 80 20 96 11/20/22 21:30 143/59 H 11/21/22 01:35 77 20 96 Mechanical Vent 11/20/22 23:14 80 21 97 11/20/22 21:20 38.1 C H 80 20 97 FiO2 11/21/22 07:30 30 11/21/22 07:00 11/21/22 06:00 11/21/22 06:00 11/21/22 05:50 11/21/22 05:40 11/21/22 05:30 11/21/22 05:30 11/21/22 05:20 11/21/22 05:10 11/21/22 05:00 11/21/22 05:00 11/21/22 04:50 11/21/22 04:40 11/21/22 04:30 11/21/22 04:30 11/21/22 04:20 11/21/22 04:10 11/21/22 04:00 11/21/22 04:00 11/21/22 03:50 11/21/22 03:40 11/21/22 03:30 11/21/22 03:30 11/21/22 03:20 11/21/22 03:10 11/21/22 03:00 11/21/22 03:00 11/21/22 02:50 11/21/22 02:40 11/21/22 02:30 11/21/22 02:30 11/21/22 02:20 11/21/22 02:10 11/21/22 02:00 11/21/22 02:00 11/21/22 01:50 11/21/22 01:40 11/21/22 02:23 30 11/21/22 00:00 11/21/22 01:30 11/21/22 01:30 11/21/22 01:20 11/21/22 01:10 11/21/22 01:00 11/21/22 01:00 11/21/22 00:50 11/21/22 00:40 11/21/22 00:30 11/21/22 00:30 11/21/22 00:20 11/21/22 00:10 11/21/22 00:00 11/21/22 00:00 11/20/22 23:50 11/20/22 23:40 11/20/22 23:30 11/20/22 23:30 11/20/22 23:20 11/20/22 23:10 11/20/22 23:00 11/20/22 23:00 11/20/22 22:50 11/20/22 22:40 11/20/22 22:30 11/20/22 22:30 11/20/22 22:20 11/20/22 22:10 11/20/22 22:00 11/20/22 22:00 11/20/22 21:50 11/20/22 21:40 11/20/22 21:30 11/20/22 21:30 11/21/22 01:35 30 11/20/22 23:14 30 11/20/22 21:20 Lab & Micro Results (Past 24 Hours) RBC 2.74 M/uL (4.20-5.40) L 11/21/22 WBC 10.45 K/ul (4.8-10.8) 11/21/22 Hgb 8.0 g/dl (12.0-16.0) L 11/21/22 Hct 25.9 % (37.0-47.0) L 11/21/22 MCV 94.5 fL (80.0-100.0) 11/21/22 MCH 29.2 pg (25.0-34.0) 11/21/22 MCHC 30.9 g/dL (32.0-36.0) L 11/21/22 RDW Standard Deviation 63.8 fL (36.4-46.3) H 11/21/22 RDW Coefficient of Variation 18.6 % (11.5-14.5) H 11/21/22 Plt Count 152 K/uL (130-400) 11/21/22 MPV 13.0 fL (9.4-12.4) H 11/21/22 Nucleated Red Blood Cells % (auto) 0.2 % 11/21 Nucleated RBC Absolute Count (auto) 0.02 K/uL (0.00-0.12) 1 Neutrophils (%) (Auto) 47.1 % 11/21/22 Lymphocytes (%) (Auto) 18.5 % 11/21/22 Monocytes # (Auto) 3.27 K/uL (0.11-0.59) H 11/21/22 Eosinophils # (Auto) 0.17 K/uL (0.00-0.50) 11/21/22 Immature Granulocyte % (Auto) 1.2 % 11/21/22 Neutrophils # (Auto) 4.92 K/uL (1.40-6.50) 11/21/22 Lymphocytes # (Auto) 1.93 K/uL (1.20-3.40) 11/21/22 Monocytes # (Auto) 3.27 K/uL (0.11-0.59) H 11/21/22 Eosinophils # (Auto) 0.17 K/uL (0.00-0.50) 11/21/22 Basophils # (Auto) 0.03 K/uL (0.00-0.20) 11/21/22 Immature Granulocyte # (Auto) 0.13 K/uL (0.01-0.20) 3 Na 147 mmol/L (136-145) H 11/21/22 K 4.3 mmol/L (3.5-5.1) 11/21/22 Cl 123 mmol/L (98-107) H 11/21/22 CO2 16 mmol/L (21-32) L 11/21/22 Anion Gap 8 (3-11) 11/21/22 BUN 56 mg/dl (6-23) H 11/21/22 Creatinine 1.41 mg/dl (0.6-1.2) H 11/21/22 Estimated GFR ( Amer) 45.5 ml/min 11/21/22 Estimated GFR (Non-Af Amer) 39.3 ml/min 11/21/22 BUN/Creatinine Ratio 39.7 (10-20) H 11/21/22 Glu 104 mg/dl (70-99(Fasting)) H 11/21/22 Ca 9.3 mg/dl (8.6-10.3) 10/09/23 Phosphorus Level 2.7 mg/dl (2.5-4.9) 11/21/22 Mg 2.5 mg/dl (1.7-2.4) H 11/21/22 03:18 Calcium Level 9.3 mg/dl (8.6-10.3) 11/21/22 03:18 Christopher Test Pass 11/21/22 08:41 Microbiology 11/18/22 Unknown Urine Culture - Final Urine,Straight Cath Yeast not Torri albicans/dub Diagnostic Findings (Past 24 Hours) Chest X-Ray 11/20/22 09:12 SINGLE VIEW CHEST CLINICAL HISTORY: Respiratory failure. Intubation. FINDINGS: An AP, portable, upright chest radiograph is compared to performed earlier this day 11/20/2022 and correlated with chest CT dated 11/18/2022. An endotracheal tube has been placed. The tip projects approximately 4 cm above the ava. An enteric tube has been placed. The tip projects below the diaphragm over the stomach. The patient is status post midline sternotomy. The heart is enlarged noting atherosclerotic calcification of the thoracic aorta. There is persistent pulmonary vascular congestion. Airspace opacities likely represent mild pulmonary edema. There are trace pleural effusions with dependent atelectasis. No pneumothorax is seen. The skeletal structures are osteopenic. The bony thorax is grossly intact. Cholecystectomy clips are noted in the right upper quadrant. IMPRESSION: 1. Endotracheal and enteric tubes have been placed as above. 2. Cardiomegaly with evidence of congestive failure. Mild bilateral airspace opacities likely represent pulmonary edema. Correlate clinically for evidence of a superimposed pneumonia. This is unchanged from today's earlier examination. 3. Trace pleural effusions. ACT 112: Negative or not required by law. Electronically signed by: Geovani Dumont M.D. 11/20/2022 9:38 AM Brain MRI 11/20/22 17:24 MRI OF THE BRAIN COMBO CLINICAL HISTORY: Change in mental status. COMPARISON STUDY: CT of the brain dated 11/19/2022. TECHNIQUE: MRI of the brain was performed utilizing various T1 and T2-weighted sequences in the axial, sagittal, and coronal planes. Contrast-enhanced sequences were acquired following the administration of 6.4 cc of Gadavist. FINDINGS: Brain parenchyma: There is mild age-related change. There is no hemorrhage or mass effect. There is no restricted diffusion to suggest acute ischemia. No enhancing mass lesion is identified on the postcontrast images. Yuen-white matter differentiation is preserved. No extra-axial fluid collection is seen. The cerebellar tonsils are normal in configuration. Ventricles, sulci, and cisterns: Normal in configuration. Pituitary and sella: Partially empty sella is incidentally noted. Intracranial vasculature: Normal flow voids are maintained at the skull base. Orbits: The bony orbits are grossly intact. Orbital contents are normal in appearance nothing bilateral ocular lens implant. Sinuses and mastoids: The sinuses and mastoids are clear. Secretions are noted in the pharynx. Calvarium: Unremarkable. Cervical cord: Partially visualized cervical spinal cord is normal in morphology and signal intensity. IMPRESSION: No acute intracranial abnormality. ACT 112: Negative or not required by law. Electronically signed by: Geovani Dumont M.D. 11/20/2022 1:41 PM Chest X-Ray 11/21/22 07:00 XR chest 1V portable CLINICAL HISTORY: Respiratory failure. COMPARISON STUDY: Chest CT November 18, 2022. Chest radiograph November 20, 2022. FINDINGS: Tip of endotracheal tube is 2.5 cm above the ava. Tip of nasogastric tube is below the lower aspect of this image but at least within the stomach. There are median sternotomy wires and mediastinal surgical clips. Cardiomegaly is unchanged. Interstitial thickening and airspace opacities have improved. Small left pleural effusion is noted. There is no pneumothorax. IMPRESSION: 1. Interval improvement in pulmonary edema. 2. Small left pleural effusion. No pneumothorax. 3. Satisfactory positioning of the endotracheal and nasogastric tubes. ACT 112: Negative or not required by law. Electronically signed by: Grover Delacruz M.D. 11/21/2022 7:56 AM I & O Totals 24 Hours 11/20/22 11/21/22 11/22/22 06:59 06:59 06:59 Intake Total 1671.032 / 4169.588 3711.848 / 2072.848 Output Total 1120 / 1120 600 / 600 Balance 551.032 / 431.744 6779.848 / 1472.848 Cumulative 11/16/22 15:06 thru 11/21/22 06:00 Intake Total 7799.430 Output Total 4870 Balance 2929.430 RT Ventilator Mngmt (Last Documented) Ventilator Ordered Settings Ventilator Support Mode Assist Control 11/21/22 02:23 Respiratory Rate 20 11/21/22 07:30 Ventilator Tidal Volume 400 11/21/22 02:23 Setting Minute Ventilation 8 11/21/22 02:23 Positive End Expiratory 8 11/21/22 02:23 Pressure Fraction of Inspired Oxygen 30 11/21/22 07:30 Ventilator - PT Measurements Respiratory Rate 20 Exhaled Tidal Volume 400 Minute Ventilation 8 Peak Inspiratory Airway 24 Pressure Plateau Pressure 18.4 Respiratory Cycle Inspiratory: 1:2.8 Expiratory Ratio Inspiratory Phase Time 0.80 End-Tidal CO2 26 Static Lung Compliance 38.46 Dynamic Lung Compliance 25.00 Normal Static Lung Compliance 46.00 Coding Level of Care Code 45618 CRITICAL CARE 1ST 30-74M Diagnoses Acute respiratory failure with hypoxia J96.01 COPD (chronic obstructive pulmonary disease) J44.9 Pleural effusion J90 Encephalopathy G93.40 Multifocal pneumonia J18.9 Acute on chronic combined systolic and diastolic CHF (congestive heart failure) I50.43 PAD (peripheral artery disease) I73.9 UTI (urinary tract infection) N39.0 Diabetes mellitus, type 2 E11.69; Z79.4 Diabetes mellitus complication status: with other specified complication Diabetes mellitus fdc insulin 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
[2022-11-21 10:40] LABS: Reticulocyte % 2.5 % (0.5-2.0); Reticulocytes # 0.07 10^6/uL (0.02-0.10)
[2022-11-21] MEDS ORDERED: ACETAMINOPHEN SUSP 325 MG/10.15 ML UDC NG PRN (10:55)
[2022-11-21] MEDS: LANTUS PER UNIT CHARGE SC SCH ×2 (11:07→20:59)
[2022-11-21] MEDS: DOXYCYCLINE HYCLATE 100 MG in D5W MINI-B 100 ML (Q12H) IV SCH ×2 (11:10→23:00)
[2022-11-21 11:17] LABS: Ferritin 227.5 ng/ml (8-388)
[2022-11-21] MEDS ORDERED: VANCOMYCIN HCL 1,000 MG in DEXTROSE 5% 250 ML IV ONE (11:45)
--- NOTE | 2022-11-21 11:47 | Pharmacy Report ---
Pharmacy PK ABX Note - Date of Service November 21, 2022 - Assessment and Plan Assessment 62 year old F receiving cefepime and vancomycin for pneumonia. Pertinent microbiologic data includes: Positive MRSA Nasal Swab. SCr trending up (1.05-->1.12-->1.41) and decreased UOP today. Day #5/7 of vancomycin therapy Vancomycin * Random level this AM (~24hr level), 19.3mcg/mL. Predicted to achieve ssAUC 714mg/L.hr which is supratherapeutic. Plan Vancomycin * Given SCr up-trending and decreased UOP, will dose by levels for now. Vanc 1gm IV X 1 dose now. * Doses diluted in D5W given hypernatremia * Repeat level in AM to guide further dosing Pharmacy will continue to follow and will adjust dose/frequency as necessary. Thank you. Pharmacy has transitioned to AUC monitoring for vancomycin. AUC/ELI is the preferred PK/PD target and is associated with decreased risk of nephrotoxicity compared to traditional trough targets.
[2022-11-21] MEDS: DULoxetine HCL 30 MG CAP PO SCH (12:02)
[2022-11-21] MEDS: DULoxetine HCL 60 MG CAP GT SCH (12:02)
[2022-11-21] MEDS: TOPIRAMATE 50 MG TAB PO SCH ×3 (12:02→20:37)
--- NOTE | 2022-11-21 13:59 | Pharmacy Report ---
Pharmacy Glycemic Short Note 2 - Date of Service November 21, 2022 - Glycemic Short BSG Results (Last 24 hours): 11/20/22 11/20/22 11/20/22 16:06 17:13 20:08 Glucose 91 POC Glucose 124 H 98 11/21/22 11/21/22 11/21/22 01:31 03:14 03:18 Glucose 104 H POC Glucose 114 H 114 H 11/21/22 11/21/22 08:47 11:32 Glucose POC Glucose 127 H 153 H OUTPATIENT ANTIDIABETIC REGIMEN: * Basaglar 35 units SC qAM * Novolog TID SSI HbA1c: 9.4% (10/31/22) ASSESSMENT: 11/21: * BSGs [phone]/dL. Received 35 units of basal and 10 units of bolus insulin yesterday. * Intubated/sedated. Continues on antibiotics and tube feeds. * Will scale basal based upon BSG given on/off tube feeds and possibility of becoming NPO. Continue current novolog parameters. 11/20/22: * Patient intubated today. Precedex off, propofol and fentanyl started. * Peptamen intense VHP (78 g CHO/L) initiated at 10 mL/hr (goal rate of 45 mL/hr) * Gave large basal dose this morning - will utilize short-acting for rest of today and reassess basal need tomorrow * Remains on broad spectrum antibiotics (vanco/cefepime) 11/19/22: * JETT is a 62 year old female known to pharmacy glycemic consult service * Patient has complicated PMH w/ multiple comorbidities including CAD, hx endocarditis, valvular heart disease, COPD, anemia, T2DM, etc. * Admitted on 11/16/22 w/ encephalopathy (likely multifactorial in nature) * BSGs have been labile since admission, pharmacy consulted for glycemic management on 11/19 * Currently receiving broad spectrum antibiotics (vancomycin/cefepime) * Precedex infusing PLAN FOR INPATIENT GLYCEMIC CONTROL: * Basal insulin * Lantus BID per scale (0/15/15 units based upon BSG) * Bolus insulin * NovoLog per scale ACHS or Q6hrs while NPO * Goal Range: Low 110 mg/dL - High 140 mg/dL * Correction Factor: 20 mg/dL/unit * Nutritional / Prandial insulin per carb ratio of 1 unit per 8 grams CHO consumed
[2022-11-21] MEDS: OLANZapine 5 MG TABLET PO SCH (20:32)
[2022-11-21] MEDS ORDERED: OLANZapine 10 MG/2.1 ML SDV IM STA (20:35)
[2022-11-21] MEDS ORDERED: METOPROLOL TARTRATE 1 MG/ML VIAL IV STA (20:41)
[2022-11-21] MEDS: ENOXAPARIN INJ 40 MG/0.4 ML SYR SQ SCH (21:00)
[2022-11-22] MEDS: LEVALBUTEROL 1.25 MG/3 ML NEB NEB SCH ×2 (00:14→07:25)
[2022-11-22] MEDS: IPRATROPIUM BROMIDE NEB SOLN 0.02% 2.5 ML VIAL INH SCH ×2 (00:14→07:26)
[2022-11-22] MEDS: METOPROLOL TARTRATE 1 MG/ML VIAL IV SCH ×5 (00:27→23:40)
[2022-11-22] MEDS: INSULIN ASPART PER UNIT CHARGE SC SCH ×7 (00:42→23:55)
[2022-11-22] MEDS: hydrALAZINE HCL 20 MG/ML VIAL IV PRN (01:03)
[2022-11-22 02:37] LABS: 18KDIGG Band NON-REACTIVE; 23KDIGG Band NON-REACTIVE; 23KDIGM Band REACTIVE; 28KDIGG Band NON-REACTIVE; 30KDIGG Band NON-REACTIVE; 39KDIGG Band NON-REACTIVE; 39KDIGM Band NON-REACTIVE; 41KDIGG Band NON-REACTIVE; 41KDIGM Band REACTIVE; 45KDIGG Band NON-REACTIVE; 58KDIGG Band NON-REACTIVE; 66KDIGG Band NON-REACTIVE; 93KDIGG Band NON-REACTIVE; Lyme Antibodies, WB IgG NEGATIVE (NEGATIVE); Lyme Antibodies, WB IgM POSITIVE (NEGATIVE)
[2022-11-22 04:22] LABS: Basophils # (auto) 0.02 K/uL (0.00-0.20); Basophils % (auto) 0.2 %; Eosinophils # (auto) 0.28 K/uL (0.00-0.50); Eosinophils % (auto) 3.2 %; Hematocrit (blood only) 26.4 % (37.0-47.0); Hemoglobin 7.9 g/dl (12.0-16.0); Immature Granulocytes # (auto) 0.11 K/uL (0.01-0.20); Immature Granulocytes % (auto) 1.3 %; Lymphocytes % (auto) 17.2 %; Mean Corpuscular Hemoglobin 28.8 pg (25.0-34.0); Mean Corpuscular Hgb Conc 29.9 g/dL (32.0-36.0); Mean Corpuscular Volume 96.4 fL (80.0-100.0); Mean Platelet Volume 12.7 fL (9.4-12.4); Monocytes # (auto) 2.43 K/uL (0.11-0.59); Monocytes % (auto) 27.8 %; Neutrophils % (auto) 50.3 %; Nucleated RBC # (auto) 0.02 K/uL (0.00-0.12); Nucleated RBC % (auto) 0.2 %; Platelet Count 166 K/uL (130-400); RDW Coefficient of Variation 17.9 % (11.5-14.5); RDW Standard Deviation 62.1 fL (36.4-46.3); Red Blood Count 2.74 M/uL (4.20-5.40); White Blood Count 8.74 K/ul (4.8-10.8)
[2022-11-22 04:41] LABS: BUN Creatinine Ratio 38.5 (10-20); Calcium 9.2 mg/dl (8.6-10.3); Creatinine Clr Calc Pharmacy 49.8 ml/min; Est GFR (African American) 65.8 ml/min; Est GFR (Non-African American) 56.7 ml/min; Magnesium 2.2 mg/dl (1.7-2.4); Phosphorus 2.3 mg/dl (2.5-4.9); Polychromasia 1+
[2022-11-22] MEDS ORDERED: SODIUM PHOSPHATE 3 MMOL/1 ML INFUSION IV STA (05:51)
[2022-11-22] MEDS ORDERED: SODIUM PHOSPHATE 15 MMOL in SODIUM CHLORIDE 0.9% 250 ML IV ONE (06:00)
[2022-11-22] MEDS: ICU ELECTROLYTE REPLACEMENT PROTOCOL SCH ×2 (06:11→18:27)
[2022-11-22] MEDS: CEFEPIME 2,000 MG in SYRINGE 0 ML IV SCH (06:12)
[2022-11-22] MEDS: PANTOprazole 40 MG in SYRINGE 0 ML IV SCH ×2 (08:57→19:43)
[2022-11-22] MEDS: LANTUS PER UNIT CHARGE SC SCH ×2 (09:18→19:42)
--- NOTE | 2022-11-22 09:37 | Critical Care Progress Note ---
Date of Service November 22, 2022 Assessment & Plan (1) Acute respiratory failure with hypoxia: (2) COPD (chronic obstructive pulmonary disease): (3) Pleural effusion: (4) Encephalopathy: (5) Multifocal pneumonia: (6) Acute on chronic combined systolic and diastolic CHF (congestive heart failure): (7) PAD (peripheral artery disease): (8) UTI (urinary tract infection): (9) Diabetes mellitus, type 2: (10) HTN (hypertension): (11) Coronary artery disease: Plan Reason Critically Ill: 62-year-old female past medical history of moderate to severe MR, coronary artery disease status post CABG, left bundle branch block, dyslipidemia, tobacco use presented to the hospital with altered mental status and pulmonary edema along with left-sided pneumonia. In the ICU for hypoxia and mental changes CT chest 11/18/2022ersonally reviewed: Interlobular thickening appreciated b ilaterally especially on the left side Bilateral pleural effusion left greater than the right Questionable consolidative process on the left side Cardiomegaly Minimal significant mediastinal lymphadenopathy Neuro - Encephalopathy Multifactorial -Underlying sepsis from left-sided pneumonia playing a role along with underlying mood disorder -MRI reviewed. -Prior records report psychotic episode/mood disorder - Restart home zyprexa 5mg nightly, topamax 50mg bid; cymbalata 90mg daily -Transitioning meds to hold secondary to patient refusing to take p.o./encephalopathic -Neuro Lyme's in the differential, she has had 2 IgM Western blot's positive both in July and November, neither time has a IgG been positive -If this were to represent an active Lyme infection I would consider this to be early with questionable severe however she is not meeting criteria typical of neuro Lyme: Cranial nerve palsy meningitis radiculoneuropathy this could represent severe encephalitis which would be treated with 21 to 28 days of Rocephin acceptable alternatives include doxycycline for 14 to 21 days even for early neuro involvement -Reasons to obtain CSF sampling would be to obtain a Lyme CSF study however a negative result is not conclusive therefore empiric treatment may be indicated, this may however benefit evaluating for syphilis which again I believe is low. We will discussed risk benefits of CSF sampling with patient's daughter -Obtain EEG for continued dense encephalopathy U tox negative, TSH within normal limit Cardiac - --Acute on chronic diastolic heart failure/mitral regurgitation -Continue diuresis to maintain negative fluid balance Elevated troponins on previous admissions -Repeat troponins, could this be early evidence of carditis related to Lyme's? 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 -EKG reviewed no evidence of interval prolongation, again I feel Lyme carditis is unlikely 2D echo 10/31/2022: EF 55-60%, moderate to severe MR, mild concentric LVH no pulmonary hypertension CADhistory of CABG x4 -No ST elevations on EKG, troponins unremarkable -On isosorbide mononitrate, MTP, Plavix, ASA, statin -Continuous monitor on telemetry Respiratory - --Acute on chronic hypoxic respiratory failure Multifactorial -possible hxc CHF with bilateral pleural effusion, effusions no longer present Left-sided pneumonia: Resolved Respiratory bio fire negative for everything on 11/16/2022 Procalcitonin 0.38,nasal MRSA positive BNP 467 Thoracentesis 11/03/2022 left-sided, 1300 mL serosanguineous fluid removed,31% lymphocytes,exudative as per LDH, lights criteria, no obvious pleural effusion on radiography Pleural fluid: LDH 242, protein less than 3, glucose 127, pH 7.46 Serum: LDH 339, protein 3.6 BiPAP nightly and as needed shortness of breath will be beneficial --Tobacco abuse Possibility of patient having COPD is there - Per daughter's report patient had previously been ordered 2 L of oxygen and CPAP for obstructive sleep apnea -There is an extensive history of ongoing tobacco use/dependency when the patient was found she was not on oxygen -Daughter additionally confirms that she has seen patient with cigarettes while wearing oxygen and is concerned she does smoke with oxygen present. -Referral to office of aging for resources, daughter is concerned patient needs is exceeding her ability to live independently. GI - N.p.o. Constipation: Positive bowel sounds continue with current bowel regimen -Patient currently refusing to take anything by mouth, purses lips when approached RENAL/LYTES - -- GUY --> improving Hyperchloremic state, suspect contraction alkalosis with mixed hyperchloremic metabolic acidosis -Check VBG -Start maintenance fluids of Plasma-Lyte at 70 mL/h as patient not taking volitional p.o. and no longer receiving supplemental tube feeds - Foleystrict I's and O's ENDO - DM type IIcontinue with basal bolus/sliding scale insulin. ICU hyperglycemic protocol TSH within normal limits HEME - -- Drop in hemoglobin No signs of melena BUN elevated, questionable upper GI bleed Continue with pantoprazole -Iron studies more indicative of anemia of chronic disease, reticulocyte count is elevated, haptoglobin pending, peripheral smear: Patient has been transfused 2 times so far, once in the ICU --New onset thrombocytopenia: Resolved Continue to monitor ID - New onset fever -Patient extubated yesterday, certainly could represent silent aspiration as patient is encephalopathic -Cannot exclude SHORT PIECE HANDLER infection however I consider this to be rather unlikely will discuss risk benefits of LP with daughter, patient has been on antibiotics -- Pneumonialeft-sided consolidation on CT chest along with leukocytosis. -Lyme panel negative, bio fire negative -Patient did have history of UTI with Klebsiella, completed antibiotic course, urinalysis 11/18/2022 negative for nitrites and bacteria -Nasal MRSA positive -Sputum culture pending -Continue broad-spectrum antibiotics with Day 7 cefepime of 7 day course and Day 6 of 7 vancomycin: 2 L oxygen: No new oxygen requirement - 11/17, 11/18 received doxycycline - treat with 14 day doxycycline for atypical coverage as well as possible Lyme coverage -With regards to the aspect of neuro Lyme if this was early doxycycline for 14 to 21 days would be indicated if this is early severe or late it transitions to 28 days of Rocephin -Transition to Rocephin for empiric treatment as even with obtaining CSF studies neuro Lyme would be inconclusive given new onset fever and continued intense encephalopathy -Add blood cultures and fungal culture given questionable history of endocarditis and history of MRSA bacteremia for fever of unknown origin -Continue doxycycline for total 7 days therapy to cover for atypical lung organisms -08/03- course of doxycycline for positive lyme titer -Discontinue Brewer placed PureWick for hygiene purposes -Antibiotic regimen for this admission includes 6 days effective therapy of cefepime, will treat for 7 days effective therapy of vancomycin, planning 7 days effective therapy doxycycline for atypical pulmonary organisms, 28 days Rocephin IV for possible neuro Lyme --Prophylaxis VTE: Lovenox GI: Pantoprazole, continue IV as patient refusing p.o. and this was an outpatient medication Lines: Peripheral, will place midline versus PICC as patient is planning to have 28 days of IV antibiotics and is encephalopathic difficult to obtain labs from so improved vascular access would be beneficial Diet: N.p.o. I have personally spent 80 minutes of critical care time in the direct management of this patient. This is a life/limb threatening event. This includes time spent evaluating patient, direct bedside care, chart review, placing orders, interpretation of diagnostic studies, discussion with consultants, patient, and family members, as well as other required patient management activities. This time is exclusive of all separately billable procedures, and teaching time and separate from and in addition to any other critical care service time. Update 1730: Discussed with patient's daughter current status and risks benefits of LP, we are deferring on LP and opting for empiric treatment. We will proceed with PICC versus midline placement for long-term antibiotic administration. Discussed possible need for temporary feeding access if patient is unable to take volitional p.o. in next 24 to 48 hours. Admission and Anticipated Discharge Date Admission Date: November 16, 2022 Review of Systems Review of Systems: Unobtainable due to cognitive status Physical Exam Physical Exam: General: Sedated. nontoxic. Skin: Warm, dry, Head: Atraumatic Ears, nose, mouth and throat: airway obscured by endotracheal tube Cardiovascular: Normal peripheral perfusion Respiratory: Ventilator settings reviewed Gastrointestinal: Non distended Results & Data Results & Data Vital Signs (Past 12 Hours) Vital Signs Temp Pulse Pulse Resp BP Pulse Ox O2 Del Method 11/22/22 07:26 98 H 21 95 Nasal Cannula 11/22/22 06:28 95 H 187/87 H 11/22/22 06:30 37.9 C H 103 H 22 94 11/22/22 06:30 187/87 H 11/22/22 06:20 37.8 C H 105 H 30 H 98 11/22/22 06:10 37.7 C H 105 H 22 99 11/22/22 06:01 148/70 H 11/22/22 06:01 37.7 C H 100 H 20 96 11/22/22 06:00 37.7 C H 104 H 16 11/22/22 05:50 37.7 C H 102 H 19 98 11/22/22 05:40 37.7 C H 103 H 23 98 11/22/22 05:30 37.7 C H 103 H 25 H 11/22/22 05:30 159/65 H 11/22/22 05:20 37.7 C H 103 H 22 98 11/22/22 05:10 37.7 C H 101 H 26 H 98 11/22/22 05:00 37.7 C H 103 H 24 93 11/22/22 05:00 159/72 H 11/22/22 04:50 37.7 C H 103 H 21 98 11/22/22 04:40 37.7 C H 102 H 25 H 98 11/22/22 04:30 37.7 C H 100 H 24 94 11/22/22 04:20 37.7 C H 102 H 24 97 11/22/22 04:10 37.7 C H 100 H 23 97 11/22/22 06:13 104 H 148/70 H 11/22/22 04:03 136/75 11/22/22 04:03 37.7 C H 110 H 30 H 95 11/22/22 04:00 37.7 C H 103 H 26 H 97 11/22/22 03:50 37.7 C H 99 H 21 98 11/22/22 03:40 37.7 C H 100 H 22 98 11/22/22 03:30 37.7 C H 104 H 20 94 11/22/22 03:30 151/66 H 11/22/22 03:20 37.7 C H 99 H 22 98 11/22/22 03:10 37.7 C H 102 H 22 97 11/22/22 03:00 37.7 C H 101 H 23 11/22/22 02:50 37.7 C H 99 H 20 97 11/22/22 02:40 37.7 C H 102 H 19 96 11/22/22 02:30 37.6 C H 100 H 22 94 11/22/22 02:20 37.6 C H 101 H 21 97 11/22/22 02:10 37.6 C H 99 H 21 97 11/22/22 02:00 37.6 C H 97 H 23 95 11/22/22 01:50 37.6 C H 98 H 20 97 11/22/22 01:40 37.6 C H 96 H 20 97 11/22/22 01:31 37.6 C H 98 H 17 97 11/22/22 01:31 144/70 H 11/22/22 01:30 37.6 C H 98 H 20 11/22/22 01:20 37.6 C H 97 H 22 99 11/22/22 01:10 37.6 C H 96 H 19 98 11/22/22 01:02 182/85 H 11/22/22 01:02 37.6 C H 95 H 23 100 11/22/22 01:00 37.6 C H 96 H 18 97 11/22/22 00:50 37.5 C 95 H 17 99 11/22/22 00:40 37.5 C 104 H 36 H 98 11/22/22 00:30 37.3 C 105 H 20 98 11/22/22 00:30 174/103 H 11/22/22 00:20 37.3 C 106 H 23 100 11/22/22 00:10 37.2 C 103 H 23 99 11/22/22 00:00 37.2 C 89 24 97 11/21/22 23:50 37.2 C 90 16 99 11/21/22 23:40 37.1 C 88 17 99 11/21/22 23:30 37.1 C 88 16 97 11/21/22 23:30 157/72 H 11/21/22 23:20 37.1 C 87 16 99 11/21/22 23:10 37.1 C 87 18 99 11/21/22 23:00 37.1 C 86 15 96 11/21/22 23:00 153/70 H 11/21/22 22:50 37.1 C 87 17 99 11/21/22 22:40 37.1 C 86 16 99 11/21/22 22:30 37.1 C 88 15 95 11/21/22 22:30 144/83 H 11/21/22 22:20 37.2 C 88 16 99 11/21/22 22:10 37.2 C 88 17 98 11/21/22 22:00 37.2 C 86 17 11/21/22 21:50 37.3 C 87 18 98 11/21/22 21:40 37.3 C 89 18 98 11/22/22 01:00 101 H 11/22/22 00:42 102 H 174/103 H 11/22/22 00:27 103 H 151/80 H 11/22/22 00:15 103 H 21 97 Nasal Cannula O2 Flow Rate 11/22/22 07:26 2 11/22/22 06:28 11/22/22 06:30 11/22/22 06:30 11/22/22 06:20 11/22/22 06:10 11/22/22 06:01 11/22/22 06:01 11/22/22 06:00 11/22/22 05:50 11/22/22 05:40 11/22/22 05:30 11/22/22 05:30 11/22/22 05:20 11/22/22 05:10 11/22/22 05:00 11/22/22 05:00 11/22/22 04:50 11/22/22 04:40 11/22/22 04:30 11/22/22 04:20 11/22/22 04:10 11/22/22 06:13 11/22/22 04:03 11/22/22 04:03 11/22/22 04:00 11/22/22 03:50 11/22/22 03:40 11/22/22 03:30 11/22/22 03:30 11/22/22 03:20 11/22/22 03:10 11/22/22 03:00 11/22/22 02:50 11/22/22 02:40 11/22/22 02:30 11/22/22 02:20 11/22/22 02:10 11/22/22 02:00 11/22/22 01:50 11/22/22 01:40 11/22/22 01:31 11/22/22 01:31 11/22/22 01:30 11/22/22 01:20 11/22/22 01:10 11/22/22 01:02 11/22/22 01:02 11/22/22 01:00 11/22/22 00:50 11/22/22 00:40 11/22/22 00:30 11/22/22 00:30 11/22/22 00:20 11/22/22 00:10 11/22/22 00:00 11/21/22 23:50 11/21/22 23:40 11/21/22 23:30 11/21/22 23:30 11/21/22 23:20 11/21/22 23:10 11/21/22 23:00 11/21/22 23:00 11/21/22 22:50 11/21/22 22:40 11/21/22 22:30 11/21/22 22:30 11/21/22 22:20 11/21/22 22:10 11/21/22 22:00 11/21/22 21:50 11/21/22 21:40 11/22/22 01:00 11/22/22 00:42 11/22/22 00:27 11/22/22 00:15 9 Coding Level of Care Code 04020 CRITICAL CARE EA ADD 30M Additional Critical Care Time Additional 30min Critical Care Time: Yes - 87159 Diagnoses Acute respiratory failure with hypoxia J96.01 COPD (chronic obstructive pulmonary disease) J44.9 COPD type: unspecified COPD Pleural effusion J90 Encephalopathy G93.40 Multifocal pneumonia J18.9 Acute on chronic combined systolic and diastolic CHF (congestive heart failure) I50.43 PAD (peripheral artery disease) I73.9 UTI (urinary tract infection) N39.0 Diabetes mellitus, type 2 E11.69; Z79.4 Diabetes mellitus complication status: with other specified complication Diabetes mellitus terminal clerk insulin use: with longterm use HTN (hypertension) I10 Coronary artery disease I25.10 Additional Codes Critical Care Time - Additional 30min Critical Care Time: Yes - [id number] ([id number]) (2) COPD (chronic obstructive pulmonary disease) COPD type: unspecified COPD Qualified Code(s): J44.9 - Chronic obstructive pulmonary disease, unspecified (9) Diabetes mellitus, type 2 Diabetes mellitus complication status: with other specified complication Diabetes mellitus terminal clerk insulin use: with terminal clerk use Qualified Code(s): E11.69 - Type 2 diabetes mellitus with other specified complication; Z79.4 - termite technician (current) use of insulin
[2022-11-22 10:23] LABS: Base Excess VBG -7.3 mEq/L; HCO3 VBG 17 mmol/L; Oxygen Saturation VBG 91.2 %; PCO2 VBG 30 mmHg (38-50); PO2 VBG 60 mmHg; pH VBG 7.36 (7.36-7.41)
[2022-11-22] MEDS: ASPIRIN 81 MG CHEW PO SCH (10:28)
[2022-11-22] MEDS: DOCUSATE SODIUM SYRUP 100 MG/10 ML UDC NG SCH ×2 (10:28→19:42)
[2022-11-22] MEDS: TOPIRAMATE 50 MG TAB PO SCH (10:29)
[2022-11-22] MEDS: MULTI VIT W/MINERALS LIQUID 15 ML UDP NG SCH (10:29)
[2022-11-22] MEDS: SENNOSIDES 8.8 MG/5 ML UDC PO SCH (10:29)
[2022-11-22] MEDS: METOPROLOL TARTRATE 25 MG TAB OG SCH (10:30)
[2022-11-22] MEDS: DULoxetine HCL 30 MG CAP PO SCH (10:30)
[2022-11-22] MEDS: DULoxetine HCL 60 MG CAP GT SCH (10:30)
[2022-11-22] MEDS: cefTRIAXone SODIUM 2,000 MG in DEXTROSE 5 % MINI-B 50 ML IV SCH (10:43)
[2022-11-22] MEDS ORDERED: ACETAMINOPHEN 1,000 MG/100 ML VIAL IV PRN (11:06)
[2022-11-22] MEDS ORDERED: IPRATROPIUM BROMIDE NEB SOLN 0.02% 2.5 ML VIAL INH PRN (11:17)
[2022-11-22] MEDS ORDERED: LEVALBUTEROL 1.25 MG/3 ML NEB NEB PRN (11:17)
[2022-11-22] MEDS: PLASMA-LYTE A 1,000 ML IV SCH (11:30)
[2022-11-22] MEDS: DOXYCYCLINE HYCLATE 100 MG in D5W MINI-B 100 ML (Q12H) IV SCH ×2 (12:27→23:38)
--- NOTE | 2022-11-22 12:37 | Pharmacy Report ---
Pharmacy PK ABX Note - Date of Service November 22, 2022 - Assessment and Plan Assessment 62 year old F receiving cefepime, doxycycline, and vancomycin for pneumonia. Pertinent microbiologic data includes: Positive MRSA Nasal Swab. SCr down to 1.04 today. Day #6/7 of vancomycin therapy Vancomycin * Random level this AM (~21hr level), 17.8mcg/mL. Plan Vancomycin * Vancomycin 1gm IV q24h X 2 doses to complete the course given improved renal function * Doses diluted in D5W given hypernatremia Pharmacy will continue to follow and will adjust dose/frequency as necessary. Thank you. Pharmacy has transitioned to AUC monitoring for vancomycin. AUC/ELI is the preferred PK/PD target and is associated with decreased risk of nephrotoxicity compared to traditional trough targets.
--- NOTE | 2022-11-22 12:55 | Hospitalist Progress Note ---
Date of Service November 22, 2022 Assessment & Plan (1) Encephalopathy: Plan Pt is a 62yoF with PMHx significant for chronic diastolic heart failure (EF 55 to 60%, TTE 2022), CAD s/p CABG, PVD, valvular heart disease (moderate to severe MR), history mitral valve endocarditis/periaortic abscess, chronic LBBB, chronic respiratory failure on home O2, ISAURA on CPAP, hypertension, hyperlipidemia, DM 2, GERD, chronic anemia, mood disorder and Hx of MRSA bacteremia presenting with AMS. AMS Encephalopathy Per daughter this is new since discharge recently. Head CT with no acute changes, Brain MRI 11/20- no acute abnormality. WBC significantly elevated but chest XRAY, CT abd/pelvis, UA from 11/16 all without signs of acute infection Repeat UA from 11/18 suggestive of infection, urine Cx with yeast growth. CTA chest from prior admission notes tree in bud nodularity in the right middle lobe that may represent a mild infectious/inflammatory process. CT chest from 11/18 with pulmonary edema and small pleural effusions, dependent consolidations of the left upper and lower lobes may represent atelectasis versus pneumonia and left perinephric stranding. Lyme testing positive with IgM antibodies at this time, rest of panel pending - noted IgM was previously positive in July 2022. VBG from 11/16 unremarkable Blood Cultures x2 with NGTD MRSA nares positive CT chest from 11/18 suggestive of pneumonia and new UTI. Previously on Cefepime, Vancomycin and Flagyl (avoiding nephrotoxic Vanc/Zosyn combo), as well as doxycycline for the positive Lyme testing. ICU continuing Cefepime and Vancomycin. Home psychotropic meds have since been resumed. Currently extubated in ICU psych consulted Chronic hypoxic respiratory failure Pleural Effusions Pulmonary edema Hx of COPD ISAURA on CPAP Noted on CT chest from 11/18 Pt with previous Hx requiring thoracentesis and Bipap use Pulmonology previously consulted Currently in ICU GUY Cr elevated to 1.57 on admission Currently within normal limits Avoid nephrotoxic meds CAD status post CABG, PVD valvular heart disease (moderate to severe MR) history mitral valve endocarditis/periaortic abscess as per records chronic LBBB Stable hyperlipidemia Continue statin Rx DMII insulin requiring suboptimal control as of recent hemoglobin A1c of 9.4 last month basal/bolus while hospitalized, hold home meds Acute on chronic anemia hemoglobin drop from baseline Transfuse pRBCs to maintain hemoglobin of at least 8 given history CAD Hgb after transfusion from 7.5 to 9.1 on admission FOBT, iron/b12/folate and further lab studies, consider GI procedure once more stable- noted anemia normocytic Consider holding home plavix and aspirin. Mood disorder/paranoia On olanzapine Diet: NPO in ICU DVT prophylaxis: Hold with anemia requiring transfusion CODE STATUS: Full code Dispo: Currently critical in the ICU Admission and Anticipated Discharge Date Admission Date: November 16, 2022 Subjective Pt seen, on exam resting comfortably. Nods yes to every question. Per nursing she has been kicking and screaming, cursing. Repeating what is said. Review of Systems Review of Systems: Unobtainable due to cognitive status Physical Exam Physical Exam: General: was resting comfortably Psych: Neuro: HEENT: NC/AT Chest: Nontender to palpation. CV: RRR Resp: no increased effort of breathing. Abdomen: Soft Extremities: L BKA, no edema in right lower extremity Results & Data Results & Data Vital Signs (Past 12 Hours) Vital Signs Temp Pulse Pulse Resp BP Pulse Ox O2 Del Method 11/22/22 12:28 120 H 163/74 H 11/22/22 11:00 38.4 C H 118 H 25 H 168/74 H 91 Nasal Cannula 11/22/22 10:30 38.4 C H 117 H 25 H 160/76 H 92 Nasal Cannula 11/22/22 10:00 38.2 C H 116 H 26 H 158/77 H 92 11/22/22 09:30 38.2 C H 114 H 21 178/84 H 94 Nasal Cannula 11/22/22 09:00 38.0 C H 117 H 26 H 186/90 H 91 11/22/22 08:30 37.9 C H 107 H 19 163/72 H 90 Nasal Cannula 11/22/22 08:00 37.8 C H 105 H 21 159/71 H 91 11/22/22 07:30 37.8 C H 98 H 28 H 149/60 H 92 Nasal Cannula 11/22/22 11:06 Nasal Cannula 11/22/22 07:26 98 H 21 95 Nasal Cannula 11/22/22 06:28 95 H 187/87 H 11/22/22 06:30 37.9 C H 103 H 22 94 11/22/22 06:30 187/87 H 11/22/22 06:20 37.8 C H 105 H 30 H 98 11/22/22 06:10 37.7 C H 105 H 22 99 11/22/22 06:01 148/70 H 11/22/22 06:01 37.7 C H 100 H 20 96 11/22/22 06:00 37.7 C H 104 H 16 11/22/22 05:50 37.7 C H 102 H 19 98 11/22/22 05:40 37.7 C H 103 H 23 98 11/22/22 05:30 37.7 C H 103 H 25 H 11/22/22 05:30 159/65 H 11/22/22 05:20 37.7 C H 103 H 22 98 11/22/22 05:10 37.7 C H 101 H 26 H 98 11/22/22 05:00 37.7 C H 103 H 24 93 11/22/22 05:00 159/72 H 11/22/22 04:50 37.7 C H 103 H 21 98 11/22/22 04:40 37.7 C H 102 H 25 H 98 11/22/22 04:30 37.7 C H 100 H 24 94 11/22/22 04:20 37.7 C H 102 H 24 97 11/22/22 04:10 37.7 C H 100 H 23 97 11/22/22 06:13 104 H 148/70 H 11/22/22 04:03 136/75 11/22/22 04:03 37.7 C H 110 H 30 H 95 11/22/22 04:00 37.7 C H 103 H 26 H 97 11/22/22 03:50 37.7 C H 99 H 21 98 11/22/22 03:40 37.7 C H 100 H 22 98 11/22/22 03:30 37.7 C H 104 H 20 94 11/22/22 03:30 151/66 H 11/22/22 03:20 37.7 C H 99 H 22 98 11/22/22 03:10 37.7 C H 102 H 22 97 11/22/22 03:00 37.7 C H 101 H 23 11/22/22 02:50 37.7 C H 99 H 20 97 11/22/22 02:40 37.7 C H 102 H 19 96 11/22/22 02:30 37.6 C H 100 H 22 94 11/22/22 02:20 37.6 C H 101 H 21 97 11/22/22 02:10 37.6 C H 99 H 21 97 11/22/22 02:00 37.6 C H 97 H 23 95 11/22/22 01:50 37.6 C H 98 H 20 97 11/22/22 01:40 37.6 C H 96 H 20 97 11/22/22 01:31 37.6 C H 98 H 17 97 11/22/22 01:31 144/70 H 11/22/22 01:30 37.6 C H 98 H 20 11/22/22 01:20 37.6 C H 97 H 22 99 11/22/22 01:10 37.6 C H 96 H 19 98 11/22/22 01:02 182/85 H 11/22/22 01:02 37.6 C H 95 H 23 100 11/22/22 01:00 37.6 C H 96 H 18 97 11/22/22 01:00 101 H O2 Flow Rate 11/22/22 12:28 11/22/22 11:00 2 11/22/22 10:30 2 11/22/22 10:00 11/22/22 09:30 2 11/22/22 09:00 11/22/22 08:30 2 11/22/22 08:00 11/22/22 07:30 2 11/22/22 11:06 2 11/22/22 07:26 2 11/22/22 06:28 11/22/22 06:30 11/22/22 06:30 11/22/22 06:20 11/22/22 06:10 11/22/22 06:01 11/22/22 06:01 11/22/22 06:00 11/22/22 05:50 11/22/22 05:40 11/22/22 05:30 11/22/22 05:30 11/22/22 05:20 11/22/22 05:10 11/22/22 05:00 11/22/22 05:00 11/22/22 04:50 11/22/22 04:40 11/22/22 04:30 11/22/22 04:20 11/22/22 04:10 11/22/22 06:13 11/22/22 04:03 11/22/22 04:03 11/22/22 04:00 11/22/22 03:50 11/22/22 03:40 11/22/22 03:30 11/22/22 03:30 11/22/22 03:20 11/22/22 03:10 11/22/22 03:00 11/22/22 02:50 11/22/22 02:40 11/22/22 02:30 11/22/22 02:20 11/22/22 02:10 11/22/22 02:00 11/22/22 01:50 11/22/22 01:40 11/22/22 01:31 11/22/22 01:31 11/22/22 01:30 11/22/22 01:20 11/22/22 01:10 11/22/22 01:02 11/22/22 01:02 11/22/22 01:00 11/22/22 01:00
[2022-11-22] MEDS: VANCOMYCIN HCL 1,000 MG in DEXTROSE 5% 250 ML IV SCH (13:19)
[2022-11-22 14:36] LABS: Appearance Urine Cloudy (Clear); Bacteria Urine Automated Negative (Negative); Bilirubin Urine Negative (Negative); Blood Urine 1+ (Negative); Color Urine Yellow; Epithelial Cell Urine Auto 20-30 /lpf (0-5); Glucose Urine UA Negative (Negative); Ketones Urine 1+ (Negative); Leukocyte Esterase Urine Trace (Negative); Nitrite Urine Negative (Negative); Protein Urine 2+ (Negative); Specific Gravity Urine 1.018 (1.000-1.030); Urobilinogen Urine Negative (Negative)
[2022-11-22 14:48] LABS: RBC Urine Automated 0-4 /hpf (0-4)
--- NOTE | 2022-11-22 15:24 | Psychiatric Consultation ---
Date of Consultation November 22, 2022 Impression / Recommendations Impression 62 yo female with long hx of delusional disorder, last inpatient stay 05/2022, has been repeatedly hospitalized medically for severe respiratory issues. Current presentation is most consistent with delirium superimposed on baseline paranoia possibly exacerbated by missed doses of psych meds. (1) Encephalopathy: (2) Psychotic disorder: Plan case reviewed with Dr. Napier, would suggest Haldol 2 mg IV TID standing until can consistently take PO. For breakthrough could use option of Haldol 5 mg or Zyprexa 5 mg IM. Higher doses of Zyprexa IM may be sedating and should not be coadmin with benzos IV. Avoid/limit benzos from a delirium standpoint unless hypoactive periods of her delirium become more persistent as could be catatonia. Overall, I spent a total of 63 minutes with this case, including review of chart/records, direct evaluation of the patient, counseling daughter Sylvie, coordination with nursing and hospitalist, and documentation. Psych History Identifying Data 62 yo female known to me from psychiatric consultation during 08/02/22 admission for SIRS. Consult is by hospitalist service for AMS with behavioral disturbance. Chief Complaint per daughter at bedside ongoing MS change since found at home/readmitted, w orsening required intubation (now extubated). History of Present Illness discussed with nursing as patient is unable to provide history--has been unable to receive PO meds consistently and has required prns for agitation--behaviors associated with disorientation including yelling, swinging and staff. Uncooperative with mouth care. Unclear if responds better to Haldol vs. Zyprexa, current RN noted some improvement with Haldol. Patient was laughing inappropriately during EEG. 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 Apparently has 15 yr hx of similar, in past believe house was infested and/or people living in the basement. At one point was an outpatient of Dr. Pollack at [facility]. Has been hospitalized under 302s in the past. Cymbalta and Neurontin are not prescribed by psychiatric prescribers and are likely for neuropathy/ pain indications. Donepezil is likely as decline in her self-care ADLs due to age related cognitive decline. No major cognitive disorder dx listed on chart. Denied visual byrne. lives alone with support from daughters. patient correctly identified her outpatient psychiatric nurse prac. Allergies Allergy/AdvReac Type Severity Reaction Status Date / Time latex Allergy Intermediate Rash Verified 04/28/22 13:20 Home Medications Medication Instructions Recorded Confirmed Type clopidogrel 75 mg tablet 75 mg PO DAILY 03/16/21 11/16/22 History duloxetine 60 mg capsule,delayed 90 mg PO QAM 03/16/21 11/16/22 History release topiramate 50 mg tablet 50 mg PO BID 03/16/21 11/16/22 History aspirin 81 mg tablet,delayed 81 mg PO DAILY 05/14/21 11/16/22 History release insulin aspart U-100 100 unit/mL 0 unit subcut TID 05/14/21 11/16/22 History (3 mL) subcutaneous pen (Novolog FlexPen U-100 Insulin aspart) nitroglycerin 0.4 mg sublingual 0.4 mg sublingual .PRN/UD PRN 05/14/21 11/16/22 History tablet Chest Pain acetaminophen 500 mg tablet 500 mg PO Q6H PRN Pain 08/23/21 11/16/22 History (Tylenol Extra Strength) furosemide 20 mg tablet (Lasix) 60 mg PO DAILY 08/23/21 11/16/22 History cetirizine 10 mg tablet (Zyrtec) 10 mg PO DAILY 08/02/22 11/16/22 History melatonin 5 mg tablet 5 mg PO HS 08/02/22 11/16/22 History atorvastatin 80 mg tablet 80 mg PO DAILY 08/04/22 11/16/22 History gabapentin 300 mg capsule 300 mg PO BID #60 caps 08/26/22 11/16/22 Rx insulin glargine 100 unit/mL (3 35 unit subcut QAM 10/30/22 11/16/22 History mL) subcutaneous pen (Basaglar KwikPen U-100 Insulin) metoprolol succinate 50 mg 50 mg PO QPM 10/30/22 11/16/22 History tablet,extended release 24 hr metoprolol succinate 50 mg 100 mg PO QAM 10/30/22 11/16/22 History tablet,extended release 24 hr cefdinir 300 mg capsule 300 mg PO BID #18 caps 11/08/22 11/16/22 Rx ondansetron 4 mg disintegrating 4 mg PO Q8H PRN N/V 11/14/22 11/16/22 History tablet isosorbide mononitrate 30 mg 30 mg PO QAM #30 tabs 11/15/22 11/16/22 Rx tablet,extended release 24 hr lisinopril 5 mg tablet (Zestril) 5 mg PO QAM #30 tabs 11/15/22 11/16/22 Rx olanzapine 5 mg tablet 5 mg PO HS 11/16/22 11/16/22 History pantoprazole 40 mg tablet,delayed 40 mg PO DAILY 11/16/22 11/16/22 History release ropinirole 1 mg tablet 1 mg PO QPM 11/16/22 11/16/22 History Patient History Medical History Abscess of aorta Acute on chronic HFrEF (heart failure with reduced ejection fraction) Anxiety Carotid stenosis according to records from 2019 CEA was recommended but patient declined. no objective quantification available Carpal tunnel syndrome, left Chronic congestive heart failure with left ventricular diastolic dysfunction Coronary artery disease Diabetes mellitus, type 2 DVT prophylaxis Encounter for pre-operative examination Fracture of left tibial plateau HFrEF (heart failure with reduced ejection fraction) History of left below knee amputation HTN (hypertension) LBBB (left bundle branch block) MRSA bacteremia Osteomyelitis Psychotic disorder Right foot pain Tobacco use disorder Ulnar neuropathy at elbow of left upper extremity Surgical History Status post cholecystectomy Status post coronary artery bypass grafting Status post hysterectomy Status post ORIF of fracture of ankle R, 2016 Family History Other Diabetes Heart disease Social History Smoking Status: Current some day smoker Tobacco Type: Cigarettes packs per day: 1; Cigarettes Per Day: 10; Second Hand Exposure: Yes; Do You Dip or Chew Tobacco: No; Hx Alcohol Use: No Hx Substance Use: No Preferred Language: Turkish Communication Ability: Impaired 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 no posturing or unusual motor movements. Vital Signs (Past 24 Hours): Last Vital Signs Temp 38.5 C H 11/22/22 13:30 Pulse 113 H 11/22/22 13:30 Resp 25 H 11/22/22 13:30 BP 154/72 H 11/22/22 13:30 Pulse Ox 93 11/22/22 13:30 O2 Del Method Nasal Cannula 11/22/22 13:30 O2 Flow Rate 2 11/22/22 13:30 FiO2 30 11/21/22 13:00 Review of Systems Unobtainable due to cognitive status Results & Data (PSY) Laboratory Results 11/22/22 11/22/22 11/22/22 Range/Units 13:14 11:41 10:11 WBC (4.8-10.8) K/ul RBC (4.20-5.40) M/uL Hgb (12.0-16.0) g/dl Hct (37.0-47.0) % MCV (80.0-100.0) fL MCH (25.0-34.0) pg MCHC (32.0-36.0) g/dL RDW Std Deviation (36.4-46.3) fL RDW Coeff of Fabio (11.5-14.5) % Plt Count (130-400) K/uL MPV (9.4-12.4) fL Immature Gran % (Auto) % Neut % (Auto) % Lymph % (Auto) % [place] % (Auto) % Eos % (Auto) % Baso % (Auto) % Neut # (Auto) (1.40-6.50) K/uL Lymph # (Auto) (1.20-3.40) K/uL [place] # (Auto) (0.11-0.59) K/uL Eos # (Auto) (0.00-0.50) K/uL Baso # (Auto) (0.00-0.20) K/uL Immature Gran # (Auto) (0.01-0.20) K/uL Absolute Nucleated RBC (0.00-0.12) K/uL Nucleated RBC % (auto) % Polychromasia Peripher Smr Path Cons VBG pH (7.36-7.41) VBG pCO2 (38-50) mmHg VBG pO2 mmHg VBG HCO3 mmol/L VBG O2 Saturation % VBG Base Excess mEq/L Sodium (136-145) mmol/L Potassium (3.5-5.1) mmol/L Chloride (98-107) mmol/L Carbon Dioxide (21-32) mmol/L Anion Gap (3-11) BUN (6-23) mg/dl Creatinine (0.6-1.2) mg/dl Est Cr Clr Drug Dosing ml/min Est GFR ( Amer) ml/min Est GFR (Non-Af Amer) ml/min BUN/Creatinine Ratio (10-20) Glucose (70-99(Fasting)) mg/dl POC Glucose 187 H (70-99) mg/dl Calcium (8.6-10.3) mg/dl Phosphorus (2.5-4.9) mg/dl Magnesium (1.7-2.4) mg/dl Troponin I High Sens (0-14) pg/ml Urine Color Yellow Urine Appearance Cloudy A (Clear) Urine pH 5.0 (4.5-7.5) Ur Specific [place] 1.018 (1.000-1.030) Urine Protein 2+ H (Negative) Urine Glucose (UA) Negative (Negative) Urine Ketones 1+ H (Negative) Urine Blood 1+ H (Negative) Urine Nitrite Negative (Negative) Urine Bilirubin Negative (Negative) Urine Urobilinogen Negative (Negative) Ur Leukocyte Esterase Trace H (Negative) Urine WBC (Auto) 5-10 H (0-5) /hpf Urine RBC (Auto) 0-4 (0-4) /hpf U Hyaline Cast (Auto) 5-10 H (0-5) /lpf U Epithel Cells (Auto) 20-30 H (0-5) /lpf Urine Bacteria (Auto) Negative (Negative) Urine Yeast Budding w/ Hyphae A (None Prsent) Random Vancomycin (10-20) mcg/ml Lyme IgG (Western Blot) (NEGATIVE) Lyme IgG 18 kDa Band Lyme IgG 23 kDa Band Lyme IgG 28 kDa Band Lyme IgG 30 kDa Band Lyme IgG 39 kDa Band Lyme IgG 41 kDa Band Lyme IgG 45 kDa Band Lyme IgG 58 kDa Band Lyme IgG 66 kDa Band Lyme IgG 93 kDa Band Lyme IgM Ab (WB) (NEGATIVE) Lyme IgM 23 kDa Band Lyme IgM 39 kDa Band Lyme IgM 41 kDa Band 11/22/22 11/22/22 11/22/22 Range/Units 10:11 10:11 09:06 WBC (4.8-10.8) K/ul RBC (4.20-5.40) M/uL Hgb (12.0-16.0) g/dl Hct (37.0-47.0) % MCV (80.0-100.0) fL MCH (25.0-34.0) pg MCHC (32.0-36.0) g/dL RDW Std Deviation (36.4-46.3) fL RDW Coeff of Fabio (11.5-14.5) % Plt Count (130-400) K/uL MPV (9.4-12.4) fL Immature Gran % (Auto) % Neut % (Auto) % Lymph % (Auto) % [place] % (Auto) % Eos % (Auto) % Baso % (Auto) % Neut # (Auto) (1.40-6.50) K/uL Lymph # (Auto) (1.20-3.40) K/uL [place] # (Auto) (0.11-0.59) K/uL Eos # (Auto) (0.00-0.50) K/uL Baso # (Auto) (0.00-0.20) K/uL Immature Gran # (Auto) (0.01-0.20) K/uL Absolute Nucleated RBC (0.00-0.12) K/uL Nucleated RBC % (auto) % Polychromasia Peripher Smr Path Cons VBG pH 7.36 (7.36-7.41) VBG pCO2 30 L (38-50) mmHg VBG pO2 60 mmHg VBG HCO3 17 mmol/L VBG O2 Saturation 91.2 % VBG Base Excess -7.3 mEq/L Sodium (136-145) mmol/L Potassium (3.5-5.1) mmol/L Chloride (98-107) mmol/L Carbon Dioxide (21-32) mmol/L Anion Gap (3-11) BUN (6-23) mg/dl Creatinine (0.6-1.2) mg/dl Est Cr Clr Drug Dosing ml/min Est GFR ( Amer) ml/min Est GFR (Non-Af Amer) ml/min BUN/Creatinine Ratio (10-20) Glucose (70-99(Fasting)) mg/dl POC Glucose (70-99) mg/dl Calcium (8.6-10.3) mg/dl Phosphorus (2.5-4.9) mg/dl Magnesium (1.7-2.4) mg/dl Troponin I High Sens 23.6 H (0-14) pg/ml Urine Color Urine Appearance (Clear) Urine pH (4.5-7.5) Ur Specific [place] (1.000-1.030) Urine Protein (Negative) Urine Glucose (UA) (Negative) Urine Ketones (Negative) Urine Blood (Negative) Urine Nitrite (Negative) Urine Bilirubin (Negative) Urine Urobilinogen (Negative) Ur Leukocyte Esterase (Negative) Urine WBC (Auto) (0-5) /hpf Urine RBC (Auto) (0-4) /hpf U Hyaline Cast (Auto) (0-5) /lpf U Epithel Cells (Auto) (0-5) /lpf Urine Bacteria (Auto) (Negative) Urine Yeast (None Prsent) Random Vancomycin 17.8 (10-20) mcg/ml Lyme IgG (Western Blot) (NEGATIVE) Lyme IgG 18 kDa Band Lyme IgG 23 kDa Band Lyme IgG 28 kDa Band Lyme IgG 30 kDa Band Lyme IgG 39 kDa Band Lyme IgG 41 kDa Band Lyme IgG 45 kDa Band Lyme IgG 58 kDa Band Lyme IgG 66 kDa Band Lyme IgG 93 kDa Band Lyme IgM Ab (WB) (NEGATIVE) Lyme IgM 23 kDa Band Lyme IgM 39 kDa Band Lyme IgM 41 kDa Band 11/22/22 11/22/22 11/22/22 Range/Units 08:40 04:02 03:59 WBC 8.74 (4.8-10.8) K/ul RBC 2.74 L (4.20-5.40) M/uL Hgb 7.9 L (12.0-16.0) g/dl Hct 26.4 L (37.0-47.0) % MCV 96.4 (80.0-100.0) fL MCH 28.8 (25.0-34.0) pg MCHC 29.9 L (32.0-36.0) g/dL RDW Std Deviation 62.1 H (36.4-46.3) fL RDW Coeff of Fabio 17.9 H (11.5-14.5) % Plt Count 166 (130-400) K/uL MPV 12.7 H (9.4-12.4) fL Immature Gran % (Auto) 1.3 % Neut % (Auto) 50.3 % Lymph % (Auto) 17.2 % [place] % (Auto) 27.8 % Eos % (Auto) 3.2 % Baso % (Auto) 0.2 % Neut # (Auto) 4.40 (1.40-6.50) K/uL Lymph # (Auto) 1.50 (1.20-3.40) K/uL [place] # (Auto) 2.43 H (0.11-0.59) K/uL Eos # (Auto) 0.28 (0.00-0.50) K/uL Baso # (Auto) 0.02 (0.00-0.20) K/uL Immature Gran # (Auto) 0.11 (0.01-0.20) K/uL Absolute Nucleated RBC 0.02 (0.00-0.12) K/uL Nucleated RBC % (auto) 0.2 % Polychromasia 1+ Peripher Smr Path Cons VBG pH (7.36-7.41) VBG pCO2 (38-50) mmHg VBG pO2 mmHg VBG HCO3 mmol/L VBG O2 Saturation % VBG Base Excess mEq/L Sodium (136-145) mmol/L Potassium (3.5-5.1) mmol/L Chloride (98-107) mmol/L Carbon Dioxide (21-32) mmol/L Anion Gap (3-11) BUN (6-23) mg/dl Creatinine (0.6-1.2) mg/dl Est Cr Clr Drug Dosing ml/min Est GFR ( Amer) ml/min Est GFR (Non-Af Amer) ml/min BUN/Creatinine Ratio (10-20) Glucose (70-99(Fasting)) mg/dl POC Glucose 135 H 127 H (70-99) mg/dl Calcium (8.6-10.3) mg/dl Phosphorus (2.5-4.9) mg/dl Magnesium (1.7-2.4) mg/dl Troponin I High Sens (0-14) pg/ml Urine Color Urine Appearance (Clear) Urine pH (4.5-7.5) Ur Specific [place] (1.000-1.030) Urine Protein (Negative) Urine Glucose (UA) (Negative) Urine Ketones (Negative) Urine Blood (Negative) Urine Nitrite (Negative) Urine Bilirubin (Negative) Urine Urobilinogen (Negative) Ur Leukocyte Esterase (Negative) Urine WBC (Auto) (0-5) /hpf Urine RBC (Auto) (0-4) /hpf U Hyaline Cast (Auto) (0-5) /lpf U Epithel Cells (Auto) (0-5) /lpf Urine Bacteria (Auto) (Negative) Urine Yeast (None Prsent) Random Vancomycin (10-20) mcg/ml Lyme IgG (Western Blot) (NEGATIVE) Lyme IgG 18 kDa Band Lyme IgG 23 kDa Band Lyme IgG 28 kDa Band Lyme IgG 30 kDa Band Lyme IgG 39 kDa Band Lyme IgG 41 kDa Band Lyme IgG 45 kDa Band Lyme IgG 58 kDa Band Lyme IgG 66 kDa Band Lyme IgG 93 kDa Band Lyme IgM Ab (WB) (NEGATIVE) Lyme IgM 23 kDa Band Lyme IgM 39 kDa Band Lyme IgM 41 kDa Band 11/22/22 11/22/22 11/21/22 Range/Units 03:59 00:40 20:26 WBC (4.8-10.8) K/ul RBC (4.20-5.40) M/uL Hgb (12.0-16.0) g/dl Hct (37.0-47.0) % MCV (80.0-100.0) fL MCH (25.0-34.0) pg MCHC (32.0-36.0) g/dL RDW Std Deviation (36.4-46.3) fL RDW Coeff of Fabio (11.5-14.5) % Plt Count (130-400) K/uL MPV (9.4-12.4) fL Immature Gran % (Auto) % Neut % (Auto) % Lymph % (Auto) % [place] % (Auto) % Eos % (Auto) % Baso % (Auto) % Neut # (Auto) (1.40-6.50) K/uL Lymph # (Auto) (1.20-3.40) K/uL [place] # (Auto) (0.11-0.59) K/uL Eos # (Auto) (0.00-0.50) K/uL Baso # (Auto) (0.00-0.20) K/uL Immature Gran # (Auto) (0.01-0.20) K/uL Absolute Nucleated RBC (0.00-0.12) K/uL Nucleated RBC % (auto) % Polychromasia Peripher Smr Path Cons VBG pH (7.36-7.41) VBG pCO2 (38-50) mmHg VBG pO2 mmHg VBG HCO3 mmol/L VBG O2 Saturation % VBG Base Excess mEq/L Sodium 147 H (136-145) mmol/L Potassium 4.0 (3.5-5.1) mmol/L Chloride 123 H (98-107) mmol/L Carbon Dioxide 17 L (21-32) mmol/L Anion Gap 7 (3-11) BUN 40 H (6-23) mg/dl Creatinine 1.04 D (0.6-1.2) mg/dl Est Cr Clr Drug Dosing 49.8 ml/min Est GFR ( Amer) 65.8 ml/min Est GFR (Non-Af Amer) 56.7 ml/min BUN/Creatinine Ratio 38.5 H (10-20) Glucose 119 H (70-99(Fasting)) mg/dl POC Glucose 111 H 135 H (70-99) mg/dl Calcium 9.2 (8.6-10.3) mg/dl Phosphorus 2.3 L (2.5-4.9) mg/dl Magnesium 2.2 (1.7-2.4) mg/dl Troponin I High Sens (0-14) pg/ml Urine Color Urine Appearance (Clear) Urine pH (4.5-7.5) Ur Specific [place] (1.000-1.030) Urine Protein (Negative) Urine Glucose (UA) (Negative) Urine Ketones (Negative) Urine Blood (Negative) Urine Nitrite (Negative) Urine Bilirubin (Negative) Urine Urobilinogen (Negative) Ur Leukocyte Esterase (Negative) Urine WBC (Auto) (0-5) /hpf Urine RBC (Auto) (0-4) /hpf U Hyaline Cast (Auto) (0-5) /lpf U Epithel Cells (Auto) (0-5) /lpf Urine Bacteria (Auto) (Negative) Urine Yeast (None Prsent) Random Vancomycin (10-20) mcg/ml Lyme IgG (Western Blot) (NEGATIVE) Lyme IgG 18 kDa Band Lyme IgG 23 kDa Band Lyme IgG 28 kDa Band Lyme IgG 30 kDa Band Lyme IgG 39 kDa Band Lyme IgG 41 kDa Band Lyme IgG 45 kDa Band Lyme IgG 58 kDa Band Lyme IgG 66 kDa Band Lyme IgG 93 kDa Band Lyme IgM Ab (WB) (NEGATIVE) Lyme IgM 23 kDa Band Lyme IgM 39 kDa Band Lyme IgM 41 kDa Band 11/21/22 11/16/22 Range/Units 15:52 15:33 WBC (4.8-10.8) K/ul RBC (4.20-5.40) M/uL Hgb (12.0-16.0) g/dl Hct (37.0-47.0) % MCV (80.0-100.0) fL MCH (25.0-34.0) pg MCHC (32.0-36.0) g/dL RDW Std Deviation (36.4-46.3) fL RDW Coeff of Fabio (11.5-14.5) % Plt Count (130-400) K/uL MPV (9.4-12.4) fL Immature Gran % (Auto) % Neut % (Auto) % Lymph % (Auto) % [place] % (Auto) % Eos % (Auto) % Baso % (Auto) % Neut # (Auto) (1.40-6.50) K/uL Lymph # (Auto) (1.20-3.40) K/uL [place] # (Auto) (0.11-0.59) K/uL Eos # (Auto) (0.00-0.50) K/uL Baso # (Auto) (0.00-0.20) K/uL Immature Gran # (Auto) (0.01-0.20) K/uL Absolute Nucleated RBC (0.00-0.12) K/uL Nucleated RBC % (auto) % Polychromasia Peripher Smr Path Cons VBG pH (7.36-7.41) VBG pCO2 (38-50) mmHg VBG pO2 mmHg VBG HCO3 mmol/L VBG O2 Saturation % VBG Base Excess mEq/L Sodium (136-145) mmol/L Potassium (3.5-5.1) mmol/L Chloride (98-107) mmol/L Carbon Dioxide (21-32) mmol/L Anion Gap (3-11) BUN (6-23) mg/dl Creatinine (0.6-1.2) mg/dl Est Cr Clr Drug Dosing ml/min Est GFR ( Amer) ml/min Est GFR (Non-Af Amer) ml/min BUN/Creatinine Ratio (10-20) Glucose (70-99(Fasting)) mg/dl POC Glucose 191 H (70-99) mg/dl Calcium (8.6-10.3) mg/dl Phosphorus (2.5-4.9) mg/dl Magnesium (1.7-2.4) mg/dl Troponin I High Sens (0-14) pg/ml Urine Color Urine Appearance (Clear) Urine pH (4.5-7.5) Ur Specific [place] (1.000-1.030) Urine Protein (Negative) Urine Glucose (UA) (Negative) Urine Ketones (Negative) Urine Blood (Negative) Urine Nitrite (Negative) Urine Bilirubin (Negative) Urine Urobilinogen (Negative) Ur Leukocyte Esterase (Negative) Urine WBC (Auto) (0-5) /hpf Urine RBC (Auto) (0-4) /hpf U Hyaline Cast (Auto) (0-5) /lpf U Epithel Cells (Auto) (0-5) /lpf Urine Bacteria (Auto) (Negative) Urine Yeast (None Prsent) Random Vancomycin (10-20) mcg/ml Lyme IgG (Western Blot) NEGATIVE (NEGATIVE) Lyme IgG 18 kDa Band NON-REACTIVE Lyme IgG 23 kDa Band NON-REACTIVE Lyme IgG 28 kDa Band NON-REACTIVE Lyme IgG 30 kDa Band NON-REACTIVE Lyme IgG 39 kDa Band NON-REACTIVE Lyme IgG 41 kDa Band NON-REACTIVE Lyme IgG 45 kDa Band NON-REACTIVE Lyme IgG 58 kDa Band NON-REACTIVE Lyme IgG 66 kDa Band NON-REACTIVE Lyme IgG 93 kDa Band NON-REACTIVE Lyme IgM Ab (WB) POSITIVE A (NEGATIVE) Lyme IgM 23 kDa Band REACTIVE A Lyme IgM 39 kDa Band NON-REACTIVE Lyme IgM 41 kDa Band REACTIVE A Diagnostic Findings EKG reviewed, no QTc prolongation Medications Administered Aspirin (Aspirin 81 Mg Chew) 81 mg PO DAILY [facility] Stop: 12/21/22 08:59 Last Admin: 11/22/22 10:28 Dose: Not Given Documented By: Admin: 11/21/22 08:44 Dose: 81 mg Documented By: EDWIN Docusate Sodium (Docusate Sodium Syrup 100 Mg/10 Ml Udc) 100 mg NG BID SAMANTHA Stop: 12/20/22 20:59 Last Admin: 11/22/22 10:28 Dose: Not Given Documented By: Admin: 11/21/22 20:37 Dose: Not Given Documented By: Admin: 11/21/22 08:44 Dose: 100 mg Documented By: Admin: 11/20/22 20:42 Dose: 100 mg Documented By: IJEOMA Duloxetine HCl (Duloxetine Hcl 60 Mg Cap) 60 mg GT DAILY SAMANTHA Stop: 12/21/22 11:59 Last Admin: 11/22/22 10:30 Dose: Not Given Documented By: Admin: 11/21/22 12:02 Dose: 60 mg Documented By: EDWIN Duloxetine HCl (Duloxetine Hcl 30 Mg Cap) 30 mg PO DAILY SAMANTHA Stop: 12/21/22 11:59 Last Admin: 11/22/22 10:30 Dose: Not Given Documented By: Admin: 11/21/22 12:02 Dose: 30 mg Documented By: EDWIN Enoxaparin Sodium (Enoxaparin Inj 40 Mg/0.4 Ml Syr) 40 mg SQ HS SAMANTHA Stop: 12/20/22 20:59 Last Admin: 11/21/22 21:00 Dose: 40 mg Documented By: Admin: 11/20/22 20:41 Dose: 40 mg Documented By: IJEOMA Hydralazine HCl (Hydralazine Hcl 20 Mg/Ml Vial) 10 mg IV Q4 PRN PRN Reason: SBP>150 Stop: 12/19/22 08:20 Last Admin: 11/22/22 01:03 Dose: 10 mg Documented By: Admin: 11/20/22 00:25 Dose: 10 mg Documented By: Admin: 11/19/22 16:26 Dose: 10 mg Documented By: Admin: 11/19/22 09:19 Dose: 10 mg Documented By: EDWIN Pantoprazole Sodium 40 mg/ (Syringe) 10 mls @ 5 mls/min IV BID SAMANTHA Stop: 12/19/22 08:59 Last Admin: 11/22/22 08:57 Dose: 5 mls/min Documented By: Admin: 11/21/22 20:33 Dose: 5 mls/min Documented By: Admin: 11/21/22 08:53 Dose: 5 mls/min Documented By: Admin: 11/20/22 20:42 Dose: 5 mls/min Documented By: Admin: 11/20/22 09:00 Dose: 5 mls/min Documented By: Admin: 11/19/22 20:12 Dose: 5 mls/min Documented By: Admin: 11/19/22 08:45 Dose: 5 mls/min Documented By: EDWIN Doxycycline Hyclate 100 mg/ (Dextrose) 100 mls @ 50 mls/hr IV Q12H SAMANTHA Stop: 11/28/22 23:59 Last Infusion: 11/22/22 14:28 Dose: 0 mls/hr Documented By: Admin: 11/22/22 12:27 Dose: 50 mls/hr Documented By: Infusion: 11/22/22 01:00 Dose: 0 mls/hr Documented By: Admin: 11/21/22 23:00 Dose: 50 mls/hr Documented By: Infusion: 11/21/22 14:48 Dose: 0 mls/hr Documented By: Admin: 11/21/22 11:10 Dose: 50 mls/hr Documented By: EDWIN Ceftriaxone Sodium 2,000 mg/ (Dextrose) 50 mls @ 100 mls/hr IV Q24H SAMANTHA Stop: 12/20/22 12:00 Last Infusion: 11/22/22 11:22 Dose: 0 mls/hr Documented By: Admin: 11/22/22 10:43 Dose: 100 mls/hr Documented By: EDWIN Acetaminophen (Ofirmev) 1,000 mg in 100 mls @ 400 mls/hr IV Q8H PRN PRN Reason: Fever Stop: 11/25/22 11:05 Last Infusion: 11/22/22 13:12 Dose: 0 mls/hr Documented By: Admin: 11/22/22 12:28 Dose: 400 mls/hr Documented By: EDWIN Parenteral Electrolytes (Plasma-Lyte A Ph 7.4) 1,000 mls @ 70 mls/hr IV .[id number] SAMANTHA Stop: 12/22/22 11:14 Last Admin: 11/22/22 11:30 Dose: 70 mls/hr Documented By: EDWIN Vancomycin HCl 1,000 mg/ (Dextrose) 270 mls @ 200 mls/hr IV Q24H SAMANTHA Stop: 11/23/22 16:00 Last Infusion: 11/22/22 15:01 Dose: 0 mls/hr Documented By: Admin: 11/22/22 13:19 Dose: 200 mls/hr Documented By: EDWIN Insulin Aspart (Insulin Aspart Per Unit Charge) 0 units SC Q4 [facility] Stop: 12/19/22 11:59 Last Admin: 11/22/22 13:18 Dose: 3 units Documented By: EDWIN Co-signed By: HORTENSIA Admin: 11/22/22 08:45 Dose: Not Given Documented By: Admin: 11/22/22 04:04 Dose: Not Given Documented By: Admin: 11/22/22 00:42 Dose: Not Given Documented By: Admin: 11/21/22 20:37 Dose: Not Given Documented By: Admin: 11/21/22 17:39 Dose: 3 units Documented By: EDWIN Co-signed By: ZARA Admin: 11/21/22 12:21 Dose: 1 units Documented By: EDWIN Co-signed By: ANUSHA Admin: 11/21/22 08:54 Dose: 1 units Documented By: EDWIN Co-signed By: ZARA Admin: 11/21/22 03:18 Dose: 1 units Documented By: IJEOMA Co-signed By: SYLWIA Admin: 11/21/22 01:34 Dose: Not Given Documented By: Admin: 11/20/22 20:38 Dose: Not Given Documented By: Admin: 11/20/22 16:37 Dose: Not Given Documented By: Admin: 11/20/22 12:25 Dose: 6 units Documented By: EDWIN Co-signed By: CHUN Insulin Glargine (Lantus Per Unit Charge) 0 units SC BID [facility]; Protocol Stop: 12/21/22 09:14 Last Admin: 11/22/22 09:18 Dose: 10 units Documented By: EDWIN Co-signed By: [email or web address] Admin: 11/21/22 20:59 Dose: 10 units Documented By: IJEOMA Co-signed By: RIGO Admin: 11/21/22 11:07 Dose: 10 units Documented By: EDWIN Co-signed By: ANUSHA Ketorolac Tromethamine (Ketorolac Tromethamine 15 Mg/Ml Vial) 15 mg IV Q6H PRN PRN Reason: Mod-Sev Pain (Scale 4-10) Stop: 10/11/23 09:32 Last Admin: 11/18/22 09:57 Dose: 15 mg Documented By: [email or web address] Metoprolol Tartrate (Metoprolol Tartrate 25 Mg Tab) 25 mg OG BID [facility] Stop: 12/20/22 20:59 Last Admin: 11/22/22 10:30 Dose: Not Given Documented By: Admin: 11/21/22 08:44 Dose: 25 mg Documented By: Admin: 11/20/22 20:40 Dose: 25 mg Documented By: IJEOMA Metoprolol Tartrate (Metoprolol Tartrate 1 Mg/Ml Vial) 5 mg IV Q6 [facility] Stop: 12/22/22 11:59 Last Admin: 11/22/22 12:28 Dose: 5 mg Documented By: EDWIN Miscellaneous (Icu Electrolyte Replacement Protocol) 1 each N/A BID@ [facility]; Protocol Stop: 11/26/22 17:59 Last Admin: 11/22/22 06:11 Dose: 1 each Documented By: Admin: 11/21/22 18:27 Dose: 1 each Documented By: Admin: 11/21/22 05:56 Dose: 1 each Documented By: Admin: 11/20/22 18:11 Dose: 1 each Documented By: Admin: 11/20/22 05:38 Dose: 1 each Documented By: Admin: 11/19/22 18:40 Dose: 1 each Documented By: EDWIN Multivitamins/Minerals (Multi Vit W/Minerals Liquid 15 Ml Udp) 15 ml NG QAM [facility] Stop: 12/21/22 08:59 Last Admin: 11/22/22 10:29 Dose: Not Given Documented By: Admin: 11/21/22 08:43 Dose: 15 ml Documented By: EDWIN Propofol (Propofol Bolus From Bag) 20 mg IV Q5M PRN PRN Reason: Sedation Stop: 11/23/22 10:36 Last Admin: 11/21/22 05:12 Dose: 20 mg Documented By: IJEOMA Co-signed By: SYLWIA Admin: 11/21/22 02:33 Dose: 20 mg Documented By: IJEOMA Co-signed By: SYLWIA Admin: 11/20/22 20:46 Dose: 20 mg Documented By: IJEOMA Co-signed By: SYLWIA Admin: 11/20/22 10:52 Dose: 20 mg Documented By: EDWIN Co-signed By: CHUN Sennosides (Sennosides 8.8 Mg/5 Ml Udc) 8.8 mg PO QAM SAMANTHA Stop: 12/21/22 08:59 Last Admin: 11/22/22 10:29 Dose: Not Given Documented By: Admin: 11/21/22 08:43 Dose: 8.8 mg Documented By: EDWIN Topiramate (Topiramate 50 Mg Tab) 50 mg PO BID [facility] Stop: 12/21/22 10:59 Last Admin: 11/22/22 10:29 Dose: Not Given Documented By: Admin: 11/21/22 20:37 Dose: Not Given Documented By: Admin: 11/21/22 12:02 Dose: 50 mg Documented By: EDWIN Coding Level of Care Code 65993 [facility] Intl Hosp Care Lvl 2 Diagnoses Encephalopathy G93.40 Psychotic disorder F29
--- NOTE | 2022-11-22 15:46 | Electroencephalogram ---
EEG Procedure Note Date of Service November 22, 2022 Start / End Times Start Time: 12:48 End Time: 13:[address] Rolando Collado History A 62-year-old female with encephalopathy. EEG performed for evaluation of epileptiform activity. Home Medication List Medication Instructions Recorded Confirmed Type clopidogrel 75 mg tablet 75 mg PO DAILY 03/16/21 11/16/22 History duloxetine 60 mg capsule,delayed 90 mg PO QAM 03/16/21 11/16/22 History release topiramate 50 mg tablet 50 mg PO BID 03/16/21 11/16/22 History aspirin 81 mg tablet,delayed 81 mg PO DAILY 05/14/21 11/16/22 History release insulin aspart U-100 100 unit/mL 0 unit subcut TID 05/14/21 11/16/22 History (3 mL) subcutaneous pen (Novolog FlexPen U-100 Insulin aspart) nitroglycerin 0.4 mg sublingual 0.4 mg sublingual .PRN/UD PRN 05/14/21 11/16/22 History tablet Chest Pain acetaminophen 500 mg tablet 500 mg PO Q6H PRN Pain 08/23/21 11/16/22 History (Tylenol Extra Strength) furosemide 20 mg tablet (Lasix) 60 mg PO DAILY 08/23/21 11/16/22 History cetirizine 10 mg tablet (Zyrtec) 10 mg PO DAILY 08/02/22 11/16/22 History melatonin 5 mg tablet 5 mg PO HS 08/02/22 11/16/22 History atorvastatin 80 mg tablet 80 mg PO DAILY 08/04/22 11/16/22 History gabapentin 300 mg capsule 300 mg PO BID #60 caps 08/26/22 11/16/22 Rx insulin glargine 100 unit/mL (3 35 unit subcut QAM 10/30/22 11/16/22 History mL) subcutaneous pen (Basaglar KwikPen U-100 Insulin) metoprolol succinate 50 mg 50 mg PO QPM 10/30/22 11/16/22 History tablet,extended release 24 hr metoprolol succinate 50 mg 100 mg PO QAM 10/30/22 11/16/22 History tablet,extended release 24 hr cefdinir 300 mg capsule 300 mg PO BID #18 caps 11/08/22 11/16/22 Rx ondansetron 4 mg disintegrating 4 mg PO Q8H PRN N/V 11/14/22 11/16/22 History tablet isosorbide mononitrate 30 mg 30 mg PO QAM #30 tabs 11/15/22 11/16/22 Rx tablet,extended release 24 hr lisinopril 5 mg tablet (Zestril) 5 mg PO QAM #30 tabs 11/15/22 11/16/22 Rx olanzapine 5 mg tablet 5 mg PO HS 11/16/22 11/16/22 History pantoprazole 40 mg tablet,delayed 40 mg PO DAILY 11/16/22 11/16/22 History release ropinirole 1 mg tablet 1 mg PO QPM 11/16/22 11/16/22 History Inpatient Medication List Aspirin (Aspirin 81 Mg Chew) 81 mg PO DAILY SAMANTHA Stop: 12/21/22 08:59 Last Admin: 11/22/22 10:28 Dose: Not Given Documented By: Admin: 11/21/22 08:44 Dose: 81 mg Documented By: EDWIN Docusate Sodium (Docusate Sodium Syrup 100 Mg/10 Ml Udc) 100 mg NG BID SAMANTHA Stop: 12/20/22 20:59 Last Admin: 11/22/22 10:28 Dose: Not Given Documented By: Admin: 11/21/22 20:37 Dose: Not Given Documented By: Admin: 11/21/22 08:44 Dose: 100 mg Documented By: Admin: 11/20/22 20:42 Dose: 100 mg Documented By: IJEOMA Duloxetine HCl (Duloxetine Hcl 60 Mg Cap) 60 mg GT DAILY SAMANTHA Stop: 12/21/22 11:59 Last Admin: 11/22/22 10:30 Dose: Not Given Documented By: Admin: 11/21/22 12:02 Dose: 60 mg Documented By: EDWIN Duloxetine HCl (Duloxetine Hcl 30 Mg Cap) 30 mg PO DAILY SAMANTHA Stop: 12/21/22 11:59 Last Admin: 11/22/22 10:30 Dose: Not Given Documented By: Admin: 11/21/22 12:02 Dose: 30 mg Documented By: EDWIN Enoxaparin Sodium (Enoxaparin Inj 40 Mg/0.4 Ml Syr) 40 mg SQ HS SAMANTHA Stop: 12/20/22 20:59 Last Admin: 11/21/22 21:00 Dose: 40 mg Documented By: Admin: 11/20/22 20:41 Dose: 40 mg Documented By: IJEOMA Hydralazine HCl (Hydralazine Hcl 20 Mg/Ml Vial) 10 mg IV Q4 PRN PRN Reason: SBP>150 Stop: 12/19/22 08:20 Last Admin: 11/22/22 01:03 Dose: 10 mg Documented By: Admin: 11/20/22 00:25 Dose: 10 mg Documented By: Admin: 11/19/22 16:26 Dose: 10 mg Documented By: Admin: 11/19/22 09:19 Dose: 10 mg Documented By: EDWIN Pantoprazole Sodium 40 mg/ (Syringe) 10 mls @ 5 mls/min IV BID SAMANTHA Stop: 12/19/22 08:59 Last Admin: 11/22/22 08:57 Dose: 5 mls/min Documented By: Admin: 11/21/22 20:33 Dose: 5 mls/min Documented By: Admin: 11/21/22 08:53 Dose: 5 mls/min Documented By: Admin: 11/20/22 20:42 Dose: 5 mls/min Documented By: Admin: 11/20/22 09:00 Dose: 5 mls/min Documented By: Admin: 11/19/22 20:12 Dose: 5 mls/min Documented By: Admin: 11/19/22 08:45 Dose: 5 mls/min Documented By: EDWIN Doxycycline Hyclate 100 mg/ (Dextrose) 100 mls @ 50 mls/hr IV Q12H SAMANTHA Stop: 11/28/22 23:59 Last Infusion: 11/22/22 14:28 Dose: 0 mls/hr Documented By: Admin: 11/22/22 12:27 Dose: 50 mls/hr Documented By: Infusion: 11/22/22 01:00 Dose: 0 mls/hr Documented By: Admin: 11/21/22 23:00 Dose: 50 mls/hr Documented By: Infusion: 11/21/22 14:48 Dose: 0 mls/hr Documented By: Admin: 11/21/22 11:10 Dose: 50 mls/hr Documented By: EDWIN Ceftriaxone Sodium 2,000 mg/ (Dextrose) 50 mls @ 100 mls/hr IV Q24H [facility] Stop: 12/20/22 12:00 Last Infusion: 11/22/22 11:22 Dose: 0 mls/hr Documented By: Admin: 11/22/22 10:43 Dose: 100 mls/hr Documented By: EDWIN Acetaminophen (Ofirmev) 1,000 mg in 100 mls @ 400 mls/hr IV Q8H PRN PRN Reason: Fever Stop: 11/25/22 11:05 Last Infusion: 11/22/22 13:12 Dose: 0 mls/hr Documented By: Admin: 11/22/22 12:28 Dose: 400 mls/hr Documented By: EDWIN Parenteral Electrolytes (Plasma-Lyte A Ph 7.4) 1,000 mls @ 70 mls/hr IV .[id number] [facility] Stop: 12/22/22 11:14 Last Admin: 11/22/22 11:30 Dose: 70 mls/hr Documented By: EDWIN Vancomycin HCl 1,000 mg/ (Dextrose) 270 mls @ 200 mls/hr IV Q24H [facility] Stop: 11/23/22 16:00 Last Infusion: 11/22/22 15:01 Dose: 0 mls/hr Documented By: Admin: 11/22/22 13:19 Dose: 200 mls/hr Documented By: EDWIN Insulin Aspart (Insulin Aspart Per Unit Charge) 0 units SC Q4 [facility] Stop: 12/19/22 11:59 Last Admin: 11/22/22 13:18 Dose: 3 units Documented By: EDWIN Co-signed By: HORTENSIA Admin: 11/22/22 08:45 Dose: Not Given Documented By: Admin: 11/22/22 04:04 Dose: Not Given Documented By: Admin: 11/22/22 00:42 Dose: Not Given Documented By: Admin: 11/21/22 20:37 Dose: Not Given Documented By: Admin: 11/21/22 17:39 Dose: 3 units Documented By: EDWIN Co-signed By: ZARA Admin: 11/21/22 12:21 Dose: 1 units Documented By: EDWIN Co-signed By: ANUSHA Admin: 11/21/22 08:54 Dose: 1 units Documented By: EDWIN Co-signed By: ZARA Admin: 11/21/22 03:18 Dose: 1 units Documented By: IJEOMA Co-signed By: SYLWIA Admin: 11/21/22 01:34 Dose: Not Given Documented By: Admin: 11/20/22 20:38 Dose: Not Given Documented By: Admin: 11/20/22 16:37 Dose: Not Given Documented By: Admin: 11/20/22 12:25 Dose: 6 units Documented By: EDWIN Co-signed By: CHUN Insulin Glargine (Lantus Per Unit Charge) 0 units SC BID [facility]; Protocol Stop: 12/21/22 09:14 Last Admin: 11/22/22 09:18 Dose: 10 units Documented By: EDWIN Co-signed By: [email or web address] Admin: 11/21/22 20:59 Dose: 10 units Documented By: IJEOMA Co-signed By: RIGO Admin: 11/21/22 11:07 Dose: 10 units Documented By: EDWIN Co-signed By: ANUSHA Ketorolac Tromethamine (Ketorolac Tromethamine 15 Mg/Ml Vial) 15 mg IV Q6H PRN PRN Reason: Mod-Sev Pain (Scale 4-10) Stop: 11/23/22 09:32 Last Admin: 11/18/22 09:57 Dose: 15 mg Documented By: [id number] Metoprolol Tartrate (Metoprolol Tartrate 25 Mg Tab) 25 mg OG BID [facility] Stop: 12/20/22 20:59 Last Admin: 11/22/22 10:30 Dose: Not Given Documented By: Admin: 11/21/22 08:44 Dose: 25 mg Documented By: Admin: 11/20/22 20:40 Dose: 25 mg Documented By: IJEOMA Metoprolol Tartrate (Metoprolol Tartrate 1 Mg/Ml Vial) 5 mg IV Q6 [facility] Stop: 12/22/22 11:59 Last Admin: 11/22/22 12:28 Dose: 5 mg Documented By: EDWIN Miscellaneous (Icu Electrolyte Replacement Protocol) 1 each N/A BID@,18 [facility]; Protocol Stop: 11/26/22 17:59 Last Admin: 11/22/22 06:11 Dose: 1 each Documented By: Admin: 11/21/22 18:27 Dose: 1 each Documented By: Admin: 11/21/22 05:56 Dose: 1 each Documented By: Admin: 11/20/22 18:11 Dose: 1 each Documented By: Admin: 11/20/22 05:38 Dose: 1 each Documented By: Admin: 11/19/22 18:40 Dose: 1 each Documented By: EDWIN Multivitamins/Minerals (Multi Vit W/Minerals Liquid 15 Ml Udp) 15 ml NG QAM [facility]ANTHA Stop: 12/21/22 08:59 Last Admin: 11/22/22 10:29 Dose: Not Given Documented By: Admin: 11/21/22 08:43 Dose: 15 ml Documented By: EDWIN Sennosides (Sennosides 8.8 Mg/5 Ml Udc) 8.8 mg PO QAM SAMANTHA Stop: 12/21/22 08:59 Last Admin: 11/22/22 10:29 Dose: Not Given Documented By: Admin: 11/21/22 08:43 Dose: 8.8 mg Documented By: EDWIN Topiramate (Topiramate 50 Mg Tab) 50 mg PO BID SAMANTHA Stop: 12/21/22 10:59 Last Admin: 11/22/22 10:29 Dose: Not Given Documented By: Admin: 11/21/22 20:37 Dose: Not Given Documented By: Admin: 11/21/22 12:02 Dose: 50 mg Documented By: EDWIN Discontinued Medications Albuterol (Albut/Ipratrop 3mg/0.5mg Neb 3 Ml Vial) 3 ml INH NOW STA Stop: 11/16/22 15:45 Last Admin: 11/16/22 15:53 Dose: 3 ml Documented By: GERALDO Aspirin (Aspirin 81 Mg Ectab) 81 mg PO DAILY SAMANTHA Stop: 12/17/22 08:59 Last Admin: 11/20/22 08:44 Dose: Not Given Documented By: Admin: 11/19/22 13:14 Dose: Not Given Documented By: Admin: 11/18/22 09:07 Dose: Not Given Documented By: [id number] Admin: 11/17/22 09:24 Dose: Not Given Documented By: GPF Cetirizine HCl (Cetirizine Hcl 10 Mg Tablet) 10 mg PO DAILY SAMANTHA Stop: 12/17/22 08:59 Last Admin: 11/18/22 09:07 Dose: Not Given Documented By: [id number] Admin: 11/17/22 09:25 Dose: Not Given Documented By: GPF Clopidogrel Bisulfate (Clopidogrel Bisulfate 75 Mg Tab) 75 mg PO DAILY SAMANTHA Stop: 12/17/22 08:59 Last Admin: 11/18/22 09:07 Dose: Not Given Documented By: [id number] Admin: 11/17/22 09:25 Dose: Not Given Documented By: GPF Fentanyl Citrate (Fentanyl Citrate 2,500 Mcg/250 Ml Bag) Confirm Administered Dose 2,500 mcg IV .STK-MED ONE Stop: 11/20/22 09:34 Last Admin: 11/20/22 10:08 Dose: Not Given Documented By: NIKK Fentanyl Citrate (Fentanyl Bolus From Bag) 50 mcg IV Q60M PRN PRN Reason: Pain or Agitation Stop: 12/04/22 10:36 Last Admin: 11/21/22 05:12 Dose: 50 mcg Documented By: IJEOMA Co-signed By: SYLWIA Admin: 11/21/22 02:34 Dose: 50 mcg Documented By: IJEOMA Co-signed By: TP Admin: 11/20/22 20:45 Dose: 50 mcg Documented By: IJEOMA Co-signed By: TP Admin: 11/20/22 10:00 Dose: 50 mcg Documented By: EDWIN Co-signed By: AM Furosemide (Furosemide 40 Mg/4 Ml Vial) 40 mg IV ONE ONE Stop: 11/17/22 00:27 Last Admin: 11/17/22 01:34 Dose: 40 mg Documented By: ANA Furosemide (Furosemide Inj 20 Mg/2 Ml Vial) 20 mg IV ONE ONE Stop: 11/18/22 20:00 Last Admin: 11/18/22 21:05 Dose: 20 mg Documented By: FABIANO Furosemide (Furosemide 40 Mg/4 Ml Vial) 40 mg IV ONE ONE Stop: 11/19/22 02:31 Last Admin: 11/19/22 03:07 Dose: 40 mg Documented By: IJEOMA Furosemide (Furosemide 40 Mg/4 Ml Vial) 40 mg IV ONE ONE Stop: 11/19/22 12:56 Last Admin: 11/19/22 13:14 Dose: 40 mg Documented By: HLK Gadobutrol (Gadobutrol 30ml Vial) 6.4 ml IV ONCE ONE Stop: 11/20/22 13:14 Last Admin: 11/20/22 13:13 Dose: 6.4 ml Documented By: CHARBEL Haloperidol Lactate (Haloperidol Lactate 5 Mg/Ml 1 Ml Vial) 2.5 mg IV NOW STA Stop: 11/19/22 08:13 Last Admin: 11/19/22 08:39 Dose: Not Given Documented By: EDWIN Haloperidol Lactate (Haloperidol Lactate 5 Mg/Ml 1 Ml Vial) 5 mg IV NOW STA Stop: 11/19/22 08:13 Last Admin: 11/19/22 08:33 Dose: 5 mg Documented By: EDWIN Haloperidol Lactate (Haloperidol Lactate 5 Mg/Ml 1 Ml Vial) Confirm Administered Dose 5 mg .ROUTE .STK-MED ONE Stop: 11/19/22 19:51 Last Admin: 11/19/22 20:43 Dose: Not Given Documented By: IJEOMA Haloperidol Lactate (Haloperidol Lactate 5 Mg/Ml 1 Ml Vial) 5 mg IM NOW STA Stop: 11/19/22 20:10 Last Admin: 11/19/22 20:43 Dose: 5 mg Documented By: IJEOMA Heparin Sodium (Porcine) (Heparin Sod 5,000 Unit/0.5 Ml Vial) 5,000 units SQ Q8H [facility]ANTHA Stop: 12/17/22 00:00 Last Admin: 11/18/22 16:32 Dose: 5,000 units Documented By: Admin: 11/18/22 09:09 Dose: 5,000 units Documented By: [id number] Admin: 11/18/22 00:11 Dose: 5,000 units Documented By: Admin: 11/17/22 17:24 Dose: 5,000 units Documented By: Admin: 11/17/22 09:16 Dose: 5,000 units Documented By: Admin: 11/17/22 01:02 Dose: 5,000 units Documented By: JOMAR Cefepime HCl (Maxipime) 2,000 mg in 20 mls @ 5 mls/min IV NOW STA; Protocol Stop: 11/16/22 16:51 Last Admin: 11/16/22 17:22 Dose: 5 mls/min Documented By: RON Sodium Chloride (Nss) 250 mls @ 999 mls/hr IV .Q16M ONE Stop: 11/16/22 17:03 Last Infusion: 11/17/22 02:40 Dose: 0 mls/hr Documented By: Admin: 11/16/22 17:22 Dose: 999 mls/hr Documented By: DMJennifer Albumin Human (Albumin 25%) 25 gm in 100 mls @ 50 mls/hr IV ONE ONE Stop: 11/16/22 22:34 Last Infusion: 11/17/22 02:40 Dose: 0 mls/hr Documented By: Admin: 11/17/22 00:17 Dose: 50 mls/hr Documented By: KRT Acetaminophen (Ofirmev) 1,000 mg in 100 mls @ 400 mls/hr IV NOW STA Stop: 11/16/22 21:43 Last Infusion: 11/17/22 00:31 Dose: 0 mls/hr Documented By: Admin: 11/16/22 23:46 Dose: 400 mls/hr Documented By: KRT Albumin Human (Albumin 25%) 25 gm in 100 mls @ 50 mls/hr IV Q8H SAMANTHA Stop: 11/20/22 05:59 Last Infusion: 11/19/22 08:09 Dose: 0 mls/hr Documented By: Admin: 11/19/22 05:58 Dose: 50 mls/hr Documented By: Infusion: 11/19/22 00:32 Dose: 0 mls/hr Documented By: Admin: 11/18/22 22:32 Dose: 50 mls/hr Documented By: Infusion: 11/18/22 14:53 Dose: 0 mls/hr Documented By: [id number] Admin: 11/18/22 12:50 Dose: 50 mls/hr Documented By: [id number] Infusion: 11/18/22 08:03 Dose: 0 mls/hr Documented By: Admin: 11/18/22 06:02 Dose: 50 mls/hr Documented By: Infusion: 11/18/22 00:18 Dose: 0 mls/hr Documented By: Admin: 11/17/22 22:18 Dose: 50 mls/hr Documented By: Infusion: 11/17/22 16:23 Dose: 0 mls/hr Documented By: Admin: 11/17/22 14:33 Dose: 50 mls/hr Documented By: Infusion: 11/17/22 07:55 Dose: 0 mls/hr Documented By: Admin: 11/17/22 05:19 Dose: 50 mls/hr Documented By: KRT Magnesium Sulfate/Dextrose (Magnesium Sulfate / D5w) 1 gm in 100 mls @ 50 mls /hr IV ONE ONE Stop: 11/17/22 07:44 Last Infusion: 11/17/22 07:55 Dose: 0 mls/hr Documented By: Admin: 11/17/22 06:06 Dose: 50 mls/hr Documented By: JOMAR Vancomycin HCl 1,250 mg/ (Sodium Chloride) 525 mls @ 200 mls/hr IV NOW ONE Stop: 11/17/22 20:02 Last Admin: 11/17/22 18:23 Dose: 200 mls/hr Documented By: JACINDA Cefepime HCl 2,000 mg/ Syringe 20 mls @ 5 mls/min IV Q12H [facility]AN[facility]A Stop: 11/22/22 23:59 Last Admin: 11/22/22 06:12 Dose: 5 mls/min Documented By: Admin: 11/21/22 17:40 Dose: 5 mls/min Documented By: Admin: 11/21/22 05:57 Dose: 5 mls/min Documented By: Admin: 11/20/22 17:41 Dose: 5 mls/min Documented By: Admin: 11/20/22 05:29 Dose: 5 mls/min Documented By: Admin: 11/19/22 20:12 Dose: 5 mls/min Documented By: Admin: 11/19/22 06:18 Dose: 5 mls/min Documented By: Admin: 11/18/22 17:31 Dose: 5 mls/min Documented By: Admin: 11/18/22 06:01 Dose: 5 mls/min Documented By: Admin: 11/17/22 18:24 Dose: 5 mls/min Documented By: JACINDA Metronidazole (Flagyl) 500 mg in 100 mls @ 100 mls/hr IV Q8H [facility]ANTHA Stop: 11/19/22 17:59 Last Infusion: 11/19/22 11:02 Dose: 0 mls/hr Documented By: Admin: 11/19/22 09:29 Dose: 100 mls/hr Documented By: Infusion: 11/19/22 04:28 Dose: 0 mls/hr Documented By: Admin: 11/19/22 03:10 Dose: 100 mls/hr Documented By: Infusion: 11/18/22 18:31 Dose: 0 mls/hr Documented By: Admin: 11/18/22 17:31 Dose: 100 mls/hr Documented By: Infusion: 11/18/22 10:18 Dose: 0 mls/hr Documented By: [id number] Admin: 11/18/22 09:09 Dose: 100 mls/hr Documented By: [id number] Infusion: 11/18/22 03:03 Dose: 0 mls/hr Documented By: Admin: 11/18/22 02:03 Dose: 100 mls/hr Documented By: Infusion: 11/17/22 19:30 Dose: 0 mls/hr Documented By: Admin: 11/17/22 18:24 Dose: 100 mls/hr Documented By: JACINDA Vancomycin HCl 1,250 mg/ (Sodium Chloride) 275 mls @ 200 mls/hr IV Q24H [facility]A Stop: 11/20/22 09:59 Last Admin: 11/19/22 10:12 Dose: Not Given Documented By: Infusion: 11/18/22 11:48 Dose: 0 mls/hr Documented By: [id number] Admin: 11/18/22 10:03 Dose: 200 mls/hr Documented By: [id number] Doxycycline Hyclate 100 mg/ (Dextrose) 100 mls @ 50 mls/hr IV Q12H [facility]ANTHA Stop: 11/27/22 19:14 Last Infusion: 11/18/22 21:28 Dose: 0 mls/hr Documented By: Admin: 11/18/22 19:28 Dose: 50 mls/hr Documented By: Infusion: 11/18/22 10:18 Dose: 0 mls/hr Documented By: [id number] Admin: 11/18/22 08:12 Dose: 50 mls/hr Documented By: Infusion: 11/17/22 21:59 Dose: 0 mls/hr Documented By: Admin: 11/17/22 19:49 Dose: 50 mls/hr Documented By: FABIANO Acetaminophen (Ofirmev) 1,000 mg in 100 mls @ 400 mls/hr IV NOW STA Stop: 11/17/22 19:38 Last Infusion: 11/17/22 20:30 Dose: 0 mls/hr Documented By: Admin: 11/17/22 19:48 Dose: 400 mls/hr Documented By: FABIANO Potassium Phosphate 15 mmol/ (Sodium Chloride) 255 mls @ 88 mls/hr IV ONE ONE Stop: 11/18/22 12:08 Last Infusion: 11/18/22 13:23 Dose: 0 mls/hr Documented By: [id number] Admin: 11/18/22 10:03 Dose: 88 mls/hr Documented By: [id number] Acetaminophen (Ofirmev) 1,000 mg in 100 mls @ 400 mls/hr IV Q8H PRN PRN Reason: Mild Pain (Scale 1, 2, 3) Stop: 11/21/22 09:32 Last Infusion: 11/21/22 11:22 Dose: 0 mls/hr Documented By: Admin: 11/21/22 08:53 Dose: 400 mls/hr Documented By: Infusion: 11/20/22 11:07 Dose: 0 mls/hr Documented By: Admin: 11/20/22 10:47 Dose: 400 mls/hr Documented By: Infusion: 11/20/22 05:40 Dose: 0 mls/hr Documented By: Admin: 11/20/22 05:24 Dose: 400 mls/hr Documented By: Infusion: 11/19/22 12:55 Dose: 0 mls/hr Documented By: Admin: 11/19/22 12:25 Dose: 420 mls/hr Documented By: Infusion: 11/18/22 20:32 Dose: 0 mls/hr Documented By: Admin: 11/18/22 20:17 Dose: 400 mls/hr Documented By: Infusion: 11/18/22 12:14 Dose: 0 mls/hr Documented By: [id number] Admin: 11/18/22 11:50 Dose: 400 mls/hr Documented By: [id number] Potassium Chloride (K Jerry / Wtr) 10 meq in 100 mls @ 100 mls/hr IV Q1H [facility]ANTHA Stop: 11/19/22 00:14 Last Infusion: 11/19/22 04:28 Dose: 0 mls/hr Documented By: Admin: 11/19/22 03:11 Dose: 100 mls/hr Documented By: Infusion: 11/19/22 01:34 Dose: 100 mls/hr Documented By: Admin: 11/19/22 00:34 Dose: 100 mls/hr Documented By: Infusion: 11/19/22 00:29 Dose: 0 mls/hr Documented By: Admin: 11/18/22 23:29 Dose: 100 mls/hr Documented By: Infusion: 11/18/22 22:35 Dose: 100 mls/hr Documented By: Admin: 11/18/22 21:35 Dose: 100 mls/hr Documented By: FABIANO Methylprednisolone 20 mg/ (Syringe) 0.32 mls @ 1.5 mls/min IV NOW ONE Stop: 11/19/22 00:16 Last Admin: 11/19/22 01:42 Dose: Not Given Documented By: IJEOMA Dexmedetomidine/Sodium Chloride (Precedex) 200 mcg in 50 mls @ 0 mls/hr IV .Q0M [facility]; Protocol Stop: 11/23/22 01:29 Last Titration: 11/20/22 09:48 Dose: 0 mcg/kg/hr, 0 mls/hr Documented By: Titration: 11/20/22 09:00 Dose: 0 mcg/kg/hr, 0 mls/hr Documented By: Admin: 11/20/22 08:41 Dose: Not Given Documented By: Titration: 11/20/22 08:41 Dose: 0.4 mcg/kg/hr, 6.3 mls/hr Documented By: Titration: 11/20/22 08:30 Dose: 0.5 mcg/kg/hr, 7.8 mls/hr Documented By: Titration: 11/20/22 08:09 Dose: 0.6 mcg/kg/hr, 9.4 mls/hr Documented By: Titration: 11/20/22 07:13 Dose: 0.7 mcg/kg/hr, 10.9 mls/hr Documented By: IJEMOA Co-signed By: HLK Titration: 11/20/22 06:40 Dose: 0.8 mcg/kg/hr, 12.5 mls/hr Documented By: Titration: 11/20/22 06:25 Dose: 0.9 mcg/kg/hr, 14.1 mls/hr Documented By: Titration: 11/20/22 06:10 Dose: 1 mcg/kg/hr, 15.6 mls/hr Documented By: Admin: 11/20/22 05:54 Dose: 1.1 mcg/kg/hr, 17.2 mls/hr Documented By: SUSAN Co-signed By: IJEOMA Titration: 11/20/22 05:54 Dose: 1.2 mcg/kg/hr, 18.8 mls/hr Documented By: SUSAN Co-signed By: IJEOMA Admin: 11/20/22 05:40 Dose: Not Given Documented By: Admin: 11/20/22 05:36 Dose: Not Given Documented By: Admin: 11/20/22 05:35 Dose: Not Given Documented By: Titration: 11/20/22 05:25 Dose: 1.2 mcg/kg/hr, 18.8 mls/hr Documented By: Titration: 11/20/22 05:09 Dose: 1.3 mcg/kg/hr, 20.3 mls/hr Documented By: Titration: 11/20/22 04:54 Dose: 1.4 mcg/kg/hr, 21.9 mls/hr Documented By: Admin: 11/20/22 03:42 Dose: 1.5 mcg/kg/hr, 23.5 mls/hr Documented By: SUSAN Co-signed By: OLGA Titration: 11/20/22 03:40 Dose: 1.5 mcg/kg/hr, 23.5 mls/hr Documented By: SUSAN Co-signed By: OLGA Admin: 11/20/22 01:32 Dose: 1.5 mcg/kg/hr, 23.5 mls/hr Documented By: IJEOMA Co-signed By: SUSAN Titration: 11/20/22 01:32 Dose: 1.5 mcg/kg/hr, 23.5 mls/hr Documented By: IJEOMA Co-signed By: SUSAN Admin: 11/19/22 23:38 Dose: 1.5 mcg/kg/hr, 23.5 mls/hr Documented By: SUSAN Co-signed By: IJEOMA Titration: 11/19/22 23:38 Dose: 1.5 mcg/kg/hr, 23.5 mls/hr Documented By: SUSAN Co-signed By: IJEOMA Admin: 11/19/22 22:52 Dose: Not Given Documented By: Titration: 11/19/22 22:50 Dose: 1.4 mcg/kg/hr, 21.9 mls/hr Documented By: SUSAN Co-signed By: OLGA Admin: 11/19/22 22:50 Dose: 1.5 mcg/kg/hr, 23.5 mls/hr Documented By: SUSAN Co-signed By: OLGA Titration: 11/19/22 21:00 Dose: 1.4 mcg/kg/hr, 21.9 mls/hr Documented By: Admin: 11/19/22 20:45 Dose: 1.2 mcg/kg/hr, 18.8 mls/hr Documented By: IJEOMA Co-signed By: SUSAN Titration: 11/19/22 20:45 Dose: 1.3 mcg/kg/hr, 20.3 mls/hr Documented By: IJEOMA Co-signed By: SUSAN Titration: 11/19/22 20:30 Dose: 1.2 mcg/kg/hr, 18.8 mls/hr Documented By: Titration: 11/19/22 20:15 Dose: 1.1 mcg/kg/hr, 17.2 mls/hr Documented By: Titration: 11/19/22 20:00 Dose: 1 mcg/kg/hr, 15.6 mls/hr Documented By: Titration: 11/19/22 19:45 Dose: 0.9 mcg/kg/hr, 14.1 mls/hr Documented By: Titration: 11/19/22 19:30 Dose: 0.8 mcg/kg/hr, 12.5 mls/hr Documented By: Admin: 11/19/22 18:35 Dose: Not Given Documented By: Titration: 11/19/22 17:27 Dose: 0.7 mcg/kg/hr, 10.9 mls/hr Documented By: Admin: 11/19/22 17:25 Dose: 0.8 mcg/kg/hr, 12.5 mls/hr Documented By: EDWIN Co-signed By: ANUSHA(2) Titration: 11/19/22 17:08 Dose: 0.8 mcg/kg/hr, 12.5 mls/hr Documented By: EDWIN Co-signed By: ANUSHA(2) Admin: 11/19/22 16:19 Dose: Not Given Documented By: Titration: 11/19/22 16:18 Dose: 0.8 mcg/kg/hr, 12.5 mls/hr Documented By: Admin: 11/19/22 16:18 Dose: Not Given Documented By: Admin: 11/19/22 16:18 Dose: Not Given Documented By: Titration: 11/19/22 15:30 Dose: 0.9 mcg/kg/hr, 14.1 mls/hr Documented By: Titration: 11/19/22 15:16 Dose: 1 mcg/kg/hr, 15.6 mls/hr Documented By: Admin: 11/19/22 13:57 Dose: 1.2 mcg/kg/hr, 18.8 mls/hr Documented By: HLK Co-signed By: ISABELL(2) Titration: 11/19/22 13:40 Dose: 0 mcg/kg/hr, 0 mls/hr Documented By: Admin: 11/19/22 11:00 Dose: 1.2 mcg/kg/hr, 18.8 mls/hr Documented By: HLK Co-signed By: LUKE Titration: 11/19/22 10:55 Dose: 1.2 mcg/kg/hr, 18.8 mls/hr Documented By: HLK Co-signed By: LUKE Admin: 11/19/22 08:15 Dose: 1.2 mcg/kg/hr, 18.8 mls/hr Documented By: HLK Co-signed By: ANUSHA(2) Titration: 11/19/22 08:10 Dose: 0 mcg/kg/hr, 0 mls/hr Documented By: Titration: 11/19/22 07:15 Dose: 1.2 mcg/kg/hr, 18.8 mls/hr Documented By: ELS Co-signed By: HLK Titration: 11/19/22 06:37 Dose: 1.2 mcg/kg/hr, 18.8 mls/hr Documented By: Titration: 11/19/22 06:15 Dose: 1.1 mcg/kg/hr, 17.2 mls/hr Documented By: Titration: 11/19/22 05:30 Dose: 1 mcg/kg/hr, 15.6 mls/hr Documented By: Admin: 11/19/22 05:14 Dose: 0.9 mcg/kg/hr, 14.1 mls/hr Documented By: IJEOMA Co-signed By: TP Titration: 11/19/22 05:14 Dose: 0.9 mcg/kg/hr, 14.1 mls/hr Documented By: IJEOMA Co-signed By: TP Titration: 11/19/22 04:51 Dose: 0.9 mcg/kg/hr, 14.1 mls/hr Documented By: Titration: 11/19/22 04:39 Dose: 0.8 mcg/kg/hr, 12.5 mls/hr Documented By: Titration: 11/19/22 03:48 Dose: 0.7 mcg/kg/hr, 10.9 mls/hr Documented By: Titration: 11/19/22 03:07 Dose: 0.6 mcg/kg/hr, 9.4 mls/hr Documented By: Titration: 11/19/22 02:08 Dose: 0.5 mcg/kg/hr, 7.8 mls/hr Documented By: Admin: 11/19/22 01:44 Dose: 0.4 mcg/kg/hr, 6.3 mls/hr Documented By: IJEOMA Co-signed By: ANA Potassium Phosphate 21 mmol/ (Sodium Chloride) 507 mls @ 88 mls/hr IV ONE ONE Stop: 11/19/22 14:00 Last Infusion: 11/19/22 15:21 Dose: 0 mls/hr Documented By: Admin: 11/19/22 08:45 Dose: 88 mls/hr Documented By: EDWIN Vancomycin HCl 1,250 mg/ (Dextrose) 275 mls @ 200 mls/hr IV Q24H [facility] Stop: 11/26/22 10:29 Last Infusion: 11/20/22 12:50 Dose: 0 mls/hr Documented By: Admin: 11/20/22 10:09 Dose: 200 mls/hr Documented By: Infusion: 11/19/22 11:44 Dose: 0 mls/hr Documented By: Admin: 11/19/22 10:19 Dose: 200 mls/hr Documented By: EDWIN Magnesium Sulfate/Dextrose (Magnesium Sulfate / D5w) 1 gm in 100 mls @ 50 mls/hr IV Q2H [facility] Stop: 11/20/22 09:44 Last Infusion: 11/20/22 11:08 Dose: 0 mls/hr Documented By: Admin: 11/20/22 09:01 Dose: 50 mls/hr Documented By: Infusion: 11/20/22 08:00 Dose: 0 mls/hr Documented By: Admin: 11/20/22 05:51 Dose: 50 mls/hr Documented By: SUSAN Propofol (Diprivan) 1,000 mg in 100 mls @ 0 mls/hr IV .Q0M SAMANTHA; Protocol Stop: 11/23/22 10:44 Last Titration: 11/21/22 14:42 Dose: 0 mcg/kg/min, 0 mls/hr Documented By: Admin: 11/21/22 11:21 Dose: Not Given Documented By: Admin: 11/21/22 11:21 Dose: Not Given Documented By: Titration: 11/21/22 11:05 Dose: 0 mcg/kg/min, 0 mls/hr Documented By: Admin: 11/21/22 03:11 Dose: 25 mcg/kg/min, 9.7 mls/hr Documented By: IJEOMA Co-signed By: SYLWIA Titration: 11/21/22 03:11 Dose: 25 mcg/kg/min, 9.7 mls/hr Documented By: IJEOMA Co-signed By: TP Admin: 11/21/22 01:34 Dose: Not Given Documented By: Titration: 11/20/22 20:46 Dose: 25 mcg/kg/min, 9.7 mls/hr Documented By: Admin: 11/20/22 18:14 Dose: 20 mcg/kg/min, 7.8 mls/hr Documented By: EDWIN Co-signed By: ANUSHA(2) Titration: 11/20/22 18:10 Dose: 0 mcg/kg/min, 0 mls/hr Documented By: Titration: 11/20/22 14:47 Dose: 25 mcg/kg/min, 9.7 mls/hr Documented By: Titration: 11/20/22 14:11 Dose: 30 mcg/kg/min, 11.6 mls/hr Documented By: Titration: 11/20/22 11:00 Dose: 35 mcg/kg/min, 13.6 mls/hr Documented By: Titration: 11/20/22 10:30 Dose: 30 mcg/kg/min, 11.6 mls/hr Documented By: Titration: 11/20/22 10:00 Dose: 25 mcg/kg/min, 9.7 mls/hr Documented By: Admin: 11/20/22 09:10 Dose: 20 mcg/kg/min, 7.8 mls/hr Documented By: EDWIN Co-signed By: AM Fentanyl Citrate (Fentanyl Citrate) 2,500 mcg in 250 mls @ 0 mls/hr IV .Q0M SAMANTHA; Protocol Stop: 12/04/22 10:44 Last Titration: 11/21/22 14:50 Dose: 0 mcg/hr, 0 mls/hr Documented By: EDWIN Co-signed By: CB Titration: 11/21/22 11:05 Dose: 0 mcg/hr, 0 mls/hr Documented By: EDWIN Co-signed By: ANUSHA Titration: 11/20/22 20:46 Dose: 75 mcg/hr, 7.5 mls/hr Documented By: IJEOMA Co-signed By: TP Titration: 11/20/22 11:12 Dose: 50 mcg/hr, 5 mls/hr Documented By: EDWIN Co-signed By: ANUSHA(2) Admin: 11/20/22 09:30 Dose: 25 mcg/hr, 2.5 mls/hr Documented By: EDWIN Co-signed By: AM Vancomycin HCl 1,000 mg/ (Dextrose) 270 mls @ 200 mls/hr IV NOW ONE Stop: 11/21/22 13:05 Last Infusion: 11/21/22 14:47 Dose: 0 mls/hr Documented By: Admin: 11/21/22 12:03 Dose: 200 mls/hr Documented By: EDWIN Sodium Phosphate 15 mmol/ (Sodium Chloride) 255 mls @ 100 mls/hr IV ONE ONE Stop: 11/22/22 08:32 Last Infusion: 11/22/22 08:46 Dose: 0 mls/hr Documented By: Admin: 11/22/22 06:11 Dose: 100 mls/hr Documented By: IJEOMA Insulin Aspart (Insulin Aspart Per Unit Charge) [facility] Stop: 12/16/22 23:34 Last Admin: 11/18/22 17:08 Dose: Not Given Documented By: Admin: 11/18/22 12:23 Dose: 7 units Documented By: [id number] Co-signed By: STEVAN Admin: 11/18/22 09:17 Dose: 5 units Documented By: [id number] Co-signed By: FACUNDO Admin: 11/17/22 20:39 Dose: 3 units Documented By: FABIANO Co-signed By: QI Admin: 11/17/22 17:49 Dose: 9 units Documented By: JACINDA Co-signed By: RAMÓN Admin: 11/17/22 12:53 Dose: 6 units Documented By: JACINDA Co-signed By: STEVAN Admin: 11/17/22 09:17 Dose: 1 units Documented By: JACINDA Co-signed By: RAMÓN Admin: 11/17/22 00:37 Dose: 4 units Documented By: JOMAR Co-signed By: ERIKA Insulin Aspart (Insulin Aspart Per Unit Charge) 0 units SC Q6 [facility] Stop: 12/18/22 17:59 Last Admin: 11/19/22 05:58 Dose: 4 units Documented By: IJEOMA Co-signed By: JOSE GUADALUPE Admin: 11/19/22 00:18 Dose: 3 units Documented By: JOSE GUADALUPE Co-signed By: MAIDA Admin: 11/18/22 18:01 Dose: Not Given Documented By: ISABELL Insulin Aspart (Insulin Aspart Per Unit Charge) 0 units SC ACHS SAMANTHA Stop: 12/18/22 17:59 Last Admin: 11/20/22 12:52 Dose: Not Given Documented By: Admin: 11/20/22 08:50 Dose: 2 units Documented By: EDWIN Co-signed By: HYUN Admin: 11/19/22 20:22 Dose: 7 units Documented By: IJEOMA Co-signed By: SUSAN Admin: 11/19/22 17:46 Dose: 3 units Documented By: EDWIN Co-signed By: ANUSHA(2) Admin: 11/19/22 12:01 Dose: 9 units Documented By: EDWIN Co-signed By: ZARA Insulin Aspart (Insulin Aspart Per Unit Charge) 0 units SC 0000,0400 SAMANTHA Stop: 11/20/22 04:01 Last Admin: 11/20/22 04:22 Dose: 2 units Documented By: SUSAN Co-signed By: JOSE GUADALUPE Admin: 11/20/22 00:27 Dose: 1 units Documented By: IJEOMA Co-signed By: JOSE GUADALUPE Insulin Glargine (Lantus Per Unit Charge) 5 units SQ NOW STA Stop: 11/17/22 00:13 Last Admin: 11/17/22 00:50 Dose: 5 units Documented By: JOMAR Co-signed By: LINDA Insulin Glargine (Lantus Per Unit Charge) 5 units SQ HS SAMANTHA Stop: 12/17/22 20:59 Last Admin: 11/17/22 20:38 Dose: 5 units Documented By: FABIANO Co-signed By: QI Insulin Glargine (Lantus Per Unit Charge) 5 units SQ BID SAMANTHA Stop: 12/18/22 08:59 Last Admin: 11/18/22 09:18 Dose: 5 units Documented By: [id number] Co-signed By: FACUNDO Insulin Glargine (Lantus Per Unit Charge) 20 units SQ DAILY SAMANTHA Stop: 12/18/22 12:44 Last Admin: 11/19/22 10:12 Dose: Not Given Documented By: Admin: 11/18/22 12:50 Dose: 20 units Documented By: [id number] Co-signed By: STEVAN Insulin Glargine (Lantus Per Unit Charge) 25 units SQ DAILY [facility] Stop: 12/19/22 10:14 Last Admin: 11/19/22 10:17 Dose: 25 units Documented By: EDWIN Co-signed By: ANUSHA(2) Insulin Glargine (Lantus Per Unit Charge) 0 units SQ HS SAMNATHA; Protocol Stop: 12/19/22 20:59 Last Admin: 11/20/22 20:39 Dose: Not Given Documented By: Admin: 11/19/22 20:23 Dose: 10 units Documented By: IJEOMA Co-signed By: SUSAN Insulin Glargine (Lantus Per Unit Charge) 35 units SQ DAILY [facility] Stop: 12/19/22 10:14 Last Admin: 11/20/22 08:51 Dose: 35 units Documented By: EDWIN Co-signed By: HYUN Ioversol (Optiray 320 100ml) 92 ml IV ONCE ONE Stop: 11/16/22 19:43 Last Admin: 11/16/22 19:42 Dose: 92 ml Documented By: PLTammy Ipratropium [place] (Ipratropium [place] Neb Soln 0.02% 2.5 Ml Vial) 0.5 mg INH NOW STA Stop: 11/19/22 00:08 Last Admin: 11/19/22 01:27 Dose: Not Given Documented By: EML Ipratropium [place] (Ipratropium [place] Neb Soln 0.02% 2.5 Ml Vial) 0.5 mg INH Q6R SAMANTHA Stop: 12/19/22 06:59 Last Admin: 11/22/22 07:26 Dose: 0.5 mg Documented By: Admin: 11/22/22 00:14 Dose: 0.5 mg Documented By: Admin: 11/21/22 19:35 Dose: 0.5 mg Documented By: Admin: 11/21/22 13:28 Dose: 0.5 mg Documented By: Admin: 11/21/22 07:36 Dose: 0.5 mg Documented By: Admin: 11/21/22 01:34 Dose: 0.5 mg Documented By: Admin: 11/20/22 19:45 Dose: 0.5 mg Documented By: Admin: 11/20/22 11:47 Dose: 0.5 mg Documented By: Admin: 11/20/22 07:24 Dose: 0.5 mg Documented By: Admin: 11/19/22 23:53 Dose: 0.5 mg Documented By: Admin: 11/19/22 20:20 Dose: 0.5 mg Documented By: Admin: 11/19/22 14:27 Dose: Not Given Documented By: Admin: 11/19/22 07:18 Dose: 0.5 mg Documented By: MIGUEL Isosorbide Mononitrate (Isosorbide [place] Extended Rel 30 Mg Tabcr) 30 mg PO QAM SAMANTHA Stop: 12/17/22 08:59 Last Admin: 11/20/22 08:44 Dose: Not Given Documented By: Admin: 11/19/22 13:14 Dose: Not Given Documented By: Admin: 11/18/22 09:08 Dose: Not Given Documented By: [id number] Admin: 11/17/22 09:25 Dose: Not Given Documented By: GPF Levalbuterol HCl (Levalbuterol 1.25 Mg/3 Ml Neb) 1.25 mg NEB NOW STA Stop: 11/19/22 00:08 Last Admin: 11/19/22 01:28 Dose: Not Given Documented By: EMHarmony Levalbuterol HCl (Levalbuterol 1.25 Mg/3 Ml Neb) 1.25 mg NEB Q6R SAMANTHA Stop: 12/19/22 06:59 Last Admin: 11/22/22 07:25 Dose: 1.25 mg Documented By: Admin: 11/22/22 00:14 Dose: 1.25 mg Documented By: Admin: 11/21/22 19:35 Dose: 1.25 mg Documented By: Admin: 11/21/22 13:28 Dose: 1.25 mg Documented By: Admin: 11/21/22 07:36 Dose: 1.25 mg Documented By: Admin: 11/21/22 01:34 Dose: 1.25 mg Documented By: Admin: 11/20/22 19:45 Dose: 1.25 mg Documented By: Admin: 11/20/22 11:47 Dose: 1.25 mg Documented By: Admin: 11/20/22 07:24 Dose: 1.25 mg Documented By: Admin: 11/19/22 23:53 Dose: 1.25 mg Documented By: Admin: 11/19/22 20:20 Dose: 1.25 mg Documented By: Admin: 11/19/22 14:28 Dose: Not Given Documented By: Admin: 11/19/22 07:18 Dose: 1.25 mg Documented By: MIGUEL Lorazepam (Lorazepam 2 Mg/1 Ml Vial) 0.25 mg IV NOW STA Stop: 11/16/22 21:34 Last Admin: 11/17/22 00:16 Dose: Not Given Documented By: JOMAR Lorazepam (Lorazepam 2 Mg/1 Ml Vial) 1 mg IV NOW STA Stop: 11/19/22 20:59 Last Admin: 11/19/22 22:55 Dose: Not Given Documented By: SUSAN Lorazepam (Lorazepam 2 Mg/1 Ml Vial) Confirm Administered Dose 2 mg .ROUTE .STK- MED ONE Stop: 11/19/22 21:05 Last Admin: 11/19/22 22:53 Dose: Not Given Documented By: SUSAN Lorazepam (Lorazepam 2 Mg/1 Ml Vial) 1 mg IM NOW STA Stop: 11/19/22 22:29 Last Admin: 11/19/22 22:50 Dose: 1 mg Documented By: SUSAN Metoprolol Succinate (Metoprolol Succ 50mg Ext Rel Tab) 50 mg PO NOW STA Stop: 11/16/22 20:39 Last Admin: 11/16/22 21:02 Dose: 50 mg Documented By: ACC Metoprolol Succinate (Metoprolol Succ 50mg Ext Rel Tab) 100 mg PO QAM SAMANTHA Stop: 12/17/22 05:44 Last Admin: 11/17/22 06:36 Dose: Not Given Documented By: JOMAR Metoprolol Tartrate (Metoprolol Tartrate 1 Mg/Ml Vial) 2.5 mg IV Q6 [facility] Stop: 12/17/22 06:09 Last Admin: 11/19/22 05:59 Dose: 2.5 mg Documented By: Admin: 11/19/22 00:26 Dose: 2.5 mg Documented By: JOSE GUADALUPE Admin: 11/18/22 17:29 Dose: 2.5 mg Documented By: Admin: 11/18/22 11:51 Dose: 2.5 mg Documented By: [id number] Admin: 11/18/22 06:07 Dose: 2.5 mg Documented By: Admin: 11/18/22 00:10 Dose: 2.5 mg Documented By: Admin: 11/17/22 17:24 Dose: 2.5 mg Documented By: Admin: 11/17/22 12:53 Dose: 2.5 mg Documented By: Admin: 11/17/22 06:18 Dose: 2.5 mg Documented By: WANDER Metoprolol Tartrate (Metoprolol Tartrate 1 Mg/Ml Vial) 5 mg IV Q4H [facility] Stop: 12/19/22 09:59 Last Admin: 11/20/22 10:52 Dose: Not Given Documented By: Admin: 11/20/22 05:24 Dose: 5 mg Documented By: Admin: 11/20/22 02:49 Dose: 5 mg Documented By: Admin: 11/19/22 20:44 Dose: 5 mg Documented By: Admin: 11/19/22 18:39 Dose: 5 mg Documented By: Admin: 11/19/22 15:16 Dose: 5 mg Documented By: Admin: 11/19/22 10:17 Dose: 5 mg Documented By: NIKK Metoprolol Tartrate (Metoprolol Tartrate 25 Mg Tab) 75 mg OG BID SAMANTHA Stop: 12/20/22 11:29 Last Admin: 11/20/22 12:21 Dose: 75 mg Documented By: NIKK Metoprolol Tartrate (Metoprolol Tartrate 1 Mg/Ml Vial) 5 mg IV Q6 SAMANTHA Stop: 12/22/22 00:00 Last Admin: 11/22/22 06:13 Dose: 5 mg Documented By: Admin: 11/22/22 00:27 Dose: 5 mg Documented By: IJEOMA Metoprolol Tartrate (Metoprolol Tartrate 1 Mg/Ml Vial) 5 mg IV NOW STA Stop: 11/21/22 20:42 Last Admin: 11/21/22 21:01 Dose: 5 mg Documented By: IJEOMA Miscellaneous (Rapid Sequence Induction Bag) Confirm Administered Dose 1 each N/A .STK-MED ONE Stop: 11/20/22 08:51 Last Admin: 11/20/22 10:08 Dose: 1 each Documented By: EDWIN Naloxone HCl (Naloxone Hcl 0.4 Mg/1 Ml Vial/Carp) 0.4 mg IV NOW STA Stop: 11/16/22 15:45 Last Admin: 11/16/22 15:53 Dose: 0.4 mg Documented By: KT Nutritional Formula (Peptamen Intense Vhp 1.0 Jesus 1,000 Ml Bag) 1,000 ml OG .See Protocol SAMANTHA; Protocol Stop: 12/20/22 11:44 Last Admin: 11/20/22 12:20 Dose: 1,000 ml Documented By: EDWIN Olanzapine (Olanzapine 10 Mg/2.1 Ml Sdv) 2.5 mg IM NOW STA Stop: 11/16/22 21:22 Last Admin: 11/16/22 21:37 Dose: 2.5 mg Documented By: ACC Olanzapine (Olanzapine 10 Mg/2.1 Ml Sdv) 2.5 mg IM Q4H PRN PRN Reason: Agitation Stop: 12/16/22 21:28 Last Admin: 11/17/22 00:08 Dose: 2.5 mg Documented By: KRT Olanzapine (Olanzapine 10 Mg/2.1 Ml Sdv) 5 mg IM NOW STA Stop: 11/17/22 02:32 Last Admin: 11/17/22 02:43 Dose: 5 mg Documented By: JOMAR Olanzapine (Olanzapine 10 Mg/2.1 Ml Sdv) 2.5 mg IM HS [facility] Stop: 12/18/22 19:54 Last Admin: 11/18/22 20:56 Dose: 2.5 mg Documented By: FABIANO Olanzapine (Olanzapine 10 Mg/2.1 Ml Sdv) 2.5 mg IM NOW STA Stop: 11/18/22 21:26 Last Admin: 11/18/22 21:37 Dose: 2.5 mg Documented By: FABIANO Olanzapine (Olanzapine 10 Mg/2.1 Ml Sdv) 2.5 mg IM NOW STA Stop: 11/19/22 00:10 Last Admin: 11/19/22 01:27 Dose: 2.5 mg Documented By: IJEOMA Olanzapine (Olanzapine 10 Mg/2.1 Ml Sdv) 5 mg IM NOW STA Stop: 11/21/22 20:36 Last Admin: 11/21/22 21:00 Dose: 5 mg Documented By: IJEOMA Pantoprazole Sodium (Pantoprazole 40 Mg Tab) 40 mg PO DAILY SAMANTHA Stop: 12/17/22 08:59 Last Admin: 11/18/22 09:08 Dose: Not Given Documented By: [id number] Admin: 11/17/22 09:25 Dose: Not Given Documented By: JACINDA Potassium Chloride (Potassium Chloride 20 Meq/15 Ml Udc) 20 meq NG Q4H [facility] Stop: 11/20/22 22:31 Last Admin: 11/20/22 20:40 Dose: 20 meq Documented By: Admin: 11/20/22 18:25 Dose: 20 meq Documented By: EDWIN Propofol (Propofol Iv Emulsion 10 Mg/Ml 100 Ml Vial) Confirm Administered Dose 1,000 mg IV .STK-MED ONE Stop: 11/20/22 08:57 Last Admin: 11/20/22 10:08 Dose: Not Given Documented By: EDWIN Propofol (Propofol Bolus From Bag) 20 mg IV Q5M PRN PRN Reason: Sedation Stop: 11/23/22 10:36 Last Admin: 11/21/22 05:12 Dose: 20 mg Documented By: IJEOMA Co-signed By: SYLWIA Admin: 11/21/22 02:33 Dose: 20 mg Documented By: IJEOMA Co-signed By: SYLWIA Admin: 11/20/22 20:46 Dose: 20 mg Documented By: IJEOMA Co-signed By: TP Admin: 11/20/22 10:52 Dose: 20 mg Documented By: EDWIN Co-signed By: AM Sterile Water (Tube Feeding Water Flush) 250 ml OG Q4H SAMANTHA Stop: 12/20/22 11:44 Last Admin: 11/21/22 12:11 Dose: Not Given Documented By: Admin: 11/21/22 08:43 Dose: 250 ml Documented By: Admin: 11/21/22 03:11 Dose: 250 ml Documented By: Admin: 11/20/22 23:45 Dose: 250 ml Documented By: Admin: 11/20/22 20:31 Dose: 250 ml Documented By: Admin: 11/20/22 17:41 Dose: 250 ml Documented By: Admin: 11/20/22 12:21 Dose: 250 ml Documented By: EDWIN Description This is a 21 electrode EEG with a single channel dedicated to limited EKG. The electrodes were placed in accordance with the International 10-20 system. REPORT: At the onset of the EEG the patient is awake. The background is disorganized although continuous. The posterior dominant rhythm is not well seen. The background predominantly consists of generalized 3-5 hertz theta delta activity with some intermixed frontally predominant sharply contoured waves with triphasic morphology. Photic stimulation does not induce any abnormalities. No stage 2 sleep transients are seen. Interpretation This is an abnormal awake and drowsy routine EEG due to 1. Moderate to severe generalized background slowing suggestive of a nonspecific encephalopathy, 2. intermittent triphasic waves which are nonspecific and can be seen in metabolic or toxic encephalopathies. No electrographic seizures were seen.
--- NOTE | 2022-11-22 16:01 | Electrocardiogram Report ---
Test Reason : Blood Pressure : / mmHG Vent. Rate : 116 BPM Atrial Rate : 116 BPM P-R Int : 132 ms QRS Dur : 092 ms QT Int : 334 ms P-R-T Axes : 063 085 039 degrees QTc Int : 464 ms Sinus tachycardia Otherwise normal ECG When compared with ECG of 19-NOV-2022 22:37, No significant change was found Confirmed by Macario Candelaria ([id number]) on 11/22/2022 4:01:51 PM Referred By: REFERRED SELF Confirmed By:Macario Candelaria
[2022-11-22] MEDS ORDERED: LORazepam 2 MG/1 ML VIAL IV SCH (17:24)
[2022-11-22] MEDS: ENOXAPARIN INJ 40 MG/0.4 ML SYR SQ SCH (19:44)
[2022-11-22] MEDS: HALOPERIDOL LACTATE 5 MG/ML 1 ML VIAL IV SCH (20:53)
[2022-11-23] MEDS: PLASMA-LYTE A 1,000 ML IV SCH (03:56)
[2022-11-23] MEDS: INSULIN ASPART PER UNIT CHARGE SC SCH ×5 (04:18→21:53)
[2022-11-23 04:26] LABS: Basophils # (auto) 0.02 K/uL (0.00-0.20); Basophils % (auto) 0.2 %; Eosinophils # (auto) 0.22 K/uL (0.00-0.50); Eosinophils % (auto) 2.6 %; Hematocrit (blood only) 23.9 % (37.0-47.0); Hemoglobin 7.4 g/dl (12.0-16.0); Immature Granulocytes # (auto) 0.14 K/uL (0.01-0.20); Immature Granulocytes % (auto) 1.6 %; Lymphocytes # (auto) 1.66 K/uL (1.20-3.40); Lymphocytes % (auto) 19.4 %; Mean Corpuscular Hemoglobin 29.1 pg (25.0-34.0); Mean Corpuscular Volume 94.1 fL (80.0-100.0); Mean Platelet Volume 12.2 fL (9.4-12.4); Monocytes # (auto) 1.96 K/uL (0.11-0.59); Monocytes % (auto) 22.9 %; Neutrophils # (auto) 4.55 K/uL (1.40-6.50); Neutrophils % (auto) 53.3 %; Platelet Count 196 K/uL (130-400); RDW Standard Deviation 61.1 fL (36.4-46.3); Red Blood Count 2.54 M/uL (4.20-5.40); White Blood Count 8.55 K/ul (4.8-10.8)
[2022-11-23 04:45] LABS: BUN Creatinine Ratio 31.3 (10-20); Calcium 8.7 mg/dl (8.6-10.3); Creatinine Clr Calc Pharmacy 64.3 ml/min; Est GFR (African American) 90.3 ml/min; Est GFR (Non-African American) 77.9 ml/min; Magnesium 1.9 mg/dl (1.7-2.4); Phosphorus 1.9 mg/dl (2.5-4.9); Potassium 3.3 mmol/L (3.5-5.1)
[2022-11-23 04:46] LABS: Polychromasia 1+
[2022-11-23] MEDS ORDERED: POTASSIUM PHOS 3 MMOL/1 ML INFUSION IV STA (05:58)
[2022-11-23] MEDS: ICU ELECTROLYTE REPLACEMENT PROTOCOL SCH ×2 (06:09→17:15)
[2022-11-23] MEDS: METOPROLOL TARTRATE 1 MG/ML VIAL IV SCH ×3 (06:09→17:15)
[2022-11-23] MEDS ORDERED: POTASSIUM PHOSPHATE 30 MMOL in SODIUM CHLORIDE 0.9% 500 ML IV ONE (06:30)
[2022-11-23] MEDS: LANTUS PER UNIT CHARGE SC SCH ×2 (08:04→21:54)
[2022-11-23] MEDS: ASPIRIN 81 MG CHEW PO SCH (08:06)
[2022-11-23] MEDS: HALOPERIDOL LACTATE 5 MG/ML 1 ML VIAL IV SCH ×2 (08:10→13:19)
[2022-11-23] MEDS: PANTOprazole 40 MG in SYRINGE 0 ML IV SCH ×2 (08:11→20:11)
--- NOTE | 2022-11-23 08:59 | Critical Care Progress Note ---
Date of Service November 23, 2022 Assessment & Plan (1) Acute respiratory failure with hypoxia: (2) COPD (chronic obstructive pulmonary disease): (3) Pleural effusion: (4) Encephalopathy: (5) Multifocal pneumonia: (6) Acute on chronic combined systolic and diastolic CHF (congestive heart failure): (7) PAD (peripheral artery disease): (8) UTI (urinary tract infection): (9) Diabetes mellitus, type 2: (10) HTN (hypertension): (11) Coronary artery disease: Plan Reason Critically Ill: 62-year-old female past medical history of moderate to severe MR, coronary artery disease status post CABG, left bundle branch block, dyslipidemia, tobacco use presented to the hospital with altered mental status and pulmonary edema along with left-sided pneumonia. In the ICU for hypoxia and mental changes Neuro - Encephalopathy Multifactorial: Significantly improved -Underlying sepsis from left-sided pneumonia playing a role along with underlying mood disorder -Prior records report psychotic episode/mood disorder - Restart home zyprexa 5mg nightly, topamax 50mg bid; cymbalata 90mg daily -Reviewed psychiatric consult, discontinuing Haldol IV given significant improvement -Neuro Lyme remotely in differential, she has had 2 IgM Western blot's positive both in July and November, neither time has a IgG been positive -If this were to represent an active Lyme infection I would consider this to be early, however she is not meeting criteria typical of neuro Lyme: Cranial nerve palsy meningitis radiculoneuropathy this could represent severe encephalitis which would be treated with 21 to 28 days of Rocephin acceptable alternatives include doxycycline for 14 to 21 days even for early neuro involvement -Accordingly the patient has had rapid encephalopathic improvement which she is not indicative of late Lyme encephalopathy or severe Lyme encephalopathy where the encephalopathy is very dense and persistent -Discussed CSF sampling with daughter, decided to proceed with empiric treatment via joint medical decision making -Given potential for complications with indwelling PICC for prolonged IV Rocephin and given the rapid improvement in her neurologic state I feel doxycy orr is the preferred medication. Plan for a 21-day empiric treatment of possible Lyme with doxycycline -RPR pending Cardiac - --Acute on chronic diastolic heart failure/mitral regurgitation -Continue diuresis to maintain negative fluid balance Elevated troponins on previous admissions -Repeat troponins, could this be early evidence of carditis related to Lyme's? 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 -EKG reviewed no evidence of interval prolongation, again I feel Lyme carditis is unlikely 2D echo 10/31/2022: EF 55-60%, moderate to severe MR, mild concentric LVH no pulmonary hypertension CADhistory of CABG x4 -No ST elevations on EKG, troponins unremarkable -On isosorbide mononitrate, MTP, Plavix, ASA, statin -Continuous monitor on telemetry Respiratory - --Acute on chronic hypoxic respiratory failure Multifactorial -possible hxc CHF with bilateral pleural effusion, effusions no longer present Left-sided pneumonia: Resolved Respiratory bio fire negative for everything on 11/16/2022 Procalcitonin 0.38,nasal MRSA positive BNP 467 Thoracentesis 11/03/2022 left-sided, 1300 mL serosanguineous fluid removed,31% lymphocytes,exudative as per LDH, lights criteria, no obvious pleural effusion on radiography Pleural fluid: LDH 242, protein less than 3, glucose 127, pH 7.46 Serum: LDH 339, protein 3.6 BiPAP nightly and as needed shortness of breath will be beneficial --Tobacco abuse Possibility of patient having COPD is there - Per daughter's report patient had previously been ordered 2 L of oxygen and CPAP for obstructive sleep apnea -There is an extensive history of ongoing tobacco use/dependency when the patient was found she was not on oxygen -Daughter additionally confirms that she has seen patient with cigarettes while wearing oxygen and is concerned she does smoke with oxygen present. -Referral to office of aging for resources, daughter is concerned patient needs is exceeding her ability to live independently. GI - Clear diet advance as tolerated Constipation: Positive bowel sounds continue with current bowel regimen -Restart bowel regimen RENAL/LYTES - -- GUY --> improving Hyperchloremic state, improving -Mixed acid-base disorder improving - PureWick as needed ENDO - DM type IIcontinue with basal bolus/sliding scale insulin. ICU hyperglycemic protocol TSH within normal limits HEME - -- Drop in hemoglobin BUN elevated, remote concern of upper GI bleed: However patient is having constipation Continue with pantoprazole -Iron studies more indicative of anemia of chronic disease, reticulocyte count is elevated, haptoglobin pending, peripheral smear: reviewed -Sending B12 and folate levels for completeness however this appears to be anemia of chronic disease Patient has been transfused 2 times so far, once in the ICU while I do not have a rapid explanation versus iatrogenic losses through phlebotomy patient has not had a bowel movement let alone melena or hematochezia which would be indicative of significant gastrointestinal bleeding -Guaiac stool when produced --New onset thrombocytopenia: Resolved -Presumptive secondary to underlying disease processes ID - Febrile illness -- Pneumonialeft-sided consolidation on CT chest along with leukocytosis. -Lyme panel negative, bio fire negative -Patient did have history of UTI with Klebsiella, completed antibiotic course, urinalysis 11/18/2022 negative for nitrites and bacteria -Nasal MRSA positive -Sputum culture yeast -Antibiotic regimen for this admission includes 6 days effective therapy of cefepime, 7 days effective therapy of vancomycin, 48 hours of Rocephin for possible neuro Lyme will de-escalate to 21-day course of oral doxycycline once patient afebrile and taking reliable p.o. --Prophylaxis VTE: Lovenox GI: Pantoprazole, continue IV as patient refusing p.o. and this was an outpatient medication Lines: Peripheral, with improvement encephalopathy unlikely to need PICC line as we should be able to de-escalate to oral doxycycline for antibiotic coverage Stable for downgrade out of ICU Admission and Anticipated Discharge Date Admission Date: November 16, 2022 Subjective Significant improvement encephalopathy. Not recalling events of previous couple of days. Following complex commands. No specific complaints Physical Exam Physical Exam: General: Alert. nontoxic. Skin: Warm, dry, Head: Atraumatic Ears, nose, mouth and throat: airway patent Cardiovascular: Normal peripheral perfusion Respiratory: no respiratory distress Gastrointestinal: Non distended Musculoskeletal: BKA present Results & Data Results & Data Vital Signs (Past 12 Hours) Vital Signs Temp Pulse Resp BP Pulse Ox O2 Del Method O2 Flow Rate 11/23/22 08:30 105 H 17 98 11/23/22 08:30 172/76 H 11/23/22 08:00 104 H 26 H 98 11/23/22 08:00 173/87 H 11/23/22 07:30 172/78 H 11/23/22 07:30 100 H 31 H 99 Nasal Cannula 2 11/23/22 07:01 93 H 18 99 11/23/22 07:01 169/64 H 11/23/22 07:00 92 H 25 H 99 11/23/22 08:00 96 H 11/23/22 06:24 95 H 142/80 H 11/23/22 06:50 97 H 13 96 11/23/22 06:40 94 H 19 100 11/23/22 06:30 94 H 19 98 11/23/22 06:30 142/80 H 11/23/22 06:20 90 25 H 99 11/23/22 06:10 101 H 20 99 11/23/22 06:00 100 H 30 H 100 11/23/22 06:00 166/65 H 11/23/22 05:58 97 H 18 99 11/23/22 05:58 168/75 H 11/23/22 05:50 98 H 31 H 97 11/23/22 05:40 96 H 23 100 11/23/22 05:30 102 H 32 H 98 11/23/22 05:20 102 H 33 H 99 11/23/22 06:09 101 H 166/65 H 11/23/22 05:10 100 H 26 H 99 11/23/22 05:00 99 H 21 100 11/23/22 05:00 160/67 H 11/23/22 04:50 100 H 22 100 11/23/22 04:40 100 H 20 100 11/23/22 04:30 23 99 11/23/22 04:20 107 H 36 H 95 11/23/22 04:10 101 H 20 100 11/23/22 04:00 109 H 27 H 100 11/23/22 04:00 175/111 H 11/23/22 03:50 103 H 20 99 11/23/22 03:40 112 H 27 H 100 11/23/22 03:30 106 H 26 H 100 11/23/22 03:20 114 H 23 99 11/23/22 03:10 107 H 19 98 11/23/22 03:00 109 H 28 H 99 11/23/22 02:50 108 H 20 99 11/23/22 02:40 105 H 19 99 11/23/22 02:30 99 11/23/22 02:20 100 H 27 H 100 11/23/22 02:10 103 H 26 H 98 11/23/22 02:01 107 H 26 H 98 11/23/22 02:01 188/91 H 11/23/22 02:00 100 H 23 98 11/23/22 01:50 99 H 29 H 98 11/23/22 01:40 103 H 20 91 11/23/22 01:30 98 H 31 H 92 11/23/22 01:30 162/82 H 11/23/22 01:20 95 H 20 96 11/23/22 01:10 99 H 23 84 L 11/23/22 01:00 100 H 24 88 L 11/23/22 00:50 96 H 18 91 11/23/22 00:40 98 H 22 94 11/23/22 00:30 92 H 25 H 97 11/23/22 00:30 146/63 H 11/23/22 00:20 93 H 28 H 95 11/23/22 00:10 96 H 24 93 11/23/22 00:00 36.7 C 94 H 23 100 11/23/22 00:00 134/105 H 11/23/22 01:00 94 H 11/22/22 23:54 95 H 11/22/22 23:50 91 H 16 98 11/22/22 23:40 106 H 21 96 11/22/22 23:30 104 H 20 99 11/22/22 23:20 104 H 24 99 11/22/22 23:10 105 H 15 99 11/22/22 23:00 106 H 18 97 11/22/22 22:50 25.3 C L 106 H 17 95 11/22/22 22:40 37.7 C H 106 H 25 H 95 11/22/22 22:30 37.7 C H 105 H 27 H 88 L 11/22/22 22:20 37.7 C H 104 H 26 H 94 11/22/22 22:10 37.7 C H 105 H 24 91 11/22/22 22:00 37.6 C H 103 H 18 97 11/22/22 22:00 187/83 H 11/22/22 21:50 37.6 C H 100 H 22 98 11/22/22 21:40 37.6 C H 101 H 19 96 11/22/22 21:38 186/81 H 11/22/22 21:38 37.6 C H 106 H 28 H 97 11/22/22 21:30 37.6 C H 102 H 25 H 95 11/22/22 21:20 37.6 C H 105 H 31 H 96 11/22/22 21:10 37.5 C 104 H 25 H 97 11/22/22 21:00 37.5 C 101 H 29 H 96 11/22/22 21:00 176/74 H 11/22/22 23:40 106 H 164/76 H Diagnostic Findings EEG report reviewed The peripheral blood shows a normocytic anemia with increased anisopoikilocytosis. Scattered spherocytes are present (consistent with recent transfusions) but there is no significant increase in schistocytes. There is no evidence of rouleaux, RBC agglutination, basophilic stippling, or circulating nucleated red blood cells. The WBC is normal and all leukocytes are within normal absolute reference ranges. The granulocytes are appropriately segmented without dysplastic features. No circulating immature myeloid precursors or blasts are identified. The monocytes are morphologically mature. The lymphocytes are small to moderate in size and mature, without atypical features. The platelets are quantitatively normal. No dysplastic or giant forms are identified. The peripheral smear is remarkable for a normocytic anemia. There is a relatively dimorphic population of red cells with the recently transfused cells and then the [place] cells which appear fairly hypochromic. While there is likely at least a strong component of anemia of chronic disease, iron/folate/vitamin B12 levels are recommended to exclude a nutritional deficiency. There is no evidence of hemolysis or myelodysplasia. Brunilda Raza M.D. Critical Care Results & Data Vital Signs (Past 12 Hours) Vital Signs Temp Pulse Resp BP Pulse Ox O2 Del Method O2 Flow Rate 11/23/22 08:30 105 H 17 98 11/23/22 08:30 172/76 H 11/23/22 08:00 104 H 26 H 98 11/23/22 08:00 173/87 H 11/23/22 07:30 172/78 H 11/23/22 07:30 100 H 31 H 99 Nasal Cannula 2 11/23/22 07:01 93 H 18 99 11/23/22 07:01 169/64 H 11/23/22 07:00 92 H 25 H 99 11/23/22 08:00 96 H 11/23/22 06:24 95 H 142/80 H 11/23/22 06:50 97 H 13 96 11/23/22 06:40 94 H 19 100 11/23/22 06:30 94 H 19 98 11/23/22 06:30 142/80 H 11/23/22 06:20 90 25 H 99 11/23/22 06:10 101 H 20 99 11/23/22 06:00 100 H 30 H 100 11/23/22 06:00 166/65 H 11/23/22 05:58 97 H 18 99 11/23/22 05:58 168/75 H 11/23/22 05:50 98 H 31 H 97 11/23/22 05:40 96 H 23 100 11/23/22 05:30 102 H 32 H 98 11/23/22 05:20 102 H 33 H 99 11/23/22 06:09 101 H 166/65 H 11/23/22 05:10 100 H 26 H 99 11/23/22 05:00 99 H 21 100 11/23/22 05:00 160/67 H 11/23/22 04:50 100 H 22 100 11/23/22 04:40 100 H 20 100 11/23/22 04:30 23 99 11/23/22 04:20 107 H 36 H 95 11/23/22 04:10 101 H 20 100 11/23/22 04:00 109 H 27 H 100 11/23/22 04:00 175/111 H 11/23/22 03:50 103 H 20 99 11/23/22 03:40 112 H 27 H 100 11/23/22 03:30 106 H 26 H 100 11/23/22 03:20 114 H 23 99 11/23/22 03:10 107 H 19 98 11/23/22 03:00 109 H 28 H 99 11/23/22 02:50 108 H 20 99 11/23/22 02:40 105 H 19 99 11/23/22 02:30 99 11/23/22 02:20 100 H 27 H 100 11/23/22 02:10 103 H 26 H 98 11/23/22 02:01 107 H 26 H 98 11/23/22 02:01 188/91 H 11/23/22 02:00 100 H 23 98 11/23/22 01:50 99 H 29 H 98 11/23/22 01:40 103 H 20 91 11/23/22 01:30 98 H 31 H 92 11/23/22 01:30 162/82 H 11/23/22 01:20 95 H 20 96 11/23/22 01:10 99 H 23 84 L 11/23/22 01:00 100 H 24 88 L 11/23/22 00:50 96 H 18 91 11/23/22 00:40 98 H 22 94 11/23/22 00:30 92 H 25 H 97 11/23/22 00:30 146/63 H 11/23/22 00:20 93 H 28 H 95 11/23/22 00:10 96 H 24 93 11/23/22 00:00 36.7 C 94 H 23 100 11/23/22 00:00 134/105 H 11/23/22 01:00 94 H 11/22/22 23:54 95 H 11/22/22 23:50 91 H 16 98 11/22/22 23:40 106 H 21 96 11/22/22 23:30 104 H 20 99 11/22/22 23:20 104 H 24 99 11/22/22 23:10 105 H 15 99 11/22/22 23:00 106 H 18 97 11/22/22 22:50 25.3 C L 106 H 17 95 11/22/22 22:40 37.7 C H 106 H 25 H 95 11/22/22 22:30 37.7 C H 105 H 27 H 88 L 11/22/22 22:20 37.7 C H 104 H 26 H 94 11/22/22 22:10 37.7 C H 105 H 24 91 11/22/22 22:00 37.6 C H 103 H 18 97 11/22/22 22:00 187/83 H 11/22/22 21:50 37.6 C H 100 H 22 98 11/22/22 21:40 37.6 C H 101 H 19 96 11/22/22 21:38 186/81 H 11/22/22 21:38 37.6 C H 106 H 28 H 97 11/22/22 21:30 37.6 C H 102 H 25 H 95 11/22/22 21:20 37.6 C H 105 H 31 H 96 11/22/22 21:10 37.5 C 104 H 25 H 97 11/22/22 21:00 37.5 C 101 H 29 H 96 11/22/22 21:00 176/74 H 11/22/22 23:40 106 H 164/76 H Lab & Micro Results (Past 24 Hours) RBC 2.54 M/uL (4.20-5.40) L 11/23/22 WBC 8.55 K/ul (4.8-10.8) 11/23/22 Hgb 7.4 g/dl (12.0-16.0) L 11/23/22 Hct 23.9 % (37.0-47.0) L 11/23/22 MCV 94.1 fL (80.0-100.0) 11/23/22 MCH 29.1 pg (25.0-34.0) 11/23/22 MCHC 31.0 g/dL (32.0-36.0) L 11/23/22 RDW Standard Deviation 61.1 fL (36.4-46.3) H 11/23/22 RDW Coefficient of Variation 18.0 % (11.5-14.5) H 11/23/22 Plt Count 196 K/uL (130-400) 11/23/22 MPV 12.2 fL (9.4-12.4) 11/23/22 Neutrophils (%) (Auto) 53.3 % 11/23/22 Lymphocytes (%) (Auto) 19.4 % 11/23/22 Monocytes # (Auto) 1.96 K/uL (0.11-0.59) H 11/23/22 Eosinophils # (Auto) 0.22 K/uL (0.00-0.50) 11/23/22 Immature Granulocyte % (Auto) 1.6 % 11/23/22 Neutrophils # (Auto) 4.55 K/uL (1.40-6.50) 11/23/22 Lymphocytes # (Auto) 1.66 K/uL (1.20-3.40) 11/23/22 Monocytes # (Auto) 1.96 K/uL (0.11-0.59) H 11/23/22 Eosinophils # (Auto) 0.22 K/uL (0.00-0.50) 11/23/22 Basophils # (Auto) 0.02 K/uL (0.00-0.20) 11/23/22 Immature Granulocyte # (Auto) 0.14 K/uL (0.01-0.20) 3 Polychromasia 1+ 11/23/22 Na 146 mmol/L (136-145) H 11/23/22 K 3.3 mmol/L (3.5-5.1) L 11/23/22 Cl 118 mmol/L (98-107) H 11/23/22 CO2 19 mmol/L (21-32) L 11/23/22 Anion Gap 9 (3-11) 11/23/22 BUN 25 mg/dl (6-23) H 11/23/22 Creatinine 0.80 mg/dl (0.6-1.2) 11/23/22 Estimated GFR ( Amer) 90.3 ml/min 11/23/22 Estimated GFR (Non-Af Amer) 77.9 ml/min 11/23/22 BUN/Creatinine Ratio 31.3 (10-20) H 11/23/22 Glu 96 mg/dl (70-99(Fasting)) 11/23/22 Ca 8.7 mg/dl (8.6-10.3) 11/23/22 Phosphorus Level 1.9 mg/dl (2.5-4.9) L 11/23/22 Mg 1.9 mg/dl (1.7-2.4) 11/23/22 03:47 Calcium Level 8.7 mg/dl (8.6-10.3) 11/23/22 03:47 Microbiology 11/21/22 07:40 Gram Stain - Final Sputum, Expectorated Sputum Culture - Final Yeast not Torri albicans/dub 11/22/22 10:11 Fungal Smear - Final Blood 11/16/22 16:36 Aerobic Blood Culture - Final Blood No growth in Aerobic bottle after 5 days. Anaerobic Blood Culture - Final No growth in Anaerobic bottle after 5 days. 11/16/22 15:33 Aerobic Blood Culture - Final Blood No growth in Aerobic bottle after 5 days. Anaerobic Blood Culture - Final No growth in Anaerobic bottle after 5 days. I & O Totals 24 Hours 11/22/22 11/23/22 11/24/22 06:59 06:59 06:59 Intake Total 1124.005 / 4590.663 5155 / 3275 Output Total 1275 / 1275 1580 / 1580 Balance -150.995 / -102.770 5505 / 1695 Cumulative 11/16/22 15:06 thru 11/23/22 06:00 Intake Total 80578.435 Output Total 77 Balance 4473.435 RT Ventilator Mngmt (Last Documented) Ventilator Ordered Settings Ventilator Support Mode CPAP 11/21/22 11:00 Respiratory Rate 17 11/23/22 08:30 Ventilator Tidal Volume 40 11/21/22 07:10 Setting Minute Ventilation 8.2 11/21/22 11:00 Ventilator Positive Pressure 5 11/21/22 11:00 Support Setting Positive End Expiratory 5 11/21/22 11:00 Pressure Fraction of Inspired Oxygen 30 11/21/22 13:00 Ventilator - PT Measurements Respiratory Rate 17 Exhaled Tidal Volume 498 Minute Ventilation 8.2 Peak Inspiratory Airway 11 Pressure Plateau Pressure 15.1 Respiratory Cycle Inspiratory: 1:2.8 Expiratory Ratio Inspiratory Phase Time 8.0 End-Tidal CO2 26 Static Lung Compliance 43.96 Dynamic Lung Compliance 83.00 Normal Static Lung Compliance 49.00 Coding Level of Care Code 76218 SUB INP/OBS CARE 3/50MIN Diagnoses Acute respiratory failure with hypoxia J96.01 COPD (chronic obstructive pulmonary disease) J44.9 COPD type: unspecified COPD Pleural effusion J90 Encephalopathy G93.40 Multifocal pneumonia J18.9 Acute on chronic combined systolic and diastolic CHF (congestive heart failure) I50.43 PAD (peripheral artery disease) I73.9 UTI (urinary tract infection) N39.0 Diabetes mellitus, type 2 E11.69; Z79.4 Diabetes mellitus complication status: with other specified complication Diabetes mellitus ocean transportation intermediary insulin use: with ocean transportation intermediary use HTN (hypertension) I10 Coronary artery disease I25.10 (2) COPD (chronic obstructive pulmonary disease) COPD type: unspecified COPD Qualified Code(s): J44.9 - Chronic obstructive pulmonary disease, unspecified (9) Diabetes mellitus, type 2 Diabetes mellitus complication status: with other specified complication Diabetes mellitus ocean transportation intermediary insulin use: with mcfp use Qualified Code(s): E11.69 - Type 2 diabetes mellitus with other specified complication; 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
--- NOTE | 2022-11-23 09:07 | Hospitalist Progress Note ---
Date of Service November 23, 2022 Assessment & Plan (1) Encephalopathy: Plan ACTIVE PROBLEM LIST: Acute respiratory failure with hypoxia requiring intubation, extubated succesfully 11/21 COPD with exacerbation, oxygen dependent Pleural effusion status postthoracentesis on 11/03/2022, left-sided, exudate Acute metabolic encephalopathy Sepsis secondary to Multifocal pneumonia-resolved Acute on chronic combined systolic and diastolic heart failure Possible Lyme infection with neurologic involvement, LP declined-complete 21 day course doxycycline. Acute renal failure-resolved hypernatremia, which may have contributed to AMS-resolved. Mixed acid-base disorder-resolved Anemia of chronic disease requiring 2 units of blood to be transfused this admission. New onset thrombocytopenia-resolved, thought secondary to sepsis Peripheral arterial disease Urinary tract infection-treated Diabetes mellitus type 2-chronic, stable. Hypertension-chronic, at goal Coronary artery disease status post CABG-chronic, stable. Severe mitral regurgitation Left bundle branch block Tobacco use-smoking cessation recommended Mood disorder-appears to be at baseline, cont home medications. UTI with Klebsiella, completed antibiotic course, nasal MRSA positive Admitted 10/30 through 11/15, readmitted 11/16. Initial hospital stay was secondary to acute exacerbation of heart failure with acute on chronic respiratory failure. She was continued on Lasix at discharge with outpatient sleep study recommended by pulmonology. Cefdinir was continued for a UTI secondary to Klebsiella. She was readmitted the following day being found down by the daughter with home oxygen not in place and somnolent. Work-up and hospital course as noted above. -mentating at baseline -Oxygenating at baseline today and improved clinically -restart home PO Lasix at fraction (20mg) of home dose -Continue 21 days total course of doxycycline for possible neurologic Lyme involvement, noted RPR is nonreactive -REstart Zyprexa 5 mg p.o. nightly per home regimen -Restart home gabapentin, cont holdint Topamax -Unclear source of acute on chronic anemia, continue PPI therapy and monitor bowel movements with CBC daily. -CAD-chronic, stable. Continue medical management. -Pneumonia-treated and resolved -Smoking cessation recommended Diet: DMII diet DVT prophylaxis: Lovenox CODE STATUS: Full code Dispo: to PCU, therapy recommending acute rehab as a transition to home. I spent a total of 60 minutes coordinating, documenting, and providing care for this patient excluding time spent in the performance of separately billed services Marci Kiser DO [facility] Hospitalist Admission and Anticipated Discharge Date Admission Date: November 16, 2022 Subjective 62-year-old female presented with altered mental status. Head CT negative, brain MRI on 11/20 was negative. Elevated white count with positive Lyme IgM antibodies. She was felt to have underlying sepsis from left-sided pneumonia and was treated for antibiotic therapy which covered both Lyme and pneumonia. CSF sampling was deferred per discussion with ICU attending and family. Acute respiratory failure also considered multifactorial with bilateral pleural effusions secondary to acute on chronic diastolic heart failure in the setting of mitral regurgitation. She was diuresed to maintain negative fluid balance. It was felt that Lyme carditis was unlikely. Noted history of CABG in the past. She continues on medical therapy for CAD. Left-sided pleural effusion also noted with thoracentesis on 11/03/2022. This was exudative. Additionally, given her history of tobacco abuse there was a possibility of COPD flare. Patient reports she is on home oxygen at 4 L/min continuously and uses CPAP for ISAURA. When the patient was found prior to admission she was not on oxygen which may have contributed to her altered mental status. Patient also continues to smoke cigarettes. Daughter is concerned with patient's ability to live independently. Extubated on 11/21 and she is oxygenating at her baseline with an improvement in mental status. She denies any issues today and feels overall well. She is tolerating p.o. Although she is oriented she does not have any recollection of the events prior to the hospital stay or when she was intubated. Physical Exam Physical Exam: CONSTITUTIONAL: WNWD, vitals as above, generally well-appearing, NAD EYES: normal conjunctivae, no scleral icterus ENT: external ear and nose normal, MMM NECK: trachea midline RESPIRATORY: clear to auscultation bilaterally, no crackles, rales or wheezes, normal respiratory effort CARDIOVASCULAR: regular rate and rhythm, S1 and 2 heard without murmurs, gallops or rubs, no JVD, no peripheral edema CHEST: inspection of chest was normal GASTROINTESTINAL: soft, nontender, ND, no guarding MUSCULOSKELETAL: strength 5/5 throughout, head is normocephalic and atraumatic SKIN: warm and dry NEUROLOGIC: CN 2-12 grossly intact, no sensory deficit, normal cognition, normal speech, no tremor PSYCHIATRIC: alert cooperative and oriented to person, place and time. Euthymic mood, makes good eye contact, language grossly intact, recent and adi te memory grossly intact. Results & Data Results & Data Vital Signs (Past 12 Hours) Vital Signs Temp Pulse Resp BP Pulse Ox O2 Del Method O2 Flow Rate 11/23/22 08:30 105 H 17 98 11/23/22 08:30 172/76 H 11/23/22 08:00 104 H 26 H 98 11/23/22 08:00 173/87 H 11/23/22 07:30 172/78 H 11/23/22 07:30 100 H 31 H 99 Nasal Cannula 2 11/23/22 07:01 93 H 18 99 11/23/22 07:01 169/64 H 11/23/22 07:00 92 H 25 H 99 11/23/22 08:00 96 H 11/23/22 06:24 95 H 142/80 H 11/23/22 06:50 97 H 13 96 11/23/22 06:40 94 H 19 100 11/23/22 06:30 94 H 19 98 11/23/22 06:30 142/80 H 11/23/22 06:20 90 25 H 99 11/23/22 06:10 101 H 20 99 11/23/22 06:00 100 H 30 H 100 11/23/22 06:00 166/65 H 11/23/22 05:58 97 H 18 99 11/23/22 05:58 168/75 H 11/23/22 05:50 98 H 31 H 97 11/23/22 05:40 96 H 23 100 11/23/22 05:30 102 H 32 H 98 11/23/22 05:20 102 H 33 H 99 11/23/22 06:09 101 H 166/65 H 11/23/22 05:10 100 H 26 H 99 11/23/22 05:00 99 H 21 100 11/23/22 05:00 160/67 H 11/23/22 04:50 100 H 22 100 11/23/22 04:40 100 H 20 100 11/23/22 04:30 23 99 11/23/22 04:20 107 H 36 H 95 11/23/22 04:10 101 H 20 100 11/23/22 04:00 109 H 27 H 100 11/23/22 04:00 175/111 H 11/23/22 03:50 103 H 20 99 11/23/22 03:40 112 H 27 H 100 11/23/22 03:30 106 H 26 H 100 11/23/22 03:20 114 H 23 99 11/23/22 03:10 107 H 19 98 11/23/22 03:00 109 H 28 H 99 11/23/22 02:50 108 H 20 99 11/23/22 02:40 105 H 19 99 11/23/22 02:30 99 11/23/22 02:20 100 H 27 H 100 11/23/22 02:10 103 H 26 H 98 11/23/22 02:01 107 H 26 H 98 11/23/22 02:01 188/91 H 11/23/22 02:00 100 H 23 98 11/23/22 01:50 99 H 29 H 98 11/23/22 01:40 103 H 20 91 11/23/22 01:30 98 H 31 H 92 11/23/22 01:30 162/82 H 11/23/22 01:20 95 H 20 96 11/23/22 01:10 99 H 23 84 L 11/23/22 01:00 100 H 24 88 L 11/23/22 00:50 96 H 18 91 11/23/22 00:40 98 H 22 94 11/23/22 00:30 92 H 25 H 97 11/23/22 00:30 146/63 H 11/23/22 00:20 93 H 28 H 95 11/23/22 00:10 96 H 24 93 11/23/22 00:00 36.7 C 94 H 23 100 11/23/22 00:00 134/105 H 11/23/22 01:00 94 H 11/22/22 23:54 95 H 11/22/22 23:50 91 H 16 98 11/22/22 23:40 106 H 21 96 11/22/22 23:30 104 H 20 99 11/22/22 23:20 104 H 24 99 11/22/22 23:10 105 H 15 99 11/22/22 23:00 106 H 18 97 11/22/22 22:50 25.3 C L 106 H 17 95 11/22/22 22:40 37.7 C H 106 H 25 H 95 11/22/22 22:30 37.7 C H 105 H 27 H 88 L 11/22/22 22:20 37.7 C H 104 H 26 H 94 11/22/22 22:10 37.7 C H 105 H 24 91 11/22/22 22:00 37.6 C H 103 H 18 97 11/22/22 22:00 187/83 H 11/22/22 21:50 37.6 C H 100 H 22 98 11/22/22 21:40 37.6 C H 101 H 19 96 11/22/22 21:38 186/81 H 11/22/22 21:38 37.6 C H 106 H 28 H 97 11/22/22 21:30 37.6 C H 102 H 25 H 95 11/22/22 21:20 37.6 C H 105 H 31 H 96 11/22/22 21:10 37.5 C 104 H 25 H 97 11/22/22 23:40 106 H 164/76 H Laboratory Results Short CBC 11/23/22 Range/Units 03:47 WBC 8.55 (4.8-10.8) K/ul Hgb 7.4 L (12.0-16.0) g/dl Hct 23.9 L (37.0-47.0) % Plt Count 196 (130-400) K/uL BMP 11/23/22 03:47 Sodium 146 H Potassium 3.3 L Chloride 118 H Carbon Dioxide 19 L BUN 25 H Creatinine 0.80 Glucose 96 Calcium 8.7 Urine 11/22/22 Range/Units 13:14 Urine Color Yellow Urine Appearance Cloudy A (Clear) Urine pH 5.0 (4.5-7.5) Ur Specific Hardy 1.018 (1.000-1.030) Urine Protein 2+ H (Negative) Urine Glucose (UA) Negative (Negative) Medications Administered Current Inpatient Medications Acetaminophen (Acetaminophen Susp 325 Mg/10.15 Ml Udc) 500 mg NG Q6H PRN PRN Reason: Pain or Fever Stop: 12/21/22 10:54 Aspirin (Aspirin 81 Mg Ectab) 81 mg PO DAILY SAMANTHA Stop: 12/24/22 08:59 Dextrose (Dextrose 50% 50 Ml Syringe) 25 - 50 ml IV UD PRN; Protocol PRN Reason: Hypoglycemia Protocol Stop: 12/16/22 23:34 Docusate Sodium (Docusate Sodium 100 Mg Cap) 100 mg PO BID SAMANTHA Stop: 12/23/22 08:59 Duloxetine HCl (Duloxetine Hcl 60 Mg Cap) 60 mg GT DAILY SAMANTHA Stop: 12/21/22 11:59 Last Admin: 11/22/22 10:30 Dose: Not Given Duloxetine HCl (Duloxetine Hcl 30 Mg Cap) 30 mg PO DAILY SAMANTHA Stop: 12/21/22 11:59 Last Admin: 11/22/22 10:30 Dose: Not Given Enoxaparin Sodium (Enoxaparin Inj 40 Mg/0.4 Ml Syr) 40 mg SQ HS SAMANTHA Stop: 12/20/22 20:59 Last Admin: 11/22/22 19:44 Dose: 40 mg Glucagon (Glucagon For Inj 1 Mg Vial) 1 mg SQ UD PRN; Protocol PRN Reason: Hypoglycemia Protocol Stop: 12/16/22 23:34 Glucose (Glucose 10 Tab/Tube) 4 - 8 tab PO UD PRN; Protocol PRN Reason: Hypoglycemia Treatment Stop: 12/16/22 23:34 Glucose (Glucose 40% Gel 15 Gm Tube) 15 - 30 gm PO UD PRN; Protocol PRN Reason: Hypoglycemia Protocol Stop: 12/16/22 23:34 Haloperidol Lactate (Haloperidol Lactate 5 Mg/Ml 1 Ml Vial) 2 mg IV TID SAMANTHA Stop: 12/22/22 20:59 Last Admin: 11/23/22 08:10 Dose: Not Given Hydralazine HCl (Hydralazine Hcl 20 Mg/Ml Vial) 10 mg IV Q4 PRN PRN Reason: SBP>150 Stop: 12/19/22 08:20 Last Admin: 11/22/22 01:03 Dose: 10 mg Pantoprazole Sodium 40 mg/ (Syringe) 10 mls @ 5 mls/min IV BID SAMANTHA Stop: 12/19/22 08:59 Last Admin: 11/23/22 08:11 Dose: 5 mls/min Doxycycline Hyclate 100 mg/ (Dextrose) 100 mls @ 50 mls/hr IV Q12H [facility] Stop: 11/28/22 23:59 Last Infusion: 11/23/22 01:45 Dose: Infused Ceftriaxone Sodium 2,000 mg/ (Dextrose) 50 mls @ 100 mls/hr IV Q24H SAMANTHA Stop: 12/20/22 12:00 Last Infusion: 11/22/22 11:22 Dose: Infused Acetaminophen (Ofirmev) 1,000 mg in 100 mls @ 400 mls/hr IV Q8H PRN PRN Reason: Fever Stop: 11/25/22 11:05 Last Infusion: 11/22/22 13:12 Dose: Infused Parenteral Electrolytes (Plasma-Lyte A Ph 7.4) 1,000 mls @ 70 mls/hr IV .[id number] [facility] Stop: 12/22/22 11:14 Last Admin: 11/23/22 03:56 Dose: 70 mls/hr Vancomycin HCl 1,000 mg/ (Dextrose) 270 mls @ 200 mls/hr IV Q24H [facility] Stop: 11/23/22 16:00 Last Infusion: 11/22/22 15:01 Dose: Infused Magnesium Sulfate/Dextrose (Magnesium Sulfate / D5w) 1 gm in 100 mls @ 50 mls/hr IV 0600 ONE Stop: 11/24/22 07:59 Potassium Phosphate 30 mmol/ (Sodium Chloride) 510 mls @ 100 mls/hr IV 0630 ONE Stop: 11/23/22 11:35 Last Admin: 11/23/22 06:39 Dose: 100 mls/hr Insulin Aspart (Insulin Aspart Per Unit Charge) 0 units SC ACHS [facility] Stop: 12/23/22 11:29 Insulin Glargine (Lantus Per Unit Charge) 0 units SC BID [facility]; Protocol Stop: 12/21/22 09:14 Last Admin: 11/23/22 08:04 Dose: 10 units Ipratropium Preston (Ipratropium Preston Neb Soln 0.02% 2.5 Ml Vial) 0.5 mg INH Q6R PRN PRN Reason: Shortness Of Breath Or Wheezing Stop: 12/19/22 06:59 Ketorolac Tromethamine (Ketorolac Tromethamine 15 Mg/Ml Vial) 15 mg IV Q6H PRN PRN Reason: Mod-Sev Pain (Scale 4-10) Stop: 11/23/22 09:32 Last Admin: 11/18/22 09:57 Dose: 15 mg Levalbuterol HCl (Levalbuterol 1.25 Mg/3 Ml Neb) 1.25 mg NEB Q6R PRN PRN Reason: Shortness Of Breath Or Wheezing Stop: 12/19/22 06:59 Lorazepam (Lorazepam 2 Mg/1 Ml Vial) 0.5 mg IV TODAY@1104 [facility] Stop: 11/23/22 16:00 Last Admin: 11/22/22 19:21 Dose: Not Given Melatonin (Melatonin 3 Mg Tab) 4.5 mg PO HS PRN PRN Reason: insomnia Stop: 12/16/22 23:34 Metoprolol Tartrate (Metoprolol Tartrate 25 Mg Tab) 25 mg OG BID [facility] Stop: 12/20/22 20:59 Last Admin: 11/22/22 10:30 Dose: Not Given Metoprolol Tartrate (Metoprolol Tartrate 1 Mg/Ml Vial) 5 mg IV Q6 [facility] Stop: 12/22/22 11:59 Last Admin: 11/23/22 06:09 Dose: 5 mg Miscellaneous (Carbohydrates For Hypoglycemia ) 15 - 30 gm PO UD PRN PRN Reason: Hypoglycemia Protocol Stop: 12/16/22 23:34 Miscellaneous (Icu Electrolyte Replacement Protocol) 1 each N/A BID@06,18 SAMANTHA; Protocol Stop: 11/26/22 17:59 Last Admin: 11/23/22 06:09 Dose: 1 each Miscellaneous Information (Vancomycin Consult Active) 1 each N/A UD PRN PRN Reason: Consult Stop: 12/17/22 17:25 Miscellaneous Information (Pharmacy Glycemic Mgmt Consult) 1 each N/A UD PRN PRN Reason: Consult Stop: 12/19/22 09:36 Multivitamins/Minerals (Cerovite Adv Formula Tab) 1 tab PO QAM [facility] Stop: 12/23/22 08:59 Olanzapine (Olanzapine 5 Mg Tablet) 5 mg PO HS [facility] Stop: 12/18/22 20:59 Sennosides (Senna 8.6 Mg Tab) 8.6 mg PO QAM [facility] Stop: 12/23/22 08:59 Topiramate (Topiramate 50 Mg Tab) 50 mg PO BID [facility] Stop: 12/21/22 10:59 Last Admin: 11/22/22 10:29 Dose: Not Given
[2022-11-23] MEDS: SENNA 8.6 MG TAB PO SCH (09:15)
[2022-11-23] MEDS: DOCUSATE SODIUM 100 MG CAP PO SCH ×2 (09:15→20:09)
[2022-11-23] MEDS: CEROVITE ADV FORMULA TAB PO SCH (09:15)
[2022-11-23] MEDS: cefTRIAXone SODIUM 2,000 MG in DEXTROSE 5 % MINI-B 50 ML IV SCH (09:18)
--- NOTE | 2022-11-23 11:20 | Communication Note ---
Date of Service: November 23, 2022 interim progress reviewed. Patient is more organized/appropriate, did require mitts overnight for pulling at her monitor leads. No combativeness and able to answer questions. She made some vague statements to the liaison about her muscles feeling funny but was in no acute dystonia. Will follow as want to avoid Cogentin for now as anticholinergic and delirium so dramatically improved. OK to resume Zyprexa 5 mg PO hs when able and once clear taking consistently can taper.
[2022-11-23] MEDS: DOXYCYCLINE HYCLATE 100 MG in D5W MINI-B 100 ML (Q12H) IV SCH ×2 (11:40→22:24)
[2022-11-23] MEDS: VANCOMYCIN HCL 1,000 MG in DEXTROSE 5% 250 ML IV SCH (11:52)
--- NOTE | 2022-11-23 12:43 | Pharmacy Report ---
Pharmacy Glycemic Short Note 2 - Date of Service November 23, 2022 - Glycemic Short BSG Results (Last 24 hours): 11/22/22 11/22/22 11/22/22 16:00 19:39 23:44 Glucose POC Glucose 152 H 76 100 H 11/23/22 11/23/22 11/23/22 03:47 04:13 07:54 Glucose 96 POC Glucose 108 H 119 H 11/23/22 11:45 Glucose POC Glucose 141 H OUTPATIENT ANTIDIABETIC REGIMEN: * Basaglar 35 units SC qAM * Novolog TID SSI HbA1c: 9.4% (10/31/22) ASSESSMENT: 11/23: * BSGs 233-113-171-76-100 mg/dL and received 10 units of basal and 4 units of bolus yesterday. * Patient was extubated yesterday and a clear liquid diet was ordered this morning. * Will continue with a conservative basal scale today since PO take is still minimal. 11/21: * BSGs [phone]/dL. Received 35 units of basal and 10 units of bolus insulin yesterday. * Intubated/sedated. Continues on antibiotics and tube feeds. * Will scale basal based upon BSG given on/off tube feeds and possibility of becoming NPO. Continue current novolog parameters. 11/20/22: * Patient intubated today. Precedex off, propofol and fentanyl started. * Peptamen intense VHP (78 g CHO/L) initiated at 10 mL/hr (goal rate of 45 mL/hr) * Gave large basal dose this morning - will utilize short-acting for rest of today and reassess basal need tomorrow * Remains on broad spectrum antibiotics (vanco/cefepime) 11/19/22: * JETT is a 62 year old female known to pharmacy glycemic consult service * Patient has complicated PMH w/ multiple comorbidities including CAD, hx endocarditis, valvular heart disease, COPD, anemia, T2DM, etc. * Admitted on 11/16/22 w/ encephalopathy (likely multifactorial in nature) * BSGs have been labile since admission, pharmacy consulted for glycemic management on 11/19 * Currently receiving broad spectrum antibiotics (vancomycin/cefepime) * Precedex infusing PLAN FOR INPATIENT GLYCEMIC CONTROL: * Basal insulin * Lantus BID per scale (515/15 units based upon BSG), received 10 units this morning * Bolus insulin * NovoLog per scale ACHS or Q6hrs while NPO * Goal Range: Low 110 mg/dL - High 140 mg/dL * Correction Factor: 25 mg/dL/unit * Nutritional / Prandial insulin per carb ratio of 1 unit per 8 grams CHO consumed
[2022-11-23] MEDS: ENOXAPARIN INJ 40 MG/0.4 ML SYR SQ SCH (20:10)
[2022-11-24] MEDS: MELATONIN 3 MG TAB PO PRN ×2 (00:18→20:27)
[2022-11-24] MEDS: METOPROLOL TARTRATE 1 MG/ML VIAL IV SCH ×2 (00:18→06:22)
[2022-11-24 00:48] LABS: Babesia microti DNA Not Detected (Not Detected)
[2022-11-24] MEDS ORDERED: MAGNESIUM SULFATE / D5W 1 GM/100 ML BAG IV ONE (06:00)
[2022-11-24 07:43] LABS: BUN Creatinine Ratio 19.3 (10-20); Creatinine Clr Calc Pharmacy 59.3 ml/min; Est GFR (African American) 80.5 ml/min; Est GFR (Non-African American) 69.4 ml/min; Phosphorus 2.5 mg/dl (2.5-4.9); Potassium 3.5 mmol/L (3.5-5.1)
[2022-11-24] MEDS: INSULIN ASPART PER UNIT CHARGE SC SCH ×4 (08:27→20:38)
[2022-11-24] MEDS: ASPIRIN 81 MG ECTAB PO SCH (08:29)
[2022-11-24] MEDS: CEROVITE ADV FORMULA TAB PO SCH (08:29)
[2022-11-24] MEDS: DULoxetine HCL 30 MG CAP PO SCH (08:30)
[2022-11-24] MEDS: lisinopril 5 MG TAB PO SCH (08:32)
[2022-11-24] MEDS: ATORVASTATIN 40 MG TAB PO SCH (08:33)
[2022-11-24] MEDS: DOCUSATE SODIUM 100 MG CAP PO SCH ×2 (08:34→20:27)
[2022-11-24] MEDS: SENNA 8.6 MG TAB PO SCH (08:35)
[2022-11-24] MEDS: PANTOprazole 40 MG in SYRINGE 0 ML IV SCH (08:35)
[2022-11-24] MEDS: LANTUS PER UNIT CHARGE SC SCH ×2 (08:36→21:21)
[2022-11-24] MEDS: CLOPIDOGREL BISULFATE 75 MG TAB PO SCH (11:17)
[2022-11-24] MEDS: GABAPENTIN 300 MG CAP PO SCH ×2 (11:17→20:24)
[2022-11-24] MEDS: DOXYCYCLINE HYCLATE 100 MG CAP PO SCH ×2 (11:18→20:24)
[2022-11-24] MEDS: METOPROLOL SUCC 50MG EXT REL TAB PO SCH ×2 (11:18→20:24)
[2022-11-24] MEDS: FUROSEMIDE 20 MG TAB PO SCH (11:19)
--- NOTE | 2022-11-24 12:13 | Electrocardiogram Report ---
Test Reason : Blood Pressure : / mmHG Vent. Rate : 100 BPM Atrial Rate : 100 BPM P-R Int : 138 ms QRS Dur : 090 ms QT Int : 382 ms P-R-T Axes : 062 079 064 degrees QTc Int : 492 ms Normal sinus rhythm Prolonged QT Abnormal ECG When compared with ECG of 22-NOV-2022 13:56, No significant change was found Confirmed by Macario Candelaria ([id number]) on 11/24/2022 12:12:46 PM Referred By: REFERRED SELF Confirmed By:Macario Candelaria
[2022-11-24] MEDS: NICOTINE 21 MG/24 HR TDSY TD SCH (14:27)
--- NOTE | 2022-11-24 16:31 | Hospitalist Progress Note ---
Date of Service November 24, 2022 Assessment & Plan (1) Encephalopathy: Plan ACTIVE PROBLEM LIST: Acute respiratory failure with hypoxia requiring intubation, extubated succesfully 11/21 COPD with exacerbation, oxygen dependent Pleural effusion status postthoracentesis on 11/03/2022, left-sided, exudate Acute metabolic encephalopathy Sepsis secondary to Multifocal pneumonia-resolved Acute on chronic combined systolic and diastolic heart failure Possible Lyme infection with neurologic involvement, LP declined-complete 21 day course doxycycline. Acute renal failure-resolved hypernatremia, which may have contributed to AMS-resolved. Mixed acid-base disorder-resolved Anemia of chronic disease requiring 2 units of blood to be transfused this admission. New onset thrombocytopenia-resolved, thought secondary to sepsis Peripheral arterial disease Urinary tract infection-treated Diabetes mellitus type 2-chronic, stable. Hypertension-chronic, at goal Coronary artery disease status post CABG-chronic, stable. Severe mitral regurgitation Left bundle branch block Tobacco use-smoking cessation recommended Mood disorder-appears to be at baseline, cont home medications. UTI with Klebsiella, completed antibiotic course, nasal MRSA positive Admitted 10/30 through 11/15, readmitted 11/16. Initial hospital stay was secondary to acute exacerbation of heart failure with acute on chronic respiratory failure. She was continued on Lasix at discharge with outpatient sleep study recommended by pulmonology. Cefdinir was continued for a UTI secondary to Klebsiella and has completed the antibiotic course. She was readmitted the following day being found down by the daughter with home oxygen not in place and somnolent. Work-up and hospital course as noted above. -mentating at baseline -Oxygenating at baseline today and improved clinically -restart home PO Lasix at fraction (20mg) of home dose -Continue 21 days total course of doxycycline for possible neurologic Lyme involvement, noted RPR is nonreactive -Restart Zyprexa 5 mg p.o. nightly per home regimen -Restart home gabapentin, cont holding Topamax -Unclear source of acute on chronic anemia, continue PPI therapy and monitor bowel movements with CBC daily. -CAD-chronic, stable. Continue medical management. -Pneumonia-treated and resolved -Smoking cessation recommended Diet: DMII diet DVT prophylaxis: Lovenox CODE STATUS: Full code Dispo: to PCU, therapy recommending acute rehab as a transition to home. She will require additional review by [facility] given mental health history--this process has been requested and is being coordinated by case management. I spent a total of 60 minutes coordinating, documenting, and providing care for this patient excluding time spent in the performance of separately billed servDO Aly [facility] Hospitalist Admission and Anticipated Discharge Date Admission Date: November 16, 2022 Subjective 62-year-old female presented with altered mental status. Head CT negative, brain MRI on 11/20 was negative. Elevated white count with positive Lyme IgM antibodies. She was felt to have underlying sepsis from left-sided pneumonia and was treated for antibiotic therapy which covered both Lyme and pneumonia. CSF sampling was deferred per discussion with ICU attending and family. Acute respiratory failure also considered multifactorial with contributing factors including bilateral pleural effusions secondary to acute on chronic diastolic h eart failure in the setting of mitral regurgitation. She was diuresed to maintain negative fluid balance. It was felt that Lyme carditis was unlikely. Noted history of CABG in the past. She continues on medical therapy for CAD. Left-sided pleural effusion also noted with thoracentesis on 11/03/2022. This was exudative. Additionally, given her history of tobacco abuse there was a possibility of COPD flare. Patient reports she is on home oxygen at 4 L/min continuously and uses CPAP for ISAURA. When the patient was found prior to admission she was not on oxygen which may have contributed to her altered mental state. She also recently lost her grandson to a fentanyl overdose which is causing her additional anxiety. Patient also continues to smoke cigarettes, even with oxygen in place increasing the risk of explosion. Per staff reports, daughter is concerned with patient's ability to live independently. Extubated on 11/21 and she is oxygenating at her baseline with an improvement in mental status. Today she reports feeling her veins popping all over her body She is fatigued and stressed and wants to visit her grandson's gravesite Physical Exam Physical Exam: CONSTITUTIONAL: WNWD, vitals as above, generally well-appearing, NAD EYES: normal conjunctivae, no scleral icterus ENT: external ear and nose normal, MMM NECK: trachea midline RESPIRATORY: clear to auscultation bilaterally, no crackles, rales or wheezes, normal respiratory effort CARDIOVASCULAR: regular rate and rhythm, S1 and 2 heard without murmurs, gallops or rubs, no JVD, no peripheral edema CHEST: inspection of chest was normal GASTROINTESTINAL: soft, nontender, ND, no guarding MUSCULOSKELETAL: strength 5/5 throughout, head is normocephalic and atraumatic SKIN: warm and dry, ecchymosis on arms NEUROLOGIC: CN 2-12 grossly intact, no sensory deficit, normal cognition, normal speech, no tremor PSYCHIATRIC: alert cooperative and oriented to person, place and time. Euthymic mood, makes good eye contact, language grossly intact, recent and remote memory grossly intact. Results & Data Results & Data Vital Signs (Past 12 Hours) Vital Signs Temp Pulse Pulse Resp BP BP Pulse Ox 11/24/22 15:22 36.2 C L 62 16 99/61 L 98 11/24/22 11:26 37.0 C 92 H 18 157/75 H 100 11/24/22 10:23 98 H 11/24/22 08:00 11/24/22 07:33 36.7 C 92 H 18 166/78 H 95 11/24/22 06:36 96 H 152/59 H 11/24/22 06:22 101 H 161/69 H 11/24/22 06:20 101 H 161/69 H O2 Del Method O2 Flow Rate 11/24/22 15:22 Nasal Cannula 4 11/24/22 11:26 Nasal Cannula 4 11/24/22 10:23 11/24/22 08:00 Nasal Cannula 4 11/24/22 07:33 Nasal Cannula 4 11/24/22 06:36 11/24/22 06:22 11/24/22 06:20 Laboratory Results BMP 11/24/22 07:06 Sodium 144 Potassium 3.5 Chloride 118 H Carbon Dioxide 21 BUN 17 Creatinine 0.88 Glucose 109 H Calcium 9.0 Medications Administered Current Inpatient Medications Aspirin (Aspirin 81 Mg Ectab) 81 mg PO DAILY [facility]AN[facility]A Stop: 12/24/22 08:59 Last Admin: 11/24/22 08:29 Dose: 81 mg Atorvastatin Calcium (Atorvastatin 40 Mg Tab) 80 mg PO DAILY [facility] Stop: 12/24/22 08:59 Last Admin: 11/24/22 08:33 Dose: 80 mg Clopidogrel Bisulfate (Clopidogrel Bisulfate 75 Mg Tab) 75 mg PO QAM [facility] Stop: 12/24/22 10:29 Last Admin: 11/24/22 11:17 Dose: 75 mg Dextrose (Dextrose 50% 50 Ml Syringe) 25 - 50 ml IV UD PRN; Protocol PRN Reason: Hypoglycemia Protocol Stop: 12/16/22 23:34 Docusate Sodium (Docusate Sodium 100 Mg Cap) 100 mg PO BID [facility] Stop: 12/23/22 08:59 Last Admin: 11/24/22 08:34 Dose: 100 mg Doxycycline Hyclate (Doxycycline Hyclate 100 Mg Cap) 100 mg PO BID [facility] Stop: 12/04/22 10:29 Last Admin: 11/24/22 11:18 Dose: 100 mg Duloxetine HCl (Duloxetine Hcl 30 Mg Cap) 90 mg PO QAM [facility]A Stop: 12/24/22 08:59 Last Admin: 11/24/22 08:30 Dose: 90 mg Enoxaparin Sodium (Enoxaparin Inj 40 Mg/0.4 Ml Syr) 40 mg SQ HS [facility] Stop: 12/20/22 20:59 Last Admin: 11/23/22 20:10 Dose: 40 mg Furosemide (Furosemide 20 Mg Tab) 20 mg PO DAILY [facility] Stop: 12/24/22 10:29 Last Admin: 11/24/22 11:19 Dose: 20 mg Gabapentin (Gabapentin 300 Mg Cap) 300 mg PO BID [facility] Stop: 12/24/22 10:29 Last Admin: 11/24/22 11:17 Dose: 300 mg Glucagon (Glucagon For Inj 1 Mg Vial) 1 mg SQ UD PRN; Protocol PRN Reason: Hypoglycemia Protocol Stop: 12/16/22 23:34 Glucose (Glucose 10 Tab/Tube) 4 - 8 tab PO UD PRN; Protocol PRN Reason: Hypoglycemia Treatment Stop: 12/16/22 23:34 Glucose (Glucose 40% Gel 15 Gm Tube) 15 - 30 gm PO UD PRN; Protocol PRN Reason: Hypoglycemia Protocol Stop: 12/16/22 23:34 Acetaminophen (Ofirmev) 1,000 mg in 100 mls @ 400 mls/hr IV Q8H PRN PRN Reason: Fever Stop: 11/25/22 11:05 Last Infusion: 11/22/22 13:12 Dose: Infused Insulin Aspart (Insulin Aspart Per Unit Charge) 0 units SC ACHS [facility] Stop: 12/23/22 11:29 Last Admin: 11/24/22 12:20 Dose: 6 units Insulin Glargine (Lantus Per Unit Charge) 0 units SC BID [facility]; Protocol Stop: 12/21/22 09:14 Last Admin: 11/24/22 08:36 Dose: 10 units Ipratropium Wise (Ipratropium [place] Neb Soln 0.02% 2.5 Ml Vial) 0.5 mg INH Q6R PRN PRN Reason: Shortness Of Breath Or Wheezing Stop: 12/19/22 06:59 Isosorbide Mononitrate (Isosorbide [place] Extended Rel 30 Mg Tabcr) [facility] [place] Stop: 12/25/22 08:59 Levalbuterol HCl (Levalbuterol 1.25 Mg/3 Ml Neb) 1.25 mg NEB Q6R PRN PRN Reason: Shortness Of Breath Or Wheezing Stop: 12/19/22 06:59 Lisinopril (Lisinopril 5 Mg Tab) 5 mg PO [facility] Stop: 12/24/22 08:59 Last Admin: 11/24/22 08:32 Dose: 5 mg Melatonin (Melatonin 3 Mg Tab) 4.5 mg PO HS PRN PRN Reason: insomnia Stop: 12/16/22 23:34 Last Admin: 11/24/22 00:18 Dose: 4.5 mg Metoprolol Succinate (Metoprolol Succ 50mg Ext Rel Tab) 100 mg PO [facility] Stop: 12/24/22 10:29 Last Admin: 11/24/22 11:18 Dose: 100 mg Metoprolol Succinate (Metoprolol Succ 50mg Ext Rel Tab) 50 mg PO [facility] Stop: 12/24/22 20:59 Miscellaneous (Carbohydrates For Hypoglycemia ) 15 - 30 gm PO UD PRN PRN Reason: Hypoglycemia Protocol Stop: 12/16/22 23:34 Miscellaneous (Remove Nicoderm Patch) 1 each N/A DAILY@0859 [facility] Stop: 12/25/22 08:58 Multivitamins/Minerals (Cerovite Adv Formula Tab) 1 tab [facility] [place] Stop: 12/23/22 08:59 Last Admin: 11/24/22 08:29 Dose: 1 tab Nicotine (Nicotine 21 Mg/24 Hr Tdsy) 21 mg TD [facility] [place] Stop: 12/24/22 13:29 Last Admin: 11/24/22 14:27 Dose: 21 mg Olanzapine (Olanzapine 5 Mg Tablet) 5 mg PO HS [facility] Stop: 12/18/22 20:59 Pantoprazole Sodium (Pantoprazole 40 Mg Tab) 40 mg [facility] [place] Stop: 12/25/22 08:59 Ropinirole HCl (Ropinirole Hcl 1 Mg Tablet) 1 mg PO QPM [facility] Stop: 12/24/22 20:59 Sennosides (Senna 8.6 Mg Tab) 8.6 mg PO QAM [facility] Stop: 12/23/22 08:59 Last Admin: 11/24/22 08:35 Dose: 8.6 mg Topiramate (Topiramate 50 Mg Tab) 50 mg PO BID [facility] Stop: 12/21/22 10:59 Last Admin: 11/22/22 10:29 Dose: Not Given
[2022-11-24] MEDS: ENOXAPARIN INJ 40 MG/0.4 ML SYR SQ SCH (20:23)
[2022-11-24] MEDS: rOPINIRole HCL 1 MG TABLET PO SCH (20:23)
[2022-11-24] MEDS: OLANZapine 5 MG TABLET PO SCH (20:24)
[2022-11-24] MEDS ORDERED: SIMETHICONE 80 MG CHEW PO ONE (22:44)
[2022-11-25] MEDS: ACETAMINOPHEN 325 MG TAB PO PRN (01:33)
[2022-11-25 07:33] LABS: Basophils # (auto) 0.03 K/uL (0.00-0.20); Basophils % (auto) 0.4 %; Eosinophils # (auto) 0.17 K/uL (0.00-0.50); Eosinophils % (auto) 2.2 %; Hematocrit (blood only) 24.2 % (37.0-47.0); Hemoglobin 7.3 g/dl (12.0-16.0); Immature Granulocytes # (auto) 0.26 K/uL (0.01-0.20); Immature Granulocytes % (auto) 3.3 %; Lymphocytes % (auto) 24.3 %; Mean Corpuscular Hemoglobin 29.7 pg (25.0-34.0); Mean Corpuscular Hgb Conc 30.2 g/dL (32.0-36.0); Mean Corpuscular Volume 98.4 fL (80.0-100.0); Mean Platelet Volume 12.5 fL (9.4-12.4); Neutrophils # (auto) 3.67 K/uL (1.40-6.50); Neutrophils % (auto) 46.8 %; Platelet Count 214 K/uL (130-400); RDW Coefficient of Variation 18.5 % (11.5-14.5); RDW Standard Deviation 63.7 fL (36.4-46.3); Red Blood Count 2.46 M/uL (4.20-5.40); White Blood Count 7.83 K/ul (4.8-10.8)
[2022-11-25 07:53] LABS: BUN Creatinine Ratio 21.7 (10-20); Calcium 9.3 mg/dl (8.6-10.3); Creatinine Clr Calc Pharmacy 62.8 ml/min; Est GFR (African American) 86.4 ml/min; Est GFR (Non-African American) 74.5 ml/min; Magnesium 1.9 mg/dl (1.7-2.4); Phosphorus 3.8 mg/dl (2.5-4.9); Potassium 3.5 mmol/L (3.5-5.1)
[2022-11-25 07:56] LABS: Anisocytosis Present; Polychromasia 1+
[2022-11-25] MEDS: INSULIN ASPART PER UNIT CHARGE SC SCH ×4 (08:15→21:56)
[2022-11-25] MEDS: LANTUS PER UNIT CHARGE SC SCH ×2 (08:16→21:56)
[2022-11-25] MEDS: GABAPENTIN 300 MG CAP PO SCH ×2 (08:29→21:49)
[2022-11-25] MEDS: ASPIRIN 81 MG ECTAB PO SCH (08:30)
[2022-11-25] MEDS: DOXYCYCLINE HYCLATE 100 MG CAP PO SCH ×2 (08:30→21:49)
[2022-11-25] MEDS: ATORVASTATIN 40 MG TAB PO SCH (08:30)
[2022-11-25] MEDS: DULoxetine HCL 30 MG CAP PO SCH (08:31)
[2022-11-25] MEDS: SENNA 8.6 MG TAB PO SCH (08:32)
[2022-11-25] MEDS: lisinopril 5 MG TAB PO SCH (08:32)
[2022-11-25] MEDS: CEROVITE ADV FORMULA TAB PO SCH (08:32)
[2022-11-25] MEDS: METOPROLOL SUCC 50MG EXT REL TAB PO SCH ×2 (08:33→21:50)
[2022-11-25] MEDS: FUROSEMIDE 20 MG TAB PO SCH (08:33)
[2022-11-25] MEDS: PANTOprazole 40 MG TAB PO SCH (08:34)
[2022-11-25] MEDS: ISOSORBIDE MONO EXTENDED REL 30 MG TABCR PO SCH (08:34)
[2022-11-25] MEDS: CLOPIDOGREL BISULFATE 75 MG TAB PO SCH (08:34)
--- NOTE | 2022-11-25 08:38 | Hospitalist Progress Note ---
Date of Service November 25, 2022 Assessment & Plan (1) Encephalopathy: Plan ACTIVE PROBLEM LIST: Acute respiratory failure with hypoxia requiring intubation, extubated succesfully 11/21 COPD with exacerbation, oxygen dependent Pleural effusion status postthoracentesis on 11/03/2022, left-sided, exudate Acute metabolic encephalopathy Sepsis secondary to Multifocal pneumonia-resolved Acute on chronic combined systolic and diastolic heart failure Possible Lyme infection with neurologic involvement, LP declined-complete 21 day course doxycycline. Acute renal failure-resolved hypernatremia, which may have contributed to AMS-resolved. Mixed acid-base disorder-resolved Anemia of chronic disease requiring 2 units of blood to be transfused this admission. New onset thrombocytopenia-resolved, thought secondary to sepsis Peripheral arterial disease Urinary tract infection-treated Diabetes mellitus type 2-chronic, stable. Hypertension-chronic, at goal Coronary artery disease status post CABG-chronic, stable. Severe mitral regurgitation Left bundle branch block Tobacco use-smoking cessation recommended Mood disorder-appears to be at baseline, cont home medications. UTI with Klebsiella, completed antibiotic course, nasal MRSA positive Admitted 10/30 through 11/15, readmitted 11/16. Initial hospital stay was secondary to acute exacerbation of heart failure with acute on chronic respiratory failure. She was continued on Lasix at discharge with outpatient sleep study recommended by pulmonology. Cefdinir was continued for a UTI secondary to Klebsiella and has completed the antibiotic course. She was readmitted the following day being found down by the daughter with home oxygen not in place and somnolent. Work-up and hospital course as noted above. -mentating at baseline -Oxygenating at baseline today and improved clinically -restart home PO Lasix at fraction (20mg) of home dose -Continue 21 days total course of doxycycline for possible neurologic Lyme involvement, noted RPR is nonreactive -Cont Zyprexa 5 mg p.o. nightly per home regimen -Cont home gabapentin, restart Topamax -Unclear source of acute on chronic anemia, continue PPI therapy and monitor bowel movements with CBC daily. Minimize phlebotomy. -CAD/PAD-chronic, stable. Continue medical management. -Pneumonia-treated and resolved -Smoking cessation recommended-nicotine patch started Diet: DMII diet DVT prophylaxis: Lovenox CODE STATUS: Full code Dispo: to PCU, therapy recommending acute rehab as a transition to home. She will require additional review by [facility] given mental health history--this process has been requested and is being coordinated by case management. I spent a total of 60 minutes coordinating, documenting, and providing care for this patient excluding time spent in the performance of separately billed services Marci Kiser DO [facility] Hospitalist Admission and Anticipated Discharge Date Admission Date: November 16, 2022 Subjective 62-year-old female presented with altered mental status. Head CT negative, brain MRI on 11/20 was negative. Elevated white count with positive Lyme IgM antibodies. She was felt to have underlying sepsis from left-sided pneumonia and was treated for antibiotic therapy which covered both Lyme and pneumonia. CSF sampling was deferred per discussion with ICU attending and family. Acute respiratory failure also considered multifactorial with contributing factors including bilateral pleural effusions secondary to acute on chronic diastolic heart failure in the setting of mitral regurgitation. She was diuresed to maintain negative fluid balance. It was felt that Lyme carditis was unlikely. Noted history of CABG in the past. She continues on medical therapy for CAD. Left-sided pleural effusion also noted with thoracentesis on 11/03/2022. This was exudative. Additionally, given her history of tobacco abuse there was a possibility of COPD flare. Patient reports she is on home oxygen at 4 L/min continuously and uses CPAP for ISAURA. When the patient was found prior to admission she was not on oxygen which may have contributed to her altered mental state. She also recently lost her grandson to a fentanyl overdose which is causing her additional anxiety. Patient also continues to smoke cigarettes, even with oxygen in place increasing the risk of explosion. Per staff reports, daughter is concerned with patient's ability to live independently. Extubated on 11/21 and she is oxygenating at her baseline with an improvement in mental status. Now that she is back on her home meds her random symptoms expressed yesterday are improved Still remaining mentally clear but fatigued Awaiting target evaluation prior to SNF No additional issues. Physical Exam Physical Exam: CONSTITUTIONAL: WNWD, vitals as above, generally well-appearing, NAD EYES: normal conjunctivae, no scleral icterus ENT: external ear and nose normal, MMM NECK: trachea midline RESPIRATORY: clear to auscultation bilaterally, no crackles, rales or wheezes, normal respiratory effort CARDIOVASCULAR: regular rate and rhythm, S1 and 2 heard without murmurs, gallops or rubs, no JVD, no peripheral edema CHEST: inspection of chest was normal GASTROINTESTINAL: soft, nontender, ND, no guarding MUSCULOSKELETAL: strength 5/5 throughout, head is normocephalic and atraumatic SKIN: warm and dry, ecchymosis on arms NEUROLOGIC: CN 2-12 grossly intact, no sensory deficit, normal cognition, normal speech, no tremor PSYCHIATRIC: alert cooperative and oriented to person, place and time. Euthymic mood, makes good eye contact, language grossly intact, recent and remote memory grossly intact. Results & Data Results & Data Vital Signs (Past 12 Hours) Vital Signs Temp Pulse Pulse Resp BP Pulse Ox O2 Del Method 11/25/22 07:27 36.4 C L 71 16 137/68 93 Nasal Cannula 11/25/22 03:52 36.3 C L 68 18 124/67 92 Nasal Cannula 11/24/22 22:06 69 11/24/22 22:35 36.9 C 70 16 101/62 95 Nasal Cannula O2 Flow Rate 11/25/22 07:27 3 11/25/22 03:52 11/24/22 22:06 11/24/22 22:35 3 Laboratory Results Short CBC 11/25/22 Range/Units 06:47 WBC 7.83 (4.8-10.8) K/ul Hgb 7.3 L (12.0-16.0) g/dl Hct 24.2 L (37.0-47.0) % Plt Count 214 (130-400) K/uL [facility] 11/25/22 06:47 Sodium 143 Potassium 3.5 Chloride 116 H Carbon Dioxide 23 BUN 18 Creatinine 0.83 Glucose 76 Calcium 9.3 Medications Administered Current Inpatient Medications Acetaminophen (Acetaminophen 325 Mg Tab) 650 mg PO Q4H PRN PRN Reason: Pain or Fever Stop: 12/25/22 01:22 Last Admin: 11/25/22 01:33 Dose: 650 mg Aspirin (Aspirin 81 Mg Ectab) 81 mg PO DAILY [facility] Stop: 12/24/22 08:59 Last Admin: 11/25/22 08:30 Dose: 81 mg Atorvastatin Calcium (Atorvastatin 40 Mg Tab) 80 mg PO DAILY [facility] Stop: 12/24/22 08:59 Last Admin: 11/25/22 08:30 Dose: 80 mg Clopidogrel Bisulfate (Clopidogrel Bisulfate 75 Mg Tab) 75 mg PO QAM [facility] Stop: 12/24/22 10:29 Last Admin: 11/25/22 08:34 Dose: 75 mg Dextrose (Dextrose 50% 50 Ml Syringe) 25 - 50 ml IV UD PRN; Protocol PRN Reason: Hypoglycemia Protocol Stop: 12/16/22 23:34 Docusate Sodium (Docusate Sodium 100 Mg Cap) 100 mg PO BID [facility] Stop: 12/23/22 08:59 Last Admin: 11/24/22 20:27 Dose: 100 mg Doxycycline Hyclate (Doxycycline Hyclate 100 Mg Cap) 100 mg PO BID [facility] Stop: 12/04/22 10:29 Last Admin: 11/25/22 08:30 Dose: 100 mg Duloxetine HCl (Duloxetine Hcl 30 Mg Cap) 90 mg PO QAM [facility] Stop: 12/24/22 08:59 Last Admin: 11/25/22 08:31 Dose: 90 mg Enoxaparin Sodium (Enoxaparin Inj 40 Mg/0.4 Ml Syr) 40 mg SQ HS [facility] Stop: 12/20/22 20:59 Last Admin: 11/24/22 20:23 Dose: 40 mg Furosemide (Furosemide 20 Mg Tab) 20 mg PO DAILY [facility] Stop: 12/24/22 10:29 Last Admin: 11/25/22 08:33 Dose: 20 mg Gabapentin (Gabapentin 300 Mg Cap) 300 mg PO BID [facility] Stop: 12/24/22 10:29 Last Admin: 11/25/22 08:29 Dose: 300 mg Glucagon (Glucagon For Inj 1 Mg Vial) 1 mg SQ UD PRN; Protocol PRN Reason: Hypoglycemia Protocol Stop: 12/16/22 23:34 Glucose (Glucose 10 Tab/Tube) 4 - 8 tab PO UD PRN; Protocol PRN Reason: Hypoglycemia Treatment Stop: 12/16/22 23:34 Glucose (Glucose 40% Gel 15 Gm Tube) 15 - 30 gm PO UD PRN; Protocol PRN Reason: Hypoglycemia Protocol Stop: 12/16/22 23:34 Insulin Aspart (Insulin Aspart Per Unit Charge) 0 units SC ACHS [facility] Stop: 12/23/22 11:29 Last Admin: 11/25/22 08:15 Dose: 5 units Insulin Glargine (Lantus Per Unit Charge) 0 units SC BID [facility]; Protocol Stop: 12/21/22 09:14 Last Admin: 11/25/22 08:16 Dose: 5 units Ipratropium [place] (Ipratropium [place] Neb Soln 0.02% 2.5 Ml Vial) 0.5 mg INH Q6R PRN PRN Reason: Shortness Of Breath Or Wheezing Stop: 12/19/22 06:59 Isosorbide Mononitrate (Isosorbide [place] Extended Rel 30 Mg Tabcr) [facility] [place] [facility] [place] Stop: 12/25/22 08:59 Last Admin: 11/25/22 08:34 Dose: 30 mg Levalbuterol HCl (Levalbuterol 1.25 Mg/3 Ml Neb) 1.25 mg NEB Q6R PRN PRN Reason: Shortness Of Breath Or Wheezing Stop: 12/19/22 06:59 Lisinopril (Lisinopril 5 Mg Tab) 5 mg PO [facility] Stop: 12/24/22 08:59 Last Admin: 11/25/22 08:32 Dose: 5 mg Melatonin (Melatonin 3 Mg Tab) 4.5 mg PO HS PRN PRN Reason: insomnia Stop: 12/16/22 23:34 Last Admin: 11/24/22 20:27 Dose: 4.5 mg Metoprolol Succinate (Metoprolol Succ 50mg Ext Rel Tab) 100 mg PO [facility] Stop: 12/24/22 10:29 Last Admin: 11/25/22 08:33 Dose: 100 mg Metoprolol Succinate (Metoprolol Succ 50mg Ext Rel Tab) 50 mg PO [facility] Stop: 12/24/22 20:59 Last Admin: 11/24/22 20:24 Dose: 50 mg Miscellaneous (Carbohydrates For Hypoglycemia ) 15 - 30 gm PO UD PRN PRN Reason: Hypoglycemia Protocol Stop: 12/16/22 23:34 Miscellaneous (Remove Nicoderm Patch) 1 each N/A DAILY@0859 [facility] Stop: 12/25/22 08:58 Multivitamins/Minerals (Cerovite Adv Formula Tab) 1 tab PO [facility] Stop: 12/23/22 08:59 Last Admin: 11/25/22 08:32 Dose: 1 tab Nicotine (Nicotine 21 Mg/24 Hr Tdsy) 21 mg TD [facility] [place] [facility] [place]: 12/24/22 13:29 Last Admin: 11/24/22 14:27 Dose: 21 mg Olanzapine (Olanzapine 5 Mg Tablet) 5 mg PO [facility] Stop: 12/18/22 20:59 Last Admin: 11/24/22 20:24 Dose: 5 mg Pantoprazole Sodium (Pantoprazole 40 Mg Tab) 40 mg PO QAM [facility] Stop: 12/25/22 08:59 Last Admin: 11/25/22 08:34 Dose: 40 mg Ropinirole HCl (Ropinirole Hcl 1 Mg Tablet) 1 mg PO QPM [facility] Stop: 12/24/22 20:59 Last Admin: 11/24/22 20:23 Dose: 1 mg Sennosides (Senna 8.6 Mg Tab) 8.6 mg PO QAM [facility] Stop: 12/23/22 08:59 Last Admin: 11/25/22 08:32 Dose: 8.6 mg Topiramate (Topiramate 50 Mg Tab) 50 mg PO BID [facility] Stop: 12/21/22 10:59 Last Admin: 11/22/22 10:29 Dose: Not Given
[2022-11-25] MEDS: NICOTINE 21 MG/24 HR TDSY TD SCH (08:39)
[2022-11-25] MEDS: DOCUSATE SODIUM 100 MG CAP PO SCH ×2 (08:39→21:51)
--- NOTE | 2022-11-25 14:51 | Electrocardiogram Report ---
Test Reason : Blood Pressure : / mmHG Vent. Rate : 070 BPM Atrial Rate : 070 BPM P-R Int : 138 ms QRS Dur : 090 ms QT Int : 422 ms P-R-T Axes : 057 072 061 degrees QTc Int : 455 ms Normal sinus rhythm Normal ECG When compared with ECG of 23-NOV-2022 16:17, No significant change was found Confirmed by Macario Candelaria ([id number]) on 11/25/2022 2:51:32 PM Referred By: REFERRED SELF Confirmed By:Macario Candelaria
[2022-11-25] MEDS: TOPIRAMATE 50 MG TAB PO SCH (21:48)
[2022-11-25] MEDS: ENOXAPARIN INJ 40 MG/0.4 ML SYR SQ SCH (21:49)
[2022-11-25] MEDS: rOPINIRole HCL 1 MG TABLET PO SCH (21:50)
[2022-11-25] MEDS: OLANZapine 5 MG TABLET PO SCH (21:50)
[2022-11-25] MEDS: MELATONIN 3 MG TAB PO PRN (21:55)
[2022-11-26 07:15] LABS: BUN Creatinine Ratio 23.3 (10-20); Calcium 9.8 mg/dl (8.6-10.3); Creatinine Clr Calc Pharmacy 60.6 ml/min; Est GFR (African American) 82.7 ml/min; Est GFR (Non-African American) 71.4 ml/min; Magnesium 1.8 mg/dl (1.7-2.4); Phosphorus 5.3 mg/dl (2.5-4.9); Potassium 4.1 mmol/L (3.5-5.1)
[2022-11-26] MEDS: ASPIRIN 81 MG ECTAB PO SCH (09:04)
[2022-11-26] MEDS: ISOSORBIDE MONO EXTENDED REL 30 MG TABCR PO SCH (09:04)
[2022-11-26] MEDS: CLOPIDOGREL BISULFATE 75 MG TAB PO SCH (09:04)
[2022-11-26] MEDS: lisinopril 5 MG TAB PO SCH (09:10)
[2022-11-26] MEDS: DULoxetine HCL 30 MG CAP PO SCH (09:10)
[2022-11-26] MEDS: FUROSEMIDE 20 MG TAB PO SCH (09:11)
[2022-11-26] MEDS: DOXYCYCLINE HYCLATE 100 MG CAP PO SCH ×2 (09:11→20:29)
[2022-11-26] MEDS: CEROVITE ADV FORMULA TAB PO SCH (09:11)
[2022-11-26] MEDS: SENNA 8.6 MG TAB PO SCH (09:11)
[2022-11-26] MEDS: GABAPENTIN 300 MG CAP PO SCH ×2 (09:11→20:29)
[2022-11-26] MEDS: ATORVASTATIN 40 MG TAB PO SCH (09:11)
[2022-11-26] MEDS: METOPROLOL SUCC 50MG EXT REL TAB PO SCH ×2 (09:12→20:29)
[2022-11-26] MEDS: NICOTINE 21 MG/24 HR TDSY TD SCH (09:12)
[2022-11-26] MEDS: TOPIRAMATE 50 MG TAB PO SCH ×2 (09:13→20:28)
[2022-11-26] MEDS: INSULIN ASPART PER UNIT CHARGE SC SCH ×4 (09:30→21:06)
[2022-11-26] MEDS: LANTUS PER UNIT CHARGE SC SCH ×2 (09:37→21:03)
[2022-11-26] MEDS: DOCUSATE SODIUM 100 MG CAP PO SCH ×2 (09:43→20:31)
--- NOTE | 2022-11-26 09:44 | Hospitalist Progress Note ---
Date of Service November 26, 2022 Assessment & Plan (1) Encephalopathy: Plan ACTIVE PROBLEM LIST: Acute respiratory failure with hypoxia requiring intubation, extubated succesfully 11/21 COPD with exacerbation, oxygen dependent Pleural effusion status postthoracentesis on 11/03/2022, left-sided, exudate Acute metabolic encephalopathy Sepsis secondary to Multifocal pneumonia-resolved Acute on chronic combined systolic and diastolic heart failure Possible Lyme infection with neurologic involvement, LP declined-complete 21 day course doxycycline. Acute renal failure-resolved hypernatremia, which may have contributed to AMS-resolved. Mixed acid-base disorder-resolved Anemia of chronic disease requiring 2 units of blood to be transfused this admission. New onset thrombocytopenia-resolved, thought secondary to sepsis Peripheral arterial disease Urinary tract infection-treated Diabetes mellitus type 2-chronic, stable. Hypertension-chronic, at goal Coronary artery disease status post CABG-chronic, stable. Severe mitral regurgitation Left bundle branch block Tobacco use-smoking cessation recommended Mood disorder-appears to be at baseline, cont home medications. UTI with Klebsiella, completed antibiotic course, nasal MRSA positive Admitted 10/30 through 11/15, readmitted 11/16. Initial hospital stay was secondary to acute exacerbation of heart failure with acute on chronic respiratory failure. She was continued on Lasix at discharge with outpatient sleep study recommended by pulmonology. Cefdinir was continued for a UTI secondary to Klebsiella and has completed the antibiotic course. She was readmitted the following day being found down by the daughter with home oxygen not in place and somnolent. Work-up and hospital course as noted above. -mentating at baseline -Oxygenating at baseline today and improved clinically -restart home PO Lasix at fraction (20mg) of home dose-->increase to 40mg today with report of swelling and BP now 115 systolic. -Continue 21 days total course of doxycycline for possible neurologic Lyme involvement, noted RPR is nonreactive -Cont Zyprexa 5 mg p.o. nightly per home regimen -Cont home gabapentin and increase from 300mg BID to TID, cont Topamax per home regimen. -she says she is on home tramadol, however, this is not prescribed per PDMP and she is not consistently on narcotics at home -hopeful that the increased gabapentin will help given the elevated risk of medication polypharmacy issues -Unclear source of acute on chronic anemia, continue PPI therapy and monitor bowel movements with CBC daily. Minimize phlebotomy. -CAD/PAD-chronic, stable. Continue medical management. -Pneumonia-treated and resolved -Smoking cessation recommended-nicotine patch started Diet: DMII diet DVT prophylaxis: Lovenox CODE STATUS: Full code Dispo: to PCU, therapy recommending acute rehab as a transition to home. She will require additional review by [facility] given mental health history--this process has been requested and is being coordinated by case management. I spent a total of 60 minutes coordinating, documenting, and providing care for this patient excluding time spent in the performance of separately billed services Marci Kiser DO [facility] Hospitalist Admission and Anticipated Discharge Date Admission Date: November 16, 2022 Subjective 62-year-old female presented with altered mental status. Head CT negative, brain MRI on 11/20 was negative. Elevated white count with positive Lyme IgM antibodies. She was felt to have underlying sepsis from left-sided pneumonia and was treated for antibiotic therapy which covered both Lyme and pneumonia. CSF sampling was deferred per discussion with ICU attending and family. Acute respiratory failure also considered multifactorial with contributing factors including bilateral pleural effusions secondary to acute on chronic diastolic heart failure in the setting of mitral regurgitation. She was diuresed to maintain negative fluid balance. It was felt that Lyme carditis was unlikely. Noted history of CABG in the past. She continues on medical therapy for CAD. Left-sided pleural effusion also noted with thoracentesis on 11/03/2022. This was exudative. Additionally, given her history of tobacco abuse there was a possibility of COPD flare. Patient reports she is on home oxygen at 4 L/min continuously and uses CPAP for ISA[place]. When the patient was found prior to admission she was not on oxygen which may have contributed to her altered mental state. She also recently lost her grandson to a fentanyl overdose which is causing her additional anxiety. Patient also continues to smoke cigarettes, even with oxygen in place increasing the risk of explosion. Per staff reports, daughter is concerned with patient's ability to live independently. Extubated on 11/21 and she is oxygenating at her baseline with an improvement in mental status. Noted some swelling in her residual limb with shooting pain there and in her back. She has a walker that she can use in the room but hasn't ambulated She does transfer out of bed to chair, etc with assistance. +reports chronic back pain Encouraged to move OOB to chair frequently and ambulate as tolerated Physical Exam Physical Exam: CONSTITUTIONAL: WNWD, vitals as above, generally well-appearing, NAD EYES: normal conjunctivae, no scleral icterus ENT: external ear and nose normal, MMM NECK: trachea midline RESPIRATORY: clear to auscultation bilaterally, no crackles, rales or wheezes, normal respiratory effort CARDIOVASCULAR: regular rate and rhythm, S1 and 2 heard without murmurs, gallops or rubs, no JVD, no peripheral edema CHEST: inspection of chest was normal GASTROINTESTINAL: soft, nontender, ND, no guarding MUSCULOSKELETAL: strength 5/5 throughout, head is normocephalic and atraumatic SKIN: warm and dry, ecchymosis on arms NEUROLOGIC: CN 2-12 grossly intact, no sensory deficit, normal cognition, normal speech, no tremor PSYCHIATRIC: alert cooperative and oriented to person, place and time. Euthymic mood, makes good eye contact, language grossly intact, recent and remote memory grossly intact. Results & Data Results & Data Vital Signs (Past 12 Hours) Vital Signs Temp Pulse Pulse Resp BP Pulse Ox O2 Del Method 11/26/22 09:00 64 20 122/70 97 Nasal Cannula 11/26/22 07:12 36.5 C 60 17 93/54 L 99 Nasal Cannula O2 Flow Rate 11/26/22 09:00 3 11/26/22 07:12 3 Laboratory Results [facility] 11/26/22 06:26 Sodium 141 Potassium 4.1 Chloride 114 H Carbon Dioxide 23 BUN 20 Creatinine 0.86 Glucose 116 H Calcium 9.8 Medications Administered Current Inpatient Medications Acetaminophen (Acetaminophen 325 Mg Tab) 650 mg PO Q4H PRN PRN Reason: Pain or Fever Stop: 12/25/22 01:22 Last Admin: 11/26/22 00:00 Dose: 650 mg Aspirin (Aspirin 81 Mg Ectab) 81 mg PO DAILY [facility] Stop: 12/24/22 08:59 Last Admin: 11/26/22 09:04 Dose: 81 mg Atorvastatin Calcium (Atorvastatin 40 Mg Tab) 80 mg PO DAILY [facility] Stop: 12/24/22 08:59 Last Admin: 11/26/22 09:11 Dose: 80 mg Clopidogrel Bisulfate (Clopidogrel Bisulfate 75 Mg Tab) 75 mg PO QAM [facility] Stop: 12/24/22 10:29 Last Admin: 11/26/22 09:04 Dose: 75 mg Dextrose (Dextrose 50% 50 Ml Syringe) 25 - 50 ml IV UD PRN; Protocol PRN Reason: Hypoglycemia Protocol Stop: 12/16/22 23:34 Docusate Sodium (Docusate Sodium 100 Mg Cap) 100 mg PO BID [facility] Stop: 12/23/22 08:59 Last Admin: 11/26/22 09:43 Dose: 100 mg Doxycycline Hyclate (Doxycycline Hyclate 100 Mg Cap) 100 mg PO BID [facility] Stop: 12/04/22 10:29 Last Admin: 11/26/22 09:11 Dose: 100 mg Duloxetine HCl (Duloxetine Hcl 30 Mg Cap) 90 mg PO QAM [facility] Stop: 12/24/22 08:59 Last Admin: 11/26/22 09:10 Dose: 90 mg Enoxaparin Sodium (Enoxaparin Inj 40 Mg/0.4 Ml Syr) 40 mg SQ HS [facility] Stop: 12/20/22 20:59 Last Admin: 11/25/22 21:49 Dose: 40 mg Furosemide (Furosemide 20 Mg Tab) 20 mg PO DAILY [facility] Stop: 12/24/22 10:29 Last Admin: 11/26/22 09:11 Dose: 20 mg Gabapentin (Gabapentin 300 Mg Cap) 300 mg PO BID [facility] Stop: 12/24/22 10:29 Last Admin: 11/26/22 09:11 Dose: 300 mg Glucagon (Glucagon For Inj 1 Mg Vial) 1 mg SQ UD PRN; Protocol PRN Reason: Hypoglycemia Protocol Stop: 12/16/22 23:34 Glucose (Glucose 10 Tab/Tube) 4 - 8 tab PO UD PRN; Protocol PRN Reason: Hypoglycemia Treatment Stop: 12/16/22 23:34 Glucose (Glucose 40% Gel 15 Gm Tube) 15 - 30 gm PO UD PRN; Protocol PRN Reason: Hypoglycemia Protocol Stop: 12/16/22 23:34 Insulin Aspart (Insulin Aspart Per Unit Charge) 0 units SC ACHS [facility] Stop: 12/23/22 11:29 Last Admin: 11/26/22 09:30 Dose: 7 units Insulin Glargine (Lantus Per Unit Charge) 0 units SC BID [facility]; Protocol Stop: 12/21/22 09:14 Last Admin: 11/26/22 09:37 Dose: 10 units Ipratropium [place] (Ipratropium [place] Neb Soln 0.02% 2.5 Ml Vial) 0.5 mg INH Q6R PRN PRN Reason: Shortness Of Breath Or Wheezing Stop: 12/19/22 06:59 Isosorbide Mononitrate (Isosorbide [place] Extended Rel 30 Mg Tabcr) [facility] [place]: 12/25/22 08:59 Last Admin: 11/26/22 09:04 Dose: 30 mg Levalbuterol HCl (Levalbuterol 1.25 Mg/3 Ml Neb) 1.25 mg NEB Q6R PRN PRN Reason: Shortness Of Breath Or Wheezing Stop: 12/19/22 06:59 Lisinopril (Lisinopril 5 Mg Tab) 5 [facility] Stop: 12/24/22 08:59 Last Admin: 11/26/22 09:10 Dose: 5 mg Melatonin (Melatonin 3 Mg Tab) 4.5 mg PO HS PRN PRN Reason: insomnia Stop: 12/16/22 23:34 Last Admin: 11/25/22 21:55 Dose: 4.5 mg Metoprolol Succinate (Metoprolol Succ 50mg Ext Rel Tab) 100 mg [facility] Stop: 12/24/22 10:29 Last Admin: 11/26/22 09:12 Dose: 100 mg Metoprolol Succinate (Metoprolol Succ 50mg Ext Rel Tab) 50 mg PO [facility] Stop: 12/24/22 20:59 Last Admin: 11/25/22 21:50 Dose: 50 mg Miscellaneous (Carbohydrates For Hypoglycemia ) 15 - 30 gm PO UD PRN PRN Reason: Hypoglycemia Protocol Stop: 12/16/22 23:34 Miscellaneous (Remove Nicoderm Patch) 1 each N/A DAILY@0859 [facility] Stop: 12/25/22 08:58 Last Admin: 11/26/22 09:03 Dose: 1 each Multivitamins/Minerals (Cerovite Adv Formula Tab) 1 tab [facility] Stop: 12/23/22 08:59 Last Admin: 11/26/22 09:11 Dose: 1 tab Nicotine (Nicotine 21 Mg/24 Hr Tdsy) 21 mg TD [facility] Stop: 12/24/22 13:29 Last Admin: 11/26/22 09:12 Dose: 21 mg Olanzapine (Olanzapine 5 Mg Tablet) 5 mg PO [facility] Stop: 12/18/22 20:59 Last Admin: 11/25/22 21:50 Dose: 5 mg Pantoprazole Sodium (Pantoprazole 40 Mg Tab) 40 mg PO QAM [facility] Stop: 12/25/22 08:59 Last Admin: 11/25/22 08:34 Dose: 40 mg Ropinirole HCl (Ropinirole Hcl 1 Mg Tablet) 1 mg PO QPM [facility] Stop: 12/24/22 20:59 Last Admin: 11/25/22 21:50 Dose: 1 mg Sennosides (Senna 8.6 Mg Tab) 8.6 mg PO QAM [facility] Stop: 12/23/22 08:59 Last Admin: 11/26/22 09:11 Dose: 8.6 mg Topiramate (Topiramate 50 Mg Tab) 50 mg PO BID [facility] Stop: 12/21/22 10:59 Last Admin: 11/26/22 09:13 Dose: 50 mg
[2022-11-26] MEDS: PANTOprazole 40 MG TAB PO SCH (10:53)
[2022-11-26] MEDS: ACETAMINOPHEN 325 MG TAB PO PRN ×2 (13:42)
[2022-11-26] MEDS ORDERED: traMADol HCL 50 MG TABLET PO STA (14:53)
[2022-11-26] MEDS ORDERED: GABAPENTIN 300 MG CAP PO STA (16:14)
[2022-11-26] MEDS: OLANZapine 5 MG TABLET PO SCH (20:28)
[2022-11-26] MEDS: rOPINIRole HCL 1 MG TABLET PO SCH (20:28)
[2022-11-26] MEDS: ENOXAPARIN INJ 40 MG/0.4 ML SYR SQ SCH (20:29)
[2022-11-27] MEDS: ACETAMINOPHEN 325 MG TAB PO PRN ×3 (02:09→18:31)
[2022-11-27] MEDS: MELATONIN 3 MG TAB PO PRN (02:13)
[2022-11-27 06:26] LABS: Hematocrit (blood only) 23.6 % (37.0-47.0); Hemoglobin 7.1 g/dl (12.0-16.0); Mean Corpuscular Hemoglobin 29.5 pg (25.0-34.0); Mean Corpuscular Hgb Conc 30.1 g/dL (32.0-36.0); Mean Corpuscular Volume 97.9 fL (80.0-100.0); Mean Platelet Volume 12.4 fL (9.4-12.4); Platelet Count 225 K/uL (130-400); RDW Coefficient of Variation 19.8 % (11.5-14.5); RDW Standard Deviation 68.5 fL (36.4-46.3); Red Blood Count 2.41 M/uL (4.20-5.40); White Blood Count 10.54 K/ul (4.8-10.8)
[2022-11-27 06:49] LABS: BUN Creatinine Ratio 21.7 (10-20); Calcium 9.5 mg/dl (8.6-10.3); Creatinine Clr Calc Pharmacy 56.7 ml/min; Est GFR (African American) 76.3 ml/min; Est GFR (Non-African American) 65.8 ml/min; Potassium 4.2 mmol/L (3.5-5.1)
[2022-11-27] MEDS: DOXYCYCLINE HYCLATE 100 MG CAP PO SCH ×2 (08:34→20:28)
[2022-11-27] MEDS: TOPIRAMATE 50 MG TAB PO SCH ×2 (08:34→20:28)
[2022-11-27] MEDS: CLOPIDOGREL BISULFATE 75 MG TAB PO SCH (08:35)
[2022-11-27] MEDS: ASPIRIN 81 MG ECTAB PO SCH (08:35)
[2022-11-27] MEDS: CEROVITE ADV FORMULA TAB PO SCH (08:35)
[2022-11-27] MEDS: ATORVASTATIN 40 MG TAB PO SCH (08:35)
[2022-11-27] MEDS: DULoxetine HCL 30 MG CAP PO SCH (08:35)
[2022-11-27] MEDS: PANTOprazole 40 MG TAB PO SCH (08:35)
[2022-11-27] MEDS: ISOSORBIDE MONO EXTENDED REL 30 MG TABCR PO SCH (08:36)
[2022-11-27] MEDS: METOPROLOL SUCC 50MG EXT REL TAB PO SCH ×2 (08:36→20:28)
[2022-11-27] MEDS: FUROSEMIDE 40 MG TAB PO SCH (08:36)
[2022-11-27] MEDS: GABAPENTIN 300 MG CAP PO SCH ×3 (08:37→20:28)
[2022-11-27] MEDS: SENNA 8.6 MG TAB PO SCH (08:39)
[2022-11-27] MEDS: DOCUSATE SODIUM 100 MG CAP PO SCH ×2 (08:39→20:29)
[2022-11-27] MEDS: NICOTINE 21 MG/24 HR TDSY TD SCH (08:45)
[2022-11-27] MEDS: INSULIN ASPART PER UNIT CHARGE SC SCH ×4 (09:19→21:39)
[2022-11-27] MEDS: LANTUS PER UNIT CHARGE SC SCH ×2 (09:20→21:44)
[2022-11-27] MEDS: lisinopril 5 MG TAB PO SCH (10:54)
--- NOTE | 2022-11-27 17:24 | Hospitalist Progress Note ---
Date of Service November 27, 2022 Assessment & Plan (1) Encephalopathy: Plan ACTIVE PROBLEM LIST: Acute respiratory failure with hypoxia requiring intubation, extubated succesfully 11/21 COPD with exacerbation, oxygen dependent Pleural effusion status postthoracentesis on 11/03/2022, left-sided, exudate Acute metabolic encephalopathy Sepsis secondary to Multifocal pneumonia-resolved Acute on chronic combined systolic and diastolic heart failure Possible Lyme infection with neurologic involvement, LP declined-complete 21 day course doxycycline. Acute renal failure-resolved hypernatremia, which may have contributed to AMS-resolved. Mixed acid-base disorder-resolved Anemia of chronic disease requiring 2 units of blood to be transfused this admission. New onset thrombocytopenia-resolved, thought secondary to sepsis Peripheral arterial disease Urinary tract infection-treated Diabetes mellitus type 2-chronic, stable. Hypertension-chronic, at goal Coronary artery disease status post CABG-chronic, stable. Severe mitral regurgitation Left bundle branch block Tobacco use-smoking cessation recommended Mood disorder-appears to be at baseline, cont home medications. UTI with Klebsiella, completed antibiotic course, nasal MRSA positive Admitted 10/30 through 11/15, readmitted 11/16. Initial hospital stay was secondary to acute exacerbation of heart failure with acute on chronic respiratory failure. She was continued on Lasix at discharge with outpatient sleep study recommended by pulmonology. Cefdinir was continued for a UTI secondary to Klebsiella and has completed the antibiotic course. She was readmitted the following day being found down by the daughter with home oxygen not in place and somnolent. Work-up and hospital course as noted above. -mentating at baseline -Oxygenating at baseline today and improved clinically -restart home PO Lasix at fraction (20mg) of home dose-->increase to 40mg today with report of swelling and BP now 115 systolic. -Continue 21 days total course of doxycycline for possible neurologic Lyme involvement, noted RPR is nonreactive -Cont Zyprexa 5 mg p.o. nightly per home regimen -Cont home gabapentin and increase from 300mg BID to TID, cont Topamax per home regimen. -she says she is on home tramadol, however, this is not prescribed per PDMP and she is not consistently on narcotics at home -hopeful that the increased gabapentin will help given the elevated risk of medication polypharmacy issues -Unclear source of acute on chronic anemia, continue PPI therapy and monitor bowel movements with CBC daily. Minimize phlebotomy. -CAD/PAD-chronic, stable. Continue medical management. -Pneumonia-treated and resolved -Smoking cessation recommended-nicotine patch started 11/27/2022 Has not been feeling much better today otherwise denies any significant symptoms Remains hemodynamically stable We will continue management as mentioned above Diet: DMII diet DVT prophylaxis: Lovenox CODE STATUS: Full code Dispo: to PCU, therapy recommending acute rehab as a transition to home. She will require additional review by [facility] given mental health history--this process has been requested and is being coordinated by case management. I spent a total of 60 minutes coordinating, documenting, and providing care for this patient excluding time spent in the performance of separately billed services Vivian Faulkner MD [facility] Hospitalist Admission and Anticipated Discharge Date Admission Date: November 16, 2022 Subjective 11/27/2022 The patient was seen and examined in medical floor Has not been feeling much better today Complains of increasing weakness and tiredness Denies any acute distress, pain or shortness of breath Review of Systems Review of Systems: All systems reviewed and are unremarkable except as noted below Physical Exam Physical Exam: Lying in bed comfortably Constitutional: well developed, well nourished, + ill appearing and + obese Eyes: PERRL, conjunctivae normal, anicteric sclerae ENMT: external ear and nose normal, oropharynx normal Neck: trachea midline, no thyromegaly Respiratory: no respiratory distress Auscultation: + diminished lung sounds and + crackles Cardiovascular: Rate/Rhythm: regular rate and regular rhythm; not tachycardic Heart Sounds: normal S1, normal S2 and + murmur (2/6 ESM over precordium) Extremities: + edema Gastrointestinal (Abdomen): Inspection/Auscultation: normal bowel sounds; abdomen not distended Percussion/Palpation: abdomen soft; abdomen nontender Musculoskeletal: No acute arthritis involving any of the joint Neurologic: Alert, awake and oriented x3. Generally weak and lethargic Lymphatic: no cervical or axillary lymphadenopathy Results & Data Results & Data Vital Signs (Past 12 Hours) Vital Signs Temp Pulse Resp BP Pulse Ox O2 Del Method O2 Flow Rate 11/27/22 15:16 36.5 C 67 16 129/73 93 Nasal Cannula 3 11/27/22 07:45 Nasal Cannula 3 11/27/22 08:01 36.5 C 64 16 119/64 98 Nasal Cannula 3 Laboratory Results Short CBC 11/27/22 Range/Units 06:07 WBC 10.54 (4.8-10.8) K/ul Hgb 7.1 L (12.0-16.0) g/dl Hct 23.6 L (37.0-47.0) % Plt Count 225 (130-400) K/uL BMP 11/27/22 06:07 Sodium 141 Potassium 4.2 Chloride 112 H Carbon Dioxide 23 BUN 20 Creatinine 0.92 Glucose 157 H Calcium 9.5 Medications Administered Current Inpatient Medications Acetaminophen (Acetaminophen 325 Mg Tab) 650 mg PO Q4H PRN PRN Reason: Pain or Fever Stop: 12/25/22 01:22 Last Admin: 11/27/22 18:31 Dose: 650 mg Aspirin (Aspirin 81 Mg Ectab) 81 mg PO DAILY [facility] Stop: 12/24/22 08:59 Last Admin: 11/27/22 08:35 Dose: 81 mg Atorvastatin Calcium (Atorvastatin 40 Mg Tab) 80 mg PO DAILY [facility] Stop: 12/24/22 08:59 Last Admin: 11/27/22 08:35 Dose: 80 mg Clopidogrel Bisulfate (Clopidogrel Bisulfate 75 Mg Tab) 75 mg PO QAM [facility] Stop: 12/24/22 10:29 Last Admin: 11/27/22 08:35 Dose: 75 mg Dextrose (Dextrose 50% 50 Ml Syringe) 25 - 50 ml IV UD PRN; Protocol PRN Reason: Hypoglycemia Protocol Stop: 12/16/22 23:34 Docusate Sodium (Docusate Sodium 100 Mg Cap) 100 mg PO BID [facility] Stop: 12/23/22 08:59 Last Admin: 11/27/22 20:29 Dose: Not Given Doxycycline Hyclate (Doxycycline Hyclate 100 Mg Cap) 100 mg PO BID [facility] Stop: 12/08/22 22:00 Last Admin: 11/27/22 20:28 Dose: 100 mg Duloxetine HCl (Duloxetine Hcl 30 Mg Cap) 90 mg PO QAM [facility] Stop: 12/24/22 08:59 Last Admin: 11/27/22 08:35 Dose: 90 mg Enoxaparin Sodium (Enoxaparin Inj 40 Mg/0.4 Ml Syr) 40 mg SQ HS [facility] Stop: 12/20/22 20:59 Last Admin: 11/27/22 20:28 Dose: 40 mg Furosemide (Furosemide 40 Mg Tab) 40 mg PO DAILY [facility] Stop: 12/27/22 08:59 Last Admin: 11/27/22 08:36 Dose: 40 mg Gabapentin (Gabapentin 300 Mg Cap) 300 mg PO TID [facility] Stop: 12/26/22 20:59 Last Admin: 11/27/22 20:28 Dose: 300 mg Glucagon (Glucagon For Inj 1 Mg Vial) 1 mg SQ UD PRN; Protocol PRN Reason: Hypoglycemia Protocol Stop: 12/16/22 23:34 Glucose (Glucose 10 Tab/Tube) 4 - 8 tab PO UD PRN; Protocol PRN Reason: Hypoglycemia Treatment Stop: 12/16/22 23:34 Glucose (Glucose 40% Gel 15 Gm Tube) 15 - 30 gm PO UD PRN; Protocol PRN Reason: Hypoglycemia Protocol Stop: 12/16/22 23:34 Insulin Aspart (Insulin Aspart Per Unit Charge) 0 units SC ACHS [facility] Stop: 12/23/22 11:29 Last Admin: 11/27/22 21:39 Dose: Not Given Insulin Glargine (Lantus Per Unit Charge) 0 units SC BID [facility]; Protocol Stop: 12/21/22 09:14 Last Admin: 11/27/22 21:44 Dose: 10 units Ipratropium [place] (Ipratropium [place] Neb Soln 0.02% 2.5 Ml Vial) 0.5 mg INH Q6R PRN PRN Reason: Shortness Of Breath Or Wheezing Stop: 12/19/22 06:59 Isosorbide Mononitrate (Isosorbide [place] Extended Rel 30 Mg Tabcr) 30 mg PO QAM [facility] Stop: 12/25/22 08:59 Last Admin: 11/27/22 08:36 Dose: 30 mg Levalbuterol HCl (Levalbuterol 1.25 Mg/3 Ml Neb) 1.25 mg NEB Q6R PRN PRN Reason: Shortness Of Breath Or Wheezing Stop: 12/19/22 06:59 Lisinopril (Lisinopril 5 Mg Tab) 5 mg PO QAM [facility] Stop: 12/24/22 08:59 Last Admin: 11/27/22 10:54 Dose: 5 mg Melatonin (Melatonin 3 Mg Tab) 4.5 mg PO HS PRN PRN Reason: insomnia Stop: 12/16/22 23:34 Last Admin: 11/27/22 02:13 Dose: 4.5 mg Metoprolol Succinate (Metoprolol Succ 50mg Ext Rel Tab) 100 mg PO QAM [facility] Stop: 12/24/22 10:29 Last Admin: 11/27/22 08:36 Dose: 100 mg Metoprolol Succinate (Metoprolol Succ 50mg Ext Rel Tab) 50 mg PO HS [facility] Stop: 12/24/22 20:59 Last Admin: 11/27/22 20:28 Dose: 50 mg Miscellaneous (Carbohydrates For Hypoglycemia ) 15 - 30 gm PO UD PRN PRN Reason: Hypoglycemia Protocol Stop: 12/16/22 23:34 Miscellaneous (Remove Nicoderm Patch) 1 each N/A DAILY@59 [facility] Stop: 12/25/22 08:58 Last Admin: 11/27/22 08:44 Dose: 1 each Multivitamins/Minerals (Cerovite Adv Formula Tab) 1 tab PO QAM [facility] Stop: 12/23/22 08:59 Last Admin: 11/27/22 08:35 Dose: 1 tab Nicotine (Nicotine 21 Mg/24 Hr Tdsy) 21 mg TD QAM [facility] Stop: 12/24/22 13:29 Last Admin: 11/27/22 08:45 Dose: 21 mg Olanzapine (Olanzapine 5 Mg Tablet) 5 mg PO HS [facility] Stop: 12/18/22 20:59 Last Admin: 11/27/22 20:28 Dose: 5 mg Pantoprazole Sodium (Pantoprazole 40 Mg Tab) 40 mg PO QAM [facility] Stop: 12/25/22 08:59 Last Admin: 11/27/22 08:35 Dose: 40 mg Ropinirole HCl (Ropinirole Hcl 1 Mg Tablet) 1 mg PO QPM [facility] Stop: 12/24/22 20:59 Last Admin: 11/27/22 20:28 Dose: 1 mg Sennosides (Senna 8.6 Mg Tab) 8.6 mg PO QAM [facility] Stop: 12/23/22 08:59 Last Admin: 11/27/22 08:39 Dose: 8.6 mg Topiramate (Topiramate 50 Mg Tab) 50 mg PO BID [facility] Stop: 12/21/22 10:59 Last Admin: 11/27/22 20:28 Dose: 50 mg Tramadol HCl (Tramadol Hcl 50 Mg Tablet) 50 mg PO Q6H PRN PRN Reason: Severe Pain (Scale 7, 8, 9,10) Stop: 12/27/22 19:59 Last Admin: 11/27/22 20:29 Dose: 50 mg
[2022-11-27] MEDS: OLANZapine 5 MG TABLET PO SCH (20:28)
[2022-11-27] MEDS: ENOXAPARIN INJ 40 MG/0.4 ML SYR SQ SCH (20:28)
[2022-11-27] MEDS: rOPINIRole HCL 1 MG TABLET PO SCH (20:28)
[2022-11-27] MEDS: traMADol HCL 50 MG TABLET PO PRN (20:29)
[2022-11-27] MEDS: DICLOFENAC SOD 1% GEL 100 GM TUBE EXT PRN (23:07)
[2022-11-27] MEDS ORDERED: ONDANSETRON INJ 2 MG/ML 2 ML VIAL IV STA (23:49)
[2022-11-28] MEDS: traMADol HCL 50 MG TABLET PO PRN ×3 (03:24→19:54)
[2022-11-28 07:43] LABS: Basophils # (auto) 0.03 K/uL (0.00-0.20); Basophils % (auto) 0.2 %; Eosinophils # (auto) 0.09 K/uL (0.00-0.50); Eosinophils % (auto) 0.7 %; Hematocrit (blood only) 25.2 % (37.0-47.0); Hemoglobin 7.4 g/dl (12.0-16.0); Immature Granulocytes # (auto) 0.54 K/uL (0.01-0.20); Immature Granulocytes % (auto) 4.5 %; Lymphocytes # (auto) 2.35 K/uL (1.20-3.40); Lymphocytes % (auto) 19.5 %; Mean Corpuscular Hemoglobin 29.6 pg (25.0-34.0); Mean Corpuscular Hgb Conc 29.4 g/dL (32.0-36.0); Mean Corpuscular Volume 100.8 fL (80.0-100.0); Mean Platelet Volume 12.3 fL (9.4-12.4); Monocytes # (auto) 2.85 K/uL (0.11-0.59); Monocytes % (auto) 23.7 %; Neutrophils # (auto) 6.19 K/uL (1.40-6.50); Neutrophils % (auto) 51.4 %; Nucleated RBC # (auto) 0.02 K/uL (0.00-0.12); Nucleated RBC % (auto) 0.2 %; Platelet Count 242 K/uL (130-400); RDW Coefficient of Variation 20.6 % (11.5-14.5); White Blood Count 12.05 K/ul (4.8-10.8)
[2022-11-28 07:45] LABS: BUN Creatinine Ratio 24.5 (10-20); Calcium 9.3 mg/dl (8.6-10.3); Creatinine Clr Calc Pharmacy 55.5 ml/min; Est GFR (African American) 74.3 ml/min; Est GFR (Non-African American) 64.1 ml/min; Magnesium 1.5 mg/dl (1.7-2.4); Potassium 4.3 mmol/L (3.5-5.1)
[2022-11-28 08:10] LABS: Anisocytosis Present; Polychromasia 2+
[2022-11-28] MEDS: DULoxetine HCL 30 MG CAP PO SCH (08:23)
[2022-11-28] MEDS: PANTOprazole 40 MG TAB PO SCH (08:24)
[2022-11-28] MEDS: ASPIRIN 81 MG ECTAB PO SCH (08:24)
[2022-11-28] MEDS: TOPIRAMATE 50 MG TAB PO SCH ×2 (08:24→19:38)
[2022-11-28] MEDS: ATORVASTATIN 40 MG TAB PO SCH (08:24)
[2022-11-28] MEDS: GABAPENTIN 300 MG CAP PO SCH ×2 (08:24→13:09)
[2022-11-28] MEDS: CLOPIDOGREL BISULFATE 75 MG TAB PO SCH (08:25)
[2022-11-28] MEDS: SENNA 8.6 MG TAB PO SCH (08:25)
[2022-11-28] MEDS: lisinopril 5 MG TAB PO SCH (08:25)
[2022-11-28] MEDS: CEROVITE ADV FORMULA TAB PO SCH (08:25)
[2022-11-28] MEDS: DOXYCYCLINE HYCLATE 100 MG CAP PO SCH ×2 (08:25→19:40)
[2022-11-28] MEDS: METOPROLOL SUCC 50MG EXT REL TAB PO SCH ×2 (08:25→19:38)
[2022-11-28] MEDS: ISOSORBIDE MONO EXTENDED REL 30 MG TABCR PO SCH (08:25)
[2022-11-28] MEDS: NICOTINE 21 MG/24 HR TDSY TD SCH (08:26)
[2022-11-28] MEDS: FUROSEMIDE 40 MG TAB PO SCH (08:26)
[2022-11-28] MEDS: DOCUSATE SODIUM 100 MG CAP PO SCH ×2 (08:27→19:48)
[2022-11-28] MEDS: LANTUS PER UNIT CHARGE SC SCH ×2 (08:27→08:38)
[2022-11-28] MEDS: INSULIN ASPART PER UNIT CHARGE SC SCH ×4 (08:38→19:47)
[2022-11-28] MEDS: GABAPENTIN 400 MG CAP PO SCH ×2 (13:50→19:39)
--- NOTE | 2022-11-28 16:59 | Hospitalist Progress Note ---
Date of Service November 28, 2022 Assessment & Plan (1) Encephalopathy: Plan ACTIVE PROBLEM LIST: Acute respiratory failure with hypoxia requiring intubation, extubated succesfully 11/21 COPD with exacerbation, oxygen dependent Pleural effusion status postthoracentesis on 11/03/2022, left-sided, exudate Acute metabolic encephalopathy Sepsis secondary to Multifocal pneumonia-resolved Acute on chronic combined systolic and diastolic heart failure Possible Lyme infection with neurologic involvement, LP declined-complete 21 day course doxycycline. Acute renal failure-resolved hypernatremia, which may have contributed to AMS-resolved. Mixed acid-base disorder-resolved Anemia of chronic disease requiring 2 units of blood to be transfused this admission. New onset thrombocytopenia-resolved, thought secondary to sepsis Peripheral arterial disease Urinary tract infection-treated Diabetes mellitus type 2-chronic, stable. Hypertension-chronic, at goal Coronary artery disease status post CABG-chronic, stable. Severe mitral regurgitation Left bundle branch block Tobacco use-smoking cessation recommended Mood disorder-appears to be at baseline, cont home medications. UTI with Klebsiella, completed antibiotic course, nasal MRSA positive Admitted 10/30 through 11/15, readmitted 11/16. Initial hospital stay was secondary to acute exacerbation of heart failure with acute on chronic respiratory failure. She was continued on Lasix at discharge with outpatient sleep study recommended by pulmonology. Cefdinir was continued for a UTI secondary to Klebsiella and has completed the antibiotic course. She was readmitted the following day being found down by the daughter with home oxygen not in place and somnolent. Work-up and hospital course as noted above. -mentating at baseline -Oxygenating at baseline today and improved clinically -restart home PO Lasix at fraction (20mg) of home dose-->increase to 40mg today with report of swelling and BP now 115 systolic. -Continue 21 days total course of doxycycline for possible neurologic Lyme involvement, noted RPR is nonreactive -Cont Zyprexa 5 mg p.o. nightly per home regimen -Cont home gabapentin and increase from 300mg BID to TID, cont Topamax per home regimen. -she says she is on home tramadol, however, this is not prescribed per PDMP and she is not consistently on narcotics at home -hopeful that the increased gabapentin will help given the elevated risk of medication polypharmacy issues -Unclear source of acute on chronic anemia, continue PPI therapy and monitor bowel movements with CBC daily. Minimize phlebotomy. -CAD/PAD-chronic, stable. Continue medical management. -Pneumonia-treated and resolved -Smoking cessation recommended-nicotine patch started 11/27/2022 Has not been feeling much better today otherwise denies any significant symptoms Remains hemodynamically stable We will continue management as mentioned above 11/28/2022 Clinically much better today Has been conversing normally but complains of pain in the left hip and left back likely due to neuropathic pain Had gabapentin in dose was increased to 400 mg 3 times daily to control pain effectively We will ask PT and OT evaluation Diet: DMII diet DVT prophylaxis: Lovenox CODE STATUS: Full code Dispo: to PCU, therapy recommending acute rehab as a transition to home. She will require additional review by OFUNMILAYO given mental health history--this process has been requested and is being coordinated by case management. I spent a total of 45 minutes coordinating, documenting, and providing care for this patient excluding time spent in the performance of separately billed services Vivian Faulkner MD [facility] and [facility]tic[facility]ated Discharge Date Admission Date: November 16, 2022 Subjective 11/27/2022 The patient was seen and examined in medical floor Has not been feeling much better today Complains of increasing weakness and tiredness Denies any acute distress, pain or shortness of breath 11/28/2022 The patient was seen and examined in medical floor He has been feeling much better today Complains pain in the left hip and left leg Also back pain which she complains to be neuropathic pain Review of Systems Review of Systems: All systems reviewed and are unremarkable except as noted below Physical Exam Physical Exam: Lying in bed comfortably Constitutional: well developed, well nourished, + ill appearing and + obese Eyes: PERRL, conjunctivae normal, anicteric sclerae ENMT: external ear and nose normal, oropharynx normal Neck: trachea midline, no thyromegaly Respiratory: no respiratory distress Auscultation: + diminished lung sounds and + crackles Cardiovascular: Rate/Rhythm: regular rate and regular rhythm; not tachycardic Heart Sounds: normal S1, normal S2 and + murmur (2/6 ESM over precordium) Extremities: + edema Gastrointestinal (Abdomen): Inspection/Auscultation: normal bowel sounds; abdomen not distended Percussion/Palpation: abdomen soft; abdomen nontender Musculoskeletal: Movement of the left hip causes more pain than usual Neurologic: normal touch/pain/proprioception and moves all extremities (Has left AKA) Lymphatic: no cervical or axillary lymphadenopathy Results & Data Results & Data Vital Signs (Past 12 Hours) Vital Signs Temp Pulse Resp BP BP Pulse Ox O2 Del Method 11/28/22 14:57 36.7 C 68 18 116/56 L 95 Nasal Cannula 11/28/22 08:00 Room Air 11/28/22 07:07 36.5 C 73 20 120/60 93 Nasal Cannula O2 Flow Rate 11/28/22 14:57 4 11/28/22 08:00 11/28/22 07:07 4 Laboratory Results Short CBC 11/28/22 Range/Units 06:53 WBC 12.05 H (4.8-10.8) K/ul Hgb 7.4 L (12.0-16.0) g/dl Hct 25.2 L (37.0-47.0) % Plt Count 242 (130-400) K/uL BMP 11/28/22 06:53 Sodium 141 Potassium 4.3 Chloride 110 H Carbon Dioxide 26 BUN 23 Creatinine 0.94 Glucose 115 H Calcium 9.3 Medications Administered Current Inpatient Medications Acetaminophen (Acetaminophen 325 Mg Tab) 650 mg PO Q4H PRN PRN Reason: Pain or Fever Stop: 12/25/22 01:22 Last Admin: 11/27/22 18:31 Dose: 650 mg Aspirin (Aspirin 81 Mg Ectab) 81 mg PO DAILY SAMANTHA Stop: 12/24/22 08:59 Last Admin: 11/28/22 08:24 Dose: 81 mg Atorvastatin Calcium (Atorvastatin 40 Mg Tab) 80 mg PO DAILY SAMANTHA Stop: 12/24/22 08:59 Last Admin: 11/28/22 08:24 Dose: 80 mg Clopidogrel Bisulfate (Clopidogrel Bisulfate 75 Mg Tab) 75 mg PO QAM SAMANTHA Stop: 12/24/22 10:29 Last Admin: 11/28/22 08:25 Dose: 75 mg Dextrose (Dextrose 50% 50 Ml Syringe) 25 - 50 ml IV UD PRN; Protocol PRN Reason: Hypoglycemia Protocol Stop: 12/16/22 23:34 Diclofenac Sodium (Diclofenac Sod 1% Gel 100 Gm Tube) 2 gm EXT BID PRN; Protocol PRN Reason: Pain Stop: 12/27/22 22:59 Last Admin: 11/27/22 23:07 Dose: 2 gm Docusate Sodium (Docusate Sodium 100 Mg Cap) 100 mg PO BID [facility] Stop: 12/23/22 08:59 Last Admin: 11/28/22 08:27 Dose: 100 mg Doxycycline Hyclate (Doxycycline Hyclate 100 Mg Cap) 100 mg PO BID [facility] Stop: 12/08/22 22:00 Last Admin: 11/28/22 08:25 Dose: 100 mg Duloxetine HCl (Duloxetine Hcl 30 Mg Cap) 90 mg PO QAM SAMANTHA Stop: 12/24/22 08:59 Last Admin: 11/28/22 08:23 Dose: 90 mg Enoxaparin Sodium (Enoxaparin Inj 40 Mg/0.4 Ml Syr) 40 mg SQ HS SAMANTHA Stop: 12/20/22 20:59 Last Admin: 11/27/22 20:28 Dose: 40 mg Furosemide (Furosemide 40 Mg Tab) 40 mg PO DAILY [facility] Stop: 12/27/22 08:59 Last Admin: 11/28/22 08:26 Dose: 40 mg Gabapentin (Gabapentin 400 Mg Cap) 400 mg PO TID [facility] Stop: 12/28/22 13:59 Last Admin: 11/28/22 13:50 Dose: Not Given Glucagon (Glucagon For Inj 1 Mg Vial) 1 mg SQ UD PRN; Protocol PRN Reason: Hypoglycemia Protocol Stop: 12/16/22 23:34 Glucose (Glucose 10 Tab/Tube) 4 - 8 tab PO UD PRN; Protocol PRN Reason: Hypoglycemia Treatment Stop: 12/16/22 23:34 Glucose (Glucose 40% Gel 15 Gm Tube) 15 - 30 gm PO UD PRN; Protocol PRN Reason: Hypoglycemia Protocol Stop: 12/16/22 23:34 Insulin Aspart (Insulin Aspart Per Unit Charge) 0 units SC ACHS [facility] Stop: 12/23/22 11:29 Last Admin: 11/28/22 12:10 Dose: 9 units Insulin Glargine (Lantus Per Unit Charge) 0 units SC BID [facility]; Protocol Stop: 12/21/22 09:14 Last Admin: 11/28/22 08:38 Dose: 10 units Ipratropium [place] (Ipratropium [place] Neb Soln 0.02% 2.5 Ml Vial) 0.5 mg INH Q6R PRN PRN Reason: Shortness Of Breath Or Wheezing Stop: 12/19/22 06:59 Isosorbide Mononitrate (Isosorbide [place] Extended Rel 30 Mg Tabcr) 30 mg PO QAM [facility] Stop: 12/25/22 08:59 Last Admin: 11/28/22 08:25 Dose: 30 mg Levalbuterol HCl (Levalbuterol 1.25 Mg/3 Ml Neb) 1.25 mg NEB Q6R PRN PRN Reason: Shortness Of Breath Or Wheezing Stop: 12/19/22 06:59 Lisinopril (L[facility]opril 5 Mg Tab) [facility] [place] [place]: 12/24/22 08:59 Last Admin: 11/28/22 08:25 Dose: 5 mg Melatonin (Melatonin 3 Mg Tab) 4.5 mg PO HS PRN PRN Reason: insomnia Stop: 12/16/22 23:34 Last Admin: 11/27/22 02:13 Dose: 4.5 mg Metoprolol Succinate (Metoprolol Succ 50mg Ext Rel Tab) 100 [facility] [place] [place]: 12/24/22 10:29 Last Admin: 11/28/22 08:25 Dose: 100 mg Metoprolol Succinate (Metoprolol Succ 50mg Ext Rel Tab) 50 mg PO [facility] Stop: 12/24/22 20:59 Last Admin: 11/27/22 20:28 Dose: 50 mg Miscellaneous (Carbohydrates For Hypoglycemia ) 15 - 30 gm PO UD PRN PRN Reason: Hypoglycemia Protocol Stop: 12/16/22 23:34 Miscellaneous (Remove Nicoderm Patch) 1 each N/A DAILY@[id number] [facility] Stop: 12/25/22 08:58 Last Admin: 11/28/22 08:27 Dose: 1 each Multivitamins/Minerals (Cerovite Adv Formula Tab) 1 tab PO QAM [facility] Stop: 12/23/22 08:59 Last Admin: 11/28/22 08:25 Dose: 1 tab Nicotine (Nicotine 21 Mg/24 Hr Tdsy) 21 mg TD QAM [facility] Stop: 12/24/22 13:29 Last Admin: 11/28/22 08:26 Dose: 21 mg Olanzapine (Olanzapine 5 Mg Tablet) 5 mg PO HS [facility] Stop: 12/18/22 20:59 Last Admin: 11/27/22 20:28 Dose: 5 mg Pantoprazole Sodium (Pantoprazole 40 Mg Tab) 40 [facility] [place] [place]: 12/25/22 08:59 Last Admin: 11/28/22 08:24 Dose: 40 mg Ropinirole HCl (Ropinirole Hcl 1 Mg Tablet) 1 mg PO QPM SAMANTHA Stop: 12/24/22 20:59 Last Admin: 11/27/22 20:28 Dose: 1 mg Sennosides (Senna 8.6 Mg Tab) 8.6 mg PO QAM SAMANTHA Stop: 12/23/22 08:59 Last Admin: 11/28/22 08:25 Dose: 8.6 mg Topiramate (Topiramate 50 Mg Tab) 50 mg PO BID [facility] Stop: 12/21/22 10:59 Last Admin: 11/28/22 08:24 Dose: 50 mg Tramadol HCl (Tramadol Hcl 50 Mg Tablet) 50 mg PO Q6H PRN PRN Reason: Severe Pain (Scale 7, 8, 9,10) Stop: 12/27/22 19:59 Last Admin: 11/28/22 13:09 Dose: 50 mg
[2022-11-28] MEDS: OLANZapine 5 MG TABLET PO SCH (19:38)
[2022-11-28] MEDS: ENOXAPARIN INJ 40 MG/0.4 ML SYR SQ SCH (19:40)
[2022-11-28] MEDS: rOPINIRole HCL 1 MG TABLET PO SCH (19:40)
[2022-11-28] MEDS: MELATONIN 3 MG TAB PO PRN (19:48)
[2022-11-29] MEDS: traMADol HCL 50 MG TABLET PO PRN ×2 (06:03→12:36)
[2022-11-29] MEDS: GABAPENTIN 400 MG CAP PO SCH ×3 (09:06→20:59)
[2022-11-29] MEDS: DOXYCYCLINE HYCLATE 100 MG CAP PO SCH ×2 (09:06→20:59)
[2022-11-29] MEDS: SENNA 8.6 MG TAB PO SCH (09:07)
[2022-11-29] MEDS: CLOPIDOGREL BISULFATE 75 MG TAB PO SCH (09:07)
[2022-11-29] MEDS: PANTOprazole 40 MG TAB PO SCH (09:07)
[2022-11-29] MEDS: DULoxetine HCL 30 MG CAP PO SCH (09:07)
[2022-11-29] MEDS: ASPIRIN 81 MG ECTAB PO SCH (09:07)
[2022-11-29] MEDS: ISOSORBIDE MONO EXTENDED REL 30 MG TABCR PO SCH (09:07)
[2022-11-29] MEDS: TOPIRAMATE 50 MG TAB PO SCH ×2 (09:07→20:58)
[2022-11-29] MEDS: FUROSEMIDE 40 MG TAB PO SCH (09:07)
[2022-11-29] MEDS: METOPROLOL SUCC 50MG EXT REL TAB PO SCH ×2 (09:08→21:07)
[2022-11-29] MEDS: CEROVITE ADV FORMULA TAB PO SCH (09:08)
[2022-11-29] MEDS: ATORVASTATIN 40 MG TAB PO SCH (09:08)
[2022-11-29] MEDS: lisinopril 5 MG TAB PO SCH (09:08)
[2022-11-29] MEDS: NICOTINE 21 MG/24 HR TDSY TD SCH (09:09)
[2022-11-29] MEDS: LANTUS PER UNIT CHARGE SC SCH ×2 (09:14→21:15)
[2022-11-29] MEDS: INSULIN ASPART PER UNIT CHARGE SC SCH ×4 (09:14→21:15)
[2022-11-29] MEDS: DOCUSATE SODIUM 100 MG CAP PO SCH ×2 (09:21→20:59)
--- NOTE | 2022-11-29 16:46 | Hospitalist Progress Note ---
Date of Service November 29, 2022 Assessment & Plan (1) Encephalopathy: Plan ACTIVE PROBLEM LIST: Acute respiratory failure with hypoxia requiring intubation, extubated succesfully 11/21 COPD with exacerbation, oxygen dependent Pleural effusion status post thoracentesis on 11/03/2022, left-sided, exudate Acute metabolic encephalopathy Sepsis secondary to Multifocal pneumonia-resolved Acute on chronic combined systolic and diastolic heart failure Possible Lyme infection with neurologic involvement, LP declined-complete 21 day course doxycycline. Acute renal failure-resolved hypernatremia, which may have contributed to AMS-resolved. Mixed acid-base disorder-resolved Anemia of chronic disease requiring 2 units of blood to be transfused this admission. New onset thrombocytopenia-resolved, thought secondary to sepsis Peripheral arterial disease Urinary tract infection-treated Diabetes mellitus type 2-chronic, stable. Hypertension-chronic, at goal Coronary artery disease status post CABG-chronic, stable. Severe mitral regurgitation Left bundle branch block Tobacco use-smoking cessation recommended Mood disorder-appears to be at baseline, cont home medications. UTI with Klebsiella, completed antibiotic course, nasal MRSA positive Admitted 10/30-11/15, readmitted 11/16. Initial hospital stay was secondary to acute exacerbation of heart failure with acute on chronic respiratory failure. She was continued on Lasix at discharge with outpatient sleep study recommended by pulmonology. Cefdinir was continued for a UTI secondary to Klebsiella and has completed the antibiotic course. She was readmitted the following day being found down by the daughter with home oxygen not in place and somnolent. Work-up and hospital course as noted above. -back to mentating at baseline -Oxygenating at baseline today and improved clinically -restart home PO Lasix at fraction (20mg) of home dose-->increased to Lasix 40mg -Continue 21 days total course of doxycycline for possible neurologic Lyme involvement, noted RPR is nonreactive -Cont Zyprexa 5 mg p.o. nightly per home regimen -Cont home gabapentin and increased from 300mg BID to TID, cont Topamax per home regimen -she says she is on home tramadol, however, this is not prescribed per PDMP and she is not consistently on narcotics at home -hopeful that the increased gabapentin will help given the elevated risk of medication polypharmacy issues -Unclear source of acute on chronic anemia, continue PPI therapy and monitor bowel movements with CBC daily. Minimize phlebotomy -CAD/PAD-chronic, stable. Continue medical management -Pneumonia-treated and resolved -Smoking cessation recommended-nicotine patch started Due to ongoing neuropathic pain left hip and left back, increased gabapentin to 400mg TID on 11/28. Feels better today from a pain perspective, no other changes overnight. PT/OT recommending rehab vs SNF rehab. Appreciate CM efforts. Awaiting placement. Diet: DMII diet DVT prophylaxis: Lovenox CODE STATUS: Full code Dispo: Awaiting placement. Requiring additional review by [facility] given mental health history--this process has been requested and is being coordinated by case management. Admission and Anticipated Discharge Date Admission Date: November 16, 2022 Supervising Physician Co-Signing Physician Notes Attending addendum: The patient was seen and examined in medical floor She has been feeling much better today and denies any significant symptoms She has been waiting to be placed On examination: She remains hemodynamically stable Her labs and medications reviewed. Notes from the PA reviewed , assessment and plan discussed with the patient and agree with it. Dr Carroll Garcia Subjective The patient was seen and examined in 360-1. No new compaints overnight. Has been resting a bit better. No change to back pain, encouraged positional changes. No F/C, lightheadesness, CP, SOB, N/V, abd pain, dysuria, diarrhea or constipation. Review of Systems Review of Systems: At least ten systems reviewed and negative except as noted in the HPI. Physical Exam Physical Exam: Gen: WD/WN, NAD, resting in bed, A&Ox3, ill appearing HEENT: Normocephalic, atraumatic, conjunctivae moist, sclerae anicteric, mucous membranes moist Lung: Diminished lung sounds bilaterally Heart: Regular rate, regular rhythm, + murmur, trace edema Abdomen: Soft, NT, ND +BS x 4 Extremities: no edema Skin: Warm, no rash Results & Data Results & Data Vital Signs (Past 12 Hours) Vital Signs Temp Pulse Resp BP Pulse Ox O2 Del Method O2 Flow Rate 11/29/22 14:29 36.6 C 66 16 126/69 97 Nasal Cannula 4 11/29/22 10:49 4 11/29/22 07:49 36.7 C 71 16 120/70 92 Nasal Cannula 4 11/29/22 07:44 Nasal Cannula 4 Diagnostic Findings Chest X-Ray 11/16/22 15:45 XR chest 1V portable HISTORY: 62 years-old Female Dyspnea acute shortness of breath COMPARISON: 11/14/2022 TECHNIQUE: AP view of the chest FINDINGS: Cardiac silhouette is enlarged. Prior median sternotomy with CABG. Pulmonary vascular congestion. Trace pleural effusions. No pneumothorax, or lobar airspace consolidation. The bones appear grossly intact. Cholecystectomy. IMPRESSION: Cardiomegaly with pulmonary vascular congestion. ACT 112: Negative or not required by law. The above report was generated using voice recognition software. It may contain grammatical, syntax or spelling errors. Electronically signed by: Alexi Wu M.D. 11/16/2022 4:[address] 11/16/22 15:46 CT head/brain wo con CLINICAL HISTORY: 62 years-old Female with AMS. Acutely altered mental status TECHNIQUE: Multiple axial CT images of the head were obtained without contrast. A dose lowering technique was utilized adhering to the principles of ALARA. CT DOSE: 625.8 mGy.cm COMPARISON: None. FINDINGS: No acute intracranial hemorrhage, midline shift, intracranial mass, hydrocephalus, territorial ischemia or abnormal extra-axial collection. Involutional changes with mild white matter hypodensities likely representing chronic microvascular ischemic disease. The calvarium is intact. Prior bilateral lens repair. The paranasal sinuses, mastoid air cells, and middle ear cavities are clear. IMPRESSION: No acute intracranial abnormality. ACT 112: Negative or not required by law. The above report was generated using voice recognition software. It may contain grammatical, syntax or spelling errors. Electronically signed by: Alexi Wu M.D. 11/16/2022 4:20 PM Abdomen/Pelvis CT 11/16/22 18:45 Exam(s): CT ABDOMEN + PELVIS With Contrast IV Amt: 92 ml opti 320 EXAM: CT Abdomen and Pelvis With Intravenous Contrast CLINICAL HISTORY: Reason for exam: elevated WBC, confusion. TECHNIQUE: Axial computed tomography images of the abdomen and pelvis with intravenous contrast. CTDI is 26.39 mGy and DLP is 1287.65 mGy-cm. Automated exposure control was utilized for the study. A dose lowering technique was utilized adhering to the principles of ALARA. CONTRAST: Patient received 92 ml opti 320 of IV contrast COMPARISON: No relevant prior studies available. FINDINGS: Lung bases: Unremarkable. No mass. No consolidation. Heart: Cardiomegaly. ABDOMEN: Liver: Unremarkable. No focal hepatic lesion. Gallbladder and bile ducts: Cholecystectomy. No ductal dilation. Pancreas: Unremarkable. No mass. No ductal dilation. Spleen: Unremarkable. No splenomegaly. Adrenals: Bilateral adrenal nodules, limited in evaluation due to contrast. These may represent adenomas and can be confirmed on a noncontrast CT scan. Kidneys and ureters: Unremarkable. No solid mass. No hydronephrosis. Stomach and bowel: Diverticulosis, without acute diverticulitis. No small bowel obstruction. No free air. PELVIS: Appendix: No findings to suggest acute appendicitis. Bladder: Unremarkable. No mass. Reproductive: Hysterectomy. ABDOMEN and PELVIS: Intraperitoneal space: See above. Bones/joints: Sternotomy wires. Degenerative changes of the spine. No acute fracture. No dislocation. Soft tissues: Unremarkable. Vasculature: Atherosclerotic changes of the aorta. No abdominal aortic aneurysm. Lymph nodes: Unremarkable. No enlarged lymph nodes. IMPRESSION: 1. Bilateral adrenal nodules, limited in evaluation due to contrast. These may represent adenomas and can be confirmed on a noncontrast CT scan. 2. Cholecystectomy. 3. Hysterectomy. 4. Diverticulosis, without acute diverticulitis. No small bowel obstruction. No free air. Electronically signed by: Bismark Myles MD 11/16/22 19:[address] 11/18/22 08:55 CT chest diagnostic wo con CT DOSE: 735.65 mGy.cm CLINICAL HISTORY: 62 years-old Female with sepsis, SOB. 2 sepsis with shortness of breath TECHNIQUE: Multiaxial CT images of the chest were performed without contrast. A dose lowering technique was utilized adhering to the principles of ALARA. COMPARISON: CT chest 11/14/2022 FINDINGS: Limited exam secondary to positioning. Moderate to marked cardiomegaly. Prior median sternotomy with CABG. Extensive [place] coronary artery calcifications. No pericardial effusion or thoracic aortic aneurysm. Dilated pulmonary artery redemonstrated suggestive of pulmonary arterial hypertension. Mild mediastinal and hilar lymphadenopathy is again noted with nodes measuring up to approximately 12 mm. Unremarkable thyroid. Small pleural effusions. Left hemidiaphragmatic elevation. Progressive pulmonary edema with intralobular septal thickening, intermixed groundglass and consolidative opacities. Consolidation is most pronounced within the left lung. Mild left lung volume loss. Dependent right lower lobe opacities suggest probable atelectasis. 4 mm solid nodule of the right upper lobe again noted. No suspicious pulmonary nodules or masses. Mild left lower lobe mucous plugging. Cholecystectomy. Asymmetric left perinephric inflammatory stranding unchanged benign-appearing adrenal gland thickening. Cholecystectomy. Unremarkable soft tissues. Degenerative changes of the shoulders and spine. IMPRESSION: 1. Cardiomegaly with progressive interstitial and alveolar pulmonary edema with small pleural effusions. 2. Additional dependent consolidations of the left upper and lower lobes may represent atelectasis versus pneumonia. 3. Unchanged mediastinal and hilar lymphadenopathy. 4. Nonspecific asymmetric left perinephric stranding. Correlate with urinalysis to exclude infection. 5. Additional findings as above. ACT 112: Negative or not required by law. Electronically signed by: Alexi Wu M.D. 11/18/2022 11:43 AM Chest X-Ray 11/18/22 23:51 SINGLE VIEW CHEST CLINICAL HISTORY: Hypoxia. FINDINGS: An AP, portable, semierect chest radiograph is compared to study dated 11/16/2022 and correlated with chest CT dated 11/18/2022. The examination is degraded by portable technique and patient rotation. The patient is status post midline sternotomy. The heart is enlarged noting atherosclerotic calcification of the thoracic aorta. There is pulmonary vascular congestion with mild interstitial edema. There are trace pleural effusions with dependent atelectasis. No pneumothorax is seen. The skeletal structures are osteopenic. The bony thorax is grossly intact. Cholecystectomy clips are noted in the right upper quadrant. IMPRESSION: 1. Cardiomegaly with evidence of congestive failure and mild pulmonary edema. This has worsened as compared to 11/16/2022. 2. Small pleural effusions. ACT 112: Negative or not required by law. Electronically signed by: Geovani Dumont M.D. 11/19/2022 7:[address] 11/19/22 20:59 CT SCAN OF THE BRAIN WITHOUT IV CONTRAST CLINICAL HISTORY: Change in mental status. Unequal pupils. COMPARISON STUDY: CT of the brain dated 11/16/2022. TECHNIQUE: Unenhanced axial CT scan of the brain is performed from the vertex to the skull base. A dose lowering technique was utilized adhering to the principles of ALARA. CT DOSE: 1499.97 mGy.cm FINDINGS: Brain parenchyma: There is age-related involutional change noting minimal microangiopathic disease. There is no hemorrhage, mass effect, or evidence of acute territorial ischemia by CT criteria. Yuen-white matter differentiation is preserved. No extra-axial fluid collection is seen. Ventricles, sulci, cisterns: Prominent secondary to involutional change. Intracranial vasculature: There is atherosclerotic calcification of the cavernous carotid arteries. Calvarium: Unremarkable. Sinuses and mastoids: The paranasal sinuses are clear. The mastoid air cells are well pneumatized. Orbits: The bony orbits are grossly intact. There are bilateral ocular lens implants. IMPRESSION: There is no hemorrhage, mass effect, or evidence of acute territorial ischemia by CT criteria. No change from 11/16/2022. ACT 112: Negative or not required by law. Electronically signed by: Geovani Dumont M.D. 11/19/2022 10:15 PM Chest X-Ray 11/20/22 07:00 SINGLE VIEW CHEST CLINICAL HISTORY: Follow-up congestive failure. FINDINGS: An AP, portable, upright chest radiograph is compared to study dated 11/19/2022 and correlated with chest CT dated 11/18/2022. The patient is status post midline sternotomy. The heart is enlarged noting atherosclerotic calcification of the thoracic aorta. There is persistent pulmonary vascular congestion. Airspace opacities likely represent mild pulmonary edema. There are trace pleural effusions with dependent atelectasis. No pneumothorax is seen. The skeletal structures are osteopenic. The bony thorax is grossly intact. Cholecystectomy clips are noted in the right upper quadrant. IMPRESSION: 1. Cardiomegaly with evidence of congestive failure. Mild bilateral airspace opacities likely represent pulmonary edema. Correlate clinically for evidence of a superimposed pneumonia. Findings are similar to yesterday. 2. Trace pleural effusions. ACT 112: Negative or not required by law. Electronically signed by: Geovani Dumont M.D. 11/20/2022 8:14 AM Chest X-Ray 11/20/22 09:12 SINGLE VIEW CHEST CLINICAL HISTORY: Respiratory failure. Intubation. FINDINGS: An AP, portable, upright chest radiograph is compared to performed earlier this day 11/20/2022 and correlated with chest CT dated 11/18/2022. An endotracheal tube has been placed. The tip projects approximately 4 cm above the ava. An enteric tube has been placed. The tip projects below the diaphragm over the stomach. The patient is status post midline sternotomy. The heart is enlarged noting atherosclerotic calcification of the thoracic aorta. There is persistent pulmonary vascular congestion. Airspace opacities likely represent mild pulmonary edema. There are trace pleural effusions with dependent atelectasis. No pneumothorax is seen. The skeletal structures are osteopenic. The bony thorax is grossly intact. Cholecystectomy clips are noted in the right upper quadrant. IMPRESSION: 1. Endotracheal and enteric tubes have been placed as above. 2. Cardiomegaly with evidence of congestive failure. Mild bilateral airspace opacities likely represent pulmonary edema. Correlate clinically for evidence of a superimposed pneumonia. This is unchanged from today's earlier examination. 3. Trace pleural effusions. ACT 112: Negative or not required by law. Electronically signed by: Geovani Dumont M.D. 11/20/2022 9:38 AM Brain MRI 11/20/22 17:24 MRI OF THE BRAIN COMBO CLINICAL HISTORY: Change in mental status. COMPARISON STUDY: CT of the brain dated 11/19/2022. TECHNIQUE: MRI of the brain was performed utilizing various T1 and T2-weighted sequences in the axial, sagittal, and coronal planes. Contrast-enhanced sequences were acquired following the administration of 6.4 cc of Gadavist. FINDINGS: Brain parenchyma: There is mild age-related change. There is no hemorrhage or mass effect. There is no restricted diffusion to suggest acute ischemia. No enhancing mass lesion is identified on the postcontrast images. Yuen-white matter differentiation is preserved. No extra-axial fluid collection is seen. The cerebellar tonsils are normal in configuration. Ventricles, sulci, and cisterns: Normal in configuration. Pituitary and sella: Partially empty sella is incidentally noted. Intracranial vasculature: Normal flow voids are maintained at the skull base. Orbits: The bony orbits are grossly intact. Orbital contents are normal in appearance nothing bilateral ocular lens implant. Sinuses and mastoids: The sinuses and mastoids are clear. Secretions are noted in the pharynx. Calvarium: Unremarkable. Cervical cord: Partially visualized cervical spinal cord is normal in morphology and signal intensity. IMPRESSION: No acute intracranial abnormality. ACT 112: Negative or not required by law. Electronically signed by: Geovani Dumont M.D. 11/20/2022 1:41 PM Chest X-Ray 11/21/22 07:00 XR chest 1V portable CLINICAL HISTORY: Respiratory failure. COMPARISON STUDY: Chest CT November 18, 2022. Chest radiograph November 20, 2022. FINDINGS: Tip of endotracheal tube is 2.5 cm above the ava. Tip of nasogastric tube is below the lower aspect of this image but at least within the stomach. There are median sternotomy wires and mediastinal surgical clips. Cardiomegaly is unchanged. Interstitial thickening and airspace opacities have improved. Small left pleural effusion is noted. There is no pneumothorax. IMPRESSION: 1. Interval improvement in pulmonary edema. 2. Small left pleural effusion. No pneumothorax. 3. Satisfactory positioning of the endotracheal and nasogastric tubes. ACT 112: Negative or not required by law. Electronically signed by: Grover Delacruz M.D. 11/21/2022 7:56 AM
[2022-11-29] MEDS ORDERED: POLYETHYLENE (MIRALAX) 17 GM PACK PO PRN (16:57)
[2022-11-29] MEDS: rOPINIRole HCL 1 MG TABLET PO SCH (20:59)
[2022-11-29] MEDS: OLANZapine 5 MG TABLET PO SCH (20:59)
[2022-11-29] MEDS: ENOXAPARIN INJ 40 MG/0.4 ML SYR SQ SCH (21:08)
[2022-11-30] MEDS: MELATONIN 3 MG TAB PO PRN (00:43)
[2022-11-30] MEDS ORDERED: INFLUENZA VIRUS QUADRIVALENT VACCINE (IIV4) 0.5 ML SYR IM ONE (08:00)
[2022-11-30] MEDS: INSULIN ASPART PER UNIT CHARGE SC SCH ×4 (09:07→22:17)
[2022-11-30] MEDS: lisinopril 5 MG TAB PO SCH (09:08)
[2022-11-30] MEDS: DOCUSATE SODIUM 100 MG CAP PO SCH ×2 (09:08→21:56)
[2022-11-30] MEDS: DOXYCYCLINE HYCLATE 100 MG CAP PO SCH ×2 (09:08→21:52)
[2022-11-30] MEDS: ASPIRIN 81 MG ECTAB PO SCH (09:08)
[2022-11-30] MEDS: FUROSEMIDE 40 MG TAB PO SCH (09:08)
[2022-11-30] MEDS: ATORVASTATIN 40 MG TAB PO SCH (09:08)
[2022-11-30] MEDS: METOPROLOL SUCC 50MG EXT REL TAB PO SCH ×2 (09:08→21:53)
[2022-11-30] MEDS: GABAPENTIN 400 MG CAP PO SCH ×3 (09:08→21:52)
[2022-11-30] MEDS: DULoxetine HCL 30 MG CAP PO SCH (09:08)
[2022-11-30] MEDS: LANTUS PER UNIT CHARGE SC SCH ×2 (09:08→22:17)
[2022-11-30] MEDS: CLOPIDOGREL BISULFATE 75 MG TAB PO SCH (09:08)
[2022-11-30] MEDS: SENNA 8.6 MG TAB PO SCH (09:09)
[2022-11-30] MEDS: NICOTINE 21 MG/24 HR TDSY TD SCH (09:09)
[2022-11-30] MEDS: TOPIRAMATE 50 MG TAB PO SCH ×2 (09:09→21:51)
[2022-11-30] MEDS: ISOSORBIDE MONO EXTENDED REL 30 MG TABCR PO SCH (09:09)
[2022-11-30] MEDS: CEROVITE ADV FORMULA TAB PO SCH (09:09)
[2022-11-30] MEDS: PANTOprazole 40 MG TAB PO SCH (09:09)
[2022-11-30 09:18] LABS: Creatinine Clr Calc Pharmacy 63.6 ml/min; Est GFR (African American) 87.6 ml/min; Est GFR (Non-African American) 75.6 ml/min
--- NOTE | 2022-11-30 14:49 | Hospitalist Progress Note ---
Date of Service November 30, 2022 Assessment & Plan (1) Encephalopathy: Plan ACTIVE PROBLEM LIST: Acute respiratory failure with hypoxia requiring intubation, extubated successfully 11/21 COPD with exacerbation, oxygen dependent Pleural effusion status post thoracentesis on 11/03/2022, left-sided, exudate Acute metabolic encephalopathy Sepsis secondary to Multifocal pneumonia-resolved Acute on chronic combined systolic and diastolic heart failure Possible Lyme infection with neurologic involvement, LP declined-complete 21 day course doxycycline. Acute renal failure-resolved hypernatremia, which may have contributed to AMS-resolved. Mixed acid-base disorder-resolved Anemia of chronic disease requiring 2 units of blood to be transfused this admission. New onset thrombocytopenia-resolved, thought secondary to sepsis Peripheral arterial disease Urinary tract infection-treated Diabetes mellitus type 2-chronic, stable. Hypertension-chronic, at goal Coronary artery disease status post CABG-chronic, stable. Severe mitral regurgitation Left bundle branch block Tobacco use-smoking cessation recommended Mood disorder-appears to be at baseline, cont home medications. UTI with Klebsiella, completed antibiotic course, nasal MRSA positive Admitted 10/30-11/15, readmitted 11/16. Initial hospital stay was secondary to acute exacerbation of heart failure with acute on chronic respiratory failure. She was continued on Lasix at discharge with outpatient sleep study recommended by pulmonology. Cefdinir was continued for a UTI secondary to Klebsiella and has completed the antibiotic course. She was readmitted the following day being found down by the daughter with home oxygen not in place and somnolent. Work-up and hospital course as noted above. -back to mentating at baseline -Oxygenating at baseline today and improved clinically -restart home PO Lasix at fraction (20mg) of home dose-->increased to Lasix 40mg -Continue 21 days total course of doxycycline for possible neurologic Lyme involvement, noted RPR is nonreactive (through 12/11) -Cont Zyprexa 5 mg p.o. nightly per home regimen -she says she is on home tramadol, however, this is not prescribed per PDMP and she is not consistently on narcotics at home -Increased gabapentin to 400mg BID to TID, cont Topamax per home regimen -Hopeful that the increased gabapentin will help given the elevated risk of medication polypharmacy issues -Unclear source of acute on chronic anemia, continue PPI therapy and monitor bowel movements with CBC daily. Minimize phlebotomy -CAD/PAD-chronic, stable. Continue medical management -Pneumonia-treated and resolved -Smoking cessation recommended-nicotine patch started Diet: DMII diet DVT prophylaxis: Lovenox CODE STATUS: Full code Dispo: Awaiting placement. Requiring additional review by [facility] given mental health history--this process has been requested and is being coordinated by case management. Per update on 11/30. PT/OT re-evaluation recommending rehab, possible bed at [facility] this Monday or Monday pending paperwork. 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 No new complaints overnight. Sitting up eating her meal. No new issues. No F/C, lightheadedness, CP, SOB, N/V, abd pain, dysuria, diarrhea or constipation. Review of Systems Review of Systems: At least ten systems reviewed and negative except as noted in the HPI. Physical Exam Physical Exam: Gen: WD/WN, NAD, resting in bed, A&Ox3, ill appearing HEENT: Normocephalic, atraumatic, conjunctivae moist, sclerae anicteric, mucous membranes moist Lung: Diminished lung sounds bilaterally Heart: Regular rate, regular rhythm, + murmur, trace edema Abdomen: Soft, NT, ND +BS x 4 Extremities: no edema Skin: Warm, no rash Results & Data Results & Data Vital Signs (Past 12 Hours) Vital Signs Temp Pulse Resp BP Pulse Ox O2 Del Method O2 Flow Rate 11/30/22 12:00 Nasal Cannula 4 11/30/22 07:34 36.6 C 76 18 152/70 H 95 Nasal Cannula 4 Laboratory Results BMP 11/30/22 08:11 Creatinine 0.82 Diagnostic Findings Chest X-Ray 11/16/22 15:45 XR chest 1V portable HISTORY: 62 years-old Female Dyspnea acute shortness of breath COMPARISON: 11/14/2022 TECHNIQUE: AP view of the chest FINDINGS: Cardiac silhouette is enlarged. Prior median sternotomy with CABG. Pulmonary vascular congestion. Trace pleural effusions. No pneumothorax, or lobar airspace consolidation. The bones appear grossly intact. Cholecystectomy. IMPRESSION: Cardiomegaly with pulmonary vascular congestion. ACT 112: Negative or not required by law. The above report was generated using voice recognition software. It may contain grammatical, syntax or spelling errors. Electronically signed by: Alexi Wu M.D. 11/16/2022 4:[address] 11/16/22 15:46 CT head/brain wo con CLINICAL HISTORY: 62 years-old Female with AMS. Acutely altered mental status TECHNIQUE: Multiple axial CT images of the head were obtained without contrast. A dose lowering technique was utilized adhering to the principles of ALARA. CT DOSE: 625.8 mGy.cm COMPARISON: None. FINDINGS: No acute intracranial hemorrhage, midline shift, intracranial mass, hydrocephalus, territorial ischemia or abnormal extra-axial collection. Involutional changes with mild white matter hypodensities likely representing chronic microvascular ischemic disease. The calvarium is intact. Prior bilateral lens repair. The paranasal sinuses, mastoid air cells, and middle ear cavities are clear. IMPRESSION: No acute intracranial abnormality. ACT 112: Negative or not required by law. The above report was generated using voice recognition software. It may contain grammatical, syntax or spelling errors. Electronically signed by: Alexi Wu M.D. 11/16/2022 4:20 PM Abdomen/Pelvis CT 11/16/22 18:45 Exam(s): CT ABDOMEN + PELVIS With Contrast IV Amt: 92 ml opti 320 EXAM: CT Abdomen and Pelvis With Intravenous Contrast CLINICAL HISTORY: Reason for exam: elevated WBC, confusion. TECHNIQUE: Axial computed tomography images of the abdomen and pelvis with intravenous contrast. CTDI is 26.39 mGy and DLP is 1287.65 mGy-cm. Automated exposure control was utilized for the study. A dose lowering technique was utilized adhering to the principles of ALARA. CONTRAST: Patient received 92 ml opti 320 of IV contrast COMPARISON: No relevant prior studies available. FINDINGS: Lung bases: Unremarkable. No mass. No consolidation. Heart: Cardiomegaly. ABDOMEN: Liver: Unremarkable. No focal hepatic lesion. Gallbladder and bile ducts: Cholecystectomy. No ductal dilation. Pancreas: Unremarkable. No mass. No ductal dilation. Spleen: Unremarkable. No splenomegaly. Adrenals: Bilateral adrenal nodules, limited in evaluation due to contrast. These may represent adenomas and can be confirmed on a noncontrast CT scan. Kidneys and ureters: Unremarkable. No solid mass. No hydronephrosis. Stomach and bowel: Diverticulosis, without acute diverticulitis. No small bowel obstruction. No free air. PELVIS: Appendix: No findings to suggest acute appendicitis. Bladder: Unremarkable. No mass. Reproductive: Hysterectomy. ABDOMEN and PELVIS: Intraperitoneal space: See above. Bones/joints: Sternotomy wires. Degenerative changes of the spine. No acute fracture. No dislocation. Soft tissues: Unremarkable. Vasculature: Atherosclerotic changes of the aorta. No abdominal aortic aneurysm. Lymph nodes: Unremarkable. No enlarged lymph nodes. IMPRESSION: 1. Bilateral adrenal nodules, limited in evaluation due to contrast. These may represent adenomas and can be confirmed on a noncontrast CT scan. 2. Cholecystectomy. 3. Hysterectomy. 4. Diverticulosis, without acute diverticulitis. No small bowel obstruction. No free air. Electronically signed by: Bismark Myles MD 11/16/22 19:[address] 11/18/22 08:55 CT chest diagnostic wo con CT DOSE: 735.65 mGy.cm CLINICAL HISTORY: 62 years-old Female with sepsis, SOB. 2 sepsis with shortness of breath TECHNIQUE: Multiaxial CT images of the chest were performed without contrast. A dose lowering technique was utilized adhering to the principles of ALARA. COMPARISON: CT chest 11/14/2022 FINDINGS: Limited exam secondary to positioning. Moderate to marked cardiomegaly. Prior median sternotomy with CABG. Extensive [place] coronary artery calcifications. No pericardial effusion or thoracic aortic aneurysm. Dilated pulmonary artery redemonstrated suggestive of pulmonary arterial hypertension. Mild mediastinal and hilar lymphadenopathy is again noted with nodes measuring up to approximately 12 mm. Unremarkable thyroid. Small pleural effusions. Left hemidiaphragmatic elevation. Progressive pulmonary edema with intralobular septal thickening, intermixed groundglass and consolidative opacities. Consolidation is most pronounced within the left lung. Mild left lung volume loss. Dependent right lower lobe opacities suggest probable atelectasis. 4 mm solid nodule of the right upper lobe again noted. No suspicious pulmonary nodules or masses. Mild left lower lobe mucous plugging. Cholecystectomy. Asymmetric left perinephric inflammatory stranding unchanged benign-appearing adrenal gland thickening. Cholecystectomy. Unremarkable soft tissues. Degenerative changes of the shoulders and spine. IMPRESSION: 1. Cardiomegaly with progressive interstitial and alveolar pulmonary edema with small pleural effusions. 2. Additional dependent consolidations of the left upper and lower lobes may represent atelectasis versus pneumonia. 3. Unchanged mediastinal and hilar lymphadenopathy. 4. Nonspecific asymmetric left perinephric stranding. Correlate with urinalysis to exclude infection. 5. Additional findings as above. ACT 112: Negative or not required by law. Electronically signed by: Alexi Wu M.D. 11/18/2022 11:43 AM Chest X-Ray 11/18/22 23:51 SINGLE VIEW CHEST CLINICAL HISTORY: Hypoxia. FINDINGS: An AP, portable, semierect chest radiograph is compared to study dated 11/16/2022 and correlated with chest CT dated 11/18/2022. The examination is degraded by portable technique and patient rotation. The patient is status post midline sternotomy. The heart is enlarged noting atherosclerotic calcification of the thoracic aorta. There is pulmonary vascular congestion with mild interstitial edema. There are trace pleural effusions with dependent atelectasis. No pneumothorax is seen. The skeletal structures are osteopenic. The bony thorax is grossly intact. Cholecystectomy clips are noted in the right upper quadrant. IMPRESSION: 1. Cardiomegaly with evidence of congestive failure and mild pulmonary edema. This has worsened as compared to 11/16/2022. 2. Small pleural effusions. ACT 112: Negative or not required by law. Electronically signed by: Geovani Dumont M.D. 11/19/2022 7:[address] 11/19/22 20:59 CT SCAN OF THE BRAIN WITHOUT IV CONTRAST CLINICAL HISTORY: Change in mental status. Unequal pupils. COMPARISON STUDY: CT of the brain dated 11/16/2022. TECHNIQUE: Unenhanced axial CT scan of the brain is performed from the vertex to the skull base. A dose lowering technique was utilized adhering to the principles of ALARA. CT DOSE: 1499.97 mGy.cm FINDINGS: Brain parenchyma: There is age-related involutional change noting minimal microangiopathic disease. There is no hemorrhage, mass effect, or evidence of acute territorial ischemia by CT criteria. Yuen-white matter differentiation is preserved. No extra-axial fluid collection is seen. Ventricles, sulci, cisterns: Prominent secondary to involutional change. Intracranial vasculature: There is atherosclerotic calcification of the cavernous carotid arteries. Calvarium: Unremarkable. Sinuses and mastoids: The paranasal sinuses are clear. The mastoid air cells are well pneumatized. Orbits: The bony orbits are grossly intact. There are bilateral ocular lens implants. IMPRESSION: There is no hemorrhage, mass effect, or evidence of acute territorial ischemia by CT criteria. No change from 11/16/2022. ACT 112: Negative or not required by law. Electronically signed by: Geovani Dumont M.D. 11/19/2022 10:15 PM Chest X-Ray 11/20/22 07:00 SINGLE VIEW CHEST CLINICAL HISTORY: Follow-up congestive failure. FINDINGS: An AP, portable, upright chest radiograph is compared to study dated 11/19/2022 and correlated with chest CT dated 11/18/2022. The patient is status post midline sternotomy. The heart is enlarged noting atherosclerotic calci fication of the thoracic aorta. There is persistent pulmonary vascular congestion. Airspace opacities likely represent mild pulmonary edema. There are trace pleural effusions with dependent atelectasis. No pneumothorax is seen. The skeletal structures are osteopenic. The bony thorax is grossly intact. Cholecystectomy clips are noted in the right upper quadrant. IMPRESSION: 1. Cardiomegaly with evidence of congestive failure. Mild bilateral airspace opacities likely represent pulmonary edema. Correlate clinically for evidence of a superimposed pneumonia. Findings are similar to yesterday. 2. Trace pleural effusions. ACT 112: Negative or not required by law. Electronically signed by: Geovani Dumont M.D. 11/20/2022 8:14 AM Chest X-Ray 11/20/22 09:12 SINGLE VIEW CHEST CLINICAL HISTORY: Respiratory failure. Intubation. FINDINGS: An AP, portable, upright chest radiograph is compared to performed earlier this day 11/20/2022 and correlated with chest CT dated 11/18/2022. An endotracheal tube has been placed. The tip projects approximately 4 cm above the ava. An enteric tube has been placed. The tip projects below the diaphragm over the stomach. The patient is status post midline sternotomy. The heart is enlarged noting atherosclerotic calcification of the thoracic aorta. There is persistent pulmonary vascular congestion. Airspace opacities likely represent mild pulmonary edema. There are trace pleural effusions with dependent atelectasis. No pneumothorax is seen. The skeletal structures are osteopenic. The bony thorax is grossly intact. Cholecystectomy clips are noted in the right upper quadrant. IMPRESSION: 1. Endotracheal and enteric tubes have been placed as above. 2. Cardiomegaly with evidence of congestive failure. Mild bilateral airspace opacities likely represent pulmonary edema. Correlate clinically for evidence of a superimposed pneumonia. This is unchanged from today's earlier examination. 3. Trace pleural effusions. ACT 112: Negative or not required by law. Electronically signed by: Geovani Dumont M.D. 11/20/2022 9:38 AM Brain MRI 11/20/22 17:24 MRI OF THE BRAIN COMBO CLINICAL HISTORY: Change in mental status. COMPARISON STUDY: CT of the brain dated 11/19/2022. TECHNIQUE: MRI of the brain was performed utilizing various T1 and T2-weighted sequences in the axial, sagittal, and coronal planes. Contrast-enhanced sequences were acquired following the administration of 6.4 cc of Gadavist. FINDINGS: Brain parenchyma: There is mild age-related change. There is no hemorrhage or mass effect. There is no restricted diffusion to suggest acute ischemia. No enhancing mass lesion is identified on the postcontrast images. Yuen-white matter differentiation is preserved. No extra-axial fluid collection is seen. The cerebellar tonsils are normal in configuration. Ventricles, sulci, and cisterns: Normal in configuration. Pituitary and sella: Partially empty sella is incidentally noted. Intracranial vasculature: Normal flow voids are maintained at the skull base. Orbits: The bony orbits are grossly intact. Orbital contents are normal in appea angel nothing bilateral ocular lens implant. Sinuses and mastoids: The sinuses and mastoids are clear. Secretions are noted in the pharynx. Calvarium: Unremarkable. Cervical cord: Partially visualized cervical spinal cord is normal in morphology and signal intensity. IMPRESSION: No acute intracranial abnormality. ACT 112: Negative or not required by law. Electronically signed by: Geovani Dumont M.D. 11/20/2022 1:41 PM Chest X-Ray 11/21/22 07:00 XR chest 1V portable CLINICAL HISTORY: Respiratory failure. COMPARISON STUDY: Chest CT November 18, 2022. Chest radiograph November 20, 2022. FINDINGS: Tip of endotracheal tube is 2.5 cm above the ava. Tip of nasogastric tube is below the lower aspect of this image but at least within the stomach. There are median sternotomy wires and mediastinal surgical clips. Cardiomegaly is unchanged. Interstitial thickening and airspace opacities have improved. Small left pleural effusion is noted. There is no pneumothorax. IMPRESSION: 1. Interval improvement in pulmonary edema. 2. Small left pleural effusion. No pneumothorax. 3. Satisfactory positioning of the endotracheal and nasogastric tubes. ACT 112: Negative or not required by law. Electronically signed by: Grover Delacruz M.D. 11/21/2022 7:56 AM
[2022-11-30] MEDS: traMADol HCL 50 MG TABLET PO PRN (18:09)
[2022-11-30] MEDS: OLANZapine 5 MG TABLET PO SCH (21:51)
[2022-11-30] MEDS: rOPINIRole HCL 1 MG TABLET PO SCH (21:51)
[2022-11-30] MEDS: ENOXAPARIN INJ 40 MG/0.4 ML SYR SQ SCH (21:53)
[2022-12-01] MEDS: INSULIN ASPART PER UNIT CHARGE SC SCH ×4 (09:23→20:27)
[2022-12-01] MEDS: LANTUS PER UNIT CHARGE SC SCH ×2 (09:24→20:28)
[2022-12-01] MEDS: ASPIRIN 81 MG ECTAB PO SCH (09:26)
[2022-12-01] MEDS: ATORVASTATIN 40 MG TAB PO SCH (09:27)
[2022-12-01] MEDS: CLOPIDOGREL BISULFATE 75 MG TAB PO SCH (09:28)
[2022-12-01] MEDS: DULoxetine HCL 30 MG CAP PO SCH (09:28)
[2022-12-01] MEDS: DOXYCYCLINE HYCLATE 100 MG CAP PO SCH ×2 (09:28→20:04)
[2022-12-01] MEDS: FUROSEMIDE 40 MG TAB PO SCH (09:29)
[2022-12-01] MEDS: lisinopril 5 MG TAB PO SCH (09:30)
[2022-12-01] MEDS: ISOSORBIDE MONO EXTENDED REL 30 MG TABCR PO SCH (09:30)
[2022-12-01] MEDS: METOPROLOL SUCC 50MG EXT REL TAB PO SCH ×2 (09:31→20:15)
[2022-12-01] MEDS: NICOTINE 21 MG/24 HR TDSY TD SCH (09:32)
[2022-12-01] MEDS: CEROVITE ADV FORMULA TAB PO SCH (09:32)
[2022-12-01] MEDS: PANTOprazole 40 MG TAB PO SCH (09:32)
[2022-12-01] MEDS: SENNA 8.6 MG TAB PO SCH (09:33)
[2022-12-01] MEDS: TOPIRAMATE 50 MG TAB PO SCH ×2 (09:33→20:03)
[2022-12-01] MEDS: GABAPENTIN 400 MG CAP PO SCH ×3 (09:34→20:02)
[2022-12-01] MEDS: DOCUSATE SODIUM 100 MG CAP PO SCH ×2 (09:39→20:11)
--- NOTE | 2022-12-01 16:31 | Hospitalist Progress Note ---
Date of Service December 01, 2022 Assessment & Plan (1) Encephalopathy: Plan ACTIVE PROBLEM LIST: Acute respiratory failure with hypoxia requiring intubation, extubated successfully 11/21 COPD with exacerbation, oxygen dependent Pleural effusion status post thoracentesis on 11/03/2022, left-sided, exudate Acute metabolic encephalopathy Sepsis secondary to Multifocal pneumonia-resolved Acute on chronic combined systolic and diastolic heart failure Possible Lyme infection with neurologic involvement, LP declined-complete 21 day course doxycycline. Acute renal failure-resolved hypernatremia, which may have contributed to AMS-resolved. Mixed acid-base disorder-resolved Anemia of chronic disease requiring 2 units of blood to be transfused this admission. New onset thrombocytopenia-resolved, thought secondary to sepsis Peripheral arterial disease Urinary tract infection-treated Diabetes mellitus type 2-chronic, stable. Hypertension-chronic, at goal Coronary artery disease status post CABG-chronic, stable. Severe mitral regurgitation Left bundle branch block Tobacco use-smoking cessation recommended Mood disorder-appears to be at baseline, cont home medications. UTI with Klebsiella, completed antibiotic course, nasal MRSA positive Admitted 10/30-11/15, readmitted 11/16. Initial hospital stay was secondary to acute exacerbation of heart failure with acute on chronic respiratory failure. She was continued on Lasix at discharge with outpatient sleep study recommended by pulmonology. Cefdinir was continued for a UTI secondary to Klebsiella and has completed the antibiotic course. She was readmitted the following day being found down by the daughter with home oxygen not in place and somnolent. Work-up and hospital course as noted above. -back to mentating at baseline -Oxygenating at baseline today and improved clinically -restart home PO Lasix at fraction (20mg) of home dose-->increased to Lasix 40mg -Continue 21 days total course of doxycycline for possible neurologic Lyme involvement, noted RPR is nonreactive (through 12/11) -Cont Zyprexa 5 mg p.o. nightly per home regimen -she says she is on home tramadol, however, this is not prescribed per PDMP and she is not consistently on narcotics at home -Increased gabapentin to 400mg BID to TID, cont Topamax per home regimen -Hopeful that the increased gabapentin will help given the elevated risk of medication polypharmacy issues -Unclear source of acute on chronic anemia, continue PPI therapy and monitor bowel movements with CBC daily. Minimize phlebotomy -CAD/PAD-chronic, stable. Continue medical management -Pneumonia-treated and resolved -Smoking cessation recommended-nicotine patch started -Clinically much better and awaiting placement -Denies any more signs and or symptoms of infection-we will finish the course of antibiotic through 12/11 as planned Diet: DMII diet DVT prophylaxis: Lovenox CODE STATUS: Full code Dispo: Awaiting placement. Requiring additional review by [facility] given mental health history--this process has been requested and is being coordinated by case management. Per update on 11/30. PT/OT re-evaluation recommending rehab, possible bed at [facility] this Monday or Monday pending paperwork. Admission and Anticipated Discharge Date Admission Date: November 16, 2022 Subjective 11/27/2022 The patient was seen and examined in medical floor Has not been feeling much better today Complains of increasing weakness and tiredness Denies any acute distress, pain or shortness of breath 11/28/2022 The patient was seen and examined in medical floor He has been feeling much better today Complains pain in the left hip and left leg Also back pain which she complains to be neuropathic pain 12/01/2022 The patient was seen and examined in medical floor She has been feeling much better and awaiting placement Still has minimal pain involving the left knee Review of Systems Review of Systems: At least ten systems reviewed and negative except as noted in the HPI. Physical Exam Physical Exam: Lying in bed comfortably Constitutional: well developed, well nourished, + ill appearing and + obese Eyes: PERRL, conjunctivae normal, anicteric sclerae ENMT: external ear and nose normal, oropharynx normal Neck: trachea midline, no thyromegaly Respiratory: no respiratory distress Auscultation: + diminished lung sounds and + crackles Cardiovascular: Rate/Rhythm: regular rate and regular rhythm; not tachycardic Heart Sounds: normal S1, normal S2 and + murmur (2/6 ESM over precordium) Extremities: + edema Gastrointestinal (Abdomen): Inspection/Auscultation: normal bowel sounds; abdomen not distended Percussion/Palpation: abdomen soft; abdomen nontender Neurologic: normal touch/pain/proprioception and moves all extremities (Has left AKA) Lymphatic: no cervical or axillary lymphadenopathy Results & Data Results & Data Vital Signs (Past 12 Hours) Vital Signs Temp Pulse Resp BP BP Pulse Ox O2 Del Method 12/01/22 15:59 36.6 C 71 16 119/66 95 Nasal Cannula 12/01/22 09:10 Nasal Cannula 12/01/22 09:26 74 132/62 12/01/22 08:26 36.6 C 71 16 134/71 96 Nasal Cannula O2 Flow Rate 12/01/22 15:59 3 12/01/22 09:10 3.5 12/01/22 09:26 12/01/22 08:26 2 Medications Administered Current Inpatient Medications Acetaminophen (Acetaminophen 325 Mg Tab) 650 mg PO Q4H PRN PRN Reason: Pain or Fever Stop: 12/25/22 01:22 Last Admin: 11/27/22 18:31 Dose: 650 mg Aspirin (Aspirin 81 Mg Ectab) 81 mg PO DAILY [facility] Stop: 12/24/22 08:59 Last Admin: 12/01/22 09:26 Dose: 81 mg Atorvastatin Calcium (Atorvastatin 40 Mg Tab) 80 mg PO DAILY [facility] Stop: 12/24/22 08:59 Last Admin: 12/01/22 09:27 Dose: 80 mg Clopidogrel Bisulfate (Clopidogrel Bisulfate 75 Mg Tab) 75 mg PO QAM [facility] Stop: 12/24/22 10:29 Last Admin: 12/01/22 09:28 Dose: 75 mg Dextrose (Dextrose 50% 50 Ml Syringe) 25 - 50 ml IV UD PRN; Protocol PRN Reason: Hypoglycemia Protocol Stop: 12/16/22 23:34 Diclofenac Sodium (Diclofenac Sod 1% Gel 100 Gm Tube) 2 gm EXT BID PRN; Protocol PRN Reason: Pain Stop: 12/27/22 22:59 Last Admin: 11/27/22 23:07 Dose: 2 gm Docusate Sodium (Docusate Sodium 100 Mg Cap) 100 mg PO BID [facility] Stop: 12/23/22 08:59 Last Admin: 12/01/22 09:39 Dose: 100 mg Doxycycline Hyclate (Doxycycline Hyclate 100 Mg Cap) 100 mg PO BID [facility] Stop: 12/08/22 22:00 Last Admin: 12/01/22 09:28 Dose: 100 mg Duloxetine HCl (Duloxetine Hcl 30 Mg Cap) 90 mg PO QAM [facility] Stop: 12/24/22 08:59 Last Admin: 12/01/22 09:28 Dose: 90 mg Enoxaparin Sodium (Enoxaparin Inj 40 Mg/0.4 Ml Syr) 40 mg SQ HS [facility] Stop: 12/20/22 20:59 Last Admin: 11/30/22 21:53 Dose: 40 mg Furosemide (Furosemide 40 Mg Tab) 40 mg PO DAILY [facility] Stop: 12/27/22 08:59 Last Admin: 12/01/22 09:29 Dose: 40 mg Gabapentin (Gabapentin 400 Mg Cap) 400 mg PO TID [facility] Stop: 12/28/22 13:59 Last Admin: 12/01/22 14:56 Dose: 400 mg Glucagon (Glucagon For Inj 1 Mg Vial) 1 mg SQ UD PRN; Protocol PRN Reason: Hypoglycemia Protocol Stop: 12/16/22 23:34 Glucose (Glucose 10 Tab/Tube) 4 - 8 tab PO UD PRN; Protocol PRN Reason: Hypoglycemia Treatment Stop: 12/16/22 23:34 Glucose (Glucose 40% Gel 15 Gm Tube) 15 - 30 gm PO UD PRN; Protocol PRN Reason: Hypoglycemia Protocol Stop: 12/16/22 23:34 Insulin Aspart (Insulin Aspart Per Unit Charge) 0 units SC ACHS [facility] Stop: 12/23/22 11:29 Last Admin: 12/01/22 12:42 Dose: 8 units Insulin Glargine (Lantus Per Unit Charge) 0 units SC BID [facility]; Protocol Stop: 12/21/22 09:14 Last Admin: 12/01/22 09:24 Dose: 10 units Ipratropium [place] (Ipratropium [place] Neb Soln 0.02% 2.5 Ml Vial) 0.5 mg INH Q6R PRN PRN Reason: Shortness Of Breath Or Wheezing Stop: 12/19/22 06:59 Isosorbide Mononitrate (Isosorbide [place] Extended Rel 30 Mg Tabcr) 30 mg PO QAM [facility] Stop: 12/25/22 08:59 Last Admin: 12/01/22 09:30 Dose: 30 mg Levalbuterol HCl (Levalbuterol 1.25 Mg/3 Ml Neb) 1.25 mg NEB Q6R PRN PRN Reason: Shortness Of Breath Or Wheezing Stop: 12/19/22 06:59 Lisinopril (Lisinopril 5 Mg Tab) 5 mg PO QAM [facility] Stop: 12/24/22 08:59 Last Admin: 12/01/22 09:30 Dose: 5 mg Melatonin (Melatonin 3 Mg Tab) 4.5 mg PO HS PRN PRN Reason: insomnia Stop: 12/16/22 23:34 Last Admin: 11/30/22 00:43 Dose: 4.5 mg Metoprolol Succinate (Metoprolol Succ 50mg Ext Rel Tab) 100 mg PO QAM [facility] Stop: 12/24/22 10:29 Last Admin: 12/01/22 09:31 Dose: 100 mg Metoprolol Succinate (Metoprolol Succ 50mg Ext Rel Tab) 50 mg PO HS [facility] Stop: 12/24/22 20:59 Last Admin: 11/30/22 21:53 Dose: 50 mg Miscellaneous (Carbohydrates For Hypoglycemia ) 15 - 30 gm PO UD PRN PRN Reason: Hypoglycemia Protocol Stop: 12/16/22 23:34 Miscellaneous (Remove Nicoderm Patch) 1 each N/A DAILY@0859 [facility] Stop: 12/25/22 08:58 Last Admin: 12/01/22 09:25 Dose: 1 each Multivitamins/Minerals (Cerovite Adv Formula Tab) 1 tab PO QAM [facility] Stop: 12/23/22 08:59 Last Admin: 12/01/22 09:32 Dose: 1 tab Nicotine (Nicotine 21 Mg/24 Hr Tdsy) 21 mg TD QAM [facility] Stop: 12/24/22 13:29 Last Admin: 12/01/22 09:32 Dose: 21 mg Olanzapine (Olanzapine 5 Mg Tablet) 5 mg PO HS [facility] Stop: 12/18/22 20:59 Last Admin: 11/30/22 21:51 Dose: 5 mg Pantoprazole Sodium (Pantoprazole 40 Mg Tab) [facility] [place]: 12/25/22 08:59 Last Admin: 12/01/22 09:32 Dose: 40 mg Polyethylene Glycol (Polyethylene (Miralax) 17 Gm Pack) 17 gm PO DAILY PRN PRN Reason: Constipation Stop: 12/29/22 16:56 Last Admin: 11/29/22 17:08 Dose: 17 gm Ropinirole HCl (Ropinirole Hcl 1 Mg Tablet) 1 mg PO QPM [facility] Stop: 12/24/22 20:59 Last Admin: 11/30/22 21:51 Dose: 1 mg Sennosides (Senna 8.6 Mg Tab) 8.6 mg PO QAM [facility] Stop: 12/23/22 08:59 Last Admin: 12/01/22 09:33 Dose: 8.6 mg Topiramate (Topiramate 50 Mg Tab) 50 mg PO BID [facility] Stop: 12/21/22 10:59 Last Admin: 12/01/22 09:33 Dose: 50 mg Tramadol HCl (Tramadol Hcl 50 Mg Tablet) 50 mg PO Q6H PRN PRN Reason: Severe Pain (Scale 7, 8, 9,10) Stop: 12/27/22 19:59 Last Admin: 11/30/22 18:09 Dose: 50 mg
[2022-12-01] MEDS: ENOXAPARIN INJ 40 MG/0.4 ML SYR SQ SCH (20:01)
[2022-12-01] MEDS: OLANZapine 5 MG TABLET PO SCH (20:03)
[2022-12-01] MEDS: rOPINIRole HCL 1 MG TABLET PO SCH (20:03)
[2022-12-01] MEDS: MELATONIN 3 MG TAB PO PRN (22:57)
[2022-12-02 07:29] LABS: Basophils # (auto) 0.03 K/uL (0.00-0.20); Basophils % (auto) 0.4 %; Eosinophils # (auto) 0.07 K/uL (0.00-0.50); Eosinophils % (auto) 0.9 %; Hematocrit (blood only) 26.2 % (37.0-47.0); Hemoglobin 7.9 g/dl (12.0-16.0); Immature Granulocytes # (auto) 0.16 K/uL (0.01-0.20); Immature Granulocytes % (auto) 1.9 %; Lymphocytes # (auto) 1.97 K/uL (1.20-3.40); Lymphocytes % (auto) 23.9 %; Mean Corpuscular Hemoglobin 29.9 pg (25.0-34.0); Mean Corpuscular Hgb Conc 30.2 g/dL (32.0-36.0); Mean Corpuscular Volume 99.2 fL (80.0-100.0); Mean Platelet Volume 12.1 fL (9.4-12.4); Monocytes # (auto) 2.77 K/uL (0.11-0.59); Monocytes % (auto) 33.7 %; Neutrophils # (auto) 3.23 K/uL (1.40-6.50); Neutrophils % (auto) 39.2 %; Platelet Count 245 K/uL (130-400); RDW Coefficient of Variation 20.3 % (11.5-14.5); Red Blood Count 2.64 M/uL (4.20-5.40); White Blood Count 8.23 K/ul (4.8-10.8)
[2022-12-02] MEDS: ACETAMINOPHEN 325 MG TAB PO PRN (07:34)
[2022-12-02] MEDS: PANTOprazole 40 MG TAB PO SCH (07:35)
[2022-12-02] MEDS: lisinopril 5 MG TAB PO SCH (07:35)
[2022-12-02] MEDS: CEROVITE ADV FORMULA TAB PO SCH (07:36)
[2022-12-02] MEDS: ASPIRIN 81 MG ECTAB PO SCH (07:36)
[2022-12-02] MEDS: FUROSEMIDE 40 MG TAB PO SCH (07:36)
[2022-12-02] MEDS: ATORVASTATIN 40 MG TAB PO SCH (07:37)
[2022-12-02] MEDS: METOPROLOL SUCC 50MG EXT REL TAB PO SCH ×2 (07:37→21:19)
[2022-12-02] MEDS: SENNA 8.6 MG TAB PO SCH (07:37)
[2022-12-02] MEDS: DOXYCYCLINE HYCLATE 100 MG CAP PO SCH ×2 (07:38→21:18)
[2022-12-02] MEDS: TOPIRAMATE 50 MG TAB PO SCH ×2 (07:38→21:19)
[2022-12-02] MEDS: CLOPIDOGREL BISULFATE 75 MG TAB PO SCH (07:39)
[2022-12-02] MEDS: DULoxetine HCL 30 MG CAP PO SCH (07:39)
[2022-12-02] MEDS: ISOSORBIDE MONO EXTENDED REL 30 MG TABCR PO SCH (07:39)
[2022-12-02] MEDS: DOCUSATE SODIUM 100 MG CAP PO SCH ×2 (07:40→21:29)
[2022-12-02] MEDS: GABAPENTIN 400 MG CAP PO SCH ×3 (07:40→21:19)
[2022-12-02] MEDS: NICOTINE 21 MG/24 HR TDSY TD SCH (07:41)
[2022-12-02 07:47] LABS: BUN Creatinine Ratio 26.8 (10-20); Calcium 9.3 mg/dl (8.6-10.3); Creatinine Clr Calc Pharmacy 63.6 ml/min; Est GFR (African American) 87.6 ml/min; Est GFR (Non-African American) 75.6 ml/min; Potassium 3.8 mmol/L (3.5-5.1)
[2022-12-02 07:48] LABS: Anisocytosis Present; Polychromasia 1+
[2022-12-02] MEDS: LANTUS PER UNIT CHARGE SC SCH ×2 (08:28→21:17)
[2022-12-02] MEDS: INSULIN ASPART PER UNIT CHARGE SC SCH ×4 (08:29→21:05)
--- NOTE | 2022-12-02 16:59 | Hospitalist Progress Note ---
Date of Service December 02, 2022 Assessment & Plan (1) Encephalopathy: Plan ACTIVE PROBLEM LIST: Acute respiratory failure with hypoxia requiring intubation, extubated successfully 11/21 COPD with exacerbation, oxygen dependent Pleural effusion status post thoracentesis on 11/03/2022, left-sided, exudate Acute metabolic encephalopathy Sepsis secondary to Multifocal pneumonia-resolved Acute on chronic combined systolic and diastolic heart failure Possible Lyme infection with neurologic involvement, LP declined-complete 21 day course doxycycline. Acute renal failure-resolved hypernatremia, which may have contributed to AMS-resolved. Mixed acid-base disorder-resolved Anemia of chronic disease requiring 2 units of blood to be transfused this admission. New onset thrombocytopenia-resolved, thought secondary to sepsis Peripheral arterial disease Urinary tract infection-treated Diabetes mellitus type 2-chronic, stable. Hypertension-chronic, at goal Coronary artery disease status post CABG-chronic, stable. Severe mitral regurgitation Left bundle branch block Tobacco use-smoking cessation recommended Mood disorder-appears to be at baseline, cont home medications. UTI with Klebsiella, completed antibiotic course, nasal MRSA positive Heart labs reviewed and medications reviewed again today 12/02/2022 Clinically much better and ready to be discharged Awaiting area of aging decision Admitted 10/30-11/15, readmitted 11/16. Initial hospital stay was secondary to acute exacerbation of heart failure with acute on chronic respiratory failure. She was continued on Lasix at discharge with outpatient sleep study recommended by pulmonology. Cefdinir was continued for a UTI secondary to Klebsiella and has completed the antibiotic course. She was readmitted the following day being found down by the daughter with home oxygen not in place and somnolent. Work-up and hospital course as noted above. -back to mentating at baseline -Oxygenating at baseline today and improved clinically -restart home PO Lasix at fraction (20mg) of home dose-->increased to Lasix 40mg -Continue 21 days total course of doxycycline for possible neurologic Lyme involvement, noted RPR is nonreactive (through 12/11) -Cont Zyprexa 5 mg p.o. nightly per home regimen -she says she is on home tramadol, however, this is not prescribed per PDMP and she is not consistently on narcotics at home -Increased gabapentin to 400mg BID to TID, cont Topamax per home regimen -Hopeful that the increased gabapentin will help given the elevated risk of medication polypharmacy issues -Unclear source of acute on chronic anemia, continue PPI therapy and monitor bowel movements with CBC daily. Minimize phlebotomy -CAD/PAD-chronic, stable. Continue medical management -Pneumonia-treated and resolved -Smoking cessation recommended-nicotine patch started -Clinically much better and awaiting placement -Denies any more signs and or symptoms of infection-we will finish the course of antibiotic through 12/11 as planned Much better today and the patient was seen in front of the family members Ready to go Diet: DMII diet DVT prophylaxis: Lovenox CODE STATUS: Full code Dispo: Awaiting placement. Requiring additional review by [facility] given mental health history--this process has been requested and is being coordinated by case management. Per update on 11/30. PT/OT re-evaluation recommending rehab, possible bed at [facility] this Monday or Monday pending paperwork. Admission and Anticipated Discharge Date Admission Date: November 16, 2022 Subjective 11/27/2022 The patient was seen and examined in medical floor Has not been feeling much better today Complains of increasing weakness and tiredness Denies any acute distress, pain or shortness of breath 11/28/2022 The patient was seen and examined in medical floor He has been feeling much better today Complains pain in the left hip and left leg Also back pain which she complains to be neuropathic pain 12/01/2022 The patient was seen and examined in medical floor She has been feeling much better and awaiting placement Still has minimal pain involving the left knee 12/02/2022 The patient was seen and examined in medical floor She has been stable without any acute distress Review of Systems Review of Systems: At least ten systems reviewed and negative except as noted in the HPI. Physical Exam Physical Exam: Lying in bed comfortably Constitutional: well developed, well nourished, + ill appearing and + obese Eyes: PERRL, conjunctivae normal, anicteric sclerae ENMT: external ear and nose normal, oropharynx normal Neck: trachea midline, no thyromegaly Respiratory: no respiratory distress Auscultation: + diminished lung sounds and + crackles Cardiovascular: Rate/Rhythm: regular rate and regular rhythm; not tachycardic Heart Sounds: normal S1, normal S2 and + murmur (2/6 ESM over precordium) Extremities: + edema Gastrointestinal (Abdomen): Inspection/Auscultation: normal bowel sounds; abdomen not distended Percussion/Palpation: abdomen soft; abdomen nontender Musculoskeletal: No arthritis involving of the joint Neurologic: normal touch/pain/proprioception and moves all extremities (Has left AKA) Lymphatic: no cervical or axillary lymphadenopathy Results & Data Results & Data Vital Signs (Past 12 Hours) Vital Signs Temp Pulse Resp BP Pulse Ox O2 Del Method O2 Flow Rate 12/02/22 16:11 36.6 C 73 16 154/73 H 94 Nasal Cannula 3 12/02/22 09:06 Nasal Cannula 4 12/02/22 07:30 36.8 C 73 16 119/69 95 Nasal Cannula 4 Laboratory Results Short CBC 12/02/22 Range/Units 07:03 WBC 8.23 (4.8-10.8) K/ul Hgb 7.9 L (12.0-16.0) g/dl Hct 26.2 L (37.0-47.0) % Plt Count 245 (130-400) K/uL BMP 12/02/22 07:03 Sodium 141 Potassium 3.8 Chloride 107 Carbon Dioxide 27 BUN 22 Creatinine 0.82 Glucose 99 Calcium 9.3 Medications Administered Current Inpatient Medications Acetaminophen (Acetaminophen 325 Mg Tab) 650 mg PO Q4H PRN PRN Reason: Pain or Fever Stop: 12/25/22 01:22 Last Admin: 12/02/22 07:34 Dose: 650 mg Aspirin (Aspirin 81 Mg Ectab) 81 mg PO DAILY [facility] Stop: 12/24/22 08:59 Last Admin: 12/02/22 07:36 Dose: 81 mg Atorvastatin Calcium (Atorvastatin 40 Mg Tab) 80 mg PO DAILY [facility] Stop: 12/24/22 08:59 Last Admin: 12/02/22 07:37 Dose: 80 mg Clopidogrel Bisulfate (Clopidogrel Bisulfate 75 Mg Tab) 75 mg PO QAM [facility] Stop: 12/24/22 10:29 Last Admin: 12/02/22 07:39 Dose: 75 mg Dextrose (Dextrose 50% 50 Ml Syringe) 25 - 50 ml IV UD PRN; Protocol PRN Reason: Hypoglycemia Protocol Stop: 12/16/22 23:34 Diclofenac Sodium (Diclofenac Sod 1% Gel 100 Gm Tube) 2 gm EXT BID PRN; Protocol PRN Reason: Pain Stop: 12/27/22 22:59 Last Admin: 11/27/22 23:07 Dose: 2 gm Docusate Sodium (Docusate Sodium 100 Mg Cap) 100 mg PO BID [facility] Stop: 12/23/22 08:59 Last Admin: 12/02/22 07:40 Dose: 100 mg Doxycycline Hyclate (Doxycycline Hyclate 100 Mg Cap) 100 mg PO BID [facility] Stop: 12/08/22 22:00 Last Admin: 12/02/22 07:38 Dose: 100 mg Duloxetine HCl (Duloxetine Hcl 30 Mg Cap) 90 mg PO QAM [facility] Stop: 12/24/22 08:59 Last Admin: 12/02/22 07:39 Dose: 90 mg Enoxaparin Sodium (Enoxaparin Inj 40 Mg/0.4 Ml Syr) 40 mg SQ HS [facility] Stop: 12/20/22 20:59 Last Admin: 12/01/22 20:01 Dose: 40 mg Furosemide (Furosemide 40 Mg Tab) 40 mg PO DAILY [facility] Stop: 12/27/22 08:59 Last Admin: 12/02/22 07:36 Dose: 40 mg Gabapentin (Gabapentin 400 Mg Cap) 400 mg PO TID [facility] Stop: 12/28/22 13:59 Last Admin: 12/02/22 15:36 Dose: 400 mg Glucagon (Glucagon For Inj 1 Mg Vial) 1 mg SQ UD PRN; Protocol PRN Reason: Hypoglycemia Protocol Stop: 12/16/22 23:34 Glucose (Glucose 10 Tab/Tube) 4 - 8 tab PO UD PRN; Protocol PRN Reason: Hypoglycemia Treatment Stop: 12/16/22 23:34 Glucose (Glucose 40% Gel 15 Gm Tube) 15 - 30 gm PO UD PRN; Protocol PRN Reason: Hypoglycemia Protocol Stop: 12/16/22 23:34 Insulin Aspart (Insulin Aspart Per Unit Charge) 0 units SC ACHS [facility] Stop: 12/23/22 11:29 Last Admin: 12/02/22 12:24 Dose: 7 units Insulin Glargine (Lantus Per Unit Charge) 0 units SC BID [facility]; Protocol Stop: 12/21/22 09:14 Last Admin: 12/02/22 08:28 Dose: 10 units Ipratropium [place] (Ipratropium [place] Neb Soln 0.02% 2.5 Ml Vial) 0.5 mg INH Q6R PRN PRN Reason: Shortness Of Breath Or Wheezing Stop: 12/19/22 06:59 Isosorbide Mononitrate (Isosorbide [place] Extended Rel 30 Mg Tabcr) 30 mg PO QAM [facility] Stop: 12/25/22 08:59 Last Admin: 12/02/22 07:39 Dose: 30 mg Levalbuterol HCl (Levalbuterol 1.25 Mg/3 Ml Neb) 1.25 mg NEB Q6R PRN PRN Reason: Shortness Of Breath Or Wheezing Stop: 12/19/22 06:59 Lisinopril (L[facility]op[facility] 5 Mg Tab) [facility] [place] Stop: 12/24/22 08:59 Last Admin: 12/02/22 07:35 Dose: 5 mg Melatonin (Melatonin 3 Mg Tab) 4.5 mg PO HS PRN PRN Reason: insomnia Stop: 12/16/22 23:34 Last Admin: 12/01/22 22:57 Dose: 4.5 mg Metoprolol Succinate (Metoprolol Succ 50mg Ext Rel Tab) [facility] [place] Stop: 12/24/22 10:29 Last Admin: 12/02/22 07:37 Dose: 100 mg Metoprolol Succinate (Metoprolol Succ 50mg Ext Rel Tab) 50 mg PO HS [facility] Stop: 12/24/22 20:59 Last Admin: 12/01/22 20:15 Dose: 50 mg Miscellaneous (Carbohydrates For Hypoglycemia ) 15 - 30 gm PO UD PRN PRN Reason: Hypoglycemia Protocol Stop: 12/16/22 23:34 Miscellaneous (Remove Nicoderm Patch) 1 each N/A DAILY@0859 [facility] Stop: 12/25/22 08:58 Last Admin: 12/02/22 07:35 Dose: 1 each Multivitamins/Minerals (Cerovite Adv Formula Tab) [facility] [place] Stop: 12/23/22 08:59 Last Admin: 12/02/22 07:36 Dose: 1 tab Nicotine (Nicotine 21 Mg/24 Hr Tdsy) 21 mg TD [facility] [place] Stop: 12/24/22 13:29 Last Admin: 12/02/22 07:41 Dose: 21 mg Olanzapine (Olanzapine 5 Mg Tablet) 5 mg PO HS [facility] Stop: 12/18/22 20:59 Last Admin: 12/01/22 20:03 Dose: 5 mg Pantoprazole Sodium (Pantoprazole 40 Mg Tab) [facility] [place] Stop: 12/25/22 08:59 Last Admin: 12/02/22 07:35 Dose: 40 mg Polyethylene Glycol (Polyethylene (Miralax) 17 Gm Pack) 17 gm PO DAILY PRN PRN Reason: Constipation Stop: 12/29/22 16:56 Last Admin: 11/29/22 17:08 Dose: 17 gm Ropinirole HCl (Ropinirole Hcl 1 Mg Tablet) 1 mg PO QPM [facility] Stop: 12/24/22 20:59 Last Admin: 12/01/22 20:03 Dose: 1 mg Sennosides (Senna 8.6 Mg Tab) 8.6 mg PO QAM [facility] Stop: 12/23/22 08:59 Last Admin: 12/02/22 07:37 Dose: 8.6 mg Topiramate (Topiramate 50 Mg Tab) 50 mg PO BID [facility] Stop: 12/21/22 10:59 Last Admin: 12/02/22 07:38 Dose: 50 mg Tramadol HCl (Tramadol Hcl 50 Mg Tablet) 50 mg PO Q6H PRN PRN Reason: Severe Pain (Scale 7, 8, 9,10) Stop: 12/27/22 19:59 Last Admin: 11/30/22 18:09 Dose: 50 mg
[2022-12-02] MEDS: OLANZapine 5 MG TABLET PO SCH (21:18)
[2022-12-02] MEDS: ENOXAPARIN INJ 40 MG/0.4 ML SYR SQ SCH (21:18)
[2022-12-02] MEDS: rOPINIRole HCL 1 MG TABLET PO SCH (21:19)
[2022-12-02] MEDS: traMADol HCL 50 MG TABLET PO PRN (21:22)
[2022-12-02] MEDS: DICLOFENAC SOD 1% GEL 100 GM TUBE EXT PRN (21:23)
[2022-12-02] MEDS: MELATONIN 3 MG TAB PO PRN (22:28)
[2022-12-03] MEDS: ACETAMINOPHEN 325 MG TAB PO PRN ×2 (01:12→20:09)
[2022-12-03 07:34] LABS: Creatinine Clr Calc Pharmacy 60.6 ml/min; Est GFR (African American) 82.7 ml/min; Est GFR (Non-African American) 71.4 ml/min
[2022-12-03] MEDS: INSULIN ASPART PER UNIT CHARGE SC SCH ×4 (09:23→20:39)
[2022-12-03] MEDS: LANTUS PER UNIT CHARGE SC SCH ×2 (09:24→20:46)
[2022-12-03] MEDS: NICOTINE 21 MG/24 HR TDSY TD SCH (09:34)
[2022-12-03] MEDS: TOPIRAMATE 50 MG TAB PO SCH ×2 (09:35→20:09)
[2022-12-03] MEDS: DOXYCYCLINE HYCLATE 100 MG CAP PO SCH ×2 (09:35→20:09)
[2022-12-03] MEDS: GABAPENTIN 400 MG CAP PO SCH ×3 (09:35→20:09)
[2022-12-03] MEDS: PANTOprazole 40 MG TAB PO SCH (09:36)
[2022-12-03] MEDS: ISOSORBIDE MONO EXTENDED REL 30 MG TABCR PO SCH (09:36)
[2022-12-03] MEDS: CLOPIDOGREL BISULFATE 75 MG TAB PO SCH (09:36)
[2022-12-03] MEDS: FUROSEMIDE 40 MG TAB PO SCH (09:36)
[2022-12-03] MEDS: METOPROLOL SUCC 50MG EXT REL TAB PO SCH ×2 (09:37→20:10)
[2022-12-03] MEDS: SENNA 8.6 MG TAB PO SCH (09:37)
[2022-12-03] MEDS: DOCUSATE SODIUM 100 MG CAP PO SCH ×2 (09:37→20:10)
[2022-12-03] MEDS: ASPIRIN 81 MG ECTAB PO SCH (09:38)
[2022-12-03] MEDS: DULoxetine HCL 30 MG CAP PO SCH (09:38)
[2022-12-03] MEDS: CEROVITE ADV FORMULA TAB PO SCH (09:38)
[2022-12-03] MEDS: ATORVASTATIN 40 MG TAB PO SCH (09:38)
[2022-12-03] MEDS: lisinopril 5 MG TAB PO SCH (10:50)
--- NOTE | 2022-12-03 16:12 | Hospitalist Progress Note ---
Date of Service December 03, 2022 Assessment & Plan (1) Encephalopathy: Plan: Resolved 21-day course of doxycycline-will be finished on of this month Plan ACTIVE PROBLEM LIST: Acute respiratory failure with hypoxia requiring intubation, extubated successfully 11/21 COPD with exacerbation, oxygen dependent Pleural effusion status post thoracentesis on 11/03/2022, left-sided, exudate Acute metabolic encephalopathy Sepsis secondary to Multifocal pneumonia-resolved Acute on chronic combined systolic and diastolic heart failure Possible Lyme infection with neurologic involvement, LP declined-complete 21 day course doxycycline. Acute renal failure-resolved hypernatremia, which may have contributed to AMS-resolved. Mixed acid-base disorder-resolved Anemia of chronic disease requiring 2 units of blood to be transfused this admission. New onset thrombocytopenia-resolved, thought secondary to sepsis Peripheral arterial disease Urinary tract infection-treated Diabetes mellitus type 2-chronic, stable. Hypertension-chronic, at goal Coronary artery disease status post CABG-chronic, stable. Severe mitral regurgitation Left bundle branch block Tobacco use-smoking cessation recommended Mood disorder-appears to be at baseline, cont home medications. UTI with Klebsiella, completed antibiotic course, nasal MRSA positive Heart labs reviewed and medications reviewed again today 12/02/2022 Clinically much better and ready to be discharged Awaiting area of aging decision No acute symptoms and remains hemodynamically stable without any distress at rest We will check CBC and PRP tomorrow Admitted 10/30-11/15, readmitted 11/16. Initial hospital stay was secondary to acute exacerbation of heart failure with acute on chronic respiratory failure. She was continued on Lasix at discharge with outpatient sleep study recommended by pulmonology. Cefdinir was continued for a UTI secondary to Klebsiella and has completed the antibiotic course. She was readmitted the following day being found down by the daughter with home oxygen not in place and somnolent. Work-up and hospital course as noted above. -back to mentating at baseline -Oxygenating at baseline today and improved clinically -restart home PO Lasix at fraction (20mg) of home dose-->increased to Lasix 40mg -Continue 21 days total course of doxycycline for possible neurologic Lyme involvement, noted RPR is nonreactive (through 12/11) -Cont Zyprexa 5 mg p.o. nightly per home regimen -she says she is on home tramadol, however, this is not prescribed per PDMP and she is not consistently on narcotics at home -Increased gabapentin to 400mg BID to TID, cont Topamax per home regimen -Hopeful that the increased gabapentin will help given the elevated risk of medication polypharmacy issues -Unclear source of acute on chronic anemia, continue PPI therapy and monitor bowel movements with CBC daily. Minimize phlebotomy -CAD/PAD-chronic, stable. Continue medical management -Pneumonia-treated and resolved -Smoking cessation recommended-nicotine patch started -Clinically much better and awaiting placement -Denies any more signs and or symptoms of infection-we will finish the course of antibiotic through 12/11 as planned Much better today and the patient was seen in front of the family members Ready to be discharged Diet: DMII diet DVT prophylaxis: Lovenox CODE STATUS: Full code Dispo: Awaiting placement. Requiring additional review by [facility] given mental [facility]--this process has been requested and is being coordinated by case management. Per update on 11/30. PT/OT re-evaluation recommending rehab, possible bed at [facility] this Monday or Monday pending paperwork. Admission and Anticipated Discharge Date Admission Date: November 16, 2022 Subjective 11/27/2022 The patient was seen and examined in medical floor Has not been feeling much better today Complains of increasing weakness and tiredness Denies any acute distress, pain or shortness of breath 11/28/2022 The patient was seen and examined in medical floor He has been feeling much better today Complains pain in the left hip and left leg Also back pain which she complains to be neuropathic pain 12/01/2022 The patient was seen and examined in medical floor She has been feeling much better and awaiting placement Still has minimal pain involving the left knee 12/02/2022 The patient was seen and examined in medical floor She has been stable without any acute distress 12/03/2022 The patient was seen and examined in the medical floor She has been stable without any acute distress Waiting to be placed Review of Systems Review of Systems: At least ten systems reviewed and negative except as noted in the HPI. Physical Exam Physical Exam: Lying in bed comfortably Constitutional: well developed, well nourished, + ill appearing and + obese Eyes: PERRL, conjunctivae normal, anicteric sclerae ENMT: external ear and nose normal, oropharynx normal Neck: trachea midline, no thyromegaly Respiratory: no respiratory distress Auscultation: + diminished lung sounds and + crackles Cardiovascular: Rate/Rhythm: regular rate and regular rhythm; not tachycardic Heart Sounds: normal S1, normal S2 and + murmur (2/6 ESM over precordium) Extremities: + edema Gastrointestinal (Abdomen): Inspection/Auscultation: normal bowel sounds; abdomen not distended Percussion/Palpation: abdomen soft; abdomen nontender Neurologic: normal touch/pain/proprioception and moves all extremities (Has left AKA) Lymphatic: no cervical or axillary lymphadenopathy Results & Data Results & Data Vital Signs (Past 12 Hours) Vital Signs Temp Pulse Resp BP Pulse Ox O2 Del Method O2 Flow Rate 12/03/22 14:41 36.7 C 74 16 115/68 94 Nasal Cannula 3 12/03/22 07:43 36.7 C 75 16 140/72 97 Nasal Cannula 3 Laboratory Results BMP 12/03/22 05:39 Creatinine 0.86 Medications Administered Current Inpatient Medications Acetaminophen (Acetaminophen 325 Mg Tab) 650 mg PO Q4H PRN PRN Reason: Pain or Fever Stop: 12/25/22 01:22 Last Admin: 12/03/22 01:12 Dose: 650 mg Aspirin (Aspirin 81 Mg Ectab) 81 mg PO DAILY [facility]AN[facility]A Stop: 12/24/22 08:59 Last Admin: 12/03/22 09:38 Dose: 81 mg Atorvastatin Calcium (Atorvastatin 40 Mg Tab) 80 mg PO DAILY [facility]ANTHA Stop: 12/24/22 08:59 Last Admin: 12/03/22 09:38 Dose: 80 mg Clopidogrel Bisulfate (Clopidogrel Bisulfate 75 Mg Tab) 75 mg PO QAM [facility] Stop: 12/24/22 10:29 Last Admin: 12/03/22 09:36 Dose: 75 mg Dextrose (Dextrose 50% 50 Ml Syringe) 25 - 50 ml IV UD PRN; Protocol PRN Reason: Hypoglycemia Protocol Stop: 12/16/22 23:34 Diclofenac Sodium (Diclofenac Sod 1% Gel 100 Gm Tube) 2 gm EXT BID PRN; Protocol PRN Reason: Pain Stop: 12/27/22 22:59 Last Admin: 12/02/22 21:23 Dose: 2 gm Docusate Sodium (Docusate Sodium 100 Mg Cap) 100 mg PO BID [facility] Stop: 12/23/22 08:59 Last Admin: 12/03/22 09:37 Dose: Not Given Doxycycline Hyclate (Doxycycline Hyclate 100 Mg Cap) 100 mg PO BID [facility] Stop: 12/08/22 22:00 Last Admin: 12/03/22 09:35 Dose: 100 mg Duloxetine HCl (Duloxetine Hcl 30 Mg Cap) 90 mg PO QAM [facility] Stop: 12/24/22 08:59 Last Admin: 12/03/22 09:38 Dose: 90 mg Enoxaparin Sodium (Enoxaparin Inj 40 Mg/0.4 Ml Syr) 40 mg SQ HS [facility] Stop: 12/20/22 20:59 Last Admin: 12/02/22 21:18 Dose: 40 mg Furosemide (Furosemide 40 Mg Tab) 40 mg PO DAILY [facility] Stop: 12/27/22 08:59 Last Admin: 12/03/22 09:36 Dose: 40 mg Gabapentin (Gabapentin 400 Mg Cap) 400 mg PO TID [facility] Stop: 12/28/22 13:59 Last Admin: 12/03/22 15:04 Dose: 400 mg Glucagon (Glucagon For Inj 1 Mg Vial) 1 mg SQ UD PRN; Protocol PRN Reason: Hypoglycemia Protocol Stop: 12/16/22 23:34 Glucose (Glucose 10 Tab/Tube) 4 - 8 tab PO UD PRN; Protocol PRN Reason: Hypoglycemia Treatment Stop: 12/16/22 23:34 Glucose (Glucose 40% Gel 15 Gm Tube) 15 - 30 gm PO UD PRN; Protocol PRN Reason: Hypoglycemia Protocol Stop: 12/16/22 23:34 Insulin Aspart (Insulin Aspart Per Unit Charge) 0 units SC ACHS [facility] Stop: 12/23/22 11:29 Last Admin: 12/03/22 13:11 Dose: 10 units Insulin Glargine (Lantus Per Unit Charge) 0 units SC BID [facility]; Protocol Stop: 12/21/22 09:14 Last Admin: 12/03/22 09:24 Dose: 10 units Ipratropium [place] (Ipratropium [place] Neb Soln 0.02% 2.5 Ml Vial) 0.5 mg INH Q6R PRN PRN Reason: Shortness Of Breath Or Wheezing Stop: 12/19/22 06:59 Isosorbide Mononitrate (Isosorbide [place] Extended Rel 30 Mg Tabcr) 30 mg PO QAM [facility] Stop: 12/25/22 08:59 Last Admin: 12/03/22 09:36 Dose: 30 mg Levalbuterol HCl (Levalbuterol 1.25 Mg/3 Ml Neb) 1.25 mg NEB Q6R PRN PRN Reason: Shortness Of Breath Or Wheezing Stop: 12/19/22 06:59 Lisinopril (Lisinopril 5 Mg Tab) 5 mg PO QAM [facility] Stop: 12/24/22 08:59 Last Admin: 12/03/22 10:50 Dose: 5 mg Melatonin (Melatonin 3 Mg Tab) 4.5 mg PO HS PRN PRN Reason: insomnia Stop: 12/16/22 23:34 Last Admin: 12/02/22 22:28 Dose: 4.5 mg Metoprolol Succinate (Metoprolol Succ 50mg Ext Rel Tab) [facility] Stop: 12/24/22 10:29 Last Admin: 12/03/22 09:37 Dose: 100 mg Metoprolol Succinate (Metoprolol Succ 50mg Ext Rel Tab) 50 mg PO HS [facility] Stop: 12/24/22 20:59 Last Admin: 12/02/22 21:19 Dose: 50 mg Miscellaneous (Carbohydrates For Hypoglycemia ) 15 - 30 gm PO UD PRN PRN Reason: Hypoglycemia Protocol Stop: 12/16/22 23:34 Miscellaneous (Remove Nicoderm Patch) 1 each N/A DAILY@0859 [facility] Stop: 12/25/22 08:58 Last Admin: 12/03/22 09:39 Dose: 1 each Multivitamins/Minerals (Cerovite Adv Formula Tab) [facility] Stop: 12/23/22 08:59 Last Admin: 12/03/22 09:38 Dose: 1 tab Nicotine (Nicotine 21 Mg/24 Hr Tdsy) 21 mg TD [facility] Stop: 12/24/22 13:29 Last Admin: 12/03/22 09:34 Dose: 21 mg Olanzapine (Olanzapine 5 Mg Tablet) 5 mg PO HS [facility] Stop: 12/18/22 20:59 Last Admin: 12/02/22 21:18 Dose: 5 mg Pantoprazole Sodium (Pantoprazole 40 Mg Tab) 40 mg PO QAM [facility] Stop: 12/25/22 08:59 Last Admin: 12/03/22 09:36 Dose: 40 mg Polyethylene Glycol (Polyethylene (Miralax) 17 Gm Pack) 17 gm PO DAILY PRN PRN Reason: Constipation Stop: 12/29/22 16:56 Last Admin: 11/29/22 17:08 Dose: 17 gm Ropinirole HCl (Ropinirole Hcl 1 Mg Tablet) 1 mg PO QPM [facility] Stop: 12/24/22 20:59 Last Admin: 12/02/22 21:19 Dose: 1 mg Sennosides (Senna 8.6 Mg Tab) 8.6 mg PO QAM [facility] Stop: 12/23/22 08:59 Last Admin: 12/03/22 09:37 Dose: Not Given Topiramate (Topiramate 50 Mg Tab) 50 mg PO BID [facility] Stop: 12/21/22 10:59 Last Admin: 12/03/22 09:35 Dose: 50 mg Tramadol HCl (Tramadol Hcl 50 Mg Tablet) 50 mg PO Q6H PRN PRN Reason: Severe Pain (Scale 7, 8, 9,10) Stop: 12/27/22 19:59 Last Admin: 12/02/22 21:22 Dose: 50 mg
[2022-12-03] MEDS: OLANZapine 5 MG TABLET PO SCH (20:10)
[2022-12-03] MEDS: rOPINIRole HCL 1 MG TABLET PO SCH (20:10)
[2022-12-03] MEDS: ENOXAPARIN INJ 40 MG/0.4 ML SYR SQ SCH (20:10)
[2022-12-03] MEDS: DICLOFENAC SOD 1% GEL 100 GM TUBE EXT PRN (20:11)
[2022-12-03] MEDS: MELATONIN 3 MG TAB PO PRN (22:22)
[2022-12-04 07:24] LABS: Basophils # (auto) 0.02 K/uL (0.00-0.20); Basophils % (auto) 0.3 %; Eosinophils # (auto) 0.04 K/uL (0.00-0.50); Eosinophils % (auto) 0.6 %; Hematocrit (blood only) 24.7 % (37.0-47.0); Hemoglobin 7.4 g/dl (12.0-16.0); Immature Granulocytes # (auto) 0.09 K/uL (0.01-0.20); Immature Granulocytes % (auto) 1.4 %; Lymphocytes # (auto) 1.75 K/uL (1.20-3.40); Lymphocytes % (auto) 28.1 %; Mean Corpuscular Hemoglobin 30.3 pg (25.0-34.0); Mean Corpuscular Volume 101.2 fL (80.0-100.0); Mean Platelet Volume 12.2 fL (9.4-12.4); Monocytes % (auto) 28.9 %; Neutrophils # (auto) 2.52 K/uL (1.40-6.50); Neutrophils % (auto) 40.7 %; Platelet Count 218 K/uL (130-400); RDW Coefficient of Variation 20.2 % (11.5-14.5); RDW Standard Deviation 75.3 fL (36.4-46.3); Red Blood Count 2.44 M/uL (4.20-5.40); White Blood Count 6.22 K/ul (4.8-10.8)
[2022-12-04 07:44] LABS: BUN Creatinine Ratio 42.9 (10-20); Calcium 8.9 mg/dl (8.6-10.3); Creatinine Clr Calc Pharmacy 74.5 ml/min; Est GFR (African American) 106.1 ml/min; Est GFR (Non-African American) 91.6 ml/min; Potassium 4.1 mmol/L (3.5-5.1)
[2022-12-04 07:49] LABS: Anisocytosis Present; Polychromasia 2+
[2022-12-04] MEDS: ISOSORBIDE MONO EXTENDED REL 30 MG TABCR PO SCH (09:04)
[2022-12-04] MEDS: SENNA 8.6 MG TAB PO SCH (09:04)
[2022-12-04] MEDS: DOXYCYCLINE HYCLATE 100 MG CAP PO SCH ×2 (09:04→20:10)
[2022-12-04] MEDS: CLOPIDOGREL BISULFATE 75 MG TAB PO SCH (09:05)
[2022-12-04] MEDS: METOPROLOL SUCC 50MG EXT REL TAB PO SCH ×2 (09:05→20:10)
[2022-12-04] MEDS: DULoxetine HCL 30 MG CAP PO SCH (09:06)
[2022-12-04] MEDS: lisinopril 5 MG TAB PO SCH (09:06)
[2022-12-04] MEDS: ATORVASTATIN 40 MG TAB PO SCH (09:06)
[2022-12-04] MEDS: GABAPENTIN 400 MG CAP PO SCH ×3 (09:06→20:10)
[2022-12-04] MEDS: PANTOprazole 40 MG TAB PO SCH (09:07)
[2022-12-04] MEDS: INSULIN ASPART PER UNIT CHARGE SC SCH ×4 (09:07→20:20)
[2022-12-04] MEDS: FUROSEMIDE 40 MG TAB PO SCH (09:07)
[2022-12-04] MEDS: ASPIRIN 81 MG ECTAB PO SCH (09:07)
[2022-12-04] MEDS: LANTUS PER UNIT CHARGE SC SCH ×2 (09:08→20:20)
[2022-12-04] MEDS: NICOTINE 21 MG/24 HR TDSY TD SCH (09:09)
[2022-12-04] MEDS: TOPIRAMATE 50 MG TAB PO SCH ×2 (09:09→20:10)
[2022-12-04] MEDS: CEROVITE ADV FORMULA TAB PO SCH (09:10)
[2022-12-04] MEDS: DOCUSATE SODIUM 100 MG CAP PO SCH ×2 (09:15→20:15)
[2022-12-04] MEDS: DICLOFENAC SOD 1% GEL 100 GM TUBE EXT PRN ×2 (14:08→20:09)
--- NOTE | 2022-12-04 17:01 | Hospitalist Progress Note ---
Date of Service December 04, 2022 Assessment & Plan (1) Encephalopathy: Plan: Resolved 21-day course of doxycycline-will be finished on of this month Plan ACTIVE PROBLEM LIST: Acute respiratory failure with hypoxia requiring intubation, extubated successfully 11/21 COPD with exacerbation, oxygen dependent Pleural effusion status post thoracentesis on 11/03/2022, left-sided, exudate Acute metabolic encephalopathy Sepsis secondary to Multifocal pneumonia-resolved Acute on chronic combined systolic and diastolic heart failure Possible Lyme infection with neurologic involvement, LP declined-complete 21 day course doxycycline. Acute renal failure-resolved hypernatremia, which may have contributed to AMS-resolved. Mixed acid-base disorder-resolved Anemia of chronic disease requiring 2 units of blood to be transfused this admission. New onset thrombocytopenia-resolved, thought secondary to sepsis Peripheral arterial disease Urinary tract infection-treated Diabetes mellitus type 2-chronic, stable. Hypertension-chronic, at goal Coronary artery disease status post CABG-chronic, stable. Severe mitral regurgitation Left bundle branch block Tobacco use-smoking cessation recommended Mood disorder-appears to be at baseline, cont home medications. UTI with Klebsiella, completed antibiotic course, nasal MRSA positive Heart labs reviewed and medications reviewed again today 12/02/2022 Clinically much better and ready to be discharged Awaiting area of aging decision No acute symptoms and remains hemodynamically stable without any distress at rest We will check CBC and PRP tomorrow-hemoglobin 7.4 and PRP normal Remains medically stable and has been feeling much better Admitted 10/30-11/15, readmitted 11/16. Initial hospital stay was secondary to acute exacerbation of heart failure with acute on chronic respiratory failure. She was continued on Lasix at discharge with outpatient sleep study recommended by pulmonology. Cefdinir was continued for a UTI secondary to Klebsiella and has completed the antibiotic course. She was readmitted the following day being found down by the daughter with home oxygen not in place and somnolent. Work-up and hospital course as noted above. -back to mentating at baseline -Oxygenating at baseline today and improved clinically -restart home PO Lasix at fraction (20mg) of home dose-->increased to Lasix 40mg -Continue 21 days total course of doxycycline for possible neurologic Lyme involvement, noted RPR is nonreactive (through 12/11) -Cont Zyprexa 5 mg p.o. nightly per home regimen -she says she is on home tramadol, however, this is not prescribed per PDMP and she is not consistently on narcotics at home -Increased gabapentin to 400mg BID to TID, cont Topamax per home regimen -Hopeful that the increased gabapentin will help given the elevated risk of medication polypharmacy issues -Unclear source of acute on chronic anemia, continue PPI therapy and monitor bowel movements with CBC daily. Minimize phlebotomy -CAD/PAD-chronic, stable. Continue medical management -Pneumonia-treated and resolved -Smoking cessation recommended-nicotine patch started -Clinically much better and awaiting placement -Denies any more signs and or symptoms of infection-we will finish the course of antibiotic through 12/11 as planned Much better today and the patient was seen in front of the family members Ready to be discharged Diet: DMII diet DVT prophylaxis: Lovenox CODE STATUS: Full code Dispo: Awaiting placement. Requiring additional review by [facility]OA given mental health history--this process has been requested and is being coordinated by case management. Per update on 11/30. PT/OT re-evaluation recommending rehab, possible bed at [facility] this Monday or Monday pending paperwork. Admission and Anticipated Discharge Date Admission Date: November 16, 2022 Subjective 11/27/2022 The patient was seen and examined in medical floor Has not been feeling much better today Complains of increasing weakness and tiredness Denies any acute distress, pain or shortness of breath 11/28/2022 The patient was seen and examined in medical floor He has been feeling much better today Complains pain in the left hip and left leg Also back pain which she complains to be neuropathic pain 12/01/2022 The patient was seen and examined in medical floor She has been feeling much better and awaiting placement Still has minimal pain involving the left knee 12/02/2022 The patient was seen and examined in medical floor She has been stable without any acute distress 12/03/2022 The patient was seen and examined in the medical floor She has been stable without any acute distress Waiting to be placed 12/04/2022 The patient was seen and examined in medical floor She has been stable and waiting for placement Review of Systems Review of Systems: At least ten systems reviewed and negative except as noted in the HPI. Physical Exam Physical Exam: Lying in bed comfortably Constitutional: well developed, well nourished, + ill appearing and + obese Eyes: PERRL, conjunctivae normal, anicteric sclerae ENMT: external ear and nose normal, oropharynx normal Neck: trachea midline, no thyromegaly Respiratory: no respiratory distress Auscultation: + diminished lung sounds and + crackles Cardiovascular: Rate/Rhythm: regular rate and regular rhythm; not tachycardic Heart Sounds: normal S1, normal S2 and + murmur (2/6 ESM over precordium) Extremities: + edema Gastrointestinal (Abdomen): Inspection/Auscultation: normal bowel sounds; abdomen not distended Percussion/Palpation: abdomen soft; abdomen nontender Musculoskeletal: Left AKA. No acute arthritis in any joint Neurologic: normal touch/pain/proprioception and moves all extremities (Has left AKA) Lymphatic: no cervical or axillary lymphadenopathy Results & Data Results & Data Vital Signs (Past 12 Hours) Vital Signs Temp Pulse Resp BP BP Pulse Ox O2 Del Method 12/04/22 14:12 37.0 C 82 16 134/71 97 Room Air 12/04/22 08:40 Nasal Cannula 12/04/22 07:40 36.7 C 77 16 99/77 L 92 Nasal Cannula O2 Flow Rate 12/04/22 14:12 12/04/22 08:40 4 12/04/22 07:40 4 Laboratory Results Short CBC 12/04/22 Range/Units 06:59 WBC 6.22 (4.8-10.8) K/ul Hgb 7.4 L (12.0-16.0) g/dl Hct 24.7 L (37.0-47.0) % Plt Count 218 (130-400) K/uL BMP 12/04/22 06:59 Sodium 140 Potassium 4.1 Chloride 110 H Carbon Dioxide 26 BUN 30 H Creatinine 0.70 Glucose 169 H Calcium 8.9 Medications Administered Current Inpatient Medications Acetaminophen (Acetaminophen 325 Mg Tab) 650 mg PO Q4H PRN PRN Reason: Pain or Fever Stop: 12/25/22 01:22 Last Admin: 12/03/22 20:09 Dose: 650 mg Aspirin (Aspirin 81 Mg Ectab) 81 mg PO DAILY [facility] Stop: 12/24/22 08:59 Last Admin: 12/04/22 09:07 Dose: 81 mg Atorvastatin Calcium (Atorvastatin 40 Mg Tab) 80 mg PO DAILY [facility] Stop: 12/24/22 08:59 Last Admin: 12/04/22 09:06 Dose: 80 mg Clopidogrel Bisulfate (Clopidogrel Bisulfate 75 Mg Tab) 75 mg PO QAM [facility] Stop: 12/24/22 10:29 Last Admin: 12/04/22 09:05 Dose: 75 mg Dextrose (Dextrose 50% 50 Ml Syringe) 25 - 50 ml IV UD PRN; Protocol PRN Reason: Hypoglycemia Protocol Stop: 12/16/22 23:34 Diclofenac Sodium (Diclofenac Sod 1% Gel 100 Gm Tube) 2 gm EXT BID PRN; Protocol PRN Reason: Pain Stop: 12/27/22 22:59 Last Admin: 12/04/22 14:08 Dose: 2 gm Docusate Sodium (Docusate Sodium 100 Mg Cap) 100 mg PO BID [facility] Stop: 12/23/22 08:59 Last Admin: 12/04/22 09:15 Dose: 100 mg Doxycycline Hyclate (Doxycycline Hyclate 100 Mg Cap) 100 mg PO BID [facility] Stop: 12/08/22 22:00 Last Admin: 12/04/22 09:04 Dose: 100 mg Duloxetine HCl (Duloxetine Hcl 30 Mg Cap) 90 mg PO QAM [facility] Stop: 12/24/22 08:59 Last Admin: 12/04/22 09:06 Dose: 90 mg Enoxaparin Sodium (Enoxaparin Inj 40 Mg/0.4 Ml Syr) 40 mg SQ HS [facility] Stop: 12/20/22 20:59 Last Admin: 12/03/22 20:10 Dose: 40 mg Furosemide (Furosemide 40 Mg Tab) 40 mg PO DAILY [facility] Stop: 12/27/22 08:59 Last Admin: 12/04/22 09:07 Dose: Not Given Gabapentin (Gabapentin 400 Mg Cap) 400 mg PO TID [facility] Stop: 12/28/22 13:59 Last Admin: 12/04/22 13:12 Dose: 400 mg Glucagon (Glucagon For Inj 1 Mg Vial) 1 mg SQ UD PRN; Protocol PRN Reason: Hypoglycemia Protocol Stop: 12/16/22 23:34 Glucose (Glucose 10 Tab/Tube) 4 - 8 tab PO UD PRN; Protocol PRN Reason: Hypoglycemia Treatment Stop: 12/16/22 23:34 Glucose (Glucose 40% Gel 15 Gm Tube) 15 - 30 gm PO UD PRN; Protocol PRN Reason: Hypoglycemia Protocol Stop: 12/16/22 23:34 Insulin Aspart (Insulin Aspart Per Unit Charge) 0 units SC ACHS [facility] Stop: 12/23/22 11:29 Last Admin: 12/04/22 13:11 Dose: 9 units Insulin Glargine (Lantus Per Unit Charge) 0 units SC BID [facility]; Protocol Stop: 12/21/22 09:14 Last Admin: 12/04/22 09:08 Dose: 10 units Ipratropium [place] (Ipratropium [place] Neb Soln 0.02% 2.5 Ml Vial) 0.5 mg INH Q6R PRN PRN Reason: Shortness Of Breath Or Wheezing Stop: 12/19/22 06:59 Isosorbide Mononitrate (Isosorbide [place] Extended Rel 30 Mg Tabcr) [address] [facility] Stop: 12/25/22 08:59 Last Admin: 12/04/22 09:04 Dose: 30 mg Levalbuterol HCl (Levalbuterol 1.25 Mg/3 Ml Neb) 1.25 mg NEB Q6R PRN PRN Reason: Shortness Of Breath Or Wheezing Stop: 12/19/22 06:59 Lisinopril (Lisinopril 5 Mg Tab) [address] [facility] Stop: 12/24/22 08:59 Last Admin: 12/04/22 09:06 Dose: 5 mg Melatonin (Melatonin 3 Mg Tab) 4.5 mg PO HS PRN PRN Reason: insomnia Stop: 12/16/22 23:34 Last Admin: 12/03/22 22:22 Dose: 4.5 mg Metoprolol Succinate (Metoprolol Succ 50mg Ext Rel Tab) [address] [facility] Stop: 12/24/22 10:29 Last Admin: 12/04/22 09:05 Dose: Not Given Metoprolol Succinate (Metoprolol Succ 50mg Ext Rel Tab) 50 mg PO HS [facility] Stop: 12/24/22 20:59 Last Admin: 12/03/22 20:10 Dose: 50 mg Miscellaneous (Carbohydrates For Hypoglycemia ) 15 - 30 gm PO UD PRN PRN Reason: Hypoglycemia Protocol Stop: 12/16/22 23:34 Miscellaneous (Remove Nicoderm Patch) 1 each N/A DAILY@0859 [facility] Stop: 12/25/22 08:58 Last Admin: 12/04/22 09:10 Dose: 1 each Multivitamins/Minerals (Cerovite Adv Formula Tab) 1 tab PO QAM [facility] Stop: 12/23/22 08:59 Last Admin: 12/04/22 09:10 Dose: 1 tab Nicotine (Nicotine 21 Mg/24 Hr Tdsy) 21 mg TD QAM [facility] Stop: 12/24/22 13:29 Last Admin: 12/04/22 09:09 Dose: 21 mg Olanzapine (Olanzapine 5 Mg Tablet) 5 mg PO HS [facility] Stop: 12/18/22 20:59 Last Admin: 12/03/22 20:10 Dose: 5 mg Pantoprazole Sodium (Pantoprazole 40 Mg Tab) 40 mg PO QAM [facility] Stop: 12/25/22 08:59 Last Admin: 12/04/22 09:07 Dose: 40 mg Polyethylene Glycol (Polyethylene (Miralax) 17 Gm Pack) 17 gm PO DAILY PRN PRN Reason: Constipation Stop: 12/29/22 16:56 Last Admin: 11/29/22 17:08 Dose: 17 gm Ropinirole HCl (Ropinirole Hcl 1 Mg Tablet) 1 mg PO QPM [facility] Stop: 12/24/22 20:59 Last Admin: 12/03/22 20:10 Dose: 1 mg Sennosides (Senna 8.6 Mg Tab) 8.6 mg PO QAM [facility] Stop: 12/23/22 08:59 Last Admin: 12/04/22 09:04 Dose: 8.6 mg Topiramate (Topiramate 50 Mg Tab) 50 mg PO BID [facility] Stop: 12/21/22 10:59 Last Admin: 12/04/22 09:09 Dose: 50 mg Tramadol HCl (Tramadol Hcl 50 Mg Tablet) 50 mg PO Q6H PRN PRN Reason: Severe Pain (Scale 7, 8, 9,10) Stop: 12/27/22 19:59 Last Admin: 12/02/22 21:22 Dose: 50 mg
[2022-12-04] MEDS: ENOXAPARIN INJ 40 MG/0.4 ML SYR SQ SCH (20:09)
[2022-12-04] MEDS: OLANZapine 5 MG TABLET PO SCH (20:10)
[2022-12-04] MEDS: rOPINIRole HCL 1 MG TABLET PO SCH (20:10)
[2022-12-04] MEDS: traMADol HCL 50 MG TABLET PO PRN (20:14)
[2022-12-04] MEDS: ACETAMINOPHEN 325 MG TAB PO PRN (20:15)
[2022-12-04] MEDS: MELATONIN 3 MG TAB PO PRN (20:20)
[2022-12-04] MEDS ORDERED: MELATONIN 3 MG TAB PO STA (23:13)
[2022-12-05] MEDS ORDERED: hydrOXYzine HCl 10 MG TAB PO STA (00:32)
[2022-12-05] MEDS: GABAPENTIN 400 MG CAP PO SCH ×3 (08:18→20:20)
[2022-12-05] MEDS: TOPIRAMATE 50 MG TAB PO SCH ×2 (08:18→20:19)
[2022-12-05] MEDS: DOXYCYCLINE HYCLATE 100 MG CAP PO SCH ×2 (08:18→20:19)
[2022-12-05] MEDS: FUROSEMIDE 40 MG TAB PO SCH (08:19)
[2022-12-05] MEDS: METOPROLOL SUCC 50MG EXT REL TAB PO SCH ×2 (08:20→20:20)
[2022-12-05] MEDS: ISOSORBIDE MONO EXTENDED REL 30 MG TABCR PO SCH (08:21)
[2022-12-05] MEDS: ATORVASTATIN 40 MG TAB PO SCH (08:21)
[2022-12-05] MEDS: CLOPIDOGREL BISULFATE 75 MG TAB PO SCH (08:22)
[2022-12-05] MEDS: PANTOprazole 40 MG TAB PO SCH (08:22)
[2022-12-05] MEDS: ASPIRIN 81 MG ECTAB PO SCH (08:22)
[2022-12-05] MEDS: lisinopril 5 MG TAB PO SCH (08:23)
[2022-12-05] MEDS: DULoxetine HCL 30 MG CAP PO SCH (08:23)
[2022-12-05] MEDS: CEROVITE ADV FORMULA TAB PO SCH (08:24)
[2022-12-05] MEDS: SENNA 8.6 MG TAB PO SCH (08:24)
[2022-12-05] MEDS: NICOTINE 21 MG/24 HR TDSY TD SCH (08:25)
[2022-12-05] MEDS: INSULIN ASPART PER UNIT CHARGE SC SCH ×4 (08:43→20:20)
[2022-12-05] MEDS: LANTUS PER UNIT CHARGE SC SCH ×2 (08:43→20:20)
[2022-12-05] MEDS: DOCUSATE SODIUM 100 MG CAP PO SCH ×2 (08:43→20:19)
[2022-12-05] MEDS ORDERED: FUROSEMIDE 40 MG/4 ML VIAL IV ONE (12:11)
[2022-12-05] MEDS: ACETAMINOPHEN 325 MG TAB PO PRN ×2 (13:19→20:19)
--- NOTE | 2022-12-05 16:16 | Hospitalist Progress Note ---
Date of Service December 05, 2022 Assessment & Plan (1) Encephalopathy: Plan: Resolved 21-day course of doxycycline-will be finished on of this month Plan ACTIVE PROBLEM LIST: Acute respiratory failure with hypoxia requiring intubation, extubated successfully 11/21 COPD with exacerbation, oxygen dependent Pleural effusion status post thoracentesis on 11/03/2022, left-sided, exudate Acute metabolic encephalopathy Sepsis secondary to Multifocal pneumonia-resolved Acute on chronic combined systolic and diastolic heart failure Possible Lyme infection with neurologic involvement, LP declined-complete 21 day course doxycycline. Acute renal failure-resolved hypernatremia, which may have contributed to AMS-resolved. Mixed acid-base disorder-resolved Anemia of chronic disease requiring 2 units of blood to be transfused this admission. New onset thrombocytopenia-resolved, thought secondary to sepsis Peripheral arterial disease Urinary tract infection-treated Diabetes mellitus type 2-chronic, stable. Hypertension-chronic, at goal Coronary artery disease status post CABG-chronic, stable. Severe mitral regurgitation Left bundle branch block Tobacco use-smoking cessation recommended Mood disorder-appears to be at baseline, cont home medications. UTI with Klebsiella, completed antibiotic course, nasal MRSA positive Heart labs reviewed and medications reviewed again today 12/02/2022 Clinically much better and ready to be discharged Awaiting area of aging decision No acute symptoms and remains hemodynamically stable without any distress at rest We will check CBC and PRP tomorrow-hemoglobin 7.4 and PRP normal Remains medically stable and has been feeling much better Clinically much better and seems to back to her baseline She has been accepted to [facility] and likely to be transferred tomorrow Admitted 10/30-11/15, readmitted 11/16. Initial hospital stay was secondary to acute exacerbation of heart failure with acute on chronic respiratory failure. She was continued on Lasix at discharge with outpatient sleep study recommended by pulmonology. Cefdinir was continued for a UTI secondary to Klebsiella and has completed the antibiotic course. She was readmitted the following day being found down by the daughter with home oxygen not in place and somnolent. Work-up and hospital course as noted above. -back to mentating at baseline -Oxygenating at baseline today and improved clinically -restart home PO Lasix at fraction (20mg) of home dose-->increased to Lasix 40mg -Continue 21 days total course of doxycycline for possible neurologic Lyme involvement, noted RPR is nonreactive (through 12/11) -Cont Zyprexa 5 mg p.o. nightly per home regimen -she says she is on home tramadol, however, this is not prescribed per PDMP and she is not consistently on narcotics at home -Increased gabapentin to 400mg BID to TID, cont Topamax per home regimen -Hopeful that the increased gabapentin will help given the elevated risk of medication polypharmacy issues -Unclear source of acute on chronic anemia, continue PPI therapy and monitor bowel movements with CBC daily. Minimize phlebotomy -CAD/PAD-chronic, stable. Continue medical management -Pneumonia-treated and resolved -Smoking cessation recommended-nicotine patch started -Clinically much better and awaiting placement -Denies any more signs and or symptoms of infection-we will finish the course of antibiotic through 12/11 as planned Much better today and the patient was seen in front of the family members She will get another dose of Lasix today and will have blood counts tomorrow before discharge Diet: DMII diet DVT prophylaxis: Lovenox CODE STATUS: Full code Dispo: Awaiting placement. Requiring additional review by [facility] given mental health history--this process has been requested and is being coordinated by case management. Per update on 11/30. PT/OT re-evaluation recommending rehab, possible bed at [facility] this Monday or Monday pending paperwork. Admission and Anticipated Discharge Date Admission Date: November 16, 2022 Subjective 11/27/2022 The patient was seen and examined in medical floor Has not been feeling much better today Complains of increasing weakness and tiredness Denies any acute distress, pain or shortness of breath 11/28/2022 The patient was seen and examined in medical floor He has been feeling much better today Complains pain in the left hip and left leg Also back pain which she complains to be neuropathic pain 12/01/2022 The patient was seen and examined in medical floor She has been feeling much better and awaiting placement Still has minimal pain involving the left knee 12/02/2022 The patient was seen and examined in medical floor She has been stable without any acute distress 12/03/2022 The patient was seen and examined in the medical floor She has been stable without any acute distress Waiting to be placed 12/04/2022 The patient was seen and examined in medical floor She has been stable and waiting for placement 12/05/2022 The patient was seen and examined in medical floor She has been stable and waiting to be placed Likely be discharged tomorrow Review of Systems Review of Systems: At least ten systems reviewed and negative except as noted in the HPI. Physical Exam Physical Exam: Lying in bed comfortably Constitutional: well developed, well nourished, + ill appearing and + obese Eyes: PERRL, conjunctivae normal, anicteric sclerae ENMT: external ear and nose normal, oropharynx normal Neck: trachea midline, no thyromegaly Respiratory: no respiratory distress Auscultation: + diminished lung sounds and + crackles Cardiovascular: Rate/Rhythm: regular rate and regular rhythm; not tachycardic Heart Sounds: normal S1, normal S2 and + murmur (2/6 ESM over precordium) Extremities: + edema Gastrointestinal (Abdomen): Inspection/Auscultation: normal bowel sounds; abdomen not distended Percussion/Palpation: abdomen soft; abdomen nontender Musculoskeletal: No acute arthritis involving any of the joint but she does have pain in the right stump Neurologic: normal touch/pain/proprioception and moves all extremities (Has left AKA) Lymphatic: no cervical or axillary lymphadenopathy Results & Data Results & Data Vital Signs (Past 12 Hours) Vital Signs Temp Pulse Resp BP BP Pulse Ox O2 Del Method 12/05/22 14:32 36.5 C 79 16 146/72 H 94 Room Air 12/05/22 13:08 80 147/69 H 12/05/22 07:08 36.7 C 80 16 139/62 94 Room Air Medications Administered Current Inpatient Medications Acetaminophen (Acetaminophen 325 Mg Tab) 650 mg PO Q4H PRN PRN Reason: Pain or Fever Stop: 12/25/22 01:22 Last Admin: 12/05/22 13:19 Dose: 650 mg Aspirin (Aspirin 81 Mg Ectab) 81 mg PO DAILY [facility] Stop: 12/24/22 08:59 Last Admin: 12/05/22 08:22 Dose: 81 mg Atorvastatin Calcium (Atorvastatin 40 Mg Tab) 80 mg PO DAILY [facility] Stop: 12/24/22 08:59 Last Admin: 12/05/22 08:21 Dose: 80 mg Clopidogrel Bisulfate (Clopidogrel Bisulfate 75 Mg Tab) 75 mg PO QAM [facility] Stop: 12/24/22 10:29 Last Admin: 12/05/22 08:22 Dose: 75 mg Dextrose (Dextrose 50% 50 Ml Syringe) 25 - 50 ml IV UD PRN; Protocol PRN Reason: Hypoglycemia Protocol Stop: 12/16/22 23:34 Diclofenac Sodium (Diclofenac Sod 1% Gel 100 Gm Tube) 2 gm EXT BID PRN; Protocol PRN Reason: Pain Stop: 12/27/22 22:59 Last Admin: 12/04/22 20:09 Dose: 2 gm Docusate Sodium (Docusate Sodium 100 Mg Cap) 100 mg PO BID [facility] Stop: 12/23/22 08:59 Last Admin: 12/05/22 08:43 Dose: 100 mg Doxycycline Hyclate (Doxycycline Hyclate 100 Mg Cap) 100 mg PO BID [facility] Stop: 12/08/22 22:00 Last Admin: 12/05/22 08:18 Dose: 100 mg Duloxetine HCl (Duloxetine Hcl 30 Mg Cap) 90 mg PO QAM [facility] Stop: 12/24/22 08:59 Last Admin: 12/05/22 08:23 Dose: 90 mg Enoxaparin Sodium (Enoxaparin Inj 40 Mg/0.4 Ml Syr) 40 mg SQ HS [facility] Stop: 12/20/22 20:59 Last Admin: 12/04/22 20:09 Dose: 40 mg Furosemide (Furosemide 40 Mg Tab) 40 mg PO DAILY [facility] Stop: 12/27/22 08:59 Last Admin: 12/05/22 08:19 Dose: 40 mg Gabapentin (Gabapentin 400 Mg Cap) 400 mg PO TID [facility] Stop: 12/28/22 13:59 Last Admin: 12/05/22 13:18 Dose: 400 mg Glucagon (Glucagon For Inj 1 Mg Vial) 1 mg SQ UD PRN; Protocol PRN Reason: Hypoglycemia Protocol Stop: 12/16/22 23:34 Glucose (Glucose 10 Tab/Tube) 4 - 8 tab PO UD PRN; Protocol PRN Reason: Hypoglycemia Treatment Stop: 12/16/22 23:34 Glucose (Glucose 40% Gel 15 Gm Tube) 15 - 30 gm PO UD PRN; Protocol PRN Reason: Hypoglycemia Protocol Stop: 12/16/22 23:34 Insulin Aspart (Insulin Aspart Per Unit Charge) 0 units SC ACHS [facility] Stop: 12/23/22 11:29 Last Admin: 12/05/22 12:17 Dose: 8 units Insulin Glargine (Lantus Per Unit Charge) 0 units SC BID [facility]; Protocol Stop: 12/21/22 09:14 Last Admin: 12/05/22 08:43 Dose: 10 units Ipratropium [place] (Ipratropium [place] Neb Soln 0.02% 2.5 Ml Vial) 0.5 mg INH Q6R PRN PRN Reason: Shortness Of Breath Or Wheezing Stop: 12/19/22 06:59 Last Admin: 12/04/22 19:47 Dose: 0.5 mg Isosorbide Mononitrate (Isosorbide [place] Extended Rel 30 Mg Tabcr) [facility] [place]: 12/25/22 08:59 Last Admin: 12/05/22 08:21 Dose: 30 mg Levalbuterol HCl (Levalbuterol 1.25 Mg/3 Ml Neb) 1.25 mg NEB Q6R PRN PRN Reason: Shortness Of Breath Or Wheezing Stop: 12/19/22 06:59 Lisinopril (Lisinop[facility] 5 Mg Tab) [facility] [place]: 12/24/22 08:59 Last Admin: 12/05/22 08:23 Dose: 5 mg Melatonin (Melatonin 3 Mg Tab) 9 mg PO HS PRN PRN Reason: insomnia Stop: 01/04/23 23:34 Metoprolol Succinate (Metoprolol Succ 50mg Ext Rel Tab) [facility] [place]: 12/24/22 10:29 Last Admin: 12/05/22 08:20 Dose: 100 mg Metoprolol Succinate (Metoprolol Succ 50mg Ext Rel Tab) 50 mg PO HS [facility] Stop: 12/24/22 20:59 Last Admin: 12/04/22 20:10 Dose: 50 mg Miscellaneous (Carbohydrates For Hypoglycemia ) 15 - 30 gm PO UD PRN PRN Reason: Hypoglycemia Protocol Stop: 12/16/22 23:34 Miscellaneous (Remove Nicoderm Patch) 1 each N/A DAILY@0859 [facility] Stop: 12/25/22 08:58 Last Admin: 12/05/22 08:25 Dose: 1 each Multivitamins/Minerals (Cerovite Adv Formula Tab) 1 tab PO QAM [facility] Stop: 12/23/22 08:59 Last Admin: 12/05/22 08:24 Dose: 1 tab Nicotine (Nicotine 21 Mg/24 Hr Tdsy) 21 mg TD QAM [facility] Stop: 12/24/22 13:29 Last Admin: 12/05/22 08:25 Dose: 21 mg Olanzapine (Olanzapine 5 Mg Tablet) 5 mg PO HS [facility] Stop: 12/18/22 20:59 Last Admin: 12/04/22 20:10 Dose: 5 mg Pantoprazole Sodium (Pantoprazole 40 Mg Tab) 40 mg PO QAM [facility] Stop: 12/25/22 08:59 Last Admin: 12/05/22 08:22 Dose: 40 mg Polyethylene Glycol (Polyethylene (Miralax) 17 Gm Pack) 17 gm PO DAILY PRN PRN Reason: Constipation Stop: 12/29/22 16:56 Last Admin: 11/29/22 17:08 Dose: 17 gm Ropinirole HCl (Ropinirole Hcl 1 Mg Tablet) 1 mg PO QPM [facility] Stop: 12/24/22 20:59 Last Admin: 12/04/22 20:10 Dose: 1 mg Sennosides (Senna 8.6 Mg Tab) 8.6 mg PO QAM [facility] Stop: 12/23/22 08:59 Last Admin: 12/05/22 08:24 Dose: 8.6 mg Topiramate (Topiramate 50 Mg Tab) 50 mg PO BID [facility] Stop: 12/21/22 10:59 Last Admin: 12/05/22 08:18 Dose: 50 mg Tramadol HCl (Tramadol Hcl 50 Mg Tablet) 50 mg PO Q6H PRN PRN Reason: Severe Pain (Scale 7, 8, 9,10) Stop: 12/27/22 19:59 Last Admin: 12/04/22 20:14 Dose: 50 mg
[2022-12-05] MEDS ORDERED: MELATONIN 3 MG TAB PO ONE (20:15)
[2022-12-05] MEDS: OLANZapine 5 MG TABLET PO SCH (20:19)
[2022-12-05] MEDS: traMADol HCL 50 MG TABLET PO PRN (20:20)
[2022-12-05] MEDS: ENOXAPARIN INJ 40 MG/0.4 ML SYR SQ SCH (20:20)
[2022-12-05] MEDS: rOPINIRole HCL 1 MG TABLET PO SCH (20:20)
[2022-12-05] MEDS: DICLOFENAC SOD 1% GEL 100 GM TUBE EXT PRN (20:21)
[2022-12-05] MEDS ORDERED: MELATONIN 3 MG TAB PO PRN (23:35)
[2022-12-06 08:05] LABS: Basophils # (auto) 0.03 K/uL (0.00-0.20); Basophils % (auto) 0.5 %; Eosinophils # (auto) 0.08 K/uL (0.00-0.50); Eosinophils % (auto) 1.2 %; Immature Granulocytes % (auto) 3.1 %; Lymphocytes # (auto) 1.61 K/uL (1.20-3.40); Lymphocytes % (auto) 24.7 %; Mean Corpuscular Hemoglobin 30.2 pg (25.0-34.0); Mean Corpuscular Hgb Conc 29.2 g/dL (32.0-36.0); Mean Corpuscular Volume 103.4 fL (80.0-100.0); Mean Platelet Volume 11.9 fL (9.4-12.4); Monocytes # (auto) 2.06 K/uL (0.11-0.59); Monocytes % (auto) 31.6 %; Neutrophils # (auto) 2.54 K/uL (1.40-6.50); Neutrophils % (auto) 38.9 %; Platelet Count 201 K/uL (130-400); RDW Coefficient of Variation 20.5 % (11.5-14.5); RDW Standard Deviation 77.8 fL (36.4-46.3); Red Blood Count 2.32 M/uL (4.20-5.40); White Blood Count 6.52 K/ul (4.8-10.8)
[2022-12-06] MEDS: ISOSORBIDE MONO EXTENDED REL 30 MG TABCR PO SCH (08:09)
[2022-12-06] MEDS: ASPIRIN 81 MG ECTAB PO SCH (08:09)
[2022-12-06] MEDS: DULoxetine HCL 30 MG CAP PO SCH (08:09)
[2022-12-06] MEDS: FUROSEMIDE 40 MG TAB PO SCH (08:09)
[2022-12-06] MEDS: SENNA 8.6 MG TAB PO SCH (08:09)
[2022-12-06] MEDS: PANTOprazole 40 MG TAB PO SCH (08:10)
[2022-12-06] MEDS: NICOTINE 21 MG/24 HR TDSY TD SCH (08:10)
[2022-12-06] MEDS: ATORVASTATIN 40 MG TAB PO SCH (08:10)
[2022-12-06] MEDS: lisinopril 5 MG TAB PO SCH (08:10)
[2022-12-06] MEDS: METOPROLOL SUCC 50MG EXT REL TAB PO SCH ×2 (08:10→20:23)
[2022-12-06] MEDS: CLOPIDOGREL BISULFATE 75 MG TAB PO SCH (08:11)
[2022-12-06] MEDS: DOXYCYCLINE HYCLATE 100 MG CAP PO SCH ×2 (08:11→20:23)
[2022-12-06] MEDS: CEROVITE ADV FORMULA TAB PO SCH (08:11)
[2022-12-06] MEDS: GABAPENTIN 400 MG CAP PO SCH ×3 (08:12→20:23)
[2022-12-06] MEDS: TOPIRAMATE 50 MG TAB PO SCH ×2 (08:12→20:23)
[2022-12-06 08:15] LABS: Calcium 8.7 mg/dl (8.6-10.3); Creatinine Clr Calc Pharmacy 54.3 ml/min; Est GFR (African American) 72.4 ml/min; Est GFR (Non-African American) 62.5 ml/min; Potassium 3.9 mmol/L (3.5-5.1)
[2022-12-06] MEDS: INSULIN ASPART PER UNIT CHARGE SC SCH ×4 (08:25→21:05)
[2022-12-06] MEDS: DOCUSATE SODIUM 100 MG CAP PO SCH ×2 (08:26→20:23)
[2022-12-06] MEDS: LANTUS PER UNIT CHARGE SC SCH ×2 (08:26→21:05)
[2022-12-06] MEDS ORDERED: SODIUM CHLORIDE 0.9% 250 ML IV PRN (09:01)
[2022-12-06 09:23] LABS: Anisocytosis Present
--- NOTE | 2022-12-06 13:44 | Hospitalist Progress Note ---
Date of Service December 06, 2022 Assessment & Plan (1) Encephalopathy: Plan: Resolved 21-day course of doxycycline-will be finished on 12/08/22 Plan Admitted 10/30-11/15, readmitted 11/16. Initial hospital stay was secondary to acute exacerbation of heart failure with acute on chronic respiratory failure. She was continued on Lasix at discharge with outpatient sleep study recommended by pulmonology. Cefdinir was continued for a UTI secondary to Klebsiella and has completed the antibiotic course. She was readmitted the following day being found down by the daughter with home oxygen not in place and somnolent. Work-up and hospital course as noted above. ACTIVE PROBLEM LIST: Acute respiratory failure with hypoxia requiring intubation, extubated successfully 11/21 COPD with exacerbation, oxygen dependent Pleural effusion status post thoracentesis on 11/03/2022, left-sided, exudate Acute metabolic encephalopathy Sepsis secondary to Multifocal pneumonia-resolved Acute on chronic combined systolic and diastolic heart failure Possible Lyme infection with neurologic involvement, LP declined-complete 21 day course doxycycline. Acute renal failure-resolved hypernatremia, which may have contributed to AMS-resolved. Mixed acid-base disorder-resolved Anemia of chronic disease requiring 2 units of blood to be transfused this admission. New onset thrombocytopenia-resolved, thought secondary to sepsis Peripheral arterial disease Urinary tract infection-treated Diabetes mellitus type 2-chronic, stable. Hypertension-chronic, at goal Coronary artery disease status post CABG-chronic, stable. Severe mitral regurgitation Left bundle branch block Tobacco use-smoking cessation recommended Mood disorder-appears to be at baseline, cont home medications. UTI with Klebsiella, completed antibiotic course, nasal MRSA positive She has been accepted to [facility] and likely to be transferred tomorrow -back to mentating at baseline -Oxygenating at baseline today and improved clinically -restart home PO Lasix at fraction (20mg) of home dose-->increased to Lasix 40mg -Continue 21 days total course of doxycycline for possible neurologic Lyme involvement, noted RPR is nonreactive (through 12/08) -Cont Zyprexa 5 mg p.o. nightly per home regimen -she says she is on home tramadol, however, this is not prescribed per PDMP and she is not consistently on narcotics at home -Increased gabapentin to 400mg BID to TID, cont Topamax per home regimen -Hopeful that the increased gabapentin will help given the elevated risk of medication polypharmacy issues -Unclear source of acute on chronic anemia, continue PPI therapy and monitor bowel movements with CBC daily. Minimize phlebotomy. Pt may need OP hematoloy eval -CAD/PAD-chronic, stable. Continue medical management -Pneumonia-treated and resolved -Smoking cessation recommended-nicotine patch started Diet: DMII diet DVT prophylaxis: Lovenox CODE STATUS: Full code Dispo: Awaiting placement. Plan to d/c to [facility] tomorrow Admission and Anticipated Discharge Date Admission Date: November 16, 2022 Supervising Physician Co-Signing Physician Notes Attending addendum The patient was seen and examined in medical floor. He denies any symptoms today. His hemoglobin is noted to be low at 7.0. He will be given 1 unit of blood transfusion prior to discharge tomorrow. He is notes, medications, labs and imaging studies reviewed. He remains hemodynamically stable and agree with assessment and plan as outlined above by Maris Driscoll PA-C. Dr Carroll Faulkner Subjective Pt was seen and examined in room 360-1. She offers no acute concerns. She is wondering what the plan is. She denies f/c/s, chest pain, sob, n/v/d. Review of Systems Review of Systems: All systems reviewed & are unremarkable except as noted in HPI & below Physical Exam Physical Exam: Gen: WD/WN, chronically ill appearing, NAD, A&O x3 HEENT: Normocephalic, atraumatic, conjunctivae moist, sclerae anicteric, mucous membranes moist. Lung: Clear to Auscultation bilaterally, no wheezes/rales/rhonchi Heart: Regular rate, regular rhythm, no murmurs, rubs, or gallops Abdomen: Soft, NT, ND +BS x 4 Extremities: No edema, R residual limb Skin: Warm, no rash, negative turgor. Results & Data Results & Data Vital Signs (Past 12 Hours) Vital Signs Temp Pulse Pulse Resp BP BP Pulse Ox 12/06/22 12:00 36.2 C L 80 16 135/74 94 12/06/22 11:45 36.7 C 75 16 159/73 H 98 12/06/22 11:26 36.4 C L 78 18 116/61 94 12/06/22 06:16 36.4 C L 77 18 132/70 96 O2 Del Method O2 Flow Rate 12/06/22 12:00 12/06/22 11:45 12/06/22 11:26 12/06/22 06:16 Nasal Cannula 4 Laboratory Results Short CBC 12/06/22 Range/Units 06:52 WBC 6.52 (4.8-10.8) K/ul Hgb 7.0 L (12.0-16.0) g/dl Hct 24.0 L (37.0-47.0) % Plt Count 201 (130-400) K/uL BMP 12/06/22 06:52 Sodium 138 Potassium 3.9 Chloride 108 H Carbon Dioxide 26 BUN 25 H Creatinine 0.96 Glucose 175 H Calcium 8.7 Medications Administered Current Inpatient Medications Acetaminophen (Acetaminophen 325 Mg Tab) 650 mg PO Q4H PRN PRN Reason: Pain or Fever Stop: 12/25/22 01:22 Last Admin: 12/05/22 20:19 Dose: 650 mg Aspirin (Aspirin 81 Mg Ectab) 81 mg PO DAILY [facility] Stop: 12/24/22 08:59 Last Admin: 12/06/22 08:09 Dose: 81 mg Atorvastatin Calcium (Atorvastatin 40 Mg Tab) 80 mg PO DAILY [facility] Stop: 12/24/22 08:59 Last Admin: 12/06/22 08:10 Dose: 80 mg Clopidogrel Bisulfate (Clopidogrel Bisulfate 75 Mg Tab) 75 mg PO QAM [facility] Stop: 12/24/22 10:29 Last Admin: 12/06/22 08:11 Dose: 75 mg Dextrose (Dextrose 50% 50 Ml Syringe) 25 - 50 ml IV UD PRN; Protocol PRN Reason: Hypoglycemia Protocol Stop: 12/16/22 23:34 Diclofenac Sodium (Diclofenac Sod 1% Gel 100 Gm Tube) 2 gm EXT BID PRN; Protocol PRN Reason: Pain Stop: 12/27/22 22:59 Last Admin: 12/05/22 20:21 Dose: 2 gm Docusate Sodium (Docusate Sodium 100 Mg Cap) 100 mg PO BID [facility] Stop: 12/23/22 08:59 Last Admin: 12/06/22 08:26 Dose: 100 mg Doxycycline Hyclate (Doxycycline Hyclate 100 Mg Cap) 100 mg PO BID [facility] Stop: 12/08/22 22:00 Last Admin: 12/06/22 08:11 Dose: 100 mg Duloxetine HCl (Duloxetine Hcl 30 Mg Cap) 90 mg PO QAM [facility] Stop: 12/24/22 08:59 Last Admin: 12/06/22 08:09 Dose: 90 mg Enoxaparin Sodium (Enoxaparin Inj 40 Mg/0.4 Ml Syr) 40 mg SQ HS [facility] Stop: 12/20/22 20:59 Last Admin: 12/05/22 20:20 Dose: 40 mg Furosemide (Furosemide 40 Mg Tab) 40 mg PO DAILY [facility] Stop: 12/27/22 08:59 Last Admin: 12/06/22 08:09 Dose: 40 mg Gabapentin (Gabapentin 400 Mg Cap) 400 mg PO TID [facility] Stop: 12/28/22 13:59 Last Admin: 12/06/22 12:56 Dose: 400 mg Glucagon (Glucagon For Inj 1 Mg Vial) 1 mg SQ UD PRN; Protocol PRN Reason: Hypoglycemia Protocol Stop: 12/16/22 23:34 Glucose (Glucose 10 Tab/Tube) 4 - 8 tab PO UD PRN; Protocol PRN Reason: Hypoglycemia Treatment Stop: 12/16/22 23:34 Glucose (Glucose 40% Gel 15 Gm Tube) 15 - 30 gm PO UD PRN; Protocol PRN Reason: Hypoglycemia Protocol Stop: 12/16/22 23:34 Sodium Chloride (Nss) 250 mls @ 15 mls/hr IV .[id number] PRN PRN Reason: For Transfusion Duration Stop: 12/06/22 19:02 Insulin Aspart (Insulin Aspart Per Unit Charge) 0 units SC ACHS [facility] Stop: 12/23/22 11:29 Last Admin: 12/06/22 12:57 Dose: 11 units Insulin Glargine (Lantus Per Unit Charge) 0 units SC BID [facility]; Protocol Stop: 12/21/22 09:14 Last Admin: 12/06/22 08:26 Dose: 10 units Ipratropium [place] (Ipratropium [place] Neb Soln 0.02% 2.5 Ml Vial) 0.5 mg INH Q6R PRN PRN Reason: Shortness Of Breath Or Wheezing Stop: 12/19/22 06:59 Last Admin: 12/04/22 19:47 Dose: 0.5 mg Isosorbide Mononitrate (Isosorbide [place] Extended Rel 30 Mg Tabcr) 30 mg PO QAM [facility] Stop: 12/25/22 08:59 Last Admin: 12/06/22 08:09 Dose: 30 mg Levalbuterol HCl (Levalbuterol 1.25 Mg/3 Ml Neb) 1.25 mg NEB Q6R PRN PRN Reason: Shortness Of Breath Or Wheezing Stop: 12/19/22 06:59 Lisinopril (Lisinopril 5 Mg Tab) 5 mg PO QAM [facility] Stop: 12/24/22 08:59 Last Admin: 12/06/22 08:10 Dose: 5 mg Melatonin (Melatonin 3 Mg Tab) 9 mg PO HS PRN PRN Reason: insomnia Stop: 01/04/23 23:34 Metoprolol Succinate (Metoprolol Succ 50mg Ext Rel Tab) 100 mg PO QAM [facility] Stop: 12/24/22 10:29 Last Admin: 12/06/22 08:10 Dose: 100 mg Metoprolol Succinate (Metoprolol Succ 50mg Ext Rel Tab) 50 mg PO HS [facility] Stop: 12/24/22 20:59 Last Admin: 12/05/22 20:20 Dose: 50 mg Miscellaneous (Carbohydrates For Hypoglycemia ) 15 - 30 gm PO UD PRN PRN Reason: Hypoglycemia Protocol Stop: 12/16/22 23:34 Miscellaneous (Remove Nicoderm Patch) 1 each N/A DAILY@0859 [facility] Stop: 12/25/22 08:58 Last Admin: 12/06/22 08:13 Dose: 1 each Multivitamins/Minerals (Cerovite Adv Formula Tab) 1 tab PO QAM [facility] Stop: 12/23/22 08:59 Last Admin: 12/06/22 08:11 Dose: 1 tab Nicotine (Nicotine 21 Mg/24 Hr Tdsy) [facility] [place] Stop: 12/24/22 13:29 Last Admin: 12/06/22 08:10 Dose: 21 mg Olanzapine (Olanzapine 5 Mg Tablet) 5 mg PO HS [facility] Stop: 12/18/22 20:59 Last Admin: 12/05/22 20:19 Dose: 5 mg Pantoprazole Sodium (Pantoprazole 40 Mg Tab) 40 mg PO QAM [facility] Stop: 12/25/22 08:59 Last Admin: 12/06/22 08:10 Dose: 40 mg Polyethylene Glycol (Polyethylene (Miralax) 17 Gm Pack) 17 gm PO DAILY PRN PRN Reason: Constipation Stop: 12/29/22 16:56 Last Admin: 11/29/22 17:08 Dose: 17 gm Ropinirole HCl (Ropinirole Hcl 1 Mg Tablet) 1 mg PO QPM [facility] Stop: 12/24/22 20:59 Last Admin: 12/05/22 20:20 Dose: 1 mg Sennosides (Senna 8.6 Mg Tab) 8.6 mg PO QAM [facility] Stop: 12/23/22 08:59 Last Admin: 12/06/22 08:09 Dose: 8.6 mg Topiramate (Topiramate 50 Mg Tab) 50 mg PO BID [facility] Stop: 12/21/22 10:59 Last Admin: 12/06/22 08:12 Dose: 50 mg Tramadol HCl (Tramadol Hcl 50 Mg Tablet) 50 mg PO Q6H PRN PRN Reason: Severe Pain (Scale 7, 8, 9,10) Stop: 12/27/22 19:59 Last Admin: 12/05/22 20:20 Dose: 50 mg
[2022-12-06] MEDS: OLANZapine 5 MG TABLET PO SCH (20:23)
[2022-12-06] MEDS: ENOXAPARIN INJ 40 MG/0.4 ML SYR SQ SCH (20:23)
[2022-12-06] MEDS: traMADol HCL 50 MG TABLET PO PRN (20:23)
[2022-12-06] MEDS: rOPINIRole HCL 1 MG TABLET PO SCH (20:23)
[2022-12-06] MEDS: ACETAMINOPHEN 325 MG TAB PO PRN (20:23)
[2022-12-06] MEDS: DICLOFENAC SOD 1% GEL 100 GM TUBE EXT PRN (20:23)
[2022-12-07] MEDS ORDERED: LORazepam 0.5 MG TAB PO STA (00:12)
[2022-12-07] MEDS: traMADol HCL 50 MG TABLET PO PRN ×2 (07:47→14:18)
[2022-12-07] MEDS: INSULIN ASPART PER UNIT CHARGE SC SCH ×2 (08:59→13:04)
[2022-12-07] MEDS: LANTUS PER UNIT CHARGE SC SCH (09:01)
[2022-12-07] MEDS: CEROVITE ADV FORMULA TAB PO SCH (09:06)
[2022-12-07] MEDS: DULoxetine HCL 30 MG CAP PO SCH (09:06)
[2022-12-07] MEDS: DOXYCYCLINE HYCLATE 100 MG CAP PO SCH (09:06)
[2022-12-07] MEDS: ISOSORBIDE MONO EXTENDED REL 30 MG TABCR PO SCH (09:06)
[2022-12-07] MEDS: ATORVASTATIN 40 MG TAB PO SCH (09:06)
[2022-12-07] MEDS: TOPIRAMATE 50 MG TAB PO SCH (09:06)
[2022-12-07] MEDS: lisinopril 5 MG TAB PO SCH (09:06)
[2022-12-07] MEDS: GABAPENTIN 400 MG CAP PO SCH ×2 (09:06→14:18)
[2022-12-07] MEDS: PANTOprazole 40 MG TAB PO SCH (09:06)
[2022-12-07] MEDS: SENNA 8.6 MG TAB PO SCH (09:06)
[2022-12-07] MEDS: METOPROLOL SUCC 50MG EXT REL TAB PO SCH (09:07)
[2022-12-07] MEDS: NICOTINE 21 MG/24 HR TDSY TD SCH (09:07)
[2022-12-07] MEDS: CLOPIDOGREL BISULFATE 75 MG TAB PO SCH (09:07)
[2022-12-07] MEDS: ASPIRIN 81 MG ECTAB PO SCH (09:07)
[2022-12-07] MEDS: FUROSEMIDE 40 MG TAB PO SCH (09:07)
[2022-12-07] MEDS: DOCUSATE SODIUM 100 MG CAP PO SCH (09:14)
[2022-12-07 10:17] LABS: Basophils # (auto) 0.03 K/uL (0.00-0.20); Basophils % (auto) 0.4 %; Eosinophils # (auto) 0.05 K/uL (0.00-0.50); Eosinophils % (auto) 0.7 %; Hematocrit (blood only) 29.2 % (37.0-47.0); Hemoglobin 8.9 g/dl (12.0-16.0); Immature Granulocytes # (auto) 0.28 K/uL (0.01-0.20); Lymphocytes # (auto) 1.65 K/uL (1.20-3.40); Lymphocytes % (auto) 23.3 %; Mean Corpuscular Hemoglobin 30.4 pg (25.0-34.0); Mean Corpuscular Hgb Conc 30.5 g/dL (32.0-36.0); Mean Corpuscular Volume 99.7 fL (80.0-100.0); Mean Platelet Volume 11.7 fL (9.4-12.4); Monocytes # (auto) 1.64 K/uL (0.11-0.59); Monocytes % (auto) 23.2 %; Neutrophils # (auto) 3.42 K/uL (1.40-6.50); Neutrophils % (auto) 48.4 %; Platelet Count 207 K/uL (130-400); RDW Coefficient of Variation 21.2 % (11.5-14.5); RDW Standard Deviation 75.8 fL (36.4-46.3); Red Blood Count 2.93 M/uL (4.20-5.40); White Blood Count 7.07 K/ul (4.8-10.8)
[2022-12-07] MEDS: ACETAMINOPHEN 325 MG TAB PO PRN (13:07)
--- NOTE | 2022-12-07 14:10 | Discharge Summary ---
Discharge Summary Date of Service December 07, 2022 Notes For Next Care Provider Please repeat CBC, BMP in 3 days. Hgb Day of D/C 8.9. She required 3 total units of PRBC while admitted. Medication Changes From Visit Doxycycline 100mg twice daily for additional 3 doses, next dose 12/07/22 at HS. To complete on 12/08/22. Furosemide reduced to 40mg daily. Gabapentin increased to 400mg three times daily. Tramadol 50mg every 6 hours as needed for pain. Admission HPI Per Admitting Provider History obtained from patient, family, and records. Limited history from patient secondary to disorientation. Medical history significant for chronic diastolic heart failure (EF 55 to 60%, TTE 2022), CAD status post CABG, PVD, valvular heart disease (moderate to severe MR), history mitral valve endocarditis/periaortic abscess as per records, chronic LBBB, chronic respiratory failure secondary to possible COPD as per records on home O2, ISAURA on CPAP, hypertension, hyperlipidemia, DM 2 insulin requiring, GERD, chronic anemia (baseline hemoglobin of 8), mood disorder, paranoia as per records, history of MRSA bacteremia as per records, medical noncompliance as per records, ongoing tobacco abuse. 10 30 to 11/08 Patient confined for decompensated heart failure. 11/13 to 11/14 Patient confined for chest pain. Patient evaluated by Cardiology. Patient refused PT evaluation. Patient requested to be discharged home as per documentation. Patient with lightheadedness symptoms prior to leaving hospital as per daughters. Patient noted to be confused at home by family today. Patient sleepy and able to answer questions. EMS called to patient's home. Oxygen on the lower side. Lowest O2 sats of 80s documented at the ER. Patient unable to answer questions regarding chest pain, SOB, abdominal pain, headache symptoms. Medical History as above Surgical History : CABG, hysterectomy, cholecystectomy Family History : DM, heart disease, stroke Personal/Social history : 1 pack daily, occasional EtOH intake, lives by self Admission Exam Per Admitting Provider GENERAL: Disoriented, restless , no respiratory distress SKIN: Pallor, warm HEENT: Pale palpebral conjunctivae, no ptosis, dry buccal mucosa, nasal cannula in place NECK : Supple, no tenderness CHEST : Decreased breath sounds, no tenderness HEART : Tachycardic, systolic murmur ABDOMEN: Some distention, nontender RECTAL : Intact sphincter, brown stool (FOBT negative) EXTREMITIES : Minimal LE swelling/tenderness, no other conspicuous deformities noted NEUROLOGIC : Disoriented, no facial asymmetry, restless, gait and stance not ass essed Principal Dx & Hospital Course #1 = Principal Diagnosis (1) Encephalopathy: Plan This is a 62yo F with a PMH of CAD s/p CABG x4, history of ischemic cardiomyopathy, moderate to severe MR, chronic HFpEF, HTN, history of LBBB, HLD, insulin-dependent T2DM, chronic tobacco abuse, 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 Pt with recent hospitalizations prior to current. She was admitted 10/30-11/15 and readmitted 11/16. Initial hospital stay was secondary to acute exacerbation of heart failure with acute on chronic respiratory failure. She was continued on Lasix at discharge with outpatient sleep study recommended by pulmonology. Cefdinir was continued for a UTI secondary to Klebsiella and has completed the antibiotic course. She was readmitted the following day being found down by the daughter with home oxygen not in place and somnolent. Patient was diagnosed with acute on chronic respiratory failure with hypoxia requiring intubation mechanical ventilation and ICU stay. She was found to have sepsis secondary to multifocal pneumonia, COPD exacerbation, UTI and acute on chronic combined systolic and diastolic heart failure. She was a treated with appropriate IV antibiotic course. There was concern about possible lyme infection as well with possible neurologic involvement due to a persistent acute metabolic encephalopathy. Lumbar puncture was declined by patient and therefore she has been empirically treated with oral doxycycline for 21-day course. Her doxycycline will complete at the end of day on 12/08/2022. Her hospital course was complicated with acute on chronic anemia requiring 3 units of PRBCs to be transfused. She had no clear source of bleeding was felt to be secondary to acute systemic illness. She was placed on oral PPI. She will need close monitoring of her hemoglobin and if continues to drop will need outpatient hematology evaluation. Her hemoglobin on day of discharge was 8.9. She has nasal MRSA positive. Recommend contact precautions. She is a life long smoker and cessation has been advised. She utilized nicotine patch while inpatient. She was seen and evaluated by PT/OT who recommended SNF at discharge; therefore she will be going to [facility]. On day of discharge she was feeling well and medically and hemodynamically stable. She offers no acute concerns, is tolerating diet and last bowel movement was on day of discharge. Discharge Exam Gen: WD/WN, chronically ill appearing, NAD, A&O x3 HEENT: Normocephalic, atraumatic, conjunctivae moist, sclerae anicteric, mucous membranes moist. Lung: Clear to Auscultation bilaterally, no wheezes/rales/rhonchi Heart: Regular rate, regular rhythm, no murmurs, rubs, or gallops Abdomen: Soft, NT, ND +BS x 4 Extremities: No edema, Left residual limb Skin: Warm, no rash, negative turgor. Updated Medication List Medication Instructions Recorded Confirmed Type clopidogrel 75 mg tablet 75 mg PO DAILY 03/16/21 11/16/22 History duloxetine 60 mg capsule,delayed 90 mg PO QAM 03/16/21 11/16/22 History release topiramate 50 mg tablet 50 mg PO BID 03/16/21 11/16/22 History aspirin 81 mg tablet,delayed 81 mg PO DAILY 05/14/21 11/16/22 History release insulin aspart U-100 100 unit/mL 0 unit subcut TID 05/14/21 11/16/22 History (3 mL) subcutaneous pen (Novolog FlexPen U-100 Insulin aspart) nitroglycerin 0.4 mg sublingual 0.4 mg sublingual .PRN/UD PRN 05/14/21 11/16/22 History tablet Chest Pain acetaminophen 500 mg tablet 500 mg PO Q6H PRN Pain 08/23/21 11/16/22 History (Tylenol Extra Strength) cetirizine 10 mg tablet (Zyrtec) 10 mg PO DAILY 08/02/22 11/16/22 History melatonin 5 mg tablet 5 mg PO HS 08/02/22 11/16/22 History atorvastatin 80 mg tablet 80 mg PO DAILY 08/04/22 11/16/22 History insulin glargine 100 unit/mL (3 35 unit subcut QAM 10/30/22 11/16/22 History mL) subcutaneous pen (Basaglar KwikPen U-100 Insulin) metoprolol succinate 50 mg 50 mg PO QPM 10/30/22 11/16/22 History tablet,extended release 24 hr metoprolol succinate 50 mg 100 mg PO QAM 10/30/22 11/16/22 History tablet,extended release 24 hr ondansetron 4 mg disintegrating 4 mg PO Q8H PRN N/V 11/14/22 11/16/22 History tablet isosorbide mononitrate 30 mg 30 mg PO QAM #30 tabs 11/15/22 11/16/22 Rx tablet,extended release 24 hr lisinopril 5 mg tablet (Zestril) 5 mg PO QAM #30 tabs 11/15/22 11/16/22 Rx olanzapine 5 mg tablet 5 mg PO HS 11/16/22 11/16/22 History pantoprazole 40 mg tablet,delayed 40 mg PO DAILY 11/16/22 11/16/22 History release ropinirole 1 mg tablet 1 mg PO QPM 11/16/22 11/16/22 History doxycycline hyclate 100 mg capsule 100 mg PO BID #3 caps 12/07/22 Rx furosemide 40 mg tablet 40 mg PO DAILY #30 tabs 12/07/22 Rx gabapentin 400 mg capsule 400 mg PO TID #30 caps 12/07/22 Rx tramadol 50 mg tablet 50 mg PO Q6H PRN severe pain #12 12/07/22 Rx tabs Hospital Stay Data Consultations 11/16/22 20:16 ED Decision to Admit Stat 11/18/22 12:31 Consult Pulmonology Routine 11/19/22 01:17 Consult Mail Room Routine 11/22/22 06:43 Consult Psychiatry Routine Diagnostic Imagining Performed Chest X-Ray 11/16/22 15:45 XR chest 1V portable HISTORY: 62 years-old Female Dyspnea acute shortness of breath COMPARISON: 11/14/2022 TECHNIQUE: AP view of the chest FINDINGS: Cardiac silhouette is enlarged. Prior median sternotomy with CABG. Pulmonary vascular congestion. Trace pleural effusions. No pneumothorax, or lobar airspace consolidation. The bones appear grossly intact. Cholecystectomy. IMPRESSION: Cardiomegaly with pulmonary vascular congestion. ACT 112: Negative or not required by law. The above report was generated using voice recognition software. It may contain grammatical, syntax or spelling errors. Electronically signed by: Alexi Wu M.D. 11/16/2022 4:[address] 11/16/22 15:46 CT head/brain wo con CLINICAL HISTORY: 62 years-old Female with AMS. Acutely altered mental status TECHNIQUE: Multiple axial CT images of the head were obtained without contrast. A dose lowering technique was utilized adhering to the principles of ALARA. CT DOSE: 625.8 mGy.cm COMPARISON: None. FINDINGS: No acute intracranial hemorrhage, midline shift, intracranial mass, hydrocephalus, territorial ischemia or abnormal extra-axial collection. Involutional changes with mild white matter hypodensities likely representing chronic microvascular ischemic disease. The calvarium is intact. Prior bilateral lens repair. The paranasal sinuses, mastoid air cells, and middle ear cavities are clear. IMPRESSION: No acute intracranial abnormality. ACT 112: Negative or not required by law. The above report was generated using voice recognition software. It may contain grammatical, syntax or spelling errors. Electronically signed by: Alexi Wu M.D. 11/16/2022 4:20 PM Abdomen/Pelvis CT 11/16/22 18:45 Exam(s): CT ABDOMEN + PELVIS With Contrast IV Amt: 92 ml opti 320 EXAM: CT Abdomen and Pelvis With Intravenous Contrast CLINICAL HISTORY: Reason for exam: elevated WBC, confusion. TECHNIQUE: Axial computed tomography images of the abdomen and pelvis with intravenous contrast. CTDI is 26.39 mGy and DLP is 1287.65 mGy-cm. Automated exposure control was utilized for the study. A dose lowering technique was utilized adhering to the principles of ALARA. CONTRAST: Patient received 92 ml opti 320 of IV contrast COMPARISON: No relevant prior studies available. FINDINGS: Lung bases: Unremarkable. No mass. No consolidation. Heart: Cardiomegaly. ABDOMEN: Liver: Unremarkable. No focal hepatic lesion. Gallbladder and bile ducts: Cholecystectomy. No ductal dilation. Pancreas: Unremarkable. No mass. No ductal dilation. Spleen: Unremarkable. No splenomegaly. Adrenals: Bilateral adrenal nodules, limited in evaluation due to contrast. These may represent adenomas and can be confirmed on a noncontrast CT scan. Kidneys and ureters: Unremarkable. No solid mass. No hydronephrosis. Stomach and bowel: Diverticulosis, without acute diverticulitis. No small bowel obstruction. No free air. PELVIS: Appendix: No findings to suggest acute appendicitis. Bladder: Unremarkable. No mass. Reproductive: Hysterectomy. ABDOMEN and PELVIS: Intraperitoneal space: See above. Bones/joints: Sternotomy wires. Degenerative changes of the spine. No acute fracture. No dislocation. Soft tissues: Unremarkable. Vasculature: Atherosclerotic changes of the aorta. No abdominal aortic aneurysm. Lymph nodes: Unremarkable. No enlarged lymph nodes. IMPRESSION: 1. Bilateral adrenal nodules, limited in evaluation due to contrast. These may represent adenomas and can be confirmed on a noncontrast CT scan. 2. Cholecystectomy. 3. Hysterectomy. 4. Diverticulosis, without acute diverticulitis. No small bowel obstruction. No free air. Electronically signed by: Bismark Myles MD 11/16/22 19:[address] 11/18/22 08:55 CT chest diagnostic wo con CT DOSE: 735.65 mGy.cm CLINICAL HISTORY: 62 years-old Female with sepsis, SOB. 2 sepsis with shortness of breath TECHNIQUE: Multiaxial CT images of the chest were performed without contrast. A dose lowering technique was utilized adhering to the principles of ALARA. COMPARISON: CT chest 11/14/2022 FINDINGS: Limited exam secondary to positioning. Moderate to marked cardiomegaly. Prior median sternotomy with CABG. Extensive lac vieux coronary artery calcifications. No pericardial effusion or thoracic aortic aneurysm. Dilated pulmonary artery redemonstrated suggestive of pulmonary arterial hypertension. Mild mediastinal and hilar lymphadenopathy is again noted with nodes measuring up to approximately 12 mm. Unremarkable thyroid. Small pleural effusions. Left hemidiaphragmatic elevation. Progressive pulmonary edema with intralobular septal thickening, intermixed groundglass and consolidative opacities. Consolidation is most pronounced within the left lung. Mild left lung volume loss. Dependent right lower lobe opacities suggest probable atelectasis. 4 mm solid nodule of the right upper lobe again noted. No suspicious pulmonary nodules or masses. Mild left lower lobe mucous plugging. Cholecystectomy. Asymmetric left perinephric inflammatory stranding unchanged benign-appearing adrenal gland thickening. Cholecystectomy. Unremarkable soft tissues. Degenerative changes of the shoulders and spine. IMPRESSION: 1. Cardiomegaly with progressive interstitial and alveolar pulmonary edema with small pleural effusions. 2. Additional dependent consolidations of the left upper and lower lobes may represent atelectasis versus pneumonia. 3. Unchanged mediastinal and hilar lymphadenopathy. 4. Nonspecific asymmetric left perinephric stranding. Correlate with urinalysis to exclude infection. 5. Additional findings as above. ACT 112: Negative or not required by law. Electronically signed by: Alexi Wu M.D. 11/18/2022 11:43 AM Chest X-Ray 11/18/22 23:51 SINGLE VIEW CHEST CLINICAL HISTORY: Hypoxia. FINDINGS: An AP, portable, semierect chest radiograph is compared to study dated 11/16/2022 and correlated with chest CT dated 11/18/2022. The examination is degraded by portable technique and patient rotation. The patient is status post midline sternotomy. The heart is enlarged noting atherosclerotic calcification of the thoracic aorta. There is pulmonary vascular congestion with mild interstitial edema. There are trace pleural effusions with dependent atelectasis. No pneumothorax is seen. The skeletal structures are osteopenic. The bony thorax is grossly intact. Cholecystectomy clips are noted in the right upper quadrant. IMPRESSION: 1. Cardiomegaly with evidence of congestive failure and mild pulmonary edema. This has worsened as compared to 11/16/2022. 2. Small pleural effusions. ACT 112: Negative or not required by law. Electronically signed by: Geovani Dumont M.D. 11/19/2022 7:[address] 11/19/22 20:59 CT SCAN OF THE BRAIN WITHOUT IV CONTRAST CLINICAL HISTORY: Change in mental status. Unequal pupils. COMPARISON STUDY: CT of the brain dated 11/16/2022. TECHNIQUE: Unenhanced axial CT scan of the brain is performed from the vertex to the skull base. A dose lowering technique was utilized adhering to the principles of ALARA. CT DOSE: 1499.97 mGy.cm FINDINGS: Brain parenchyma: There is age-related involutional change noting minimal microangiopathic disease. There is no hemorrhage, mass effect, or evidence of acute territorial ischemia by CT criteria. Yuen-white matter differentiation is preserved. No extra-axial fluid collection is seen. Ventricles, sulci, cisterns: Prominent secondary to involutional change. Intracranial vasculature: There is atherosclerotic calcification of the cavernous carotid arteries. Calvarium: Unremarkable. Sinuses and mastoids: The paranasal sinuses are clear. The mastoid air cells are well pneumatized. Orbits: The bony orbits are grossly intact. There are bilateral ocular lens implants. IMPRESSION: There is no hemorrhage, mass effect, or evidence of acute territorial ischemia by CT criteria. No change from 11/16/2022. ACT 112: Negative or not required by law. Electronically signed by: Geovani Dumont M.D. 11/19/2022 10:15 PM Chest X-Ray 11/20/22 07:00 SINGLE VIEW CHEST CLINICAL HISTORY: Follow-up congestive failure. FINDINGS: An AP, portable, upright chest radiograph is compared to study dated 11/19/2022 and correlated with chest CT dated 11/18/2022. The patient is status post midline sternotomy. The heart is enlarged noting atherosclerotic calcification of the thoracic aorta. There is persistent pulmonary vascular congestion. Airspace opacities likely represent mild pulmonary edema. There are trace pleural effusions with dependent atelectasis. No pneumothorax is seen. The skeletal structures are osteopenic. The bony thorax is grossly intact. Cholecystectomy clips are noted in the right upper quadrant. IMPRESSION: 1. Cardiomegaly with evidence of congestive failure. Mild bilateral airspace opacities likely represent pulmonary edema. Correlate clinically for evidence of a superimposed pneumonia. Findings are similar to yesterday. 2. Trace pleural effusions. ACT 112: Negative or not required by law. Electronically signed by: Geovani Dumont M.D. 11/20/2022 8:14 AM Chest X-Ray 11/20/22 09:12 SINGLE VIEW CHEST CLINICAL HISTORY: Respiratory failure. Intubation. FINDINGS: An AP, portable, upright chest radiograph is compared to performed earlier this day 11/20/2022 and correlated with chest CT dated 11/18/2022. An endotracheal tube has been placed. The tip projects approximately 4 cm above the ava. An enteric tube has been placed. The tip projects below the diaphragm over the stomach. The patient is status post midline sternotomy. The heart is enlarged noting atherosclerotic calcification of the thoracic aorta. There is persistent pulmonary vascular congestion. Airspace opacities likely represent mild pulmonary edema. There are trace pleural effusions with dependent atelectasis. No pneumothorax is seen. The skeletal structures are osteopenic. The bony thorax is grossly intact. Cholecystectomy clips are noted in the right upper quadrant. IMPRESSION: 1. Endotracheal and enteric tubes have been placed as above. 2. Cardiomegaly with evidence of congestive failure. Mild bilateral airspace opacities likely represent pulmonary edema. Correlate clinically for evidence of a superimposed pneumonia. This is unchanged from today's earlier examination. 3. Trace pleural effusions. ACT 112: Negative or not required by law. Electronically signed by: Geovani Dumont M.D. 11/20/2022 9:38 AM Brain MRI 11/20/22 17:24 MRI OF THE BRAIN COMBO CLINICAL HISTORY: Change in mental status. COMPARISON STUDY: CT of the brain dated 11/19/2022. TECHNIQUE: MRI of the brain was performed utilizing various T1 and T2-weighted sequences in the axial, sagittal, and coronal planes. Contrast-enhanced sequences were acquired following the administration of 6.4 cc of Gadavist. FINDINGS: Brain parenchyma: There is mild age-related change. There is no hemorrhage or mass effect. There is no restricted diffusion to suggest acute ischemia. No enhancing mass lesion is identified on the postcontrast images. Yuen-white matter differentiation is preserved. No extra-axial fluid collection is seen. The cerebellar tonsils are normal in configuration. Ventricles, sulci, and cisterns: Normal in configuration. Pituitary and sella: Partially empty sella is incidentally noted. Intracranial vasculature: Normal flow voids are maintained at the skull base. Orbits: The bony orbits are grossly intact. Orbital contents are normal in appearance nothing bilateral ocular lens implant. Sinuses and mastoids: The sinuses and mastoids are clear. Secretions are noted in the pharynx. Calvarium: Unremarkable. Cervical cord: Partially visualized cervical spinal cord is normal in morphology and signal intensity. IMPRESSION: No acute intracranial abnormality. ACT 112: Negative or not required by law. Electronically signed by: Geovani Dumont M.D. 11/20/2022 1:41 PM Chest X-Ray 11/21/22 07:00 XR chest 1V portable CLINICAL HISTORY: Respiratory failure. COMPARISON STUDY: Chest CT November 18, 2022. Chest radiograph November 20, 2022. FINDINGS: Tip of endotracheal tube is 2.5 cm above the ava. Tip of nasogastric tube is below the lower aspect of this image but at least within the stomach. There are median sternotomy wires and mediastinal surgical clips. Cardiomegaly is unchanged. Interstitial thickening and airspace opacities have improved. Small left pleural effusion is noted. There is no pneumothorax. IMPRESSION: 1. Interval improvement in pulmonary edema. 2. Small left pleural effusion. No pneumothorax. 3. Satisfactory positioning of the endotracheal and nasogastric tubes. ACT 112: Negative or not required by law. Electronically signed by: Grover Delacruz M.D. 11/21/2022 7:56 AM Pending Results Patient Have Any Pending Studies at Discharge: No Discharge Instructions Given to Patient (Per Discharging Provider) MEDICATION CHANGES: Doxycycline 100mg twice daily for additional 3 doses, next dose 12/07/22 at HS. To complete on 12/08/22. Furosemide reduced to 40mg daily. Gabapentin increased to 400mg three times daily. Tramadol 50mg every 6 hours as needed for pain. RECOMMENDATIONS FOR FOLLOW-UP: Please follow up with Primary care provider upon discharge from rehab. Please take all medications as prescribed. OTHER INSTRUCTIONS: Seek medical attention if you have: * temperature above 101 * chest pain or trouble breathing * abdominal pain, nausea, vomiting * diarrhea, dark stools or bloody stools * any unanswered questions or concerns Call 911 if symptoms are severe. Please take good care of yourself. It has been a pleasure taking care of you. Please take care of yourself. If you have any questions regarding your recent hospitalization please contact [facility] and request constance Padillaist @ [phone]. Prema Dickens PA-C Total Time Total Time Spent Total Time Spent (In Minutes): 60 minutes Supervising Physician Co-Signing Physician Notes Attending addendum The patient was seen and examined in medical floor She has been feeling much better following blood transfusion and the hemoglobin went up to 8.9 today Denies any significant symptoms today She has been accepted to [facility] and will be discharged this afternoon On examination Lying in bed without any acute distress Hemodynamically stable with blood pressure on the upper side at 161/80 Chestclear to auscultate bilaterally HeartS1, [id number] Abdomenbenign Extremitiesno edema on the right side and she has left AKA Her labs, medications and imaging studies reviewed Remains medically stable to be transferred Agree with assessment and plan as outlined above as documented by Maris Driscoll PA-C which was reviewed by me before discharge. Dr Carroll Fualkner
== END 2022-12-07 16:16 | DRG 871 ==
LOC: ED 15:16 → SUATTDRO 21:26 → 4W 21:26 → 1E 11-19 01:14 → 2S 11-23 20:57 → 3W 11-25 16:44

== ENCOUNTER 2022-12-31 02:08 | Inpatient (IN) ==
[2022-12-31 03:02] LABS: Basophils # (auto) 0.02 K/uL (0.00-0.20); Basophils % (auto) 0.2 %; Eosinophils # (auto) 0.03 K/uL (0.00-0.50); Eosinophils % (auto) 0.3 %; Hematocrit (blood only) 26.5 % (37.0-47.0); Hemoglobin 7.8 g/dl (12.0-16.0); Immature Granulocytes % (auto) 1.7 %; Lymphocytes # (auto) 0.89 K/uL (1.20-3.40); Lymphocytes % (auto) 7.6 %; Mean Corpuscular Hemoglobin 32.1 pg (25.0-34.0); Mean Corpuscular Hgb Conc 29.4 g/dL (32.0-36.0); Mean Corpuscular Volume 109.1 fL (80.0-100.0); Mean Platelet Volume 11.6 fL (9.4-12.4); Monocytes # (auto) 2.45 K/uL (0.11-0.59); Monocytes % (auto) 20.8 %; Neutrophils # (auto) 8.19 K/uL (1.40-6.50); Neutrophils % (auto) 69.4 %; Nucleated RBC # (auto) 0.02 K/uL (0.00-0.12); Nucleated RBC % (auto) 0.2 %; Platelet Count 231 K/uL (130-400); RDW Coefficient of Variation 19.9 % (11.5-14.5); RDW Standard Deviation 80.3 fL (36.4-46.3); Red Blood Count 2.43 M/uL (4.20-5.40); White Blood Count 11.78 K/ul (4.8-10.8)
[2022-12-31 03:03] LABS: Albumin Level 3.8 gm/dl (3.4-5.0); Bilirubin,Total 1.2 mg/dl (0.2-1.0); Potassium 4.4 mmol/L (3.5-5.1)
--- NOTE | 2022-12-31 03:11 | Emergency Department Note ---
Impression & Plan Hypoxia, Encephalopathy, CHF (congestive heart failure), Hyperglycemia due to type 2 diabetes mellitus Admit to the [facility] ED Provider Note NAME: MARSHA WILDE AGE: 62 SEX: Female INFORMANT: Patient ED PROVIDER(S): Ashtyn Liang DO CHIEF COMPLAINT: Shortness of breath PLAN: Disposition: Admit to the [facility] MEDICAL DECISION MAKING: This is a 62-year-old female patient who presents to the emergency department with moderate shortness of breath. The patient wears 4 L of home oxygen. She was just discharged from rehab yesterday after a long stay after being discharged from the hospital in November for an inpatient stay for encephalopathy. Tonight, the patient had increasing shortness of breath after she awoke from sleep because of her dog in her home oxygen was off. On evaluation he here in the emergency department, patient was noted to have signs of congestive heart failure on chest x-ray. EMS found her home oxygen level to be 67% on room air. Once her supplemental oxygen was replaced, the O2 saturation rebounded to 92%. The patient was significantly hyperglycemic with a BSG of 558. She does admit that when she arrived home from rehab, she ate a peanut butter and marshmallow sandwich and drank 4 bottles of iced tea with sugar. Laboratory studies here revealed mildly elevated white blood cell count 11.7. The patient was anemic with a hemoglobin of 7.8 down from 8.6 during her admission. Troponin was elevated to 51. Other laboratory studies were at her baseline. Chest x-ray showed evidence of congestive heart failure with pleural effusions. Patient was given IV Lasix and IV insulin. At times, the patient became confused and was asking about the a baby in the room. This seems to be consistent with encephalopathy as the patient has had multiple episodes in the past similar to this. [facility] and [facility] will be evaluated for readmission to the hospital. Care/management discussed with: mergers and acquisitions manager as well as the [facility] Triage Nursing notes: reviewed and agree with them. Vital Signs: reviewed and remarkable for hypoxia Additional History obtained from: EMS Chronic Medical/Social Conditions affecting care: Patient lives alone Prior/ Outside/ External records reviewed: Previous admission from December 07 where the patient was admitted for encephalopathy. Differential Diagnosis: Pneumonia, CHF, respiratory failure, hyperglycemia, recurrent encephalopathy Diagnostics, independently interpreted by me: ECG: Normal sinus rhythm at a rate of [address] segment elevation or signs of ischemia. There is no ectopy. Patient has some ST segment depression in the inferior and lateral leads compared to EKG from November. Cardiac Monitoring: Normal sinus rhythm at 93 Imaging studies: As per my independent interpretation, the patient has cardiomegaly with evidence of congestive heart failure HPI: 62 year old Female arrives for evaluation of shortness of breath. Patient was asleep when her dog woke her up and she noted that her oxygen was off and she was gasping for air. She called EMS. Upon their arrival, her O2 saturation was 67% on room air. She was placed back on her usual 4 L of supplemental O2 and it came up to 92%. However, she remained short of breath. The patient was just discharged from rehab yesterday after she had been discharged to there from a prolonged inpatient stay. When the patient arrived home this morning, she ate a peanut butter and marshmallow sandwich and has drank 4 bottles of iced tea which contain a significant amount of sugar. Patient's blood sugar for EMS was 558. PAST MEDICAL HISTORY: See Below, PAST SURGICAL HISTORY: See Below, SOCIAL HISTORY: See Below, HOME MEDICATIONS: See list ALLERGIES: See list VITALS: See Below PHYSICAL EXAMINATION: HEENT: Head - normocephalic and atraumatic. Pupils are equal, round, and reactive to light. Extraocular eye muscles are intact, and sclera are anicteric. Nose - moist nasal mucosa without discharge. Mouth - moist buccal mucosa. Oropharynx is nonerythematous and there is no tonsillar exudate or edema noted. Neck: Supple; no JVD or cervical lymphadenopathy Heart: Regular rate and rhythm. There is a normal S1 and S2 with no murmurs, clicks, or gallops appreciated. Lungs: Diminished breath sounds in all lung denton Abdomen: Soft, completely nontender, nondistended, with good bowel sounds. There are no palpable pulsatile masses or hepatosplenomegaly. There is no guarding, rigidity, or rebound noted. Extremities: Left lower extremity BKA. Right lower extremity 2+ pitting edema Skin: Pale warm and dry with good turgor and no rashes. Emergency department course: The patient was evaluated in room B12. A complete history and physical was performed. Laboratory studies were drawn as above. Portable chest x-ray was performed. An order was placed for continuous cardiac monitoring. The patient was in a normal sinus rhythm at a rate of 93. ED treatment: hall monitor, supplemental oxygen, IV Lasix, IV insulin Emergency department course: The patient was evaluated in room B12. A complete history and physical was performed. Previous electronic medical records were reviewed. Laboratory studies were drawn as above. Portable chest x-ray was performed. An order was placed for continuous cardiac monitoring. The patient was in a normal sinus rhythm at a rate of 93. A twelve-lead EKG was obtained. Patient was given a dose of 10 mg of IV insulin. She was then given a dose of IV Lasix. [facility] and they will evaluate for further inpatient care. CRITICAL CARE: I have personally spent greater than 50 minutes of critical care time in the direct management of this patient. This includes bedside care, interpretation of diagnostic studies, and testing, discussion with consultants, patient, and family members, and other required patient management activities. This 50 minutes is in excess of all separately billable procedures. Past Med/Surg History Medical History (Updated 01/01/23 @ 16:21 by Ashtyn Liang DO) Encephalopathy Acute on chronic respiratory failure with hypoxemia Multifocal pneumonia Pleural effusion Acute respiratory failure with hypoxia Pulmonary edema UTI (urinary tract infection) Right foot pain Fracture of left tibial plateau Acute on chronic HFrEF (heart failure with reduced ejection fraction) DVT prophylaxis HFrEF (heart failure with reduced ejection fraction) Abscess of aorta HTN (hypertension) Encounter for pre-operative examination History of left below knee amputation MRSA bacteremia Osteomyelitis LBBB (left bundle branch block) Carotid stenosis according to records from 2019 CEA was recommended but patient declined. no objective quantification available Tobacco use disorder Carpal tunnel syndrome, left Ulnar neuropathy at elbow of left upper extremity Anxiety Chronic congestive heart failure with left ventricular diastolic dysfunction Psychotic disorder Diabetes mellitus, type 2 Coronary artery disease Surgical History Status post ORIF of fracture of ankle 2016 Status post cholecystectomy Status post hysterectomy Status post coronary artery bypass grafting Family History Other Diabetes Heart disease Social History Smoking Status: Current every day smoker Tobacco Type: Cigarettes packs per day: 1; Cigarettes Per Day: 10; Second Hand Exposure: Yes; Do You Dip or Chew Tobacco: No; Hx Alcohol Use: No Hx Substance Use: No Preferred Language: Chinese Communication Ability: Impaired Infantry Weapons Officer Required: No Beliefs That Will Affect Care: None marital status: Current Living Situation: Other Current Living Situation Comment: UNCERTAIN Feels Safe at Home: Yes Assistive Devices: Oxygen - Continuous Allergies Allergies Allergy/AdvReac Type Severity Reaction Status Date / Time latex Allergy Intermediate Rash Verified 12/31/22 10:27 morphine Allergy Unknown Unknown Unverified 12/31/22 10:27 Home Meds Home Medications Medication Instructions Recorded Confirmed clopidogrel 75 mg tablet 75 mg PO DAILY 03/16/21 12/31/22 nitroglycerin 0.4 mg sublingual 0.4 mg sublingual .PRN/UD PRN 05/14/21 12/31/22 tablet Chest Pain melatonin 5 mg tablet 5 mg PO HS 08/02/22 12/31/22 insulin glargine 100 unit/mL (3 35 unit subcut QAM 10/30/22 12/31/22 mL) subcutaneous pen (Basaglar KwikPen U-100 Insulin) olanzapine 5 mg tablet 5 mg PO HS 11/16/22 12/31/22 pantoprazole 40 mg tablet,delayed 40 mg PO DAILY 11/16/22 12/31/22 release duloxetine 30 mg capsule,delayed 30 mg PO DAILY 12/31/22 12/31/22 release duloxetine 60 mg capsule,delayed 60 mg PO DAILY 12/31/22 12/31/22 release furosemide 40 mg tablet 40 mg PO QAM 12/31/22 12/31/22 isosorbide mononitrate 30 mg 30 mg PO DAILY 12/31/22 12/31/22 tablet,extended release 24 hr lisinopril 5 mg tablet 5 mg PO QAM 12/31/22 12/31/22 metoprolol succinate 100 mg 100 mg PO QAM 12/31/22 12/31/22 tablet,extended release 24 hr metoprolol succinate 50 mg 50 mg PO PM 12/31/22 12/31/22 tablet,extended release 24 hr nicotine 14 mg/24 hr daily 1 patch transdermal QA 12/31/22 12/31/22 transdermal patch ropinirole 1 mg tablet 1 mg PO QPM 12/31/22 12/31/22 topiramate 50 mg tablet (Topamax) 50 mg PO BID 12/31/22 12/31/22 tramadol 50 mg tablet 50 mg PO Q6H PRN Severe Pain 12/31/22 12/31/22 (Scale Score 7-10) Previous Rx's Medication Instructions Recorded gabapentin 400 mg capsule 400 mg PO TID #30 caps 12/07/22 Results & Data (ED) Vital Signs Vital Signs - 24 hr 12/31/22 02:13 12/31/22 02:14 12/31/22 02:14 Pulse Rate 94 H 94 H Pulse Rhythm Regular Pulse Strength Normal Respiratory Rate 18 Respiratory Effort / Characteristics Non-Labored Spontaneous Respiratory Depth Normal Respiratory Pattern Regular Blood Pressure 179/83 H Blood Pressure Mean 115 Blood Pressure Position Lying Pulse Oximetry 92 Oxygen Delivery Method Nasal Cannula Nasal Cannula Oxygen Flow Rate 4 4 Sepsis Recent Fever Within 48 Hours No Sepsis New/Unexplained Change in Mental Status N/A Sepsis Action Taken by Nursing No Action Required 12/31/22 02:48 Pulse Rate Pulse Rhythm Pulse Strength Respiratory Rate Respiratory Effort / Characteristics Respiratory Depth Respiratory Pattern Blood Pressure Blood Pressure Mean Blood Pressure Position Pulse Oximetry 90 Oxygen Delivery Method Nasal Cannula Oxygen Flow Rate 5 Sepsis Recent Fever Within 48 Hours Sepsis New/Unexplained Change in Mental Status Sepsis Action Taken by Nursing Laboratory Data 01/01/23 11:14 01/01/23 11:14 Lab Results 12/31/22 12/31/22 12/31/22 Range/Units 02:19 02:35 03:40 WBC 11.78 H (4.8-10.8) K/ul RBC 2.43 L (4.20-5.40) M/uL Hgb 7.8 L (12.0-16.0) g/dl Hct 26.5 L (37.0-47.0) % MCV 109.1 H (80.0-100.0) fL MCH 32.1 (25.0-34.0) pg MCHC 29.4 L (32.0-36.0) g/dL RDW Std Deviation 80.3 H (36.4-46.3) fL RDW Coeff of Fabio 19.9 H (11.5-14.5) % Plt Count 231 (130-400) K/uL MPV 11.6 (9.4-12.4) fL Immature Gran % (Auto) 1.7 % Neut % (Auto) 69.4 % Lymph % (Auto) 7.6 % [place] % (Auto) 20.8 % Eos % (Auto) 0.3 % Baso % (Auto) 0.2 % Neut # (Auto) 8.19 H (1.40-6.50) K/uL Lymph # (Auto) 0.89 L (1.20-3.40) K/uL [place] # (Auto) 2.45 H (0.11-0.59) K/uL Eos # (Auto) 0.03 (0.00-0.50) K/uL Baso # (Auto) 0.02 (0.00-0.20) K/uL Immature Gran # (Auto) 0.20 (0.01-0.20) K/uL Absolute Nucleated RBC 0.02 (0.00-0.12) K/uL Nucleated RBC % (auto) 0.2 % Polychromasia 1+ Sodium 133 L (136-145) mmol/L Potassium 4.4 (3.5-5.1) mmol/L Chloride 105 (98-107) mmol/L Carbon Dioxide 22 (21-32) mmol/L Anion Gap 6 (3-11) BUN 17 (6-23) mg/dl Creatinine 0.90 (0.6-1.2) mg/dl Est Cr Clr Drug Dosing 58.4 ml/min Est GFR ( Amer) 78.3 ml/min Est GFR (Non-Af Amer) 67.6 ml/min BUN/Creatinine Ratio 18.9 (10-20) Glucose 617 H* (70-99(Fasting)) mg/dl POC Glucose > 600 H* (70-99) mg/dl Osmolality 323 H (280-300) mOsm/kg Calcium 9.0 (8.6-10.3) mg/dl Magnesium 1.9 (1.7-2.4) mg/dl Total Bilirubin 1.2 H (0.2-1.0) mg/dl AST 36 (13-39) U/L ALT 27 (7-52) U/L Alkaline Phosphatase 102 (34-104) U/L Total Protein 7.4 (6.0-8.3) gm/dl Albumin 3.8 (3.4-5.0) gm/dl Globulin 3.6 (2.5-4.0) gm/dl Albumin/Globulin Ratio 1.1 (0.9-2) Urine Color Yellow Urine Appearance Clear (Clear) Urine pH 6.5 (4.5-7.5) Ur Specific [place] 1.026 (1.000-1.030) Urine Protein 2+ H (Negative) Urine Glucose (UA) 3+ H (Negative) Urine Ketones Negative (Negative) Urine Blood Trace H (Negative) Urine Nitrite Negative (Negative) Urine Bilirubin Negative (Negative) Urine Urobilinogen Negative (Negative) Ur Leukocyte Esterase Negative (Negative) Urine WBC (Auto) 1-5 (0-5) /hpf Urine RBC (Auto) 0-4 (0-4) /hpf U Hyaline Cast (Auto) 0 (0-5) /lpf U Epithel Cells (Auto) >30 H (0-5) /lpf Urine Bacteria (Auto) Negative (Negative) Administered Medications Clopidogrel Bisulfate (Clopidogrel Bisulfate 75 Mg Tab) 75 mg PO DAILY SAMANTHA Stop: 01/31/23 08:59 Last Admin: 01/01/23 09:15 Dose: 75 mg Documented By: YESSY Insulin Aspart (Insulin Aspart Per Unit Charge) 0 units SC ACHS SAMANTHA Stop: 01/30/23 11:29 Last Admin: 01/01/23 12:55 Dose: 2 units Documented By: YESSY Co-signed By: RACHEL Admin: 01/01/23 09:14 Dose: 1 units Documented By: YESSY Co-signed By: AGUSTÍN Admin: 12/31/22 22:44 Dose: Not Given Documented By: Admin: 12/31/22 22:10 Dose: 2 units Documented By: AILEEN Co-signed By: MAIDA Admin: 12/31/22 21:37 Dose: 2 units Documented By: AILEEN Co-signed By: MAIDA Insulin Glargine (Lantus Per Unit Charge) 30 units SQ DAILY SAMANTHA Stop: 01/31/23 08:59 Last Admin: 01/01/23 09:14 Dose: 30 units Documented By: YESSY Co-signed By: AGUSTÍN Isosorbide Mononitrate (Isosorbide [place] Extended Rel 30 Mg Tabcr) 30 mg PO DAILY SAMANTHA Stop: 01/31/23 08:59 Last Admin: 01/01/23 09:16 Dose: 30 mg Documented By: YESSY Lisinopril (L[facility]opril 5 Mg Tab) [facility] [place] [facility]: 01/31/23 08:59 Last Admin: 01/01/23 09:58 Dose: 5 mg Documented By: YESSY Metoprolol Succinate (Metoprolol Succ 50mg Ext Rel Tab) 50 mg PO PM SAMANTHA Stop: 01/30/23 21:04 Last Admin: 12/31/22 22:10 Dose: 50 mg Documented By: AILEEN Metoprolol Succinate (Metoprolol Succ 50mg Ext Rel Tab) 100 mg PO QAM [facility] Stop: 01/31/23 08:59 Last Admin: 01/01/23 09:16 Dose: 100 mg Documented By: YESSY Miscellaneous (Remove Nicoderm Patch) 1 each N/A [facility] Stop: 01/31/23 08:59 Last Admin: 01/01/23 09:16 Dose: 1 each Documented By: YESSY Nicotine (Nicotine 14 Mg/24 Hr Patch) 14 mg TD [facility] Stop: 01/31/23 08:59 Last Admin: 01/01/23 09:16 Dose: 14 mg Documented By: YESSY Olanzapine (Olanzapine 5 Mg Tablet) 5 mg PO HS [facility] Stop: 01/30/23 20:59 Last Admin: 12/31/22 22:13 Dose: 5 mg Documented By: AILEEN Pantoprazole Sodium (Pantoprazole 40 Mg Tab) 40 mg PO DAILY [facility] Stop: 01/31/23 08:59 Last Admin: 01/01/23 09:15 Dose: 40 mg Documented By: YESSY Topiramate (Topiramate 50 Mg Tab) 50 mg PO BID SAMANTHA Stop: 01/30/23 21:14 Last Admin: 01/01/23 09:16 Dose: 50 mg Documented By: Admin: 12/31/22 22:11 Dose: 50 mg Documented By: AILEEN Discontinued Medications Furosemide (Furosemide 40 Mg/4 Ml Vial) 40 mg IV ONE ONE Stop: 12/31/22 03:39 Last Admin: 12/31/22 03:49 Dose: 40 mg Documented By: ROSA Furosemide (Furosemide 40 Mg/4 Ml Vial) 40 mg IV ONE ONE Stop: 12/31/22 17:01 Last Admin: 12/31/22 21:33 Dose: 40 mg Documented By: AILEEN Furosemide (Furosemide Inj 20 Mg/2 Ml Vial) Confirm Administered Dose 20 mg IV .STK-MED ONE Stop: 12/31/22 21:26 Last Admin: 12/31/22 22:36 Dose: Not Given Documented By: AILEEN Furosemide (Furosemide 40 Mg/4 Ml Vial) Confirm Administered Dose 40 mg IV .STK- MED ONE Stop: 12/31/22 21:28 Last Admin: 12/31/22 22:37 Dose: Not Given Documented By: AILEEN Magnesium Sulfate/Dextrose (Magnesium Sulfate / D5w) 1 gm in 100 mls @ 50 mls/hr IV ONE STA Stop: 12/31/22 08:18 Last Infusion: 12/31/22 09:07 Dose: Infused Documented By: YESSY(2) Admin: 12/31/22 06:47 Dose: 50 mls/hr Documented By: ROSA Insulin Aspart (Insulin Aspart Per Unit Charge) 0 units SC ONE STA Stop: 12/31/22 06:19 Last Admin: 12/31/22 06:47 Dose: 15 units Documented By: ROSA Co-signed By: Insulin Glargine (Lantus Per Unit Charge) 25 units SQ NOW STA Stop: 12/31/22 06:14 Last Admin: 12/31/22 06:48 Dose: 25 units Documented By: ROSA Co-signed By: Insulin Glargine (Lantus Per Unit Charge) 5 units SQ TODAY@1932 SAMANTHA Stop: 12/31/22 22:30 Last Admin: 12/31/22 22:10 Dose: 5 units Documented By: AILEEN Co-signed By: MAIDA Insulin Human Regular (Novolin-R Insulin Per Unit Charge) 10 units IV NOW STA Stop: 12/31/22 03:34 Last Admin: 12/31/22 03:49 Dose: 10 units Documented By: ROSA Co-signed By: JAIR Ipratropium [place] (Ipratropium [place] Neb Soln 0.02% 2.5 Ml Vial) 0.5 mg INH NOW STA Stop: 12/31/22 05:01 Last Admin: 12/31/22 05:59 Dose: 0.5 mg Documented By: ROSA Levalbuterol HCl (Levalbuterol 1.25 Mg/3 Ml Neb) 1.25 mg NEB NOW STA Stop: 12/31/22 05:01 Last Admin: 12/31/22 05:59 Dose: 1.25 mg Documented By: ROSA Lisinopril (Lisinopril 5 Mg Tab) 5 mg PO NOW STA Stop: 12/31/22 06:49 Last Admin: 12/31/22 07:03 Dose: 5 mg Documented By: ROSA Lisinopril (Lisinopril 5 Mg Tab) 5 mg PO NOW ONE Stop: 12/31/22 19:31 Last Admin: 12/31/22 22:12 Dose: 5 mg Documented By: AILEEN Metoprolol Succinate (Metoprolol Succ 50mg Ext Rel Tab) 50 mg PO NOW STA Stop: 12/31/22 06:45 Last Admin: 12/31/22 08:31 Dose: 50 mg Documented By: YESSY(2) Discharge Plan Visit Data Chief Complaint: Shortness of Breath/Dyspnea ED Provider: Ashtyn Liang Discharge Problem: Hypoxia, Encephalopathy, CHF (congestive heart failure), Hyperglycemia due to type 2 diabetes mellitus Patient Disposition: Admitted As Inpatient Discharge Instructions Interventions: ED Discharge Assessment Last Done: 12/31/22 09:11 Discharge Problem: CHF (congestive heart failure) Qualifiers: Heart failure type: other Qualified Code(s): I50.9 - Heart failure, unspecified Hyperglycemia due to type 2 diabetes mellitus Qualifiers: Diabetes mellitus intermediate designer insulin use: with snf use Qualified Code(s): E11.65 - Type 2 diabetes mellitus with hyperglycemia
[2022-12-31 03:16] LABS: Albumin Globulin Ratio 1.1 (0.9-2); BUN Creatinine Ratio 18.9 (10-20); Creatinine Clr Calc Pharmacy 58.4 ml/min; Est GFR (African American) 78.3 ml/min; Est GFR (Non-African American) 67.6 ml/min; Globulin 3.6 gm/dl (2.5-4.0); Total Protein 7.4 gm/dl (6.0-8.3)
[2022-12-31] MEDS ORDERED: NovoLIN-R INSULIN PER UNIT CHARGE IV STA (03:33)
[2022-12-31 03:38] LABS: Polychromasia 1+
[2022-12-31] MEDS ORDERED: FUROSEMIDE 40 MG/4 ML VIAL IV ONE ×2 (03:38→17:00)
[2022-12-31] MEDS ORDERED: LEVALBUTEROL 1.25 MG/3 ML NEB NEB STA (05:00)
[2022-12-31] MEDS ORDERED: XOPENEX/ATROVENT 1.25mg/0.5MG NEB COMBO NEB STA (05:00)
[2022-12-31] MEDS ORDERED: IPRATROPIUM BROMIDE NEB SOLN 0.02% 2.5 ML VIAL INH STA (05:00)
--- NOTE | 2022-12-31 05:02 | History & Physical Report ---
Date of Service December 31, 2022 Assessment & Plan (1) Encephalopathy: Plan: Likely secondary to medication noncompliance for chronic medical conditions and functional disability given recurrent admissions Multifactorial : acute on chronic hypoxemic respiratory failure secondary to decompensated heart failure, hx diastolic dysfunction Hyperglycemic crisis, DM 2 insulin requiring, suboptimal control as of recent hemoglobin A1c of 9.4 last October 2022 Uncontrolled hypertension home narcotic/neuropsychotropic medications contributory Troponin elevation secondary to CHF, BP elevation CAD status post CABG, PVD valvular heart disease (moderate to severe MR) history mitral valve endocarditis/periaortic abscess as per records chronic LBBB hx COPD on home O2/ISAURA on CPAP hyperlipidemia, on statin Rx acute on chronic anemia, mild hemoglobin drop from baseline, possible bleed, FOBT done at the ER negative mood disorder/paranoia as per records ongoing tobacco abuse PCU Supplemental O2 Baseline ABG Stat nebs Diuretic Rx Strict I/Os, daily weights, CHF education, fluid restriction Cardiology consult if without improvement Retrieve discharge medication list from from [facility] rehab facility Follow troponin, TTE if with significant progression Basal bolus insulin, ISS BG goal 1 10-1 40, carb count coverage Check UA, rule out UTI Recheck H&H, transfuse if PRBC less than 8 given history CAD/PVD PT OT eval once medically stable, patient may need placement Nicotine patch as needed DVT prophylaxis. SCDs for now given possible bleed and hemoglobin drop from baseline Full code Total critical care time was 50 minutes. Patient daughter requesting updates from providers. Ms. Perla Webb, contact #[phone]. Total critical care time was 45 minutes. Text document was generated using Teros voice recognition software. It may contain grammatical or spelling errors. Kindly contact undersigned for clarification of any documentation item in question. History of Present Illness Chief Complaint: Shortness of breath Primary Care Provider: Christiano Simon PA-C History obtained from patient, family, and records. Patient is a fair historian. Medical history significant for chronic diastolic heart failure (EF 55 to 60%, TTE 2022), CAD status post CABG, PVD, valvular heart disease (moderate to severe MR), history mitral valve endocarditis/periaortic abscess as per records, chronic LBBB, chronic respiratory failure secondary to possible COPD as per records on home O2, ISAURA on CPAP, hypertension, hyperlipidemia, DM 2 insulin requiring, GERD, chronic anemia (baseline hemoglobin of 8), mood disorder, paranoia as per records, history of MRSA bacteremia as per records, medical noncompliance as per records, ongoing tobacco abuse. Monthly admissions since July 2022. Last confinement November 16 for encephalopathy secondary to decompensated heart failure requiring intubation. Patient discharged [facility] rehab until discharge home 2 days ago. Patient awakened by her dog at home last night. Shortness of breath on waking up without chest pain, cough, headache, abdominal pain complaints. Bleeding in her private parts as per patient. Patient not sure if bleeding coming from urine or stool. EMS alerted to patient's home. Patient somewhat confused upon EMS arrival. SBP 180s, O2 sats noted to be 60s, BSGs 500s. Patient claims to be compliant with home medications on discharge from rehab facility but unable to name her pills. IV insulin and Lasix administered at the ER Patient currently feeling better. Medical History as above Surgical History : CABG, hysterectomy, cholecystectomy Family History : DM, heart disease, stroke Personal/Social history : 1 pack daily, occasional EtOH intake, lives by self Allergies Allergy/AdvReac Type Severity Reaction Status Date / Time latex Allergy Intermediate Rash Verified 12/31/22 10:27 morphine Allergy Unknown Unknown Unverified 12/31/22 10:27 Home Medications Medication Instructions Recorded Confirmed Type clopidogrel 75 mg tablet 75 mg PO DAILY 03/16/21 12/31/22 History aspirin 81 mg tablet,delayed 81 mg PO DAILY 05/14/21 11/16/22 History release insulin aspart U-100 100 unit/mL 0 unit subcut TID 05/14/21 12/31/22 History (3 mL) subcutaneous pen (Novolog FlexPen U-100 Insulin aspart) nitroglycerin 0.4 mg sublingual 0.4 mg sublingual .PRN/UD PRN 05/14/21 12/31/22 History tablet Chest Pain acetaminophen 500 mg tablet 500 mg PO Q6H PRN Pain 08/23/21 11/16/22 History (Tylenol Extra Strength) cetirizine 10 mg tablet (Zyrtec) 10 mg PO DAILY 08/02/22 11/16/22 History melatonin 5 mg tablet 5 mg PO HS 08/02/22 11/16/22 History insulin glargine 100 unit/mL (3 35 unit subcut QAM 10/30/22 12/31/22 History mL) subcutaneous pen (Basaglar KwikPen U-100 Insulin) ondansetron 4 mg disintegrating 4 mg PO Q8H PRN N/V 11/14/22 12/31/22 History tablet olanzapine 5 mg tablet 5 mg PO HS 11/16/22 12/31/22 History pantoprazole 40 mg tablet,delayed 40 mg PO DAILY 11/16/22 12/31/22 History release gabapentin 400 mg capsule 400 mg PO TID #30 caps 12/07/22 12/31/22 Rx tramadol 50 mg tablet 50 mg PO Q6H PRN severe pain #12 12/07/22 12/31/22 Rx tabs Past Med/Surg History Medical History (Updated 12/31/22 @ 08:42 by Douglas King MD) Encephalopathy Acute on chronic respiratory failure with hypoxemia Multifocal pneumonia Pleural effusion Acute respiratory failure with hypoxia Pulmonary edema UTI (urinary tract infection) Right foot pain Fracture of left tibial plateau Acute on chronic HFrEF (heart failure with reduced ejection fraction) DVT prophylaxis HFrEF (heart failure with reduced ejection fraction) Abscess of aorta HTN (hypertension) Encounter for pre-operative examination History of left below knee amputation MRSA bacteremia Osteomyelitis LBBB (left bundle branch block) Carotid stenosis according to records from 2019 CEA was recommended but patient declined. no objective quantification available Tobacco use disorder Carpal tunnel syndrome, left Ulnar neuropathy at elbow of left upper extremity Anxiety Chronic congestive heart failure with left ventricular diastolic dysfunction Psychotic disorder Diabetes mellitus, type 2 Coronary artery disease Surgical History Status post ORIF of fracture of ankle 2016 Status post cholecystectomy Status post hysterectomy Status post coronary artery bypass grafting Family History Other Diabetes Heart disease Social History Smoking Status: Current every day smoker Tobacco Type: Cigarettes packs per day: 1; Cigarettes Per Day: 10; Second Hand Exposure: Yes; Do You Dip or Chew Tobacco: No; Hx Alcohol Use: No Hx Substance Use: No Preferred Language: Sami Communication Ability: Impaired Velocity Shooter Required: No Beliefs That Will Affect Care: None marital status: Current Living Situation: Other Current Living Situation Comment: UNCERTAIN Feels Safe at Home: Yes Assistive Devices: Oxygen - Continuous Review of Systems Review of Systems: As per HPI, all other systems reviewed and negative Physical Exam Physical Exam: GENERAL: Oriented to place, slightly uncomfortable, no respiratory distress SKIN: Pallor, warm HEENT: Pale palpebral conjunctivae, no ptosis, dry buccal mucosa, nasal cannula in place NECK : Supple, no tenderness CHEST : Decreased breath sounds, no tenderness HEART : RRR, systolic murmur ABDOMEN: Some distention, nontender EXTREMITIES : Minimal LE swelling/tenderness, no other conspicuous deformities noted NEUROLOGIC : Oriented to place, no facial asymmetry, gait and stance not assessed Results & Data Results & Data Vital Signs (Past 12 Hours) Vital Signs Pulse Resp BP Pulse Ox O2 Del Method O2 Flow Rate 12/31/22 02:48 90 Nasal Cannula 5 12/31/22 02:14 Nasal Cannula 4 12/31/22 02:14 94 H 18 179/83 H 92 Nasal Cannula 4 12/31/22 02:13 94 H Laboratory Results Laboratory Results WBC 11.78 K/ul (4.8-10.8) H 12/31/22 02:35 RBC 2.43 M/uL (4.20-5.40) L 12/31/22 02:35 Hgb 7.8 g/dl (12.0-16.0) L 12/31/22 02:35 Hct 26.5 % (37.0-47.0) L 12/31/22 02:35 MCV 109.1 fL (80.0-100.0) H 12/31/22 02:35 MCH 32.1 pg (25.0-34.0) 12/31/22 02:35 MCHC 29.4 g/dL (32.0-36.0) L 12/31/22 02:35 RDW Std Deviation 80.3 fL (36.4-46.3) H 12/31/22 02:35 RDW Coeff of Fabio 19.9 % (11.5-14.5) H 12/31/22 02:35 Plt Count 231 K/uL (130-400) 12/31/22 02:35 MPV 11.6 fL (9.4-12.4) 12/31/22 02:35 Immature Gran % (Auto) 1.7 % 12/31/22 02:35 Neut % (Auto) 69.4 % 12/31/22 02:35 Lymph % (Auto) 7.6 % 12/31/22 02:35 Avery % (Auto) 20.8 % 12/31/22 02:35 Eos % (Auto) 0.3 % 12/31/22 02:35 Baso % (Auto) 0.2 % 12/31/22 02:35 Neut # (Auto) 8.19 K/uL (1.40-6.50) H 12/31/22 02:35 Lymph # (Auto) 0.89 K/uL (1.20-3.40) L 12/31/22 02:35 Avery # (Auto) 2.45 K/uL (0.11-0.59) H 12/31/22 02:35 Eos # (Auto) 0.03 K/uL (0.00-0.50) 12/31/22 02:35 Baso # (Auto) 0.02 K/uL (0.00-0.20) 12/31/22 02:35 Immature Gran # (Auto) 0.20 K/uL (0.01-0.20) 12/31/22 02:35 Absolute Nucleated RBC 0.02 K/uL (0.00-0.12) 12/31/22 02:35 Nucleated RBC % (auto) 0.2 % 12/31/22 02:35 Polychromasia 1+ 12/31/22 02:35 Sodium 133 mmol/L (136-145) L 12/31/22 02:35 Potassium 4.4 mmol/L (3.5-5.1) 12/31/22 02:35 Chloride 105 mmol/L (98-107) 12/31/22 02:35 Carbon Dioxide 22 mmol/L (21-32) 12/31/22 02:35 Anion Gap 6 (3-11) 12/31/22 02:35 BUN 17 mg/dl (6-23) 12/31/22 02:35 Creatinine 0.90 mg/dl (0.6-1.2) 12/31/22 02:35 Est Cr Clr Drug Dosing 58.4 ml/min 12/31/22 02:35 Est GFR ( Amer) 78.3 ml/min 12/31/22 02:35 Est GFR (Non-Af Amer) 67.6 ml/min 12/31/22 02:35 BUN/Creatinine Ratio 18.9 (10-20) 12/31/22 02:35 Glucose 617 mg/dl (70-99(Fasting)) H* 12/31/22 02:35 POC Glucose > 600 mg/dl (70-99) H* 12/31/22 02:19 Calcium 9.0 mg/dl (8.6-10.3) 12/31/22 02:35 Total Bilirubin 1.2 mg/dl (0.2-1.0) H 12/31/22 02:35 AST 36 U/L (13-39) 12/31/22 02:35 ALT 27 U/L (7-52) 12/31/22 02:35 Alkaline Phosphatase 102 U/L (34-104) 12/31/22 02:35 Total Protein 7.4 gm/dl (6.0-8.3) 12/31/22 02:35 Albumin 3.8 gm/dl (3.4-5.0) 12/31/22 02:35 Globulin 3.6 gm/dl (2.5-4.0) 12/31/22 02:35 Albumin/Globulin Ratio 1.1 (0.9-2) 12/31/22 02:35 Diagnostic Findings Chest x-ray as per my interpretation cardiomegaly, congestion, pleural effusions EKG could not be located at time of dictation
[2022-12-31 05:07] LABS: Magnesium 1.9 mg/dl (1.7-2.4)
[2022-12-31] MEDS ORDERED: ACETAMINOPHEN 325 MG TAB PO PRN (05:07)
[2022-12-31] MEDS ORDERED: PROMETHAZINE HCL 6.25 MG in SODIUM CHLORIDE 0.9% 50 ML IV PRN (05:07)
[2022-12-31 05:27] LABS: Appearance Urine Clear (Clear); Bacteria Urine Automated Negative (Negative); Bilirubin Urine Negative (Negative); Blood Urine Trace (Negative); Cast Urine Automated 0 /lpf (0-5); Color Urine Yellow; Epithelial Cell Urine Auto >30 /lpf (0-5); Glucose Urine UA 3+ (Negative); Ketones Urine Negative (Negative); Leukocyte Esterase Urine Negative (Negative); Nitrite Urine Negative (Negative); Protein Urine 2+ (Negative); RBC Urine Automated 0-4 /hpf (0-4); Specific Gravity Urine 1.026 (1.000-1.030); Urobilinogen Urine Negative (Negative); pH Urine 6.5 (4.5-7.5)
[2022-12-31 05:49] LABS: Base Excess ABG -5.1 mEq/L (-9-1.8); HCO3 ABG 20 mmol/L (19-24); Oxygen Saturation ABG 92.8 % (90-95); PCO2 ABG 36 mmHg (35-46); PO2 ABG 63 mmHg (80-95); pH ABG 7.35 (7.35-7.45)
[2022-12-31 05:50] LABS: Hematocrit (blood only) 27.5 % (37.0-47.0); Hemoglobin 8.3 g/dl (12.0-16.0)
[2022-12-31] MEDS ORDERED: CARBOHYDRATES FOR HYPOGLYCEMIA PO PRN (06:13)
[2022-12-31] MEDS ORDERED: GLUCAGON FOR INJ 1 MG VIAL SQ PRN (06:13)
[2022-12-31] MEDS ORDERED: DEXTROSE 50% 50 ML SYRINGE IV PRN (06:13)
[2022-12-31] MEDS ORDERED: GLUCOSE 40% GEL 15 GM TUBE PO PRN (06:13)
[2022-12-31] MEDS ORDERED: GLUCOSE 10 TAB/TUBE PO PRN (06:13)
[2022-12-31] MEDS ORDERED: LANTUS PER UNIT CHARGE SQ STA ×2 (06:13→19:32)
[2022-12-31 06:15] LABS: Influenza A virus by PCR Negative (Neg); Influenza B virus by PCR Negative (Neg); RSV by PCR Negative (Neg); SARS CoV2 RNA(COVID-19) Ceph NEGATIVE (Negative)
[2022-12-31] MEDS ORDERED: INSULIN ASPART PER UNIT CHARGE SC STA (06:18)
[2022-12-31] MEDS ORDERED: MAGNESIUM SULFATE / D5W 1 GM/100 ML BAG IV STA (06:19)
[2022-12-31] MEDS ORDERED: METOPROLOL SUCC 50MG EXT REL TAB PO STA (06:44)
[2022-12-31 06:48] LABS: Allen Test Pos (Pos)
[2022-12-31] MEDS ORDERED: lisinopril 5 MG TAB PO STA (06:48)
--- NOTE | 2022-12-31 07:02 | XRay Report ---
SINGLE VIEW CHEST CLINICAL HISTORY: Dyspnea FINDINGS: An AP, portable, upright chest radiograph is compared to study dated 11/21/2022. The patient is status post midline sternotomy. The heart is enlarged limiting atherosclerotic calcification of t he thoracic aorta. There is pulmonary vascular congestion. Bilateral airspace opacities likely repres ent interstitial edema. There are small pleural effusions with dependent consolidation. No pneumothor ax is seen. The skeletal structures are osteopenic. The bony thorax is grossly intact. IMPRESSION: 1. Cardiomegaly with evidence of congestive failure. 2. Bilateral airspace opacities likely represent pulmonary edema. Correlate clinically for evidence o f a superimposed infectious/inflammatory pneumonitis. Radiographic follow-up to resolution is recomme nded. 3. Small pleural effusions with dependent consolidation. ACT 112: Negative or not required by law. Electronically signed by: Geovani Dumont M.D. 12/31/2022 7:01 AM
[2022-12-31] MEDS ORDERED: Nursing to Pharmacy Communication SCH (09:30)
[2022-12-31] MEDS ORDERED: traMADol HCL 50 MG TABLET PO PRN (14:35)
--- NOTE | 2022-12-31 14:52 | Communication Note ---
Date of Service: December 31, 2022 Pt seen while in the ED, opened her eyes to vocal stimuli and gentle touch but quickly fell asleep again. Oxymask was on her face at that time, was in no acute distress. Spoke to goods layer, they will attempt to get discharge summary from [facility] where pt was discharged 2 days ago. repeat trop ordered for continued trend. Repeat H/H stable. Home zyprexa re-started (noted to be on it as recently as 12/07 per chart review), holding gabapentin.
[2022-12-31] MEDS ORDERED: lisinopril 5 MG TAB PO ONE (19:30)
[2022-12-31] MEDS ORDERED: LANTUS PER UNIT CHARGE SQ SCH (19:32)
[2022-12-31] MEDS ORDERED: GABAPENTIN 400 MG CAP PO SCH (21:00)
[2022-12-31] MEDS ORDERED: FUROSEMIDE INJ 20 MG/2 ML VIAL IV ONE (21:25)
[2022-12-31] MEDS: INSULIN ASPART PER UNIT CHARGE SC SCH ×3 (21:37→22:44)
[2022-12-31] MEDS: METOPROLOL SUCC 50MG EXT REL TAB PO SCH (22:10)
[2022-12-31] MEDS: TOPIRAMATE 50 MG TAB PO SCH (22:11)
[2022-12-31] MEDS: OLANZapine 5 MG TABLET PO SCH (22:13)
[2022-12-31] MEDS: FUROSEMIDE 40 MG/4 ML VIAL IV ONE ×2 (22:14→22:37)
--- OUTSIDE RECORDS SUMMARY | 2023-01-01 08:00 | External Medical Summary | Summary of Care ---
Author Name Unknown Organization [facility] Address [address] [place] [address] Phone [phone] Care Team Providers Care Sql Data Analyst Name Role Phone Christiano Simon PA-C Primary Care Provider + Reason for Visit * Reason Onset Date Comments Appointment 11/09/2022 Encounter Details Date Type Department Care Team Description 11/09/2022 Telephone Cardiology, [facility] [address] [place] [id number] [place], [address] [place] [id number] Appointment Allergies Active Allergy Reactions Severity Noted Date Comments Aspirin High 09/06/2013 Unknown reaction Latex Hives,Rash Medium 09/06/2013 Oxycodone 02/03/2017 Hallucination Oxycodone-Acetaminophen 01/27/2016 Hallucination documented as of this encounter (statuses as of 11/10/2022) Medications Medication Sig Dispensed Refills Start Date End Date Status Aspirin 81 MG Tablet Take 81 mg by mouth daily. 0 Active Multiple Vitamins-Minerals (CENTRUM MULTIGUMMIES) CHEW Take by mouth. 0 Ac tive insulin aspart (NOVOLOG) 100 UNIT/ML injection Inject under the skin. Sliding scale 0 Active atorvaSTATin (LIPITOR) 80 MG Tablet Take by mouth 80 mg daily . 0 Active clopidogrel (PLAVIX) 75 MG Tablet Take 1 Tab by mouth daily. 0 Active furosemide (LASIX) 20 MG Tablet Take by mouth 60 mg daily . 0 06/25/2018 Active lisinopril (PRINIVIL) 10 MG Tablet Take 1 Tab by mouth daily. 0 Active omeprazole (PRILOSEC) 20 MG CPDR Take 1 Cap by mouth daily. 0 Active traMADol (ULTRAM) 50 MG Tablet Take by mouth 50 mg every 6 hours as needed . 0 Active gabapentin (NEURONTIN) 300 MG Capsule Take by mouth 300 mg daily . 0 Active DULoxetine (CYMBALTA) 60 MG CPEP Take by mouth 90 mg daily . 0 Active Donepezil HCl 5 MG Oral Tablet (Aricept) Take 5 mg by mouth daily. Take with largest meal of the day. 0 Active oxygen IN GAS Use as directed 2 L/min(Oxygen) continuous . 0 Active Docusate Sodium 100 MG Oral Capsule (Colace) Take by mouth 100 mg as needed . 0 Active Folic Acid 400 MCG Oral Tablet Take by mouth 400 mcg in the morning. 0 Active Gabapentin 600 MG Oral Tablet (Neurontin) Take by mouth 600 mg before bedtime. 0 Active Magnesium 400 MG Oral Tablet Take by mouth 1 Tablet daily . 0 Active Metoprolol Succinate ER 50 MG Oral Tablet Extended Release 24 Hour (toPROL XL) 100mg in the morning and 50mg at bedtime 0 Active Polyethylene Glycol 3350 17 GM/SCOOP Oral Powder (MiraLax) Take by mouth 17 g as needed . 0 Active Acetaminophen 325 MG Oral Tablet (Tylenol) Take by mouth 650 mg every 6 hours as needed . 0 Active Basaglar KwikPen 100 UNIT/ML Subcutaneous Solution Pen-injector (Insulin Glargine) Inject under the skin 35 Units in the morning. 3 Each 1 08/12/2021 Active Potassium Chloride ER 20 MEQ Oral Tablet Extended Release Take by mouth 1 Tablet as needed (when directed by cardiology for increased lasix use). 30 Tablet 3 10/07/2021 Active Vitron-C 65-125 MG Oral Tablet (Iron-Vitamin C)Indications:Iron deficiency anemia Take by mouth 1 Tablet in the morning. 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 Overview: Aortic bifurcation Malnutrition of moderate degree 08/01/19 22 MRSA bacteremia 07/30/2021 Non-rheumatic mitral regurgitation 11/15 Coronary atherosclerosis 11/13/2016 Overview: S/p CABG Back pain 11/13/2016 Diabetic neuropathy 11/13/2016 GERD (gastroesophageal reflux disease) 1 Anxiety 11/13/2016 Tobacco use disorder 11/13/2016 HTN (hypertension) 09/23/2016 Diabetes mellitus 09/23/2016 Paranoid 10/14/2015 documented as of this encounter (statuses as of 11/10/2022) Resolved Problems Problem Noted Date Resolved Date Flash pulmonary edema 11/15/2016 11/15/2016 Status post coronary artery bypass graft 017 08/01/2021 Acute respiratory failure with hypoxia 7 11/15/2016 Community acquired pneumonia 11/13/2016 documented as of this encounter (statuses as of 11/10/2022) Immunizations No known immunizationsdocumented as of this encounter Social History Tobacco Use Types Packs/Day Years Used Date Smoking Tobacco: Former Cigarettes 1 30 Q uit: 11/13/2016 Smokeless Tobacco: Never Alcohol Use Standard Drinks/Week Comments No 0 (1 standard drink = 0.6 oz pur e alcohol) once a year Sex Assigned at Date Recorded Not on file Job Start Date Occupation Industry Not on file Not on file Not on file documented as of this encounter Functional Status Functional Status Response Date of Assess ment Are you deaf or do you have serious difficulty h earing? No 07/30/2021 Are you blind or do you have serious difficulty seeing, even when wearing glasses? Yes 07/30/2021 Do you have serious difficul ty walking or climbing stairs? (5 years old or older) Yes 07/30/2021 Do you have difficulty dress ing or bathing? (5 years old or older) Yes 07/30/2021 Because of a physical, menta l, or emotional condition, do you have difficulty doing errands alone such as visiting a doctor s office or shopping? (15 years old or older) Yes 07/31/19 22 Cognitive Status Response Date of Assessm ent Because of a physical, menta l, or emotional condition, do you have serious difficulty concentrating, remembering, or making decisions? (5 years old or older Yes 07/30/2021 documented as of this encounter Miscellaneous Notes * Telephone Encounter - ISAURA Henderson - 11/10/2022 8:23 AM EDT HD scheduled for 11/[address] Fuller. * Telephone Encounter - Casa Fuller DO - 11/09/2022 6:51 PM EDT Please arrange for post hospital follow up in 2-[address] Fuller or AP. Casa Fuller DO documented in this encounter Plan of Treatment Upcoming Encounters Date Type Specialty Care Team Description 11/25/2022 Office Visit Cardiology Casa Fuller DO [address] [place] [id number] Health Maintenance Due Date Last Done Comments COVID-19 Vaccine (#1) 01/13/1961 Pneumococcal Vaccine: Pediatrics (0 to 5 Years) and At-Risk Patients (6 to 64 Years) (1 - PCV) 1964 Depression Screening 1970 HIV Screening 1973 Albumin/Creatinine Ratio 1976 DIABETES-EYE EXAM 1976 Diabetic Foot Exam 1976 Hepatitis C Screening 1976 DTaP,Tdap,and Td Vaccines (1 - Tdap) 1977 Mammogram 1998 Cologuard 07/15/2003 Colonoscopy 07/15/2003 Colorectal Cancer Screening 07/15/2003 Fecal Occult Blood Test 07/15/2003 Sigmoidoscopy 07/15/2003 Zoster Vaccines (1 of 2) 2008 HbA1c 01/30/2022 07/31/2021, 11/0 02/2020, 11/19/2020, Additional history exists Influenza Vaccine (FLU shot) (#1) 2022 GFR 12/02/2022 12/02/2021, 09/14, 09/20/2021, Additional history exists LUNG CANCER SCREENING - USE SMARTSET 65115 Completed 07/30/2021 GARDASIL-HPV IMMUNIZATION SERIES Aged Out No longer eligible based on patient's age to complete this topic Hepatitis B Aged Out No longer eligi ble based on patient's age to complete this topic MENINGOCOCCAL (MENACTRA/MENVEO) Aged Out No longer eligible based on patient's age to complete this topic documented as of this encounter Medical Devices Not on filedocumented as of this encounter Advance Directives Latest Code Status on File Code Status Date Activated Date Inactivated Comments Full Code 07/30/2021 4:04 PM 08/12/2021 3:10 PM This order reflects the patients wishes and were consensually agreed upon. Code Status History Code Status Date Activated Date Inactivated Comments Full Code 11/12/2016 9:44 PM 11/15/2016 7:14 PM This order reflects the patients wishes and were consensually agreed upon. Question Answer Comments Discussion of Advance Directives occurred with: Not Discussed Does the patient have a Living Will? No Does the patient have Health Care Power of Production Statistical Clerk? No Care Teams Sql Data Analyst Relationship Specialty Start Date End Date Christiano Simon PA-C [address] [facility] [address] [place] [address] PCP - General Physician Manager Furniture 11/13/16 documented as of this encounter
--- OUTSIDE RECORDS SUMMARY | 2023-01-01 08:00 | External Medical Summary | Summary of Care ---
Author Name Unknown Organization [facility] Address [address] [place] [address] Phone [phone] Care Team Providers Care Thread Spooler Name Role Phone Christiano Simon PA-C Primary Care Provider + Encounter Details Date Type Department Care Team Description 11/04/2022 Result Scan Unspecified Department Mary Ellen Ortiz CRNP [address] [place] [address] <No scans attached> Allergies Active Allergy Reactions Severity Noted Date Comments Aspirin High 09/06/2013 Unknown reaction Latex Hives,Rash Medium 09/06/2013 Oxycodone 02/03/2017 Hallucination Oxycodone-Acetaminophen 01/27/2016 Hallucination documented as of this encounter (statuses as of 11/07/2022) Medications Medication Sig Dispensed Refills Start Date [...] as of this encounter (statuses as of 11/07/2022) Active Problems Problem Noted Date 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 Overview: MRSA (Vancomycin ELI 2 mcg/ml) 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 Overview: Aortic bifurcation Malnutrition of moderate degree 08/01/19 MRSA bacteremia 07/30/2021 Non-rheumatic mitral regurgitation 11/15 Coronary atherosclerosis 11/13/2016 Overview: S/p CABG Back pain 11/13/2016 Diabetic neuropathy 11/13/2016 GERD (gastroesophageal reflux disease) 1 Anxiety 11/13/2016 Tobacco use disorder 11/13/2016 HTN (hypertension) 09/23/2016 Diabetes mellitus 09/23/2016 Paranoid 10/14/2015 documented as of this encounter (statuses as of 11/07/2022) Resolved Problems Problem Noted Date Resolved Date Flash pulmonary edema 11/15/2016 11/15/2016 Status post coronary artery bypass graft 017 08/01/2021 Acute respiratory failure with hypoxia 7 11/15/2016 Community acquired pneumonia 11/13/2016 documented as of this encounter (statuses as of 11/07/2022) Immunizations No known immunizationsdocumented as of this [...] (15 years old or older) Yes 07/31/19 Cognitive Status Response Date of Assessm ent Because of a physical, menta l, or emotional condition, do you have serious difficulty concentrating, remembering, or making decisions? (5 years old or older Yes 07/30/2021 documented as of this encounter Plan of Treatment Health Maintenance Due Date Last Done Comments [...] (FLU shot) (#1) 2022 GFR 12/02/2022 12/02/2021, 08/2 04/2021, 09/20/2021, Additional history exists LUNG CANCER SCREENING - USE SMARTSET 05901 Completed 07/30/2021 GARDASIL-HPV IMMUNIZATION SERIES Aged Out No longer eligible based on patient's age to complete this topic Hepatitis B Aged Out No longer eligi ble based on patient's age to complete this topic MENINGOCOCCAL (MENACTRA/MENVEO) Aged Out No longer eligible based on patient's age to complete this topic documented as of this encounter Medical Devices Not on filedocumented as of this encounter Procedures Procedure Name Priority Date/Time Associated Diagnosis Comments RADIOLOGY SCANNED RESULT 11/04/2022 documented in this encounter Results * RADIOLOGY SCANNED RESULT (11/04/2022) 11/04/2022 [facility] documented in this encounter Advance Directives Latest Code Status [...] the patient have Health Care Power of Corporate Quality Manager? No Care Teams Thread Spooler Relationship Specialty Start Date End Date Christiano Simon PA-C [address] [place] [address] PCP - General Physician Sql Report Developer 11/13/16 documented as of this encounter
--- OUTSIDE RECORDS SUMMARY | 2023-01-01 08:00 | External Medical Summary | Summary of Care ---
Author Name Unknown Organization [facility] Address [address] [place] [address] Phone [phone] Care Team Providers Care Glassworker Name Role Phone Christiano Simon PA-C Primary Care Provider + Reason for Visit * Reason Onset Date Comments Appointment 11/09/2022 Encounter Details Date Type Department Care Team Description 11/09/2022 Telephone Cardiology, [facility] [address] [place] [address] Cas[place] Fuller, [address] [place] [address] Appointment Allergies Active Allergy Reactions Severity Noted Date Comments Aspirin High 09/06/2013 Unknown reaction Latex Hives,Rash Medium 09/06/2013 Oxycodone 02/03/2017 Hallucination Oxycodone-Acetaminophen 01/27/2016 Hallucination documented as of this encounter (statuses as of 11/11/2022) Medications Medication Sig Dispensed Refills Start Date [...] as of this encounter (statuses as of 11/11/2022) Active Problems Problem Noted Date 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 [facility] 08/11/2021 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 Overview: [...] as of this encounter (statuses as of 11/11/2022) Resolved Problems Problem Noted Date Resolved Date Flash pulmonary edema 11/15/2016 11/15/2016 Status post coronary artery bypass graft 017 08/01/2021 Acute respiratory failure with hypoxia 7 11/15/2016 Community acquired pneumonia 11/13/2016 documented as of this encounter (statuses as of 11/11/2022) Immunizations No known immunizationsdocumented as of this [...] Fuller DO [address] [place] [address] Health Maintenance Due Date Last Done Comments [...] exists LUNG CANCER SCREENING - USE SMARTSET 30055 Completed 07/30/2021 GARDASIL-HPV IMMUNIZATION SERIES Aged Out [...] the patient have Health Care Power of Sidehand? No Care Teams Glassworker Relationship Specialty Start Date End Date Christiano Simon PA-C 1 [facility] [address] [place] [address] PCP - General Physician Roll Trucker 11/13/16 documented as of this encounter
--- OUTSIDE RECORDS SUMMARY | 2023-01-01 08:01 | External Medical Summary | Summary of Care ---
Author Name Unknown Organization [facility] Address [address] [place] [address] Phone [phone] Care Team Providers Care Harness Brusher Name Role Phone Christiano Simon PA-C Primary Care Provider + Reason for Visit * Reason Onset Date Comments Appointment 10/10/2022 recall Encounter Details Date Type Department Care Team Description 10/10/2022 Telephone Vascular Surg [facility] [address] [place], [place] [phone] Christiano Aquino MD [address] [place] [address] Appointment (recall) Allergies Active Allergy Reactions Severity Noted Date Comments Aspirin High 09/06/2013 Unknown reaction Latex Hives,Rash Medium 09/06/2013 Oxycodone 02/03/2017 Hallucination Oxycodone-Acetaminophen 01/27/2016 Hallucination documented as of this encounter (statuses as of 10/19/2022) Medications Medication Sig Dispensed Refills Start Date [...] as of this encounter (statuses as of 10/19/2022) Active Problems Problem Noted Date Abscess of [...] as of this encounter (statuses as of 10/19/2022) Resolved Problems Problem Noted Date Resolved Date Flash pulmonary edema 11/15/2016 11/15/2016 Status post coronary artery bypass graft 017 08/01/2021 Acute respiratory failure with hypoxia 7 11/15/2016 Community acquired pneumonia 11/13/2016 documented as of this encounter (statuses as of 10/19/2022) Immunizations No known immunizationsdocumented as of this [...] Miscellaneous Notes * Telephone Encounter - ISAURA Ventura - 10/19/2022 9:20 AM EDT Sent letter rrh * Telephone Encounter - ISAURA Ventura - 10/18/2022 4:10 PM EDT Called patient x2 and left message rrh * Telephone Encounter - ISAURA Ventura - 10/12/2022 10:41 AM EDT Called patient and she didn't sound like she was feeling good. I told her I would call her back in a couple of days to schedule. rrh * Telephone Encounter - ISAURA Ventura - 10/10/2022 1:20 PM EDT 1 year with repeat CTA and carotid duplex to be completed at [facility] Patient no showed/cancelled her appt Tried calling and left message to have her rescheduled rrh documented in this encounter Plan of Treatment Health Maintenance Due Date Last Done Comments COVID-19 Vaccine (#1) 01/13/1961 Pneumococcal Vaccine: Pediatrics (0 to 5 Years) and At-Risk Patients (6 to 64 Years) (1 - PCV) 1964 Depression Screening, Annual for Pts 12 and Over 1970 HIV Screening 1973 Albumin/Creatinine Ratio 1976 [...] exists LUNG CANCER SCREENING - USE SMARTSET [id number] Completed 07/30/2021 GARDASIL-HPV IMMUNIZATION SERIES Aged Out [...] the patient have Health Care Power of Metal Solderer? No Care Teams Harness Brusher Relationship Specialty Start Date End Date Christiano Simon PA-C [address] [place] [address] PCP - General Physician Lead Sprinkler 11/13/16 documented as of this encounter
--- OUTSIDE RECORDS SUMMARY | 2023-01-01 08:01 | External Medical Summary | Summary of Care ---
Author Name Unknown Organization [facility] Address [address] [place] [address] Phone [phone] Care Team Providers Care Lotus Notes Administrator Name Role Phone Christiano Simon PA-C Primary Care Provider + Encounter Details Date Type Department Care Team Description 09/12/2022 Orders Only [facility] Department [address] [place] [address] Rohini Hercules CHRA [facility] Other*[id number] Allergies Active Allergy Reactions Severity Noted Date Comments Aspirin High 09/06/2013 Unknown reaction Latex Hives,Rash Medium 09/06/2013 Oxycodone 02/03/2017 Hallucination Oxycodone-Acetaminophen 01/27/2016 Hallucination documented as of this encounter (statuses as of 09/12/2022) Medications Medication Sig Dispensed Refills Start Date [...] as of this encounter (statuses as of 09/12/2022) Active Problems Problem Noted Date Abscess of [...] as of this encounter (statuses as of 09/12/2022) Resolved Problems Problem Noted Date Resolved Date Flash pulmonary edema 11/15/2016 11/15/2016 Status post coronary artery bypass graft 017 08/01/2021 Acute respiratory failure with hypoxia 7 11/15/2016 Community acquired pneumonia 11/13/2016 documented as of this encounter (statuses as of 09/12/2022) Immunizations No known immunizationsdocumented as of this [...] as of this encounter Plan of Treatment Upcoming Encounters Date Type Specialty Care Team Description 09/29/2022 Imaging Radiology 09/29/2022 Imaging Radiology 10/05/2022 Office Visit Vascular Surgery Frantz Grier PA-C [address] [place] [address] Scheduled Orders Name Type Priority Associated Diagnoses Orde r Schedule MYCODE SUBSEQUENT ADULT Lab Routine [facility] Research Other*[id number] Every 6 Months for 2 Occurrences starting 09/12/2022 until 10/02/2023 Health Maintenance Due Date Last Done Comments COVID-19 Vaccine (#1) 01/13/1961 Pneumococcal Vaccine: Pediatrics (0 to 5 Years) and At-Risk Patients (6 to 64 Years) (1 - PCV) 1964 Depression Screening, Annual for Pts 12 and Over 1970 HIV Screening 1973 Albumin/Creatinine Ratio 1976 DIABETES-EYE EXAM 1976 DIABETES-FOOT EXAM 1976 Hepatitis C Screening 1976 DTaP,Tdap,and Td Vaccines (1 - Tdap) 1977 Pap Smear 1988 Mammogram 1998 Cologuard 07/15/2003 Colonoscopy 07/15/2003 Colorectal Cancer Screening 07/15/2003 Fecal Occult Blood Test 07/15/2003 Sigmoidoscopy 07/15/2003 Zoster Vaccines (1 of 2) 2008 HbA1c 01/30/2022 07/31/2021, 11/0 02/2020, 11/19/2020, Additional history exists Influenza Vaccine (FLU shot) (#1) 2022 GFR 12/02/2022 12/02/2021, 08/2 04/2021, 09/20/2021, Additional history exists LUNG CANCER SCREENING - USE SMARTSET [id number] Completed 07/30/2021 GARDASIL-HPV IMMUNIZATION SERIES Aged Out No longer eligible based on patient's age to complete this topic Hepatitis B Aged Out No longer eligi ble based on patient's age to complete this topic MENINGOCOCCAL (MENACTRA/MENVEO) Aged Out No longer eligible based on patient's age to complete this topic documented as of this encounter Medical Devices Not on filedocumented as of this encounter Visit Diagnoses Diagnosis My[facility] Other*[id number] documented in this encounter Advance Directives Latest [...] the patient have Health Care Power of Storm Sash Maker? No Care Teams Lotus Notes Administrator Relationship Specialty Start Date End Date Christiano Simon PA-C 1 [facility] [address] [place] [address] PCP - General Physician Manager Floral 11/13/16 documented as of this encounter
--- OUTSIDE RECORDS SUMMARY | 2023-01-01 08:01 | External Medical Summary | Summary of Care ---
Author Name Unknown Organization [facility] Address [address] [place] [address] Phone [phone] Care Team Providers Care Associate Sales Manager Name Role Phone Christiano Simon PA-C Primary Care Provider + Reason for Visit * Reason Onset Date Comments Appointment 10/10/2022 recall Encounter Details Date Type Department Care Team Description 10/10/2022 Telephone Vascular Surg [facility] [address] [place], [place] [phone] Christiano Aquino MD [address] [place] [address] Appointment (recall) Allergies Active Allergy Reactions Severity Noted Date Comments Aspirin High 09/06/2013 Unknown reaction Latex Hives,Rash Medium 09/06/2013 Oxycodone 02/03/2017 Hallucination Oxycodone-Acetaminophen 01/27/2016 Hallucination documented as of this encounter (statuses as of 10/10/2022) Medications Medication Sig Dispensed Refills Start Date [...] as of this encounter (statuses as of 10/10/2022) Active Problems Problem Noted Date Abscess of [...] as of this encounter (statuses as of 10/10/2022) Resolved Problems Problem Noted Date Resolved Date Flash pulmonary edema 11/15/2016 11/15/2016 Status post coronary artery bypass graft 017 08/01/2021 Acute respiratory failure with hypoxia 7 11/15/2016 Community acquired pneumonia 11/13/2016 documented as of this encounter (statuses as of 10/10/2022) Immunizations No known immunizationsdocumented as of this [...] and carotid duplex to be completed at [facility] Patient no showed/cancelled her appt Tried [...] exists LUNG CANCER SCREENING - USE SMARTSET [id number] Completed 07/30/2021 GARDASIL-HPV IMMUNIZATION SERIES Aged Out [...] the patient have Health Care Power of Biodiesel Technology Manager? No Care Teams Associate Sales Manager Relationship Specialty Start Date End Date Christiano Simon PA-C [address] [address] [place] [address] PCP - General Physician Human Geography Faculty Member 11/13/16 documented as of this encounter
--- OUTSIDE RECORDS SUMMARY | 2023-01-01 08:01 | External Medical Summary | Summary of Care ---
Author Name Unknown Organization [facility] Address [address] [place] [address] Phone [phone] Care Team Providers Care Fruit Farmer Name Role Phone Christiano Simon PA-C Primary Care Provider + Reason for Visit * Reason Onset Date Comments Appointment 10/10/2022 recall Encounter Details Date Type Department Care Team Description 10/10/2022 Telephone Vascular Surg [facility] [address] [place], [place] [phone] Christiano Aquino MD [address] [place] [address] Appointment (recall) Allergies Active Allergy Reactions Severity Noted Date Comments Aspirin High 09/06/2013 Unknown reaction Latex Hives,Rash Medium 09/06/2013 Oxycodone 02/03/2017 Hallucination Oxycodone-Acetaminophen 01/27/2016 Hallucination documented as of this encounter (statuses as of 10/12/2022) Medications Medication Sig Dispensed Refills Start Date [...] as of this encounter (statuses as of 10/12/2022) Active Problems Problem Noted Date Abscess of [...] as of this encounter (statuses as of 10/12/2022) Resolved Problems Problem Noted Date Resolved Date Flash pulmonary edema 11/15/2016 11/15/2016 Status post coronary artery bypass graft 017 08/01/2021 Acute respiratory failure with hypoxia 7 11/15/2016 Community acquired pneumonia 11/13/2016 documented as of this encounter (statuses as of 10/12/2022) Immunizations No known immunizationsdocumented as of this [...] in a couple of days to schedule. [facility] * Telephone Encounter - ISAURA Ventura - 10/10/2022 1:20 PM EDT 1 year with repeat CTA and carotid duplex to be completed at [facility] Patient no showed/cancelled her appt Tried calling and left message to have her rescheduled rr documented in this encounter Plan of Treatment [...] exists LUNG CANCER SCREENING - USE SMARTSET 31574 Completed 07/30/2021 GARDASIL-HPV IMMUNIZATION SERIES Aged Out [...] the patient have Health Care Power of Conche Loader And Unloader? No Care Teams Fruit Farmer Relationship Specialty Start Date End Date Christiano Simon PA-C [address] [address] [place] [address] PCP - General Physician Garnett Mechanic 11/13/16 documented as of this encounter
--- OUTSIDE RECORDS SUMMARY | 2023-01-01 08:01 | External Medical Summary | Summary of Care ---
Author Name Unknown Organization [facility] Address [address] [place] [address] Phone [phone] Care Team Providers Care Plastic Die Maker Apprentice Name Role Phone Christiano Simon PA-C Primary Care Provider + Reason for Visit * Reason Onset Date Comments Appointment 10/10/2022 recall Encounter Details Date Type Department Care Team Description 10/10/2022 Telephone Vascular Surg [facility] [address] [place], [place] [phone] Christiano Aquino MD [address] [place] [address] Appointment (recall) Allergies Active Allergy [...] and carotid duplex to be completed at [facility] Patient no showed/cancelled her appt Tried calling [...] (FLU shot) (#1) 2022 GFR 12/02/2022 12/02/2021, /2 04/2021, 09/20/2021, Additional history exists LUNG CANCER SCREENING - USE SMARTSET [id number] Completed 07/30/2021 GARDASIL-HPV IMMUNIZATION SERIES Aged Out [...] the patient have Health Care Power of Multi Disciplined Language Analyst? No Care Teams Plastic Die Maker Apprentice Relationship Specialty Start Date End Date Christiano Simon PA-C [address] [facility] [address] [place] [address] PCP - General Physician Estate Administrator 11/13/16 documented as of this encounter
--- OUTSIDE RECORDS SUMMARY | 2023-01-01 08:01 | External Medical Summary | Summary of Care ---
Author Name Unknown Organization [facility] Address [address] [place] [address] Phone [phone] Care Team Providers Care Promotion Specialist Name Role Phone Christiano Simon PA-C Primary Care Provider + Encounter Details Date Type Department Care Team Description 08/02/2022 Orders Only Vascular Surg [facility] [address] [place] [address] Casa Neal MD [address] [place], [place] [phone] Allergies Active Allergy Reactions Severity Noted Date Comments Aspirin High 09/06/2013 Unknown reaction Latex Hives,Rash Medium 09/06/2013 Oxycodone 02/03/2017 Hallucination Oxycodone-Acetaminophen 01/27/2016 Hallucination documented as of this encounter (statuses as of 08/04/2022) Medications Medication Sig Dispensed Refills Start Date [...] as of this encounter (statuses as of 08/04/2022) Active Problems Problem Noted Date 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 (15 years old or older) Yes 06/17/20 22 Cognitive Status Response Date of Assessm ent Because of a physical, menta l, or emotional condition, do you have serious difficulty concentrating, remembering, or making decisions? (5 years old or older Yes 07/30/2021 documented as of this encounter Plan of Treatment Upcoming Encounters Date Type Specialty Care Team Description 09/29/2022 Imaging Radiology 09/29/2022 Imaging Radiology 10/05/2022 Office Visit Vascular Surgery Valentin Mcmullen MD [address] [place] [address] Health Maintenance Due Date Last Done Comments [...] Additional history exists Influenza Vaccine (FLU shot) (Season Ended) 2022 GFR 12/02/2022 12/02/2021, 0804/2021, 09/20/2021, Additional history exists LUNG CANCER SCREENING - USE SMARTSET 91545 Completed 07/30/2021 GARDASIL-HPV IMMUNIZATION SERIES Aged Out [...] Name Priority Date/Time Associated Diagnosis Comments RADIOLOGY EXAM - CT (IMAGES ONLY, NO REPORT) Routine 08/02/2022 1:00 PM EDT documented in this encounter Results * RADIOLOGY EXAM - CT (IMAGES ONLY, NO REPORT) (08/02/2022 1:00 PM EDT) 08/02/2022 12:5 7 PM EDT Narrative Scheduling, Silent - 08/04/2022 3:24 PM EDT This is an imaging study not interpreted or resulted by a [facility] or [facility] contracted radiologist. Casa Neal MD RAD CT documented in this encounter Advance Directives Latest [...] the patient have Health Care Power of Management Expert? No Care Teams Promotion Specialist Relationship Specialty Start Date End Date Christiano Simon PA-C 1 [facility] [address] [place] [address] PCP - General Physician Iron Setter 11/13/16 documented as of this encounter
--- OUTSIDE RECORDS SUMMARY | 2023-01-01 08:01 | External Medical Summary | Summary of Care ---
Author Name Unknown Organization [facility] Address [address] [place] [address] Phone [phone] Care Team Providers Care Telephone Order Clerk Name Role Phone Christiano Simon PA-C Primary Care Provider + Reason for Visit * Reason Onset Date Comments Appointment 10/10/2022 recall Encounter Details Date Type Department Care Team Description 10/10/2022 Telephone Vascular Surg [facility] [address] [place], [place] [phone] Christiano Aquino MD [address] [place] [address] Appointment (recall) Allergies Active Allergy [...] and carotid duplex to be completed at [facility] Patient no showed/cancelled her appt Tried [...] exists LUNG CANCER SCREENING - USE SMARTSET [id number] Completed 07/30/2021 GARDASIL-HPV IMMUNIZATION SERIES Aged Out [...] the patient have Health Care Power of Securities Sales Associate? No Care Teams Telephone Order Clerk Relationship Specialty Start Date End Date Christiano Simon PA-C [address] [facility] [address] [place] [address] PCP - General Physician Construction Ironworker 11/13/16 documented as of this encounter
--- OUTSIDE RECORDS SUMMARY | 2023-01-01 08:01 | External Medical Summary | Summary of Care ---
Author Name Unknown Organization [facility] Address [address] [place] [address] Phone [phone] Care Team Providers Care Tank Refinisher Name Role Phone Christiano Simon PA-C Primary Care Provider + Encounter Details Date Type Department Care Team Description 08/02/2022 Hospital Encounter Radiology Film File [address] [place] [address] Arrived Allergies Active Allergy Reactions Severity Noted Date Comments Aspirin High 09/06/2013 Unknown reaction Latex Hives,Rash Medium 09/06/2013 Oxycodone 02/03/2017 Hallucination Oxycodone-Acetaminophen 01/27/2016 Hallucination documented as of this encounter (statuses as of 08/05/2022) Medications Medication Sig Dispensed Refills Start Date [...] as of this encounter (statuses as of 08/05/2022) Active Problems Problem Noted Date 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 [facility] 08/11/2021 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 [...] as of this encounter (statuses as of 08/05/2022) Resolved Problems Problem Noted Date Resolved Date Flash pulmonary edema 11/15/2016 11/15/2016 Status post coronary artery bypass graft 017 08/01/2021 Acute respiratory failure with hypoxia 7 11/15/2016 Community acquired pneumonia 11/13/2016 documented as of this encounter (statuses as of 08/05/2022) Immunizations No known immunizationsdocumented as of this [...] Vascular Surgery Valentin Mcmullen MD [address] [place] [address] Health Maintenance Due Date Last Done Comments [...] shot) (Season Ended) 2022 GFR 12/02/2022 12/02/2021, 082 04/2021, 09/20/2021, Additional history exists LUNG CANCER SCREENING - USE SMARTSET 17645 Completed 07/30/2021 GARDASIL-HPV IMMUNIZATION SERIES Aged Out [...] study not interpreted or resulted by a [facility] or [facility] contracted radiologist. Casa Neal MD RAD CT [...] the patient have Health Care Power of Form Builder Helper? No Care Teams Tank Refinisher Relationship Specialty Start Date End Date Christiano Simon PA-C [address] [facility] [place] [address] PCP - General Physician Medical Office Assistant 11/13/16 documented as of this encounter
--- OUTSIDE RECORDS SUMMARY | 2023-01-01 08:01 | External Medical Summary | Summary of Care ---
Author Name Unknown Organization [facility] Address [address] [place] [address] Phone [phone] Care Team Providers Care Asphalt Paving Machine Operator Name Role Phone Christiano Simon PA-C Primary Care Provider + Reason for Visit * Reason Onset Date Comments Appointment 10/10/2022 recall Encounter Details Date Type Department Care Team Description 10/10/2022 Telephone Vascular Surg [facility] [address] [place], [place] [phone] Christiano Aquino MD [address] [place] [address] Appointment (recall) Allergies Active Allergy Reactions Severity Noted Date Comments Aspirin High 09/06/2013 Unknown reaction Latex Hives,Rash Medium 09/06/2013 Oxycodone 02/03/2017 Hallucination Oxycodone-Acetaminophen 01/27/2016 Hallucination documented as of this encounter (statuses as of 10/18/2022) Medications Medication Sig Dispensed Refills Start Date [...] as of this encounter (statuses as of 10/18/2022) Active Problems Problem Noted Date Abscess of [...] as of this encounter (statuses as of 10/18/2022) Resolved Problems Problem Noted Date Resolved Date Flash pulmonary edema 11/15/2016 11/15/2016 Status post coronary artery bypass graft 017 08/01/2021 Acute respiratory failure with hypoxia 7 11/15/2016 Community acquired pneumonia 11/13/2016 documented as of this encounter (statuses as of 10/18/2022) Immunizations No known immunizationsdocumented as of this [...] and carotid duplex to be completed at [facility] Patient no showed/cancelled her appt Tried [...] exists LUNG CANCER SCREENING - USE SMARTSET [id number] Completed 07/30/2021 GARDASIL-HPV IMMUNIZATION SERIES Aged Out [...] the patient have Health Care Power of Rice Drier? No Care Teams Asphalt Paving Machine Operator Relationship Specialty Start Date End Date Christiano Simon PA-C [address] [place] [address] PCP - General Physician Hearing Aide Technician 11/13/16 documented as of this encounter
[2023-01-01] MEDS ORDERED: LANTUS PER UNIT CHARGE SQ SCH (09:00)
[2023-01-01] MEDS: INSULIN ASPART PER UNIT CHARGE SC SCH ×4 (09:14→20:33)
[2023-01-01] MEDS: LANTUS PER UNIT CHARGE SQ SCH (09:14)
[2023-01-01] MEDS: PANTOprazole 40 MG TAB PO SCH (09:15)
[2023-01-01] MEDS: CLOPIDOGREL BISULFATE 75 MG TAB PO SCH (09:15)
[2023-01-01] MEDS: TOPIRAMATE 50 MG TAB PO SCH ×2 (09:16→20:47)
[2023-01-01] MEDS: METOPROLOL SUCC 50MG EXT REL TAB PO SCH ×2 (09:16→20:47)
[2023-01-01] MEDS: ISOSORBIDE MONO EXTENDED REL 30 MG TABCR PO SCH (09:16)
[2023-01-01] MEDS: NICOTINE 14 MG/24 HR PATCH TD SCH (09:16)
[2023-01-01] MEDS: lisinopril 5 MG TAB PO SCH (09:58)
[2023-01-01 11:41] LABS: Basophils # (auto) 0.03 K/uL (0.00-0.20); Basophils % (auto) 0.3 %; Eosinophils # (auto) 0.05 K/uL (0.00-0.50); Eosinophils % (auto) 0.5 %; Hematocrit (blood only) 28.2 % (37.0-47.0); Hemoglobin 8.5 g/dl (12.0-16.0); Immature Granulocytes # (auto) 0.07 K/uL (0.01-0.20); Immature Granulocytes % (auto) 0.7 %; Lymphocytes # (auto) 1.37 K/uL (1.20-3.40); Lymphocytes % (auto) 13.2 %; Mean Corpuscular Hemoglobin 31.6 pg (25.0-34.0); Mean Corpuscular Hgb Conc 30.1 g/dL (32.0-36.0); Mean Corpuscular Volume 104.8 fL (80.0-100.0); Mean Platelet Volume 11.3 fL (9.4-12.4); Monocytes # (auto) 2.85 K/uL (0.11-0.59); Monocytes % (auto) 27.5 %; Neutrophils # (auto) 5.98 K/uL (1.40-6.50); Neutrophils % (auto) 57.8 %; Platelet Count 237 K/uL (130-400); RDW Coefficient of Variation 19.6 % (11.5-14.5); RDW Standard Deviation 75.6 fL (36.4-46.3); Red Blood Count 2.69 M/uL (4.20-5.40); White Blood Count 10.35 K/ul (4.8-10.8)
[2023-01-01 11:54] LABS: Albumin Level 3.8 gm/dl (3.4-5.0); Bilirubin,Total 1.3 mg/dl (0.2-1.0); Calcium 9.5 mg/dl (8.6-10.3); Creatinine Clr Calc Pharmacy 40.5 ml/min; Est GFR (African American) 91.7 ml/min; Est GFR (Non-African American) 79.1 ml/min; Globulin 3.7 gm/dl (2.5-4.0); Magnesium 2.2 mg/dl (1.7-2.4); Phosphorus 3.1 mg/dl (2.5-4.9); Potassium 3.5 mmol/L (3.5-5.1); Total Protein 7.5 gm/dl (6.0-8.3)
--- NOTE | 2023-01-01 16:44 | Hospitalist Progress Note ---
Date of Service January 01, 2023 Assessment & Plan (1) Encephalopathy: Plan: Medical history significant for chronic diastolic heart failure (EF 55 to 60%, TTE 2022), CAD status post CABG, PVD, valvular heart disease (moderate to severe MR), history mitral valve endocarditis/periaortic abscess as per records, chronic LBBB, chronic respiratory failure secondary to possible COPD as per records on home O2, ISAURA on CPAP, hypertension, hyperlipidemia, DM 2 insulin requiring, GERD, chronic anemia (baseline hemoglobin of 8), mood disorder, paranoia as per records, history of MRSA bacteremia as per records, medical noncompliance as per records, ongoing tobacco abuse. Pt admitted with AMS after being discharged 2 days [employer] from [facility] facility. AMS Encephalopathy Likely secondary to medication noncompliance for chronic medical conditions and functional disability given recurrent admissions Multifactorial home narcotic/neuropsychotropic medications contributory- continue home zyprexa, holding gabapentin acute on chronic hypoxemic respiratory failure secondary to decompensated heart failure hx diastolic dysfunction Trop elevation CAD status post CABG, PVD valvular heart disease (moderate to severe MR) history mitral valve endocarditis/periaortic abscess as per records chronic LBBB Supplemental O2 Baseline ABG nebs Diuretic Rx Strict I/Os, daily weights, CHF education, fluid restriction Troponin elevation secondary to CHF, BP elevation Cardiology consult if without improvement Hyperglycemic crisis DM 2 insulin requiring suboptimal control as of recent hemoglobin A1c of 9.4 last October 2022 Uncontrolled hypertension Stable hx COPD on home O2/ISAURA on CPAP hyperlipidemia on statin Rx acute on chronic anemia mild hemoglobin drop from baseline possible bleed, FOBT done at the ER negative Continue to monitor mood disorder/paranoia as per records ongoing tobacco abuse Stable Nicotine patch as needed Diet: Clear liquid DVT prophylaxis. SCDs for now given possible bleed and hemoglobin drop from baseline Full code Admission and Anticipated Discharge Date Admission Date: December 31, 2022 Subjective Pt seen in the AM. Was awakened and was alert and oriented x 3. Pleasant discussion, notes that her dog saved her life again. Per nursing she was declining bloodwork, but was agreeable at time of the visit. Review of Systems Review of Systems: All systems reviewed & are unremarkable except as noted in Subjective Physical Exam Physical Exam: General: Alert, oriented. No acute distress Skin: No noted rashes or bruises Psych: Appropriate mood and affect Neuro: No gross deficits HEENT: NC/AT Chest: Nontender to palpation. CV: RRR Resp: Breath sounds clear bilaterally, no increased effort of breathing. Abdomen: Soft, nontender, nondistended. Extremities:LLE amputation Results & Data Results & Data Vital Signs (Past 12 Hours) Vital Signs Temp Pulse Pulse Resp BP Pulse Ox Pulse Ox 01/01/23 16:04 36.7 C 72 18 154/78 H 97 01/01/23 15:59 72 01/01/23 11:39 36.5 C 73 18 179/81 H 94 01/01/23 08:00 97 01/01/23 08:00 77 01/01/23 08:00 01/01/23 07:35 36.6 C 84 19 165/53 H 97 O2 Del Method O2 Del Method O2 Flow Rate O2 Flow Rate 01/01/23 16:04 Nasal Cannula 4 01/01/23 15:59 01/01/23 11:39 Nasal Cannula 4 01/01/23 08:00 Nasal Cannula 4 01/01/23 08:00 01/01/23 08:00 Nasal Cannula 4 01/01/23 07:35 Room Air
[2023-01-01] MEDS: rOPINIRole HCL 1 MG TABLET PO SCH (20:48)
[2023-01-01] MEDS: OLANZapine 5 MG TABLET PO SCH (20:48)
[2023-01-02 04:54] LABS: Basophils # (auto) 0.02 K/uL (0.00-0.20); Basophils % (auto) 0.2 %; Eosinophils # (auto) 0.05 K/uL (0.00-0.50); Eosinophils % (auto) 0.6 %; Hemoglobin 8.1 g/dl (12.0-16.0); Immature Granulocytes # (auto) 0.06 K/uL (0.01-0.20); Immature Granulocytes % (auto) 0.7 %; Lymphocytes # (auto) 1.64 K/uL (1.20-3.40); Lymphocytes % (auto) 18.8 %; Mean Corpuscular Hemoglobin 31.5 pg (25.0-34.0); Mean Corpuscular Volume 105.1 fL (80.0-100.0); Mean Platelet Volume 11.2 fL (9.4-12.4); Monocytes # (auto) 2.27 K/uL (0.11-0.59); Neutrophils # (auto) 4.68 K/uL (1.40-6.50); Neutrophils % (auto) 53.7 %; Platelet Count 218 K/uL (130-400); RDW Standard Deviation 73.3 fL (36.4-46.3); Red Blood Count 2.57 M/uL (4.20-5.40); White Blood Count 8.72 K/ul (4.8-10.8)
[2023-01-02 05:08] LABS: Albumin Globulin Ratio 1.1 (0.9-2); Albumin Level 3.6 gm/dl (3.4-5.0); BUN Creatinine Ratio 20.3 (10-20); Bilirubin,Total 0.9 mg/dl (0.2-1.0); Calcium 9.1 mg/dl (8.6-10.3); Creatinine Clr Calc Pharmacy 40.5 ml/min; Est GFR (African American) 91.7 ml/min; Est GFR (Non-African American) 79.1 ml/min; Globulin 3.4 gm/dl (2.5-4.0); Magnesium 2.2 mg/dl (1.7-2.4); Phosphorus 3.2 mg/dl (2.5-4.9); Potassium 3.7 mmol/L (3.5-5.1)
[2023-01-02] MEDS: CLOPIDOGREL BISULFATE 75 MG TAB PO SCH (08:52)
[2023-01-02] MEDS: PANTOprazole 40 MG TAB PO SCH (08:52)
[2023-01-02] MEDS: lisinopril 5 MG TAB PO SCH (08:52)
[2023-01-02] MEDS: METOPROLOL SUCC 50MG EXT REL TAB PO SCH ×2 (08:53→20:22)
[2023-01-02] MEDS: ISOSORBIDE MONO EXTENDED REL 30 MG TABCR PO SCH (08:53)
[2023-01-02] MEDS: TOPIRAMATE 50 MG TAB PO SCH ×2 (08:53→20:21)
[2023-01-02] MEDS: NICOTINE 14 MG/24 HR PATCH TD SCH (08:53)
[2023-01-02] MEDS: LANTUS PER UNIT CHARGE SQ SCH (08:59)
[2023-01-02] MEDS: INSULIN ASPART PER UNIT CHARGE SC SCH ×4 (08:59→20:28)
--- NOTE | 2023-01-02 19:11 | Electrocardiogram Report ---
Test Reason : Blood Pressure : / mmHG Vent. Rate : 094 BPM Atrial Rate : 094 BPM P-R Int : 144 ms QRS Dur : 092 ms QT Int : 394 ms P-R-T Axes : 054 087 023 degrees QTc Int : 492 ms Normal sinus rhythm Nonspecific ST abnormality Prolonged QT When compared with ECG of 25-NOV-2022 06:19, QT has lengthened Confirmed by Jayme Joyner ([id number]) on 01/02/2023 7:10:35 PM Referred By: REFERRED SELF Confirmed By:Jayme Joyner
[2023-01-02] MEDS: rOPINIRole HCL 1 MG TABLET PO SCH (20:21)
[2023-01-02] MEDS: OLANZapine 5 MG TABLET PO SCH (20:21)
[2023-01-02] MEDS ORDERED: ENOXAPARIN INJ 40 MG/0.4 ML SYR SQ SCH (22:00)
--- NOTE | 2023-01-02 22:00 | Hospitalist Progress Note ---
Date of Service January 02, 2023 Assessment & Plan (1) Encephalopathy: Plan: Medical history significant for chronic diastolic heart failure (EF 55 to 60%, TTE 2022), CAD status post CABG, PVD, valvular heart disease (moderate to severe MR), history mitral valve endocarditis/periaortic abscess as per records, chronic LBBB, chronic respiratory failure secondary to possible COPD as per records on home O2, ISAURA on CPAP, hypertension, hyperlipidemia, DM 2 insulin requiring, GERD, chronic anemia (baseline hemoglobin of 8), mood disorder, paranoia as per records, history of MRSA bacteremia as per records, medical noncompliance as per records, ongoing tobacco abuse. Pt admitted with AMS after being discharged 2 days [employer]PUTING [employer]CHIT[employer] from [facility] facility. AMS Encephalopathy Likely secondary to medication noncompliance for chronic medical conditions and functional disability given recurrent admissions Multifactorial home narcotic/neuropsychotropic medications contributory- continue home zyprexa, holding gabapentin acute on chronic hypoxemic respiratory failure secondary to decompensated heart failure hx diastolic dysfunction Trop elevation CAD status post CABG, PVD valvular heart disease (moderate to severe MR) history mitral valve endocarditis/periaortic abscess as per records chronic LBBB Supplemental O2 Baseline ABG nebs Diuretic Rx Strict I/Os, daily weights, CHF education, fluid restriction Troponin elevation secondary to CHF, BP elevation Cardiology consult if without improvement Hyperglycemic crisis DM 2 insulin requiring suboptimal control as of recent hemoglobin A1c of 9.4 last October 2022 Uncontrolled hypertension Stable hx COPD on home O2/ISAURA on CPAP hyperlipidemia on statin Rx acute on chronic anemia mild hemoglobin drop from baseline possible bleed, FOBT done at the ER negative Continue to monitor mood disorder/paranoia as per records ongoing tobacco abuse Stable Nicotine patch as needed Diet: Clear liquid DVT prophylaxis. SCDs switched to Lovenox Full code Admission and Anticipated Discharge Date Admission Date: December 31, 2022 Subjective Pt seen in the AM. Sitting at bedside. Wanted to go home. Per CM, pt's daughter cannot pick her up today, requesting she stay another day. Review of Systems Review of Systems: All systems reviewed & are unremarkable except as noted in Subjective Physical Exam Physical Exam: General: Alert, oriented. No acute distress Skin: No noted rashes or bruises Psych: Appropriate mood and affect Neuro: No gross deficits HEENT: NC/AT Chest: Nontender to palpation. CV: RRR Resp: Breath sounds clear bilaterally, no increased effort of breathing. Abdomen: Soft, nontender, nondistended. Extremities:LLE amputation Results & Data Results & Data Vital Signs (Past 12 Hours) Vital Signs Temp Pulse Pulse Resp BP BP Pulse Ox 01/02/23 19:00 36.8 C 78 20 172/71 H 95 01/02/23 16:26 36.6 C 73 18 155/83 H 96 01/02/23 16:00 83 01/02/23 11:51 36.8 C 65 17 131/65 98 O2 Del Method O2 Flow Rate 01/02/23 19:00 Nasal Cannula 01/02/23 16:26 Nasal Cannula 3 01/02/23 16:00 01/02/23 11:51 Nasal Cannula 3
[2023-01-03 05:55] LABS: Basophils # (auto) 0.03 K/uL (0.00-0.20); Basophils % (auto) 0.4 %; Eosinophils # (auto) 0.06 K/uL (0.00-0.50); Eosinophils % (auto) 0.8 %; Hematocrit (blood only) 27.9 % (37.0-47.0); Hemoglobin 8.5 g/dl (12.0-16.0); Immature Granulocytes # (auto) 0.07 K/uL (0.01-0.20); Immature Granulocytes % (auto) 0.9 %; Lymphocytes # (auto) 2.13 K/uL (1.20-3.40); Lymphocytes % (auto) 27.4 %; Mean Corpuscular Hemoglobin 31.4 pg (25.0-34.0); Mean Corpuscular Hgb Conc 30.5 g/dL (32.0-36.0); Mean Platelet Volume 10.5 fL (9.4-12.4); Monocytes # (auto) 1.98 K/uL (0.11-0.59); Monocytes % (auto) 25.5 %; Neutrophils # (auto) 3.49 K/uL (1.40-6.50); Platelet Count 210 K/uL (130-400); RDW Coefficient of Variation 18.4 % (11.5-14.5); Red Blood Count 2.71 M/uL (4.20-5.40); White Blood Count 7.76 K/ul (4.8-10.8)
[2023-01-03] MEDS ORDERED: NITROGLYCERIN SL 0.4 MG/TAB TAB SL STA (05:59)
--- NOTE | 2023-01-03 06:01 | Communication Note ---
Date of Service: January 03, 2023 Patient transferred out of PCU to [facility] floor in early a.m. to free up PCU beds for ED hold patients. 5:30 AM. Patient complained of chest pain without shortness of breath. SBP 180s. EKG as per them interpretation rate 80s, NSR, normal axis, PVCs, nonspecific T wave abnormalities AP Chest pain Hypertensive crisis Rule out ACS given history CAD Return to PCU Nitro trial A.m. beta-raymond dose early administration now. Check troponin
[2023-01-03] MEDS ORDERED: POTASSIUM CHLORIDE CRTAB 20 MEQ TABCR PO STA (06:07)
[2023-01-03] MEDS: METOPROLOL SUCC 50MG EXT REL TAB PO STA ×2 (06:56→06:59)
[2023-01-03 06:57] LABS: Albumin Level 3.7 gm/dl (3.4-5.0); Bilirubin,Total 0.8 mg/dl (0.2-1.0); Calcium 9.2 mg/dl (8.6-10.3); Potassium 3.7 mmol/L (3.5-5.1)
[2023-01-03 07:03] LABS: Albumin Globulin Ratio 1.1 (0.9-2); BUN Creatinine Ratio 21.1 (10-20); Creatinine Clr Calc Pharmacy 59.7 ml/min; Est GFR (African American) 78.3 ml/min; Est GFR (Non-African American) 67.6 ml/min; Globulin 3.4 gm/dl (2.5-4.0); Phosphorus 3.7 mg/dl (2.5-4.9); Total Protein 7.1 gm/dl (6.0-8.3)
[2023-01-03 07:13] LABS: Partial Thromboplastin Ratio 1.2; Partial Thromboplastin Time 32.7 Seconds (21.0-31.0)
[2023-01-03] MEDS: INSULIN ASPART PER UNIT CHARGE SC SCH ×2 (08:38→13:11)
[2023-01-03] MEDS: LANTUS PER UNIT CHARGE SQ SCH (08:38)
[2023-01-03] MEDS: CLOPIDOGREL BISULFATE 75 MG TAB PO SCH (08:39)
[2023-01-03] MEDS: NICOTINE 14 MG/24 HR PATCH TD SCH (08:39)
[2023-01-03] MEDS: TOPIRAMATE 50 MG TAB PO SCH (08:39)
[2023-01-03] MEDS: ISOSORBIDE MONO EXTENDED REL 30 MG TABCR PO SCH (08:40)
[2023-01-03] MEDS: PANTOprazole 40 MG TAB PO SCH (08:40)
[2023-01-03] MEDS: lisinopril 5 MG TAB PO SCH (08:40)
--- NOTE | 2023-01-03 11:18 | Discharge Summary ---
Discharge Summary Date of Service January 03, 2023 Notes For Next Care Provider Encouraging medication compliance to use medications as prescribed, home oxygen use as prescribed. Home gabapentin was held while hospitalized but resumed on discharge. Will need wean to discontinue use completely. Less likely cause of altered mental status but consider polypharmacy with patient's current medication list and consider further adjustments. PCP followup for possible rectal bleed per pt- FOBT negative, hgb stable and at baseline Medication Changes From Visit None- home gabapentin was held while hospitalized but resumed on discharge. Will need wean to discontinue use. Less likely cause of altered mental status but consider polypharmacy with patient's current medication list and consider further adjustments. Admission HPI Per Admitting Provider History obtained from patient, family, and records. Patient is a fair historian. Medical history significant for chronic diastolic heart failure (EF 55 to 60%, TTE 2022), CAD status post CABG, PVD, valvular heart disease (moderate to severe MR), history mitral valve endocarditis/periaortic abscess as per records, chronic LBBB, chronic respiratory failure secondary to possible COPD as per records on home O2, ISAURA on CPAP, hypertension, hyperlipidemia, DM 2 insulin requiring, GERD, chronic anemia (baseline hemoglobin of 8), mood disorder, paranoia as per records, history of MRSA bacteremia as per records, medical noncompliance as per records, ongoing tobacco abuse. Monthly admissions since July 2022. Last confinement November 16 to for encephalopathy secondary to decompensated heart failure requiring intubation. Patient discharged [facility] until discharge home 2 days ago. Patient awakened by her dog at home last night. Shortness of breath on waking up without chest pain, cough, headache, abdominal pain complaints. Bleeding in her private parts as per patient. Patient not sure if bleeding coming from urine or stool. EMS alerted to patient's home. Patient somewhat confused upon EMS arrival. SBP 180s, O2 sats noted to be 60s, BSGs 500s. Patient claims to be compliant with home medications on discharge from rehab facility but unable to name her pills. IV insulin and Lasix administered at the ER Patient currently feeling better. Medical History as above Surgical History : CABG, hysterectomy, cholecystectomy Family History : DM, heart disease, stroke Personal/Social history : 1 pack daily, occasional EtOH intake, lives by self Admission Exam Per Admitting Provider GENERAL: Oriented to place, slightly uncomfortable, no respiratory distress SKIN: Pallor, warm HEENT: Pale palpebral conjunctivae, no ptosis, dry buccal mucosa, nasal cannula in place NECK : Supple, no tenderness CHEST : Decreased breath sounds, no tenderness HEART : RRR, systolic murmur ABDOMEN: Some distention, nontender EXTREMITIES : Minimal LE swelling/tenderness, no other conspicuous deformities noted NEUROLOGIC : Oriented to place, no facial asymmetry, gait and stance not assessed Principal Dx & Hospital Course #1 = Principal Diagnosis (1) Encephalopathy: Medical history significant for chronic diastolic heart failure (EF 55 to 60%, TTE 2022), CAD status post CABG, PVD, valvular heart disease (moderate to severe MR), history mitral valve endocarditis/periaortic abscess as per records, chronic LBBB, chronic respiratory failure secondary to possible COPD as per records on home O2, ISAURA on CPAP, hypertension, hyperlipidemia, DM 2 insulin requiring, GERD, chronic anemia (baseline hemoglobin of 8), mood disorder, paranoia as per records, history of MRSA bacteremia as per records, medical noncompliance as per records, ongoing tobacco abuse. Pt admitted with AMS after being discharged 2 days prior to arrival from [facility] facility. AMS Encephalopathy Likely secondary to medication noncompliance for chronic medical conditions and functional disability given recurrent admissions Multifactorial Home narcotic/neuropsychotropic medications contributory- continue home zyprexa, holding gabapentin Home gabapentin was held while hospitalized but resumed on discharge. Will need wean to discontinue use completely. Less likely cause of altered mental status but consider polypharmacy with patient's current medication list and consider further adjustments. acute on chronic hypoxemic respiratory failure secondary to decompensated heart failure hx diastolic dysfunction Trop elevation CAD status post CABG, PVD valvular heart disease (moderate to severe MR) history mitral valve endocarditis/periaortic abscess as per records chronic LBBB Supplemental O2 Baseline ABG nebs Diuretic Rx Strict I/Os, daily weights, CHF education, fluid restriction Troponin elevation secondary to CHF- flattened Chest pain night before discharge but troponin not elevated beyond baseline, EKG with no acute changes. Chest pain resolved on discharge. Hyperglycemic crisis DM 2 insulin requiring suboptimal control as of recent hemoglobin A1c of 9.4 last October 2022 Resume home medications PCP follow up Hypertension Stable Continue home medications PCP follow up hx COPD on home O2/ISAURA on CPAP hyperlipidemia on statin Rx acute on chronic anemia mild hemoglobin drop from baseline Pt states she might be having rectal bleeding FOBT done at the ER negative Hgb stable and at baseline Continue to monitor- PCP follow up mood disorder/paranoia Stable ongoing tobacco abuse Stable Nicotine patch as needed Encourage cessation Discharge Exam General: Alert, oriented. No acute distress Skin: No noted rashes or bruises Psych: Appropriate mood and affect Neuro: No gross deficits HEENT: NC/AT Chest: Nontender to palpation. CV: RRR Resp: Breath sounds clear bilaterally, no increased effort of breathing. Abdomen: Soft, nontender, nondistended. Extremities:LLE amputation Updated Medication List Medication Instructions Recorded Confirmed Type clopidogrel 75 mg tablet 75 mg PO DAILY 03/16/21 12/31/22 History nitroglycerin 0.4 mg sublingual 0.4 mg sublingual .PRN/UD PRN 05/14/21 12/31/22 History tablet Chest Pain melatonin 5 mg tablet 5 mg PO HS 08/02/22 12/31/22 History insulin glargine 100 unit/mL (3 35 unit subcut QAM 10/30/22 12/31/22 History mL) subcutaneous pen ([employer] OptiWi-fi[employer]Pen U-100 Insulin) olanzapine 5 mg tablet 5 mg PO HS 11/16/22 12/31/22 History pantoprazole 40 mg tablet,delayed 40 mg PO DAILY 11/16/22 12/31/22 History release gabapentin 400 mg capsule 400 mg PO TID #30 caps 12/07/22 12/31/22 Rx duloxetine 30 mg capsule,delayed 30 mg PO DAILY 12/31/22 12/31/22 History release duloxetine 60 mg capsule,delayed 60 mg PO DAILY 12/31/22 12/31/22 History release furosemide 40 mg tablet 40 mg PO QAM 12/31/22 12/31/22 History isosorbide mononitrate 30 mg 30 mg PO DAILY 12/31/22 12/31/22 History tablet,extended release 24 hr lisinopril 5 mg tablet 5 mg PO QAM 12/31/22 12/31/22 History metoprolol succinate 100 mg 100 mg PO QAM 12/31/22 12/31/22 History tablet,extended release 24 hr metoprolol succinate 50 mg 50 mg PO PM 12/31/22 12/31/22 History tablet,extended release 24 hr nicotine 14 mg/24 hr daily 1 patch transdermal QA 12/31/22 12/31/22 History transdermal patch ropinirole 1 mg tablet 1 mg PO QPM 12/31/22 12/31/22 History topiramate 50 mg tablet (Topamax) 50 mg PO BID 12/31/22 12/31/22 History tramadol 50 mg tablet 50 mg PO Q6H PRN Severe Pain 12/31/22 12/31/22 History (Scale Score 7-10) Hospital Stay Data Consultations 12/31/22 03:39 ED Decision to Admit Stat 12/31/22 04:57 HIM [Consult Health Information Management] Stat Diagnostic Imagining Performed Chest X-Ray 12/31/22 02:48 SINGLE VIEW CHEST CLINICAL HISTORY: Dyspnea FINDINGS: An AP, portable, upright chest radiograph is compared to study dated 11/21/2022. The patient is status post midline sternotomy. The heart is enlarged limiting atherosclerotic calcification of the thoracic aorta. There is pulmonary vascular congestion. Bilateral airspace opacities likely represent interstitial edema. There are small pleural effusions with dependent consolidation. No pneumothorax is seen. The skeletal structures are osteopenic. The bony thorax is grossly intact. IMPRESSION: 1. Cardiomegaly with evidence of congestive failure. 2. Bilateral airspace opacities likely represent pulmonary edema. Correlate clinically for evidence of a superimposed infectious/inflammatory pneumonitis. Radiographic follow-up to resolution is recommended. 3. Small pleural effusions with dependent consolidation. ACT 112: Negative or not required by law. Electronically signed by: Geovani Dumont M.D. 12/31/2022 7:01 AM Pending Results Patient Have Any Pending Studies at Discharge: No Discharge Instructions Given to Patient (Per Discharging Provider) Ms. Welch, You were admitted this time with confusion. Your confusion has resolved and it appears that you are now at your baseline. Please take your medications as prescribed. We advise that you ask or look into help at home so someone can help you with your medications. Since you no longer have insurance we are unable to send you home with home health services. You also reported some trouble breathing. You remained stable during this stay. We recommend continuing with your home oxygen for use. Please also keep close follow up with your primary care provider. Take care of yourself. It was a pleasure taking care of you while you were here. Total Time Total Time Spent Total Time Spent (In Minutes): > 30 minutes
[2023-01-04] MEDS ORDERED: METOPROLOL SUCC 50MG EXT REL TAB PO SCH (09:00)
--- NOTE | 2023-01-05 06:19 | Electrocardiogram Report ---
Test Reason : Blood Pressure : / mmHG Vent. Rate : 082 BPM Atrial Rate : 082 BPM P-R Int : 144 ms QRS Dur : 084 ms QT Int : 380 ms P-R-T Axes : 067 081 011 degrees QTc Int : 443 ms Poor data quality, interpretation may be adversely affected Sinus rhythm with occasional Premature ventricular complexes Nonspecific ST and T wave abnormality Abnormal ECG When compared with ECG of 31-DEC-2022 02:16, Premature ventricular complexes are now Present T wave inversion now evident in Anterior leads Confirmed by Jayme Joyner ([id number]) on 01/05/2023 6:18:42 AM Referred By: REFERRED SELF Confirmed By:Jayme Joyner
== END 2023-01-03 15:20 | disposition home or self-care (01) | DRG 291 ==
LOC: ED 02:08 → EDINP 05:03 → 4W 20:21 → 3N 01-03 05:11 → 4W 01-03 06:30

== ENCOUNTER 2023-02-25 20:33 | Inpatient (IN) ==
[2023-02-25] MEDS ORDERED: ALBUT/IPRATROP 3MG/0.5MG NEB 3 ML VIAL NEB STA (21:02)
--- NOTE | 2023-02-25 21:05 | Emergency Department Note ---
Impression & Plan Acute and chronic respiratory failure with hypoxia, COPD (chronic obstructive pulmonary disease), CHF (congestive heart failure), Non-ST elevation myocardial infarction (NSTEMI) ED Provider Note NAME: MARSHA WILDE AGE: 62 SEX: F ARRIVES VIA: Ambulance INFORMANT: Patient ED PROVIDER(S): Wilbur Pathak MD CHIEF COMPLAINT: Shortness of breath PLAN: Disposition: Admit MEDICAL DECISION MAKING: The patient is a 62-year-old woman with a past medical history of chronic respiratory failure on 4 L nasal cannula, history ischemic cardiomyopathy, CAD status post CABG, history of subacute bacterial endocarditis, hypertension, hyperlipidemia, COPD, history of medical non-compliance who presents to the emergency department via EMS for acute on chronic respiratory failure where she reports having increased cough congestion and thick sputum production over the past couple of days but then reported an acute worsening of her shortness of breath tonight which did not catch her breath was found to be hypoxic on her home 4 L nasal cannula to 81% by EMS. She was given nebulizer treatment, steroids. On arrival to emergency department she was placed on Ventimask and O2 saturation was able to improve to the upper 80s/low 90s. She continued to have increased work of breathing with rales and rhonchi bilateral lower lung denton. She has 1+ pitting edema of the right lower extremity. Left BKA is present. EKG demonstrates left bundle branch block at 108 bpm, no Sgarbossa criteria, QTc 511, QRS 146. Chest x-ray demonstrates vascular congestion, bilateral layering pleural effusions and bibasilar consolidation. WBC and platelets within normal limits. H/H similar to an improved from prior values. VBG is unremarkable. Chemistry without metabolic acidosis. Lactic acid 1.8, within normal limits. Procalcitonin is undetectable. LFTs unremarkable. Initial positive troponin is 1100, increased from prior values and suggestive of NE. BNP 700, similar to prior values in setting history ischemic cardiomyopathy. Patient was treated with DuoNeb via BiPAP and had some improvement in work of breathing but seem to be continually restless not tolerating BiPAP and insisted this be removed and so was placed back on Ventimask. The patient initially denied chest pain however then did admit that she had "discomfort" in her substernal and left lower chest area. Given her left bundle branch block (albeit with a history of intermittent left bundle branch block) but combined with chest pain and newly elevated troponin there is concern for NSTEMI/unstable angina. I did review the patient's presentation with Dr. Petit, interventional cardiology. Appreciate consultation and recommendations and agrees that symptoms are likely related to acute CHF would treat for NSTEMI with anticoagulation at this time. No indication to take the patient to the [facility] at this time. Otherwise, given the patient's report of increased sputum production over the past couple of days empiric antibiotics initiated with cefepime and doxycycline at this time. Patient did receive 324 mg of aspirin and sublingual nitro and reported improvement in her chest discomfort. Nitropaste ordered for afterload reduction. Case was discussed with Dr. King, [facility] who will evaluate the patient for admission. Further management per admitting team. Triage Nursing notes reviewed and agree them. Prior/external medical records reviewed Vital Signs: reviewed Differential diagnosis: Reactive airway disease, pneumonia, pneumothorax, COPD, CHF, infections, cardiac ischemia, pulmonary embolism, musculoskeletal, gastrointestinal, as well as other pathologies. ER treatment provided: See below. Diagnostics interpreted by me: ECG: Sinus tachycardia Left bundle branch block 108 bpm, no Sgarbossa criteria, QTc 511, QRS 146. Cardiac Monitoring: An order for continuous cardiac monitoring was placed and demonstrated sinus tachycardia, 108 bpm, no ectopy, left bundle branch block Laboratory studies: See below Imaging studies: See below Consultation(s): Dr. Petit, interventional cardiology. Dr. King, [facility]. HPI: The patient is a 62-year-old woman with a past medical history of chronic respiratory failure on 4 L nasal cannula, history ischemic cardiomyopathy, CAD status post CABG, history of subacute bacterial endocarditis, hypertension, hyperlipidemia, COPD, history of medical non-compliance who presents to the emergency department via EMS for acute on chronic respiratory failure where she reports having increased cough congestion and thick sputum production over the past couple of days but then reported an acute worsening of her shortness of breath tonight which did not catch her breath was found to be hypoxic on her home 4 L nasal cannula to 81% by EMS. She was given nebulizer treatment, steroids. ROS: See above HPI for pertinent positives & negatives. A total of 10 systems reviewed and were otherwise negative. VITALS:See Below PHYSICAL EXAMINATION: GENERAL: Awake, alert, ill-appearing, in moderate respiratory distress HENT: Normocephalic, atraumatic. Oropharynx unremarkable. EYES: Normal conjunctiva. Sclera non-icteric. NECK: Supple. No nuchal rigidity. FROM. No JVD. RESPIRATORY: Increased work of breathing with rales and rhonchi bilateral lower lung denton. CARDIAC: Tachycardic rate, normal rhythm. Extremities warm and well perfused. Pulses equal. ABDOMEN: Soft, non-distended. No tenderness to palpation. No rebound or guarding. No masses. RECTAL: Deferred. MUSCULOSKELETAL: Chest examination reveals no tenderness. The back is symmetrical on inspection without obvious abnormality. There is no CVA tenderness to palpation. LOWER EXTREMITIES:1+ pitting edema of the right lower extremity. Left BKA is present. No discoloration. NEURO: Normal sensorium. No sensory or motor deficits noted. SKIN: No rash or jaundice noted. ED COURSE: Critical Care: I have personally spent greater than 65 minutes of critical care time in the direct management of this patient. This includes bedside care, interpretation of diagnostic studies, and testing, discussion with consultants, patient, and family members, and other required patient management activities. This 65 minutes is in excess of all separately billable procedures. Wilbur Pathak MD Past Med/Surg History Medical History Encephalopathy Acute on chronic respiratory failure with hypoxemia Multifocal pneumonia Pleural effusion Acute respiratory failure with hypoxia Pulmonary edema UTI (urinary tract infection) Right foot pain Fracture of left tibial plateau Acute on chronic HFrEF (heart failure with reduced ejection fraction) DVT prophylaxis HFrEF (heart failure with reduced ejection fraction) Abscess of aorta HTN (hypertension) Encounter for pre-operative examination History of left below knee amputation MRSA bacteremia Osteomyelitis LBBB (left bundle branch block) Carotid stenosis according to records from 2019 CEA was recommended but patient declined. no objective quantification available Tobacco use disorder Carpal tunnel syndrome, left Ulnar neuropathy at elbow of left upper extremity Anxiety Chronic congestive heart failure with left ventricular diastolic dysfunction Psychotic disorder Diabetes mellitus, type 2 Coronary artery disease Surgical History Status post ORIF of fracture of ankle R, 2017 Status post cholecystectomy Status post hysterectomy Status post coronary artery bypass grafting Family History Other Diabetes Heart disease Social History Smoking Status: Current every day smoker Tobacco Type: Cigarettes packs per day: 1; Cigarettes Per Day: 10; Second Hand Exposure: Yes; Do You Dip or Chew Tobacco: No; Hx Alcohol Use: No Hx Substance Use: No Preferred Language: Japanese Communication Ability: Effective Manager Animation Required: No Beliefs That Will Affect Care: None marital status: Current Living Situation: Other Current Living Situation Comment: UNCERTAIN Feels Safe at Home: Yes Assistive Devices: Walker and Wheelchair Allergies Allergies Allergy/AdvReac Type Severity Reaction Status Date / Time latex Allergy Intermediate HIVES/RASH Verified 02/25/23 22:07 aspirin Allergy Unknown ON GMG MED Verified 02/25/23 22:07 LIST morphine Allergy Unknown Unknown Verified 02/25/23 22:07 oxycodone AdvReac Intermediate HALLUCINATI Verified 02/25/23 22:07 ONS Home Meds Home Medications Medication Instructions Recorded Confirmed clopidogrel 75 mg tablet 75 mg PO DAILY 03/16/21 02/25/23 nitroglycerin 0.4 mg sublingual 0.4 mg sublingual .PRN/UD PRN 05/14/21 02/25/23 tablet Chest Pain melatonin 5 mg tablet 5 mg PO HS 08/02/22 02/25/23 insulin glargine 100 unit/mL (3 35 unit subcut QA 10/30/22 02/25/23 mL) subcutaneous pen (Basaglar KwikPen U-100 Insulin) olanzapine 5 mg tablet 5 mg PO HS 11/16/22 02/25/23 pantoprazole 40 mg tablet,delayed 40 mg PO DAILY 11/16/22 02/25/23 release duloxetine 30 mg capsule,delayed 30 mg PO DAILY 12/31/22 02/25/23 release duloxetine 60 mg capsule,delayed 60 mg PO DAILY 12/31/22 02/25/23 release furosemide 40 mg tablet 40 mg PO QA 12/31/22 02/25/23 isosorbide mononitrate 30 mg 30 mg PO DAILY 12/31/22 02/25/23 tablet,extended release 24 hr lisinopril 5 mg tablet 5 mg PO QA 12/31/22 02/25/23 metoprolol succinate 100 mg 100 mg PO QA 12/31/22 02/25/23 tablet,extended release 24 hr metoprolol succinate 50 mg 50 mg PO PM 12/31/22 02/25/23 tablet,extended release 24 hr nicotine 14 mg/24 hr daily 1 patch transdermal QAM 12/31/22 02/25/23 transdermal patch ropinirole 1 mg tablet 1 mg PO QPM 12/31/22 02/25/23 topiramate 50 mg tablet (Topamax) 50 mg PO BID 12/31/22 02/25/23 tramadol 50 mg tablet 50 mg PO Q6H PRN Severe Pain 12/31/22 02/25/23 (Scale Score 7-10) Previous Rx's Medication Instructions Recorded gabapentin 400 mg capsule 400 mg PO TID #30 caps 12/07/22 Results & Data (ED) Vital Signs Vital Signs - 24 hr 02/25/23 20:38 02/25/23 20:38 02/25/23 20:38 Temperature 36.7 C Temperature Source Oral Pulse Rate 107 H Pulse Rate [Apical] Respiratory Rate 28 H Respiratory Effort / Characteristics Labored Labored Respiratory Pattern Blood Pressure 181/94 H Blood Pressure Mean 123 Pulse Oximetry 88 L 88 L Oxygen Delivery Method Oxymask Oxymask Oxygen Flow Rate 8 8 Fraction of Inspired Oxygen Sepsis Recent Fever Within 48 Hours No Sepsis New/Unexplained Change in Mental Status N/A Sepsis Action Taken by Nursing Physician Notified Oxygen Flow Rate - Titration 10 Pulse Oximetry Post Tiitration 92 02/25/23 20:42 02/25/23 21:00 02/25/23 21:05 Temperature Temperature Source Pulse Rate 108 H 106 H 100 H Pulse Rate [Apical] Respiratory Rate 32 H 31 H Respiratory Effort / Characteristics Spontaneous Respiratory Pattern Tachypnea Blood Pressure 162/89 H Blood Pressure Mean 113 Pulse Oximetry 88 L 94 Oxygen Delivery Method CPAP Oxygen Flow Rate 10 Fraction of Inspired Oxygen 50 Sepsis Recent Fever Within 48 Hours Sepsis New/Unexplained Change in Mental Status Sepsis Action Taken by Nursing Oxygen Flow Rate - Titration Pulse Oximetry Post Tiitration 02/25/23 21:08 02/25/23 21:30 02/25/23 22:22 Temperature Temperature Source Pulse Rate 99 H 108 H Pulse Rate [Apical] 97 H Respiratory Rate 31 H 20 24 Respiratory Effort / Characteristics Spontaneous Respiratory Pattern Blood Pressure 156/119 H 183/102 H Blood Pressure Mean 131 129 Pulse Oximetry 93 95 90 Oxygen Delivery Method BiPAP Oxymask Oxygen Flow Rate 10 Fraction of Inspired Oxygen 50 Sepsis Recent Fever Within 48 Hours Sepsis New/Unexplained Change in Mental Status Sepsis Action Taken by Nursing Oxygen Flow Rate - Titration Pulse Oximetry Post Tiitration 02/25/23 22:26 02/25/23 22:30 02/25/23 23:15 Temperature Temperature Source Pulse Rate 104 H 114 H 107 H Pulse Rate [Apical] Respiratory Rate 25 H 28 H Respiratory Effort / Characteristics Respiratory Pattern Blood Pressure 162/83 H 162/99 H 171/98 H Blood Pressure Mean 109 120 Pulse Oximetry 91 91 Oxygen Delivery Method Oxygen Flow Rate Fraction of Inspired Oxygen Sepsis Recent Fever Within 48 Hours Sepsis New/Unexplained Change in Mental Status Sepsis Action Taken by Nursing Oxygen Flow Rate - Titration Pulse Oximetry Post Tiitration Laboratory Data Attestation: I reviewed the patient's lab results. 02/25/23 21:34 02/25/23 21:38 Lab Results 02/25/23 02/25/23 02/25/23 Range/Units 20:51 20:57 21:34 WBC 10.28 (4.8-10.8) K/ul RBC 3.34 L (4.20-5.40) M/uL Hgb 10.3 L (12.0-16.0) g/dl Hct 32.7 L (37.0-47.0) % MCV 97.9 (80.0-100.0) fL MCH 30.8 (25.0-34.0) pg MCHC 31.5 L (32.0-36.0) g/dL RDW Std Deviation 58.1 H (36.4-46.3) fL RDW Coeff of Fabio 16.7 H (11.5-14.5) % Plt Count 177 (130-400) K/uL MPV 12.1 (9.4-12.4) fL Immature Gran % (Auto) 1.3 % Neut % (Auto) 62.9 % Lymph % (Auto) 13.6 % [place] % (Auto) 21.6 % Eos % (Auto) 0.3 % Baso % (Auto) 0.3 % Neut # (Auto) 6.47 (1.40-6.50) K/uL Lymph # (Auto) 1.40 (1.20-3.40) K/uL [place] # (Auto) 2.22 H (0.11-0.59) K/uL Eos # (Auto) 0.03 (0.00-0.50) K/uL Baso # (Auto) 0.03 (0.00-0.20) K/uL Immature Gran # (Auto) 0.13 (0.01-0.20) K/uL Absolute Nucleated RBC 0.02 (0.00-0.12) K/uL Nucleated RBC % (auto) 0.2 % VBG pH 7.42 H (7.36-7.41) VBG pCO2 43 (38-50) mmHg VBG pO2 40 mmHg VBG HCO3 28 mmol/L VBG O2 Saturation 64.6 % VBG Base Excess 2.9 mEq/L Sodium 135 L (136-145) mmol/L Potassium TNP Chloride 101 (98-107) mmol/L Carbon Dioxide 25 (21-32) mmol/L Anion Gap 9 (3-11) BUN 12 (6-23) mg/dl Creatinine 0.79 (0.6-1.2) mg/dl Est Cr Clr Drug Dosing 68.6 ml/min Est GFR ( Amer) 91.7 ml/min Est GFR (Non-Af Amer) 79.1 ml/min BUN/Creatinine Ratio 15.2 (10-20) Glucose 382 H* (70-99(Fasting)) mg/dl Lactate 1.8 (0.4-2.0) mmol/L Calcium 9.1 (8.6-10.3) mg/dl Phosphorus 3.4 (2.5-4.9) mg/dl Magnesium 2.0 (1.7-2.4) mg/dl Total Bilirubin 1.0 (0.2-1.0) mg/dl AST TNP ALT 21 (7-52) U/L Alkaline Phosphatase 69 (34-104) U/L Troponin I High Sens 1101.5 H* (0-14) pg/ml B-Natriuretic Peptide 711 H (0-100) pg/ml Total Protein 7.4 (6.0-8.3) gm/dl Albumin 3.8 (3.4-5.0) gm/dl Globulin 3.6 (2.5-4.0) gm/dl Albumin/Globulin Ratio 1.1 (0.9-2) Lipase 22 (11-82) U/L Procalcitonin < 0.05 (0-0.5) ng/ml Adenovirus (PCR) Not Detected (NotDetected) B. pertussis DNA (PCR) Not Detected (NotDetected) B.parapertussis DNA PCR Not Detected (NotDetected) C. pneumoniae DNA (PCR) Not Detected (NotDetected) Coronavirus OC43 (PCR) Not Detected (NotDetected) Coronavirus HKU1 (PCR) Not Detected (NotDetected) Coronavirus 229E (PCR) Not Detected (NotDetected) SARS-CoV-2 (PCR) Not Detected (NotDetected) Coronavirus NL63 (PCR) Not Detected (NotDetected) Human Metapneumovir PCR Not Detected (NotDetected) Influenza Type A (PCR) Not Detected (NotDetected) Influenza Type B (PCR) Not Detected (NotDetected) M. pneumoniae (PCR) Not Detected (NotDetected) Parainfluenza 1 (PCR) Not Detected (NotDetected) Parainfluenza 2 (PCR) Not Detected (NotDetected) Parainfluenza 3 (PCR) Not Detected (NotDetected) Parainfluenza 4 (PCR) Not Detected (NotDetected) RSV (PCR) Not Detected (NotDetected) Entero/Rhino (PCR) Not Detected (NotDetected) 02/25/23 Range/Units 21:38 WBC (4.8-10.8) K/ul RBC (4.20-5.40) M/uL Hgb (12.0-16.0) g/dl Hct (37.0-47.0) % MCV (80.0-100.0) fL MCH (25.0-34.0) pg MCHC (32.0-36.0) g/dL RDW Std Deviation (36.4-46.3) fL RDW Coeff of Fabio (11.5-14.5) % Plt Count (130-400) K/uL MPV (9.4-12.4) fL Immature Gran % (Auto) % Neut % (Auto) % Lymph % (Auto) % [place] % (Auto) % Eos % (Auto) % Baso % (Auto) % Neut # (Auto) (1.40-6.50) K/uL Lymph # (Auto) (1.20-3.40) K/uL [place] # (Auto) (0.11-0.59) K/uL Eos # (Auto) (0.00-0.50) K/uL Baso # (Auto) (0.00-0.20) K/uL Immature Gran # (Auto) (0.01-0.20) K/uL Absolute Nucleated RBC (0.00-0.12) K/uL Nucleated RBC % (auto) % VBG pH (7.36-7.41) VBG pCO2 (38-50) mmHg VBG pO2 mmHg VBG HCO3 mmol/L VBG O2 Saturation % VBG Base Excess mEq/L Sodium (136-145) mmol/L Potassium 3.9 Chloride (98-107) mmol/L Carbon Dioxide (21-32) mmol/L Anion Gap (3-11) BUN (6-23) mg/dl Creatinine (0.6-1.2) mg/dl Est Cr Clr Drug Dosing ml/min Est GFR ( Amer) ml/min Est GFR (Non-Af Amer) ml/min BUN/Creatinine Ratio (10-20) Glucose (70-99(Fasting)) mg/dl Lactate (0.4-2.0) mmol/L Calcium (8.6-10.3) mg/dl Phosphorus (2.5-4.9) mg/dl Magnesium (1.7-2.4) mg/dl Total Bilirubin (0.2-1.0) mg/dl AST 32 ALT (7-52) U/L Alkaline Phosphatase (34-104) U/L Troponin I High Sens (0-14) pg/ml B-Natriuretic Peptide (0-100) pg/ml Total Protein (6.0-8.3) gm/dl Albumin (3.4-5.0) gm/dl Globulin (2.5-4.0) gm/dl Albumin/Globulin Ratio (0.9-2) Lipase (11-82) U/L Procalcitonin (0-0.5) ng/ml Adenovirus (PCR) (NotDetected) B. pertussis DNA (PCR) (NotDetected) B.parapertussis DNA PCR (NotDetected) C. pneumoniae DNA (PCR) (NotDetected) Coronavirus OC43 (PCR) (NotDetected) Coronavirus HKU1 (PCR) (NotDetected) Coronavirus 229E (PCR) (NotDetected) SARS-CoV-2 (PCR) (NotDetected) Coronavirus NL63 (PCR) (NotDetected) Human Metapneumovir PCR (NotDetected) Influenza Type A (PCR) (NotDetected) Influenza Type B (PCR) (NotDetected) M. pneumoniae (PCR) (NotDetected) Parainfluenza 1 (PCR) (NotDetected) Parainfluenza 2 (PCR) (NotDetected) Parainfluenza 3 (PCR) (NotDetected) Parainfluenza 4 (PCR) (NotDetected) RSV (PCR) (NotDetected) Entero/Rhino (PCR) (NotDetected) Administered Medications Doxycycline Hyclate 100 mg/ (Dextrose) 100 mls @ 50 mls/hr IV NOW STA Stop: 02/26/23 00:43 Last Admin: 02/25/23 23:15 Dose: 50 mls/hr Documented By: QUAN Discontinued Medications Albuterol (Albut/Ipratrop 3mg/0.5mg Neb 3 Ml Vial) 3 ml NEB NOW STA; Protocol Stop: 02/25/23 21:03 Last Admin: 02/25/23 21:07 Dose: 3 ml Documented By: SHASTA Aspirin (Aspirin Chew 324 Mg) 324 mg PO NOW STA Stop: 02/25/23 22:15 Last Admin: 02/25/23 22:18 Dose: 324 mg Documented By: DILCIA Furosemide (Furosemide 40 Mg/4 Ml Vial) 40 mg IV ONE STA Stop: 02/25/23 22:49 Last Admin: 02/25/23 23:15 Dose: 40 mg Documented By: QUAN Cefepime HCl (Maxipime) 2,000 mg in 20 mls @ 5 mls/min IV NOW STA; Protocol Stop: 02/25/23 22:47 Last Admin: 02/25/23 22:50 Dose: 5 mls/min Documented By: DILCIA Lorazepam (Lorazepam 1 Mg/1 Ml Syr Ed Inj Use) 1 mg IV ONE STA Stop: 01/13/24 22:42 Last Admin: 02/25/23 22:48 Dose: 1 mg Documented By: DILCIA Metoprolol Tartrate (Metoprolol Tartrate 1 Mg/Ml Vial) 2.5 mg IV NOW STA Stop: 02/25/23 22:41 Last Admin: 02/25/23 23:15 Dose: 2.5 mg Documented By: QUAN Nitroglycerin (Nitroglycerin Sl 0.4 Mg/Tab Tab) 0.4 mg SL NOW STA Stop: 02/25/23 22:14 Last Admin: 02/25/23 22:23 Dose: 0.4 mg Documented By: DILCIA Imaging Data Radiologist's Impression: Chest X-Ray 02/25/23 20:52 SINGLE VIEW CHEST CLINICAL HISTORY: Atypical chest pain. FINDINGS: An AP, portable, upright chest radiograph is compared to study dated 12/31/2022 and correlated with chest CT dated 11/18/2022. The patient is status post midline sternotomy. The heart is enlarged noting atherosclerotic calcification of the thoracic aorta. There is pulmonary vascular congestion. There are layering pleural effusions with dependent consolidation. No pneumothorax is seen. The skeletal structures are osteopenic. The bony thorax is grossly intact. There is atherosclerotic calcification of the carotid bulbs. IMPRESSION: 1. Cardiomegaly with pulmonary vascular congestion. 2. Layering pleural effusions with dependent consolidation. ACT 112: Negative or not required by law. Electronically signed by: Geovani Dumont M.D. 02/25/2023 9:58 PM Discharge Plan Visit Data Chief Complaint: Shortness of Breath/Dyspnea ED Provider: Wilbur Pathak Discharge Problem: Acute and chronic respiratory failure with hypoxia, COPD (chronic obstructive pulmonary disease), CHF (congestive heart failure), Non-ST elevation myocardial infarction (NSTEMI) Forms Stand Alone Forms: My [facility] [place] Prescriptions Prescriptions: No Action clopidogrel 75 mg tablet 75 mg PO DAILY nitroglycerin 0.4 mg tablet, sublingual 0.4 mg sublingual .PRN/UD PRN (Reason: Chest Pain) Rx Instructions: NEEDED FOR CHEST PAIN : ONE TABLET UNDER THE TONGUE EVERY 5 MINUTES UP TO THREE DOSES. melatonin 5 mg Tablet 5 mg PO HS insulin glargine [Basaglar KwikPen U-100 Insulin] 100 unit/mL (3 mL) insulin pen 35 unit SUBCUT QAM olanzapine 5 mg tablet 5 mg PO HS pantoprazole 40 mg tablet,delayed release (DR/EC) 40 mg PO DAILY gabapentin 400 mg Capsule 400 mg PO TID Qty: 30 0RF furosemide 40 mg Tablet 40 mg PO QAM Rx Instructions: PER LAST ADMISSION, PER [facility] MED LIST 60 MG DAILY. nicotine 14 mg/24 hr Patch 24 Hour 1 patch TRANSDERMAL QAM metoprolol succinate 50 mg tablet extended release 24 hr 50 mg PO PM isosorbide mononitrate 30 mg Tablet Extended Release 24 Hr 30 mg PO DAILY metoprolol succinate 100 mg Tablet Extended Release 24 Hr 100 mg PO QAM lisinopril 5 mg Tablet 5 mg PO QAM duloxetine 30 mg capsule,delayed release(DR/EC) 30 mg PO DAILY Rx Instructions: TOTAL DOSE 90 MG--take along with 60 mg duloxetine 60 mg capsule,delayed release(DR/EC) 60 mg PO DAILY Rx Instructions: TOTAL DOSE 90 MG--take along with 30mg ropinirole 1 mg Tablet 1 mg PO QPM Rx Instructions: administer 1-3 hours before bedtime topiramate [Topamax] 50 mg Tablet 50 mg PO BID tramadol 50 mg Tablet 50 mg PO Q6H PRN (Reason: Severe Pain (Scale Score 7-10)) Referrals Referrals: Christiano Simon PA-C [Primary Care Provider] - Discharge Problem: COPD (chronic obstructive pulmonary disease) Qualifiers: COPD type: COPD with acute exacerbation Qualified Code(s): J44.1 - Chronic obstructive pulmonary disease with (acute) exacerbation CHF (congestive heart failure) Qualifiers: Heart failure type: unspecified Heart failure chronicity: acute on chronic Q ualified Code(s): I50.9 - Heart failure, unspecified
[2023-02-25 21:44] LABS: Alanine Aminotransferase 21 U/L (7-52); Albumin Globulin Ratio 1.1 (0.9-2); Albumin Level 3.8 gm/dl (3.4-5.0); Alkaline Phosphatase 69 U/L (34-104); Anion Gap 9 (3-11); BUN Creatinine Ratio 15.2 (10-20); Blood Urea Nitrogen 12 mg/dl (6-23); Calcium 9.1 mg/dl (8.6-10.3); Carbon Dioxide 25 mmol/L (21-32); Chloride 101 mmol/L (98-107); Creatinine Clr Calc Pharmacy 68.6 ml/min; Est GFR (African American) 91.7 ml/min; Est GFR (Non-African American) 79.1 ml/min; Globulin 3.6 gm/dl (2.5-4.0); Lipase 22 U/L (11-82); Phosphorus 3.4 mg/dl (2.5-4.9); Sodium 135 mmol/L (136-145); Total Protein 7.4 gm/dl (6.0-8.3)
[2023-02-25 21:47] LABS: Base Excess VBG 2.9 mEq/L; HCO3 VBG 28 mmol/L; Oxygen Saturation VBG 64.6 %; PCO2 VBG 43 mmHg (38-50); PO2 VBG 40 mmHg; pH VBG 7.42 (7.36-7.41)
[2023-02-25 21:51] LABS: Basophils # (auto) 0.03 K/uL (0.00-0.20); Basophils % (auto) 0.3 %; Eosinophils # (auto) 0.03 K/uL (0.00-0.50); Eosinophils % (auto) 0.3 %; Hematocrit (blood only) 32.7 % (37.0-47.0); Hemoglobin 10.3 g/dl (12.0-16.0); Immature Granulocytes # (auto) 0.13 K/uL (0.01-0.20); Immature Granulocytes % (auto) 1.3 %; Lymphocytes % (auto) 13.6 %; Mean Corpuscular Hemoglobin 30.8 pg (25.0-34.0); Mean Corpuscular Hgb Conc 31.5 g/dL (32.0-36.0); Mean Corpuscular Volume 97.9 fL (80.0-100.0); Mean Platelet Volume 12.1 fL (9.4-12.4); Monocytes # (auto) 2.22 K/uL (0.11-0.59); Monocytes % (auto) 21.6 %; Neutrophils # (auto) 6.47 K/uL (1.40-6.50); Neutrophils % (auto) 62.9 %; Nucleated RBC # (auto) 0.02 K/uL (0.00-0.12); Nucleated RBC % (auto) 0.2 %; Platelet Count 177 K/uL (130-400); RDW Coefficient of Variation 16.7 % (11.5-14.5); RDW Standard Deviation 58.1 fL (36.4-46.3); Red Blood Count 3.34 M/uL (4.20-5.40); White Blood Count 10.28 K/ul (4.8-10.8)
[2023-02-25 21:52] LABS: Glucose 382 mg/dl (70-99(Fasting)); Troponin I High Sensitivity 1101.5 pg/ml (0-14)
--- NOTE | 2023-02-25 22:00 | XRay Report ---
SINGLE VIEW CHEST CLINICAL HISTORY: Atypical chest pain. FINDINGS: An AP, portable, upright chest radiograph is compared to study dated 12/31/2022 and correla reena with chest CT dated 11/18/2022. The patient is status post midline sternotomy. The heart is enlarg ed noting atherosclerotic calcification of the thoracic aorta. There is pulmonary vascular congestion . There are layering pleural effusions with dependent consolidation. No pneumothorax is seen. The ske letal structures are osteopenic. The bony thorax is grossly intact. There is atherosclerotic calcific ation of the carotid bulbs. IMPRESSION: 1. Cardiomegaly with pulmonary vascular congestion. 2. Layering pleural effusions with dependent consolidation. ACT 112: Negative or not required by law. Electronically signed by: Geovani Dumont M.D. 02/25/2023 9:58 PM
[2023-02-25 22:01] LABS: Adenovirus PCR Not Detected (NotDetected); Bordetella parapertussis PCR Not Detected (NotDetected); Bordetella pertussis PCR Not Detected (NotDetected); Chlamydia pneumoniae PCR Not Detected (NotDetected); Coronavirus 229E PCR Not Detected (NotDetected); Coronavirus CoV-2 (COVID19)PCR Not Detected (NotDetected); Coronavirus HKU1 PCR Not Detected (NotDetected); Coronavirus NL63 PCR Not Detected (NotDetected); Coronavirus OC43PCR Not Detected (NotDetected); Human Metapneumovirus PCR Not Detected (NotDetected); Influenza A PCR Not Detected (NotDetected); Influenza B PCR Not Detected (NotDetected); Mycoplasma pneumoniae PCR Not Detected (NotDetected); Parainfluenza Virus 1 PCR Not Detected (NotDetected); Parainfluenza Virus 2 PCR Not Detected (NotDetected); Parainfluenza Virus 3 PCR Not Detected (NotDetected); Parainfluenza Virus 4 PCR Not Detected (NotDetected); Respiratory Syncytial VirusPCR Not Detected (NotDetected); Rhinovirus/Enterovirus PCR Not Detected (NotDetected)
[2023-02-25] MEDS ORDERED: NITROGLYCERIN SL 0.4 MG/TAB TAB SL STA (22:13)
[2023-02-25] MEDS ORDERED: ASPIRIN CHEW 324 MG PO STA (22:14)
[2023-02-25 22:15] LABS: Potassium 3.9 mmol/L (3.5-5.1)
[2023-02-25] MEDS ORDERED: METOPROLOL TARTRATE 1 MG/ML VIAL IV STA (22:40)
[2023-02-25] MEDS ORDERED: LORazepam 1 MG/1 ML SYR ED Inj Use IV STA (22:41)
[2023-02-25] MEDS ORDERED: Heparin IV Adult Wt-Based Low-Dose w/ INITIAL Bolus Protocol IV STA (22:41)
[2023-02-25] MEDS ORDERED: CEFEPIME 2,000 MG/20 ML VIAL IV STA (22:44)
[2023-02-25] MEDS ORDERED: DOXYCYCLINE HYCLATE 100 MG in DEXTROSE 5% MINI-B 100 ML IV STA (22:44)
[2023-02-25] MEDS ORDERED: FUROSEMIDE 40 MG/4 ML VIAL IV STA (22:48)
[2023-02-25] MEDS ORDERED: HEPARIN SOD (PORCINE) 1000 UNIT/ML IV ONE ×2 (22:59→23:45)
--- NOTE | 2023-02-25 23:12 | History & Physical Report ---
Date of Service February 25, 2023 Assessment & Plan (1) Respiratory failure: Plan: acute on chronic hypoxemic respiratory failure secondary to decompensated heart failure, hx diastolic dysfunction ? Precipitated by viral respiratory tract infection Troponin elevation secondary to above Possible NSTEMI given patient chest pain complaints expressed to ER provider. hx CAD status post CABG, PVD Hypertension elevated secondary illness valvular heart disease (moderate to severe MR) history mitral valve endocarditis/periaortic abscess as per records chronic LBBB hx COPD on home O2/ISAURA on CPAP Chronic anemia, hemoglobin at baseline hyperlipidemia, on statin Rx mood disorder/paranoia as per records ongoing tobacco abuse PCU Continue BiPAP Diuretic Rx Strict I/Os, daily weights, CHF education, fluid restriction Continue antiplatelet Rx, beta-raymond, IV heparin for possible NSTEMI Cardiology consult Re: CHF and possible NSTEMI Follow troponin, TTE if with significant progression N.p.o. until patient seen by cardiology in a.m. in anticipation of ischemic workup Basal bolus insulin adjusted for n.p.o. status, ISS BG goal 1 10-1 40, update hemoglobin A1c Hold home neuropsychotropic medications given patient current lethargy. Nicotine patch as needed DVT prophylaxis. Heparin Full code Total critical care time was 50 minutes. ADDENDUM: 11:40 PM Patient refusing BiPAP as per RN. O2 sats 80s on 15 L. Patient daughter (Miss Sylvie Quispe, contact #[phone]) updated of patient's situation. Discussed family concerns regarding patient ability to comprehend the chronic medical issues and requisite self-care/compliance given patient longstanding psychiatric illness. Patient daughter understands that intubation is not optimal option for patient refusing BiPAP. CODE STATUS de-escalated to DNR as per discussion with daughter until she is able to confer with another sister. Continue with medical management. Potential need in determining patient decision-making capacity once medically stable also discussed with family. Text document was generated using [employer] voice recognition software. It may contain grammatical or spelling errors. Kindly contact undersigned for clarification of any documentation item in question. History of Present Illness Chief Complaint: Low oxygen as per records Primary Care Provider: Christiano Simon PA-C History obtained from patient, family, and records. Limited history from patient secondary to lethargy post Ativan administration at the ER. Medical history significant for chronic diastolic heart failure (EF 55 to 60%, TTE 2022), CAD status post CABG, PVD, valvular heart disease (moderate to severe MR), history mitral valve endocarditis/periaortic abscess as per records, chronic LBBB, chronic respiratory failure secondary to possible COPD as per records on home O2, ISAURA on CPAP, hypertension, hyperlipidemia, DM 2 insulin requiring, GERD, chronic anemia (baseline hemoglobin of 8), mood disorder, paranoia as per records, history of MRSA bacteremia as per records, medical noncompliance as per records, ongoing tobacco abuse. Last confinement December 2022 for encephalopathy and CHF. Patient discharged home despite concerns regarding patient's ability to live independently given recurrent confinements. 1 week history of sinus congestion symptoms. Sudden SOB tonight as per records. Patient expressed chest pain complaints as per ER provider. O2 sats noted to be 80s at patient's home. Solu-Medrol, neb treatment, IV Ativan, IV heparin, and Nitropaste administered at the ER. BiPAP initiated at the ER. Medical History as above Surgical History : CABG, hysterectomy, cholecystectomy Family History : DM, heart disease, stroke Personal/Social history : 1 pack daily, occasional EtOH intake, lives by self Allergies Allergy/AdvReac Type Severity Reaction Status Date / Time latex Allergy Intermediate HIVES/RASH Verified 02/25/23 22:07 aspirin Allergy Unknown ON GMG MED Verified 02/25/23 22:07 LIST morphine Allergy Unknown Unknown Verified 02/25/23 22:07 oxycodone AdvReac Intermediate HALLUCINATI Verified 02/25/23 22:07 ONS Home Medications Medication Instructions Recorded Confirmed Type clopidogrel 75 mg tablet 75 mg PO DAILY 03/16/21 02/25/23 History nitroglycerin 0.4 mg sublingual 0.4 mg sublingual .PRN/UD PRN 05/14/21 02/25/23 History tablet Chest Pain melatonin 5 mg tablet 5 mg PO HS 08/02/22 02/25/23 History insulin glargine 100 unit/mL (3 35 unit subcut QAM 10/30/22 02/25/23 History mL) subcutaneous pen (Basaglar KwikPen U-100 Insulin) olanzapine 5 mg tablet 5 mg PO HS 11/16/22 02/25/23 History pantoprazole 40 mg tablet,delayed 40 mg PO DAILY 11/16/22 02/25/23 History release gabapentin 400 mg capsule 400 mg PO TID #30 caps 12/07/22 02/25/23 Rx duloxetine 30 mg capsule,delayed 30 mg PO DAILY 12/31/22 02/25/23 History release duloxetine 60 mg capsule,delayed 60 mg PO DAILY 12/31/22 02/25/23 History release furosemide 40 mg tablet 40 mg PO QAM 12/31/22 02/25/23 History isosorbide mononitrate 30 mg 30 mg PO DAILY 12/31/22 02/25/23 History tablet,extended release 24 hr lisinopril 5 mg tablet 5 mg PO QAM 12/31/22 02/25/23 History metoprolol succinate 100 mg 100 mg PO QAM 12/31/22 02/25/23 History tablet,extended release 24 hr metoprolol succinate 50 mg 50 mg PO PM 12/31/22 02/25/23 History tablet,extended release 24 hr nicotine 14 mg/24 hr daily 1 patch transdermal QA 12/31/22 02/25/23 History transdermal patch ropinirole 1 mg tablet 1 mg PO QPM 12/31/22 02/25/23 History topiramate 50 mg tablet (Topamax) 50 mg PO BID 12/31/22 02/25/23 History tramadol 50 mg tablet 50 mg PO Q6H PRN Severe Pain 12/31/22 02/25/23 History (Scale Score 7-10) Past Med/Surg History Medical History Encephalopathy Acute on chronic respiratory failure with hypoxemia Multifocal pneumonia Pleural effusion Acute respiratory failure with hypoxia Pulmonary edema UTI (urinary tract infection) Right foot pain Fracture of left tibial plateau Acute on chronic HFrEF (heart failure with reduced ejection fraction) DVT prophylaxis HFrEF (heart failure with reduced ejection fraction) Abscess of aorta HTN (hypertension) Encounter for pre-operative examination History of left below knee amputation MRSA bacteremia Osteomyelitis LBBB (left bundle branch block) Carotid stenosis according to records from 2019 CEA was recommended but patient declined. no objective quantification available Tobacco use disorder Carpal tunnel syndrome, left Ulnar neuropathy at elbow of left upper extremity Anxiety Chronic congestive heart failure with left ventricular diastolic dysfunction Psychotic disorder Diabetes mellitus, type 2 Coronary artery disease Surgical History Status post ORIF of fracture of ankle R, 2016 Status post cholecystectomy Status post hysterectomy Status post coronary artery bypass grafting Family History Other Diabetes Heart disease Social History Smoking Status: Current every day smoker Tobacco Type: Cigarettes packs per day: 1; Cigarettes Per Day: 10; Second Hand Exposure: Yes; Do You Dip or Chew Tobacco: No; Preferred Language: Mohawk Communication Ability: Impaired Funeral Car Chauffeur Required: No Beliefs That Will Affect Care: None marital status: Current Living Situation: Alone Current Living Situation Comment: UNCERTAIN Feels Safe at Home: Yes Assistive Devices: Walker and Wheelchair Review of Systems Review of Systems: Could not be reliably obtained secondary to lethargy Physical Exam Physical Exam: GENERAL: Lethargic, slightly uncomfortable, minimal respiratory distress SKIN: Pallor, warm HEENT: Pale palpebral conjunctivae, no ptosis, dry buccal mucosa, O2 mask in place NECK : Supple, no tenderness CHEST : Decreased breath sounds, no tenderness HEART : Tachycardic, systolic murmur ABDOMEN: Some distention, nontender EXTREMITIES : Minimal LE swelling/tenderness, no other conspicuous deformities noted NEUROLOGIC : Lethargic, no facial asymmetry, gait and stance not assessed Results & Data Results & Data Vital Signs (Past 12 Hours) Vital Signs Temp Pulse Pulse Resp BP Pulse Ox O2 Del Method 02/25/23 22:30 114 H 28 H 162/99 H 91 02/25/23 22:26 104 H 25 H 162/83 H 91 02/25/23 22:22 108 H 24 183/102 H 90 Oxymask 02/25/23 21:30 99 H 20 156/119 H 95 02/25/23 21:08 97 H 31 H 93 BiPAP 02/25/23 21:05 100 H 31 H 94 02/25/23 21:00 106 H 32 H 162/89 H 88 L CPAP 02/25/23 20:42 108 H 02/25/23 20:38 88 L Oxymask 02/25/23 20:38 36.7 C 107 H 28 H 181/94 H 88 L Oxymask O2 Flow Rate FiO2 02/25/23 22:30 02/25/23 22:26 02/25/23 22:22 10 02/25/23 21:30 02/25/23 21:08 50 02/25/23 21:05 50 02/25/23 21:00 10 02/25/23 20:42 02/25/23 20:38 8 02/25/23 20:38 8 Laboratory Results Laboratory Results WBC 10.28 K/ul (4.8-10.8) 02/25/23 21:34 RBC 3.34 M/uL (4.20-5.40) L 02/25/23 21:34 Hgb 10.3 g/dl (12.0-16.0) L 02/25/23 21:34 Hct 32.7 % (37.0-47.0) L 02/25/23 21:34 MCV 97.9 fL (80.0-100.0) 02/25/23 21: MCH 30.8 pg (25.0-34.0) 02/25/23 21:34 MCHC 31.5 g/dL (32.0-36.0) L 02/25/23 21:34 RDW Std Deviation 58.1 fL (36.4-46.3) H 02/25/23 21:34 RDW Coeff of Fabio 16.7 % (11.5-14.5) H 02/25/23 21:34 Plt Count 177 K/uL (130-400) 02/25/23 21:34 MPV 12.1 fL (9.4-12.4) 02/25/23 21:34 Immature Gran % (Auto) 1.3 % 02/25/23 21:34 Neut % (Auto) 62.9 % 02/25/23 21:34 Lymph % (Auto) 13.6 % 02/25/23 21:34 Sibley % (Auto) 21.6 % 02/25/23 21:34 Eos % (Auto) 0.3 % 02/25/23 21:34 Baso % (Auto) 0.3 % 02/25/23 21:34 Neut # (Auto) 6.47 K/uL (1.40-6.50) 02/25/23 21:34 Lymph # (Auto) 1.40 K/uL (1.20-3.40) 02/25/23 21:34 Sibley # (Auto) 2.22 K/uL (0.11-0.59) H 02/25/23 21:34 Eos # (Auto) 0.03 K/uL (0.00-0.50) 02/25/23 21:34 Baso # (Auto) 0.03 K/uL (0.00-0.20) 02/25/23 21:34 Immature Gran # (Auto) 0.13 K/uL (0.01-0.20) 02/25/23 21:34 Absolute Nucleated RBC 0.02 K/uL (0.00-0.12) 02/25/23 21:34 Nucleated RBC % (auto) 0.2 % 02/25/23 21:34 VBG pH 7.42 (7.36-7.41) H 02/25/23 21:34 VBG pCO2 43 mmHg (38-50) 02/25/23 21:34 VBG pO2 40 mmHg 02/25/23 21:34 VBG HCO3 28 mmol/L 02/25/23 21:34 VBG O2 Saturation 64.6 % 02/25/23 21:34 VBG Base Excess 2.9 mEq/L 02/25/23 21:34 Sodium 135 mmol/L (136-145) L 02/25/23 20:51 Potassium 3.9 mmol/L (3.5-5.1) 02/25/23 21:38 Chloride 101 mmol/L (98-107) 02/25/23 20:51 Carbon Dioxide 25 mmol/L (21-32) 02/25/23 20:51 Anion Gap 9 (3-11) 02/25/23 20:51 BUN 12 mg/dl (6-23) 02/25/23 20:51 Creatinine 0.79 mg/dl (0.6-1.2) 02/25/23 20:51 Est Cr Clr Drug Dosing 68.6 ml/min 02/25/23 20:51 Est GFR ( Amer) 91.7 ml/min 02/25/23 20:51 Est GFR (Non-Af Amer) 79.1 ml/min 02/25/23 20:51 BUN/Creatinine Ratio 15.2 (10-20) 02/25/23 20:51 Glucose 382 mg/dl (70-99(Fasting)) H* 02/25/23 20:51 Lactate 1.8 mmol/L (0.4-2.0) 02/25/23 21:34 Calcium 9.1 mg/dl (8.6-10.3) 02/25/23 20:51 Phosphorus 3.4 mg/dl (2.5-4.9) 02/25/23 20:51 Magnesium 2.0 mg/dl (1.7-2.4) 02/25/23 20:51 Total Bilirubin 1.0 mg/dl (0.2-1.0) 02/25/23 20:51 AST 32 U/L (13-39) 02/25/23 21:38 ALT 21 U/L (7-52) 02/25/23 20:51 Alkaline Phosphatase 69 U/L (34-104) 02/25/23 20:51 Troponin I High Sens 1101.5 pg/ml (0-14) H* 02/25/23 20:51 B-Natriuretic Peptide 711 pg/ml (0-100) H 02/25/23 21:34 Total Protein 7.4 gm/dl (6.0-8.3) 02/25/23 20:51 Albumin 3.8 gm/dl (3.4-5.0) 02/25/23 20:51 Globulin 3.6 gm/dl (2.5-4.0) 02/25/23 20:51 Albumin/Globulin Ratio 1.1 (0.9-2) 02/25/23 20:51 Lipase 22 U/L (11-82) 02/25/23 20:51 Procalcitonin < 0.05 ng/ml (0-0.5) 02/25/23 21:34 Adenovirus (PCR) Not Detected (NotDetected) 02/25/23 20:57 B. pertussis DNA (PCR) Not Detected (NotDetected) 02/25/23 20:57 B.parapertussis DNA PCR Not Detected (NotDetected) 02/25/23 20:57 C. pneumoniae DNA (PCR) Not Detected (NotDetected) 02/25/23 20:57 Coronavirus OC43 (PCR) Not Detected (NotDetected) 02/25/23 20:57 Coronavirus HKU1 (PCR) Not Detected (NotDetected) 02/25/23 20:57 Coronavirus 229E (PCR) Not Detected (NotDetected) 02/25/23 20:57 SARS-CoV-2 (PCR) Not Detected (NotDetected) 02/25/23 20:57 Coronavirus NL63 (PCR) Not Detected (NotDetected) 02/25/23 20:57 Human Metapneumovir PCR Not Detected (NotDetected) 02/25/23 20:57 Influenza Type A (PCR) Not Detected (NotDetected) 02/25/23 20:57 Influenza Type B (PCR) Not Detected (NotDetected) 02/25/23 20:57 M. pneumoniae (PCR) Not Detected (NotDetected) 02/25/23 20:57 Parainfluenza 1 (PCR) Not Detected (NotDetected) 02/25/23 20:57 Parainfluenza 2 (PCR) Not Detected (NotDetected) 02/25/23 20:57 Parainfluenza 3 (PCR) Not Detected (NotDetected) 02/25/23 20:57 Parainfluenza 4 (PCR) Not Detected (NotDetected) 02/25/23 20:57 RSV (PCR) Not Detected (NotDetected) 02/25/23 20:57 Entero/Rhino (PCR) Not Detected (NotDetected) 02/25/23 20:57 Impressions Chest X-Ray 02/25/23 20:52 SINGLE VIEW CHEST CLINICAL HISTORY: Atypical chest pain. FINDINGS: An AP, portable, upright chest radiograph is compared to study dated 12/31/2022 and correlated with chest CT dated 11/18/2022. The patient is status post midline sternotomy. The heart is enlarged noting atherosclerotic calcification of the thoracic aorta. There is pulmonary vascular congestion. There are layering pleural effusions with dependent consolidation. No pneumothorax is seen. The skeletal structures are osteopenic. The bony thorax is grossly intact. There is atherosclerotic calcification of the carotid bulbs. IMPRESSION: 1. Cardiomegaly with pulmonary vascular congestion. 2. Layering pleural effusions with dependent consolidation. ACT 112: Negative or not required by law. Electronically signed by: Geovani Dumont M.D. 02/25/2023 9:58 PM Diagnostic Findings EKG as per my interpretation :Rate 110, LAD, LAFB, LBBB
[2023-02-25] MEDS ORDERED: NALOXONE HCL 0.4 MG/1 ML VIAL/CARP IV STA (23:18)
[2023-02-25] MEDS ORDERED: NITROGLYCERIN 2% OINTMENT 30GM TUBE EXT STA (23:23)
[2023-02-25 23:25] LABS: Partial Thromboplastin Time 27 Seconds (21-31)
[2023-02-25] MEDS ORDERED: GLUCOSE 40% GEL 15 GM TUBE PO PRN (23:34)
[2023-02-25] MEDS ORDERED: CARBOHYDRATES FOR HYPOGLYCEMIA PO PRN (23:34)
[2023-02-25] MEDS ORDERED: DEXTROSE 50% 50 ML SYRINGE IV PRN (23:34)
[2023-02-25] MEDS ORDERED: GLUCAGON FOR INJ 1 MG VIAL SQ PRN (23:34)
[2023-02-25] MEDS ORDERED: GLUCOSE 10 TAB/TUBE PO PRN (23:34)
[2023-02-25] MEDS ORDERED: LANTUS PER UNIT CHARGE SQ STA (23:35)
[2023-02-25] MEDS ORDERED: LEVALBUTEROL 1.25 MG/3 ML NEB NEB STA (23:47)
[2023-02-25] MEDS ORDERED: XOPENEX/ATROVENT 1.25mg/0.5MG NEB COMBO NEB STA (23:47)
[2023-02-25] MEDS ORDERED: IPRATROPIUM BROMIDE NEB SOLN 0.02% 0.5MG/2.5ML VIAL INH STA (23:47)
[2023-02-26] MEDS: HEPARIN SODIUM/DEXTROSE 25,000 UNITS/500 ML BAG IV SCH ×2 (00:08→23:52)
[2023-02-26] MEDS: POTASSIUM CHLORIDE / WTR 10 MEQ/100 ML PLCT IV SCH ×4 (00:08→16:13)
[2023-02-26 00:12] LABS: HCO3 ABG 25 mmol/L (19-24); PCO2 ABG 40 mmHg (35-46); PO2 ABG 60 mmHg (80-95)
[2023-02-26 00:16] LABS: Oxygen Saturation ABG 88.7 % (90-95)
[2023-02-26 00:18] LABS: Allen Test Pos (Pos)
[2023-02-26] MEDS ORDERED: METOPROLOL TARTRATE 1 MG/ML VIAL IV STA (00:35)
[2023-02-26] MEDS: INSULIN ASPART PER UNIT CHARGE SC SCH ×5 (00:39→23:52)
[2023-02-26] MEDS ORDERED: XOPENEX/ATROVENT 1.25mg/0.5MG NEB COMBO NEB SCH (01:00)
[2023-02-26] MEDS ORDERED: LANTUS PER UNIT CHARGE SQ STA ×2 (01:15→08:31)
[2023-02-26 01:22] LABS: Appearance Urine Clear (Clear); Bacteria Urine Automated Negative (Negative); Bilirubin Urine Negative (Negative); Blood Urine 1+ (Negative); Cast Urine Automated 0 /lpf (0-5); Color Urine Yellow; Epithelial Cell Urine Auto >30 /lpf (0-5); Glucose Urine UA 3+ (Negative); Ketones Urine Negative (Negative); Leukocyte Esterase Urine Negative (Negative); Nitrite Urine Negative (Negative); Protein Urine 3+ (Negative); Specific Gravity Urine 1.019 (1.000-1.030); Urobilinogen Urine Negative (Negative); pH Urine 5.5 (4.5-7.5)
[2023-02-26 01:32] LABS: RBC Urine Automated 0-4 /hpf (0-4)
[2023-02-26 01:42] LABS: Amphetamines+Metham, Urine Neg (Neg); Barbiturates, Urine Neg (Neg); Benzodiazepine, Urine Neg (Neg); Cocaine, Urine Neg (Neg); MDMA (Ecstacy), Urine Neg (Neg); Marijuana, Urine Neg (Neg); Methadone, Urine Neg (Neg); Opiate, Urine Neg (Neg); Phencyclidine, Urine Neg (Neg)
[2023-02-26] MEDS: LEVALBUTEROL 1.25 MG/3 ML NEB NEB SCH ×2 (02:15→07:11)
[2023-02-26] MEDS: IPRATROPIUM BROMIDE NEB SOLN 0.02% 0.5MG/2.5ML VIAL INH SCH ×2 (02:16→07:11)
[2023-02-26] MEDS ORDERED: PROMETHAZINE HCL 6.25 MG in SODIUM CHLORIDE 0.9% 50 ML IV PRN (02:18)
[2023-02-26] MEDS ORDERED: OLANZapine 5 MG TABLET PO STA (02:30)
[2023-02-26] MEDS ORDERED: FUROSEMIDE 40 MG/4 ML VIAL IV ONE (03:56)
[2023-02-26 04:15] LABS: Basophils # (auto) 0.02 K/uL (0.00-0.20); Basophils % (auto) 0.2 %; Hematocrit (blood only) 31.4 % (37.0-47.0); Hemoglobin 9.9 g/dl (12.0-16.0); Immature Granulocytes % (auto) 2.1 %; Lymphocytes # (auto) 0.52 K/uL (1.20-3.40); Lymphocytes % (auto) 5.4 %; Mean Corpuscular Hgb Conc 31.5 g/dL (32.0-36.0); Mean Corpuscular Volume 98.4 fL (80.0-100.0); Mean Platelet Volume 12.4 fL (9.4-12.4); Monocytes # (auto) 0.46 K/uL (0.11-0.59); Monocytes % (auto) 4.8 %; Neutrophils # (auto) 8.44 K/uL (1.40-6.50); Neutrophils % (auto) 87.5 %; Nucleated RBC # (auto) 0.02 K/uL (0.00-0.12); Nucleated RBC % (auto) 0.2 %; Platelet Count 176 K/uL (130-400); RDW Coefficient of Variation 16.6 % (11.5-14.5); RDW Standard Deviation 57.9 fL (36.4-46.3); Red Blood Count 3.19 M/uL (4.20-5.40); White Blood Count 9.64 K/ul (4.8-10.8)
[2023-02-26 04:29] LABS: Calcium 8.5 mg/dl (8.6-10.3); Potassium 3.9 mmol/L (3.5-5.1)
[2023-02-26 04:30] LABS: ANTI-Xa, UFH(UnfractionatedHep 0.52 IU/ml (0.3-0.7)
[2023-02-26] MEDS ORDERED: POTASSIUM CHLORIDE 10 MEQ / 100ML WTR IV ONE (04:32)
[2023-02-26 04:38] LABS: BUN Creatinine Ratio 17.2 (10-20); Creatinine Clr Calc Pharmacy 62.2 ml/min; Est GFR (African American) 81.6 ml/min; Est GFR (Non-African American) 70.4 ml/min
[2023-02-26] MEDS: OLANZapine 10 MG/2.1 ML SDV IM PRN ×3 (04:54→17:12)
[2023-02-26] MEDS ORDERED: OLANZapine 10 MG/2.1 ML SDV IM STA (05:55)
[2023-02-26] MEDS ORDERED: ALBUT/IPRATROP 3MG/0.5MG NEB 3 ML VIAL NEB STA (05:58)
--- NOTE | 2023-02-26 07:07 | Communication Note ---
Date of Service: February 26, 2023 Patient case discussed over the phone with other daughter, Ms. Perla Webb (contact #[phone]). She concurs with earlier DNR CODE STATUS stipulated for patient by her sister. Patient with repeated history of refusing to take requisite medications for chronic medical conditions following multiple hospital admissions from last year. Patient has verbalized to daughter that she is "ready to go" but gets scared every time she becomes short of breath that's why she calls for ambulance as per daughter. Patient family agreeable to palliative care consultation to discuss goals of care.
[2023-02-26 07:09] LABS: Estimated Average Glucose 237 mg/dl; Hemoglobin A1C 9.9 % (4.5-5.6)
[2023-02-26] MEDS: ACETAMINOPHEN 325 MG TAB PO PRN ×2 (07:27→15:34)
[2023-02-26] MEDS: DULoxetine HCL 30 MG CAP PO SCH (08:01)
[2023-02-26] MEDS: CLOPIDOGREL BISULFATE 75 MG TAB PO SCH (08:01)
[2023-02-26] MEDS: DULoxetine HCL 60 MG CAP PO SCH (08:01)
[2023-02-26] MEDS: GABAPENTIN 400 MG CAP PO SCH ×3 (08:01→20:15)
[2023-02-26] MEDS: METOPROLOL SUCC 50MG EXT REL TAB PO SCH ×2 (08:02→20:15)
[2023-02-26] MEDS: NICOTINE 14 MG/24 HR PATCH TD SCH (08:02)
[2023-02-26] MEDS: TOPIRAMATE 50 MG TAB PO SCH ×2 (08:02→20:15)
[2023-02-26] MEDS: PANTOprazole 40 MG TAB PO SCH (08:02)
[2023-02-26] MEDS: lisinopril 5 MG TAB PO SCH (08:15)
[2023-02-26] MEDS ORDERED: PHARMACY GLYCEMIC MGMT CONSULT PRN (08:17)
[2023-02-26] MEDS ORDERED: INSULIN HUMAN REGULAR PER UNIT 5 UNITS in SYRINGE 4.95 ML IV ONE (08:45)
--- NOTE | 2023-02-26 08:45 | XRay Report ---
SINGLE VIEW CHEST CLINICAL HISTORY: Hypoxia. CHF. FINDINGS: An AP, portable, upright chest radiograph is compared to study dated 02/25/2023 and correlat ed with chest CT dated 11/18/2022. The patient's head partially obscures the apices. The patient is st atus post midline sternotomy. The heart is enlarged noting atherosclerotic calcification of the thora cic aorta. There is pulmonary vascular congestion. There are layering pleural effusions with dependen t consolidation. No pneumothorax is seen. The skeletal structures are osteopenic. The bony thorax is grossly intact. IMPRESSION: 1. Cardiomegaly with evidence of congestive failure. This is similar to yesterday. 2. Layering pleural effusions with dependent consolidation. ACT 112: Negative or not required by law. Electronically signed by: Geovani Dumont M.D. 02/26/2023 8:44 AM
[2023-02-26] MEDS ORDERED: ISOSORBIDE MONO EXTENDED REL 30 MG TABCR PO SCH (09:00)
--- NOTE | 2023-02-26 10:31 | Pulmonary Consultation ---
Date of Consultation February 26, 2023 Assessment & Plan (1) Respiratory failure: (2) Acute and chronic respiratory failure with hypoxia: (3) CHF (congestive heart failure): Heart failure chronicity: acute on chronic Heart failure type: unspecified Qualified Code(s): I50.9 - Heart failure, unspecified (4) Encephalopathy: Plan Impression: 62-year-old female with multifactorial hypoxemia and shortness of breath. Her chest x-ray demonstrates low lung volumes with cardiomegaly and probable bilateral pleural effusions. She is being treated empirically for elevated cardiac enzymes on blood work. Her last echocardiogram was performed back in October 2022 which demonstrated moderate to severe MR and EF of 55 to 60% mild aortic sclerosis without stenosis. Significant diastolic dysfunction was identified. She now has what appears to be fluid overload with bilateral pleural effusions low lung volumes and basilar atelectasis with cardiomegaly and pulmonary vascular congestion and hypoxemia requiring high flow. Troponin was mildly elevated. BNP mildly elevated and procalcitonin negative. Recommendations: 1. Hypoxemic respiratory failure: Agree with cardiology evaluation. Aggressive diuresis should be initiated. Will give her 80 mg of IV Lasix now and defer additional Lasix to cardiology and the patient's primary admitting service. 2. Agree with making a definitive decision regarding the patient's CODE STATUS. Reportedly patient and family are not wanting to pursue aggressive long-term care which given her history of frequent hospitalizations and declining physical status would be reasonable. Palliative care consultation. 3. COPD: Patient does not appear bronchospastic currently. Do not see an indication for systemic steroids at this point in time. Can continue nebulized bronchodilators in the form of budesonide and Perforomist and as needed DuoNebs. 4. Management of the patient's other medical issues is deferred to the primary admitting service. Patient's overall prognosis is guarded. History of Present Illness Attending Physician: Angelo Gonzalez MD History of Present Illness Asked by hospitalist to assist in evaluation management this patient with pulmonary edema and hypoxemic respiratory failure with probable bilateral effusions. History is obtained from review electronic medical record. The patient is somewhat obtunded and not able to provide any significant history. The patient is a 62-year-old female with a history of diastolic heart failure and severe mitral regurgitation COPD on home oxygen and CPAP was admitted about a month ago for encephalopathy and heart failure. She apparently reported a 1 week history of congestion and had increasing shortness of breath and chest pain. Oxygen saturations by EMS were reported in the 80% range. She was brought to the emergency room and treated with Nitropaste Ativan IV heparin Solu-Medrol and nebulizers as well as noninvasive positive pressure ventilation. Patient apparently refused BiPAP. Discussions were held with the patient's daughter as well as with the patient. She has had multiple psychiatric consultations in the past. She was not felt to have capacity to make decisions. CODE STATUS was readdressed and the patient was made DNR. Palliative care consultation has been entered as well. The patient is currently been weaned to high flow oxygen. She remains tachycardic tachypneic and and hypertensive. Blood gas did not demonstrate hypercarbia. Allergies Allergy/AdvReac Type Severity Reaction Status Date / Time latex Allergy Intermediate HIVES/RASH Verified 02/25/23 22:07 aspirin Allergy Unknown ON [facility] MED Verified 02/25/23 22:07 LIST morphine Allergy Unknown Unknown Verified 02/25/23 22:07 oxycodone AdvReac Intermediate HALLUCINATI Verified 02/25/23 22:07 ONS Home Medications Medication Instructions Recorded Confirmed Type clopidogrel 75 mg tablet 75 mg PO DAILY 03/16/21 02/25/23 History nitroglycerin 0.4 mg sublingual 0.4 mg sublingual .PRN/UD PRN 05/14/21 02/25/23 History tablet Chest Pain melatonin 5 mg tablet 5 mg PO HS 08/02/22 02/25/23 History insulin glargine 100 unit/mL (3 35 unit subcut QAM 10/30/22 02/25/23 History mL) subcutaneous pen (Basaglar KwikPen U-100 Insulin) olanzapine 5 mg tablet 5 mg PO HS 11/16/22 02/25/23 History pantoprazole 40 mg tablet,delayed 40 mg PO DAILY 11/16/22 02/25/23 History release gabapentin 400 mg capsule 400 mg PO TID #30 caps 12/07/22 02/25/23 Rx duloxetine 30 mg capsule,delayed 30 mg PO DAILY 12/31/22 02/25/23 History release duloxetine 60 mg capsule,delayed 60 mg PO DAILY 12/31/22 02/25/23 History release furosemide 40 mg tablet 40 mg PO QAM 12/31/22 02/25/23 History isosorbide mononitrate 30 mg 30 mg PO DAILY 12/31/22 02/25/23 History tablet,extended release 24 hr lisinopril 5 mg tablet 5 mg PO QAM 12/31/22 02/25/23 History metoprolol succinate 100 mg 100 mg PO QAM 12/31/22 02/25/23 History tablet,extended release 24 hr metoprolol succinate 50 mg 50 mg PO PM 12/31/22 02/25/23 History tablet,extended release 24 hr nicotine 14 mg/24 hr daily 1 patch transdermal QAM 12/31/22 02/25/23 History transdermal patch ropinirole 1 mg tablet 1 mg PO QPM 12/31/22 02/25/23 History topiramate 50 mg tablet (Topamax) 50 mg PO BID 12/31/22 02/25/23 History tramadol 50 mg tablet 50 mg PO Q6H PRN Severe Pain 12/31/22 02/25/23 History (Scale Score 7-10) Patient History Medical History Encephalopathy Acute on chronic respiratory failure with hypoxemia Multifocal pneumonia Pleural effusion Acute respiratory failure with hypoxia Pulmonary edema UTI (urinary tract infection) Right foot pain Fracture of left tibial plateau Acute on chronic HFrEF (heart failure with reduced ejection fraction) DVT prophylaxis HFrEF (heart failure with reduced ejection fraction) Abscess of aorta HTN (hypertension) Encounter for pre-operative examination History of left below knee amputation MRSA bacteremia Osteomyelitis LBBB (left bundle branch block) Carotid stenosis according to records from 2019 CEA was recommended but patient declined. no objective quantification available Tobacco use disorder Carpal tunnel syndrome, left Ulnar neuropathy at elbow of left upper extremity Anxiety Chronic congestive heart failure with left ventricular diastolic dysfunction Psychotic disorder Diabetes mellitus, type 2 Coronary artery disease Surgical History Status post ORIF of fracture of ankle R, 2016 Status post cholecystectomy Status post hysterectomy Status post coronary artery bypass grafting Family History Other Diabetes Heart disease Social History Smoking Status: Current every day smoker Tobacco Type: Cigarettes packs per day: 1; Cigarettes Per Day: 10; Second Hand Exposure: Yes; Do You Dip or Chew Tobacco: No; Preferred Language: And[place]ran Communication Ability: Impaired 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 Neck: trachea midline, no thyromegaly Respiratory: + respiratory distress, + labored breath ing and + tachypneic Auscultation: + diminished lung sounds, + crackles and + rhonchi Diminished at the bases Cardiovascular: Rate/Rhythm: + tachycardic Heart Sounds: normal S1, normal S2 and + murmur Extremities: + edema Gastrointestinal (Abdomen): normal bowel sounds, soft, nontender, no hepatosplenomegaly Musculoskeletal: Lower extremity wound is dressed Skin: no rashes, warm and dry Lymphatic: no cervical lymphadenopathy Results & Data Results & Data Vital Signs (Past 12 Hours) Vital Signs Temp Pulse Pulse Resp BP BP Pulse Ox 02/26/23 07:38 110 H 02/26/23 07:31 02/26/23 07:31 02/26/23 07:31 36.4 C L 110 H 24 170/96 H 95 02/26/23 07:11 108 H 28 H 94 02/26/23 05:41 02/26/23 05:41 37 C 75 26 H 140/89 87 L 02/26/23 05:41 02/26/23 04:30 93 H 22 145/94 H 93 02/26/23 04:00 87 20 135/85 94 02/26/23 03:01 97 H 19 144/96 H 96 02/26/23 02:36 02/26/23 02:30 97 H 18 164/104 H 94 02/26/23 02:24 96 H 26 H 93 02/26/23 02:17 99 H 24 89 L 02/26/23 01:28 102 H 146/97 H 02/26/23 00:40 107 H 164/127 H 02/26/23 00:30 104 H 20 164/127 H 89 L 02/26/23 00:24 105 H 02/26/23 00:24 105 H 27 H 149/106 H 83 L 02/26/23 00:19 104 H 180/94 H 02/25/23 23:31 100 H 31 H 180/94 H 87 L 02/25/23 23:15 107 H 171/98 H 02/25/23 23:00 103 H 18 171/98 H 92 02/25/23 22:30 114 H 28 H 162/99 H 91 02/25/23 22:26 104 H 25 H 162/83 H 91 02/25/23 22:22 108 H 24 183/102 H 90 Pulse Ox O2 Del Method O2 Del Method O2 Flow Rate O2 Flow Rate FiO2 02/26/23 07:38 02/26/23 07:31 High Flow Nasal Cannula 40 02/26/23 07:31 95 High Flow Nasal Cannula 40 02/26/23 07:31 High Flow Nasal Cannula 40 90 02/26/23 07:11 High Flow Nasal Cannula 40 90 02/26/23 05:41 Oxymask 15 02/26/23 05:41 Oxymask 15 02/26/23 05:41 Oxymask 15 02/26/23 04:30 BiPAP 60 02/26/23 04:00 BiPAP 60 02/26/23 03:01 BiPAP 60 02/26/23 02:36 93 BiPAP 02/26/23 02:30 BiPAP 60 02/26/23 02:24 60 02/26/23 02:17 Oxymask 15 02/26/23 01:28 02/26/23 00:40 02/26/23 00:30 Oxymask 15 02/26/23 00:24 02/26/23 00:24 Aerosol Mask 10 02/26/23 00:19 02/25/23 23:31 Oxymask 15 02/25/23 23:15 02/25/23 23:00 02/25/23 22:30 02/25/23 22:26 02/25/23 22:22 Oxymask 10 Critical Care Results & Data Vital Signs (Past 12 Hours) Vital Signs Temp Pulse Pulse Resp BP BP Pulse Ox 02/26/23 07:38 110 H 02/26/23 07:31 02/26/23 07:31 02/26/23 07:31 36.4 C L 110 H 24 170/96 H 95 02/26/23 07:11 108 H 28 H 94 02/26/23 05:41 02/26/23 05:41 37 C 75 26 H 140/89 87 L 02/26/23 05:41 02/26/23 04:30 93 H 22 145/94 H 93 02/26/23 04:00 87 20 135/85 94 02/26/23 03:01 97 H 19 144/96 H 96 02/26/23 02:36 02/26/23 02:30 97 H 18 164/104 H 94 02/26/23 02:24 96 H 26 H 93 02/26/23 02:17 99 H 24 89 L 02/26/23 01:28 102 H 146/97 H 02/26/23 00:40 107 H 164/127 H 02/26/23 00:30 104 H 20 164/127 H 89 L 02/26/23 00:24 105 H 02/26/23 00:24 105 H 27 H 149/106 H 83 L 02/26/23 00:19 104 H 180/94 H 02/25/23 23:31 100 H 31 H 180/94 H 87 L 02/25/23 23:15 107 H 171/98 H 02/25/23 23:00 103 H 18 171/98 H 92 02/25/23 22:30 114 H 28 H 162/99 H 91 02/25/23 22:26 104 H 25 H 162/83 H 91 Pulse Ox O2 Del Method O2 Del Method O2 Flow Rate O2 Flow Rate FiO2 02/26/23 07:38 02/26/23 07:31 High Flow Nasal Cannula 40 02/26/23 07:31 95 High Flow Nasal Cannula 40 02/26/23 07:31 High Flow Nasal Cannula 40 90 02/26/23 07:11 High Flow Nasal Cannula 40 90 02/26/23 05:41 Oxymask 15 02/26/23 05:41 Oxymask 15 02/26/23 05:41 Oxymask 15 02/26/23 04:30 BiPAP 60 02/26/23 04:00 BiPAP 60 02/26/23 03:01 BiPAP 60 02/26/23 02:36 93 BiPAP 02/26/23 02:30 BiPAP 60 02/26/23 02:24 60 02/26/23 02:17 Oxymask 15 02/26/23 01:28 02/26/23 00:40 02/26/23 00:30 Oxymask 15 02/26/23 00:24 02/26/23 00:24 Aerosol Mask 10 02/26/23 00:19 02/25/23 23:31 Oxymask 15 02/25/23 23:15 02/25/23 23:00 02/25/23 22:30 02/25/23 22:26 Lab & Micro Results (Past 24 Hours) RBC 3.19 M/uL (4.20-5.40) L 02/26/23 WBC 9.64 K/ul (4.8-10.8) 02/26/23 Hgb 9.9 g/dl (12.0-16.0) L 02/26/23 Hct 31.4 % (37.0-47.0) L 02/26/23 MCV 98.4 fL (80.0-100.0) 02/26/23 MCH 31.0 pg (25.0-34.0) 02/26/23 MCHC 31.5 g/dL (32.0-36.0) L 02/26/23 RDW Standard Deviation 57.9 fL (36.4-46.3) H 02/26/23 RDW Coefficient of Variation 16.6 % (11.5-14.5) H 02/26/23 Plt Count 176 K/uL (130-400) 02/26/23 MPV 12.4 fL (9.4-12.4) 02/26/23 Nucleated Red Blood Cells % (auto) 0.2 % 02/26 Nucleated RBC Absolute Count (auto) 0.02 K/uL (0.00-0.12) 0 02/26/23 Neutrophils (%) (Auto) 87.5 % 02/26/23 Lymphocytes (%) (Auto) 5.4 % 02/26/23 Monocytes # (Auto) 0.46 K/uL (0.11-0.59) 02/26/23 Eosinophils # (Auto) 0.00 K/uL (0.00-0.50) 02/26/23 Immature Granulocyte % (Auto) 2.1 % 02/26/23 Neutrophils # (Auto) 8.44 K/uL (1.40-6.50) H 02/26/23 Lymphocytes # (Auto) 0.52 K/uL (1.20-3.40) L 02/26/23 Monocytes # (Auto) 0.46 K/uL (0.11-0.59) 02/26/23 Eosinophils # (Auto) 0.00 K/uL (0.00-0.50) 02/26/23 Basophils # (Auto) 0.02 K/uL (0.00-0.20) 02/26/23 Immature Granulocyte # (Auto) 0.20 K/uL (0.01-0.20) 4 Na 135 mmol/L (136-145) L 02/26/23 K 3.9 mmol/L (3.5-5.1) 02/26/23 Cl 102 mmol/L (98-107) 02/26/23 CO2 24 mmol/L (21-32) 02/26/23 Anion Gap 9 (3-11) 02/26/23 BUN 15 mg/dl (6-23) 02/26/23 Creatinine 0.87 mg/dl (0.6-1.2) 02/26/23 Estimated GFR ( Amer) 81.6 ml/min 02/26/23 Estimated GFR (Non-Af Amer) 70.4 ml/min 02/26/23 BUN/Creatinine Ratio 17.2 (10-20) 02/26/23 Glu 370 mg/dl (70-99(Fasting)) H* 02/26/23 Ca 8.5 mg/dl (8.6-10.3) L 02/26/23 Phosphorus Level 3.4 mg/dl (2.5-4.9) 02/25/23 Total Bilirubin 1.0 mg/dl (0.2-1.0) 02/25/23 AST 32 U/L (13-39) 02/25/23 ALT 21 U/L (7-52) 02/25/23 Alkaline Phosphatase 69 U/L (34-104) 02/25/23 TP 7.4 gm/dl (6.0-8.3) 02/25/23 Albumin 3.8 gm/dl (3.4-5.0) 02/25/23 Globulin 3.6 gm/dl (2.5-4.0) 02/25/23 Albumin/Globulin Ratio 1.1 (0.9-2) 02/25/23 Mg 2.0 mg/dl (1.7-2.4) 02/25/23 20:51 Calcium Level 8.5 mg/dl (8.6-10.3) L 02/26/23 03:36 Venous Blood pH 7.42 (7.36-7.41) H 02/25/23 21:34 Venous Blood Partial Pressure CO2 43 mmHg (38-50) 02/25/23 21:3 4 Venous Blood Partial Pressure O2 40 mmHg 02/25/23 21:34 Venous Blood HCO3 28 mmol/L 02/25/23 21:34 Venous Blood Base Excess 2.9 mEq/L 02/25/23 21:34 Venous Blood Oxygen Saturation 64.6 % 02/25/23 21:34 Arterial Blood pH 7.40 (7.35-7.45) 02/26/23 00:02 Arterial Blood Partial Pressure CO2 40 mmHg (35-46) 02/26/23 00 :02 Arterial Blood Partial Pressure O2 60 mmHg (80-95) L 02/26/23 0 0:02 Arterial Blood HCO3 25 mmol/L (19-24) H 02/26/23 00:02 Arterial Blood Base Excess 0.0 mEq/L (-9-1.8) 02/26/23 00:02 Arterial Blood Oxygen Saturation 88.7 % (90-95) L 02/26/23 00:0 2 Blood Gas Oxygen Given 50% FI02 02/26/23 00:02 Christopher Test Pos (Pos) 02/26/23 00:02 Diagnostic Findings (Past 24 Hours) Chest X-Ray 02/25/23 20:52 SINGLE VIEW CHEST CLINICAL HISTORY: Atypical chest pain. FINDINGS: An AP, portable, upright chest radiograph is compared to study dated 12/31/2022 and correlated with chest CT dated 11/18/2022. The patient is status post midline sternotomy. The heart is enlarged noting atherosclerotic calcification of the thoracic aorta. There is pulmonary vascular congestion. There are layering pleural effusions with dependent consolidation. No pneumothorax is seen. The skeletal structures are osteopenic. The bony thorax is grossly intact. There is atherosclerotic calcification of the carotid bulbs. IMPRESSION: 1. Cardiomegaly with pulmonary vascular congestion. 2. Layering pleural effusions with dependent consolidation. ACT 112: Negative or not required by law. Electronically signed by: Geovani Dumont M.D. 02/25/2023 9:58 PM Chest X-Ray 02/26/23 08:18 SINGLE VIEW CHEST CLINICAL HISTORY: Hypoxia. CHF. FINDINGS: An AP, portable, upright chest radiograph is compared to study dated 02/25/2023 and correlated with chest CT dated 11/18/2022. The patient's head partially obscures the apices. The patient is status post midline sternotomy. The heart is enlarged noting atherosclerotic calcification of the thoracic aorta. There is pulmonary vascular congestion. There are layering pleural effusions with dependent consolidation. No pneumothorax is seen. The skeletal structures are osteopenic. The bony thorax is grossly intact. IMPRESSION: 1. Cardiomegaly with evidence of congestive failure. This is similar to yesterday. 2. Layering pleural effusions with dependent consolidation. ACT 112: Negative or not required by law. Electronically signed by: Geovani Dumont M.D. 02/26/2023 8:44 AM I & O Totals 24 Hours 02/25/23 02/26/23 02/27/23 06:59 06:59 06:59 Intake Total 200 / 300 198.233 / 198.233 Output Total 1000 / 1000 Balance 200 / 300 -801.767 / -801.767 Cumulative 02/25/23 20:14 thru 02/26/23 07:51 Intake Total 398.233 Output Total 1000 Balance -601.767 RT Ventilator Mngmt (Last Documented) Ventilator Ordered Settings Respiratory Rate 24 02/26/23 07:31 Fraction of Inspired Oxygen 90 02/26/23 07:31 Ventilator - PT Measurements Respiratory Rate 24 PG Care Time/CCT Total # of Minutes Spent Total Time Spent with Patient: Total time spent is greater than 50% in coordination of care (as documented) at patient's floor/unit and/or counseling patient: Coding Level of Care Code 26168 IN/OBS CONSULT LVL 3,45M Diagnoses Respiratory failure J96.90 Acute and chronic respiratory failure with hypoxia J96.21 CHF (congestive heart failure) I50.9 Heart failure chronicity: acute on chronic Heart failure type: unspecified Encephalopathy G93.40
[2023-02-26] MEDS: FUROSEMIDE 40 MG/4 ML VIAL IV SCH ×2 (11:14→20:14)
[2023-02-26] MEDS: FORMOTEROL 20 MCG/2 ML VIAL NEB SCH ×2 (11:38→19:25)
--- NOTE | 2023-02-26 11:56 | Cardiology Consultation ---
Date of Consultation February 26, 2023 Assessment & Plan (1) Acute and chronic respiratory failure with hypoxia: (2) Acute on chronic heart failure with preserved ejection fraction (HFpEF): (3) Non-ST elevation myocardial infarction (NSTEMI): (4) Mitral regurgitation: (5) Pleural effusion, bilateral: Plan 62-year-old female presenting to the emergency department with acute on chronic respiratory failure due to congestive heart failure. X-ray evidence of bilateral pleural effusions. Recommend IV diuresis. She will receive additional 80 mg of IV Lasix this morning followed by 40 mg IV twice daily. Blood pressure elevated. Will add topical nitrates for afterload reduction. Monitor fluid balance, daily weight, GFR, and electrolytes. Left bundle branch block noted on admission which has been documented on prior ECG dating back to August 2022. High-sensitivity troponin elevated more likely secondary to demand ischemia in the setting of acute heart failure and hypoxia. Plaque rupture event not excluded however patient chest pain-free currently. Complex cardiac history with prior coronary artery bypass grafting as detailed above. Will reassess resting 2D transthoracic echocardiogram. Continue IV heparin infusion. Continue clopidogrel, metoprolol, and lisinopril. Patient currently prescribed 5 mg of lisinopril. Documented outpatient dose of 10 mg daily. Aspirin listed on patient's allergy list and possibly taking daily per review of her outpatient [facility] record, however, will await confirmation from patient or family members prior to restarting aspirin therapy. History of Present Illness Reason for Consultation: CHF Requesting Physician: Dr. Douglas King Attending Physician: Angelo Gonzalez MD History of Present Illness 62-year-old female present to the emergency department with shortness of breath. Complex cardiovascular history noted below. Patient reporting increased cough, congestion, thick sputum production in the days preceding admission. Hypoxic in the field as per EMS. Patient chronically treated with 4 L nasal cannula at home. X-ray on admission demonstrating bilateral pleural effusions. Patient treated with IV furosemide with approximately 1300cc diuresis. I evaluated the patient in the emergency department. She received intravenous Zyprexa due to agitation prior to my arrival and is somewhat sedated. She denies any chest pain currently. Troponin elevated on arrival with evidence of left bundle branch block on ECG. Interventional cardiology was contacted who recommended medical management. Heparin initiated empirically. Tolerating high flow oxygen. She is not dyspneic at rest. There are notes in the chart regarding patient's overall CODE STATUS. Apparently, family and patient did not wish to pursue aggressive treatment due to her overall declining health. Cardiovascular/medical history copied from the [facility] epic record: 1. CAD, s/p CABGx4 for multivessel disease disease 2013, with ALVARADO to LAD, SVG the RCA, SVG to OM, and SVG to diagonal 1. Ischemic cardiomyopathy, LVEF 40-45%, NYHA class 2-3 2. Hypertension with diastolic heart failure 3. Intermittent LBBB 4. Atherosclerotic carotid artery disease 1. Moderate IRENE per duplex 03/2021 ([facility]) 5. HTN 6. HLD, LDL goal below 70 7. Diabetes mellitus type 2, poorly controlled with diabetic neuropathy 8. Chronic tobacco use 9. Psycho affective disorder 10. LLE BKA due to osteomyletis, 05/15/2021 11. Hx of mitral valve endocarditis dx via TTE, 05/19/2021 -Bcx + MRSA 05/15/2021 with negative bcx 05/17/2021 -Completed 6 weeks of IV ABX -Moderate to severe MR per echo 05/16/2021 and again on 11/2021 12. Chronic normocytic anemia, baseline hbg 8.0 13.GERD Allergies Allergy/AdvReac Type Severity Reaction Status Date / Time latex Allergy Intermediate HIVES/RASH Verified 02/25/23 22:07 aspirin Allergy Unknown ON GMG MED Verified 02/25/23 22:07 LIST morphine Allergy Unknown Unknown Verified 02/25/23 22:07 oxycodone AdvReac Intermediate HALLUCINATI Verified 02/25/23 22:07 ONS Home Medications Medication Instructions Recorded Confirmed Type clopidogrel 75 mg tablet 75 mg PO DAILY 03/16/21 02/25/23 History nitroglycerin 0.4 mg sublingual 0.4 mg sublingual .PRN/UD PRN 05/14/21 02/25/23 History tablet Chest Pain melatonin 5 mg tablet 5 mg PO HS 08/02/22 02/25/23 History insulin glargine 100 unit/mL (3 35 unit subcut QAM 10/30/22 02/25/23 History mL) subcutaneous pen (Basaglar KwikPen U-100 Insulin) olanzapine 5 mg tablet 5 mg PO HS 11/16/22 02/25/23 History pantoprazole 40 mg tablet,delayed 40 mg PO DAILY 11/16/22 02/25/23 History release gabapentin 400 mg capsule 400 mg PO TID #30 caps 12/07/22 02/25/23 Rx duloxetine 30 mg capsule,delayed 30 mg PO DAILY 12/31/22 02/25/23 History release duloxetine 60 mg capsule,delayed 60 mg PO DAILY 12/31/22 02/25/23 History release furosemide 40 mg tablet 40 mg PO QAM 12/31/22 02/25/23 History isosorbide mononitrate 30 mg 30 mg PO DAILY 12/31/22 02/25/23 History tablet,extended release 24 hr lisinopril 5 mg tablet 5 mg PO QAM 12/31/22 02/25/23 History metoprolol succinate 100 mg 100 mg PO QAM 12/31/22 02/25/23 History tablet,extended release 24 hr metoprolol succinate 50 mg 50 mg PO PM 12/31/22 02/25/23 History tablet,extended release 24 hr nicotine 14 mg/24 hr daily 1 patch transdermal QA 12/31/22 02/25/23 History transdermal patch ropinirole 1 mg tablet 1 mg PO QPM 12/31/22 02/25/23 History topiramate 50 mg tablet (Topamax) 50 mg PO BID 12/31/22 02/25/23 History tramadol 50 mg tablet 50 mg PO Q6H PRN Severe Pain 12/31/22 02/25/23 History (Scale Score 7-10) Patient History Medical History Encephalopathy Acute on chronic respiratory failure with hypoxemia Multifocal pneumonia Pleural effusion Acute respiratory failure with hypoxia Pulmonary edema UTI (urinary tract infection) Right foot pain Fracture of left tibial plateau Acute on chronic HFrEF (heart failure with reduced ejection fraction) DVT prophylaxis HFrEF (heart failure with reduced ejection fraction) Abscess of aorta HTN (hypertension) Encounter for pre-operative examination History of left below knee amputation MRSA bacteremia Osteomyelitis LBBB (left bundle branch block) Carotid stenosis according to records from 2019 CEA was recommended but patient declined. no objective quantification available Tobacco use disorder Carpal tunnel syndrome, left Ulnar neuropathy at elbow of left upper extremity Anxiety Chronic congestive heart failure with left ventricular diastolic dysfunction Psychotic disorder Diabetes mellitus, type 2 Coronary artery disease Surgical History Status post ORIF of fracture of ankle R, 2017 Status post cholecystectomy Status post hysterectomy Status post coronary artery bypass grafting Family History Other Diabetes Heart disease Social History Smoking Status: Current every day smoker Tobacco Type: Cigarettes packs per day: 1; Cigarettes Per Day: 10; Second Hand Exposure: Yes; Do You Dip or Chew Tobacco: No; Preferred Language: Mauritian Communication Ability: Impaired Supply Chain Director Required: No Beliefs That Will Affect Care: None marital status: Current Living Situation: Alone Current Living Situation Comment: UNCERTAIN Feels Safe at Home: Yes Assistive Devices: Walker and Wheelchair Review of Systems Review of Systems: Unobtainable due to mental health condition Physical Exam Constitutional: + ill appearing; no acute distress Respiratory: no respiratory distress and no labored breathing Auscultation: + diminished lung sounds (Bilateral base and midlung field) and + rales (Bilateral mid lung field); no wheezes Cardiovascular: Rate/Rhythm: regular rate and regular rhythm Heart Sounds: normal S1 and normal S2; no murmur Vessels: radial pulses present; no JVD Extremities: + edema (Trace bilateral edema) Gastrointestinal (Abdomen): Inspection/Auscultation: abdomen normal to inspection and normal bowel sounds; abdomen not distended Percussion/Palpation: abdomen soft; abdomen nontender, no guarding and abdomen not rigid Neurologic: CN's II-XI intact bilaterally and moves all extremities; no focal motor deficits Results & Data Vital Signs (Past 12 Hours) Vital Signs Temp Pulse Pulse Resp BP BP Pulse Ox 02/26/23 11:38 90 22 90 02/26/23 07:38 110 H 02/26/23 07:31 02/26/23 07:31 02/26/23 07:31 36.4 C L 110 H 24 170/96 H 95 02/26/23 07:11 108 H 28 H 94 02/26/23 05:41 02/26/23 05:41 37 C 75 26 H 140/89 87 L 02/26/23 05:41 02/26/23 04:30 93 H 22 145/94 H 93 02/26/23 04:00 87 20 135/85 94 02/26/23 03:01 97 H 19 144/96 H 96 02/26/23 02:36 02/26/23 02:30 97 H 18 164/104 H 94 02/26/23 02:24 96 H 26 H 93 02/26/23 02:17 99 H 24 89 L 02/26/23 01:28 102 H 146/97 H 02/26/23 00:40 107 H 164/127 H 02/26/23 00:30 104 H 20 164/127 H 89 L 02/26/23 00:24 105 H 02/26/23 00:24 105 H 27 H 149/106 H 83 L 02/26/23 00:19 104 H 180/94 H Pulse Ox O2 Del Method O2 Del Method O2 Flow Rate O2 Flow Rate FiO2 02/26/23 11:38 High Flow Nasal Cannula 40 90 02/26/23 07:38 02/26/23 07:31 High Flow Nasal Cannula 40 02/26/23 07:31 95 High Flow Nasal Cannula 40 02/26/23 07:31 High Flow Nasal Cannula 40 90 02/26/23 07:11 High Flow Nasal Cannula 40 90 02/26/23 05:41 Oxymask 15 02/26/23 05:41 Oxymask 15 02/26/23 05:41 Oxymask 15 02/26/23 04:30 BiPAP 60 02/26/23 04:00 BiPAP 60 02/26/23 03:01 BiPAP 60 02/26/23 02:36 93 BiPAP 02/26/23 02:30 BiPAP 60 02/26/23 02:24 60 02/26/23 02:17 Oxymask 15 02/26/23 01:28 02/26/23 00:40 02/26/23 00:30 Oxymask 15 02/26/23 00:24 02/26/23 00:24 Aerosol Mask 10 02/26/23 00:19 Laboratory Results Cardiac Enzymes 02/25/23 02/25/23 02/25/23 Range/Units 20:51 21:34 21:38 AST TNP 32 Troponin I High Sens 1101.5 H* (0-14) pg/ml B-Natriuretic Peptide 711 H (0-100) pg/ml 02/25/23 Range/Units 22:56 AST Troponin I High Sens 821.4 H* D (0-14) pg/ml B-Natriuretic Peptide (0-100) pg/ml Coagulation 02/25/23 02/25/23 Range/Units 21:34 21:38 APTT 27 (21-31) Seconds B-Natriuretic Peptide 711 H (0-100) pg/ml CBC 02/25/23 02/26/23 Range/Units 21:34 03:36 WBC 10.28 9.64 (4.8-10.8) K/ul RBC 3.34 L 3.19 L (4.20-5.40) M/uL Hgb 10.3 L 9.9 L (12.0-16.0) g/dl Hct 32.7 L 31.4 L (37.0-47.0) % Plt Count 177 176 (130-400) K/uL Neut # (Auto) 6.47 8.44 H (1.40-6.50) K/uL Lymph # (Auto) 1.40 0.52 L (1.20-3.40) K/uL Bath # (Auto) 2.22 H 0.46 (0.11-0.59) K/uL Eos # (Auto) 0.03 0.00 (0.00-0.50) K/uL Baso # (Auto) 0.03 0.02 (0.00-0.20) K/uL Comprehensive Metabolic Panel 02/25/23 02/25/23 02/26/23 Range/Units 20:51 21:38 03:36 Sodium 135 L 135 L (136-145) mmol/L Potassium TNP 3.9 3.9 Chloride 101 102 (98-107) mmol/L Carbon Dioxide 25 24 (21-32) mmol/L BUN 12 15 (6-23) mg/dl Creatinine 0.79 0.87 (0.6-1.2) mg/dl Glucose 382 H* 370 H* (70-99(Fasting)) mg/dl Calcium 9.1 8.5 L (8.6-10.3) mg/dl AST TNP 32 ALT 21 (7-52) U/L Alkaline Phosphatase 69 (34-104) U/L Total Protein 7.4 (6.0-8.3) gm/dl Albumin 3.8 (3.4-5.0) gm/dl Intake and Output 02/25/23 02/26/23 02/26/23 22:59 06:59 14:59 Intake Total 200 / 300 198.233 / 198.233 Output Total 1000 / 1000 Balance 200 / 300 -801.767 / -801.767 Intake: IV 200 / 300 198.233 / 198.233 Doxycycline Hyclate 100 mg In 100 / 100 Dextrose 5% Mini-B 100 ml @ 50 mls/hr IV NOW STA Rx#:[id number] Heparin Sodium/Dextrose 25,000 98.233 / 98.233 units In 500 ml @ 700 UNITS/HR 14 mls/hr IV .Q24H [facility] Rx#: [id number] Potassium Chloride / Wtr 10 meq 100 / 200 100 / 100 In 100 ml @ 100 mls/hr IV Q1H [facility] Rx#:[id number] Output: Urine Amount (Catheter) 1000 / 1000 Brewer/Indwelling 1000 / 1000 Other: Weight 72.3 kg 72.3 kg 69.8 kg Weight Measurement Method Built in [facility] Built in [facility] Built in [facility] Patient Weight 02/27/23 06:59 Weight 69.8 kg (4) Mitral regurgitation Cardiac valve disease etiology: nonrheumatic Qualified Code(s): I34.0 - Nonrheumatic mitral (valve) insufficiency
[2023-02-26] MEDS ORDERED: INSULIN HUMAN REGULAR PER UNIT 10 UNITS in SYRINGE 9.9 ML IV ONE (12:45)
--- NOTE | 2023-02-26 13:33 | Pharmacy Report ---
Pharmacy Glycemic Short Note 2 - Date of Service February 26, 2023 - Glycemic Short BSG Results (Last 24 hours): 02/25/23 02/26/23 02/26/23 20:51 00:30 03:36 Glucose 382 H* 370 H* POC Glucose 462 H* 02/26/23 02/26/23 02/26/23 06:10 09:10 12:31 Glucose POC Glucose 381 H* 439 H* 326 H* OUTPATIENT ANTIDIABETIC REGIMEN: * Lantus 35 units SC AM * HbA1c: 9.9% (02/25/23) ASSESSMENT: * 62 yo F admitted on 02/25/23 secondary to respiratory failure. Pharmacy has been consulted to assist with inpatient glycemic management. Patient is a Type 2 diabetic as an outpatient. Please refer to outpatient regimen and most recent HbA1c above. * BSG last night was 382 mg/dL. Patient was and remains NPO. Heparin drip infusing. No abx. No steroids. * Overnight, BSGs were 462 and 370 mg/dL. Patient received two separate basal doses, one was 10 units and the other was 15 units (around 0000 and 0300). 13 units of Novolog were given for the BSG of 462 mg/dL. * Fasting was 381 mg/dL this AM. Will give another 10 units basal to equal total daily dose of 35 units today (matches home regimen). Also gave a 5 unit IV push of insulin this morning. Potassium was 3.9 so no replacement was ordered. Novolog was tightened as well. * Lunchtime BSG was 326 mg/dL, improved but not close to goal. Will not tighten Novolog or Lantus further at this point as patient is receiving much more insulin than used to at home. A1c is not at goal so home basal dose may not be adequate. Plan to give a 10 unit IV push of insulin with lunch in addition to Novolog coverage. Spoke with provider and will give 2 K-riders empirically given second IV bolus of the day. Hopefully, this will help bring BSGs down below 250 mg/dL. * Will have second shift pharmacist review dinner BSG and plan to start IV insulin infusion if BSG > 300 mg/dL. May possibly need more basal at bedtime. PLAN FOR INPATIENT GLYCEMIC CONTROL: * Basal insulin * Lantus 35 units SC total today * Bolus insulin * NovoLog per scale ACHS or Q6hrs while NPO * Goal Range: Low 110 mg/dL - High 140 mg/dL * Correction Factor: 20 mg/dL/unit * Nutritional / Prandial insulin per carb ratio of 1 unit per 7 grams CHO consumed
[2023-02-26 13:35] LABS: ANTI-Xa, UFH(UnfractionatedHep 0.26 IU/ml (0.3-0.7)
[2023-02-26] MEDS: NITROGLYCERIN 2% OINTMENT 30GM TUBE EXT SCH ×3 (13:58→23:56)
--- NOTE | 2023-02-26 17:15 | Hospitalist Progress Note ---
Date of Service February 26, 2023 Assessment & Plan (1) Respiratory failure: Plan: acute on chronic hypoxemic respiratory failure secondary to decompensated heart failure, hx diastolic dysfunction BNP 800s Respiratory panel negative Echocardiogram: Pending Lasix 40 mg IV daily Budesonide, Perforomist Medical Claims Examiner and pulmonary service consult Continue high flow O2, wean off accordingly Troponin elevation secondary to above Possible NSTEMI given patient chest pain complaints expressed to ER provider. -- Denies active chest pain on exam --Continue IV heparin Nitropaste ordered hx CAD status post CABG, PVD Hypertension elevated secondary illness valvular heart disease (moderate to severe MR) history mitral valve endocarditis/periaortic abscess as per records chronic LBBB hx COPD on home O2/ISAURA on CPAP Chronic anemia, hemoglobin at baseline hyperlipidemia, on statin Rx mood disorder/paranoia as per records ongoing tobacco abuse DVT prophylaxis. Heparin Full code Admission and Anticipated Discharge Date Admission Date: February 25, 2023 Subjective ff up for CHF, etc seen resting in bed, on high flow o2 Not in distress Was not tolerating BiPAP States breathing is improving compared to yesterday Has intermittent cough, no sputum, no fevers or chills No other new symptom Review of Systems Review of Systems: all noted and negative except for above Physical Exam Physical Exam: General- oriented x1-2, not in distress, speaks in sentences with no effort or accessory muscle use Eyes- anicteric Neck- no JVD Lungs-diminished breath sounds, decreased breath sounds bilateral bases No wheezing Heart- normal rate, regular rhythm; no murmurs Abdomen- normal bowel sounds, nondistended, soft, nontender Extremities- trace pretibial edema, no calf tenderness Neuro- alert, oriented x 3; no gross focal neurologic deficits Skin- warm & dry Results & Data Results & Data Vital Signs (Past 12 Hours) Vital Signs Temp Pulse Pulse Resp BP Pulse Ox Pulse Ox 02/26/23 14:35 20 90 02/26/23 13:59 92 H 22 133/77 89 L 02/26/23 12:34 78 14 94/68 L 89 L 02/26/23 11:38 90 22 90 02/26/23 07:38 110 H 02/26/23 07:31 02/26/23 07:31 95 02/26/23 07:31 36.4 C L 110 H 24 170/96 H 95 02/26/23 07:11 108 H 28 H 94 02/26/23 05:41 02/26/23 05:41 37 C 75 26 H 140/89 87 L 02/26/23 05:41 O2 Del Method O2 Del Method O2 Flow Rate O2 Flow Rate FiO2 02/26/23 14:35 High Flow Nasal Cannula 50 100 02/26/23 13:59 High Flow Nasal Cannula 50 90 02/26/23 12:34 High Flow Nasal Cannula 40 90 02/26/23 11:38 High Flow Nasal Cannula 40 90 02/26/23 07:38 02/26/23 07:31 High Flow Nasal Cannula 40 02/26/23 07:31 High Flow Nasal Cannula 40 02/26/23 07:31 High Flow Nasal Cannula 40 90 02/26/23 07:11 High Flow Nasal Cannula 40 90 02/26/23 05:41 Oxymask 15 02/26/23 05:41 Oxymask 15 02/26/23 05:41 Oxymask 15 all noted and reviewed including below
[2023-02-26] MEDS: BUDESONIDE 0.5 MG/2 ML VIAL (PULMICORT) NEB SCH (19:25)
[2023-02-26] MEDS: OLANZapine 5 MG TABLET PO SCH (20:15)
[2023-02-26] MEDS: rOPINIRole HCL 1 MG TABLET PO SCH (20:16)
[2023-02-26 20:53] LABS: ANTI-Xa, UFH(UnfractionatedHep 0.27 IU/ml (0.3-0.7)
[2023-02-26] MEDS ORDERED: LANTUS PER UNIT CHARGE SQ SCH (21:00)
--- NOTE | 2023-02-26 21:06 | Electrocardiogram Report ---
Test Reason : Blood Pressure : / mmHG Vent. Rate : 108 BPM Atrial Rate : 108 BPM P-R Int : 132 ms QRS Dur : 146 ms QT Int : 382 ms P-R-T Axes : 050 -19 113 degrees QTc Int : 511 ms Sinus tachycardia Left bundle branch block Abnormal ECG When compared with ECG of 03-JAN-2023 05:40, Premature ventricular complexes are no longer Present Left bundle branch block is now Present Confirmed by Tacho Cervantes ([id number]) on 02/26/2023 9:06:41 PM Referred By: REFERRED SELF Confirmed By:Tacho Cervantes
--- NOTE | 2023-02-26 21:08 | Electrocardiogram Report ---
Test Reason : Blood Pressure : / mmHG Vent. Rate : 102 BPM Atrial Rate : 102 BPM P-R Int : 134 ms QRS Dur : 146 ms QT Int : 408 ms P-R-T Axes : 050 -30 110 degrees QTc Int : 531 ms Sinus tachycardia Left axis deviation Left bundle branch block Abnormal ECG When compared with ECG of 25-FEB-2023 20:40, (unconfirmed) No significant change was found Confirmed by Tacho Cervantes ([id number]) on 02/26/2023 9:08:35 PM Referred By: REFERRED SELF Confirmed By:Tacho Cervantes
[2023-02-27 04:40] LABS: ANTI-Xa, UFH(UnfractionatedHep 0.38 IU/ml (0.3-0.7)
[2023-02-27] MEDS: INSULIN ASPART PER UNIT CHARGE SC SCH ×4 (06:08→21:01)
[2023-02-27] MEDS: NITROGLYCERIN 2% OINTMENT 30GM TUBE EXT SCH ×2 (06:10→12:24)
[2023-02-27] MEDS: BUDESONIDE 0.5 MG/2 ML VIAL (PULMICORT) NEB SCH ×2 (07:36→19:04)
[2023-02-27] MEDS: FORMOTEROL 20 MCG/2 ML VIAL NEB SCH ×2 (07:36→19:04)
[2023-02-27] MEDS: CLOPIDOGREL BISULFATE 75 MG TAB PO SCH (08:21)
[2023-02-27] MEDS: DULoxetine HCL 30 MG CAP PO SCH (08:21)
[2023-02-27] MEDS: DULoxetine HCL 60 MG CAP PO SCH (08:21)
[2023-02-27] MEDS: GABAPENTIN 400 MG CAP PO SCH ×3 (08:23→20:19)
[2023-02-27] MEDS: FUROSEMIDE 40 MG/4 ML VIAL IV SCH ×2 (08:23→20:19)
[2023-02-27] MEDS: PANTOprazole 40 MG TAB PO SCH (08:24)
[2023-02-27] MEDS: NICOTINE 14 MG/24 HR PATCH TD SCH (08:24)
[2023-02-27] MEDS: TOPIRAMATE 50 MG TAB PO SCH ×2 (08:25→20:19)
[2023-02-27] MEDS: METOPROLOL SUCC 50MG EXT REL TAB PO SCH ×2 (08:29→20:19)
[2023-02-27] MEDS ORDERED: LANTUS PER UNIT CHARGE SC SCH (09:00)
[2023-02-27] MEDS: lisinopril 5 MG TAB PO SCH (09:15)
[2023-02-27 10:52] LABS: Calcium 8.1 mg/dl (8.6-10.3); Creatinine Clr Calc Pharmacy 50.3 ml/min; Est GFR (Non-African American) 56.1 ml/min; Potassium 3.7 mmol/L (3.5-5.1)
[2023-02-27 10:58] LABS: Hematocrit (blood only) 28.5 % (37.0-47.0); Hemoglobin 8.7 g/dl (12.0-16.0); Mean Corpuscular Hgb Conc 30.5 g/dL (32.0-36.0); Mean Corpuscular Volume 101.4 fL (80.0-100.0); Mean Platelet Volume 12.9 fL (9.4-12.4); Nucleated RBC # (auto) 0.04 K/uL (0.00-0.12); Nucleated RBC % (auto) 0.3 %; Platelet Count 159 K/uL (130-400); RDW Coefficient of Variation 16.7 % (11.5-14.5); RDW Standard Deviation 60.3 fL (36.4-46.3); Red Blood Count 2.81 M/uL (4.20-5.40); White Blood Count 12.63 K/ul (4.8-10.8)
--- NOTE | 2023-02-27 11:30 | Palliative Care Consultation ---
Date of Consultation February 27, 2023 Assessment & Plan (1) Acute and chronic respiratory failure with hypoxia: Acute on Chronic Repository Failure - likely multifactorial in the setting of HFpEF and COPD - continue with diuresis as per cardiology, pulmonology and primary team - currently on 50L HFNC; wean as tolerating. Goal is home if able to wean to [place]. Baseline 4L at home (2) Goals of care, counseling/discussion: Discussion with patient about goals of care. Her goal is home with home health services, would consider Hospice. She states that her top priorotiy is to be able to go home and would like to avoid further hospitalizations. Would like to maintain as much independence as possible. Will see if able to wean off of HFNC to a point where she is able to go home. (3) Acute on chronic heart failure with preserved ejection fraction (HFpEF): - contributing factor to acute on chronic repository failure and pleural effusions - continue with diuresis as per cardiology, pulmonology and primary team (4) Non-ST elevation myocardial infarction (NSTEMI): - currently on heparin drip, management as per cardiology/primary team (5) Pleural effusion, bilateral: - likley secondary to HFpEF - continue with diuresis as per cardiology, pulmonology and primary team Supervising Physician Co-Signing Physician Notes Pt seen together with Dr Hewitt during Palliative medicine rounds. The above note reflects our joint consultation and examination of this patient. Please see my separate note for additional details. Thank you for allowing us to participate in the ongoing care of this patient. Please don't hesitate to call or page with any additional concerns. Dr. Belem Up DNP Director, Palliative Care History of Present Illness Reason for Consultation: [facility] Attending Physician: Angelo Gonzalez MD History of Present Illness 62 year old female with a past medical history of HFpEF, DM 2, PVD, COPD, CAD s/p CABG currently admitted with acute hypoxic respiratory failure. This is her 5th admissions in the past 6 month for similar presentations. She has a history of HFpEF and on admission had B/L pleural effusions for which she is currently being diuresed. She is also currently being treated for an NSTEMI with a heparin drip. At bedside this morning patient states that she is doing well. Notes that her mouth/nose are dry and throat is a little sore, but otherwise no complaints. She is clear that her goal is to get back home and stay at home. She would like to try and avoid coming back to the hospital. She notes that she would want to focus on being comfortable at home and also notes that having as much independence as possible is also important to her. She lives alone in a 2 story building, notes that she only uses the first floor, does not go up the steps. Has a bedroom, kitchen and bathroom on the first floor. She has one dog. She uses a wheelchair for mobility at home. She is independent with the majority of her ADLs; dressing, bathing, toileting. Her daughters help if needed and do her laundry and housework for her. She also has neighbors that will help her if needed. She does not currently have any home health services, but would be willing to have services set up if it would help to get home and help to maintain her independence at home. Allergies Allergy/AdvReac Type Severity Reaction Status Date / Time latex Allergy Intermediate HIVES/RASH Verified 02/25/23 22:07 aspirin Allergy Unknown ON [facility] MED Verified 02/25/23 22:07 LIST morphine Allergy Unknown Unknown Verified 02/25/23 22:07 oxycodone AdvReac Intermediate HALLUCINATI Verified 02/25/23 22:07 ONS Home Medications Medication Instructions Recorded Confirmed Type clopidogrel 75 mg tablet 75 mg PO DAILY 03/16/21 02/25/23 History nitroglycerin 0.4 mg sublingual 0.4 mg sublingual .PRN/UD PRN 05/14/21 02/25/23 History tablet Chest Pain melatonin 5 mg tablet 5 mg PO HS 08/02/22 02/25/23 History insulin glargine 100 unit/mL (3 35 unit subcut QAM 10/30/22 02/25/23 History mL) subcutaneous pen (Basaglar KwikPen U-100 Insulin) olanzapine 5 mg tablet 5 mg PO HS 11/16/22 02/25/23 History pantoprazole 40 mg tablet,delayed 40 mg PO DAILY 11/16/22 02/25/23 History release gabapentin 400 mg capsule 400 mg PO TID #30 caps 12/07/22 02/25/23 Rx duloxetine 30 mg capsule,delayed 30 mg PO DAILY 12/31/22 02/25/23 History release duloxetine 60 mg capsule,delayed 60 mg PO DAILY 12/31/22 02/25/23 History release furosemide 40 mg tablet 40 mg PO QAM 12/31/22 02/25/23 History isosorbide mononitrate 30 mg 30 mg PO DAILY 12/31/22 02/25/23 History tablet,extended release 24 hr lisinopril 5 mg tablet 5 mg PO QAM 12/31/22 02/25/23 History metoprolol succinate 100 mg 100 mg PO QAM 12/31/22 02/25/23 History tablet,extended release 24 hr metoprolol succinate 50 mg 50 mg PO PM 12/31/22 02/25/23 History tablet,extended release 24 hr nicotine 14 mg/24 hr daily 1 patch transdermal QAM 12/31/22 02/25/23 History transdermal patch ropinirole 1 mg tablet 1 mg PO QPM 12/31/22 02/25/23 History topiramate 50 mg tablet (Topamax) 50 mg PO BID 12/31/22 02/25/23 History tramadol 50 mg tablet 50 mg PO Q6H PRN Severe Pain 12/31/22 02/25/23 History (Scale Score 7-10) Patient History Medical History Encephalopathy Acute on chronic respiratory failure with hypoxemia Multifocal pneumonia Pleural effusion Acute respiratory failure with hypoxia Pulmonary edema UTI (urinary tract infection) Right foot pain Fracture of left tibial plateau Acute on chronic HFrEF (heart failure with reduced ejection fraction) DVT prophylaxis HFrEF (heart failure with reduced ejection fraction) Abscess of aorta HTN (hypertension) Encounter for pre-operative examination History of left below knee amputation MRSA bacteremia Osteomyelitis LBBB (left bundle branch block) Carotid stenosis according to records from 2019 CEA was recommended but patient declined. no objective quantification available Tobacco use disorder Carpal tunnel syndrome, left Ulnar neuropathy at elbow of left upper extremity Anxiety Chronic congestive heart failure with left ventricular diastolic dysfunction Psychotic disorder Diabetes mellitus, type 2 Coronary artery disease Surgical History Status post ORIF of fracture of ankle R, 2017 Status post cholecystectomy Status post hysterectomy Status post coronary artery bypass grafting Family History Other Diabetes Heart disease Social History (Reviewed 02/26/23 @ 11:47 by MELVI Abdi Smoking Status: Current every day smoker Tobacco Type: Cigarettes packs per day: 1; Cigarettes Per Day: 10; Second Hand Exposure: Yes; Do You Dip or Chew Tobacco: No; Preferred Language: [place] Communication Ability: Effective Television Antenna Installer Required: No Beliefs That Will Affect Care: None marital status: Current Living Situation: Alone Current Living Situation Comment: UNCERTAIN Feels Safe at Home: Yes Assistive Devices: Oxygen - Continuous, Prosthesis, Walker and Wheelchair Review of Systems Review of Systems: As per above Physical Exam Physical Exam: Constitutional: well-appearing, no acute distress HEENT: NCAT, no conjunctival injection CV: regular rhythm, no murmur appreciated no LE edema Resp: = rhonchi, rales B/L lower lung denton, no wheezes appreciated, no increased work of breathing MSK: no gross deformities appreciated. Left BKA Skin: warm, dry, no rash appreciated. Ulcer present right 2th toe. Neuro: alert, oriented, no focal neurologic deficit appreciated Results & Data Vital Signs (Past 12 Hours) Vital Signs Temp Pulse Resp BP BP Pulse Ox Pulse Ox 02/27/23 10:45 36.3 C L 64 19 104/65 97 02/27/23 08:28 68 108/71 02/27/23 08:00 02/27/23 08:00 02/27/23 07:37 63 20 98 02/27/23 07:11 36.4 C L 58 L 17 95/60 L 97 02/27/23 07:00 80 L 02/27/23 03:30 36.3 C L 67 19 103/57 L 100 02/27/23 02:10 65 20 97 02/27/23 00:00 99 02/26/23 23:38 36.2 C L 75 20 99/62 L 100 O2 Del Method O2 Del Method O2 Flow Rate O2 Flow Rate FiO2 02/27/23 10:45 High Flow Nasal Cannula 80 02/27/23 08:28 02/27/23 08:00 High Flow Nasal Cannula 50 80 02/27/23 08:00 High Flow Nasal Cannula 50 02/27/23 07:37 High Flow Nasal Cannula 55 90 02/27/23 07:11 High Flow Nasal Cannula 90 02/27/23 07:00 High Flow Nasal Cannula 50 02/27/23 03:30 High Flow Nasal Cannula 55 90 01/15/24 02:10 High Flow Nasal Cannula 55 90 02/27/23 00:00 Other 50 02/26/23 23:38 High Flow Nasal Cannula 60 100
[2023-02-27 12:41] LABS: Basophils # (auto) 0.02 K/uL (0.00-0.20); Basophils % (auto) 0.2 %; Eosinophils # (auto) 0.01 K/uL (0.00-0.50); Eosinophils % (auto) 0.1 %; Immature Granulocytes # (auto) 0.18 K/uL (0.01-0.20); Immature Granulocytes % (auto) 1.4 %; Lymphocytes # (auto) 1.87 K/uL (1.20-3.40); Lymphocytes % (auto) 14.8 %; Monocytes # (auto) 3.29 K/uL (0.11-0.59); Neutrophils # (auto) 7.26 K/uL (1.40-6.50); Neutrophils % (auto) 57.5 %; Polychromasia 2+; Toxic Vacuolation 3+
--- NOTE | 2023-02-27 13:14 | Pharmacy Report ---
Pharmacy Glycemic Short Note 2 - Date of Service February 27, 2023 - Glycemic Short BSG Results (Last 24 hours): 02/26/23 02/26/23 02/26/23 13:50 17:57 20:22 Glucose POC Glucose 344 H* 112 H 153 H 02/26/23 02/27/23 02/27/23 23:44 03:33 05:58 Glucose 128 H POC Glucose 212 H 162 H 02/27/23 12:21 Glucose POC Glucose 136 H OUTPATIENT ANTIDIABETIC REGIMEN: * Lantus 35 units SC AM * HbA1c: 9.9% (02/25/23) ASSESSMENT: 02/27 * BSGs have trended downward with multiple doses of IV insulin+ home lantus given yesterday. * Fasting this AM 162 mg/dL- patient is now NPO, will scale to ~80% of home dose * Continue current novolog parameters, noon check 136 mg/dL 02/26 * 62 yo F admitted on 02/25/23 secondary to respiratory failure. Pharmacy has been consulted to assist with inpatient glycemic management. Patient is a Type 2 diabetic as an outpatient. Please refer to outpatient regimen and most recent HbA1c above. * BSG last night was 382 mg/dL. Patient was and remains NPO. Heparin drip infusing. No abx. No steroids. * Overnight, BSGs were 462 and 370 mg/dL. Patient received two separate basal doses, one was 10 units and the other was 15 units (around 0000 and 0300). 13 units of Novolog were given for the BSG of 462 mg/dL. * Fasting was 381 mg/dL this AM. Will give another 10 units basal to equal total daily dose of 35 units today (matches home regimen). Also gave a 5 unit IV push of insulin this morning. Potassium was 3.9 so no replacement was ordered. Novolog was tightened as well. * Lunchtime BSG was 326 mg/dL, improved but not close to goal. Will not tighten Novolog or Lantus further at this point as patient is receiving much more insulin than used to at home. A1c is not at goal so home basal dose may not be adequate. Plan to give a 10 unit IV push of insulin with lunch in addition to Novolog coverage. Spoke with provider and will give 2 K-riders empirically given second IV bolus of the day. Hopefully, this will help bring BSGs down below 250 mg/dL. * Will have second shift pharmacist review dinner BSG and plan to start IV insulin infusion if BSG > 300 mg/dL. May possibly need more basal at bedtime. PLAN FOR INPATIENT GLYCEMIC CONTROL: * Basal insulin * Lantus 15 units x 1 this AM, scale for PM 10/15 units * Bolus insulin * NovoLog per scale ACHS or Q6hrs while NPO * Goal Range: Low 110 mg/dL - High 140 mg/dL * Correction Factor: 25 mg/dL/unit * Nutritional / Prandial insulin per carb ratio of 1 unit per 7 grams CHO consumed
[2023-02-27] MEDS ORDERED: Nursing to Pharmacy Communication SCH (14:15)
--- NOTE | 2023-02-27 14:19 | Pulmonology Progress Note ---
Date of Service February 27, 2023 Assessment & Plan (1) Respiratory failure: (2) Acute and chronic respiratory failure with hypoxia: (3) CHF (congestive heart failure): Heart failure chronicity: acute on chronic Heart failure type: unspecified Qualified Code(s): I50.9 - Heart failure, unspecified (4) Encephalopathy: Plan Impression: 62-year-old female with multifactorial hypoxemia and shortness of breath. Her chest x-ray demonstrates low lung volumes with cardiomegaly and probable bilateral pleural effusions. She is being treated empirically for elevated cardiac enzymes on blood work. Her last echocardiogram was performed back in October 2022 which demonstrated moderate to severe MR and EF of 55 to 60% mild aortic sclerosis without stenosis. Significant diastolic dysfunction was identified. She now has what appears to be fluid overload with bilateral pleural effusions low lung volumes and basilar atelectasis with cardiomegaly and pulmonary vascular congestion and hypoxemia requiring high flow. Troponin was mildly elevated. BNP mildly elevated and procalcitonin negative. Recommendations: 1. Hypoxemic respiratory failure: Continue diuresis. Defer diuretic dosing to primary team and cardiology. 2. COPD: Patient does not appear bronchospastic currently. Do not see an indication for systemic steroids at this point in time. Can continue nebulized bronchodilators in the form of budesonide and Perforomist and as needed DuoNebs. 3. Can consider thoracentesis in radiology department in the next 1-2 days if no significant diuresis is achieved. D/W Dr. Combs of cardiology and bedside RN, Serg. Admission and Anticipated Discharge Date Admission Date: February 25, 2023 Subjective She denies any shortness of breath at rest. Remains on high flow oxygen with sats in the low 90s. She has essentially been bedbound for the past 24 hours. Denies any significant cough. No fevers or chills. Patient asking for a soda. Review of Systems Review of Systems: All systems reviewed & are unremarkable except as noted in HPI & below Physical Exam Constitutional: Patient appears in poor general frail condition. Neck: trachea midline, no thyromegaly Respiratory: + respiratory distress and + tachypneic Auscultation: + diminished lung sounds, + crackles and + rhonchi Diminished at the bases Cardiovascular: Heart Sounds: normal S1, normal S2 and + murmur Extremities: + edema Gastrointestinal (Abdomen): normal bowel sounds, soft, nontender, no hepatosplenomegaly Musculoskeletal: Lower extremity wound is dressed Skin: no rashes, warm and dry Lymphatic: no cervical lymphadenopathy Results & Data Results & Data Vital Signs (Past 12 Hours) Vital Signs Temp Pulse Resp BP BP Pulse Ox Pulse Ox 02/27/23 11:00 63 20 95 02/27/23 10:45 36.3 C L 64 19 104/65 97 02/27/23 08:28 68 108/71 02/27/23 08:00 02/27/23 08:00 02/27/23 07:37 63 20 98 02/27/23 07:11 36.4 C L 58 L 17 95/60 L 97 02/27/23 07:00 80 L 02/27/23 03:30 36.3 C L 67 19 103/57 L 100 O2 Del Method O2 Del Method O2 Flow Rate O2 Flow Rate FiO2 02/27/23 11:00 High Flow Nasal Cannula 50 80 02/27/23 10:45 High Flow Nasal Cannula 80 02/27/23 08:28 02/27/23 08:00 High Flow Nasal Cannula 50 80 02/27/23 08:00 High Flow Nasal Cannula 50 02/27/23 07:37 High Flow Nasal Cannula 55 90 02/27/23 07:11 High Flow Nasal Cannula 90 02/27/23 07:00 High Flow Nasal Cannula 50 02/27/23 03:30 High Flow Nasal Cannula 55 90 PG Care Time/CCT Total # of Minutes Spent Total Time Spent with Patient: Total time spent is greater than 50% in coordination of care (as documented) at patient's floor/unit and/or counseling patient: Coding Level of Care Code 46342 SUB INP/OBS CARE 2/35MIN Diagnoses Respiratory failure J96.90 Acute and chronic respiratory failure with hypoxia J96.21 CHF (congestive heart failure) I50.9 Heart failure chronicity: acute on chronic Heart failure type: unspecified Encephalopathy G93.40
--- NOTE | 2023-02-27 14:51 | Palliative Care Consultation ---
Date of Consultation February 27, 2023 Assessment & Plan (1) Dyspnea and respiratory abnormalities: remains on HFNC would like to return home, was on NC 4lpm COP Will need HFNC weaned back to NC under 10lpm to be able to return home (2) Generalized weakness: (3) Advanced care planning/counseling discussion: Met with Rizwana at bedside for ACP face to face x 45min She is well versed on her illness. She tells me the goals she has for herself are to remain in her home, avoid return to hospital and she does not desire any aggressive or invasive interventions. She has a Sheltie dog who is a faithful screwhead stoner and polisher and her daughters are able to help her as needed. Her home is 2 story but she lives on main floor and has everything she needs on that floor. She has additional support from friends and neighbors. We discussed the goals of hospice as a patient service and the goals of care; we discussed EOL trajectories and transitions jocelin the emotional impact of realizing mortality as a concrete reality from prior abstract considerations. Pt was reassured that no matter where they are along this trajectory, they are not alone - their medical team will remain by their side through their journey. Discussed the pros/cons of accepting help when especially weakened and distressed by pain-which would also help provide relief/decrease caregiver burden/strain. I provided education about the hospice benefit: an interdisciplinary program offered by nurses, nurses aides, social workers, chaplains and a biomedical equipment specialist for patients with a terminal condition and a life expectancy of less than 6 months. This is covered by Medicare at 100%/no out of pocket expense to patient and all meds/supplies needed by patient for the reason they are on hospice are paid for/covered by hospice. The goal is assure quality of life of the patient in their home setting (home, [place] [facility], inpatient hospice setting) by providing symptoms management, psychosocial and spiritual support. However, they cannot offer 24 hours care and if the family is unable to provide that care, they will have to consider personal care with out of pocket cost vs. [place] [facility] placement. We discussed the goals of hospice as a patient service and the goals of care; we discussed EOL trajectories and transitions jocelin the emotional impact of realizing mortality as a concrete reality from prior abstract considerations. Pt was reassured that no matter where they are along this trajectory, they are not alone - their medical team will remain by their side through their journey. Discussed the pros/cons of accepting help when especially weakened and distressed by pain-which would also help provide relief/decrease caregiver burden/strain. She is open to hospice as a plan of care at dc We spoke about current limitation of HFNC and how this impedes dc for now, hopeful it can be weaned in the days ahead and bring her back down to nasal cannula. We spoke about potential decisions we may need to think about if HFNC cannot be weaned. (4) Impaired gait and mobility: BKA, Left uses walker and wheelchair at home does not have prosthetic limb (5) Palliative care by specialist: Met with pt and provided overview of Palliative Medicine, a subspecialty that provides specialized medical care for people living with a serious illness by offering a focus on quality of life. Palliative Medicine is often conflated with hospice: I advised patient/family that Palliative and hospice can be partners but we are not the same. It is important to understand the difference so that we may be informed, and not afraid. Palliative Medicine works to improve QOL through reduction of symptom burden/more control over their illness, for both the patient and family. Palliative medicine clinicians are board certified, specially-trained and another member of the patient's medical care team. We often provide an extra layer of support because our care is based on the needs of the patient, not the prognosis; as such, it's appropriate at any age/advancing stage of a serious illness and can be provided along with curative treatment. Palliative Medicine clinicians are also trained in advanced communication methodologies, to facilitate complex discussions about advanced illness planning, which are needed to help assure that the treatment choices match the patient's goals, aka delivering Goal Concordant care. Finally, we discussed that hospice is a visiting nurse service that focuses on care delivered at the very end of life for patients with terminal illness, with life expectancy less than 6 month. (6) Tobacco use disorder: Plan Home with hospice when stable Dtr to be updated by phone Discussed possibility of HFNC not successfully weaning but for now remains hopeful she can get back home Updated primary team and nursing Patient was seen on palliative rounds with Dr Hewitt Family Med Resident, please see her note for additional deatils/this was also cosigned by me Thank you for allowing us to participate in the ongoing care of this patient. Please don't hesitate to call or page with any additional concerns. Dr. Belem Up DNP Director, Palliative Care History of Present Illness Attending Physician: Angelo Gonzalez MD History of Present Illness Palliative Medicine Note Rizwana is a 62yo female with cardiopulmonary disease and vascular disease s/p BKA of left lower extremity, prior coronary artery bypass grafting who is admitted with multifactorial hypoxemia and shortness of breath. Her chest x-ray demonstrates low lung volumes with cardiomegaly and bilateral pleural effusions. She has fluid overload with bilateral pleural effusions low lung volumes, basilar atelectasis with cardiomegaly, pulmonary vascular congestion & hypoxemia requiring high flow. Troponin was mildly elevated. BNP mildly elevated and procalcitonin negative. From [facility]: 1. CAD, s/p CABGx4 for multivessel disease disease 2013, with ALVARADO to LAD, SVG the RCA, SVG to OM, and SVG to diagonal 1. Ischemic cardiomyopathy, LVEF 40-45%, NYHA class 2-3 2. Hypertension with diastolic heart failure 3. Intermittent LBBB 4. Atherosclerotic carotid artery disease 1. Moderate IRENE per duplex 03/2021 ([facility]) 5. HTN 6. HLD, LDL goal below 70 7. Diabetes mellitus type 2, poorly controlled with diabetic neuropathy 8. Chronic tobacco use 9. Psycho affective disorder 10. LLE BKA due to osteomyletis, 05/15/2021 11. Hx of mitral valve endocarditis dx via TTE, 05/19/2021 -Bcx + MRSA 05/15/2021 with negative bcx 05/17/2021 -Completed 6 weeks of IV ABX -Moderate to severe MR per echo 05/16/2021 and again on 11/2021 12. Chronic normocytic anemia, baseline hbg 8.0 13.GERD Echo Oct 2022: moderate to severe MR and EF of 55 to 60% mild aortic sclerosis without stenosis. Significant diastolic dysfunction was identified. Allergies Allergy/AdvReac Type Severity Reaction Status Date / Time latex Allergy Intermediate HIVES/RASH Verified 02/25/23 22:07 aspirin Allergy Unknown ON GMG MED Verified 02/25/23 22:07 LIST morphine Allergy Unknown Unknown Verified 02/25/23 22:07 oxycodone AdvReac Intermediate HALLUCINATI Verified 02/25/23 22:07 ONS Home Medications Medication Instructions Recorded Confirmed Type clopidogrel 75 mg tablet 75 mg PO DAILY 03/16/21 02/25/23 History nitroglycerin 0.4 mg sublingual 0.4 mg sublingual .PRN/UD PRN 05/14/21 02/25/23 History tablet Chest Pain melatonin 5 mg tablet 5 mg PO HS 08/02/22 02/25/23 History insulin glargine 100 unit/mL (3 35 unit subcut QAM 10/30/22 02/25/23 History mL) subcutaneous pen (Basaglar KwikPen U-100 Insulin) olanzapine 5 mg tablet 5 mg PO HS 11/16/22 02/25/23 History pantoprazole 40 mg tablet,delayed 40 mg PO DAILY 11/16/22 02/25/23 History release gabapentin 400 mg capsule 400 mg PO TID #30 caps 12/07/22 02/25/23 Rx duloxetine 30 mg capsule,delayed 30 mg PO DAILY 12/31/22 02/25/23 History release duloxetine 60 mg capsule,delayed 60 mg PO DAILY 12/31/22 02/25/23 History release furosemide 40 mg tablet 40 mg PO QAM 12/31/22 02/25/23 History isosorbide mononitrate 30 mg 30 mg PO DAILY 12/31/22 02/25/23 History tablet,extended release 24 hr lisinopril 5 mg tablet 5 mg PO QAM 12/31/22 02/25/23 History metoprolol succinate 100 mg 100 mg PO QAM 12/31/22 02/25/23 History tablet,extended release 24 hr metoprolol succinate 50 mg 50 mg PO PM 12/31/22 02/25/23 History tablet,extended release 24 hr nicotine 14 mg/24 hr daily 1 patch transdermal QA 12/31/22 02/25/23 History transdermal patch ropinirole 1 mg tablet 1 mg PO QPM 12/31/22 02/25/23 History topiramate 50 mg tablet (Topamax) 50 mg PO BID 12/31/22 02/25/23 History tramadol 50 mg tablet 50 mg PO Q6H PRN Severe Pain 12/31/22 02/25/23 History (Scale Score 7-10) Patient History Medical History Encephalopathy Acute on chronic respiratory failure with hypoxemia Multifocal pneumonia Pleural effusion Acute respiratory failure with hypoxia Pulmonary edema UTI (urinary tract infection) Right foot pain Fracture of left tibial plateau Acute on chronic HFrEF (heart failure with reduced ejection fraction) DVT prophylaxis HFrEF (heart failure with reduced ejection fraction) Abscess of aorta HTN (hypertension) Encounter for pre-operative examination History of left below knee amputation MRSA bacteremia Osteomyelitis LBBB (left bundle branch block) Carotid stenosis according to records from 2019 CEA was recommended but patient declined. no objective quantification available Tobacco use disorder Carpal tunnel syndrome, left Ulnar neuropathy at elbow of left upper extremity Anxiety Chronic congestive heart failure with left ventricular diastolic dysfunction Psychotic disorder Diabetes mellitus, type 2 Coronary artery disease Surgical History Status post ORIF of fracture of ankle R, 2017 Status post cholecystectomy Status post hysterectomy Status post coronary artery bypass grafting Family History Other Diabetes Heart disease Social History Smoking Status: Current every day smoker Tobacco Type: Cigarettes packs per day: 1; Cigarettes Per Day: 10; Second Hand Exposure: Yes; Do You Dip or Chew Tobacco: No; Preferred Language: Indian Communication Ability: Effective Cripple Chaser Required: No Beliefs That Will Affect Care: None marital status: Current Living Situation: Alone Current Living Situation Comment: UNCERTAIN Feels Safe at Home: Yes Assistive Devices: Oxygen - Continuous, Prosthesis, Walker and Wheelchair Physical Exam Physical Exam: Rizwana is seen lying in bed, on HFNC She is dyspneic with conversation Bitemp wasting PERRLA EOMIs diminished bilat breath sounds bilat, few crackles S1S2 abd soft, BS+ Left BKA, well healed stump Right foot with redness, cool to touch, scabbing lesion on toe, no breakdown in between; +vascular insuff changes Right hand/thenar aspect +lesion, sl open, non tender per pt AAOx3 skin otherwise pale, dry, warm Results & Data Vital Signs (Past 12 Hours) Vital Signs Temp Pulse Resp BP BP Pulse Ox Pulse Ox 02/27/23 11:00 63 20 95 02/27/23 10:45 36.3 C L 64 19 104/65 97 02/27/23 08:28 68 108/71 02/27/23 08:00 02/27/23 08:00 02/27/23 07:37 63 20 98 02/27/23 07:11 36.4 C L 58 L 17 95/60 L 97 02/27/23 07:00 80 L 02/27/23 03:30 36.3 C L 67 19 103/57 L 100 O2 Del Method O2 Del Method O2 Flow Rate O2 Flow Rate FiO2 02/27/23 11:00 High Flow Nasal Cannula 50 80 02/27/23 10:45 High Flow Nasal Cannula 80 02/27/23 08:28 02/27/23 08:00 High Flow Nasal Cannula 50 80 02/27/23 08:00 High Flow Nasal Cannula 50 02/27/23 07:37 High Flow Nasal Cannula 55 90 02/27/23 07:11 High Flow Nasal Cannula 90 02/27/23 07:00 High Flow Nasal Cannula 50 02/27/23 03:30 High Flow Nasal Cannula 55 90 Laboratory Results data reviewed, see HPI Diagnostic Findings data reviewed, see HPI PG Care Time/CCT Total # of Minutes Spent Total Time Spent: 75 Total Time Spent with Patient: Total time spent is greater than 50% in coordination of care (as documented) at patient's floor/unit and/or counseling patient: Advanced Care Planning 92165 Advanced Care Planning 30 Min 84027 Advanced Care Planning Additional 30 [place] [address] IN/OBS CONSULT LVL 5,80M Patient Type New History Comprehensive Exam Comprehensive Medical Decision Making High Complexity Diagnoses Dyspnea and respiratory abnormalities R06.00; R06.89 Generalized weakness R53.1 Advanced care planning/counseling discussion Z71.89 Impaired gait and mobility R26.89 Palliative care by specialist Z51.5 Tobacco use disorder F17.200 Additional Codes Advanced Care Planning - 13001 Advanced Care Planning 30 Min: 99777 Advanced Care Planning 30 Min ([id number]) Advanced Care Planning - 29091 Advanced Care Planning Additional 30 Min: 47979 Advanced Care Planning Additional 30 Min ([id number])
--- NOTE | 2023-02-27 15:53 | Cardiology Progress Note ---
Date of Service February 27, 2023 Assessment & Plan (1) Acute and chronic respiratory failure with hypoxia: (2) Acute on chronic heart failure with preserved ejection fraction (HFpEF): (3) Non-ST elevation myocardial infarction (NSTEMI): (4) Mitral regurgitation: (5) Pleural effusion, bilateral: Plan 62-year-old female admitted with acute on chronic respiratory failure due to congestive heart failure with layering bilateral pleural effusion. Continue Lasix 40 mg IV every 12 hours. Lisinopril will be placed on hold due to borderline hypotension. Continue metoprolol and isosorbide mononitrate. Discontinue topical nitrates. Monitor fluid balance, daily weight, GFR, and electrolytes. Most recent echocardiogram performed October 2022 demonstrating preserved LV systolic function with moderate to severe mitral regurgitation and no evidence of pulmonary hypertension. Left bundle branch block noted on admission which has been documented on prior ECG dating back to August 2022. High-sensitivity troponin elevated more likely secondary to demand ischemia in the setting of acute heart failure and hypoxia. Plaque rupture event not excluded however patient chest pain-free currently. Complex cardiac history with prior coronary artery bypass grafting as detailed above. 2D echocardiogram pending. Continue IV heparin infusion. Repeat PA and lateral chest x-ray in a.m. 02/28/2023. Continue clopidogrel. Aspirin listed on patient's allergy list, however, antonietta osborn taking daily per review of her outpatient [facility] record. Patient currently taking aspirin every day, confirmed by nursing. Restart aspirin 81 mg daily. Admission and Anticipated Discharge Date Admission Date: February 25, 2023 Subjective Patient seen examined the bedside. Fluid balance -2L since admission. Respiratory status improved. Stable renal function with borderline hypotension. Telemetry reveals sinus rhythm. Denies recurrent chest discomfort. IV heparin initiated in the ER due to elevated troponin. Echocardiogram pending. More alert today. Reports approximately 7 days of worsening respiratory symptoms proceeding ER presentation. Review of Systems Review of Systems: All systems reviewed & are unremarkable except as noted in Subjective Physical Exam Constitutional: + ill appearing; no acute distress Respiratory: no respiratory distress and no labored breathing Auscultation: + diminished lung sounds (Bilateral base and midlung field) and + rales (Bilateral mid lung field); no wheezes Cardiovascular: Rate/Rhythm: regular rate and regular rhythm Heart Sounds: normal S1 and normal S2; no murmur Vessels: radial pulses present; no JVD Extremities: + edema (Trace bilateral edema) Gastrointestinal (Abdomen): Inspection/Auscultation: abdomen normal to inspection and normal bowel sounds; abdomen not distended Percussion/Palpation: abdomen soft; abdomen nontender, no guarding and abdomen not rigid Neurologic: CN's II-XI intact bilaterally and moves all extremities; no focal motor deficits Results & Data Vital Signs (Past 12 Hours) Vital Signs Temp Pulse Resp BP Pulse Ox Pulse Ox O2 Del Method 02/27/23 15:11 66 20 90 High Flow Nasal Cannula 02/27/23 11:00 63 20 95 High Flow Nasal Cannula 02/27/23 10:45 36.3 C L 64 19 104/65 97 High Flow Nasal Cannula 02/27/23 08:28 68 108/71 02/27/23 08:00 High Flow Nasal Cannula 02/27/23 08:00 02/27/23 07:37 63 20 98 High Flow Nasal Cannula 02/27/23 07:11 36.4 C L 58 L 17 95/60 L 97 High Flow Nasal Cannula 02/27/23 07:00 80 L O2 Del Method O2 Flow Rate O2 Flow Rate FiO2 02/27/23 15:11 55 80 02/27/23 11:00 50 80 02/27/23 10:45 80 02/27/23 08:28 02/27/23 08:00 50 80 02/27/23 08:00 High Flow Nasal Cannula 50 02/27/23 07:37 55 90 02/27/23 07:11 90 02/27/23 07:00 High Flow Nasal Cannula 50 Laboratory Results CBC 02/27/23 Range/Units 03:33 WBC 12.63 H (4.8-10.8) K/ul RBC 2.81 L (4.20-5.40) M/uL Hgb 8.7 L (12.0-16.0) g/dl Hct 28.5 L (37.0-47.0) % Plt Count 159 (130-400) K/uL Neut # (Auto) 7.26 H (1.40-6.50) K/uL Lymph # (Auto) 1.87 (1.20-3.40) K/uL Whiteside # (Auto) 3.29 H (0.11-0.59) K/uL Eos # (Auto) 0.01 (0.00-0.50) K/uL Baso # (Auto) 0.02 (0.00-0.20) K/uL Comprehensive Metabolic Panel 02/27/23 Range/Units 03:33 Sodium 135 L (136-145) mmol/L Potassium 3.7 (3.5-5.1) mmol/L Chloride 100 (98-107) mmol/L Carbon Dioxide 29 (21-32) mmol/L BUN 20 (6-23) mg/dl Creatinine 1.05 (0.6-1.2) mg/dl Glucose 128 H (70-99(Fasting)) mg/dl Calcium 8.1 L (8.6-10.3) mg/dl Intake and Output 02/27/23 02/27/23 02/27/23 06:59 14:59 22:59 Intake Total 373.2 / 1333.450 40.8 / 40.8 Output Total 575 / 2475 900 / 900 Balance -201.8 / -1141.550 -859.2 / -859.2 Intake: IV 123.2 / 723.450 40.8 / 40.8 Heparin Sodium/Dextrose 25,000 123.2 / 423.450 40.8 / 40.8 units In 500 ml @ 800 UNITS/HR 16 mls/hr IV .Q24H [facility] Rx#: [id number] Oral 250 / 610 Output: Urine Amount (Catheter) 575 / 2475 900 / 900 Brewer/Indwelling 575 / 2475 900 / 900 Other: Weight 68.6 kg (4) Mitral regurgitation Cardiac valve disease etiology: nonrheumatic Qualified Code(s): I34.0 - Nonrheumatic mitral (valve) insufficiency
[2023-02-27] MEDS: ASPIRIN 81 MG CHEW PO SCH (17:21)
--- NOTE | 2023-02-27 18:21 | Hospitalist Progress Note ---
Date of Service February 27, 2023 Assessment & Plan (1) Respiratory failure: Plan: acute on chronic hypoxemic respiratory failure secondary to decompensated heart failure, hx diastolic dysfunction BNP 800s Respiratory panel negative Echocardiogram: EF 50 to 55%, mild concentric LVH, severe mitral regurgitation Improving rather gradually Still on high flow O2 Lasix 40 mg IV daily Budesonide, Perforomist Home Visitor and pulmonary service consult Continue high flow O2, wean off accordingly Palliative care service consulted Troponin elevation secondary to above Possible NSTEMI given patient chest pain complaints expressed to ER provider. -- Denies active chest pain on exam --Continue IV heparin Nitropaste ordered Aspirin and Plavix hx CAD status post CABG, PVD Hypertension elevated secondary illness valvular heart disease (moderate to severe MR) history mitral valve endocarditis/periaortic abscess as per records chronic LBBB hx COPD on home O2/ISAURA on CPAP Chronic anemia, hemoglobin at baseline hyperlipidemia, on statin Rx mood disorder/paranoia as per records ongoing tobacco abuse DVT prophylaxis. Heparin Full code Admission and Anticipated Discharge Date Admission Date: February 25, 2023 Subjective Follow-up for acute CHF, respiratory failure, hypoxia, etc. Seen resting in bed, comfortable, not in distress On high flow O2 Not anxious unlike yesterday Moderate x 3 Answer questions appropriately States she feels improved today Breathing is improving No fever, cough, sputum production No abdominal pain, nausea vomiting States mood is okay-denies depression or anxiety No other new symptoms Review of Systems Review of Systems: all noted and negative except for above Physical Exam Physical Exam: General- oriented x 3, not in distress, speaks in sentences with no effort or accessory muscle use Eyes- anicteric Neck- no JVD Lungs-mild crackles bilateral bases, no wheezes Heart- normal rate, regular rhythm; no murmurs Abdomen- normal bowel sounds, nondistended, soft, nontender Extremities- no pretibial edema, no calf tenderness Neuro- alert, oriented x 3; no gross focal neurologic deficits Skin- warm & dry Results & Data Results & Data Vital Signs (Past 12 Hours) Vital Signs Temp Pulse Resp BP BP Pulse Ox Pulse Ox 02/27/23 16:00 36.3 C L 72 20 105/67 99 02/27/23 16:00 02/27/23 15:11 66 20 90 02/27/23 11:00 63 20 95 02/27/23 10:45 36.3 C L 64 19 104/65 97 02/27/23 08:28 68 108/71 02/27/23 08:00 02/27/23 08:00 02/27/23 07:37 63 20 98 02/27/23 07:11 36.4 C L 58 L 17 95/60 L 97 02/27/23 07:00 80 L O2 Del Method O2 Del Method O2 Flow Rate O2 Flow Rate FiO2 02/27/23 16:00 High Flow Nasal Cannula 80 02/27/23 16:00 High Flow Nasal Cannula 50 02/27/23 15:11 High Flow Nasal Cannula 55 80 02/27/23 11:00 High Flow Nasal Cannula 50 80 02/27/23 10:45 High Flow Nasal Cannula 80 02/27/23 08:28 02/27/23 08:00 High Flow Nasal Cannula 50 80 02/27/23 08:00 High Flow Nasal Cannula 50 02/27/23 07:37 High Flow Nasal Cannula 55 90 02/27/23 07:11 High Flow Nasal Cannula 90 02/27/23 07:00 High Flow Nasal Cannula 50 all noted and reviewed including below
[2023-02-27] MEDS: OLANZapine 5 MG TABLET PO SCH (20:19)
[2023-02-27] MEDS: rOPINIRole HCL 1 MG TABLET PO SCH (20:19)
[2023-02-27] MEDS: LANTUS PER UNIT CHARGE SC SCH (21:00)
[2023-02-27] MEDS: HEPARIN SODIUM/DEXTROSE 25,000 UNITS/500 ML BAG IV SCH (23:24)
[2023-02-27] MEDS: ACETAMINOPHEN 325 MG TAB PO PRN (23:47)
[2023-02-27] MEDS: MELATONIN 3 MG TAB PO PRN (23:50)
[2023-02-28 06:35] LABS: Hematocrit (blood only) 28.8 % (37.0-47.0); Hemoglobin 8.7 g/dl (12.0-16.0); Mean Corpuscular Hemoglobin 30.6 pg (25.0-34.0); Mean Corpuscular Hgb Conc 30.2 g/dL (32.0-36.0); Mean Corpuscular Volume 101.4 fL (80.0-100.0); Mean Platelet Volume 12.6 fL (9.4-12.4); Nucleated RBC # (auto) 0.02 K/uL (0.00-0.12); Nucleated RBC % (auto) 0.2 %; Platelet Count 161 K/uL (130-400); RDW Standard Deviation 62.7 fL (36.4-46.3); Red Blood Count 2.84 M/uL (4.20-5.40); White Blood Count 11.46 K/ul (4.8-10.8)
[2023-02-28 07:08] LABS: BUN Creatinine Ratio 24.1 (10-20); Calcium 8.2 mg/dl (8.6-10.3); Creatinine Clr Calc Pharmacy 45.5 ml/min; Est GFR (African American) 57.6 ml/min; Est GFR (Non-African American) 49.7 ml/min; Potassium 3.8 mmol/L (3.5-5.1)
[2023-02-28 07:30] LABS: Anisocytosis Present; Basophils # (auto) 0.03 K/uL (0.00-0.20); Basophils % (auto) 0.3 %; Eosinophils # (auto) 0.03 K/uL (0.00-0.50); Eosinophils % (auto) 0.3 %; Immature Granulocytes # (auto) 0.17 K/uL (0.01-0.20); Immature Granulocytes % (auto) 1.5 %; Lymphocytes # (auto) 2.16 K/uL (1.20-3.40); Lymphocytes % (auto) 18.8 %; Monocytes # (auto) 3.52 K/uL (0.11-0.59); Monocytes % (auto) 30.7 %; Neutrophils # (auto) 5.55 K/uL (1.40-6.50); Neutrophils % (auto) 48.4 %; Polychromasia 1+
[2023-02-28] MEDS: BUDESONIDE 0.5 MG/2 ML VIAL (PULMICORT) NEB SCH ×2 (07:33→19:25)
[2023-02-28] MEDS: FORMOTEROL 20 MCG/2 ML VIAL NEB SCH ×2 (07:33→19:25)
[2023-02-28 07:54] LABS: ANTI-Xa, UFH(UnfractionatedHep 1.03 IU/ml (0.3-0.7)
[2023-02-28] MEDS: METOPROLOL SUCC 50MG EXT REL TAB PO SCH ×2 (08:38→20:22)
[2023-02-28] MEDS: GABAPENTIN 400 MG CAP PO SCH ×3 (08:38→20:21)
[2023-02-28] MEDS: TOPIRAMATE 50 MG TAB PO SCH ×2 (08:38→20:21)
[2023-02-28] MEDS: DULoxetine HCL 60 MG CAP PO SCH (08:39)
[2023-02-28] MEDS: ASPIRIN 81 MG CHEW PO SCH (08:39)
[2023-02-28] MEDS: PANTOprazole 40 MG TAB PO SCH (08:39)
[2023-02-28] MEDS: CLOPIDOGREL BISULFATE 75 MG TAB PO SCH (08:40)
[2023-02-28] MEDS: DULoxetine HCL 30 MG CAP PO SCH (08:40)
[2023-02-28] MEDS: NICOTINE 14 MG/24 HR PATCH TD SCH (08:45)
[2023-02-28] MEDS: INSULIN ASPART PER UNIT CHARGE SC SCH ×4 (08:59→20:22)
[2023-02-28] MEDS: LANTUS PER UNIT CHARGE SC SCH ×2 (08:59→20:22)
[2023-02-28] MEDS: POTASSIUM CHLORIDE CRTAB 20 MEQ TABCR PO SCH (09:08)
[2023-02-28] MEDS: FUROSEMIDE 40 MG/4 ML VIAL IV SCH ×2 (09:56→17:44)
--- NOTE | 2023-02-28 10:08 | Pulmonology Progress Note ---
Date of Service February 28, 2023 Assessment & Plan (1) Respiratory failure: (2) Acute and chronic respiratory failure with hypoxia: (3) CHF (congestive heart failure): Heart failure chronicity: acute on chronic Heart failure type: unspecified Qualified Code(s): I50.9 - Heart failure, unspecified Plan 62-year-old female with a history of diastolic heart failure and severe mitral valve regurgitation presenting to the hospital due to acute on chronic hypoxemic respiratory failure secondary to decompensated CHF. Recommendations: 1. Hypoxemic respiratory failure: Continue diuresis. Defer diuretic dosing to primary team and cardiology. 2. COPD: Patient does not appear bronchospastic currently. Do not see an indication for systemic steroids at this point in time. Can continue nebulized bronchodilators in the form of budesonide and Perforomist and as needed DuoNebs. 3. Can consider thoracentesis in radiology department in the next 1-2 days if no significant diuresis is achieved. Will follow-up periodically. Thank you for the consult. Admission and Anticipated Discharge Date Admission Date: February 25, 2023 Subjective Patient seen and examined. She remains on high flow oxygen. She denies any shortness of breath at rest. She has essentially been bedbound. Review of Systems Review of Systems: All systems reviewed & are unremarkable except as noted in HPI & below Physical Exam Constitutional: Patient appears in poor general frail condition. Neck: trachea midline, no thyromegaly Respiratory: + respiratory distress and + tachypneic Auscultation: + diminished lung sounds, + crackles and + rhonchi Diminished at the bases Cardiovascular: Heart Sounds: normal S1, normal S2 and + murmur Extremities: + edema Gastrointestinal (Abdomen): normal bowel sounds, soft, nontender, no hepatosplenomegaly Musculoskeletal: Lower extremity wound is dressed Skin: no rashes, warm and dry Lymphatic: no cervical lymphadenopathy Results & Data Results & Data Vital Signs (Past 12 Hours) Vital Signs Temp Pulse Pulse Pulse Resp BP Pulse Ox 02/28/23 08:36 67 115/72 02/28/23 08:06 36.8 C 70 20 102/69 96 02/28/23 07:35 61 17 89 L 02/28/23 04:00 36.2 C L 61 20 96/61 L 98 02/28/23 03:37 61 19 96 02/28/23 03:09 60 18 99 02/28/23 00:00 36.3 C L 70 112/68 02/27/23 23:58 66 02/27/23 22:30 67 19 92 O2 Del Method O2 Flow Rate FiO2 02/28/23 08:36 02/28/23 08:06 High Flow Nasal Cannula 50 02/28/23 07:35 High Flow Nasal Cannula 40 50 02/28/23 04:00 High Flow Nasal Cannula 02/28/23 03:37 High Flow Nasal Cannula 50 50 02/28/23 03:09 High Flow Nasal Cannula 55 70 02/28/23 00:00 02/27/23 23:58 02/27/23 22:30 High Flow Nasal Cannula 55 75 PG Care Time/CCT Total # of Minutes Spent Total Time Spent with Patient: Total time spent is greater than 50% in coordination of care (as documented) at patient's floor/unit and/or counseling patient: Coding Level of Care Code 59447 SUB INP/OBS CARE 03/09MIN Diagnoses Respiratory failure J96.90 Acute and chronic respiratory failure with hypoxia J96.21 CHF (congestive heart failure) I50.9 Heart failure chronicity: acute on chronic Heart failure type: unspecified
--- NOTE | 2023-02-28 10:12 | XRay Report ---
XR chest 1V portable HISTORY: Congestive heart failure. Shortness of breath. COMPARISON: Chest 02/26/2023. FINDINGS: No pneumothorax. There are low lung volumes. The heart remains enlarged. There are postster notomy changes. Mild pulmonary edema is again noted. Moderate pleural effusions and bibasilar densiti es persist. No acute fractures. IMPRESSION: 1. Cardiomegaly and pulmonary edema persist. 2. No significant change in the moderate pleural effusion and bibasilar densities. ACT 112: Negative or not required by law. Electronically signed by: Fred Blanc M.D. 02/28/2023 10:09 AM
--- NOTE | 2023-02-28 11:49 | Palliative Care Progress Note ---
Date of Service February 28, 2023 Assessment & Plan (1) Discussion about advance care planning held with family member: Plan: 45min telephonic discussion with pt dtrPerla. reviewed the issues above and that we are still trying to wean HFNC. Discussed her lethargy and Perla notes that pt had some last night but seemed intermittent. Reviewed that we are going to continue current plan of care, see how diuresis helps and re eval role of thoracentesis in a few days. Perla very honest in sharing that pt is largely non compliant and continues to make choices that in the family's opinion do not serve pt well or help her get better. She refuses to live away from home, declines [facility] and she declined rehab. She does not take meds as ordered nor does not refrain from toxic choices ie actively smoking. They are frustrated as a family by the situation but also struggle to accept her choices. We spoke about the tension this can create in a family jocelin when people want their loved one to "get better" but the loved one has a different definition of what "better" means to them. We also spoke about the struggle we can feel trying to accept those choices/decision jocelin when they do not align with our own wishes for the person. Perla and I spoke about patient's losses and struggles in recent years - the loss of who was patient's caregiver and looked after her every need was a huge loss and then the loss of her grandson by suicide. Pt has a lifelong hx of mental illness and has struggled as much with her mental health as she does with her physical health. The combination of worsening medical illness and poorly controlled mental illness creates a situation where sometimes there are no "great" answers or choices. Pt continues to exhibit a reasonable consistency with her decisional capacity and has had princess conversations with her daughters about what she wants for end of life/adv illness care and in this regard, they are aligned as family. Perla and I reviewed pt may continue to decline this admission, in spite if medical tx. We agreed that if she has acute decline in spite of therapies underway, we would move to a comfort focused plan of care with strong symptom mgt and assure relief of suffering. Perla and I spoke about patient's discussion with us yesterday and that we recc Hospice at home. We discussed the goals of hospice as a patient service and the goals of care; we discussed EOL trajectories and transitions jocelin the emotional impact of realizing mortality as a concrete reality from prior abstract considerations. Pt was reassured that no matter where they are along this trajectory, they are not alone - their medical team will remain by their side through their journey. Discussed the pros/cons of accepting help when especially weakened and distressed by pain-which would also help provide relief/decrease caregiver burden/strain. I provided education about the hospice benefit: an interdisciplinary program offered by nurses, nurses aides, social workers, chaplains and a medical administrator for patients with a terminal condition and a life expectancy of less than 6 months. This is covered by Medicare at 100%/no out of pocket expense to patient and all meds/supplies needed by patient for the reason they are on hospice are paid for/covered by hospice. The goal is assure quality of life of the patient in their home setting (home, alf, inpatient hospice setting) by providing symptoms management, psychosocial and spiritual support. However, they cannot offer 24 hours care and if the family is unable to provide that care, they will have to consider personal care with out of pocket cost vs. alf placement. We discussed the goals of hospice as a patient service and the goals of care; we discussed EOL trajectories and transitions jocelin the emotional impact of realizing mortality as a concrete reality from prior abstract considerations. Pt was reassured that no matter where they are along this trajectory, they are not alone - their medical team will remain by their side through their journey. Discussed the pros/cons of accepting help when especially weakened and distressed by pain-which would also help provide relief/decrease caregiver burden/strain. Perla was in agreement for more supportive care in home setting jocelin since this would help assure pt is getting some basic needs met ie bathing etc and would have some nursing oversight for medication mgt and symptom mgt needs. (2) Impaired gait and mobility: Plan: Uses wheelchair at home for mobility. Increased weakness secondary to acute illness. (3) Dyspnea and respiratory abnormalities: Plan: Remains on 50L HFNC. Ni increased work of breathing, appears comfortable at present. (4) Palliative care by specialist: Plan: Reviewed with dtsheldon Duncan that Palliative Medicine is a subspecialty that pr ovides specialized medical care for people living with a serious illness by offering a focus on quality of life. Palliative Medicine is often conflated with hospice: I advised patient/family that Palliative and hospice can be partners but we are not the same. It is important to understand the difference so that we may be informed, and not afraid. Palliative Medicine works to improve QOL through reduction of symptom burden/more control over their illness, for both the patient and family. Palliative medicine clinicians are board certified, specially-trained and another member of the patient's medical care team. We often provide an extra layer of support because our care is based on the needs of the patient, not the prognosis; as such, it's appropriate at any age/advancing stage of a serious illness and can be provided along with curative treatment. Palliative Medicine clinicians are also trained in advanced communication methodologies, to facilitate complex discussions about advanced i llness planning, which are needed to help assure that the treatment choices match the patient's goals, aka delivering Goal Concordant care. Finally, we discussed that hospice is a visiting nurse service that focuses on care delivered at the very end of life for patients with terminal illness, with life expectancy less than 6 month. (5) Acute and chronic respiratory failure with hypoxia: Plan: Acute on Chronic Repository Failure - likely multifactorial in the setting of HFpEF and COPD - continue with diuresis as per cardiology, pulmonology and primary team - currently on 50L HFNC; wean as tolerating. Goal is home if able to wean to [place]. Baseline 4L at home (6) Acute on chronic heart failure with preserved ejection fraction (HFpEF): Plan: - contributing factor to acute on chronic repository failure and pleural effusions - continue with diuresis as per cardiology, pulmonology and primary team (7) Non-ST elevation myocardial infarction (NSTEMI): Plan: - currently on heparin drip, management as per cardiology/primary team (8) Pleural effusion, bilateral: Plan: - likley secondary to HFpEF - continue with diuresis as per cardiology, pulmonology and primary team Plan * Continue efforts to fix what's fixable and treat what's treatable * If she has acute decline, move to comfort and assure relief of suffering. * For now continue diuresis, efforts to wean HFNC and see how she responds. If she improves to where dc can be planned then CM to coordinate home with hospice as discussed with pt yesterday. * TS 75 min, 45min of which was ACP discussion with dtr. Thank you for allowing us to participate in the ongoing care of this patient. Please don't hesitate to call or page with any additional concerns. Dr. Belem Up DNP Director, Palliative Care Admission and Anticipated Discharge Date Admission Date: February 25, 2023 Subjective Pt seen at bedside this morning. Arousable, but very somnolent. Would awaken, open eyes, answer questions more less than a minute before going back to sleep. Pt looks comfortable, does not appear to be in any physical distress. Review of Systems Review of Systems: As per above Physical Exam Physical Exam: Constitutional: well-appearing, no acute distress HEENT: NCAT, no conjunctival injection CV: regular rhythm, no murmur appreciated no LE edema Resp: rhonchi, rales B/L lower lung denton, no wheezes appreciated, no increased work of breathing MSK: no gross deformities appreciated. Left BKA Neuro: lethargic, no focal neurologic deficit appreciated Results & Data Vital Signs (Past 12 Hours) Vital Signs Temp Pulse Pulse Pulse Resp BP Pulse Ox 02/28/23 10:41 02/28/23 08:36 67 115/72 02/28/23 08:06 36.8 C 70 20 102/69 96 02/28/23 07:35 61 17 89 L 02/28/23 04:00 36.2 C L 61 20 96/61 L 98 02/28/23 03:37 61 19 96 02/28/23 03:09 60 18 99 02/28/23 00:00 36.3 C L 70 112/68 02/27/23 23:58 66 O2 Del Method O2 Flow Rate FiO2 02/28/23 10:41 High Flow Nasal Cannula 02/28/23 08:36 02/28/23 08:06 High Flow Nasal Cannula 50 02/28/23 07:35 High Flow Nasal Cannula 40 50 02/28/23 04:00 High Flow Nasal Cannula 02/28/23 03:37 High Flow Nasal Cannula 50 50 02/28/23 03:09 High Flow Nasal Cannula 55 70 02/28/23 00:00 02/27/23 23:58 Laboratory Results data reviewed Diagnostic Findings data reviewed Supervising Physician Co-Signing Physician Notes See above
[2023-02-28 12:31] LABS: Base Excess ABG 2.3 mEq/L (-9-1.8); HCO3 ABG 28 mmol/L (19-24); Oxygen Saturation ABG 93.9 % (90-95); PCO2 ABG 47 mmHg (35-46); PO2 ABG 69 mmHg (80-95); pH ABG 7.38 (7.35-7.45)
[2023-02-28 12:33] LABS: Allen Test Pos (Pos)
--- NOTE | 2023-02-28 14:01 | Palliative Care Progress Note ---
Date of Service February 28, 2023 Assessment & Plan (1) Discussion about advance care planning held with family member: (2) Palliative care by specialist: (3) Impaired gait and mobility: (4) Dyspnea and respiratory abnormalities: Plan Palliative Care Progress Note EditDocument Principal Belem Up, ANJUM Contributors Tyree Araujo MD;Etelvina Hewitt, Last Saved at 02/28/23 13:58 View Document View Document Date of Service February 28, 2023 Assessment & Plan (1) Discussion about advance care planning held with family member: Plan: 45min telephonic discussion with pt dtrPerla. reviewed the issues above and that we are still trying to wean HFNC. Discussed her lethargy and Perla notes that pt had some last night but seemed intermittent. Reviewed that we are going to continue current plan of care, see how diuresis helps and re eval role of thoracentesis in a few days. Perla very honest in sharing that pt is largely non compliant and continues to make choices that in the family's opinion do not serve pt well or help her get better. She refuses to live away from home, declines [facility] and she declined rehab. She does not take meds as ordered nor does not refrain from toxic choices ie actively smoking. They are frustrated as a family by the situation but also struggle to accept her choices. We spoke about the tension this can create in a family jocelin when people want their loved one to "get better" but the loved one has a different definition of what "better" means to them. We also spoke about the struggle we can feel trying to accept those choices/decision jocelin when they do not align with our own wishes for the person. Perla and I spoke about patient's losses and struggles in recent years - the loss of who was patient's caregiver and looked after her every need was a huge loss and then the loss of her grandson by suicide. Pt has a lifelong hx of mental illness and has struggled as much with her mental health as she does with her physical health. The combination of worsening medical illness and poorly controlled mental illness creates a situation where sometimes there are no "great" answers or choices. Pt continues to exhibit a reasonable consistency with her decisional capacity and has had princess conversations with her daughters about what she wants for end of life/adv illness care and in this regard, they are aligned as family. Perla and I reviewed pt may continue to decline this admission, in spite if medical tx. We agreed that if she has acute decline in spite of therapies underway, we would move to a comfort focused plan of care with strong symptom mgt and assure relief of suffering. Perla and I spoke about patient's discussion with us yesterday and that we recc Hospice at home. We discussed the goals of hospice as a patient service and the goals of care; we discussed EOL trajectories and transitions jocelin the emotional impact of realizing mortality as a concrete reality from prior abstract considerations. Pt was reassured that no matter where they are along this trajectory, they are not alone - their medical team will remain by their side through their journey. Discussed the pros/cons of accepting help when especially weakened and distressed by pain-which would also help provide relief/decrease caregiver burden/strain. I provided education about the hospice benefit: an interdisciplinary program offered by nurses, nurses aides, social workers, chaplains and a vp medical for patients with a terminal condition and a life expectancy of less than 6 months. This is covered by Medicare at 100%/no out of pocket expense to patient and all meds/supplies needed by patient for the reason they are on hospice are paid for/covered by hospice. The goal is assure quality of life of the patient in their home setting (home, residential, inpatient hospice setting) by providing symptoms management, psychosocial and spiritual support. However, they cannot offer 24 hours care and if the family is unable to provide that care, they will have to consider personal care with out of pocket cost vs. residential placement. We discussed the goals of hospice as a patient service and the goals of care; we discussed EOL trajectories and transitions jocelin the emotional impact of realizing mortality as a concrete reality from prior abstract considerations. Pt was reassured that no matter where they are along this trajectory, they are not alone - their medical team will remain by their side through their journey. Discussed the pros/cons of accepting help when especially weakened and distressed by pain-which would also help provide relief/decrease caregiver burden/strain. Perla was in agreement for more supportive care in home setting jocelin since this would help assure pt is getting some basic needs met ie bathing etc and would have some nursing oversight for medication mgt and symptom mgt needs. (2) Impaired gait and mobility: Plan: Uses wheelchair at home for mobility. Increased weakness secondary to acute illness. (3) Dyspnea and respiratory abnormalities: Plan: Remains on 50L HFNC. Ni increased work of breathing, appears comfortable at present. (4) Palliative care by specialist: Plan: Reviewed with dtsheldon Duncan that Palliative Medicine is a subspecialty that provides specialized medical care for people living with a serious illness by offering a focus on quality of life. Palliative Medicine is often conflated with hospice: I advised patient/family that Palliative and hospice can be partners but we are not the same. It is important to understand the difference so that we may be informed, and not afraid. Palliative Medicine works to improve QOL through reduction of symptom burden/more control over their illness, for both the patient and family. Palliative medicine clinicians are board certified, specially-trained and another member of the patient's medical care team. We often provide an extra layer of support because our care is based on the needs of the patient, not the prognosis; as such, it's appropriate at any age/advancing stage of a serious illness and can be provided along with curative treatment. Palliative Medicine clinicians are also trained in advanced communication methodologies, to facilitate complex discussions about advanced illness planning, which are needed to help assure that the treatment choices match the patient's goals, aka delivering Goal Concordant care. Finally, we discussed that hospice is a visiting nurse service that focuses on care delivered at the very end of life for patients with terminal illness, with life expectancy less than 6 month. (5) Acute and chronic respiratory failure with hypoxia: Plan: Acute on Chronic Repository Failure - likely multifactorial in the setting of HFpEF and COPD - continue with diuresis as per cardiology, pulmonology and primary team - currently on 50L HFNC; wean as tolerating. Goal is home if able to wean to NC. Baseline 4L at home (6) Acute on chronic heart failure with preserved ejection fraction (HFpEF): Plan: - contributing factor to acute on chronic repository failure and pleural effusions - continue with diuresis as per cardiology, pulmonology and primary team (7) Non-ST elevation myocardial infarction (NSTEMI): Plan: - currently on heparin drip, management as per cardiology/primary team (8) Pleural effusion, bilateral: Plan: - likley secondary to HFpEF - continue with diuresis as per cardiology, pulmonology and primary team Plan * Continue efforts to fix what's fixable and treat what's treatable * If she has acute decline, move to comfort and assure relief of suffering. * For now continue diuresis, efforts to wean HFNC and see how she responds. If she improves to where dc can be planned then CM to coordinate home with hospice as discussed with pt yesterday. * TS 75 min, 45min of which was ACP discussion with dtr. Thank you for allowing us to participate in the ongoing care of this patient. Please don't hesitate to call or page with any additional concerns. Dr. Belem Up DNP Director, Palliative Care Admission and Anticipated Discharge Date Admission Date: February 25, 2023 Subjective Pt seen at bedside this morning. Arousable, but very somnolent. Would awaken, open eyes, answer questions more less than a minute before going back to sleep. Pt looks comfortable, does not appear to be in any physical distress. Review of Systems Review of Systems: As per above Physical Exam Physical Exam: Constitutional: well-appearing, no acute distress HEENT: NCAT, no conjunctival injection CV: regular rhythm, no murmur appreciated no LE edema Resp: rhonchi, rales B/L lower lung [place], no wheezes appreciated, no increased work of breathing MSK: no gross deformities appreciated. Left BKA Neuro: lethargic, no focal neurologic deficit appreciated Results & Data Vital Signs (Past 12 Hours) Vital Signs Temp Pulse Pulse Pulse Resp BP Pulse Ox 02/28/23 10:41 02/28/23 08:36 67 115/72 02/28/23 08:06 36.8 C 70 20 102/69 96 02/28/23 07:35 61 17 89 L 02/28/23 04:00 36.2 C L 61 20 96/61 L 98 02/28/23 03:37 61 19 96 02/28/23 03:09 60 18 99 02/28/23 00:00 36.3 C L 70 112/68 02/27/23 23:58 66 O2 Del Method O2 Flow Rate FiO2 02/28/23 10:41 High Flow Nasal Cannula 02/28/23 08:36 02/28/23 08:06 High Flow Nasal Cannula 50 02/28/23 07:35 High Flow Nasal Cannula 40 50 01/16/24 04:00 High Flow Nasal Cannula 02/28/23 03:37 High Flow Nasal Cannula 50 50 02/28/23 03:09 High Flow Nasal Cannula 55 70 02/28/23 00:00 02/27/23 23:58 Laboratory Results data reviewed Diagnostic Findings data reviewed Admission and Anticipated Discharge Date Admission Date: February 25, 2023 Subjective Follow up with pt Review of Systems Review of Systems: All systems reviewed & are unremarkable except as noted in Subjective and Unobtainable due to cognitive status Physical Exam Physical Exam: see below Results & Data Vital Signs (Past 12 Hours) Vital Signs Temp Pulse Pulse Pulse Resp BP Pulse Ox 02/28/23 13:22 64 17 88 L 02/28/23 12:06 60 02/28/23 12:01 36.3 C L 61 20 101/54 L 90 02/28/23 10:41 02/28/23 08:36 67 115/72 02/28/23 08:06 36.8 C 70 20 102/69 96 02/28/23 08:00 02/28/23 07:35 61 17 89 L 02/28/23 04:00 36.2 C L 61 20 96/61 L 98 02/28/23 03:37 61 19 96 02/28/23 03:09 60 18 99 Pulse Ox O2 Del Method O2 Del Method O2 Flow Rate FiO2 02/28/23 13:22 High Flow Nasal Cannula 40 50 02/28/23 12:06 02/28/23 12:01 High Flow Nasal Cannula 40 02/28/23 10:41 High Flow Nasal Cannula 02/28/23 08:36 02/28/23 08:06 High Flow Nasal Cannula 50 02/28/23 08:00 92 High Flow Nasal Cannula 02/28/23 07:35 High Flow Nasal Cannula 40 50 02/28/23 04:00 High Flow Nasal Cannula 02/28/23 03:37 High Flow Nasal Cannula 50 50 02/28/23 03:09 High Flow Nasal Cannula 55 70 Laboratory Results data reviewed Diagnostic Findings data reviewed PG Care Time/CCT Total # of Minutes Spent Total Time Spent: 100 Total Time Spent with Patient: Total time spent is greater than 50% in coordination of care (as documented) at patient's floor/unit and/or counseling patient: I spent 100 minutes overall addressing this case: 10 min in medical data review/discussion with referring provider(s) and/or preparation for the visit 15 min in direct interaction with the patient/exam 45 min in Advance Care Planning/Goals of Care discussions as detailed above in note (must be >16min) 15 min in subsequent review and synthesis of assessment and plan 15 min communicating with other providers regarding the patient's case: Advanced Care Planning 76861 Advanced Care Planning 30 Min 05640 Advanced Care Planning Additional 30 Min [place] [address] SUB INP/OBS CARE 3/50MIN Patient Type Established History Comprehensive Exam Comprehensive Medical Decision Making High Complexity Diagnoses Discussion about advance care planning held with family member Z71.0 Palliative care by specialist Z51.5 Impaired gait and mobility R26.89 Dyspnea and respiratory abnormalities R06.00; R06.89 Additional Codes Advanced Care Planning - 49945 Advanced Care Planning 30 Min: 46568 Advanced Care Planning 30 Min ([id number]) Advanced Care Planning - 36230 Advanced Care Planning Additional 30 Min: 13119 Advanced Care Planning Additional 30 Min ([id number])
--- NOTE | 2023-02-28 15:40 | Hospitalist Progress Note ---
Date of Service February 28, 2023 Assessment & Plan (1) Respiratory failure: Plan: acute on chronic hypoxemic respiratory failure secondary to decompensated heart failure, hx diastolic dysfunction BNP 800s Respiratory panel negative Echocardiogram: EF 50 to 55%, mild concentric LVH, severe mitral regurgitation Improving rather gradually Still on high flow O2 Lasix 40 mg IV daily Budesonide, Perforomist Dba Manager and pulmonary service consult May need thoracentesis if without improvement in 1 to 2 days as per pulmonology Continue high flow O2, wean off accordingly Palliative care service consulted Troponin elevation secondary to above Possible NSTEMI given patient chest pain complaints expressed to ER provider. -- Denies active chest pain on exam --Continue IV heparin Nitropaste ordered Aspirin and Plavix hx CAD status post CABG, PVD Hypertension elevated secondary illness valvular heart disease (moderate to severe MR) history mitral valve endocarditis/periaortic abscess as per records chronic LBBB hx COPD on home O2/ISAURA on CPAP Chronic anemia, hemoglobin at baseline hyperlipidemia, on statin Rx mood disorder/paranoia as per records ongoing tobacco abuse DVT prophylaxis. Heparin Full code Disposition pending Plan of care service on board Admission and Anticipated Discharge Date Admission Date: February 25, 2023 Subjective Follow-up for CHF, acute hypoxic respiratory failure, etc. Was having an episode of lethargy in the morning, but spontaneously woke up for lunch and was eating lunch independently States she feels okay overall Breathing is improving Although she still remains on high flow oxygen No chest pain, palpitations, dizziness No fevers or chills No cough No other new symptoms Review of Systems Review of Systems: all noted and negative except for above Physical Exam Physical Exam: General- oriented x 3, not in distress, speaks in sentences with no effort or accessory muscle use Eyes- anicteric Neck- no JVD Lungs-mild crackles at the bases, no wheezes Heart- normal rate, regular rhythm; no murmurs Abdomen- normal bowel sounds, nondistended, soft, nontender Extremities- no pretibial edema, no calf tenderness Neuro- alert, oriented x 3; no gross focal neurologic deficits Skin- warm & dry Results & Data Results & Data Vital Signs (Past 12 Hours) Vital Signs Temp Pulse Pulse Pulse Resp BP Pulse Ox 02/28/23 13:22 64 17 88 L 02/28/23 12:06 60 02/28/23 12:01 36.3 C L 61 20 101/54 L 90 02/28/23 10:41 02/28/23 08:36 67 115/72 02/28/23 08:06 36.8 C 70 20 102/69 96 02/28/23 08:00 02/28/23 07:35 61 17 89 L 02/28/23 04:00 36.2 C L 61 20 96/61 L 98 Pulse Ox O2 Del Method O2 Del Method O2 Flow Rate FiO2 02/28/23 13:22 High Flow Nasal Cannula 40 50 02/28/23 12:06 02/28/23 12:01 High Flow Nasal Cannula 40 02/28/23 10:41 High Flow Nasal Cannula 02/28/23 08:36 02/28/23 08:06 High Flow Nasal Cannula 50 02/28/23 08:00 92 High Flow Nasal Cannula 02/28/23 07:35 High Flow Nasal Cannula 40 50 02/28/23 04:00 High Flow Nasal Cannula all noted and reviewed including below
--- NOTE | 2023-02-28 15:55 | Cardiology Progress Note ---
Date of Service February 28, 2023 Assessment & Plan (1) Acute and chronic respiratory failure with hypoxia: (2) Acute on chronic heart failure with preserved ejection fraction (HFpEF): (3) Non-ST elevation myocardial infarction (NSTEMI): (4) Mitral regurgitation: (5) Pleural effusion, bilateral: Plan 62-year-old female admitted with acute on chronic respiratory failure due to congestive heart failure with layering bilateral pleural effusion. Echocardiogram reveals severe mitral regurgitation, low normal left ventricular systolic function, and moderate pulmonary hypertension. Further evaluation of severe mitral regurgitation would include transesophageal echocardiogram. Unfortunately, patient would be unable to tolerate procedure at this time due to hypoxia/respiratory failure. Titrate Lasix to improve urine output. Recommend 80 mg IV twice daily. Potassium chloride 40 mEq daily. Supplement magnesium. Monitor fluid balance, daily weight, and GFR. Consider thoracentesis in the next 24-48 hours pending clinical response. Left bundle branch block noted on admission which has been documented on prior ECG dating back to August 2022. High-sensitivity troponin elevated more likely secondary to demand ischemia in the setting of acute heart failure and hypoxia. Complex cardiac history with prior coronary artery bypass grafting as detailed above. Discontinue IV heparin. Continue aspirin, clopidogrel, and metoprolol succinate. Restart atorvastatin (outpatient 80 mg daily). Palliative care input appreciated. Admission and Anticipated Discharge Date Admission Date: February 25, 2023 Subjective Patient seen examined the bedside. Remains on high flow oxygen. Fluid balance -2 L over the past 48 hours. Echocardiogram reveals severe mitral regurgitation. Patient subjectively feeling somewhat better today. Denies chest pain or heaviness. Remains dyspneic with minimal activity. No orthopnea. Mild bilateral pedal edema unchanged. Review of Systems Review of Systems: All systems reviewed & are unremarkable except as noted in Subjective Physical Exam Constitutional: + ill appearing; no acute distress Respiratory: no respiratory distress and no labored breathing Auscultation: + diminished lung sounds (Bilateral base and midlung field) and + rales (Bilateral mid lung field); no wheezes Cardiovascular: Rate/Rhythm: regular rate and regular rhythm Heart Sounds: normal S1 and normal S2; no murmur Vessels: radial pulses present; no JVD Extremities: + edema (Trace bilateral edema) Gastrointestinal (Abdomen): Inspection/Auscultation: abdomen normal to inspection and normal bowel sounds; abdomen not distended Percussion/Palpation: abdomen soft; abdomen nontender, no guarding and abdomen not rigid Neurologic: CN's II-XI intact bilaterally and moves all extremities; no focal motor deficits Results & Data Vital Signs (Past 12 Hours) Vital Signs Temp Pulse Pulse Pulse Resp BP Pulse Ox 02/28/23 15:49 36.7 C 64 21 99/65 L 91 02/28/23 13:22 64 17 88 L 02/28/23 12:06 60 02/28/23 12:01 36.3 C L 61 20 101/54 L 90 02/28/23 10:41 02/28/23 08:36 67 115/72 02/28/23 08:06 36.8 C 70 20 102/69 96 02/28/23 08:00 02/28/23 07:35 61 17 89 L 02/28/23 04:00 36.2 C L 61 20 96/61 L 98 Pulse Ox O2 Del Method O2 Del Method O2 Flow Rate FiO2 02/28/23 15:49 Nasal Cannula 10 02/28/23 13:22 High Flow Nasal Cannula 40 50 02/28/23 12:06 02/28/23 12:01 High Flow Nasal Cannula 40 02/28/23 10:41 High Flow Nasal Cannula 02/28/23 08:36 02/28/23 08:06 High Flow Nasal Cannula 50 02/28/23 08:00 92 High Flow Nasal Cannula 02/28/23 07:35 High Flow Nasal Cannula 40 50 02/28/23 04:00 High Flow Nasal Cannula Laboratory Results CBC 02/28/23 Range/Units 06:12 WBC 11.46 H (4.8-10.8) K/ul RBC 2.84 L (4.20-5.40) M/uL Hgb 8.7 L (12.0-16.0) g/dl Hct 28.8 L (37.0-47.0) % Plt Count 161 (130-400) K/uL Neut # (Auto) 5.55 (1.40-6.50) K/uL Lymph # (Auto) 2.16 (1.20-3.40) K/uL [place] # (Auto) 3.52 H (0.11-0.59) K/uL Eos # (Auto) 0.03 (0.00-0.50) K/uL Baso # (Auto) 0.03 (0.00-0.20) K/uL Comprehensive Metabolic Panel 02/28/23 Range/Units 06:12 Sodium 135 L (136-145) mmol/L Potassium 3.8 (3.5-5.1) mmol/L Chloride 100 (98-107) mmol/L Carbon Dioxide 29 (21-32) mmol/L BUN 28 H (6-23) mg/dl Creatinine 1.16 (0.6-1.2) mg/dl Glucose 166 H (70-99(Fasting)) mg/dl Calcium 8.2 L (8.6-10.3) mg/dl Intake and Output 02/28/23 02/28/23 02/28/23 06:59 14:59 22:59 Intake Total 793.333 / 1554.133 137.867 / 137.867 Output Total 1749 1100 / 1100 Balance 743.333 / -195.867 137.867 / -962.133 -1100 / -962.133 Intake: IV 257.333 / 298.133 137.867 / 137.867 Heparin Sodium/Dextrose 25,000 257.333 / 298.133 137.867 / 137.867 units In 500 ml @ 550 UNITS/HR 11 mls/hr IV .Q24H [facility] Rx#: [id number] Oral 536 / 1256 Output: Urine Amount (Catheter) 1749 1100 / 1100 Brewer/Indwelling 1749 1100 / 1100 Other: # Unmeasured Voids 350 (4) Mitral regurgitation Cardiac valve disease etiology: nonrheumatic Qualified Code(s): I34.0 - Nonrheumatic mitral (valve) insufficiency
[2023-02-28] MEDS ORDERED: MAGNESIUM SULFATE / D5W 1 GM/100 ML BAG IV ONE (15:59)
[2023-02-28] MEDS: MELATONIN 3 MG TAB PO PRN (20:20)
[2023-02-28] MEDS: ATORVASTATIN 40 MG TAB PO SCH (20:21)
[2023-02-28] MEDS: OLANZapine 5 MG TABLET PO SCH (20:21)
[2023-02-28] MEDS: rOPINIRole HCL 1 MG TABLET PO SCH (20:21)
--- NOTE | 2023-03-01 06:08 | Electrocardiogram Report ---
Test Reason : Blood Pressure : / mmHG Vent. Rate : 064 BPM Atrial Rate : 064 BPM P-R Int : 136 ms QRS Dur : 092 ms QT Int : 430 ms P-R-T Axes : 044 065 -16 degrees QTc Int : 443 ms Normal sinus rhythm T wave abnormality, consider anterior ischemia Abnormal ECG When compared with ECG of 25-FEB-2023 22:40, Vent. rate has decreased BY 38 BPM Left bundle branch block is no longer Present Confirmed by Jayme Joyner ([id number]) on 03/01/2023 6:08:13 AM Referred By: REFERRED SELF Confirmed By:Jayme Joyner
[2023-03-01] MEDS: BUDESONIDE 0.5 MG/2 ML VIAL (PULMICORT) NEB SCH ×2 (07:17→20:12)
[2023-03-01] MEDS: FORMOTEROL 20 MCG/2 ML VIAL NEB SCH ×2 (07:17→20:12)
[2023-03-01 07:28] LABS: Hematocrit (blood only) 26.7 % (37.0-47.0); Hemoglobin 8.2 g/dl (12.0-16.0); Mean Corpuscular Hemoglobin 30.3 pg (25.0-34.0); Mean Corpuscular Hgb Conc 30.7 g/dL (32.0-36.0); Mean Corpuscular Volume 98.5 fL (80.0-100.0); Mean Platelet Volume 12.2 fL (9.4-12.4); Platelet Count 155 K/uL (130-400); RDW Coefficient of Variation 16.7 % (11.5-14.5); RDW Standard Deviation 59.7 fL (36.4-46.3); Red Blood Count 2.71 M/uL (4.20-5.40); White Blood Count 13.38 K/ul (4.8-10.8)
[2023-03-01 07:50] LABS: BUN Creatinine Ratio 22.7 (10-20); Calcium 8.6 mg/dl (8.6-10.3); Creatinine Clr Calc Pharmacy 44.1 ml/min; Est GFR (African American) 55.9 ml/min; Est GFR (Non-African American) 48.2 ml/min; Potassium 4.2 mmol/L (3.5-5.1)
[2023-03-01 08:01] LABS: Partial Thromboplastin Time 28 Seconds (21-31); Prothrombin Time 10.7 Seconds (9.0-12.0)
[2023-03-01 08:17] LABS: Basophils # (auto) 0.02 K/uL (0.00-0.20); Basophils % (auto) 0.1 %; Eosinophils # (auto) 0.04 K/uL (0.00-0.50); Eosinophils % (auto) 0.3 %; Lymphocytes # (auto) 1.93 K/uL (1.20-3.40); Lymphocytes % (auto) 14.4 %; Monocytes # (auto) 4.38 K/uL (0.11-0.59); Monocytes % (auto) 32.7 %; Neutrophils # (auto) 6.61 K/uL (1.40-6.50); Neutrophils % (auto) 49.5 %
--- NOTE | 2023-03-01 08:31 | Hospitalist Progress Note ---
Date of Service March 01, 2023 Assessment & Plan (1) Respiratory failure: Plan: Acute on chronic hypoxemic respiratory failure secondary to decompensated heart failure, hx diastolic dysfunction BNP 800s Respiratory panel negative Echocardiogram: EF 50 to 55%, mild concentric LVH, severe mitral regurgitation Improving rather gradually On high flow O2 this AM but now down to 8L oxymask, (after having L thoracentesis 03/01/23) Lasix 80 mg IV bid Budesonide, Perforomist Babbitter and pulmonary service consulted s/p L thoracentesis on 03/01/23 Cont suppl. O2, wean off accordingly, 4L at baseline Palliative care service consulted Troponin elevation secondary to above Possible NSTEMI given patient chest pain complaints expressed to ER provider. --Denies active chest pain on exam --Continued IV heparin - now stopped Continue aspirin, clopidogrel, and metoprolol succinate. Restart atorvastatin (outpatient 80 mg daily). 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 Heparin DNR/DNI Disposition pending, palliative med. consulted Admission and Anticipated Discharge Date Admission Date: February 25, 2023 Subjective Follow-up for CHF, acute hypoxic respiratory failure, etc. Underwent L thoracentesis this AM Currently on oxymask 8L (previously on High Flow) She is lying in bed, still very tired appearing, only answers few simple q uestions Denies any chest pain, fevers chills, abdominal pain Pulmonary medicine, cardiology and palliative care following. Review of Systems 2 Review of Systems: All systems reviewed & are unremarkable except as noted in Subjective Physical Exam Physical Exam: General- WD/WN F in NAD, + chronically ill appearing, on oxymask Eyes- anicteric Neck- supple Lungs- +crackles at the bases, no wheezes Heart- normal rate, regular rhythm; no murmurs Abdomen- normal bowel sounds, nondistended, soft, nontender Extremities- no pretibial edema, + L BKA, moves extremities Neuro- awake, but very tired appearing, and drowsy, able to answer simple questions appropriately, moves extremities Skin- warm & dry Results & Data Results & Data Vital Signs (Past 12 Hours) Vital Signs Temp Pulse Pulse Resp BP BP Pulse Ox 03/01/23 07:52 36.7 C 86 19 117/71 97 03/01/23 07:18 76 18 97 03/01/23 07:17 76 18 97 03/01/23 06:17 03/01/23 05:55 69 26 H 93 03/01/23 02:11 36.7 C 72 18 100/64 92 03/01/23 00:00 02/28/23 23:51 76 02/28/23 23:25 36.9 C 73 20 100/68 91 02/28/23 23:16 Pulse Ox O2 Del Method O2 Del Method O2 Flow Rate O2 Flow Rate FiO2 03/01/23 07:52 High Flow Nasal Cannula 03/01/23 07:18 High Flow Nasal Cannula 50 80 03/01/23 07:17 High Flow Nasal Cannula 50 80 03/01/23 06:17 92 High Flow Nasal Cannula 50 03/01/23 05:55 High Flow Nasal Cannula 50 80 03/01/23 02:11 Nasal Cannula 10 03/01/23 00:00 High Flow Nasal Cannula 10 02/28/23 23:51 02/28/23 23:25 Nasal Cannula 10 02/28/23 23:16 High Flow Nasal Cannula 10 Laboratory Results 03/01/23 03/01/23 02/28/23 Range/Units 07:30 07:06 20:05 WBC 13.38 H (4.8-10.8) K/ul RBC 2.71 L (4.20-5.40) M/uL Hgb 8.2 L (12.0-16.0) g/dl Hct 26.7 L (37.0-47.0) % MCV 98.5 (80.0-100.0) fL MCH 30.3 (25.0-34.0) pg MCHC 30.7 L (32.0-36.0) g/dL RDW Std Deviation 59.7 H (36.4-46.3) fL RDW Coeff of Fabio 16.7 H (11.5-14.5) % Plt Count 155 (130-400) K/uL MPV 12.2 (9.4-12.4) fL Immature Gran % (Auto) 3.0 % Neut % (Auto) 49.5 % Lymph % (Auto) 14.4 % [place] % (Auto) 32.7 % Eos % (Auto) 0.3 % Baso % (Auto) 0.1 % Neut # (Auto) 6.61 H (1.40-6.50) K/uL Lymph # (Auto) 1.93 (1.20-3.40) K/uL [place] # (Auto) 4.38 H (0.11-0.59) K/uL Eos # (Auto) 0.04 (0.00-0.50) K/uL Baso # (Auto) 0.02 (0.00-0.20) K/uL Immature Gran # (Auto) 0.40 H (0.01-0.20) K/uL PT 10.7 (9.0-12.0) Seconds INR 1.0 (0.9-1.1) APTT 28 (21-31) Seconds PTT Ratio 1.0 Heparin Anti-Xa, Unfract (0.3-0.7) IU/ml ABG pH ABG pCO2 ABG pO2 ABG HCO3 ABG O2 Saturation ABG Base Excess Christopher Test Barometric Pressure Oxygen Given Sodium 135 L (136-145) mmol/L Potassium 4.2 (3.5-5.1) mmol/L Chloride 102 (98-107) mmol/L Carbon Dioxide 28 (21-32) mmol/L Anion Gap 5 (3-11) BUN 27 H (6-23) mg/dl Creatinine 1.19 (0.6-1.2) mg/dl Est Cr Clr Drug Dosing 44.1 ml/min Est GFR ( Amer) 55.9 ml/min Est GFR (Non-Af Amer) 48.2 ml/min BUN/Creatinine Ratio 22.7 H (10-20) Glucose 97 (70-99(Fasting)) mg/dl POC Glucose 106 H 135 H (70-99) mg/dl Calcium 8.6 (8.6-10.3) mg/dl Magnesium (1.7-2.4) mg/dl 02/28/23 02/28/23 02/28/23 Range/Units 16:56 15:58 12:24 WBC (4.8-10.8) K/ul RBC (4.20-5.40) M/uL Hgb (12.0-16.0) g/dl Hct (37.0-47.0) % MCV (80.0-100.0) fL MCH (25.0-34.0) pg MCHC (32.0-36.0) g/dL RDW Std Deviation (36.4-46.3) fL RDW Coeff of Fabio (11.5-14.5) % Plt Count (130-400) K/uL MPV (9.4-12.4) fL Immature Gran % (Auto) % Neut % (Auto) % Lymph % (Auto) % [place] % (Auto) % Eos % (Auto) % Baso % (Auto) % Neut # (Auto) (1.40-6.50) K/uL Lymph # (Auto) (1.20-3.40) K/uL [place] # (Auto) (0.11-0.59) K/uL Eos # (Auto) (0.00-0.50) K/uL Baso # (Auto) (0.00-0.20) K/uL Immature Gran # (Auto) (0.01-0.20) K/uL PT (9.0-12.0) Seconds INR (0.9-1.1) APTT (21-31) Seconds PTT Ratio Heparin Anti-Xa, Unfract 0.50 (0.3-0.7) IU/ml ABG pH 7.38 ABG pCO2 47 H ABG pO2 69 L ABG HCO3 28 H ABG O2 Saturation 93.9 ABG Base Excess 2.3 H Christopher Test Pos Barometric Pressure Oxygen Given 50% FIO2 Sodium (136-145) mmol/L Potassium (3.5-5.1) mmol/L Chloride (98-107) mmol/L Carbon Dioxide (21-32) mmol/L Anion Gap (3-11) BUN (6-23) mg/dl Creatinine (0.6-1.2) mg/dl Est Cr Clr Drug Dosing ml/min Est GFR ( Amer) ml/min Est GFR (Non-Af Amer) ml/min BUN/Creatinine Ratio (10-20) Glucose (70-99(Fasting)) mg/dl POC Glucose 76 (70-99) mg/dl Calcium (8.6-10.3) mg/dl Magnesium (1.7-2.4) mg/dl 02/28/23 02/28/23 02/28/23 Range/Units 11:55 11:37 08:49 WBC (4.8-10.8) K/ul RBC (4.20-5.40) M/uL Hgb (12.0-16.0) g/dl Hct (37.0-47.0) % MCV (80.0-100.0) fL MCH (25.0-34.0) pg MCHC (32.0-36.0) g/dL RDW Std Deviation (36.4-46.3) fL RDW Coeff of Fabio (11.5-14.5) % Plt Count (130-400) K/uL MPV (9.4-12.4) fL Immature Gran % (Auto) % Neut % (Auto) % Lymph % (Auto) % [place] % (Auto) % Eos % (Auto) % Baso % (Auto) % Neut # (Auto) (1.40-6.50) K/uL Lymph # (Auto) (1.20-3.40) K/uL [place] # (Auto) (0.11-0.59) K/uL Eos # (Auto) (0.00-0.50) K/uL Baso # (Auto) (0.00-0.20) K/uL Immature Gran # (Auto) (0.01-0.20) K/uL PT (9.0-12.0) Seconds INR (0.9-1.1) APTT (21-31) Seconds PTT Ratio Heparin Anti-Xa, Unfract (0.3-0.7) IU/ml ABG pH Cancelled ABG pCO2 Cancelled ABG pO2 Cancelled ABG HCO3 Cancelled ABG O2 Saturation Cancelled ABG Base Excess Cancelled [place]her Test Cancelled Barometric Pressure Cancelled Oxygen Given Cancelled Sodium (136-145) mmol/L Potassium (3.5-5.1) mmol/L Chloride (98-107) mmol/L Carbon Dioxide (21-32) mmol/L Anion Gap (3-11) BUN (6-23) mg/dl Creatinine (0.6-1.2) mg/dl Est Cr Clr Drug Dosing ml/min Est GFR ( Amer) ml/min Est GFR (Non-Af Amer) ml/min BUN/Creatinine Ratio (10-20) Glucose (70-99(Fasting)) mg/dl POC Glucose 139 H (70-99) mg/dl Calcium (8.6-10.3) mg/dl Magnesium 1.9 (1.7-2.4) mg/dl Medications Administered Current Inpatient Medications Acetaminophen (Acetaminophen 325 Mg Tab) 650 mg PO QID PRN PRN Reason: pain/fever Stop: 03/28/23 02:17 Last Admin: 02/27/23 23:47 Dose: 650 mg Aspirin (Aspirin 81 Mg Chew) 81 mg PO DAILY SAMANTHA Stop: 03/29/23 16:14 Last Admin: 02/28/23 08:39 Dose: 81 mg Atorvastatin Calcium (Atorvastatin 40 Mg Tab) 80 mg PO HS SAMANTHA Stop: 03/30/23 20:59 Last Admin: 02/28/23 20:21 Dose: 80 mg Budesonide (Budesonide 0.5 Mg/2 Ml Vial (Pulmicort)) 0.5 mg NEB BIDR [facility] Stop: 03/28/23 18:59 Last Admin: 03/01/23 07:17 Dose: 0.5 mg Clopidogrel Bisulfate (Clopidogrel Bisulfate 75 Mg Tab) 75 mg PO DAILY SAMANTHA Stop: 03/28/23 08:59 Last Admin: 02/28/23 08:40 Dose: 75 mg Dextrose (Dextrose 50% 50 Ml Syringe) 25 - 50 ml IV UD PRN; Protocol PRN Reason: Hypoglycemia Protocol Stop: 03/27/23 23:33 Duloxetine HCl (Duloxetine Hcl 30 Mg Cap) 30 mg PO DAILY SAMANTHA Stop: 03/28/23 08:59 Last Admin: 02/28/23 08:40 Dose: 30 mg Duloxetine HCl (Duloxetine Hcl 60 Mg Cap) 60 mg PO DAILY SAMANTHA Stop: 03/28/23 08:59 Last Admin: 02/28/23 08:39 Dose: 60 mg Formoterol Fumarate (Formoterol 20 Mcg/2 Ml Vial) 20 mcg NEB BIDR [facility] Stop: 03/28/23 10:44 Last Admin: 03/01/23 07:17 Dose: 20 mcg Furosemide (Furosemide 40 Mg/4 Ml Vial) 80 mg IV BID17 SAMANTHA Stop: 03/30/23 08:59 Last Admin: 02/28/23 17:44 Dose: 80 mg Gabapentin (Gabapentin 400 Mg Cap) 400 mg PO TID [facility] Stop: 03/28/23 08:59 Last Admin: 02/28/23 20:21 Dose: 400 mg Glucagon (Glucagon For Inj 1 Mg Vial) 1 mg SQ UD PRN; Protocol PRN Reason: Hypoglycemia Protocol Stop: 03/27/23 23:33 Glucose (Glucose 10 Tab/Tube) 4 - 8 tab PO UD PRN; Protocol PRN Reason: Hypoglycemia Treatment Stop: 03/27/23 23:33 Glucose (Glucose 40% Gel 15 Gm Tube) 15 - 30 gm PO UD PRN; Protocol PRN Reason: Hypoglycemia Protocol Stop: 03/27/23 23:33 Promethazine HCl 6.25 mg/ (Sodium Chloride) 50.25 mls @ 201 mls/hr IV Q6H PRN PRN Reason: Nausea And Vomiting Stop: 03/28/23 02:17 Insulin Aspart (Insulin Aspart Per Unit Charge) 0 units SC [facility]; Protocol Stop: 03/27/23 23:44 Last Admin: 02/28/23 20:22 Dose: Not Given Insulin Glargine (Lantus Per Unit Charge) 20 units SC [facility] Stop: 03/30/23 08:59 Last Admin: 02/28/23 08:59 Dose: 20 units Isosorbide Mononitrate (Isosorbide [place] Extended Rel 30 Mg Tabcr) 30 mg PO DAILY [facility] Stop: 03/28/23 08:59 Last Admin: 02/26/23 08:01 Dose: 30 mg Lisinopril (Lisinopril 5 Mg Tab) 5 mg PO QAM [facility] Stop: 03/28/23 08:59 Last Admin: 02/27/23 09:15 Dose: 5 mg Melatonin (Melatonin 3 Mg Tab) 4.5 mg PO HS PRN PRN Reason: Sleep Stop: 03/28/23 05:51 Last Admin: 02/28/23 20:20 Dose: 4.5 mg Metoprolol Succinate (Metoprolol Succ 50mg Ext Rel Tab) 50 mg PO BID [facility] Stop: 03/28/23 08:59 Last Admin: 02/28/23 20:22 Dose: 50 mg Miscellaneous (Carbohydrates For Hypoglycemia ) 15 - 30 gm PO UD PRN PRN Reason: Hypoglycemia Protocol Stop: 03/27/23 23:33 Miscellaneous (Remove Nicoderm Patch) 1 each N/A DAILY@0859 SAMANTHA Stop: 03/28/23 08:58 Last Admin: 02/28/23 08:45 Dose: 1 each Miscellaneous Information (Pharmacy Glycemic Mgmt Consult) 1 each N/A UD PRN; Protocol PRN Reason: Consult Stop: 03/28/23 08:16 Nicotine (Nicotine 14 Mg/24 Hr Patch) 14 mg TD QAM SAMANTHA Stop: 03/28/23 08:59 Last Admin: 02/28/23 08:45 Dose: 14 mg Olanzapine (Olanzapine 5 Mg Tablet) 5 mg PO HS SAMANTHA Stop: 03/28/23 20:59 Last Admin: 02/28/23 20:21 Dose: 5 mg Olanzapine (Olanzapine 10 Mg/2.1 Ml Sdv) 2.5 mg IM Q4H PRN PRN Reason: Agitation Stop: 03/28/23 02:29 Last Admin: 02/26/23 17:12 Dose: 2.5 mg Pantoprazole Sodium (Pantoprazole 40 Mg Tab) 40 mg PO DAILY SAMANTHA Stop: 03/28/23 08:59 Last Admin: 02/28/23 08:39 Dose: 40 mg Potassium Chloride (Potassium Chloride Crtab 20 Meq Tabcr) 40 meq PO QAM SAMANTHA Stop: 03/30/23 08:59 Last Admin: 02/28/23 09:08 Dose: 40 meq Ropinirole HCl (Ropinirole Hcl 1 Mg Tablet) 1 mg PO QPM SAMANTHA Stop: 03/28/23 20:59 Last Admin: 02/28/23 20:21 Dose: 1 mg Topiramate (Topiramate 50 Mg Tab) 50 mg PO BID SAMANTHA Stop: 03/28/23 08:59 Last Admin: 02/28/23 20:21 Dose: 50 mg
[2023-03-01] MEDS: INSULIN ASPART PER UNIT CHARGE SC SCH ×4 (09:07→20:50)
[2023-03-01] MEDS: LANTUS PER UNIT CHARGE SC SCH (09:07)
[2023-03-01] MEDS: NICOTINE 14 MG/24 HR PATCH TD SCH (09:08)
[2023-03-01] MEDS: TOPIRAMATE 50 MG TAB PO SCH ×2 (09:10→20:51)
[2023-03-01] MEDS: GABAPENTIN 400 MG CAP PO SCH ×3 (09:10→20:51)
[2023-03-01] MEDS: PANTOprazole 40 MG TAB PO SCH (09:10)
[2023-03-01] MEDS: CLOPIDOGREL BISULFATE 75 MG TAB PO SCH (09:10)
[2023-03-01] MEDS: DULoxetine HCL 30 MG CAP PO SCH (09:10)
[2023-03-01] MEDS: METOPROLOL SUCC 50MG EXT REL TAB PO SCH ×2 (09:10→20:50)
[2023-03-01] MEDS: ASPIRIN 81 MG CHEW PO SCH (09:11)
[2023-03-01] MEDS: POTASSIUM CHLORIDE CRTAB 20 MEQ TABCR PO SCH (09:11)
[2023-03-01] MEDS: DULoxetine HCL 60 MG CAP PO SCH (09:11)
[2023-03-01] MEDS: FUROSEMIDE 40 MG/4 ML VIAL IV SCH ×2 (09:11→18:05)
--- NOTE | 2023-03-01 10:56 | XRay Report ---
XR chest 1V portable HISTORY: Status post left thoracentesis. Evaluate for pneumothorax. COMPARISON: Chest 02/28/2023. FINDINGS: No pneumothorax. Significant decrease in size in the now trace left pleural effusion status post thoracentesis. Moderate right pleural effusion persists. The heart remains enlarged. There are poststernotomy changes again noted. Perihilar interstitial/vascular thickening consistent with pulmon smith edema. Right basilar densities remain unchanged. No acute fractures. IMPRESSION: 1. Interval decrease in size in the now trace left pleural effusion status post thoracentesis. No pne umothorax. 2. Pulmonary edema, moderate right pleural effusion, and right basilar densities persist. ACT 112: Negative or not required by law. Electronically signed by: Fred Blanc M.D. 03/01/2023 10:54 AM
--- NOTE | 2023-03-01 11:36 | Pulmonology Progress Note ---
Date of Service March 01, 2023 Assessment & Plan (1) Respiratory failure: (2) Acute and chronic respiratory failure with hypoxia: (3) CHF (congestive heart failure): Heart failure chronicity: acute on chronic Heart failure type: unspecified Qualified Code(s): I50.9 - Heart failure, unspecified Plan 62-year-old female with a history of diastolic heart failure and severe mitral valve regurgitation presenting to the hospital due to acute on chronic hypoxemic respiratory failure secondary to decompensated CHF. Recommendations: 1. Hypoxemic respiratory failure, improving: Continue diuresis. Defer diuretic dosing to primary team and cardiology. 2. COPD: Patient does not appear bronchospastic currently. Do not see an indication for systemic steroids at this point in time. Can continue nebulized bronchodilators in the form of budesonide and Perforomist and as needed DuoNebs. 3. Patient status post thoracentesis of left pleural effusion by radiology 03/01/2023. Hypoxemia is improving status post thoracentesis and along with diuresis. Follow-up chemistries, cultures and cytology from pleural fluid. Pulmonary to sign off at this time. Thank you for the consult. Please call with questions. Admission and Anticipated Discharge Date Admission Date: February 25, 2023 Subjective Patient is status post left thoracentesis radiology today. Oxygen requirements have improved. Resting comfortably. Per nursing the patient is not very motivated to eat and appears depressed. Patient without complaints currently. Review of Systems Review of Systems: All systems reviewed & are unremarkable except as noted in HPI & below Physical Exam Constitutional: Patient appears in poor general frail condition. Neck: trachea midline, no thyromegaly Respiratory: + respiratory distress and + tachypneic Auscultation: + diminished lung sounds, + crackles and + rhonchi Diminished at the bases Cardiovascular: Heart Sounds: normal S1, normal S2 and + murmur Extremities: + edema Gastrointestinal (Abdomen): normal bowel sounds, soft, nontender, no hepatosplenomegaly Musculoskeletal: Lower extremity wound is dressed Skin: no rashes, warm and dry Lymphatic: no cervical lymphadenopathy Results & Data Results & Data Vital Signs (Past 12 Hours) Vital Signs Temp Pulse Pulse Resp BP BP Pulse Ox 03/01/23 10:39 36.3 C L 66 20 128/78 92 03/01/23 07:52 36.7 C 86 19 117/71 97 03/01/23 07:18 76 18 97 03/01/23 07:17 76 18 97 03/01/23 06:17 03/01/23 05:55 69 26 H 93 03/01/23 02:11 36.7 C 72 18 100/64 92 03/01/23 00:00 02/28/23 23:51 76 Pulse Ox O2 Del Method O2 Del Method O2 Flow Rate O2 Flow Rate FiO2 03/01/23 10:39 High Flow Nasal Cannula 03/01/23 07:52 High Flow Nasal Cannula 03/01/23 07:18 High Flow Nasal Cannula 50 80 03/01/23 07:17 High Flow Nasal Cannula 50 80 03/01/23 06:17 92 High Flow Nasal Cannula 50 03/01/23 05:55 High Flow Nasal Cannula 50 80 03/01/23 02:11 Nasal Cannula 10 03/01/23 00:00 High Flow Nasal Cannula 10 02/28/23 23:51 PG Care Time/CCT Total # of Minutes Spent Total Time Spent with Patient: Total time spent is greater than 50% in coordination of care (as documented) at patient's floor/unit and/or counseling patient: Coding Level of Care Code 99902 SUB INP/OBS CARE 03/09MIN Diagnoses Respiratory failure J96.90 Acute and chronic respiratory failure with hypoxia J96.21 CHF (congestive heart failure) I50.9 Heart failure chronicity: acute on chronic Heart failure type: unspecified
--- NOTE | 2023-03-01 11:59 | Pharmacy Report ---
Pharmacy Glycemic Short Note 2 - Date of Service March 01, 2023 - Glycemic Short BSG Results (Last 24 hours): 02/28/23 02/28/23 03/01/23 16:56 20:05 07:06 Glucose 97 POC Glucose 76 135 H 03/01/23 03/01/23 07:30 11:44 Glucose POC Glucose 106 H 127 H OUTPATIENT ANTIDIABETIC REGIMEN: * Lantus 35 units SC AM * HbA1c: 9.9% (02/25/23) ASSESSMENT: 03/01: * Patient received total 42 units of insulin yesterday; 25 units basal and 17 units bolus. * BSGs yesterday were 097-793-41-135 mg/dl. Novolog parameters continued the same. * Fasting BSG was 97 mg/dl today. Basal dose reduced to 20 units in AM only (none at HS). 02/27 * BSGs have trended downward with multiple doses of IV insulin+ home lantus given yesterday. * Fasting this AM 162 mg/dL- patient is now NPO, will scale to ~80% of home dose * Continue current novolog parameters, noon check 136 mg/dL 02/26 * 62 yo F admitted on 02/25/23 secondary to respiratory failure. Pharmacy has michael still consulted to assist with inpatient glycemic management. Patient is a Type 2 diabetic as an outpatient. Please refer to outpatient regimen and most recent HbA1c above. * BSG last night was 382 mg/dL. Patient was and remains NPO. Heparin drip infusing. No abx. No steroids. * Overnight, BSGs were 462 and 370 mg/dL. Patient received two separate basal doses, one was 10 units and the other was 15 units (around 0000 and 0300). 13 units of Novolog were given for the BSG of 462 mg/dL. * Fasting was 381 mg/dL this AM. Will give another 10 units basal to equal total daily dose of 35 units today (matches home regimen). Also gave a 5 unit IV push of insulin this morning. Potassium was 3.9 so no replacement was ordered. Novolog was tightened as well. * Lunchtime BSG was 326 mg/dL, improved but not close to goal. Will not tighten Novolog or Lantus further at this point as patient is receiving much more insulin than used to at home. A1c is not at goal so home basal dose may not be adequate. Plan to give a 10 unit IV push of insulin with lunch in addition to Novolog coverage. Spoke with provider and will give 2 K-riders empirically given second IV bolus of the day. Hopefully, this will help bring BSGs down below 250 mg/dL. * Will have second shift pharmacist review dinner BSG and plan to start IV insulin infusion if BSG > 300 mg/dL. May possibly need more basal at bedtime. PLAN FOR INPATIENT GLYCEMIC CONTROL: * Basal insulin * Lantus 20 units SC QAM * Bolus insulin * NovoLog per scale ACHS or Q6hrs while NPO * Goal Range: Low 110 mg/dL - High 140 mg/dL * Correction Factor: 25 mg/dL/unit * Nutritional / Prandial insulin per carb ratio of 1 unit per 7 grams CHO consumed
--- NOTE | 2023-03-01 12:18 | Palliative Care Progress Note ---
Date of Service March 01, 2023 Assessment & Plan (1) Advanced care planning/counseling discussion: Plan: Discussion with patient about goals of care. Her goal is home with home health services, would consider Hospice. She states that her top priority is to be able to go home and would like to avoid further hospitalizations. Would like to maintain as much independence as possible. Has been able to wean off of HFNC, down to 8L oxymask. Will continue to observe post thoracentesis to see if oxygen requirement remains stable. Daughter is in agreement to continue to treat what is treatable and if further decline move towards comfort. (2) Impaired gait and mobility: Plan: Uses wheelchair at home for mobility. Increased weakness secondary to acute illness. (3) Dyspnea and respiratory abnormalities: Plan: Down to 8L oxymask s/p thoracentesis. No increased work of breathing, appears comfortable at present. (4) Palliative care by specialist: Plan: Met with pt and provided overview of Palliative Medicine, a subspecialty that provides specialized medical care for people living with a serious illness by offering a focus on quality of life. Palliative Medicine is often conflated with hospice: I advised patient/family that Palliative and hospice can be partners but we are not the same. It is important to understand the difference so that we may be informed, and not afraid. Palliative Medicine works to improve QOL through reduction of symptom burden/more control over their illness, for both the patient and family. Palliative medicine clinicians are board certified, specially-trained and another member of the patient's medical care team. We often provide an extra layer of support because our care is based on the needs of the patient, not the prognosis; as such, it's appropriate at any age/advancing stage of a serious illness and can be provided along with curative treatment. Palliative Medicine clinicians are also trained in advanced communication methodologies, to facilitate complex discussions about advanced illness planning, which are needed to help assure that the treatment choices match the patient's goals, aka delivering Goal Concordant care. Finally, we discussed that hospice is a visiting nurse service that focuses on care delivered at the very end of life for patients with terminal illness, with life expectancy less than 6 month. (5) Acute and chronic respiratory failure with hypoxia: Plan: Acute on Chronic Repository Failure - likely multifactorial in the setting of HFpEF and COPD - continue with diuresis as per cardiology, pulmonology and primary team - Continue to wean oxygen as tolerate. Baseline 4L at home (6) Acute on chronic heart failure with preserved ejection fraction (HFpEF): Plan: - contributing factor to acute on chronic repository failure and pleural effusions - continue with diuresis as per cardiology, pulmonology and primary team (7) Pleural effusion, bilateral: Plan: - likely secondary to HFpEF - s/p thoracentesis 03/01 - continue with diuresis as per cardiology, pulmonology and primary team Plan * s/p thoracentesis today with subjective improvement in dyspnea and ability to tolerate NC/face mask, not currently on HFNC * Hopeful this will be a sustainable improvement to allow return home with hospice as per her wishes * She is borderline for being able to remain home even with hospice support due to her growing MS weakness/gait imbalance and risk of falls + worsening cardiopulm failure. However she is very emphatic to try and may do well with supportive care from hospice and a de-escalated medical routine with heavier focus on comfort and QOL. * I have offered her follow up with me in [facility] Pall med clinic but she says getting to appt would be challenging/limited caregiver support. I did offer telemed but pt indicated she does not have that capability at home. * Pt was seen together with Dr Hewitt, family med resident. * TS 50min Thank you for allowing us to participate in the ongoing care of this patient. Please don't hesitate to call or page with any additional concerns. Dr. Belem Up DNP Director, Palliative Care Admission and Anticipated Discharge Date Admission Date: February 25, 2023 Subjective Pt seen at bedside today after thoracentesis. States dyspnea improved. Is still lethargic, but arousable and answering questions appropriately. Denies any other acute complaints. Review of Systems Review of Systems: As per above Physical Exam Physical Exam: Constitutional: well-appearing, no acute distress HEENT: NCAT, no conjunctival injection CV: regular rhythm, no murmur appreciated no LE edema Resp: rhonchi, rales B/L lower lung denton improved from prior, no wheezes appreciated, no increased work of breathing MSK: no gross deformities appreciated. Left BKA Neuro: lethargic, no focal neurologic deficit appreciated Results & Data Vital Signs (Past 12 Hours) Vital Signs Temp Pulse Resp BP BP Pulse Ox Pulse Ox 03/01/23 12:07 03/01/23 11:52 36.4 C L 65 22 112/73 96 03/01/23 10:39 36.3 C L 66 20 128/78 92 03/01/23 07:52 36.7 C 86 19 117/71 97 03/01/23 07:18 76 18 97 03/01/23 07:17 76 18 97 03/01/23 06:17 92 03/01/23 05:55 69 26 H 93 03/01/23 02:11 36.7 C 72 18 100/64 92 O2 Del Method O2 Del Method O2 Flow Rate O2 Flow Rate FiO2 03/01/23 12:07 Oxymask 8 03/01/23 11:52 Oxymask 8 03/01/23 10:39 High Flow Nasal Cannula 03/01/23 07:52 High Flow Nasal Cannula 03/01/23 07:18 High Flow Nasal Cannula 50 80 03/01/23 07:17 High Flow Nasal Cannula 50 80 03/01/23 06:17 High Flow Nasal Cannula 50 03/01/23 05:55 High Flow Nasal Cannula 50 80 03/01/23 02:11 Nasal Cannula 10 Laboratory Results data reviewed/PMF Diagnostic Findings data reviewed/PMF
[2023-03-01 12:23] LABS: Total Protein 6.3 gm/dl (6.0-8.3)
[2023-03-01 12:28] LABS: Amylase Pleural Fluid 13 U/L
[2023-03-01 12:33] LABS: Glucose Pleural Fluid 111 mg/dl; LDH Pleural Fluid 69 U/L; Total Protein Pleural Fluid < 3.0 gm/dl
[2023-03-01 12:58] LABS: Appearance Pleural Fluid Bloody; Color Pleural Fluid Amber; RBC Pleural Fluid Auto 17000 /uL; Source Pleural Fluid Left Lung; WBC Pleural Fluid Auto 400 /uL
--- NOTE | 2023-03-01 13:19 | Cardiology Progress Note ---
Date of Service March 01, 2023 Assessment & Plan (1) Acute and chronic respiratory failure with hypoxia: (2) Acute on chronic heart failure with preserved ejection fraction (HFpEF): (3) Non-ST elevation myocardial infarction (NSTEMI): (4) Mitral regurgitation: (5) Pleural effusion, bilateral: Plan 62-year-old female admitted with acute on chronic respiratory failure due to congestive heart failure with layering bilateral pleural effusion. Echocardiogram reveals severe mitral regurgitation, low normal left ventricular systolic function, and moderate pulmonary hypertension. Further evaluation of severe mitral regurgitation would include transesophageal echocardiogram. Unfortunately, patient would be unable to tolerate procedure at this time due to hypoxia/respiratory failure. CXR performed today s/p thoracentesis reveals improvement in the size of the left pleural effusion. Continue furosemide 80 mg IV BID and potassium supplementation. Continue ASA, clopidogrel, Toprol, lisinopril, atorvastatin. pt no longer on heparin infusion. Consider adding Lovenox for DVT prophylaxis. Admission and Anticipated Discharge Date Admission Date: February 25, 2023 Subjective Pt seen in cardiology followup. Underwent left thoracentesis this am and feels improved, however still with high oxygen requirement. She is relatively comfortable , eating lunch. Telemetry reveals SR. Per review of EKG tracings , she has an intermittent LBBB. Physical Exam Constitutional: + ill appearing; no acute distress Respiratory: no respiratory distress and no labored breathing Auscultation: + diminished lung sounds (Bilateral base and midlung field) and + rales (Bilateral mid lung field); no wheezes Cardiovascular: Rate/Rhythm: regular rate and regular rhythm Heart Sounds: normal S1, normal S2 and + murmur (1/6 SM) Vessels: radial pulses present; no JVD Extremities: + edema (Trace bilateral edema) Gastrointestinal (Abdomen): Inspection/Auscultation: abdomen normal to inspection and normal bowel sounds; abdomen not distended Percussion/Palpation: abdomen soft; abdomen nontender, no guarding and abdomen not rigid Neurologic: CN's II-XI intact bilaterally and moves all extremities; no focal motor deficits Results & Data Vital Signs (Past 12 Hours) Vital Signs Temp Pulse Pulse Resp BP BP Pulse Ox 03/01/23 12:23 36.4 C L 68 20 121/76 91 03/01/23 12:07 03/01/23 11:52 36.4 C L 65 22 112/73 96 03/01/23 10:39 36.3 C L 66 20 128/78 92 03/01/23 07:52 36.7 C 86 19 117/71 97 03/01/23 07:18 76 18 97 03/01/23 07:17 76 18 97 03/01/23 06:17 03/01/23 05:55 69 26 H 93 03/01/23 02:11 36.7 C 72 18 100/64 92 Pulse Ox O2 Del Method O2 Del Method O2 Flow Rate O2 Flow Rate FiO2 03/01/23 12:23 Oxymask 8 03/01/23 12:07 Oxymask 8 03/01/23 11:52 Oxymask 8 03/01/23 10:39 High Flow Nasal Cannula 03/01/23 07:52 High Flow Nasal Cannula 03/01/23 07:18 High Flow Nasal Cannula 50 80 03/01/23 07:17 High Flow Nasal Cannula 50 80 03/01/23 06:17 92 High Flow Nasal Cannula 50 03/01/23 05:55 High Flow Nasal Cannula 50 80 03/01/23 02:11 Nasal Cannula 10 Laboratory Results Cardiac Enzymes 03/01/23 Range/Units 11:43 Lactate Dehydrogenase 257 H (86-244) U/L Coagulation 03/01/23 Range/Units 07:06 PT 10.7 (9.0-12.0) Seconds APTT 28 (21-31) Seconds CBC 03/01/23 Range/Units 07:06 WBC 13.38 H (4.8-10.8) K/ul RBC 2.71 L (4.20-5.40) M/uL Hgb 8.2 L (12.0-16.0) g/dl Hct 26.7 L (37.0-47.0) % Plt Count 155 (130-400) K/uL Neut # (Auto) 6.61 H (1.40-6.50) K/uL Lymph # (Auto) 1.93 (1.20-3.40) K/uL [place] # (Auto) 4.38 H (0.11-0.59) K/uL Eos # (Auto) 0.04 (0.00-0.50) K/uL Baso # (Auto) 0.02 (0.00-0.20) K/uL Comprehensive Metabolic Panel 03/01/23 03/01/23 Range/Units 07:06 11:43 Sodium 135 L (136-145) mmol/L Potassium 4.2 (3.5-5.1) mmol/L Chloride 102 (98-107) mmol/L Carbon Dioxide 28 (21-32) mmol/L BUN 27 H (6-23) mg/dl Creatinine 1.19 (0.6-1.2) mg/dl Glucose 97 (70-99(Fasting)) mg/dl Calcium 8.6 (8.6-10.3) mg/dl Total Protein 6.3 (6.0-8.3) gm/dl (4) Mitral regurgitation Cardiac valve disease etiology: nonrheumatic Qualified Code(s): I34.0 - Nonrheumatic mitral (valve) insufficiency
[2023-03-01 13:28] LABS: Lymphocytes, Fluid 58 %; Mono,Macrophage,Mesothelial 38 %; Neutrophils, Fluid 4 %
--- NOTE | 2023-03-01 13:58 | Ultrasound Report ---
Ultrasound-guided thoracentesis INDICATION: Large left pleural effusion PROCEDURE: Procedure and risks were explained. Informed consent was obtained. A final timeout was com pleted. The left lateral thorax was prepped and draped in sterile fashion. 1% buffered lidocaine was utilized for skin anesthesia. Utilizing ultrasound guidance, a 5 Faroese safety centesis catheter was advanced into the left pleural effusion. Ultrasound images were obtained. 1000 mL of devika-colored pleural fluid was removed and se nt to the lab for analysis. The catheter was removed and Band-Aid applied. The patient tolerated the procedure well. A chest x-ray will be obtained postprocedure. IMPRESSION: Left thoracentesis as above. Performed, dictated, and signed by Nixon Mendiola PA-C; to be co-signed by Dr. Alexi Wu. Electronically signed by: Alexi Wu M.D. 03/01/2023 2:04 PM
--- NOTE | 2023-03-01 19:12 | XRay Report ---
SINGLE VIEW CHEST CLINICAL HISTORY: Atypical chest pain. Left thoracentesis. FINDINGS: An AP, portable, upright chest radiograph is compared to study performed earlier the same d ay 03/01/2023 and correlated with chest CT dated 11/18/2022. The patient's head partially obscures the apices. The patient is status post midline sternotomy. The heart is enlarged noting atherosclerotic c alcification of the thoracic aorta. There is pulmonary vascular congestion with evidence of interstit ial edema. There are layering pleural effusions, right larger than left with dependent consolidation. No pneumothorax is seen. The skeletal structures are osteopenic. The bony thorax is grossly intact. IMPRESSION: 1. Cardiomegaly with evidence of congestive failure and pulmonary edema. This is similar to today's e arlier examination. 2. Right larger than left pleural effusion is with dependent consolidation. 3. No pneumothorax is seen. ACT 112: Negative or not required by law. Electronically signed by: Geovani Dumont M.D. 03/01/2023 7:11 PM
[2023-03-01] MEDS: rOPINIRole HCL 1 MG TABLET PO SCH (20:51)
[2023-03-01] MEDS: OLANZapine 5 MG TABLET PO SCH (20:52)
[2023-03-01] MEDS: ATORVASTATIN 40 MG TAB PO SCH (20:52)
[2023-03-02 06:44] LABS: Hematocrit (blood only) 29.4 % (37.0-47.0); Mean Corpuscular Hemoglobin 30.2 pg (25.0-34.0); Mean Corpuscular Hgb Conc 30.6 g/dL (32.0-36.0); Mean Corpuscular Volume 98.7 fL (80.0-100.0); Mean Platelet Volume 12.4 fL (9.4-12.4); Platelet Count 156 K/uL (130-400); RDW Coefficient of Variation 16.5 % (11.5-14.5); RDW Standard Deviation 59.7 fL (36.4-46.3); Red Blood Count 2.98 M/uL (4.20-5.40)
[2023-03-02 06:52] LABS: BUN Creatinine Ratio 24.1 (10-20); Calcium 9.2 mg/dl (8.6-10.3); Creatinine Clr Calc Pharmacy 44.5 ml/min; Est GFR (African American) 57.6 ml/min; Est GFR (Non-African American) 49.7 ml/min; Magnesium 2.1 mg/dl (1.7-2.4); Phosphorus 5.4 mg/dl (2.5-4.9); Potassium 4.1 mmol/L (3.5-5.1)
[2023-03-02] MEDS: FORMOTEROL 20 MCG/2 ML VIAL NEB SCH ×2 (06:58→20:41)
[2023-03-02] MEDS: BUDESONIDE 0.5 MG/2 ML VIAL (PULMICORT) NEB SCH ×2 (06:58→20:41)
[2023-03-02 07:20] LABS: Basophils # (auto) 0.03 K/uL (0.00-0.20); Basophils % (auto) 0.2 %; Eosinophils # (auto) 0.04 K/uL (0.00-0.50); Eosinophils % (auto) 0.3 %; Immature Granulocytes # (auto) 0.23 K/uL (0.01-0.20); Immature Granulocytes % (auto) 1.8 %; Lymphocytes # (auto) 1.63 K/uL (1.20-3.40); Monocytes # (auto) 4.67 K/uL (0.11-0.59); Monocytes % (auto) 37.4 %; Neutrophils % (auto) 47.3 %
[2023-03-02] MEDS: INSULIN ASPART PER UNIT CHARGE SC SCH ×4 (09:19→21:04)
[2023-03-02] MEDS: LANTUS PER UNIT CHARGE SC SCH (09:20)
[2023-03-02] MEDS: PANTOprazole 40 MG TAB PO SCH (09:23)
[2023-03-02] MEDS: CLOPIDOGREL BISULFATE 75 MG TAB PO SCH (09:23)
[2023-03-02] MEDS: GABAPENTIN 400 MG CAP PO SCH ×3 (09:24→21:03)
[2023-03-02] MEDS: DULoxetine HCL 60 MG CAP PO SCH (09:25)
[2023-03-02] MEDS: NICOTINE 14 MG/24 HR PATCH TD SCH (09:25)
[2023-03-02] MEDS: DULoxetine HCL 30 MG CAP PO SCH (09:26)
[2023-03-02] MEDS: POTASSIUM CHLORIDE CRTAB 20 MEQ TABCR PO SCH (09:26)
[2023-03-02] MEDS: TOPIRAMATE 50 MG TAB PO SCH ×2 (09:27→21:04)
[2023-03-02] MEDS: METOPROLOL SUCC 50MG EXT REL TAB PO SCH ×2 (09:28→21:01)
[2023-03-02] MEDS: ASPIRIN 81 MG CHEW PO SCH (09:28)
[2023-03-02] MEDS: FUROSEMIDE 40 MG/4 ML VIAL IV SCH ×2 (09:31→17:45)
--- NOTE | 2023-03-02 10:36 | Hospitalist Progress Note ---
Date of Service March 02, 2023 Assessment & Plan (1) Respiratory failure: Plan: Acute on chronic hypoxemic respiratory failure secondary to decompensated heart failure, hx diastolic dysfunction BNP 800s Respiratory panel negative Echocardiogram: EF 50 to 55%, mild concentric LVH, severe mitral regurgitation Improving rather gradually On high flow O2 yesterday AM but then down to 8L oxymask, (after having L thoracentesis 03/01/23) today down to 5L (03/02) Lasix 80 mg IV bid, can decrease to 60 IV bid Budesonide, Perforomist Senior Manager and pulmonary service consulted s/p L thoracentesis on 03/01/23 Cont suppl. O2, wean off accordingly, 4L at baseline Palliative care service consulted Troponin elevation secondary to above Possible NSTEMI given patient chest pain complaints expressed to ER provider. --Denies active chest pain on exam --IV heparin - now stopped Continue aspirin, clopidogrel, and metoprolol succinate. Restarted atorvastatin (outpatient 80 mg daily). 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 lovenox subq DNR/DNI Disposition pending, palliative med. consulted, CM involved Admission and Anticipated Discharge Date Admission Date: February 25, 2023 Subjective Follow-up for CHF, acute hypoxic respiratory failure, etc. Underwent L thoracentesis yesterday Much improved today. As yesterday she was quite lethargic, today she is awake, alert and overall feeling better. She is down to 5L of suppl. O2, her baseline is 4L Denies any chest pain, fevers chills, abdominal pain Pulmonary medicine, cardiology and palliative care following. Review of Systems Review of Systems: All systems reviewed & are unremarkable except as noted in Subjective Physical Exam Physical Exam: General- WD/WN F in NAD, + chronically ill appearing, on suppl. O2 5L Eyes- anicteric Neck- supple Lungs- +crackles at the bases, no wheezes Heart- normal rate, regular rhythm; no murmurs Abdomen- normal bowel sounds, nondistended, soft, nontender Extremities- no pretibial edema, + L BKA, moves extremities Neuro- awake, alert, speech fluent, able to answer simple questions appropriately, moves extremities Skin- warm & dry Results & Data Results & Data Vital Signs (Past 12 Hours) Vital Signs Temp Pulse Pulse Pulse Resp BP BP 03/02/23 07:40 36.4 C L 68 20 104/57 L 03/02/23 07:29 68 03/02/23 06:58 69 20 03/02/23 03:35 36.8 C 76 99/63 L 03/02/23 00:00 03/01/23 23:31 36.8 C 75 20 104/68 03/01/23 23:00 77 Pulse Ox Pulse Ox O2 Del Method O2 Del Method O2 Flow Rate O2 Flow Rate 03/02/23 07:40 99 Oxymask 5.0 03/02/23 07:29 03/02/23 06:58 98 Nasal Cannula 7 03/02/23 03:35 96 Nasal Cannula 7 03/02/23 00:00 93 Nasal Cannula 7 03/01/23 23:31 91 Nasal Cannula 7 03/01/23 23:00 Laboratory Results 03/02/23 03/02/23 03/01/23 Range/Units 08:12 06:05 20:34 WBC 12.50 H (4.8-10.8) K/ul RBC 2.98 L (4.20-5.40) M/uL Hgb 9.0 L (12.0-16.0) g/dl Hct 29.4 L (37.0-47.0) % MCV 98.7 (80.0-100.0) fL MCH 30.2 (25.0-34.0) pg MCHC 30.6 L (32.0-36.0) g/dL RDW Std Deviation 59.7 H (36.4-46.3) fL RDW Coeff of Fabio 16.5 H (11.5-14.5) % Plt Count 156 (130-400) K/uL MPV 12.4 (9.4-12.4) fL Immature Gran % (Auto) 1.8 % Neut % (Auto) 47.3 % Lymph % (Auto) 13.0 % [place] % (Auto) 37.4 % Eos % (Auto) 0.3 % Baso % (Auto) 0.2 % Neut # (Auto) 5.90 (1.40-6.50) K/uL Lymph # (Auto) 1.63 (1.20-3.40) K/uL [place] # (Auto) 4.67 H (0.11-0.59) K/uL Eos # (Auto) 0.04 (0.00-0.50) K/uL Baso # (Auto) 0.03 (0.00-0.20) K/uL Immature Gran # (Auto) 0.23 H (0.01-0.20) K/uL Sodium 137 (136-145) mmol/L Potassium 4.1 (3.5-5.1) mmol/L Chloride 101 (98-107) mmol/L Carbon Dioxide 30 (21-32) mmol/L Anion Gap 6 (3-11) BUN 28 H (6-23) mg/dl Creatinine 1.16 (0.6-1.2) mg/dl Est Cr Clr Drug Dosing 44.5 ml/min Est GFR ( Amer) 57.6 ml/min Est GFR (Non-Af Amer) 49.7 ml/min BUN/Creatinine Ratio 24.1 H (10-20) Glucose 104 H (70-99(Fasting)) mg/dl POC Glucose 108 H 108 H (70-99) mg/dl Calcium 9.2 (8.6-10.3) mg/dl Phosphorus 5.4 H (2.5-4.9) mg/dl Magnesium 2.1 (1.7-2.4) mg/dl Lactate Dehydrogenase (86-244) U/L Total Protein (6.0-8.3) gm/dl Fluid Neutrophils % % Fluid Lymphocytes % % Fluid Meso/Macro/Avery % % Fluid Comment Pleural Fluid Source Pleural Color Pleural Appearance Pleural pH (7.3-7.4) Pleural WBC (Auto) /uL Pleural RBC (Auto) /uL Pleural Total Protein gm/dl Pleural LDH U/L Pleural Glucose mg/dl Pleural Amylase U/L Pleural Cholesterol 03/01/23 03/01/23 03/01/23 Range/Units 16:45 11:44 11:43 WBC (4.8-10.8) K/ul RBC (4.20-5.40) M/uL Hgb (12.0-16.0) g/dl Hct (37.0-47.0) % MCV (80.0-100.0) fL MCH (25.0-34.0) pg MCHC (32.0-36.0) g/dL RDW Std Deviation (36.4-46.3) fL RDW Coeff of Fabio (11.5-14.5) % Plt Count (130-400) K/uL MPV (9.4-12.4) fL Immature Gran % (Auto) % Neut % (Auto) % Lymph % (Auto) % [place] % (Auto) % Eos % (Auto) % Baso % (Auto) % Neut # (Auto) (1.40-6.50) K/uL Lymph # (Auto) (1.20-3.40) K/uL [place] # (Auto) (0.11-0.59) K/uL Eos # (Auto) (0.00-0.50) K/uL Baso # (Auto) (0.00-0.20) K/uL Immature Gran # (Auto) (0.01-0.20) K/uL Sodium (136-145) mmol/L Potassium (3.5-5.1) mmol/L Chloride (98-107) mmol/L Carbon Dioxide (21-32) mmol/L Anion Gap (3-11) BUN (6-23) mg/dl Creatinine (0.6-1.2) mg/dl Est Cr Clr Drug Dosing ml/min Est GFR ( Amer) ml/min Est GFR (Non-Af Amer) ml/min BUN/Creatinine Ratio (10-20) Glucose (70-99(Fasting)) mg/dl POC Glucose 105 H 127 H (70-99) mg/dl Calcium (8.6-10.3) mg/dl Phosphorus (2.5-4.9) mg/dl Magnesium (1.7-2.4) mg/dl Lactate Dehydrogenase 257 H (86-244) U/L Total Protein 6.3 (6.0-8.3) gm/dl Fluid Neutrophils % % Fluid Lymphocytes % % Fluid Meso/Macro/Avery % % Fluid Comment Pleural Fluid Source Pleural Color Pleural Appearance Pleural pH (7.3-7.4) Pleural WBC (Auto) /uL Pleural RBC (Auto) /uL Pleural Total Protein gm/dl Pleural LDH U/L Pleural Glucose mg/dl Pleural Amylase U/L Pleural Cholesterol 03/01/23 Range/Units 11:30 WBC (4.8-10.8) K/ul RBC (4.20-5.40) M/uL Hgb (12.0-16.0) g/dl Hct (37.0-47.0) % MCV (80.0-100.0) fL MCH (25.0-34.0) pg MCHC (32.0-36.0) g/dL RDW Std Deviation (36.4-46.3) fL RDW Coeff of Fabio (11.5-14.5) % Plt Count (130-400) K/uL MPV (9.4-12.4) fL Immature Gran % (Auto) % Neut % (Auto) % Lymph % (Auto) % [place] % (Auto) % Eos % (Auto) % Baso % (Auto) % Neut # (Auto) (1.40-6.50) K/uL Lymph # (Auto) (1.20-3.40) K/uL [place] # (Auto) (0.11-0.59) K/uL Eos # (Auto) (0.00-0.50) K/uL Baso # (Auto) (0.00-0.20) K/uL Immature Gran # (Auto) (0.01-0.20) K/uL Sodium (136-145) mmol/L Potassium (3.5-5.1) mmol/L Chloride (98-107) mmol/L Carbon Dioxide (21-32) mmol/L Anion Gap (3-11) BUN (6-23) mg/dl Creatinine (0.6-1.2) mg/dl Est Cr Clr Drug Dosing ml/min Est GFR ( Amer) ml/min Est GFR (Non-Af Amer) ml/min BUN/Creatinine Ratio (10-20) Glucose (70-99(Fasting)) mg/dl POC Glucose (70-99) mg/dl Calcium (8.6-10.3) mg/dl Phosphorus (2.5-4.9) mg/dl Magnesium (1.7-2.4) mg/dl Lactate Dehydrogenase (86-244) U/L Total Protein (6.0-8.3) gm/dl Fluid Neutrophils % 4 % Fluid Lymphocytes % 58 % Fluid Meso/Macro/Avery % 38 % Fluid Comment Pleural Fluid Source Left Lung Pleural Color Nieves Pleural Appearance Bloody Pleural pH 7.54 H (7.3-7.4) Pleural WBC (Auto) 400 /uL Pleural RBC (Auto) 94653 /uL Pleural Total Protein < 3.0 gm/dl Pleural LDH 69 U/L Pleural Glucose 111 mg/dl Pleural Amylase 13 U/L Pleural Cholesterol Pending Medications Administered Current Inpatient Medications Acetaminophen (Acetaminophen 325 Mg Tab) 650 mg PO QID PRN PRN Reason: pain/fever Stop: 03/28/23 02:17 Last Admin: 02/27/23 23:47 Dose: 650 mg Aspirin (Aspirin 81 Mg Chew) 81 mg PO DAILY SAMANTHA Stop: 03/29/23 16:14 Last Admin: 03/02/23 09:28 Dose: 81 mg Atorvastatin Calcium (Atorvastatin 40 Mg Tab) 80 mg PO HS SAMANTHA Stop: 03/30/23 20:59 Last Admin: 03/01/23 20:52 Dose: 80 mg Budesonide (Budesonide 0.5 Mg/2 Ml Vial (Pulmicort)) 0.5 mg NEB BIDR SAMANTHA Stop: 03/28/23 18:59 Last Admin: 03/02/23 06:58 Dose: 0.5 mg Clopidogrel Bisulfate (Clopidogrel Bisulfate 75 Mg Tab) 75 mg PO DAILY SAMANTHA Stop: 03/28/23 08:59 Last Admin: 03/02/23 09:23 Dose: 75 mg Dextrose (Dextrose 50% 50 Ml Syringe) 25 - 50 ml IV UD PRN; Protocol PRN Reason: Hypoglycemia Protocol Stop: 03/27/23 23:33 Duloxetine HCl (Duloxetine Hcl 30 Mg Cap) 30 mg PO DAILY SAMANTHA Stop: 03/28/23 08:59 Last Admin: 03/02/23 09:26 Dose: 30 mg Duloxetine HCl (Duloxetine Hcl 60 Mg Cap) 60 mg PO DAILY SAMANTHA Stop: 03/28/23 08:59 Last Admin: 03/02/23 09:25 Dose: 60 mg Formoterol Fumarate (Formoterol 20 Mcg/2 Ml Vial) 20 mcg NEB BIDR SAMANTHA Stop: 03/28/23 10:44 Last Admin: 03/02/23 06:58 Dose: 20 mcg Furosemide (Furosemide 40 Mg/4 Ml Vial) 80 mg IV BID17 SAMANTHA Stop: 03/30/23 08:59 Last Admin: 03/02/23 09:31 Dose: 80 mg Gabapentin (Gabapentin 400 Mg Cap) 400 mg PO TID [facility] Stop: 03/28/23 08:59 Last Admin: 03/02/23 09:24 Dose: 400 mg Glucagon (Glucagon For Inj 1 Mg Vial) 1 mg SQ UD PRN; Protocol PRN Reason: Hypoglycemia Protocol Stop: 03/27/23 23:33 Glucose (Glucose 10 Tab/Tube) 4 - 8 tab PO UD PRN; Protocol PRN Reason: Hypoglycemia Treatment Stop: 03/27/23 23:33 Glucose (Glucose 40% Gel 15 Gm Tube) 15 - 30 gm PO UD PRN; Protocol PRN Reason: Hypoglycemia Protocol Stop: 03/27/23 23:33 Promethazine HCl 6.25 mg/ (Sodium Chloride) 50.25 mls @ 201 mls/hr IV Q6H PRN PRN Reason: Nausea And Vomiting Stop: 03/28/23 02:17 Insulin Aspart (Insulin Aspart Per Unit Charge) 0 units SC [facility]; Protocol Stop: 03/27/23 23:44 Last Admin: 03/02/23 09:19 Dose: Not Given Insulin Glargine (Lantus Per Unit Charge) 20 units SC [facility] Stop: 03/30/23 08:59 Last Admin: 03/02/23 09:20 Dose: 20 units Isosorbide Mononitrate (Isosorbide Avery Extended Rel 30 Mg Tabcr) 30 mg PO DAILY [facility] Stop: 03/28/23 08:59 Last Admin: 02/26/23 08:01 Dose: 30 mg Lisinopril (Lisinopril 5 Mg Tab) 5 mg PO QAM [facility] Stop: 03/28/23 08:59 Last Admin: 02/27/23 09:15 Dose: 5 mg Melatonin (Melatonin 3 Mg Tab) 4.5 mg PO HS PRN PRN Reason: Sleep Stop: 03/28/23 05:51 Last Admin: 02/28/23 20:20 Dose: 4.5 mg Metoprolol Succinate (Metoprolol Succ 50mg Ext Rel Tab) 50 mg PO BID [facility] Stop: 03/28/23 08:59 Last Admin: 03/02/23 09:28 Dose: 50 mg Miscellaneous (Carbohydrates For Hypoglycemia ) 15 - 30 gm PO UD PRN PRN Reason: Hypoglycemia Protocol Stop: 03/27/23 23:33 Miscellaneous (Remove Nicoderm Patch) 1 each N/A DAILY@[id number] [facility] Stop: 03/28/23 08:58 Last Admin: 03/02/23 09:21 Dose: 1 each Miscellaneous Information (Pharmacy Glycemic Mgmt Consult) 1 each N/A UD PRN; Protocol PRN Reason: Consult Stop: 03/28/23 08:16 Nicotine (Nicotine 14 Mg/24 Hr Patch) 14 mg TD QAM SAMANTHA Stop: 03/28/23 08:59 Last Admin: 03/02/23 09:25 Dose: 14 mg Olanzapine (Olanzapine 5 Mg Tablet) 5 mg PO HS SAMANTHA Stop: 03/28/23 20:59 Last Admin: 03/01/23 20:52 Dose: 5 mg Olanzapine (Olanzapine 10 Mg/2.1 Ml Sdv) 2.5 mg IM Q4H PRN PRN Reason: Agitation Stop: 03/28/23 02:29 Last Admin: 02/26/23 17:12 Dose: 2.5 mg Pantoprazole Sodium (Pantoprazole 40 Mg Tab) 40 mg PO DAILY SAMANTHA Stop: 03/28/23 08:59 Last Admin: 03/02/23 09:23 Dose: 40 mg Potassium Chloride (Potassium Chloride Crtab 20 Meq Tabcr) 40 meq PO QAM SAMANTHA Stop: 03/30/23 08:59 Last Admin: 03/02/23 09:26 Dose: 40 meq Ropinirole HCl (Ropinirole Hcl 1 Mg Tablet) 1 mg PO QPM SAMANTHA Stop: 03/28/23 20:59 Last Admin: 03/01/23 20:51 Dose: 1 mg Topiramate (Topiramate 50 Mg Tab) 50 mg PO BID SAMANTHA Stop: 03/28/23 08:59 Last Admin: 03/02/23 09:27 Dose: 50 mg
--- NOTE | 2023-03-02 12:48 | Palliative Care Progress Note ---
Date of Service March 02, 2023 Assessment & Plan (1) Dyspnea and respiratory abnormalities: Plan: Down to 5L NC s/p thoracentesis. No increased work of breathing, appears comfortable at present. (2) Advanced care planning/counseling discussion: Plan: Discussion with patient about goals of care. Her goal is home with home health services, would consider Hospice. She states that her top priority is to be able to go home and would like to avoid further hospitalizations. Would like to maintain as much independence as possible. Has been able to wean off of HFNC, down to 5L NC after thoracentesis yesterday. Her baseline oxygen requirement is 4L. (3) Impaired gait and mobility: Plan: Uses wheelchair at home for mobility. Increased weakness secondary to acute illness. (4) Palliative care by specialist: (5) Acute and chronic respiratory failure with hypoxia: Plan: Acute on Chronic Repository Failure - likely multifactorial in the setting of HFpEF and COPD - continue with management as per cardiology, pulmonology and primary team - Continue to wean oxygen as tolerate. Baseline 4L at home (6) Acute on chronic heart failure with preserved ejection fraction (HFpEF): Plan: - contributing factor to acute on chronic repository failure and pleural effusions - continue with management as per cardiology, pulmonology and primary team (7) Pleural effusion, bilateral: Plan: - likely secondary to HFpEF - s/p thoracentesis 03/01 Plan * Tolerated thora an resp dynamics improved * Desiring home with hospice, CM to assist * Palliative Med was asked to see pt for GOC. She has no acute / urgent inpatient pall med needs at this time, with clearly documented ACP wishes for home hospice, this can be coordinated with CM. We will sign off and remain available for urgent re engagement if needed this admission. pt provided contact information for OP clinic follow up but she did advise me quite directly she would not be coming to OP clinic and does not have telemed access. Given these circumstances, hospice remains best choice to allow pt option of remaining in her home and having acute needs addressed at home without returns to hospital. * Pt seen and evaluated with Dr Hewitt, [facility] med resident. The above note is shared documentation encounter, all aspects of HPI and exam were repeated and verified by me. * TS 55min, MDM High complexity Thank you for allowing us to participate in the ongoing care of this patient. Please don't hesitate to call or page with any additional concerns. Dr. Belem Up DNP Director, Palliative Care Admission and Anticipated Discharge Date Admission Date: February 25, 2023 Brina Wagoner was seen at bedside this morning. She was awake and alert. States that her dyspnea has improved significantly since thoracentesis yesterday. Denies any acute pain and does not have any acute concerns. Pt feeling signif improvement remains clear in wish to return home willing to have home hospice if it helps her remain home appetite ok denies n/v needs to start working with PT Review of Systems Review of Systems: As per above Physical Exam Physical Exam: Constitutional: well-appearing, no acute distress HEENT: NCAT, no conjunctival injection, PERRLA, EOMIs CV: regular rhythm, no murmur appreciated no LE edema Resp: +rhonchi lower lung denton B/L, no wheezes appreciated, no increased work of breathing MSK: no gross deformities appreciated. Left BKA Neuro: alert and oriented to person and place, no focal neurologic deficit appreciated Skin: pale, warm Results & Data Vital Signs (Past 12 Hours) Vital Signs Temp Pulse Pulse Pulse Resp BP BP 03/02/23 11:41 36.3 C L 73 18 107/59 L 03/02/23 07:40 36.4 C L 68 20 104/57 L 03/02/23 07:29 68 03/02/23 06:58 69 20 03/02/23 03:35 36.8 C 76 99/63 L Pulse Ox O2 Del Method O2 Flow Rate 03/02/23 11:41 96 Nasal Cannula 5.0 03/02/23 07:40 99 Oxymask 5.0 03/02/23 07:29 03/02/23 06:58 98 Nasal Cannula 7 03/02/23 03:35 96 Nasal Cannula 7
--- NOTE | 2023-03-02 14:22 | Cardiology Progress Note ---
Date of Service March 02, 2023 Assessment & Plan (1) Acute and chronic respiratory failure with hypoxia: (2) Acute on chronic heart failure with preserved ejection fraction (HFpEF): (3) Mitral regurgitation: (4) Pleural effusion, bilateral: Plan 62-year-old female admitted with acute on chronic respiratory failure due to congestive heart failure with layering bilateral pleural effusion. Left-sided thoracentesis performed 03/01/2023 without complication. Respiratory status improved. Will de-escalate IV furosemide to 60 mg twice daily. Continue potassium supplementation. Monitor daily weight, fluid balance, GFR, and electrolytes. Continue other medications including aspirin, clopidogrel, Toprol-XL, lisinopril, and atorvastatin. Echocardiogram reveals severe mitral regurgitation, low normal left ventricular systolic function, and moderate pulmonary hypertension. Further evaluation of severe mitral regurgitation would include transesophageal echocardiogram. Unfortunately, patient would be unable to tolerate procedure at this time due to hypoxia/respiratory failure. IV heparin infusion discontinued. Consider adding Lovenox for DVT prophylaxis. Admission and Anticipated Discharge Date Admission Date: February 25, 2023 Subjective Patient seen examined at the bedside. Fluid balance -2.7 L. Renal function remains stable. Left-sided thoracentesis performed yesterday without complication. Currently off high flow oxygen. Reports feeling "weak and shaky". Denies chest pain or shortness of breath. Telemetry shows sinus rhythm in the 70s with a bundle branch block. Review of Systems Review of Systems: All systems reviewed & are unremarkable except as noted in Subjective Physical Exam Constitutional: + ill appearing; no acute distress Respiratory: no respiratory distress and no labored breathing Auscultation: + diminished lung sounds (Right base) and + rales (Bilateral mid lung field); no wheezes Cardiovascular: Rate/Rhythm: regular rate and regular rhythm Heart Sounds: normal S1 and normal S2; no murmur Vessels: radial pulses present; no JVD Extremities: + edema (Trace bilateral edema) Gastrointestinal (Abdomen): Inspection/Auscultation: abdomen normal to inspection and normal bowel sounds; abdomen not distended Percussion/Palpation: abdomen soft; abdomen nontender, no guarding and abdomen not rigid Neurologic: CN's II-XI intact bilaterally and moves all extremities; no focal motor deficits Results & Data Vital Signs (Past 12 Hours) Vital Signs Temp Pulse Pulse Pulse Resp BP BP 03/02/23 11:41 36.3 C L 73 18 107/59 L 03/02/23 07:40 36.4 C L 68 20 104/57 L 03/02/23 07:29 68 03/02/23 06:58 69 20 03/02/23 03:35 36.8 C 76 99/63 L Pulse Ox O2 Del Method O2 Flow Rate 03/02/23 11:41 96 Nasal Cannula 5.0 03/02/23 07:40 99 Oxymask 5.0 03/02/23 07:29 03/02/23 06:58 98 Nasal Cannula 7 03/02/23 03:35 96 Nasal Cannula 7 Laboratory Results CBC 03/02/23 Range/Units 06:05 WBC 12.50 H (4.8-10.8) K/ul RBC 2.98 L (4.20-5.40) M/uL Hgb 9.0 L (12.0-16.0) g/dl Hct 29.4 L (37.0-47.0) % Plt Count 156 (130-400) K/uL Neut # (Auto) 5.90 (1.40-6.50) K/uL Lymph # (Auto) 1.63 (1.20-3.40) K/uL [place] # (Auto) 4.67 H (0.11-0.59) K/uL Eos # (Auto) 0.04 (0.00-0.50) K/uL Baso # (Auto) 0.03 (0.00-0.20) K/uL Comprehensive Metabolic Panel 03/02/23 Range/Units 06:05 Sodium 137 (136-145) mmol/L Potassium 4.1 (3.5-5.1) mmol/L Chloride 101 (98-107) mmol/L Carbon Dioxide 30 (21-32) mmol/L BUN 28 H (6-23) mg/dl Creatinine 1.16 (0.6-1.2) mg/dl Glucose 104 H (70-99(Fasting)) mg/dl Calcium 9.2 (8.6-10.3) mg/dl Intake and Output 03/01/23 03/02/23 03/02/23 22:59 06:59 14:59 Intake Total 425 / 425 Output Total 2325 / 4175 850 / 4175 Balance -1900 / -3750 -850 / -3750 Intake: Oral 425 / 425 Output: Urine Amount (Catheter) 2324 / 4171 Brewer/Indwelling 2324 / 4176 Other: Other Intake Source sips Weight 65.2 kg Weight Measurement Method Built in [facility] (3) Mitral regurgitation Cardiac valve disease etiology: nonrheumatic Qualified Code(s): I34.0 - Nonrheumatic mitral (valve) insufficiency
[2023-03-02] MEDS: guaiFENesin 600 MG TABCR PO SCH ×2 (16:23→21:00)
[2023-03-02] MEDS: ENOXAPARIN INJ 30 MG/0.3 ML SYR SQ SCH (18:15)
[2023-03-02] MEDS: ATORVASTATIN 40 MG TAB PO SCH (21:02)
[2023-03-02] MEDS: OLANZapine 5 MG TABLET PO SCH (21:03)
[2023-03-02] MEDS: rOPINIRole HCL 1 MG TABLET PO SCH (21:03)
[2023-03-03] MEDS: FORMOTEROL 20 MCG/2 ML VIAL NEB SCH ×2 (07:30→19:35)
[2023-03-03] MEDS: BUDESONIDE 0.5 MG/2 ML VIAL (PULMICORT) NEB SCH ×2 (07:30→19:35)
--- NOTE | 2023-03-03 08:49 | Pharmacy Report ---
Pharmacy Glycemic Short Note 2 - Date of Service March 03, 2023 - Glycemic Short BSG Results (Last 24 hours): 03/02/23 03/02/23 03/02/23 11:48 17:04 20:13 POC Glucose 107 H 149 H 189 H 03/03/23 08:04 POC Glucose 115 H OUTPATIENT ANTIDIABETIC REGIMEN: * Lantus 35 units SC AM * HbA1c: 9.9% (02/25/23) ASSESSMENT: 03/03: * Rizwana received 38 units of insulin yesterday, 20 basal + 18 bolus. BSGs were 649-172-446-189 mg/dL. * Fasting BSG 115 mg/dL this AM. * Stressors stable. No change to insulin regimen today. 03/01: * Patient received total 42 units of insulin yesterday; 25 units basal and 17 units bolus. * BSGs yesterday were 207-318-86-135 mg/dl. Novolog parameters continued the same. * Fasting BSG was 97 mg/dl today. Basal dose reduced to 20 units in AM only (none at HS). 02/27: * BSGs have trended downward with multiple doses of IV insulin+ home lantus given yesterday. * Fasting this AM 162 mg/dL- patient is now NPO, will scale to ~80% of home dose * Continue current novolog parameters, noon check 136 mg/dL 02/26: * 62 yo F admitted on 02/25/23 secondary to respiratory failure. Pharmacy has been consulted to assist with inpatient glycemic management. Patient is a Type 2 diabetic as an outpatient. Please refer to outpatient regimen and most recent HbA1c above. * BSG last night was 382 mg/dL. Patient was and remains NPO. Heparin drip infusing. No abx. No steroids. * Overnight, BSGs were 462 and 370 mg/dL. Patient received two separate basal doses, one was 10 units and the other was 15 units (around 0000 and 0300). 13 units of Novolog were given for the BSG of 462 mg/dL. * Fasting was 381 mg/dL this AM. Will give another 10 units basal to equal total daily dose of 35 units today (matches home regimen). Also gave a 5 unit IV push of insulin this morning. Potassium was 3.9 so no replacement was ordered. Novolog was tightened as well. * Lunchtime BSG was 326 mg/dL, improved but not close to goal. Will not tighten Novolog or Lantus further at this point as patient is receiving much more insulin than used to at home. A1c is not at goal so home basal dose may not be adequate. Plan to give a 10 unit IV push of insulin with lunch in addition to Novolog coverage. Spoke with provider and will give 2 K-riders empirically given second IV bolus of the day. Hopefully, this will help bring BSGs down below 250 mg/dL. * Will have second shift pharmacist review dinner BSG and plan to start IV insulin infusion if BSG > 300 mg/dL. May possibly need more basal at bedtime. PLAN FOR INPATIENT GLYCEMIC CONTROL: * Basal insulin * Lantus 20 units SC AM * Bolus insulin * NovoLog per scale ACHS or Q6hrs while NPO * Goal Range: Low 110 mg/dL - High 140 mg/dL * Correction Factor: 25 mg/dL/unit * Nutritional / Prandial insulin per carb ratio of 1 unit per 7 grams CHO consumed
[2023-03-03] MEDS: TOPIRAMATE 50 MG TAB PO SCH ×2 (09:07→20:56)
[2023-03-03] MEDS: GABAPENTIN 400 MG CAP PO SCH ×2 (09:07→13:31)
[2023-03-03] MEDS: DULoxetine HCL 60 MG CAP PO SCH (09:07)
[2023-03-03] MEDS: POTASSIUM CHLORIDE CRTAB 20 MEQ TABCR PO SCH (09:08)
[2023-03-03] MEDS: ASPIRIN 81 MG CHEW PO SCH (09:08)
[2023-03-03] MEDS: PANTOprazole 40 MG TAB PO SCH (09:09)
[2023-03-03] MEDS: CLOPIDOGREL BISULFATE 75 MG TAB PO SCH (09:09)
[2023-03-03] MEDS: guaiFENesin 600 MG TABCR PO SCH ×2 (09:10→20:55)
[2023-03-03] MEDS: DULoxetine HCL 30 MG CAP PO SCH (09:10)
[2023-03-03] MEDS: METOPROLOL SUCC 50MG EXT REL TAB PO SCH ×2 (09:11→20:56)
[2023-03-03 09:18] LABS: Hemoglobin 9.5 g/dl (12.0-16.0); Mean Corpuscular Hgb Conc 31.7 g/dL (32.0-36.0); Mean Corpuscular Volume 94.6 fL (80.0-100.0); Mean Platelet Volume 12.2 fL (9.4-12.4); Platelet Count 177 K/uL (130-400); RDW Coefficient of Variation 15.9 % (11.5-14.5); RDW Standard Deviation 54.8 fL (36.4-46.3); Red Blood Count 3.17 M/uL (4.20-5.40); White Blood Count 16.23 K/ul (4.8-10.8)
[2023-03-03] MEDS: NICOTINE 14 MG/24 HR PATCH TD SCH (09:20)
[2023-03-03] MEDS: FUROSEMIDE 40 MG/4 ML VIAL IV SCH ×2 (09:20→16:21)
[2023-03-03 09:37] LABS: Calcium 8.9 mg/dl (8.6-10.3); Creatinine Clr Calc Pharmacy 42.7 ml/min; Est GFR (African American) 54.8 ml/min; Est GFR (Non-African American) 47.2 ml/min; Phosphorus 4.7 mg/dl (2.5-4.9); Potassium 4.2 mmol/L (3.5-5.1)
[2023-03-03 09:55] LABS: Basophils # (auto) 0.04 K/uL (0.00-0.20); Basophils % (auto) 0.2 %; Eosinophils # (auto) 0.04 K/uL (0.00-0.50); Eosinophils % (auto) 0.2 %; Immature Granulocytes # (auto) 0.37 K/uL (0.01-0.20); Immature Granulocytes % (auto) 2.3 %; Lymphocytes # (auto) 2.06 K/uL (1.20-3.40); Lymphocytes % (auto) 12.7 %; Neutrophils # (auto) 9.02 K/uL (1.40-6.50); Neutrophils % (auto) 55.6 %; Polychromasia 1+
[2023-03-03] MEDS: INSULIN ASPART PER UNIT CHARGE SC SCH ×4 (09:57→20:52)
[2023-03-03] MEDS: LANTUS PER UNIT CHARGE SC SCH (09:58)
--- NOTE | 2023-03-03 12:22 | XRay Report ---
SINGLE VIEW CHEST CLINICAL HISTORY: Pleural effusion. Hypoxia. FINDINGS: An AP, portable, upright chest radiograph is compared to study dated 03/01/2023 and correlat ed with chest CT dated 11/18/2022. The patient is status post midline sternotomy. The heart is enlarge d noting atherosclerotic calcification of the thoracic aorta. There is pulmonary vascular congestion with evidence of interstitial edema. There are layering pleural effusions, right larger than left wit h dependent consolidation. No pneumothorax is seen. The skeletal structures are osteopenic. The bony thorax is grossly intact. IMPRESSION: 1. Cardiomegaly with evidence of congestive failure and pulmonary edema. This is similar to previous. 2. Right larger than left pleural effusion is with dependent consolidation. These appear modestly inc reased in size from 03/01/2023. ACT 112: Negative or not required by law. Electronically signed by: Geovani Dumont M.D. 03/03/2023 12:20 PM
--- NOTE | 2023-03-03 12:31 | Cardiology Progress Note ---
Date of Service March 03, 2023 Assessment & Plan (1) Acute and chronic respiratory failure with hypoxia: (2) Acute on chronic heart failure with preserved ejection fraction (HFpEF): (3) Mitral regurgitation: (4) Pleural effusion, bilateral: Plan 62-year-old female admitted with acute on chronic respiratory failure due to congestive heart failure with layering bilateral pleural effusion. Left-sided thoracentesis performed 03/01/2023 without complication. Respiratory status improved. Creatinine trending upward today. Furosemide reduced to 60 mg twice daily yesterday. Will hold evening dose of IV furosemide today. Reassess volume status, GFR, electrolytes in a.m. Consider transition to oral torsemide versus continuation of IV furosemide at reduced dose, 40 mg IV twice daily pending review. Continue other medications including aspirin, clopidogrel, Toprol-XL, lisinopril, and atorvastatin. Echocardiogram reveals severe mitral regurgitation, low normal left ventricular systolic function, and moderate pulmonary hypertension. Further evaluation of severe mitral regurgitation would include transesophageal echocardiogram. Unfortunately, patient would be unable to tolerate procedure at this time due to hypoxia/respiratory failure. I discussed patient's wishes going forward. She is unsure whether she would want to proceed with transesophageal echocardiogram in the future. Agreeable to continue conservative medical therapy at this time. Palliative care input appreciated. Admission and Anticipated Discharge Date Admission Date: February 25, 2023 Subjective Patient seen and examined at the bedside. Fluid balance -3.2 L. Lasix reduced to 60 mg twice daily yesterday. Thoracentesis performed 03/01/2023 without compl ication. Denies chest pain or shortness of breath. Telemetry reveals sinus rhythm. Creatinine trending upward today. Review of Systems Review of Systems: All systems reviewed & are unremarkable except as noted in Subjective Physical Exam Constitutional: + ill appearing; no acute distress Respiratory: no respiratory distress and no labored breathing Auscultation: + diminished lung sounds (Right base) and + rales (Bilateral mid lung field); no wheezes Cardiovascular: Rate/Rhythm: regular rate and regular rhythm Heart Sounds: normal S1 and normal S2; no murmur Vessels: radial pulses present; no JVD Extremities: + edema (Trace bilateral edema) Gastrointestinal (Abdomen): Inspection/Auscultation: abdomen normal to inspection and normal bowel sounds; abdomen not distended Pe rcussion/Palpation: abdomen soft; abdomen nontender, no guarding and abdomen not rigid Neurologic: CN's II-XI intact bilaterally and moves all extremities; no focal motor deficits Results & Data Vital Signs (Past 12 Hours) Vital Signs Temp Pulse Pulse Resp BP BP Pulse Ox 03/03/23 08:18 36.4 C L 71 21 111/68 99 03/03/23 08:01 73 03/03/23 07:31 89 22 62 L 03/03/23 03:55 36.8 C 75 20 90/50 L 94 O2 Del Method O2 Flow Rate 03/03/23 08:18 Oxymask 7.0 03/03/23 08:01 03/03/23 07:31 Room Air 03/03/23 03:55 Oxymask 5 Laboratory Results CBC 03/03/23 Range/Units 08:44 WBC 16.23 H (4.8-10.8) K/ul RBC 3.17 L (4.20-5.40) M/uL Hgb 9.5 L (12.0-16.0) g/dl Hct 30.0 L (37.0-47.0) % Plt Count 177 (130-400) K/uL Neut # (Auto) 9.02 H (1.40-6.50) K/uL Lymph # (Auto) 2.06 (1.20-3.40) K/uL [place] # (Auto) 4.70 H (0.11-0.59) K/uL Eos # (Auto) 0.04 (0.00-0.50) K/uL Baso # (Auto) 0.04 (0.00-0.20) K/uL Comprehensive Metabolic Panel 03/03/23 Range/Units 08:44 Sodium 135 L (136-145) mmol/L Potassium 4.2 (3.5-5.1) mmol/L Chloride 98 (98-107) mmol/L Carbon Dioxide 29 (21-32) mmol/L BUN 29 H (6-23) mg/dl Creatinine 1.21 H (0.6-1.2) mg/dl Glucose 94 (70-99(Fasting)) mg/dl Calcium 8.9 (8.6-10.3) mg/dl Intake and Output 03/02/23 03/03/23 03/03/23 22:59 06:59 14:59 Intake Total 810 / 1260 450 / 1260 Output Total 3300 / 4550 1250 / 4550 Balance -2490 / -3290 -800 / -3290 Intake: Oral 810 / 1260 450 / 1260 Output: Urine Amount (Catheter) 3300 / 4550 1250 / 4550 Brewer/Indwelling 3300 / 4550 1250 / 4550 # Bowel Movements 0 / 0 Other: Other Intake Source sips Weight 65.3 kg Weight Measurement Method Built in [facility] (3) Mitral regurgitation Cardiac valve disease etiology: nonrheumatic Qualified Code(s): I34.0 - Nonrheumatic mitral (valve) insufficiency
[2023-03-03] MEDS: DOXYCYCLINE HYCLATE 100 MG CAP PO SCH ×2 (13:30→20:56)
[2023-03-03] MEDS: POLYETHYLENE (MIRALAX) 17 GM PACK PO SCH (13:49)
[2023-03-03] MEDS: SENNA 8.6 MG TAB PO SCH (13:50)
[2023-03-03] MEDS: AMOXICILLIN/CLAVULANATE 875 MG TAB PO SCH (16:18)
--- NOTE | 2023-03-03 17:42 | Hospitalist Progress Note ---
Date of Service March 03, 2023 Assessment & Plan (1) Respiratory failure: Plan: Acute on chronic hypoxemic respiratory failure secondary to decompensated heart failure, hx diastolic dysfunction BNP 800s Respiratory panel negative Echocardiogram: EF 50 to 55%, mild concentric LVH, severe mitral regurgitation Improving On high flow O2 previously, then had L thoracentesis on 03/01/23 which improved oxygen requirement today on 7L (03/03) Lasix 60 IV bid, likely to decrease further Budesonide, Perforomist [employer] and pulmonary service consulted s/p L thoracentesis on 03/01/23 Cont suppl. O2, wean off accordingly, 4L at baseline WBC elevated today (03/03/23) Pt reports productive cough repeat CXR w/ pulm. vas. congestion, pl. effusion and consolidation Pt possibly developing pna. No fevers, procal negat. Will start empiric augmentin and doxy as trying to avoid any ivf sputum cultx ordered Palliative care service consulted Troponin elevation secondary to above Possible NSTEMI given patient chest pain complaints expressed to ER provider. --Denies active chest pain on exam --IV heparin - now stopped Continue aspirin, clopidogrel, and metoprolol succinate. Restarted atorvastatin (outpatient 80 mg daily). 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 lovenox subq DNR/DNI Disposition pending, palliative med. consulted, CM involved Admission and Anticipated Discharge Date Admission Date: February 25, 2023 Subjective Follow-up for CHF, acute hypoxic respiratory failure, etc. Underwent L thoracentesis Today she is awake, alert but still very weak. Currently on 7L of suppl. O2, her baseline is 4L Denies any chest pain, fevers chills, abdominal pain. She is coughing and reports + yellow sputum Pulmonary medicine, cardiology and palliative care consulted. CM involved in DC needs. Review of Systems Review of Systems: All systems reviewed & are unremarkable except as noted in Subjective Physical Exam Physical Exam: General- WD/WN F in NAD, + chronically ill appearing, on suppl. O2 7L Eyes- anicteric Neck- supple Lungs- +crackles at the bases, no wheezes Heart- normal rate, regular rhythm; no murmurs Abdomen- normal bowel sounds, nondistended, soft, nontender Extremities- no pretibial edema, + L BKA, moves extremities Neuro- awake, alert, speech fluent, able to answer simple questions appropriately, moves extremities Skin- warm & dry Results & Data Results & Data Vital Signs (Past 12 Hours) Vital Signs Temp Pulse Pulse Resp BP BP Pulse Ox 03/03/23 17:29 37.2 C 72 18 95/57 L 92 03/03/23 15:27 75 03/03/23 12:38 37.5 C 82 20 128/71 90 03/03/23 08:18 36.4 C L 71 21 111/68 92 03/03/23 08:01 73 03/03/23 07:31 89 22 62 L O2 Del Method O2 Flow Rate 03/03/23 17:29 Nasal Cannula 7.0 03/03/23 15:27 03/03/23 12:38 Oxymask 7.0 03/03/23 08:18 Oxymask 7.0 03/03/23 08:01 03/03/23 07:31 Room Air Laboratory Results 03/03/23 03/03/23 03/03/23 Range/Units 16:50 12:05 08:44 WBC 16.23 H (4.8-10.8) K/ul RBC 3.17 L (4.20-5.40) M/uL Hgb 9.5 L (12.0-16.0) g/dl Hct 30.0 L (37.0-47.0) % MCV 94.6 (80.0-100.0) fL MCH 30.0 (25.0-34.0) pg MCHC 31.7 L (32.0-36.0) g/dL RDW Std Deviation 54.8 H (36.4-46.3) fL RDW Coeff of Fabio 15.9 H (11.5-14.5) % Plt Count 177 (130-400) K/uL MPV 12.2 (9.4-12.4) fL Immature Gran % (Auto) 2.3 % Neut % (Auto) 55.6 % Lymph % (Auto) 12.7 % Villalba % (Auto) 29.0 % Eos % (Auto) 0.2 % Baso % (Auto) 0.2 % Neut # (Auto) 9.02 H (1.40-6.50) K/uL Lymph # (Auto) 2.06 (1.20-3.40) K/uL Villalba # (Auto) 4.70 H (0.11-0.59) K/uL Eos # (Auto) 0.04 (0.00-0.50) K/uL Baso # (Auto) 0.04 (0.00-0.20) K/uL Immature Gran # (Auto) 0.37 H (0.01-0.20) K/uL Polychromasia 1+ Sodium 135 L (136-145) mmol/L Potassium 4.2 (3.5-5.1) mmol/L Chloride 98 (98-107) mmol/L Carbon Dioxide 29 (21-32) mmol/L Anion Gap 8 (3-11) BUN 29 H (6-23) mg/dl Creatinine 1.21 H (0.6-1.2) mg/dl Est Cr Clr Drug Dosing 42.7 ml/min Est GFR ( Amer) 54.8 ml/min Est GFR (Non-Af Amer) 47.2 ml/min BUN/Creatinine Ratio 24.0 H (10-20) Glucose 94 (70-99(Fasting)) mg/dl POC Glucose 132 H 225 H (70-99) mg/dl Calcium 8.9 (8.6-10.3) mg/dl Phosphorus 4.7 (2.5-4.9) mg/dl Magnesium 2.0 (1.7-2.4) mg/dl Procalcitonin < 0.05 (0-0.5) ng/ml 03/03/23 03/02/23 Range/Units 08:04 20:13 WBC (4.8-10.8) K/ul RBC (4.20-5.40) M/uL Hgb (12.0-16.0) g/dl Hct (37.0-47.0) % MCV (80.0-100.0) fL MCH (25.0-34.0) pg MCHC (32.0-36.0) g/dL RDW Std Deviation (36.4-46.3) fL RDW Coeff of Fabio (11.5-14.5) % Plt Count (130-400) K/uL MPV (9.4-12.4) fL Immature Gran % (Auto) % Neut % (Auto) % Lymph % (Auto) % Villalba % (Auto) % Eos % (Auto) % Baso % (Auto) % Neut # (Auto) (1.40-6.50) K/uL Lymph # (Auto) (1.20-3.40) K/uL Villalba # (Auto) (0.11-0.59) K/uL Eos # (Auto) (0.00-0.50) K/uL Baso # (Auto) (0.00-0.20) K/uL Immature Gran # (Auto) (0.01-0.20) K/uL Polychromasia Sodium (136-145) mmol/L Potassium (3.5-5.1) mmol/L Chloride (98-107) mmol/L Carbon Dioxide (21-32) mmol/L Anion Gap (3-11) BUN (6-23) mg/dl Creatinine (0.6-1.2) mg/dl Est Cr Clr Drug Dosing ml/min Est GFR ( Amer) ml/min Est GFR (Non-Af Amer) ml/min BUN/Creatinine Ratio (10-20) Glucose (70-99(Fasting)) mg/dl POC Glucose 115 H 189 H (70-99) mg/dl Calcium (8.6-10.3) mg/dl Phosphorus (2.5-4.9) mg/dl Magnesium (1.7-2.4) mg/dl Procalcitonin (0-0.5) ng/ml Medications Administered Current Inpatient Medications Acetaminophen (Acetaminophen 325 Mg Tab) 650 mg PO QID PRN PRN Reason: pain/fever Stop: 03/28/23 02:17 Last Admin: 02/27/23 23:47 Dose: 650 mg Amoxicillin/Clavulanate Potassium (Amoxicillin/Clavulanate 875 Mg Tab) 1 tab PO BIDM [facility]; Protocol Stop: 03/10/23 16:59 Last Admin: 03/03/23 16:18 Dose: 1 tab Aspirin (Aspirin 81 Mg Chew) 81 mg PO DAILY [facility] Stop: 03/29/23 16:14 Last Admin: 03/03/23 09:08 Dose: 81 mg Atorvastatin Calcium (Atorvastatin 40 Mg Tab) 80 mg PO HS [facility]AN[facility]A Stop: 03/30/23 20:59 Last Admin: 03/02/23 21:02 Dose: 80 mg Budesonide (Budesonide 0.5 Mg/2 Ml Vial (Pulmicort)) 0.5 mg NEB BIDR [facility] Stop: 03/28/23 18:59 Last Admin: 03/03/23 07:30 Dose: 0.5 mg Clopidogrel Bisulfate (Clopidogrel Bisulfate 75 Mg Tab) 75 mg PO DAILY [facility]ANTHA Stop: 03/28/23 08:59 Last Admin: 03/03/23 09:09 Dose: 75 mg Dextrose (Dextrose 50% 50 Ml Syringe) 25 - 50 ml IV UD PRN; Protocol PRN Reason: Hypoglycemia Protocol Stop: 03/27/23 23:33 Doxycycline Hyclate (Doxycycline Hyclate 100 Mg Cap) 100 mg PO BID SAMANTHA Stop: 03/10/23 11:29 Last Admin: 03/03/23 13:30 Dose: 100 mg Duloxetine HCl (Duloxetine Hcl 30 Mg Cap) 30 mg PO DAILY [facility] Stop: 03/28/23 08:59 Last Admin: 03/03/23 09:10 Dose: 30 mg Duloxetine HCl (Duloxetine Hcl 60 Mg Cap) 60 mg PO DAILY [facility] Stop: 03/28/23 08:59 Last Admin: 03/03/23 09:07 Dose: 60 mg Enoxaparin Sodium (Enoxaparin Inj 30 Mg/0.3 Ml Syr) 30 mg SQ Q24H [facility]AN[facility]A Stop: 04/01/23 17:59 Last Admin: 03/02/23 18:15 Dose: 30 mg Formoterol Fumarate (Formoterol 20 Mcg/2 Ml Vial) 20 mcg NEB BIDR [facility] Stop: 03/28/23 10:44 Last Admin: 03/03/23 07:30 Dose: 20 mcg Furosemide (Furosemide 40 Mg/4 Ml Vial) 60 mg IV BID17 [facility]A Stop: 04/01/23 16:59 Last Admin: 03/03/23 16:21 Dose: 60 mg Gabapentin (Gabapentin 300 Mg Cap) 300 mg PO TID SAMANTHA Stop: 04/02/23 20:59 Glucagon (Glucagon For Inj 1 Mg Vial) 1 mg SQ UD PRN; Protocol PRN Reason: Hypoglycemia Protocol Stop: 03/27/23 23:33 Glucose (Glucose 10 Tab/Tube) 4 - 8 tab PO UD PRN; Protocol PRN Reason: Hypoglycemia Treatment Stop: 03/27/23 23:33 Glucose (Glucose 40% Gel 15 Gm Tube) 15 - 30 gm PO UD PRN; Protocol PRN Reason: Hypoglycemia Protocol Stop: 03/27/23 23:33 Guaifenesin (Guaifenesin 600 Mg Tabcr) 600 mg PO Q12 [facility] Stop: 04/01/23 14:59 Last Admin: 03/03/23 09:10 Dose: 600 mg Promethazine HCl 6.25 mg/ (Sodium Chloride) 50.25 mls @ 201 mls/hr IV Q6H PRN PRN Reason: Nausea And Vomiting Stop: 03/28/23 02:17 Insulin Aspart (Insulin Aspart Per Unit Charge) 0 units SC [facility]; Protocol Stop: 03/27/23 23:44 Last Admin: 03/03/23 13:45 Dose: 11 units Insulin Glargine (Lantus Per Unit Charge) 20 units SC [facility] Stop: 03/30/23 08:59 Last Admin: 03/03/23 09:58 Dose: 20 units Isosorbide Mononitrate (Isosorbide Villalba Extended Rel 30 Mg Tabcr) 30 mg PO DAILY [facility] Stop: 03/28/23 08:59 Last Admin: 02/26/23 08:01 Dose: 30 mg Lisinopril (Lisinopril 5 Mg Tab) 5 mg PO QAM [facility] Stop: 03/28/23 08:59 Last Admin: 02/27/23 09:15 Dose: 5 mg Melatonin (Melatonin 3 Mg Tab) 4.5 mg PO HS PRN PRN Reason: Sleep Stop: 03/28/23 05:51 Last Admin: 02/28/23 20:20 Dose: 4.5 mg Metoprolol Succinate (Metoprolol Succ 50mg Ext Rel Tab) 50 mg PO BID [facility] Stop: 03/28/23 08:59 Last Admin: 03/03/23 09:11 Dose: 50 mg Miscellaneous (Carbohydrates For Hypoglycemia ) 15 - 30 gm PO UD PRN PRN Reason: Hypoglycemia Protocol Stop: 03/27/23 23:33 Miscellaneous (Remove Nicoderm Patch) 1 each N/A DAILY@0859 [facility] Stop: 03/28/23 08:58 Last Admin: 03/03/23 09:06 Dose: 1 each Miscellaneous Information (Pharmacy Glycemic Mgmt Consult) 1 each N/A UD PRN; Protocol PRN Reason: Consult Stop: 03/28/23 08:16 Nicotine (Nicotine 14 Mg/24 Hr Patch) 14 mg TD QAM [facility] Stop: 03/28/23 08:59 Last Admin: 03/03/23 09:20 Dose: 14 mg Olanzapine (Olanzapine 5 Mg Tablet) 5 mg PO HS [facility]ANTHA Stop: 03/28/23 20:59 Last Admin: 03/02/23 21:03 Dose: 5 mg Olanzapine (Olanzapine 10 Mg/2.1 Ml Sdv) 2.5 mg IM Q4H PRN PRN Reason: Agitation Stop: 03/28/23 02:29 Last Admin: 02/26/23 17:12 Dose: 2.5 mg Pantoprazole Sodium (Pantoprazole 40 Mg Tab) 40 mg PO DAILY [facility]A Stop: 03/28/23 08:59 Last Admin: 03/03/23 09:09 Dose: 40 mg Polyethylene Glycol (Polyethylene (Miralax) 17 Gm Pack) 17 gm PO DAILY [facility] Stop: 04/02/23 12:44 Last Admin: 03/03/23 13:49 Dose: 17 gm Potassium Chloride (Potassium Chloride Crtab 20 Meq Tabcr) 40 meq PO QAM [facility] Stop: 03/30/23 08:59 Last Admin: 03/03/23 09:08 Dose: 40 meq Ropinirole HCl (Ropinirole Hcl 1 Mg Tablet) 1 mg PO QPM [facility] Stop: 03/28/23 20:59 Last Admin: 03/02/23 21:03 Dose: 1 mg Sennosides (Senna 8.6 Mg Tab) 8.6 mg PO QAM [facility] Stop: 04/02/23 12:44 Last Admin: 03/03/23 13:50 Dose: 8.6 mg Topiramate (Topiramate 50 Mg Tab) 50 mg PO BID [facility] Stop: 03/28/23 08:59 Last Admin: 03/03/23 09:07 Dose: 50 mg
[2023-03-03] MEDS: ENOXAPARIN INJ 30 MG/0.3 ML SYR SQ SCH (18:19)
[2023-03-03] MEDS: GABAPENTIN 300 MG CAP PO SCH (20:55)
[2023-03-03] MEDS: ATORVASTATIN 40 MG TAB PO SCH (20:57)
[2023-03-03] MEDS: OLANZapine 5 MG TABLET PO SCH (20:57)
[2023-03-03] MEDS: rOPINIRole HCL 1 MG TABLET PO SCH (20:58)
[2023-03-03] MEDS: ACETAMINOPHEN 325 MG TAB PO PRN (21:05)
[2023-03-03] MEDS: MELATONIN 3 MG TAB PO PRN (21:05)
--- NOTE | 2023-03-03 22:23 | Electrocardiogram Report ---
Test Reason : Blood Pressure : / mmHG Vent. Rate : 076 BPM Atrial Rate : 076 BPM P-R Int : 142 ms QRS Dur : 148 ms QT Int : 430 ms P-R-T Axes : 060 071 025 degrees QTc Int : 483 ms Normal sinus rhythm Left bundle branch block Abnormal ECG When compared with ECG of 27-FEB-2023 16:54, Left bundle branch block is now Present Confirmed by Jayme Joyner ([id number]) on 03/03/2023 10:23:35 PM Referred By: REFERRED SELF Confirmed By:Jayme Joyner
--- NOTE | 2023-03-04 03:39 | Palliative Family Discussion ---
Date of Service March 04, 2023 Patient Directed Conference Time of [id number] Participants: Belem Up DNP Patient participation: no Patient Support System: lizeth Liriano Other Healthcare Provider Participation: None Meeting Location: telephonic/Jeanne unable to come in due to winter weather Marsha is feeling better tolerating NC weak but able to feed herself and can reposition in bed by herself, to some degree waiting for PT eval would like me to update her dtr Jeanne Continues to express desire to return home which we discussed for about 10 min A family meeting was held for MARSHA WILDE. This meeting was necessary for determining the appropriate course of treatment. Topics of Discussion Topics of Discussion: 1. Pt had thoracentesis and has been able to wean off HFNC. NOw working to get her back to NC flow from [employer] [employer] 2. Pt continues to express desire to return home with hospice. I advised dtr I asked primary team to have PT eval done to see if pt can be safe to return home with family support vs would she need more ATC support like a SNF would provide. We discussed that while pt has been consistent in her wish to come home/no SNF, if her care needs cannot be safely met at home then we need to know this so we can revisit the conversation and see if she is willing to make some accommodations. Jeanne is realistic that pt is most likely to "dig in her heels about wanting to be home even though we;ve all asked her to go where she would have more help." 3. We agreed to see how the weekend goes, continue to see if her oxygen needs remain stable, re assess after thoracentesis and await PT eval. We can revisit discussion with pt on Monday. Other Content of Meetin. Opportunity given for participants to speak and ask questions. 2. Participants were assured of attention to patient comfort. 3. Reassurance provided. 4. Support was provided for informed, good-ivania decisions. 5. Emotions expressed by family were acknowledged and addressed. Time Involved in Meeting: I spent 70 minutes overall addressing this case: 10 in medical data review/discussion with referring provider(s) and/or preparation for the visit 15 in direct interaction with the patient 30 (10 min face to face with pt then 20 min telephonic with her dtr and CLAUDIA Liriano) Advance Care Planning/Goals of Care discussions as detailed above in note (must be >16min) 10 in subsequent review and synthesis of assessment and plan 5 in communicating with other providers regarding the patient's case: [] Thank you for allowing us to participate in the ongoing care of this patient. Please don't hesitate to call or page with any additional concerns. Dr. Belem Up DNP Director, Palliative Care
[2023-03-04 06:27] LABS: Hemoglobin 9.4 g/dl (12.0-16.0); Mean Corpuscular Hemoglobin 30.2 pg (25.0-34.0); Mean Corpuscular Hgb Conc 31.3 g/dL (32.0-36.0); Mean Corpuscular Volume 96.5 fL (80.0-100.0); Mean Platelet Volume 12.3 fL (9.4-12.4); Platelet Count 189 K/uL (130-400); RDW Coefficient of Variation 15.8 % (11.5-14.5); RDW Standard Deviation 55.6 fL (36.4-46.3); Red Blood Count 3.11 M/uL (4.20-5.40); White Blood Count 15.09 K/ul (4.8-10.8)
[2023-03-04 06:50] LABS: BUN Creatinine Ratio 20.9 (10-20); Calcium 9.3 mg/dl (8.6-10.3); Creatinine Clr Calc Pharmacy 33.5 ml/min; Est GFR (African American) 41.2 ml/min; Est GFR (Non-African American) 35.6 ml/min; Magnesium 1.9 mg/dl (1.7-2.4); Phosphorus 4.5 mg/dl (2.5-4.9)
[2023-03-04 06:53] LABS: Basophils # (auto) 0.06 K/uL (0.00-0.20); Basophils % (auto) 0.4 %; Eosinophils # (auto) 0.05 K/uL (0.00-0.50); Eosinophils % (auto) 0.3 %; Immature Granulocytes # (auto) 0.44 K/uL (0.01-0.20); Immature Granulocytes % (auto) 2.9 %; Lymphocytes # (auto) 1.78 K/uL (1.20-3.40); Lymphocytes % (auto) 11.8 %; Monocytes # (auto) 5.72 K/uL (0.11-0.59); Monocytes % (auto) 37.9 %; Neutrophils # (auto) 7.04 K/uL (1.40-6.50); Neutrophils % (auto) 46.7 %; RBC Morphology Unremarkable
[2023-03-04] MEDS: BUDESONIDE 0.5 MG/2 ML VIAL (PULMICORT) NEB SCH ×2 (07:41→19:30)
[2023-03-04] MEDS: FORMOTEROL 20 MCG/2 ML VIAL NEB SCH ×2 (07:41→19:29)
--- NOTE | 2023-03-04 08:00 | Hospitalist Progress Note ---
Date of Service March 04, 2023 Assessment & Plan (1) Respiratory failure: Plan: Acute on chronic hypoxemic respiratory failure secondary to decompensated heart failure, hx diastolic dysfunction BNP 800s Respiratory panel negative Echocardiogram: EF 50 to 55%, mild concentric LVH, severe mitral regurgitation Improving On high flow O2 previously, then had L thoracentesis on 03/01/23 which improved oxygen requirement today on 6L (03/04) Lasix decreased to 60 IV bid, will hold now as Cr up today [employer] and pulmonary service consulted s/p L thoracentesis on 03/01/23 Cont suppl. O2, wean off accordingly, 4L at baseline WBC elevated today (03/03/23) Pt reports productive cough repeat CXR w/ pulm. vasc. congestion, pl. effusion and consolidation Pt possibly developing pna. No fevers, procal negat. Started empiric augmentin and doxy as trying to avoid any ivf sputum cultx ordered Palliative care service consulted Troponin elevation secondary to above Possible NSTEMI given patient chest pain complaints expressed to ER provider. --Denies active chest pain on exam --IV heparin - now stopped Continue aspirin, clopidogrel, and metoprolol succinate. Restarted atorvastatin (outpatient 80 mg daily). 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 lovenox subq DNR/DNI Disposition pending, palliative med. consulted, CM involved Admission and Anticipated Discharge Date Admission Date: February 25, 2023 Subjective Follow-up for CHF, acute hypoxic respiratory failure, etc. Underwent L thoracentesis Currently laying in bed in NAD, sleeping but awakens easily, on 6L of suppl. O2, her baseline is 4L Denies any chest pain, fevers chills, abdominal pain. She was coughing and reported + yellow sputum. Today cough seems to be dry and weak. Assisted her with flutter valve. Pulmonary medicine, cardiology and palliative care consulted. CM involved in DC needs. Review of Systems Review of Systems: All systems reviewed & are unremarkable except as noted in Subjective Physical Exam Physical Exam: General- WD/WN F in NAD, + chronically ill appearing, on suppl. O2 6L Eyes- anicteric Neck- supple Lungs- +diminished at the R base, no wheezes Heart- normal rate, regular rhythm; no murmurs Abdomen- normal bowel sounds, nondistended, soft, nontender Extremities- no pretibial edema, + L BKA, moves extremities Neuro- somewhat drowsy but awakens easy, speech fluent, able to answer simple questions appropriately, moves extremities Skin- warm & dry Results & Data Results & Data Vital Signs (Past 12 Hours) Vital Signs Temp Pulse Pulse Pulse Resp BP BP 03/04/23 07:41 88 20 03/04/23 07:12 116 H 03/04/23 06:26 03/04/23 04:26 36.6 C 69 18 96/50 L 03/04/23 03:00 36.5 C 69 20 97/61 L 03/04/23 00:00 03/03/23 23:00 78 03/03/23 22:56 36.7 C 73 18 93/51 L 03/03/23 21:00 Pulse Ox Pulse Ox O2 Del Method O2 Del Method O2 Flow Rate O2 Flow Rate 03/04/23 07:41 97 Nasal Cannula 4 03/04/23 07:12 03/04/23 06:26 93 Nasal Cannula 5 03/04/23 04:26 93 Nasal Cannula 6 03/04/23 03:00 98 Nasal Cannula 7 03/04/23 00:00 91 Nasal Cannula 7 03/03/23 23:00 03/03/23 22:56 93 Nasal Cannula 7.0 03/03/23 21:00 Nasal Cannula Laboratory Results 03/04/23 03/03/23 03/03/23 Range/Units 05:40 20:11 16:50 WBC 15.09 H (4.8-10.8) K/ul RBC 3.11 L (4.20-5.40) M/uL Hgb 9.4 L (12.0-16.0) g/dl Hct 30.0 L (37.0-47.0) % MCV 96.5 (80.0-100.0) fL MCH 30.2 (25.0-34.0) pg MCHC 31.3 L (32.0-36.0) g/dL RDW Std Deviation 55.6 H (36.4-46.3) fL RDW Coeff of Fabio 15.8 H (11.5-14.5) % Plt Count 189 (130-400) K/uL MPV 12.3 (9.4-12.4) fL Immature Gran % (Auto) 2.9 % Neut % (Auto) 46.7 % Lymph % (Auto) 11.8 % [place] % (Auto) 37.9 % Eos % (Auto) 0.3 % Baso % (Auto) 0.4 % Neut # (Auto) 7.04 H (1.40-6.50) K/uL Lymph # (Auto) 1.78 (1.20-3.40) K/uL [place] # (Auto) 5.72 H (0.11-0.59) K/uL Eos # (Auto) 0.05 (0.00-0.50) K/uL Baso # (Auto) 0.06 (0.00-0.20) K/uL Immature Gran # (Auto) 0.44 H (0.01-0.20) K/uL RBC Morphology Unremarkable Polychromasia Sodium 135 L (136-145) mmol/L Potassium 4.0 (3.5-5.1) mmol/L Chloride 97 L (98-107) mmol/L Carbon Dioxide 30 (21-32) mmol/L Anion Gap 8 (3-11) BUN 32 H (6-23) mg/dl Creatinine 1.53 H D (0.6-1.2) mg/dl Est Cr Clr Drug Dosing 33.5 ml/min Est GFR ( Amer) 41.2 ml/min Est GFR (Non-Af Amer) 35.6 ml/min BUN/Creatinine Ratio 20.9 H (10-20) Glucose 122 H (70-99(Fasting)) mg/dl POC Glucose 252 H 132 H (70-99) mg/dl Calcium 9.3 (8.6-10.3) mg/dl Phosphorus 4.5 (2.5-4.9) mg/dl Magnesium 1.9 (1.7-2.4) mg/dl Procalcitonin (0-0.5) ng/ml 03/03/23 03/03/23 03/03/23 Range/Units 12:05 08:44 08:04 WBC 16.23 H (4.8-10.8) K/ul RBC 3.17 L (4.20-5.40) M/uL Hgb 9.5 L (12.0-16.0) g/dl Hct 30.0 L (37.0-47.0) % MCV 94.6 (80.0-100.0) fL MCH 30.0 (25.0-34.0) pg MCHC 31.7 L (32.0-36.0) g/dL RDW Std Deviation 54.8 H (36.4-46.3) fL RDW Coeff of Fabio 15.9 H (11.5-14.5) % Plt Count 177 (130-400) K/uL MPV 12.2 (9.4-12.4) fL Immature Gran % (Auto) 2.3 % Neut % (Auto) 55.6 % Lymph % (Auto) 12.7 % [place] % (Auto) 29.0 % Eos % (Auto) 0.2 % Baso % (Auto) 0.2 % Neut # (Auto) 9.02 H (1.40-6.50) K/uL Lymph # (Auto) 2.06 (1.20-3.40) K/uL [place] # (Auto) 4.70 H (0.11-0.59) K/uL Eos # (Auto) 0.04 (0.00-0.50) K/uL Baso # (Auto) 0.04 (0.00-0.20) K/uL Immature Gran # (Auto) 0.37 H (0.01-0.20) K/uL RBC Morphology Polychromasia 1+ Sodium 135 L (136-145) mmol/L Potassium 4.2 (3.5-5.1) mmol/L Chloride 98 (98-107) mmol/L Carbon Dioxide 29 (21-32) mmol/L Anion Gap 8 (3-11) BUN 29 H (6-23) mg/dl Creatinine 1.21 H (0.6-1.2) mg/dl Est Cr Clr Drug Dosing 42.7 ml/min Est GFR ( Amer) 54.8 ml/min Est GFR (Non-Af Amer) 47.2 ml/min BUN/Creatinine Ratio 24.0 H (10-20) Glucose 94 (70-99(Fasting)) mg/dl POC Glucose 225 H 115 H (70-99) mg/dl Calcium 8.9 (8.6-10.3) mg/dl Phosphorus 4.7 (2.5-4.9) mg/dl Magnesium 2.0 (1.7-2.4) mg/dl Procalcitonin < 0.05 (0-0.5) ng/ml Medications Administered Current Inpatient Medications Acetaminophen (Acetaminophen 325 Mg Tab) 650 mg PO QID PRN PRN Reason: pain/fever Stop: 03/28/23 02:17 Last Admin: 03/03/23 21:05 Dose: 650 mg Amoxicillin/Clavulanate Potassium (Amoxicillin/Clavulanate 875 Mg Tab) 1 tab PO BIDM [facility]; Protocol Stop: 03/10/23 16:59 Last Admin: 03/03/23 16:18 Dose: 1 tab Aspirin (Aspirin 81 Mg Chew) 81 mg PO DAILY [facility] Stop: 03/29/23 16:14 Last Admin: 03/03/23 09:08 Dose: 81 mg Atorvastatin Calcium (Atorvastatin 40 Mg Tab) 80 mg PO HS [facility] Stop: 03/30/23 20:59 Last Admin: 03/03/23 20:57 Dose: 80 mg Budesonide (Budesonide 0.5 Mg/2 Ml Vial (Pulmicort)) 0.5 mg NEB BIDR [facility] Stop: 03/28/23 18:59 Last Admin: 03/04/23 07:41 Dose: 0.5 mg Clopidogrel Bisulfate (Clopidogrel Bisulfate 75 Mg Tab) 75 mg PO DAILY [facility] Stop: 03/28/23 08:59 Last Admin: 03/03/23 09:09 Dose: 75 mg Dextrose (Dextrose 50% 50 Ml Syringe) 25 - 50 ml IV UD PRN; Protocol PRN Reason: Hypoglycemia Protocol Stop: 03/27/23 23:33 Doxycycline Hyclate (Doxycycline Hyclate 100 Mg Cap) 100 mg PO BID [facility] Stop: 03/10/23 11:29 Last Admin: 03/03/23 20:56 Dose: 100 mg Duloxetine HCl (Duloxetine Hcl 30 Mg Cap) 30 mg PO DAILY [facility] Stop: 03/28/23 08:59 Last Admin: 03/03/23 09:10 Dose: 30 mg Duloxetine HCl (Duloxetine Hcl 60 Mg Cap) 60 mg PO DAILY [facility] Stop: 03/28/23 08:59 Last Admin: 03/03/23 09:07 Dose: 60 mg Enoxaparin Sodium (Enoxaparin Inj 30 Mg/0.3 Ml Syr) 30 mg SQ Q24H [facility] Stop: 04/01/23 17:59 Last Admin: 03/03/23 18:19 Dose: 30 mg Formoterol Fumarate (Formoterol 20 Mcg/2 Ml Vial) 20 mcg NEB BIDR [facility] Stop: 03/28/23 10:44 Last Admin: 03/04/23 07:41 Dose: 20 mcg Furosemide (Furosemide 40 Mg/4 Ml Vial) 60 mg IV BID17 [facility] Stop: 04/01/23 16:59 Last Admin: 03/03/23 16:21 Dose: 60 mg Gabapentin (Gabapentin 300 Mg Cap) 300 mg PO TID [facility] Stop: 04/02/23 20:59 Last Admin: 03/03/23 20:55 Dose: 300 mg Glucagon (Glucagon For Inj 1 Mg Vial) 1 mg SQ UD PRN; Protocol PRN Reason: Hypoglycemia Protocol Stop: 03/27/23 23:33 Glucose (Glucose 10 Tab/Tube) 4 - 8 tab PO UD PRN; Protocol PRN Reason: Hypoglycemia Treatment Stop: 03/27/23 23:33 Glucose (Glucose 40% Gel 15 Gm Tube) 15 - 30 gm PO UD PRN; Protocol PRN Reason: Hypoglycemia Protocol Stop: 03/27/23 23:33 Guaifenesin (Guaifenesin 600 Mg Tabcr) 600 mg PO Q12 [facility] Stop: 04/01/23 14:59 Last Admin: 03/03/23 20:55 Dose: 600 mg Promethazine HCl 6.25 mg/ (Sodium Chloride) 50.25 mls @ 201 mls/hr IV Q6H PRN PRN Reason: Nausea And Vomiting Stop: 03/28/23 02:17 Insulin Aspart (Insulin Aspart Per Unit Charge) 0 units SC ACHS [facility]; Protocol Stop: 03/27/23 23:44 Last Admin: 03/03/23 20:52 Dose: 5 units Insulin Glargine (Lantus Per Unit Charge) 20 units SC QAM [facility] Stop: 03/30/23 08:59 Last Admin: 03/03/23 09:58 Dose: 20 units Isosorbide Mononitrate (Isosorbide [place] Extended Rel 30 Mg Tabcr) 30 mg PO DAILY [facility] Stop: 03/28/23 08:59 Last Admin: 02/26/23 08:01 Dose: 30 mg Lisinopril (Lisinopril 5 Mg Tab) 5 mg PO QAM [facility] Stop: 03/28/23 08:59 Last Admin: 02/27/23 09:15 Dose: 5 mg Melatonin (Melatonin 3 Mg Tab) 4.5 mg PO HS PRN PRN Reason: Sleep Stop: 03/28/23 05:51 Last Admin: 03/03/23 21:05 Dose: 4.5 mg Metoprolol Succinate (Metoprolol Succ 50mg Ext Rel Tab) 50 mg PO BID [facility] Stop: 03/28/23 08:59 Last Admin: 03/03/23 20:56 Dose: 50 mg Miscellaneous (Carbohydrates For Hypoglycemia ) 15 - 30 gm PO UD PRN PRN Reason: Hypoglycemia Protocol Stop: 03/27/23 23:33 Miscellaneous (Remove Nicoderm Patch) 1 each N/A DAILY@0859 [facility] Stop: 03/28/23 08:58 Last Admin: 03/03/23 09:06 Dose: 1 each Miscellaneous Information (Pharmacy Glycemic Mgmt Consult) 1 each N/A UD PRN; Protocol PRN Reason: Consult Stop: 03/28/23 08:16 Nicotine (Nicotine 14 Mg/24 Hr Patch) 14 mg TD QAM [facility] Stop: 03/28/23 08:59 Last Admin: 03/03/23 09:20 Dose: 14 mg Olanzapine (Olanzapine 5 Mg Tablet) 5 mg PO HS [facility] Stop: 03/28/23 20:59 Last Admin: 03/03/23 20:57 Dose: 5 mg Olanzapine (Olanzapine 10 Mg/2.1 Ml Sdv) 2.5 mg IM Q4H PRN PRN Reason: Agitation Stop: 03/28/23 02:29 Last Admin: 02/26/23 17:12 Dose: 2.5 mg Pantoprazole Sodium (Pantoprazole 40 Mg Tab) 40 mg PO DAILY [facility] Stop: 03/28/23 08:59 Last Admin: 03/03/23 09:09 Dose: 40 mg Polyethylene Glycol (Polyethylene (Miralax) 17 Gm Pack) 17 gm PO DAILY [facility] Stop: 04/02/23 12:44 Last Admin: 03/03/23 13:49 Dose: 17 gm Potassium Chloride (Potassium Chloride Crtab 20 Meq Tabcr) 40 meq PO QAM [facility] Stop: 03/30/23 08:59 Last Admin: 03/03/23 09:08 Dose: 40 meq Ropinirole HCl (Ropinirole Hcl 1 Mg Tablet) 1 mg PO QPM [facility] Stop: 03/28/23 20:59 Last Admin: 03/03/23 20:58 Dose: 1 mg Sennosides (Senna 8.6 Mg Tab) 8.6 mg PO QAM [facility] Stop: 04/02/23 12:44 Last Admin: 03/03/23 13:50 Dose: 8.6 mg Topiramate (Topiramate 50 Mg Tab) 50 mg PO BID [facility] Stop: 03/28/23 08:59 Last Admin: 03/03/23 20:56 Dose: 50 mg
[2023-03-04] MEDS: guaiFENesin 600 MG TABCR PO SCH ×2 (09:04→21:01)
[2023-03-04] MEDS: AMOXICILLIN/CLAVULANATE 875 MG TAB PO SCH ×2 (09:05→17:34)
[2023-03-04] MEDS: SENNA 8.6 MG TAB PO SCH (09:06)
[2023-03-04] MEDS: DULoxetine HCL 30 MG CAP PO SCH (09:06)
[2023-03-04] MEDS: POLYETHYLENE (MIRALAX) 17 GM PACK PO SCH (09:06)
[2023-03-04] MEDS: CLOPIDOGREL BISULFATE 75 MG TAB PO SCH (09:08)
[2023-03-04] MEDS: DOXYCYCLINE HYCLATE 100 MG CAP PO SCH ×2 (09:09→21:03)
[2023-03-04] MEDS: ASPIRIN 81 MG CHEW PO SCH (09:09)
[2023-03-04] MEDS: GABAPENTIN 300 MG CAP PO SCH ×3 (09:10→21:01)
[2023-03-04] MEDS: DULoxetine HCL 60 MG CAP PO SCH (09:10)
[2023-03-04] MEDS: POTASSIUM CHLORIDE CRTAB 20 MEQ TABCR PO SCH (09:11)
[2023-03-04] MEDS: TOPIRAMATE 50 MG TAB PO SCH ×2 (09:11→21:03)
[2023-03-04] MEDS: METOPROLOL SUCC 50MG EXT REL TAB PO SCH ×2 (09:12→21:02)
[2023-03-04] MEDS: PANTOprazole 40 MG TAB PO SCH (09:13)
[2023-03-04] MEDS: LANTUS PER UNIT CHARGE SC SCH (09:21)
[2023-03-04] MEDS: INSULIN ASPART PER UNIT CHARGE SC SCH ×4 (09:22→20:58)
[2023-03-04] MEDS: NICOTINE 14 MG/24 HR PATCH TD SCH (10:25)
[2023-03-04] MEDS ORDERED: FUROSEMIDE 40 MG/4 ML VIAL IV SCH (17:00)
[2023-03-04] MEDS: ENOXAPARIN INJ 30 MG/0.3 ML SYR SQ SCH (17:45)
--- NOTE | 2023-03-04 20:10 | Cardiology Progress Note ---
Date of Service March 04, 2023 Assessment & Plan (1) Acute and chronic respiratory failure with hypoxia: Plan: she is still requiring higher supplemental O2 than she normally is on at home (2) Acute on chronic heart failure with preserved ejection fraction (HFpEF): Plan: she does not appear to be volume overloaded on exam And her BUN and Cr is up i think we can stop IV diuretics and switch to PO tomorrow but I would recommend doing torsemide 40mg daily would repeat CXR tomorrow-if the right sided effusion looks better then change to PO lasix-if not then would discuss with pulmonary about possibly a thoracentesis on the right side continue to monitor daily weights monitor I/os Daily kidney function and electrolytes (3) Mitral regurgitation: Plan: it is worse then prior; but not sure if it will be amendable to any procedure would consider a JUAN DAVID at some juncture to re-evaluate the MR better but not at this juncture and probably not this hospitalization (4) Pleural effusion, bilateral: Plan: repeat CXR tomorrow if right side still bad consider right sided thoracentesis Plan 62-year-old female admitted with acute on chronic respiratory failure due to congestive heart failure with layering bilateral pleural effusion. Left-sided thoracentesis performed 03/01/2023 without complication. Respiratory status improved. Cr still up again today which is why i do not think she can do any more IV diuretics; and would start torsemide 40mg daily cxr tomorrow to assess right sided effusion and possible need for thoracentesis Continue aspirin, clopidogrel, Toprol-XL, lisinopril, and atorvastatin. in regards to MR i do not think there is much we can do for i think she is not a good candidate for a redo open heart surgery. but could consider [facility] DAVID as an outpt at some juncture if pt clinically improves a lot Admission and Anticipated Discharge Date Admission Date: February 25, 2023 Subjective pt seen earlier this afternoon when she was sitting up and eating lunch she denies any lightheadedness or dizziness but still feels congested in her chest no chest pains Review of Systems Review of Systems: All systems reviewed & are unremarkable except as noted in HPI & below Physical Exam Physical Exam: aaox3, NAD NC/AT, EOMI Supple No JVD Nrl S1/S2, No murmur CTA b/l no w/r/r soft nt/nd no LE edema right; left BKA noted skin intact no focal deficits Results & Data Vital Signs (Past 12 Hours) Vital Signs Temp Pulse Pulse Resp BP BP Pulse Ox 03/04/23 19:30 73 16 93 03/04/23 19:00 36.5 C 76 20 126/74 93 03/04/23 15:13 85 16 130/71 95 03/04/23 14:00 79 03/04/23 11:45 97 03/04/23 11:39 74 18 119/47 L 97 03/04/23 08:32 36.6 C 63 16 101/55 L 97 O2 Del Method O2 Flow Rate 03/04/23 19:30 Nasal Cannula 6 03/04/23 19:00 Nebulizer 03/04/23 15:13 Nasal Cannula 5 03/04/23 14:00 03/04/23 11:45 Nasal Cannula 5 03/04/23 11:39 Nasal Cannula 5 03/04/23 08:32 Room Air Laboratory Results CBC 03/04/23 Range/Units 05:40 WBC 15.09 H (4.8-10.8) K/ul RBC 3.11 L (4.20-5.40) M/uL Hgb 9.4 L (12.0-16.0) g/dl Hct 30.0 L (37.0-47.0) % Plt Count 189 (130-400) K/uL Neut # (Auto) 7.04 H (1.40-6.50) K/uL Lymph # (Auto) 1.78 (1.20-3.40) K/uL [place] # (Auto) 5.72 H (0.11-0.59) K/uL Eos # (Auto) 0.05 (0.00-0.50) K/uL Baso # (Auto) 0.06 (0.00-0.20) K/uL Comprehensive Metabolic Panel 03/04/23 Range/Units 05:40 Sodium 135 L (136-145) mmol/L Potassium 4.0 (3.5-5.1) mmol/L Chloride 97 L (98-107) mmol/L Carbon Dioxide 30 (21-32) mmol/L BUN 32 H (6-23) mg/dl Creatinine 1.53 H D (0.6-1.2) mg/dl Glucose 122 H (70-99(Fasting)) mg/dl Calcium 9.3 (8.6-10.3) mg/dl Intake and Output 03/04/23 03/04/23 03/04/23 06:59 14:59 22:59 Intake Total 240 / 1170 Output Total 1375 / 4376 750 / 750 Balance -1135 / -3206 -750 / -750 Intake: Oral 240 / 1170 Output: Urine Amount (Catheter) 1375 / 4375 750 / 750 Brewer/Indwelling 1375 / 4375 750 / 750 Other: Weight 64.2 kg Weight Measurement Method Built in [facility] Medications Administered Current Inpatient Medications Acetaminophen (Acetaminophen 325 Mg Tab) 650 mg PO QID PRN PRN Reason: pain/fever Stop: 03/28/23 02:17 Last Admin: 03/03/23 21:05 Dose: 650 mg Amoxicillin/Clavulanate Potassium (Amoxicillin/Clavulanate 875 Mg Tab) 1 tab PO BIDM [facility]; Protocol Stop: 03/10/23 16:59 Last Admin: 03/04/23 17:34 Dose: 1 tab Aspirin (Aspirin 81 Mg Chew) 81 mg PO DAILY [facility] Stop: 03/29/23 16:14 Last Admin: 03/04/23 09:09 Dose: 81 mg Atorvastatin Calcium (Atorvastatin 40 Mg Tab) 80 mg PO HS [facility] Stop: 03/30/23 20:59 Last Admin: 03/03/23 20:57 Dose: 80 mg Budesonide (Budesonide 0.5 Mg/2 Ml Vial (Pulmicort)) 0.5 mg NEB BIDR [facility] Stop: 03/28/23 18:59 Last Admin: 03/04/23 19:30 Dose: 0.5 mg Clopidogrel Bisulfate (Clopidogrel Bisulfate 75 Mg Tab) 75 mg PO DAILY [facility] Stop: 03/28/23 08:59 Last Admin: 03/04/23 09:08 Dose: 75 mg Dextrose (Dextrose 50% 50 Ml Syringe) 25 - 50 ml IV UD PRN; Protocol PRN Reason: Hypoglycemia Protocol Stop: 03/27/23 23:33 Doxycycline Hyclate (Doxycycline Hyclate 100 Mg Cap) 100 mg PO BID [facility] Stop: 03/10/23 11:29 Last Admin: 03/04/23 09:09 Dose: 100 mg Duloxetine HCl (Duloxetine Hcl 30 Mg Cap) 30 mg PO DAILY [facility] Stop: 03/28/23 08:59 Last Admin: 03/04/23 09:06 Dose: 30 mg Duloxetine HCl (Duloxetine Hcl 60 Mg Cap) 60 mg PO DAILY [facility] Stop: 03/28/23 08:59 Last Admin: 03/04/23 09:10 Dose: 60 mg Enoxaparin Sodium (Enoxaparin Inj 30 Mg/0.3 Ml Syr) 30 mg SQ Q24H [facility] Stop: 04/01/23 17:59 Last Admin: 03/04/23 17:45 Dose: 30 mg Formoterol Fumarate (Formoterol 20 Mcg/2 Ml Vial) 20 mcg NEB BIDR [facility] Stop: 03/28/23 10:44 Last Admin: 03/04/23 19:29 Dose: 20 mcg Furosemide (Furosemide 40 Mg/4 Ml Vial) 40 mg IV BID17 [facility] Stop: 04/03/23 16:59 Gabapentin (Gabapentin 300 Mg Cap) 300 mg PO TID [facility] Stop: 04/02/23 20:59 Last Admin: 03/04/23 13:28 Dose: 300 mg Glucagon (Glucagon For Inj 1 Mg Vial) 1 mg SQ UD PRN; Protocol PRN Reason: Hypoglycemia Protocol Stop: 03/27/23 23:33 Glucose (Glucose 10 Tab/Tube) 4 - 8 tab PO UD PRN; Protocol PRN Reason: Hypoglycemia Treatment Stop: 03/27/23 23:33 Glucose (Glucose 40% Gel 15 Gm Tube) 15 - 30 gm PO UD PRN; Protocol PRN Reason: Hypoglycemia Protocol Stop: 03/27/23 23:33 Guaifenesin (Guaifenesin 600 Mg Tabcr) 600 mg PO Q12 [facility] Stop: 04/01/23 14:59 Last Admin: 03/04/23 09:04 Dose: 600 mg Promethazine HCl 6.25 mg/ (Sodium Chloride) 50.25 mls @ 201 mls/hr IV Q6H PRN PRN Reason: Nausea And Vomiting Stop: 03/28/23 02:17 Insulin Aspart (Insulin Aspart Per Unit Charge) 0 units SC ACHS [facility]; Protocol Stop: 03/27/23 23:44 Last Admin: 03/04/23 17:44 Dose: 12 units Insulin Glargine (Lantus Per Unit Charge) 20 units SC QAM [facility] Stop: 03/30/23 08:59 Last Admin: 03/04/23 09:21 Dose: 20 units Isosorbide Mononitrate (Isosorbide [place] Extended Rel 30 Mg Tabcr) 30 mg PO DAILY [facility] Stop: 03/28/23 08:59 Last Admin: 02/26/23 08:01 Dose: 30 mg Lisinopril (Lisinopril 5 Mg Tab) 5 mg PO QAM [facility] Stop: 03/28/23 08:59 Last Admin: 02/27/23 09:15 Dose: 5 mg Melatonin (Melatonin 3 Mg Tab) 4.5 mg PO HS PRN PRN Reason: Sleep Stop: 03/28/23 05:51 Last Admin: 03/03/23 21:05 Dose: 4.5 mg Metoprolol Succinate (Metoprolol Succ 50mg Ext Rel Tab) 50 mg PO BID [facility] Stop: 03/28/23 08:59 Last Admin: 03/04/23 09:12 Dose: 50 mg Miscellaneous (Carbohydrates For Hypoglycemia ) 15 - 30 gm PO UD PRN PRN Reason: Hypoglycemia Protocol Stop: 03/27/23 23:33 Miscellaneous (Remove Nicoderm Patch) 1 each N/A DAILY@0859 [facility] Stop: 03/28/23 08:58 Last Admin: 03/04/23 09:08 Dose: 1 each Miscellaneous Information (Pharmacy Glycemic Mgmt Consult) 1 each N/A UD PRN; Protocol PRN Reason: Consult Stop: 03/28/23 08:16 Nicotine (Nicotine 14 Mg/24 Hr Patch) 14 mg TD QAM [facility] Stop: 03/28/23 08:59 Last Admin: 03/04/23 10:25 Dose: 14 mg Olanzapine (Olanzapine 5 Mg Tablet) 5 mg PO HS [facility] Stop: 03/28/23 20:59 Last Admin: 03/03/23 20:57 Dose: 5 mg Olanzapine (Olanzapine 10 Mg/2.1 Ml Sdv) 2.5 mg IM Q4H PRN PRN Reason: Agitation Stop: 03/28/23 02:29 Last Admin: 02/26/23 17:12 Dose: 2.5 mg Pantoprazole Sodium (Pantoprazole 40 Mg Tab) 40 mg PO DAILY [facility] Stop: 03/28/23 08:59 Last Admin: 03/04/23 09:13 Dose: 40 mg Polyethylene Glycol (Polyethylene (Miralax) 17 Gm Pack) 17 gm PO DAILY [facility] Stop: 04/02/23 12:44 Last Admin: 03/04/23 09:06 Dose: Not Given Potassium Chloride (Potassium Chloride Crtab 20 Meq Tabcr) 40 meq PO QAM [facility] Stop: 03/30/23 08:59 Last Admin: 03/04/23 09:11 Dose: 40 meq Ropinirole HCl (Ropinirole Hcl 1 Mg Tablet) 1 mg PO QPM [facility] Stop: 03/28/23 20:59 Last Admin: 03/03/23 20:58 Dose: 1 mg Sennosides (Senna 8.6 Mg Tab) 8.6 mg PO QAM [facility] Stop: 04/02/23 12:44 Last Admin: 03/04/23 09:06 Dose: Not Given Topiramate (Topiramate 50 Mg Tab) 50 mg PO BID [facility] Stop: 03/28/23 08:59 Last Admin: 03/04/23 09:11 Dose: 50 mg (3) Mitral regurgitation Cardiac valve disease etiology: nonrheumatic Qualified Code(s): I34.0 - Nonrheumatic mitral (valve) insufficiency
[2023-03-04] MEDS: ATORVASTATIN 40 MG TAB PO SCH (21:01)
[2023-03-04] MEDS: rOPINIRole HCL 1 MG TABLET PO SCH (21:02)
[2023-03-04] MEDS: OLANZapine 5 MG TABLET PO SCH (21:02)
[2023-03-04] MEDS: ACETAMINOPHEN 325 MG TAB PO PRN (22:02)
[2023-03-05 05:56] LABS: Hematocrit (blood only) 27.3 % (37.0-47.0); Hemoglobin 8.7 g/dl (12.0-16.0); Mean Corpuscular Hemoglobin 30.3 pg (25.0-34.0); Mean Corpuscular Hgb Conc 31.9 g/dL (32.0-36.0); Mean Corpuscular Volume 95.1 fL (80.0-100.0); Platelet Count 198 K/uL (130-400); RDW Coefficient of Variation 15.6 % (11.5-14.5); RDW Standard Deviation 54.2 fL (36.4-46.3); Red Blood Count 2.87 M/uL (4.20-5.40); White Blood Count 15.59 K/ul (4.8-10.8)
[2023-03-05 06:07] LABS: Calcium 9.3 mg/dl (8.6-10.3); Creatinine Clr Calc Pharmacy 51.8 ml/min; Est GFR (Non-African American) 59.5 ml/min; Magnesium 1.8 mg/dl (1.7-2.4); Phosphorus 3.8 mg/dl (2.5-4.9); Potassium 4.6 mmol/L (3.5-5.1)
[2023-03-05] MEDS: BUDESONIDE 0.5 MG/2 ML VIAL (PULMICORT) NEB SCH ×2 (07:33→20:00)
[2023-03-05] MEDS: FORMOTEROL 20 MCG/2 ML VIAL NEB SCH ×2 (07:33→20:00)
--- NOTE | 2023-03-05 08:27 | Hospitalist Progress Note ---
Date of Service March 05, 2023 Assessment & Plan (1) Respiratory failure: Plan: Acute on chronic hypoxemic respiratory failure secondary to decompensated heart failure, hx diastolic dysfunction BNP 800s Respiratory panel negative Echocardiogram: EF 50 to 55%, mild concentric LVH, severe mitral regurgitation Improving On high flow O2 previously, then had L thoracentesis on 03/01/23 which improved oxygen requirement today on 4L (03/05) - which is pt's baseline Lasix decreased to 60 IV bid, now switched to torsemide Budesonide, Perforomist Hand Pattern Marker and pulmonary service consulted s/p L thoracentesis on 03/01/23 Cont suppl. O2, wean off accordingly, 4L at baseline WBC elevated on (03/03/23) Pt reports productive cough repeat CXR w/ pulm. vasc. congestion, pl. effusion and consolidation Pt possibly developing pna. No fevers, procal negat. Started empiric augmentin and doxy as trying to avoid any ivf sputum cultx ordered Palliative care service consulted Troponin elevation secondary to above Possible NSTEMI given patient chest pain complaints expressed to ER provider. --Denies active chest pain on exam --was on IV heparin initially Continue aspirin, clopidogrel, and metoprolol succinate. Restarted atorvastatin (outpatient 80 mg daily). 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 lovenox subq DNR/DNI Disposition pending, palliative med. consulted, CM involved Admission and Anticipated Discharge Date Admission Date: February 25, 2023 Subjective Follow-up for CHF, acute hypoxic respiratory failure, etc. Underwent L thoracentesis Currently laying in bed in NAD, on suppl. O2, 4L which is actually her baseline Denies any chest pain, fevers chills, abdominal pain. She was coughing and reported + yellow sputum. Today cough seems to be dry and weak. Assisted her with flutter valve. Pulmonary medicine, cardiology and palliative care consulted. CM involved in DC needs. Started on torsemide today. Review of Systems Review of Systems: All systems reviewed & are unremarkable except as noted in Subjective Physical Exam Physical Exam: General- WD/WN F in NAD, + chronically ill appearing, on suppl. O2 4L Eyes- anicteric Neck- supple Lungs- +rhonchi at L base, no wheezes Heart- normal rate, regular rhythm; no murmurs Abdomen- normal bowel sounds, nondistended, soft, nontender Extremities- no pretibial edema, + L BKA, moves extremities Neuro- awake, alert, speech fluent, able to answer simple questions appropriately, moves extremities Skin- warm & dry Results & Data Results & Data Vital Signs (Past 12 Hours) Vital Signs Temp Pulse Pulse Resp BP Pulse Ox Pulse Ox 03/05/23 07:57 36.4 C L 67 14 137/76 99 03/05/23 07:41 63 03/05/23 07:33 66 16 95 03/05/23 04:03 36.6 C 64 18 113/63 96 03/05/23 02:32 96 03/05/23 02:20 100 03/05/23 02:20 100 03/05/23 01:28 100 03/04/23 23:00 80 03/04/23 22:44 36.7 C 71 16 110/59 L 96 O2 Del Method O2 Del Method O2 Flow Rate O2 Flow Rate 03/05/23 07:57 Nasal Cannula 4 03/05/23 07:41 03/05/23 07:33 Nasal Cannula 4 03/05/23 04:03 Nasal Cannula 4 03/05/23 02:32 Nasal Cannula 4 03/05/23 02:20 Nasal Cannula 5 03/05/23 02:20 Nasal Cannula 5 03/05/23 01:28 Nasal Cannula 6 03/04/23 23:00 03/04/23 22:44 Nasal Cannula 6 Laboratory Results 03/05/23 03/05/23 03/04/23 Range/Units 06:59 05:15 20:04 WBC 15.59 H (4.8-10.8) K/ul RBC 2.87 L (4.20-5.40) M/uL Hgb 8.7 L (12.0-16.0) g/dl Hct 27.3 L (37.0-47.0) % MCV 95.1 (80.0-100.0) fL MCH 30.3 (25.0-34.0) pg MCHC 31.9 L (32.0-36.0) g/dL RDW Std Deviation 54.2 H (36.4-46.3) fL RDW Coeff of Fabio 15.6 H (11.5-14.5) % Plt Count 198 (130-400) K/uL MPV 12.0 (9.4-12.4) fL Sodium 135 L (136-145) mmol/L Potassium 4.6 (3.5-5.1) mmol/L Chloride 102 (98-107) mmol/L Carbon Dioxide 26 (21-32) mmol/L Anion Gap 7 (3-11) BUN 28 H (6-23) mg/dl Creatinine 1.00 D (0.6-1.2) mg/dl Est Cr Clr Drug Dosing 51.8 ml/min Est GFR ( Amer) 69.0 ml/min Est GFR (Non-Af Amer) 59.5 ml/min BUN/Creatinine Ratio 28.0 H (10-20) Glucose 199 H (70-99(Fasting)) mg/dl POC Glucose 204 H 213 H (70-99) mg/dl Calcium 9.3 (8.6-10.3) mg/dl Phosphorus 3.8 (2.5-4.9) mg/dl Magnesium 1.8 (1.7-2.4) mg/dl 03/04/23 03/04/23 03/04/23 Range/Units 15:48 11:23 11:21 WBC (4.8-10.8) K/ul RBC (4.20-5.40) M/uL Hgb (12.0-16.0) g/dl Hct (37.0-47.0) % MCV (80.0-100.0) fL MCH (25.0-34.0) pg MCHC (32.0-36.0) g/dL RDW Std Deviation (36.4-46.3) fL RDW Coeff of Fabio (11.5-14.5) % Plt Count (130-400) K/uL MPV (9.4-12.4) fL Sodium (136-145) mmol/L Potassium (3.5-5.1) mmol/L Chloride (98-107) mmol/L Carbon Dioxide (21-32) mmol/L Anion Gap (3-11) BUN (6-23) mg/dl Creatinine (0.6-1.2) mg/dl Est Cr Clr Drug Dosing ml/min Est GFR ( Amer) ml/min Est GFR (Non-Af Amer) ml/min BUN/Creatinine Ratio (10-20) Glucose (70-99(Fasting)) mg/dl POC Glucose 252 H 277 H 316 H* (70-99) mg/dl Calcium (8.6-10.3) mg/dl Phosphorus (2.5-4.9) mg/dl Magnesium (1.7-2.4) mg/dl Medications Administered Current Inpatient Medications Acetaminophen (Acetaminophen 325 Mg Tab) 650 mg PO QID PRN PRN Reason: pain/fever Stop: 03/28/23 02:17 Last Admin: 03/04/23 22:02 Dose: 650 mg Amoxicillin/Clavulanate Potassium (Amoxicillin/Clavulanate 875 Mg Tab) 1 tab PO BIDM [facility]; Protocol Stop: 03/10/23 16:59 Last Admin: 03/04/23 17:34 Dose: 1 tab Aspirin (Aspirin 81 Mg Chew) 81 mg PO DAILY [facility] Stop: 03/29/23 16:14 Last Admin: 03/04/23 09:09 Dose: 81 mg Atorvastatin Calcium (Atorvastatin 40 Mg Tab) 80 mg PO HS [facility] Stop: 03/30/23 20:59 Last Admin: 03/04/23 21:01 Dose: 80 mg Budesonide (Budesonide 0.5 Mg/2 Ml Vial (Pulmicort)) 0.5 mg NEB BIDR [facility] Stop: 03/28/23 18:59 Last Admin: 03/05/23 07:33 Dose: 0.5 mg Clopidogrel Bisulfate (Clopidogrel Bisulfate 75 Mg Tab) 75 mg PO DAILY [facility] Stop: 03/28/23 08:59 Last Admin: 03/04/23 09:08 Dose: 75 mg Dextrose (Dextrose 50% 50 Ml Syringe) 25 - 50 ml IV UD PRN; Protocol PRN Reason: Hypoglycemia Protocol Stop: 03/27/23 23:33 Doxycycline Hyclate (Doxycycline Hyclate 100 Mg Cap) 100 mg PO BID [facility] Stop: 03/10/23 11:29 Last Admin: 03/04/23 21:03 Dose: 100 mg Duloxetine HCl (Duloxetine Hcl 30 Mg Cap) 30 mg PO DAILY [facility] Stop: 03/28/23 08:59 Last Admin: 03/04/23 09:06 Dose: 30 mg Duloxetine HCl (Duloxetine Hcl 60 Mg Cap) 60 mg PO DAILY [facility] Stop: 03/28/23 08:59 Last Admin: 03/04/23 09:10 Dose: 60 mg Enoxaparin Sodium (Enoxaparin Inj 30 Mg/0.3 Ml Syr) 30 mg SQ Q24H [facility] Stop: 04/01/23 17:59 Last Admin: 03/04/23 17:45 Dose: 30 mg Formoterol Fumarate (Formoterol 20 Mcg/2 Ml Vial) 20 mcg NEB BIDR [facility] Stop: 03/28/23 10:44 Last Admin: 03/05/23 07:33 Dose: 20 mcg Gabapentin (Gabapentin 300 Mg Cap) 300 mg PO TID [facility] Stop: 04/02/23 20:59 Last Admin: 03/04/23 21:01 Dose: 300 mg Glucagon (Glucagon For Inj 1 Mg Vial) 1 mg SQ UD PRN; Protocol PRN Reason: Hypoglycemia Protocol Stop: 03/27/23 23:33 Glucose (Glucose 10 Tab/Tube) 4 - 8 tab PO UD PRN; Protocol PRN Reason: Hypoglycemia Treatment Stop: 03/27/23 23:33 Glucose (Glucose 40% Gel 15 Gm Tube) 15 - 30 gm PO UD PRN; Protocol PRN Reason: Hypoglycemia Protocol Stop: 03/27/23 23:33 Guaifenesin (Guaifenesin 600 Mg Tabcr) 600 mg PO Q12 [facility] Stop: 04/01/23 14:59 Last Admin: 03/04/23 21:01 Dose: 600 mg Promethazine HCl 6.25 mg/ (Sodium Chloride) 50.25 mls @ 201 mls/hr IV Q6H PRN PRN Reason: Nausea And Vomiting Stop: 03/28/23 02:17 Insulin Aspart (Insulin Aspart Per Unit Charge) 0 units SC ACHS [facility]; Protocol Stop: 03/27/23 23:44 Last Admin: 03/04/23 20:58 Dose: 3 units Insulin Glargine (Lantus Per Unit Charge) 25 units SC QAM [facility] Stop: 04/04/23 08:59 Isosorbide Mononitrate (Isosorbide [place] Extended Rel 30 Mg Tabcr) 30 mg PO DAILY [facility] Stop: 03/28/23 08:59 Last Admin: 02/26/23 08:01 Dose: 30 mg Lisinopril (Lisinopril 5 Mg Tab) 5 mg PO QAM [facility] Stop: 03/28/23 08:59 Last Admin: 02/27/23 09:15 Dose: 5 mg Melatonin (Melatonin 3 Mg Tab) 4.5 mg PO HS PRN PRN Reason: Sleep Stop: 03/28/23 05:51 Last Admin: 03/03/23 21:05 Dose: 4.5 mg Metoprolol Succinate (Metoprolol Succ 50mg Ext Rel Tab) 50 mg PO BID [facility] Stop: 03/28/23 08:59 Last Admin: 03/04/23 21:02 Dose: 50 mg Miscellaneous (Carbohydrates For Hypoglycemia ) 15 - 30 gm PO UD PRN PRN Reason: Hypoglycemia Protocol Stop: 03/27/23 23:33 Miscellaneous (Remove Nicoderm Patch) 1 each N/A DAILY@0859 [facility] Stop: 03/28/23 08:58 Last Admin: 03/04/23 09:08 Dose: 1 each Miscellaneous Information (Pharmacy Glycemic Mgmt Consult) 1 each N/A UD PRN; Protocol PRN Reason: Consult Stop: 03/28/23 08:16 Nicotine (Nicotine 14 Mg/24 Hr Patch) 14 mg TD QAM [facility] Stop: 03/28/23 08:59 Last Admin: 03/04/23 10:25 Dose: 14 mg Olanzapine (Olanzapine 5 Mg Tablet) 5 mg PO HS [facility] Stop: 03/28/23 20:59 Last Admin: 03/04/23 21:02 Dose: 5 mg Olanzapine (Olanzapine 10 Mg/2.1 Ml Sdv) 2.5 mg IM Q4H PRN PRN Reason: Agitation Stop: 03/28/23 02:29 Last Admin: 02/26/23 17:12 Dose: 2.5 mg Pantoprazole Sodium (Pantoprazole 40 Mg Tab) 40 mg PO DAILY [facility] Stop: 03/28/23 08:59 Last Admin: 03/04/23 09:13 Dose: 40 mg Polyethylene Glycol (Polyethylene (Miralax) 17 Gm Pack) 17 gm PO DAILY [facility] Stop: 04/02/23 12:44 Last Admin: 03/04/23 09:06 Dose: Not Given Potassium Chloride (Potassium Chloride Crtab 20 Meq Tabcr) 40 meq PO QAM [facility] Stop: 03/30/23 08:59 Last Admin: 03/04/23 09:11 Dose: 40 meq Ropinirole HCl (Ropinirole Hcl 1 Mg Tablet) 1 mg PO QPM [facility] Stop: 03/28/23 20:59 Last Admin: 03/04/23 21:02 Dose: 1 mg Sennosides (Senna 8.6 Mg Tab) 8.6 mg PO QAM [facility] Stop: 04/02/23 12:44 Last Admin: 03/04/23 09:06 Dose: Not Given Topiramate (Topiramate 50 Mg Tab) 50 mg PO BID [facility] Stop: 03/28/23 08:59 Last Admin: 03/04/23 21:03 Dose: 50 mg Torsemide (Torsemide 10 Mg Tab) 40 mg PO QAM [facility] Stop: 04/04/23 08:59
--- NOTE | 2023-03-05 09:23 | XRay Report ---
XR chest 2V PA/lateral CLINICAL HISTORY: reassess right sided effusion COMPARISON STUDY: Chest CT November 18, 2022. Chest radiograph March 03, 2023. FINDINGS: There is no pneumothorax. Small bilateral pleural effusions have decreased in size since ch est radiograph of March 03, 2023. Cardiomediastinal silhouette is stable. There are median sternoto my wires and mediastinal surgical clips. Bilateral airspace opacities within the lungs have also impr nabil. IMPRESSION: Small bilateral pleural effusions, decreased in size since prior chest radiograph. ACT 112: Negative or not required by law. Electronically signed by: Grover Delacruz M.D. 03/05/2023 9:21 AM
[2023-03-05] MEDS: PANTOprazole 40 MG TAB PO SCH (09:51)
[2023-03-05] MEDS: ASPIRIN 81 MG CHEW PO SCH (09:52)
[2023-03-05] MEDS: CLOPIDOGREL BISULFATE 75 MG TAB PO SCH (09:52)
[2023-03-05] MEDS: SENNA 8.6 MG TAB PO SCH (09:53)
[2023-03-05] MEDS: DOXYCYCLINE HYCLATE 100 MG CAP PO SCH ×2 (09:53→20:44)
[2023-03-05] MEDS: AMOXICILLIN/CLAVULANATE 875 MG TAB PO SCH ×2 (09:54→17:16)
[2023-03-05] MEDS: TOPIRAMATE 50 MG TAB PO SCH ×2 (09:54→20:45)
[2023-03-05] MEDS: guaiFENesin 600 MG TABCR PO SCH ×2 (09:55→20:44)
[2023-03-05] MEDS: POTASSIUM CHLORIDE CRTAB 20 MEQ TABCR PO SCH (09:55)
[2023-03-05] MEDS: METOPROLOL SUCC 50MG EXT REL TAB PO SCH ×2 (09:55→20:43)
[2023-03-05] MEDS: GABAPENTIN 300 MG CAP PO SCH ×3 (09:56→20:44)
[2023-03-05] MEDS: DULoxetine HCL 30 MG CAP PO SCH (09:56)
[2023-03-05] MEDS: DULoxetine HCL 60 MG CAP PO SCH (09:56)
[2023-03-05] MEDS: TORSEMIDE 10 MG TAB PO SCH (09:57)
[2023-03-05] MEDS: POLYETHYLENE (MIRALAX) 17 GM PACK PO SCH (09:58)
[2023-03-05] MEDS: LANTUS PER UNIT CHARGE SC SCH (10:08)
[2023-03-05] MEDS: INSULIN ASPART PER UNIT CHARGE SC SCH ×4 (10:09→20:57)
[2023-03-05] MEDS: NICOTINE 14 MG/24 HR PATCH TD SCH (10:10)
--- NOTE | 2023-03-05 13:27 | Pharmacy Report ---
Pharmacy Glycemic Short Note 2 - Date of Service March 05, 2023 - Glycemic Short BSG Results (Last 24 hours): 03/04/23 03/04/23 03/05/23 15:48 20:04 05:15 Glucose 199 H POC Glucose 252 H 213 H 03/05/23 03/05/23 03/05/23 06:59 11:31 12:10 Glucose POC Glucose 204 H 253 H 238 H OUTPATIENT ANTIDIABETIC REGIMEN: * Lantus 35 units SC AM * HbA1c: 9.9% (02/25/23) ASSESSMENT: 03/05: * Patient received total of 61 units of insulin yesterday, of which 20 units were basal * Fasting BSG 199 mg/dL - will increase basal to 25 units this AM * BSG yesterday all in >200s, will tighten novolog this AM. Unclear reasoning for BSGs rising yesterday, no steroids 03/03: * Rizwana received 38 units of insulin yesterday, 20 basal + 18 bolus. BSGs were [phone] mg/dL. * Fasting BSG 115 mg/dL this AM. * Stressors stable. No change to insulin regimen today. 03/01: * Patient received total 42 units of insulin yesterday; 25 units basal and 17 units bolus. * BSGs yesterday were 275-181-82-135 mg/dl. Novolog parameters continued the same. * Fasting BSG was 97 mg/dl today. Basal dose reduced to 20 units in AM only (none at HS). 02/27: * BSGs have trended downward with multiple doses of IV insulin+ home lantus given yesterday. * Fasting this AM 162 mg/dL- patient is now NPO, will scale to ~80% of home dose * Continue current novolog parameters, noon check 136 mg/dL 02/26: * 62 yo F admitted on 02/25/23 secondary to respiratory failure. Pharmacy has been consulted to assist with inpatient glycemic management. Patient is a Type 2 diabetic as an outpatient. Please refer to outpatient regimen and most recent HbA1c above. * BSG last night was 382 mg/dL. Patient was and remains NPO. Heparin drip infusing. No abx. No steroids. * Overnight, BSGs were 462 and 370 mg/dL. Patient received two separate basal doses, one was 10 units and the other was 15 units (around 0000 and 0300). 13 units of Novolog were given for the BSG of 462 mg/dL. * Fasting was 381 mg/dL this AM. Will give another 10 units basal to equal total daily dose of 35 units today (matches home regimen). Also gave a 5 unit IV push of insulin this morning. Potassium was 3.9 so no replacement was ordered. Novolog was tightened as well. * Lunchtime BSG was 326 mg/dL, improved but not close to goal. Will not tighten Novolog or Lantus further at this point as patient is receiving much more insulin than used to at home. A1c is not at goal so home basal dose may not be adequate. Plan to give a 10 unit IV push of insulin with lunch in addition to Novolog coverage. Spoke with provider and will give 2 K-riders empirically given second IV bolus of the day. Hopefully, this will help bring BSGs down below 250 mg/dL. * Will have second shift pharmacist review dinner BSG and plan to start IV insulin infusion if BSG > 300 mg/dL. May possibly need more basal at bedtime. PLAN FOR INPATIENT GLYCEMIC CONTROL: * Basal insulin * Lantus 25 units SC AM * Bolus insulin * NovoLog per scale ACHS or Q6hrs while NPO * Goal Range: Low 110 mg/dL - High 140 mg/dL * Correction Factor: 20 mg/dL/unit * Nutritional / Prandial insulin per carb ratio of 1 unit per 5 grams CHO consumed
--- NOTE | 2023-03-05 17:06 | Cardiology Progress Note ---
Date of Service March 05, 2023 Assessment & Plan (1) Acute and chronic respiratory failure with hypoxia: Plan: she is on her normal dose of supplemental O2 than she normally is on at home (2) Acute on chronic heart failure with preserved ejection fraction (HFpEF): Plan: repeat CXR looks better started torsemide today continue to monitor daily weights monitor I/os Daily kidney function and electrolytes (3) Mitral regurgitation: Plan: it is worse then prior; but not sure if it will be amendable to any procedure would consider a JUAN DAVID at some juncture to re-evaluate the MR better but not at this juncture and probably not this hospitalization (4) Pleural effusion, bilateral: Plan: improved based on CXR Plan 62-year-old female admitted with acute on chronic respiratory failure due to congestive heart failure with layering bilateral pleural effusion. Left-sided thoracentesis performed 03/01/2023 without complication. Respiratory status improved. torsemide started today Continue aspirin, clopidogrel, Toprol-XL, lisinopril, and atorvastatin. in regards to MR i do not think there is much we can do for i think she is not a good candidate for a redo open heart surgery. but could consider JUAN DAVID as an outpt at some juncture if pt clinically improves a lot Admission and Anticipated Discharge Date Admission Date: February 25, 2023 Subjective Pt seen in cardiology f/u earlier today due to acute on chronic heart failure and severe MR repeat CXR today looks better still has some SOB, no CP or palpitations pt is feeling better on her home amount of supplemental O2 Review of Systems Review of Systems: All systems reviewed & are unremarkable except as noted in HPI & below Physical Exam Physical Exam: aaox3, NAD NC/AT, EOMI Supple No JVD Nrl S1/S2, No murmur CTA b/l no w/r/r soft nt/nd no LE edema right; left BKA noted skin intact no focal deficits Results & Data Vital Signs (Past 12 Hours) Vital Signs Temp Pulse Pulse Resp BP Pulse Ox O2 Del Method 03/05/23 15:51 85 03/05/23 15:51 36.5 C 80 16 115/64 92 Nasal Cannula 03/05/23 15:35 94 Nasal Cannula 03/05/23 15:32 84 L Nasal Cannula 03/05/23 14:36 94 Nasal Cannula 03/05/23 11:54 37.0 C 81 14 123/61 94 Nasal Cannula 03/05/23 10:00 99 Nasal Cannula 03/05/23 07:57 36.4 C L 67 14 137/76 99 Nasal Cannula 03/05/23 07:41 63 03/05/23 07:33 66 16 95 Nasal Cannula 03/05/23 07:15 Nasal Cannula O2 Flow Rate 03/05/23 15:51 03/05/23 15:51 2 03/05/23 15:35 3 03/05/23 15:32 2 03/05/23 14:36 3 03/05/23 11:54 4 03/05/23 10:00 3 03/05/23 07:57 4 03/05/23 07:41 03/05/23 07:33 4 03/05/23 07:15 4 Laboratory Results CBC 03/05/23 Range/Units 05:15 WBC 15.59 H (4.8-10.8) K/ul RBC 2.87 L (4.20-5.40) M/uL Hgb 8.7 L (12.0-16.0) g/dl Hct 27.3 L (37.0-47.0) % Plt Count 198 (130-400) K/uL Comprehensive Metabolic Panel 03/05/23 Range/Units 05:15 Sodium 135 L (136-145) mmol/L Potassium 4.6 (3.5-5.1) mmol/L Chloride 102 (98-107) mmol/L Carbon Dioxide 26 (21-32) mmol/L BUN 28 H (6-23) mg/dl Creatinine 1.00 D (0.6-1.2) mg/dl Glucose 199 H (70-99(Fasting)) mg/dl Calcium 9.3 (8.6-10.3) mg/dl Intake and Output 03/05/23 03/05/23 03/05/23 06:59 14:59 22:59 Intake Total 450 / 1150 840 / 840 Output Total 1800 / 3200 1450 / 1450 Balance -1350 / -2050 -610 / -610 Intake: Oral 450 / 1150 840 / 840 Output: Urine Amount (Catheter) 1800 / 3200 1450 / 1450 Brewer/Indwelling 1800 / 3200 1450 / 1450 Other: Weight 65.8 kg Weight Measurement Method Built in [facility] Diagnostic Findings CXR 03/05/2023 based on my independent interpretation improvement in the right pleural effusion Medications Administered Current Inpatient Medications Acetaminophen (Acetaminophen 325 Mg Tab) 650 mg PO QID PRN PRN Reason: pain/fever Stop: 03/28/23 02:17 Last Admin: 03/04/23 22:02 Dose: 650 mg Amoxicillin/Clavulanate Potassium (Amoxicillin/Clavulanate 875 Mg Tab) 1 tab PO BIDM [facility]; Protocol Stop: 03/10/23 16:59 Last Admin: 03/05/23 09:54 Dose: 1 tab Aspirin (Aspirin 81 Mg Chew) 81 mg PO DAILY [facility] Stop: 03/29/23 16:14 Last Admin: 03/05/23 09:52 Dose: 81 mg Atorvastatin Calcium (Atorvastatin 40 Mg Tab) 80 mg PO HS [facility] Stop: 03/30/23 20:59 Last Admin: 03/04/23 21:01 Dose: 80 mg Budesonide (Budesonide 0.5 Mg/2 Ml Vial (Pulmicort)) 0.5 mg NEB BIDR [facility] Stop: 03/28/23 18:59 Last Admin: 03/05/23 07:33 Dose: 0.5 mg Clopidogrel Bisulfate (Clopidogrel Bisulfate 75 Mg Tab) 75 mg PO DAILY [facility] Stop: 03/28/23 08:59 Last Admin: 03/05/23 09:52 Dose: 75 mg Dextrose (Dextrose 50% 50 Ml Syringe) 25 - 50 ml IV UD PRN; Protocol PRN Reason: Hypoglycemia Protocol Stop: 03/27/23 23:33 Doxycycline Hyclate (Doxycycline Hyclate 100 Mg Cap) 100 mg PO BID [facility] Stop: 03/10/23 11:29 Last Admin: 03/05/23 09:53 Dose: 100 mg Duloxetine HCl (Duloxetine Hcl 30 Mg Cap) 30 mg PO DAILY [facility] Stop: 03/28/23 08:59 Last Admin: 03/05/23 09:56 Dose: 30 mg Duloxetine HCl (Duloxetine Hcl 60 Mg Cap) 60 mg PO DAILY [facility] Stop: 03/28/23 08:59 Last Admin: 03/05/23 09:56 Dose: 60 mg Enoxaparin Sodium (Enoxaparin Inj 30 Mg/0.3 Ml Syr) 30 mg SQ Q24H [facility] Stop: 04/01/23 17:59 Last Admin: 03/04/23 17:45 Dose: 30 mg Formoterol Fumarate (Formoterol 20 Mcg/2 Ml Vial) 20 mcg NEB BIDR [facility] Stop: 03/28/23 10:44 Last Admin: 03/05/23 07:33 Dose: 20 mcg Gabapentin (Gabapentin 300 Mg Cap) 300 mg PO TID [facility] Stop: 04/02/23 20:59 Last Admin: 03/05/23 13:52 Dose: 300 mg Glucagon (Glucagon For Inj 1 Mg Vial) 1 mg SQ UD PRN; Protocol PRN Reason: Hypoglycemia Protocol Stop: 03/27/23 23:33 Glucose (Glucose 10 Tab/Tube) 4 - 8 tab PO UD PRN; Protocol PRN Reason: Hypoglycemia Treatment Stop: 03/27/23 23:33 Glucose (Glucose 40% Gel 15 Gm Tube) 15 - 30 gm PO UD PRN; Protocol PRN Reason: Hypoglycemia Protocol Stop: 03/27/23 23:33 Guaifenesin (Guaifenesin 600 Mg Tabcr) 600 mg PO Q12 [facility] Stop: 04/01/23 14:59 Last Admin: 03/05/23 09:55 Dose: 600 mg Promethazine HCl 6.25 mg/ (Sodium Chloride) 50.25 mls @ 201 mls/hr IV Q6H PRN PRN Reason: Nausea And Vomiting Stop: 03/28/23 02:17 Insulin Aspart (Insulin Aspart Per Unit Charge) 0 units SC [facility]; Protocol Stop: 03/27/23 23:44 Last Admin: 03/05/23 12:53 Dose: 17 units Insulin Glargine (Lantus Per Unit Charge) 25 units SC [facility] Stop: 04/04/23 08:59 Last Admin: 03/05/23 10:08 Dose: 25 units Isosorbide Mononitrate (Isosorbide [place] Extended Rel 30 Mg Tabcr) 30 mg PO DAILY [facility] Stop: 03/28/23 08:59 Last Admin: 02/26/23 08:01 Dose: 30 mg Lisinopril (Lisinopril 5 Mg Tab) 5 mg PO QAM [facility] Stop: 03/28/23 08:59 Last Admin: 02/27/23 09:15 Dose: 5 mg Melatonin (Melatonin 3 Mg Tab) 4.5 mg PO HS PRN PRN Reason: Sleep Stop: 03/28/23 05:51 Last Admin: 03/03/23 21:05 Dose: 4.5 mg Metoprolol Succinate (Metoprolol Succ 50mg Ext Rel Tab) 50 mg PO BID [facility] Stop: 03/28/23 08:59 Last Admin: 03/05/23 09:55 Dose: 50 mg Miscellaneous (Carbohydrates For Hypoglycemia ) 15 - 30 gm PO UD PRN PRN Reason: Hypoglycemia Protocol Stop: 03/27/23 23:33 Miscellaneous (Remove Nicoderm Patch) 1 each N/A DAILY@0859 [facility] Stop: 03/28/23 08:58 Last Admin: 03/05/23 09:51 Dose: 1 each Miscellaneous Information (Pharmacy Glycemic Mgmt Consult) 1 each N/A UD PRN; Protocol PRN Reason: Consult Stop: 03/28/23 08:16 Nicotine (Nicotine 14 Mg/24 Hr Patch) 14 mg TD QAM [facility] Stop: 03/28/23 08:59 Last Admin: 03/05/23 10:10 Dose: 14 mg Olanzapine (Olanzapine 5 Mg Tablet) 5 mg PO HS [facility] Stop: 03/28/23 20:59 Last Admin: 03/04/23 21:02 Dose: 5 mg Olanzapine (Olanzapine 10 Mg/2.1 Ml Sdv) 2.5 mg IM Q4H PRN PRN Reason: Agitation Stop: 03/28/23 02:29 Last Admin: 02/26/23 17:12 Dose: 2.5 mg Pantoprazole Sodium (Pantoprazole 40 Mg Tab) 40 mg PO DAILY [facility] Stop: 03/28/23 08:59 Last Admin: 03/05/23 09:51 Dose: 40 mg Polyethylene Glycol (Polyethylene (Miralax) 17 Gm Pack) 17 gm PO DAILY [facility] Stop: 04/02/23 12:44 Last Admin: 03/05/23 09:58 Dose: 17 gm Potassium Chloride (Potassium Chloride Crtab 20 Meq Tabcr) 40 meq PO QAM [facility] Stop: 03/30/23 08:59 Last Admin: 03/05/23 09:55 Dose: 40 meq Ropinirole HCl (Ropinirole Hcl 1 Mg Tablet) 1 mg PO QPM [facility] Stop: 03/28/23 20:59 Last Admin: 03/04/23 21:02 Dose: 1 mg Sennosides (Senna 8.6 Mg Tab) 8.6 mg PO QAM [facility] Stop: 04/02/23 12:44 Last Admin: 03/05/23 09:53 Dose: Not Given Topiramate (Topiramate 50 Mg Tab) 50 mg PO BID [facility] Stop: 03/28/23 08:59 Last Admin: 03/05/23 09:54 Dose: 50 mg Torsemide (Torsemide 10 Mg Tab) 40 mg PO QAM [facility] Stop: 04/04/23 08:59 Last Admin: 03/05/23 09:57 Dose: 40 mg (3) Mitral regurgitation Cardiac valve disease etiology: nonrheumatic Qualified Code(s): I34.0 - Nonrheumatic mitral (valve) insufficiency
[2023-03-05] MEDS: ENOXAPARIN INJ 30 MG/0.3 ML SYR SQ SCH (18:15)
[2023-03-05] MEDS: OLANZapine 5 MG TABLET PO SCH (20:43)
[2023-03-05] MEDS: rOPINIRole HCL 1 MG TABLET PO SCH (20:43)
[2023-03-05] MEDS: ATORVASTATIN 40 MG TAB PO SCH (20:44)
[2023-03-05] MEDS: MELATONIN 3 MG TAB PO PRN (20:58)
[2023-03-06] MEDS: BUDESONIDE 0.5 MG/2 ML VIAL (PULMICORT) NEB SCH ×2 (07:08→20:18)
[2023-03-06] MEDS: FORMOTEROL 20 MCG/2 ML VIAL NEB SCH ×2 (07:08→20:18)
[2023-03-06 07:48] LABS: Hematocrit (blood only) 31.6 % (37.0-47.0); Hemoglobin 9.7 g/dl (12.0-16.0); Mean Corpuscular Hemoglobin 29.9 pg (25.0-34.0); Mean Corpuscular Hgb Conc 30.7 g/dL (32.0-36.0); Mean Corpuscular Volume 97.5 fL (80.0-100.0); Mean Platelet Volume 11.7 fL (9.4-12.4); Platelet Count 233 K/uL (130-400); RDW Coefficient of Variation 15.5 % (11.5-14.5); RDW Standard Deviation 55.1 fL (36.4-46.3); Red Blood Count 3.24 M/uL (4.20-5.40); White Blood Count 12.59 K/ul (4.8-10.8)
[2023-03-06 08:17] LABS: BUN Creatinine Ratio 23.5 (10-20); Calcium 9.4 mg/dl (8.6-10.3); Est GFR (African American) 58.2 ml/min; Est GFR (Non-African American) 50.2 ml/min; Magnesium 1.7 mg/dl (1.7-2.4); Phosphorus 4.4 mg/dl (2.5-4.9); Potassium 4.4 mmol/L (3.5-5.1)
--- NOTE | 2023-03-06 08:25 | Hospitalist Progress Note ---
Date of Service March 06, 2023 Assessment & Plan (1) Respiratory failure: Plan: Acute on chronic hypoxemic respiratory failure secondary to decompensated heart failure, hx diastolic dysfunction BNP 800s Respiratory panel negative Echocardiogram: EF 50 to 55%, mild concentric LVH, severe mitral regurgitation Improving On high flow O2 previously, then had L thoracentesis on 03/01/23 which improved oxygen requirement 03/05-03/06 on 4-5L - about baseline oxygen requirement Lasix decreased to 60 IV bid, switched to torsemide Budesonide, Perforomist Director Validation and pulmonary service consulted s/p L thoracentesis on 03/01/23 Cont suppl. O2, wean off accordingly, 4L at baseline WBC elevated on (03/03/23) Pt reports productive cough repeat CXR w/ pulm. vasc. congestion, pl. effusion and consolidation Pt possibly developing pna. No fevers, procal negat. Started empiric augmentin and doxy as trying to avoid any ivf sputum cultx ordered Palliative care service consulted Troponin elevation secondary to above Possible NSTEMI given patient chest pain complaints expressed to ER provider. --Denies active chest pain on exam --was on IV heparin initially Continue aspirin, clopidogrel, and metoprolol succinate. Restarted atorvastatin (outpatient 80 mg daily). 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 lovenox subq DNR/DNI Disposition pending, palliative med. consulted, CM involved Admission and Anticipated Discharge Date Admission Date: February 25, 2023 Subjective Follow-up for CHF, acute hypoxic respiratory failure, etc. Underwent L thoracentesis Currently laying in bed in NAD, on suppl. O2, 4-5L which is about her baseline Denies any chest pain, fevers chills, abdominal pain. She was coughing and reported + yellow sputum. Today cough seems to be dry and weak. Assisted her with flutter valve. Pulmonary medicine, cardiology and palliative care consulted. CM involved in DC needs. Started on torsemide yesterday. Review of Systems Review of Systems: All systems reviewed & are unremarkable except as noted in Subjective Physical Exam Physical Exam: General- WD/WN F in NAD, + chronically ill appearing, on suppl. O2 4-5L Eyes- anicteric Neck- supple Lungs- +rhonchi at L base, no wheezes Heart- normal rate, regular rhythm; no murmurs Abdomen- normal bowel sounds, nondistended, soft, nontender Extremities- no pretibial edema, + L BKA, moves extremities Neuro- awake, alert, speech fluent, able to answer simple questions appropriately, moves extremities Skin- warm & dry Results & Data Results & Data Vital Signs (Past 12 Hours) Vital Signs Temp Pulse Pulse Resp BP Pulse Ox O2 Del Method 03/06/23 08:04 36.9 C 70 20 110/71 98 Nasal Cannula 03/06/23 07:10 70 18 98 Nasal Cannula 03/06/23 03:12 36.7 C 67 18 109/69 97 Nasal Cannula 03/05/23 22:55 36.6 C 80 16 107/64 97 Nasal Cannula 03/05/23 21:45 83 03/05/23 20:30 Nasal Cannula O2 Flow Rate 03/06/23 08:04 5.0 03/06/23 07:10 4 03/06/23 03:12 6 03/05/23 22:55 3 03/05/23 21:45 03/05/23 20:30 3 Laboratory Results 03/06/23 03/06/23 03/05/23 Range/Units 07:53 07:23 20:11 WBC 12.59 H (4.8-10.8) K/ul RBC 3.24 L (4.20-5.40) M/uL Hgb 9.7 L (12.0-16.0) g/dl Hct 31.6 L (37.0-47.0) % MCV 97.5 (80.0-100.0) fL MCH 29.9 (25.0-34.0) pg MCHC 30.7 L (32.0-36.0) g/dL RDW Std Deviation 55.1 H (36.4-46.3) fL RDW Coeff of Fabio 15.5 H (11.5-14.5) % Plt Count 233 (130-400) K/uL MPV 11.7 (9.4-12.4) fL Sodium 136 (136-145) mmol/L Potassium 4.4 (3.5-5.1) mmol/L Chloride 103 (98-107) mmol/L Carbon Dioxide 26 (21-32) mmol/L Anion Gap 7 (3-11) BUN 27 H (6-23) mg/dl Creatinine 1.15 (0.6-1.2) mg/dl Est Cr Clr Drug Dosing 45.0 ml/min Est GFR ( Amer) 58.2 ml/min Est GFR (Non-Af Amer) 50.2 ml/min BUN/Creatinine Ratio 23.5 H (10-20) Glucose 121 H (70-99(Fasting)) mg/dl POC Glucose 145 H 228 H (70-99) mg/dl Calcium 9.4 (8.6-10.3) mg/dl Phosphorus 4.4 (2.5-4.9) mg/dl Magnesium 1.7 (1.7-2.4) mg/dl 03/05/23 03/05/23 03/05/23 Range/Units 16:25 12:10 11:31 WBC (4.8-10.8) K/ul RBC (4.20-5.40) M/uL Hgb (12.0-16.0) g/dl Hct (37.0-47.0) % MCV (80.0-100.0) fL MCH (25.0-34.0) pg MCHC (32.0-36.0) g/dL RDW Std Deviation (36.4-46.3) fL RDW Coeff of Fabio (11.5-14.5) % Plt Count (130-400) K/uL MPV (9.4-12.4) fL Sodium (136-145) mmol/L Potassium (3.5-5.1) mmol/L Chloride (98-107) mmol/L Carbon Dioxide (21-32) mmol/L Anion Gap (3-11) BUN (6-23) mg/dl Creatinine (0.6-1.2) mg/dl Est Cr Clr Drug Dosing ml/min Est GFR ( Amer) ml/min Est GFR (Non-Af Amer) ml/min BUN/Creatinine Ratio (10-20) Glucose (70-99(Fasting)) mg/dl POC Glucose 174 H 238 H 253 H (70-99) mg/dl Calcium (8.6-10.3) mg/dl Phosphorus (2.5-4.9) mg/dl Magnesium (1.7-2.4) mg/dl Medications Administered Current Inpatient Medications Acetaminophen (Acetaminophen 325 Mg Tab) 650 mg PO QID PRN PRN Reason: pain/fever Stop: 03/28/23 02:17 Last Admin: 03/04/23 22:02 Dose: 650 mg Amoxicillin/Clavulanate Potassium (Amoxicillin/Clavulanate 875 Mg Tab) 1 tab PO BIDM [facility]; Protocol Stop: 03/10/23 16:59 Last Admin: 03/05/23 17:16 Dose: 1 tab Aspirin (Aspirin 81 Mg Chew) 81 mg PO DAILY [facility] Stop: 03/29/23 16:14 Last Admin: 03/05/23 09:52 Dose: 81 mg Atorvastatin Calcium (Atorvastatin 40 Mg Tab) 80 mg PO HS [facility] Stop: 03/30/23 20:59 Last Admin: 03/05/23 20:44 Dose: 80 mg Budesonide (Budesonide 0.5 Mg/2 Ml Vial (Pulmicort)) 0.5 mg NEB BIDR [facility] Stop: 03/28/23 18:59 Last Admin: 03/06/23 07:08 Dose: 0.5 mg Clopidogrel Bisulfate (Clopidogrel Bisulfate 75 Mg Tab) 75 mg PO DAILY [facility] Stop: 03/28/23 08:59 Last Admin: 03/05/23 09:52 Dose: 75 mg Dextrose (Dextrose 50% 50 Ml Syringe) 25 - 50 ml IV UD PRN; Protocol PRN Reason: Hypoglycemia Protocol Stop: 03/27/23 23:33 Doxycycline Hyclate (Doxycycline Hyclate 100 Mg Cap) 100 mg PO BID [facility] Stop: 03/10/23 11:29 Last Admin: 03/05/23 20:44 Dose: 100 mg Duloxetine HCl (Duloxetine Hcl 30 Mg Cap) 30 mg PO DAILY [facility] Stop: 03/28/23 08:59 Last Admin: 03/05/23 09:56 Dose: 30 mg Duloxetine HCl (Duloxetine Hcl 60 Mg Cap) 60 mg PO DAILY [facility] Stop: 03/28/23 08:59 Last Admin: 03/05/23 09:56 Dose: 60 mg Enoxaparin Sodium (Enoxaparin Inj 30 Mg/0.3 Ml Syr) 30 mg SQ Q24H [facility] Stop: 04/01/23 17:59 Last Admin: 03/05/23 18:15 Dose: 30 mg Formoterol Fumarate (Formoterol 20 Mcg/2 Ml Vial) 20 mcg NEB BIDR [facility] Stop: 03/28/23 10:44 Last Admin: 03/06/23 07:08 Dose: 20 mcg Gabapentin (Gabapentin 300 Mg Cap) 300 mg PO TID [facility] Stop: 04/02/23 20:59 Last Admin: 03/05/23 20:44 Dose: 300 mg Glucagon (Glucagon For Inj 1 Mg Vial) 1 mg SQ UD PRN; Protocol PRN Reason: Hypoglycemia Protocol Stop: 03/27/23 23:33 Glucose (Glucose 10 Tab/Tube) 4 - 8 tab PO UD PRN; Protocol PRN Reason: Hypoglycemia Treatment Stop: 03/27/23 23:33 Glucose (Glucose 40% Gel 15 Gm Tube) 15 - 30 gm PO UD PRN; Protocol PRN Reason: Hypoglycemia Protocol Stop: 03/27/23 23:33 Guaifenesin (Guaifenesin 600 Mg Tabcr) 600 mg PO Q12 [facility] Stop: 04/01/23 14:59 Last Admin: 03/05/23 20:44 Dose: 600 mg Promethazine HCl 6.25 mg/ (Sodium Chloride) 50.25 mls @ 201 mls/hr IV Q6H PRN PRN Reason: Nausea And Vomiting Stop: 03/28/23 02:17 Insulin Aspart (Insulin Aspart Per Unit Charge) 0 units SC ACHS [facility]; Protocol Stop: 03/27/23 23:44 Last Admin: 03/05/23 20:57 Dose: 12 units Insulin Glargine (Lantus Per Unit Charge) [facility] Stop: 04/04/23 08:59 Last Admin: 03/05/23 10:08 Dose: 25 units Isosorbide Mononitrate (Isosorbide [place] Extended Rel 30 Mg Tabcr) 30 mg PO DAILY [facility] Stop: 03/28/23 08:59 Last Admin: 02/26/23 08:01 Dose: 30 mg Lisinopril (Lisinopril 5 Mg Tab) 5 mg PO QAM [facility] Stop: 03/28/23 08:59 Last Admin: 02/27/23 09:15 Dose: 5 mg Melatonin (Melatonin 3 Mg Tab) 4.5 mg PO HS PRN PRN Reason: Sleep Stop: 03/28/23 05:51 Last Admin: 03/05/23 20:58 Dose: 4.5 mg Metoprolol Succinate (Metoprolol Succ 50mg Ext Rel Tab) 50 mg PO BID [facility] Stop: 03/28/23 08:59 Last Admin: 03/05/23 20:43 Dose: 50 mg Miscellaneous (Carbohydrates For Hypoglycemia ) 15 - 30 gm PO UD PRN PRN Reason: Hypoglycemia Protocol Stop: 03/27/23 23:33 Miscellaneous (Remove Nicoderm Patch) 1 each N/A DAILY@0859 [facility] Stop: 03/28/23 08:58 Last Admin: 03/05/23 09:51 Dose: 1 each Miscellaneous Information (Pharmacy Glycemic Mgmt Consult) 1 each N/A UD PRN; Protocol PRN Reason: Consult Stop: 03/28/23 08:16 Nicotine (Nicotine 14 Mg/24 Hr Patch) 14 mg TD QAM [facility] Stop: 03/28/23 08:59 Last Admin: 03/05/23 10:10 Dose: 14 mg Olanzapine (Olanzapine 5 Mg Tablet) 5 mg PO HS [facility] Stop: 03/28/23 20:59 Last Admin: 03/05/23 20:43 Dose: 5 mg Olanzapine (Olanzapine 10 Mg/2.1 Ml Sdv) 2.5 mg IM Q4H PRN PRN Reason: Agitation Stop: 03/28/23 02:29 Last Admin: 02/26/23 17:12 Dose: 2.5 mg Pantoprazole Sodium (Pantoprazole 40 Mg Tab) 40 mg PO DAILY [facility] Stop: 03/28/23 08:59 Last Admin: 03/05/23 09:51 Dose: 40 mg Polyethylene Glycol (Polyethylene (Miralax) 17 Gm Pack) 17 gm PO DAILY [facility] Stop: 04/02/23 12:44 Last Admin: 03/05/23 09:58 Dose: 17 gm Potassium Chloride (Potassium Chloride Crtab 20 Meq Tabcr) 40 meq PO QAM [facility] Stop: 03/30/23 08:59 Last Admin: 03/05/23 09:55 Dose: 40 meq Ropinirole HCl (Ropinirole Hcl 1 Mg Tablet) 1 mg PO QPM [facility] Stop: 03/28/23 20:59 Last Admin: 03/05/23 20:43 Dose: 1 mg Sennosides (Senna 8.6 Mg Tab) 8.6 mg PO QAM [facility] Stop: 04/02/23 12:44 Last Admin: 03/05/23 09:53 Dose: Not Given Topiramate (Topiramate 50 Mg Tab) 50 mg PO BID [facility] Stop: 03/28/23 08:59 Last Admin: 03/05/23 20:45 Dose: 50 mg Torsemide (Torsemide 10 Mg Tab) 40 mg PO QAM [facility] Stop: 04/04/23 08:59 Last Admin: 03/05/23 09:57 Dose: 40 mg
[2023-03-06] MEDS: INSULIN ASPART PER UNIT CHARGE SC SCH ×5 (08:43→23:25)
[2023-03-06] MEDS: LANTUS PER UNIT CHARGE SC SCH (08:44)
[2023-03-06] MEDS: AMOXICILLIN/CLAVULANATE 875 MG TAB PO SCH ×2 (08:45→17:49)
[2023-03-06] MEDS: ASPIRIN 81 MG CHEW PO SCH (08:46)
[2023-03-06] MEDS: CLOPIDOGREL BISULFATE 75 MG TAB PO SCH (08:47)
[2023-03-06] MEDS: DOXYCYCLINE HYCLATE 100 MG CAP PO SCH ×2 (08:47→20:30)
[2023-03-06] MEDS: DULoxetine HCL 30 MG CAP PO SCH (08:48)
[2023-03-06] MEDS: DULoxetine HCL 60 MG CAP PO SCH (08:49)
[2023-03-06] MEDS: GABAPENTIN 300 MG CAP PO SCH ×3 (08:49→20:29)
[2023-03-06] MEDS: guaiFENesin 600 MG TABCR PO SCH ×2 (08:50→20:30)
[2023-03-06] MEDS: POTASSIUM CHLORIDE CRTAB 20 MEQ TABCR PO SCH (08:50)
[2023-03-06] MEDS: PANTOprazole 40 MG TAB PO SCH (08:51)
[2023-03-06] MEDS: POLYETHYLENE (MIRALAX) 17 GM PACK PO SCH (08:51)
[2023-03-06] MEDS: SENNA 8.6 MG TAB PO SCH (08:52)
[2023-03-06] MEDS: METOPROLOL SUCC 50MG EXT REL TAB PO SCH ×2 (08:52→20:31)
[2023-03-06] MEDS: TOPIRAMATE 50 MG TAB PO SCH ×2 (08:53→20:29)
[2023-03-06] MEDS: NICOTINE 14 MG/24 HR PATCH TD SCH (08:55)
[2023-03-06] MEDS: TORSEMIDE 10 MG TAB PO SCH (08:55)
--- NOTE | 2023-03-06 09:46 | Cardiology Progress Note ---
Date of Service March 06, 2023 Assessment & Plan (1) Acute and chronic respiratory failure with hypoxia: (2) Acute on chronic heart failure with preserved ejection fraction (HFpEF): (3) Mitral regurgitation: (4) Pleural effusion, bilateral: Plan 62-year-old female admitted with acute on chronic respiratory failure due to congestive heart failure with layering bilateral pleural effusion. Left-sided thoracentesis performed 03/01/2023 without complication. Respiratory status improved. torsemide started today Continue aspirin, clopidogrel, Toprol-XL, lisinopril, and atorvastatin. Future considerations include transesophageal echocardiogram for better assessment of the mitral valve structure and function. She would not be a good candidate for traditional mitral valve surgery but depending upon anatomy, perhaps there is a percutaneous solution. Admission and Anticipated Discharge Date Admission Date: February 25, 2023 Subjective Patient seen in cardiology follow up. Sinus rhythm in the 70s observed on telemetry. Still with oxygen requirement, 4/min Oxygen by nasal cannula. Physical Exam Constitutional: + ill appearing; no acute distress Respiratory: no respiratory distress and no labored breathing Auscultation: + diminished lung sounds (Bilateral base and midlung field); no wheezes Cardiovascular: Rate/Rhythm: regular rate and regular rhythm Heart Sounds: normal S1, normal S2 and + murmur (1/6 SM) Vessels: radial pulses present; no JVD Extremities: + edema (Trace bilateral edema) Gastrointestinal (Abdomen): Inspection/Auscultation: abdomen normal to inspection and normal bowel sounds; abdomen not distended Percussion/Palpation: abdomen soft; abdomen nontender, no guarding and abdomen not rigid Neurologic: CN's II-XI intact bilaterally and moves all extremities; no focal motor deficits Results & Data Vital Signs (Past 12 Hours) Vital Signs Temp Pulse Pulse Resp BP Pulse Ox O2 Del Method 03/06/23 09:01 Nasal Cannula 03/06/23 08:04 36.9 C 70 20 110/71 98 Nasal Cannula 03/06/23 07:10 70 18 98 Nasal Cannula 03/06/23 03:12 36.7 C 67 18 109/69 97 Nasal Cannula 03/05/23 22:55 36.6 C 80 16 107/64 97 Nasal Cannula 03/05/23 21:45 83 O2 Flow Rate 03/06/23 09:01 4 03/06/23 08:04 5.0 03/06/23 07:10 4 01/22/24 03:12 6 03/05/23 22:55 3 03/05/23 21:45 Laboratory Results CBC 03/06/23 Range/Units 07:23 WBC 12.59 H (4.8-10.8) K/ul RBC 3.24 L (4.20-5.40) M/uL Hgb 9.7 L (12.0-16.0) g/dl Hct 31.6 L (37.0-47.0) % Plt Count 233 (130-400) K/uL Comprehensive Metabolic Panel 03/06/23 Range/Units 07:23 Sodium 136 (136-145) mmol/L Potassium 4.4 (3.5-5.1) mmol/L Chloride 103 (98-107) mmol/L Carbon Dioxide 26 (21-32) mmol/L BUN 27 H (6-23) mg/dl Creatinine 1.15 (0.6-1.2) mg/dl Glucose 121 H (70-99(Fasting)) mg/dl Calcium 9.4 (8.6-10.3) mg/dl Diagnostic Findings Chest x-ray performed 03/05/2023, radiology report reviewed, image reviewed independently with noted small bilateral pleural effusions decreased in size compared to the previous chest x-ray performed 03/03/2023 (3) Mitral regurgitation Cardiac valve disease etiology: nonrheumatic Qualified Code(s): I34.0 - Nonrheumatic mitral (valve) insufficiency
[2023-03-06] MEDS: ACETAMINOPHEN 325 MG TAB PO PRN (15:18)
[2023-03-06] MEDS: ENOXAPARIN INJ 30 MG/0.3 ML SYR SQ SCH (17:51)
[2023-03-06] MEDS: ATORVASTATIN 40 MG TAB PO SCH (20:29)
[2023-03-06] MEDS: OLANZapine 5 MG TABLET PO SCH (20:30)
[2023-03-06] MEDS: rOPINIRole HCL 1 MG TABLET PO SCH (20:30)
[2023-03-07] MEDS: MELATONIN 3 MG TAB PO PRN (00:25)
[2023-03-07] MEDS: FORMOTEROL 20 MCG/2 ML VIAL NEB SCH ×2 (07:09→18:11)
[2023-03-07] MEDS: BUDESONIDE 0.5 MG/2 ML VIAL (PULMICORT) NEB SCH ×2 (07:10→18:11)
[2023-03-07 07:40] LABS: Hematocrit (blood only) 31.2 % (37.0-47.0); Hemoglobin 9.5 g/dl (12.0-16.0); Mean Corpuscular Hemoglobin 29.2 pg (25.0-34.0); Mean Corpuscular Hgb Conc 30.4 g/dL (32.0-36.0); Mean Platelet Volume 11.6 fL (9.4-12.4); Platelet Count 256 K/uL (130-400); RDW Coefficient of Variation 15.2 % (11.5-14.5); RDW Standard Deviation 53.8 fL (36.4-46.3); Red Blood Count 3.25 M/uL (4.20-5.40)
[2023-03-07 07:58] LABS: BUN Creatinine Ratio 25.7 (10-20); Calcium 9.1 mg/dl (8.6-10.3); Creatinine Clr Calc Pharmacy 47.1 ml/min; Est GFR (African American) 62.1 ml/min; Est GFR (Non-African American) 53.6 ml/min; Magnesium 1.6 mg/dl (1.7-2.4); Phosphorus 4.8 mg/dl (2.5-4.9); Potassium 4.4 mmol/L (3.5-5.1)
[2023-03-07] MEDS: INSULIN ASPART PER UNIT CHARGE SC SCH ×4 (08:50→21:00)
[2023-03-07] MEDS: LANTUS PER UNIT CHARGE SC SCH (08:50)
[2023-03-07] MEDS: TORSEMIDE 10 MG TAB PO SCH (08:51)
[2023-03-07] MEDS: AMOXICILLIN/CLAVULANATE 875 MG TAB PO SCH ×2 (08:51→17:28)
[2023-03-07] MEDS: DULoxetine HCL 30 MG CAP PO SCH (08:51)
[2023-03-07] MEDS: ASPIRIN 81 MG CHEW PO SCH (08:52)
[2023-03-07] MEDS: guaiFENesin 600 MG TABCR PO SCH ×2 (08:52→20:59)
[2023-03-07] MEDS: POTASSIUM CHLORIDE CRTAB 20 MEQ TABCR PO SCH (08:52)
[2023-03-07] MEDS: DOXYCYCLINE HYCLATE 100 MG CAP PO SCH ×2 (08:52→20:59)
[2023-03-07] MEDS: PANTOprazole 40 MG TAB PO SCH (08:52)
[2023-03-07] MEDS: SENNA 8.6 MG TAB PO SCH (08:52)
[2023-03-07] MEDS: CLOPIDOGREL BISULFATE 75 MG TAB PO SCH (08:52)
[2023-03-07] MEDS: METOPROLOL SUCC 50MG EXT REL TAB PO SCH ×2 (08:53→20:58)
[2023-03-07] MEDS: GABAPENTIN 300 MG CAP PO SCH ×3 (08:53→20:59)
[2023-03-07] MEDS: POLYETHYLENE (MIRALAX) 17 GM PACK PO SCH (08:53)
[2023-03-07] MEDS: TOPIRAMATE 50 MG TAB PO SCH ×2 (08:53→21:00)
[2023-03-07] MEDS: DULoxetine HCL 60 MG CAP PO SCH (08:53)
[2023-03-07] MEDS: NICOTINE 14 MG/24 HR PATCH TD SCH (08:54)
--- NOTE | 2023-03-07 11:22 | Hospitalist Progress Note ---
Date of Service March 07, 2023 Assessment & Plan (1) Respiratory failure: Plan: Acute on chronic hypoxemic respiratory failure secondary to decompensated heart failure, hx diastolic dysfunction BNP 800s Respiratory panel negative Echocardiogram: EF 50 to 55%, mild concentric LVH, severe mitral regurgitation Improving On high flow O2 previously, then had L thoracentesis on 03/01/23 which improved oxygen requirement 03/05-03/06 on 4-5L - about baseline oxygen requirement Was on IV lasix during her hospitalization, now switched to PO torsemide Budesonide, Perforomist [employer] and pulmonary service consulted s/p L thoracentesis on 03/01/23 Cont suppl. O2, wean off accordingly, 4L at baseline WBC elevated on (03/03/23) Pt reports productive cough repeat CXR w/ pulm. vasc. congestion, pl. effusion and consolidation Pt possibly developing pna. No fevers, procal negat. Started empiric augmentin and doxy as trying to avoid any ivf sputum cultx ordered but not cllected Palliative care service consulted Troponin elevation secondary to above Possible NSTEMI given patient chest pain complaints expressed to ER provider. --Denies active chest pain on exam --was on IV heparin initially Continue aspirin, clopidogrel, and metoprolol succinate. Restarted atorvastatin (outpatient 80 mg daily). 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 lovenox subq DNR/DNI Disposition CM involved, plan to DC tmrw Admission and Anticipated Discharge Date Admission Date: February 25, 2023 Subjective Follow-up for CHF, acute hypoxic respiratory failure, etc. Underwent L thoracentesis oxygen requirement back to baseline Denies any chest pain, fevers chills, abdominal pain. She was coughing and reported + yellow sputum. Now cough is dry and weak. uses flutter valve. Pulmonary medicine, cardiology and palliative care consulted. CM involved in DC needs. Plan to DC tmrw (Monday). Cont. torsemide. Review of Systems Review of Systems: All systems reviewed & are unremarkable except as noted in Subjective Physical Exam Physical Exam: General- WD/WN F in NAD, + chronically ill appearing, on suppl. O2 Eyes- anicteric Neck- supple Lungs- diminished at bases, no rhonchi, no wheezes Heart- normal rate, regular rhythm; no murmurs Abdomen- normal bowel sounds, nondistended, soft, nontender Extremities- no pretibial edema, + L BKA, moves extremities Neuro- sleepy but awakens easily, speech fluent, able to answer simple questions appropriately, moves extremities Skin- warm & dry Results & Data Results & Data Vital Signs (Past 12 Hours) Vital Signs Temp Pulse Resp BP Pulse Ox O2 Del Method O2 Flow Rate 03/07/23 10:52 36.6 C 78 16 105/63 100 Nasal Cannula 2 03/07/23 08:00 Nasal Cannula 2 03/07/23 07:24 36.5 C 71 17 125/59 L 100 Nasal Cannula 2 03/07/23 07:12 71 16 100 Nasal Cannula 2 03/07/23 02:41 37 C 70 18 112/64 99 Nasal Cannula 4.5 Laboratory Results 03/07/23 03/07/23 03/07/23 Range/Units 11:05 08:12 07:17 WBC 11.40 H (4.8-10.8) K/ul RBC 3.25 L (4.20-5.40) M/uL Hgb 9.5 L (12.0-16.0) g/dl Hct 31.2 L (37.0-47.0) % MCV 96.0 (80.0-100.0) fL MCH 29.2 (25.0-34.0) pg MCHC 30.4 L (32.0-36.0) g/dL RDW Std Deviation 53.8 H (36.4-46.3) fL RDW Coeff of Fabio 15.2 H (11.5-14.5) % Plt Count 256 (130-400) K/uL MPV 11.6 (9.4-12.4) fL Sodium 135 L (136-145) mmol/L Potassium 4.4 (3.5-5.1) mmol/L Chloride 102 (98-107) mmol/L Carbon Dioxide 26 (21-32) mmol/L Anion Gap 7 (3-11) BUN 28 H (6-23) mg/dl Creatinine 1.09 (0.6-1.2) mg/dl Est Cr Clr Drug Dosing 47.1 ml/min Est GFR ( Amer) 62.1 ml/min Est GFR (Non-Af Amer) 53.6 ml/min BUN/Creatinine Ratio 25.7 H (10-20) Glucose 132 H (70-99(Fasting)) mg/dl POC Glucose 266 H 175 H (70-99) mg/dl Calcium 9.1 (8.6-10.3) mg/dl Phosphorus 4.8 (2.5-4.9) mg/dl Magnesium 1.6 L (1.7-2.4) mg/dl 03/06/23 03/06/23 03/06/23 Range/Units 23:08 20:44 20:09 WBC (4.8-10.8) K/ul RBC (4.20-5.40) M/uL Hgb (12.0-16.0) g/dl Hct (37.0-47.0) % MCV (80.0-100.0) fL MCH (25.0-34.0) pg MCHC (32.0-36.0) g/dL RDW Std Deviation (36.4-46.3) fL RDW Coeff of Fabio (11.5-14.5) % Plt Count (130-400) K/uL MPV (9.4-12.4) fL Sodium (136-145) mmol/L Potassium (3.5-5.1) mmol/L Chloride (98-107) mmol/L Carbon Dioxide (21-32) mmol/L Anion Gap (3-11) BUN (6-23) mg/dl Creatinine (0.6-1.2) mg/dl Est Cr Clr Drug Dosing ml/min Est GFR ( Amer) ml/min Est GFR (Non-Af Amer) ml/min BUN/Creatinine Ratio (10-20) Glucose (70-99(Fasting)) mg/dl POC Glucose 118 H 87 59 L* (70-99) mg/dl Calcium (8.6-10.3) mg/dl Phosphorus (2.5-4.9) mg/dl Magnesium (1.7-2.4) mg/dl 03/06/23 03/06/23 Range/Units 17:05 11:58 WBC (4.8-10.8) K/ul RBC (4.20-5.40) M/uL Hgb (12.0-16.0) g/dl Hct (37.0-47.0) % MCV (80.0-100.0) fL MCH (25.0-34.0) pg MCHC (32.0-36.0) g/dL RDW Std Deviation (36.4-46.3) fL RDW Coeff of Fabio (11.5-14.5) % Plt Count (130-400) K/uL MPV (9.4-12.4) fL Sodium (136-145) mmol/L Potassium (3.5-5.1) mmol/L Chloride (98-107) mmol/L Carbon Dioxide (21-32) mmol/L Anion Gap (3-11) BUN (6-23) mg/dl Creatinine (0.6-1.2) mg/dl Est Cr Clr Drug Dosing ml/min Est GFR ( Amer) ml/min Est GFR (Non-Af Amer) ml/min BUN/Creatinine Ratio (10-20) Glucose (70-99(Fasting)) mg/dl POC Glucose 160 H 253 H (70-99) mg/dl Calcium (8.6-10.3) mg/dl Phosphorus (2.5-4.9) mg/dl Magnesium (1.7-2.4) mg/dl Medications Administered Current Inpatient Medications Acetaminophen (Acetaminophen 325 Mg Tab) 650 mg PO QID PRN PRN Reason: pain/fever Stop: 03/28/23 02:17 Last Admin: 03/06/23 15:18 Dose: 650 mg Amoxicillin/Clavulanate Potassium (Amoxicillin/Clavulanate 875 Mg Tab) 1 tab PO BIDM SAMANTHA; Protocol Stop: 03/10/23 16:59 Last Admin: 03/07/23 08:51 Dose: 1 tab Aspirin (Aspirin 81 Mg Chew) 81 mg PO DAILY SAMANTHA Stop: 03/29/23 16:14 Last Admin: 03/07/23 08:52 Dose: 81 mg Atorvastatin Calcium (Atorvastatin 40 Mg Tab) 80 mg PO HS SAMANTHA Stop: 03/30/23 20:59 Last Admin: 03/06/23 20:29 Dose: 80 mg Budesonide (Budesonide 0.5 Mg/2 Ml Vial (Pulmicort)) 0.5 mg NEB BIDR [facility] Stop: 03/28/23 18:59 Last Admin: 03/07/23 07:10 Dose: 0.5 mg Clopidogrel Bisulfate (Clopidogrel Bisulfate 75 Mg Tab) 75 mg PO DAILY SAMANTHA Stop: 03/28/23 08:59 Last Admin: 03/07/23 08:52 Dose: 75 mg Dextrose (Dextrose 50% 50 Ml Syringe) 25 - 50 ml IV UD PRN; Protocol PRN Reason: Hypoglycemia Protocol Stop: 03/27/23 23:33 Doxycycline Hyclate (Doxycycline Hyclate 100 Mg Cap) 100 mg PO BID [facility] Stop: 03/10/23 11:29 Last Admin: 03/07/23 08:52 Dose: 100 mg Duloxetine HCl (Duloxetine Hcl 30 Mg Cap) 30 mg PO DAILY [facility] Stop: 03/28/23 08:59 Last Admin: 03/07/23 08:51 Dose: 30 mg Duloxetine HCl (Duloxetine Hcl 60 Mg Cap) 60 mg PO DAILY [facility] Stop: 03/28/23 08:59 Last Admin: 03/07/23 08:53 Dose: 60 mg Enoxaparin Sodium (Enoxaparin Inj 30 Mg/0.3 Ml Syr) 30 mg SQ Q24H [facility] Stop: 04/01/23 17:59 Last Admin: 03/06/23 17:51 Dose: 30 mg Formoterol Fumarate (Formoterol 20 Mcg/2 Ml Vial) 20 mcg NEB BIDR [facility] Stop: 03/28/23 10:44 Last Admin: 03/07/23 07:09 Dose: 20 mcg Gabapentin (Gabapentin 300 Mg Cap) 300 mg PO TID SAMANTHA Stop: 04/02/23 20:59 Last Admin: 03/07/23 08:53 Dose: 300 mg Glucagon (Glucagon For Inj 1 Mg Vial) 1 mg SQ UD PRN; Protocol PRN Reason: Hypoglycemia Protocol Stop: 03/27/23 23:33 Glucose (Glucose 10 Tab/Tube) 4 - 8 tab PO UD PRN; Protocol PRN Reason: Hypoglycemia Treatment Stop: 03/27/23 23:33 Glucose (Glucose 40% Gel 15 Gm Tube) 15 - 30 gm PO UD PRN; Protocol PRN Reason: Hypoglycemia Protocol Stop: 03/27/23 23:33 Guaifenesin (Guaifenesin 600 Mg Tabcr) 600 mg PO Q12 [facility] Stop: 04/01/23 14:59 Last Admin: 03/07/23 08:52 Dose: 600 mg Promethazine HCl 6.25 mg/ (Sodium Chloride) 50.25 mls @ 201 mls/hr IV Q6H PRN PRN Reason: Nausea And Vomiting Stop: 03/28/23 02:17 Last Infusion: 03/06/23 15:39 Dose: Infused Insulin Aspart (Insulin Aspart Per Unit Charge) 0 units [facility]; Protocol Stop: 03/27/23 23:44 Last Admin: 03/07/23 08:50 Dose: 11 units Insulin Glargine (Lantus Per Unit Charge) 25 units SC [facility] Stop: 04/04/23 08:59 Last Admin: 03/07/23 08:50 Dose: 25 units Isosorbide Mononitrate (Isosorbide [place] Extended Rel 30 Mg Tabcr) 30 mg PO DAILY [facility] Stop: 03/28/23 08:59 Last Admin: 02/26/23 08:01 Dose: 30 mg Lisinopril (Lisinopril 5 Mg Tab) 5 mg PO QAM [facility] Stop: 03/28/23 08:59 Last Admin: 02/27/23 09:15 Dose: 5 mg Melatonin (Melatonin 3 Mg Tab) 4.5 mg PO HS PRN PRN Reason: Sleep Stop: 03/28/23 05:51 Last Admin: 03/07/23 00:25 Dose: 4.5 mg Metoprolol Succinate (Metoprolol Succ 50mg Ext Rel Tab) 50 mg PO BID [facility] Stop: 03/28/23 08:59 Last Admin: 03/07/23 08:53 Dose: 50 mg Miscellaneous (Carbohydrates For Hypoglycemia ) 15 - 30 gm PO UD PRN PRN Reason: Hypoglycemia Protocol Stop: 03/27/23 23:33 Last Admin: 03/06/23 20:27 Dose: 15 gm Miscellaneous (Remove Nicoderm Patch) 1 each N/A DAILY@0859 [facility] Stop: 03/28/23 08:58 Last Admin: 03/07/23 08:54 Dose: 1 each Miscellaneous Information (Pharmacy Glycemic Mgmt Consult) 1 each N/A UD PRN; Protocol PRN Reason: Consult Stop: 03/28/23 08:16 Nicotine (Nicotine 14 Mg/24 Hr Patch) 14 mg TD QAM SAMANTHA Stop: 03/28/23 08:59 Last Admin: 03/07/23 08:54 Dose: 14 mg Olanzapine (Olanzapine 5 Mg Tablet) 5 mg PO HS SAMANTHA Stop: 03/28/23 20:59 Last Admin: 03/06/23 20:30 Dose: 5 mg Olanzapine (Olanzapine 10 Mg/2.1 Ml Sdv) 2.5 mg IM Q4H PRN PRN Reason: Agitation Stop: 03/28/23 02:29 Last Admin: 02/26/23 17:12 Dose: 2.5 mg Pantoprazole Sodium (Pantoprazole 40 Mg Tab) 40 mg PO DAILY SAMANTHA Stop: 03/28/23 08:59 Last Admin: 03/07/23 08:52 Dose: 40 mg Polyethylene Glycol (Polyethylene (Miralax) 17 Gm Pack) 17 gm PO DAILY SAMANTHA Stop: 04/02/23 12:44 Last Admin: 03/07/23 08:53 Dose: Not Given Potassium Chloride (Potassium Chloride Crtab 20 Meq Tabcr) 40 meq PO QAM SAMANTHA Stop: 03/30/23 08:59 Last Admin: 03/07/23 08:52 Dose: 40 meq Ropinirole HCl (Ropinirole Hcl 1 Mg Tablet) 1 mg PO QPM SAMANTHA Stop: 03/28/23 20:59 Last Admin: 03/06/23 20:30 Dose: 1 mg Sennosides (Senna 8.6 Mg Tab) 8.6 mg PO QAM SAMANTHA Stop: 04/02/23 12:44 Last Admin: 03/07/23 08:52 Dose: 8.6 mg Topiramate (Topiramate 50 Mg Tab) 50 mg PO BID SAMANTHA Stop: 03/28/23 08:59 Last Admin: 03/07/23 08:53 Dose: 50 mg Torsemide (Torsemide 10 Mg Tab) 40 mg PO QAM SAMANTHA Stop: 04/04/23 08:59 Last Admin: 03/07/23 08:51 Dose: 40 mg
--- NOTE | 2023-03-07 14:26 | Cardiology Progress Note ---
Date of Service March 07, 2023 Assessment & Plan (1) Acute and chronic respiratory failure with hypoxia: (2) Acute on chronic heart failure with preserved ejection fraction (HFpEF): (3) Mitral regurgitation: (4) Pleural effusion, bilateral: Plan 62-year-old female admitted with acute on chronic respiratory failure due to congestive heart failure with layering bilateral pleural effusion. Left-sided thoracentesis performed 03/01/2023 without complication. Respiratory status improved. torsemide started 03/06/23. Continue aspirin, clopidogrel, Toprol-XL, lisinopril, and atorvastatin. Discussed proceeding JUAN DAVID with patient. She is agreeable. Proceed with CXR. NPO after midnight. Per patient request of called and spoke to pt's daughter, Perla. She is agreeable to JUAN DAVID. I feel that pt is optimized and this may be our best window of opportunity to proceed. Admission and Anticipated Discharge Date Admission Date: February 25, 2023 Subjective Patient seen in cardiology follow-up. Resting comfortably, lying supine. She is on 2 L nasal cannula and at home her recent dose of supplementary oxygen has been 4 L/min nasal cannula. Telemetry reveals sinus rhythm in the 70s. Physical Exam Constitutional: + ill appearing (chronically ill in appe arance without acute distress ) Respiratory: no respiratory distress and no labored breathing Auscultation: + diminished lung sounds (mildly decreased BS at the bases ) and + rales (Bilateral mid lung field); no wheezes Cardiovascular: Rate/Rhythm: regular rate and regular rhythm Heart Sounds: normal S1, normal S2 and + murmur (1/6 SM) Vessels: radial pulses present; no JVD Extremities: + edema (Trace bilateral edema) Gastrointestinal (Abdomen): Inspection/Auscultation: abdomen normal to inspection and normal bowel sounds; abdomen not distended Percussion/Palpation: abdomen soft; abdomen nontender, no guarding and abdomen not rigid Neurologic: CN's II-XI intact bilaterally and moves all extremities; no focal motor deficits Results & Data Vital Signs (Past 12 Hours) Vital Signs Temp Pulse Pulse Resp BP Pulse Ox O2 Del Method 03/07/23 10:52 36.6 C 78 16 105/63 100 Nasal Cannula 03/07/23 08:00 67 03/07/23 08:00 Nasal Cannula 03/07/23 07:24 36.5 C 71 17 125/59 L 100 Nasal Cannula 03/07/23 07:12 71 16 100 Nasal Cannula 03/07/23 02:41 37 C 70 18 112/64 99 Nasal Cannula O2 Flow Rate 03/07/23 10:52 2 03/07/23 08:00 03/07/23 08:00 2 03/07/23 07:24 2 03/07/23 07:12 2 03/07/23 02:41 4.5 Laboratory Results CBC 03/07/23 Range/Units 07:17 WBC 11.40 H (4.8-10.8) K/ul RBC 3.25 L (4.20-5.40) M/uL Hgb 9.5 L (12.0-16.0) g/dl Hct 31.2 L (37.0-47.0) % Plt Count 256 (130-400) K/uL Comprehensive Metabolic Panel 03/07/23 Range/Units 07:17 Sodium 135 L (136-145) mmol/L Potassium 4.4 (3.5-5.1) mmol/L Chloride 102 (98-107) mmol/L Carbon Dioxide 26 (21-32) mmol/L BUN 28 H (6-23) mg/dl Creatinine 1.09 (0.6-1.2) mg/dl Glucose 132 H (70-99(Fasting)) mg/dl Calcium 9.1 (8.6-10.3) mg/dl (3) Mitral regurgitation Cardiac valve disease etiology: nonrheumatic Qualified Code(s): I34.0 - Non rheumatic mitral (valve) insufficiency
--- NOTE | 2023-03-07 14:48 | XRay Report ---
XR chest 1V portable CLINICAL HISTORY: follow up CHF TECHNIQUE: Single frontal radiograph of the chest was obtained. Comparison: None available at the time of this dictation. FINDINGS: Median sternotomy wires are unchanged. Cardiomegaly is noted. The lungs are clear. No evidence of ple ural effusion or pneumothorax. IMPRESSION: Cardiomegaly without pulmonary edema. ACT 112: Negative or not required by law. Electronically signed by: Johny Ferrer M.D. 03/07/2023 2:47 PM
--- NOTE | 2023-03-07 15:20 | Communication Note ---
Date of Service: March 07, 2023 Chest x-ray reveals stable findings, enlargement of cardiac silhouette, without pleural effusions or pulmonary edema. Kiley Fuller DO
[2023-03-07] MEDS: ENOXAPARIN INJ 30 MG/0.3 ML SYR SQ SCH (17:28)
[2023-03-07] MEDS: ACETAMINOPHEN 325 MG TAB PO PRN (20:56)
[2023-03-07] MEDS: rOPINIRole HCL 1 MG TABLET PO SCH (20:57)
[2023-03-07] MEDS: OLANZapine 5 MG TABLET PO SCH (20:58)
[2023-03-07] MEDS: ATORVASTATIN 40 MG TAB PO SCH (20:58)
[2023-03-08] MEDS ORDERED: Nursing to Pharmacy Communication SCH ×2 (01:45→10:30)
[2023-03-08] MEDS: INSULIN ASPART PER UNIT CHARGE SC SCH ×5 (06:00→20:44)
[2023-03-08 07:04] LABS: Hematocrit (blood only) 29.8 % (37.0-47.0); Hemoglobin 9.2 g/dl (12.0-16.0); Mean Corpuscular Hemoglobin 29.9 pg (25.0-34.0); Mean Corpuscular Hgb Conc 30.9 g/dL (32.0-36.0); Mean Corpuscular Volume 96.8 fL (80.0-100.0); Mean Platelet Volume 11.3 fL (9.4-12.4); Platelet Count 246 K/uL (130-400); RDW Coefficient of Variation 15.2 % (11.5-14.5); RDW Standard Deviation 54.2 fL (36.4-46.3); Red Blood Count 3.08 M/uL (4.20-5.40)
--- NOTE | 2023-03-08 07:17 | History & Physical Bridge Note ---
Date of Service March 08, 2023 History & Physical Bridge Note I have examined the patient, reviewed the History & Physical and in the interval since the performance of the History & Physical I have noted the following changes of clinical significance: no changes noted.
[2023-03-08] MEDS: BUDESONIDE 0.5 MG/2 ML VIAL (PULMICORT) NEB SCH ×2 (07:19→19:50)
[2023-03-08] MEDS: FORMOTEROL 20 MCG/2 ML VIAL NEB SCH ×2 (07:19→19:49)
[2023-03-08] MEDS ORDERED: BENZOCAINE/TETRACAIN/BUTAM 50 APPLN/5 GM CAN EXT ONE (07:40)
--- NOTE | 2023-03-08 07:41 | Anesthesiology Consultation ---
Date of Service March 08, 2023 Assessment & Plan Chart Review Chart Review: Acceptable Risk for Surgery and Patient NOT seen in Pre Admission Testing Consults Requested none ASA ASA4 Proposed Anesthesia Anesthesia Type: MAC Risk / Benefits Reviewed With: PT / POA / Parent / Guardian, Accepts Plan and Informed Consent Obtained History Surgery Operation Date: 03/08/23 07:15 Proposed Procedures p Transesophageal Echo w/Anesthesia - [facility], Height/Weight Height: 5 ft 3 in Weight: 64.4 kg Allergies Allergy/AdvReac Type Severity Reaction Status Date / Time latex Allergy Intermediate HIVES/RASH Verified 02/25/23 22:07 aspirin Allergy Unknown ON GMG MED Verified 02/25/23 22:07 LIST morphine Allergy Unknown Unknown Verified 02/25/23 22:07 oxycodone AdvReac Intermediate HALLUCINATI Verified 02/25/23 22:07 ONS Medications Home Medications Medication Instructions Recorded Confirmed Last Taken clopidogrel 75 mg tablet 75 mg PO DAILY 03/16/21 02/25/23 02/25/23 nitroglycerin 0.4 mg sublingual 0.4 mg sublingual .PRN/UD PRN 05/14/21 02/25/23 Unknown tablet Chest Pain melatonin 5 mg tablet 5 mg PO HS 08/02/22 02/25/23 02/24/23 insulin glargine 100 unit/mL (3 35 unit subcut QA 10/30/22 02/25/23 02/25/23 mL) subcutaneous pen (Basaglar KwikPen U-100 Insulin) olanzapine 5 mg tablet 5 mg PO HS 11/16/22 02/25/23 02/24/23 pantoprazole 40 mg tablet,delayed 40 mg PO DAILY 11/16/22 02/25/23 02/25/23 release gabapentin 400 mg capsule 400 mg PO TID #30 caps 12/07/22 02/25/23 02/25/23 duloxetine 30 mg capsule,delayed 30 mg PO DAILY 12/31/22 02/25/23 02/25/23 release duloxetine 60 mg capsule,delayed 60 mg PO DAILY 12/31/22 02/25/23 02/25/23 release furosemide 40 mg tablet 40 mg PO QA 12/31/22 02/25/23 02/25/23 isosorbide mononitrate 30 mg 30 mg PO DAILY 12/31/22 02/25/2324 tablet,extended release 24 hr lisinopril 5 mg tablet 5 mg PO QA 12/31/22 02/25/23 02/25/23 metoprolol succinate 100 mg 100 mg PO QA 12/31/22 02/25/23 02/25/23 tablet,extended release 24 hr metoprolol succinate 50 mg 50 mg PO PM 12/31/22 02/25/23 02/24/23 tablet,extended release 24 hr nicotine 14 mg/24 hr daily 1 patch transdermal [facility] 12/31/22 02/25/23 Unknown transdermal patch ropinirole 1 mg tablet 1 mg PO QPM 12/31/22 02/25/23 02/24/23 topiramate 50 mg tablet (Topamax) 50 mg PO BID 12/31/22 02/25/23 02/25/23 08:00 tramadol 50 mg tablet 50 mg PO Q6H PRN Severe Pain 12/31/22 02/25/23 Unknown (Scale Score 7-10) Active Medications Generic Name Dose Route Start Last Admin Trade Name Marcellq PRN Reason Stop Dose Admin Acetaminophen 650 mg 02/26/23 02:18 03/07/23 20:56 Acetaminophen 325 Mg Tab PO 03/28/23 02:17 650 mg QID PRN Administration pain/fever Amoxicillin/Clavulanate Potassium 1 tab 03/03/23 17:00 03/07/23 17:28 Amoxicillin/Clavulanate 875 Mg Tab PO 03/10/23 16:59 1 tab BIDM SAMANTHA Administration Protocol Aspirin 81 mg 02/27/23 16:15 03/07/23 08:52 Aspirin 81 Mg Chew PO 03/29/23 16:14 81 mg DAILY SAMANTHA Administration Atorvastatin Calcium 80 mg 02/28/23 21:00 03/07/23 20:58 Atorvastatin 40 Mg Tab PO 03/30/23 20:59 80 mg HS SAMANTHA Administration Budesonide 0.5 mg 02/26/23 19:00 03/08/23 07:19 Budesonide 0.5 Mg/2 Ml Vial (Pulmicort) NEB 03/28/23 18:59 Not Given BIDR SAMANTHA Clopidogrel Bisulfate 75 mg 02/26/23 09:00 03/07/23 08:52 Clopidogrel Bisulfate 75 Mg Tab PO 03/28/23 08:59 75 mg DAILY SAMANTHA Administration Doxycycline Hyclate 100 mg 03/03/23 11:30 03/07/23 20:59 Doxycycline Hyclate 100 Mg Cap PO 03/10/23 11:29 100 mg BID SAMANTHA Administration Duloxetine HCl 30 mg 02/26/23 09:00 03/07/23 08:51 Duloxetine Hcl 30 Mg Cap PO 03/28/23 08:59 30 mg DAILY SAMANTHA Administration Duloxetine HCl 60 mg 02/26/23 09:00 03/07/23 08:53 Duloxetine Hcl 60 Mg Cap PO 03/28/23 08:59 60 mg DAILY SAMANTHA Administration Enoxaparin Sodium 30 mg 03/02/23 18:00 03/07/23 17:28 Enoxaparin Inj 30 Mg/0.3 Ml Syr SQ 04/01/23 17:59 30 mg Q24H SAMANTHA Administration Formoterol Fumarate 20 mcg 02/26/23 10:45 03/08/23 07:19 Formoterol 20 Mcg/2 Ml Vial NEB 03/28/23 10:44 Not Given BIDR SAMANTHA Gabapentin 300 mg 03/03/23 21:00 03/07/23 20:59 Gabapentin 300 Mg Cap PO 04/02/23 20:59 300 mg TID SAMANTHA Administration Guaifenesin 600 mg 03/02/23 15:00 03/07/23 20:59 Guaifenesin 600 Mg Tabcr PO 04/01/23 14:59 600 mg Q12 SAMANTHA Administration Promethazine HCl 6.25 mg/ 50.25 mls @ 201 mls/hr 02/26/23 02:18 03/06/23 15:39 Sodium Chloride IV 03/28/23 02:17 Infused Q6H PRN Infusion Nausea And Vomiting Insulin Aspart 0 units 03/08/23 06:00 03/08/23 06:00 Insulin Aspart Per Unit Charge SC 04/07/23 05:59 Not Given Q6H [facility] Protocol Insulin Glargine 25 units 03/05/23 09:00 03/07/23 08:50 Lantus Per Unit Charge SC 04/04/23 08:59 25 units QAM SAMANTHA Administration Isosorbide Mononitrate 30 mg 02/26/23 09:00 02/26/23 08:01 Isosorbide [place] Extended Rel 30 Mg Tabcr PO 03/28/23 08:59 30 mg DAILY SAMANTHA Administration Lisinopril 5 mg 02/26/23 09:00 02/27/23 09:15 Lisinopril 5 Mg Tab PO 03/28/23 08:59 5 mg QAM SAMANTHA Administration Melatonin 4.5 mg 02/26/23 05:52 03/07/23 00:25 Melatonin 3 Mg Tab PO 03/28/23 05:51 4.5 mg HS PRN Administration Sleep Metoprolol Succinate 50 mg 02/26/23 09:00 03/07/23 20:58 Metoprolol Succ 50mg Ext Rel Tab PO 03/28/23 08:59 50 mg BID SAMANTHA Administration Miscellaneous 15 - 30 gm 02/25/23 23:34 03/06/23 20:27 Carbohydrates For Hypoglycemia PO 03/27/23 23:33 15 gm UD PRN Administration Hypoglycemia Protocol Miscellaneous 1 each 02/26/23 08:59 03/07/23 08:54 Remove Nicoderm Patch N/A 03/28/23 08:58 1 each DAILY@0859 SAMANTHA Administration Nicotine 14 mg 02/26/23 09:00 03/07/23 08:54 Nicotine 14 Mg/24 Hr Patch TD 03/28/23 08:59 14 mg QAM SAMANTHA Administration Olanzapine 5 mg 02/26/23 21:00 03/07/23 20:58 Olanzapine 5 Mg Tablet PO 03/28/23 20:59 5 mg HS SAMANTHA Administration Olanzapine 2.5 mg 02/26/23 02:30 02/26/23 17:12 Olanzapine 10 Mg/2.1 Ml Sdv IM 03/28/23 02:29 2.5 mg Q4H PRN Administration Agitation Pantoprazole Sodium 40 mg 02/26/23 09:00 03/07/23 08:52 Pantoprazole 40 Mg Tab PO 03/28/23 08:59 40 mg DAILY SAMANTHA Administration Polyethylene Glycol 17 gm 03/03/23 12:45 03/07/23 08:53 Polyethylene (Miralax) 17 Gm Pack PO 04/02/23 12:44 Not Given DAILY SAMANTHA Potassium Chloride 40 meq 02/28/23 09:00 03/07/23 08:52 Potassium Chloride Crtab 20 Meq Tabcr PO 03/30/23 08:59 40 meq QAM SAMANTHA Administration Ropinirole HCl 1 mg 02/26/23 21:00 03/07/23 20:57 Ropinirole Hcl 1 Mg Tablet PO 03/28/23 20:59 1 mg QPM SAMANTHA Administration Sennosides 8.6 mg 03/03/23 12:45 03/07/23 08:52 Senna 8.6 Mg Tab PO 04/02/23 12:44 8.6 mg QAM SAMANTHA Administration Topiramate 50 mg 02/26/23 09:00 03/07/23 21:00 Topiramate 50 Mg Tab PO 03/28/23 08:59 50 mg BID SAMANTHA Administration Torsemide 40 mg 03/05/23 09:00 03/07/23 08:51 Torsemide 10 Mg Tab PO 04/04/23 08:59 40 mg QAM SAMANTHA Administration NPO Date Last Intake of Fluids: 03/07/23 Time Last Intake of Fluids: 18:00 Date Last Intake of Solids: 03/07/23 Time Last Intake of Solids: 18:00 Past Medical History Medical History Encephalopathy Acute on chronic respiratory failure with hypoxemia Multifocal pneumonia Pleural effusion Acute respiratory failure with hypoxia Pulmonary edema UTI (urinary tract infection) Right foot pain Fracture of left tibial plateau Acute on chronic HFrEF (heart failure with reduced ejection fraction) DVT prophylaxis HFrEF (heart failure with reduced ejection fraction) Abscess of aorta HTN (hypertension) Encounter for pre-operative examination History of left below knee amputation MRSA bacteremia Osteomyelitis LBBB (left bundle branch block) Carotid stenosis according to records from 2019 CEA was recommended but patient declined. no objective quantification available Tobacco use disorder Carpal tunnel syndrome, left Ulnar neuropathy at elbow of left upper extremity Anxiety Chronic congestive heart failure with left ventricular diastolic dysfunction Psychotic disorder Diabetes mellitus, type 2 Coronary artery disease Exercise / Class Metabolic Activity II 4-5 Yardwork/Stairs/Walk up hill Past Family History Family History Other Diabetes Heart disease Past Surgical History Surgical History Status post ORIF of fracture of ankle R, 2017 Status post cholecystectomy Status post hysterectomy Status post coronary artery bypass grafting Past Anesthesia History No Hx of Anesthesia Complications and No Family Hx of Anesthesia Complications History of PONV No Hx of PONV and No Hx of Motion Sickness Social History Smoking Status: Current every day smoker tobacco type: cigarettes Smoking cigarettes per day: 10 Do You Dip or Chew Tobacco: No substance use type: does not use Physical Exam Vital Signs Last Vital Signs Temp 36.4 C L 03/08/23 07:10 Pulse 67 03/08/23 07:10 Resp 18 03/08/23 07:10 BP 163/80 H 03/08/23 07:10 Pulse Ox 100 03/08/23 07:10 O2 Del Method Nasal Cannula 03/08/23 07:10 O2 Flow Rate 2 03/08/23 07:10 FiO2 80 03/01/23 07:18 ENMT Mouth: + dentures (upper); no dentition abnormality Thyromental Distance: > or= 3.5 Finger Breadths Mallampati Class: II Neck normal visual inspection Respiratory normal respiratory effort Auscultation: lungs clear to auscultation bilaterally and + diminished lung sounds Cardiovascular Rate/Rhythm: regular rate and regular rhythm Psychiatric Orientation: alert Testing Laboratory Results 03/08/23 06:36 PT 10.7 Seconds (9.0-12.0) 03/01/23 07:06 INR 1.0 (0.9-1.1) 03/01/23 07:06 APTT 28 Seconds (21-31) 03/01/23 07:06 Hemoglobin A1c 9.9 % (4.5-5.6) H 02/25/23 21:34 Urine Color Yellow 02/26/23 01:06 Urine Appearance Clear (Clear) 02/26/23 01:06 Urine pH 5.5 (4.5-7.5) 02/26/23 01:06 Ur Specific [place] 1.019 (1.000-1.030) 02/26/23 01:06 Urine Protein 3+ (Negative) H 02/26/23 01:06 Urine Glucose (UA) 3+ (Negative) H 02/26/23 01:06 Urine Ketones Negative (Negative) 02/26/23 01:06 Urine Nitrite Negative (Negative) 02/26/23 01:06 Ur Leukocyte Esterase Negative (Negative) 02/26/23 01:06 Urine WBC (Auto) 1-5 /hpf (0-5) 02/26/23 01:06 Urine RBC (Auto) 0-4 /hpf (0-4) 02/26/23 01:06 U Hyaline Cast (Auto) 0 /lpf (0-5) 02/26/23 01:06 U Epithel Cells (Auto) >30 /lpf (0-5) H 02/26/23 01:06 Urine Bacteria (Auto) Negative (Negative) 02/26/23 01:06 03/01/23 11:30 Gram Stain - Final Pleural Fluid Aerobic and Anaerobic Culture - Final No growth 02/25/23 21:34 Aerobic Blood Culture - Final Blood No growth in Aerobic bottle after 5 days. Anaerobic Blood Culture - Final No growth in Anaerobic bottle after 5 days. 02/25/23 21:34 Aerobic Blood Culture - Final Blood No growth in Aerobic bottle after 5 days. Anaerobic Blood Culture - Final No growth in Anaerobic bottle after 5 days. 02/26/23 01:06 Urine Culture - Final Urine,Clean Catch More than three types of organisms present, all high counts. Repeat collection recommended. No further identifications or sensitivities to follow. 03/08/23 03/07/23 05:57 20:07 POC Glucose 150 H 121 H
[2023-03-08 07:55] LABS: Calcium 9.3 mg/dl (8.6-10.3); Magnesium 1.5 mg/dl (1.7-2.4); Potassium 4.5 mmol/L (3.5-5.1)
[2023-03-08 08:01] LABS: BUN Creatinine Ratio 25.4 (10-20); Creatinine Clr Calc Pharmacy 43.5 ml/min; Est GFR (African American) 56.4 ml/min; Est GFR (Non-African American) 48.7 ml/min; Phosphorus 4.5 mg/dl (2.5-4.9)
[2023-03-08] MEDS ORDERED: LIDOCAINE 2% 2 ML VIAL/AMP(20MG/ML) INFIL ONE (08:25)
[2023-03-08] MEDS ORDERED: PROPOFOL IV EMULSION 10 MG/ML 20 ML VIAL IV ONE (08:25)
--- NOTE | 2023-03-08 08:25 | Post Operative Brief Note ---
Cardiology Brief Post Op Date of Surgery March 08, 2023 Pre & Post Diagnosis Operation Date: 03/08/23 07:15 Procedure Preprocedure diagnosis: Recurrent pulmonary edema, suspected severe mitral regurgitation Post procedure diagnosis: Severe mitral regurgitation, pulmonary hypertension Transesophageal echocardiogram procedure: After informed consent was obtained a timeout was performed the patient was sedated with the assistance of the anesthesia service. Severe mitral regurgitation is noted. Moderate tricuspid regurgitation noted likely related to elevated pulmonary venous pressure from the mitral regurgitation. Backpack[employer] Manager Casa Fuller DO [employer] SHAN Abreu Estimated Blood Loss 0 Findings Consistent with Post-Op Diagnosis Anesthesia Type MAC Complications none
--- NOTE | 2023-03-08 08:33 | Cardiology Progress Note ---
Date of Service March 08, 2023 Assessment & Plan (1) Acute on chronic heart failure with preserved ejection fraction (HFpEF): (2) Mitral regurgitation: (3) Pleural effusion, bilateral: Plan 62-year-old female with a history of complex multi bed atherosclerotic vascular disease. She underwent CABG x 4 in 2013. Through the years, dating back to 2016, the patient has had varying degrees of mitral regurgitation. In March, she presented with a mechanical fall and left ankle fracture and underwent surgical intervention with subsequent wound dehiscence ultimately leading to left below the knee amputation. Multiple blood cultures dating back to May and then July, were positive for MRSA. 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 Throughout 2022 the patient had multiple admissions for recurrent pulmonary edema and pleural effusions. She was readmitted on 02/25/2023 with hypoxic respiratory failure and severe bilateral pleural effusions. She underwent ultrasound-guided thoracentesis of a large left pleural effusion on 03/01/2023 yielding 1000 mL of devika-colored pleural fluid. Cytology of the pleural fluid was negative for malignancy. The patient has improved with aggressive diuretic therapy and thoracentesis. She was transition to oral torsemide as of 03/06/23. She has undergone transesophageal echocardiogram performed today revealing severe mitral gravitation with a centrally directed jet due to mild coaptation of the anterior and posterior mitral valve leaflets. No significant prolapse was observed. I have concerns that with regards to the patient's overall comorbidities that she would be a poor candidate for a surgical mitral valve intervention. Will plan on reviewing her transesophageal echocardiogram images with the structural heart team [place] [facility] to see if there is a possible percutaneous option for her mitral regurgitation. Continue aspirin, clopidogrel, Toprol-XL, lisinopril, and atorvastatin as well as torsemide. Stable for discharge later today from a cardiology perspective if she completes the post sedation recovery protocol as anticipated. She has had a history of past somnolence and in the past hallucinations per review of her chart. So she may need another day to recover to her baseline. Dannielle Fuller DO Admission and Anticipated Discharge Date Admission Date: February 25, 2023 Subjective Patient seen in cardiology follow-up prior to, during and post transesophageal echocardiogram. Patient did well overnight last night. Remains in sinus rhythm. No acute complaints. Respiratory status is stable. As noted she has been on 2 L/min nasal cannula on the telemetry floor and her recent historical dose of supplementary oxygen at home has been 4 L/min. Physical Exam Constitutional: + ill appearing (chronically ill in appe [facility] without acute distress ); no acute distress Respiratory: no respiratory distress and no labored breathing Auscultation: + diminished lung sounds (mildly decreased BS at the bases ) and + rales (Bilateral mid lung field); no wheezes Cardiovascular: Rate/Rhythm: regular rate and regular rhythm Heart Sounds: normal S1, normal S2 and + murmur (II/ SM) Vessels: radial pulses present; no JVD Extremities: + edema (Trace bilateral edema) Gastrointestinal (Abdomen): Inspection/Auscultation: abdomen normal to inspection and normal bowel sounds; abdomen not distended Percussion/Palpation: abdomen soft; abdomen nontender, no guarding and abdomen not rigid Neurologic: CN's II-XI intact bilaterally and moves all extremities; no focal motor deficits Results & Data Vital Signs (Past 12 Hours) Vital Signs Temp Pulse Pulse Pulse Resp BP Pulse Ox 03/08/23 08:20 74 18 117/72 100 03/08/23 07:10 36.4 C L 67 18 163/80 H 100 03/08/23 02:50 36.8 C 65 18 124/78 97 03/07/23 23:00 79 03/07/23 22:47 36.7 C 78 18 121/71 100 O2 Del Method O2 Flow Rate 03/08/23 08:20 Oxymask 5 03/08/23 07:10 Nasal Cannula 2 03/08/23 02:50 Nasal Cannula 03/07/23 23:00 03/07/23 22:47 Nasal Cannula 2 Laboratory Results CBC 03/08/23 Range/Units 06:36 WBC 10.70 (4.8-10.8) K/ul RBC 3.08 L (4.20-5.40) M/uL Hgb 9.2 L (12.0-16.0) g/dl Hct 29.8 L (37.0-47.0) % Plt Count 246 (130-400) K/uL Comprehensive Metabolic Panel 03/08/23 Range/Units 06:36 Sodium 137 (136-145) mmol/L Potassium 4.5 (3.5-5.1) mmol/L Chloride 103 (98-107) mmol/L Carbon Dioxide 27 (21-32) mmol/L BUN 30 H (6-23) mg/dl Creatinine 1.18 (0.6-1.2) mg/dl Glucose 130 H (70-99(Fasting)) mg/dl Calcium 9.3 (8.6-10.3) mg/dl (2) Mitral regurgitation Cardiac valve disease etiology: nonrheumatic Qualified Code(s): I34.0 - Nonrheumatic mitral (valve) insufficiency
--- NOTE | 2023-03-08 08:58 | Anesthesiology Progress Note ---
Date of Service March 08, 2023 Anesthesia Post Procedure Vital Signs Vital Signs: Temp Pulse Pulse Pulse Resp BP BP 03/08/23 08:27 76 18 131/66 03/08/23 08:20 74 18 117/72 03/08/23 07:10 36.4 C L 67 18 163/80 H 03/08/23 02:50 36.8 C 65 18 124/78 03/07/23 23:00 79 03/07/23 22:47 36.7 C 78 18 121/71 03/07/23 20:00 03/07/23 19:20 36.8 C 88 18 122/60 03/07/23 18:11 75 16 03/07/23 15:36 36.9 C 75 18 126/73 03/07/23 15:11 74 03/07/23 10:52 36.6 C 78 16 105/63 Pulse Ox O2 Del Method O2 Flow Rate 03/08/23 08:27 100 Nasal Cannula 2 03/08/23 08:20 100 Oxymask 5 03/08/23 07:10 100 Nasal Cannula 2 03/08/23 02:50 97 Nasal Cannula 03/07/23 23:00 03/07/23 22:47 100 Nasal Cannula 2 03/07/23 20:00 Nasal Cannula 2 03/07/23 19:20 98 Nasal Cannula 03/07/23 18:11 100 Nasal Cannula 2 03/07/23 15:36 100 Nasal Cannula 03/07/23 15:11 03/07/23 10:52 100 Nasal Cannula 2 Transfer of Care Handoff Completed per policy Notes Mental Status: alert / awake / arousable Patient Amnestic to Procedure: Yes Nausea / Vomiting: adequately controlled Pain: adequately controlled Airway Patency, RR, SpO2: stable & adequate BP & HR: stable & adequate Hydration State: stable & adequate Anesthetic Complications: no major complications apparent
[2023-03-08] MEDS: guaiFENesin 600 MG TABCR PO SCH ×2 (10:09→20:43)
[2023-03-08] MEDS: CLOPIDOGREL BISULFATE 75 MG TAB PO SCH (10:09)
[2023-03-08] MEDS: GABAPENTIN 300 MG CAP PO SCH ×3 (10:10→20:43)
[2023-03-08] MEDS: DOXYCYCLINE HYCLATE 100 MG CAP PO SCH ×2 (10:10→20:42)
[2023-03-08] MEDS: TOPIRAMATE 50 MG TAB PO SCH ×2 (10:15→20:42)
[2023-03-08] MEDS: METOPROLOL SUCC 50MG EXT REL TAB PO SCH ×2 (10:15→20:43)
[2023-03-08] MEDS: NICOTINE 14 MG/24 HR PATCH TD SCH (10:16)
[2023-03-08] MEDS: PANTOprazole 40 MG TAB PO SCH (10:16)
[2023-03-08] MEDS: DULoxetine HCL 30 MG CAP PO SCH (10:17)
[2023-03-08] MEDS: AMOXICILLIN/CLAVULANATE 875 MG TAB PO SCH ×2 (10:17→17:12)
[2023-03-08] MEDS: TORSEMIDE 10 MG TAB PO SCH (10:17)
[2023-03-08] MEDS: ASPIRIN 81 MG CHEW PO SCH (10:17)
[2023-03-08] MEDS: SENNA 8.6 MG TAB PO SCH (10:17)
[2023-03-08] MEDS: DULoxetine HCL 60 MG CAP PO SCH (10:17)
[2023-03-08] MEDS: POTASSIUM CHLORIDE CRTAB 20 MEQ TABCR PO SCH (10:18)
[2023-03-08] MEDS: POLYETHYLENE (MIRALAX) 17 GM PACK PO SCH (10:18)
[2023-03-08] MEDS: MAGNESIUM OXIDE 400 MG TAB PO SCH ×2 (10:19→20:44)
[2023-03-08] MEDS: LANTUS PER UNIT CHARGE SC SCH (10:34)
--- NOTE | 2023-03-08 12:36 | Hospitalist Progress Note ---
Date of Service March 08, 2023 Assessment & Plan (1) Acute on chronic heart failure with preserved ejection fraction (HFpEF): Plan per admitting service notes with addendum: (1) Respiratory failure: Plan: Acute on chronic hypoxemic respiratory failure secondary to decompensated heart failure, hx diastolic dysfunction BNP 800s Respiratory panel negative Echocardiogram: EF 50 to 55%, mild concentric LVH, severe mitral regurgitation Improving On high flow O2 previously, then had L thoracentesis on 03/01/23 which improved oxygen requirement 03/05-03/06 on 4-5L - about baseline oxygen requirement Was on IV lasix during her hospitalization, now switched to PO torsemide Budesonide, Perforomist C4 Planner and pulmonary service consulted s/p L thoracentesis on 03/01/23 Cont suppl. O2, wean off accordingly, 4L at baseline 03/08 currently on 2 L O2 Stable overall Continue torsemide 40 mg p.o. daily WBC elevated on (03/03/23) Pt reports productive cough repeat CXR w/ pulm. vasc. congestion, pl. effusion and consolidation Pt possibly developing pna. No fevers, procal negat. Started empiric augmentin and doxy as trying to avoid any ivf sputum cultx ordered but not collected 03/08 Continue Augmentin twice daily day #5 Severe mitral regurgitation Seen on JUAN DAVID 03/[address] Fuller reviewing images with structural heart team at [facility] Palliative care service consulted Troponin elevation secondary to above Possible NSTEMI given patient chest pain complaints expressed to ER provider. --Denies active chest pain on exam --was on IV heparin initially Continue aspirin, clopidogrel, and metoprolol succinate. Restarted atorvastatin (outpatient 80 mg daily). 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 lovenox subq DNR/DNI Disposition CM involved, plan to DC tmrw Admission and Anticipated Discharge Date Admission Date: February 25, 2023 Subjective Follow-up acute CHF, etc. Seen resting in bedside chair, comfortable, not in distress States he feels fine overall Denies shortness of breath, chest complication, dizziness No other new symptoms Review of Systems Review of Systems: all noted and negative except for above Physical Exam Physical Exam: General- oriented x 2, not in distress, speaks in sentences with no effort or accessory muscle use Eyes- anicteric Neck- no JVD Lungs- clear breath sounds bilaterally, no rales/wheezes Heart- normal rate, regular rhythm; no murmurs Abdomen- normal bowel sounds, nondistended, soft, nontender Extremities- no pretibial edema, no calf tenderness Neuro- alert, oriented x 2; no gross focal neurologic deficits Skin- warm & dry Results & Data Results & Data Vital Signs (Past 12 Hours) Vital Signs Temp Pulse Pulse Resp BP BP Pulse Ox 03/08/23 11:56 36.6 C 72 19 106/66 95 03/08/23 10:10 36.6 C 68 19 126/78 94 03/08/23 09:23 36.5 C 75 17 130/81 100 03/08/23 08:55 36.5 C 74 20 136/70 96 03/08/23 08:27 76 18 131/66 100 03/08/23 08:20 74 18 117/72 100 03/08/23 07:10 36.4 C L 67 18 163/80 H 100 03/08/23 02:50 36.8 C 65 18 124/78 97 O2 Del Method O2 Flow Rate 03/08/23 11:56 Room Air 03/08/23 10:10 Room Air 03/08/23 09:23 Nasal Cannula 2 03/08/23 08:55 Nasal Cannula 2 03/08/23 08:27 Nasal Cannula 2 03/08/23 08:20 Oxymask 5 03/08/23 07:10 Nasal Cannula 2 03/08/23 02:50 Nasal Cannula all noted and reviewed including below
--- NOTE | 2023-03-08 13:10 | Pharmacy Report ---
Pharmacy Glycemic Short Note 2 - Date of Service March 08, 2023 - Glycemic Short BSG Results (Last 24 hours): 03/07/23 03/07/23 03/08/23 16:02 20:07 05:57 Glucose POC Glucose 180 H 121 H 150 H 03/08/23 03/08/23 03/08/23 06:36 10:22 11:42 Glucose 130 H POC Glucose 190 H 190 H OUTPATIENT ANTIDIABETIC REGIMEN: * Lantus 35 units SC AM * HbA1c: 9.9% (02/25/23) ASSESSMENT: 03/08: * Blood sugars have remained somewhat labile over past 48 hours, ranging 59-266 mg/dL * Receiving ~75-85 units of insulin/day * Given hypoglycemia on 03/06 - will remain conservative with Novolog changes * NPO this AM for JUAN DAVID, diet now ordered * Plan is for discharge on 03/09 to inpatient rehab 03/05: * Patient received total of 61 units of insulin yesterday, of which 20 units were basal * Fasting BSG 199 mg/dL - will increase basal to 25 units this AM * BSG yesterday all in >200s, will tighten novolog this AM. Unclear reasoning for BSGs rising yesterday, no steroids 03/01: * Patient received total 42 units of insulin yesterday; 25 units basal and 17 units bolus. * BSGs yesterday were [id number] mg/dl. Novolog parameters continued the same. * Fasting BSG was 97 mg/dl today. Basal dose reduced to 20 units in AM only (none at HS). 02/26: * 62 yo F admitted on 02/25/23 secondary to respiratory failure. Pharmacy has been consulted to assist with inpatient glycemic management. Patient is a Type 2 diabetic as an outpatient. Please refer to outpatient regimen and most recent HbA1c above. * BSG last night was 382 mg/dL. Patient was and remains NPO. Heparin drip infusing. No abx. No steroids. * Overnight, BSGs were 462 and 370 mg/dL. Patient received two separate basal doses, one was 10 units and the other was 15 units (around 0000 and 0300). 13 units of Novolog were given for the BSG of 462 mg/dL. * Fasting was 381 mg/dL this AM. Will give another 10 units basal to equal total daily dose of 35 units today (matches home regimen). Also gave a 5 unit IV push of insulin this morning. Potassium was 3.9 so no replacement was ordered. Novolog was tightened as well. * Lunchtime BSG was 326 mg/dL, improved but not close to goal. Will not tighten Novolog or Lantus further at this point as patient is receiving much more insulin than used to at home. A1c is not at goal so home basal dose may not be adequate. Plan to give a 10 unit IV push of insulin with lunch in addition to Novolog coverage. Spoke with provider and will give 2 K-riders empirically given second IV bolus of the day. Hopefully, this will help bring BSGs down below 250 mg/dL. * Will have second shift pharmacist review dinner BSG and plan to start IV insulin infusion if BSG > 300 mg/dL. May possibly need more basal at bedtime. PLAN FOR INPATIENT GLYCEMIC CONTROL: * Basal insulin * Lantus 25 units SC AM * Bolus insulin * NovoLog per scale ACHS or Q6hrs while NPO * Goal Range: Low 110 mg/dL - High 140 mg/dL * Correction Factor: 20 mg/dL/unit * Nutritional / Prandial insulin per carb ratio of 1 unit per 5 grams CHO consumed
[2023-03-08] MEDS: ACETAMINOPHEN 325 MG TAB PO PRN ×2 (16:22→21:53)
[2023-03-08] MEDS: ENOXAPARIN INJ 30 MG/0.3 ML SYR SQ SCH (17:12)
[2023-03-08] MEDS: ATORVASTATIN 40 MG TAB PO SCH (20:41)
[2023-03-08] MEDS: rOPINIRole HCL 1 MG TABLET PO SCH (20:42)
[2023-03-08] MEDS: OLANZapine 5 MG TABLET PO SCH (20:43)
[2023-03-08] MEDS: MELATONIN 3 MG TAB PO PRN (20:45)
[2023-03-09] MEDS: BUDESONIDE 0.5 MG/2 ML VIAL (PULMICORT) NEB SCH (07:18)
[2023-03-09] MEDS: FORMOTEROL 20 MCG/2 ML VIAL NEB SCH (07:18)
[2023-03-09] MEDS: POLYETHYLENE (MIRALAX) 17 GM PACK PO SCH (08:58)
[2023-03-09] MEDS: SENNA 8.6 MG TAB PO SCH (08:58)
[2023-03-09] MEDS: LANTUS PER UNIT CHARGE SC SCH (09:08)
[2023-03-09] MEDS: INSULIN ASPART PER UNIT CHARGE SC SCH ×2 (09:09→12:04)
[2023-03-09] MEDS: POTASSIUM CHLORIDE CRTAB 20 MEQ TABCR PO SCH (09:09)
[2023-03-09] MEDS: DULoxetine HCL 60 MG CAP PO SCH (09:10)
[2023-03-09] MEDS: TORSEMIDE 10 MG TAB PO SCH (09:10)
[2023-03-09] MEDS: METOPROLOL SUCC 50MG EXT REL TAB PO SCH (09:11)
[2023-03-09] MEDS: guaiFENesin 600 MG TABCR PO SCH (09:11)
[2023-03-09] MEDS: GABAPENTIN 300 MG CAP PO SCH (09:11)
[2023-03-09] MEDS: DULoxetine HCL 30 MG CAP PO SCH (09:12)
[2023-03-09] MEDS: NICOTINE 14 MG/24 HR PATCH TD SCH (09:12)
[2023-03-09] MEDS: AMOXICILLIN/CLAVULANATE 875 MG TAB PO SCH (09:13)
[2023-03-09] MEDS: DOXYCYCLINE HYCLATE 100 MG CAP PO SCH (09:13)
[2023-03-09] MEDS: PANTOprazole 40 MG TAB PO SCH (09:14)
[2023-03-09] MEDS: TOPIRAMATE 50 MG TAB PO SCH (09:14)
[2023-03-09] MEDS: CLOPIDOGREL BISULFATE 75 MG TAB PO SCH (09:14)
[2023-03-09] MEDS: ASPIRIN 81 MG CHEW PO SCH (09:20)
[2023-03-09] MEDS: ACETAMINOPHEN 325 MG TAB PO PRN (09:23)
--- NOTE | 2023-03-09 10:12 | Hospitalist Progress Note ---
Date of Service March 09, 2023 Assessment & Plan (1) Acute on chronic heart failure with preserved ejection fraction (HFpEF): Plan per admitting service notes with addendum: (1) Respiratory failure: Plan: Acute on chronic hypoxemic respiratory failure secondary to decompensated heart failure, hx diastolic dysfunction BNP 800s Respiratory panel negative Echocardiogram: EF 50 to 55%, mild concentric LVH, severe mitral regurgitation On high flow O2 previously, then had L thoracentesis on 03/01/23 which improved oxygen requirement Was on IV lasix during her hospitalization, now switched to PO torsemide Budesonide, Perforomist [employer] and pulmonary service consulted WBC elevated on (03/03/23) Pt reports productive cough repeat CXR w/ pulm. vasc. congestion, pl. effusion and consolidation Pt possibly developing pna. No fevers, procal negat. completed empiric augmentin and doxy x 7 days 03/09 currently on 2 L O2 Stable overall Continue torsemide 40 mg p.o. daily continue Budesonide + Formoterol Nebs continue CPAP at HS Severe mitral regurgitation Seen on JUAN DAVID 03/[address] Fuller reviewing images with structural heart team at [facility] ff up with [facility] in 1-2 weeks Troponin elevation secondary to above Possible NSTEMI given patient chest pain complaints expressed to ER provider. --Denies active chest pain on exam --was on IV heparin initially Continue aspirin, clopidogrel, and metoprolol succinate. Restarted atorvastatin (outpatient 80 mg daily). 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 lovenox subq givwn DNR/DNI discharge to SNF ff up with PCP in 1 week ff up with Cardiology Clinic in 1-2 weeks Admission and Anticipated Discharge Date Admission Date: February 25, 2023 Subjective ff up for acute hypoxic respiratory failure, etc seen resting in bed, comfortable on 2L oriented x 3 no chest pain, dyspnea, palpitations, dizziness no cough, fever/chills no other symptoms states she is ready for discharge Review of Systems Review of Systems: all noted and negative except for above Physical Exam Physical Exam: General- oriented x 3, not in distress, speaks in sentences with no effort or accessory muscle use Eyes- anicteric Neck- no JVD Lungs- clear breath sounds bilaterally, no rales/wheezes Heart- normal rate, regular rhythm; no murmurs Abdomen- normal bowel sounds, nondistended, soft, nontender Extremities- no pretibial edema, no calf tenderness Neuro- alert, oriented x 3; no gross focal neurologic deficits Skin- warm & dry Results & Data Results & Data Vital Signs (Past 12 Hours) Vital Signs Temp Pulse Pulse Resp BP Pulse Ox O2 Del Method 03/09/23 07:54 Nasal Cannula 03/09/23 07:26 36.3 C L 67 18 108/64 98 Nasal Cannula 03/09/23 07:19 69 18 99 Nasal Cannula 03/09/23 03:05 37 C 77 18 116/68 99 Nasal Cannula 03/08/23 23:23 36.6 C 76 18 122/71 98 Nasal Cannula 03/08/23 23:00 80 O2 Flow Rate 03/09/23 07:54 2 03/09/23 07:26 2 03/09/23 07:19 1 03/09/23 03:05 03/08/23 23:23 03/08/23 23:00 all noted and reviewed including below
--- NOTE | 2023-03-09 10:52 | Discharge Summary ---
Discharge Summary Date of Service March 09, 2023 Notes For Next Care Provider Medication Changes From Visit per below. Admission HPI Per Admitting Provider History obtained from patient, family, and records. Limited history from patient secondary to lethargy post Ativan administration at the ER. Medical history significant for chronic diastolic heart failure (EF 55 to 60%, TTE 2022), CAD status post CABG, PVD, valvular heart disease (moderate to severe MR), history mitral valve endocarditis/periaortic abscess as per records, chronic LBBB, chronic respiratory failure secondary to possible COPD as per records on home O2, ISAURA on CPAP, hypertension, hyperlipidemia, DM 2 insulin requiring, GERD, chronic anemia (baseline hemoglobin of 8), mood disorder, paranoia as per rec ords, history of MRSA bacteremia as per records, medical noncompliance as per records, ongoing tobacco abuse. Last confinement December 2022 for encephalopathy and CHF. Patient discharged home despite concerns regarding patient's ability to live independently given recurrent confinements. 1 week history of sinus congestion symptoms. Sudden SOB tonight as per records. Patient expressed chest pain complaints as per ER provider. O2 sats noted to be 80s at patient's home. Solu-Medrol, neb treatment, IV Ativan, IV heparin, and Nitropaste administered at the ER. BiPAP initiated at the ER. Medical History as above Surgical History : CABG, hysterectomy, cholecystectomy Family History : DM, heart disease, stroke Personal/Social history : 1 pack daily, occasional EtOH intake, lives by self Admission Exam Per Admitting Provider GENERAL: Lethargic, slightly uncomfortable, minimal respiratory distress SKIN: Pallor, warm HEENT: Pale palpebral conjunctivae, no ptosis, dry buccal mucosa, O2 mask in place NECK : Supple, no tenderness CHEST : Decreased breath sounds, no tenderness HEART : Tachycardic, systolic murmur ABDOMEN: Some distention, nontender EXTREMITIES : Minimal LE swelling/tenderness, no other conspicuous deformities noted NEUROLOGIC : Lethargic, no facial asymmetry, gait and stance not assessed Principal Dx & Hospital Course #1 = Principal Diagnosis (1) Acute on chronic heart failure with preserved ejection fraction (HFpEF): Plan per admitting service notes with addendum: (1) Respiratory failure: Plan: Acute on chronic hypoxemic respiratory failure secondary to decompensated heart failure, hx diastolic dysfunction BNP 800s Respiratory panel negative Echocardiogram: EF 50 to 55%, mild concentric LVH, severe mitral regurgitation On high flow O2 previously, then had L thoracentesis on 03/01/23 which improved oxygen requirement Was on IV lasix during her hospitalization, now switched to PO torsemide Budesonide, Perforomist [employer] and pulmonary service consulted WBC elevated on (03/03/23) Pt reports productive cough repeat CXR w/ pulm. vasc. congestion, pl. effusion and consolidation Pt possibly developing pna. No fevers, procal negat. completed empiric augmentin and doxy x 7 days 03/09 currently on 2 L O2 Stable overall Continue torsemide 40 mg p.o. daily continue Budesonide + Formoterol Nebs continue CPAP at HS Severe mitral regurgitation Seen on JUAN DAVID 03/[address] Fuller reviewing images with structural heart team at [facility] ff up with [facility] in 1-2 weeks Troponin elevation secondary to above Possible NSTEMI given patient chest pain complaints expressed to ER provider. --Denies active chest pain on exam --was on IV heparin initially Continue aspirin, clopidogrel, and metoprolol succinate. Restarted atorvastatin (outpatient 80 mg daily). 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 lovenox subq givwn DNR/DNI discharge to SNF ff up with PCP in 1 week ff up with Cardiology Clinic in 1-2 weeks Discharge Exam General- oriented x 3, not in distress, speaks in sentences with no effort or accessory muscle use Eyes- anicteric Neck- no JVD Lungs- clear breath sounds bilaterally, no rales/wheezes Heart- normal rate, regular rhythm; no murmurs Abdomen- normal bowel sounds, nondistended, soft, nontender Extremities- no pretibial edema, no calf tenderness Neuro- alert, oriented x 3; no gross focal neurologic deficits Skin- warm & dry Updated Medication List Medication Instructions Recorded Confirmed Type nitroglycerin 0.4 mg sublingual 0.4 mg sublingual .PRN/UD PRN 05/14/21 02/25/23 History tablet Chest Pain melatonin 5 mg tablet 5 mg PO HS 08/02/22 02/25/23 History insulin glargine 100 unit/mL (3 35 unit subcut QAM 10/30/22 02/25/23 History mL) subcutaneous pen (Marichuy EscobedoSnian U-100 Insulin) olanzapine 5 mg tablet 5 mg PO HS 11/16/22 02/25/23 History gabapentin 400 mg capsule 400 mg PO TID #30 caps 12/07/22 02/25/23 Rx duloxetine 60 mg capsule,delayed 60 mg PO DAILY 12/31/22 02/25/23 History release furosemide 40 mg tablet 40 mg PO QAM 12/31/22 02/25/23 History isosorbide mononitrate 30 mg 30 mg PO DAILY 12/31/22 02/25/23 History tablet,extended release 24 hr lisinopril 5 mg tablet 5 mg PO QAM 12/31/22 02/25/23 History metoprolol succinate 100 mg 100 mg PO QAM 12/31/22 02/25/23 History tablet,extended release 24 hr metoprolol succinate 50 mg 50 mg PO PM 12/31/22 02/25/23 History tablet,extended release 24 hr ropinirole 1 mg tablet 1 mg PO QPM 12/31/22 02/25/23 History topiramate 50 mg tablet (Topamax) 50 mg PO BID 12/31/22 02/25/23 History tramadol 50 mg tablet 50 mg PO Q6H PRN Severe Pain 12/31/22 02/25/23 History (Scale Score 7-10) aspirin 81 mg chewable tablet 81 mg PO DAILY 30 days #30 tabs 03/09/23 Rx (Children's Aspirin) atorvastatin 40 mg tablet 80 mg (2 x 40 mg) PO HS #30 tabs 03/09/23 Rx budesonide 0.5 mg/2 mL suspension 0.5 mg (2 mL) NEB BIDR 30 days #60 03/09/23 Rx for nebulization mL clopidogrel 75 mg tablet 75 mg PO DAILY #30 tabs 03/09/23 Rx duloxetine 30 mg capsule,delayed 30 mg PO DAILY 30 days #30 caps 03/09/23 Rx release formoterol fumarate 20 mcg/2 mL 20 mcg (2 mL) NEB BIDR 30 days #60 03/09/23 Rx solution for nebulization mL (Perforomist) gabapentin 300 mg capsule 300 mg PO TID 30 days #90 caps 03/09/23 Rx insulin aspart U-100 100 unit/mL 1 unit (0.01 mL) SC ACHS #10 mL 03/09/23 Rx subcutaneous solution (Novolog U-100 Insulin aspart) insulin glargine 100 unit/mL 25 unit (0.25 mL) SC QAM #10 mL 03/09/23 Rx subcutaneous solution (Lantus U-100 Insulin) metoprolol succinate 50 mg 50 mg PO BID 30 days #60 tabs 03/09/23 Rx tablet,extended release 24 hr nicotine 14 mg/24 hr daily 1 patch transdermal QAM 30 days 03/09/23 Rx transdermal patch #30 ea pantoprazole 40 mg tablet,delayed 40 mg PO DAILY 30 days #30 tabs 03/09/23 Rx release polyethylene glycol 3350 17 gram 17 g PO DAILY 30 days #30 ea 03/09/23 Rx oral powder packet (Miralax) potassium chloride 20 mEq 40 meq (2 x 20 mEq) PO QAM 30 days 03/09/23 Rx tablet,extended release(part/cryst) #60 tabs sennosides 8.6 mg tablet (Senokot) 8.6 mg PO QAM 30 days #30 tabs 03/09/23 Rx torsemide 10 mg tablet 40 mg (4 x 10 mg) PO QAM 30 days 03/09/23 Rx #120 tabs Hospital Stay Data Consultations 02/25/23 22:36 ED Decision to Admit Stat 02/26/23 02:18 Consult Cardiology Routine 02/26/23 06:49 Consult Palliative Care Routine 02/26/23 08:57 Consult Pulmonology Routine 03/07/23 14:23 Consult Anesthesiology Routine Procedures Performed Operation Date: 03/08/23 07:15 Actual Procedures p Echo Transesophageal - DO sandi Ag Echo Doppler Complete - DO sandi Ag Echo Color Flow - Casa Fuller DO Diagnostic Imagining Performed Laboratory Results WBC 10.70 K/ul (4.8-10.8) 03/08/23 06:36 RBC 3.08 M/uL (4.20-5.40) L 03/08/23 06:36 Hgb 9.2 g/dl (12.0-16.0) L 03/08/23 06:36 Hct 29.8 % (37.0-47.0) L 03/08/23 06:36 MCV 96.8 fL (80.0-100.0) 03/08/23 06:36 MCH 29.9 pg (25.0-34.0) 03/08/23 06:36 MCHC 30.9 g/dL (32.0-36.0) L 03/08/23 06:36 RDW Std Deviation 54.2 fL (36.4-46.3) H 03/08/23 06:36 RDW Coeff of Fabio 15.2 % (11.5-14.5) H 03/08/23 06:36 Plt Count 246 K/uL (130-400) 03/08/23 06:36 MPV 11.3 fL (9.4-12.4) 03/08/23 06:36 Immature Gran % (Auto) 2.9 % 03/04/23 05:40 Neut % (Auto) 46.7 % 03/04/23 05:40 Lymph % (Auto) 11.8 % 03/04/23 05:40 [place] % (Auto) 37.9 % 03/04/23 05:40 Eos % (Auto) 0.3 % 03/04/23 05:40 Baso % (Auto) 0.4 % 03/04/23 05:40 Neut # (Auto) 7.04 K/uL (1.40-6.50) H 03/04/23 05:40 Lymph # (Auto) 1.78 K/uL (1.20-3.40) 03/04/23 05:40 [place] # (Auto) 5.72 K/uL (0.11-0.59) H 03/04/23 05:40 Eos # (Auto) 0.05 K/uL (0.00-0.50) 03/04/23 05:40 Baso # (Auto) 0.06 K/uL (0.00-0.20) 03/04/23 05:40 Immature Gran # (Auto) 0.44 K/uL (0.01-0.20) H 03/04/23 05:40 Absolute Nucleated RBC 0.02 K/uL (0.00-0.12) 02/28/23 06:12 Nucleated RBC % (auto) 0.2 % 02/28/23 06:12 Toxic Vacuolation 3+ 02/27/23 03:33 RBC Morphology Unremarkable 03/04/23 05:40 Polychromasia 1+ 03/03/23 08:44 Anisocytosis Present 02/28/23 06:12 PT 10.7 Seconds (9.0-12.0) 03/01/23 07:06 INR 1.0 (0.9-1.1) 03/01/23 07:06 APTT 28 Seconds (21-31) 03/01/23 07:06 PTT Ratio 1.0 03/01/23 07:06 Heparin Anti-Xa, Unfract 0.50 IU/ml (0.3-0.7) 02/28/23 15:58 ABG pH 7.38 (7.35-7.45) 02/28/23 12:24 ABG pCO2 47 mmHg (35-46) H 02/28/23 12:24 ABG pO2 69 mmHg (80-95) L 02/28/23 12:24 ABG HCO3 28 mmol/L (19-24) H 02/28/23 12:24 ABG O2 Saturation 93.9 % (90-95) 02/28/23 12:24 ABG Base Excess 2.3 mEq/L (-9-1.8) H 02/28/23 12:24 Christopher Test Pos (Pos) 02/28/23 12:24 VBG pH 7.42 (7.36-7.41) H 02/25/23 21:34 VBG pCO2 43 mmHg (38-50) 02/25/23 21:34 VBG pO2 40 mmHg 02/25/23 21:34 VBG HCO3 28 mmol/L 02/25/23 21:34 VBG O2 Saturation 64.6 % 02/25/23 21:34 VBG Base Excess 2.9 mEq/L 02/25/23 21:34 Barometric Pressure Cancelled 02/28/23 11:55 Oxygen Given 50% FIO2 02/28/23 12:24 Sodium 137 mmol/L (136-145) 03/08/23 06:36 Potassium 4.5 mmol/L (3.5-5.1) 03/08/23 06:36 Chloride 103 mmol/L (98-107) 03/08/23 06:36 Carbon Dioxide 27 mmol/L (21-32) 03/08/23 06:36 Anion Gap 7 (3-11) 03/08/23 06:36 BUN 30 mg/dl (6-23) H 03/08/23 06:36 Creatinine 1.18 mg/dl (0.6-1.2) 03/08/23 06:36 Est Cr Clr Drug Dosing 43.5 ml/min 03/08/23 06:36 Est GFR ( Amer) 56.4 ml/min 03/08/23 06:36 Est GFR (Non-Af Amer) 48.7 ml/min 03/08/23 06:36 BUN/Creatinine Ratio 25.4 (10-20) H 03/08/23 06:36 Glucose 130 mg/dl (70-99(Fasting)) H 03/08/23 06:36 POC Glucose 148 mg/dl (70-99) H 03/09/23 07:26 Estimat Average Glucose 237 mg/dl 02/25/23 21:34 Hemoglobin A1c 9.9 % (4.5-5.6) H 02/25/23 21:34 Lactate 1.8 mmol/L (0.4-2.0) 02/25/23 21:34 Calcium 9.3 mg/dl (8.6-10.3) 03/08/23 06:36 Phosphorus 4.5 mg/dl (2.5-4.9) 03/08/23 06:36 Magnesium 1.5 mg/dl (1.7-2.4) L 03/08/23 06:36 Total Bilirubin 1.0 mg/dl (0.2-1.0) 02/25/23 20:51 AST 32 U/L (13-39) 02/25/23 21:38 ALT 21 U/L (7-52) 02/25/23 20:51 Alkaline Phosphatase 69 U/L (34-104) 02/25/23 20:51 Ammonia 30.0 umol/L (18-72) 02/26/23 00:02 Lactate Dehydrogenase 257 U/L (86-244) H 03/01/23 11:43 Troponin I High Sens 821.4 pg/ml (0-14) H* D 02/25/23 22:56 B-Natriuretic Peptide 711 pg/ml (0-100) H 02/25/23 21:34 Total Protein 6.3 gm/dl (6.0-8.3) 03/01/23 11:43 Albumin 3.8 gm/dl (3.4-5.0) 02/25/23 20:51 Globulin 3.6 gm/dl (2.5-4.0) 02/25/23 20:51 Albumin/Globulin Ratio 1.1 (0.9-2) 02/25/23 20:51 Lipase 22 U/L (11-82) 02/25/23 20:51 Procalcitonin < 0.05 ng/ml (0-0.5) 03/03/23 08:44 Urine Color Yellow 02/26/23 01:06 Urine Appearance Clear (Clear) 02/26/23 01:06 Urine pH 5.5 (4.5-7.5) 02/26/23 01:06 Ur Specific [place] 1.019 (1.000-1.030) 02/26/23 01:06 Urine Protein 3+ (Negative) H 02/26/23 01:06 Urine Glucose (UA) 3+ (Negative) H 02/26/23 01:06 Urine Ketones Negative (Negative) 02/26/23 01:06 Urine Blood 1+ (Negative) H 02/26/23 01:06 Urine Nitrite Negative (Negative) 02/26/23 01:06 Urine Bilirubin Negative (Negative) 02/26/23 01:06 Urine Urobilinogen Negative (Negative) 02/26/23 01:06 Ur Leukocyte Esterase Negative (Negative) 02/26/23 01:06 Urine WBC (Auto) 1-5 /hpf (0-5) 02/26/23 01:06 Urine RBC (Auto) 0-4 /hpf (0-4) 02/26/23 01:06 U Hyaline Cast (Auto) 0 /lpf (0-5) 02/26/23 01:06 U Epithel Cells (Auto) >30 /lpf (0-5) H 02/26/23 01:06 Urine Bacteria (Auto) Negative (Negative) 02/26/23 01:06 Urine Yeast Budding (None Prsent) A 02/26/23 01:06 Fluid Neutrophils % 4 % 03/01/23 11:30 Fluid Lymphocytes % 58 % 03/01/23 11:30 Fluid [place] % 38 % 03/01/23 11:30 Fluid Comment 03/01/23 11:30 Pleural Fluid Source Left Lung 03/01/23 11:30 Pleural Color Devika 03/01/23 11:30 Pleural Appearance Bloody 03/01/23 11:30 Pleural pH 7.54 (7.3-7.4) H 03/01/23 11:30 Pleural WBC (Auto) 400 /uL 03/01/23 11:30 Pleural RBC (Auto) 80511 /uL 03/01/23 11:30 Pleural Total Protein < 3.0 gm/dl 03/01/23 11:30 Pleural LDH 69 U/L 03/01/23 11:30 Pleural Glucose 111 mg/dl 03/01/23 11:30 Pleural Amylase 13 U/L 03/01/23 11:30 Pleural Cholesterol 22 mg/dL 03/01/23 11:30 Nasal Screen MRSA (PCR) Negative (Negative) 02/26/23 01:06 Urine Opiates Screen Neg (Neg) 02/26/23 01:06 Ur Methadone, Qual Neg (Neg) 02/26/23 01:06 Urine Barbiturates Neg (Neg) 02/26/23 01:06 Ur Phencyclidine (PCP) Neg (Neg) 02/26/23 01:06 U Amphetamin/Meth Scrn Neg (Neg) 02/26/23 01:06 MDMA (Ecstasy) Screen Neg (Neg) 02/26/23 01:06 U Benzodiazepines Scrn Neg (Neg) 02/26/23 01:06 Ur Cocaine Metabolite Neg (Neg) 02/26/23 01:06 U Marijuana (THC) Screen Neg (Neg) 02/26/23 01:06 Adenovirus (PCR) Not Detected (NotDetected) 02/25/23 20:57 B. pertussis DNA (PCR) Not Detected (NotDetected) 02/25/23 20:57 B.parapertussis DNA PCR Not Detected (NotDetected) 02/25/23 20:57 C. pneumoniae DNA (PCR) Not Detected (NotDetected) 02/25/23 20:57 Coronavirus OC43 (PCR) Not Detected (NotDetected) 02/25/23 20:57 Coronavirus HKU1 (PCR) Not Detected (NotDetected) 02/25/23 20:57 Coronavirus 229E (PCR) Not Detected (NotDetected) 02/25/23 20:57 SARS-CoV-2 (PCR) Not Detected (NotDetected) 02/25/23 20:57 Coronavirus NL63 (PCR) Not Detected (NotDetected) 02/25/23 20:57 Human Metapneumovir PCR Not Detected (NotDetected) 02/25/23 20:57 Influenza Type A (PCR) Not Detected (NotDetected) 02/25/23 20:57 Influenza Type B (PCR) Not Detected (NotDetected) 02/25/23 20:57 M. pneumoniae (PCR) Not Detected (NotDetected) 02/25/23 20:57 Parainfluenza 1 (PCR) Not Detected (NotDetected) 02/25/23 20:57 Parainfluenza 2 (PCR) Not Detected (NotDetected) 02/25/23 20:57 Parainfluenza 3 (PCR) Not Detected (NotDetected) 02/25/23 20:57 Parainfluenza 4 (PCR) Not Detected (NotDetected) 02/25/23 20:57 RSV (PCR) Not Detected (NotDetected) 02/25/23 20:57 Entero/Rhino (PCR) Not Detected (NotDetected) 02/25/23 20:57 Impressions Thoracentesis/Paracentesis 03/01/23 08:24 Ultrasound-guided thoracentesis INDICATION: Large left pleural effusion PROCEDURE: Procedure and risks were explained. Informed consent was obtained. A final timeout was completed. The left lateral thorax was prepped and draped in sterile fashion. 1% buffered lidocaine was utilized for skin anesthesia. Utilizing ultrasound guidance, a 5 Afghan safety centesis catheter was advanced into the left pleural effusion. Ultrasound images were obtained. 1000 mL of devika-colored pleural fluid was removed and sent to the lab for analysis. The catheter was removed and Band-Aid applied. The patient tolerated the procedure well. A chest x-ray will be obtained postprocedure. IMPRESSION: Left thoracentesis as above. Performed, dictated, and signed by Nixon Mendiola PA-C; to be co-signed by Dr. Alexi Wu. Electronically signed by: Alexi Wu M.D. 03/01/2023 2:04 PM Chest X-Ray 03/07/23 14:19 XR chest 1V portable CLINICAL HISTORY: follow up CHF TECHNIQUE: Single frontal radiograph of the chest was obtained. Comparison: None available at the time of this dictation. FINDINGS: Median sternotomy wires are unchanged. Cardiomegaly is noted. The lungs are clear. No evidence of pleural effusion or pneumothorax. IMPRESSION: Cardiomegaly without pulmonary edema. ACT 112: Negative or not required by law. Electronically signed by: Johny Ferrer M.D. 03/07/2023 2:47 PM 03/01/23 08:24 IR thoracentesis wo tube US Routine Pending Results Patient Have Any Pending Studies at Discharge: No Discharge Instructions Given to Patient (Per Discharging Provider) Insulin sliding scale: --Goal BSG Range: Low 120 mg/dL, High 160 mg/dL --Correction Factor: 20 mg/dL/unit --Carbohydrate ratio = 4 g/unit --BSGs ACHS if eating, q6h if npo If pt is NPO, do NOT hold correction factor insulin without an order Stocked in [employer] PLEASE REFER TO ACCOMPANYING HOSPITAL DISCHARGE SUMMARY FOR FURTHER DETAILS. Total Time Total Time Spent Total Time Spent (In Minutes): >30 minutes
== END 2023-03-09 13:52 | DRG 280 ==
LOC: ED 20:33 → EDINP 23:18 → SUATTDRO 23:18 → 4W 02-26 02:18 → 2S 03-06 18:53